=== PATIENT | female | born 1955 | race Caucasian/White ===

== ENCOUNTER 2017-04-25 13:59 | Inpatient (IN) | payer BC ==
[~2017-04-25] VITALS: Ht 172.7 cm; Wt 78.7 kg
[2017-04-25] MEDS ORDERED: fentaNYL INJECTION 100 MCG/2 ML AMP ONE ×3 (15:12→20:31)
[2017-04-25 15:17] LABS: BASOPHILS % (AUTO) 0 % (0-10); EOSINOPHILS % (AUTO) 1 % (0-10); LYMPHOCYTES # (AUTO) 1.4 X 10^3 (1.0-4.0); LYMPHOCYTES % (AUTO) 23 % (12-44); MEAN CORPUSCULAR HEMOGLOBIN 30 PG (25-34); MEAN CORPUSCULAR HGB CONC 34 G/DL (32-36); MEAN CORPUSCULAR VOLUME 88 FL (80-99); MEAN PLATELET VOLUME 10.7 FL (7.4-10.4); MONOCYTES # (AUTO) 0.2 X 10^3 (0.0-1.0); MONOCYTES % (AUTO) 4 % (0-12); NEUTROPHILS # (AUTO) 4.6 X 10^3 (1.8-7.8); NEUTROPHILS % (AUTO) 73 % (42-75); PLATELET COUNT 277 10^3/uL (130-400); RED BLOOD COUNT 6.02 10^6/uL (4.35-5.85); WHITE BLOOD COUNT 6.3 10^3/uL (4.3-11.0)
[2017-04-25 15:34] LABS: KETONES,URINE 1+ (NEGATIVE); LEUKOCYTE ESTERASE ,URINE 1+ (NEGATIVE); NITRITE,URINE NEGATIVE (NEGATIVE); PH,URINE 6 (5-9); PROTEIN,URINE 2+ (NEGATIVE); UROBILINOGEN,URINE 4 MG/DL (NORMAL)
[2017-04-25 15:41] LABS: ALANINE AMINOTRANSFERASE 11 U/L (0-55); ALBUMIN 4.1 G/DL (3.2-4.5); ANION GAP 15 MMOL/L (5-14); ASPARTATE AMINO TRANSFERASE 20 U/L (5-34); BILIRUBIN,TOTAL 0.9 MG/DL (0.1-1.0); BLOOD UREA NITROGEN 16 MG/DL (7-18); BUN/CREATININE RATIO 17; CALCIUM 9.7 MG/DL (8.5-10.1); CARBON DIOXIDE 17 MMOL/L (21-32); CHLORIDE 107 MMOL/L (98-107); CREATININE SERUM 0.93 MG/DL (0.60-1.30); GFR ESTIMATED > 60; GLUCOSE 159 MG/DL (70-105); SODIUM 139 MMOL/L (135-145); TOTAL PROTEIN 7.2 G/DL (6.4-8.2)
[2017-04-25 15:42] LABS: POTASSIUM 4.8 MMOL/L (3.6-5.0)
[2017-04-25 15:43] LABS: BILIRUBIN,URINE 1+ (NEGATIVE)
--- NOTE | 2017-04-25 16:38 | Diagnostic Imaging Report ---
INDICATION: Constipation, abdominal pain. FINDINGS: There is stool in the ascending and transverse colon not grossly pathologic. The left colon and rectosigmoid did not show any substantial stool load. There is leftward convexity rotoscoliotic curvature. No acute bony abnormalities. There are clips in the right upper quadrant. No suspicious calculi. IMPRESSION: Proximal colonic stool not convincingly pathologic. No findings of impaction or bowel obstruction. Dictated by: Dictated on workstation # [id number]
[2017-04-25] MEDS ORDERED: ONDANSETRON 4 MG/2 ML (SDV) Z0FRAN IVP ONE (17:30)
[2017-04-25] MEDS ORDERED: MINERAL OIL CONCENTRATE 99.9% 15 ML UDC PO ONE (17:30)
--- NOTE | 2017-04-25 17:30 | ED Abdominal Pain ---
General Chief Complaint: Abdominal/GI Problems Stated Complaint: ABD PAIN Nursing Triage Note: c/o low abd pain. Onset this morning. Pt has not a had a normal BM the last few days. Sepsis Screen: No Definite Risk Source of Information: Patient Exam Limitations: No Limitations (SAM FULTON MD) History of Present Illness Time Seen By Provider: 17:25 Initial Comments The patient is a 61-year-old white female who was brought by family today as she is becoming very anxious over abdominal pain and the lack of bowel movement. She has taken suppositories to aid in bowel habits for years. She does not use narcotics. She has not had a bowel movement in 2 days or more and reports that that one was small at any rate. Her family states that she struggles and struggles and often has a very small bowel movement which is usually followed by a more satisfactory bowel movement. She takes Rythmol to control episodes of SVT. This seems to work better than anything else. She had attempts at ablation several years ago and more than 10 foci of electrical impulses were identified. Timing/Duration: 2-3 Days Severity/Quality: Moderate, Severe, Cramping, Stabbing Location: Generalized Abdomen (SAM FULTON MD) Allergies and Home Medications Allergies Coded Allergies: ciprofloxacin (Verified Allergy, Mild, 04/25/17) lisinopril (Verified Allergy, Mild, 04/25/17) cefuroxime (Verified Allergy, Unknown, 04/25/17) Home Medications Estradiol 1 Mg Tablet, 1 MG PO DAILY, #45 (Reported) Levothyroxine Sodium 75 Mcg Tablet, 75 MCG PO, #30 (Reported) Olmesartan Medoxomil 40 Mg Tablet, 40 MG PO DAILY, (Reported) Propafenone HCl 225 Mg Tablet, 225 MG PO TID, #270 (Reported) Simvastatin 20 Mg Tablet, 20 MG PO DAILY, #30 (Reported) Terazosin HCl 1 Mg Capsule, 1 MG PO DAILY, #30 (Reported) Review of Systems Constitutional: see HPI EENTM: No Symptoms Reported Respiratory: No Symptoms Reported Cardiovascular: Palpitations Gastrointestinal: Abdominal Pain, Constipated Musculoskeletal: no symptoms reported Skin: no symptoms reported Psychiatric/Neurological: No Symptoms Reported (SAM FULTON MD) Past Egvlnsv-Lvtgqt-Aabxai Hx Patient Social History Alcohol Use: Denies Use Recreational Drug Use: No Smoking Status: Unknown if Ever Smoked Recent Foreign Travel: No Contact w/Someone Who Travel: No Recent Infectious Disease Expo: No (SAM FULTON MD) Surgeries HX Surgeries: Yes Surgeries: Abdominal, Appendectomy, Cardiac (ablation for SVT), Gallbladder, Hysterectomy, Orthopedic (thumb release, carpal tunnel), Renal (renal stent), Thyroidectomy (LOUIS MACKEY MD) Cardiovascular Hx Cardiac Disorders: Yes (SVT status post ablation) Cardiac Disorders: Hypertension (LOUIS MACKEY MD) Endocrine Endocrine Disorders: Hypothyroidsim (LOUIS MACKEY MD) Physical Exam Vital Signs VS - Last 72 Hours, by Label 04/25/17 04/25/17 15:00 15:18 Temp 98.2 96.9 Pulse 70 Resp 16 B/P (MAP) 138/96 O2 Delivery Room Air Capillary Refill : Less Than 3 Seconds General Appearance: moderate distress, severe distress HEENT: normal ENT inspection Neck: full range of motion Respiratory: chest non-tender, lungs clear, normal breath sounds, no respiratory distress, no accessory muscle use Cardiovascular: normal peripheral pulses, regular rate, rhythm, no edema, no gallop, no JVD, no murmur Gastrointestinal: other (the patient would only lie on her left side. 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0 10^3/uL Red Blood Count 6.02 H 4.35-5.85 10^6/uL Hemoglobin 17.8 H 11.5-16.0 G/DL Hematocrit 53 H 35-52 % Mean Corpuscular Volume 88 80-99 FL Mean Corpuscular Hemoglobin 30 25-34 PG Mean Corpuscular Hemoglobin Concent 34 32-36 G/DL Red Cell Distribution Width 13.0 10.0-14.5 % Platelet Count 277 130-400 10^3/uL Mean Platelet Volume 10.7 H 7.4-10.4 FL Neutrophils (%) (Auto) 73 42-75 % Lymphocytes (%) (Auto) 23 12-44 % Monocytes (%) (Auto) 4 0-12 % Eosinophils (%) (Auto) 1 0-10 % Basophils (%) (Auto) 0 0-10 % Neutrophils # (Auto) 4.6 1.8-7.8 X 10^3 Lymphocytes # (Auto) 1.4 1.0-4.0 X 10^3 Monocytes # (Auto) 0.2 0.0-1.0 X 10^3 Eosinophils # (Auto) 0.0 0.0-0.3 10^3/uL Basophils # (Auto) 0.0 0.0-0.1 10^3/uL Sodium Level 139 135-145 MMOL/L Potassium Level 4.8 3.6-5.0 MMOL/L Chloride Level 107 98-107 MMOL/L Carbon Dioxide Level 17 L 21-32 MMOL/L Anion Gap 15 H 5-14 MMOL/L Blood Urea Nitrogen 16 7-18 MG/DL Creatinine 0.93 0.60-1.30 MG/DL Estimat Glomerular Filtration Rate > 60 BUN/Creatinine Ratio 17 Glucose Level 159 H 70-105 MG/DL Calcium Level 9.7 8.5-10.1 MG/DL Total Bilirubin 0.9 0.1-1.0 MG/DL Aspartate Amino Transf (AST/SGOT) 20 5-34 U/L Alanine Aminotransferase (ALT/SGPT) 11 0-55 U/L Alkaline Phosphatase 77 40-136 U/L Total Protein 7.2 6.4-8.2 G/DL Albumin 4.1 3.2-4.5 G/DL Urine Color YELLOW Urine Clarity CLEAR Urine pH 6 5-9 Urine Specific [place] 1.025 H 1.016-1.022 Urine Protein 2+ H NEGATIVE Urine Glucose (UA) NEGATIVE NEGATIVE Urine Ketones 1+ H NEGATIVE Urine Nitrite NEGATIVE NEGATIVE Urine Bilirubin 1+ H NEGATIVE Urine Urobilinogen 4 H NORMAL MG/DL Urine Leukocyte Esterase 1+ H NEGATIVE Urine RBC (Auto) 1+ H NEGATIVE Urine RBC NONE /HPF Urine WBC NONE /HPF Urine Squamous Epithelial Cells 2-5 /HPF Urine Crystals NONE /LPF Urine Bacteria TRACE /HPF Urine Casts NONE /LPF Urine Mucus NEGATIVE /LPF Urine Culture Indicated NO My Orders Orders - SAM FULTON MD Cbc With Automated Diff (04/25/17 14:04) Comprehensive Metabolic Panel (04/25/17 14:04) Ua Culture If Indicated (04/25/17 14:04) Fentanyl Injection (Sublimaze Injection (04/25/17 15:12) Abdomen/Kub 1view (04/25/17 16:06) Normal Saline 1l Iv (04/25/17 17:30) Ondansetron Injection (Zofran Injectio (04/25/17 17:30) Mineral Oil Concentrate 99.9% (Mineral O (04/25/17 17:30) Medications Given in ED Current Medications Medications Dose Ordered Sig/Michelle Route Start Time Stop Time Status Last Admin Dose Admin Fentanyl Citrate 100 mcg STK-MED ONCE .ROUTE 04/25/17 15:12 04/25/17 15:16 DC 04/25/17 15:18 100 MCG Vital Signs/I&O Vital Sign - Last 12Hours 04/25/17 04/25/17 15:00 15:18 Temp 98.2 96.9 Pulse 70 Resp 16 B/P (MAP) 138/96 O2 Delivery Room Air Blood Pressure Mean: 110 (SAM FULTON MD) Lab Results Laboratory Tests Test 04/25/17 15:10 04/25/17 15:25 04/25/17 19:27 Range/Units White Blood Count 6.3 4.3-11.0 10^3/uL Red Blood Count 6.02 H 4.35-5.85 10^6/uL Hemoglobin 17.8 H 11.5-16.0 G/DL Hematocrit 53 H 35-52 % Mean Corpuscular Volume 88 80-99 FL Mean Corpuscular Hemoglobin 30 25-34 PG Mean Corpuscular Hemoglobin Concent 34 32-36 G/DL Red Cell Distribution Width 13.0 10.0-14.5 % Platelet Count 277 130-400 10^3/uL Mean Platelet Volume 10.7 H 7.4-10.4 FL Neutrophils (%) (Auto) 73 42-75 % Lymphocytes (%) (Auto) 23 12-44 % Monocytes (%) (Auto) 4 0-12 % Eosinophils (%) (Auto) 1 0-10 % Basophils (%) (Auto) 0 0-10 % Neutrophils # (Auto) 4.6 1.8-7.8 X 10^3 Lymphocytes # (Auto) 1.4 1.0-4.0 X 10^3 Monocytes # (Auto) 0.2 0.0-1.0 X 10^3 Eosinophils # (Auto) 0.0 0.0-0.3 10^3/uL Basophils # (Auto) 0.0 0.0-0.1 10^3/uL Sodium Level 139 135-145 MMOL/L Potassium Level 4.8 3.6-5.0 MMOL/L Chloride Level 107 98-107 MMOL/L Carbon Dioxide Level 17 L 21-32 MMOL/L Anion Gap 15 H 5-14 MMOL/L Blood Urea Nitrogen 16 7-18 MG/DL Creatinine 0.93 0.60-1.30 MG/DL Estimat Glomerular Filtration Rate > 60 BUN/Creatinine Ratio 17 Glucose Level 159 H 70-105 MG/DL Calcium Level 9.7 8.5-10.1 MG/DL Magnesium Level 2.3 1.8-2.4 MG/DL Total Bilirubin 0.9 0.1-1.0 MG/DL Aspartate Amino Transf (AST/SGOT) 20 5-34 U/L Alanine Aminotransferase (ALT/SGPT) 11 0-55 U/L Alkaline Phosphatase 77 40-136 U/L C-Reactive Protein High Sensitivity 0.31 0.00-0.50 MG/DL Total Protein 7.2 6.4-8.2 G/DL Albumin 4.1 3.2-4.5 G/DL Lipase 8 8-78 U/L Urine Color YELLOW Urine Clarity CLEAR Urine pH 6 5-9 Urine Specific [place] 1.025 H 1.016-1.022 Urine Protein 2+ H NEGATIVE Urine Glucose (UA) NEGATIVE NEGATIVE Urine Ketones 1+ H NEGATIVE Urine Nitrite NEGATIVE NEGATIVE Urine Bilirubin 1+ H NEGATIVE Urine Urobilinogen 4 H NORMAL MG/DL Urine Leukocyte Esterase 1+ H NEGATIVE Urine RBC (Auto) 1+ H NEGATIVE Urine RBC NONE /HPF Urine WBC NONE /HPF Urine Squamous Epithelial Cells 2-5 /HPF Urine Crystals NONE /LPF Urine Bacteria TRACE /HPF Urine Casts NONE /LPF Urine Mucus NEGATIVE /LPF Urine Culture Indicated NO My Orders Orders - LOUIS MACKEY MD Fentanyl Injection (Sublimaze Injection (04/25/17 18:30) Fentanyl Injection (Sublimaze Injection (04/25/17 18:24) Ct Abdomen/Pelvis W (04/25/17 18:28) Iohexol Injection (Omnipaque 350 Mg/Ml 1 (04/25/17 18:30) Ns (Ivpb) (Sodium Chloride 0.9% Ivpb Bag (04/25/17 18:30) Hs C Reactive Protein (04/25/17 18:34) Lipase (04/25/17 18:34) Magnesium (04/25/17 18:34) Fentanyl Injection (Sublimaze Injection (04/25/17 19:00) Blood Culture (04/25/17 19:01) Lactic Acid Analyzer (04/25/17 19:01) Levofloxacin 750 Mg/150 Ml Iv (Levaquin (04/25/17 19:15) Metronidazole 500mg/100ml Ivpb (Flagyl 5 (04/25/17 19:15) Hydromorphone Injection (Dilaudid Inject (04/25/17 19:05) Saline Lock/Iv-Start (04/25/17 19:05) Lactated Ringers (Lr 1000 Ml Iv Solution (04/25/17 19:50) Medications Given in ED Current Medications Medications Dose Ordered Sig/Michelle Route Start Time Stop Time Status Last Admin Dose Admin Fentanyl Citrate 50 mcg ONCE ONCE IVP 04/25/17 18:30 04/25/17 18:31 DC 04/25/17 18:32 50 MCG Fentanyl Citrate 50 mcg ONCE ONCE IVP 04/25/17 19:00 04/25/17 19:01 DC 04/25/17 19:00 50 MCG Fentanyl Citrate 100 mcg STK-MED ONCE .ROUTE 04/25/17 15:12 04/25/17 15:16 DC 04/25/17 15:18 100 MCG Iohexol 100 ml ONCE ONCE IV 04/25/17 18:30 04/25/17 18:31 DC 04/25/17 18:57 100 ML Levofloxacin/ Dextrose 150 ml @ 100 mls/hr ONCE ONCE IV 04/25/17 19:15 04/25/17 19:50 DC 04/25/17 19:28 100 MLS/HR Metronidazole 100 ml @ 100 mls/hr ONCE ONCE IV 04/25/17 19:15 04/25/17 19:50 DC 04/25/17 19:22 100 MLS/HR Mineral Oil 30 ml ONCE ONCE PO 04/25/17 17:30 04/25/17 17:31 DC 04/25/17 17:55 30 ML Ondansetron HCl 8 mg ONCE ONCE IVP 04/25/17 17:30 04/25/17 17:31 DC 04/25/17 17:38 8 MG Sodium Chloride 100 ml ONCE ONCE IV 04/25/17 18:30 04/25/17 18:31 DC 04/25/17 18:57 80 ML Vital Signs/I&O Vital Sign - Last 12Hours 04/25/17 04/25/17 04/25/17 04/25/17 15:00 15:18 18:31 18:32 Temp 98.2 96.9 96.9 96.9 Pulse 70 Resp 16 B/P (MAP) 138/96 O2 Delivery Room Air 04/25/17 19:00 Temp 96.9 (LOUIS MACKEY MD) Progress Note #1: Time: 18:30 Progress Note Case reviewed and care of this patient was assumed from Dr. Fulton at this time. Labs and x-rays reviewed. Patient appears hypovolemic based on lab review. IV fluids are infusing. Initial vital signs were normal. WBC is normal and patient is afebrile. Patient is still in significant pain. Narcotics were previously avoided due to suspicion of constipation but are now deemed necessary to control patients pain to make CT imaging tolerable. Patient was re-examined and found to have significant TTP of the lower abdomen, even with light palpation. BS are decreased. Lungs are clear but patient is splinting. CT pending. Fentanyl 50 mcg was ordered to be given before CT. Progress Note #2: Time: 19:[address] scan revealed bowel perforation, possibly at the splenic flexure. Patient has now been treated with fentanyl 150 g and Dilaudid 1 mg. Levaquin and Flagyl have been ordered. Patient has a cephalosporin allergy. A second line has been placed. Dr. Ng has been notified and will present to the emergency room to evaluate the patient. Blood cultures and lactic acid are being drawn. Progress Note #3: Time: 20:[address] Ng is present in the ER with patient now. Patient has developed sinus tachycardia. Additional IV fluids have been ordered. Dr. Ng's plans to take patient emergently to the operating room. He has discussed case with patient and family. He is assuming care at this time. (LOUIS MACKEY MD) ECG Initial ECG Impression Date: April 25, 2017 Initial ECG Impression Time: 19:42 Initial ECG Rate: 134 Initial ECG Rhythm: S.Tach Comment Sinus tachycardia with subtle ST depression. Left anterior fascicular block by automated read. (LOUIS MACKEY MD) Diagnostic Imaging Diagonstic Imaging: Xray Plain Films/CT/US/NM/MRI: abdomen, pelvis Comments KUB viewed by me and report reviewed. See report below: NAME: NAE IBANEZ [facility] REC#: [id number] PT STATUS: REG ER : 1955 PHYSICIAN: SAM FULTON MD ADMIT DATE: 04/25/17/ER Signed Date of Exam:04/25/17 ABDOMEN/KUB 1VIEW INDICATION: Constipation, abdominal pain. FINDINGS: There is stool in the ascending and transverse colon not grossly pathologic. The left colon and rectosigmoid did not show any substantial stool load. There is leftward convexity rotoscoliotic curvature. No acute bony abnormalities. There are clips in the right upper quadrant. No suspicious calculi. IMPRESSION: Proximal colonic stool not convincingly pathologic. No findings of impaction or bowel obstruction. Dictated by: Dictated on workstation # [id number] Dict: 04/25/17 1633 Trans: 04/25/17 1643 [id number] Interpreted by: JOCELINE MEJIA Electronically signed by: JOCELINE MEJIA 04/25/17 1643 Diagonstic Imaging: CT Plain Films/CT/US/NM/MRI: abdomen, pelvis Comments CT scans viewed by me and discussed with radiologist. Report reviewed. See report below: NAME: NAE IBANEZ [facility] REC#: [id number] PT STATUS: REG [facility] [place] : 1955 PHYSICIAN: LOUIS MACKEY MD ADMIT DATE: 04/25/17/[facility] [place] Signed Date of Exam: 04/25/17 CT ABDOMEN/PELVIS W INDICATION: Constipation with severe abdominal pain since yesterday. COMPARISON STUDY: KUB from earlier today. FINDINGS: The examination demonstrates ascites and free air in the abdomen. This appears to be emanating from the region of the splenic flexure of the colon. Bowel wall thickening is seen within the colon and small bowel. This is fairly high density and could also be hemorrhage within the bowel wall. A hiatal hernia is present. Mild atelectasis is present. Gallbladder is absent. No portal venous gas is present. The spleen, pancreas, adrenal glands and kidneys appear normal. Degenerative changes are present in the spine. Urinary bladder is normal. The uterus is absent. No hernia is present. IMPRESSION: Ruptured bowel possibly in the region of the splenic flexure of the colon. Bowel wall thickening is seen within the small and large bowel with questionable hemorrhage in the bowel wall. This could also be due to infection or ischemia. Findings were called to the emergency room physician by Frank Stokes. Dictated by: Dictated on workstation # [id number] Dict: 04/25/171903 Trans: 04/25/172156 Interpreted by: VIC KIDD MD Electronically signed by: VIC KIDD MD 04/25/172156 (LOUIS MACKEY MD) Departure Communication Progress Notes KUB showed no stool in the rectal vault. There was stool noted to the right colon. Chemistries were negative. (SAM FULTON MD) Impression Impression: Primary Impression: Bowel perforation Additional Impressions: Abdominal pain Qualified Codes: R10.84 - Generalized abdominal pain Acute peritonitis Hypovolemia Disposition: ADMITTED INPATIENT Condition: Improved Decision to Admit Reason: Admit from ER (General) Decision to Admit/Date: April 25, 2017 Time/Decision to Admit Time: 19:00 (LOUIS MACKEY MD) Departure-Patient Inst. Referrals: MT REEDER MD (PCP) Primary Care Physician SAM FULTON MD April 25, 2017 17:30 LOUIS MACKEY MD April 25, 2017 18:33
[2017-04-25] MEDS: NS IV 1000 ML 1,000 ML IV SCH (17:39)
[2017-04-25] MEDS ORDERED: NS 100 ML (IVPB) BAG IV ONE (18:30)
[2017-04-25] MEDS ORDERED: fentaNYL INJECTION 100 MCG/2 ML AMP IVP ONE ×2 (18:30→19:00)
[2017-04-25] MEDS ORDERED: IOHEXOL 350 MG/ML 100 ML (OMNIPAQUE 350) VIAL IV ONE (18:30)
[2017-04-25 18:52] LABS: MAGNESIUM 2.3 MG/DL (1.8-2.4); hs C REACTIVE PROTEIN 0.31 MG/DL (0.00-0.50)
[2017-04-25] MEDS ORDERED: HYDROmorphone (DILAUDID) 2 MG/ML VIAL IVP STA (19:05)
[2017-04-25] MEDS ORDERED: LEVOFLOXACIN 750 MG/150 ML IV 150 ML IV ONE (19:15)
[2017-04-25] MEDS ORDERED: metroNIDAZOLE 500MG/100ML IVPB 100 ML IV ONE ×2 (19:15→22:45)
--- NOTE | 2017-04-25 19:16 | Diagnostic Imaging Report ---
INDICATION: Constipation with severe abdominal pain since yesterday. COMPARISON STUDY: KUB from earlier today. FINDINGS: The examination demonstrates ascites and free air in the abdomen. This appears to be emanating from the region of the splenic flexure of the colon. Bowel wall thickening is seen within the colon and small bowel. This is fairly high density and could also be hemorrhage within the bowel wall. A hiatal hernia is present. Mild atelectasis is present. Gallbladder is absent. No portal venous gas is present. The spleen, pancreas, adrenal glands and kidneys appear normal. Degenerative changes are present in the spine. Urinary bladder is normal. The uterus is absent. No hernia is present. IMPRESSION: Ruptured bowel possibly in the region of the splenic flexure of the colon. Bowel wall thickening is seen within the small and large bowel with questionable hemorrhage in the bowel wall. This could also be due to infection or ischemia. Findings were called to the emergency room physician by Frank Stokes. Dictated by: Dictated on workstation # [id number]
[2017-04-25] MEDS ORDERED: LACTATED RINGERS 1,000 ML IV ONE ×4 (19:50→21:27)
--- NOTE | 2017-04-25 20:05 | History & Physicial ---
History of Present Illness History of Present Illness Reason for visit/HPI L sided abdominal pain for 3 days, more severe today. Exam and CT show diffuse peritonitis, possibly due to colonic perforation Date of Admission I consulted on this patient on 04/25/17 20:00 Attending Physician Admitting Physician Mike Horvath MD Consult Allergies and Home Medications Allergies Coded Allergies: cefuroxime (Verified Allergy, Unknown, 04/25/17) Past Lobscng-Kcquky-Mfpmqu Hx Patient Social History Marrital Status: Employed/Student: retired Alcohol Use: Denies Use Recreational Drug Use: No Smoking Status: Unknown if Ever Smoked Recent Foreign Travel: No Contact w/other who traveled: No Recent Infectious Disease Expo: No Surgeries Surgeries: Cardiac, Gallbladder, Hysterectomy, Thyroidectomy Respiratory Hx Respiratory Disorders: No Cardiovascular Hx Cardiovascular Disorders: Yes Cardiac Disorders: Atrial Fibrillation, High Cholesterol, Hypertension, Irregular Heartbeat, Palpitations Neurological Hx Neurological Disorders: No Reproductive System : No Genitourinary Hx Genitourinary Disorders: No Musculoskeletal Hx Musculoskeletal Disorders: Yes Cancer Hx Cancer: No Psychosocial Hx Psychiatric Problems: No Constitutional: chills, malaise, weakness EENTM: no symptoms reported Respiratory: no symptoms reported Cardiovascular: palpitations Gastrointestinal: LLQ, abdominal pain (LLQ), constipation Genitourinary: no symptoms reported : No Musculoskeletal: no symptoms reported Skin: no symptoms reported Psychiatric/Neurological: No Symptoms Reported Physical Exam Vital Signs Vital Sign - Last 12Hours 04/25/17 15:00 Temp 98.2 Pulse 70 Resp 16 B/P (MAP) 138/96 O2 Delivery Room Air Capillary Refill : Less Than 3 Seconds General Appearance: Severe Distress HEENT: Normal ENT Inspection Neck: Normal Inspection Respiratory: Lungs Clear Cardiovascular: Tachycardia Gastrointestinal: Distended, Rebound, Tenderness Rectal: Deferred Back: Normal Inspection Neurologic/Psychiatric: Disoriented x3 Skin: Cool Lymphatic: No Adenopathy Comments Lower midline scar. Diffuse tenderness due to perforation peritonitis Assessment/Plan Assessment and Plan Perforation peritonitis, possibly colonic. For prompt laparoscopic resection with central line placement. Post-op ventilatory support anticipated. Risk of mortality highlighted as well. Problems: MACY TALAVERA MD April 25, 2017 20:05
--- NOTE | 2017-04-25 20:08 | Progress Note-Pre Operative ---
Pre-Operative Progress Note H&P Reviewed The H&P was reviewed, patient examined and no changes noted. Date H&P Reviewed: April 25, 2017 Time H&P Reviewed: 20:08 Pre-Operative Diagnosis: Peritonitis due to perforated hollow viscus MACY TALAVERA MD April 25, 2017 20:08
[2017-04-25] MEDS ORDERED: SIMV20TA3 PO (20:27)
[2017-04-25] MEDS ORDERED: OLME40TA12 PO (20:27)
[2017-04-25] MEDS ORDERED: ESTR1TAB24 PO (20:27)
[2017-04-25] MEDS ORDERED: PROP225T2 PO (20:27)
[2017-04-25] MEDS ORDERED: TERA1CAP3 PO (20:27)
[2017-04-25] MEDS ORDERED: LEVO75TA6 PO (20:27)
[2017-04-25] MEDS ORDERED: SUCCINYLCHOLINE INJ 100 MG/5 ML SYR ONE (20:31)
[2017-04-25] MEDS ORDERED: ROCURONIUM 50 MG/5 ML (ZEMURON) VIAL IV ONE ×2 (20:31→23:34)
[2017-04-25] MEDS ORDERED: SEVOFLURANE (ULTANE) 15 ML INHAL SOLN ONE ×10 (20:31→23:32)
[2017-04-25] MEDS ORDERED: proPOfol 200 MG/20 ML (DIPRIVAN) VIAL IV ONE (20:31)
[2017-04-25] MEDS ORDERED: MIDAZOLAM 2 MG/2 ML (VERSED) VIAL ONE (20:31)
[2017-04-25] MEDS ORDERED: LIDOCAINE PF 2% 10 ML (XYLOCAINE) AMP ONE (20:31)
[2017-04-25] MEDS ORDERED: HEParin (CENTRAL IV FLUSH) 500 UNIT/5 ML SYR ONE (20:34)
[2017-04-25] MEDS ORDERED: BUP/EPI 0.25% 1:200,000 (MARCAINE) 30 ML VIAL ONE (20:34)
[2017-04-25] MEDS: LACTATED RINGERS 1,000 ML IV PRN ×10 (20:45→23:37)
[2017-04-25] MEDS ORDERED: PHENYLEPHRINE 100 MCG/ML 10 ML (ANESTHESIA) SYR ONE (20:55)
[2017-04-25] MEDS ORDERED: NS IV 500 ML 500 ML ONE ×2 (21:27→23:28)
[2017-04-25] MEDS ORDERED: MEPERIDINE (DEMEROL) INJ 50 MG/ML ONE (21:48)
[2017-04-25] MEDS ORDERED: morphine INJ 10 MG/ML 1ML (SYR OR VIAL) ONE (21:48)
[2017-04-25] MEDS ORDERED: DOPamine DRIP 250 ML IV ONE (22:31)
[2017-04-25] MEDS ORDERED: DOBUTamine DRIP 250 ML IV ONE (22:31)
[2017-04-25] MEDS ORDERED: ALBUMIN 25% 25 GM/100 ML 100 ML IV ONE (22:33)
[2017-04-25] MEDS ORDERED: CLINDAMYCIN 600 MG/4ML (CLEOCIN) VIAL ONE (22:42)
[2017-04-25] MEDS ORDERED: metroNIDAZOLE 500MG/100ML IVPB 100 ML ONE (22:42)
[2017-04-25] MEDS ORDERED: CLINDAMYCIN 600 MG/4ML (CLEOCIN) VIAL IV ONE (22:45)
[2017-04-25] MEDS ORDERED: PHENYLEPHRINE INJ 10 MG/ML (NEO-SYNEPHRINE 1%) ONE (23:28)
--- NOTE | 2017-04-25 23:31 | Progress Note-Post Operative ---
Post-Operative Progess Note Surgeon (s)/Colorer (s) Surgeon MACY TALAVERA MD Colorer: Not applicable Pre-Operative Diagnosis Peritonitis due to perforated hollow viscus Post-Operative Diagnosis 1.Sigmoid colon perforation 2. Fecal peritonitis Procedure & Operative Findings Date of Procedure 04/25/17 Procedure Performed/Findings Central line placement under ultrasound guidance Laparoscopic Sim's procedure lAPAROSCOPIC MOBILIZATION OF splenic flexure Anesthesia Type Gen. Estimated Blood Loss Estimated blood loss (mL): 50 mL Specimens/Packing Specimens Removed perforated sigmoid colon MACY TALAVERA MD April 25, 2017 11:31 pm
[2017-04-25] MEDS ORDERED: ONDANSETRON 4 MG/2 ML (SDV) Z0FRAN IVP PRN (23:45)
[2017-04-25 23:50] VITALS: BP 113/40
[2017-04-26] VITALS (84 sets, daily range): BP systolic 83–173; BP diastolic 38–76
[2017-04-26] MEDS ORDERED: DOPamine DRIP 250 ML IV SCH
[2017-04-26] MEDS ORDERED: NS IV 500 ML 500 ML ONE (00:34)
[2017-04-26] MEDS: NS IV 1000 ML 1,000 ML IV SCH (01:00)
[2017-04-26 01:23] LABS: ABG BASE EXCESS -11.5 MMOL/L (-2.5-2.5); ABG OXYGEN SATURATION 92 % (94-100); ABG PCO2 51 MMHG (35-45); ABG PO2 68 MMHG (79-93); ABG TCO2 18.1 MMOL/L (21.0-31.0)
[2017-04-26 01:25] LABS: ALLENS TEST ART LINE
[2017-04-26 01:27] LABS: ABG PH 7.12 (7.37-7.43)
[2017-04-26 02:22] LABS: BASOPHILS % (AUTO) 0 % (0-10); EOSINOPHILS % (AUTO) 2 % (0-10); LYMPHOCYTES # (AUTO) 0.5 X 10^3 (1.0-4.0); LYMPHOCYTES % (AUTO) 35 % (12-44); MEAN CORPUSCULAR HEMOGLOBIN 29 PG (25-34); MEAN CORPUSCULAR HGB CONC 33 G/DL (32-36); MEAN CORPUSCULAR VOLUME 89 FL (80-99); MEAN PLATELET VOLUME 10.3 FL (7.4-10.4); MONOCYTES # (AUTO) 0.1 X 10^3 (0.0-1.0); MONOCYTES % (AUTO) 8 % (0-12); NEUTROPHILS # (AUTO) 0.8 X 10^3 (1.8-7.8); NEUTROPHILS % (AUTO) 55 % (42-75); PLATELET COUNT 219 10^3/uL (130-400); RED BLOOD COUNT 4.43 10^6/uL (4.35-5.85); RED CELL DISTRIBUTION WIDTH 12.5 % (10.0-14.5); WHITE BLOOD COUNT 1.5 10^3/uL (4.3-11.0)
[2017-04-26 02:49] LABS: ALANINE AMINOTRANSFERASE 15 U/L (0-55); ALBUMIN 2.2 G/DL (3.2-4.5); ANION GAP 10 MMOL/L (5-14); ASPARTATE AMINO TRANSFERASE 18 U/L (5-34); BILIRUBIN,TOTAL 0.7 MG/DL (0.1-1.0); BLOOD UREA NITROGEN 16 MG/DL (7-18); BUN/CREATININE RATIO 21; CALCIUM 7.6 MG/DL (8.5-10.1); CARBON DIOXIDE 14 MMOL/L (21-32); CHLORIDE 112 MMOL/L (98-107); CREATININE SERUM 0.75 MG/DL (0.60-1.30); GFR ESTIMATED > 60; GLUCOSE 149 MG/DL (70-105); PHOSPHORUS 2.1 MG/DL (2.3-4.7); SODIUM 136 MMOL/L (135-145); TOTAL PROTEIN 3.1 G/DL (6.4-8.2)
[2017-04-26 02:51] LABS: MAGNESIUM 0.9 MG/DL (1.8-2.4)
[2017-04-26 03:06] LABS: ABG BASE EXCESS -9.7 MMOL/L (-2.5-2.5); ABG OXYGEN SATURATION 93 % (94-100); ABG PCO2 41 MMHG (35-45); ABG PO2 68 MMHG (79-93); ABG TCO2 17.9 MMOL/L (21.0-31.0)
[2017-04-26 03:07] LABS: ALLENS TEST ART LINE; PATIENT TEMP 97.6
[2017-04-26 03:09] LABS: ABG HCO3 17 MMOL/L (23-27); ABG PH 7.23 (7.37-7.43)
[2017-04-26 03:11] LABS: ABG HCO3 16 MMOL/L (23-27)
[2017-04-26] MEDS ORDERED: POTASSIUM CL 10MEQ/50ML IVPB 250 ML IV ONE (03:18)
[2017-04-26] MEDS ORDERED: MAGNESIUM 1 GM/100 ML IVPB 400 ML IV ONE (03:18)
[2017-04-26] MEDS ORDERED: POTASSIUM CL 10MEQ/50ML IVPB 50 ML IV ONE (03:30)
[2017-04-26] MEDS: fentaNYL INJECTION 100 MCG/2 ML AMP IV PRN ×9 (03:34→21:50)
[2017-04-26] MEDS: POTASSIUM CL 10MEQ/50ML IVPB 50 ML IV SCH ×5 (03:38→06:36)
[2017-04-26] MEDS: MAGNESIUM 1 GM/100 ML IVPB 100 ML IV SCH ×7 (03:38→08:57)
[2017-04-26] MEDS: LACTATED RINGERS 1,000 ML IV PRN ×4 (04:37→16:22)
--- NOTE | 2017-04-26 04:55 | OPERATIVE REPORT ---
DATE OF SERVICE: 04/25/2017 PREOPERATIVE DIAGNOSIS: Pneumoperitoneum due to perforated hollow viscus. POSTOPERATIVE DIAGNOSES: 1. Sigmoid colon perforation. 2. Fecal peritonitis. OPERATION: 1. Ultrasound localization of right internal jugular vein. 2. Central venous catheter placement. 3. Laparoscopic Sim's procedure with end colostomy. 4. Laparoscopic mobilization of splenic flexure. SURGEON: Dr. Cyrus Talavera. ANESTHESIA: General anesthesia. ESTIMATED BLOOD LOSS: 50 mL. FLUIDS: 8 L of crystalloids and 100 mL of albumin. TYPE OF WOUND: Type 4 (dirty wound). INDICATION FOR PROCEDURE: This lady presented with an acute abdomen and was found to have pneumoperitoneum. CT scan was suggestive of perforated sigmoid colon. Following resuscitation, she was offered laparoscopic exploration with a view to addressing the offending segment of perforation. The possibility of creating a colostomy, postoperative ventilatory support, renal failure and a distinct possibility of postoperative mortality were discussed with her and her family members. Informed consent was obtained. DESCRIPTION OF PROCEDURE: The patient was brought to the operating room and general anesthesia induced using an endotracheal tube. She had received Levaquin and Flagyl during the hour preceding surgery, in the emergency room. As the operation got underway, we administered 600 mg of clindamycin and another dose of Flagyl intravenously. Sequential compression device was replaced around her legs, to minimize the risk of venous thrombosis. A Reynolds catheter was placed to monitor urine output during the perioperative period. 1. Central line placement. Right side of the neck was prepared and draped in usual sterile manner. Internal jugular vein was localized using a 10 MHz ultrasound probe and a floppy guidewire introduced into the heart. The subcutaneous tract was gently dilated using a Silastic sheath and a 16 cm long, 7.5 Moldovan, triple-lumen central venous catheter advanced using Seldinger technique. All the channels were aspirated and flushed with heparinized saline. The catheter was then secured using a silk suture and a dressing applied. 2. Laparoscopic Sim's procedure/laparoscopic mobilization of splenic flexure. Abdomen was prepared and draped in the usual sterile manner. A 7 cm incision was made centered on the umbilicus and the fascia incised vertically. Fecal material was encountered. In addition, multiple fecal balls were found along the left paracolic gutter and the pelvis. These were removed manually. Abdominal cavity was irrigated initially with 4 liters of warm saline. Subsequently, a GelPort hand assist device was placed and pneumoperitoneum established using carbon dioxide insufflation to an intraabdominal pressure of 15 mmHg. Two 5 mm trocars were placed over the right side of the abdomen, followed by another 5 mm trocar over the left lower quadrant. Omentum adherent to the undersurface of the previous scar from hysterectomy and the pelvis was taken down using harmonic scalpel, under direct view. Further examination confirmed a large perforation measuring at least 8 cm in diameter involving the distal sigmoid colon. Using a hand assist technique, sigmoid colon was mobilized using harmonic scalpel, continuing along the white line of Toldt along the descending colon, all the way around the splenic flexure. The rectosigmoid junction was then transected using an Endo HEMA, 3.5 mm stapler. Mesocolon was controlled using harmonic scalpel. Once adequate mobilization was achieved, a circular incision was made over the left lower quadrant and the bowel exteriorized. It was gently sutured to the abdominal wall to be fashioned as an end colostomy at the end of the operation. Abdominal cavity was thoroughly irrigated with a total of 10 liters of warm saline. The fascia over the midline incision was closed using #2 Prolene. Subcutaneous tissue and skin were left open in anticipation of wound infection. Two 19-Moldovan Miguel Hernandez drains were left in the pelvis and over the right subdiaphragmatic space respectively. These were secured using 2-0 silk sutures. Sigmoid colon with the perforation was excised and sent for histological examination. The descending colon was then secured to the abdominal wall using 3-0 Vicryl sutures, fashioning an end colostomy. A collection device was then placed. Trocar incisions were closed using jaz. She tolerated the procedure reasonably well, requiring vasopressors. Subsequently, she was taken to the intensive care unit in an intubated, stable condition. [place], sponges and instruments were correct at the end of the operation. Job ID: [id number] DocumentID: [id number] Dictated Date: 04/25/2017 23:39:02 Ship Rigger Apprentice Date: 04/26/2017 02:49:18 Dictated By: CYRUS TALAVERA MD [facility]
[2017-04-26] MEDS: PROPOFOL DRIP (ICU) 100 ML IV SCH ×3 (04:56→21:09)
[2017-04-26] MEDS: KCL 20 MEQ TAB (K-DUR) PO SCH (04:57)
[2017-04-26] MEDS ORDERED: D5W 250 ML (IVPB) 250 ML IV ONE (05:34)
[2017-04-26] MEDS ORDERED: NOREPINEPHRINE 4 MG/4 ML (LEVOPHED) AMP IV ONE (05:34)
[2017-04-26] MEDS: NOREPINEPHRINE 4 MG in D5W 250 ML (IVPB) 250 ML IV SCH ×4 (05:46→14:53)
[2017-04-26] MEDS ORDERED: CLINDAMYCIN INJECTION 600 MG in NS (IVPB) 50 ML IV SCH (06:00)
[2017-04-26] MEDS ORDERED: metroNIDAZOLE 500MG/100ML IVPB 100 ML IV SCH (06:00)
[2017-04-26] MEDS ORDERED: PHENYLEPHRINE INJ 10 MG/ML (NEO-SYNEPHRINE 1%) ONE (07:10)
[2017-04-26] MEDS ORDERED: ONDANSETRON 4 MG/2 ML (SDV) Z0FRAN ONE (07:12)
[2017-04-26] MEDS ORDERED: DEXAMETHASONE PF 10 MG/ML (DECADRON) VIAL ONE (07:12)
[2017-04-26] MEDS ORDERED: CLINDAMYCIN 600 MG/4ML (CLEOCIN) VIAL ONE (07:30)
--- NOTE | 2017-04-26 07:39 | Diagnostic Imaging Report ---
Indication: Intubation. Comparison: None available. Findings: ET tube has tip approximately 2 cm above the guera. Enteric tube has tip terminating in proximal stomach. Proximal sidehole is also within the stomach. Right IJ central venous catheter has tip in the lower SVC. Bilateral perihilar and basilar ill-defined airspace opacities with central vascular indistinctness. Cardiomegaly with probable small bilateral layering pleural effusions. No pneumothorax. Impression: 1. Support devices in satisfactory position. 2. Cardiomegaly with probable pulmonary edema and small bilateral pleural effusions. Dictated by: Dictated on workstation # [id number]
[2017-04-26] MEDS: NS IV SCH ×3 (07:59→12:00)
[2017-04-26] MEDS: PHENYLEPHRINE IV SCH ×3 (07:59→12:00)
[2017-04-26] MEDS: PANTOPRAZOLE 40 MG/10 ML (PROTONIX) VIAL IVP SCH (08:07)
--- NOTE | 2017-04-26 09:21 | Progress Note-Standard ---
Standard Progress Note Progress Notes/Assess & Plan Progress/Assessment & Plan 04/26/17:septic with severe leukopenia. Very poor urine output. On dual vasopressors. Sinus tachycardia. Outcome poor with expected mortality. Central venous pressure around 12. We'll continue to provide fluid resuscitation and maintain vasopressors for now. Final Diagnosis fecal peritonitis due to sigmoid perforation. MACY TALAVERA MD April 26, 2017 09:21
[2017-04-26] MEDS ORDERED: ALBUMIN 25% 25 GM/100 ML 100 ML IV ONE (10:00)
[2017-04-26] MEDS: LACTATED RINGERS 1,000 ML IV SCH ×3 (10:03→20:52)
[2017-04-26] MEDS ORDERED: ALBUMIN 25% 25 GM/100 ML 100 ML IV NR (10:09)
[2017-04-26] MEDS: LEVOTHYROXINE 100 MCG INJ (SYNTHROID) VIAL IV SCH (10:30)
--- NOTE | 2017-04-26 10:39 | Consultation-Cardiology ---
HPI-Cardiology Cardiology Consultation: Date of Consultation 04/26/17 Date of Admission Attending Physician Cyrus Ng MD Admitting Physician Mike Horvath MD Consulting Physician Darshana FOOTE MD HPI: Chief Complaint: History of SVT This is a 61-year-old lady who presented with large bowel perforation, peritonitis and severe septic shock. Emergent surgery was performed yesterday by Dr. Ng. Patient has severe sepsis and is on broad-spectrum antibiotics as well as numerous vasopressors. Blood pressure is still hypotensive. She has sinus tachycardia. She is intubated and ventilated. Patient has history of SVT and was on propafenone as an outpatient. Review of Systems-Cardiology Review of Systems Constitutional: As described under HPI Eyes: As described under HPI Ears/Nose/Throat: As described under HPI Respiratory: As described under HPI Cardiovascular: As described under HPI Gastrointestinal: abdomen distended, abdominal pain Genitourinary: No no symptoms reported, No As described under HPI, No burning, No dysuria, No discharge, No frequency, No flank pain, No hematuria, No incontinence, No pain, No urgency, No other, No urine frequency changes, No urine coloration changes : No Musculoskeletal: No no symptoms reported, No As describe under HPI, No back pain, No gout, No joint pain, No joint swelling, No muscle pain, No muscle stiffness, No neck pain, No other APV-[id number]-Ytxycs Hx Patient Social History Marrital Status: Employed/Student: retired Alcohol Use: Denies Use Recreational Drug Use: No Smoking Status: Unknown if Ever Smoked Recent Foreign Travel: No Recent Infectious Disease Expo: No Physical Abuse Screen: No Sexual Abuse: No Past Medical History PMH As described under Assessment. Allergies and Home Medications Allergies Coded Allergies: ciprofloxacin (Verified Allergy, Mild, 04/25/17) lisinopril (Verified Allergy, Mild, 04/25/17) cefuroxime (Verified Allergy, Unknown, 04/25/17) Home Medications Estradiol 1 Mg Tablet, 1 MG PO DAILY, #45 (Reported) Levothyroxine Sodium 75 Mcg Tablet, 75 MCG PO, #30 (Reported) Olmesartan Medoxomil 40 Mg Tablet, 40 MG PO DAILY, (Reported) Propafenone HCl 225 Mg Tablet, 225 MG PO TID, #270 (Reported) Simvastatin 20 Mg Tablet, 20 MG PO DAILY, #30 (Reported) Terazosin HCl 1 Mg Capsule, 1 MG PO DAILY, #30 (Reported) Physical Exam-Cardiology Physical Exam Vital Signs/I&O Vital Sign - Last 12Hours 04/26/17 04/26/17 04/26/17 04/26/17 01:00 01:00 01:15 01:30 Pulse 132 132 131 137 Resp 14 15 15 B/P (MAP) 106/50 106/52 126/58 117/47 119/50 131/59 Pulse Ox 95 94 94 O2 Flow Rate 75.00 75.00 75.00 04/26/17 04/26/17 04/26/17 04/26/17 01:45 01:53 02:00 02:15 Pulse 125 126 120 108 Resp 14 16 19 19 B/P (MAP) 100/51 109/53 115/59 106/57 105/57 Pulse Ox 93 94 93 95 O2 Flow Rate 75.00 75.00 75.00 FiO2 75 04/26/17 04/26/17 04/26/17 04/26/17 02:30 02:45 03:00 03:15 Pulse 107 110 117 117 Resp 20 22 B/P (MAP) 118/53 141/58 157/61 110/60 117/64 140/67 133/63 Pulse Ox 97 97 99 96 O2 Flow Rate 75.00 75.00 75.00 75.00 04/26/17 04/26/17 04/26/17 04/26/17 03:30 03:45 03:51 04:00 Temp 97.6 Pulse 118 121 120 Resp 24 B/P (MAP) 138/53 122/52 116/47 112/64 95/59 107/54 Pulse Ox 94 94 92 O2 Flow Rate 75.00 75.00 75.00 FiO2 75 04/26/17 04/26/17 04/26/17 04/26/17 04:15 04:19 04:30 04:45 Pulse 122 129 117 116 Resp 25 B/P (MAP) 110/46 91/44 106/47 102/53 100/54 Pulse Ox 92 91 100 100 O2 Flow Rate 75.00 75.00 75.00 FiO2 75 04/26/17 04/26/17 04/26/17 04/26/17 04:56 05:00 05:03 05:07 Pulse 113 111 128 Resp 22 B/P (MAP) 84/44 105/48 84/47 Pulse Ox 100 O2 Flow Rate 75.00 04/26/17 04/26/17 04/26/17 04/26/17 05:15 05:30 05:45 06:00 Pulse 133 120 117 112 Resp B/P (MAP) 105/52 109/52 112/56 118/54 91/45 115/55 107/55 Pulse Ox 100 100 100 100 O2 Flow Rate 75.00 75.00 75.00 75.00 04/26/17 04/26/17 04/26/17 04/26/17 06:15 06:30 06:45 06:52 Pulse 111 108 105 109 Resp B/P (MAP) 95/51 86/46 92/50 94/50 98/52 Pulse Ox 100 100 100 100 O2 Flow Rate 75.00 75.00 75.00 FiO2 75 04/26/17 04/26/17 04/26/17 04/26/17 07:00 07:00 07:15 07:30 Pulse 110 108 111 112 Resp 30 31 B/P (MAP) 109/54 84/49 95/48 Pulse Ox 100 99 100 O2 Flow Rate 75.00 75.00 75.00 04/26/17 04/26/17 04/26/17 04/26/17 07:45 08:00 08:00 08:01 Temp 98.2 Pulse 114 116 115 Resp 31 32 31 B/P (MAP) 83/45 90/51 99/62 Pulse Ox 100 99 99 100 O2 Flow Rate 75.00 60.00 FiO2 60 60 04/26/17 04/26/17 04/26/17 04/26/17 08:15 08:30 08:45 09:00 Pulse 116 118 112 114 Resp 32 31 32 37 B/P (MAP) 102/52 104/53 95/49 108/52 Pulse Ox 100 99 100 98 O2 Flow Rate 60.00 60.00 60.00 60.00 04/26/17 04/26/17 04/26/17 04/26/17 09:15 09:30 10:00 10:15 Pulse 112 112 112 106 Resp 32 31 32 34 B/P (MAP) 94/51 87/49 83/52 Pulse Ox 100 100 96 95 O2 Flow Rate 60.00 60.00 60.00 FiO2 60 04/26/17 04/26/17 04/26/17 04/26/17 10:30 11:00 11:25 11:25 Temp 99.0 Pulse 116 121 Resp 35 33 B/P (MAP) 100/53 102/55 Pulse Ox 94 98 97 O2 Flow Rate 60.00 60.00 FiO2 60 04/26/17 04/26/17 04/26/17 04/26/17 11:30 12:00 12:09 12:30 Pulse 120 121 123 122 Resp 34 41 32 35 B/P (MAP) 111/53 134/59 106/51 Pulse Ox 98 99 100 99 O2 Flow Rate 60.00 60.00 60.00 FiO2 60 Intake and Output 04/25/17 23:59 Intake Total 35045 ml Balance 59290 ml Capillary Refill : Less Than 3 Seconds Constitutional: other (Intubated and ventilated) HEENT: No PERRL, No normal ENT inspection, No TMs normal, No pharynx normal, No scleral icterus (R), No scleral icterus (L), No pale conjunctivae (R), No pale conjunctivae (L), No photophobia, No TM abnormal (R), No TM abnormal (L), No pharyngeal erythema, No tonsillar exudate, No other, No discharge, No EOMI, No hearing is well preserved, No hard of hearing, No oral hygience is good, No ulceration, No xanthelasmas are seen Neck: No non-tender, No full range of motion, No supple, No normal inspection, No carotid bruit, No limited range of motion, No lymphadenopathy (R), No lymphadenopathy (L), No tender lateral, No tender midline, No thyromegaly, No other, No carotid pulses are 2 + bilaterally, No with good upstrokes Respiratory: other (Bilateral air entry) Cardiovascular: tachycardia, S1 and S2, other (No murmur) Gastrointestinal: other (Recent abdominal surgery) Rectal: deferred, other Extremities: no lower extremity edema bilateral Neurologic/Psychiatric: other (Intubated ventilated) Skin: No normal color, No warm/dry, No cyanosis, No cool, No diaphoresis, No damp, No ecchymosis, No jaundice, No mottled, No pallor, No rash, No tattoos/ piercings, No ulcerations, No rash on exposed areas, No ulcerations on exposed areas, No other Lymphatic: no adenopathy Data Review Labs Laboratory Tests 04/25/17 15:10: White Blood Count 6.3, Red Blood Count 6.02H, Hemoglobin 17.8H, Hematocrit 53H, Mean Corpuscular Volume 88, Mean Corpuscular Hemoglobin 30, Mean Corpuscular Hemoglobin Concent 34, Red Cell Distribution Width 13.0, Platelet Count 277, Mean Platelet Volume 10.7H, Neutrophils (%) (Auto) 73, Lymphocytes (%) (Auto) 23 , Monocytes (%) (Auto) 4, Eosinophils (%) (Auto) 1, Basophils (%) (Auto) 0, Neutrophils # (Auto) 4.6, Lymphocytes # (Auto) 1.4, Monocytes # (Auto) 0.2, Eosinophils # (Auto) 0.0, Basophils # (Auto) 0.0, Sodium Level 139, Potassium Level 4.8, Chloride Level 107, Carbon Dioxide Level 17L, Anion Gap 15H, Blood Urea Nitrogen 16, Creatinine 0.93, Estimat Glomerular Filtration Rate > 60, BUN/ Creatinine Ratio 17, Glucose Level 159H, Calcium Level 9.7, Magnesium Level 2.3 , Total Bilirubin 0.9, Aspartate Amino Transf (AST/SGOT) 20, Alanine Aminotransferase (ALT/SGPT) 11, Alkaline Phosphatase 77, C-Reactive Protein High Sensitivity 0.31, Total Protein 7.2, Albumin 4.1, Lipase 8, Free Thyroxine 1.07, TSH Marshall Testing 0.20L 04/25/17 15:25: Urine Color YELLOW, Urine Clarity CLEAR, Urine pH 6, Urine Specific [place] 1.025H, Urine Protein 2+H, Urine Glucose (UA) NEGATIVE, Urine Ketones 1+H, Urine Nitrite NEGATIVE, Urine Bilirubin 1+H, Urine Urobilinogen 4H, Urine Leukocyte Esterase 1+H, Urine RBC (Auto) 1+H, Urine RBC NONE, Urine WBC NONE, Urine Squamous Epithelial Cells 2-5, Urine Crystals NONE, Urine Bacteria TRACE, Urine Casts NONE, Urine Mucus NEGATIVE, Urine Culture Indicated NO 04/26/17 01:10: Blood Gas Puncture Site Liu SANCHEZ, Blood Gas Patient Temperature 96.0, Arterial Blood pH 7.12*L, Arterial Blood Partial Pressure CO2 51H, Arterial Blood Partial Pressure O2 68L, Arterial Blood HCO3 16*L, Arterial Blood Total CO2 18.1L, Arterial Blood Oxygen Saturation 92L, Arterial Blood Base Excess - 11.5L, Brannon Test ART LINE, Blood Gas Ventilator Setting YES, Blood Gas Inspired Oxygen 75%, Lactic Acid Level 7.14*H 04/26/17 02:15: White Blood Count 1.5L, Red Blood Count 4.43, Hemoglobin 13.0#, Hematocrit 40, Mean Corpuscular Volume 89, Mean Corpuscular Hemoglobin 29, Mean Corpuscular Hemoglobin Concent 33, Red Cell Distribution Width 12.5, Platelet Count 219, Mean Platelet Volume 10.3, Neutrophils (%) (Auto) 55, Lymphocytes (%) (Auto) 35 , Monocytes (%) (Auto) 8, Eosinophils (%) (Auto) 2, Basophils (%) (Auto) 0, Neutrophils # (Auto) 0.8L, Lymphocytes # (Auto) 0.5L, Monocytes # (Auto) 0.1, Eosinophils # (Auto) 0.0, Basophils # (Auto) 0.0, Sodium Level 136, Potassium Level 3.0L, Chloride Level 112H, Carbon Dioxide Level 14L, Anion Gap 10, Blood Urea Nitrogen 16, Creatinine 0.75, Estimat Glomerular Filtration Rate > 60, BUN/ Creatinine Ratio 21, Glucose Level 149H, Calcium Level 7.6L, Magnesium Level 0.9 *L, Total Bilirubin 0.7, Aspartate Amino Transf (AST/SGOT) 18, Alanine Aminotransferase (ALT/SGPT) 15, Alkaline Phosphatase 23L, Total Protein 3.1L, Albumin 2.2L, Phosphorus Level 2.1L 04/26/17 03:00: Blood Gas Puncture Site L DANIEL, Blood Gas Patient Temperature 97.6, Arterial Blood pH 7.23*L, Arterial Blood Partial Pressure CO2 41, Arterial Blood Partial Pressure O2 68L, Arterial Blood HCO3 17*L, Arterial Blood Total CO2 17.9L, Arterial Blood Oxygen Saturation 93L, Arterial Blood Base Excess -9.7L, Brannon Test ART LINE, Blood Gas Ventilator Setting YES, Blood Gas Inspired Oxygen 75% 04/26/17 04:15: Lactic Acid Level 4.12*H 04/26/17 06:20: Glucometer 162H 04/26/17 11:52: White Blood Count 2.9L, Red Blood Count 4.33L, Hemoglobin 12.7, Hematocrit 37, Mean Corpuscular Volume 86, Mean Corpuscular Hemoglobin 29, Mean Corpuscular Hemoglobin Concent 34, Red Cell Distribution Width 12.2, Platelet Count 215, Mean Platelet Volume 11.0H, Neutrophils (%) (Auto) 69, Lymphocytes (%) (Auto) 23 , Monocytes (%) (Auto) 4, Eosinophils (%) (Auto) 3, Basophils (%) (Auto) 0, Neutrophils # (Auto) 2.0, Lymphocytes # (Auto) 0.7L, Monocytes # (Auto) 0.1, Eosinophils # (Auto) 0.1, Basophils # (Auto) 0.0, Sodium Level 131L, Potassium Level 3.6, Chloride Level 109H, Carbon Dioxide Level 15L, Anion Gap 7, Blood Urea Nitrogen 20H, Creatinine 1.07, Estimat Glomerular Filtration Rate 52, BUN/ Creatinine Ratio 19, Glucose Level 151H, Calcium Level 7.6L, Magnesium Level 2.4 ECG Impression ECG Initial ECG Rhythm: S.Tach A/P-Cardiology Assessment/Admission Diagnosis Large bowel perforation, fecal peritonitis, severe septic shock. History of SVT and antiarrhythmic therapy Plan Large bowel perforation status post emergent abdominal surgery by Dr. Ng last night. Peritonitis/severe septic shock: On broad-spectrum antibiotics and numerous vasopressors. Patient is still in shock. Prognosis is guarded. Patient in sinus tachycardia which is in response to severe sepsis. History of SVT and was on propafenone. Propafenone is not required at this point in time. No rate controlling agent is recommended. Cardiology will continue to follow. Thank you for your consultation. Please call me if you have any questions. Jung Foote MD, FACP, FACC, FSCAI, FHRS, CCDS Interventional Cardiology Cardiac Electrophysiology Vascular Medicine and Endovascular Interventions Clinical Quality Measures DVT/VTE Risk/Contraindication: Risk Factor Score Per Nursin RFS Level Per Nursing on Admit: 4+=Very High Darshana FOOTE MD April 26, 2017 10:39 am
--- NOTE | 2017-04-26 11:30 | Consultation-Hospitalist ---
HPI History of Present Illness: HPI/Chief Complaint CC: Management of critical illness with acute peritonitis due to bowel perforation with aspiration of bowel contents during intubation HPI: This is a 61-year-old white female clinic patient of Dr. 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 Apparently she was wanting to go to [place] and used to suppository like she usually does because she is struggle with constipation since cardiac meds have been initiated several years ago but at noon time she started having a lot of pain to the extent that required emergency room evaluation. CT scan was obtained found to have bowel perforation with peritonitis and during intubation for surgery she aspirated bowel contents so she now has a diverting colostomy but the pictures during surgery appeared to have a multitude of impacted bowel contents within the abdominal cavity. I did speak with Dr. Horvath her primary care provider and employer and it appears that she is not up-to-date on her colonoscopy and has not had one before and she has had significant constipation issues for the past several years so I hypothesized that impacted stool has been an ongoing problem for her probably stretching the tissue over a long period time and finally rupturing causing this critical illness. She is requiring high doses of Levophed and closely monitoring due to severe sepsis and multisystem organ failure. She has received aggressive IV fluids per protocol and currently monitor closely due to history of arrhythmia maintained on Rythmol as an outpatient. She sees Dr. Ku cardiology at [place] after she failed undergoing ablation up in [place] years ago. I have consulted cardiology and boiler coverer and eICU to facilitate management of this critically ill patient. Source: family, RN/MD Exam Limitations: clinical condition Date Seen 04/26/17 Attending Physician Cyrus Ng MD PCP Mike Horvath MD Referring Physician Date of Admission April 25, 2017 at 23:50 Home Medications & Allergies Home Medications Reviewed patient Home Medication Reconciliation Form Allergies Allergies Coded Allergies ciprofloxacin (Verified Allergy, Mild, 04/25/17) lisinopril (Verified Allergy, Mild, 04/25/17) cefuroxime (Verified Allergy, Unknown, 04/25/17) Past Hnxavhi-Bterty-Dmncyt Hx Patient Social History Marrital Status: Employed/Student: employed ([employer] out [place] [employer] [place] Alcohol Use: Denies Use Recreational Drug Use: No Smoking Status: Unknown if Ever Smoked Physical Abuse Screen: No Sexual Abuse: No Recent Foreign Travel: No Contact w/other who traveled: No Recent Infectious Disease Expo: No Surgeries HX Surgeries: Yes Surgeries: Abdominal, Appendectomy, Cardiac (ablation for SVT), Gallbladder, Hysterectomy, Orthopedic (thumb release, carpal tunnel), Renal (renal stent), Thyroidectomy Respiratory Hx Respiratory Disorders: No Cardiovascular Hx Cardiovascular Disorders: Yes (SVT status post ablation) Cardiac Disorders: Hypertension Neurological Hx Neurological Disorders: No Reproductive System : No Genitourinary Hx Genitourinary Disorders: No Gastrointestinal Hx Gastrointestinal Disorders: Yes Gastrointestinal Disorders: Chronic Constipation Musculoskeletal Hx Musculoskeletal Disorders: Yes Musculoskeletal Disorders: Arthritis Endocrine Hx Endocrine Disorders: Yes Endocrine Disorders: Hypothyroidsim HEENT HX ENT Disorders: No Cancer Hx Cancer: No Psychosocial Hx Psychiatric Problems: No Integumentary HX Skin/Integumentary Disorder: No Review of Systems ROS-Unable to Obtain: pt intubated is source of hx Constitutional: see HPI, weakness Gastrointestinal: abdominal pain (LLQ), loss of appetite, nausea, vomiting Physical Exam Physical Exam Vital Signs Vital Sign - Last 12Hours 04/25/17 04/25/17 15:00 23:50 Temp 98.2 Pulse 70 Resp 16 B/P (MAP) 138/96 O2 Delivery Room Air FiO2 75 Capillary Refill : Less Than 3 Seconds General Appearance: WD/WN, Anxious, Chronically ill, Moderate Distress Eyes: Bilateral Eye Normal Inspection, Bilateral Eye PERRL HEENT: PERRL/EOMI, Normal ENT Inspection, Pharynx Normal, Other (ET tube in place) Neck: Full Range of Motion, Normal Inspection, Non Tender, Supple, Carotid Bruit Respiratory: Chest Non Tender, Normal Breath Sounds, No Accessory Muscle Use, No Respiratory Distress, Decreased Breath Sounds Cardiovascular: Regular Rate, Rhythm, No Edema, No Gallop, No JVD, No Murmur, Normal Peripheral Pulses Gastrointestinal: Abnormal Bowel Sounds, Distended, Guarding, Tenderness (post op), Other (colostomy in place) Back: Normal Inspection, No CVA Tenderness, No Vertebral Tenderness Extremity: Normal Capillary Refill, Normal Inspection, Normal Range of Motion, Non Tender, No Calf Tenderness, No Pedal Edema Neurologic/Psychiatric: Alert, No Motor/Sensory Deficits, Other (able to respond to questions) Skin: Normal Color, Warm/Dry Lymphatic: No Adenopathy Results Results/Procedures Lab Laboratory Tests 04/25/17 15:10 04/26/17 02:15 Assessment/Plan Admission Diagnosis Assessment: Acute peritonitis from colonic perforation with impacted stool with history of severe chronic constipation status post diverting colostomy POD # 1 Aspiration of bowel contents during intubation for surgery with ventilator- dependent respiratory failure currently History of SVT/AF status post attempted ablation an unsuccessful maintained on Rythmol by Dr. Ku cardiology [place] History of hypertension Hypothyroidism Leukopenia due to sepsis Hypokalemia Assessment and Plan Plan: Replace potassium Maintain ventilator Pain control as long as does not worsen hypotension Empiric antibiotics for peritonitis and aspiration of bowel contents Consult cardiology Consult pulmonary boiler coverer Monitor labs Maintain colostomy SCDs Clinical Quality Measures DVT/VTE Risk/Contraindication: Risk Factor Score Per Nursin RFS Level Per Nursing on Admit: 4+=Very High DAVY ROME DO April 26, 2017 11:30
[2017-04-26 11:58] LABS: BASOPHILS % (AUTO) 0 % (0-10); EOSINOPHILS # (AUTO) 0.1 10^3/uL (0.0-0.3); EOSINOPHILS % (AUTO) 3 % (0-10); LYMPHOCYTES # (AUTO) 0.7 X 10^3 (1.0-4.0); LYMPHOCYTES % (AUTO) 23 % (12-44); MEAN CORPUSCULAR HEMOGLOBIN 29 PG (25-34); MEAN CORPUSCULAR HGB CONC 34 G/DL (32-36); MEAN CORPUSCULAR VOLUME 86 FL (80-99); MONOCYTES # (AUTO) 0.1 X 10^3 (0.0-1.0); MONOCYTES % (AUTO) 4 % (0-12); NEUTROPHILS % (AUTO) 69 % (42-75); PLATELET COUNT 215 10^3/uL (130-400); RED BLOOD COUNT 4.33 10^6/uL (4.35-5.85); RED CELL DISTRIBUTION WIDTH 12.2 % (10.0-14.5); WHITE BLOOD COUNT 2.9 10^3/uL (4.3-11.0)
[2017-04-26 12:24] LABS: CALCIUM 7.6 MG/DL (8.5-10.1); CREATININE SERUM 1.07 MG/DL (0.60-1.30); MAGNESIUM 2.4 MG/DL (1.8-2.4); POTASSIUM 3.6 MMOL/L (3.6-5.0)
[2017-04-26 13:49] LABS: ABG OXYGEN SATURATION 99 % (94-100); ABG PCO2 29 MMHG (35-45); ABG PO2 108 MMHG (79-93); ABG TCO2 15.6 MMOL/L (21.0-31.0)
[2017-04-26 13:50] LABS: ABG HCO3 15 MMOL/L (23-27); ABG PH 7.33 (7.37-7.43)
[2017-04-26 13:51] LABS: ALLENS TEST YES-POS; PATIENT TEMP 99.1
[2017-04-26] MEDS ORDERED: VASOPRESSIN INJECTION 20 UNIT in NS (IVPB) 50 ML IM SCH (14:00)
[2017-04-26] MEDS: MEROPENEM 1 GM/NS 100 ML IVPB IV SCH ×4 (14:04→21:49)
[2017-04-26] MEDS: VASOPRESSIN INJECTION 20 UNIT in NS (IVPB) 50 ML IV SCH ×2 (14:07→21:49)
[2017-04-26 14:14] LABS: INR 2.2 (0.8-1.4); PROTHROMBIN TIME PATIENT 23.9 SEC (12.2-14.7)
[2017-04-26 14:23] LABS: ALBUMIN 2.1 G/DL (3.2-4.5); BILIRUBIN,DIRECT 0.3 MG/DL (0.0-0.3); BILIRUBIN,INDIRECT 0.1 MG/DL; BILIRUBIN,TOTAL 0.4 MG/DL (0.1-1.0); PHOSPHORUS 1.2 MG/DL (2.3-4.7)
[2017-04-26] MEDS ORDERED: NS (IVPB) 50 ML ONE (21:37)
[2017-04-26] MEDS ORDERED: VASOPRESSIN INJECTION 20 UNIT/ML VIAL ONE (21:38)
[2017-04-27] VITALS (71 sets, daily range): BP systolic 81–143; BP diastolic 25–98
[2017-04-27] MEDS ORDERED: D5W 250 ML (IVPB) 250 ML IV ONE (02:16)
[2017-04-27] MEDS ORDERED: NOREPINEPHRINE 4 MG/4 ML (LEVOPHED) AMP IV ONE (02:16)
[2017-04-27] MEDS: NOREPINEPHRINE 4 MG in D5W 250 ML (IVPB) 250 ML IV SCH (02:23)
[2017-04-27] MEDS ORDERED: ALBUMIN 25% 25 GM/100 ML 100 ML IV ONE (03:15)
[2017-04-27] MEDS: LACTATED RINGERS 1,000 ML IV SCH ×4 (04:10→23:40)
[2017-04-27 04:57] LABS: BASOPHILS % (AUTO) 0 % (0-10); EOSINOPHILS # (AUTO) 0.1 10^3/uL (0.0-0.3); EOSINOPHILS % (AUTO) 2 % (0-10); LYMPHOCYTES # (AUTO) 0.6 X 10^3 (1.0-4.0); LYMPHOCYTES % (AUTO) 11 % (12-44); MEAN CORPUSCULAR HEMOGLOBIN 29 PG (25-34); MEAN CORPUSCULAR HGB CONC 33 G/DL (32-36); MEAN CORPUSCULAR VOLUME 87 FL (80-99); MEAN PLATELET VOLUME 11.6 FL (7.4-10.4); MONOCYTES # (AUTO) 0.2 X 10^3 (0.0-1.0); MONOCYTES % (AUTO) 4 % (0-12); NEUTROPHILS # (AUTO) 4.4 X 10^3 (1.8-7.8); NEUTROPHILS % (AUTO) 83 % (42-75); PLATELET COUNT 143 10^3/uL (130-400); RED BLOOD COUNT 3.87 10^6/uL (4.35-5.85); RED CELL DISTRIBUTION WIDTH 12.6 % (10.0-14.5); WHITE BLOOD COUNT 5.3 10^3/uL (4.3-11.0)
[2017-04-27 04:59] LABS: INR 2.1 (0.8-1.4); PROTHROMBIN TIME PATIENT 23.5 SEC (12.2-14.7)
[2017-04-27 05:08] LABS: CALCIUM 7.8 MG/DL (8.5-10.1); CREATININE SERUM 1.14 MG/DL (0.60-1.30); MAGNESIUM 2.2 MG/DL (1.8-2.4); PHOSPHORUS 4.4 MG/DL (2.3-4.7); POTASSIUM 4.6 MMOL/L (3.6-5.0)
[2017-04-27] MEDS: KCL 20 MEQ TAB (K-DUR) PO SCH (05:21)
[2017-04-27] MEDS: POTASSIUM CL 10MEQ/50ML IVPB 50 ML IV SCH (05:21)
[2017-04-27] MEDS: MAGNESIUM 1 GM/100 ML IVPB 100 ML IV SCH (05:21)
[2017-04-27] MEDS: NS IV SCH ×2 (05:22→15:18)
[2017-04-27] MEDS: PHENYLEPHRINE IV SCH ×2 (05:22→15:18)
[2017-04-27] MEDS: MEROPENEM 1 GM/NS 100 ML IVPB IV SCH ×6 (05:35→21:29)
[2017-04-27] MEDS: fentaNYL INJECTION 100 MCG/2 ML AMP IV PRN ×4 (05:37→18:15)
--- NOTE | 2017-04-27 06:29 | Pulmonary Consultation ---
History of Present Illness History of Present Illness Date of Consultation 04/27/17 06:24 Date of Admission History of Present Illness 61yo with hx of constipation presented to ED secondary to rapidly progressive abdominal pain. Pt tried using suppository at home prior to arrival secondary to constipation. Pt was in severe pain upon ED admission. Pt was found to have colonic rupture and Dr Ng performed emergency surgery on her. Currently she is requiring levophed and vasopressin for BP support. She has received aggressive IVF and 25gms of albumin last night. She has been on ventilator since surgery. I am consulted for ICU management. Unable to obtain ROS secondary to her being sudated on ventilator. Allergies and Home Medications Allergies Coded Allergies: ciprofloxacin (Verified Allergy, Mild, 04/25/17) lisinopril (Verified Allergy, Mild, 04/25/17) cefuroxime (Verified Allergy, Unknown, 04/25/17) Home Medications Estradiol 1 Mg Tablet, 1 MG PO DAILY, #45 (Reported) Levothyroxine Sodium 75 Mcg Tablet, 75 MCG PO, #30 (Reported) Olmesartan Medoxomil 40 Mg Tablet, 40 MG PO DAILY, (Reported) Propafenone HCl 225 Mg Tablet, 225 MG PO TID, #270 (Reported) Simvastatin 20 Mg Tablet, 20 MG PO DAILY, #30 (Reported) Terazosin HCl 1 Mg Capsule, 1 MG PO DAILY, #30 (Reported) Past Aeslapl-Ypgsgv-Xolbkc Hx Patient Social History Alcohol Use: Denies Use Recreational Drug Use: No Smoking Status: Unknown if Ever Smoked Recent Foreign Travel: No Contact w/Someone Who Travel: No Recent Infectious Disease Expo: No Physical Abuse Screen: No Sexual Abuse: No Surgeries HX Surgeries: Yes Surgeries: Abdominal, Appendectomy, Cardiac (ablation for SVT), Gallbladder, Hysterectomy, Orthopedic (thumb release, carpal tunnel), Renal (renal stent), Thyroidectomy Respiratory Hx Respiratory Disorders: No Cardiovascular Hx Cardiac Disorders: Yes (SVT status post ablation) Cardiac Disorders: Hypertension Neurological Hx Neurological Disorders: No Reproductive System : No Genitourinary Hx Genitourinary Disorders: No Gastrointestinal Hx Gastrointestinal Disorders: Yes Gastrointestinal Disorders: Chronic Constipation Musculoskeletal Hx Musculoskeletal Disorders: Yes Musculoskeletal Disorders: Arthritis Endocrine Hx Endocrine Disorders: Yes Endocrine Disorders: Hypothyroidsim HEENT HX ENT Disorders: No Cancer Hx Cancer: No Psychosocial Hx Psychiatric Problems: No Integumentary HX Skin/Integumentary Disorder: No Exam Exam Vital Signs Date Time Temp Pulse Resp B/P (MAP) Pulse Ox O2 Delivery O2 Flow Rate FiO2 04/27/17 06:12 112 25 100 40 04/27/17 06:00 116 25 124/47 100 40.00 04/27/17 05:45 114 25 118/32 100 40.00 04/27/17 05:30 107 17 120/98 98 40.00 04/27/17 05:15 120 21 138/37 100 40.00 04/27/17 05:00 106 24 143/38 100 40.00 04/27/17 04:30 111 26 142/35 100 40.00 04/27/17 04:20 100 40 04/27/17 04:15 96 26 138/60 100 40.00 04/27/17 04:05 110 28 100 40 04/27/17 04:00 97.2 112 27 100 40.00 128/59 04/27/17 03:45 111 28 100 40.00 129/63 04/27/17 03:30 111 28 121/52 100 40.00 123/47 04/27/17 03:15 110 26 97/50 100 40.00 135/44 04/27/17 03:00 106 30 133/51 100 40.00 121/50 04/27/17 02:45 107 24 124/53 100 40.00 135/53 04/27/17 02:30 108 27 111/52 100 40.00 130/69 04/27/17 02:26 106 28 100 40 04/27/17 02:15 108 20 122/50 100 40.00 113/57 04/27/17 02:00 107 24 97/45 100 40.00 111/59 04/27/17 01:59 105 04/27/17 01:45 109 27 106/49 100 40.00 04/27/17 01:30 113 28 122/52 100 40.00 131/32 04/27/17 01:15 110 27 125/52 100 40.00 04/27/17 01:00 112 28 138/54 100 40.00 138/25 04/27/17 01:00 110 04/27/17 00:45 109 26 131/52 100 40.00 04/27/17 00:30 106 27 130/54 100 40.00 117/79 04/27/17 00:19 107 25 100 40 04/27/17 00:15 105 29 122/50 100 40.00 04/27/17 00:00 100 40 04/27/17 00:00 97.8 111 28 103/50 100 40.00 120/54 04/26/17 23:45 116 26 101/49 100 40.00 04/26/17 23:30 117 28 118/52 100 40.00 112/56 04/26/17 23:15 116 26 112/51 100 40.00 04/26/17 23:00 117 32 121/52 100 40.00 127/49 04/26/17 22:45 115 26 138/55 100 40.00 04/26/17 22:30 114 23 133/55 100 40.00 131/45 04/26/17 22:28 114 27 100 50 04/26/17 22:15 113 25 124/54 100 50.00 04/26/17 22:00 117 28 114/52 100 50.00 93/48 04/26/17 21:45 111 29 142/51 100 50.00 04/26/17 21:30 112 29 140/50 100 50.00 123/49 04/26/17 21:15 111 26 140/50 100 50.00 04/26/17 21:09 141/50 04/26/17 21:07 110 27 143/51 100 Mechanical Ventilator 50.00 04/26/17 21:00 112 26 147/52 100 50.00 126/43 04/26/17 20:45 111 26 145/51 100 50.00 04/26/17 20:44 112 28 100 50 04/26/17 20:30 113 25 143/51 100 50.00 122/40 04/26/17 20:15 113 26 142/50 100 50.00 04/26/17 20:00 112 28 127/50 100 50.00 122/38 04/26/17 19:45 112 27 118/48 100 50.00 04/26/17 19:30 117 27 125/49 100 50.00 111/55 04/26/17 19:30 99 50 04/26/17 19:15 117 30 112/47 100 50.00 04/26/17 19:00 116 04/26/17 19:00 98.2 114 27 136/51 98 50.00 124/57 5/28/17 18:51 118 27 100 60 04/26/17 18:00 113 27 134/55 99 60.00 04/26/17 17:30 113 26 139/58 100 60.00 04/26/17 17:00 114 26 128/56 100 60.00 04/26/17 16:57 114 28 100 60 04/26/17 16:33 97.0 04/26/17 16:30 118 26 132/55 100 60.00 04/26/17 16:00 122 27 106/51 100 60.00 04/26/17 15:30 121 27 173/60 100 60.00 04/26/17 15:23 100 60 04/26/17 15:00 116 28 115/59 100 60.00 04/26/17 14:59 123 04/26/17 14:41 116 27 100 60 04/26/17 14:30 118 25 132/57 100 60.00 04/26/17 14:00 122 20 103/54 100 60.00 04/26/17 13:30 122 31 84/50 100 60.00 04/26/17 13:00 123 04/26/17 13:00 123 33 105/53 99 60.00 04/26/17 12:30 122 35 106/51 99 60.00 04/26/17 12:09 123 32 100 60 04/26/17 12:00 121 41 134/59 99 60.00 04/26/17 11:30 120 34 111/53 98 60.00 04/26/17 11:25 99.0 04/26/17 11:25 97 60 04/26/17 11:00 121 33 102/55 98 60.00 04/26/17 10:30 116 35 100/53 94 60.00 04/26/17 10:15 106 34 95 60 04/26/17 10:00 112 32 83/52 96 60.00 04/26/17 09:30 112 31 87/49 100 60.00 04/26/17 09:15 112 32 94/51 100 60.00 04/26/17 09:00 114 37 108/52 98 60.00 04/26/17 08:45 112 32 95/49 100 60.00 04/26/17 08:30 118 31 104/53 99 60.00 04/26/17 08:15 116 32 102/52 100 60.00 04/26/17 08:01 115 31 100 60 04/26/17 08:00 98.2 116 32 90/51 99 60.00 99/62 04/26/17 08:00 99 60 04/26/17 07:45 114 31 83/45 100 75.00 04/26/17 07:30 112 31 95/48 100 75.00 04/26/17 07:15 111 30 84/49 99 75.00 04/26/17 07:00 108 29 109/54 100 75.00 04/26/17 07:00 110 04/26/17 06:52 109 29 100 75 04/26/17 06:45 105 26 92/50 100 75.00 04/26/17 06:30 108 28 86/46 100 75.00 98/52 I & O 04/27/17 07:00 Intake Total 8085 ml Output Total 2363 ml Balance 5722 ml General Appearance: WD/WN, Chronically ill, Moderate Distress HEENT: PERRL/EOMI, Normal ENT Inspection, Pharynx Normal, Other (ET tube in place) Neck: Full Range of Motion, Normal Inspection, Non Tender, Supple Respiratory: Chest Non Tender, Normal Breath Sounds, No Accessory Muscle Use, No Respiratory Distress, Decreased Breath Sounds Cardiovascular: Regular Rate, Rhythm, No Edema, No Gallop, No JVD, No Murmur, Normal Peripheral Pulses Capillary Refill: Less Than 3 Seconds Gastrointestinal: other Extremity: Normal Capillary Refill, Normal Inspection, Normal Range of Motion, Non Tender, No Calf Tenderness, No Pedal Edema, Pedal Edema, Swelling Neurologic/Psychiatric: Other (sedated on vent) Skin: Normal Color, Warm/Dry Lymphatic: No Adenopathy Results Lab Laboratory Tests 04/25/17 15:10 04/26/17 02:15 04/26/17 11:52 04/27/17 04:00 Assessment/Plan Assessment/Plan Acute respiratory failure since postop secondary to aspiration of bowel contents -continue ventilator support - not ready to wean yet -Diprivan Acute peritonitis with severe sepsis secondary to colonic perforation s/p surgery -Continue Merrem add Diflucan -Aggressive IVF Septic shock -CVP monitoring -Levophed and vasopressin -wean levophed to keep SBP >90 MAP 65 -start solucortef 100mg IV Q8 -Lost art line but will reinsert -Will give another liter of LR over 2hrs after albumin Metabolic acidosis 2 amps [id number] -Continue IVF with LR hypothyroid -Pt is getting IV Synthroid HX of SVT/AF 255 60min was spent with patient care Clinical Quality Measures DVT/VTE Risk/Contraindication: Risk Factor Score Per Nursin RFS Level Per Nursing on Admit: 4+=Very High CHRISS ARTIS DO April 27, 2017 06:29
[2017-04-27] MEDS ORDERED: FLUCONAZOLE 200 MG/100 ML 100 ML IV NR (07:15)
[2017-04-27] MEDS ORDERED: SODIUM BICARB 8.4% 50 MEQ/50 ML (ABBOTT) SYR IV NR (07:30)
[2017-04-27] MEDS ORDERED: ALBUMIN 25% 25 GM/100 ML 100 ML IV NR (07:30)
[2017-04-27] MEDS ORDERED: HYDROCORTISONE 100 MG/2 ML (Solu-CORTEF) VIAL ONE (07:38)
[2017-04-27] MEDS: HYDROCORTISONE 100 MG/2 ML (Solu-CORTEF) VIAL IV SCH ×3 (07:43→21:28)
[2017-04-27] MEDS: VASOPRESSIN INJECTION 20 UNIT in NS (IVPB) 50 ML IV SCH ×3 (07:43→23:41)
[2017-04-27] MEDS: PANTOPRAZOLE 40 MG/10 ML (PROTONIX) VIAL IVP SCH (08:26)
--- NOTE | 2017-04-27 09:06 | Progress Note-Standard ---
Standard Progress Note Progress Notes/Assess & Plan Progress/Assessment & Plan 04/26/17:septic with severe leukopenia. Very poor urine output. On dual vasopressors. Sinus tachycardia. Outcome poor with expected mortality. Central venous pressure around 12. We'll continue to provide fluid resuscitation and maintain vasopressors for now. 04/27/17:continues to require vasopressor support. Urine output reasonable. Creatinine slightly elevated. Ventilation and oxygenation stable. Will place a wound VAC tomorrow. Continue supportive abdomen. Enteral nutrition in 24- 48 hours. DVT prophylaxis with low molecular weight heparin, renally adjusted dose Final Diagnosis sigmoid perforation with fecal peritonitis. Septic shock MACY TALAVERA MD April 27, 2017 9:06 am
--- NOTE | 2017-04-27 09:38 | Progress Note-Hospitalist ---
Progress Note HPI/CC on Admission CC: Management of critical illness with acute peritonitis due to bowel perforation with aspiration of bowel contents during intubation HPI: This is a 61-year-old white female clinic patient of Dr. 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 Apparently she was wanting to go to [place] and used to suppository like she usually does because she is struggle with constipation since cardiac meds have been initiated several years ago but at noon time she started having a lot of pain to the extent that required emergency room evaluation. CT scan was obtained found to have bowel perforation with peritonitis and during intubation for surgery she aspirated bowel contents so she now has a diverting colostomy but the pictures during surgery appeared to have a multitude of impacted bowel contents within the abdominal cavity. I did speak with Dr. Horvath her primary care provider and employer and it appears that she is not up-to-date on her colonoscopy and has not had one before and she has had significant constipation issues for the past several years so I hypothesized that impacted stool has been an ongoing problem for her probably stretching the tissue over a long period time and finally rupturing causing this critical illness. She is requiring high doses of Levophed and closely monitoring due to severe sepsis and multisystem organ failure. She has received aggressive IV fluids per protocol and currently monitor closely due to history of arrhythmia maintained on Rythmol as an outpatient. She sees Dr. Kings benitez at [place] after she failed undergoing ablation up in [place] years ago. I have consulted cardiology and rn cvor and eICU to facilitate management of this critically ill patient. Progress Notes/Assess & Plan Date Seen 04/27/17 Admission Dx/Process Assessment: Acute peritonitis from colonic perforation with impacted stool with history of severe chronic constipation status post diverting colostomy POD # 1 Aspiration of bowel contents during intubation for surgery with ventilator- dependent respiratory failure currently History of SVT/AF status post attempted ablation an unsuccessful maintained on Rythmol by Dr. Ku cardiology [place] History of hypertension Hypothyroidism Leukopenia due to sepsis Hypokalemia Diagonsis/Assessment & Plan Patient becoming more stable and slightly improved Good urinary output due to IV fluid aggressive regimen Maintain on broad-spectrum antibiotics Appreciate pulmonology input Remains on ventilator and will not be weaned today Still critically ill but much improved I reviewed labs and culture results No fever, vital signs stable much improved 130/67 Sedated on ventilator Coarse breath sounds upper lobes from ventilator otherwise diminished in the bases 1+ edema lower extremities Laboratory Tests 04/26/17 11:52 04/27/17 04:00 Assessment: Acute peritonitis from colonic perforation with impacted stool with history of severe chronic constipation status post diverting colostomy POD # 2 with septic shock requiring pressors and aggressive IVF management Aspiration of bowel contents during intubation for surgery with ventilator- dependent respiratory failure currently maintained on Meropenem and Diflucan History of SVT status post attempted ablation and unsuccessful maintained on Rythmol by Dr. Ku cardiology [place] consulted Dr Nettles and his recs are appreciated History of hypertension Hypothyroidism Leukopenia due to sepsis resolved today Hypokalemia replaced Metabolic acidosis due to sepsis Plan: Replace potassium per protocol Maintain ventilator and appreciate Dr Causey's expertise Pain control as long as does not worsen hypotension Empiric antibiotics for peritonitis and aspiration of bowel contents Consult cardiology and recs are appreciated Monitor labs Maintain colostomy DAVY Horan DO April 27, 2017 09:38
[2017-04-27] MEDS: PROPOFOL DRIP (ICU) 100 ML IV SCH (10:22)
--- NOTE | 2017-04-27 10:44 | Diagnostic Imaging Report ---
INDICATION: Respiratory failure COMPARISON: 04/26/2017 FINDINGS: Semiupright portable view of the chest is obtained. Endotracheal tube, orogastric tube and right central line appear stable. Heart size appears prominent but unchanged. There is no central venous congestion. Underlying congestion and edema changes from the prior study have shown significant improvement. There is improved aeration of the lung bases with perhaps some minimal persistent fluid and airspace disease at the left lung base. Upper lungs remain well aerated. IMPRESSION: Overall, there has been moderate improvement since the recent prior study with reduction in the extent of edema and basilar airspace disease. There is some minimal persistent left basilar atelectasis or infiltrate with small effusion. Dictated by: Dictated on workstation # [id number]
--- NOTE | 2017-04-27 10:59 | Progress Note-Standard ---
Standard Progress Note Progress Notes/Assess & Plan Progress/Assessment & Plan [id number] 04/27/17: Called to ICU 7 for arterial line placement. Several attempts made at right radial, right brachial, and left brachial; however, I was unsuccessful. Dr. Carias entered ICU 7 upon me trying and agreed to place femoral line. LUIS A FAROOQ CRNA April 27, 2017 10:59
--- NOTE | 2017-04-27 11:00 | Progress Note-Post Operative ---
Post-Operative Progess Note Surgeon (s)/Director Of Brand Marketing (s) Surgeon AZALEA LUCAS MD Director Of Brand Marketing: Not applicable Pre-Operative Diagnosis Peritonitis due to perforated hollow viscus, sepsis, hypotentsion. Post-Operative Diagnosis same Procedure & Operative Findings Date of Procedure 04/27/17 Procedure Performed/Findings placement left femoral arterial catheter. Anesthesia Type local Estimated Blood Loss Estimated blood loss (mL): minimal Specimens/Packing Specimens Removed none AZALEA LUCAS MD April 27, 2017 11:00 am
[2017-04-27 11:11] LABS: ABG BASE EXCESS -6.3 MMOL/L (-2.5-2.5); ABG HCO3 18 MMOL/L (23-27); ABG OXYGEN SATURATION 97 % (94-100); ABG PCO2 31 MMHG (35-45); ABG PH 7.38 (7.37-7.43); ABG PO2 81 MMHG (79-93); ABG TCO2 18.8 MMOL/L (21.0-31.0)
[2017-04-27 11:15] LABS: ALLENS TEST YES-POS
[2017-04-27 11:16] LABS: PATIENT TEMP 98.1
--- NOTE | 2017-04-27 11:25 | Anesthesia-General Post-Op ---
General Post Op Complications Complications None Follow Up Care/Instructions Patient Instructions None needed. Anesthesia/Patient Condition Patient Condition Patient remains on the ventilator and is on Diprivan drip for sedation. She is on levophed and vasopressin; however, weaning has been possible, and they continue to work on that. An arterial line was recently placed in patient's left femoral artery, after I had unsuccessfully tried several attempts. NIBP was stable at 130/70's. HR 108. LUIS A FAOROQ CRNA April 27, 2017 11:25
--- NOTE | 2017-04-27 11:31 | OPERATIVE REPORT ---
DATE OF SERVICE: 04/26/2017 ATTENDING PRIMARY CARE PHYSICIAN: Dr. Horvath. ADMITTING PHSYICIAN: Dr. Ng. INDICATIONS: The patient is a 61-year-old female who presented with abdominal pain and peritonitis. She underwent an exploration, found to have sigmoid colonic perforation with gross stool within the peritoneal cavity. She then underwent a sigmoid colon resection and colostomy as well as creation of Jose R pouch. She has developed signs and symptoms of sepsis with hypotension requiring continued ventilator support as well as IV vasopressors to maintain her blood pressure. She is also been suffering from anasarca. Multiple attempts were made to place an arterial line in bilateral radial arteries as well as the right femoral artery however were unsuccessful. DESCRIPTION OF PROCEDURE: The left abdomen and groin were prepped and draped in standard surgical fashion. The left femoral artery was then cannulated with a needle with drawing of arterial blood. The guidewire was then inserted without any resistance. The cannulated needle removed and a small skin incision made using an 11 blade. A femoral artery catheter was then threaded over the wire using the Seldinger technique. The guidewire was removed and there was brisk bleeding and a good waveform identified. The catheter was then sutured to the skin using interrupted 3-0 silk sutures. The catheter was then cleaned and covered with sterile gauze followed by Op-Site. The patient tolerated the procedure well. Job ID: [id number] DocumentID: [id number] Dictated Date: 04/27/2017 11:14:08 Pen Tester Date: 04/27/2017 11:30:48 Dictated By: AZALEA LUCAS MD
[2017-04-27] MEDS ORDERED: LACTATED RINGERS 1,000 ML IV ONE (11:45)
[2017-04-27] MEDS: ENOXAPARIN 40 MG/0.4 ML (LOVENOX) SYR SC SCH (11:53)
--- NOTE | 2017-04-27 12:44 | Occ Therapy Progress Note ---
Therapy Progress Note OT orders received, and chart reviewed. Pt. still on ventilator at this time. Weaning has began and OT will follow for complete evaluation when pt. is off vent. Thank you for the referral. JAILYN SHULTZ OT April 27, 2017 12:44
--- NOTE | 2017-04-27 12:59 | Diagnostic Imaging Report ---
Indication: Postop abdominal surgery KUB obtained at 533 hours am. Surgical drain is seen over the right upper quadrant as well as in the midpelvis. Bowel gas pattern is unremarkable. There is an ostomy in the left lower quadrant. There is moderate stool in the colon. There is no overt obstruction. NG tube tip overlies mid stomach. IMPRESSION: Postoperative findings as above. There is moderate stool in the colon with no overt obstruction. Ostomy seen in the left lower quadrant. Dictated by: Dictated on workstation # [id number]
--- NOTE | 2017-04-27 13:08 | Cardiology Progress Note ---
Cardiology SOAP Progress Note Subjective: intubated ventilated. Objective: I&O/Vital Signs Vital Sign - Last 12Hours 04/27/17 04/27/17 04/27/17 04/27/17 01:15 01:30 01:45 01:59 Pulse 110 113 109 105 Resp B/P (MAP) 125/52 122/52 106/49 131/32 Pulse Ox 100 100 100 O2 Flow Rate 40.00 40.00 40.00 04/27/17 04/27/17 04/27/17 04/27/17 02:00 02:15 02:26 02:30 Pulse 107 108 106 108 Resp B/P (MAP) 97/45 122/50 111/52 111/59 113/57 130/69 Pulse Ox 100 100 100 100 O2 Flow Rate 40.00 40.00 40.00 FiO2 40 04/27/17 04/27/17 04/27/17 04/27/17 02:45 03:00 03:15 03:30 Pulse 107 106 110 111 Resp B/P (MAP) 124/53 133/51 97/50 121/52 135/53 121/50 135/44 123/47 Pulse Ox 100 100 100 100 O2 Flow Rate 40.00 40.00 40.00 40.00 04/27/17 04/27/17 04/27/17 04/27/17 03:45 04:00 04:05 04:15 Temp 97.2 Pulse 111 112 110 96 Resp B/P (MAP) 138/60 129/63 128/59 Pulse Ox 100 100 100 100 O2 Flow Rate 40.00 40.00 40.00 FiO2 40 04/27/17 04/27/17 04/27/17 04/27/17 04:20 04:30 05:00 05:15 Pulse 111 106 120 Resp B/P (MAP) 142/35 143/38 138/37 Pulse Ox 100 100 100 100 O2 Flow Rate 40.00 40.00 40.00 FiO2 40 04/27/17 04/27/17 04/27/17 04/27/17 05:30 05:45 06:00 06:12 Pulse 107 114 116 112 Resp B/P (MAP) 120/98 118/32 124/47 Pulse Ox 98 100 100 100 O2 Flow Rate 40.00 40.00 40.00 FiO2 40 04/27/17 04/27/17 04/27/17 04/27/17 06:15 06:30 06:45 07:00 Pulse 118 110 112 110 Resp 25 25 B/P (MAP) 117/46 120/52 113/65 Pulse Ox 100 94 95 O2 Flow Rate 40.00 40.00 40.00 04/27/17 04/27/17 04/27/17 04/27/17 07:00 08:00 08:07 08:30 Temp 98.1 Pulse 110 120 112 110 Resp 24 23 26 B/P (MAP) 110/50 123/42 127/62 Pulse Ox 96 100 100 100 O2 Flow Rate 30.00 30.00 30.00 FiO2 30 04/27/17 04/27/17 04/27/17 04/27/17 08:34 10:00 10:22 11:00 Pulse 105 109 Resp 24 B/P (MAP) 136/77 136/56 136/81 Pulse Ox 100 100 97 O2 Flow Rate 30.00 30.00 FiO2 30 04/27/17 04/27/17 04/27/17 04/27/17 11:28 11:58 11:59 12:29 Temp 99.2 Pulse 115 118 120 Resp 26 B/P (MAP) 134/64 129/56 Pulse Ox 97 100 95 97 O2 Flow Rate 30.00 FiO2 30 30 30 Intake and Output 04/27/17 00:00 Intake Total 2980 ml Output Total 915 ml Balance 2065 ml Weight (Pounds): 174 Weight (Ounces): 0.8 Weight (Calculated Kilograms): [id number] Constitutional: other (Intubated and ventilated) Respiratory: other (Bilateral air entry) Cardiovascular: tachycardia, S1 and S2, other (No murmur) Gastrointestional: other (Recent abdominal surgery) Extremities: no lower extremity edema bilateral Neurologic/Psychiatric: other (Intubated ventilated) Skin: No normal color, No warm/dry, No cyanosis, No cool, No diaphoresis, No damp, No ecchymosis, No jaundice, No mottled, No pallor, No rash, No tattoos/ piercings, No ulcerations, No rash on exposed areas, No ulcerations on exposed areas, No other Results/Procedures: Labs Laboratory Tests 04/26/17 13:41: Blood Gas Puncture Site LT RAD, Blood Gas Patient Temperature 99.1, Arterial Blood pH 7.33*L, Arterial Blood Partial Pressure CO2 29L, Arterial Blood Partial Pressure O2 108H, Arterial Blood HCO3 15*L, Arterial Blood Total CO2 15.6L, Arterial Blood Oxygen Saturation 99, Arterial Blood Base Excess -10.0L, Brannon Test YES-POS, Blood Gas Ventilator Setting YES, Blood Gas Inspired Oxygen 60% 04/26/17 13:53: Prothrombin Time 23.9H, INR Comment 2.2H, Activated Partial Thromboplast Time 50H, Fibrinogen 220L, Lactic Acid Level 4.18*H, Phosphorus Level 1.2L, Total Bilirubin 0.4, Direct Bilirubin 0.3, Indirect Bilirubin 0.1, Aspartate Amino Transf (AST/SGOT) 23, Alanine Aminotransferase (ALT/SGPT) 10, Alkaline Phosphatase 20L, Total Protein 3.0L, Albumin 2.1L 04/26/17 17:53: Lactic Acid Level 3.08*H, Glucometer 113H 04/26/17 21:50: Lactic Acid Level 3.56*H 04/27/17 00:06: Glucometer 68L 04/27/17 02:00: Lactic Acid Level 4.50*H 04/27/17 02:01: Glucometer 78 04/27/17 04:00: White Blood Count 5.3, Red Blood Count 3.87L, Hemoglobin 11.3L, Hematocrit 34L, Mean Corpuscular Volume 87, Mean Corpuscular Hemoglobin 29, Mean Corpuscular Hemoglobin Concent 33, Red Cell Distribution Width 12.6, Platelet Count 143, Mean Platelet Volume 11.6H, Neutrophils (%) (Auto) 83H, Lymphocytes (%) (Auto) 11L, Monocytes (%) (Auto) 4, Eosinophils (%) (Auto) 2, Basophils (%) (Auto) 0, Neutrophils # (Auto) 4.4, Lymphocytes # (Auto) 0.6L, Monocytes # (Auto) 0.2, Eosinophils # (Auto) 0.1, Basophils # (Auto) 0.0, Prothrombin Time 23.5H, INR Comment 2.1H, Activated Partial Thromboplast Time 44H, Fibrinogen 382, Sodium Level 133L, Potassium Level 4.6, Chloride Level 106, Carbon Dioxide Level 15L, Anion Gap 12, Blood Urea Nitrogen 26H, Creatinine 1.14, Estimat Glomerular Filtration Rate 49, BUN/Creatinine Ratio 23, Glucose Level 85, Calcium Level 7.8L, Phosphorus Level 4.4, Magnesium Level 2.2 04/27/17 05:45: Lactic Acid Level 5.17*H 04/27/17 05:46: Glucometer 89 04/27/17 09:43: Lactic Acid Level 4.53*H 04/27/17 11:05: Blood Gas Puncture Site LT FEMORAL, Blood Gas Patient Temperature 98.1, Arterial Blood pH 7.38, Arterial Blood Partial Pressure CO2 31L, Arterial Blood Partial Pressure O2 81, Arterial Blood HCO3 18L, Arterial Blood Total CO2 18.8L , Arterial Blood Oxygen Saturation 97, Arterial Blood Base Excess -6.3L, Brannon Test YES-POS, Blood Gas Ventilator Setting YES, Blood Gas Inspired Oxygen 30% Microbiology 04/26/17 Blood Culture - Preliminary, Resulted No growth A/P: Assessment/Dx: Large bowel perforation, fecal peritonitis, severe septic shock. History of SVT and antiarrhythmic therapy Plan: Large bowel perforation status post emergent abdominal surgery by Dr. Ng. Peritonitis/severe septic shock: On broad-spectrum antibiotics and vasopressors. Patient is still in shock. slight improvement in blood pressure and decreased requirement of vasopressors. check echocardiogram. Patient in sinus tachycardia which is in response to severe sepsis. frequent PVCs. Patient has history of PVCs. PVCs can also be a response to vasopressors. History of SVT and was on propafenone. Propafenone is not required at this point in time. No rate controlling agent is recommended. Cardiology will continue to follow. Thank you for your consultation. Please call me if you have any questions. Jung Foote MD, FACP, FACC, FSCAI, FHRS, CCDS Interventional Cardiology Cardiac Electrophysiology Vascular Medicine and Endovascular Interventions Darshana FOOTE MD April 27, 2017 1:08 pm
[2017-04-27] MEDS ORDERED: meTOprolol 5 MG/5 ML (LOPRESSOR) VIAL IV ONE (23:00)
[2017-04-27] MEDS ORDERED: SODIUM CHLORIDE (ADD-VANTAGE) 100 ML IV ONE (23:26)
[2017-04-27] MEDS ORDERED: DILTIAZEM 100 MG/VIAL (CARDIZEM) ADD-VANTAGE IV ONE (23:26)
[2017-04-27] MEDS: DILTIAZEM DRIP 100 MG in SODIUM CHLORIDE (ADD-VANTAGE) 100 ML IV SCH (23:40)
[2017-04-28] VITALS (55 sets, daily range): BP systolic 85–155; BP diastolic 51–73
[2017-04-28] MEDS: meTOprolol 5 MG/5 ML (LOPRESSOR) VIAL IV PRN (00:57)
[2017-04-28] MEDS: PHENYLEPHRINE IV SCH ×3 (02:14→21:52)
[2017-04-28] MEDS: NS IV SCH ×3 (02:14→21:52)
[2017-04-28] MEDS: PROPOFOL DRIP (ICU) 100 ML IV SCH ×3 (02:20→21:47)
[2017-04-28] MEDS: fentaNYL INJECTION 100 MCG/2 ML AMP IV PRN (04:17)
[2017-04-28 04:43] LABS: BASOPHILS % (AUTO) 0 % (0-10); EOSINOPHILS % (AUTO) 0 % (0-10); LYMPHOCYTES # (AUTO) 0.4 X 10^3 (1.0-4.0); LYMPHOCYTES % (AUTO) 5 % (12-44); MEAN CORPUSCULAR HEMOGLOBIN 29 PG (25-34); MEAN CORPUSCULAR HGB CONC 34 G/DL (32-36); MEAN CORPUSCULAR VOLUME 85 FL (80-99); MONOCYTES # (AUTO) 0.2 X 10^3 (0.0-1.0); MONOCYTES % (AUTO) 3 % (0-12); NEUTROPHILS # (AUTO) 6.7 X 10^3 (1.8-7.8); NEUTROPHILS % (AUTO) 92 % (42-75); PLATELET COUNT 81 10^3/uL (130-400); RED CELL DISTRIBUTION WIDTH 12.5 % (10.0-14.5); WHITE BLOOD COUNT 7.3 10^3/uL (4.3-11.0)
[2017-04-28 04:44] LABS: ABG HCO3 21 MMOL/L (23-27); ABG OXYGEN SATURATION 94 % (94-100); ABG PCO2 31 MMHG (35-45); ABG PH 7.46 (7.37-7.43); ABG PO2 67 MMHG (79-93); ABG TCO2 22.3 MMOL/L (21.0-31.0); ALLENS TEST ART LINE; PATIENT TEMP 98.3
[2017-04-28 05:13] LABS: ANION GAP 10 MMOL/L (5-14); BLOOD UREA NITROGEN 25 MG/DL (7-18); BUN/CREATININE RATIO 29; CARBON DIOXIDE 20 MMOL/L (21-32); CHLORIDE 109 MMOL/L (98-107); CREATININE SERUM 0.86 MG/DL (0.60-1.30); GFR ESTIMATED > 60; GLUCOSE 89 MG/DL (70-105); MAGNESIUM 2.2 MG/DL (1.8-2.4); PHOSPHORUS 3.3 MG/DL (2.3-4.7); POTASSIUM 3.5 MMOL/L (3.6-5.0); SODIUM 139 MMOL/L (135-145)
[2017-04-28] MEDS: NOREPINEPHRINE 4 MG in D5W 250 ML (IVPB) 250 ML IV SCH (05:27)
[2017-04-28] MEDS: KCL 20 MEQ TAB (K-DUR) PO SCH (05:28)
[2017-04-28] MEDS: POTASSIUM CL 10MEQ/50ML IVPB 50 ML IV SCH ×3 (05:28→06:30)
[2017-04-28] MEDS: MAGNESIUM 1 GM/100 ML IVPB 100 ML IV SCH (05:28)
[2017-04-28 05:30] LABS: BAND NEUTROPHILS 27 %; BASOPHILS % (MANUAL) 0 %; EOSINOPHILS % (MANUAL) 0 %; LYMPHOCYTES % (MANUAL) 5 %; NEUTROPHILS % (MANUAL) 60 %
[2017-04-28 05:31] LABS: ROULEAUX SLIGHT
[2017-04-28] MEDS: HYDROCORTISONE 100 MG/2 ML (Solu-CORTEF) VIAL IV SCH ×2 (05:35→18:14)
[2017-04-28] MEDS: MEROPENEM 1 GM/NS 100 ML IVPB IV SCH ×6 (05:36→21:46)
--- NOTE | 2017-04-28 07:01 | Pulmonary Progress Note ---
Subjective Subjective/Events-last exam Pt is doing better today. She is off levophed and vasopressin Exam Exam Vital Signs Date Time Temp Pulse Resp B/P (MAP) Pulse Ox O2 Delivery O2 Flow Rate FiO2 04/28/17 06:45 78 24 125/65 96 21.00 04/28/17 06:30 109 20 109/65 99 21.00 04/28/17 06:23 106 23 99 21 04/28/17 06:15 114 24 96/57 98 21.00 04/28/17 06:00 126 21 107/62 98 21.00 99/59 04/28/17 05:45 121 23 106/64 99 21.00 04/28/17 05:30 118 22 101/58 99 21.00 04/28/17 05:15 113 27 85/55 100 21.00 04/28/17 05:00 111 23 99/57 100 21.00 97/64 04/28/17 04:45 106 20 109/61 99 21.00 04/28/17 04:30 114 18 108/63 100 21.00 04/28/17 04:23 112 26 99 21 04/28/17 04:20 98 21 04/28/17 04:17 101 109/60 04/28/17 04:15 122 23 98/64 100 21.00 04/28/17 04:00 98.3 116 24 100/58 99 21.00 95/61 04/28/17 03:45 106 27 106/62 97 21.00 04/28/17 03:30 111 21 104/65 98 21.00 04/28/17 03:15 131 22 101/63 99 21.00 04/28/17 03:00 101 20 105/62 99 21.00 89/62 04/28/17 02:45 112 22 106/63 99 21.00 04/28/17 02:39 125 21 99 21 04/28/17 02:30 118 26 107/60 98 21.00 04/28/17 02:20 101/58 04/28/17 02:15 125 27 101/62 98 21.00 04/28/17 02:00 125 26 101/61 97 21.00 88/64 04/28/17 01:45 133 26 91/59 96 21.00 04/28/17 01:30 135 25 100/62 97 21.00 04/28/17 01:15 131 25 97/59 97 21.00 04/28/17 01:00 152 20 98/63 97 21.00 100/58 04/28/17 01:00 143 04/28/17 00:45 137 25 104/64 98 21.00 04/28/17 00:30 142 23 106/63 99 21.00 04/28/17 00:15 146 26 108/67 100 21.00 04/28/17 00:15 107 24 98 21 04/28/17 00:00 98.6 158 23 103/67 100 21.00 105/61 04/27/17 23:55 100 21 04/27/17 23:45 160 24 103/66 99 21.00 04/27/17 23:40 156 104/64 04/27/17 23:30 138 24 100/64 100 21.00 04/27/17 23:18 129 20 90/59 97 21.00 96/69 04/27/17 23:15 147 25 91/55 97 21.00 04/27/17 23:00 161 27 102/58 99 21.00 81/44 04/27/17 22:45 107 23 115/52 99 21.00 04/27/17 22:30 117 24 116/54 99 21.00 04/27/17 22:21 114 25 99 21 04/27/17 22:15 114 25 112/53 99 21.00 04/27/17 22:00 118 25 110/49 99 21.00 109/50 04/27/17 21:45 117 26 106/48 97 21.00 04/27/17 21:30 120 21 111/52 98 21.00 04/27/17 21:15 111 21 99/49 98 21.00 04/27/17 21:00 106 23 121/57 98 21.00 123/59 04/27/17 20:58 110 24 98 21 04/27/17 20:45 117 25 121/58 97 21.00 04/27/17 20:30 123 26 121/58 96 21.00 04/27/17 20:15 114 30 119/54 96 21.00 04/27/17 20:00 97 21 04/27/17 20:00 113 25 119/54 97 21.00 122/64 04/27/17 19:45 122 24 117/57 97 21.00 04/27/17 19:30 115 22 119/53 98 21.00 04/27/17 19:15 114 25 125/60 98 21.00 04/27/17 19:00 117 04/27/17 19:00 100.0 114 28 118/56 98 21.00 118/59 04/27/17 18:28 114 28 98 21 04/27/17 18:00 113 24 114/59 98 21.00 107/53 04/27/17 17:00 112 26 119/58 98 21.00 119/55 04/27/17 16:09 117 27 98 21 04/27/17 15:41 99.4 116 24 110/59 99 21.00 111/54 04/27/17 15:41 99 21 04/27/17 15:00 116 14 122/54 99 30.00 123/62 04/27/17 14:32 113 26 99 21 04/27/17 14:00 114 22 119/59 99 30.00 121/62 04/27/17 13:00 117 26 119/52 95 30.00 118/51 04/27/17 13:00 119 04/27/17 12:29 120 26 97 30 04/27/17 11:59 99.2 118 26 134/64 95 30.00 129/56 04/27/17 11:58 100 30 04/27/17 11:28 115 29 97 30 04/27/17 11:00 109 24 136/81 97 30.00 04/27/17 10:22 136/56 04/27/17 10:00 105 26 136/77 100 30.00 04/27/17 08:34 100 30 04/27/17 08:30 98.1 110 26 127/62 100 30.00 04/27/17 08:07 112 23 100 30 04/27/17 08:00 120 24 123/42 100 30.00 04/27/17 07:00 110 25 110/50 96 30.00 04/27/17 07:00 110 I & O 04/28/17 07:00 Intake Total 2710 ml Output Total 4000 ml Balance -1290 ml General Appearance: WD/WN, Chronically ill, Other (sedated) HEENT: PERRL/EOMI, Normal ENT Inspection, Pharynx Normal, Other (ET tube in place) Neck: Full Range of Motion, Normal Inspection, Non Tender, Supple Respiratory: Chest Non Tender, Normal Breath Sounds, No Accessory Muscle Use, No Respiratory Distress, Decreased Breath Sounds Cardiovascular: Regular Rate, Rhythm, No Edema, No Gallop, No JVD, No Murmur, Normal Peripheral Pulses Capillary Refill: Less Than 3 Seconds Gastrointestinal: other Extremity: Normal Capillary Refill, Normal Inspection, Normal Range of Motion, Non Tender, No Calf Tenderness, No Pedal Edema, Pedal Edema, Swelling Neurologic/Psychiatric: Other (sedated on vent) Skin: Normal Color, Warm/Dry Lymphatic: No Adenopathy Results Lab Laboratory Tests 04/26/17 11:52 04/27/17 04:00 04/28/17 04:30 Assessment/Plan Assessment/Plan Acute respiratory failure since postop secondary to aspiration of bowel contents -continue ventilator support - not ready to wean yet -ABG shows respiratory alkalosis -Decrease RR to 14 and then repeat ABG in 1hr -Diprivan Acute peritonitis with severe sepsis secondary to colonic perforation s/p surgery -Continue Merrem Diflucan -Aggressive IVF Septic shock -- much improved -CVP monitoring -OFF Levophed and vasopressin -DECREASE solucortef TO 100mg IV Q12 - agree with no lasix at least until LA is normal Afib RVR- now converted back to sinus -cardizem is now off Hypokalemia -replace Metabolic acidosis -improving hypothyroid -Pt is getting IV Synthroid HX of SVT/AF -LABS AND CXR REVIEWED 233 Clinical Quality Measures DVT/VTE Risk/Contraindication: Risk Factor Score Per Nursin RFS Level Per Nursing on Admit: 4+=Very High CHRISS ARTIS DO April 28, 2017 07:01
[2017-04-28] MEDS: LACTATED RINGERS 1,000 ML IV SCH ×2 (07:40→17:09)
[2017-04-28] MEDS: VASOPRESSIN INJECTION 20 UNIT in NS (IVPB) 50 ML IV SCH ×3 (07:56→23:40)
--- NOTE | 2017-04-28 08:04 | Diagnostic Imaging Report ---
INDICATION: Respiratory failure. Portable chest 5:17 AM FINDINGS: There is an ET tube projecting over the trachea. NG tube projects over the stomach. Right IJ central line tip projects over the SVC. Heart size and pulmonary vascularity are normal. Lungs are clear. IMPRESSION: No acute abnormalities in the chest. Dictated by: Dictated on workstation # [id number]
[2017-04-28 08:18] LABS: ABG BASE EXCESS -1.6 MMOL/L (-2.5-2.5); ABG HCO3 21 MMOL/L (23-27); ABG OXYGEN SATURATION 91 % (94-100); ABG PCO2 30 MMHG (35-45); ABG PH 7.47 (7.37-7.43); ABG PO2 58 MMHG (79-93); ABG TCO2 22.3 MMOL/L (21.0-31.0)
[2017-04-28 08:19] LABS: ALLENS TEST ART LINE
[2017-04-28] MEDS: PANTOPRAZOLE 40 MG/10 ML (PROTONIX) VIAL IVP SCH (09:02)
[2017-04-28] MEDS: FLUCONAZOLE 100 MG/50 ML 50 ML IV SCH (09:02)
--- NOTE | 2017-04-28 09:38 | Progress Note-Standard ---
Standard Progress Note Progress Notes/Assess & Plan Progress/Assessment & Plan 04/26/17:septic with severe leukopenia. Very poor urine output. On dual vasopressors. Sinus tachycardia. Outcome poor with expected mortality. Central venous pressure around 12. We'll continue to provide fluid resuscitation and maintain vasopressors for now. 04/27/17:continues to require vasopressor support. Urine output reasonable. Creatinine slightly elevated. Ventilation and oxygenation stable. Will place a wound VAC tomorrow. Continue supportive abdomen. Enteral nutrition in 24- 48 hours. DVT prophylaxis with low molecular weight heparin, renally adjusted dose 04/28/17:off the vasopressors. Renal function reasonable.NG output more than 1 L and therefore tube feeding will be delayed.electrolytes satisfactory.wwe'll continue current management. Final Diagnosis fecal peritonitis due to sigmoid perforation. Septic shock MACY TALAVERA MD April 28, 2017 09:38
--- NOTE | 2017-04-28 10:04 | Progress Note-Hospitalist ---
Progress Note HPI/CC on Admission CC: Management of critical illness with acute peritonitis due to bowel perforation with aspiration of bowel contents during intubation HPI: This is a 61-year-old white female clinic patient of Dr. 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 Apparently she was wanting to go to [place] and used to suppository like she usually does because she is struggle with constipation since cardiac meds have been initiated several years ago but at noon time she started having a lot of pain to the extent that required emergency room evaluation. CT scan was obtained found to have bowel perforation with peritonitis and during intubation for surgery she aspirated bowel contents so she now has a diverting colostomy but the pictures during surgery appeared to have a multitude of impacted bowel contents within the abdominal cavity. I did speak with Dr. Horvath her primary care provider and employer and it appears that she is not up-to-date on her colonoscopy and has not had one before and she has had significant constipation issues for the past several years so I hypothesized that impacted stool has been an ongoing problem for her probably stretching the tissue over a long period time and finally rupturing causing this critical illness. She is requiring high doses of Levophed and closely monitoring due to severe sepsis and multisystem organ failure. She has received aggressive IV fluids per protocol and currently monitor closely due to history of arrhythmia maintained on Rythmol as an outpatient. She sees Dr. Kings benitez at [place] after she failed undergoing ablation up in [place] years ago. I have consulted cardiology and clinic md associate and eICU to facilitate management of this critically ill patient. Progress Notes/Assess & Plan Date Seen 04/28/17 Admission Dx/Process Assessment: Acute peritonitis from colonic perforation with impacted stool with history of severe chronic constipation status post diverting colostomy POD # 1 Aspiration of bowel contents during intubation for surgery with ventilator- dependent respiratory failure currently History of SVT/AF status post attempted ablation an unsuccessful maintained on Rythmol by Dr. Ku cardiology [place] History of hypertension Hypothyroidism Leukopenia due to sepsis Hypokalemia Diagonsis/Assessment & Plan Patient is now stable and slightly improved Good urinary output due to IV fluid aggressive regimen Maintained on broad-spectrum antibiotics Appreciate pulmonology input Remains on ventilator and will not be weaned today but hopefully tomorrow Still critically ill but much improved I reviewed labs and culture results OGT still with increased output so feedings will be held for now and will start TPN Episode of AF occurred but resolved with suctioning No fever, vital signs stable much improved 120/68 Sedated on ventilator RRR Coarse breath sounds upper lobes from ventilator otherwise diminished in the bases 1+ edema lower extremities Colostomy in place Laboratory Tests 04/28/17 04:30 Assessment: Acute peritonitis from colonic perforation with impacted stool with history of severe chronic constipation status post diverting colostomy POD # 3 with septic shock requiring pressors and aggressive IVF management now improved and more stable Aspiration of bowel contents during intubation for surgery with ventilator- dependent respiratory failure currently maintained on Meropenem and s/p Diflucan History of SVT status post attempted ablation and unsuccessful maintained on Rythmol by Dr. Ku cardiology [place] consulted Dr Nettles and his recs are appreciated and had an episode of AF last night resolved with suctioning History of hypertension Hypothyroidism Leukopenia due to sepsis resolved today Hypokalemia replaced Metabolic acidosis due to sepsis Thrombocytopenia due to sepsis Plan: Replace potassium per protocol Maintain ventilator and appreciate Dr Causey's expertise Empiric antibiotics for peritonitis and aspiration of bowel contents Cardiology recs are appreciated Monitor labs Maintain colostomy SCDs TPN Doing better DAVY ROME DO April 28, 2017 10:04
[2017-04-28] MEDS ORDERED: ESTR1TAB37 PO (10:10)
[2017-04-28 10:13] LABS: ABG BASE EXCESS -1.9 MMOL/L (-2.5-2.5); ABG HCO3 21 MMOL/L (23-27); ABG OXYGEN SATURATION 94 % (94-100); ABG PCO2 30 MMHG (35-45); ABG PH 7.46 (7.37-7.43); ABG PO2 63 MMHG (79-93); ABG TCO2 22.3 MMOL/L (21.0-31.0)
[2017-04-28 10:15] LABS: ALLENS TEST ART LINE; PATIENT TEMP 97.8
[2017-04-28] MEDS: ENOXAPARIN 40 MG/0.4 ML (LOVENOX) SYR SC SCH (11:00)
--- NOTE | 2017-04-28 13:10 | Occ Therapy Progress Note ---
Therapy Progress Note Pt. on ventilator this date. Will continue to monitor pt., and will begin treatment when pt. off ventilator. [id number] JAILYN ASHER OT April 28, 2017 13:10
[2017-04-28] MEDS: AMIODARONE IV SOLUTION 200 ML IV SCH ×2 (16:03→21:46)
--- NOTE | 2017-04-28 16:47 | Cardiology Progress Note ---
Cardiology SOAP Progress Note Subjective: Events of overnight noted. Objective: I&O/Vital Signs Vital Sign - Last 12Hours 04/28/17 04/28/17 04/28/17 04/28/17 04:45 05:00 05:15 05:30 Pulse 106 111 113 118 Resp 20 23 27 22 B/P (MAP) 109/61 99/57 85/55 101/58 97/64 Pulse Ox 99 100 100 99 O2 Flow Rate 21.00 21.00 21.00 21.00 04/28/17 04/28/17 04/28/17 04/28/17 05:45 06:00 06:15 06:23 Pulse 121 126 114 106 Resp 23 21 24 23 B/P (MAP) 106/64 107/62 96/57 99/59 Pulse Ox 99 98 98 99 O2 Flow Rate 21.00 21.00 21.00 FiO2 21 04/28/17 04/28/17 04/28/17 04/28/17 06:30 06:45 07:00 07:00 Pulse 109 78 87 80 Resp 20 24 26 B/P (MAP) 109/65 125/65 Pulse Ox 99 96 96 O2 Flow Rate 21.00 21.00 FiO2 21 04/28/17 04/28/17 04/28/17 04/28/17 08:00 08:10 08:28 11:11 Temp 99.0 Pulse 82 78 Resp 27 22 Pulse Ox 99 97 98 FiO2 21 21 21 04/28/17 04/28/17 04/28/17 04/28/17 12:00 12:55 13:00 13:02 Temp 100.5 98.2 Pulse 76 Pulse Ox 99 FiO2 21 04/28/17 04/28/17 04/28/17 04/28/17 13:47 15:16 15:52 16:00 Temp 100.4 Pulse 66 79 Resp 23 22 Pulse Ox 97 98 99 FiO2 21 21 21 Intake and Output 04/28/17 00:00 Intake Total 2220 ml Output Total 2175 ml Balance 45 ml Weight (Pounds): 175 Weight (Ounces): 0.6 Weight (Calculated Kilograms): [id number] Constitutional: other (Intubated and ventilated) Respiratory: other (Bilateral air entry) Cardiovascular: tachycardia, S1 and S2, other (No murmur) Gastrointestional: other (Recent abdominal surgery) Extremities: no lower extremity edema bilateral Neurologic/Psychiatric: other (Intubated ventilated) Skin: No normal color, No warm/dry, No cyanosis, No cool, No diaphoresis, No damp, No ecchymosis, No jaundice, No mottled, No pallor, No rash, No tattoos/ piercings, No ulcerations, No rash on exposed areas, No ulcerations on exposed areas, No other Results/Procedures: Labs Laboratory Tests 04/27/17 18:13: Glucometer 95 04/27/17 18:14: Lactic Acid Level 3.86*H 04/27/17 22:20: Lactic Acid Level 3.16*H 04/28/17 00:04: Glucometer 81 04/28/17 01:55: Lactic Acid Level 2.70*H 04/28/17 04:30: White Blood Count 7.3, Red Blood Count 3.60L, Hemoglobin 10.5L, Hematocrit 31L, Mean Corpuscular Volume 85, Mean Corpuscular Hemoglobin 29, Mean Corpuscular Hemoglobin Concent 34, Red Cell Distribution Width 12.5, Platelet Count 81L, Mean Platelet Volume 11.0H, Neutrophils (%) (Auto) 92H, Lymphocytes (%) (Auto) 5L, Monocytes (%) (Auto) 3, Eosinophils (%) (Auto) 0, Basophils (%) (Auto) 0, Neutrophils # (Auto) 6.7, Lymphocytes # (Auto) 0.4L, Monocytes # (Auto) 0.2, Eosinophils # (Auto) 0.0, Basophils # (Auto) 0.0, Neutrophils % (Manual) 60, Lymphocytes % (Manual) 5, Monocytes % (Manual) 8, Eosinophils % (Manual) 0, Basophils % (Manual) 0, Band Neutrophils 27, Toxic Granulation 1+, Dohle Bodies SLIGHT, Rouleau SLIGHT, Blood Gas Puncture Site L FEMORAL DANIEL, Blood Gas Patient Temperature 98.3, Arterial Blood pH 7.46H, Arterial Blood Partial Pressure CO2 31L, Arterial Blood Partial Pressure O2 67L, Arterial Blood HCO3 21L, Arterial Blood Total CO2 22.3, Arterial Blood Oxygen Saturation 94, Arterial Blood Base Excess -2.0, Brannon Test ART LINE, Blood Gas Ventilator Setting YES, Blood Gas Inspired Oxygen 21%, Sodium Level 139, Potassium Level 3.5L, Chloride Level 109H, Carbon Dioxide Level 20L, Anion Gap 10, Blood Urea Nitrogen 25H, Creatinine 0.86, Estimat Glomerular Filtration Rate > 60, BUN/ Creatinine Ratio 29, Glucose Level 89, Calcium Level 8.0L, Phosphorus Level 3.3 , Magnesium Level 2.2 04/28/17 05:55: Lactic Acid Level 2.38*H 04/28/17 08:10: Blood Gas Puncture Site L femoral art, Blood Gas Patient Temperature 99.0, Arterial Blood pH 7.47H, Arterial Blood Partial Pressure CO2 30L, Arterial Blood Partial Pressure O2 58L, Arterial Blood HCO3 21L, Arterial Blood Total CO2 22.3, Arterial Blood Oxygen Saturation 91L, Arterial Blood Base Excess -1.6 , Brannon Test ART LINE, Blood Gas Ventilator Setting YES, Blood Gas Inspired Oxygen 21% 04/28/17 10:00: Blood Gas Puncture Site ART LINE, Blood Gas Patient Temperature 97.8, Arterial Blood pH 7.46H, Arterial Blood Partial Pressure CO2 30L, Arterial Blood Partial Pressure O2 63L, Arterial Blood HCO3 21L, Arterial Blood Total CO2 22.3, Arterial Blood Oxygen Saturation 94, Arterial Blood Base Excess -1.9, Brannon Test ART LINE, Blood Gas Ventilator Setting YES, Blood Gas Inspired Oxygen 21% 04/28/17 12:24: Glucometer 71 04/28/17 13:45: Lactic Acid Level 1.98 Microbiology 04/26/17 Blood Culture - Preliminary, Resulted No growth A/P: Assessment/Dx: Large bowel perforation, fecal peritonitis, severe septic shock. Nonsustained VT, Sustained SVT/atrial fibrillation Plan: Large bowel perforation status post emergent abdominal surgery by Dr. Ng. Peritonitis/severe septic shock: On broad-spectrum antibiotics. Significant improvement of shock. Off vasopressors. Nonsustained VT with normal blood pressure; will give amiodarone bolus and start on amiodarone drip. Electrolytes are being repleted. Atrial fibrillation overnight was given Cardizem. Converted back to sinus with deep suctioning. Thank you for your consultation. Please call me if you have any questions. Jung Foote MD, FACP, FACC, FSCAI, FHRS, CCDS Interventional Cardiology Cardiac Electrophysiology Vascular Medicine and Endovascular Interventions Darshana FOOTE MD April 28, 2017 4:47 pm
[2017-04-28] MEDS ORDERED: AMIODARONE FOR BOLUS 150 MG in D5W 100 ML IVPB 100 ML IV NR (17:00)
[2017-04-28] MEDS ORDERED: METOCLOPRAMIDE INJ 10 MG/2 ML (REGLAN) ONE (18:05)
[2017-04-28] MEDS: METOCLOPRAMIDE INJ 10 MG/2 ML (REGLAN) IVP SCH ×2 (18:14→23:40)
[2017-04-28] MEDS: DILTIAZEM DRIP 100 MG in SODIUM CHLORIDE (ADD-VANTAGE) 100 ML IV SCH (18:14)
[2017-04-29] VITALS (33 sets, daily range): BP systolic 116–172; BP diastolic 59–99
[2017-04-29 00:01] LABS: CALCIUM IONIZED 1.1 mmol/L (1.16-1.32); CORRECTED IONIZED CALCIUM 1.04 mmol/L (1.16-1.32)
[2017-04-29 00:17] LABS: CALCIUM IONIZED 1.16 mmol/L (1.16-1.32); CORRECTED IONIZED CALCIUM 1.11 mmol/L (1.16-1.32)
[2017-04-29] MEDS: LACTATED RINGERS 1,000 ML IV SCH (01:12)
[2017-04-29] MEDS: fentaNYL INJECTION 100 MCG/2 ML AMP IV PRN ×4 (01:57→22:30)
[2017-04-29 04:45] LABS: ABG BASE EXCESS -1.1 MMOL/L (-2.5-2.5); ABG HCO3 22 MMOL/L (23-27); ABG OXYGEN SATURATION 93 % (94-100); ABG PCO2 33 MMHG (35-45); ABG PH 7.45 (7.37-7.43); ABG PO2 65 MMHG (79-93); ABG TCO2 23.4 MMOL/L (21.0-31.0)
[2017-04-29 04:46] LABS: ALLENS TEST ART LINE; PATIENT TEMP 98.4
[2017-04-29] MEDS: POTASSIUM CL 10MEQ/50ML IVPB 50 ML IV SCH ×5 (04:50→08:59)
[2017-04-29] MEDS: NOREPINEPHRINE 4 MG in D5W 250 ML (IVPB) 250 ML IV SCH (04:50)
[2017-04-29] MEDS: KCL 20 MEQ TAB (K-DUR) PO SCH (04:51)
[2017-04-29] MEDS: MAGNESIUM 1 GM/100 ML IVPB 100 ML IV SCH (04:51)
[2017-04-29 05:03] LABS: BASOPHILS % (AUTO) 0 % (0-10); EOSINOPHILS % (AUTO) 0 % (0-10); LYMPHOCYTES # (AUTO) 0.6 X 10^3 (1.0-4.0); LYMPHOCYTES % (AUTO) 7 % (12-44); MEAN CORPUSCULAR HEMOGLOBIN 29 PG (25-34); MEAN CORPUSCULAR HGB CONC 35 G/DL (32-36); MEAN CORPUSCULAR VOLUME 84 FL (80-99); MEAN PLATELET VOLUME 11.3 FL (7.4-10.4); MONOCYTES # (AUTO) 0.5 X 10^3 (0.0-1.0); MONOCYTES % (AUTO) 6 % (0-12); NEUTROPHILS # (AUTO) 7.4 X 10^3 (1.8-7.8); NEUTROPHILS % (AUTO) 88 % (42-75); PLATELET COUNT 88 10^3/uL (130-400); RED CELL DISTRIBUTION WIDTH 12.8 % (10.0-14.5); WHITE BLOOD COUNT 8.4 10^3/uL (4.3-11.0)
[2017-04-29] MEDS: HYDROCORTISONE 100 MG/2 ML (Solu-CORTEF) VIAL IV SCH (05:04)
[2017-04-29] MEDS: METOCLOPRAMIDE INJ 10 MG/2 ML (REGLAN) IVP SCH ×3 (05:04→18:42)
[2017-04-29] MEDS: MEROPENEM 1 GM/NS 100 ML IVPB IV SCH ×6 (05:04→21:33)
[2017-04-29 05:20] LABS: ANION GAP 12 MMOL/L (5-14); BLOOD UREA NITROGEN 33 MG/DL (7-18); BUN/CREATININE RATIO 43; CARBON DIOXIDE 20 MMOL/L (21-32); CHLORIDE 109 MMOL/L (98-107); CREATININE SERUM 0.77 MG/DL (0.60-1.30); GFR ESTIMATED > 60; GLUCOSE 93 MG/DL (70-105); MAGNESIUM 2.3 MG/DL (1.8-2.4); PHOSPHORUS 3.1 MG/DL (2.3-4.7); SODIUM 141 MMOL/L (135-145)
--- NOTE | 2017-04-29 06:29 | Pulmonary Progress Note ---
Subjective Subjective/Events-last exam PT is doing much better. She is having a lot of OG output Exam Exam Vital Signs Date Time Temp Pulse Resp B/P (MAP) Pulse Ox O2 Delivery O2 Flow Rate FiO2 04/29/17 06:13 78 29 161/74 97 21.00 125/63 04/29/17 05:22 71 23 152/68 98 21.00 137/68 04/29/17 04:15 98 21.00 04/29/17 04:00 98.4 73 24 156/77 98 21.00 128/67 04/29/17 03:45 69 24 98 21 04/29/17 03:00 72 26 154/76 98 21.00 130/68 04/29/17 02:00 77 26 156/76 100 21.00 129/69 04/29/17 01:06 79 26 100 21 04/29/17 01:00 73 25 140/70 100 21.00 117/64 04/29/17 00:56 75 04/29/17 00:00 73 26 150/73 100 21.00 119/65 04/28/17 23:40 97 21.00 04/28/17 23:40 99.2 04/28/17 23:00 77 24 138/63 97 21.00 117/62 04/28/17 22:58 70 23 97 21 04/28/17 22:00 64 27 152/63 95 21.00 120/58 04/28/17 21:47 80 143/65 04/28/17 21:00 80 29 155/72 96 21.00 130/66 04/28/17 20:36 80 04/28/17 20:32 61 28 96 21 04/28/17 20:00 78 27 128/53 96 21.00 120/65 04/28/17 19:55 96 21.00 04/28/17 19:00 99.6 64 20 133/57 96 21.00 123/57 04/28/17 18:30 69 24 97 21 04/28/17 18:12 99.0 04/28/17 17:10 100.1 04/28/17 17:00 56 33 125/69 96 21.00 04/28/17 16:46 63 32 95 21 04/28/17 16:00 61 30 139/51 94 21.00 04/28/17 16:00 99 21 04/28/17 15:52 100.4 04/28/17 15:16 79 22 98 21 04/28/17 15:00 75 25 107/73 95 21.00 04/28/17 14:00 61 23 115/58 98 21.00 04/28/17 13:47 66 23 97 21 04/28/17 13:02 98.2 04/28/17 13:00 76 04/28/17 13:00 76 25 113/62 97 21.00 04/28/17 12:55 100.5 04/28/17 12:00 77 23 107/56 97 21.00 04/28/17 12:00 99 21 04/28/17 11:11 78 22 98 21 04/28/17 11:00 86 31 112/59 98 21.00 04/28/17 10:00 77 24 108/65 98 21.00 04/28/17 09:00 70 30 112/62 96 21.00 04/28/17 08:28 82 27 97 21 04/28/17 08:10 99.0 04/28/17 08:00 99 21 04/28/17 08:00 77 23 104/57 97 21.00 04/28/17 07:00 80 26 96 21 04/28/17 07:00 79 25 101/61 96 21.00 04/28/17 07:00 87 04/28/17 06:45 78 24 125/65 96 21.00 04/28/17 06:30 109 20 109/65 99 21.00 I & O 04/29/17 07:00 Intake Total 2763 ml Output Total 2618 ml Balance 145 ml General Appearance: WD/WN, Chronically ill, Other (sedated) HEENT: PERRL/EOMI, Normal ENT Inspection, Pharynx Normal, Other (ET tube in place) Neck: Full Range of Motion, Normal Inspection, Non Tender, Supple Respiratory: Chest Non Tender, Normal Breath Sounds, No Accessory Muscle Use, No Respiratory Distress, Decreased Breath Sounds Cardiovascular: Regular Rate, Rhythm, No Edema, No Gallop, No JVD, No Murmur, Normal Peripheral Pulses Capillary Refill: Less Than 3 Seconds Gastrointestinal: other Extremity: Normal Capillary Refill, Normal Inspection, Normal Range of Motion, Non Tender, No Calf Tenderness, No Pedal Edema, Pedal Edema, Swelling Neurologic/Psychiatric: Other (sedated on vent) Skin: Normal Color, Warm/Dry Lymphatic: No Adenopathy Results Lab Laboratory Tests 04/28/17 04:30 04/29/17 04:35 Assessment/Plan Assessment/Plan Acute respiratory failure since postop secondary to aspiration of bowel contents -continue ventilator support -Will start weaning ventilator and probably extubate tomorrow if everything is still improving -Diprivan Acute peritonitis with severe sepsis secondary to colonic perforation s/p surgery -Continue Merrem Diflucan Septic shock -- resolved -CVP monitoring -OFF Levophed and vasopressin D/C Solucortef Afib RVR- now converted back to sinus -Pt is on amio gtt Hypokalemia -replace and add KCL to IVF Metabolic acidosis -improving hypothyroid -Pt is getting IV Synthroid HX of SVT/AF -LABS AND CXR REVIEWED Decrease IVF 75cc/hr and add KCL to IVF . 233 Clinical Quality Measures DVT/VTE Risk/Contraindication: Risk Factor Score Per Nursin RFS Level Per Nursing on Admit: 4+=Very High CHRISS ARTIS DO April 29, 2017 06:29
[2017-04-29] MEDS ORDERED: RT-ALBUTEROL/IPRATROPIUM 3 ML (DUONEB) VIAL ONE (06:31)
[2017-04-29 07:01] LABS: CALCIUM PH 7.32
[2017-04-29 07:01] LABS: CALCIUM PH 7.3
--- NOTE | 2017-04-29 07:37 | ECHOCARDIOGRAPHY REPORT ---
DATE OF SERVICE: 04/27/2017 2D ECHOCARDIOGRAM ATTENDING PHYSICIAN: Dr. Ng PRIMARY PHYSICIAN: Dr. Mike Horvath ORDERING PHYSICIAN: Dr. Jung Foote. DIAGNOSIS: Shock. FINDINGS: 1. Tachycardia with frequent PVCs. 2. Left atrial dimension is normal. 3. Aortic root dimension is normal. 4. Left ventricular systolic function is borderline. EF is 50%. No LVH is present. 5. There are no wall motion abnormalities. 6. Right heart function is normal. 7. There is no evidence of pericardial effusion. 8. Diastolic evaluation was not performed. 9. IVC was not well visualized. VALVULAR STRUCTURE OF THE HEART: There is trace aortic insufficiency with mild tricuspid regurgitation. RVSP is 39 mmHg. There is thickened mitral valve leaflets with trace mitral regurgitation. CONCLUSION: 1. This is a technically difficult study with numerous views, which were restricted due to recent abdominal surgery. The patient is in significant shock. She is also intubated and ventilated. 2. Borderline LV function with an EF of 50%. 3. There are no wall motion abnormalities. 4. No significant valvular heart disease. 5. Mild pulmonary hypertension with RVSP of 39 mmHg. Job ID: [id number] DocumentID: [id number] Dictated Date: 04/27/2017 14:21:16 Scientific Director Date: 04/27/2017 15:02:31 Dictated By: ZARINA FOOTE MD
[2017-04-29] MEDS: POTASSIUM CHLORIDE INJ 20 MEQ in LACTATED RINGERS 1,000 ML IV SCH ×2 (07:44→21:33)
[2017-04-29] MEDS ORDERED: TPN IV SCH (07:45)
--- NOTE | 2017-04-29 08:05 | Progress Note-Hospitalist ---
Progress Note HPI/CC on Admission CC: Management of critical illness with acute peritonitis due to bowel perforation with aspiration of bowel contents during intubation HPI: This is a 61-year-old white female clinic patient of Dr. 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 Apparently she was wanting to go to [place] and used to suppository like she usually does because she is struggle with constipation since cardiac meds have been initiated several years ago but at noon time she started having a lot of pain to the extent that required emergency room evaluation. CT scan was obtained found to have bowel perforation with peritonitis and during intubation for surgery she aspirated bowel contents so she now has a diverting colostomy but the pictures during surgery appeared to have a multitude of impacted bowel contents within the abdominal cavity. I did speak with Dr. Horvath her primary care provider and employer and it appears that she is not up-to-date on her colonoscopy and has not had one before and she has had significant constipation issues for the past several years so I hypothesized that impacted stool has been an ongoing problem for her probably stretching the tissue over a long period time and finally rupturing causing this critical illness. She is requiring high doses of Levophed and closely monitoring due to severe sepsis and multisystem organ failure. She has received aggressive IV fluids per protocol and currently monitor closely due to history of arrhythmia maintained on Rythmol as an outpatient. She sees Dr. Kings benitez at [place] after she failed undergoing ablation up in [place] years ago. I have consulted cardiology and dredging inspector and eICU to facilitate management of this critically ill patient. Progress Notes/Assess & Plan Date Seen 04/29/17 Admission Dx/Process Assessment: Acute peritonitis from colonic perforation with impacted stool with history of severe chronic constipation status post diverting colostomy POD # 1 Aspiration of bowel contents during intubation for surgery with ventilator- dependent respiratory failure currently History of SVT/AF status post attempted ablation an unsuccessful maintained on Rythmol by Dr. Ku cardiology [place] History of hypertension Hypothyroidism Leukopenia due to sepsis Hypokalemia Diagonsis/Assessment & Plan Patient is much improved and able to communicate a bit even with ETT Plan for extubation tomorrow Good urinary output due to IV fluid aggressive regimen now giving one dose of Lasix Ordered TPN but not started yet. Maintained on broad-spectrum antibiotics Appreciate pulmonology input Still critically ill but much improved I reviewed labs and culture results OGT still with increased output so feedings will be held for now and will start TPN Episode of AF occurred but but no further episodes No fever, vital signs stable much improved 120/68, O x 3 RRR, Coarse breath sounds upper lobes from ventilator otherwise diminished in the bases 1+ edema lower extremities Colostomy in place Laboratory Tests 04/29/17 04:35 Assessment: Acute peritonitis from colonic perforation with impacted stool with history of severe chronic constipation status post diverting colostomy POD # 4 with septic shock requiring pressors and aggressive IVF management now improved and more stable likely to extubate tomorrow Aspiration of bowel contents during intubation for surgery with ventilator- dependent respiratory failure currently maintained on Meropenem and s/p Diflucan History of SVT status post attempted ablation and unsuccessful maintained on Rythmol by Dr. Ku cardiology [place] consulted Dr Nettles and his recs are appreciated and had an episode of AF 2 nights ago resolved with suctioning History of hypertension Hypothyroidism Leukopenia due to sepsis resolved today Hypokalemia replacing Metabolic acidosis due to sepsis Thrombocytopenia due to sepsis Plan: Replace potassium per protocol Maintain ventilator and appreciate Dr Causey's expertise Empiric antibiotics for peritonitis and aspiration of bowel contents Cardiology recs are appreciated Monitor labs Maintain colostomy SCDs TPN Doing better DVAY ROME DO April 29, 2017 08:05
[2017-04-29] MEDS: NS IV SCH (08:21)
[2017-04-29] MEDS: PHENYLEPHRINE IV SCH (08:21)
[2017-04-29] MEDS: FLUCONAZOLE 100 MG/50 ML 50 ML IV SCH (09:04)
[2017-04-29] MEDS: PANTOPRAZOLE 40 MG/10 ML (PROTONIX) VIAL IVP SCH (09:04)
[2017-04-29] MEDS: RT-ALBUTEROL/IPRATROPIUM 3 ML (DUONEB) VIAL INH SCH ×3 (09:04→22:07)
--- NOTE | 2017-04-29 09:19 | Diagnostic Imaging Report ---
INDICATION: Respiratory failure. EXAMINATION: Portable chest at 4:48 AM. FINDINGS: An ET tube projects over the trachea. The NG tube projects over the stomach. The right IJ central line tip projects over the SVC. The heart size and pulmonary vascularity are normal. The lungs are clear. There are no effusions or pneumothoraces. IMPRESSION: No acute abnormalities in the chest. Dictated by: Dictated on workstation # [id number]
[2017-04-29] MEDS ORDERED: POTASSIUM CL 10MEQ/50ML IVPB 50 ML IV NR (10:00)
--- NOTE | 2017-04-29 10:04 | Physical Therapy Evaluation ---
PT Evaluation-General Medical Diagnosis Admission Date April 25, 2017 at 23:50 Medical Diagnosis: segmoid perf with fecal peritonitis Onset Date: April 26, 2017 Therapy Diagnosis Therapy Diagnosis: weakness Height/Weight Height (Feet): 5 Height (Inches): 8.00 Weight (Pounds): 171 Weight (Ounces): 0.0 Precautions Precautions/Isolations: Standard Precautions Referral Physician: Rigo Reason for Referral: Evaluation/Treatment Medical History Pertinent Medical History: Arthritis, HTN, Hypothroidism Additional Medical History chronic constipation Current History Recent hx of abdominal pain; presented to ED, found to have above diagnosis and followed with colon resection and diverting colostomy. currently on a Ventilator. Reviewed History: Yes Social History Pt sedated and ventilated, unable to obtain home information. No family present at this time. 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 PT Evaluation-Current Subjective Opens eyes occasionally. Nods to some questions. Shakes her head "no" when asked if she has pain. Objective Attachments: SCD's, Colostomy/Ileostomy, Drains, Ventilator, Reynolds Catheter, IV ROM/Strength ROM Upper Extremities WFL PROM ROM Lower Extremities WFL PROM Integumentary/Posture Integumentary Refer to nursing notes. Bowel Incontinence: Yes Bladder Incontinence: Reynolds Cath Posture NT Neuromuscular (Tone, Coordination, Reflexes) NT Transfers Functional [place] Measure 0=Not Assessed/NA 4=Minimal Assistance 1=Total Assistance 5=Supervision or Setup 2=Maximal Assistance 6=Modified [place] 3=Moderate Assistance 7=Complete [place] NT at this time; ventilated and sedated. Nursing reports total care with bed mobility and rolling. Gait Comments/Gait Description NT Balance Special Test Comments NT Treatment PROM B U/LE's all planes. Assessment/Needs Post bowel perforation with sepsis with severe leukopenia. Pt currently sedated. However, Dr. Ng requests PT to proceed with PROM and progress as she has less sedation. Pt will benefit from PROM with progression to AROM and functional mobility and strength as able. 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 Pt does nod to agree when this therapist initiated treatment. Time/GCodes Time In: 935 Time Out: 1000 Total Billed Treatment Time: 25 Total Billed Treatment 1 EVH 10 EX 15 LILY MATTHEWS PT April 29, 2017 10:04
--- NOTE | 2017-04-29 10:39 | Cardiology Progress Note ---
Cardiology SOAP Progress Note Subjective: No further atrial or ventricular ectopy overnight. Objective: I&O/Vital Signs Vital Sign - Last 12Hours 04/28/17 04/28/17 04/29/17 04/29/17 23:40 23:40 00:00 00:56 Temp 99.2 Pulse 73 75 Resp 26 B/P (MAP) 150/73 119/65 Pulse Ox 97 100 O2 Flow Rate 21.00 21.00 04/29/17 04/29/17 04/29/17 04/29/17 01:00 01:06 02:00 03:00 Pulse 73 79 77 72 Resp 25 26 26 26 B/P (MAP) 140/70 156/76 154/76 117/64 129/69 130/68 Pulse Ox 100 100 100 98 O2 Flow Rate 21.00 21.00 21.00 FiO2 21 04/29/17 04/29/17 04/29/17 04/29/17 03:45 04:00 04:15 05:22 Temp 98.4 Pulse 69 73 71 Resp 24 24 23 B/P (MAP) 156/77 152/68 128/67 137/68 Pulse Ox 98 98 98 98 O2 Flow Rate 21.00 21.00 21.00 FiO2 21 04/29/17 04/29/17 04/29/17 04/29/17 06:13 06:45 07:00 07:51 Temp 97.0 Pulse 78 64 67 Resp 29 20 B/P (MAP) 161/74 125/63 Pulse Ox 97 98 O2 Flow Rate 21.00 FiO2 21 04/29/17 04/29/17 04/29/17 08:00 09:00 11:04 Pulse 66 66 Resp 26 27 Pulse Ox 99 98 97 FiO2 21 21 21 Intake and Output 04/29/17 00:00 Intake Total 1623 ml Output Total 1330 ml Balance 293 ml Weight (Pounds): 171 Weight (Ounces): 0.0 Weight (Calculated Kilograms): [id number] Constitutional: other (Intubated and ventilated) Respiratory: other (Bilateral air entry) Cardiovascular: tachycardia, S1 and S2, other (No murmur) Gastrointestional: other (Recent abdominal surgery) Extremities: no lower extremity edema bilateral Neurologic/Psychiatric: other (Intubated ventilated) Skin: No normal color, No warm/dry, No cyanosis, No cool, No diaphoresis, No damp, No ecchymosis, No jaundice, No mottled, No pallor, No rash, No tattoos/ piercings, No ulcerations, No rash on exposed areas, No ulcerations on exposed areas, No other Results/Procedures: Labs Laboratory Tests 04/28/17 12:24: Glucometer 71 04/28/17 13:45: Lactic Acid Level 1.98 04/28/17 18:23: Glucometer 92 04/28/17 23:52: Glucometer 93 04/29/17 04:35: White Blood Count 8.4, Red Blood Count 3.50L, Hemoglobin 10.2L, Hematocrit 30L, Mean Corpuscular Volume 84, Mean Corpuscular Hemoglobin 29, Mean Corpuscular Hemoglobin Concent 35, Red Cell Distribution Width 12.8, Platelet Count 88L, Mean Platelet Volume 11.3H, Neutrophils (%) (Auto) 88H, Lymphocytes (%) (Auto) 7L, Monocytes (%) (Auto) 6, Eosinophils (%) (Auto) 0, Basophils (%) (Auto) 0, Neutrophils # (Auto) 7.4, Lymphocytes # (Auto) 0.6L, Monocytes # (Auto) 0.5, Eosinophils # (Auto) 0.0, Basophils # (Auto) 0.0, Blood Gas Puncture Site L FEM DANIEL, Blood Gas Patient Temperature 98.4, Arterial Blood pH 7.45H, Arterial Blood Partial Pressure CO2 33L, Arterial Blood Partial Pressure O2 65L, Arterial Blood HCO3 22L, Arterial Blood Total CO2 23.4, Arterial Blood Oxygen Saturation 93L, Arterial Blood Base Excess -1.1, Brannon Test ART LINE, Blood Gas Ventilator Setting YES, Blood Gas Inspired Oxygen 21%, Sodium Level 141, Potassium Level 3.0L, Chloride Level 109H, Carbon Dioxide Level 20L, Anion Gap 12, Blood Urea Nitrogen 33H, Creatinine 0.77, Estimat Glomerular Filtration Rate > 60, BUN/Creatinine Ratio 43, Glucose Level 93, Calcium Level 8.0L, Phosphorus Level 3.1, Magnesium Level 2.3 04/29/17 10:11: Microbiology 04/26/17 Blood Culture - Preliminary, Resulted No growth A/P: Assessment/Dx: Large bowel perforation, fecal peritonitis, severe septic shock. Nonsustained VT, Sustained SVT/atrial fibrillation Plan: Large bowel perforation status post emergent abdominal surgery by Dr. Ng. Peritonitis/severe septic shock: On broad-spectrum antibiotics. Significant improvement of shock. Off vasopressors. Nonsustained VT with normal blood pressure; was given amiodarone bolus and started on amiodarone drip. Significant improvement in atrial and ventricular ectopy. Electrolytes are being repleted. No further atrial fibrillation overnight. Thank you for your consultation. Please call me if you have any questions. Jung Foote MD, FACP, FACC, FSCAI, FHRS, CCDS Interventional Cardiology Cardiac Electrophysiology Vascular Medicine and Endovascular Interventions Darshana FOOTE MD April 29, 2017 10:39 am
--- NOTE | 2017-04-29 10:42 | Occ Therapy Progress Note ---
Therapy Progress Note Pt continues to be on ventilator. PT performed PROM to all extremities this date. Will continue to monitor and initiate evaluation when pt is off vent HUMAIRA MOSER OT April 29, 2017 10:42
[2017-04-29] MEDS: LEVOTHYROXINE 100 MCG INJ (SYNTHROID) VIAL IV SCH (11:09)
[2017-04-29] MEDS: PROPOFOL DRIP (ICU) 100 ML IV SCH ×2 (11:14→15:49)
--- NOTE | 2017-04-29 14:01 | Progress Note-Standard ---
Standard Progress Note Progress Notes/Assess & Plan Progress/Assessment & Plan 04/26/17:septic with severe leukopenia. Very poor urine output. On dual vasopressors. Sinus tachycardia. Outcome poor with expected mortality. Central venous pressure around 12. We'll continue to provide fluid resuscitation and maintain vasopressors for now. 04/27/17:continues to require vasopressor support. Urine output reasonable. Creatinine slightly elevated. Ventilation and oxygenation stable. Will place a wound VAC tomorrow. Continue supportive abdomen. Enteral nutrition in 24- 48 hours. DVT prophylaxis with low molecular weight heparin, renally adjusted dose 04/28/17:off the vasopressors. Renal function reasonable.NG output more than 1 L and therefore tube feeding will be delayed.electrolytes satisfactory.we'll continue current management. 04/29/17:Improving. Would facilitate diuresis before embarking on extubation. Intra-abdominal abscesses to be looked for by next week. L femoral arterial line satisfactory with no distal ischemia. Nutritional support in 24-48 hours. Final Diagnosis Fecal peritonitis MACY TALAVERA MD April 29, 2017 2:01 pm
[2017-04-29] MEDS: meTOprolol 5 MG/5 ML (LOPRESSOR) VIAL IV PRN ×2 (14:21→17:31)
[2017-04-29] MEDS: DILTIAZEM DRIP 100 MG in SODIUM CHLORIDE (ADD-VANTAGE) 100 ML IV SCH (15:47)
[2017-04-29] MEDS: FONDAPARINUX 2.5 MG (ARIXTRA) SYR NON-FORMULARY SQ SCH (16:58)
[2017-04-30] VITALS (29 sets, daily range): BP systolic 124–157; BP diastolic 52–76
[2017-04-30] MEDS: METOCLOPRAMIDE INJ 10 MG/2 ML (REGLAN) IVP SCH ×4 (00:54→18:34)
[2017-04-30] MEDS: RT-ALBUTEROL/IPRATROPIUM 3 ML (DUONEB) VIAL INH SCH ×4 (02:20→20:20)
[2017-04-30 04:56] LABS: ABG BASE EXCESS -0.1 MMOL/L (-2.5-2.5); ABG HCO3 23 MMOL/L (23-27); ABG OXYGEN SATURATION 87 % (94-100); ABG PCO2 32 MMHG (35-45); ABG PH 7.47 (7.37-7.43); ABG PO2 53 MMHG (79-93); ABG TCO2 24.3 MMOL/L (21.0-31.0)
[2017-04-30] MEDS: PROPOFOL DRIP (ICU) 100 ML IV SCH (04:59)
[2017-04-30 05:01] LABS: PATIENT TEMP 97.6
[2017-04-30 05:08] LABS: ANION GAP 12 MMOL/L (5-14); BLOOD UREA NITROGEN 36 MG/DL (7-18); BUN/CREATININE RATIO 55; CALCIUM 7.9 MG/DL (8.5-10.1); CARBON DIOXIDE 22 MMOL/L (21-32); CHLORIDE 111 MMOL/L (98-107); CREATININE SERUM 0.66 MG/DL (0.60-1.30); GFR ESTIMATED > 60; GLUCOSE 88 MG/DL (70-105); MAGNESIUM 2.3 MG/DL (1.8-2.4); PHOSPHORUS 2.3 MG/DL (2.3-4.7); POTASSIUM 3.3 MMOL/L (3.6-5.0); SODIUM 145 MMOL/L (135-145)
[2017-04-30 05:14] LABS: BASOPHILS % (AUTO) 0 % (0-10); EOSINOPHILS % (AUTO) 0 % (0-10); LYMPHOCYTES # (AUTO) 0.7 X 10^3 (1.0-4.0); LYMPHOCYTES % (AUTO) 5 % (12-44); MEAN CORPUSCULAR HEMOGLOBIN 30 PG (25-34); MEAN CORPUSCULAR HGB CONC 35 G/DL (32-36); MEAN CORPUSCULAR VOLUME 85 FL (80-99); MEAN PLATELET VOLUME 11.7 FL (7.4-10.4); MONOCYTES # (AUTO) 0.4 X 10^3 (0.0-1.0); MONOCYTES % (AUTO) 3 % (0-12); NEUTROPHILS # (AUTO) 13.5 X 10^3 (1.8-7.8); NEUTROPHILS % (AUTO) 92 % (42-75); PLATELET COUNT 115 10^3/uL (130-400); RED BLOOD COUNT 3.89 10^6/uL (4.35-5.85); RED CELL DISTRIBUTION WIDTH 13.6 % (10.0-14.5); WHITE BLOOD COUNT 14.8 10^3/uL (4.3-11.0)
[2017-04-30] MEDS: POTASSIUM CL 10MEQ/50ML IVPB 50 ML IV SCH ×5 (05:22→08:06)
[2017-04-30] MEDS: MAGNESIUM 1 GM/100 ML IVPB 100 ML IV SCH (05:23)
[2017-04-30] MEDS: KCL 20 MEQ TAB (K-DUR) PO SCH (05:23)
[2017-04-30] MEDS: MEROPENEM 1 GM/NS 100 ML IVPB IV SCH ×6 (05:39→22:11)
[2017-04-30 06:00] LABS: BAND NEUTROPHILS 18 %; LYMPHOCYTES % (MANUAL) 4 %; NEUTROPHILS % (MANUAL) 72 %; POLYCHROMASIA SLIGHT
[2017-04-30] MEDS ORDERED: D5 1/2 NS W/KCL 20 MEQ/L 1,000 ML IV ONE (06:37)
--- NOTE | 2017-04-30 06:43 | Pulmonary Progress Note ---
Subjective Subjective/Events-last exam Sedated on vent. worsening LA and rising WBC. Exam Exam Vital Signs Date Time Temp Pulse Resp B/P (MAP) Pulse Ox O2 Delivery O2 Flow Rate FiO2 04/30/17 06:00 93 28 125/54 94 21.00 132/68 04/30/17 05:00 80 30 149/62 94 21.00 127/63 04/30/17 04:59 99.2 92 28 135/71 95 Mechanical Ventilator 21.00 04/30/17 04:00 95 21 04/30/17 04:00 100 29 132/52 94 21.00 129/68 04/30/17 03:00 92 28 146/61 95 21.00 135/71 04/30/17 02:20 84 30 95 21 04/30/17 02:00 100 30 145/65 94 21.00 137/67 04/30/17 01:00 97 31 140/61 95 21.00 132/69 04/30/17 01:00 89 04/30/17 00:56 99.2 04/30/17 00:20 92 30 94 21 04/30/17 00:00 95 21 04/30/17 00:00 91 28 139/60 93 21.00 136/61 04/29/17 23:00 86 29 143/60 92 21.00 128/66 04/29/17 22:07 83 24 95 21 04/29/17 22:00 71 24 153/69 95 21.00 127/66 04/29/17 21:00 93 30 154/72 96 21.00 129/63 04/29/17 20:30 79 27 96 21 04/29/17 20:00 98.3 21.00 04/29/17 20:00 75 28 134/66 97 21.00 123/59 04/29/17 20:00 96 21 04/29/17 19:00 79 04/29/17 19:00 83 24 131/65 98 21.00 116/61 04/29/17 18:00 82 27 145/74 98 21.00 123/63 04/29/17 17:54 71 21 97 21 04/29/17 17:00 137 26 123/67 97 21.00 129/73 04/29/17 16:07 125 27 97 21 04/29/17 16:00 97.4 04/29/17 16:00 97 21 04/29/17 16:00 131 22 125/70 96 21.00 117/77 04/29/17 15:49 134/73 04/29/17 15:00 116 29 141/66 96 21.00 136/82 04/29/17 14:26 131 29 96 21 04/29/17 14:00 125 30 141/76 94 21.00 139/97 04/29/17 13:00 116 04/29/17 13:00 106 24 172/85 95 21.00 139/99 04/29/17 12:00 98 21 04/29/17 12:00 97.8 62 21 137/70 97 04/29/17 11:04 66 27 97 21 04/29/17 11:00 68 28 156/62 99 21.00 138/67 04/29/17 10:00 68 27 145/93 98 21.00 128/72 04/29/17 09:00 69 24 157/73 98 21.00 134/70 04/29/17 09:00 66 26 98 21 04/29/17 08:00 65 26 156/70 98 21.00 125/66 04/29/17 08:00 99 21 04/29/17 07:51 97.0 04/29/17 07:00 63 27 131/75 97 21.00 04/29/17 07:00 67 04/29/17 06:45 64 20 98 21 I & O 04/30/17 07:00 Intake Total 1710 ml Output Total 3390 ml Balance -1680 ml General Appearance: WD/WN, Chronically ill, Other (sedated) HEENT: PERRL/EOMI, Normal ENT Inspection, Pharynx Normal, Other (ET tube in place) Neck: Full Range of Motion, Normal Inspection, Non Tender, Supple Respiratory: Chest Non Tender, Normal Breath Sounds, No Accessory Muscle Use, No Respiratory Distress, Decreased Breath Sounds Cardiovascular: Regular Rate, Rhythm, No Edema, No Gallop, No JVD, No Murmur, Normal Peripheral Pulses Capillary Refill: Less Than 3 Seconds Gastrointestinal: other Extremity: Normal Capillary Refill, Normal Inspection, Normal Range of Motion, Non Tender, No Calf Tenderness, No Pedal Edema, Pedal Edema, Swelling Neurologic/Psychiatric: Other (sedated on vent) Skin: Normal Color, Warm/Dry Lymphatic: No Adenopathy Results Lab Laboratory Tests 04/29/17 04:35 04/30/17 04:40 Assessment/Plan Assessment/Plan Acute respiratory failure since postop secondary to aspiration of bowel contents -continue ventilator support -Hold off on weaning secondary rising WBC, lactic acid and need of additional IVF -Bolus 1 liter of LR (pt is still having a lot of OG output) -Diprivan Acute peritonitis with severe sepsis secondary to colonic perforation s/p surgery -Continue Merrem Diflucan add vancomycin - secondary to rising leukocytosis -repeat garcía cultures and repeat CBC to ensure accuracy worsening lactic acidosis -increase ivf to 150 with D51/2 Afib RVR- now converted back to sinus -Pt is on amio gtt Hypoglycemia -Change IVF to 1/2 NS with D5 and 20 of KCL at 150 Hypokalemia -replace and add KCL to IVF hypothyroid -Pt is getting IV Synthroid HX of SVT/AF -LABS AND CXR REVIEWED 233 30min spent with patient Clinical Quality Measures DVT/VTE Risk/Contraindication: Risk Factor Score Per Nursin RFS Level Per Nursing on Admit: 4+=Very High CHRISS ARTIS DO Apr 30, 2017 06:42
[2017-04-30] MEDS: D5 1/2 NS W/KCL 20 MEQ/L 1,000 ML IV SCH ×3 (06:47→21:01)
[2017-04-30] MEDS ORDERED: PHARMACY TO DOSE IV SCH (07:00)
[2017-04-30] MEDS ORDERED: SODIUM PHOSPHATE INJ 15 MM in NS (IVPB) 100 ML IV NR (07:00)
[2017-04-30] MEDS ORDERED: LACTATED RINGERS 1,000 ML IV ONE (07:00)
--- NOTE | 2017-04-30 07:17 | Diagnostic Imaging Report ---
INDICATION: Ventilated patient. Followup. COMPARISON: 04/29/2017 FINDINGS: Single frontal radiographic view of the chest was obtained and demonstrates endotracheal tube just below the clavicular heads. Enteric tube tip terminates likely within the stomach. Right internal jugular central venous catheter tip terminates in the SVC. Lungs show asymmetric diffuse hazy opacification on the right. There is persistent cardiomegaly. Pulmonary vasculature, however, is within normal limits. Left hemidiaphragm is obscured. No pneumothorax is seen on either side. IMPRESSION: 1. Lines and tubes as above. 2. Diffuse hazy opacification of the right hemithorax. Findings could be on the basis of partially layering effusion. Correlation with lateral view may be of benefit. 3. Findings suspicious for left basilar atelectasis and/or infiltrate. Underlying effusion is not excluded. Dictated by: Dictated on workstation # [id number]
[2017-04-30 07:54] LABS: MEAN PLATELET VOLUME 11.9 FL (7.4-10.4); RED BLOOD COUNT 3.71 10^6/uL (4.35-5.85); RED CELL DISTRIBUTION WIDTH 13.7 % (10.0-14.5); WHITE BLOOD COUNT 15.7 10^3/uL (4.3-11.0)
[2017-04-30] MEDS ORDERED: VANCOMYCIN 1,750 MG/NS 500 ML IVPB IV NR ×2 (08:00)
[2017-04-30 08:15] LABS: ALANINE AMINOTRANSFERASE 14 U/L (0-55); ANION GAP 9 MMOL/L (5-14); ASPARTATE AMINO TRANSFERASE 31 U/L (5-34); BILIRUBIN,TOTAL 1.3 MG/DL (0.1-1.0); BLOOD UREA NITROGEN 37 MG/DL (7-18); BUN/CREATININE RATIO 58; CALCIUM 7.7 MG/DL (8.5-10.1); CARBON DIOXIDE 22 MMOL/L (21-32); CHLORIDE 113 MMOL/L (98-107); CREATININE SERUM 0.64 MG/DL (0.60-1.30); GFR ESTIMATED > 60; GLUCOSE 107 MG/DL (70-105); POTASSIUM 3.7 MMOL/L (3.6-5.0); SODIUM 144 MMOL/L (135-145); TOTAL PROTEIN 3.9 G/DL (6.4-8.2)
[2017-04-30] MEDS: PANTOPRAZOLE 40 MG/10 ML (PROTONIX) VIAL IVP SCH (08:22)
[2017-04-30] MEDS: FLUCONAZOLE 100 MG/50 ML 50 ML IV SCH (08:22)
[2017-04-30] MEDS: fentaNYL INJECTION 100 MCG/2 ML AMP IV PRN (08:23)
[2017-04-30] MEDS ORDERED: MIDAZOLAM INJECTION FOR DRIPS 50 MG in NS (IVPB) 90 ML IV SCH (09:45)
[2017-04-30] MEDS ORDERED: FONDAPARINUX 2.5 MG/0.5 ML SQ SCH (10:00)
--- NOTE | 2017-04-30 10:34 | Progress Note-Standard ---
Standard Progress Note Progress Notes/Assess & Plan Progress/Assessment & Plan 04/26/17:septic with severe leukopenia. Very poor urine output. On dual vasopressors. Sinus tachycardia. Outcome poor with expected mortality. Central venous pressure around 12. We'll continue to provide fluid resuscitation and maintain vasopressors for now. 04/27/17:continues to require vasopressor support. Urine output reasonable. Creatinine slightly elevated. Ventilation and oxygenation stable. Will place a wound VAC tomorrow. Continue supportive abdomen. Enteral nutrition in 24- 48 hours. DVT prophylaxis with low molecular weight heparin, renally adjusted dose 04/28/17:off the vasopressors. Renal function reasonable.NG output more than 1 L and therefore tube feeding will be delayed.electrolytes satisfactory.we'll continue current management. 04/29/17:Improving. Would facilitate diuresis before embarking on extubation. Intra-abdominal abscesses to be looked for by next week. L femoral arterial line satisfactory with no distal ischemia. Nutritional support in 24-48 hours. 04/30/17:slight change in her condition with decreased urine output and leukocytosis. Abdominal abscess in evolution very likely the culprit. More opacification of the right lung. We will try enteral feeding. Continue antibiotics Final Diagnosis fecal peritonitis. Sepsis MACY TALAVERA MD Apr 30, 2017 10:34 am
--- NOTE | 2017-04-30 10:45 | Physical Therapy Daily Note ---
PT Daily Note-Current Subjective sedated and on ventilator Mental Status Patient Orientation: Unresponsive Attachments: Drains, Ventilator, Reynolds Catheter, IV Transfers Functional [place] Measure 0=Not Assessed/NA 4=Minimal Assistance 1=Total Assistance 5=Supervision or Setup 2=Maximal Assistance 6=Modified [place] 3=Moderate Assistance 7=Complete IndependenceIRFPAI Quality Coding Scale 6 Independent with activity with or without an assistive device 5 Patient requires set up or clean up by helper. Patient completes activity by themselves 4 Supervision or touching assist (CGA). [place] provide cues , steadying assist 3 The helper provides less than half the effort to complete the activity 2 The helper provides more than half the effort to complete the activity 1 Dependent. The helper does all the effort to complete an activity 7 Patient refused to complete or attempt activity 9 The patient did not perform the activity before the current illness or injury 88 Not attempted due to Medical conditions or safety concerns Exercises Supine Ex: Ankle pumps, Heel Slides, Straight leg raise, Hip abd/add Supine Reps: 15 (PROM bilateral LE) Assessment PROM performed PT Refrigeration Installer Goals Refrigeration Installer Goals PT Care Home Goals Time Frame: May 13, 2017 Transfers (B,C,W/C) (FIM): 4 Gait (FIM): 2 Gait distance (FIM): 1=up to 49 ft Gait Assistive Device: FWW PT Plan Treatment/Plan Treatment Plan: Continue Plan of Care Treatment Plan: Bed Mobility, Education, Functional Activity Carlos A, Functional Strength, Gait, Safety, Therapeutic Exercise, Transfers Treatment Duration: May 13, 2017 Visits Per Week: 5-11 Time/GCodes Time In: 1005 Time Out: 1015 Total Billed Treatment Time: 10 Total Billed Treatment 1 visit EX 10 min JOSE CARUSO PT Apr 30, 2017 10:45
--- NOTE | 2017-04-30 11:07 | Occ Therapy Progress Note ---
Therapy Progress Note 1058 Pt is still sedated and on vent. PT is doing PROM. Will do OT evaluation when pt is more alert and able to participate. WENDY WATKINS OT Apr 30, 2017 11:07
--- NOTE | 2017-04-30 11:11 | Progress Note-Hospitalist ---
Progress Note HPI/CC on Admission CC: Management of critical illness with acute peritonitis due to bowel perforation with aspiration of bowel contents during intubation HPI: This is a 61-year-old white female clinic patient of Dr. 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 Apparently she was wanting to go to [place] and used to suppository like she usually does because she is struggle with constipation since cardiac meds have been initiated several years ago but at noon time she started having a lot of pain to the extent that required emergency room evaluation. CT scan was obtained found to have bowel perforation with peritonitis and during intubation for surgery she aspirated bowel contents so she now has a diverting colostomy but the pictures during surgery appeared to have a multitude of impacted bowel contents within the abdominal cavity. I did speak with Dr. Horvath her primary care provider and employer and it appears that she is not up-to-date on her colonoscopy and has not had one before and she has had significant constipation issues for the past several years so I hypothesized that impacted stool has been an ongoing problem for her probably stretching the tissue over a long period time and finally rupturing causing this critical illness. She is requiring high doses of Levophed and closely monitoring due to severe sepsis and multisystem organ failure. She has received aggressive IV fluids per protocol and currently monitor closely due to history of arrhythmia maintained on Rythmol as an outpatient. She sees Dr. Kings benitez at [facility] after she failed undergoing ablation up in [place] years ago. I have consulted cardiology and pt sitter and eICU to facilitate management of this critically ill patient. Progress Notes/Assess & Plan Date Seen 04/30/17 Admission Dx/Process Assessment: Acute peritonitis from colonic perforation with impacted stool with history of severe chronic constipation status post diverting colostomy POD # 1 Aspiration of bowel contents during intubation for surgery with ventilator- dependent respiratory failure currently History of SVT/AF status post attempted ablation an unsuccessful maintained on Rythmol by Dr. Ku cardiology [facility] History of hypertension Hypothyroidism Leukopenia due to sepsis Hypokalemia Diagonsis/Assessment & Plan Chart Review: Low grade fever 99.6 WBC 15.7 Platelets 103k ABG 7.47/32/53 Lactic acid 2.[address] 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 Pt's labs were discussed with the family Physical exam stable. No fever, vital signs stable much improved 120/68, sedated RRR, Coarse breath sounds now resolved Colostomy in place Laboratory Tests 04/30/17 04:40 04/30/17 07:28 Assessment: Acute peritonitis from colonic perforation with impacted stool with long history of severe chronic constipation status post diverting colostomy POD # 5 with septic shock requiring pressors and aggressive IVF management now improved and more stable but but unable to extubate as tentatively planned Aspiration of bowel contents during intubation for surgery with ventilator- dependent respiratory failure currently maintained on Meropenem and s/p Diflucan History of SVT status post attempted ablation and unsuccessful maintained on Rythmol by Dr. Ku cardiology [facility] consulted Dr Nettles and his recs are appreciated and had an episode of AF 4 nights ago resolved with suctioning History of hypertension Hypothyroidism Leukopenia due to sepsis now leukocytosis Hypokalemia replacing Metabolic acidosis due to sepsis Thrombocytopenia due to sepsis improved Plan: Replace potassium per protocol Maintain ventilator and appreciate Dr Causey's expertise Empiric antibiotics for peritonitis and aspiration of bowel contents Cardiology recs are appreciated Monitor labs Maintain colostomy SCDs TPN Stable but guarded Scribed by Teresita Hathaway under the direct supervision of Dr. Rome. DAVY ROME DO Apr 30, 2017 11:11
[2017-04-30] MEDS: fentaNYL INJECTION 1,250 MCG in NS (IVPB) 225 ML IV SCH (11:19)
[2017-04-30] MEDS ORDERED: NS (IVPB) 250 ML ONE (11:39)
--- NOTE | 2017-04-30 14:17 | Cardiology Progress Note ---
Cardiology SOAP Progress Note Subjective: less ventricular ectopy Objective: I&O/Vital Signs Vital Sign - Last 12Hours 04/30/17 04/30/17 04/30/17 04/30/17 04:59 05:00 06:00 06:39 Temp 99.2 Pulse 92 80 93 93 Resp 28 30 28 25 B/P (MAP) 135/71 149/62 125/54 127/63 132/68 Pulse Ox 95 94 94 94 O2 Delivery Mechanical Ventilator O2 Flow Rate 21.00 21.00 21.00 FiO2 21 04/30/17 04/30/17 04/30/17 04/30/17 07:00 08:00 09:21 10:50 Temp 99.6 Pulse 101 90 91 Resp 26 29 Pulse Ox 96 97 FiO2 21 21 04/30/17 04/30/17 04/30/17 04/30/17 11:14 12:00 13:00 14:24 Temp 99.4 Pulse 86 79 Resp 20 26 B/P (MAP) 149/73 Pulse Ox 96 98 O2 Delivery Mechanical Ventilator FiO2 21 Intake and Output 04/30/17 00:00 Intake Total 1310 ml Output Total 2045 ml Balance -735 ml Weight (Pounds): 174 Weight (Ounces): 0.0 Weight (Calculated Kilograms): 78.609803 Constitutional: other (Intubated and ventilated) Respiratory: other (Bilateral air entry) Cardiovascular: tachycardia, S1 and S2, other (No murmur) Gastrointestional: other (Recent abdominal surgery) Extremities: no lower extremity edema bilateral Neurologic/Psychiatric: other (Intubated ventilated) Skin: No normal color, No warm/dry, No cyanosis, No cool, No diaphoresis, No damp, No ecchymosis, No jaundice, No mottled, No pallor, No rash, No tattoos/ piercings, No ulcerations, No rash on exposed areas, No ulcerations on exposed areas, No other Results/Procedures: Labs Laboratory Tests 04/30/17 02:15: Lactic Acid Level 2.25*H 04/30/17 04:40: Lactic Acid Level 2.31*H, White Blood Count 14.8H, Red Blood Count 3.89L, Hemoglobin 11.5, Hematocrit 33L, Mean Corpuscular Volume 85, Mean Corpuscular Hemoglobin 30, Mean Corpuscular Hemoglobin Concent 35, Red Cell Distribution Width 13.6, Platelet Count 115L, Mean Platelet Volume 11.7H, Neutrophils (%) ( Auto) 92H, Lymphocytes (%) (Auto) 5L, Monocytes (%) (Auto) 3, Eosinophils (%) ( Auto) 0, Basophils (%) (Auto) 0, Neutrophils # (Auto) 13.5H, Lymphocytes # (Auto ) 0.7L, Monocytes # (Auto) 0.4, Eosinophils # (Auto) 0.0, Basophils # (Auto) 0.0 , Neutrophils % (Manual) 72, Lymphocytes % (Manual) 4, Monocytes % (Manual) 6, Band Neutrophils 18, Nucleated Red Blood Cells 1, Polychromasia SLIGHT, Sodium Level 145, Potassium Level 3.3L, Chloride Level 111H, Carbon Dioxide Level 22, Anion Gap 12, Blood Urea Nitrogen 36H, Creatinine 0.66, Estimat Glomerular Filtration Rate > 60, BUN/Creatinine Ratio 55, Glucose Level 88, Calcium Level 7.9L, Phosphorus Level 2.3, Magnesium Level 2.3 04/30/17 04:50: Blood Gas Puncture Site LT FEMORAL, Blood Gas Patient Temperature 97.6, Arterial Blood pH 7.47H, Arterial Blood Partial Pressure CO2 32L, Arterial Blood Partial Pressure O2 53L, Arterial Blood HCO3 23, Arterial Blood Total CO2 24.3, Arterial Blood Oxygen Saturation 87L, Arterial Blood Base Excess -0.1, Brannon Test NA, Blood Gas Ventilator Setting YES, Blood Gas Inspired Oxygen 21% 04/30/17 06:50: Lactic Acid Level 2.32*H 04/30/17 07:28: White Blood Count 15.7H, Red Blood Count 3.71L, Hemoglobin 11.0L, Hematocrit 32L , Mean Corpuscular Volume 85, Mean Corpuscular Hemoglobin 30, Mean Corpuscular Hemoglobin Concent 35, Red Cell Distribution Width 13.7, Platelet Count 103L, Mean Platelet Volume 11.9H, Sodium Level 144, Potassium Level 3.7, Chloride Level 113H, Carbon Dioxide Level 22, Anion Gap 9, Blood Urea Nitrogen 37H, Creatinine 0.64, Estimat Glomerular Filtration Rate > 60, BUN/Creatinine Ratio 58, Glucose Level 107H, Calcium Level 7.7L, Total Bilirubin 1.3H, Aspartate Amino Transf (AST/SGOT) 31, Alanine Aminotransferase (ALT/SGPT) 14, Alkaline Phosphatase 33L, Total Protein 3.9L, Albumin 2.0L 04/30/17 08:45: Lactic Acid Level 2.01*H 04/30/17 12:00: Lactic Acid Level 1.80 Microbiology 04/26/17 Blood Culture - Preliminary, Resulted No growth A/P: Assessment/Dx: Large bowel perforation, fecal peritonitis, severe septic shock. Nonsustained VT, Sustained SVT/atrial fibrillation Plan: Large bowel perforation status post emergent abdominal surgery by Dr. Ng. Peritonitis/severe septic shock: On broad-spectrum antibiotics. Significant improvement of shock. Off vasopressors. Nonsustained VT with normal blood pressure; was given amiodarone bolus and started on amiodarone drip. Significant improvement in atrial and ventricular ectopy. Electrolytes are being repleted. Will start by mouth amiodarone 200 mg daily. No further atrial fibrillation overnight. Thank you for your consultation. Please call me if you have any questions. Jung Foote MD, FACP, FACC, FSCAI, FHRS, CCDS Interventional Cardiology Cardiac Electrophysiology Vascular Medicine and Endovascular Interventions Darshana FOOTE MD Apr 30, 2017 2:17 pm
[2017-04-30] MEDS: FONDAPARINUX 2.5 MG (ARIXTRA) SYR NON-FORMULARY SQ SCH (16:38)
[2017-04-30] MEDS: VANCOMYCIN 1250 MG/NS 250 ML IVPB IV SCH ×2 (20:50)
[2017-04-30] MEDS: DILTIAZEM DRIP 100 MG in SODIUM CHLORIDE (ADD-VANTAGE) 100 ML IV SCH (22:34)
[2017-05-01] VITALS (34 sets, daily range): BP systolic 115–153; BP diastolic 55–94
[2017-05-01] MEDS: METOCLOPRAMIDE INJ 10 MG/2 ML (REGLAN) IVP SCH ×4 (00:29→16:27)
[2017-05-01] MEDS: RT-ALBUTEROL/IPRATROPIUM 3 ML (DUONEB) VIAL INH SCH ×4 (01:57→20:43)
[2017-05-01 04:30] LABS: BASOPHILS # (AUTO) 0.3 10^3/uL (0.0-0.1); BASOPHILS % (AUTO) 2 % (0-10); EOSINOPHILS % (AUTO) 0 % (0-10); LYMPHOCYTES # (AUTO) 1.5 X 10^3 (1.0-4.0); LYMPHOCYTES % (AUTO) 9 % (12-44); MEAN CORPUSCULAR HEMOGLOBIN 29 PG (25-34); MEAN CORPUSCULAR HGB CONC 33 G/DL (32-36); MEAN CORPUSCULAR VOLUME 87 FL (80-99); MEAN PLATELET VOLUME 11.5 FL (7.4-10.4); MONOCYTES # (AUTO) 1.7 X 10^3 (0.0-1.0); MONOCYTES % (AUTO) 11 % (0-12); NEUTROPHILS # (AUTO) 12.4 X 10^3 (1.8-7.8); NEUTROPHILS % (AUTO) 78 % (42-75); PLATELET COUNT 124 10^3/uL (130-400); RED BLOOD COUNT 3.62 10^6/uL (4.35-5.85); WHITE BLOOD COUNT 15.9 10^3/uL (4.3-11.0)
[2017-05-01] MEDS: D5 1/2 NS W/KCL 20 MEQ/L 1,000 ML IV SCH ×3 (04:50→22:13)
[2017-05-01 05:03] LABS: ANION GAP 6 MMOL/L (5-14); BLOOD UREA NITROGEN 32 MG/DL (7-18); BUN/CREATININE RATIO 59; CALCIUM 7.5 MG/DL (8.5-10.1); CARBON DIOXIDE 24 MMOL/L (21-32); CHLORIDE 115 MMOL/L (98-107); CREATININE SERUM 0.54 MG/DL (0.60-1.30); GFR ESTIMATED > 60; GLUCOSE 147 MG/DL (70-105); MAGNESIUM 2.2 MG/DL (1.8-2.4); PHOSPHORUS 2.2 MG/DL (2.3-4.7); POTASSIUM 4.5 MMOL/L (3.6-5.0); SODIUM 145 MMOL/L (135-145)
[2017-05-01 05:26] LABS: ABG BASE EXCESS -0.7 MMOL/L (-2.5-2.5); ABG HCO3 24 MMOL/L (23-27); ABG OXYGEN SATURATION 83 % (94-100); ABG PCO2 42 MMHG (35-45); ABG PH 7.37 (7.37-7.43); ABG PO2 50 MMHG (79-93); ABG TCO2 25.5 MMOL/L (21.0-31.0); ALLENS TEST ART LINE; PATIENT TEMP 96.9
[2017-05-01] MEDS: MEROPENEM 1 GM/NS 100 ML IVPB IV SCH ×6 (05:51→22:12)
[2017-05-01] MEDS: MAGNESIUM 1 GM/100 ML IVPB 100 ML IV SCH (06:33)
[2017-05-01] MEDS: POTASSIUM CL 10MEQ/50ML IVPB 50 ML IV SCH (06:33)
[2017-05-01] MEDS: KCL 20 MEQ TAB (K-DUR) PO SCH (06:33)
--- NOTE | 2017-05-01 07:37 | Pulmonary Progress Note ---
Exam Exam Vital Signs Date Time Temp Pulse Resp B/P (MAP) Pulse Ox O2 Delivery O2 Flow Rate FiO2 05/01/17 06:16 90 19 90 21 05/01/17 06:00 81 22 138/68 94 21.00 05/01/17 05:00 71 24 123/83 93 21.00 05/01/17 04:15 78 22 95 21 05/01/17 04:00 82 22 146/63 95 21.00 05/01/17 04:00 96.9 05/01/17 03:00 89 22 141/67 95 21.00 05/01/17 02:00 99 20 153/65 94 21.00 05/01/17 01:57 88 20 95 21 05/01/17 01:00 86 21 134/63 95 21.00 05/01/17 01:00 93 05/01/17 00:00 97.2 05/01/17 00:00 89 23 95 21 04/30/17 22:12 96 20 97 21 04/30/17 20:20 97 21 96 21 04/30/17 20:00 90 20 127/67 97 21.00 04/30/17 20:00 97.8 04/30/17 19:00 106 22 130/69 100 21.00 04/30/17 19:00 101 04/30/17 18:21 99 20 95 21 04/30/17 18:00 91 22 131/63 100 21.00 04/30/17 17:00 92 19 133/69 100 21.00 04/30/17 16:00 112 23 126/70 96 21.00 04/30/17 16:00 102 23 99 21 04/30/17 16:00 99.4 04/30/17 15:00 104 22 135/66 95 21.00 04/30/17 14:24 79 26 98 21 04/30/17 14:00 80 27 147/65 97 21.00 04/30/17 13:00 86 04/30/17 13:00 89 26 150/74 95 21.00 04/30/17 12:00 99.4 04/30/17 11:14 20 149/73 96 Mechanical Ventilator 04/30/17 11:00 81 27 157/76 96 21.00 133/73 04/30/17 10:50 91 29 97 21 04/30/17 10:00 78 23 140/59 96 21.00 130/60 04/30/17 09:21 90 26 96 21 04/30/17 09:00 97 26 151/65 96 21.00 148/54 04/30/17 08:00 99.6 04/30/17 08:00 97 22 142/60 95 21.00 126/52 I & O 05/01/17 07:00 Intake Total 100 ml Output Total 1895 ml Balance -1795 ml General Appearance: WD/WN, Chronically ill, Other (sedated) HEENT: PERRL/EOMI, Normal ENT Inspection, Pharynx Normal, Other (ET tube in place) Neck: Full Range of Motion, Normal Inspection, Non Tender, Supple Respiratory: Chest Non Tender, Normal Breath Sounds, No Accessory Muscle Use, No Respiratory Distress, Decreased Breath Sounds Cardiovascular: Regular Rate, Rhythm, No Edema, No Gallop, No JVD, No Murmur, Normal Peripheral Pulses Capillary Refill: Less Than 3 Seconds Gastrointestinal: other Extremity: Normal Capillary Refill, Normal Inspection, Normal Range of Motion, Non Tender, No Calf Tenderness, No Pedal Edema, Pedal Edema, Swelling Neurologic/Psychiatric: Other (sedated on vent) Skin: Normal Color, Warm/Dry Lymphatic: No Adenopathy Results Lab Laboratory Tests 04/30/17 04:40 04/30/17 07:28 05/01/17 04:20 Assessment/Plan Assessment/Plan Acute respiratory failure since postop secondary to aspiration of bowel contents -continue ventilator support -will start weaning vent when ok with Dr. Ng -vesed/fentanyl gtt -Continue TF Acute peritonitis with severe sepsis secondary to colonic perforation s/p surgery -Continue Merrem Diflucan vancomycin -repeat garcía cultures -pending lactic acidosis - resolved -decrease IVF to 100cc/hr Vascular congestion -decrease IVF and give lasix 40mg x 1 thrombocytopenia - improving -HIT Abx is negative -Arixtra Atelectasis and pulmonary edema -monitor CXR Afib RVR- now converted back to sinus -Pt is on amio gtt Hypoglycemia - IVF to 1/2 NS with D5 hypothyroid -Pt is getting IV Synthroid HX of SVT/AF -LABS AND CXR REVIEWED 233 30min spent with patient Clinical Quality Measures DVT/VTE Risk/Contraindication: Risk Factor Score Per Nursin RFS Level Per Nursing on Admit: 4+=Very High CHRISS ARTIS DO May 01, 2017 07:37
[2017-05-01] MEDS ORDERED: FUROSEMIDE 40 MG/4 ML INJ (LASIX) IVP NR (07:45)
[2017-05-01] MEDS ORDERED: SODIUM PHOSPHATE INJ 30 MM in NS (IVPB) 250 ML IV NR (07:45)
[2017-05-01] MEDS: VANCOMYCIN 1250 MG/NS 250 ML IVPB IV SCH ×2 (07:56)
[2017-05-01] MEDS: AMIODARONE 200 MG (CORDARONE) TAB PO SCH (08:04)
[2017-05-01] MEDS: FLUCONAZOLE 100 MG/50 ML 50 ML IV SCH (08:04)
[2017-05-01] MEDS: PANTOPRAZOLE 40 MG/10 ML (PROTONIX) VIAL IVP SCH (08:06)
[2017-05-01] MEDS: fentaNYL INJECTION 1,250 MCG in NS (IVPB) 225 ML IV SCH (08:12)
--- NOTE | 2017-05-01 10:00 | Cardiology Progress Note ---
Cardiology SOAP Progress Note Subjective: No significant ectopy overnight Objective: I&O/Vital Signs Vital Sign - Last 12Hours 05/01/17 05/01/17 05/01/17 05/01/17 00:00 00:00 01:00 01:00 Temp 97.2 Pulse 89 93 86 Resp 23 21 B/P (MAP) 134/63 Pulse Ox 95 95 O2 Flow Rate 21.00 FiO2 21 05/01/17 05/01/17 05/01/17 05/01/17 01:57 02:00 03:00 04:00 Temp 96.9 Pulse 88 99 89 Resp 20 20 22 B/P (MAP) 153/65 141/67 Pulse Ox 95 94 95 O2 Flow Rate 21.00 21.00 FiO2 21 05/01/17 05/01/17 05/01/17 05/01/17 04:00 04:15 05:00 06:00 Pulse 82 78 71 81 Resp 22 22 24 22 B/P (MAP) 146/63 123/83 138/68 Pulse Ox 95 95 93 94 O2 Flow Rate 21.00 21.00 21.00 FiO2 21 05/01/17 05/01/17 05/01/17 05/01/17 06:16 07:00 07:00 08:00 Temp 99.5 Pulse 90 89 91 Resp 19 19 B/P (MAP) 140/68 126/70 Pulse Ox 90 89 O2 Flow Rate 21.00 21.00 FiO2 21 05/01/17 05/01/17 05/01/17 05/01/17 09:00 09:17 10:00 11:18 Pulse 110 96 93 90 Resp 20 21 19 22 B/P (MAP) 130/66 135/60 Pulse Ox 99 98 91 93 O2 Flow Rate 21.00 21.00 FiO2 40 21 Intake and Output 05/01/17 00:00 Output Total 1315 ml Balance -1315 ml Weight (Pounds): 180 Weight (Ounces): 0.0 Weight (Calculated Kilograms): [id number] Constitutional: other (Intubated and ventilated) Respiratory: other (Bilateral air entry) Cardiovascular: tachycardia, S1 and S2, other (No murmur) Gastrointestional: other (Recent abdominal surgery) Extremities: no lower extremity edema bilateral Neurologic/Psychiatric: other (Intubated ventilated) Skin: No normal color, No warm/dry, No cyanosis, No cool, No diaphoresis, No damp, No ecchymosis, No jaundice, No mottled, No pallor, No rash, No tattoos/ piercings, No ulcerations, No rash on exposed areas, No ulcerations on exposed areas, No other Results/Procedures: Labs Laboratory Tests 04/30/17 12:00: Lactic Acid Level 1.80 04/30/17 17:20: Lactic Acid Level 1.93 04/30/17 18:52: Glucometer 139H 04/30/17 22:00: Lactic Acid Level 1.97 05/01/17 02:15: Lactic Acid Level 1.93 05/01/17 04:20: White Blood Count 15.9H, Red Blood Count 3.62L, Hemoglobin 10.5L, Hematocrit 32L , Mean Corpuscular Volume 87, Mean Corpuscular Hemoglobin 29, Mean Corpuscular Hemoglobin Concent 33, Red Cell Distribution Width 14.0, Platelet Count 124L, Mean Platelet Volume 11.5H, Neutrophils (%) (Auto) 78H, Lymphocytes (%) (Auto) 9L, Monocytes (%) (Auto) 11, Eosinophils (%) (Auto) 0, Basophils (%) (Auto) 2, Neutrophils # (Auto) 12.4H, Lymphocytes # (Auto) 1.5, Monocytes # (Auto) 1.7H, Eosinophils # (Auto) 0.0, Basophils # (Auto) 0.3H, Blood Gas Puncture Site RIGHT RADIAL, Blood Gas Patient Temperature 96.9, Arterial Blood pH 7.37, Arterial Blood Partial Pressure CO2 42, Arterial Blood Partial Pressure O2 50L, Arterial Blood HCO3 24, Arterial Blood Total CO2 25.5, Arterial Blood Oxygen Saturation 83L, Arterial Blood Base Excess -0.7, Brannon Test ART LINE, Blood Gas Ventilator Setting YES, Blood Gas Inspired Oxygen 21%, Sodium Level 145, Potassium Level 4.5, Chloride Level 115H, Carbon Dioxide Level 24, Anion Gap 6, Blood Urea Nitrogen 32H, Creatinine 0.54L, Estimat Glomerular Filtration Rate > 60, BUN/Creatinine Ratio 59, Glucose Level 147H, Calcium Level 7.5L, Phosphorus Level 2.2L, Magnesium Level 2.2 05/01/17 05:45: Lactic Acid Level 1.82 05/01/17 09:20: Lactic Acid Level 0.73 Microbiology 04/26/17 Blood Culture - Preliminary, Resulted No growth A/P: Assessment/Dx: Large bowel perforation, fecal peritonitis, severe septic shock. Nonsustained VT, Sustained SVT/atrial fibrillation Plan: Large bowel perforation status post emergent abdominal surgery by Dr. Ng. Peritonitis/severe septic shock: On broad-spectrum antibiotics. Significant improvement of shock. Off vasopressors. May get extubated today. Nonsustained VT with normal blood pressure; was given amiodarone bolus and started on amiodarone drip. Significant improvement in atrial and ventricular ectopy. Electrolytes are being repleted. Amiodarone 200 mg daily started yesterday. No further atrial fibrillation in the last [address] Whitney to cover cardiology services over the weekend. Thank you for your consultation. Please call me if you have any questions. Jung Foote MD, FACP, FACC, FSCAI, FHRS, CCDS Interventional Cardiology Cardiac Electrophysiology Vascular Medicine and Endovascular Interventions Darshana FOOTE MD May 01, 2017 10:00
--- NOTE | 2017-05-01 11:37 | Physical Therapy Daily Note ---
PT Daily Note-Current Subjective currently on ventilator and sedated Transfers Functional [place] Measure 0=Not Assessed/NA 4=Minimal Assistance 1=Total Assistance 5=Supervision or Setup 2=Maximal Assistance 6=Modified [place] 3=Moderate Assistance 7=Complete IndependenceIRFPAI Quality Coding Scale 6 Independent with activity with or without an assistive device 5 Patient requires set up or clean up by helper. Patient completes activity by themselves 4 Supervision or touching assist (CGA). [place] provide cues , steadying assist 3 The helper provides less than half the effort to complete the activity 2 The helper provides more than half the effort to complete the activity 1 Dependent. The helper does all the effort to complete an activity 7 Patient refused to complete or attempt activity 9 The patient did not perform the activity before the current illness or injury 88 Not attempted due to Medical conditions or safety concerns Exercises Supine Ex: Ankle pumps, Heel Slides, Straight leg raise, Hip abd/add Supine Reps: 10 Assessment Patient tolerated bilateral UE and LE PROM in supine position x 10 minutes PT Nursing Home Goals Heatset Winder Operator Goals PT Heatset Winder Operator Goals Time Frame: May 13, 2017 Transfers (B,C,W/C) (FIM): 4 Gait (FIM): 2 Gait distance (FIM): 1=up to 49 ft Gait Assistive Device: FWW PT Plan Treatment/Plan Treatment Plan: Continue Plan of Care Treatment Plan: Bed Mobility, Education, Functional Activity Carlos A, Functional Strength, Gait, Safety, Therapeutic Exercise, Transfers Treatment Duration: May 13, 2017 Visits Per Week: 5-11 Time/GCodes Time In: 1051 Time Out: 1101 Total Billed Treatment Time: 10 Total Billed Treatment 1 visit EX 10 min JSOE CARUSO PT May 01, 2017 11:36
--- NOTE | 2017-05-01 11:42 | Progress Note-Hospitalist ---
Progress Note HPI/CC on Admission CC: Management of critical illness with acute peritonitis due to bowel perforation with aspiration of bowel contents during intubation HPI: This is a 61-year-old white female clinic patient of Dr. 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 Apparently she was wanting to go to [place] and used to suppository like she usually does because she is struggle with constipation since cardiac meds have been initiated several years ago but at noon time she started having a lot of pain to the extent that required emergency room evaluation. CT scan was obtained found to have bowel perforation with peritonitis and during intubation for surgery she aspirated bowel contents so she now has a diverting colostomy but the pictures during surgery appeared to have a multitude of impacted bowel contents within the abdominal cavity. I did speak with Dr. Horvath her primary care provider and employer and it appears that she is not up-to-date on her colonoscopy and has not had one before and she has had significant constipation issues for the past several years so I hypothesized that impacted stool has been an ongoing problem for her probably stretching the tissue over a long period time and finally rupturing causing this critical illness. She is requiring high doses of Levophed and closely monitoring due to severe sepsis and multisystem organ failure. She has received aggressive IV fluids per protocol and currently monitor closely due to history of arrhythmia maintained on Rythmol as an outpatient. She sees Dr. Kings benitez at [place] after she failed undergoing ablation up in [place] years ago. I have consulted cardiology and copy preparer and eICU to facilitate management of this critically ill patient. Progress Notes/Assess & Plan Date Seen 05/01/17 Admission Dx/Process Assessment: Acute peritonitis from colonic perforation with impacted stool with history of severe chronic constipation status post diverting colostomy POD # 1 Aspiration of bowel contents during intubation for surgery with ventilator- dependent respiratory failure currently History of SVT/AF status post attempted ablation an unsuccessful maintained on Rythmol by Dr. 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 Causey Her numbers are improved The ABG and platelets are looking better Her saturation is a little lower today around 92 Patient Interview: Pt is showing a little bit of improvement at this time I explained to the family that we will see where we are tomorrow to see about getting the tube out Her BP is looking good at this time Pt's family states that she will be a little upset when she wakes up with the tube in her mouth I educated the family that this is a slow improvement that will take time No fever, vital signs stable much improved 130/82, sedated RRR, Coarse breath sounds now resolved Colostomy in place Laboratory Tests 05/01/17 04:20 Assessment: Acute peritonitis from colonic perforation with impacted stool with long history of severe chronic constipation status post diverting colostomy POD # 6 with septic shock requiring pressors and aggressive IVF management now improved and more stable but but unable to extubate as tentatively planned but will begin the wean process today Aspiration of bowel contents during intubation for surgery with ventilator- dependent respiratory failure currently maintained on Meropenem and s/p Diflucan History of SVT status post attempted ablation and unsuccessful maintained on Rythmol by Dr. Ku cardiology [place] consulted Dr Nettles and his recs are appreciated and had an episode of AF 4 nights ago resolved with suctioning History of hypertension Hypothyroidism Leukopenia due to sepsis now leukocytosis Hypokalemia replacing Metabolic acidosis due to sepsis Thrombocytopenia due to sepsis improved Plan: Replace potassium per protocol Maintain ventilator and appreciate Dr Causey's expertise Empiric antibiotics for peritonitis and aspiration of bowel contents Cardiology recs are appreciated Monitor labs Maintain colostomy SCDs TPN Stable but guarded Possible ET tube removal tomorrow if successful weaning Scribed by Teresita Hathaway under the direct supervision of Dr. Rome. DAVY ROME DO May 01, 2017 11:41
--- NOTE | 2017-05-01 11:57 | Diagnostic Imaging Report ---
EXAM: Postoperative radiograph of the chest. INDICATION: Respiratory failure. COMPARISON: 04/30/2017. FINDINGS: Again seen is ET tube with the tip at the level of the clavicles and right IJ venous line at the level of the SVC. There is cardiomegaly. Bibasilar infiltrates are again noted with no definite change. A small to moderate left pleural effusion is probably present. No pneumothorax. IMPRESSION: Bibasilar infiltrates. Dictated by: Dictated on workstation # [id number]
--- NOTE | 2017-05-01 12:02 | Occ Therapy Progress Note ---
Therapy Progress Note Date Seen by Provider: May 01, 2017 Time Seen by Provider: 11:06 Pt still on vent, sedated and hands in restraints. PT is doing PROM to bilat UEs. Will do OT evaluation when she is more responsive and able to participate. WENDY WATKINS OT May 01, 2017 12:02
--- NOTE | 2017-05-01 13:43 | Progress Note-Standard ---
Standard Progress Note Progress Notes/Assess & Plan Date Seen by Provider: May 01, 2017 Time Seen by Provider: 11:06 Progress/Assessment & Plan 04/26/17:septic with severe leukopenia. Very poor urine output. On dual vasopressors. Sinus tachycardia. Outcome poor with expected mortality. Central venous pressure around 12. We'll continue to provide fluid resuscitation and maintain vasopressors for now. 04/27/17:continues to require vasopressor support. Urine output reasonable. Creatinine slightly elevated. Ventilation and oxygenation stable. Will place a wound VAC tomorrow. Continue supportive abdomen. Enteral nutrition in 24- 48 hours. DVT prophylaxis with low molecular weight heparin, renally adjusted dose 04/28/17:off the vasopressors. Renal function reasonable.NG output more than 1 L and therefore tube feeding will be delayed.electrolytes satisfactory.we'll continue current management. 04/29/17:Improving. Would facilitate diuresis before embarking on extubation. Intra-abdominal abscesses to be looked for by next week. L femoral arterial line satisfactory with no distal ischemia. Nutritional support in 24-48 hours. 04/30/17:slight change in her condition with decreased urine output and leukocytosis. Abdominal abscess in evolution very likely the culprit. More opacification of the right lung. We will try enteral feeding. Continue antibiotics 05/01/17 Diuresis in progress. Pressure mattress appropriate to prevent skin breakdown. Fascia intact. Tolerating tube feeds. Vent weaning over terrie next 24- 48 hours. HIT antibodies negative Final Diagnosis Fecal peritonitis MACY TALAVERA MD May 01, 2017 1:43 pm
[2017-05-01] MEDS ORDERED: MIDAZOLAM INJECTION FOR DRIPS 50 MG in NS (IVPB) 90 ML IV SCH (15:24)
[2017-05-01] MEDS ORDERED: fentaNYL INJECTION 1,250 MCG in NS (IVPB) 225 ML IV SCH (15:24)
[2017-05-01] MEDS: FONDAPARINUX 2.5 MG (ARIXTRA) SYR NON-FORMULARY SQ SCH (16:27)
[2017-05-01] MEDS ORDERED: TROUGH ORDER-PHARMACY XX NR (19:00)
[2017-05-02] VITALS (30 sets, daily range): BP systolic 112–150; BP diastolic 55–73
[2017-05-02] MEDS: METOCLOPRAMIDE INJ 10 MG/2 ML (REGLAN) IVP SCH ×4 (00:06→17:20)
[2017-05-02] MEDS: fentaNYL INJECTION 100 MCG/2 ML AMP IV PRN (02:07)
[2017-05-02] MEDS: RT-ALBUTEROL/IPRATROPIUM 3 ML (DUONEB) VIAL INH SCH ×4 (02:23→20:27)
[2017-05-02 04:31] LABS: MEAN CORPUSCULAR HEMOGLOBIN 29 PG (25-34); MEAN CORPUSCULAR HGB CONC 33 G/DL (32-36); MEAN CORPUSCULAR VOLUME 88 FL (80-99); PLATELET COUNT 155 10^3/uL (130-400); RED BLOOD COUNT 3.58 10^6/uL (4.35-5.85); RED CELL DISTRIBUTION WIDTH 14.5 % (10.0-14.5); WHITE BLOOD COUNT 18.5 10^3/uL (4.3-11.0)
[2017-05-02 04:32] LABS: ABG BASE EXCESS 1.4 MMOL/L (-2.5-2.5); ABG HCO3 26 MMOL/L (23-27); ABG OXYGEN SATURATION 86 % (94-100); ABG PCO2 46 MMHG (35-45); ABG PH 7.37 (7.37-7.43); ABG PO2 50 MMHG (79-93); ABG TCO2 27.7 MMOL/L (21.0-31.0)
[2017-05-02 04:36] LABS: ALLENS TEST YES-POS
[2017-05-02 05:07] LABS: ANION GAP 8 MMOL/L (5-14); BLOOD UREA NITROGEN 34 MG/DL (7-18); BUN/CREATININE RATIO 67; CALCIUM 7.4 MG/DL (8.5-10.1); CARBON DIOXIDE 23 MMOL/L (21-32); CHLORIDE 117 MMOL/L (98-107); CREATININE SERUM 0.51 MG/DL (0.60-1.30); GFR ESTIMATED > 60; GLUCOSE 156 MG/DL (70-105); MAGNESIUM 2.4 MG/DL (1.8-2.4); PHOSPHORUS 2.8 MG/DL (2.3-4.7); POTASSIUM 4.8 MMOL/L (3.6-5.0); SODIUM 148 MMOL/L (135-145)
[2017-05-02] MEDS: MEROPENEM 1 GM/NS 100 ML IVPB IV SCH ×6 (06:07→22:39)
--- NOTE | 2017-05-02 07:14 | Pulmonary Progress Note ---
Subjective Subjective/Events-last exam pt appears improved. still over sedated will give her more time to wake up. Exam Exam Vital Signs Date Time Temp Pulse Resp B/P (MAP) Pulse Ox O2 Delivery O2 Flow Rate FiO2 05/02/17 06:14 87 20 94 21 05/02/17 06:00 81 23 138/72 96 21.00 05/02/17 05:00 104 19 127/72 96 21.00 05/02/17 04:37 87 20 96 21 05/02/17 04:00 105 18 139/72 95 21.00 05/02/17 03:00 90 21 139/67 92 21.00 05/02/17 02:23 96 23 91 21 05/02/17 02:00 93 21 129/65 95 21.00 05/02/17 01:00 87 20 127/65 95 21.00 05/02/17 01:00 102 05/02/17 00:14 85 23 96 21 05/02/17 00:00 97.0 05/02/17 00:00 101 20 128/68 95 21.00 05/01/17 23:00 91 26 137/70 94 21.00 05/01/17 22:03 92 24 96 21 05/01/17 22:00 95 20 126/94 95 21.00 05/01/17 21:00 81 21 137/62 96 21.00 05/01/17 20:43 79 23 95 21 05/01/17 20:00 98.6 05/01/17 20:00 89 24 125/64 96 21.00 05/01/17 19:00 100 21 121/55 97 21.00 05/01/17 19:00 99 05/01/17 18:59 83 22 96 21 05/01/17 18:00 106 21 116/60 96 21.00 05/01/17 17:00 111 22 117/63 96 21.00 05/01/17 16:30 99.2 05/01/17 16:00 102 21 132/62 92 21.00 05/01/17 15:59 106 23 93 21 05/01/17 15:00 98 20 144/71 92 21.00 05/01/17 14:00 108 23 131/66 92 21.00 05/01/17 13:33 98 22 93 21 05/01/17 13:00 102 21 115/69 92 21.00 05/01/17 13:00 115 05/01/17 12:00 107 20 125/64 93 21.00 05/01/17 11:18 90 22 93 21 05/01/17 11:00 96 20 134/70 92 21.00 05/01/17 10:00 93 19 135/60 91 21.00 05/01/17 09:17 96 21 98 40 05/01/17 09:00 110 20 130/66 99 21.00 05/01/17 08:00 99.5 126/70 21.00 I & O 05/02/17 07:00 Output Total 1994 ml Balance -1994 ml General Appearance: WD/WN, Chronically ill, Other (sedated) HEENT: PERRL/EOMI, Normal ENT Inspection, Pharynx Normal, Other (ET tube in place) Neck: Full Range of Motion, Normal Inspection, Non Tender, Supple Respiratory: Chest Non Tender, Normal Breath Sounds, No Accessory Muscle Use, No Respiratory Distress, Decreased Breath Sounds Cardiovascular: Regular Rate, Rhythm, No Edema, No Gallop, No JVD, No Murmur, Normal Peripheral Pulses Capillary Refill: Less Than 3 Seconds Gastrointestinal: other Extremity: Normal Capillary Refill, Normal Inspection, Normal Range of Motion, Non Tender, No Calf Tenderness, No Pedal Edema, Pedal Edema, Swelling Neurologic/Psychiatric: Other (sedated on vent) Skin: Normal Color, Warm/Dry Lymphatic: No Adenopathy Results Lab Laboratory Tests 04/30/17 07:28 05/01/17 04:20 05/02/17 04:20 Assessment/Plan Assessment/Plan Acute respiratory failure since postop secondary to aspiration of bowel contents -continue ventilator support -will start weaning vent when pt is more awake -D/C all sedation secondary to unresponsiveness -Continue TF Acute peritonitis with severe sepsis secondary to colonic perforation s/p surgery -Continue Merrem Diflucan vancomycin -repeat garcía cultures -pending Oversedation -D/C all sedation -check liver enzymes Hypernatremia/hyperchloremia -IVF changed to 1/2 NS with D5 Vascular congestion -decrease IVF to 50cc/hr and give lasix 40mg daily thrombocytopenia - improving -HIT Abx is negative -Arixtra Atelectasis and pulmonary edema -monitor CXR Afib RVR- now converted back to sinus -Pt is on amio gtt Hypoglycemia - IVF to 1/2 NS with D5 hypothyroid -Pt is getting IV Synthroid HX of SVT/AF -LABS AND CXR REVIEWED 233 30min spent with patient Clinical Quality Measures DVT/VTE Risk/Contraindication: Risk Factor Score Per Nursin RFS Level Per Nursing on Admit: 4+=Very High CHRISS ARTIS DO May 02, 2017 07:14
[2017-05-02 07:49] LABS: ALANINE AMINOTRANSFERASE 16 U/L (0-55); ANION GAP 9 MMOL/L (5-14); ASPARTATE AMINO TRANSFERASE 38 U/L (5-34); BILIRUBIN,TOTAL 1.5 MG/DL (0.1-1.0); BLOOD UREA NITROGEN 34 MG/DL (7-18); BUN/CREATININE RATIO 65; CALCIUM 7.3 MG/DL (8.5-10.1); CARBON DIOXIDE 23 MMOL/L (21-32); CHLORIDE 116 MMOL/L (98-107); CREATININE SERUM 0.52 MG/DL (0.60-1.30); GFR ESTIMATED > 60; GLUCOSE 154 MG/DL (70-105); POTASSIUM 4.8 MMOL/L (3.6-5.0); SODIUM 148 MMOL/L (135-145); TOTAL PROTEIN 4.5 G/DL (6.4-8.2)
[2017-05-02] MEDS: MAGNESIUM 1 GM/100 ML IVPB 100 ML IV SCH (08:15)
[2017-05-02] MEDS: KCL 20 MEQ TAB (K-DUR) PO SCH (08:15)
[2017-05-02] MEDS: POTASSIUM CL 10MEQ/50ML IVPB 50 ML IV SCH (08:16)
[2017-05-02] MEDS: D5 1/2 NS W/KCL 20 MEQ/L 1,000 ML IV SCH ×3 (08:16→14:17)
[2017-05-02] MEDS ORDERED: ALBUMIN 25% 25 GM/100 ML 100 ML IV ONE (08:30)
[2017-05-02] MEDS: AMIODARONE 200 MG (CORDARONE) TAB PO SCH (08:34)
[2017-05-02] MEDS: FLUCONAZOLE 100 MG/50 ML 50 ML IV SCH (08:34)
[2017-05-02] MEDS: FUROSEMIDE 40 MG/4 ML INJ (LASIX) IVP SCH (08:34)
[2017-05-02] MEDS: PANTOPRAZOLE 40 MG/10 ML (PROTONIX) VIAL IVP SCH (08:34)
[2017-05-02 08:51] LABS: BILIRUBIN,URINE NEGATIVE (NEGATIVE); KETONES,URINE NEGATIVE (NEGATIVE); LEUKOCYTE ESTERASE ,URINE 1+ (NEGATIVE); NITRITE,URINE NEGATIVE (NEGATIVE); PH,URINE 6 (5-9); PROTEIN,URINE 2+ (NEGATIVE); UROBILINOGEN,URINE NORMAL (NORMAL)
[2017-05-02] MEDS ORDERED: NS 100 ML (IVPB) BAG IV ONE (09:00)
[2017-05-02] MEDS ORDERED: IOHEXOL 350 MG/ML 100 ML (OMNIPAQUE 350) VIAL IV ONE (09:00)
--- NOTE | 2017-05-02 09:00 | Progress Note-Hospitalist ---
Subjective HPI/CC On Admission Time Seen by Provider: 08:30 CC: Management of critical illness with acute peritonitis due to bowel perforation with aspiration of bowel contents during intubation HPI: This is a 61-year-old white female clinic patient of Dr. 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 Apparently she was wanting to go to [place] and used to suppository like she usually does because she is struggle with constipation since cardiac meds have been initiated several years ago but at noon time she started having a lot of pain to the extent that required emergency room evaluation. CT scan was obtained found to have bowel perforation with peritonitis and during intubation for surgery she aspirated bowel contents so she now has a diverting colostomy but the pictures during surgery appeared to have a multitude of impacted bowel contents within the abdominal cavity. I did speak with Dr. Horvath her primary care provider and employer and it appears that she is not up-to-date on her colonoscopy and has not had one before and she has had significant constipation issues for the past several years so I hypothesized that impacted stool has been an ongoing problem for her probably stretching the tissue over a long period time and finally rupturing causing this critical illness. She is requiring high doses of Levophed and closely monitoring due to severe sepsis and multisystem organ failure. She has received aggressive IV fluids per protocol and currently monitor closely due to history of arrhythmia maintained on Rythmol as an outpatient. She sees Dr. Ku cardiology at [place] after she failed undergoing ablation up in [place] years ago. I have consulted cardiology and clinical coder and eICU to facilitate management of this critically ill patient. Date Seen 05/02/17 Subjective/Events-last exam patient is been off sedation for the last 24 hours. She is awake and groggy attempts to follow commands. Her server strength bilaterally is weak but she can move her fingers. She is grossly edematous throughout. She remains afebrile with ventilator settings set at 21 percent. Review of Systems Neurological: Weakness Objective Exam Vital Signs Vital Sign - Last 12Hours 04/26/17 04/26/17 01:53 21:07 O2 Delivery Mechanical Ventilator FiO2 75 Capillary Refill : Less Than 3 Seconds General Appearance: No Apparent Distress Eyes: Right Eye Other (seems to deviate out words a little) HEENT: Other (intubated) Neck: Limited Range of Motion Respiratory: Lungs Clear Cardiovascular: Regular Rate, Rhythm, No Gallop, No Murmur Gastrointestinal: Soft, Abnormal Bowel Sounds (no bowel sounds, but functioning colostomy) Extremity: Pedal Edema Neurologic/Psychiatric: Depressed Affect, Motor Weakness (diffusely) Skin: Cool Lymphatic: No Adenopathy Results/Procedures Lab Laboratory Tests 05/02/17 04:20 Radiology chest x-ray reviewed by me and by Dr. Causey. Shows increased opacification of the right lung throughout with a pleural effusion on the left. Bilateral lower lobe infiltrates remain. Assessment/Plan Assessment and Plan Assess & Plan/Chief Complaint Assessment: Acute peritonitis from colonic perforation with impacted stool with long history of severe chronic constipation status post diverting colostomy POD # 7 with septic shock requiring pressors and aggressive IVF management now improved and more stable but but unable to extubate as tentatively planned, white count has gone up and there is increased opacification of the right lung. Will obtain CT chest abdomen pelvis for further evaluation of elevation of the white count. In addition will add Flagyl for increased anaerobic coverage.she is postop day number 7 so formation of an abscess would be a consideration. Aspiration of bowel contents during intubation for surgery with ventilator- dependent respiratory failure currently maintained on Meropenem and s/p Diflucan History of SVT status post attempted ablation and unsuccessful maintained on Rythmol by Dr. Ku cardiology [place] consulted Dr Nettles and his recs are appreciated and had an episode of AF 4 nights ago resolved with suctioning-she remains in sinus rhythm History of hypertension Hypothyroidism Leukopenia due to sepsis now leukocytosis Hypokalemia -resolved Metabolic acidosis due to sepsis-resolved Thrombocytopenia due to sepsis-resolved fluid overload-currently on daily Lasix and albumin-we'll check UA and urine lites Protein calorie malnutrition- on enteral feedings increasing total bilirubin-we'll monitor Plan: monitor potassium closely as it's beginning to reach the upper limits of normal Maintain ventilator and appreciate Dr Causey's expertise-may require bronchoscopy if CT shows mucous plugging of the right lung Empiric antibiotics for peritonitis and aspiration of bowel contents-adding Flagyl Cardiology recs are appreciated Monitor labs Maintain colostomy-currently functioning SCDs enteral feedings CT chest abdomen pelvis for further evaluation of elevation of WBC SANDNESS,KAREN Gilliland MD May 02, 2017 09:00
[2017-05-02 09:05] LABS: POTASSIUM URINE RANDOM 38 MMOL/L (25-125)
[2017-05-02 09:17] LABS: WBC,URINE RARE /HPF
[2017-05-02] MEDS: metroNIDAZOLE 500MG/100ML IVPB 100 ML IV SCH ×2 (09:20→17:20)
[2017-05-02] MEDS: LEVOTHYROXINE 100 MCG INJ (SYNTHROID) VIAL IV SCH (09:20)
[2017-05-02] MEDS: DILTIAZEM DRIP 100 MG in SODIUM CHLORIDE (ADD-VANTAGE) 100 ML IV SCH (10:22)
[2017-05-02] MEDS: morphine INJ 4 MG/ML 1 ML (VIAL/SYRINGE) IVP PRN ×2 (10:23→19:50)
--- NOTE | 2017-05-02 10:25 | Diagnostic Imaging Report ---
PROCEDURE: CT chest without contrast. TECHNIQUE: Multiple contiguous axial images were obtained through the chest without the use of intravenous contrast. INDICATION: Hypoxia. Question mucus plug. COMPARISON: Chest radiograph 05/02/2017. FINDINGS: There is dense consolidation in the left lower lobe. Although there are several air bronchograms, the left lower lobe main bronchus appears markedly narrowed, suspicious for a mucus plug. There is also consolidation of the right lower lobe with air bronchograms. There is no abrupt cut off of the airway in the right lung. Additional small groundglass opacities throughout the remaining lungs bilaterally. Small left pleural effusion. ETT tip just above the guera. The NG tube tip is below the [id number]. Right IJ CVC tip in the mid SVC. No pneumothorax. No pericardial effusion. Prominent but subcentimeter mediastinal lymph nodes. No definite hilar or axillary lymphadenopathy on this noncontrast exam. Partially visualized drain layering along the liver. Mild scattered arterial calcifications. No acute osseous findings. IMPRESSION: 1. Dense consolidation of the left lower lobe. Although there are several air bronchograms, the left lower lobe main bronchus is markedly narrowed, suspicious for a mucous plug. 2. A smaller area of dense consolidation in the right lower lobe with air bronchograms and no discrete airway. Dictated by: Dictated on workstation # [id number]
--- NOTE | 2017-05-02 10:35 | Diagnostic Imaging Report ---
PROCEDURE: CT abdomen and pelvis with contrast. TECHNIQUE: Multiple contiguous axial images were obtained through the abdomen and pelvis after administration of intravenous contrast. INDICATION: History of bowel perforation with increasing white blood cell count. COMPARISON is made with a prior study from 07/26/2017. FINDINGS: The visualized lung bases demonstrate bilateral pleural effusions and bilateral lower lobe pulmonary consolidations. The liver had previously demonstrated fluid about its margins on the previous examination. There now appears to be a subcapsular collection along of the right hepatic lobe. There is no focal hepatic mass demonstrated. The patient is status post cholecystectomy without biliary dilatation. The spleen demonstrates no focal abnormality but there is a large degree of fluid about the spleen. There is no adrenal mass. The pancreas demonstrates no focal abnormality. The kidneys are nonobstructed and enhance normally. There is no longer evidence of free air present. There appears to have been an interval partial left hemicolectomy. There is residual small and large bowel, both demonstrate significant mucosal hyperenhancement and thickening. There is also diffuse induration demonstrated throughout the mesentery. This is most focal within the low pelvis. This does not have a well-defined anterior margin to suggest a mature abscess. The urinary bladder has gas within its lumen and is decompressed by a Reynolds catheter. There are also surgical drains demonstrated within the right upper quadrant and within the pelvis. An enteric tube extends to the stomach There is diffuse body wall edema. IMPRESSION: 1. There are apparent operative changes of a partial hemicolectomy with resection of a portion of the sigmoid colon. 2. Residual small and large bowel demonstrate significant mucosal hyperenhancement and mucosal thickening. There is no dilation to suggest obstruction. Many of the loops of small bowel are fluid-filled proximally. 3. There is a large degree of free fluid demonstrated about the spleen as well as focal free fluid within the low pelvis. Fluid along the right aspect of the liver now has a morphology that suggests the possibility that some of this fluid could be subcapsular in location. 4. Bibasilar pulmonary consolidation and small effusions. 5. No residual pneumoperitoneum is evident. Dictated by: Dictated on workstation # [id number]
[2017-05-02] MEDS: meTOprolol 5 MG/5 ML (LOPRESSOR) VIAL IV SCH ×5 (10:46→22:38)
--- NOTE | 2017-05-02 11:07 | Progress Note (SOAP) ---
Subjective Date Seen by Provider: May 02, 2017 Time Seen by Provider: 10:50 Subjective/Events-last exam patient stable. went into a-fib however now in sinus after cardizem. recent CT chest, abdomen, and pelvis. Objective Exam Vital Signs Date Time Temp Pulse Resp B/P (MAP) Pulse Ox O2 Delivery O2 Flow Rate FiO2 05/02/17 10:22 172 05/02/17 10:00 85 15 132/65 93 21.00 05/02/17 08:37 96.0 101 24 143/65 96 21.00 05/02/17 08:27 89 21 96 21 05/02/17 08:00 77 21 144/65 97 21.00 05/02/17 07:00 71 05/02/17 07:00 92 22 136/67 96 21.00 05/02/17 06:14 87 20 94 21 05/02/17 06:00 81 23 138/72 96 21.00 05/02/17 05:00 104 19 127/72 96 21.00 05/02/17 04:37 87 20 96 21 05/02/17 04:00 105 18 139/72 95 21.00 05/02/17 03:00 90 21 139/67 92 21.00 05/02/17 02:23 96 23 91 21 05/02/17 02:00 93 21 129/65 95 21.00 05/02/17 01:00 87 20 127/65 95 21.00 05/02/17 01:00 102 05/02/17 00:14 85 23 96 21 05/02/17 00:00 97.0 05/02/17 00:00 101 20 128/68 95 21.00 05/01/17 23:00 91 26 137/70 94 21.00 05/01/17 22:03 92 24 96 21 05/01/17 22:00 95 20 126/94 95 21.00 05/01/17 21:00 81 21 137/62 96 21.00 05/01/17 20:43 79 23 95 21 05/01/17 20:00 98.6 05/01/17 20:00 89 24 125/64 96 21.00 05/01/17 19:00 100 21 121/55 97 21.00 05/01/17 19:00 99 05/01/17 18:59 83 22 96 21 05/01/17 18:00 106 21 116/60 96 21.00 05/01/17 17:00 111 22 117/63 96 21.00 05/01/17 16:30 99.2 05/01/17 16:00 102 21 132/62 92 21.00 05/01/17 15:59 106 23 93 21 05/01/17 15:00 98 20 144/71 92 21.00 05/01/17 14:00 108 23 131/66 92 21.00 05/01/17 13:33 98 22 93 21 05/01/17 13:00 102 21 115/69 92 21.00 05/01/17 13:00 115 05/01/17 12:00 107 20 125/64 93 21.00 05/01/17 11:18 90 22 93 21 05/01/17 11:00 96 20 134/70 92 21.00 I & O 05/02/17 07:00 Output Total 1995 ml Balance -1995 ml Capillary Refill : Less Than 3 Seconds General Appearance: Chronically ill HEENT: Normal ENT Inspection Neck: Full Range of Motion Respiratory: Rales, Rhonci Cardiovascular: Regular Rate, Rhythm Gastrointestinal: normal bowel sounds, distended Extremity: Normal Capillary Refill Neurologic/Psychiatric: Alert, Oriented x3 Skin: Normal Color Lymphatic: No Adenopathy Results Lab Laboratory Tests 05/01/17 18:57: Glucometer 128H 05/02/17 04:08: B-Type Natriuretic Peptide 578.1H 05/02/17 04:20: White Blood Count 18.5H, Red Blood Count 3.58L, Hemoglobin 10.3L, Hematocrit 32L , Mean Corpuscular Volume 88, Mean Corpuscular Hemoglobin 29, Mean Corpuscular Hemoglobin Concent 33, Red Cell Distribution Width 14.5, Platelet Count 155, Mean Platelet Volume 11.0H, Neutrophils (%) (Auto) , Lymphocytes (%) (Auto) , Monocytes (%) (Auto) , Eosinophils (%) (Auto) , Basophils (%) (Auto) , Neutrophils # (Auto) , Lymphocytes # (Auto) , Monocytes # (Auto) , Eosinophils # (Auto) , Basophils # (Auto) , Blood Gas Puncture Site RIGHT RADIAL, Blood Gas Patient Temperature 97.0, Arterial Blood pH 7.37, Arterial Blood Partial Pressure CO2 46H, Arterial Blood Partial Pressure O2 50L, Arterial Blood HCO3 26 , Arterial Blood Total CO2 27.7, Arterial Blood Oxygen Saturation 86L, Arterial Blood Base Excess 1.4, Brannon Test YES-POS, Blood Gas Ventilator Setting YES, Blood Gas Inspired Oxygen 21%, Sodium Level 148H, Potassium Level 4.8, Chloride Level 116H, Carbon Dioxide Level 23, Anion Gap 9, Blood Urea Nitrogen 34H, Creatinine 0.52L, Estimat Glomerular Filtration Rate > 60, BUN/Creatinine Ratio 65, Glucose Level 154H, Calcium Level 7.3L, Phosphorus Level 2.8, Magnesium Level 2.4, Total Bilirubin 1.5H, Aspartate Amino Transf (AST/SGOT) 38H, Alanine Aminotransferase (ALT/SGPT) 16, Alkaline Phosphatase 121, Total Protein 4.5L, Albumin 2.0L 05/02/17 08:45: Urine Color AMBERH, Urine Clarity CLEAR, Urine pH 6, Urine Specific Carver 1.015L, Urine Protein 2+H, Urine Glucose (UA) NEGATIVE, Urine Ketones NEGATIVE, Urine Nitrite NEGATIVE, Urine Bilirubin NEGATIVE, Urine Urobilinogen NORMAL, Urine Leukocyte Esterase 1+H, Urine RBC (Auto) 1+H, Urine RBC RARE, Urine WBC RARE, Urine Squamous Epithelial Cells NONE, Urine Crystals NONE, Urine Bacteria NEGATIVE, Urine Casts NONE, Urine Mucus NEGATIVE, Urine Culture Indicated NO, Urine Random Sodium 29L, Urine Random Potassium 38, Urine Random Chloride 50L Microbiology 04/30/17 Blood Culture - Preliminary, Resulted No growth Assessment/Plan Assessment/Plan Assess & Plan/Chief Complaint s/p sigmoid colon resection and colostomy secondary perforated colon. multiple fluid collections in abdomen which is expected. will eventually produce multiple interloop abscess. possible mucus plug however respiratory status stable. on triple abx therapy. continue TF's for now. Clinical Quality Measures DVT/VTE Risk/Contraindication: Risk Factor Score Per Nursin RFS Level Per Nursing on Admit: 4+=Very High AZALEA LUCAS MD May 02, 2017 11:07
[2017-05-02] MEDS: DEXMEDETOMIDINE INJECTION 400 MCG in NS (IVPB) 100 ML IV SCH (11:32)
--- NOTE | 2017-05-02 12:15 | Diagnostic Imaging Report ---
Portable chest compared to prior study from May 01, 2017. INDICATION: Respiratory failure. FINDINGS: Endotracheal tube positioning appears unchanged and appropriate. There is a right internal jugular central venous line. Enteric tube extends to the stomach. Heart size is enlarged. Prominence of the central pulmonary vascularity remains present. There is a possible left effusion. There is obscuration of left hemidiaphragm and left lower lobe consolidation cannot be excluded. IMPRESSION: 1. Life-support positioning appears stable. 2. Obscured left diaphragm suggests left basilar consolidation and/or effusion. There is also continued prominence of the central pulmonary vascularity. Dictated by: Dictated on workstation # [id number]
--- NOTE | 2017-05-02 13:19 | Progress Note-Cardiology ---
Cardiology SOAP Progress Note Objective: I&O/Vital Signs Vital Sign - Last 12Hours 05/02/17 05/02/17 05/02/17 05/02/17 02:00 02:23 03:00 04:00 Pulse 93 96 90 105 Resp 21 23 21 18 B/P (MAP) 129/65 139/67 139/72 Pulse Ox 95 91 92 95 O2 Flow Rate 21.00 21.00 21.00 FiO2 21 05/02/17 05/02/17 05/02/17 05/02/17 04:37 05:00 06:00 06:14 Pulse 87 104 81 87 Resp 20 19 23 20 B/P (MAP) 127/72 138/72 Pulse Ox 96 96 96 94 O2 Flow Rate 21.00 21.00 FiO2 21 21 05/02/17 05/02/17 05/02/17 05/02/17 07:00 07:00 08:00 08:27 Pulse 92 71 77 89 Resp 22 21 21 B/P (MAP) 136/67 144/65 Pulse Ox 96 97 96 O2 Flow Rate 21.00 21.00 FiO2 21 05/02/17 05/02/17 05/02/17 05/02/17 08:37 10:00 10:22 11:00 Temp 96.0 Pulse 101 85 172 107 Resp 24 15 9 B/P (MAP) 143/65 132/65 112/73 Pulse Ox 96 93 100 O2 Flow Rate 21.00 21.00 21.00 05/02/17 05/02/17 11:10 12:52 Temp 97.3 Pulse 96 86 Resp 25 20 B/P (MAP) 112/58 Pulse Ox 96 100 O2 Flow Rate 21.00 FiO2 21 Intake and Output 05/02/17 00:00 Output Total 705 ml Balance -705 ml Weight (Pounds): 200 Weight (Ounces): 0.0 Weight (Calculated Kilograms): [id number] Constitutional: other (Intubated and ventilated) Respiratory: other (Fair bilateral air entry) Cardiovascular: tachycardia, S1 and S2, other (Faint WILL at card base) Gastrointestional: other (Recent abdominal surgery, colostomy in place) Extremities: No clubbing, No cyanosis, significant edema Neurologic/Psychiatric: other (Intubated and sedated; unable to cooperate with a neuro exam) Skin: No rash on exposed areas, ulcerations on exposed areas Results/Procedures: Labs Laboratory Tests 05/01/17 18:57: Glucometer 128H 05/02/17 04:08: B-Type Natriuretic Peptide 578.1H 05/02/17 04:20: White Blood Count 18.5H, Red Blood Count 3.58L, Hemoglobin 10.3L, Hematocrit 32L , Mean Corpuscular Volume 88, Mean Corpuscular Hemoglobin 29, Mean Corpuscular Hemoglobin Concent 33, Red Cell Distribution Width 14.5, Platelet Count 155, Mean Platelet Volume 11.0H, Neutrophils (%) (Auto) , Lymphocytes (%) (Auto) , Monocytes (%) (Auto) , Eosinophils (%) (Auto) , Basophils (%) (Auto) , Neutrophils # (Auto) , Lymphocytes # (Auto) , Monocytes # (Auto) , Eosinophils # (Auto) , Basophils # (Auto) , Blood Gas Puncture Site RIGHT RADIAL, Blood Gas Patient Temperature 97.0, Arterial Blood pH 7.37, Arterial Blood Partial Pressure CO2 46H, Arterial Blood Partial Pressure O2 50L, Arterial Blood HCO3 26 , Arterial Blood Total CO2 27.7, Arterial Blood Oxygen Saturation 86L, Arterial Blood Base Excess 1.4, Brannon Test YES-POS, Blood Gas Ventilator Setting YES, Blood Gas Inspired Oxygen 21%, Sodium Level 148H, Potassium Level 4.8, Chloride Level 116H, Carbon Dioxide Level 23, Anion Gap 9, Blood Urea Nitrogen 34H, Creatinine 0.52L, Estimat Glomerular Filtration Rate > 60, BUN/Creatinine Ratio 65, Glucose Level 154H, Calcium Level 7.3L, Phosphorus Level 2.8, Magnesium Level 2.4, Total Bilirubin 1.5H, Aspartate Amino Transf (AST/SGOT) 38H, Alanine Aminotransferase (ALT/SGPT) 16, Alkaline Phosphatase 121, Total Protein 4.5L, Albumin 2.0L 05/02/17 08:45: Urine Color AMBERH, Urine Clarity CLEAR, Urine pH 6, Urine Specific Diamond 1.015L, Urine Protein 2+H, Urine Glucose (UA) NEGATIVE, Urine Ketones NEGATIVE, Urine Nitrite NEGATIVE, Urine Bilirubin NEGATIVE, Urine Urobilinogen NORMAL, Urine Leukocyte Esterase 1+H, Urine RBC (Auto) 1+H, Urine RBC RARE, Urine WBC RARE, Urine Squamous Epithelial Cells NONE, Urine Crystals NONE, Urine Bacteria NEGATIVE, Urine Casts NONE, Urine Mucus NEGATIVE, Urine Culture Indicated NO, Urine Random Sodium 29L, Urine Random Potassium 38, Urine Random Chloride 50L Microbiology 04/30/17 Blood Culture - Preliminary, Resulted No growth Laboratory Tests 05/01/17 04:20 05/02/17 04:20 A/P: Assessment: Perforated bowel and fecal peritonitis Septic shock Multiple arrhythmias including NSVT and sustained episodes of PAF, likely related to septicemia and elec abnormalities Prerenal azotemia Generalized soft tissue swelling, likely due to hypoalbuminemia and 3rd spacing of fluid Guarded prognosis Plan: * Beta-leelee [id number], if tolerated * Dilt infusion prn * Monitor labs; correct electrolytes, as needed * Furosemide for gen edema, as needed and as tolerated CHUCK SCHULZ MD FACP FAC CCDS May 02, 2017 13:19
[2017-05-02] MEDS: FONDAPARINUX 2.5 MG (ARIXTRA) SYR NON-FORMULARY SQ SCH (17:21)
[2017-05-03] VITALS (29 sets, daily range): BP systolic 125–163; BP diastolic 39–91
[2017-05-03] MEDS: metroNIDAZOLE 500MG/100ML IVPB 100 ML IV SCH ×3 (00:09→17:09)
[2017-05-03] MEDS: METOCLOPRAMIDE INJ 10 MG/2 ML (REGLAN) IVP SCH ×4 (00:09→17:09)
[2017-05-03] MEDS: morphine INJ 4 MG/ML 1 ML (VIAL/SYRINGE) IVP PRN ×4 (01:14→20:12)
[2017-05-03] MEDS: meTOprolol 5 MG/5 ML (LOPRESSOR) VIAL IV SCH ×8 (01:14→22:24)
[2017-05-03] MEDS: D5 1/2 NS W/KCL 20 MEQ/L 1,000 ML IV SCH (01:24)
[2017-05-03] MEDS: RT-ALBUTEROL/IPRATROPIUM 3 ML (DUONEB) VIAL INH SCH ×6 (02:34→21:47)
[2017-05-03 04:23] LABS: ABG BASE EXCESS 3.2 MMOL/L (-2.5-2.5); ABG HCO3 27 MMOL/L (23-27); ABG OXYGEN SATURATION 93 % (94-100); ABG PCO2 36 MMHG (35-45); ABG PH 7.48 (7.37-7.43); ABG PO2 59 MMHG (79-93); ABG TCO2 27.6 MMOL/L (21.0-31.0)
[2017-05-03 04:26] LABS: ALLENS TEST YES-POS; PATIENT TEMP 98.6
[2017-05-03 04:30] LABS: BASOPHILS # (AUTO) 0.2 10^3/uL (0.0-0.1); BASOPHILS % (AUTO) 1 % (0-10); EOSINOPHILS % (AUTO) 0 % (0-10); LYMPHOCYTES # (AUTO) 1.6 X 10^3 (1.0-4.0); LYMPHOCYTES % (AUTO) 9 % (12-44); MEAN CORPUSCULAR HEMOGLOBIN 29 PG (25-34); MEAN CORPUSCULAR HGB CONC 33 G/DL (32-36); MEAN CORPUSCULAR VOLUME 88 FL (80-99); MEAN PLATELET VOLUME 10.9 FL (7.4-10.4); MONOCYTES # (AUTO) 1.6 X 10^3 (0.0-1.0); MONOCYTES % (AUTO) 9 % (0-12); NEUTROPHILS % (AUTO) 81 % (42-75); PLATELET COUNT 204 10^3/uL (130-400); RED BLOOD COUNT 3.39 10^6/uL (4.35-5.85); RED CELL DISTRIBUTION WIDTH 14.5 % (10.0-14.5); WHITE BLOOD COUNT 17.3 10^3/uL (4.3-11.0)
[2017-05-03 04:50] LABS: ANION GAP 8 MMOL/L (5-14); BLOOD UREA NITROGEN 32 MG/DL (7-18); BUN/CREATININE RATIO 57; CALCIUM 7.7 MG/DL (8.5-10.1); CARBON DIOXIDE 25 MMOL/L (21-32); CHLORIDE 117 MMOL/L (98-107); CREATININE SERUM 0.56 MG/DL (0.60-1.30); GFR ESTIMATED > 60; GLUCOSE 147 MG/DL (70-105); MAGNESIUM 2.6 MG/DL (1.8-2.4); PHOSPHORUS 2.7 MG/DL (2.3-4.7); POTASSIUM 5.4 MMOL/L (3.6-5.0); SODIUM 150 MMOL/L (135-145)
[2017-05-03] MEDS: MAGNESIUM 1 GM/100 ML IVPB 100 ML IV SCH (05:07)
[2017-05-03] MEDS: POTASSIUM CL 10MEQ/50ML IVPB 50 ML IV SCH (05:07)
[2017-05-03] MEDS: KCL 20 MEQ TAB (K-DUR) PO SCH (05:07)
[2017-05-03] MEDS: MEROPENEM 1 GM/NS 100 ML IVPB IV SCH ×6 (05:45→22:22)
--- NOTE | 2017-05-03 06:44 | Pulmonary Progress Note ---
Subjective Subjective/Events-last exam PT now awake/alert and doing well on vent. Exam Exam Vital Signs Date Time Temp Pulse Resp B/P (MAP) Pulse Ox O2 Delivery O2 Flow Rate FiO2 05/03/17 06:00 95 24 152/64 100 21.00 05/03/17 05:00 89 26 144/65 100 21.00 05/03/17 04:18 43 44 100 21 05/03/17 04:00 98.6 96 27 161/74 100 21.00 05/03/17 03:53 86 28 100 21 05/03/17 03:00 89 24 137/79 100 21.00 05/03/17 02:34 79 27 100 21 05/03/17 02:00 91 27 146/78 100 21.00 05/03/17 01:00 82 05/03/17 01:00 96 19 151/78 100 21.00 05/03/17 00:01 79 28 100 21 05/03/17 00:00 97.6 87 27 163/63 100 21.00 05/02/17 23:00 80 27 150/72 100 21.00 05/02/17 22:00 87 27 147/69 100 21.00 05/02/17 21:00 97 26 149/69 100 21.00 05/02/17 20:21 82 27 100 21 05/02/17 20:00 97.9 91 19 138/64 100 21.00 05/02/17 19:00 76 24 142/65 100 21.00 05/02/17 19:00 102 05/02/17 18:24 102 28 100 21 05/02/17 18:00 78 22 125/68 100 21.00 05/02/17 17:00 87 22 144/62 100 21.00 05/02/17 16:00 91 23 138/64 100 21.00 05/02/17 15:46 96 24 100 21 05/02/17 15:23 97.6 05/02/17 15:00 96 20 142/57 100 21.00 05/02/17 14:00 77 21 124/59 100 21.00 05/02/17 13:42 62 19 100 21 05/02/17 13:00 110 05/02/17 12:52 97.3 86 20 112/58 100 21.00 05/02/17 11:10 96 25 96 21 05/02/17 11:00 107 9 112/73 100 21.00 05/02/17 10:22 172 05/02/17 10:00 85 15 132/65 93 21.00 05/02/17 08:37 96.0 101 24 143/65 96 21.00 05/02/17 08:27 89 21 96 21 05/02/17 08:00 77 21 144/65 97 21.00 05/02/17 07:00 71 05/02/17 07:00 92 22 136/67 96 21.00 I & O 05/03/17 07:00 Intake Total 1788 ml Output Total 3320 ml Balance -1532 ml General Appearance: No Apparent Distress, Chronically ill HEENT: Normal ENT Inspection Neck: Full Range of Motion Respiratory: Rales, Rhonci Cardiovascular: Regular Rate, Rhythm Capillary Refill: Less Than 3 Seconds Gastrointestinal: normal bowel sounds, distended Extremity: Normal Capillary Refill Neurologic/Psychiatric: Alert, Oriented x3 Skin: Normal Color Lymphatic: No Adenopathy Results Lab Laboratory Tests 05/02/17 04:20 05/03/17 04:20 Assessment/Plan Assessment/Plan Acute respiratory failure since postop secondary to aspiration of bowel contents -continue ventilator support -will start weaning vent today - vent to CPAP mode with PS 15 (pt has only 7.0 ET tube) and peep of 5 - ABG in 1hr. Pt is only requiring 21% Fi02 -Pt is awake/alert - sedation was d/c'd secondary to over sedation. Will add precedex at small dose. -continue morphine for pain control -PT is now awake and alert -hold TF for possible extubation Acute peritonitis with severe sepsis secondary to colonic perforation s/p surgery -Continue Merrem Diflucan vancomycin. Flagyl added yesterday -repeat garcía cultures -pending Hypernatremia/hyperchloremia - Secondary to saline - doubt volume depletion BNP 578 -IVF changed to D5W at 75 -If pt is not extubated will start 250 cc of free water per OG tube Q 6 Mild Hyperkalemia -take K+ out of IVF -lasix 40mg IV -repeat chem later today thrombocytopenia - improving -HIT Abx is negative -Arixtra Atelectasis, pulmonary edema, and mucous plugging on CT of chest -Can not do bronchoscopy secondary to ET tube of 7.0 -Add SVN Q4 Duoneb with Mucomyst TID -frequent aggressive suctioning while on vent -monitor CXR Afib RVR- now converted back to sinus -Pt is on amio gtt Hypoglycemia - IVF D5W hypothyroid -Pt is getting IV Synthroid HX of SVT/AF -LABS AND CXR REVIEWED 233 30min spent with patient Clinical Quality Measures DVT/VTE Risk/Contraindication: Risk Factor Score Per Nursin RFS Level Per Nursing on Admit: 4+=Very High CHRISS ARTIS DO May 03, 2017 06:44
[2017-05-03] MEDS: FUROSEMIDE 40 MG/4 ML INJ (LASIX) IVP SCH (06:58)
[2017-05-03] MEDS: D5W 1000 ML IV SOLUTION 1,000 ML IV SCH ×2 (07:03→22:22)
[2017-05-03] MEDS ORDERED: DEXMEDETOMIDINE INJECTION 200 MCG in NS (IVPB) 50 ML IV SCH (07:30)
[2017-05-03 08:32] LABS: ABG BASE EXCESS 3.5 MMOL/L (-2.5-2.5); ABG HCO3 28 MMOL/L (23-27); ABG OXYGEN SATURATION 87 % (94-100); ABG PCO2 46 MMHG (35-45); ABG PO2 53 MMHG (79-93); ABG TCO2 29.5 MMOL/L (21.0-31.0)
[2017-05-03 08:33] LABS: ALLENS TEST YES-POS
[2017-05-03] MEDS: PANTOPRAZOLE 40 MG/10 ML (PROTONIX) VIAL IVP SCH (08:51)
[2017-05-03] MEDS: FLUCONAZOLE 100 MG/50 ML 50 ML IV SCH (08:52)
[2017-05-03] MEDS: DEXMEDETOMIDINE INJECTION 400 MCG in NS (IVPB) 100 ML IV SCH (08:52)
[2017-05-03] MEDS: AMIODARONE 200 MG (CORDARONE) TAB PO SCH (08:52)
--- NOTE | 2017-05-03 08:54 | Progress Note-Hospitalist ---
Subjective HPI/CC On Admission Time Seen by Provider: 08:30 CC: Management of critical illness with acute peritonitis due to bowel perforation with aspiration of bowel contents during intubation HPI: This is a 61-year-old white female clinic patient of Dr. Horvath at [facility] in 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 Apparently she was wanting to go to [place] and used to suppository like she usually does because she is struggle with constipation since cardiac meds have been initiated several years ago but at noon time she started having a lot of pain to the extent that required emergency room evaluation. CT scan was obtained found to have bowel perforation with peritonitis and during intubation for surgery she aspirated bowel contents so she now has a diverting colostomy but the pictures during surgery appeared to have a multitude of impacted bowel contents within the abdominal cavity. I did speak with Dr. Horvath her primary care provider and employer and it appears that she is not up-to-date on her colonoscopy and has not had one before and she has had significant constipation issues for the past several years so I hypothesized that impacted stool has been an ongoing problem for her probably stretching the tissue over a long period time and finally rupturing causing this critical illness. She is requiring high doses of Levophed and closely monitoring due to severe sepsis and multisystem organ failure. She has received aggressive IV fluids per protocol and currently monitor closely due to history of arrhythmia maintained on Rythmol as an outpatient. She sees Dr. Ku cardiology at [place] after she failed undergoing ablation up in [place] years ago. I have consulted cardiology and glass edger and eICU to facilitate management of this critically ill patient. 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 Chest x- ray looks improved aeration of the right side. CT chest abdomen pelvis showed some air bronchograms and possible mucus plugging otherwise no loculation of fluids although she had a lot of abdominal fluid. No evidence of any abscess. Her case is discussed with Dr. Causey and feels like she is able to be extubated this morning. Review of Systems Neurological: Weakness Objective Exam Vital Signs Vital Sign - Last 12Hours 04/27/17 04/30/17 00:00 04:59 Temp 97.8 Pulse 111 Resp 28 B/P (MAP) 103/50 120/54 Pulse Ox 100 O2 Delivery Mechanical Ventilator O2 Flow Rate 40.00 FiO2 40 Capillary Refill : Less Than 3 Seconds General Appearance: Anxious HEENT: Normal ENT Inspection Respiratory: Lungs Clear Cardiovascular: No Murmur, Tachycardia Gastrointestinal: Normal Bowel Sounds, Soft Results/Procedures Lab Laboratory Tests 05/03/17 04:20 Assessment/Plan Assessment and Plan Assess & Plan/Chief Complaint Assessment: Acute peritonitis from colonic perforation with impacted stool with long history of severe chronic constipation status post diverting colostomy POD # 8 with septic shock requiring pressors and aggressive IVF management now improved and white count has gone down and there is improved opacification of the right lung. CT chest abdomen pelvis is unremarkable. day number 2 Flagyl for increased anaerobic coverage. Aspiration of bowel contents during intubation for surgery with ventilator- dependent respiratory failure currently maintained on Meropenem and s/p Diflucan History of SVT status post attempted ablation and unsuccessful maintained on Rythmol by Dr. Ku cardiology [place] consulted Dr Nettles and his recs are appreciated and had an episode of AF 4 nights ago resolved with suctioning-she remains in sinus rhythm History of hypertension Hypothyroidism Leukopenia due to sepsis now leukocytosis Hypokalemia -resolved-now hyperkalemic Metabolic acidosis due to sepsis-resolved Thrombocytopenia due to sepsis-resolved fluid overload-currently on daily Lasix and albumin-we'll check UA and urine lites-she has had more out than in for the last 4 days. Protein calorie malnutrition- on enteral feedings increasing total bilirubin-we'll monitor hypernatremia will need to adjust IV fluids diffuse weakness we'll need aggressive physical therapy and possible short-term stay in rehabilitation unit Plan: change IV fluids extubate today Empiric antibiotics for peritonitis and aspiration of bowel contents-adding Flagyl Cardiology recs are appreciated Monitor labs Maintain colostomy-currently functioning SCDs enteral feedings KAREN YANG MD May 03, 2017 8:54 am
--- NOTE | 2017-05-03 09:23 | Progress Note (SOAP) ---
Subjective Date Seen by Provider: May 03, 2017 Time Seen by Provider: 09:00 Subjective/Events-last exam awake and alert. responds to voice and follows commands. good urine output. edema resolving. Fio2 only 21%. tolerating TF's with functional colostomy. Objective Exam Vital Signs Date Time Temp Pulse Resp B/P (MAP) Pulse Ox O2 Delivery O2 Flow Rate FiO2 05/03/17 08:00 106 34 160/72 100 21.00 05/03/17 07:28 89 36 100 21 05/03/17 07:00 99 05/03/17 07:00 91 18 151/71 100 21.00 05/03/17 06:35 80 29 100 21 05/03/17 06:00 95 24 152/64 100 21.00 05/03/17 05:00 89 26 144/65 100 21.00 05/03/17 04:18 43 44 100 21 05/03/17 04:00 98.6 96 27 161/74 100 21.00 05/03/17 03:53 86 28 100 21 05/03/17 03:00 89 24 137/79 100 21.00 05/03/17 02:34 79 27 100 21 05/03/17 02:00 91 27 146/78 100 21.00 05/03/17 01:00 82 05/03/17 01:00 96 19 151/78 100 21.00 05/03/17 00:01 79 28 100 21 05/03/17 00:00 97.6 87 27 163/63 100 21.00 05/02/17 23:00 80 27 150/72 100 21.00 05/02/17 22:00 87 27 147/69 100 21.00 05/02/17 21:00 97 26 149/69 100 21.00 05/02/17 20:21 82 27 100 21 05/02/17 20:00 97.9 91 19 138/64 100 21.00 05/02/17 19:00 76 24 142/65 100 21.00 05/02/17 19:00 102 05/02/17 18:24 102 28 100 21 05/02/17 18:00 78 22 125/68 100 21.00 05/02/17 17:00 87 22 144/62 100 21.00 05/02/17 16:00 91 23 138/64 100 21.00 05/02/17 15:46 96 24 100 21 05/02/17 15:23 97.6 05/02/17 15:00 96 20 142/57 100 21.00 05/02/17 14:00 77 21 124/59 100 21.00 05/02/17 13:42 62 19 100 21 05/02/17 13:00 110 05/02/17 12:52 97.3 86 20 112/58 100 21.00 05/02/17 11:10 96 25 96 21 05/02/17 11:00 107 9 112/73 100 21.00 05/02/17 10:22 172 05/02/17 10:00 85 15 132/65 93 21.00 I & O 05/03/17 07:00 Intake Total 1888 ml Output Total 3320 ml Balance -1432 ml Capillary Refill : Less Than 3 Seconds General Appearance: No Apparent Distress HEENT: PERRL/EOMI Neck: Full Range of Motion Respiratory: Chest Non Tender, Normal Breath Sounds, Rhonci Cardiovascular: Regular Rate, Rhythm Gastrointestinal: soft, tenderness Extremity: Normal Capillary Refill Neurologic/Psychiatric: Alert, Oriented x3 Skin: Normal Color Lymphatic: No Adenopathy Results Lab Laboratory Tests 05/02/17 17:20: Glucometer 133H 05/03/17 04:15: Blood Gas Puncture Site RIGHT RADIAL, Blood Gas Patient Temperature 98.6, Arterial Blood pH 7.48H, Arterial Blood Partial Pressure CO2 36, Arterial Blood Partial Pressure O2 59L, Arterial Blood HCO3 27, Arterial Blood Total CO2 27.6, Arterial Blood Oxygen Saturation 93L, Arterial Blood Base Excess 3.2H, Brannon Test YES-POS, Blood Gas Ventilator Setting YES, Blood Gas Inspired Oxygen 21% 05/03/17 04:20: White Blood Count 17.3H, Red Blood Count 3.39L, Hemoglobin 9.9L, Hematocrit 30L , Mean Corpuscular Volume 88, Mean Corpuscular Hemoglobin 29, Mean Corpuscular Hemoglobin Concent 33, Red Cell Distribution Width 14.5, Platelet Count 204, Mean Platelet Volume 10.9H, Neutrophils (%) (Auto) 81H, Lymphocytes (%) (Auto) 9L, Monocytes (%) (Auto) 9, Eosinophils (%) (Auto) 0, Basophils (%) (Auto) 1, Neutrophils # (Auto) 14.0H, Lymphocytes # (Auto) 1.6, Monocytes # (Auto) 1.6H, Eosinophils # (Auto) 0.0, Basophils # (Auto) 0.2H, Sodium Level 150H, Potassium Level 5.4H, Chloride Level 117H, Carbon Dioxide Level 25, Anion Gap 8, Blood Urea Nitrogen 32H, Creatinine 0.56L, Estimat Glomerular Filtration Rate > 60, BUN/Creatinine Ratio 57, Glucose Level 147H, Calcium Level 7.7L, Phosphorus Level 2.7, Magnesium Level 2.6H 05/03/17 08:26: Blood Gas Puncture Site LR, Blood Gas Patient Temperature 98.0, Arterial Blood pH 7.40, Arterial Blood Partial Pressure CO2 46H, Arterial Blood Partial Pressure O2 53L, Arterial Blood HCO3 28H, Arterial Blood Total CO2 29.5, Arterial Blood Oxygen Saturation 87L, Arterial Blood Base Excess 3.5H, Brannon Test YES-POS, Blood Gas Ventilator Setting YES, Blood Gas Inspired Oxygen 21% Microbiology 04/30/17 Blood Culture - Preliminary, Resulted No growth Assessment/Plan Assessment/Plan Assess & Plan/Chief Complaint s/p sigmoid colon resection and colostomy secondary perforated colon. multiple fluid collections in abdomen which is expected. will eventually produce multiple interloop abscess. minimal drain outputs. respiratory status stable. definitely awake and alert with most minimal vent settings. on triple abx therapy and leukocytosis now starting to resolve. after extubation, will get swallow eval in am before starting PO diet. Clinical Quality Measures DVT/VTE Risk/Contraindication: Risk Factor Score Per Nursin RFS Level Per Nursing on Admit: 4+=Very High AZALEA LUCAS MD May 03, 2017 9:23 am
--- NOTE | 2017-05-03 09:28 | Diagnostic Imaging Report ---
INDICATION: Respiratory failure. Comparison made with prior examination from 05/02/17. FINDINGS: There is cardiomegaly. There is some venous congestion. There are bibasal infiltrates. Left pleural effusion. No pneumothorax. Lines and tubes are in satisfactory position. IMPRESSION: Bibasal infiltrates and left pleural effusion. Cardiomegaly and some central pulmonary venous congestion. Dictated by: Dictated on workstation # [id number]
[2017-05-03] MEDS: aCETylcysteine 20% (MUCOMYST) 30ML SOLN VIAL INH SCH ×3 (09:44→18:42)
[2017-05-03 13:17] LABS: ABG BASE EXCESS 2.6 MMOL/L (-2.5-2.5); ABG HCO3 29 MMOL/L (23-27); ABG OXYGEN SATURATION 89 % (94-100); ABG PCO2 64 MMHG (35-45); ABG PO2 63 MMHG (79-93); ABG TCO2 30.9 MMOL/L (21.0-31.0)
[2017-05-03 13:21] LABS: ABG PH 7.28 (7.37-7.43); ALLENS TEST YES-POS
[2017-05-03] MEDS ORDERED: FUROSEMIDE 40 MG/4 ML INJ (LASIX) IVP ONE (13:30)
[2017-05-03] MEDS ORDERED: methylPREDNISolone 125 MG (Solu-MEDROL) VIAL IVP ONE (13:30)
--- NOTE | 2017-05-03 15:03 | Progress Note-Cardiology ---
Cardiology SOAP Progress Note Subjective: Remain intubated, sedated, and on [facility] vent Not able to provide any history Objective: I&O/Vital Signs Vital Sign - Last 12Hours 05/03/17 05/03/17 05/03/17 05/03/17 03:53 04:00 04:18 05:00 Temp 98.6 Pulse 86 96 43 89 Resp 28 27 44 26 B/P (MAP) 161/74 144/65 Pulse Ox 100 100 100 100 O2 Flow Rate 21.00 21.00 FiO2 21 05/03/17 05/03/17 05/03/17 05/03/17 06:00 06:35 07:00 07:00 Pulse 95 80 91 99 Resp 24 29 18 B/P (MAP) 152/64 151/71 Pulse Ox 100 100 100 O2 Flow Rate 21.00 21.00 FiO2 21 05/03/17 05/03/17 05/03/17 05/03/17 07:28 08:00 08:00 08:00 Temp 97.0 Pulse 89 106 Resp 36 34 B/P (MAP) 160/72 Pulse Ox 100 100 100 O2 Flow Rate 21.00 FiO2 21 05/03/17 05/03/17 05/03/17 05/03/17 09:00 09:46 10:00 11:07 Pulse 125 130 125 Resp 39 39 34 B/P (MAP) 152/79 158/73 Pulse Ox 96 98 98 100 O2 Flow Rate 21.00 21.00 FiO2 21 05/03/17 05/03/17 05/03/17 05/03/17 11:32 12:00 13:00 13:22 Temp 96.1 Pulse 111 116 114 116 Resp 39 37 36 B/P (MAP) 132/64 143/76 Pulse Ox 100 100 99 O2 Flow Rate 21.00 2.00 30.00 05/03/17 14:16 Pulse 101 Resp 22 Pulse Ox 100 O2 Flow Rate 30.00 Intake and Output 05/03/17 00:00 Intake Total 1265 ml Output Total 2285 ml Balance -1020 ml Weight (Pounds): 193 Weight (Ounces): 1.0 Weight (Calculated Kilograms): 87.239207 Constitutional: other (Intubated and ventilated) Respiratory: other (Fair bilateral air entry) Cardiovascular: tachycardia, S1 and S2, other (Faint WILL at card base) Gastrointestional: other (Recent abdominal surgery, colostomy in place) Extremities: No clubbing, No cyanosis, significant edema Neurologic/Psychiatric: other (Intubated and sedated; unable to cooperate with a neuro exam) Skin: No rash on exposed areas, ulcerations on exposed areas Results/Procedures: Labs Laboratory Tests 05/02/17 17:20: Glucometer 133H 05/03/17 04:15: Blood Gas Puncture Site RIGHT RADIAL, Blood Gas Patient Temperature 98.6, Arterial Blood pH 7.48H, Arterial Blood Partial Pressure CO2 36, Arterial Blood Partial Pressure O2 59L, Arterial Blood HCO3 27, Arterial Blood Total CO2 27.6, Arterial Blood Oxygen Saturation 93L, Arterial Blood Base Excess 3.2H, Brannon Test YES-POS, Blood Gas Ventilator Setting YES, Blood Gas Inspired Oxygen 21% 05/03/17 04:20: White Blood Count 17.3H, Red Blood Count 3.39L, Hemoglobin 9.9L, Hematocrit 30L , Mean Corpuscular Volume 88, Mean Corpuscular Hemoglobin 29, Mean Corpuscular Hemoglobin Concent 33, Red Cell Distribution Width 14.5, Platelet Count 204, Mean Platelet Volume 10.9H, Neutrophils (%) (Auto) 81H, Lymphocytes (%) (Auto) 9L, Monocytes (%) (Auto) 9, Eosinophils (%) (Auto) 0, Basophils (%) (Auto) 1, Neutrophils # (Auto) 14.0H, Lymphocytes # (Auto) 1.6, Monocytes # (Auto) 1.6H, Eosinophils # (Auto) 0.0, Basophils # (Auto) 0.2H, Sodium Level 150H, Potassium Level 5.4H, Chloride Level 117H, Carbon Dioxide Level 25, Anion Gap 8, Blood Urea Nitrogen 32H, Creatinine 0.56L, Estimat Glomerular Filtration Rate > 60, BUN/Creatinine Ratio 57, Glucose Level 147H, Calcium Level 7.7L, Phosphorus Level 2.7, Magnesium Level 2.6H 05/03/17 08:26: Blood Gas Puncture Site LR, Blood Gas Patient Temperature 98.0, Arterial Blood pH 7.40, Arterial Blood Partial Pressure CO2 46H, Arterial Blood Partial Pressure O2 53L, Arterial Blood HCO3 28H, Arterial Blood Total CO2 29.5, Arterial Blood Oxygen Saturation 87L, Arterial Blood Base Excess 3.5H, Brannon Test YES-POS, Blood Gas Ventilator Setting YES, Blood Gas Inspired Oxygen 21% 05/03/17 13:10: Blood Gas Puncture Site R RAD, Blood Gas Patient Temperature 98.0, Arterial Blood pH 7.28*L, Arterial Blood Partial Pressure CO2 64H, Arterial Blood Partial Pressure O2 63L, Arterial Blood HCO3 29H, Arterial Blood Total CO2 30.9 , Arterial Blood Oxygen Saturation 89L, Arterial Blood Base Excess 2.6H, Brannon Test YES-POS, Blood Gas Ventilator Setting NO, Blood Gas Inspired Oxygen 2L Microbiology 04/30/17 Blood Culture - Preliminary, Resulted No growth Laboratory Tests 05/02/17 04:20 05/03/17 04:20 A/P: Assessment: Perforated bowel and fecal peritonitis Septic shock Multiple arrhythmias including NSVT and sustained episodes of PAF, likely related to septicemia and elec abnormalities Prerenal azotemia Electrolyte abnormalities that are being managed by the Medical and Pulm/ [employer] [facility]st Services Generalized soft tissue swelling, likely due to hypoalbuminemia and 3rd spacing of fluid Guarded prognosis Plan: * Continue beta-leelee snsmg-ouv-suoet, if tolerated * Dilt infusion prn * Monitor labs; correct electrolytes, as needed * Furosemide for gen edema, as needed and as tolerated CHUCK SCHULZ MD FACP FAC CCDS May 03, 2017 15:03
[2017-05-03 15:34] LABS: ABG BASE EXCESS 3.9 MMOL/L (-2.5-2.5); ABG HCO3 29 MMOL/L (23-27); ABG OXYGEN SATURATION 94 % (94-100); ABG PCO2 49 MMHG (35-45); ABG PH 7.38 (7.37-7.43); ABG PO2 65 MMHG (79-93); ABG TCO2 30.5 MMOL/L (21.0-31.0)
[2017-05-03 15:38] LABS: ALLENS TEST POSITIVE; PATIENT TEMP 96.4
[2017-05-03] MEDS: FONDAPARINUX 2.5 MG (ARIXTRA) SYR NON-FORMULARY SQ SCH (17:09)
[2017-05-03] MEDS: DILTIAZEM DRIP 100 MG in SODIUM CHLORIDE (ADD-VANTAGE) 100 ML IV SCH (20:02)
[2017-05-04] VITALS (36 sets, daily range): BP systolic 82–167; BP diastolic 37–85
[2017-05-04] MEDS: METOCLOPRAMIDE INJ 10 MG/2 ML (REGLAN) IVP SCH ×4 (00:16→17:12)
[2017-05-04] MEDS: metroNIDAZOLE 500MG/100ML IVPB 100 ML IV SCH ×3 (00:16→17:12)
[2017-05-04] MEDS: meTOprolol 5 MG/5 ML (LOPRESSOR) VIAL IV SCH ×8 (01:49→22:45)
[2017-05-04] MEDS: RT-ALBUTEROL/IPRATROPIUM 3 ML (DUONEB) VIAL INH SCH ×6 (02:32→22:51)
[2017-05-04 04:17] LABS: ABG BASE EXCESS 6.4 MMOL/L (-2.5-2.5); ABG HCO3 31 MMOL/L (23-27); ABG OXYGEN SATURATION 94 % (94-100); ABG PCO2 47 MMHG (35-45); ABG PH 7.43 (7.37-7.43); ABG PO2 67 MMHG (79-93)
[2017-05-04 04:19] LABS: ALLENS TEST YES-POS; PATIENT TEMP 99.4
[2017-05-04 04:26] LABS: BASOPHILS # (AUTO) 0.1 10^3/uL (0.0-0.1); BASOPHILS % (AUTO) 0 % (0-10); EOSINOPHILS % (AUTO) 0 % (0-10); LYMPHOCYTES # (AUTO) 0.8 X 10^3 (1.0-4.0); LYMPHOCYTES % (AUTO) 5 % (12-44); MEAN CORPUSCULAR HEMOGLOBIN 29 PG (25-34); MEAN CORPUSCULAR HGB CONC 33 G/DL (32-36); MEAN CORPUSCULAR VOLUME 89 FL (80-99); MEAN PLATELET VOLUME 10.7 FL (7.4-10.4); MONOCYTES # (AUTO) 0.9 X 10^3 (0.0-1.0); MONOCYTES % (AUTO) 6 % (0-12); NEUTROPHILS % (AUTO) 89 % (42-75); PLATELET COUNT 239 10^3/uL (130-400); RED CELL DISTRIBUTION WIDTH 14.3 % (10.0-14.5); WHITE BLOOD COUNT 15.7 10^3/uL (4.3-11.0)
[2017-05-04 04:42] LABS: ANION GAP 8 MMOL/L (5-14); BLOOD UREA NITROGEN 36 MG/DL (7-18); BUN/CREATININE RATIO 61; CALCIUM 7.5 MG/DL (8.5-10.1); CARBON DIOXIDE 26 MMOL/L (21-32); CHLORIDE 115 MMOL/L (98-107); CREATININE SERUM 0.59 MG/DL (0.60-1.30); GFR ESTIMATED > 60; GLUCOSE 165 MG/DL (70-105); MAGNESIUM 2.4 MG/DL (1.8-2.4); POTASSIUM 4.7 MMOL/L (3.6-5.0); SODIUM 149 MMOL/L (135-145)
[2017-05-04] MEDS: KCL 20 MEQ TAB (K-DUR) PO SCH (05:21)
[2017-05-04] MEDS: MAGNESIUM 1 GM/100 ML IVPB 100 ML IV SCH (05:21)
[2017-05-04] MEDS: DEXMEDETOMIDINE INJECTION 400 MCG in NS (IVPB) 100 ML IV SCH (05:21)
[2017-05-04] MEDS: POTASSIUM CL 10MEQ/50ML IVPB 50 ML IV SCH (05:21)
[2017-05-04] MEDS: MEROPENEM 1 GM/NS 100 ML IVPB IV SCH ×6 (05:58→22:12)
[2017-05-04] MEDS: aCETylcysteine 20% (MUCOMYST) 30ML SOLN VIAL INH SCH ×2 (06:43→14:35)
--- NOTE | 2017-05-04 07:19 | Pulmonary Progress Note ---
Subjective Subjective/Events-last exam PT is off ventilator however requiring BiPAP secondary to severe weakness. SHe is only requiring 25% oxygen Exam Exam Vital Signs Date Time Temp Pulse Resp B/P (MAP) Pulse Ox O2 Delivery O2 Flow Rate FiO2 05/04/17 06:43 85 35 100 30.00 05/04/17 06:00 94 36 140/72 100 30.00 05/04/17 05:00 85 35 136/72 100 30.00 05/04/17 04:00 99.4 101 36 141/67 100 30.00 05/04/17 04:00 100 30 05/04/17 03:50 105 41 100 30.00 05/04/17 03:00 91 36 134/70 100 30.00 05/04/17 02:32 80 39 100 30.00 05/04/17 02:00 90 34 129/64 100 30.00 05/04/17 01:00 101 34 141/57 100 30.00 05/04/17 01:00 105 05/04/17 00:40 105 37 100 30.00 05/04/17 00:00 99.3 85 37 150/75 100 30.00 05/04/17 00:00 100 30 05/03/17 23:00 103 33 141/57 100 30.00 05/03/17 22:00 64 42 135/39 100 30.00 05/03/17 21:47 80 40 100 30.00 05/03/17 21:00 93 38 139/71 100 30.00 05/03/17 20:00 100 30 05/03/17 20:00 98.6 100 36 139/82 100 30.00 05/03/17 19:45 101 39 100 30.00 05/03/17 19:00 89 05/03/17 19:00 89 34 160/89 100 30.00 05/03/17 18:42 95 32 100 30.00 05/03/17 18:00 91 30 154/78 100 30.00 05/03/17 17:00 68 35 157/74 100 30.00 05/03/17 16:42 98 31 100 30.00 05/03/17 15:37 96.4 108 26 158/81 100 30.00 05/03/17 15:10 100 30 05/03/17 14:16 101 22 100 30.00 05/03/17 14:00 81 36 150/67 96 30.00 05/03/17 13:22 116 36 99 30.00 05/03/17 13:20 98 30.00 05/03/17 13:00 114 05/03/17 13:00 114 26 148/71 100 2.00 05/03/17 12:00 116 37 143/76 100 2.00 05/03/17 11:32 96.1 111 39 132/64 100 21.00 05/03/17 11:07 100 21 05/03/17 10:00 125 34 158/73 98 21.00 05/03/17 09:46 130 39 98 21 05/03/17 09:00 125 39 152/79 96 21.00 05/03/17 08:00 106 34 160/72 100 21.00 05/03/17 08:00 97.0 05/03/17 08:00 100 21 05/03/17 07:28 89 36 100 21 I & O 05/04/17 07:00 Intake Total 2400 ml Output Total 4200 ml Balance -1800 ml General Appearance: No Apparent Distress HEENT: PERRL/EOMI Neck: Full Range of Motion Respiratory: Chest Non Tender, Normal Breath Sounds, Rhonci Cardiovascular: Regular Rate, Rhythm Capillary Refill: Less Than 3 Seconds Gastrointestinal: soft, tenderness Extremity: Normal Capillary Refill Neurologic/Psychiatric: Alert, Oriented x3 Skin: Normal Color Lymphatic: No Adenopathy Results Lab Laboratory Tests 05/03/17 04:20 05/04/17 04:17 Assessment/Plan Assessment/Plan Acute respiratory failure since postop secondary to aspiration of bowel contents -PT is off ventilator however she is requring BiPAP -Pt is awake/alert - -continue morphine for pain control Acute peritonitis with severe sepsis secondary to colonic perforation s/p surgery -Continue Merrem Diflucan vancomycin. Flagyl added yesterday -repeat garcía cultures -pending Hypernatremia/hyperchloremia - Secondary to saline - doubt volume depletion BNP 578 -IVF changed to D5W thrombocytopenia - improving -HIT Abx is negative -Arixtra Atelectasis, pulmonary edema, and mucous plugging on CT of chest -Add SVN Q4 Duoneb with Mucomyst TID -CPT per RT -monitor CXR Severe Deconditioning - pt is very weak -PT/OT -Up to chair BID if possible -TPN discussed with Dr. Ng -- Once pt is able to tolerate being off BiPAP can restart TF. If pt ends up back on vent will restart TF. -I also discussed with pharmacy -Pt may need PEG tube Afib RVR- now converted back to sinus -Pt is on amio gtt Hypoglycemia - IVF D5W hypothyroid -Pt is getting IV Synthroid -repeat TSH HX of SVT/AF -LABS AND CXR REVIEWED 233 30min spent with patient Clinical Quality Measures DVT/VTE Risk/Contraindication: Risk Factor Score Per Nursin RFS Level Per Nursing on Admit: 4+=Very High CHRISS ARTIS DO May 04, 2017 07:19
[2017-05-04] MEDS ORDERED: TPN IV SCH (07:45)
--- NOTE | 2017-05-04 08:02 | Progress Note-Hospitalist ---
Subjective HPI/CC On Admission Date Seen by Provider: May 04, 2017 Time Seen by Provider: 07:30 CC: Management of critical illness with acute peritonitis due to bowel perforation with aspiration of bowel contents during intubation HPI: This is a 61-year-old white female clinic patient of Dr. 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 Apparently she was wanting to go to [place] and used to suppository like she usually does because she is struggle with constipation since cardiac meds have been initiated several years ago but at noon time she started having a lot of pain to the extent that required emergency room evaluation. CT scan was obtained found to have bowel perforation with peritonitis and during intubation for surgery she aspirated bowel contents so she now has a diverting colostomy but the pictures during surgery appeared to have a multitude of impacted bowel contents within the abdominal cavity. I did speak with Dr. Horvath her primary care provider and employer and it appears that she is not up-to-date on her colonoscopy and has not had one before and she has had significant constipation issues for the past several years so I hypothesized that impacted stool has been an ongoing problem for her probably stretching the tissue over a long period time and finally rupturing causing this critical illness. She is requiring high doses of Levophed and closely monitoring due to severe sepsis and multisystem organ failure. She has received aggressive IV fluids per protocol and currently monitor closely due to history of arrhythmia maintained on Rythmol as an outpatient. She sees Dr. Ku cardiology at [place] after she failed undergoing ablation up in [place] years ago. I have consulted cardiology and vat overhauler and eICU to facilitate management of this critically ill patient. Date Seen 05/04/17 Subjective/Events-last exam patient was successfully extubated yesterday. Post extubation ABG showed no evidence of CO2 retention. She did have adequate oxygenation.'s been maintained on BiPAP overnight with increased respiratory rate. Her condition was discussed with Dr. Causey. Nutrition remains problematic. She'll be maintained on TPN for short term until her respiratory status improves or it's necessary to do a tracheostomy. PEG tube is also being considered. Patient is awake and alert extremely weak but able to interact. Review of Systems Pulmonary: Dyspnea Neurological: Weakness Objective Exam Vital Signs Vital Sign - Last 12Hours 04/28/17 04/30/17 00:00 04:59 Temp 98.6 Pulse 158 Resp 23 B/P (MAP) 103/67 105/61 Pulse Ox 100 O2 Delivery Mechanical Ventilator O2 Flow Rate 21.00 Capillary Refill : Less Than 3 Seconds General Appearance: Mild Distress HEENT: Normal ENT Inspection Neck: Limited Range of Motion Respiratory: Lungs Clear, Accessory Muscle Use, Other (increased respiratory rate) Cardiovascular: Irregularly Irregular Gastrointestinal: Soft Results/Procedures Lab Laboratory Tests 05/04/17 04:17 Assessment/Plan Assessment and Plan Assess & Plan/Chief Complaint Assessment: Acute peritonitis from colonic perforation with impacted stool with long history of severe chronic constipation status post diverting colostomy POD # 9 with septic shock requiring pressors and aggressive IVF management now improved and white count has gone down and there is improved opacification of the right lung. CT chest abdomen pelvis is unremarkable. day number 3 Flagyl for increased anaerobic coverage. Aspiration of bowel contents during intubation for surgery with respiratory failure currently off the ventilator with improved chest x-ray. Extreme weakness and the possibility of fatiguing makes the likelihood of reintubation increased History of SVT status post attempted ablation and unsuccessful maintained on Rythmol by Dr. Ku cardiology [place] consulted Dr Nettles and his recs are appreciated and had an episode of AF 4 nights ago resolved with suctioning-she remains in sinus rhythm History of hypertension Hypothyroidism Leukopenia due to sepsis now leukocytosis Hypokalemia -resolved-now hyperkalemic-slightly improved today Metabolic acidosis due to sepsis-resolved Thrombocytopenia due to sepsis-resolved fluid overload-currently on daily Lasix and albumin-we'll check UA and urine lites-she has had more out than in for the last 4 days. Protein calorie malnutrition- on enteral feedings increasing total bilirubin-we'll monitor hypernatremia will need to adjust IV fluids-slightly improved diffuse weakness we'll need aggressive physical therapy and possible short-term stay in rehabilitation unit-Dr. Causey's checking a TSH Plan: change IV fluids extubate today Empiric antibiotics for peritonitis and aspiration of bowel contents on Flagyl meropenem and Diflucan Cardiology recs are appreciated Monitor labs Maintain colostomy-currently functioning SCDs KAREN HOWARD MD May 04, 2017 8:02 am
[2017-05-04 08:57] LABS: ABG BASE EXCESS 7.3 MMOL/L (-2.5-2.5); ABG HCO3 34 MMOL/L (23-27); ABG OXYGEN SATURATION 75 % (94-100); ABG PO2 53 MMHG (79-93); ABG TCO2 35.9 MMOL/L (21.0-31.0)
--- NOTE | 2017-05-04 08:59 | Diagnostic Imaging Report ---
INDICATION: Respiratory failure. EXAMINATION: Portable chest at 4:40 AM. FINDINGS: A right IJ central line tip projects over the SVC. There is scoliosis of the thoracic spine, convex to the right. The heart size and pulmonary vascularity are normal. The lungs are clear. IMPRESSION: Interval removal of the ET and NG tubes since the previous day. The chest is otherwise unremarkable. Dictated by: Dictated on workstation # [id number]
--- NOTE | 2017-05-04 09:00 | Physical Therapy Daily Note ---
PT Daily Note-Current Subjective Patient is on BiPap and will open her eyes briefly, however, not following direction. Pain Numeric Pain Scale: 0-No Pain Location: No Pain Reported Mental Status Patient Orientation: Listless Attachments: Reynolds Catheter, IV Transfers Functional [place] Measure 0=Not Assessed/NA 4=Minimal Assistance 1=Total Assistance 5=Supervision or Setup 2=Maximal Assistance 6=Modified [place] 3=Moderate Assistance 7=Complete IndependenceIRFPAI Quality Coding Scale 6 Independent with activity with or without an assistive device 5 Patient requires set up or clean up by helper. Patient completes activity by themselves 4 Supervision or touching assist (CGA). [place] provide cues , steadying assist 3 The helper provides less than half the effort to complete the activity 2 The helper provides more than half the effort to complete the activity 1 Dependent. The helper does all the effort to complete an activity 7 Patient refused to complete or attempt activity 9 The patient did not perform the activity before the current illness or injury 88 Not attempted due to Medical conditions or safety concerns Patient is not alert and is unsafe to attempt sitting EOB at this time. RT in with patient due to decreased tidal volume Exercises Supine Ex: Ankle pumps, Heel Slides, Straight leg raise, Hip abd/add Assessment PROM bilateral LE x 10 minutes. Patient is sedated and not safe at this time to perform bed mobility and to sit EOB. RN and RT agree. PT will continue to attempt this task as patient progresses with medical condition. PT [facility] Goals [facility] Goals PT [facility] Goals Time Frame: May 13, 2017 Transfers (B,C,W/C) (FIM): 4 Gait (FIM): 2 Gait distance (FIM): 1=up to 49 ft Gait Assistive Device: FWW PT Plan Treatment/Plan Treatment Plan: Continue Plan of Care Treatment Plan: Bed Mobility, Education, Functional Activity Carlos A, Functional Strength, Gait, Safety, Therapeutic Exercise, Transfers Treatment Duration: May 13, 2017 Visits Per Week: 5-11 Time/GCodes Time In: 836 Time Out: 846 Total Billed Treatment Time: 10 Total Billed Treatment 1 visit EX 10 min JOSE CARUSO PT May 04, 2017 09:00
[2017-05-04 09:01] LABS: ABG PH 7.28 (7.37-7.43)
[2017-05-04] MEDS: PANTOPRAZOLE 40 MG/10 ML (PROTONIX) VIAL IVP SCH (09:01)
[2017-05-04] MEDS: FUROSEMIDE 40 MG/4 ML INJ (LASIX) IVP SCH (09:01)
[2017-05-04] MEDS: LEVOTHYROXINE 100 MCG INJ (SYNTHROID) VIAL IV SCH (09:01)
[2017-05-04 09:02] LABS: ABG PCO2 76 MMHG (35-45); ALLENS TEST YES-POS; PATIENT TEMP 100.1
[2017-05-04] MEDS: FLUCONAZOLE 100 MG/50 ML 50 ML IV SCH (09:02)
[2017-05-04] MEDS: AMIODARONE 200 MG (CORDARONE) TAB PO SCH (09:02)
--- NOTE | 2017-05-04 09:29 | Speech Therapy Progress Note ---
Therapy Progress Note Date Seen by Provider: May 04, 2017 Time Seen by Provider: 09:24 Dysphagia consult received and chart reviewed. At this time, the patient remains on BiPAP and per RN is inappropriate for swallow evaluation. The clinician will continue to follow up on patient for appropriateness. Thank you. DARRIAN BLOCK May 04, 2017 09:29
[2017-05-04 10:23] LABS: ABG BASE EXCESS 4.9 MMOL/L (-2.5-2.5); ABG HCO3 32 MMOL/L (23-27); ABG OXYGEN SATURATION 88 % (94-100); ABG PO2 60 MMHG (79-93)
[2017-05-04 10:25] LABS: ABG PCO2 71 MMHG (35-45); ABG PH 7.27 (7.37-7.43)
[2017-05-04 10:26] LABS: ALLENS TEST YES-POS; PATIENT TEMP 96.5
[2017-05-04] MEDS ORDERED: PROPOFOL DRIP (ICU) 100 ML IV ONE (10:38)
[2017-05-04] MEDS ORDERED: ATROPINE INJECTION 1 MG/10 ML SYR (ABBOTT) ONE (10:57)
[2017-05-04] MEDS ORDERED: NS IV 1000 ML 1,000 ML ONE (11:00)
[2017-05-04] MEDS: PROPOFOL DRIP (ICU) 100 ML IV SCH ×2 (11:05→22:29)
--- NOTE | 2017-05-04 11:10 | Anesthesia-Procedure Note ---
Procedure Start/Stop Time Date of Procedure: May 04, 2017 Start Time: 11:00 Stop Time: 11:08 Procedures/Interventions Reason for Intubation: IMPENDING RESPIRATORY FAILURE RSI: No 100% pre-Ox, [id number]: Yes Intubation Method: orotracheal Videoscope used: Yes Grade View: 1 Medications: Propofol (80 MG), Succinylcholine (100MG) Positive End Tide CO2: Yes Breath Sounds after Intubation: bilateral-equal ETT Securred @ (cm): 23 Intubated with ease: Yes Intubation Complications: no complications Post Intubation Xray-done: Yes Post Procedure INTUBATED WITH EASE. CARE RETURNED TO RN/RT STAFF KRISH COOK CRNA May 04, 2017 11:10
--- NOTE | 2017-05-04 11:31 | Diagnostic Imaging Report ---
INDICATION: Respiratory failure. Portable chest 11:22 AM FINDINGS: There is an ET tube projecting over the trachea. NG tube projects over the stomach. Right IJ central line tip projects over the SVC. Scoliosis of the thoracic spine convex to the right. Lungs are clear. There are no effusions or pneumothoraces. IMPRESSION: No acute abnormalities in the chest. Dictated by: Dictated on workstation # [id number]
[2017-05-04 12:33] LABS: ABG BASE EXCESS 3.8 MMOL/L (-2.5-2.5); ABG HCO3 29 MMOL/L (23-27); ABG OXYGEN SATURATION 88 % (94-100); ABG PCO2 59 MMHG (35-45); ABG PO2 60 MMHG (79-93); ABG TCO2 31.2 MMOL/L (21.0-31.0)
[2017-05-04 12:34] LABS: ABG PH 7.32 (7.37-7.43); ALLENS TEST POSITIVE; PATIENT TEMP 98.5
[2017-05-04] MEDS ORDERED: SUCCINYLCHOLINE INJ 100 MG/5 ML SYR INJ ONE (13:20)
--- NOTE | 2017-05-04 13:50 | Speech Therapy Progress Note ---
Therapy Progress Note Date Seen by Provider: May 04, 2017 Time Seen by Provider: 13:49 Speech pathology reviewed patient's chart for possible re-attempt at swallowing evaluation. Per chart review, the patient was recently reintubated. Due to reintubation, the patient is not appropriate for a swallow evaluation. At this time, speech pathology will sign off. Please reconsult speech pathology once the patient is extubated and appropriate for PO intake. Thank you. DARRIAN BLOKC May 04, 2017 13:50
--- NOTE | 2017-05-04 14:00 | Diagnostic Imaging Report ---
INDICATION: PICC line placement. FINDINGS: There is right EJ and right upper extremity PICC line in place. Tips of each project over the SVC. ET tube projects over the trachea with tip near the guera. It has 8 mm to the guera. NG tube enters stomach. There is some atelectasis at both lung bases greater on left than on the right. IMPRESSION: Bilateral basilar infiltrate or atelectasis left greater than right and similar to earlier in the day. Dictated by: Dictated on workstation # [id number]
--- NOTE | 2017-05-04 14:00 | Occupational Therapy Eval ---
OT Evaluation-General/PLF Medical Diagnosis Admission Date April 25, 2017 at 23:50 Medical Diagnosis: sigmoid perf with fecal peritonitis Onset Date: April 25, 2017 Therapy Diagnosis Therapy Diagnosis: decr self care, edema, decr mobility, decr use of UEs Height/Weight Height (Feet): 5 Height (Inches): 8.00 Weight (Pounds): 190 Weight (Ounces): 5.0 Precautions Precautions/Isolations: Fall Prevention, Standard Precautions Safety Interventions: Reorient-PRN Referral Physician: Hernandez Referral Reason: Evaluation/Treatment Medical History Pertinent Medical History: Arthritis, HTN, Hypothroidism Additional Medical History Cardiac ablation, chronic constipation renal stent, thumb release, carpal tunnel surgeries Current History Abdominal pain and lack of BM. Bowel perforation and acute peritonitis. Now on vent, unresponsive. 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 Appearance Unresponsive to verbal or tactile stimulation ADL-Treatment Functional [place] Measure 0=Not Assessed/NA 4=Minimal Assistance 1=Total Assistance 5=Supervision or Setup 2=Maximal Assistance 6=Modified [place] 3=Moderate Assistance 7=Complete IndependenceIRFPAI Quality Coding Scale 6 Independent with activity with or without an assistive device 5 Patient requires set up or clean up by helper. Patient completes activity by themselves 4 Supervision or touching assist (CGA). [place] provide cues , steadying assist 3 The helper provides less than half the effort to complete the activity 2 The helper provides more than half the effort to complete the activity 1 Dependent. The helper does all the effort to complete an activity 7 Patient refused to complete or attempt activity 9 The patient did not perform the activity before the current illness or injury 88 Not attempted due to Medical conditions or safety concerns Other Treatments Pt did not respond to verbal or tactile stimulation and no active movement observed. PT has been seeing pt for PROM bilat UEs. Pt has significant edema bilat UEs. PROM in finger limited by edema, no active movement observed. Gentle retrograde massage to bilat hands decreased edema and allowed increased PROM. Isotoner gloves applied to bilat hands after massage to help provide gentle compression and maintain dec edema. Wrist restraints applied and arms elevated as much ass possible on pillows to help decrease edema. Nursing notified of gloves. Education OT Patient Education: Instructions to caregiver OT Stem Frazer Goals Skilled Nursing Goals Time Frame: May 18, 2017 - Decrease edema to allow functional use bilat UEs. - Increase functional use UEs - Increase participation in basic self care as pt status changes Additional Goals: 3-ImproveStrength/Carlos A 3=Patient will improve strength/tolerance for activity to enable patient to perform ADL's. OT Education/Plan Problem List/Assessment Assessment: Restricted Funct UE ROM Pt would benefit from skilled OT to help increase functional use of bilat UEs and independence in basic self care to decrease caregiver burden and assist with discharge planning Discharge Recommendations Plan/Recommendations: Continue POC Treatment Plan/Plan of Care Treatment,Training & Education: Yes Patient would benefit from OT for education, treatment and training to promote independence in ADL's, mobility, safety and/or upper extremity function for ADL' s. Plan of Care: ADL Retraining (when appropriate), UE Funct Exercise/Act, UE Neuromus Re-Ed/Coord Treatment Duration: May 18, 2017 # of days/week 5 Visits Per Week: 5 Agreement: No (pt unable to participate in decision making. No family present) Rehab Potential: Guarded Time/GCodes Start Time: 11:42 Stop Time: 11:50 Total Time Billed (hr/min): 8 Billed Treatment Time visit, 8 minutes evaluation low intensity WENDY WATKINS OT May 04, 2017 14:00
--- NOTE | 2017-05-04 14:13 | Occupational Ther Daily Note ---
OT Current Status-Daily Note Subjective Pt seen in room, in bed. Non responsive to OT to verbal or tactile stimulation Mental Status/Objective Patient Orientation: Unresponsive Functional [place] Measure 0=Not Assessed/NA 4=Minimal Assistance 1=Total Assistance 5=Supervision or Setup 2=Maximal Assistance 6=Modified [place] 3=Moderate Assistance 7=Complete [place] Other Treatment This treatment was done after evaluation, not during evaluation as charted. PROM in finger limited by edema, no active movement observed. Gentle retrograde massage to bilat hands decreased edema and allowed increased PROM. Isotoner gloves applied to bilat hands after massage to help provide gentle compression and maintain dec edema. Wrist restraints applied and arms elevated as much as possible on pillows to help decrease edema. Nursing notified of gloves. Education OT Patient Education: Instructions to caregiver Teaching Recipient: Primary Caregiver OT Short Term Goals Short Term Goals 1=Demonstrate adherence to instructed precautions during ADL tasks. 2=Patient will verbalize/demonstrate understanding of assistive devices/ modifications for ADL. 3=Patient will improve strength/tolerance for activity to enable patient to perform ADL's. OT Mcc Goals Mcc Goals Time Frame: May 18, 2017 - Decrease edema to allow functional use bilat UEs. - Increase functional use UEs - Increase participation in basic self care as pt status changes Additional Goals: 3-ImproveStrength/Carlos A 1=Demonstrate adherence to instructed precautions during ADL tasks. 2=Patient will verbalize/demonstrate understanding of assistive devices/ modifications for ADL. 3=Patient will improve strength/tolerance for activity to enable patient to perform ADL's. OT Education/Plan Problem List/Assessment Pt would benefit from skilled OT to help increase functional use of bilat UEs and independence in basic self care to decrease caregiver burden and assist with discharge planning Discharge Recommendations Plan/Recommendations: Continue POC Treatment Plan/Plan of Care Patient would benefit from OT for education, treatment and training to promote independence in ADL's, mobility, safety and/or upper extremity function for ADL' s. Plan of Care: ADL Retraining (when appropriate), UE Funct Exercise/Act, UE Neuromus Re-Ed/Coord Treatment Duration: May 18, 2017 Visits Per Week: 5 Agreement: No (pt unable to participate in decision making. No family present) Rehab Potential: Guarded Time/GCodes Start Time: 12:40 Stop Time: 12:55 Total Time Billed (hr/min): 15 Billed Treatment Time visit, 15 minutes neuromotor WENDY WATKINS OT May 04, 2017 14:13
[2017-05-04] MEDS: DEXMEDETOMIDINE INJECTION 200 MCG in NS (IVPB) 50 ML IV SCH ×2 (14:16→22:11)
[2017-05-04] MEDS: D5W 1000 ML IV SOLUTION 1,000 ML IV SCH ×2 (14:16→22:11)
--- NOTE | 2017-05-04 15:12 | Progress Note-Standard ---
Standard Progress Note Progress Notes/Assess & Plan Date Seen by Provider: May 04, 2017 Time Seen by Provider: 13:49 Progress/Assessment & Plan 04/26/17:septic with severe leukopenia. Very poor urine output. On dual vasopressors. Sinus tachycardia. Outcome poor with expected mortality. Central venous pressure around 12. We'll continue to provide fluid resuscitation and maintain vasopressors for now. 04/27/17:continues to require vasopressor support. Urine output reasonable. Creatinine slightly elevated. Ventilation and oxygenation stable. Will place a wound VAC tomorrow. Continue supportive abdomen. Enteral nutrition in 24- 48 hours. DVT prophylaxis with low molecular weight heparin, renally adjusted dose 04/28/17:off the vasopressors. Renal function reasonable.NG output more than 1 L and therefore tube feeding will be delayed.electrolytes satisfactory.we'll continue current management. 04/29/17:Improving. Would facilitate diuresis before embarking on extubation. Intra-abdominal abscesses to be looked for by next week. L femoral arterial line satisfactory with no distal ischemia. Nutritional support in 24-48 hours. 04/30/17:slight change in her condition with decreased urine output and leukocytosis. Abdominal abscess in evolution very likely the culprit. More opacification of the right lung. We will try enteral feeding. Continue antibiotics 05/01/17 Diuresis in progress. Pressure mattress appropriate to prevent skin breakdown. Fascia intact. Tolerating tube feeds. Vent weaning over terrie next 24- 48 hours. HIT antibodies negative 05/04/17: Reintubated. Anasarca improved. Fascia intact. Intra-abdominal abscesses to be expected. CT scan in 48 hours. Tracheostomy discussed with the family and planned for this week Final Diagnosis Fecal peritonitis due to sigmoid perforation. MACY TALAVERA MD May 04, 2017 3:12 pm
[2017-05-04] MEDS: DILTIAZEM DRIP 100 MG in SODIUM CHLORIDE (ADD-VANTAGE) 100 ML IV SCH (15:22)
--- NOTE | 2017-05-04 16:58 | Cardiology Progress Note ---
Cardiology SOAP Progress Note Subjective: extubated today. Not complaining of any cardiac symptoms but very lethargic. Objective: I&O/Vital Signs Vital Sign - Last 12Hours 05/04/17 05/04/17 05/04/17 05/04/17 05:00 06:00 06:43 07:00 Pulse 85 94 85 110 Resp 35 36 35 B/P (MAP) 136/72 140/72 Pulse Ox 100 100 100 O2 Flow Rate 30.00 30.00 30.00 05/04/17 05/04/17 05/04/17 05/04/17 08:00 08:00 08:35 09:07 Temp 100.1 Pulse 107 109 Resp 36 38 Pulse Ox 100 98 98 O2 Flow Rate 25.00 25.00 FiO2 30 05/04/17 05/04/17 05/04/17 05/04/17 10:21 11:00 11:05 12:00 Pulse 96 105 Resp 39 18 B/P (MAP) 83/41 Pulse Ox 100 100 100 O2 Flow Rate 25.00 FiO2 100 100 05/04/17 05/04/17 05/04/17 05/04/17 12:00 12:29 13:00 14:35 Temp 96.7 Pulse 78 99 94 Resp 18 18 Pulse Ox 100 100 FiO2 100 80 05/04/17 05/04/17 16:12 16:47 Pulse 80 Resp 21 Pulse Ox 100 100 FiO2 60 100 Intake and Output 05/04/17 00:00 Intake Total 1300 ml Output Total 2175 ml Balance -875 ml Weight (Pounds): 190 Weight (Ounces): 5.0 Weight (Calculated Kilograms): 86.746899 Constitutional: other (just extubated today) Respiratory: other (Fair bilateral air entry; coarse airway sounds but no rhonchi) Cardiovascular: regular rate-rhythm, tachycardia, S1 and S2, other (Faint WILL at card base) Gastrointestional: other (Recent abdominal surgery, colostomy in place) Extremities: No clubbing, No cyanosis, significant edema Neurologic/Psychiatric: other (Intubated and sedated; unable to cooperate with a neuro exam) Skin: No rash on exposed areas, ulcerations on exposed areas Results/Procedures: Labs Laboratory Tests 05/03/17 18:03: Glucometer 192H 05/04/17 04:10: Blood Gas Puncture Site LT RADIAL, Blood Gas Patient Temperature 99.4, Arterial Blood pH 7.43, Arterial Blood Partial Pressure CO2 47H, Arterial Blood Partial Pressure O2 67L, Arterial Blood HCO3 31H, Arterial Blood Total CO2 32.0H, Arterial Blood Oxygen Saturation 94, Arterial Blood Base Excess 6.4H, Brannon Test YES-POS, Blood Gas Ventilator Setting NO, Blood Gas Inspired Oxygen 30% BIPAP 05/04/17 04:16: B-Type Natriuretic Peptide 1615.7H 05/04/17 04:17: White Blood Count 15.7H, Red Blood Count 3.20L, Hemoglobin 9.3L, Hematocrit 28L , Mean Corpuscular Volume 89, Mean Corpuscular Hemoglobin 29, Mean Corpuscular Hemoglobin Concent 33, Red Cell Distribution Width 14.3, Platelet Count 239, Mean Platelet Volume 10.7H, Neutrophils (%) (Auto) 89H, Lymphocytes (%) (Auto) 5L, Monocytes (%) (Auto) 6, Eosinophils (%) (Auto) 0, Basophils (%) (Auto) 0, Neutrophils # (Auto) 14.0H, Lymphocytes # (Auto) 0.8L, Monocytes # (Auto) 0.9, Eosinophils # (Auto) 0.0, Basophils # (Auto) 0.1, Sodium Level 149H, Potassium Level 4.7, Chloride Level 115H, Carbon Dioxide Level 26, Anion Gap 8, Blood Urea Nitrogen 36H, Creatinine 0.59L, Estimat Glomerular Filtration Rate > 60, BUN/Creatinine Ratio 61, Glucose Level 165H, Calcium Level 7.5L, Phosphorus Level 3.0, Magnesium Level 2.4, Triglycerides Level 80, Thyroid Stimulating Hormone (TSH) 0.81, Smear Scan YES 05/04/17 08:50: Blood Gas Puncture Site LEFT RADIAL, Blood Gas Patient Temperature 100.1, Arterial Blood pH 7.28*L, Arterial Blood Partial Pressure CO2 76*H, Arterial Blood Partial Pressure O2 53L, Arterial Blood HCO3 34H, Arterial Blood Total CO2 35.9H, Arterial Blood Oxygen Saturation 75L, Arterial Blood Base Excess 7.3H , Brannon Test YES-POS, Blood Gas Ventilator Setting NO, Blood Gas Inspired Oxygen BILEVEL 25% 05/04/17 09:13: Prealbumin 12.4L 05/04/17 10:16: Blood Gas Puncture Site R RADIAL, Blood Gas Patient Temperature 96.5, Arterial Blood pH 7.27*L, Arterial Blood Partial Pressure CO2 71*H, Arterial Blood Partial Pressure O2 60L, Arterial Blood HCO3 32H, Arterial Blood Total CO2 34.0H , Arterial Blood Oxygen Saturation 88L, Arterial Blood Base Excess 4.9H, Brannon Test YES-POS, Blood Gas Ventilator Setting NO, Blood Gas Inspired Oxygen BIPAP 30% 05/04/17 10:22: 05/04/17 12:26: Blood Gas Puncture Site LEFT RADIAL, Blood Gas Patient Temperature 98.5, Arterial Blood pH 7.32*L, Arterial Blood Partial Pressure CO2 59H, Arterial Blood Partial Pressure O2 60L, Arterial Blood HCO3 29H, Arterial Blood Total CO2 31.2H, Arterial Blood Oxygen Saturation 88L, Arterial Blood Base Excess 3.8H , Brannon Test POSITIVE, Blood Gas Ventilator Setting YES, Blood Gas Inspired Oxygen 100% Microbiology 04/30/17 Blood Culture - Preliminary, Resulted No growth A/P: Assessment/Dx: Large bowel perforation, fecal peritonitis, severe septic shock. Nonsustained VT, PAF, Acute diastolic heart failure Plan: Large bowel perforation status post emergent abdominal surgery by Dr. Ng. Peritonitis/severe septic shock: On broad-spectrum antibiotics. Significant improvement of shock. Off vasopressors. extubated today. Nonsustained VT: no ectopy overnight. Continue PO amiodarone 200mg and metoprolol. PAF: currently in sinus rhythm. acute diastolic heart failure: Elevated BNP. Normal EF on Echo. Treatment with IV lasix. Thank you for your consultation. Please call me if you have any questions. Jung Foote MD, FACP, FACC, FSCAI, FHRS, CCDS Interventional Cardiology Cardiac Electrophysiology Vascular Medicine and Endovascular Interventions Darshana FOOTE MD May 04, 2017 4:58 pm
[2017-05-04] MEDS: FONDAPARINUX 2.5 MG (ARIXTRA) SYR NON-FORMULARY SQ SCH (17:12)
[2017-05-04] MEDS ORDERED: aCETylcysteine 20% (MUCOMYST) 30ML SOLN VIAL INH SCH (21:00)
[2017-05-05] VITALS (36 sets, daily range): BP systolic 107–215; BP diastolic 48–97
[2017-05-05] MEDS: METOCLOPRAMIDE INJ 10 MG/2 ML (REGLAN) IVP SCH ×5 (00:42→22:57)
[2017-05-05] MEDS: metroNIDAZOLE 500MG/100ML IVPB 100 ML IV SCH ×3 (00:42→16:55)
[2017-05-05] MEDS: meTOprolol 5 MG/5 ML (LOPRESSOR) VIAL IV SCH ×9 (01:45→22:57)
[2017-05-05] MEDS: RT-ALBUTEROL/IPRATROPIUM 3 ML (DUONEB) VIAL INH SCH ×3 (02:22→10:08)
[2017-05-05 04:40] LABS: ABG BASE EXCESS 4.5 MMOL/L (-2.5-2.5); ABG HCO3 27 MMOL/L (23-27); ABG OXYGEN SATURATION 89 % (94-100); ABG PCO2 32 MMHG (35-45); ABG PH 7.54 (7.37-7.43); ABG PO2 58 MMHG (79-93); ABG TCO2 28.4 MMOL/L (21.0-31.0)
[2017-05-05 04:43] LABS: ALLENS TEST YES-POS; PATIENT TEMP 97.1
[2017-05-05 05:04] LABS: BASOPHILS % (AUTO) 0 % (0-10); EOSINOPHILS % (AUTO) 0 % (0-10); LYMPHOCYTES % (AUTO) 6 % (12-44); MEAN CORPUSCULAR HEMOGLOBIN 29 PG (25-34); MEAN CORPUSCULAR HGB CONC 32 G/DL (32-36); MEAN CORPUSCULAR VOLUME 91 FL (80-99); MEAN PLATELET VOLUME 10.4 FL (7.4-10.4); MONOCYTES # (AUTO) 0.8 X 10^3 (0.0-1.0); MONOCYTES % (AUTO) 5 % (0-12); NEUTROPHILS # (AUTO) 13.2 X 10^3 (1.8-7.8); NEUTROPHILS % (AUTO) 89 % (42-75); PLATELET COUNT 318 10^3/uL (130-400); RED BLOOD COUNT 3.02 10^6/uL (4.35-5.85); RED CELL DISTRIBUTION WIDTH 14.3 % (10.0-14.5); WHITE BLOOD COUNT 14.9 10^3/uL (4.3-11.0)
[2017-05-05 05:36] LABS: ANION GAP 8 MMOL/L (5-14); BLOOD UREA NITROGEN 43 MG/DL (7-18); BUN/CREATININE RATIO 68; CALCIUM 7.3 MG/DL (8.5-10.1); CARBON DIOXIDE 26 MMOL/L (21-32); CHLORIDE 119 MMOL/L (98-107); CREATININE SERUM 0.63 MG/DL (0.60-1.30); GFR ESTIMATED > 60; GLUCOSE 158 MG/DL (70-105); MAGNESIUM 2.8 MG/DL (1.8-2.4); PHOSPHORUS 3.3 MG/DL (2.3-4.7); POTASSIUM 3.9 MMOL/L (3.6-5.0); SODIUM 153 MMOL/L (135-145)
[2017-05-05] MEDS: MEROPENEM 1 GM/NS 100 ML IVPB IV SCH ×6 (06:03→22:09)
[2017-05-05] MEDS ORDERED: RT-ALBUTEROL SULF 2.5 MG/3 ML PRE-MIX VIAL ONE (06:32)
--- NOTE | 2017-05-05 06:33 | Pulmonary Progress Note ---
Exam Exam Vital Signs Date Time Temp Pulse Resp B/P (MAP) Pulse Ox O2 Delivery O2 Flow Rate FiO2 05/05/17 06:00 86 22 134/61 100 60.00 05/05/17 05:00 92 23 129/60 100 60.00 05/05/17 04:23 95 24 100 60 05/05/17 04:00 92 24 135/62 100 60.00 05/05/17 03:00 88 21 127/52 100 60.00 05/05/17 02:24 104 24 100 60 05/05/17 02:00 100 22 122/55 100 60.00 05/05/17 01:00 93 22 136/60 100 60.00 05/05/17 01:00 97 05/05/17 00:00 95 24 129/56 100 60.00 05/04/17 23:05 77 25 100 60 05/04/17 23:00 82 25 127/57 100 60.00 05/04/17 22:00 71 18 114/55 100 60.00 05/04/17 21:00 71 23 116/56 100 60.00 05/04/17 20:27 68 22 100 60 05/04/17 20:00 98.0 60.00 05/04/17 20:00 84 26 115/54 100 60.00 05/04/17 19:02 66 26 100 60 05/04/17 19:00 90 18 125/56 100 60.00 05/04/17 19:00 93 05/04/17 18:00 71 22 108/51 100 60.00 05/04/17 17:00 78 22 110/54 100 60.00 05/04/17 16:47 100 100 05/04/17 16:30 60.00 05/04/17 16:12 80 21 100 60 05/04/17 16:00 80 18 101/52 100 80.00 05/04/17 16:00 97.7 05/04/17 15:00 84 22 110/48 100 80.00 05/04/17 14:35 94 18 100 80 05/04/17 14:00 98 18 113/51 99 80.00 05/04/17 13:00 93 18 103/52 94 80.00 05/04/17 13:00 99 05/04/17 12:29 78 18 100 100 05/04/17 12:00 80.00 05/04/17 12:00 96.7 05/04/17 12:00 100 100 05/04/17 12:00 97 18 108/54 97 80.00 05/04/17 11:05 83/41 05/04/17 11:00 130 39 110/77 100 100.00 05/04/17 11:00 105 18 100 100 05/04/17 11:00 100.00 05/04/17 10:21 96 39 100 25.00 05/04/17 09:07 109 38 98 25.00 05/04/17 09:00 107 37 156/70 97 30.00 05/04/17 08:35 107 36 98 25.00 05/04/17 08:00 98 36 167/79 100 30.00 05/04/17 08:00 100.1 05/04/17 08:00 100 30 05/04/17 07:00 110 05/04/17 07:00 94 34 141/70 100 30.00 05/04/17 06:43 85 35 100 30.00 I & O 05/05/17 07:00 Intake Total 50 ml Output Total 1380 ml Balance -1330 ml General Appearance: No Apparent Distress, WD/WN, Other (pt is comfortable on vent ) HEENT: Normal ENT Inspection Neck: Limited Range of Motion Respiratory: Lungs Clear, Accessory Muscle Use, Other (increased respiratory rate) Cardiovascular: Irregularly Irregular Capillary Refill: Less Than 3 Seconds Gastrointestinal: soft, tenderness Extremity: Normal Capillary Refill Neurologic/Psychiatric: Alert, Oriented x3 Skin: Normal Color Lymphatic: No Adenopathy Results Lab Laboratory Tests 05/04/17 04:17 05/05/17 04:55 Assessment/Plan Assessment/Plan Acute respiratory failure since postop secondary to aspiration of bowel contents -Pt had to be reintubated yesterday -Pt is awake/alert - -continue morphine for pain control Acute peritonitis with severe sepsis secondary to colonic perforation s/p surgery -Continue Merrem Diflucan vancomycin. Flagyl - ASPIRATION PNA with GNR - PROBABLY ECOLI -continue current abx -bronchoscopy today secondary to mucous plugging Hypernatremia/hyperchloremia - Secondary to saline - -Start 250cc of free water per OG Q6 -IVF changed to D5W 75cc/hr Malnutrition -TF with pulmicare -- hold for bronch and connect OG to intermittent suction thrombocytopenia - improving -HIT Abx is negative -Arixtra Atelectasis, pulmonary edema, and mucous plugging on CT of chest -Add SVN Q4 Duoneb with Mucomyst TID -CPT per RT -monitor CXR Severe Deconditioning - pt is very weak -PT/OT Afib RVR- now converted back to sinus -Pt is on amio gtt hypothyroid -Pt is getting IV Synthroid -repeat TSH HX of SVT/AF -LABS AND CXR REVIEWED 233 30min spent with patient Clinical Quality Measures DVT/VTE Risk/Contraindication: Risk Factor Score Per Nursin RFS Level Per Nursing on Admit: 4+=Very High CHRISS ARTIS DO May 05, 2017 06:33
[2017-05-05] MEDS ORDERED: MIDAZOLAM 5 MG/5 ML (VERSED) VIAL ONE (07:19)
[2017-05-05] MEDS ORDERED: PROPOFOL DRIP (ICU) 100 ML IV SCH (07:30)
[2017-05-05] MEDS ORDERED: MIDAZOLAM 5 MG/5 ML (VERSED) VIAL IVP ONE (07:30)
--- NOTE | 2017-05-05 07:45 | Pulmonary Procedures ---
Pulmonary Procedures Date of Procedure Date of Service: May 05, 2017 Bronch Bronchoscopy with bronchoalveolar lavage (BAL), and washings Preop DX mucous plugging Postop DX: same Complications: none After informed consent obtained and formal time out pt was sedated using Versed and Diprivan. Bronchoscope was advanced through ET tube . An anatomical tour was undertaken down to the segmental bronchi bilaterally. No endobronchial lesions noted. Copious amounts of sputum was suctioned from all airways drew LLL using BAL and bronchial washings. Pt tolerated procedure well. No complications noted. Stat CXR is pending. CHRISS ARTIS DO May 05, 2017 07:45
[2017-05-05] MEDS ORDERED: NS IV 500 ML 500 ML ONE (08:23)
--- NOTE | 2017-05-05 08:41 | Diagnostic Imaging Report ---
INDICATION: Respiratory failure Portable chest 4:55 AM There is an ET tube projecting over the trachea. NG tube projects over the stomach. Right upper extremity PICC line tip projects over the SVC. There is some infiltrate present at the left medial lung base. There is minimal residual infiltrate in the right medial lung base. IMPRESSION: Bilateral medial basilar infiltrates greater on left than on the right but with interval improvement compared to previous day. Dictated by: Dictated on workstation # [id number]
[2017-05-05] MEDS: KCL 20 MEQ TAB (K-DUR) PO SCH (08:46)
[2017-05-05] MEDS: MAGNESIUM 1 GM/100 ML IVPB 100 ML IV SCH (08:46)
[2017-05-05] MEDS: POTASSIUM CL 10MEQ/50ML IVPB 50 ML IV SCH (08:46)
[2017-05-05] MEDS: AMIODARONE 200 MG (CORDARONE) TAB PO SCH (08:47)
[2017-05-05] MEDS: PROPOFOL DRIP (ICU) 100 ML IV SCH ×2 (08:47→11:21)
--- NOTE | 2017-05-05 09:01 | Diagnostic Imaging Report ---
INDICATION: Respiratory failure. EXAMINATION: Portable chest at 8 AM. FINDINGS: The ET tube projects over the trachea. The NG tube projects over the stomach. The right upper extremity PICC line tip projects over the SVC. The heart size and pulmonary vascularity are normal. The lungs are clear. There are no appreciable effusions or pneumothoraces. IMPRESSION: No acute abnormalities in the chest. Dictated by: Dictated on workstation # [id number]
--- NOTE | 2017-05-05 09:07 | Physical Therapy Daily Note ---
PT Daily Note-Current Subjective Patient is on vent. Pain Numeric Pain Scale: 0-No Pain Location: No Pain Reported Mental Status Patient Orientation: Unresponsive (sedated) Attachments: Oxygen, Ventilator, Reynolds Catheter, IV Transfers Functional [place] Measure 0=Not Assessed/NA 4=Minimal Assistance 1=Total Assistance 5=Supervision or Setup 2=Maximal Assistance 6=Modified [place] 3=Moderate Assistance 7=Complete IndependenceIRFPAI Quality Coding Scale 6 Independent with activity with or without an assistive device 5 Patient requires set up or clean up by helper. Patient completes activity by themselves 4 Supervision or touching assist (CGA). [place] provide cues , steadying assist 3 The helper provides less than half the effort to complete the activity 2 The helper provides more than half the effort to complete the activity 1 Dependent. The helper does all the effort to complete an activity 7 Patient refused to complete or attempt activity 9 The patient did not perform the activity before the current illness or injury 88 Not attempted due to Medical conditions or safety concerns Exercises Supine Ex: Ankle pumps, Heel Slides, Straight leg raise, Hip abd/add Supine Reps: 10 Assessment Patient reintubated yesterday. PROM bilateral LE performed. PT Detention Goals Machine Molder Squeeze Goals PT Machine Molder Squeeze Goals Time Frame: May 13, 2017 Transfers (B,C,W/C) (FIM): 4 Gait (FIM): 2 Gait distance (FIM): 1=up to 49 ft Gait Assistive Device: FWW PT Plan Treatment/Plan Treatment Plan: Continue Plan of Care Treatment Plan: Bed Mobility, Education, Functional Activity Carlos A, Functional Strength, Gait, Safety, Therapeutic Exercise, Transfers Treatment Duration: May 13, 2017 Visits Per Week: 5-11 Time/GCodes Time In: 755 Time Out: 805 Total Billed Treatment Time: 10 Total Billed Treatment 1 visit EX 10 min JOSE CARUSO PT May 05, 2017 09:07
[2017-05-05] MEDS: DEXMEDETOMIDINE INJECTION 200 MCG in NS (IVPB) 50 ML IV SCH ×2 (09:16→20:40)
--- NOTE | 2017-05-05 09:16 | Progress Note-Standard ---
Standard Progress Note Progress Notes/Assess & Plan Date Seen by Provider: May 04, 2017 Time Seen by Provider: 13:49 Progress/Assessment & Plan 04/26/17:septic with severe leukopenia. Very poor urine output. On dual vasopressors. Sinus tachycardia. Outcome poor with expected mortality. Central venous pressure around 12. We'll continue to provide fluid resuscitation and maintain vasopressors for now. 04/27/17:continues to require vasopressor support. Urine output reasonable. Creatinine slightly elevated. Ventilation and oxygenation stable. Will place a wound VAC tomorrow. Continue supportive abdomen. Enteral nutrition in 24- 48 hours. DVT prophylaxis with low molecular weight heparin, renally adjusted dose 04/28/17:off the vasopressors. Renal function reasonable.NG output more than 1 L and therefore tube feeding will be delayed.electrolytes satisfactory.we'll continue current management. 04/29/17:Improving. Would facilitate diuresis before embarking on extubation. Intra-abdominal abscesses to be looked for by next week. L femoral arterial line satisfactory with no distal ischemia. Nutritional support in 24-48 hours. 04/30/17:slight change in her condition with decreased urine output and leukocytosis. Abdominal abscess in evolution very likely the culprit. More opacification of the right lung. We will try enteral feeding. Continue antibiotics 05/01/17 Diuresis in progress. Pressure mattress appropriate to prevent skin breakdown. Fascia intact. Tolerating tube feeds. Vent weaning over terrie next 24- 48 hours. HIT antibodies negative 05/04/17: Reintubated. Anasarca improved. Fascia intact. Intra-abdominal abscesses to be expected. CT scan in 48 hours. Tracheostomy discussed with the family and planned for this week 05/05/17:CONTINUES TO IMPROVE. pOOR MUSCLE STRENGTH. tRACHEOSTOMY IN [address] SCAN TOMORROW MORNING. Final Diagnosis FECAL PERITONITIS DUE TO SIGMOID PERFORATION. MACY TALAVERA MD May 05, 2017 09:16
--- NOTE | 2017-05-05 09:17 | Anesthesia-Procedure Note ---
Procedure Start/Stop Time Date of Procedure: May 05, 2017 Start Time: 08:43 Referring Physician: Hernandez Stop Time: 08:52 Procedures/Interventions Arterial Line Catheter: 20G Type: Radial Location: Right Procedure: prepped, draped in sterile fashion, 1% lidocaine used to numb region , good wave-form was obtained, patient tolerated procedure well, post procedure area cleaned, post procedure dressing applied RYANNE DOSHI DO May 05, 2017 09:16
[2017-05-05] MEDS: LEVOTHYROXINE 100 MCG INJ (SYNTHROID) VIAL IV SCH (09:24)
[2017-05-05] MEDS: FUROSEMIDE 40 MG/4 ML INJ (LASIX) IVP SCH (09:29)
[2017-05-05] MEDS: PANTOPRAZOLE 40 MG/10 ML (PROTONIX) VIAL IVP SCH (09:32)
[2017-05-05] MEDS: FLUCONAZOLE 100 MG/50 ML 50 ML IV SCH (09:32)
[2017-05-05] MEDS: morphine INJ 4 MG/ML 1 ML (VIAL/SYRINGE) IVP PRN (10:45)
[2017-05-05 10:48] LABS: ABG BASE EXCESS 3.8 MMOL/L (-2.5-2.5); ABG HCO3 27 MMOL/L (23-27); ABG OXYGEN SATURATION 96 % (94-100); ABG PCO2 39 MMHG (35-45); ABG PH 7.46 (7.37-7.43); ABG PO2 77 MMHG (79-93); ABG TCO2 28.6 MMOL/L (21.0-31.0)
[2017-05-05 10:49] LABS: ALLENS TEST YES-POS
[2017-05-05 10:50] LABS: PATIENT TEMP 99.6
[2017-05-05] MEDS: DILTIAZEM DRIP 100 MG in SODIUM CHLORIDE (ADD-VANTAGE) 100 ML IV SCH (10:57)
--- NOTE | 2017-05-05 13:24 | Progress Note-Hospitalist ---
Standard Progress Note Progress Notes/Assess & Plan Date Seen 05/05/17 Time Seen by Provider: 12:55 Diagnosis Assessment: Acute peritonitis from colonic perforation with impacted stool with history of severe chronic constipation status post diverting colostomy POD # 1 Aspiration of bowel contents during intubation for surgery with ventilator- dependent respiratory failure currently History of SVT/AF status post attempted ablation an unsuccessful maintained on Rythmol by Dr. Kings Womack History of hypertension Hypothyroidism Leukopenia due to sepsis Hypokalemia Assess & Plan/Chief Complaint The patient is a 61-year-old white female admitted on 04/26 with severe abdominal pain to the emergency room. She was found to have a colon perforation with a considerable amount of formed feces balls contaminating the peritoneal cavity. In the perioperative time frame. She apparently also aspirated bowel contents. She has been on the ventilator since that time. An attempt was made at weaning yesterday however she began to retain carbon dioxide immediately and required replacement on the ventilator. At the time of reevaluation ablation her PCO2 was 76 and has now returned to 32. Most recent ABG shows a pH of 7.46 PCO2 of 39 PO2 of 77 on 40 percent FiO2. Physical exam: She appeared to be sleeping when I entered the room, but responded to voice and opened her eyes and smiled. Lungs showed clear breath sounds. CV was regular. Abdomen revealed her surgical wounds to be healing nicely. Bowel sounds were not heard. Extremities showed a rather doughy edema of the dorsal hands and feet. Lab: WBCs have decreased from 18,500 to14,900, hemoglobin has fallen from 10.5- 8.7. Sodium was 153 and chloride 119. Impression: Recovering from sepsis as a consequence of bowel perforation and stool soiling. 2.respiratory failure at least abetted by apparent aspiration of bowel contents. 3.generalized edema as a consequence of sepsis and malnutrition with resulting hypoalbuminemia Plan: Adjustment of IV fluids to address the hypernatremia/a chloremia Labs Laboratory Tests 05/04/17 04:17 05/05/17 04:55 SAM FULTON MD May 05, 2017 13:24
[2017-05-05] MEDS: RT-ALBUTEROL SULF 2.5 MG/3 ML PRE-MIX VIAL IH SCH ×2 (14:33→22:02)
[2017-05-05] MEDS: aCETylcysteine 20% (MUCOMYST) 30ML SOLN VIAL INH SCH ×2 (14:33→22:03)
--- NOTE | 2017-05-05 15:03 | Occupational Ther Daily Note ---
OT Current Status-Daily Note Subjective Pt seen in room, awake and able to participate in OT. No pain mentioned. Appearance Eyes open and responding Mental Status/Objective Functional [place] Measure 0=Not Assessed/NA 4=Minimal Assistance 1=Total Assistance 5=Supervision or Setup 2=Maximal Assistance 6=Modified [place] 3=Moderate Assistance 7=Complete [place] Other Treatment Pt's eyes were open on and off during tx and she responded to one step directions for UE ROM, although responses were slightly delayed. She did bilat AAROM to shoulders, elbows, wrists and hands. She was able to "make a fist" x 10 reps each hand. Cont with edema bilat hands but it seems to be decreased. Had glove on L hand but R glove was removed for IV start. encouraged to have her squeeze his hands as she is awake to help continue to mobilize edema. Pt left up in bed, all needs met. Education OT Patient Education: Exercise program, Instructions to caregiver, Progress toward Goal/Update tx plan, Purpose of tx/functional activities Teaching Recipient: Patient, Family Teaching Methods: Demonstration, Discussion Response to Teaching: Verbalize Understanding OT Short Term Goals Short Term Goals 1=Demonstrate adherence to instructed precautions during ADL tasks. 2=Patient will verbalize/demonstrate understanding of assistive devices/ modifications for ADL. 3=Patient will improve strength/tolerance for activity to enable patient to perform ADL's. 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 - Increase functional use UEs - Increase participation in basic self care as pt status changes Additional Goals: 3-ImproveStrength/Carlos A 1=Demonstrate adherence to instructed precautions during ADL tasks. 2=Patient will verbalize/demonstrate understanding of assistive devices/ modifications for ADL. 3=Patient will improve strength/tolerance for activity to enable patient to perform ADL's. OT Education/Plan Problem List/Assessment Pt would benefit from skilled OT to help increase functional use of bilat UEs and independence in basic self care to decrease caregiver burden and assist with discharge planning Discharge Recommendations Plan/Recommendations: Continue POC Treatment Plan/Plan of Care Patient would benefit from OT for education, treatment and training to promote independence in ADL's, mobility, safety and/or upper extremity function for ADL' s. Plan of Care: ADL Retraining (when appropriate), UE Funct Exercise/Act, UE Neuromus Re-Ed/Coord Treatment Duration: May 18, 2017 Visits Per Week: 5 Agreement: No (pt unable to participate in decision making. No family present) Rehab Potential: Guarded Time/GCodes Start Time: 11:00 Stop Time: 11:10 Total Time Billed (hr/min): 10 Billed Treatment Time visit, 10 minutes exercise WENDY WATKINS OT May 05, 2017 15:03
[2017-05-05] MEDS: FONDAPARINUX 2.5 MG (ARIXTRA) SYR NON-FORMULARY SQ SCH (17:03)
[2017-05-05] MEDS: D5W 1000 ML IV SOLUTION 1,000 ML IV SCH (19:33)
[2017-05-06] VITALS (33 sets, daily range): BP systolic 97–169; BP diastolic 33–62
[2017-05-06] MEDS: metroNIDAZOLE 500MG/100ML IVPB 100 ML IV SCH ×3 (01:22→17:20)
[2017-05-06] MEDS: meTOprolol 5 MG/5 ML (LOPRESSOR) VIAL IV SCH ×8 (01:26→23:21)
[2017-05-06] MEDS: morphine INJ 4 MG/ML 1 ML (VIAL/SYRINGE) IVP PRN ×4 (01:26→23:21)
[2017-05-06] MEDS: RT-ALBUTEROL/IPRATROPIUM 3 ML (DUONEB) VIAL INH SCH ×3 (02:07→18:35)
[2017-05-06 04:26] LABS: BASOPHILS % (AUTO) 0 % (0-10); EOSINOPHILS % (AUTO) 0 % (0-10); LYMPHOCYTES # (AUTO) 0.9 X 10^3 (1.0-4.0); LYMPHOCYTES % (AUTO) 6 % (12-44); MEAN CORPUSCULAR HEMOGLOBIN 28 PG (25-34); MEAN CORPUSCULAR HGB CONC 31 G/DL (32-36); MEAN CORPUSCULAR VOLUME 91 FL (80-99); MEAN PLATELET VOLUME 10.1 FL (7.4-10.4); MONOCYTES # (AUTO) 0.6 X 10^3 (0.0-1.0); MONOCYTES % (AUTO) 4 % (0-12); NEUTROPHILS # (AUTO) 13.8 X 10^3 (1.8-7.8); NEUTROPHILS % (AUTO) 90 % (42-75); PLATELET COUNT 378 10^3/uL (130-400); RED BLOOD COUNT 3.06 10^6/uL (4.35-5.85); RED CELL DISTRIBUTION WIDTH 14.3 % (10.0-14.5); WHITE BLOOD COUNT 15.3 10^3/uL (4.3-11.0)
[2017-05-06 04:28] LABS: ABG BASE EXCESS 1.5 MMOL/L (-2.5-2.5); ABG HCO3 25 MMOL/L (23-27); ABG OXYGEN SATURATION 93 % (94-100); ABG PCO2 39 MMHG (35-45); ABG PH 7.43 (7.37-7.43); ABG PO2 64 MMHG (79-93); ABG TCO2 26.6 MMOL/L (21.0-31.0)
[2017-05-06 04:30] LABS: ALLENS TEST YES-POS; PATIENT TEMP 98.4
[2017-05-06 04:52] LABS: ANION GAP 10 MMOL/L (5-14); BLOOD UREA NITROGEN 31 MG/DL (7-18); BUN/CREATININE RATIO 57; CALCIUM 7.4 MG/DL (8.5-10.1); CARBON DIOXIDE 23 MMOL/L (21-32); CHLORIDE 120 MMOL/L (98-107); CREATININE SERUM 0.54 MG/DL (0.60-1.30); GFR ESTIMATED > 60; GLUCOSE 164 MG/DL (70-105); MAGNESIUM 2.4 MG/DL (1.8-2.4); PHOSPHORUS 2.6 MG/DL (2.3-4.7); POTASSIUM 3.3 MMOL/L (3.6-5.0); SODIUM 153 MMOL/L (135-145)
[2017-05-06] MEDS: PROPOFOL DRIP (ICU) 100 ML IV SCH ×3 (05:30→14:25)
[2017-05-06] MEDS: MAGNESIUM 1 GM/100 ML IVPB 100 ML IV SCH (05:31)
[2017-05-06] MEDS: KCL 20 MEQ TAB (K-DUR) PO SCH (05:31)
[2017-05-06] MEDS: POTASSIUM CL 10MEQ/50ML IVPB 50 ML IV SCH ×5 (05:31→14:28)
[2017-05-06] MEDS: MEROPENEM 1 GM/NS 100 ML IVPB IV SCH ×2 (05:44)
[2017-05-06] MEDS: METOCLOPRAMIDE INJ 10 MG/2 ML (REGLAN) IVP SCH ×4 (05:44→23:21)
[2017-05-06] MEDS: aCETylcysteine 20% (MUCOMYST) 30ML SOLN VIAL INH SCH ×3 (06:10→22:36)
[2017-05-06] MEDS: RT-ALBUTEROL SULF 2.5 MG/3 ML PRE-MIX VIAL IH SCH ×3 (06:10→22:36)
--- NOTE | 2017-05-06 06:45 | Pulmonary Progress Note ---
Subjective Subjective/Events-last exam Pt is awake and appears uncomfortable. Exam Exam Vital Signs Date Time Temp Pulse Resp B/P (MAP) Pulse Ox O2 Delivery O2 Flow Rate FiO2 05/06/17 06:10 89 27 100 30 05/06/17 06:00 87 24 135/60 100 30.00 05/06/17 05:46 89 05/06/17 05:00 94 24 139/62 100 30.00 05/06/17 04:00 100 30 05/06/17 04:00 98.1 30.00 05/06/17 04:00 86 23 133/61 100 30.00 05/06/17 03:57 86 24 100 30 05/06/17 03:00 90 23 137/56 100 05/06/17 02:08 73 21 100 30 05/06/17 02:00 75 23 130/56 100 30.00 05/06/17 01:28 99.4 30.00 05/06/17 01:00 95 05/06/17 01:00 93 28 141/59 100 30.00 05/06/17 00:07 100.0 30.00 05/06/17 00:01 93 26 100 30 05/06/17 00:00 100 30 05/06/17 00:00 96 28 121/55 100 30.00 05/05/17 23:00 82 22 107/55 100 30.00 05/05/17 22:03 77 26 100 30 05/05/17 22:00 71 24 128/60 100 30.00 05/05/17 21:00 68 25 126/54 100 30.00 05/05/17 20:00 98.6 05/05/17 20:00 87 26 135/54 100 30.00 05/05/17 20:00 100 30 05/05/17 19:47 80 27 100 30 05/05/17 19:00 80 05/05/17 19:00 69 29 129/62 100 30.00 05/05/17 18:00 79 28 141/55 100 30.00 05/05/17 17:53 88 28 100 30 05/05/17 17:00 92 25 135/82 100 30.00 05/05/17 16:00 100 30 05/05/17 16:00 103 31 142/64 100 30.00 05/05/17 15:58 101 36 100 30 05/05/17 15:00 88 29 149/62 100 30.00 05/05/17 14:33 74 29 100 30 05/05/17 14:00 84 25 131/53 100 30.00 05/05/17 13:00 88 26 146/66 100 30.00 05/05/17 13:00 80 05/05/17 12:09 85 27 100 30 05/05/17 12:05 100 30 05/05/17 12:00 83 25 132/61 100 40.00 05/05/17 11:21 99.6 92 26 216/51 100 Mechanical Ventilator 40.00 05/05/17 11:00 84 27 146/70 100 40.00 05/05/17 10:15 99.6 05/05/17 10:08 74 22 100 40 05/05/17 10:00 76 24 133/61 100 40.00 05/05/17 09:00 94 26 138/65 100 40.00 05/05/17 08:30 99.4 05/05/17 08:15 100 40 05/05/17 08:00 97 24 137/62 100 40.00 05/05/17 07:56 18 05/05/17 07:52 96 22 100 40 05/05/17 07:30 99.2 84 25 122/59 100 05/05/17 07:00 92 05/05/17 07:00 93 26 122/59 100 40.00 05/05/17 06:48 40.00 I & O 05/06/17 07:00 Intake Total 3290 ml Output Total 3820 ml Balance -530 ml General Appearance: WD/WN, Mild Distress, Other (pt is comfortable on vent ) HEENT: Normal ENT Inspection Neck: Limited Range of Motion Respiratory: Lungs Clear, Accessory Muscle Use, Other (increased respiratory rate) Cardiovascular: Irregularly Irregular Capillary Refill: Less Than 3 Seconds Gastrointestinal: soft, tenderness Extremity: Normal Capillary Refill Neurologic/Psychiatric: Alert, Oriented x3 Skin: Normal Color Lymphatic: No Adenopathy Results Lab Laboratory Tests 05/05/17 04:55 05/06/17 04:20 Assessment/Plan Assessment/Plan Acute respiratory failure since postop secondary to aspiration of bowel contents -- sputum is growing MDR Acinetobacter -Isolation -change Abx to zosyn, gent, -Pt is awake/alert - -continue morphine for pain control Acute peritonitis with severe sepsis secondary to colonic perforation s/p surgery -plan is for tracheostomy and PEG tube tomorrow - ASPIRATION PNA with MDR Acinetobacter -S/P bronchoscopy mucous plugging Hypernatremia/hyperchloremia - Secondary to saline - - 250cc of free water per OG Q6 -IVF changed to D5W and 20 KCL 75cc/hr Malnutrition -TF with pulmicare -- thrombocytopenia - improving -HIT Abx is negative -Arixtra Atelectasis, pulmonary edema, and mucous plugging on CT of chest -Add SVN Q4 Duoneb with Mucomyst TID -CPT per RT -monitor CXR Severe Deconditioning - pt is very weak -PT/OT Afib RVR- now converted back to sinus -cardiology following following Runs of vtach -cardiology following and aware hypothyroid -Pt is getting IV Synthroid -repeat TSH HX of SVT/AF -LABS AND CXR REVIEWED 233 30min spent with patient Clinical Quality Measures DVT/VTE Risk/Contraindication: Risk Factor Score Per Nursin RFS Level Per Nursing on Admit: 4+=Very High CHRISS ARTIS DO May 06, 2017 06:45
[2017-05-06] MEDS ORDERED: fentaNYL PCA 300 MCG/30 ML VIAL IV PRN (07:00)
[2017-05-06] MEDS: POTASSIUM CHLORIDE IV SCH ×2 (07:12→19:58)
[2017-05-06] MEDS: D5W IV SCH ×2 (07:12→19:58)
[2017-05-06] MEDS ORDERED: LIDOCAINE 1% INJ 20 ML (XYLOCAINE) VIAL ONE (07:21)
[2017-05-06] MEDS ORDERED: IOHEXOL 350 MG/ML 100 ML (OMNIPAQUE 350) VIAL IV ONE (07:30)
[2017-05-06] MEDS ORDERED: NS 100 ML (IVPB) BAG IV ONE (07:30)
[2017-05-06] MEDS ORDERED: GENTAMICIN INJ (FOR COMPOUND) 0.1 MG in NS (IVPB) 100 ML IV SCH (08:00)
[2017-05-06] MEDS: DILTIAZEM DRIP 100 MG in SODIUM CHLORIDE (ADD-VANTAGE) 100 ML IV SCH (08:00)
[2017-05-06] MEDS ORDERED: PIPERACILLIN SODIUM/TAZOBACTAM 4.5 GM in NS (IVPB) 100 ML IV NR (09:00)
[2017-05-06] MEDS: DEXMEDETOMIDINE INJECTION 200 MCG in NS (IVPB) 50 ML IV SCH ×2 (09:25→17:51)
--- NOTE | 2017-05-06 09:32 | Diagnostic Imaging Report ---
INDICATION: Respiratory failure. TECHNIQUE: Single view chest at 5:20 AM. CORRELATION STUDY: 05/05/2017. FINDINGS: An endotracheal tube, gastric tube, and right-sided central line all remain in place. The heart size remains enlarged with the vasculature slightly increased from the prior study. Scattered areas of infiltrate versus edema are noted in the perihilar region and lung bases, left greater than right. The left diaphragm is obscured with likely a left pleural effusion. S-type thoracolumbar scoliotic curvature is present. IMPRESSION: Overall, there appears to be increasing vascular congestion from the prior study. Scattered areas of edema versus infiltrate are present, particularly in the left lung base. Dictated by: Dictated on workstation # [id number]
--- NOTE | 2017-05-06 09:44 | Pre-Op Note & Conscious Sedat ---
Pre-Operative Progress Note H&P Reviewed The H&P was reviewed, patient examined and no changes noted. Date H&P Reviewed: May 06, 2017 Time H&P Reviewed: 07:30 Pre-Op Diagnosis: sepsis, abdominal abscesses Conscious Sedation Pre-Proced Time Reviewed: 20:08 ASA Class: 3 Airway Mallampati Classification: (kiana appropriate class) I. II. III, IV Lungs Heart ASA score ASA 1: a normal healthy patient ASA 2: a patient with a mild systemic disease (mid diabetes, controlled hypertension, obesity ASA 3: a patient with a severe systemic disease that limits activity (angina , COPD, prior Myocardial infarction) ASA 4: a patient with an incapacitating disease that is a constant threat to life (CHF, renal failure) ASA 5: a moribund patient not expected to survive 24 hrs. (ruptured aneurysm) ASA 6: a declared brain patient whose organs are being harvested. For emergent operations, add the letter E after the classification Grade 4 Sedation Plan: Analgesia Note The patient is an appropriate candidate to undergo the planned procedure, sedation, and anesthesia. The patient immediately re-assessed prior to indication. MACY MOLINA MD May 06, 2017 09:44
[2017-05-06] MEDS: AMIODARONE 200 MG (CORDARONE) TAB PO SCH (10:06)
[2017-05-06] MEDS: PANTOPRAZOLE 40 MG/10 ML (PROTONIX) VIAL IVP SCH (10:06)
[2017-05-06] MEDS: LEVOTHYROXINE 100 MCG INJ (SYNTHROID) VIAL IV SCH (10:08)
--- NOTE | 2017-05-06 10:34 | Diagnostic Imaging Report ---
PROCEDURE: CT chest, abdomen, and pelvis with contrast. TECHNIQUE: Multiple contiguous axial images were obtained through the chest, abdomen, and pelvis after the administration of intravenous contrast. INDICATION: Sepsis, status post colonic perforation with a fluid collection suggestive of abscesses. COMPARISON: 05/02/2017. FINDINGS: CT CHEST: There is an ET tube in good position. The NG tube is in the stomach. There is a subclavian central line on the right side with the tip at the SVC level. There is bilateral lower lobe consolidation, favored to be related to atelectasis. Small pleural effusions are seen bilaterally. Focal consolidation in the dependent area of the right upper lobe is seen. This could also relate to atelectasis. Superimposed infection in the areas of atelectasis cannot be ruled out. The heart size is slightly enlarged. No pericardial effusion. There is no mediastinal mass. No significantly enlarged axillary, hilar, or mediastinal lymph nodes. The osseous structures demonstrate thoracolumbar scoliosis. CT ABDOMEN AND PELVIS: There is a surgical drain in the anterior aspect of the abdomen directed cephalad towards the right upper quadrant anterior to the liver and there is another drain in the anterior aspect of the pelvis. There is a colostomy in the left flank region. There is significant diffuse edema of the fatty planes in the abdomen and bowel wall thickening in a diffuse fashion. This is presumably related to inflammatory or infectious enteritis/colitis or secondary to peritonitis. There are four fluid collections with one demonstrating enhancing gordillo abutting the greater curvature of the stomach in the fundus area and wrapping around the spleen. The maximum axial dimensions are 9.7 x 9.7 x 8.5 cm. A second collection is seen in the right subhepatic region with mild wall enhancement suggested. This collection measures 8 x 4.2 x 7.5 cm. There is a third collection in the pelvis anterior to the rectum measuring 5.1 x 7 x 3.9 cm. In addition, there is a central mesenteric fluid collection measuring 6.2 x 2.6 x 6.1 cm. The liver, spleen, pancreas, adrenals, and kidneys demonstrate no significant abnormalities. There is no hydronephrosis seen. There is generalized subcutaneous edema in the abdomen and pelvis. The osseous structures demonstrate scoliosis and prominent degenerative changes in the lumbar spine. IMPRESSION: CT CHEST: 1. Relatively large predominantly lower lobe areas of consolidation, likely related to atelectasis with or without superimposed pneumonia. 2. Small pleural effusions. CT ABDOMEN AND PELVIS: There are four fluid collections which may relate to abscesses located in the left subphrenic, right subhepatic, small bowel mesentery, and in the pelvis. The findings were discussed with Dr. Ng at the time of dictation. Dictated by: Dictated on workstation # [id number]
--- NOTE | 2017-05-06 11:01 | Diagnostic Imaging Report ---
EXAMINATION: CT-guided drain placement. Abdomen left subphrenic. INDICATION: Left subphrenic fluid collection suggestive of abscess. The patient's vital signs, cardiac rhythm, and pulse oximetry with observed throughout the procedure by qualified nursing personnel. Sedation/medications: Propofol for deep sedation is continued during the procedure. In addition 2 mg of morphine was administered IV. Deep sedation for 45 minutes is utilized during the procedure. The patient is already intubated. CONSENT: Informed consent was obtained from the patient. The risks, benefits, potential complications and alternatives were reviewed and all questions answered to the patient's satisfaction. FINDINGS: Cloudy red tinged fluid obtained PROCEDURE: After maximal sterile barrier preparation and draping, 1% lidocaine was utilized for local anesthesia. With the patient in supine position, anterolateral intercostal approach was selected. A 19-gauge Yueh sheathed needle was introduced utilizing CT guidance into the left subphrenic abscess. CT images confirm appropriate positioning. After standard over a guidewire exchange technique and after serial dilatation, a 12 [place] drain is placed and distal loop formed in the collection. A 20 ml of cloudy red tinged Fluid is aspirated and sent to microbiology. The drainage catheter is connected to suction type draining bag. The patient tolerated the procedure well with no immediate complications. IMPRESSION: Successful CT-guided, 12 [place], drain placement in left subphrenic abscess. Dictated by: Dictated on workstation # [id number]
[2017-05-06] MEDS: FUROSEMIDE 40 MG/4 ML INJ (LASIX) IVP SCH (11:12)
[2017-05-06] MEDS: GENTAMICIN IV SCH (11:13)
[2017-05-06] MEDS: NS IV SCH (11:13)
--- NOTE | 2017-05-06 11:18 | Diagnostic Imaging Report ---
EXAMINATION: Procedure one: CT-guided drain placement. Abdomen-right subphrenic abscess. Procedure 2: CT-guided drain placement. Pelvis abscess. INDICATION: Multiple intra-abdominal and pelvic abscesses. The patient's vital signs, cardiac rhythm, and pulse oximetry with observed throughout the procedure by qualified nursing personnel. Sedation/medications: IV propofol for deep sedation was continued during the procedure for from 45 minutes. This was started in the ICU for intubation. In addition 2 mg of morphine IV was administered. CONSENT: Informed consent was obtained from the patient. The risks, benefits, potential complications and alternatives were reviewed and all questions answered to the patient's satisfaction. FINDINGS: During this procedure , we addressed the right subhepatic and the deep pelvic abscesses. PROCEDURE: After maximal sterile barrier preparation and draping, 1% lidocaine was utilized for local anesthesia. Procedure one: With the patient in left side down position, right lateral intercostal approach was selected. A 19-gauge Yueh sheathed needle was introduced utilizing CT guidance into the right hepatic abscess. CT images confirm appropriate positioning. After standard over a guidewire exchange technique and after serial dilatation, a 12 Greek drain is placed and distal loop formed in the collection. A 20 ml of cloudy yellow relatively thick fluid is aspirated and sent to microbiology. The drainage catheter is connected to suction type draining bag. The patient tolerated the procedure well with no immediate complications. Procedure 2: Then attention was turned into the pelvic abscess. After maximal sterile barrier preparation and draping, 1% lidocaine was utilized for local anesthesia. With the patient in left side down position, right transgluteal approach was selected. A 19-gauge Yueh sheathed needle was introduced utilizing CT guidance into the deep pelvic abscess. CT images confirm appropriate positioning. After standard over a guidewire exchange technique and after serial dilatation, a 12 Greek drain is placed and distal loop formed in the collection. A 20 ml of cloudy yellow fluid is aspirated and sent to microbiology. The drainage catheter is connected to suction type draining bag. The patient tolerated the procedure well with no immediate complications. IMPRESSION: 1. Successful CT-guided, 12 Greek, drain placement in right subhepatic abscess. 2. Successful CT-guided, 12 Greek, right transgluteal drain placement in pelvic abscess. Dictated by: Dictated on workstation # [id number]
--- NOTE | 2017-05-06 11:20 | Occupational Ther Daily Note ---
OT Current Status-Daily Note Subjective RN present in room, states pt had a procedure this morning, but is okay for UE ROM. Pt remains intubated and sedated. Does not open eyes or respond to therapist during session. Mental Status/Objective Functional [place] Measure 0=Not Assessed/NA 4=Minimal Assistance 1=Total Assistance 5=Supervision or Setup 2=Maximal Assistance 6=Modified [place] 3=Moderate Assistance 7=Complete [place] Other Treatment PROM completed bilateral UE x10 reps. Brace in place on right wrist so no ROM at this joint. RN states brace may be to protect art line. Pt does not attempt to assist with exercises. No restrictions noted. No nonverbal indications of pain during exercises. Pt in bed with bilateral soft wrist restraints in place after session. OT Short Term Goals Short Term Goals 1=Demonstrate adherence to instructed precautions during ADL tasks. 2=Patient will verbalize/demonstrate understanding of assistive devices/ modifications for ADL. 3=Patient will improve strength/tolerance for activity to enable patient to perform ADL's. OT Skilled Nursing Goals Skilled Nursing Goals Time Frame: May 18, 2017 - Decrease edema to allow functional use bilat UEs. - Increase functional use UEs - Increase participation in basic self care as pt status changes Additional Goals: 3-ImproveStrength/Carlos A 1=Demonstrate adherence to instructed precautions during ADL tasks. 2=Patient will verbalize/demonstrate understanding of assistive devices/ modifications for ADL. 3=Patient will improve strength/tolerance for activity to enable patient to perform ADL's. OT Education/Plan Problem List/Assessment Pt would benefit from skilled OT to help increase functional use of bilat UEs and independence in basic self care to decrease caregiver burden and assist with discharge planning Discharge Recommendations Plan/Recommendations: Continue POC Treatment Plan/Plan of Care Patient would benefit from OT for education, treatment and training to promote independence in ADL's, mobility, safety and/or upper extremity function for ADL' s. Plan of Care: ADL Retraining (when appropriate), UE Funct Exercise/Act, UE Neuromus Re-Ed/Coord Treatment Duration: May 18, 2017 Visits Per Week: 5 Agreement: No (pt unable to participate in decision making. No family present) Rehab Potential: Guarded Time/GCodes Start Time: 10:20 Stop Time: 10:31 Total Time Billed (hr/min): 11 Billed Treatment Time 1 visit, EX(11minutes) EHSAN,HUMAIRA L OT May 06, 2017 11:20
[2017-05-06] MEDS: FLUCONAZOLE 100 MG/50 ML 50 ML IV SCH (12:35)
--- NOTE | 2017-05-06 13:54 | Progress Note-Hospitalist ---
Standard Progress Note Progress Notes/Assess & Plan Date Seen 05/06/17 Time Seen by Provider: 13:25 Diagnosis Assessment: Acute peritonitis from colonic perforation with impacted stool with history of severe chronic constipation status post diverting colostomy POD # 1 Aspiration of bowel contents during intubation for surgery with ventilator- dependent respiratory failure currently History of SVT/AF status post attempted ablation an unsuccessful maintained on Rythmol by Dr. Ku cardiology [place] History of hypertension Hypothyroidism Leukopenia due to sepsis Hypokalemia Assess & Plan/Chief Complaint The patient remains on the ventilator and is sedated. She had an abdominal- pelvic CT scan this morning. Four areas of the fluid collection were noted 1 left subphrenic 2 right subhepatic, 3 small bowel mesentery and for pelvis these were then drained with percutaneous placement under CT guidance. Bacteriology will be pending. Physical exam: There is some dullness to auscultation in the lung bases. CV is regular. Abdomen reveals multiple drains and was not palpated. Hands and feet remain puffy. Impression: Status post colon perforation and operative intervention. 2.prolonged respiratory insufficiency. 3.multiple abdominal abscesses with percutaneous drainage today. 4.hypoalbuminemia. 5.hyper natremia and chloremia. Plan: Await bacteriology and adjustment antibiotics as appropriate. Continue other present measures Labs Laboratory Tests 05/05/17 04:55 05/06/17 04:20 SAM FULTON MD May 06, 2017 13:54
[2017-05-06] MEDS ORDERED: ENOXAPARIN 30 MG/0.3 ML (LOVENOX) SYR SC SCH (14:00)
--- NOTE | 2017-05-06 14:18 | Diagnostic Imaging Report ---
Portable semi-upright radiograph of the chest. INDICATION: PICC line placement. FINDINGS: The left PICC line now terminates at the SVC level. Right PICC line is again noted without change. ET tube and NG tube are also unchanged. Multiple abdominal drains are also seen. There are bibasilar infiltrates or atelectasis. The heart size is mildly enlarged. There is a small left effusion suggested. No pneumothorax. IMPRESSION: Bibasilar atelectasis or infiltrates. Cardiomegaly. Dictated by: Dictated on workstation # [id number]
--- NOTE | 2017-05-06 14:20 | Diagnostic Imaging Report ---
EXAMINATION: Portable semiupright AP view of the chest. INDICATION: PICC line placement. FINDINGS: There is a left PICC line in place and courses through the left brachiocephalic vein and then is directed cephalad towards the left internal jugular vein. There is a right PICC line in place as well as an ET tube, NG tube, and abdominal drains. Bibasilar atelectasis or infiltrate is noted. There is a small left effusion. No pneumothorax. IMPRESSION: The left PICC line tip is directed towards the left internal jugular vein. Bibasilar infiltrates or atelectasis. The PICC line nurse is aware and will adjust its position. Dictated by: Dictated on workstation # [id number]
[2017-05-06] MEDS: ENOXAPARIN 40 MG/0.4 ML (LOVENOX) SYR SC SCH (14:26)
--- NOTE | 2017-05-06 14:52 | Progress Note-Standard ---
Standard Progress Note Progress Notes/Assess & Plan Time Seen by Provider: 14:52 Progress/Assessment & Plan 04/26/17:septic with severe leukopenia. Very poor urine output. On dual vasopressors. Sinus tachycardia. Outcome poor with expected mortality. Central venous pressure around 12. We'll continue to provide fluid resuscitation and maintain vasopressors for now. 04/27/17:continues to require vasopressor support. Urine output reasonable. Creatinine slightly elevated. Ventilation and oxygenation stable. Will place a wound VAC tomorrow. Continue supportive abdomen. Enteral nutrition in 24- 48 hours. DVT prophylaxis with low molecular weight heparin, renally adjusted dose 04/28/17:off the vasopressors. Renal function reasonable.NG output more than 1 L and therefore tube feeding will be delayed.electrolytes satisfactory.we'll continue current management. 04/29/17:Improving. Would facilitate diuresis before embarking on extubation. Intra-abdominal abscesses to be looked for by next week. L femoral arterial line satisfactory with no distal ischemia. Nutritional support in 24-48 hours. 04/30/17:slight change in her condition with decreased urine output and leukocytosis. Abdominal abscess in evolution very likely the culprit. More opacification of the right lung. We will try enteral feeding. Continue antibiotics 05/01/17 Diuresis in progress. Pressure mattress appropriate to prevent skin breakdown. Fascia intact. Tolerating tube feeds. Vent weaning over terrie next 24- 48 hours. HIT antibodies negative 05/04/17: Reintubated. Anasarca improved. Fascia intact. Intra-abdominal abscesses to be expected. CT scan in 48 hours. Tracheostomy discussed with the family and planned for this week 05/05/17:CONTINUES TO IMPROVE. pOOR MUSCLE STRENGTH. tRACHEOSTOMY IN [address] SCAN TOMORROW MORNING. 05/06/17:Intra-abdominal and pelvic abscesses drained percutaneously. Tracheostomy tomorrow. Final Diagnosis Fecal peritonitis MACY TALAVERA MD May 06, 2017 2:52 pm
[2017-05-06] MEDS: PIPERACILLIN SODIUM/TAZOBACTAM 4.5 GM in NS (IVPB) 100 ML IV SCH ×2 (15:17→23:20)
--- NOTE | 2017-05-06 15:53 | Physical Therapy Progress Note ---
Therapy Progress Note Date Seen by Provider: May 06, 2017 Time Seen by Provider: 15:53 Attempted x 2 to see pt this date, pt not available either attempt for PT visit. Will re check tomorrow. LILY MATTHEWS PT May 06, 2017 15:53
[2017-05-06] MEDS ORDERED: TROUGH ORDER-PHARMACY XX ONE (19:00)
[2017-05-06] MEDS: CATHETER FLUSH 10 ML SYR IV SCH (19:59)
[2017-05-07] VITALS (32 sets, daily range): BP systolic 121–250; BP diastolic 34–76
[2017-05-07] MEDS: metroNIDAZOLE 500MG/100ML IVPB 100 ML IV SCH ×3 (01:06→17:34)
[2017-05-07] MEDS: meTOprolol 5 MG/5 ML (LOPRESSOR) VIAL IV SCH ×7 (02:06→23:18)
[2017-05-07] MEDS: RT-ALBUTEROL/IPRATROPIUM 3 ML (DUONEB) VIAL INH SCH ×3 (02:25→18:40)
[2017-05-07 04:29] LABS: ABG BASE EXCESS 0.5 MMOL/L (-2.5-2.5); ABG HCO3 25 MMOL/L (23-27); ABG OXYGEN SATURATION 96 % (94-100); ABG PCO2 44 MMHG (35-45); ABG PH 7.37 (7.37-7.43); ABG PO2 80 MMHG (79-93); ABG TCO2 26.5 MMOL/L (21.0-31.0)
[2017-05-07 04:29] LABS: BASOPHILS % (AUTO) 0 % (0-10); EOSINOPHILS % (AUTO) 0 % (0-10); LYMPHOCYTES # (AUTO) 0.7 X 10^3 (1.0-4.0); LYMPHOCYTES % (AUTO) 5 % (12-44); MEAN CORPUSCULAR HEMOGLOBIN 28 PG (25-34); MEAN CORPUSCULAR HGB CONC 31 G/DL (32-36); MEAN CORPUSCULAR VOLUME 92 FL (80-99); MEAN PLATELET VOLUME 10.5 FL (7.4-10.4); MONOCYTES # (AUTO) 0.7 X 10^3 (0.0-1.0); MONOCYTES % (AUTO) 5 % (0-12); NEUTROPHILS # (AUTO) 11.6 X 10^3 (1.8-7.8); NEUTROPHILS % (AUTO) 89 % (42-75); PLATELET COUNT 389 10^3/uL (130-400); RED BLOOD COUNT 2.78 10^6/uL (4.35-5.85); RED CELL DISTRIBUTION WIDTH 14.3 % (10.0-14.5)
[2017-05-07 04:30] LABS: ALLENS TEST ART LINE; PATIENT TEMP 98.6
[2017-05-07] MEDS: D5W IV SCH ×3 (04:31→17:03)
[2017-05-07] MEDS: POTASSIUM CHLORIDE IV SCH ×3 (04:31→17:03)
[2017-05-07 05:02] LABS: ANION GAP 6 MMOL/L (5-14); BLOOD UREA NITROGEN 31 MG/DL (7-18); BUN/CREATININE RATIO 55; CALCIUM 7.3 MG/DL (8.5-10.1); CARBON DIOXIDE 26 MMOL/L (21-32); CHLORIDE 119 MMOL/L (98-107); CREATININE SERUM 0.56 MG/DL (0.60-1.30); GFR ESTIMATED > 60; GLUCOSE 129 MG/DL (70-105); MAGNESIUM 2.2 MG/DL (1.8-2.4); PHOSPHORUS 3.4 MG/DL (2.3-4.7); POTASSIUM 3.8 MMOL/L (3.6-5.0); SODIUM 151 MMOL/L (135-145)
[2017-05-07 05:04] LABS: EOSINOPHILS % (MANUAL) 1 %; HYPOCHROMASIA SLIGHT; LYMPHOCYTES % (MANUAL) 4 %; NEUTROPHILS % (MANUAL) 92 %; POIKILOCYTOSIS SLIGHT; POLYCHROMASIA SLIGHT
[2017-05-07] MEDS: POTASSIUM CL 10MEQ/50ML IVPB 50 ML IV SCH (05:12)
[2017-05-07] MEDS: MAGNESIUM 1 GM/100 ML IVPB 100 ML IV SCH (05:12)
[2017-05-07] MEDS: KCL 20 MEQ TAB (K-DUR) PO SCH (05:13)
[2017-05-07] MEDS: morphine INJ 4 MG/ML 1 ML (VIAL/SYRINGE) IVP PRN ×3 (05:23→15:00)
--- NOTE | 2017-05-07 05:40 | Pulmonary Progress Note ---
Subjective Subjective/Events-last exam Pt is more awake today and doing well. Plan if for tracheostomy today. Exam Exam Vital Signs Date Time Temp Pulse Resp B/P (MAP) Pulse Ox O2 Delivery O2 Flow Rate FiO2 05/07/17 04:00 97.1 05/07/17 04:00 100 30 05/07/17 02:25 61 20 100 30 05/07/17 02:00 72 20 125/37 99 30.00 05/07/17 01:00 70 05/07/17 01:00 65 18 157/39 100 30.00 05/07/17 00:05 78 21 100 30 05/07/17 00:00 100 30 05/07/17 00:00 98.4 05/07/17 00:00 61 20 173/44 100 30.00 05/06/17 23:00 77 23 158/42 100 30.00 05/06/17 22:36 68 25 100 30 05/06/17 22:00 64 24 145/38 100 30.00 05/06/17 21:00 70 22 121/33 100 30.00 05/06/17 20:21 66 24 100 30 05/06/17 20:00 97.6 30.00 05/06/17 20:00 74 24 120/37 100 30.00 05/06/17 20:00 98.0 05/06/17 20:00 100 30 05/06/17 19:00 75 26 126/38 99 30.00 05/06/17 19:00 75 05/06/17 18:35 73 24 100 30 05/06/17 18:00 76 22 129/38 100 30.00 05/06/17 17:00 79 26 133/39 99 30.00 05/06/17 16:06 67 25 100 30 05/06/17 16:00 100 30 05/06/17 16:00 73 20 135/33 99 30.00 05/06/17 15:57 98.8 05/06/17 15:00 69 24 148/38 99 30.00 05/06/17 14:29 67 17 99 30 05/06/17 14:25 151/37 05/06/17 14:00 68 21 112/35 97 30.00 05/06/17 13:00 75 05/06/17 13:00 66 20 97/41 97 30.00 05/06/17 12:55 74 22 97 30 05/06/17 12:15 98.5 05/06/17 12:00 100 30 05/06/17 12:00 82 21 101/47 99 30.00 05/06/17 11:00 78 21 116/53 100 30.00 05/06/17 10:00 75 23 124/50 98 30.00 05/06/17 09:40 94 22 100 30 05/06/17 08:15 98.0 05/06/17 08:00 100 30 05/06/17 07:30 97 05/06/17 07:00 95 22 169/62 100 30.00 05/06/17 07:00 87 05/06/17 06:10 89 27 100 30 05/06/17 06:00 87 24 135/60 100 30.00 05/06/17 05:46 89 I & O 05/07/17 07:00 Intake Total 3319 ml Output Total 2175 ml Balance 1144 ml General Appearance: WD/WN, Mild Distress, Other (pt is comfortable on vent ) HEENT: Normal ENT Inspection Neck: Limited Range of Motion Respiratory: Lungs Clear, Accessory Muscle Use, Other (increased respiratory rate) Cardiovascular: Irregularly Irregular Capillary Refill: Less Than 3 Seconds Gastrointestinal: soft, tenderness Extremity: Normal Capillary Refill Neurologic/Psychiatric: Alert, Oriented x3 Skin: Normal Color Lymphatic: No Adenopathy Results Lab Laboratory Tests 05/06/17 04:20 05/07/17 04:15 Assessment/Plan Assessment/Plan Acute respiratory failure since postop secondary to aspiration of bowel contents -- sputum is growing MDR Acinetobacter -Isolation - porsche tolbert, -Pt is awake/alert - -continue morphine for pain control -plan is for tracheostomy Abdominal abscess s/p drain placement x 3 Anemia - monitor - ASPIRATION PNA with MDR Acinetobacter -S/P bronchoscopy mucous plugging Hypernatremia/hyperchloremia - Secondary to saline - - 250cc of free water per OG Q6 -IVF changed to D5W and 20 KCL 75cc/hr Malnutrition -TF with pulmicare -- -? Dobbhoff placement today thrombocytopenia - improving -HIT Abx is negative -Arixtra Atelectasis, pulmonary edema, and mucous plugging on CT of chest -Add SVN Q4 Duoneb with Mucomyst TID -CPT per RT -monitor CXR Severe Deconditioning - pt is very weak -PT/OT Afib RVR- now converted back to sinus -cardiology following following Runs of vtach -cardiology following and aware hypothyroid -Pt is getting IV Synthroid -repeat TSH HX of SVT/AF -LABS AND CXR REVIEWED 233 Clinical Quality Measures DVT/VTE Risk/Contraindication: Risk Factor Score Per Nursin RFS Level Per Nursing on Admit: 4+=Very High CHRISS ARTIS DO May 07, 2017 05:40
[2017-05-07] MEDS ORDERED: LACTATED RINGERS 1,000 ML IV ONE ×2 (05:45→10:19)
[2017-05-07] MEDS: DEXMEDETOMIDINE INJECTION 200 MCG in NS (IVPB) 50 ML IV SCH ×2 (06:00→18:46)
[2017-05-07] MEDS: METOCLOPRAMIDE INJ 10 MG/2 ML (REGLAN) IVP SCH ×3 (06:20→17:34)
[2017-05-07] MEDS: PIPERACILLIN SODIUM/TAZOBACTAM 4.5 GM in NS (IVPB) 100 ML IV SCH ×3 (06:21→23:20)
[2017-05-07] MEDS: RT-ALBUTEROL SULF 2.5 MG/3 ML PRE-MIX VIAL IH SCH ×3 (06:31→22:41)
[2017-05-07] MEDS: aCETylcysteine 20% (MUCOMYST) 30ML SOLN VIAL INH SCH ×3 (06:31→22:41)
--- NOTE | 2017-05-07 07:52 | Diagnostic Imaging Report ---
INDICATION: Respiratory failure. Portable chest at 5:18 AM. There is an ET tube projecting over the trachea. NG tube projects over the stomach. There are bilateral nephrostomy tubes. There is some atelectasis at both lung bases. Right upper extremity PICC line tip projects over the SVC. Left upper extremity PICC line tip projects over the SVC. IMPRESSION: Bibasilar atelectasis similar to the previous day 's comparison exam. Dictated by: Dictated on workstation # [id number]
[2017-05-07] MEDS: PANTOPRAZOLE 40 MG/10 ML (PROTONIX) VIAL IVP SCH (08:06)
[2017-05-07] MEDS: CATHETER FLUSH 10 ML SYR IV SCH ×2 (08:07→21:21)
[2017-05-07] MEDS: LEVOTHYROXINE 100 MCG INJ (SYNTHROID) VIAL IV SCH (08:07)
[2017-05-07] MEDS: FLUCONAZOLE 100 MG/50 ML 50 ML IV SCH (08:07)
[2017-05-07] MEDS: FUROSEMIDE 40 MG/4 ML INJ (LASIX) IVP SCH (08:08)
[2017-05-07] MEDS: AMIODARONE 200 MG (CORDARONE) TAB PO SCH (08:08)
[2017-05-07] MEDS: PROPOFOL DRIP (ICU) 100 ML IV SCH ×2 (08:25→17:03)
--- NOTE | 2017-05-07 08:37 | Progress Note-Hospitalist ---
Progress Note HPI/CC on Admission CC: Management of critical illness with acute peritonitis due to bowel perforation with aspiration of bowel contents during intubation HPI: This is a 61-year-old white female clinic patient of Dr. 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 Apparently she was wanting to go to [place] and used to suppository like she usually does because she is struggle with constipation since cardiac meds have been initiated several years ago but at noon time she started having a lot of pain to the extent that required emergency room evaluation. CT scan was obtained found to have bowel perforation with peritonitis and during intubation for surgery she aspirated bowel contents so she now has a diverting colostomy but the pictures during surgery appeared to have a multitude of impacted bowel contents within the abdominal cavity. I did speak with Dr. Horvath her primary care provider and employer and it appears that she is not up-to-date on her colonoscopy and has not had one before and she has had significant constipation issues for the past several years so I hypothesized that impacted stool has been an ongoing problem for her probably stretching the tissue over a long period time and finally rupturing causing this critical illness. She is requiring high doses of Levophed and closely monitoring due to severe sepsis and multisystem organ failure. She has received aggressive IV fluids per protocol and currently monitor closely due to history of arrhythmia maintained on Rythmol as an outpatient. She sees Dr. Ku cardiology at [facility] after she failed undergoing ablation up in [place] years ago. I have consulted cardiology and vacuum closing machine operator and eICU to facilitate management of this critically ill patient. Progress Notes/Assess & Plan Date Seen 05/07/17 Time Seen by Provider: 08:30 Admission Dx/Process Assessment: Acute peritonitis from colonic perforation with impacted stool with history of severe chronic constipation status post diverting colostomy POD # 1 Aspiration of bowel contents during intubation for surgery with ventilator- dependent respiratory failure currently History of SVT/AF status post attempted ablation an unsuccessful maintained on Rythmol by Dr. Ku cardiology [facility] History of hypertension Hypothyroidism Leukopenia due to sepsis Hypokalemia Diagonsis/Assessment & Plan Chart Review: No fever Vitals stable WBC down to 13 Hgb 7.9 AB.37/44/80 Na+ 151 Creatine 0.56 CXR: atelectasis no change from yesterday Nurse Report: Pt is going to surgery today for her trach resident assistant said that her ABG was perfect and nothing was out of range The nurse will call Dr. Causey and see about an extubation Fluids were raised to 115 Patient Interview: Pt is much more alert today I educated the pt that the ABG looks much better today as well Physical exam stable; lungs were clear to auscultation bilaterally Pt states that she is not having any pain today Pt looks very close to extubation today but due to multiple other factors will need to have trach Plan: Dr. Ng will do the trach today Touch base with Dr. Causey regarding extubation plans Scribed by Kendrick Coronado No fever, vital signs stable much improved 130/82, much improved, O x 3 RRR, Coarse breath sounds now resolved Colostomy in place Laboratory Tests 05/07/17 04:15 Assessment: Acute peritonitis from colonic perforation with impacted stool with long history of severe chronic constipation status post diverting colostomy POD # 7 with septic shock requiring pressors and aggressive IVF management now improved and more stable but but unable to extubate as tentatively planned but will begin the wean process after trach is placed today Aspiration of bowel contents during intubation for surgery with ventilator- dependent respiratory failure currently maintained on Meropenem and s/p Diflucan History of SVT status post attempted ablation and unsuccessful maintained on Rythmol by Dr. Ku cardiology [facility] consulted Dr Nettles and his recs are appreciated and had an episode of AF 4 nights ago resolved with suctioning History of hypertension Hypothyroidism Leukopenia due to sepsis now leukocytosis Hypokalemia replacing Metabolic acidosis due to sepsis Thrombocytopenia due to sepsis improved Anemia likely affiliated due to phlebotomy Plan: Replace potassium per protocol Maintain ventilator and appreciate Dr Causey's expertise Empiric antibiotics for peritonitis and aspiration of bowel contents Cardiology recs are appreciated Monitor labs Maintain colostomy SCDs TPN Stable but guarded Trach placement today DAVY ROME DO May 07, 2017 08:37
[2017-05-07] MEDS: NS IV SCH (08:49)
[2017-05-07] MEDS: GENTAMICIN IV SCH (08:49)
[2017-05-07] MEDS ORDERED: ROCURONIUM 50 MG/5 ML (ZEMURON) VIAL IV ONE (09:12)
[2017-05-07] MEDS ORDERED: fentaNYL INJECTION 100 MCG/2 ML AMP ONE ×2 (09:13→10:58)
[2017-05-07] MEDS ORDERED: MIDAZOLAM 2 MG/2 ML (VERSED) VIAL ONE ×2 (09:13)
--- NOTE | 2017-05-07 09:27 | Progress Note-Pre Operative ---
Pre-Operative Progress Note H&P Reviewed The H&P was reviewed, patient examined and no changes noted. Date Seen by Provider: May 07, 2017 Time Seen by Provider: : Date H&P Reviewed: May 06, 2017 Time H&P Reviewed: 09:27 Pre-Operative Diagnosis: Ventilatory failure MACY TALAVERA MD May 07, 2017 9:27 am
[2017-05-07] MEDS ORDERED: MIDAZOLAM 5 MG/5 ML (VERSED) VIAL ONE (09:29)
--- NOTE | 2017-05-07 09:39 | Physical Therapy Daily Note ---
PT Daily Note-Current Subjective Eyes open. Nods to answer questions. Indicates she prefers to go by Madeline. Attempts to interact with this therapist with nods and blinking of eyes to questions. Mental Status Patient Orientation: Person Transfers Functional [place] Measure 0=Not Assessed/NA 4=Minimal Assistance 1=Total Assistance 5=Supervision or Setup 2=Maximal Assistance 6=Modified [place] 3=Moderate Assistance 7=Complete IndependenceIRFPAI Quality Coding Scale 6 Independent with activity with or without an assistive device 5 Patient requires set up or clean up by helper. Patient completes activity by themselves 4 Supervision or touching assist (CGA). Elysian provide cues , steadying assist 3 The helper provides less than half the effort to complete the activity 2 The helper provides more than half the effort to complete the activity 1 Dependent. The helper does all the effort to complete an activity 7 Patient refused to complete or attempt activity 9 The patient did not perform the activity before the current illness or injury 88 Not attempted due to Medical conditions or safety concerns Treatments PROM B U/LE's performed all planes all ranges. AAROM shoulder flexion and hip/ knee flexion--trace muscle contraction. Pt did actively participate Assessment Current Status: Good Progress More alert, more interactive. Attempted to participate in ROM, very weak. To have trach placed today. PT Multiple Drill Operator Goals Multiple Drill Operator Goals PT Skilled Nursing Goals Time Frame: May 13, 2017 Transfers (B,C,W/C) (FIM): 4 Gait (FIM): 2 Gait distance (FIM): 1=up to 49 ft Gait Assistive Device: FWW PT Plan Problem List Problem List: Activity Tolerance, Functional Strength Treatment/Plan Treatment Plan: Continue Plan of Care Treatment Plan: Bed Mobility, Education, Functional Activity Carlos A, Functional Strength, Gait, Safety, Therapeutic Exercise, Transfers Treatment Duration: May 13, 2017 Visits Per Week: 5-11 Time/GCodes Time In: 835 Time Out: 858 Total Billed Treatment Time: 23 Total Billed Treatment visit EX 23 LILY MATTHEWS PT May 07, 2017 09:39
[2017-05-07] MEDS ORDERED: proPOfol 200 MG/20 ML (DIPRIVAN) VIAL IV ONE (10:17)
[2017-05-07] MEDS ORDERED: NS (IVPB) 250 ML ONE (10:19)
[2017-05-07] MEDS ORDERED: PHENYLEPHRINE 100 MCG/ML 10 ML (ANESTHESIA) SYR ONE (10:19)
[2017-05-07] MEDS ORDERED: PHENYLEPHRINE INJ 10 MG/ML (NEO-SYNEPHRINE 1%) ONE (10:19)
[2017-05-07] MEDS ORDERED: morphine INJ 10 MG/ML 1ML (SYR OR VIAL) ONE (10:58)
--- NOTE | 2017-05-07 11:14 | OPERATIVE REPORT ---
DATE OF SERVICE: 05/07/2017 PREOPERATIVE DIAGNOSES: 1. Fecal peritonitis due to sigmoid colon perforation. 2. Ventilatory failure. POSTOPERATIVE DIAGNOSES: 1. Fecal peritonitis due to sigmoid colon perforation. 2. Ventilatory failure. OPERATION: Percutaneous dilatational tracheostomy. SURGEON: Hernandez ANESTHESIA: General anesthesia. BLOOD LOSS: Minimal. FLUIDS: 300 mL of crystalloid. TYPE OF WOUND: Type 3 (contaminated wound). INDICATION FOR PROCEDURE: This lady suffered sepsis due to fecal peritonitis, resulting from a large perforation of the sigmoid colon. This was managed by Jose R procedure. As anticipated, she developed ventilatory failure requiring prolonged support. To facilitate this, placing a tracheostomy was felt to be reasonable. Informed consent was obtained after reviewing the procedure in detail. DESCRIPTION OF PROCEDURE: She was brought to the operating room, intubated. General anesthesia was induced using the existing endotracheal tube. She had received intravenous antibiotics prior to arrival in the operating room. Her neck was prepared and draped in the usual sterile manner. After adequate antiseptic preparation, the tracheal space between the 2nd and 3rd tracheal rings was entered using an access needle and a guidewire introduced. It was visualized by direct bronchoscopic examination by our MUCKING MACHINE OPERATOR. Care was taken to ensure that the needle had not penetrated the existing endotracheal tube, that had been pulled back to the level of the vocal cords. A pre-dilating sheath was then introduced and the tract gently dilated. This was followed by a smooth dilatation using a preformed dilator. Subsequently, a 7-Yoruba tracheostomy tube was exchanged over the guidewire. The cuff was inflated and the MUCKING MACHINE OPERATOR reported adequate end-tidal carbon dioxide. In addition, flexible bronchoscopy was repeated, ensuring satisfactory position of the tracheostomy tube. The tube itself was secured using Prolene sutures and a dressing applied. She tolerated the procedure reasonably well. Job ID: [id number] DocumentID: [id number] Dictated Date: 05/07/2017 10:27:04 Binder Cutter Date: 05/07/2017 11:14:21 Dictated By: MACY TALAVERA MD [facility]
--- NOTE | 2017-05-07 11:16 | Progress Note-Post Operative ---
Post-Operative Progess Note Surgeon (s)/Philosophy Professor (s) Surgeon MACY TALAVERA MD Philosophy Professor: Not applicable Pre-Operative Diagnosis Ventilatory failure Post-Operative Diagnosis same Procedure & Operative Findings Date of Procedure 05/07/17 Procedure Performed/Findings percutaneous dilatational tracheostomy Anesthesia Type Gen. Estimated Blood Loss Estimated blood loss (mL): minimal Specimens/Packing Specimens Removed none MACY TALAVERA MD May 07, 2017 11:16 am
[2017-05-07] MEDS ORDERED: SEVOFLURANE (ULTANE) 15 ML INHAL SOLN ONE (13:12)
--- NOTE | 2017-05-07 14:00 | Diagnostic Imaging Report ---
EXAMINATION: Fluoroscopic-guided insertion of nasojejunal tube. INDICATION: Patient on ventilation and needs enteric feeding. Current history and physical and other medical records are reviewed prior to the procedure. Fluoroscopic time utilized is 13 minutes. 40 cc of Omnipaque 300. CONSENT: Informed consent was obtained from the patient family. The risks, benefits, potential complications and alternatives were reviewed and all questions answered to the patient's satisfaction. The patient's vital signs, cardiac rhythm, and pulse oximetry with observed throughout the procedure by qualified nursing personnel. The patient is under anesthesia as this procedure was done in the OR. PROCEDURE: After maximal sterile barrier technique preparation and draping, 1% lidocaine was utilized for local anesthesia. Initially an 0.035 soft guidewire was introduced through the nasal cavity into the stomach. This is followed by a 5-Uruguayan multipurpose catheter which was directed afterwards into the duodenum and negotiated with catheter and wire manipulation to advance into the jejunum. The wire was then removed, and an exchange-length stiff Glidewire was introduced. Position of the catheter was further advanced into the jejunum. Then the catheter was removed, and the enteric tube was placed over the wire. The tube was successfully placed, and good position is confirmed with contrast injection opacifying proximal/ mid jejunal loops. Contrast was injected in the gastric port and demonstrates opacification in the stomach. The patient tolerated the procedure well with no immediate complications. FINDINGS: Tip of the inserted tube is confirmed to be in the jejunum. IMPRESSION: Successful placement of a nasojejunal tube for enteric feeding. Dictated by: Dictated on workstation # [id number]
[2017-05-07] MEDS: ENOXAPARIN 40 MG/0.4 ML (LOVENOX) SYR SC SCH (14:17)
--- NOTE | 2017-05-07 14:52 | Occ Therapy Progress Note ---
Therapy Progress Note Pt had procedure completed. Check on pt tomorrow. LILY INMAN May 07, 2017 14:52
[2017-05-07] MEDS ORDERED: morphine INJ 4 MG/ML 1 ML (VIAL/SYRINGE) IVP PRN ×2 (18:00)
[2017-05-08] VITALS (34 sets, daily range): BP systolic 97–204; BP diastolic 32–70
[2017-05-08] MEDS: METOCLOPRAMIDE INJ 10 MG/2 ML (REGLAN) IVP SCH ×4 (00:31→17:24)
[2017-05-08] MEDS: metroNIDAZOLE 500MG/100ML IVPB 100 ML IV SCH ×3 (00:31→18:38)
[2017-05-08] MEDS: PROPOFOL DRIP (ICU) 100 ML IV SCH ×3 (00:36→23:54)
[2017-05-08] MEDS: meTOprolol 5 MG/5 ML (LOPRESSOR) VIAL IV SCH ×3 (01:49→08:45)
[2017-05-08] MEDS: RT-ALBUTEROL/IPRATROPIUM 3 ML (DUONEB) VIAL INH SCH ×3 (01:55→18:29)
[2017-05-08] MEDS: D5W IV SCH (03:35)
[2017-05-08] MEDS: POTASSIUM CHLORIDE IV SCH (03:35)
[2017-05-08 05:00] LABS: ABG BASE EXCESS -1.6 MMOL/L (-2.5-2.5); ABG HCO3 23 MMOL/L (23-27); ABG OXYGEN SATURATION 97 % (94-100); ABG PCO2 42 MMHG (35-45); ABG PH 7.36 (7.37-7.43); ABG PO2 88 MMHG (79-93); ABG TCO2 24.4 MMOL/L (21.0-31.0); ALLENS TEST ART LINE
[2017-05-08 05:01] LABS: PATIENT TEMP 98.8
[2017-05-08 05:06] LABS: BASOPHILS % (AUTO) 0 % (0-10); EOSINOPHILS # (AUTO) 0.1 10^3/uL (0.0-0.3); EOSINOPHILS % (AUTO) 0 % (0-10); LYMPHOCYTES # (AUTO) 0.8 X 10^3 (1.0-4.0); LYMPHOCYTES % (AUTO) 5 % (12-44); MEAN CORPUSCULAR HEMOGLOBIN 29 PG (25-34); MEAN CORPUSCULAR HGB CONC 31 G/DL (32-36); MEAN CORPUSCULAR VOLUME 92 FL (80-99); MEAN PLATELET VOLUME 10.6 FL (7.4-10.4); MONOCYTES # (AUTO) 0.7 X 10^3 (0.0-1.0); MONOCYTES % (AUTO) 4 % (0-12); NEUTROPHILS # (AUTO) 15.3 X 10^3 (1.8-7.8); NEUTROPHILS % (AUTO) 91 % (42-75); PLATELET COUNT 448 10^3/uL (130-400); RED BLOOD COUNT 2.77 10^6/uL (4.35-5.85); RED CELL DISTRIBUTION WIDTH 14.2 % (10.0-14.5); WHITE BLOOD COUNT 16.8 10^3/uL (4.3-11.0)
--- NOTE | 2017-05-08 05:15 | Pulmonary Progress Note ---
Subjective Subjective/Events-last exam post tracheostomy. No complications noted. Exam Exam Vital Signs Date Time Temp Pulse Resp B/P (MAP) Pulse Ox O2 Delivery O2 Flow Rate FiO2 05/08/17 04:17 86 23 100 30 05/08/17 04:00 100 30 05/08/17 03:00 83 24 181/36 100 30.00 140/62 05/08/17 02:00 62 26 193/43 99 30.00 154/60 05/08/17 01:56 80 27 99 30 05/08/17 01:00 87 05/08/17 01:00 82 25 174/32 100 30.00 129/67 05/08/17 00:36 82 05/08/17 00:09 81 26 100 30 05/08/17 00:00 100 30 05/08/17 00:00 98.0 05/08/17 00:00 81 24 181/36 100 30.00 133/59 05/07/17 23:00 74 21 190/34 99 30.00 146/69 05/07/17 22:41 77 25 100 30 05/07/17 22:00 81 24 190/35 100 30.00 147/69 05/07/17 21:45 81 23 193/36 100 30.00 149/68 05/07/17 21:00 87 25 214/76 100 30.00 05/07/17 20:00 82 23 250/69 100 30.00 05/07/17 20:00 100 30 05/07/17 20:00 97.9 05/07/17 19:53 76 26 100 30 05/07/17 19:00 89 05/07/17 19:00 85 24 194/44 100 30.00 05/07/17 18:41 70 25 100 30 05/07/17 18:00 74 21 177/43 100 30.00 05/07/17 17:03 Mechanical Ventilator 30.00 05/07/17 17:00 76 20 147/40 100 30.00 05/07/17 16:50 82 24 100 30 05/07/17 16:00 100 30 05/07/17 16:00 99.0 05/07/17 16:00 83 21 180/45 100 30.00 05/07/17 15:00 66 21 185/49 98 30.00 05/07/17 14:30 68 16 100 30 05/07/17 14:00 67 16 168/48 100 30.00 05/07/17 13:00 67 18 175/57 99 30.00 05/07/17 13:00 78 05/07/17 12:34 100 30 05/07/17 11:58 78 19 100 30 05/07/17 09:00 73 20 163/43 100 30.00 05/07/17 08:38 68 18 100 30 05/07/17 08:25 72 100 05/07/17 08:00 99.0 82 27 163/47 100 30.00 05/07/17 08:00 100 30 05/07/17 07:00 65 19 175/45 99 30.00 05/07/17 07:00 82 05/07/17 06:32 68 18 100 30 05/07/17 06:00 75 18 158/38 100 30.00 I & O 05/08/17 07:00 Intake Total 3013.2 ml Output Total 2175 ml Balance 838.2 ml General Appearance: WD/WN, Mild Distress, Other (pt is comfortable on vent ) HEENT: Normal ENT Inspection Neck: Limited Range of Motion Respiratory: Lungs Clear, Accessory Muscle Use, Other (increased respiratory rate) Cardiovascular: Irregularly Irregular Capillary Refill: Less Than 3 Seconds Gastrointestinal: soft, tenderness Extremity: Normal Capillary Refill Neurologic/Psychiatric: Alert, Oriented x3 Skin: Normal Color Lymphatic: No Adenopathy Results Lab Laboratory Tests 05/07/17 04:15 Assessment/Plan Assessment/Plan Acute respiratory failure since postop secondary to aspiration of bowel contents -- sputum is growing MDR Acinetobacter -Will start doing weaning trials during day as tolerated -Isolation - zosyn, gent, -Pt is awake/alert - -continue morphine for pain control -s/p tracheostomy Abdominal abscess s/p drain placement x 3 Anemia - monitor - ASPIRATION PNA with MDR Acinetobacter -S/P bronchoscopy mucous plugging Hypernatremia/hyperchloremia - Secondary to saline - - 250cc of free water per OG Q6 -IVF changed to D5W and 20 KCL 75cc/hr Malnutrition -TF with pulmicare -- -? Dobbhoff placement today thrombocytopenia - improving -HIT Abx is negative -Arixtra Atelectasis, pulmonary edema, and mucous plugging on CT of chest -Add SVN Q4 Duoneb with Mucomyst TID -CPT per RT -monitor CXR Severe Deconditioning - pt is very weak -PT/OT Afib RVR- now converted back to sinus -cardiology following following Runs of vtach -cardiology following and aware hypothyroid -Pt is getting IV Synthroid -repeat TSH HX of SVT/AF -LABS AND CXR pending 233 Clinical Quality Measures DVT/VTE Risk/Contraindication: Risk Factor Score Per Nursin RFS Level Per Nursing on Admit: 4+=Very High CHRISS ARTIS DO May 08, 2017 05:14
[2017-05-08 05:33] LABS: ANION GAP 9 MMOL/L (5-14); BLOOD UREA NITROGEN 24 MG/DL (7-18); BUN/CREATININE RATIO 44; CALCIUM 7.2 MG/DL (8.5-10.1); CARBON DIOXIDE 21 MMOL/L (21-32); CHLORIDE 115 MMOL/L (98-107); CREATININE SERUM 0.54 MG/DL (0.60-1.30); GFR ESTIMATED > 60; GLUCOSE 168 MG/DL (70-105); MAGNESIUM 1.7 MG/DL (1.8-2.4); PHOSPHORUS 2.9 MG/DL (2.3-4.7); POTASSIUM 4.1 MMOL/L (3.6-5.0); SODIUM 145 MMOL/L (135-145)
[2017-05-08] MEDS: POTASSIUM CL 10MEQ/50ML IVPB 50 ML IV SCH (06:39)
[2017-05-08] MEDS: MAGNESIUM 1 GM/100 ML IVPB 100 ML IV SCH ×3 (06:39→10:37)
[2017-05-08] MEDS: KCL 20 MEQ TAB (K-DUR) PO SCH (06:40)
[2017-05-08] MEDS: aCETylcysteine 20% (MUCOMYST) 30ML SOLN VIAL INH SCH ×3 (07:01→22:20)
[2017-05-08] MEDS: RT-ALBUTEROL SULF 2.5 MG/3 ML PRE-MIX VIAL IH SCH ×3 (07:01→22:20)
[2017-05-08] MEDS: FUROSEMIDE 40 MG/4 ML INJ (LASIX) IVP SCH (08:21)
[2017-05-08] MEDS: AMIODARONE 200 MG (CORDARONE) TAB PO SCH (08:21)
[2017-05-08] MEDS: PANTOPRAZOLE 40 MG/10 ML (PROTONIX) VIAL IVP SCH (08:21)
[2017-05-08] MEDS: PIPERACILLIN SODIUM/TAZOBACTAM 4.5 GM in NS (IVPB) 100 ML IV SCH ×3 (08:22→23:25)
[2017-05-08] MEDS: FLUCONAZOLE 100 MG/50 ML 50 ML IV SCH (08:22)
[2017-05-08] MEDS: DEXMEDETOMIDINE INJECTION 200 MCG in NS (IVPB) 50 ML IV SCH ×3 (08:42→22:53)
[2017-05-08] MEDS: LEVOTHYROXINE 100 MCG INJ (SYNTHROID) VIAL IV SCH (09:05)
[2017-05-08] MEDS: CATHETER FLUSH 10 ML SYR IV SCH ×2 (09:07→21:55)
[2017-05-08] MEDS: NS IV SCH (09:07)
[2017-05-08] MEDS: GENTAMICIN IV SCH (09:07)
--- NOTE | 2017-05-08 09:52 | Diagnostic Imaging Report ---
Portable upright radiograph of the chest. INDICATION: Sepsis. FINDINGS: There is a new tracheostomy tube in place. There is a nasojejunal tube, bilateral PICC lines, and upper abdominal drains are seen. There is persistent bilateral basilar atelectasis or infiltrate and suggestion of a small left pleural effusion. The heart size appears enlarged. No pneumothorax. The mediastinum and kirby appear unremarkable. IMPRESSION: Unchanged bibasilar infiltrates or atelectasis. Dictated by: Dictated on workstation # [id number]
--- NOTE | 2017-05-08 10:24 | Cardiology Progress Note ---
Cardiology SOAP Progress Note Subjective: Patient is status post trach yesterday. Objective: I&O/Vital Signs Vital Sign - Last 12Hours 05/07/17 05/07/17 05/08/17 05/08/17 22:41 23:00 00:00 00:00 Temp 98.0 Pulse 77 74 81 Resp 25 21 24 B/P (MAP) 190/34 181/36 146/69 133/59 Pulse Ox 100 99 100 O2 Flow Rate 30.00 30.00 FiO2 30 05/08/17 05/08/17 05/08/17 05/08/17 00:00 00:09 00:36 01:00 Pulse 81 82 82 Resp 26 25 B/P (MAP) 174/32 129/67 Pulse Ox 100 100 100 O2 Flow Rate 30.00 FiO2 30 30 05/08/17 05/08/17 05/08/17 05/08/17 01:00 01:56 02:00 03:00 Pulse 87 80 62 83 Resp 27 26 24 B/P (MAP) 193/43 181/36 154/60 140/62 Pulse Ox 99 99 100 O2 Flow Rate 30.00 30.00 FiO2 30 05/08/17 05/08/17 05/08/17 05/08/17 04:00 04:00 04:17 05:00 Temp 98.8 Pulse 77 86 82 Resp 27 23 25 B/P (MAP) 141/32 151/46 158/67 140/70 Pulse Ox 99 100 100 100 O2 Flow Rate 30.00 30.00 FiO2 30 30 05/08/17 05/08/17 05/08/17 06:00 07:00 07:01 Pulse 80 88 81 Resp 26 25 B/P (MAP) 150/56 Pulse Ox 99 100 O2 Flow Rate 30.00 FiO2 30 Intake and Output 05/08/17 00:00 Intake Total 1567 ml Output Total 990 ml Balance 577 ml Weight (Pounds): 193 Weight (Ounces): 5.0 Weight (Calculated Kilograms): [id number] Constitutional: other (status post-trach) Respiratory: No accessory muscle use, No respiratory distress, No chest tender , No chest expansion is symmetric, No chest is bilaterally symmetric, No lungs clear to percussion, No lungs clear to auscultation, No crackles, No rhonchi, No rales, No stridor, No wheezing, No pleural rub, other (Fair bilateral air entry; coarse airway sounds but no rhonchi) Cardiovascular: regular rate-rhythm, tachycardia, S1 and S2, other (Faint WILL at card base) Gastrointestional: other (Recent abdominal surgery, colostomy in place) Extremities: pedal edema, No clubbing, No cyanosis Neurologic/Psychiatric: no motor/sensory deficits, alert Skin: No rash on exposed areas, ulcerations on exposed areas Results/Procedures: Labs Laboratory Tests 05/07/17 17:59: Glucometer 113H 05/08/17 04:50: White Blood Count 16.8H, Red Blood Count 2.77L, Hemoglobin 8.0L, Hematocrit 26L , Mean Corpuscular Volume 92, Mean Corpuscular Hemoglobin 29, Mean Corpuscular Hemoglobin Concent 31L, Red Cell Distribution Width 14.2, Platelet Count 448H, Mean Platelet Volume 10.6H, Neutrophils (%) (Auto) 91H, Lymphocytes (%) (Auto) 5L, Monocytes (%) (Auto) 4, Eosinophils (%) (Auto) 0, Basophils (%) (Auto) 0, Neutrophils # (Auto) 15.3H, Lymphocytes # (Auto) 0.8L, Monocytes # (Auto) 0.7, Eosinophils # (Auto) 0.1, Basophils # (Auto) 0.0, Blood Gas Puncture Site [facility]ANI[facility] , Blood Gas Patient Temperature 98.8, Arterial Blood pH 7.36L, Arterial Blood Partial Pressure CO2 42, Arterial Blood Partial Pressure O2 88, Arterial Blood HCO3 23, Arterial Blood Total CO2 24.4, Arterial Blood Oxygen Saturation 97, Arterial Blood Base Excess -1.6, Brannon Test ART LINE, Blood Gas Ventilator Setting YES, Blood Gas Inspired Oxygen 30%, Sodium Level 145, Potassium Level 4.1, Chloride Level 115H, Carbon Dioxide Level 21, Anion Gap 9, Blood Urea Nitrogen 24H, Creatinine 0.54L, Estimat Glomerular Filtration Rate > 60, BUN/ Creatinine Ratio 44, Glucose Level 168H, Calcium Level 7.2L, Phosphorus Level 2.9, Magnesium Level 1.7L Microbiology 04/30/17 Blood Culture - Final, Complete No growth 05/04/17 Gram Stain - Final, Complete 05/04/17 Sputum Culture - Final, Complete Acinetobacter Baumanii See Comments Presumptive Ivy Albicans 05/06/17 Gram Stain - Final, Resulted 05/06/17 Anaerobic Culture, Resulted Pending 05/06/17 Surgical Culture - Preliminary, Resulted No growth A/P: Assessment/Dx: Large bowel perforation, fecal peritonitis, severe septic shock. Nonsustained VT, PAF, Acute diastolic heart failure Plan: Large bowel perforation status post emergent abdominal surgery by Dr. Ng 10 days ago. Peritonitis/severe septic shock: On broad-spectrum antibiotics. Significant improvement of sepsis. Status post trach yesterday. Nonsustained VT: Frequent PVCs. Continue PO amiodarone 200mg and metoprolol. Continue aggressive repletion of electrolytes. PAF: currently in sinus rhythm. acute diastolic heart failure: Elevated BNP. Normal EF on Echo. Treatment with IV lasix. Thank you for your consultation. Please call me if you have any questions. Jung Foote MD, FACP, FACC, FSCAI, FHRS, CCDS Interventional Cardiology Cardiac Electrophysiology Vascular Medicine and Endovascular Interventions Darshana FOOTE MD May 08, 2017 10:24
[2017-05-08] MEDS: morphine INJ 4 MG/ML 1 ML (VIAL/SYRINGE) IVP PRN ×6 (10:33→21:47)
--- NOTE | 2017-05-08 10:33 | Physical Therapy Daily Note ---
PT Daily Note-Current Subjective Pt mouths, "I don't want to." When this therapist initially discussed putting her head up. Pt expresses anxiety over changing position. However, with gentle progression, pt agreeable to therapy. Pain Numeric Pain Scale: 8 Location Body Site: Abdomen Pain Description: Ache (/sore) Comment: general pain Mental Status Patient Orientation: Person Multiple attachments. Transfers Functional [place] Measure 0=Not Assessed/NA 4=Minimal Assistance 1=Total Assistance 5=Supervision or Setup 2=Maximal Assistance 6=Modified [place] 3=Moderate Assistance 7=Complete IndependenceIRFPAI Quality Coding Scale 6 Independent with activity with or without an assistive device 5 Patient requires set up or clean up by helper. Patient completes activity by themselves 4 Supervision or touching assist (CGA). [place] provide cues , steadying assist 3 The helper provides less than half the effort to complete the activity 2 The helper provides more than half the effort to complete the activity 1 Dependent. The helper does all the effort to complete an activity 7 Patient refused to complete or attempt activity 9 The patient did not perform the activity before the current illness or injury 88 Not attempted due to Medical conditions or safety concerns Pt is dependent for rolling and scooting up in bed. At the end of treatment, assisted nursing with rolling patient to her right side and positioning comfortably with heel protectors in place and SCD's activitate. Treatments Treatment consisted of a gentle combination and mix of PROM, AP, QS and hand squeezes. This was mixed with gently and slowly elevating the HOB and also bending the hips and knees to mimic a seated position. Unable to get pt to 90 degrees sitting up but did attain approx 80 degrees and feet down. Maintained this position for approx 30 minutes while performed the leg activity and UE PROM. Nursing present throughout treatment. BP remained WNL and oxygen sats were at 99-100% throughout treatment. Assessment Pt did tolerate the treatment well and managed to remain calm during treatment. Vitals remained stable and WNL throughout. Pt able to stay in position approx 30 minutes and was able to participate in Passive activity as well as light LE activity. Pt is cooperative and pleasant. PT Transcribing Operator Head Goals Transcribing Operator Head Goals PT Snf Goals Time Frame: May 13, 2017 Transfers (B,C,W/C) (FIM): 4 Gait (FIM): 2 Gait distance (FIM): 1=up to 49 ft Gait Assistive Device: FWW PT Plan Problem List Problem List: Activity Tolerance, Functional Strength Treatment/Plan Treatment Plan: Continue Plan of Care Treatment Plan: Bed Mobility, Education, Functional Activity Carlos A, Functional Strength, Gait, Safety, Therapeutic Exercise, Transfers Treatment Duration: May 13, 2017 Visits Per Week: 5-11 Safety Risks/Education Education on importance of progression of therapy and she nods to acknowledge understanding. Time/GCodes Time In: 835 Time Out: 904 Total Billed Treatment Time: 39 Total Billed Treatment visit EX 14 FA 25 LILY MATTHEWS PT May 08, 2017 10:33
--- NOTE | 2017-05-08 11:48 | Progress Note-Hospitalist ---
Progress Note HPI/CC on Admission CC: Management of critical illness with acute peritonitis due to bowel perforation with aspiration of bowel contents during intubation HPI: This is a 61-year-old white female clinic patient of Dr. 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 Apparently she was wanting to go to [place] and used to suppository like she usually does because she is struggle with constipation since cardiac meds have been initiated several years ago but at noon time she started having a lot of pain to the extent that required emergency room evaluation. CT scan was obtained found to have bowel perforation with peritonitis and during intubation for surgery she aspirated bowel contents so she now has a diverting colostomy but the pictures during surgery appeared to have a multitude of impacted bowel contents within the abdominal cavity. I did speak with Dr. Horvath her primary care provider and employer and it appears that she is not up-to-date on her colonoscopy and has not had one before and she has had significant constipation issues for the past several years so I hypothesized that impacted stool has been an ongoing problem for her probably stretching the tissue over a long period time and finally rupturing causing this critical illness. She is requiring high doses of Levophed and closely monitoring due to severe sepsis and multisystem organ failure. She has received aggressive IV fluids per protocol and currently monitor closely due to history of arrhythmia maintained on Rythmol as an outpatient. She sees Dr. Ku cardiology at [place] after she failed undergoing ablation up in [place] years ago. I have consulted cardiology and motor runner and eICU to facilitate management of this critically ill patient. Progress Notes/Assess & Plan Date Seen 05/08/17 Time Seen by Provider: 09:15 Admission Dx/Process Assessment: Acute peritonitis from colonic perforation with impacted stool with history of severe chronic constipation status post diverting colostomy POD # 1 Aspiration of bowel contents during intubation for surgery with ventilator- dependent respiratory failure currently History of SVT/AF status post attempted ablation an unsuccessful maintained on Rythmol by Dr. 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 Pt's states that she requested that he squeeze her hands. He was informed that because of her fluids the massaging can help with the pain. No fever, vital signs stable much improved 130/82, much improved, O x 3, anxious Family at the bedside RRR, Coarse breath sounds now resolved Colostomy in place tracheostomy in place Laboratory Tests 05/08/17 04:50 Assessment: Acute peritonitis from colonic perforation with impacted stool with long history of severe chronic constipation status post diverting colostomy POD # 8 with septic shock requiring pressors and aggressive IVF management now improved and more stable but but unable to extubate as tentatively planned but will begin the wean process after trach placed yesterday POD # 1 Aspiration of bowel contents during intubation for surgery with ventilator- dependent respiratory failure currently maintained on Meropenem and s/p Diflucan History of SVT status post attempted ablation and unsuccessful maintained on Rythmol by Dr. Ku cardiology [place] consulted Dr Nettles and his recs are appreciated and had an episode of AF last week resolved with suctioning History of hypertension Hypothyroidism Leukopenia due to sepsis now leukocytosis Hypokalemia replacing Metabolic acidosis due to sepsis Thrombocytopenia due to sepsis improved Anemia likely affiliated due to phlebotomy Plan: Replace potassium per protocol Maintain ventilator and appreciate Dr Causey's expertise Empiric antibiotics for peritonitis and aspiration of bowel contents Cardiology recs are appreciated Monitor labs Maintain colostomy SCDs TPN Stable but guarded Touch base with Dr. Causey regarding extubation plans Increase Morphine dosage Scribed by Teresita Hathaway under the direct supervision of Dr. Rome. DAVY ROME DO May 08, 2017 11:48
--- NOTE | 2017-05-08 11:52 | Progress Note-Standard ---
Standard Progress Note Progress Notes/Assess & Plan Date Seen by Provider: May 08, 2017 Time Seen by Provider: 11:44 Progress/Assessment & Plan 04/26/17:septic with severe leukopenia. Very poor urine output. On dual vasopressors. Sinus tachycardia. Outcome poor with expected mortality. Central venous pressure around 12. We'll continue to provide fluid resuscitation and maintain vasopressors for now. 04/27/17:continues to require vasopressor support. Urine output reasonable. Creatinine slightly elevated. Ventilation and oxygenation stable. Will place a wound VAC tomorrow. Continue supportive abdomen. Enteral nutrition in 24- 48 hours. DVT prophylaxis with low molecular weight heparin, renally adjusted dose 04/28/17:off the vasopressors. Renal function reasonable.NG output more than 1 L and therefore tube feeding will be delayed.electrolytes satisfactory.we'll continue current management. 04/29/17:Improving. Would facilitate diuresis before embarking on extubation. Intra-abdominal abscesses to be looked for by next week. L femoral arterial line satisfactory with no distal ischemia. Nutritional support in 24-48 hours. 04/30/17:slight change in her condition with decreased urine output and leukocytosis. Abdominal abscess in evolution very likely the culprit. More opacification of the right lung. We will try enteral feeding. Continue antibiotics 05/01/17 Diuresis in progress. Pressure mattress appropriate to prevent skin breakdown. Fascia intact. Tolerating tube feeds. Vent weaning over terrie next 24- 48 hours. HIT antibodies negative 05/04/17: Reintubated. Anasarca improved. Fascia intact. Intra-abdominal abscesses to be expected. CT scan in 48 hours. Tracheostomy discussed with the family and planned for this week 05/05/17:CONTINUES TO IMPROVE. pOOR MUSCLE STRENGTH. tRACHEOSTOMY IN [address] SCAN TOMORROW MORNING. 05/06/17:Intra-abdominal and pelvic abscesses drained percutaneously. Tracheostomy tomorrow. 05/08/17: Anxious and tearful, expected. Jejunal feeding in progress. Possible pseudomonas in cultures. Vent weaning initiated Final Diagnosis Fecal peritonitis MACY TALAVERA MD May 08, 2017 11:52 am
--- NOTE | 2017-05-08 14:17 | Anesthesia-General Post-Op ---
General Patient Condition Mental Status/LOC: Same as Preop Cardiovascular: Satisfactory Nausea/Vomiting: Absent Respiratory: Satisfactory Pain: Controlled Complications: Absent Post Op Complications Complications None Follow Up Care/Instructions Patient Instructions None needed. Anesthesia/Patient Condition Patient Condition Patient is doing reasonably well, no complaints, stable vital signs, no apparent adverse anesthesia problems. Tolerated ventilator assistance currently. RY IBRAHIM DO May 08, 2017 14:17
[2017-05-08] MEDS: ENOXAPARIN 40 MG/0.4 ML (LOVENOX) SYR SC SCH (14:32)
--- NOTE | 2017-05-08 15:20 | Occupational Ther Daily Note ---
OT Current Status-Daily Note Subjective Pt in bed, opens eyes and nods head "yes" when asked to participate in therapy. Pt mouths "no" when asked if she was having any pain. Mental Status/Objective Functional [place] Measure 0=Not Assessed/NA 4=Minimal Assistance 1=Total Assistance 5=Supervision or Setup 2=Maximal Assistance 6=Modified [place] 3=Moderate Assistance 7=Complete [place] Other Treatment Pt participated in UE ROM exercises to promote increased strength and activity tolerance needed for functional task completion. ROM completed x10 reps in all planes. Did not address left wrist secondary to brace in place. Pt does actively participate in ROM minimally as tolerated. Pt resting in bed with needs met and visitors present after session. Continue POC and increase activity as tolerated. OT Short Term Goals Short Term Goals 1=Demonstrate adherence to instructed precautions during ADL tasks. 2=Patient will verbalize/demonstrate understanding of assistive devices/ modifications for ADL. 3=Patient will improve strength/tolerance for activity to enable patient to perform ADL's. OT Medical Sales Representative Goals Medical Sales Representative Goals Time Frame: May 18, 2017 - Decrease edema to allow functional use bilat UEs. - Increase functional use UEs - Increase participation in basic self care as pt status changes Additional Goals: 3-ImproveStrength/Carlos A 1=Demonstrate adherence to instructed precautions during ADL tasks. 2=Patient will verbalize/demonstrate understanding of assistive devices/ modifications for ADL. 3=Patient will improve strength/tolerance for activity to enable patient to perform ADL's. OT Education/Plan Problem List/Assessment Pt would benefit from skilled OT to help increase functional use of bilat UEs and independence in basic self care to decrease caregiver burden and assist with discharge planning Discharge Recommendations Plan/Recommendations: Continue POC Treatment Plan/Plan of Care Patient would benefit from OT for education, treatment and training to promote independence in ADL's, mobility, safety and/or upper extremity function for ADL' s. Plan of Care: ADL Retraining (when appropriate), UE Funct Exercise/Act, UE Neuromus Re-Ed/Coord Treatment Duration: May 18, 2017 Visits Per Week: 5 Agreement: No (pt unable to participate in decision making. No family present) Rehab Potential: Guarded Time/GCodes Start Time: 14:18 Stop Time: 14:28 Total Time Billed (hr/min): 10 Billed Treatment Time 1 visit, EX(10minutes) HUMAIRA MOSER OT May 08, 2017 15:20
[2017-05-08] MEDS: meTOprolol TARTRATE 25 MG (LOPRESSOR) TABLET PO SCH (21:45)
[2017-05-09] VITALS (37 sets, daily range): BP systolic 101–241; BP diastolic 34–82
[2017-05-09] MEDS: metroNIDAZOLE 500MG/100ML IVPB 100 ML IV SCH ×3 (00:21→17:17)
[2017-05-09] MEDS: METOCLOPRAMIDE INJ 10 MG/2 ML (REGLAN) IVP SCH ×5 (00:21→23:40)
[2017-05-09] MEDS: RT-ALBUTEROL/IPRATROPIUM 3 ML (DUONEB) VIAL INH SCH ×3 (02:07→18:19)
[2017-05-09] MEDS: morphine INJ 4 MG/ML 1 ML (VIAL/SYRINGE) IVP PRN ×8 (05:02→23:43)
[2017-05-09] MEDS: POTASSIUM CHLORIDE IV SCH (05:03)
[2017-05-09] MEDS: DEXMEDETOMIDINE INJECTION 200 MCG in NS (IVPB) 50 ML IV SCH ×3 (05:03→20:12)
[2017-05-09] MEDS: D5W IV SCH (05:03)
[2017-05-09 05:14] LABS: ABG BASE EXCESS -0.3 MMOL/L (-2.5-2.5); ABG HCO3 25 MMOL/L (23-27); ABG OXYGEN SATURATION 97 % (94-100); ABG PCO2 50 MMHG (35-45); ABG PO2 92 MMHG (79-93); ABG TCO2 26.3 MMOL/L (21.0-31.0)
[2017-05-09 05:17] LABS: ALLENS TEST ART LINE; PATIENT TEMP 100.2
[2017-05-09 05:18] LABS: ABG PH 7.32 (7.37-7.43)
[2017-05-09 05:30] LABS: BASOPHILS % (AUTO) 0 % (0-10); EOSINOPHILS # (AUTO) 0.1 10^3/uL (0.0-0.3); EOSINOPHILS % (AUTO) 1 % (0-10); LYMPHOCYTES # (AUTO) 0.7 X 10^3 (1.0-4.0); LYMPHOCYTES % (AUTO) 4 % (12-44); MEAN CORPUSCULAR HEMOGLOBIN 29 PG (25-34); MEAN CORPUSCULAR HGB CONC 31 G/DL (32-36); MEAN CORPUSCULAR VOLUME 93 FL (80-99); MEAN PLATELET VOLUME 10.4 FL (7.4-10.4); MONOCYTES # (AUTO) 0.8 X 10^3 (0.0-1.0); MONOCYTES % (AUTO) 5 % (0-12); NEUTROPHILS # (AUTO) 14.2 X 10^3 (1.8-7.8); NEUTROPHILS % (AUTO) 90 % (42-75); PLATELET COUNT 443 10^3/uL (130-400); RED BLOOD COUNT 2.62 10^6/uL (4.35-5.85); RED CELL DISTRIBUTION WIDTH 14.1 % (10.0-14.5); WHITE BLOOD COUNT 15.7 10^3/uL (4.3-11.0)
[2017-05-09 05:37] LABS: ANION GAP 7 MMOL/L (5-14); BLOOD UREA NITROGEN 20 MG/DL (7-18); BUN/CREATININE RATIO 40; CALCIUM 7.3 MG/DL (8.5-10.1); CARBON DIOXIDE 23 MMOL/L (21-32); CHLORIDE 112 MMOL/L (98-107); GFR ESTIMATED > 60; GLUCOSE 133 MG/DL (70-105); MAGNESIUM 1.6 MG/DL (1.8-2.4); POTASSIUM 4.2 MMOL/L (3.6-5.0); SODIUM 142 MMOL/L (135-145)
[2017-05-09] MEDS ORDERED: hydrALAZINE (APESOLINE) 20 MG/ML VIAL ONE (05:42)
[2017-05-09] MEDS ORDERED: meTOprolol 5 MG/5 ML (LOPRESSOR) VIAL ONE (05:42)
[2017-05-09] MEDS: aCETylcysteine 20% (MUCOMYST) 30ML SOLN VIAL INH SCH ×3 (06:03→21:55)
[2017-05-09] MEDS: RT-ALBUTEROL SULF 2.5 MG/3 ML PRE-MIX VIAL IH SCH ×3 (06:03→21:55)
[2017-05-09] MEDS: POTASSIUM CL 10MEQ/50ML IVPB 50 ML IV SCH (06:23)
[2017-05-09] MEDS: KCL 20 MEQ TAB (K-DUR) PO SCH (06:23)
[2017-05-09] MEDS: MAGNESIUM 1 GM/100 ML IVPB 100 ML IV SCH ×3 (06:23→09:18)
[2017-05-09] MEDS: PIPERACILLIN SODIUM/TAZOBACTAM 4.5 GM in NS (IVPB) 100 ML IV SCH ×3 (06:33→22:23)
[2017-05-09] MEDS ORDERED: meTOprolol 5 MG/5 ML (LOPRESSOR) VIAL IV ONE (06:45)
[2017-05-09] MEDS ORDERED: hydrALAZINE (APESOLINE) 20 MG/ML VIAL IV ONE (06:45)
[2017-05-09 08:36] LABS: ABG BASE EXCESS -1.7 MMOL/L (-2.5-2.5); ABG HCO3 25 MMOL/L (23-27); ABG OXYGEN SATURATION 90 % (94-100); ABG PCO2 63 MMHG (35-45); ABG PO2 69 MMHG (79-93)
[2017-05-09 08:37] LABS: ABG PH 7.22 (7.37-7.43); ALLENS TEST ART LINE; PATIENT TEMP 98.2
[2017-05-09] MEDS ORDERED: LORazepam INJ 2 MG/ML (ATIVAN) VIAL ONE (09:11)
[2017-05-09] MEDS: FLUCONAZOLE 100 MG/50 ML 50 ML IV SCH (09:11)
[2017-05-09] MEDS: NS IV SCH (09:11)
[2017-05-09] MEDS: CATHETER FLUSH 10 ML SYR IV SCH ×2 (09:11→20:14)
[2017-05-09] MEDS: GENTAMICIN IV SCH (09:11)
[2017-05-09] MEDS: AMIODARONE 200 MG (CORDARONE) TAB PO SCH (09:12)
[2017-05-09] MEDS: meTOprolol TARTRATE 25 MG (LOPRESSOR) TABLET PO SCH ×2 (09:12→20:43)
[2017-05-09] MEDS: LEVOTHYROXINE 100 MCG INJ (SYNTHROID) VIAL IV SCH (09:12)
[2017-05-09] MEDS: FUROSEMIDE 40 MG/4 ML INJ (LASIX) IVP SCH (09:12)
[2017-05-09] MEDS: PANTOPRAZOLE 40 MG/10 ML (PROTONIX) VIAL IVP SCH (09:17)
[2017-05-09] MEDS: LORazepam INJ 2 MG/ML (ATIVAN) VIAL IVP PRN ×4 (09:21→23:40)
[2017-05-09 10:30] LABS: ABG BASE EXCESS -1.5 MMOL/L (-2.5-2.5); ABG HCO3 24 MMOL/L (23-27); ABG OXYGEN SATURATION 98 % (94-100); ABG PCO2 53 MMHG (35-45); ABG PO2 110 MMHG (79-93); ABG TCO2 25.5 MMOL/L (21.0-31.0)
[2017-05-09 10:31] LABS: ABG PH 7.28 (7.37-7.43); ALLENS TEST ARTLINE; PATIENT TEMP 100.8
--- NOTE | 2017-05-09 10:46 | Progress Note ---
Subjective Time Seen by Provider: 10:32 Subjective/Events-last exam Pt seen and examined, on vent with tube feeds going down NGT. Pt unfortunately failed weaning this am. Appears comfortable. Review of Systems General: Fatigue, Malaise Pulmonary: Other (on vent, failed weaning.....more alert now back on Assist control) Objective Exam Vital Signs Date Time Temp Pulse Resp B/P (MAP) Pulse Ox O2 Delivery O2 Flow Rate FiO2 05/09/17 10:18 97 21 99 30 05/09/17 08:29 117 23 96 30 05/09/17 07:18 102 27 100 30 05/09/17 06:04 100 30.00 05/09/17 06:04 90 23 100 30 05/09/17 06:00 80 22 178/44 100 Mechanical Ventilator 30.00 05/09/17 05:00 105 21 197/47 100 Mechanical Ventilator 30.00 05/09/17 04:07 102 23 100 30 05/09/17 04:00 100 Mechanical Ventilator 30 05/09/17 04:00 100.2 101 22 177/43 100 Mechanical Ventilator 30.00 05/09/17 03:00 101 18 147/39 100 Mechanical Ventilator 30.00 05/09/17 02:08 105 16 100 30 05/09/17 02:00 89 18 134/38 100 Mechanical Ventilator 30.00 05/09/17 01:00 90 05/09/17 01:00 92 17 107/37 100 Mechanical Ventilator 30.00 05/09/17 00:09 91 17 100 30 05/09/17 00:00 92 16 108/37 100 Mechanical Ventilator 30.00 05/09/17 00:00 100 Mechanical Ventilator 30 05/08/17 23:00 98 14 97/36 100 Mechanical Ventilator 30.00 05/08/17 22:20 100 15 100 30 05/08/17 22:00 101 14 178/46 100 Mechanical Ventilator 30.00 05/08/17 21:51 104 05/08/17 21:00 107 17 204/61 100 Mechanical Ventilator 30.00 05/08/17 20:01 104 19 100 30 05/08/17 20:00 100 Mechanical Ventilator 30 05/08/17 20:00 107 18 157/49 100 Mechanical Ventilator 30.00 05/08/17 20:00 100.0 05/08/17 19:00 111 05/08/17 19:00 112 20 190/60 100 Mechanical Ventilator 30.00 05/08/17 18:29 89 21 100 30 05/08/17 18:00 85 17 182/59 100 Mechanical Ventilator 30.00 05/08/17 17:00 94 22 178/62 94 Mechanical Ventilator 30.00 05/08/17 16:09 85 20 100 30 05/08/17 16:00 97 18 171/54 100 Mechanical Ventilator 30.00 05/08/17 16:00 99.0 05/08/17 16:00 100 30 05/08/17 15:00 102 22 173/57 100 Mechanical Ventilator 30.00 05/08/17 14:20 86 23 98 30 05/08/17 14:00 92 19 129/50 100 Mechanical Ventilator 30.00 05/08/17 13:03 78 22 100 30 05/08/17 13:00 80 05/08/17 13:00 82 20 179/53 100 Mechanical Ventilator 30.00 05/08/17 12:00 100 30 05/08/17 11:00 55 129/60 Mechanical Ventilator 30.00 I & O 05/09/17 07:00 Intake Total 1217 ml Output Total 3135 ml Balance -1918 ml Capillary Refill : Less Than 3 Seconds General Appearance: Chronically ill, Mild Distress, Other (pt is comfortable on vent ) Neck: Limited Range of Motion Respiratory: Accessory Muscle Use, Decreased Breath Sounds (at bases), Other ( increased respiratory rate, on vent) Cardiovascular: Irregularly Irregular Gastrointestinal: soft, tenderness Neurologic/Psychiatric: Alert Skin: Pallor Results Lab Laboratory Tests 05/08/17 19:00: Random Gentamicin Level 4.5 05/08/17 19:07: Glucometer 122H 05/09/17 05:05: White Blood Count 15.7H, Red Blood Count 2.62L, Hemoglobin 7.5L, Hematocrit 24L , Mean Corpuscular Volume 93, Mean Corpuscular Hemoglobin 29, Mean Corpuscular Hemoglobin Concent 31L, Red Cell Distribution Width 14.1, Platelet Count 443H, Mean Platelet Volume 10.4, Neutrophils (%) (Auto) 90H, Lymphocytes (%) (Auto) 4L , Monocytes (%) (Auto) 5, Eosinophils (%) (Auto) 1, Basophils (%) (Auto) 0, Neutrophils # (Auto) 14.2H, Lymphocytes # (Auto) 0.7L, Monocytes # (Auto) 0.8, Eosinophils # (Auto) 0.1, Basophils # (Auto) 0.0, Blood Gas Puncture Site [place] , Blood Gas Patient Temperature 100.2, Arterial Blood pH 7.32*L, Arterial Blood Partial Pressure CO2 50H, Arterial Blood Partial Pressure O2 92, Arterial Blood HCO3 25, Arterial Blood Total CO2 26.3, Arterial Blood Oxygen Saturation 97, Arterial Blood Base Excess -0.3, Brannon Test ART LINE, Blood Gas Ventilator Setting YES, Blood Gas Inspired Oxygen 30%, Sodium Level 142, Potassium Level 4.2, Chloride Level 112H, Carbon Dioxide Level 23, Anion Gap 7, Blood Urea Nitrogen 20H, Creatinine 0.50L, Estimat Glomerular Filtration Rate > 60, BUN/ Creatinine Ratio 40, Glucose Level 133H, Calcium Level 7.3L, Phosphorus Level 3.0, Magnesium Level 1.6L 05/09/17 08:20: Blood Gas Puncture Site [facility], Blood Gas Patient Temperature 98.2, Arterial Blood pH 7.22*L, Arterial Blood Partial Pressure CO2 63H, Arterial Blood Partial Pressure O2 69L, Arterial Blood HCO3 25, Arterial Blood Total CO2 27.0, Arterial Blood Oxygen Saturation 90L, Arterial Blood Base Excess -1.7, Brannon Test ART LINE, Blood Gas Ventilator Setting YES, Blood Gas Inspired Oxygen 30% 05/09/17 10:25: [facility], Blood Gas Patient Temperature 100.8, Arterial Blood pH 7.28*L, Arterial Blood Partial Pressure CO2 53H, Arterial Blood Partial Pressure O2 110H, Arterial Blood HCO3 24, Arterial Blood Total CO2 25.5 , Arterial Blood Oxygen Saturation 98, Arterial Blood Base Excess -1.5, Brannon Test ARTLINE, Blood Gas Ventilator Setting YES, Blood Gas Inspired Oxygen 30% Microbiology 04/30/17 Blood Culture - Final, Complete No growth 05/04/17 Gram Stain - Final, Complete 05/04/17 Sputum Culture - Final, Complete Acinetobacter Baumanii See Comments Presumptive Ivy Albicans 05/06/17 Gram Stain - Final, Resulted 05/06/17 Anaerobic Culture - Preliminary, Resulted No growth 05/06/17 Surgical Culture - Preliminary, Resulted No growth Assessment/Plan Assessment/Plan Assessment/Plan s/p sigmoid colon resection and colostomy secondary perforated colon. Respiratory failure on vent, with bacteria confirmed on culture receiving Gentamycin Abscess positive for Pseudomonas (sensitive to Gentamycin) Anemia - may need to transfuse if it continues to drop Max medical management. Clinical Quality Measures DVT/VTE Risk/Contraindication: Risk Factor Score Per Nursin RFS Level Per Nursing on Admit: 4+=Very High TRIP SANTIAGO DO May 09, 2017 10:46
--- NOTE | 2017-05-09 10:58 | Cardiology Progress Note ---
Subjective Date Seen by Provider: May 09, 2017 Time Seen by Provider: 10:51 Subjective/Events-last exam Patient is in bed, vent dependent, trached, failed weaning this morning, she became tachycardic and anxious, blood pressure was elevated, currently better, settling down, heart rate is controlled. Denied any pain. Review of Systems General: No Chills, No Night Sweats, Fatigue, Malaise, No Appetite, No Other HEENT: Other Pulmonary: Other (tracheostomy and ventilatory dependent) Cardiovascular: No: Chest Pain, Edema, Lt Headedness, Orthopnea, Other, Palpitations, Paroxysmal Noc. Dyspnea Objective-Cardiology Exam Last Set of Vital Signs Vital Signs 05/09/17 05/09/17 05/09/17 04:00 06:00 10:18 Temp 100.2 Pulse 97 Resp 21 B/P (MAP) 178/44 Pulse Ox 99 O2 Delivery Mechanical Ventilator FiO2 30 Capillary Refill : Less Than 3 Seconds I&O Intake and Output 05/09/17 00:00 Intake Total 815 ml Output Total 3185 ml Balance -2370 ml IV Total 100 ml Tube Feeding 715 ml Output Urine Total 2855 ml Stool Total 250 ml Drainage Total 80 ml # Urine Diapers 250 General: Alert, Oriented X3, Cooperative, Moderate Distress HEENT: Atraumatic, PERRLA Neck: Supple, No JVD, No Thyromegaly Lungs: Normal Air Movement, Other (bilateral rhonchi) Heart: Regular Rate, Normal S1, Normal S2, No Murmurs Abdomen: Normal Bowel Sounds, Soft, No Tenderness, No Hepatosplenomegaly, No Masses Extremities: No Clubbing, No Cyanosis, Normal Pulses, No Tenderness/Swelling, Other (edema) Skin: No Rashes, No Breakdown, No Significant Lesion Neuro: Normal Tone Psych/Mental Status: Mood NL Results Lab Laboratory Tests 05/09/17 05:05 A/P-Cardiology Admission Diagnosis peritonitis Paroxysmal atrial fibrillation Nonsustained ventricular tachycardia Respiratory failure Assessment/Plan Large bowel perforation status post emergent abdominal surgery by Dr. Ng, recovering slowly. Continue to monitor. Managed by primary care physician magento web developer. Respiratory failure, ventilator dependent, tracheostomy, failed attempt for extubation today. Continue with weaning parameters. Paroxysmal atrial fibrillation, currently in sinus rhythm, continue to monitor on telemetry, no changes are recommended Status post nonsustained ventricular tachycardia, probably due to sepsis, currently on amiodarone and metoprolol through NG tube. Continue to monitor. Transient episode of sinus tachycardia with hypertension during attempt for weaning. Recovered. Continue to monitor. No changes are recommended. Status post septic shock, still having some leukocytosis but overall improving. Continue to monitor Status post acute left ventricular diastolic dysfunction, congestive heart failure, normal ejection fraction on echocardiogram, received Lasix and improved. Continue to monitor. Clinical Quality Measures DVT/VTE Risk/Contraindication: Risk Factor Score Per Nursin RFS Level Per Nursing on Admit: 4+=Very High RUI PATE MD May 09, 2017 10:58
--- NOTE | 2017-05-09 11:06 | Diagnostic Imaging Report ---
INDICATION: Respiratory failure. Comparison made with prior examination 05/08/2017. FINDINGS: There is cardiomegaly. There are bibasilar infiltrates more consolidated in the left. There is a left pleural effusion. No pneumothorax. Lines and tubes are in satisfactory position. Mediastinum is unremarkable. IMPRESSION: Bibasilar infiltrates more consolidated on the left with a left pleural effusion. Cardiomegaly and mild central pulmonary venous congestion. Dictated by: Dictated on workstation # [id number]
--- NOTE | 2017-05-09 11:23 | Progress Note-Hospitalist ---
Subjective HPI/CC On Admission Date Seen by Provider: May 09, 2017 Time Seen by Provider: 08:00 CC: Management of critical illness with acute peritonitis due to bowel perforation with aspiration of bowel contents during intubation HPI: This is a 61-year-old white female clinic patient of Dr. 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 Apparently she was wanting to go to [place] and used to suppository like she usually does because she is struggle with constipation since cardiac meds have been initiated several years ago but at noon time she started having a lot of pain to the extent that required emergency room evaluation. CT scan was obtained found to have bowel perforation with peritonitis and during intubation for surgery she aspirated bowel contents so she now has a diverting colostomy but the pictures during surgery appeared to have a multitude of impacted bowel contents within the abdominal cavity. I did speak with Dr. Horvath her primary care provider and employer and it appears that she is not up-to-date on her colonoscopy and has not had one before and she has had significant constipation issues for the past several years so I hypothesized that impacted stool has been an ongoing problem for her probably stretching the tissue over a long period time and finally rupturing causing this critical illness. She is requiring high doses of Levophed and closely monitoring due to severe sepsis and multisystem organ failure. She has received aggressive IV fluids per protocol and currently monitor closely due to history of arrhythmia maintained on Rythmol as an outpatient. She sees Dr. Ku cardiology at [place] after she failed undergoing ablation up in [place] years ago. I have consulted cardiology and feltmaker and eICU to facilitate management of this critically ill patient. 05/09/17 patient became quite anxious and hypertensive during pressure support trial apparently rather abruptly occurred and nursing staff. O2 saturations dropped to the 70s with altered mental status. There have been no change in medications associated with this. She was taken off of pressure support and placed back on mechanical ventilation. She is ventilating easily time of my arrival eyes were open pupils were 5 mm symmetrical and reactive but the patient was not responsive. She was moving all extremities. Objective Exam Vital Signs Vital Sign - Last 12Hours 05/03/17 05/03/17 05/05/17 00:00 00:01 11:21 Temp 97.6 Pulse 87 Resp 27 B/P (MAP) 163/63 Pulse Ox 100 O2 Delivery Mechanical Ventilator O2 Flow Rate 21.00 FiO2 21 Capillary Refill : Less Than 3 Seconds General Appearance: Chronically ill, Mild Distress Neck: Full Range of Motion, Normal Inspection Respiratory: Other (scattered rhonchi without wheezing. Breath sounds are equal bilaterally) Cardiovascular: Regular Rate, Rhythm, No Edema, No Gallop, No JVD, Normal Peripheral Pulses, Other (1 to 2/6 systolic ejection murmur heard at the left lower sternal border.) Gastrointestinal: Other (no significant abdominal distention is noted. Bowel sounds are not noted. Abdomen diffusely firm. Multiple drains present without any skin changes erythema induration etc. to suggest Skin infection.) Extremity: Other Neurologic/Psychiatric: Disoriented x3 Results/Procedures Lab Laboratory Tests 05/09/17 05:05 Assessment/Plan Assessment and Plan Assess & Plan/Chief Complaint 1. Acute exacerbation of respiratory failure manifesting as increase in CO2 retention acidosis and altered mental status. Likely due to combination of anxiety possible mucous plugging. Chest x-ray is little different and patient' s oxygen saturation is returning to baseline we'll continue to monitor. Will rest for the rest of the day in regards to pressure support and defer to Dr. Causey. 2. Intestinal perforation with peritonitis and intra-abdominal abscess formation with secondary sepsis overall there had been some slow improvement continue broad-spectrum antibiotics and daily lab tests monitoring. SUNDAR BOURNE MD May 09, 2017 11:23
--- NOTE | 2017-05-09 12:21 | Physical Therapy Progress Note ---
Therapy Progress Note Pt on hold per nursing at 0830. MILI ESPARZA PT May 09, 2017 12:21
[2017-05-09] MEDS: ENOXAPARIN 40 MG/0.4 ML (LOVENOX) SYR SC SCH (14:31)
[2017-05-09] MEDS ORDERED: NS IV SCH (18:00)
[2017-05-09] MEDS ORDERED: GENTAMICIN IV SCH (18:00)
[2017-05-10] VITALS (39 sets, daily range): BP systolic 107–213; BP diastolic 34–82
[2017-05-10] MEDS: metroNIDAZOLE 500MG/100ML IVPB 100 ML IV SCH ×3 (00:19→17:23)
[2017-05-10] MEDS: DEXMEDETOMIDINE INJECTION 200 MCG in NS (IVPB) 50 ML IV SCH ×5 (01:27→21:42)
[2017-05-10] MEDS: morphine INJ 4 MG/ML 1 ML (VIAL/SYRINGE) IVP PRN ×6 (01:55→21:49)
[2017-05-10] MEDS: RT-ALBUTEROL/IPRATROPIUM 3 ML (DUONEB) VIAL INH SCH ×3 (02:08→18:14)
[2017-05-10] MEDS: POTASSIUM CHLORIDE IV SCH ×2 (03:08→23:17)
[2017-05-10] MEDS: D5W IV SCH ×2 (03:08→23:17)
[2017-05-10 04:29] LABS: ABG BASE EXCESS -0.4 MMOL/L (-2.5-2.5); ABG HCO3 25 MMOL/L (23-27); ABG OXYGEN SATURATION 97 % (94-100); ABG PCO2 49 MMHG (35-45); ABG PO2 80 MMHG (79-93); ABG TCO2 26.3 MMOL/L (21.0-31.0)
[2017-05-10 04:37] LABS: ALLENS TEST ART LINE; PATIENT TEMP 98.6
[2017-05-10 04:39] LABS: ABG PH 7.32 (7.37-7.43)
[2017-05-10 04:42] LABS: BASOPHILS % (AUTO) 0 % (0-10); EOSINOPHILS # (AUTO) 0.1 10^3/uL (0.0-0.3); EOSINOPHILS % (AUTO) 1 % (0-10); LYMPHOCYTES # (AUTO) 0.9 X 10^3 (1.0-4.0); LYMPHOCYTES % (AUTO) 7 % (12-44); MEAN CORPUSCULAR HEMOGLOBIN 28 PG (25-34); MEAN CORPUSCULAR HGB CONC 31 G/DL (32-36); MEAN CORPUSCULAR VOLUME 93 FL (80-99); MEAN PLATELET VOLUME 10.4 FL (7.4-10.4); MONOCYTES # (AUTO) 0.7 X 10^3 (0.0-1.0); MONOCYTES % (AUTO) 5 % (0-12); NEUTROPHILS # (AUTO) 11.7 X 10^3 (1.8-7.8); NEUTROPHILS % (AUTO) 87 % (42-75); PLATELET COUNT 402 10^3/uL (130-400); RED BLOOD COUNT 2.57 10^6/uL (4.35-5.85); RED CELL DISTRIBUTION WIDTH 13.9 % (10.0-14.5); WHITE BLOOD COUNT 13.5 10^3/uL (4.3-11.0)
[2017-05-10 04:53] LABS: ANION GAP 7 MMOL/L (5-14); BLOOD UREA NITROGEN 23 MG/DL (7-18); BUN/CREATININE RATIO 43; CALCIUM 7.5 MG/DL (8.5-10.1); CARBON DIOXIDE 22 MMOL/L (21-32); CHLORIDE 111 MMOL/L (98-107); CREATININE SERUM 0.53 MG/DL (0.60-1.30); GFR ESTIMATED > 60; GLUCOSE 128 MG/DL (70-105); MAGNESIUM 1.7 MG/DL (1.8-2.4); PHOSPHORUS 3.8 MG/DL (2.3-4.7); POTASSIUM 4.8 MMOL/L (3.6-5.0); SODIUM 140 MMOL/L (135-145)
[2017-05-10] MEDS ORDERED: TROUGH ORDER-PHARMACY XX NR (05:00)
[2017-05-10] MEDS: KCL 20 MEQ TAB (K-DUR) PO SCH (05:13)
[2017-05-10] MEDS: POTASSIUM CL 10MEQ/50ML IVPB 50 ML IV SCH (05:13)
[2017-05-10] MEDS: MAGNESIUM 1 GM/100 ML IVPB 100 ML IV SCH ×3 (05:13→06:27)
[2017-05-10] MEDS: PIPERACILLIN SODIUM/TAZOBACTAM 4.5 GM in NS (IVPB) 100 ML IV SCH ×3 (06:27→23:12)
[2017-05-10] MEDS: METOCLOPRAMIDE INJ 10 MG/2 ML (REGLAN) IVP SCH ×3 (06:30→17:22)
[2017-05-10] MEDS: RT-ALBUTEROL SULF 2.5 MG/3 ML PRE-MIX VIAL IH SCH ×3 (06:33→21:59)
[2017-05-10] MEDS: aCETylcysteine 20% (MUCOMYST) 30ML SOLN VIAL INH SCH ×3 (06:33→22:00)
[2017-05-10] MEDS: LORazepam INJ 2 MG/ML (ATIVAN) VIAL IVP PRN ×3 (09:18→23:08)
[2017-05-10] MEDS: LEVOTHYROXINE 100 MCG INJ (SYNTHROID) VIAL IV SCH (09:18)
[2017-05-10] MEDS: FLUCONAZOLE 100 MG/50 ML 50 ML IV SCH (09:19)
[2017-05-10] MEDS: NS IV SCH (09:19)
[2017-05-10] MEDS: CATHETER FLUSH 10 ML SYR IV SCH ×2 (09:19→21:30)
[2017-05-10] MEDS: PANTOPRAZOLE 40 MG/10 ML (PROTONIX) VIAL IVP SCH (09:19)
[2017-05-10] MEDS: GENTAMICIN IV SCH (09:19)
[2017-05-10] MEDS: AMIODARONE 200 MG (CORDARONE) TAB PO SCH (09:19)
[2017-05-10] MEDS: FUROSEMIDE 40 MG/4 ML INJ (LASIX) IVP SCH (09:20)
[2017-05-10] MEDS: meTOprolol TARTRATE 25 MG (LOPRESSOR) TABLET PO SCH ×2 (09:20→21:30)
--- NOTE | 2017-05-10 09:53 | Progress Note-Hospitalist ---
Progress Note HPI/CC on Admission CC: Management of critical illness with acute peritonitis due to bowel perforation with aspiration of bowel contents during intubation HPI: This is a 61-year-old white female clinic patient of Dr. 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 Apparently she was wanting to go to [place] and used to suppository like she usually does because she is struggle with constipation since cardiac meds have been initiated several years ago but at noon time she started having a lot of pain to the extent that required emergency room evaluation. CT scan was obtained found to have bowel perforation with peritonitis and during intubation for surgery she aspirated bowel contents so she now has a diverting colostomy but the pictures during surgery appeared to have a multitude of impacted bowel contents within the abdominal cavity. I did speak with Dr. Horvath her primary care provider and employer and it appears that she is not up-to-date on her colonoscopy and has not had one before and she has had significant constipation issues for the past several years so I hypothesized that impacted stool has been an ongoing problem for her probably stretching the tissue over a long period time and finally rupturing causing this critical illness. She is requiring high doses of Levophed and closely monitoring due to severe sepsis and multisystem organ failure. She has received aggressive IV fluids per protocol and currently monitor closely due to history of arrhythmia maintained on Rythmol as an outpatient. She sees Dr. Ku cardiology at [place] after she failed undergoing ablation up in [place] years ago. I have consulted cardiology and structurer and eICU to facilitate management of this critically ill patient. 05/09/17 patient became quite anxious and hypertensive during pressure support trial apparently rather abruptly occurred and nursing staff. O2 saturations dropped to the 70s with altered mental status. There have been no change in medications associated with this. She was taken off of pressure support and placed back on mechanical ventilation. She is ventilating easily time of my arrival eyes were open pupils were 5 mm symmetrical and reactive but the patient was not responsive. She was moving all extremities. 05/10/17 patient is back to baseline state of anxiety and back to baseline levels of CO2 retention. She is resting comfortably upon my arrival and appears to be in no distress although when asked she always volunteers that she is having significant pain. Physical exam findings are unchanged from yesterday chest x-ray and labs are stableexcept for improved ABG levels compared to yesterday's distress levels. Progress Notes/Assess & Plan Date Seen 05/10/17 Time Seen by Provider: 08:00 Diagonsis/Assessment & Plan 1. Acute exacerbation of respiratory failure manifesting as increase in CO2 retention acidosis and altered mental status. Likely due to combination of anxiety possible mucous plugging. Chest x-ray is little different and patient' s oxygen saturation is returning to baseline we'll continue to monitor. Will rest for the rest of the day in regards to pressure support and defer to Dr. Causey. 2. Intestinal perforation with peritonitis and intra-abdominal abscess formation with secondary sepsis overall there had been some slow improvement continue broad-spectrum antibiotics and daily lab tests monitoring. 3. Situational anxiety exacerbating breathing trials consider IV Ativan prior to pressure support trial tomorrow. We'll let the patient rest today unless otherwise specified by Dr. Causey. SUNDAR BOURNE MD May 10, 2017 09:53
--- NOTE | 2017-05-10 10:52 | Cardiology Progress Note ---
Subjective Date Seen by Provider: May 10, 2017 Time Seen by Provider: 10:49 Subjective/Events-last exam patient is laying down in bed, ventilatory dependent through tracheostomy tube. Blood pressure is elevated, chest x-ray slightly worse Review of Systems General: No Chills, No Night Sweats, Fatigue, Malaise, No Appetite, No Other Pulmonary: Dyspnea Cardiovascular: Edema, No: Chest Pain, Lt Headedness, Orthopnea, Other, Palpitations, Paroxysmal Noc. Dyspnea Objective-Cardiology Exam Last Set of Vital Signs Vital Signs 05/10/17 05/10/17 08:00 10:34 Temp 100.7 Pulse 86 Resp 19 B/P (MAP) 172/68 144/72 Pulse Ox 100 O2 Delivery Mechanical Ventilator O2 Flow Rate 30.00 FiO2 30 Capillary Refill : Less Than 3 Seconds I&O Intake and Output 05/10/17 00:00 Intake Total 4088 ml Output Total 2375 ml Balance 1713 ml IV Total 532 ml Tube Feeding 3056 ml Other 500 ml Output Urine Total 2075 ml Stool Total 100 ml Urine/Stool Mix 100 ml Drainage Total 100 ml General: Alert, Moderate Distress HEENT: Atraumatic, PERRLA Neck: Supple, No JVD, No Thyromegaly Lungs: Normal Air Movement, Other (bilateral rhonchi) Heart: Regular Rate, Normal S1, Normal S2, No Murmurs Abdomen: Soft, No Masses, Other (diminished bowel sounds) Extremities: No Clubbing, No Cyanosis, Normal Pulses, No Tenderness/Swelling, Other (edema) Skin: No Rashes, No Breakdown, No Significant Lesion Neuro: Normal Tone Psych/Mental Status: Mood NL Results Lab Laboratory Tests 05/10/17 04:25 A/P-Cardiology Admission Diagnosis peritonitis Paroxysmal atrial fibrillation Nonsustained ventricular tachycardia Respiratory failure Assessment/Plan Large bowel perforation status post emergent abdominal surgery by Dr. Ng, recovering slowly, receiving antibiotic, persistent leukocytosis. Respiratory failure, ventilator dependent, tracheostomy, failed attempt for extubation, currently ventilator dependent. Managed by primary care physician and Dr. Causey Paroxysmal atrial fibrillation, currently in sinus rhythm, continue to monitor on telemetry, continue on amiodarone and metoprolol Anemia, slightly worse, receiving 2 units of packed RBCs today, continue to monitor H&H, no signs of active bleeding. Hypertension, persisted, probably due to anxiety, started on Ativan, continue to monitor blood pressure Status post nonsustained ventricular tachycardia, probably due to sepsis, currently on amiodarone and metoprolol through NG tube. Continue to monitor. Transient episode of sinus tachycardia with hypertension during attempt for weaning. Recovered. Continue to monitor. No changes are recommended. Status post septic shock, still having some leukocytosis but overall improving. Continue to monitor Status post acute left ventricular diastolic dysfunction, congestive heart failure, normal ejection fraction on echocardiogram, received Lasix and improved. Continue to monitor. Clinical Quality Measures DVT/VTE Risk/Contraindication: Risk Factor Score Per Nursin RFS Level Per Nursing on Admit: 4+=Very High RUI PATE MD May 10, 2017 10:52
--- NOTE | 2017-05-10 13:24 | Diagnostic Imaging Report ---
INDICATION: Respiratory difficulty. COMPARISON: Comparison made to prior examination 05/09/2017. FINDINGS: Heart size is normal. There is some venous congestion. There are bibasilar infiltrates. There is a left pleural effusion. There is no pneumothorax. Lines and tubes are in satisfactory position. IMPRESSION: 1. Bibasilar infiltrates and a left pleural effusion. 2. Moderate central pulmonary venous congestion. Dictated by: Dictated on workstation # [id number]
[2017-05-10] MEDS ORDERED: NS IV 500 ML 500 ML ONE (14:50)
[2017-05-10] MEDS: ENOXAPARIN 40 MG/0.4 ML (LOVENOX) SYR SC SCH (15:08)
[2017-05-10] MEDS: PROPOFOL DRIP (ICU) 100 ML IV SCH ×2 (20:45→23:25)
[2017-05-10] MEDS: CATHETER FLUSH 10 ML SYR IV PRN ×2 (21:50→23:08)
[2017-05-11] VITALS (35 sets, daily range): BP systolic 128–211; BP diastolic 39–100
[2017-05-11] MEDS: METOCLOPRAMIDE INJ 10 MG/2 ML (REGLAN) IVP SCH ×5 (00:19→23:56)
[2017-05-11] MEDS: metroNIDAZOLE 500MG/100ML IVPB 100 ML IV SCH (01:04)
[2017-05-11] MEDS: CATHETER FLUSH 10 ML SYR IV PRN ×4 (01:04→06:07)
[2017-05-11] MEDS: RT-ALBUTEROL/IPRATROPIUM 3 ML (DUONEB) VIAL INH SCH ×3 (02:05→19:00)
[2017-05-11] MEDS: morphine INJ 4 MG/ML 1 ML (VIAL/SYRINGE) IVP PRN ×7 (03:28→23:57)
[2017-05-11] MEDS: DEXMEDETOMIDINE INJECTION 200 MCG in NS (IVPB) 50 ML IV SCH ×5 (03:49→23:31)
[2017-05-11 04:07] LABS: ABG BASE EXCESS 0.1 MMOL/L (-2.5-2.5); ABG HCO3 25 MMOL/L (23-27); ABG OXYGEN SATURATION 96 % (94-100); ABG PCO2 48 MMHG (35-45); ABG PO2 82 MMHG (79-93); ABG TCO2 26.4 MMOL/L (21.0-31.0)
[2017-05-11 04:10] LABS: ALLENS TEST ART LINE; PATIENT TEMP 100.2
[2017-05-11] MEDS: LORazepam INJ 2 MG/ML (ATIVAN) VIAL IVP PRN ×2 (04:31→22:14)
[2017-05-11 04:38] LABS: BASOPHILS % (AUTO) 0 % (0-10); EOSINOPHILS # (AUTO) 0.1 10^3/uL (0.0-0.3); EOSINOPHILS % (AUTO) 1 % (0-10); LYMPHOCYTES # (AUTO) 0.9 X 10^3 (1.0-4.0); LYMPHOCYTES % (AUTO) 7 % (12-44); MEAN CORPUSCULAR HEMOGLOBIN 29 PG (25-34); MEAN CORPUSCULAR HGB CONC 32 G/DL (32-36); MEAN CORPUSCULAR VOLUME 90 FL (80-99); MEAN PLATELET VOLUME 10.3 FL (7.4-10.4); MONOCYTES % (AUTO) 7 % (0-12); NEUTROPHILS # (AUTO) 11.2 X 10^3 (1.8-7.8); NEUTROPHILS % (AUTO) 85 % (42-75); PLATELET COUNT 397 10^3/uL (130-400); RED BLOOD COUNT 3.15 10^6/uL (4.35-5.85); RED CELL DISTRIBUTION WIDTH 13.8 % (10.0-14.5); WHITE BLOOD COUNT 13.2 10^3/uL (4.3-11.0)
[2017-05-11 05:00] LABS: ANION GAP 9 MMOL/L (5-14); BLOOD UREA NITROGEN 19 MG/DL (7-18); BUN/CREATININE RATIO 37; CALCIUM 7.8 MG/DL (8.5-10.1); CARBON DIOXIDE 22 MMOL/L (21-32); CHLORIDE 111 MMOL/L (98-107); CREATININE SERUM 0.52 MG/DL (0.60-1.30); GFR ESTIMATED > 60; GLUCOSE 122 MG/DL (70-105); MAGNESIUM 1.8 MG/DL (1.8-2.4); PHOSPHORUS 3.3 MG/DL (2.3-4.7); POTASSIUM 4.6 MMOL/L (3.6-5.0); SODIUM 142 MMOL/L (135-145)
[2017-05-11] MEDS ORDERED: NS IV 500 ML 500 ML ONE (05:31)
[2017-05-11] MEDS: KCL 20 MEQ TAB (K-DUR) PO SCH (06:00)
[2017-05-11] MEDS: POTASSIUM CL 10MEQ/50ML IVPB 50 ML IV SCH (06:00)
[2017-05-11] MEDS: MAGNESIUM 1 GM/100 ML IVPB 100 ML IV SCH ×3 (06:00→10:48)
[2017-05-11] MEDS: RT-ALBUTEROL SULF 2.5 MG/3 ML PRE-MIX VIAL IH SCH ×3 (06:53→22:26)
[2017-05-11] MEDS: aCETylcysteine 20% (MUCOMYST) 30ML SOLN VIAL INH SCH ×3 (06:54→22:26)
[2017-05-11] MEDS: PIPERACILLIN SODIUM/TAZOBACTAM 4.5 GM in NS (IVPB) 100 ML IV SCH ×3 (07:03→22:07)
--- NOTE | 2017-05-11 07:45 | Diagnostic Imaging Report ---
INDICATION: Ventilated patient. COMPARISON: 05/10/2017 FINDINGS: Single frontal radiographic view of the chest was obtained and demonstrates indwelling enteric tube extending inferiorly beyond the [id number]. Cardiac silhouette and pulmonary vasculature are mildly prominent. Lungs continue to show consolidative bibasilar airspace disease. Overall, aeration has not significantly changed. There is no pneumothorax. Small left effusion is suspected. Right upper extremity PICC line tip terminates in the low SVC. Bony structures show no new acute abnormalities. IMPRESSION: 1. Stable bilateral infiltrates with probable left basilar effusion. 2. Stable cardiomegaly and mild pulmonary vascular congestion. Dictated by: Dictated on workstation # [id number]
--- NOTE | 2017-05-11 08:03 | Pulmonary Progress Note ---
Subjective Subjective/Events-last exam Pt has not been doing well with weaning trials. Exam Exam Vital Signs Date Time Temp Pulse Resp B/P (MAP) Pulse Ox O2 Delivery O2 Flow Rate FiO2 05/11/17 07:27 126 26 98 30 05/11/17 07:10 82 39 95 30 05/11/17 06:55 106 24 100 30 05/11/17 04:19 96 21 100 30 05/11/17 04:00 100.2 89 20 151/77 100 Mechanical Ventilator 30.00 05/11/17 04:00 100 30 05/11/17 03:00 86 19 159/39 100 Mechanical Ventilator 30.00 05/11/17 02:05 93 24 100 30 05/11/17 02:00 82 17 150/67 100 Mechanical Ventilator 30.00 05/11/17 01:00 95 05/11/17 01:00 93 17 151/75 100 Mechanical Ventilator 30.00 05/11/17 00:17 104 22 100 30 05/11/17 00:00 90 23 148/69 100 Mechanical Ventilator 30.00 05/11/17 00:00 100.1 Mechanical Ventilator 30.00 05/11/17 00:00 100 30 05/10/17 23:00 96 23 147/67 100 Mechanical Ventilator 30.00 05/10/17 22:00 82 20 100 30 05/10/17 22:00 81 23 159/73 100 Mechanical Ventilator 30.00 05/10/17 21:00 86 28 142/68 100 Mechanical Ventilator 30.00 05/10/17 20:01 99 23 100 30 05/10/17 20:00 100.0 Mechanical Ventilator 30.00 05/10/17 20:00 100 30 05/10/17 20:00 106 19 154/70 100 Mechanical Ventilator 30.00 05/10/17 19:43 100.2 102 26 153/51 100 Mechanical Ventilator 30 05/10/17 19:00 103 26 155/78 100 Mechanical Ventilator 30.00 05/10/17 19:00 97 05/10/17 18:15 97 24 100 30 05/10/17 18:00 100 20 153/47 100 Mechanical Ventilator 30.00 05/10/17 17:24 100.9 84 26 168/64 100 Mechanical Ventilator 30 05/10/17 17:19 100.9 96 22 145/62 100 Mechanical Ventilator 30 05/10/17 17:00 92 30 171/44 100 Mechanical Ventilator 30.00 05/10/17 16:00 100 30 05/10/17 16:00 93 15 158/43 100 Mechanical Ventilator 30.00 05/10/17 16:00 100.8 Mechanical Ventilator 30.00 05/10/17 15:14 100.4 70 20 154/59 100 Mechanical Ventilator 30 05/10/17 15:00 94 23 107/38 100 Mechanical Ventilator 30.00 05/10/17 14:59 100.8 91 17 112/56 100 Mechanical Ventilator 30 05/10/17 14:36 94 20 100 30 05/10/17 14:00 97 28 181/50 100 Mechanical Ventilator 30.00 05/10/17 13:13 96 05/10/17 13:00 90 21 186/49 100 Mechanical Ventilator 30.00 05/10/17 12:32 86 19 100 30 05/10/17 12:00 99.5 Mechanical Ventilator 30.00 05/10/17 12:00 100 30 05/10/17 12:00 92 21 190/52 100 Mechanical Ventilator 30.00 05/10/17 11:00 93 18 160/47 100 Mechanical Ventilator 30.00 05/10/17 10:34 86 19 100 30 05/10/17 10:00 85 16 110/39 100 Mechanical Ventilator 30.00 05/10/17 09:00 96 20 183/49 100 Mechanical Ventilator 30.00 05/10/17 08:09 100 25 100 30 05/10/17 08:00 100 30 05/10/17 08:00 100.7 94 26 172/68 100 Mechanical Ventilator 30.00 144/72 I & O 05/11/17 07:00 Intake Total 4536 ml Output Total 4555 ml Balance -19 ml General Appearance: Chronically ill, Mild Distress Neck: Full Range of Motion, Normal Inspection Respiratory: Other (scattered rhonchi without wheezing. Breath sounds are equal bilaterally) Cardiovascular: Regular Rate, Rhythm, No Edema, No Gallop, No JVD, Normal Peripheral Pulses, Other (1 to 2/6 systolic ejection murmur heard at the left lower sternal border.) Capillary Refill: Less Than 3 Seconds Gastrointestinal: soft, tenderness Extremity: Other Neurologic/Psychiatric: Alert Skin: Normal Color, Warm/Dry, Pallor Lymphatic: No Adenopathy Results Lab Laboratory Tests 05/10/17 04:25 6/11/17 22:05 05/11/17 04:00 Assessment/Plan Assessment/Plan Acute respiratory failure since postop secondary to aspiration of bowel contents -- sputum is growing MDR Acinetobacter -Change vent to SIMV/PS with RR 10 and PS 10 PEEP 5 -Will have RT decrease RR by 2 with vent checks as tolerated -D/C Diprivan and continue Precedex - zosyn, gent, Flagyl -Pt is awake/alert - -continue morphine for pain control -s/p tracheostomy Abdominal abscess s/p drain placement x 3 Anemia - monitor - ASPIRATION PNA with MDR Acinetobacter -S/P bronchoscopy mucous plugging Hypernatremia/hyperchloremia - Secondary to saline - -IVF changed to D5W and 20 KCL to KVO -change fee water NG flush to Q8 100cc Malnutrition -TF with pulmicare -- tolerating well - Dobbhoff placement today thrombocytopenia - improving -HIT Abx is negative -Arixtra Atelectasis, pulmonary edema, and mucous plugging on CT of chest - SVN Q4 Duoneb with Mucomyst TID -CPT per RT -monitor CXR Severe Deconditioning - pt is very weak -PT/OT Afib RVR- now converted back to sinus -cardiology following following Runs of vtach -cardiology following and aware hypothyroid -Pt is getting IV Synthroid -repeat TSH HX of SVT/AF -LABS AND CXR revi 233 45min spent with patient and medical team discussing plan of care and tracheostomy education. Clinical Quality Measures DVT/VTE Risk/Contraindication: Risk Factor Score Per Nursin RFS Level Per Nursing on Admit: 4+=Very High CHRISS ARTIS DO May 11, 2017 08:03
[2017-05-11] MEDS ORDERED: FUROSEMIDE 40 MG/4 ML INJ (LASIX) IVP NR (08:45)
[2017-05-11] MEDS: PANTOPRAZOLE 40 MG/10 ML (PROTONIX) VIAL IVP SCH (09:50)
[2017-05-11] MEDS: meTOprolol TARTRATE 25 MG (LOPRESSOR) TABLET PO SCH ×2 (09:50→20:01)
[2017-05-11] MEDS: GENTAMICIN IV SCH (09:50)
[2017-05-11] MEDS: NS IV SCH (09:50)
[2017-05-11] MEDS: AMIODARONE 200 MG (CORDARONE) TAB PO SCH (09:50)
[2017-05-11] MEDS: FLUCONAZOLE 100 MG/50 ML 50 ML IV SCH (09:51)
[2017-05-11] MEDS: LEVOTHYROXINE 100 MCG INJ (SYNTHROID) VIAL IV SCH (09:51)
[2017-05-11] MEDS: FUROSEMIDE 40 MG/4 ML INJ (LASIX) IVP SCH (09:52)
[2017-05-11] MEDS: CATHETER FLUSH 10 ML SYR IV SCH ×2 (09:52→20:02)
--- NOTE | 2017-05-11 09:54 | Physical Therapy Progress Note ---
Therapy Progress Note Patient in bed, nurse in the room. Nurse states that the patient was just repositioned in bed from a sitting position and was pretty fatigued. This therapist asked patient if she would agree to PT doing PROM on her legs and patient refuses. She agrees to having PT try back this afternoon. Patient is also in isolation now. STEPHANE KC PT May 11, 2017 09:54
--- NOTE | 2017-05-11 10:51 | Cardiology Progress Note ---
Cardiology SOAP Progress Note Subjective: s/p trach, on ventilator Objective: I&O/Vital Signs Vital Sign - Last 12Hours 05/11/17 05/11/17 05/11/17 05/11/17 00:00 00:00 00:00 00:17 Temp 100.1 Pulse 90 104 Resp 23 22 B/P (MAP) 148/69 Pulse Ox 100 100 100 O2 Delivery Mechanical Ventilator Mechanical Ventilator O2 Flow Rate 30.00 30.00 FiO2 30 30 05/11/17 05/11/17 05/11/17 05/11/17 01:00 01:00 02:00 02:05 Pulse 93 95 82 93 Resp 17 17 24 B/P (MAP) 151/75 150/67 Pulse Ox 100 100 100 O2 Delivery Mechanical Ventilator Mechanical Ventilator O2 Flow Rate 30.00 30.00 FiO2 30 05/11/17 05/11/17 05/11/17 05/11/17 03:00 04:00 04:00 04:19 Temp 100.2 Pulse 86 89 96 Resp 19 20 21 B/P (MAP) 159/39 151/77 Pulse Ox 100 100 100 100 O2 Delivery Mechanical Ventilator Mechanical Ventilator O2 Flow Rate 30.00 30.00 FiO2 30 30 05/11/17 05/11/17 05/11/17 05/11/17 05:00 06:00 06:55 07:00 Pulse 109 97 106 102 Resp 20 19 24 22 B/P (MAP) 211/78 175/50 153/85 Pulse Ox 100 100 100 100 O2 Delivery Mechanical Ventilator Mechanical Ventilator Mechanical Ventilator O2 Flow Rate 30.00 30.00 30.00 FiO2 30 05/11/17 05/11/17 05/11/17 05/11/17 07:00 07:10 07:27 07:57 Pulse 102 82 126 11 Resp 39 26 36 Pulse Ox 95 98 98 FiO2 30 30 30 05/11/17 05/11/17 05/11/17 08:00 09:00 10:10 Pulse 112 116 112 Resp 29 34 35 B/P (MAP) 150/59 154/59 Pulse Ox 98 100 100 O2 Delivery Mechanical Ventilator Mechanical Ventilator O2 Flow Rate 30.00 30.00 FiO2 30 Intake and Output 05/11/17 00:00 Intake Total 2931 ml Output Total 2705 ml Balance 226 ml Weight (Pounds): 203 Weight (Ounces): 1.6 Weight (Calculated Kilograms): 92.267172 Constitutional: other (status post-trach) Respiratory: No accessory muscle use, No respiratory distress, No chest tender , No chest expansion is symmetric, No chest is bilaterally symmetric, No lungs clear to percussion, No lungs clear to auscultation, No crackles, No rhonchi, No rales, No stridor, No wheezing, No pleural rub, other (Fair bilateral air entry; coarse airway sounds but no rhonchi) Cardiovascular: regular rate-rhythm, tachycardia, S1 and S2, other (Faint WILL at card base) Gastrointestional: other (Recent abdominal surgery, colostomy in place) Extremities: pedal edema, No clubbing, No cyanosis Neurologic/Psychiatric: no motor/sensory deficits, alert Skin: No rash on exposed areas, ulcerations on exposed areas Results/Procedures: Labs Laboratory Tests 05/10/17 18:37: Glucometer 127H 05/10/17 22:05: Hemoglobin 9.5#L, Hematocrit 29L 05/11/17 04:00: Hemoglobin 9.1L, Hematocrit 28L, White Blood Count 13.2H, Red Blood Count 3.15L , Mean Corpuscular Volume 90, Mean Corpuscular Hemoglobin 29, Mean Corpuscular Hemoglobin Concent 32, Red Cell Distribution Width 13.8, Platelet Count 397, Mean Platelet Volume 10.3, Neutrophils (%) (Auto) 85H, Lymphocytes (%) (Auto) 7L , Monocytes (%) (Auto) 7, Eosinophils (%) (Auto) 1, Basophils (%) (Auto) 0, Neutrophils # (Auto) 11.2H, Lymphocytes # (Auto) 0.9L, Monocytes # (Auto) 1.0, Eosinophils # (Auto) 0.1, Basophils # (Auto) 0.0, Blood Gas Puncture Site R [facility], Blood Gas Patient Temperature 100.2, Arterial Blood pH 7.35L, Arterial Blood Partial Pressure CO2 48H, Arterial Blood Partial Pressure O2 82, Arterial Blood HCO3 25, Arterial Blood Total CO2 26.4, Arterial Blood Oxygen Saturation 96, Arterial Blood Base Excess 0.1, Brannon Test ART LINE, Blood Gas Ventilator Setting YES, Blood Gas Inspired Oxygen 30%, Sodium Level 142, Potassium Level 4.6, Chloride Level 111H, Carbon Dioxide Level 22, Anion Gap 9, Blood Urea Nitrogen 19H, Creatinine 0.52L, Estimat Glomerular Filtration Rate > 60, BUN/ Creatinine Ratio 37, Glucose Level 122H, Calcium Level 7.8L, Phosphorus Level 3.3, Magnesium Level 1.8 Microbiology 04/30/17 Blood Culture - Final, Complete No growth 05/04/17 Gram Stain - Final, Complete 05/04/17 Sputum Culture - Final, Complete Acinetobacter Baumanii See Comments Presumptive Ivy Albicans 05/06/17 Gram Stain - Final, Complete 05/06/17 Anaerobic Culture - Final, Complete No growth 05/06/17 Surgical Culture - Final, Complete No growth A/P: Assessment/Dx: Large bowel perforation, fecal peritonitis, severe septic shock. Nonsustained VT, PAF, Acute diastolic heart failure Plan: Large bowel perforation status post emergent abdominal surgery by Dr. Ng two weeks ago. Peritonitis/severe septic shock: On broad-spectrum antibiotics. Significant improvement of sepsis. Status post trach, on SIMV mode on Ventilator. Nonsustained VT: Frequent PVCs. discontinue amio. continue metoprolol. Continue aggressive repletion of electrolytes. PAF: currently in sinus rhythm. acute diastolic heart failure - much better: Elevated BNP. Normal EF on Echo. Treatment with IV lasix. Thank you for your consultation. Please call me if you have any questions. Jung Foote MD, FACP, FACC, FSCAI, FHRS, CCDS Interventional Cardiology Cardiac Electrophysiology Vascular Medicine and Endovascular Interventions Darshana FOOTE MD May 11, 2017 10:51
--- NOTE | 2017-05-11 11:48 | Occupational Ther Daily Note ---
OT Current Status-Daily Note Subjective Pt seen in room, sitting up in bed, agreeable to OT. No pain mentioned except she nodded that it hurt her arms to move Appearance Drowsy, opens eyes during discussion Mental Status/Objective Functional [place] Measure 0=Not Assessed/NA 4=Minimal Assistance 1=Total Assistance 5=Supervision or Setup 2=Maximal Assistance 6=Modified [place] 3=Moderate Assistance 7=Complete [place] Other Treatment Pt cont with edema bilat hands and UEs. Has Isotoner glove on L hand but not R but has wrist splint on R to protect IV in wrist. Splint was twisted so it was reapplied correctly. Pt did 5 reps only AAROM bilat UEs, with post of the joint movement passive. Passive movement at L shoulder limited by trach tubing. Pt demonstrated very little active movement in hands and was unable to lift arms through full range against gravity but could straighten them at elbows. Pt is now in isolation. Pt left up in bed, all needs met. Education OT Patient Education: Exercise program OT Short Term Goals Short Term Goals 1=Demonstrate adherence to instructed precautions during ADL tasks. 2=Patient will verbalize/demonstrate understanding of assistive devices/ modifications for ADL. 3=Patient will improve strength/tolerance for activity to enable patient to perform ADL's. OT Longterm Goals Longterm Goals Time Frame: May 18, 2017 - Decrease edema to allow functional use bilat UEs. - Increase functional use UEs - Increase participation in basic self care as pt status changes Additional Goals: 3-ImproveStrength/Carlos A 1=Demonstrate adherence to instructed precautions during ADL tasks. 2=Patient will verbalize/demonstrate understanding of assistive devices/ modifications for ADL. 3=Patient will improve strength/tolerance for activity to enable patient to perform ADL's. OT Education/Plan Problem List/Assessment Pt would benefit from skilled OT to help increase functional use of bilat UEs and independence in basic self care to decrease caregiver burden and assist with discharge planning Discharge Recommendations Plan/Recommendations: Continue POC Treatment Plan/Plan of Care Patient would benefit from OT for education, treatment and training to promote independence in ADL's, mobility, safety and/or upper extremity function for ADL' s. Plan of Care: ADL Retraining (when appropriate), UE Funct Exercise/Act, UE Neuromus Re-Ed/Coord Treatment Duration: May 18, 2017 Visits Per Week: 5 Agreement: No (pt unable to participate in decision making. No family present) Rehab Potential: Guarded Time/GCodes Start Time: 09:00 Stop Time: 09:12 Total Time Billed (hr/min): 12 Billed Treatment Time visit, 12 minutes exercise WENDY WATKINS OT May 11, 2017 11:48
[2017-05-11] MEDS: ENOXAPARIN 40 MG/0.4 ML (LOVENOX) SYR SC SCH (13:56)
--- NOTE | 2017-05-11 14:04 | Progress Note-Standard ---
Standard Progress Note Progress Notes/Assess & Plan Date Seen by Provider: May 11, 2017 Time Seen by Provider: 13:08 Progress/Assessment & Plan 04/26/17:septic with severe leukopenia. Very poor urine output. On dual vasopressors. Sinus tachycardia. Outcome poor with expected mortality. Central venous pressure around 12. We'll continue to provide fluid resuscitation and maintain vasopressors for now. 04/27/17:continues to require vasopressor support. Urine output reasonable. Creatinine slightly elevated. Ventilation and oxygenation stable. Will place a wound VAC tomorrow. Continue supportive abdomen. Enteral nutrition in 24- 48 hours. DVT prophylaxis with low molecular weight heparin, renally adjusted dose 04/28/17:off the vasopressors. Renal function reasonable.NG output more than 1 L and therefore tube feeding will be delayed.electrolytes satisfactory.we'll continue current management. 04/29/17:Improving. Would facilitate diuresis before embarking on extubation. Intra-abdominal abscesses to be looked for by next week. L femoral arterial line satisfactory with no distal ischemia. Nutritional support in 24-48 hours. 04/30/17:slight change in her condition with decreased urine output and leukocytosis. Abdominal abscess in evolution very likely the culprit. More opacification of the right lung. We will try enteral feeding. Continue antibiotics 05/01/17 Diuresis in progress. Pressure mattress appropriate to prevent skin breakdown. Fascia intact. Tolerating tube feeds. Vent weaning over terrie next 24- 48 hours. HIT antibodies negative 05/04/17: Reintubated. Anasarca improved. Fascia intact. Intra-abdominal abscesses to be expected. CT scan in 48 hours. Tracheostomy discussed with the family and planned for this week 05/05/17:CONTINUES TO IMPROVE. pOOR MUSCLE STRENGTH. tRACHEOSTOMY IN [address] SCAN TOMORROW MORNING. 05/06/17:Intra-abdominal and pelvic abscesses drained percutaneously. Tracheostomy tomorrow. 05/08/17: Anxious and tearful, expected. Jejunal feeding in progress. Possible pseudomonas in cultures. Vent weaning initiated 05/11/17: Fluctuating temperature, possibly due to additional intra-abdominal abscesses. CT/drainage planned for tomorrow. Anasarca. Poor muscle strength Final Diagnosis Fecal peritonitis, sepsis MACY TALAVERA MD May 11, 2017 2:04 pm
--- NOTE | 2017-05-11 15:02 | Progress Note-Hospitalist ---
Standard Progress Note Progress Notes/Assess & Plan Date Seen 05/11/17 Time Seen by Provider: 15:02 Diagnosis Assessment: Acute peritonitis from colonic perforation with impacted stool with history of severe chronic constipation status post diverting colostomy POD # 1 Aspiration of bowel contents during intubation for surgery with ventilator- dependent respiratory failure currently History of SVT/AF status post attempted ablation an unsuccessful maintained on Rythmol by Dr. Ku cardiology [place] History of hypertension Hypothyroidism Leukopenia due to sepsis Hypokalemia Assess & Plan/Chief Complaint The patient is now on day 16. She is easily oxygenated at 30 percent FiO2. She has been unable to tolerate attempts at weaning however. This is likely to be multi factorial with both her weakened sepsis status, related to poor nutritional state, hypoalbuminemia and fluid retention, and the difficulty with inspiration in the face of her, all pain. Her other parameters continue to improve. Her temperature since yesterday has shown multiple readings in the 100 -100.9 range. The white count has fallen from 15,700-13,200. Her sodium has now been normalized although her chloride remains 111. She is participating in physical therapy at the bedside. This appears useful if only for the interaction required. Physical exam: She is alert and responds to commands. Breath sounds are clear to auscultation. CV is regular with a rate consistently at about 100. The abdomen shows multiple drains. The wound healing appears adequate. There remains edema of the dorsal hands and feet. This appears less than on my last visit. Impression: Severe sepsis post laparotomy for perforated colon and considerable solid stool contamination of the perineum. 2.subsequent poor nutritional state. 3.respiratory insufficiency Plan: Continue present measures. Continue physical therapy. Enteral nutrition Labs Laboratory Tests 05/10/17 04:25 05/10/17 22:05 05/11/17 04:00 SAM FULTON MD May 11, 2017 15:02
--- NOTE | 2017-05-11 15:03 | Physical Therapy Daily Note ---
PT Daily Note-Current Subjective Nods to agree. Indicates that she is tired. Transfers Functional [place] Measure 0=Not Assessed/NA 4=Minimal Assistance 1=Total Assistance 5=Supervision or Setup 2=Maximal Assistance 6=Modified [place] 3=Moderate Assistance 7=Complete IndependenceIRFPAI Quality Coding Scale 6 Independent with activity with or without an assistive device 5 Patient requires set up or clean up by helper. Patient completes activity by themselves 4 Supervision or touching assist (CGA). [place] provide cues , steadying assist 3 The helper provides less than half the effort to complete the activity 2 The helper provides more than half the effort to complete the activity 1 Dependent. The helper does all the effort to complete an activity 7 Patient refused to complete or attempt activity 9 The patient did not perform the activity before the current illness or injury 88 Not attempted due to Medical conditions or safety concerns Treatments Gradual progression of elevating HOB while performing PROM and AAROM U/LE's. Pt able to perform AP, QS, hip knee resisted ext, elbow resisted extension and hand squeezes. Assessment Pt is progressing. Tolerated treatment well. She is interactive and following cues. Tolerated HOB elevation well with slow progression. PT Slasher Hand Goals Group Home Goals PT Slasher Hand Goals Time Frame: May 13, 2017 Transfers (B,C,W/C) (FIM): 4 Gait (FIM): 2 Gait distance (FIM): 1=up to 49 ft Gait Assistive Device: FWW PT Plan Problem List Problem List: Activity Tolerance, Functional Strength, Safety Treatment/Plan Treatment Plan: Continue Plan of Care Treatment Plan: Bed Mobility, Education, Functional Activity Carlos A, Functional Strength, Gait, Safety, Therapeutic Exercise, Transfers Treatment Duration: May 13, 2017 Visits Per Week: 5-11 Time/GCodes Time In: 1410 Time Out: 1440 Total Billed Treatment Time: 30 Total Billed Treatment visit FA 15 EX 15 LILY MATTHEWS PT May 11, 2017 15:03
[2017-05-11] MEDS ORDERED: TROUGH ORDER-PHARMACY XX ONE (19:00)
[2017-05-12] VITALS (33 sets, daily range): BP systolic 97–194; BP diastolic 30–89
[2017-05-12] MEDS: D5W IV SCH (00:52)
[2017-05-12] MEDS: POTASSIUM CHLORIDE IV SCH (00:52)
[2017-05-12] MEDS: morphine INJ 4 MG/ML 1 ML (VIAL/SYRINGE) IVP PRN ×10 (02:20→23:32)
[2017-05-12] MEDS: RT-ALBUTEROL/IPRATROPIUM 3 ML (DUONEB) VIAL INH SCH ×3 (02:23→18:39)
[2017-05-12] MEDS: DEXMEDETOMIDINE INJECTION 200 MCG in NS (IVPB) 50 ML IV SCH ×4 (03:34→20:51)
[2017-05-12] MEDS: LORazepam INJ 2 MG/ML (ATIVAN) VIAL IVP PRN (03:40)
[2017-05-12 04:16] LABS: ABG BASE EXCESS 2.5 MMOL/L (-2.5-2.5); ABG HCO3 28 MMOL/L (23-27); ABG OXYGEN SATURATION 90 % (94-100); ABG PCO2 58 MMHG (35-45); ABG PO2 58 MMHG (79-93); ABG TCO2 30.2 MMOL/L (21.0-31.0)
[2017-05-12 04:27] LABS: ALLENS TEST ART LINE
[2017-05-12 04:28] LABS: BASOPHILS % (AUTO) 0 % (0-10); EOSINOPHILS # (AUTO) 0.1 10^3/uL (0.0-0.3); EOSINOPHILS % (AUTO) 1 % (0-10); LYMPHOCYTES # (AUTO) 0.9 X 10^3 (1.0-4.0); LYMPHOCYTES % (AUTO) 7 % (12-44); MEAN CORPUSCULAR HEMOGLOBIN 29 PG (25-34); MEAN CORPUSCULAR HGB CONC 31 G/DL (32-36); MEAN CORPUSCULAR VOLUME 92 FL (80-99); MEAN PLATELET VOLUME 10.1 FL (7.4-10.4); MONOCYTES # (AUTO) 0.8 X 10^3 (0.0-1.0); MONOCYTES % (AUTO) 7 % (0-12); NEUTROPHILS # (AUTO) 10.5 X 10^3 (1.8-7.8); NEUTROPHILS % (AUTO) 85 % (42-75); PLATELET COUNT 403 10^3/uL (130-400); RED CELL DISTRIBUTION WIDTH 14.2 % (10.0-14.5); WHITE BLOOD COUNT 12.4 10^3/uL (4.3-11.0)
[2017-05-12 04:28] LABS: PATIENT TEMP 97.4
[2017-05-12 04:29] LABS: ABG PH 7.31 (7.37-7.43)
[2017-05-12 04:32] LABS: ABG PH 7.35 (7.37-7.43)
[2017-05-12 05:06] LABS: ANISOCYTOSIS SLIGHT; BAND NEUTROPHILS 1 %; BASOPHILS % (MANUAL) 0 %; EOSINOPHILS % (MANUAL) 1 %; HYPOCHROMASIA MODERATE; LYMPHOCYTES % (MANUAL) 6 %; NEUTROPHILS % (MANUAL) 87 %; POLYCHROMASIA SLIGHT; TEAR DROP CELLS SLIGHT
[2017-05-12 05:15] LABS: ANION GAP 8 MMOL/L (5-14); BLOOD UREA NITROGEN 21 MG/DL (7-18); BUN/CREATININE RATIO 40; CARBON DIOXIDE 25 MMOL/L (21-32); CHLORIDE 109 MMOL/L (98-107); CREATININE SERUM 0.52 MG/DL (0.60-1.30); GFR ESTIMATED > 60; GLUCOSE 106 MG/DL (70-105); MAGNESIUM 1.6 MG/DL (1.8-2.4); PHOSPHORUS 3.8 MG/DL (2.3-4.7); POTASSIUM 4.2 MMOL/L (3.6-5.0); SODIUM 142 MMOL/L (135-145)
[2017-05-12] MEDS: MAGNESIUM 1 GM/100 ML IVPB 100 ML IV SCH ×3 (05:25→06:37)
[2017-05-12] MEDS: KCL 20 MEQ TAB (K-DUR) PO SCH (05:25)
[2017-05-12] MEDS: POTASSIUM CL 10MEQ/50ML IVPB 50 ML IV SCH (05:25)
[2017-05-12] MEDS: METOCLOPRAMIDE INJ 10 MG/2 ML (REGLAN) IVP SCH ×4 (05:47→23:31)
[2017-05-12] MEDS: RT-ALBUTEROL SULF 2.5 MG/3 ML PRE-MIX VIAL IH SCH ×3 (06:28→22:49)
[2017-05-12] MEDS: aCETylcysteine 20% (MUCOMYST) 30ML SOLN VIAL INH SCH ×3 (06:29→22:49)
[2017-05-12] MEDS: PIPERACILLIN SODIUM/TAZOBACTAM 4.5 GM in NS (IVPB) 100 ML IV SCH ×3 (06:36→23:32)
--- NOTE | 2017-05-12 07:12 | Pulmonary Progress Note ---
Subjective Subjective/Events-last exam Pt very weak can hardly move. Exam Exam Vital Signs Date Time Temp Pulse Resp B/P (MAP) Pulse Ox O2 Delivery O2 Flow Rate FiO2 05/12/17 06:29 89 22 100 40 05/12/17 06:00 56 21 138/45 100 Mechanical Ventilator 30.00 111/54 05/12/17 05:00 95 22 155/52 98 Mechanical Ventilator 30.00 118/68 05/12/17 04:00 100 30 05/12/17 04:00 97.4 96 27 145/47 96 Mechanical Ventilator 30.00 129/68 05/12/17 04:00 104 28 96 30 05/12/17 03:00 88 19 131/41 98 Mechanical Ventilator 30.00 128/64 05/12/17 02:23 91 30 98 30 05/12/17 02:00 89 23 131/41 99 Mechanical Ventilator 30.00 126/63 05/12/17 01:00 90 05/12/17 01:00 90 24 150/44 98 Mechanical Ventilator 30.00 143/68 05/12/17 00:30 96 30 100 30 05/12/17 00:00 100 30 05/12/17 00:00 61 23 175/54 99 Mechanical Ventilator 30.00 169/83 05/12/17 00:00 99.0 05/11/17 23:00 89 25 128/44 100 Mechanical Ventilator 30.00 133/75 05/11/17 22:26 92 23 100 30 05/11/17 22:00 92 25 150/49 100 Mechanical Ventilator 30.00 140/63 05/11/17 21:00 84 19 137/44 100 Mechanical Ventilator 30.00 138/57 05/11/17 20:00 99.2 94 21 153/47 100 Mechanical Ventilator 30.00 145/63 05/11/17 20:00 100 30 05/11/17 19:00 97 05/11/17 19:00 96 26 161/50 100 Mechanical Ventilator 30.00 141/63 05/11/17 19:00 98 28 100 30 05/11/17 18:00 101 26 143/71 100 Mechanical Ventilator 30.00 05/11/17 17:00 99 23 140/75 100 Mechanical Ventilator 30.00 05/11/17 16:48 99 23 100 30 05/11/17 16:10 100 30 05/11/17 16:00 93 27 131/44 100 Mechanical Ventilator 30.00 05/11/17 15:00 100 25 139/69 100 Mechanical Ventilator 30.00 05/11/17 14:06 105 27 99 30 05/11/17 14:00 105 27 168/74 98 Mechanical Ventilator 30.00 05/11/17 13:00 93 05/11/17 12:32 99.1 92 25 140/73 100 Mechanical Ventilator 30.00 05/11/17 12:10 93 24 100 30 05/11/17 12:00 100 30 05/11/17 12:00 97 27 137/52 100 Mechanical Ventilator 30.00 05/11/17 11:00 102 36 148/61 99 Mechanical Ventilator 30.00 05/11/17 10:10 112 35 100 30 05/11/17 10:00 108 28 137/48 100 Mechanical Ventilator 30.00 05/11/17 09:00 116 34 154/59 100 Mechanical Ventilator 30.00 05/11/17 08:05 99.0 05/11/17 08:05 100 30 05/11/17 08:00 112 29 150/59 98 Mechanical Ventilator 30.00 05/11/17 07:57 11 36 98 30 05/11/17 07:27 126 26 98 30 05/11/17 07:10 82 39 95 30 I & O 05/12/17 07:00 Intake Total 3546.25 ml Output Total 4578 ml Balance -1031.75 ml General Appearance: Chronically ill, Mild Distress Neck: Full Range of Motion, Normal Inspection Respiratory: Other (scattered rhonchi without wheezing. Breath sounds are equal bilaterally) Cardiovascular: Regular Rate, Rhythm, No Edema, No Gallop, No JVD, Normal Peripheral Pulses, Other (1 to 2/6 systolic ejection murmur heard at the left lower sternal border.) Capillary Refill: Less Than 3 Seconds Gastrointestinal: soft, tenderness Extremity: Other Neurologic/Psychiatric: Alert Skin: Normal Color, Warm/Dry, Pallor Lymphatic: No Adenopathy Results Lab Laboratory Tests 05/10/17 22:05 05/11/17 04:00 05/12/17 04:10 Assessment/Plan Assessment/Plan Acute respiratory failure since postop secondary to aspiration of bowel contents -- sputum is growing MDR Acinetobacter -D/C Diprivan and continue Precedex - zosyn, gent, Flagyl -Pt is awake/alert - -continue morphine for pain control at lower dose. D/C ATIVAN -s/p tracheostomy - Abdominal abscess s/p drain placement x 3 Anemia - monitor - ASPIRATION PNA with MDR Acinetobacter -S/P bronchoscopy mucous plugging Hypernatremia/hyperchloremia - Secondary to saline - -IVF D5W and 20 KCL to KVO fee water NG flush to Q8 100cc Malnutrition -TF with pulmicare -- tolerating well - Dobbhoff placement today thrombocytopenia - improving -HIT Abx is negative -Arixtra Atelectasis, pulmonary edema, and mucous plugging on CT of chest - SVN Q4 Duoneb with Mucomyst TID -CPT per RT -monitor CXR Severe Deconditioning - pt is very weak -PT/OT Afib RVR- now converted back to sinus -cardiology following following Runs of vtach -cardiology following and aware hypothyroid -Pt is getting IV Synthroid -repeat TSH HX of SVT/AF -LABS AND CXR reviewed.30 min spent with patient and healt care team discussing pt status and treatment plan. Clinical Quality Measures DVT/VTE Risk/Contraindication: Risk Factor Score Per Nursin RFS Level Per Nursing on Admit: 4+=Very High CHRISS ARTIS DO May 12, 2017 07:12
[2017-05-12] MEDS ORDERED: ALBUMIN 25% 25 GM/100 ML 100 ML IV NR (07:45)
[2017-05-12 07:50] LABS: ABG BASE EXCESS 1.7 MMOL/L (-2.5-2.5); ABG HCO3 28 MMOL/L (23-27); ABG OXYGEN SATURATION 95 % (94-100); ABG PCO2 68 MMHG (35-45); ABG PO2 80 MMHG (79-93); ABG TCO2 30.4 MMOL/L (21.0-31.0)
[2017-05-12] MEDS: meTOprolol TARTRATE 25 MG (LOPRESSOR) TABLET PO SCH ×2 (07:53→23:32)
[2017-05-12] MEDS: FUROSEMIDE 40 MG/4 ML INJ (LASIX) IVP SCH (07:53)
[2017-05-12] MEDS: PANTOPRAZOLE 40 MG/10 ML (PROTONIX) VIAL IVP SCH (07:53)
[2017-05-12] MEDS: LEVOTHYROXINE 100 MCG INJ (SYNTHROID) VIAL IV SCH (07:54)
[2017-05-12] MEDS: CATHETER FLUSH 10 ML SYR IV SCH ×2 (07:54→20:20)
--- NOTE | 2017-05-12 07:54 | Diagnostic Imaging Report ---
INDICATION: Respiratory failure. 0435 hours FINDINGS: Since examination one day earlier, there is continued mild cardiomegaly with basilar pulmonary airspace disease. No pneumothorax is identified. IMPRESSION: Basilar airspace disease which may be due to edema or pneumonitis. Atypical pneumonia is not excluded. Overall, there has been minimal interval change. Dictated by: Dictated on workstation # [id number]
[2017-05-12 07:57] LABS: ABG PH 7.24 (7.37-7.43); PATIENT TEMP 98.9
[2017-05-12] MEDS: NS IV SCH (08:01)
[2017-05-12] MEDS: GENTAMICIN IV SCH (08:01)
[2017-05-12] MEDS: FLUCONAZOLE 100 MG/50 ML 50 ML IV SCH (08:01)
[2017-05-12] MEDS ORDERED: morphine INJ 10 MG/ML 1ML (SYR OR VIAL) IVP ONE (08:30)
[2017-05-12] MEDS ORDERED: LIDOCAINE 1% INJ 20 ML (XYLOCAINE) VIAL ONE (10:25)
--- NOTE | 2017-05-12 10:27 | Physical Therapy Daily Note ---
PT Daily Note-Current Subjective Agrees to sit EOB with assist of therapy staff Pain Comment: grimaces with movement; appears generalized Mental Status Patient Orientation: Person multiple attachments Transfers Functional [place] Measure 0=Not Assessed/NA 4=Minimal Assistance 1=Total Assistance 5=Supervision or Setup 2=Maximal Assistance 6=Modified [place] 3=Moderate Assistance 7=Complete IndependenceIRFPAI Quality Coding Scale 6 Independent with activity with or without an assistive device 5 Patient requires set up or clean up by helper. Patient completes activity by themselves 4 Supervision or touching assist (CGA). [place] provide cues , steadying assist 3 The helper provides less than half the effort to complete the activity 2 The helper provides more than half the effort to complete the activity 1 Dependent. The helper does all the effort to complete an activity 7 Patient refused to complete or attempt activity 9 The patient did not perform the activity before the current illness or injury 88 Not attempted due to Medical conditions or safety concerns Sup to sit EOB dep assist of 2. Requires dep assist to maintain sitting EOB and dep assist to hold head up. Sat EOB approx 20 minutes fully supported by therapy staff. While sitting EOB worked on holding head up and postural control. Also dep for washing her face. Co Treat with OT as it requires 2 skilled clinicians to address postural control , balance, head control and positioning while sitting up; one therapist worked on trunk control whilst the other focused on head control. Pt returned to supine dep assist and dep for rolling and scooting. Assessment Current Status: Good Progress Pt tolerated sitting EOB fairly well. She was fatigued post treatment but was cooperative, fairly alert and agreeable. Dependent for moving and maintaining sitting EOB. PT Nursing Home Goals Nursing Home Goals PT Nursing Home Goals Time Frame: May 13, 2017 Transfers (B,C,W/C) (FIM): 4 Gait (FIM): 2 Gait distance (FIM): 1=up to 49 ft Gait Assistive Device: FWW PT Plan Problem List Problem List: Activity Tolerance, Functional Strength, Safety Treatment/Plan Treatment Plan: Continue Plan of Care Treatment Plan: Bed Mobility, Education, Functional Activity Carlos A, Functional Strength, Gait, Safety, Therapeutic Exercise, Transfers Treatment Duration: May 13, 2017 Visits Per Week: 5-11 Time/GCodes Time In: 825 Time Out: 905 Total Billed Treatment Time: 40 Total Billed Treatment visit FA 20 Other 20 is co treat with OT and will reflect on the OT note. LILY MATTHEWS PT May 12, 2017 10:27
--- NOTE | 2017-05-12 11:15 | Progress Note-Standard ---
Standard Progress Note Progress Notes/Assess & Plan Date Seen by Provider: May 12, 2017 Time Seen by Provider: 07:55 Progress/Assessment & Plan 04/26/17:septic with severe leukopenia. Very poor urine output. On dual vasopressors. Sinus tachycardia. Outcome poor with expected mortality. Central venous pressure around 12. We'll continue to provide fluid resuscitation and maintain vasopressors for now. 04/27/17:continues to require vasopressor support. Urine output reasonable. Creatinine slightly elevated. Ventilation and oxygenation stable. Will place a wound VAC tomorrow. Continue supportive abdomen. Enteral nutrition in 24- 48 hours. DVT prophylaxis with low molecular weight heparin, renally adjusted dose 04/28/17:off the vasopressors. Renal function reasonable.NG output more than 1 L and therefore tube feeding will be delayed.electrolytes satisfactory.we'll continue current management. 04/29/17:Improving. Would facilitate diuresis before embarking on extubation. Intra-abdominal abscesses to be looked for by next week. L femoral arterial line satisfactory with no distal ischemia. Nutritional support in 24-48 hours. 04/30/17:slight change in her condition with decreased urine output and leukocytosis. Abdominal abscess in evolution very likely the culprit. More opacification of the right lung. We will try enteral feeding. Continue antibiotics 05/01/17 Diuresis in progress. Pressure mattress appropriate to prevent skin breakdown. Fascia intact. Tolerating tube feeds. Vent weaning over terrie next 24- 48 hours. HIT antibodies negative 05/04/17: Reintubated. Anasarca improved. Fascia intact. Intra-abdominal abscesses to be expected. CT scan in 48 hours. Tracheostomy discussed with the family and planned for this week 05/05/17:CONTINUES TO IMPROVE. pOOR MUSCLE STRENGTH. tRACHEOSTOMY IN [address] SCAN TOMORROW MORNING. 05/06/17:Intra-abdominal and pelvic abscesses drained percutaneously. Tracheostomy tomorrow. 05/08/17: Anxious and tearful, expected. Jejunal feeding in progress. Possible pseudomonas in cultures. Vent weaning initiated 05/11/17: Fluctuating temperature, possibly due to additional intra-abdominal abscesses. CT/drainage planned for tomorrow. Anasarca. Poor muscle strength 05/12/17: No major changes in her condition. Repeat CT scan ending. Vent weaning attempts in progress. Poor muscle strength. Final Diagnosis Fecal peritonitis. Sepsis. Ventilatory failure. Intra-abdominal abscess. MACY TALAVERA MD May 12, 2017 11:14
[2017-05-12] MEDS ORDERED: fentaNYL INJECTION 100 MCG/2 ML AMP ONE (11:39)
[2017-05-12] MEDS ORDERED: fentaNYL INJECTION 100 MCG/2 ML AMP IVP ONE ×2 (11:40→12:00)
[2017-05-12] MEDS: LIDOCAINE (LIDODERM) 5% PATCH TOP SCH (12:34)
[2017-05-12] MEDS: IBUPROFEN SUSP 100MG/5ML (MOTRIN) UDC PO PRN (12:35)
--- NOTE | 2017-05-12 12:39 | Diagnostic Imaging Report ---
PROCEDURE: CT abdomen and pelvis with contrast. TECHNIQUE: Multiple contiguous axial images were obtained through the abdomen and pelvis after administration of intravenous contrast. INDICATION: Followup peritonitis due to colon perforation with multiple abscesses. CONTRAST: 100 mL of Omnipaque 350 is administered intravenously. COMPARISON: 05/06/2017. FINDINGS: There are bilateral small pleural effusions with bibasilar atelectasis. There is a nasal jejunostomy tube in place with oral contrast injected and opacifying small bowel loops. There are previously placed drains with improvement compared to the previous study and the fluid collections around these drains except for the left subphrenic drain which only shows mild improvement in the fluid collection adjacent to it. There are at least two separate collections adjacent to it, one more anteriorly abutting the undersurface of the left hepatic lobe measuring 5.1 x 3.3 cm. The other one is around the spleen with 2.1 cm thickness lining the spleen and extending craniocaudally 14.2 cm. There is another fluid collection centered in the mesentery measuring 3.3 x 3.7 cm and extending craniocaudally about 5.6 cm. This demonstrates enhancing lining. There are fluid collections also seen around the right colon along the right paracolic gutter. The liver, the pancreas, the adrenals, and the kidneys appear unremarkable. There is no hydronephrosis. Reynolds's catheter is seen in place. There is generalized edema in the peritoneum lining and along the mesentery and omentum. There is a small presacral fluid collection also seen. The osseous structures demonstrate scoliosis and degenerative changes of the lumbar spine. IMPRESSION: 1. Bilateral small pleural effusions with bilateral lower lobe atelectasis. 2. There is generalized edema in the mesenteric and omental fat with multiple fluid collections seen. There is some improvement in the previously drained fluid as described. Dictated by: Dictated on workstation # [id number]
[2017-05-12] MEDS: ENOXAPARIN 40 MG/0.4 ML (LOVENOX) SYR SC SCH (12:49)
--- NOTE | 2017-05-12 13:11 | Diagnostic Imaging Report ---
EXAMINATION: 1. CT-guided drain placement. Left subphrenic. 2. CT-guided drain placement-perisplenic INDICATION: Multiple fluid collections and abscesses in the abdomen and pelvis. The patient's vital signs, cardiac rhythm, and pulse oximetry with observed throughout the procedure by qualified nursing personnel. Sedation/medications: Fentanyl 75 mcg IV. The patient was already given sedatives and continued to be under moderate sedation during the procedure for one hour. CONSENT: Informed consent was obtained from the patient. The risks, benefits, potential complications and alternatives were reviewed and all questions answered to the patient's satisfaction. FINDINGS: 2 fluid collections one anterior left subphrenic and one posterior from perisplenic or abscess at this time. PROCEDURE: After maximal sterile barrier preparation and draping, 1% lidocaine was utilized for local anesthesia. First drain placement: With the patient in supine position, anterior intercostal approach was selected. A 19-gauge Yueh sheathed needle was introduced utilizing CT guidance into the anterior left subphrenic collection. CT images confirm appropriate positioning. After standard over a guidewire exchange technique and after serial dilatation, a 10 Kinyarwanda drain is placed and distal loop formed in the collection. A 5 ml of yellow relatively thin fluid is aspirated and sent to microbiology. The drainage catheter is connected to suction type draining bag. The patient tolerated the procedure well with no immediate complications. Then the second drain is placed as follows: With the patient in supine position, a approach was selected. A 19-gauge Yueh sheathed needle was introduced utilizing CT guidance into the perisplenic collection. CT images confirm appropriate positioning. After standard over a guidewire exchange technique and after serial dilatation, a 10 Kinyarwanda drain is placed and distal loop formed in the collection. A 3 ml of yellow slightly cloudy fluid is aspirated and sent to microbiology. The drainage catheter is connected to suction type draining bag. The patient tolerated the procedure well with no immediate complications. IMPRESSION: Successful CT-guided, 10 Kinyarwanda, drains placed in the anterior left subphrenic collection and similar drain in posterior perisplenic collection. Dictated by: Dictated on workstation # [id number]
--- NOTE | 2017-05-12 13:31 | Diagnostic Imaging Report ---
EXAMINATION: CT-guided drain placement. Abdomen. INDICATION: Mesenteric abscess. The patient has multiple other axes. The patient's vital signs, cardiac rhythm, and pulse oximetry with observed throughout the procedure by qualified nursing personnel. Sedation/medications: Fentanyl 75 mcg IV. The patient was already given sedatives and continued to be under moderate sedation during the procedure for one hour. CONSENT: Informed consent was obtained from the patient. The risks, benefits, potential complications and alternatives were reviewed and all questions answered to the patient's satisfaction. FINDINGS: Mesenteric abscess PROCEDURE: After maximal sterile barrier preparation and draping, 1% lidocaine was utilized for local anesthesia. With the patient in supine position, anterior approach was selected. A 19-gauge Yueh sheathed needle was introduced utilizing CT guidance into the mesenteric fluid collection. CT images confirm appropriate positioning. After standard over a guidewire exchange technique and after serial dilatation, a 10 [place]ruguayan drain is placed and distal loop formed in the collection. A 5 ml of yellow thick fluid is aspirated and sent to microbiology. The drainage catheter is connected to suction type draining bag. The patient tolerated the procedure well with no immediate complications. IMPRESSION: Successful CT-guided, 10 [place]ayan, drain placement in mid abdominal mesenteric abscess. Dictated by: Dictated on workstation # [id number]
--- NOTE | 2017-05-12 13:33 | Cardiology Progress Note ---
Cardiology SOAP Progress Note Subjective: s/p trach, on SIMV setting on vent Objective: I&O/Vital Signs Vital Sign - Last 12Hours 05/12/17 05/12/17 05/12/17 05/12/17 02:00 02:23 03:00 04:00 Pulse 89 91 88 104 Resp 23 30 19 28 B/P (MAP) 131/41 131/41 126/63 128/64 Pulse Ox 99 98 98 96 O2 Delivery Mechanical Ventilator Mechanical Ventilator O2 Flow Rate 30.00 30.00 FiO2 30 30 05/12/17 05/12/17 05/12/17 05/12/17 04:00 04:00 05:00 06:00 Temp 97.4 Pulse 96 95 56 Resp 27 22 21 B/P (MAP) 145/47 155/52 138/45 129/68 118/68 111/54 Pulse Ox 96 100 98 100 O2 Delivery Mechanical Ventilator Mechanical Ventilator Mechanical Ventilator O2 Flow Rate 30.00 30.00 30.00 FiO2 30 05/12/17 05/12/17 05/12/17 05/12/17 06:29 07:00 07:00 07:34 Pulse 89 92 92 105 Resp 22 23 21 B/P (MAP) 124/44 155/63 Pulse Ox 100 100 100 O2 Delivery Mechanical Ventilator O2 Flow Rate 30.00 FiO2 40 05/12/17 05/12/17 05/12/17 05/12/17 08:00 09:00 09:00 09:05 Pulse 92 70 Resp 19 13 B/P (MAP) 164/46 155/42 133/62 Pulse Ox 100 100 97 O2 Delivery Mechanical Ventilator Mechanical Ventilator O2 Flow Rate 30.00 30.00 FiO2 30 100 05/12/17 05/12/17 05/12/17 05/12/17 09:10 10:00 10:03 12:00 Pulse 108 101 Resp 14 22 B/P (MAP) 168/44 163/89 Pulse Ox 100 100 100 O2 Delivery Mechanical Ventilator O2 Flow Rate 30.00 FiO2 60 60 30 05/12/17 05/12/17 12:02 12:25 Pulse 111 105 Resp 20 20 B/P (MAP) 137/59 Pulse Ox 100 100 O2 Delivery Mechanical Ventilator O2 Flow Rate 60.00 FiO2 60 Intake and Output 05/12/17 00:00 Intake Total 1631 ml Output Total 2813 ml Balance -1182 ml Weight (Pounds): 197 Weight (Ounces): 4.0 Weight (Calculated Kilograms): 89.212130 Constitutional: other (status post-trach) Respiratory: No accessory muscle use, No respiratory distress, No chest tender , No chest expansion is symmetric, No chest is bilaterally symmetric, No lungs clear to percussion, No lungs clear to auscultation, No crackles, No rhonchi, No rales, No stridor, No wheezing, No pleural rub, other (Fair bilateral air entry; coarse airway sounds but no rhonchi) Cardiovascular: regular rate-rhythm, tachycardia, S1 and S2, other (Faint WILL at card base) Gastrointestional: other (Recent abdominal surgery, colostomy in place) Extremities: pedal edema, No clubbing, No cyanosis Neurologic/Psychiatric: no motor/sensory deficits, alert Skin: No rash on exposed areas, ulcerations on exposed areas Results/Procedures: Labs Laboratory Tests 05/11/17 19:10: Random Gentamicin Level 5.2 05/11/17 19:30: Glucometer 142H 05/12/17 04:08: Blood Gas Puncture Site R ALMIRA, Blood Gas Patient Temperature 97.4, Arterial Blood pH 7.31*L, Arterial Blood Partial Pressure CO2 58H, Arterial Blood Partial Pressure O2 58L, Arterial Blood HCO3 28H, Arterial Blood Total CO2 30.2 , Arterial Blood Oxygen Saturation 90L, Arterial Blood Base Excess 2.5, Brannon Test ART LINE, Blood Gas Ventilator Setting YES, Blood Gas Inspired Oxygen 30% 05/12/17 04:10: White Blood Count 12.4H, Red Blood Count 3.20L, Hemoglobin 9.2L, Hematocrit 30L , Mean Corpuscular Volume 92, Mean Corpuscular Hemoglobin 29, Mean Corpuscular Hemoglobin Concent 31L, Red Cell Distribution Width 14.2, Platelet Count 403H, Mean Platelet Volume 10.1, Neutrophils (%) (Auto) 85H, Lymphocytes (%) (Auto) 7L , Monocytes (%) (Auto) 7, Eosinophils (%) (Auto) 1, Basophils (%) (Auto) 0, Neutrophils # (Auto) 10.5H, Lymphocytes # (Auto) 0.9L, Monocytes # (Auto) 0.8, Eosinophils # (Auto) 0.1, Basophils # (Auto) 0.0, Neutrophils % (Manual) 87, Lymphocytes % (Manual) 6, Monocytes % (Manual) 5, Eosinophils % (Manual) 1, Basophils % (Manual) 0, Band Neutrophils 1, Polychromasia SLIGHT, Hypochromasia MODERATE, Anisocytosis SLIGHT, Tear Drop Cells SLIGHT, Sodium Level 142, Potassium Level 4.2, Chloride Level 109H, Carbon Dioxide Level 25, Anion Gap 8, Blood Urea Nitrogen 21H, Creatinine 0.52L, Estimat Glomerular Filtration Rate > 60, BUN/Creatinine Ratio 40, Glucose Level 106H, Calcium Level 8.0L, Phosphorus Level 3.8, Magnesium Level 1.6L 05/12/17 07:33: Blood Gas Puncture Site ARTLINE, Blood Gas Patient Temperature 98.9, Arterial Blood pH 7.24*L, Arterial Blood Partial Pressure CO2 68H, Arterial Blood Partial Pressure O2 80, Arterial Blood HCO3 28H, Arterial Blood Total CO2 30.4, Arterial Blood Oxygen Saturation 95, Arterial Blood Base Excess 1.7, Brannon Test N/A, Blood Gas Ventilator Setting YES, Blood Gas Inspired Oxygen 40 Microbiology 04/30/17 Blood Culture - Final, Complete No growth 05/04/17 Gram Stain - Final, Complete 05/04/17 Sputum Culture - Final, Complete Acinetobacter Baumanii See Comments Presumptive Ivy Albicans 05/06/17 Gram Stain - Final, Complete 05/06/17 Anaerobic Culture - Final, Complete No growth 05/06/17 Surgical Culture - Final, Complete No growth A/P: Assessment/Dx: Large bowel perforation, fecal peritonitis, severe septic shock. Nonsustained VT, PAF, Acute diastolic heart failure - resolved Plan: Large bowel perforation status post emergent abdominal surgery by Dr. Ng two weeks ago. Peritonitis/severe septic shock: On broad-spectrum antibiotics. Significant improvement of sepsis. Status post trach, on SIMV mode on Ventilator (Critical Care myopathy). Nonsustained VT: NSVT noted last night for ~ 15 beats. Frequent PVCs. discontinue amio. continue metoprolol. Continue aggressive repletion of electrolytes. We may start her on her home dose of propafenone soon. PAF: currently in sinus rhythm. acute diastolic heart failure - resolved. mild bilateral edema noted. lasix PRN. Thank you for your consultation. Please call me if you have any questions. Jung Foote MD, FACP, FACC, FSCAI, FHRS, CCDS Interventional Cardiology Cardiac Electrophysiology Vascular Medicine and Endovascular Interventions Darshana FOOTE MD May 12, 2017 1:33 pm
[2017-05-12] MEDS ORDERED: LIDOCAINE 1% INJ 20 ML (XYLOCAINE) VIAL INJ ONE (13:45)
[2017-05-12 13:47] LABS: ABG HCO3 29 MMOL/L (23-27); ABG OXYGEN SATURATION 99 % (94-100); ABG PCO2 58 MMHG (35-45); ABG PO2 106 MMHG (79-93); ABG TCO2 30.3 MMOL/L (21.0-31.0)
[2017-05-12 13:50] LABS: ABG PH 7.32 (7.37-7.43); ALLENS TEST ART LINE
--- NOTE | 2017-05-12 16:23 | Occupational Ther Daily Note ---
OT Current Status-Daily Note Subjective Pt. on vent. Does not speak or mouth words. Does open eyes occasionally and is able to nod. Appearance Pt. in ICU bed with vent. Multiple lines and tubing. Dr. Causey indicates that he would like therapy to start getting pt. up. Mental Status/Objective Patient Orientation: Unable to Assess Functional [place] Measure 0=Not Assessed/NA 4=Minimal Assistance 1=Total Assistance 5=Supervision or Setup 2=Maximal Assistance 6=Modified [place] 3=Moderate Assistance 7=Complete [place] ADL-Treatment Transfers (B, C, W/C) (FIM): 1 (See below) Other Treatment OT/PT co-treated due to weakness and need for skilled therapy. Pt. on air bed with multiple tubing and wires/drains. Physician in room during part of assessment. PT requires dependent assist x 2 to transfer side of bed. PT facilitated upper body needs/lines/wires while OT facilitated lower body to roll to side. Pt. gently encouraged throughout treatment, and encouraged to keep eyes open. Pt. begins to wince when being moved. Note that once pt. on the side of the bed, no intentional strength is present, nor head control. Only tone. OT positioned self behind pt. to facilitate posture and balance, as well as neck extension. Pt. in front of pt. to facilitate eye contact, foot placement on floor, and pelvic positioning. Pt. "pushing" hard to left side. Pt. had difficulty tolerating this. PT washed face while OT facilitated neck stretch and upright posture. Pt. was laid back down and gown changed. All needs met in room. Education OT Patient Education: Correct positioning, Transfer techniques Teaching Recipient: Patient Teaching Methods: Demonstration Response to Teaching: Unable to Return Demonstration OT Short Term Goals Short Term Goals 1=Demonstrate adherence to instructed precautions during ADL tasks. 2=Patient will verbalize/demonstrate understanding of assistive devices/ modifications for ADL. 3=Patient will improve strength/tolerance for activity to enable patient to perform ADL's. OT Wildlife Conservation Officer Goals Wildlife Conservation Officer Goals Time Frame: May 18, 2017 - Decrease edema to allow functional use bilat UEs. - Increase functional use UEs - Increase participation in basic self care as pt status changes Additional Goals: 3-ImproveStrength/Carlos A 1=Demonstrate adherence to instructed precautions during ADL tasks. 2=Patient will verbalize/demonstrate understanding of assistive devices/ modifications for ADL. 3=Patient will improve strength/tolerance for activity to enable patient to perform ADL's. OT Education/Plan Problem List/Assessment Assessment: Decreased Activ Tolerance, Decreased Safety Aware, Decreased UE Strength, Dependent Transfers, Impaired Bed Mobility, Impaired Cognition, Impaired Coordination, Impaired Funct Balance, Impaired I ADL's, Impaired Self- Care Skills, Restricted Funct UE ROM, Visual-Perceptual Deficit Pt would benefit from skilled OT to help increase functional use of bilat UEs and independence in basic self care to decrease caregiver burden and assist with discharge planning Discharge Recommendations Plan/Recommendations: Continue POC Therapy D/C Recommendations: 24 hr Supervision Treatment Plan/Plan of Care Treatment,Training & Education: Yes Patient would benefit from OT for education, treatment and training to promote independence in ADL's, mobility, safety and/or upper extremity function for ADL' s. Plan of Care: ADL Retraining (when appropriate), UE Funct Exercise/Act, UE Neuromus Re-Ed/Coord Treatment Duration: May 18, 2017 Visits Per Week: 5 Agreement: No (pt unable to participate in decision making. No family present) Rehab Potential: Guarded Time/GCodes Start Time: 08:25 Stop Time: 09:05 Total Time Billed (hr/min): 40 Billed Treatment Time 1, FA 40(20) co treat Please see above for designated roles. JAILYN ASHER OT May 12, 2017 16:23
[2017-05-12] MEDS: LIDOCAINE PATCH REMOVAL TP SCH (23:32)
[2017-05-13] VITALS (42 sets, daily range): BP systolic 92–237; BP diastolic 36–149
[2017-05-13] MEDS: DEXMEDETOMIDINE INJECTION 200 MCG in NS (IVPB) 50 ML IV SCH ×5 (01:12→23:34)
[2017-05-13] MEDS: morphine INJ 4 MG/ML 1 ML (VIAL/SYRINGE) IVP PRN ×11 (01:48→23:34)
[2017-05-13 04:58] LABS: ABG BASE EXCESS 3.7 MMOL/L (-2.5-2.5); ABG HCO3 29 MMOL/L (23-27); ABG OXYGEN SATURATION 99 % (94-100); ABG PCO2 48 MMHG (35-45); ABG PH 7.39 (7.37-7.43); ABG PO2 106 MMHG (79-93)
[2017-05-13 05:01] LABS: ALLENS TEST ART LINE; PATIENT TEMP 97.9
[2017-05-13 05:05] LABS: BASOPHILS % (AUTO) 0 % (0-10); EOSINOPHILS % (AUTO) 0 % (0-10); LYMPHOCYTES # (AUTO) 0.7 X 10^3 (1.0-4.0); LYMPHOCYTES % (AUTO) 6 % (12-44); MEAN CORPUSCULAR HEMOGLOBIN 30 PG (25-34); MEAN CORPUSCULAR HGB CONC 32 G/DL (32-36); MEAN CORPUSCULAR VOLUME 93 FL (80-99); MEAN PLATELET VOLUME 9.9 FL (7.4-10.4); MONOCYTES # (AUTO) 0.7 X 10^3 (0.0-1.0); MONOCYTES % (AUTO) 6 % (0-12); NEUTROPHILS # (AUTO) 9.9 X 10^3 (1.8-7.8); NEUTROPHILS % (AUTO) 88 % (42-75); PLATELET COUNT 367 10^3/uL (130-400); RED BLOOD COUNT 2.58 10^6/uL (4.35-5.85); RED CELL DISTRIBUTION WIDTH 14.1 % (10.0-14.5); WHITE BLOOD COUNT 11.3 10^3/uL (4.3-11.0)
[2017-05-13 05:26] LABS: ANION GAP 9 MMOL/L (5-14); BLOOD UREA NITROGEN 24 MG/DL (7-18); BUN/CREATININE RATIO 41 (0-20); CALCIUM 8.1 MG/DL (8.5-10.1); CARBON DIOXIDE 25 MMOL/L (21-32); CHLORIDE 107 MMOL/L (98-107); CREATININE SERUM 0.59 MG/DL (0.60-1.30); GFR ESTIMATED > 60; GLUCOSE 160 MG/DL (70-105); MAGNESIUM 1.8 MG/DL (1.8-2.4); PHOSPHORUS 3.4 MG/DL (2.3-4.7); POTASSIUM 4.4 MMOL/L (3.6-5.0); SODIUM 141 MMOL/L (135-145)
[2017-05-13] MEDS: POTASSIUM CL 10MEQ/50ML IVPB 50 ML IV SCH (06:00)
[2017-05-13] MEDS: KCL 20 MEQ TAB (K-DUR) PO SCH (06:00)
[2017-05-13] MEDS: MAGNESIUM 1 GM/100 ML IVPB 100 ML IV SCH (06:00)
[2017-05-13] MEDS: RT-ALBUTEROL SULF 2.5 MG/3 ML PRE-MIX VIAL IH SCH ×3 (06:11→21:55)
[2017-05-13] MEDS: aCETylcysteine 20% (MUCOMYST) 30ML SOLN VIAL INH SCH ×3 (06:11→21:56)
[2017-05-13] MEDS: IBUPROFEN SUSP 100MG/5ML (MOTRIN) UDC PO PRN ×2 (06:46→21:16)
[2017-05-13] MEDS: D5W IV SCH ×2 (06:51→23:13)
[2017-05-13] MEDS: POTASSIUM CHLORIDE IV SCH ×2 (06:51→23:13)
--- NOTE | 2017-05-13 07:07 | Pulmonary Progress Note ---
Subjective Subjective/Events-last exam Pt is stable on vent. very weak. Exam Exam Vital Signs Date Time Temp Pulse Resp B/P (MAP) Pulse Ox O2 Delivery O2 Flow Rate FiO2 05/13/17 06:11 93 22 100 40 05/13/17 06:11 100 40.00 05/13/17 06:00 97 21 152/43 100 Mechanical Ventilator 40.00 132/67 05/13/17 05:17 114 26 100 40 05/13/17 05:00 99 23 126/40 100 Mechanical Ventilator 40.00 127/61 05/13/17 04:00 100 40 05/13/17 04:00 97.9 105 22 113/39 100 Mechanical Ventilator 40.00 126/58 05/13/17 03:46 105 24 100 40 05/13/17 03:00 105 23 121/40 100 Mechanical Ventilator 40.00 124/56 05/13/17 02:36 105 23 100 40 05/13/17 02:00 110 19 109/36 100 Mechanical Ventilator 40.00 122/57 05/13/17 01:00 115 24 133/40 100 Mechanical Ventilator 40.00 137/61 05/13/17 01:00 114 05/13/17 00:00 100.0 118 22 128/40 100 Mechanical Ventilator 40.00 134/59 05/13/17 00:00 100 40 05/12/17 23:00 113 28 194/50 100 Mechanical Ventilator 40.00 153/72 05/12/17 22:50 110 27 100 40 05/12/17 22:00 105 22 188/46 100 Mechanical Ventilator 40.00 140/70 05/12/17 21:08 112 25 100 40 05/12/17 21:00 112 23 133/42 100 Mechanical Ventilator 40.00 138/65 05/12/17 20:00 100 40 05/12/17 20:00 99.0 111 21 120/39 100 Mechanical Ventilator 40.00 139/65 05/12/17 19:00 105 21 133/43 100 Mechanical Ventilator 40.00 128/58 05/12/17 19:00 102 05/12/17 18:43 101 23 100 40 05/12/17 18:00 106 18 118/43 100 Mechanical Ventilator 40.00 127/61 05/12/17 17:00 108 24 123/43 100 Mechanical Ventilator 40.00 138/60 05/12/17 16:00 100 40 05/12/17 16:00 105 22 130/46 100 Mechanical Ventilator 40.00 160/79 05/12/17 15:00 101 23 116/37 100 Mechanical Ventilator 40.00 104/57 05/12/17 14:14 96 15 100 40 05/12/17 14:00 96 23 97/30 100 Mechanical Ventilator 40.00 105/53 05/12/17 13:00 100 05/12/17 13:00 99 18 120/34 100 Mechanical Ventilator 40.00 113/58 05/12/17 12:25 105 20 100 60 05/12/17 12:02 111 20 137/59 100 Mechanical Ventilator 60.00 05/12/17 12:00 99.0 05/12/17 12:00 100 40 05/12/17 10:03 101 22 100 60 05/12/17 10:00 108 14 168/44 100 Mechanical Ventilator 30.00 163/89 05/12/17 09:10 60 05/12/17 09:05 100 05/12/17 09:00 70 13 155/42 97 Mechanical Ventilator 30.00 05/12/17 09:00 100 40 05/12/17 08:00 92 19 164/46 100 Mechanical Ventilator 30.00 133/62 05/12/17 07:34 105 21 100 05/12/17 07:30 98.6 I & O 05/13/17 07:00 Intake Total 1350 ml Output Total 2185 ml Balance -835 ml General Appearance: Chronically ill, Mild Distress Neck: Full Range of Motion, Normal Inspection Respiratory: Other (scattered rhonchi without wheezing. Breath sounds are equal bilaterally) Cardiovascular: Regular Rate, Rhythm, No Edema, No Gallop, No JVD, Normal Peripheral Pulses, Other (1 to 2/6 systolic ejection murmur heard at the left lower sternal border.) Capillary Refill: Less Than 3 Seconds Gastrointestinal: soft, tenderness Extremity: Other Neurologic/Psychiatric: Alert Skin: Normal Color, Warm/Dry, Pallor Lymphatic: No Adenopathy Results Lab Laboratory Tests 05/12/17 04:10 05/13/17 04:45 Assessment/Plan Assessment/Plan Acute respiratory failure since postop secondary to aspiration of bowel contents -- sputum is growing MDR Acinetobacter -Acute respiratory failure is becoming chronic vent dependent respiratory failure -D/C Diprivan and continue Precedex - zosyn, porsche, Flagyl -Pt is awake/alert - -s/p tracheostomy - Abdominal abscess s/p drain placement x 3 -Pain control with morphine 1-2 mg IV Q2 PRN -Add oxycodone (will d/w pharmacy since we will have to put it down OG tube) for better pain management. -D/C ativan and sedation meds to help with ventilator weaning and rehab participation Anemia - monitor - ASPIRATION PNA with MDR Acinetobacter -S/P bronchoscopy mucous plugging Hypernatremia/hyperchloremia - Secondary to saline - -IVF D5W and 20 KCL to KVO fee water NG flush to Q8 100cc Malnutrition -TF with pulmicare -- tolerating well - Dobbhoff placement today Debility/weakness -PT/OT and RN to get pt up to chair daily as tolerated -Pt only tolerated getting to edge of bed yesterday however today staff was able to get her to the bedside chair. -PT is very weak and this is the reason I have not been able to wean ventilator. -Pain meds/sedation are also decreasing respiratory drive thrombocytopenia - improving -HIT Abx is negative -Arixtra Atelectasis, pulmonary edema, and mucous plugging on CT of chest - SVN Q4 Duoneb with Mucomyst TID -CPT per RT -monitor CXR Severe Deconditioning - pt is very weak -PT/OT hypothyroid -Pt is getting IV Synthroid -repeat TSH HX of SVT/AF -LABS AND CXR reviewed 233 Clinical Quality Measures DVT/VTE Risk/Contraindication: Risk Factor Score Per Nursin RFS Level Per Nursing on Admit: 4+=Very High CHRISS ARTIS DO May 13, 2017 07:07
--- NOTE | 2017-05-13 08:03 | Diagnostic Imaging Report ---
INDICATION: Ventilated patient. COMPARISON: 05/12/2017 FINDINGS: Single frontal radiographic view of the chest was obtained and demonstrates interval placement of multiple additional pigtail catheters in the left upper abdominal quadrant. Indwelling enteric tube extends inferiorly beyond the [id number]. Bilateral upper extremity PICC lines are also present with tips in the SVC. Cardiac silhouette remains enlarged. Pulmonary vasculature remains moderately prominent. There are also persistent diffuse interstitial opacities with some alveolar confluence in both lung bases. Bibasilar effusions seen on CT from 05/12/2017 are inconspicuous. There is no pneumothorax. IMPRESSION: 1. Stable exam of the chest showing cardiomegaly with pulmonary vascular congestion 2. Stable bibasilar airspace disease likely on the basis of effusions with associated atelectasis and/or infiltrate. Continued followup is recommended. Dictated by: Dictated on workstation # [id number]
[2017-05-13] MEDS: PIPERACILLIN SODIUM/TAZOBACTAM 4.5 GM in NS (IVPB) 100 ML IV SCH ×3 (08:40→23:06)
[2017-05-13] MEDS: FLUCONAZOLE 100 MG/50 ML 50 ML IV SCH (08:40)
[2017-05-13] MEDS: LEVOTHYROXINE 100 MCG INJ (SYNTHROID) VIAL IV SCH (08:41)
[2017-05-13] MEDS: METOCLOPRAMIDE INJ 10 MG/2 ML (REGLAN) IVP SCH ×4 (08:41→23:34)
[2017-05-13] MEDS: meTOprolol TARTRATE 25 MG (LOPRESSOR) TABLET PO SCH ×2 (08:41→21:17)
[2017-05-13] MEDS: CATHETER FLUSH 10 ML SYR IV SCH ×2 (08:41→21:16)
[2017-05-13] MEDS: FUROSEMIDE 40 MG/4 ML INJ (LASIX) IVP SCH (08:41)
[2017-05-13] MEDS: GENTAMICIN IV SCH (09:38)
[2017-05-13] MEDS: PANTOPRAZOLE 40 MG/10 ML (PROTONIX) VIAL IVP SCH (09:38)
[2017-05-13] MEDS: NS IV SCH (09:38)
[2017-05-13] MEDS: LIDOCAINE (LIDODERM) 5% PATCH TOP SCH (10:07)
[2017-05-13] MEDS: RT-ALBUTEROL/IPRATROPIUM 3 ML (DUONEB) VIAL INH SCH ×2 (10:09→18:24)
--- NOTE | 2017-05-13 11:00 | Progress Note-Hospitalist ---
Progress Note HPI/CC on Admission CC: Management of critical illness with acute peritonitis due to bowel perforation with aspiration of bowel contents during intubation HPI: This is a 61-year-old white female clinic patient of Dr. 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 Apparently she was wanting to go to [place] and used to suppository like she usually does because she is struggle with constipation since cardiac meds have been initiated several years ago but at noon time she started having a lot of pain to the extent that required emergency room evaluation. CT scan was obtained found to have bowel perforation with peritonitis and during intubation for surgery she aspirated bowel contents so she now has a diverting colostomy but the pictures during surgery appeared to have a multitude of impacted bowel contents within the abdominal cavity. I did speak with Dr. Horvath her primary care provider and employer and it appears that she is not up-to-date on her colonoscopy and has not had one before and she has had significant constipation issues for the past several years so I hypothesized that impacted stool has been an ongoing problem for her probably stretching the tissue over a long period time and finally rupturing causing this critical illness. She is requiring high doses of Levophed and closely monitoring due to severe sepsis and multisystem organ failure. She has received aggressive IV fluids per protocol and currently monitor closely due to history of arrhythmia maintained on Rythmol as an outpatient. She sees Dr. Ku cardiology at [facility] after she failed undergoing ablation up in [place] years ago. I have consulted cardiology and helmet hat brim cutter and eICU to facilitate management of this critically ill patient. 05/09/17 patient became quite anxious and hypertensive during pressure support trial apparently rather abruptly occurred and nursing staff. O2 saturations dropped to the 70s with altered mental status. There have been no change in medications associated with this. She was taken off of pressure support and placed back on mechanical ventilation. She is ventilating easily time of my arrival eyes were open pupils were 5 mm symmetrical and reactive but the patient was not responsive. She was moving all extremities. 05/10/17 patient is back to baseline state of anxiety and back to baseline levels of CO2 retention. She is resting comfortably upon my arrival and appears to be in no distress although when asked she always volunteers that she is having significant pain. Physical exam findings are unchanged from yesterday chest x-ray and labs are stableexcept for improved ABG levels compared to yesterday's distress levels. Progress Notes/Assess & Plan Date Seen 05/13/17 Time Seen by Provider: 09:00 Admission Dx/Process Assessment: Acute peritonitis from colonic perforation with impacted stool with history of severe chronic constipation status post diverting colostomy POD # 1 Aspiration of bowel contents during intubation for surgery with ventilator- dependent respiratory failure currently History of SVT/AF status post attempted ablation an unsuccessful maintained on Rythmol by Dr. Ku cardiology [facility] History of hypertension Hypothyroidism Leukopenia due to sepsis Hypokalemia Diagonsis/Assessment & Plan Chart Review: No fever Vitals stable Hgb 7.5 ABG 7.39/48/106 on trach CMP normal CXR stable Currently on Diflucan, Zosyn with gent Dr. Ng Review: Pt has not seen Dr. Ng yet today, he will talk to pt and family to help persuade them to allow her to see Dr. Causey. Pharmacy Review: Pt and her family have been irritated and do not want Dr. 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 Ng has ordered a CT Patient Interview: Pt was moved from the bed to a chair by the window immediately prior to interview. RN confirms that this is the first time she has been in a chair this visit. Pt appeared relieved to be sitting up in a chair. Physical exam stable. Chart Review: WBC 16.8 Hgb 8.0 ABG 7.2/42/88 CMP stable No fever, vital signs stable much improved 130/82, much improved, O x 3 Family at the bedside RRR, Coarse breath sounds now resolved Colostomy in place tracheostomy in place Drains in place Assessment: Acute peritonitis from colonic perforation with impacted stool with long history of severe chronic constipation status post diverting colostomy with septic shock requiring pressors and aggressive IVF management now improved and more stable but but unable to extubate as tentatively planned but will begin the wean process after trach placed likely will need [place] Aspiration of bowel contents during intubation for surgery with ventilator- dependent respiratory failure currently maintained on Zosyn and s/p Diflucan History of SVT status post attempted ablation and unsuccessful maintained on Rythmol by Dr. Ku cardiology [facility] consulted Dr Nettles and his recs are appreciated and had an episode of AF last week resolved with suctioning History of hypertension Hypothyroidism Leukopenia due to sepsis now leukocytosis Hypokalemia replacing Metabolic acidosis due to sepsis Thrombocytopenia due to sepsis improved Anemia likely affiliated due to phlebotomy Plan: Replace potassium per protocol Maintain ventilator and appreciate Dr Causey's expertise Empiric antibiotics for peritonitis and aspiration of bowel contents Cardiology recs are appreciated Monitor labs Maintain colostomy SCDs Stable but guarded Increase Morphine dosage as needed Needs [place] Scribed by Teresita Hathaway under the direct supervision of Dr. Rome. DAVY ROME DO May 13, 2017 11:00
[2017-05-13 11:51] LABS: ABG BASE EXCESS 3.6 MMOL/L (-2.5-2.5); ABG HCO3 29 MMOL/L (23-27); ABG OXYGEN SATURATION 99 % (94-100); ABG PCO2 55 MMHG (35-45); ABG PO2 118 MMHG (79-93); ABG TCO2 30.6 MMOL/L (21.0-31.0)
[2017-05-13 11:52] LABS: ABG PH 7.34 (7.37-7.43); PATIENT TEMP 98.6
[2017-05-13] MEDS: oxyCODONE 5 MG/5 ML ORAL SOLN (roxiCODONE) 5 ML UDC PO PRN ×4 (12:17→23:07)
[2017-05-13] MEDS ORDERED: RELABEL FOR HOME USE MC SCH (13:15)
--- NOTE | 2017-05-13 13:22 | Cardiology Progress Note ---
Cardiology SOAP Progress Note Subjective: out of bed in chair Objective: I&O/Vital Signs Vital Sign - Last 12Hours 05/13/17 05/13/17 05/13/17 05/14/17 22:12 23:00 23:11 00:00 Temp 98.7 97.4 97.4 Pulse 86 83 80 81 Resp 22 16 20 14 B/P (MAP) 114/65 92/52 92/52 91/58 Pulse Ox 100 100 100 100 O2 Delivery Mechanical Ventilator Mechanical Ventilator Mechanical Ventilator Mechanical Ventilator O2 Flow Rate 30.00 30.00 FiO2 30 30 05/14/17 05/14/17 05/14/17 05/14/17 00:00 00:04 01:00 01:00 Pulse 84 75 75 Resp 19 15 B/P (MAP) 95/58 Pulse Ox 100 100 100 O2 Delivery Mechanical Ventilator O2 Flow Rate 30.00 FiO2 30 30 05/14/17 05/14/17 05/14/17 05/14/17 02:00 02:14 03:00 04:00 Pulse 71 69 67 Resp 15 16 12 B/P (MAP) 99/61 102/67 Pulse Ox 100 100 100 100 O2 Delivery Mechanical Ventilator Mechanical Ventilator O2 Flow Rate 30.00 30.00 FiO2 30 30 05/14/17 05/14/17 05/14/17 05/14/17 04:00 04:24 05:00 06:00 Temp 97.5 Pulse 68 67 64 64 Resp 11 12 12 12 B/P (MAP) 108/64 115/64 110/72 Pulse Ox 100 100 100 100 O2 Delivery Mechanical Ventilator Mechanical Ventilator Mechanical Ventilator O2 Flow Rate 30.00 30.00 30.00 FiO2 30 05/14/17 05/14/17 05/14/17 06:34 07:00 09:16 Pulse 66 74 65 Resp 13 13 Pulse Ox 100 100 FiO2 30 30 Intake and Output 05/14/17 00:00 Intake Total 2059 ml Output Total 900 ml Balance 1159 ml Weight (Pounds): 195 Weight (Ounces): 8.0 Weight (Calculated Kilograms): [id number] Constitutional: other (status post-trach) Respiratory: No accessory muscle use, No respiratory distress, No chest tender , No chest expansion is symmetric, No chest is bilaterally symmetric, No lungs clear to percussion, No lungs clear to auscultation, No crackles, No rhonchi, No rales, No stridor, No wheezing, No pleural rub, other (Fair bilateral air entry; coarse airway sounds but no rhonchi) Cardiovascular: regular rate-rhythm, tachycardia, S1 and S2, other (Faint WILL at card base) Gastrointestional: other (Recent abdominal surgery, colostomy in place) Extremities: pedal edema, No clubbing, No cyanosis Neurologic/Psychiatric: no motor/sensory deficits, alert Skin: No rash on exposed areas, ulcerations on exposed areas Results/Procedures: Labs Laboratory Tests 05/13/17 11:30: Blood Gas Puncture Site ARTLINE, Blood Gas Patient Temperature 98.6, Arterial Blood pH 7.34*L, Arterial Blood Partial Pressure CO2 55H, Arterial Blood Partial Pressure O2 118H, Arterial Blood HCO3 29H, Arterial Blood Total CO2 30.6 , Arterial Blood Oxygen Saturation 99, Arterial Blood Base Excess 3.6H, Brannon Test N/A, Blood Gas Ventilator Setting NO, Blood Gas Inspired Oxygen 40% 05/14/17 04:35: Blood Gas Puncture Site R RAD, Blood Gas Patient Temperature 97.5, Arterial Blood pH 7.32*L, Arterial Blood Partial Pressure CO2 53H, Arterial Blood Partial Pressure O2 102H, Arterial Blood HCO3 27, Arterial Blood Total CO2 28.5 , Arterial Blood Oxygen Saturation 98, Arterial Blood Base Excess 1.2, Brannon Test ART LINE, Blood Gas Ventilator Setting YES, Blood Gas Inspired Oxygen 30%, White Blood Count 11.5H, Red Blood Count 3.47L, Hemoglobin 10.0#L, Hematocrit 31L, Mean Corpuscular Volume 91, Mean Corpuscular Hemoglobin 29, Mean Corpuscular Hemoglobin Concent 32, Red Cell Distribution Width 15.4H, Platelet Count 339, Mean Platelet Volume 9.8, Neutrophils (%) (Auto) 89H, Lymphocytes (% ) (Auto) 6L, Monocytes (%) (Auto) 5, Eosinophils (%) (Auto) 0, Basophils (%) ( Auto) 0, Neutrophils # (Auto) 10.3H, Lymphocytes # (Auto) 0.6L, Monocytes # ( Auto) 0.6, Eosinophils # (Auto) 0.0, Basophils # (Auto) 0.0, Sodium Level 141, Potassium Level 4.5, Chloride Level 107, Carbon Dioxide Level 24, Anion Gap 10, Blood Urea Nitrogen 34H, Creatinine 0.73, Estimat Glomerular Filtration Rate > 60, BUN/Creatinine Ratio 47H, Glucose Level 147H, Calcium Level 8.2L, Phosphorus Level 4.7, Magnesium Level 1.9 Microbiology 04/30/17 Blood Culture - Final, Complete No growth 05/04/17 Gram Stain - Final, Complete 05/04/17 Sputum Culture - Final, Complete Acinetobacter Baumanii See Comments Presumptive Ivy Albicans 05/12/17 Gram Stain - Final, Resulted 05/12/17 Anaerobic Culture, Resulted Pending 05/12/17 Wound Culture - Preliminary, Resulted No growth A/P: Assessment/Dx: Large bowel perforation, fecal peritonitis, severe septic shock. Nonsustained VT, PAF, Acute diastolic heart failure - resolved Plan: Large bowel perforation status post emergent abdominal surgery by Dr. Ng earlier in the hospital course. Peritonitis/severe septic shock: On broad-spectrum antibiotics. Significant improvement of sepsis. Status post trach, on SIMV mode on Ventilator (Critical Care myopathy). Nonsustained VT: Frequent PVCs. discontinue amio. continue metoprolol. Continue aggressive repletion of electrolytes. started on outpatient dose of propafenone. PAF: currently in sinus rhythm. acute diastolic heart failure - resolved. mild bilateral edema noted. lasix PRN. Thank you for your consultation. Please call me if you have any questions. Jung Foote MD, FACP, FACC, FSCAI, FHRS, CCDS Interventional Cardiology Cardiac Electrophysiology Vascular Medicine and Endovascular Interventions Darshana FOOTE MD May 13, 2017 1:22 pm
[2017-05-13] MEDS: ENOXAPARIN 40 MG/0.4 ML (LOVENOX) SYR SC SCH (14:09)
--- NOTE | 2017-05-13 14:22 | Physical Therapy Daily Note ---
PT Daily Note-Current Subjective Patient in chair pre tx. Nursing states she needs to get back to bed so will be doing that with their assist. Appearance Patient in bed post tx with nursing taking care of attachments. Mental Status multiple Transfers Functional [place] Measure 0=Not Assessed/NA 4=Minimal Assistance 1=Total Assistance 5=Supervision or Setup 2=Maximal Assistance 6=Modified [place] 3=Moderate Assistance 7=Complete IndependenceIRFPAI Quality Coding Scale 6 Independent with activity with or without an assistive device 5 Patient requires set up or clean up by helper. Patient completes activity by themselves 4 Supervision or touching assist (CGA). [place] provide cues , steadying assist 3 The helper provides less than half the effort to complete the activity 2 The helper provides more than half the effort to complete the activity 1 Dependent. The helper does all the effort to complete an activity 7 Patient refused to complete or attempt activity 9 The patient did not perform the activity before the current illness or injury 88 Not attempted due to Medical conditions or safety concerns Transfers (B, C, W/C) (FIM): 1 Bed to/from Chair: 1 stephanie from chair to bed Treatments stephanie transfer from chair to bed Assessment Current Status: Poor Progress no change in mobility PT Chopping Machine Operator Goals Fpc Goals PT Chopping Machine Operator Goals Time Frame: May 13, 2017 Transfers (B,C,W/C) (FIM): 4 Gait (FIM): 2 Gait distance (FIM): 1=up to 49 ft Gait Assistive Device: FWW PT Plan Problem List Problem List: Activity Tolerance, Functional Strength, Safety, Balance, Gait, Transfer, Bed Mobility Treatment/Plan Treatment Plan: Continue Plan of Care Treatment Plan: Bed Mobility, Education, Functional Activity Carlos A, Functional Strength, Gait, Safety, Therapeutic Exercise, Transfers Treatment Duration: May 13, 2017 Visits Per Week: 5-11 Safety Risks/Education Patient Education: Transfer Techniques, Correct Positioning, Safety Issues Teaching Recipient: Patient Teaching Methods: Demonstration, Discussion Response to Teaching: Reinforcement Needed Time/GCodes Time In: 1330 Time Out: 1345 Total Billed Treatment Time: 15 Total Billed Treatment 1 visit FA STEPHANE FRIAS PT May 13, 2017 14:22
--- NOTE | 2017-05-13 14:54 | Occupational Ther Daily Note ---
OT Current Status-Daily Note Subjective Pt. on vent. Eyes are open. She is able to communicate by nodding/shaking head , and by mouthing words. Appearance Pt. in bed. OT/PT explains to her that she will be getting up into chair. Mental Status/Objective Patient Orientation: Person Functional [place] Measure 0=Not Assessed/NA 4=Minimal Assistance 1=Total Assistance 5=Supervision or Setup 2=Maximal Assistance 6=Modified [place] 3=Moderate Assistance 7=Complete [place] Attachments: Drains, Reynolds Catheter, IV, Ventilator Other Treatment PT/OT co-treated pt. due to level of skilled needs. Note that with encouragement, pt. is able to shrug her shoulders slightly, and is able to slightly wiggle fingers. Left hand is swollen, and OT re-applied edema glove. PT/OT worked together to roll pt. side to side and apply stephanie sling. Pt. always encouraged first to attempt this, but unable to move on her own. Pt. is encouraged throughout treatment to keep her eyes open, and to be aware of surroundings. Pt. is transferred via stephanie. However, OT works with UE to keep on chest during transfer. Pt. facilitates LE placement during transfer to chair. Lines and tubes placed and managed during transfer. Once in chair pt. did smile. Pt. engaged in conversation and was asked if she liked being up in the chair. Pt. smiles and nods. Pt. is educated to try and wiggle fingers on her own, and continue shrugging her shoulders to increase with strengthening. Pt. nods and verbalizes understanding. Education OT Patient Education: Correct positioning, Exercise program, Instructions don/ doff splint/brace, Instructions to caregiver, Modified ADL techniques, Progress toward Goal/Update tx plan, Purpose of tx/functional activities, Reviewed precautions, Rehab process, Transfer techniques Teaching Recipient: Patient, Family Teaching Methods: Demonstration, Discussion Response to Teaching: Verbalize Understanding, Return Demonstration OT Short Term Goals Short Term Goals 1=Demonstrate adherence to instructed precautions during ADL tasks. 2=Patient will verbalize/demonstrate understanding of assistive devices/ modifications for ADL. 3=Patient will improve strength/tolerance for activity to enable patient to perform ADL's. OT Alf Goals Custom Harvester Goals Time Frame: May 18, 2017 - Decrease edema to allow functional use bilat UEs. - Increase functional use UEs - Increase participation in basic self care as pt status changes Additional Goals: 3-ImproveStrength/Carlos A 1=Demonstrate adherence to instructed precautions during ADL tasks. 2=Patient will verbalize/demonstrate understanding of assistive devices/ modifications for ADL. 3=Patient will improve strength/tolerance for activity to enable patient to perform ADL's. OT Education/Plan Problem List/Assessment Assessment: Decreased Activ Tolerance, Decreased Safety Aware, Decreased UE Strength, Dependent Transfers, Edema (Pt. wearing compression glove on left hand. Wearing splint for arterial line placement on right wrist.), Impaired Bed Mobility, Impaired Cognition, Impaired Coordination, Impaired Funct Balance , Impaired I ADL's, Impaired Self-Care Skills, Restricted Funct UE ROM, Visual- Perceptual Deficit Pt would benefit from skilled OT to help increase functional use of bilat UEs and independence in basic self care to decrease caregiver burden and assist with discharge planning Discharge Recommendations Plan/Recommendations: Continue POC Therapy D/C Recommendations: Acute Rehab (when medically ready) Target Placement Target placement and equipment unknown at this time. Treatment Plan/Plan of Care Treatment,Training & Education: Yes Patient would benefit from OT for education, treatment and training to promote independence in ADL's, mobility, safety and/or upper extremity function for ADL' s. Plan of Care: ADL Retraining (when appropriate), Caregiver Training, Functional Mobility, UE Funct Exercise/Act, UE Neuromus Re-Ed/Coord, W/C Management Training Treatment Duration: May 18, 2017 Visits Per Week: 5 Agreement: No (pt unable to participate in decision making. No family present) Rehab Potential: Guarded Time/GCodes Start Time: 09:00 Stop Time: 09:30 Total Time Billed (hr/min): 30 Billed Treatment Time 1, FA x 1 30 (15 minutes) co-treated with PT Please see above explanation for designated roles. JAILYN ASHER OT May 13, 2017 14:54
--- NOTE | 2017-05-13 15:34 | Progress Note-Standard ---
Standard Progress Note Progress Notes/Assess & Plan Date Seen by Provider: May 13, 2017 Time Seen by Provider: 14:25 Progress/Assessment & Plan 04/26/17:septic with severe leukopenia. Very poor urine output. On dual vasopressors. Sinus tachycardia. Outcome poor with expected mortality. Central venous pressure around 12. We'll continue to provide fluid resuscitation and maintain vasopressors for now. 04/27/17:continues to require vasopressor support. Urine output reasonable. Creatinine slightly elevated. Ventilation and oxygenation stable. Will place a wound VAC tomorrow. Continue supportive abdomen. Enteral nutrition in 24- 48 hours. DVT prophylaxis with low molecular weight heparin, renally adjusted dose 04/28/17:off the vasopressors. Renal function reasonable.NG output more than 1 L and therefore tube feeding will be delayed.electrolytes satisfactory.we'll continue current management. 04/29/17:Improving. Would facilitate diuresis before embarking on extubation. Intra-abdominal abscesses to be looked for by next week. L femoral arterial line satisfactory with no distal ischemia. Nutritional support in 24-48 hours. 04/30/17:slight change in her condition with decreased urine output and leukocytosis. Abdominal abscess in evolution very likely the culprit. More opacification of the right lung. We will try enteral feeding. Continue antibiotics 05/01/17 Diuresis in progress. Pressure mattress appropriate to prevent skin breakdown. Fascia intact. Tolerating tube feeds. Vent weaning over terrie next 24- 48 hours. HIT antibodies negative 05/04/17: Reintubated. Anasarca improved. Fascia intact. Intra-abdominal abscesses to be expected. CT scan in 48 hours. Tracheostomy discussed with the family and planned for this week 05/05/17:CONTINUES TO IMPROVE. pOOR MUSCLE STRENGTH. tRACHEOSTOMY IN [address] SCAN TOMORROW MORNING. 05/06/17:Intra-abdominal and pelvic abscesses drained percutaneously. Tracheostomy tomorrow. 05/08/17: Anxious and tearful, expected. Jejunal feeding in progress. Possible pseudomonas in cultures. Vent weaning initiated 05/11/17: Fluctuating temperature, possibly due to additional intra-abdominal abscesses. CT/drainage planned for tomorrow. Anasarca. Poor muscle strength 05/12/17: No major changes in her condition. Repeat CT scan ending. Vent weaning attempts in progress. Poor muscle strength. 05/13/17:improvements with weaning attempts. Patient is very upset about not being able to get the required pain medications due tochanges and orders laced by Dr. Causey. Hemoglobin decreased to 7.5 and transfusion would be in order. Output from the radius drains very minimal and would therefore be removed soon. Final Diagnosis fecal peritonitis MACY TALAVERA MD May 13, 2017 3:34 pm
--- NOTE | 2017-05-13 15:37 | Physical Therapy Daily Note ---
PT Daily Note-Current Subjective Agreeable to PT. Once up in the chair, indicates she wants to look out the window. Mental Status Patient Orientation: Person Transfers Functional [place] Measure 0=Not Assessed/NA 4=Minimal Assistance 1=Total Assistance 5=Supervision or Setup 2=Maximal Assistance 6=Modified [place] 3=Moderate Assistance 7=Complete IndependenceIRFPAI Quality Coding Scale 6 Independent with activity with or without an assistive device 5 Patient requires set up or clean up by helper. Patient completes activity by themselves 4 Supervision or touching assist (CGA). [place] provide cues , steadying assist 3 The helper provides less than half the effort to complete the activity 2 The helper provides more than half the effort to complete the activity 1 Dependent. The helper does all the effort to complete an activity 7 Patient refused to complete or attempt activity 9 The patient did not perform the activity before the current illness or injury 88 Not attempted due to Medical conditions or safety concerns Treatments Treatment co treat with OT as OT addressed positioning and placement and PT addressed gross transfer. Dawna transfer bed to chair. Pt up in chair post treatment looking out the window with daughter and nursing present. Pt is dependent to roll and position lift under her. Dependent for transfer using the dawna. Assessment Current Status: Good Progress Pt tolerated the transfer much better than expected. Vitals remained stable throughout treatment. PT Scientific Informatics Project Leader Goals Nursing Home Goals PT Scientific Informatics Project Leader Goals Time Frame: May 13, 2017 Transfers (B,C,W/C) (FIM): 4 Gait (FIM): 2 Gait distance (FIM): 1=up to 49 ft Gait Assistive Device: FWW PT Plan Problem List Problem List: Activity Tolerance, Functional Strength Treatment/Plan Treatment Plan: Continue Plan of Care Treatment Plan: Bed Mobility, Education, Functional Activity Carlos A, Functional Strength, Gait, Safety, Therapeutic Exercise, Transfers Treatment Duration: May 13, 2017 Visits Per Week: 5-11 Time/GCodes Time In: 900 Time Out: 930 Total Billed Treatment Time: 15 Total Billed Treatment visit FA 15 Co treat with OT--other 15 goes to OT LILY Hernandez PT May 13, 2017 15:37
[2017-05-13] MEDS: PROPAFENONE 225 MG TAB PO SCH ×2 (16:05→21:17)
[2017-05-13] MEDS ORDERED: NS IV 500 ML 500 ML ONE (17:22)
[2017-05-13] MEDS: LIDOCAINE PATCH REMOVAL TP SCH (21:00)
[2017-05-13] MEDS ORDERED: NON-FORMULARY MEDICATION 1 EA EA (Propafenone HCl 225 MG) PO SCH (21:00)
[2017-05-14] VITALS (35 sets, daily range): BP systolic 91–270; BP diastolic 49–94
[2017-05-14] MEDS: morphine INJ 4 MG/ML 1 ML (VIAL/SYRINGE) IVP PRN ×7 (01:36→20:35)
[2017-05-14] MEDS: RT-ALBUTEROL/IPRATROPIUM 3 ML (DUONEB) VIAL INH SCH ×5 (02:00→22:00)
[2017-05-14] MEDS: DEXMEDETOMIDINE INJECTION 200 MCG in NS (IVPB) 50 ML IV SCH ×3 (02:34→22:12)
[2017-05-14] MEDS: IBUPROFEN SUSP 100MG/5ML (MOTRIN) UDC PO PRN ×3 (03:13→18:10)
[2017-05-14] MEDS: oxyCODONE 5 MG/5 ML ORAL SOLN (roxiCODONE) 5 ML UDC PO PRN ×5 (03:13→22:12)
[2017-05-14 04:42] LABS: ABG BASE EXCESS 1.2 MMOL/L (-2.5-2.5); ABG HCO3 27 MMOL/L (23-27); ABG OXYGEN SATURATION 98 % (94-100); ABG PCO2 53 MMHG (35-45); ABG PO2 102 MMHG (79-93); ABG TCO2 28.5 MMOL/L (21.0-31.0)
[2017-05-14 04:44] LABS: BASOPHILS % (AUTO) 0 % (0-10); EOSINOPHILS % (AUTO) 0 % (0-10); LYMPHOCYTES # (AUTO) 0.6 X 10^3 (1.0-4.0); LYMPHOCYTES % (AUTO) 6 % (12-44); MEAN CORPUSCULAR HEMOGLOBIN 29 PG (25-34); MEAN CORPUSCULAR HGB CONC 32 G/DL (32-36); MEAN CORPUSCULAR VOLUME 91 FL (80-99); MEAN PLATELET VOLUME 9.8 FL (7.4-10.4); MONOCYTES # (AUTO) 0.6 X 10^3 (0.0-1.0); MONOCYTES % (AUTO) 5 % (0-12); NEUTROPHILS # (AUTO) 10.3 X 10^3 (1.8-7.8); NEUTROPHILS % (AUTO) 89 % (42-75); PLATELET COUNT 339 10^3/uL (130-400); RED BLOOD COUNT 3.47 10^6/uL (4.35-5.85); RED CELL DISTRIBUTION WIDTH 15.4 % (10.0-14.5); WHITE BLOOD COUNT 11.5 10^3/uL (4.3-11.0)
[2017-05-14 04:47] LABS: ALLENS TEST ART LINE; PATIENT TEMP 97.5
[2017-05-14 04:49] LABS: ABG PH 7.32 (7.37-7.43)
[2017-05-14 05:29] LABS: ANION GAP 10 MMOL/L (5-14); BLOOD UREA NITROGEN 34 MG/DL (7-18); BUN/CREATININE RATIO 47 (0-20); CALCIUM 8.2 MG/DL (8.5-10.1); CARBON DIOXIDE 24 MMOL/L (21-32); CHLORIDE 107 MMOL/L (98-107); CREATININE SERUM 0.73 MG/DL (0.60-1.30); GFR ESTIMATED > 60; GLUCOSE 147 MG/DL (70-105); HEMOLYSIS 6 (0-29); ICTERUS 0.4 (0-1.9); LIPEMIA 1 (0-49); MAGNESIUM 1.9 MG/DL (1.8-2.4); PHOSPHORUS 4.7 MG/DL (2.3-4.7); POTASSIUM 4.5 MMOL/L (3.6-5.0); SODIUM 141 MMOL/L (135-145)
[2017-05-14] MEDS: POTASSIUM CL 10MEQ/50ML IVPB 50 ML IV SCH (05:37)
[2017-05-14] MEDS: MAGNESIUM 1 GM/100 ML IVPB 100 ML IV SCH (05:37)
[2017-05-14] MEDS: KCL 20 MEQ TAB (K-DUR) PO SCH (05:37)
[2017-05-14] MEDS: PIPERACILLIN SODIUM/TAZOBACTAM 4.5 GM in NS (IVPB) 100 ML IV SCH ×3 (06:06→22:12)
[2017-05-14] MEDS: METOCLOPRAMIDE INJ 10 MG/2 ML (REGLAN) IVP SCH ×4 (06:06→23:09)
[2017-05-14] MEDS: RT-ALBUTEROL SULF 2.5 MG/3 ML PRE-MIX VIAL IH SCH (06:34)
[2017-05-14] MEDS: aCETylcysteine 20% (MUCOMYST) 30ML SOLN VIAL INH SCH (06:34)
--- NOTE | 2017-05-14 07:26 | Pulmonary Progress Note ---
Subjective Subjective/Events-last exam PT is doing better today. She did get up to chair yesterday. Exam Exam Vital Signs Date Time Temp Pulse Resp B/P (MAP) Pulse Ox O2 Delivery O2 Flow Rate FiO2 05/14/17 06:34 66 13 100 30 05/14/17 06:00 64 12 110/72 100 Mechanical Ventilator 30.00 05/14/17 05:00 64 12 115/64 100 Mechanical Ventilator 30.00 05/14/17 04:24 67 12 100 30 05/14/17 04:00 97.5 68 11 108/64 100 Mechanical Ventilator 30.00 05/14/17 04:00 100 30 05/14/17 03:00 67 12 102/67 100 Mechanical Ventilator 30.00 05/14/17 02:14 69 16 100 30 05/14/17 02:00 71 15 99/61 100 Mechanical Ventilator 30.00 05/14/17 01:00 75 05/14/17 01:00 75 15 95/58 100 Mechanical Ventilator 30.00 05/14/17 00:04 84 19 100 30 05/14/17 00:00 100 30 05/14/17 00:00 97.4 81 14 91/58 100 Mechanical Ventilator 30.00 05/13/17 23:11 97.4 80 20 92/52 100 Mechanical Ventilator 30 05/13/17 23:00 83 16 92/52 100 Mechanical Ventilator 30.00 05/13/17 22:12 98.7 86 22 114/65 100 Mechanical Ventilator 30 05/13/17 22:00 92 22 114/65 100 Mechanical Ventilator 30.00 05/13/17 21:57 99.4 91 24 160/86 100 Mechanical Ventilator 30 05/13/17 21:56 92 23 100 30 05/13/17 21:30 97.3 84 24 173/85 100 Mechanical Ventilator 30 05/13/17 21:00 120 22 160/86 100 Mechanical Ventilator 30.00 05/13/17 20:00 99.7 118 26 173/85 100 Mechanical Ventilator 30.00 05/13/17 20:00 100 30 05/13/17 19:59 114 25 100 30 05/13/17 19:00 100 05/13/17 19:00 100 28 237/149 89 Mechanical Ventilator 30.00 05/13/17 18:24 88 20 100 30 05/13/17 18:08 97.3 85 147/77 05/13/17 18:06 97.3 85 147/77 05/13/17 17:58 88 25 165/74 100 Mechanical Ventilator 40.00 05/13/17 17:55 97.3 86 165/74 05/13/17 16:23 83 23 100 30 05/13/17 16:00 89 24 188/85 100 Mechanical Ventilator 40.00 05/13/17 15:20 100 40 05/13/17 15:00 98 25 179/89 100 Mechanical Ventilator 40.00 05/13/17 14:26 87 27 100 30 05/13/17 14:00 87 27 190/77 100 Mechanical Ventilator 40.00 05/13/17 13:00 102 05/13/17 13:00 87 22 153/77 100 Mechanical Ventilator 40.00 05/13/17 12:04 94 20 100 40 05/13/17 12:00 93 22 152/78 100 Mechanical Ventilator 40.00 05/13/17 12:00 98.8 05/13/17 12:00 100 40 05/13/17 11:00 94 19 150/71 100 Mechanical Ventilator 40.00 05/13/17 10:10 89 20 100 40 05/13/17 10:00 86 19 154/77 100 Mechanical Ventilator 40.00 05/13/17 08:50 114 26 100 40 05/13/17 08:00 100 40 05/13/17 08:00 98.4 05/13/17 08:00 100 21 130/39 100 Mechanical Ventilator 40.00 148/68 I & O 05/14/17 07:00 Intake Total 4176 ml Output Total 1495 ml Balance 2681 ml General Appearance: No Apparent Distress (pt is awake/alert and comfortable on vent), Chronically ill Neck: Full Range of Motion, Normal Inspection Respiratory: No Accessory Muscle Use, No Respiratory Distress, Decreased Breath Sounds, Other (scattered rhonchi without wheezing. Breath sounds are equal bilaterally) Cardiovascular: Regular Rate, Rhythm, No Edema, No Gallop, No JVD, Normal Peripheral Pulses, Other (1 to 2/6 systolic ejection murmur heard at the left lower sternal border.) Capillary Refill: Less Than 3 Seconds Gastrointestinal: soft, tenderness Extremity: Other Neurologic/Psychiatric: Alert Skin: Normal Color, Warm/Dry, Pallor Lymphatic: No Adenopathy Results Lab Laboratory Tests 05/13/17 04:45 05/13/17 07:26 05/14/17 04:35 Assessment/Plan Assessment/Plan Acute respiratory failure since postop secondary to aspiration of bowel contents -- sputum is growing MDR Acinetobacter - continue Precedex - zosyn, gent, Flagyl -s/p tracheostomy - Acute respiratory failure is now becoming chronic respiratory failure -Pt needs aggressive rehab as tolerated unless pt/family decides on hospice/ comfort care only treatment Abdominal abscess s/p drain placement x 3 -Pain control with morphine 1-2 mg IV Q2 PRN -oxycodone added yesterday for better pain management -I was told family is upset because I have decreased pain meds/sedation. I have decreased sedation meds to get pt more awake/alert and to be able to participate in PT/OT. Pt is very weak and this is the main reason I have not been able to wean ventilator. I have been trying to wean ventilator and she has not been tolerating it. I believe the pain meds/sedation are decreasing her respiratory drive. When I realized pain meds were decreased to much I added Oxycodone for longer acting pain management yesterday. The only way patient is going to improve and get off vent is to get her moving more and participating in PT/OT. I had meeting with patient and family at bedside. Daughter is a RN. After explaining hospital coarse and current condition along with plan of care family and patient is in agreement with everything that we are doing. They also agree their frustration was due to miscommunication. I am always in ICU starting at 6AM until all work is complete. Family has been coming to see patient in the afternoon. Since they know where/when to find me if they have any questions/ concerns they will be here in the morning hours. They appreciated our meeting and they are comfortable with our plan of care. Anemia - monitor - ASPIRATION PNA with MDR Acinetobacter -S/P bronchoscopy mucous plugging -- resolved -D/C Mucomyst Hypernatremia/hyperchloremia - Secondary to saline - -IVF D5W and 20 KCL to KVO fee water NG flush to Q8 100cc Malnutrition/debility/weakness -TF with pulmicare -- tolerating well - Dobbhoff placement today -Pt is getting IV Synthroid -repeat TSH HX of SVT/AF -LABS AND CXR reviewed 233 120 min was spent with patient, family and medical care team discussing plan of care Including RN, RT, ICU directer, and PT /OT. I have also discussed the issues with Dr. Ng and Dr. Santos. Clinical Quality Measures DVT/VTE Risk/Contraindication: Risk Factor Score Per Nursin RFS Level Per Nursing on Admit: 4+=Very High CHRISS ARTIS DO May 14, 2017 07:26
--- NOTE | 2017-05-14 08:54 | Diagnostic Imaging Report ---
Semiupright portable radiograph of the chest. INDICATION: Abdominal abscesses with respiratory failure. COMPARISON: 05/13/2017. FINDINGS: There is mild cardiomegaly. There is opacification of the retrocardiac region probably related to effusion and left lower lobe atelectasis or infiltrate. There is suggestion of a small effusion on the right side with right basilar infiltrate or atelectasis. The findings are slightly increased compared to previous study. There are PICC lines and feeding tube and upper abdominal drains unchanged from the previous study. No pneumothorax. The kirby and mediastinum appear similar to the previous exam. IMPRESSION: Bilateral effusions with bibasilar infiltrate or atelectasis more on the left side. Dictated by: Dictated on workstation # [id number]
[2017-05-14] MEDS: NS IV SCH (09:32)
[2017-05-14] MEDS: GENTAMICIN IV SCH (09:32)
[2017-05-14] MEDS: FLUCONAZOLE 100 MG/50 ML 50 ML IV SCH (09:32)
[2017-05-14] MEDS: FUROSEMIDE 40 MG/4 ML INJ (LASIX) IVP SCH (09:33)
[2017-05-14] MEDS: LIDOCAINE (LIDODERM) 5% PATCH TOP SCH (09:33)
[2017-05-14] MEDS: meTOprolol TARTRATE 25 MG (LOPRESSOR) TABLET PO SCH ×2 (09:33→20:35)
[2017-05-14] MEDS: PROPAFENONE 225 MG TAB PO SCH ×3 (09:33→20:36)
[2017-05-14] MEDS: LEVOTHYROXINE 100 MCG INJ (SYNTHROID) VIAL IV SCH (09:33)
[2017-05-14] MEDS: PANTOPRAZOLE 40 MG/10 ML (PROTONIX) VIAL IVP SCH (09:37)
[2017-05-14] MEDS: CATHETER FLUSH 10 ML SYR IV SCH ×2 (09:38→20:36)
--- NOTE | 2017-05-14 10:31 | Physical Therapy Daily Note ---
PT Daily Note-Current Subjective Agreeable. Post treatment, indicates that she is comfortable up in the chair. Transfers Functional [place] Measure 0=Not Assessed/NA 4=Minimal Assistance 1=Total Assistance 5=Supervision or Setup 2=Maximal Assistance 6=Modified [place] 3=Moderate Assistance 7=Complete IndependenceIRFPAI Quality Coding Scale 6 Independent with activity with or without an assistive device 5 Patient requires set up or clean up by helper. Patient completes activity by themselves 4 Supervision or touching assist (CGA). [place] provide cues , steadying assist 3 The helper provides less than half the effort to complete the activity 2 The helper provides more than half the effort to complete the activity 1 Dependent. The helper does all the effort to complete an activity 7 Patient refused to complete or attempt activity 9 The patient did not perform the activity before the current illness or injury 88 Not attempted due to Medical conditions or safety concerns Treatments Dependent for rolling in bed to place dawna sling. Dawna up to chair after arranging multiple cords and lines to safely transfer her. Pt up in chair post transfer. Worked a bit on AAROM for DF and LAQ; pt able to initiate a mm contraction but needs max assist to move through the full range. Also performed isometric hip abd/add--trace mm movement and GS. Will check on pt at noon and decide if she is ready to return to bed or not. Assessment Pt tolerated very well and is comfortable up in the chair. Trace muscle movement with AP and LAQ. Edema noted B LE's. PT Tip Cementer Goals Tip Cementer Goals PT Senior Living Goals Time Frame: May 13, 2017 Transfers (B,C,W/C) (FIM): 4 Gait (FIM): 2 Gait distance (FIM): 1=up to 49 ft Gait Assistive Device: FWW PT Plan Problem List Problem List: Activity Tolerance, Functional Strength Treatment/Plan Treatment Plan: Continue Plan of Care Treatment Plan: Bed Mobility, Education, Functional Activity Carlos A, Functional Strength, Gait, Safety, Therapeutic Exercise, Transfers Treatment Duration: May 13, 2017 Visits Per Week: 5-11 Time/GCodes Time In: 945 Time Out: 1023 Total Billed Treatment Time: 38 Total Billed Treatment visit FA 28 EX 10 LILY MATTHEWS PT May 14, 2017 10:31
--- NOTE | 2017-05-14 11:01 | Progress Note-Hospitalist ---
Progress Note HPI/CC on Admission CC: Management of critical illness with acute peritonitis due to bowel perforation with aspiration of bowel contents during intubation HPI: This is a 61-year-old white female clinic patient of Dr. 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 Apparently she was wanting to go to [place] and used to suppository like she usually does because she is struggle with constipation since cardiac meds have been initiated several years ago but at noon time she started having a lot of pain to the extent that required emergency room evaluation. CT scan was obtained found to have bowel perforation with peritonitis and during intubation for surgery she aspirated bowel contents so she now has a diverting colostomy but the pictures during surgery appeared to have a multitude of impacted bowel contents within the abdominal cavity. I did speak with Dr. Horvath her primary care provider and employer and it appears that she is not up-to-date on her colonoscopy and has not had one before and she has had significant constipation issues for the past several years so I hypothesized that impacted stool has been an ongoing problem for her probably stretching the tissue over a long period time and finally rupturing causing this critical illness. She is requiring high doses of Levophed and closely monitoring due to severe sepsis and multisystem organ failure. She has received aggressive IV fluids per protocol and currently monitor closely due to history of arrhythmia maintained on Rythmol as an outpatient. She sees Dr. Ku cardiology at [place] after she failed undergoing ablation up in [place] years ago. I have consulted cardiology and jacquard loom card changer and eICU to facilitate management of this critically ill patient. 05/09/17 patient became quite anxious and hypertensive during pressure support trial apparently rather abruptly occurred and nursing staff. O2 saturations dropped to the 70s with altered mental status. There have been no change in medications associated with this. She was taken off of pressure support and placed back on mechanical ventilation. She is ventilating easily time of my arrival eyes were open pupils were 5 mm symmetrical and reactive but the patient was not responsive. She was moving all extremities. 05/10/17 patient is back to baseline state of anxiety and back to baseline levels of CO2 retention. She is resting comfortably upon my arrival and appears to be in no distress although when asked she always volunteers that she is having significant pain. Physical exam findings are unchanged from yesterday chest x-ray and labs are stableexcept for improved ABG levels compared to yesterday's distress levels. Progress Notes/Assess & Plan Date Seen 05/14/17 Time Seen by Provider: 09:00 Admission Dx/Process Assessment: Acute peritonitis from colonic perforation with impacted stool with history of severe chronic constipation status post diverting colostomy POD # 1 Aspiration of bowel contents during intubation for surgery with ventilator- dependent respiratory failure currently History of SVT/AF status post attempted ablation an unsuccessful maintained on Rythmol by Dr. Ku cardiology [place] History of hypertension Hypothyroidism Leukopenia due to sepsis Hypokalemia Diagonsis/Assessment & Plan Chart Review: No fever Vitals stable WBC 11.5 Hgb 10 Status post 2 units of blood yesterday ABG 7.32/53/102 CMP normal SW Review: Jag from [place] will meet with the pt and family today Family said that she will not be going to [place] Patient Interview: Pt verbalized that she is doing okay and nodded that she enjoyed being in her chair yesterday Physical exam stable Pt was informed that her labs look good and she is on track No fever, vital signs stable, much improved, O x 3 Family at the bedside RRR, Coarse breath sounds now resolved Colostomy in place tracheostomy in place Drains in place Assessment: Acute peritonitis from colonic perforation with impacted stool with long history of severe chronic constipation status post diverting colostomy with septic shock requiring pressors and aggressive IVF management now improved and more stable but but unable to extubate as tentatively planned but will begin the wean process after trach placed likely will need [place] or long-term facility Aspiration of bowel contents during intubation for surgery with ventilator- dependent respiratory failure currently maintained on Zosyn and s/p Diflucan History of SVT status post attempted ablation and unsuccessful maintained on Rythmol by Dr. Ku cardiology Shanta consulted Dr Nettles and his recs are appreciated and had an episode of AF last week resolved with suctioning History of hypertension Hypothyroidism Leukopenia due to sepsis now leukocytosis Hypokalemia replacing Metabolic acidosis due to sepsis Thrombocytopenia due to sepsis improved Anemia likely affiliated due to phlebotomy s/p 2 units of blood today Plan: Monitor labs Maintain colostomy SCDs Stable but guarded Morphine dosage as needed Needs [place], but family does not want her there so will need to evaluate alternative placement Scribed by Teresita Hathaway under the direct supervision of Dr. Rome. DAVY ROME DO May 14, 2017 11:01
--- NOTE | 2017-05-14 12:33 | Cardiology Progress Note ---
Cardiology SOAP Progress Note Subjective: Still weak however feeling a little better than yesterday Objective: I&O/Vital Signs Vital Sign - Last 12Hours 05/14/17 05/14/17 05/14/17 05/14/17 01:00 01:00 02:00 02:14 Pulse 75 75 71 69 Resp 15 15 16 B/P (MAP) 95/58 99/61 Pulse Ox 100 100 100 O2 Delivery Mechanical Ventilator Mechanical Ventilator O2 Flow Rate 30.00 30.00 FiO2 30 05/14/17 05/14/17 05/14/17 05/14/17 03:00 04:00 04:00 04:24 Temp 97.5 Pulse 67 68 67 Resp 12 11 12 B/P (MAP) 102/67 108/64 Pulse Ox 100 100 100 100 O2 Delivery Mechanical Ventilator Mechanical Ventilator O2 Flow Rate 30.00 30.00 FiO2 30 30 05/14/17 05/14/17 05/14/17 05/14/17 05:00 06:00 06:34 07:00 Pulse 64 64 66 74 Resp 12 12 13 B/P (MAP) 115/64 110/72 Pulse Ox 100 100 100 O2 Delivery Mechanical Ventilator Mechanical Ventilator O2 Flow Rate 30.00 30.00 FiO2 30 05/14/17 05/14/17 05/14/17 05/14/17 08:00 08:00 09:16 10:12 Temp 97.7 Pulse 65 64 Resp 13 21 Pulse Ox 100 100 100 FiO2 30 30 30 05/14/17 05/14/17 05/14/17 12:17 12:18 12:18 Temp 97.5 Pulse 87 Resp 24 Pulse Ox 100 100 FiO2 30 30 Intake and Output 05/14/17 00:00 Intake Total 2059 ml Output Total 900 ml Balance 1159 ml Weight (Pounds): 206 Weight (Ounces): 9.0 Weight (Calculated Kilograms): [id number] Constitutional: other (status post-trach) Respiratory: No accessory muscle use, No respiratory distress, No chest tender , No chest expansion is symmetric, No chest is bilaterally symmetric, No lungs clear to percussion, No lungs clear to auscultation, No crackles, No rhonchi, No rales, No stridor, No wheezing, No pleural rub, other (Fair bilateral air entry; coarse airway sounds but no rhonchi) Cardiovascular: regular rate-rhythm, tachycardia, S1 and S2, other (Faint WILL at card base) Gastrointestional: other (Recent abdominal surgery, colostomy in place) Extremities: pedal edema, No clubbing, No cyanosis Neurologic/Psychiatric: no motor/sensory deficits, alert Skin: No rash on exposed areas, ulcerations on exposed areas Results/Procedures: Labs Laboratory Tests 05/14/17 04:35: White Blood Count 11.5H, Red Blood Count 3.47L, Hemoglobin 10.0#L, Hematocrit 31L, Mean Corpuscular Volume 91, Mean Corpuscular Hemoglobin 29, Mean Corpuscular Hemoglobin Concent 32, Red Cell Distribution Width 15.4H, Platelet Count 339, Mean Platelet Volume 9.8, Neutrophils (%) (Auto) 89H, Lymphocytes (% ) (Auto) 6L, Monocytes (%) (Auto) 5, Eosinophils (%) (Auto) 0, Basophils (%) ( Auto) 0, Neutrophils # (Auto) 10.3H, Lymphocytes # (Auto) 0.6L, Monocytes # ( Auto) 0.6, Eosinophils # (Auto) 0.0, Basophils # (Auto) 0.0, Blood Gas Puncture Site R RAD, Blood Gas Patient Temperature 97.5, Arterial Blood pH 7.32*L, Arterial Blood Partial Pressure CO2 53H, Arterial Blood Partial Pressure O2 102H , Arterial Blood HCO3 27, Arterial Blood Total CO2 28.5, Arterial Blood Oxygen Saturation 98, Arterial Blood Base Excess 1.2, Brannon Test ART LINE, Blood Gas Ventilator Setting YES, Blood Gas Inspired Oxygen 30%, Sodium Level 141, Potassium Level 4.5, Chloride Level 107, Carbon Dioxide Level 24, Anion Gap 10, Blood Urea Nitrogen 34H, Creatinine 0.73, Estimat Glomerular Filtration Rate > 60, BUN/Creatinine Ratio 47H, Glucose Level 147H, Calcium Level 8.2L, Phosphorus Level 4.7, Magnesium Level 1.9 Microbiology 04/30/17 Blood Culture - Final, Complete No growth 05/04/17 Gram Stain - Final, Complete 05/04/17 Sputum Culture - Final, Complete Acinetobacter Baumanii See Comments Presumptive Ivy Albicans 05/12/17 Gram Stain - Final, Resulted 05/12/17 Anaerobic Culture, Resulted Pending 05/12/17 Wound Culture - Preliminary, Resulted No growth A/P: Assessment/Dx: Large bowel perforation, fecal peritonitis, severe septic shock. Nonsustained VT, PAF, Acute diastolic heart failure - resolved Plan: Large bowel perforation status post emergent abdominal surgery by Dr. Ng earlier in the hospital course. Peritonitis/severe septic shock: On broad-spectrum antibiotics. Significant improvement of sepsis. Status post trach, on SIMV mode on Ventilator (Critical Care myopathy). Nonsustained VT: Frequent PVCs. discontinue amio. continue metoprolol. Continue aggressive repletion of electrolytes. started on outpatient dose of propafenone. PAF: currently in sinus rhythm. acute diastolic heart failure - resolved. mild bilateral edema noted. lasix PRN. Thank you for your consultation. Please call me if you have any questions. Jung Foote MD, FACP, FACC, FSCAI, FHRS, CCDS Interventional Cardiology Cardiac Electrophysiology Vascular Medicine and Endovascular Interventions Darshana FOOTE MD May 14, 2017 12:33
[2017-05-14] MEDS: ENOXAPARIN 40 MG/0.4 ML (LOVENOX) SYR SC SCH (13:31)
--- NOTE | 2017-05-14 14:19 | Progress Note-Standard ---
Standard Progress Note Progress Notes/Assess & Plan Date Seen by Provider: May 14, 2017 Time Seen by Provider: 09:14 Progress/Assessment & Plan 04/26/17:septic with severe leukopenia. Very poor urine output. On dual vasopressors. Sinus tachycardia. Outcome poor with expected mortality. Central venous pressure around 12. We'll continue to provide fluid resuscitation and maintain vasopressors for now. 04/27/17:continues to require vasopressor support. Urine output reasonable. Creatinine slightly elevated. Ventilation and oxygenation stable. Will place a wound VAC tomorrow. Continue supportive abdomen. Enteral nutrition in 24- 48 hours. DVT prophylaxis with low molecular weight heparin, renally adjusted dose 04/28/17:off the vasopressors. Renal function reasonable.NG output more than 1 L and therefore tube feeding will be delayed.electrolytes satisfactory.we'll continue current management. 04/29/17:Improving. Would facilitate diuresis before embarking on extubation. Intra-abdominal abscesses to be looked for by next week. L femoral arterial line satisfactory with no distal ischemia. Nutritional support in 24-48 hours. 04/30/17:slight change in her condition with decreased urine output and leukocytosis. Abdominal abscess in evolution very likely the culprit. More opacification of the right lung. We will try enteral feeding. Continue antibiotics 05/01/17 Diuresis in progress. Pressure mattress appropriate to prevent skin breakdown. Fascia intact. Tolerating tube feeds. Vent weaning over terrie next 24- 48 hours. HIT antibodies negative 05/04/17: Reintubated. Anasarca improved. Fascia intact. Intra-abdominal abscesses to be expected. CT scan in 48 hours. Tracheostomy discussed with the family and planned for this week 05/05/17:CONTINUES TO IMPROVE. pOOR MUSCLE STRENGTH. tRACHEOSTOMY IN [address] SCAN TOMORROW MORNING. 05/06/17:Intra-abdominal and pelvic abscesses drained percutaneously. Tracheostomy tomorrow. 05/08/17: Anxious and tearful, expected. Jejunal feeding in progress. Possible pseudomonas in cultures. Vent weaning initiated 05/11/17: Fluctuating temperature, possibly due to additional intra-abdominal abscesses. CT/drainage planned for tomorrow. Anasarca. Poor muscle strength 05/12/17: No major changes in her condition. Repeat CT scan ending. Vent weaning attempts in progress. Poor muscle strength. 05/13/17:improvements with weaning attempts. Patient is very upset about not being able to get the required pain medications due tochanges and orders laced by Dr. Causey. Hemoglobin decreased to 7.5 and transfusion would be in order. Output from the radius drains very minimal and would therefore be removed soon. 05/14/17:continues to improve. Very minimal output from the initial set of drains placed a week ago. These will be removed soon.more awake. Physical therapy in progress. Weaning attempts to proceed Final Diagnosis fecal peritonitis. ventilatory failure. Weakness. MACY TALAVERA MD May 14, 2017 2:19 pm
--- NOTE | 2017-05-14 15:10 | Occ Therapy Progress Note ---
Therapy Progress Note Attempted treatment this morning. Pt. and family getting ready for family conference with Came back later. Pt. in bed. Family in room. Pt. is alert and declines therapy by shaking head. OT and family are able to decifer what Pt. is mouthing, which is that she "can't breathe well." Sats at 100% per monitor. Nursing in room. Pt. declines again. OT checked left hand. Swelling has went down with neoprene glove that was put back on yesterday. Pt. still has very little active movement in bilateral fingers. When asked if she had actively been trying to move them this date, she shook head no and mouthed the words again, "I can't breathe." [id number] 1, visit Declined treatment no charge JAILYN ASHER OT May 14, 2017 15:10
[2017-05-14] MEDS: LIDOCAINE PATCH REMOVAL TP SCH (20:36)
[2017-05-14] MEDS ORDERED: NS (IVPB) 50 ML ONE (22:02)
[2017-05-14] MEDS ORDERED: hydrALAZINE (APESOLINE) 20 MG/ML VIAL ONE (22:11)
[2017-05-14] MEDS ORDERED: hydrALAZINE (APESOLINE) 20 MG/ML VIAL IV ONE (22:30)
[2017-05-14] MEDS ORDERED: morphine INJ 10 MG/ML 1ML (SYR OR VIAL) IVP ONE (22:45)
[2017-05-14] MEDS ORDERED: meTOprolol 5 MG/5 ML (LOPRESSOR) VIAL IV ONE (23:15)
[2017-05-15] VITALS (30 sets, daily range): BP systolic 124–194; BP diastolic 42–94
[2017-05-15] MEDS: POTASSIUM CHLORIDE IV SCH (00:27)
[2017-05-15] MEDS: D5W IV SCH (00:27)
[2017-05-15] MEDS ORDERED: NS (IVPB) 0 ML ONE (01:17)
[2017-05-15] MEDS: DEXMEDETOMIDINE INJECTION 200 MCG in NS (IVPB) 50 ML IV SCH ×3 (01:25→18:12)
[2017-05-15] MEDS: RT-ALBUTEROL/IPRATROPIUM 3 ML (DUONEB) VIAL INH SCH ×6 (01:48→21:58)
--- NOTE | 2017-05-15 04:15 | Pulmonary Progress Note ---
Subjective Subjective/Events-last exam No complications noted. Pt tolerated chair x 2 hrs yesterday. Exam Exam Vital Signs Date Time Temp Pulse Resp B/P (MAP) Pulse Ox O2 Delivery O2 Flow Rate FiO2 05/15/17 01:48 70 24 100 30 05/15/17 01:00 70 05/15/17 01:00 70 24 143/47 100 Mechanical Ventilator 30.00 05/15/17 00:40 78 19 100 30 05/15/17 00:00 98.9 93 18 168/48 100 Mechanical Ventilator 30.00 05/14/17 23:50 100 Mechanical Ventilator 30 05/14/17 23:00 71 29 188/49 100 Mechanical Ventilator 30.00 05/14/17 22:39 104 30 100 30 05/14/17 22:22 66 24 270/89 100 Mechanical Ventilator 30.00 05/14/17 22:00 68 26 100 30 05/14/17 21:00 86 18 193/61 100 Mechanical Ventilator 30.00 05/14/17 20:18 94 22 100 30 05/14/17 20:00 100 Mechanical Ventilator 30 05/14/17 20:00 88 18 189/61 100 Mechanical Ventilator 30.00 05/14/17 19:07 100 28 100 30 05/14/17 19:00 98.2 97 24 171/54 100 Mechanical Ventilator 30.00 05/14/17 19:00 102 05/14/17 18:00 87 23 175/94 100 Mechanical Ventilator 30.00 05/14/17 17:00 84 19 166/79 100 Mechanical Ventilator 30.00 05/14/17 16:33 86 21 100 30 05/14/17 16:00 87 14 163/77 100 Mechanical Ventilator 30.00 05/14/17 15:52 100 30 05/14/17 15:50 98.8 05/14/17 15:00 91 23 176/84 100 Mechanical Ventilator 30.00 05/14/17 14:35 96 25 100 30 05/14/17 14:00 82 22 181/72 100 Mechanical Ventilator 30.00 05/14/17 13:00 85 05/14/17 12:18 100 30 05/14/17 12:18 97.5 05/14/17 12:17 87 24 100 30 05/14/17 12:00 80 21 148/83 100 Mechanical Ventilator 30.00 05/14/17 11:00 68 20 141/84 100 Mechanical Ventilator 30.00 05/14/17 10:12 64 21 100 30 05/14/17 10:00 136/87 05/14/17 09:16 65 13 100 30 05/14/17 09:00 73 16 138/75 100 Mechanical Ventilator 30.00 05/14/17 08:00 97.7 05/14/17 08:00 100 30 05/14/17 08:00 67 15 124/64 100 Mechanical Ventilator 30.00 05/14/17 07:00 68 13 115/65 100 Mechanical Ventilator 30.00 05/14/17 07:00 74 05/14/17 06:34 66 13 100 30 05/14/17 06:00 64 12 110/72 100 Mechanical Ventilator 30.00 05/14/17 05:00 64 12 115/64 100 Mechanical Ventilator 30.00 05/14/17 04:24 67 12 100 30 I & O 05/15/17 07:00 Intake Total 2376.25 ml Output Total 2065 ml Balance 311.25 ml General Appearance: No Apparent Distress (pt is awake/alert and comfortable on vent), Chronically ill Neck: Full Range of Motion, Normal Inspection Respiratory: No Accessory Muscle Use, No Respiratory Distress, Decreased Breath Sounds, Other (scattered rhonchi without wheezing. Breath sounds are equal bilaterally) Cardiovascular: Regular Rate, Rhythm, No Edema, No Gallop, No JVD, Normal Peripheral Pulses, Other (1 to 2/6 systolic ejection murmur heard at the left lower sternal border.) Capillary Refill: Less Than 3 Seconds Gastrointestinal: soft, tenderness Extremity: Other Neurologic/Psychiatric: Alert Skin: Normal Color, Warm/Dry, Pallor Lymphatic: No Adenopathy Results Lab Laboratory Tests 05/13/17 04:45 05/13/17 07:26 05/14/17 04:35 Assessment/Plan Assessment/Plan Acute respiratory failure since postop secondary to aspiration of bowel contents -- sputum is growing MDR Acinetobacter - Continue weaning trials. During the day will place vent on SIMV/PS 10/500/5 /10 - Titrate RR by 2b/min every 1-2hrs as tolerated. At night back to AC 10/500 /5. titrate Fi02 for Sp02 of 92-95%. - continue Precedex at night. D/C during daytime per family request - porsche tolbert Flagyl -s/p tracheostomy - Acute respiratory failure is now becoming chronic respiratory failure -up to chair daily as tolerated - Pt is now tolerated chair better Pulmonary edema secondary to IVF -Pt is getting Lasix 40mg daily Atelectasis -monitor -increase activity as tolerated Abdominal abscess s/p drain placement x 3 -Pain control with morphine 1-2 mg IV Q2 PRN -oxycodone Anemia - monitor - ASPIRATION PNA with MDR Acinetobacter -S/P bronchoscopy mucous plugging -- resolved -D/C Mucomyst Hypernatremia/hyperchloremia - Secondary to saline - -IVF D5W and 20 KCL to KVO fee water NG flush to Q8 100cc Malnutrition/debility/weakness -TF with pulmicare -- tolerating well - Dobbhoff placement today -Pt is getting IV Synthroid -repeat TSH HX of SVT/AF -LABS AND CXR reviewed 233 Clinical Quality Measures DVT/VTE Risk/Contraindication: Risk Factor Score Per Nursin RFS Level Per Nursing on Admit: 4+=Very High CHRISS ARTIS DO May 15, 2017 04:15
[2017-05-15 04:27] LABS: BASOPHILS % (AUTO) 0 % (0-10); EOSINOPHILS % (AUTO) 0 % (0-10); LYMPHOCYTES # (AUTO) 0.6 X 10^3 (1.0-4.0); LYMPHOCYTES % (AUTO) 5 % (12-44); MEAN CORPUSCULAR HEMOGLOBIN 29 PG (25-34); MEAN CORPUSCULAR HGB CONC 32 G/DL (32-36); MEAN CORPUSCULAR VOLUME 89 FL (80-99); MONOCYTES # (AUTO) 0.7 X 10^3 (0.0-1.0); MONOCYTES % (AUTO) 5 % (0-12); NEUTROPHILS # (AUTO) 10.8 X 10^3 (1.8-7.8); NEUTROPHILS % (AUTO) 89 % (42-75); PLATELET COUNT 364 10^3/uL (130-400); RED BLOOD COUNT 3.69 10^6/uL (4.35-5.85); RED CELL DISTRIBUTION WIDTH 15.2 % (10.0-14.5); WHITE BLOOD COUNT 12.1 10^3/uL (4.3-11.0)
[2017-05-15 04:27] LABS: ABG BASE EXCESS 1.9 MMOL/L (-2.5-2.5); ABG HCO3 26 MMOL/L (23-27); ABG OXYGEN SATURATION 98 % (94-100); ABG PCO2 42 MMHG (35-45); ABG PH 7.41 (7.37-7.43); ABG PO2 87 MMHG (79-93); ABG TCO2 27.4 MMOL/L (21.0-31.0)
[2017-05-15 04:28] LABS: ALLENS TEST YES-POS; PATIENT TEMP 98.5
[2017-05-15] MEDS: oxyCODONE 5 MG/5 ML ORAL SOLN (roxiCODONE) 5 ML UDC PO PRN ×5 (04:32→21:16)
[2017-05-15 04:50] LABS: ANION GAP 10 MMOL/L (5-14); BLOOD UREA NITROGEN 45 MG/DL (7-18); BUN/CREATININE RATIO 57 (0-20); CALCIUM 8.2 MG/DL (8.5-10.1); CARBON DIOXIDE 24 MMOL/L (21-32); CHLORIDE 107 MMOL/L (98-107); CREATININE SERUM 0.79 MG/DL (0.60-1.30); GFR ESTIMATED > 60; GLUCOSE 144 MG/DL (70-105); HEMOLYSIS 8 (0-29); ICTERUS 0.4 (0-1.9); LIPEMIA 1 (0-49); MAGNESIUM 1.9 MG/DL (1.8-2.4); PHOSPHORUS 4.1 MG/DL (2.3-4.7); POTASSIUM 4.5 MMOL/L (3.6-5.0); SODIUM 141 MMOL/L (135-145)
[2017-05-15] MEDS: KCL 20 MEQ TAB (K-DUR) PO SCH (04:53)
[2017-05-15] MEDS: POTASSIUM CL 10MEQ/50ML IVPB 50 ML IV SCH (05:01)
[2017-05-15] MEDS: MAGNESIUM 1 GM/100 ML IVPB 100 ML IV SCH (05:02)
[2017-05-15] MEDS ORDERED: NS (IVPB) 50 ML ONE (05:42)
[2017-05-15] MEDS: METOCLOPRAMIDE INJ 10 MG/2 ML (REGLAN) IVP SCH ×2 (05:53→12:21)
[2017-05-15] MEDS: PIPERACILLIN SODIUM/TAZOBACTAM 4.5 GM in NS (IVPB) 100 ML IV SCH ×3 (06:13→23:25)
[2017-05-15] MEDS: IBUPROFEN SUSP 100MG/5ML (MOTRIN) UDC PO PRN ×2 (07:47→17:05)
[2017-05-15] MEDS: PANTOPRAZOLE 40 MG/10 ML (PROTONIX) VIAL IVP SCH (08:01)
[2017-05-15] MEDS: LEVOTHYROXINE 100 MCG INJ (SYNTHROID) VIAL IV SCH (08:01)
[2017-05-15] MEDS: FLUCONAZOLE 100 MG/50 ML 50 ML IV SCH (08:02)
[2017-05-15] MEDS: LIDOCAINE (LIDODERM) 5% PATCH TOP SCH (08:02)
[2017-05-15] MEDS: meTOprolol TARTRATE 25 MG (LOPRESSOR) TABLET PO SCH ×2 (08:02→21:16)
[2017-05-15] MEDS: FUROSEMIDE 40 MG/4 ML INJ (LASIX) IVP SCH (08:03)
[2017-05-15] MEDS: PROPAFENONE 225 MG TAB PO SCH ×3 (08:03→21:16)
[2017-05-15] MEDS: CATHETER FLUSH 10 ML SYR IV SCH ×2 (08:03→21:17)
[2017-05-15] MEDS: GENTAMICIN IV SCH (08:10)
[2017-05-15] MEDS: NS IV SCH (08:10)
--- NOTE | 2017-05-15 08:12 | Diagnostic Imaging Report ---
INDICATION: Respiratory failure. TECHNIQUE: Single-view chest 4:09 AM. CORRELATION STUDY: 05/14/2017. FINDINGS: Enteral feeding tube passes below the left hemidiaphragm and edge of the film. Two pigtail catheters of the left upper quadrant remain in place with previously noted catheter over the right upper quadrant appearing to have been removed. Left-sided central line tip somewhat obscured but likely over the expected location of the SVC but has been retracted. Right-sided central line also obscured but appears generally stable. Heart size remains enlarged. Vasculature is less congested. Bilateral perihilar and basilar areas of atelectasis or infiltrate persisting right greater than left but overall slightly improved. Likely bilateral pleural effusions. IMPRESSION: 1. Multiple support lines and tubes as above with interval removal of an apparent drainage catheter in the right upper quadrant. 2. Cardiac enlargement and vascular congestion but overall appear improved from prior study. There is also improvement in aeration of the lung pinedo likely owing to decreased edema, infiltrate, and/or atelectasis along with effusions. Dictated by: Dictated on workstation # [id number]
[2017-05-15] MEDS: morphine INJ 4 MG/ML 1 ML (VIAL/SYRINGE) IVP PRN ×2 (08:49→14:50)
--- NOTE | 2017-05-15 11:02 | Progress Note-Hospitalist ---
Progress Note HPI/CC on Admission CC: Management of critical illness with acute peritonitis due to bowel perforation with aspiration of bowel contents during intubation HPI: This is a 61-year-old white female clinic patient of Dr. 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 Apparently she was wanting to go to [place] and used to suppository like she usually does because she is struggle with constipation since cardiac meds have been initiated several years ago but at noon time she started having a lot of pain to the extent that required emergency room evaluation. CT scan was obtained found to have bowel perforation with peritonitis and during intubation for surgery she aspirated bowel contents so she now has a diverting colostomy but the pictures during surgery appeared to have a multitude of impacted bowel contents within the abdominal cavity. I did speak with Dr. Horvath her primary care provider and employer and it appears that she is not up-to-date on her colonoscopy and has not had one before and she has had significant constipation issues for the past several years so I hypothesized that impacted stool has been an ongoing problem for her probably stretching the tissue over a long period time and finally rupturing causing this critical illness. She is requiring high doses of Levophed and closely monitoring due to severe sepsis and multisystem organ failure. She has received aggressive IV fluids per protocol and currently monitor closely due to history of arrhythmia maintained on Rythmol as an outpatient. She sees Dr. Ku cardiology at [place] after she failed undergoing ablation up in [place] years ago. I have consulted cardiology and buffer inflated pad and eICU to facilitate management of this critically ill patient. 05/09/17 patient became quite anxious and hypertensive during pressure support trial apparently rather abruptly occurred and nursing staff. O2 saturations dropped to the 70s with altered mental status. There have been no change in medications associated with this. She was taken off of pressure support and placed back on mechanical ventilation. She is ventilating easily time of my arrival eyes were open pupils were 5 mm symmetrical and reactive but the patient was not responsive. She was moving all extremities. 05/10/17 patient is back to baseline state of anxiety and back to baseline levels of CO2 retention. She is resting comfortably upon my arrival and appears to be in no distress although when asked she always volunteers that she is having significant pain. Physical exam findings are unchanged from yesterday chest x-ray and labs are stableexcept for improved ABG levels compared to yesterday's distress levels. Progress Notes/Assess & Plan Date Seen 05/15/17 Time Seen by Provider: 09:00 Admission Dx/Process Assessment: Acute peritonitis from colonic perforation with impacted stool with history of severe chronic constipation status post diverting colostomy POD # 1 Aspiration of bowel contents during intubation for surgery with ventilator- dependent respiratory failure currently History of SVT/AF status post attempted ablation an unsuccessful maintained on Rythmol by Dr. Ku cardiology Shanta History of hypertension Hypothyroidism Leukopenia due to sepsis Hypokalemia Diagonsis/Assessment & Plan Chart Review: WBC 12 .1 Hgb 10.5 ABG 7.41/42/87 CMP normal On Zosyn and Gent Patient Interview: Pt states that she is cold and would like a blanket. Pt states that she is still experiencing pain Labs were discussed with the pt and everything looks good Physical exam stable. No fever, vital signs stable, much improved, O x 3 Family at the bedside RRR, Coarse breath sounds now resolved Colostomy in place tracheostomy in place Drains in place Assessment: Acute peritonitis from colonic perforation with impacted stool with long history of severe chronic constipation status post diverting colostomy with septic shock requiring pressors and aggressive IVF management now improved and more stable but but unable to extubate as tentatively planned but will begin the wean process after trach placed likely will need [facility] or long-term facility Aspiration of bowel contents during intubation for surgery with ventilator- dependent respiratory failure currently maintained on Zosyn and s/p Diflucan History of SVT status post attempted ablation and unsuccessful maintained on Rythmol by Dr. Ku cardiology Shanta consulted Dr Nettles and his recs are appreciated and had an episode of AF last week resolved with suctioning History of hypertension Hypothyroidism Leukopenia due to sepsis now leukocytosis Hypokalemia replacing Metabolic acidosis due to sepsis Thrombocytopenia due to sepsis improved Anemia likely affiliated due to phlebotomy s/p 2 units of blood today Plan: Monitor labs Maintain colostomy SCDs Stable but guarded Morphine dosage as needed Needs [facility], but family does not want her there so will need to evaluate alternative placement Scribed by Teresita Hathaway under the direct supervision of Dr. Rome. DAVY ROME DO May 15, 2017 11:02
--- NOTE | 2017-05-15 11:07 | Physical Therapy Daily Note ---
PT Daily Note-Current Subjective Patient agrees to PT. Pain Numeric Pain Scale: 5-Moderate Pain Location: Soft Tissue Location Body Site: Generalized Pain Description: Ache Appearance 3+ edema total body Mental Status Patient Orientation: Normal For Age Attachments: Central Line, Colostomy/Ileostomy, Drains, Ventilator, Reynolds Catheter, IV wound vac to abdomen Transfers Functional [place] Measure 0=Not Assessed/NA 4=Minimal Assistance 1=Total Assistance 5=Supervision or Setup 2=Maximal Assistance 6=Modified [place] 3=Moderate Assistance 7=Complete IndependenceIRFPAI Quality Coding Scale 6 Independent with activity with or without an assistive device 5 Patient requires set up or clean up by helper. Patient completes activity by themselves 4 Supervision or touching assist (CGA). [place] provide cues , steadying assist 3 The helper provides less than half the effort to complete the activity 2 The helper provides more than half the effort to complete the activity 1 Dependent. The helper does all the effort to complete an activity 7 Patient refused to complete or attempt activity 9 The patient did not perform the activity before the current illness or injury 88 Not attempted due to Medical conditions or safety concerns Transfers (B, C, W/C) (FIM): 1 Scootin Rollin Supine to/from Sit: 1 Sit to/from Stand: 1 Bed to/from Chair: 1 Dawna lift transfer with assist of 3 with all bed mobility and transfers Exercises Supine Ex: Ankle pumps, Quad Set Supine Reps: 5 (3 sets) Seated Therapy Exercises: Ankle pumps, Long arc quads Seated Reps: 5 (3 sets) Assessment Patient is beginning to initiate bilateral knee extension and ankle dorsiflexion. Continues to require assistance to attain full ROM bilateral LE' s. Patient is up in recliner to increase core musculature and to address cardiopulmonary function. Nursing present and assisted entire treatment. PT Fdc Goals Fdc Goals PT Sales Market Leader Goals Time Frame: May 13, 2017 Transfers (B,C,W/C) (FIM): 4 Gait (FIM): 2 Gait distance (FIM): 1=up to 49 ft Gait Assistive Device: FWW PT Plan Treatment/Plan Treatment Plan: Continue Plan of Care Treatment Plan: Bed Mobility, Education, Functional Activity Carlos A, Functional Strength, Gait, Safety, Therapeutic Exercise, Transfers Treatment Duration: May 13, 2017 Visits Per Week: 5-11 Time/GCodes Time In: 950 Time Out: 1014 Total Billed Treatment Time: 23 Total Billed Treatment 1 visit FA 13 min EX 10 min JOSE CARUSO PT May 15, 2017 11:07
--- NOTE | 2017-05-15 11:18 | Cardiology Progress Note ---
Cardiology SOAP Progress Note Subjective: doing well. took a bath today. Objective: I&O/Vital Signs Vital Sign - Last 12Hours 05/14/17 05/15/17 05/15/17 05/15/17 23:50 00:00 00:40 01:00 Temp 98.9 Pulse 93 78 70 Resp 18 19 24 B/P (MAP) 168/48 143/47 Pulse Ox 100 100 100 100 O2 Delivery Mechanical Ventilator Mechanical Ventilator Mechanical Ventilator O2 Flow Rate 30.00 30.00 FiO2 30 30 05/15/17 05/15/17 05/15/17 05/15/17 01:00 01:48 04:00 04:00 Temp 98.5 Pulse 70 70 86 Resp 24 17 B/P (MAP) 151/55 Pulse Ox 100 100 100 O2 Delivery Mechanical Ventilator Mechanical Ventilator O2 Flow Rate 30.00 FiO2 30 30 05/15/17 05/15/17 05/15/17 05/15/17 04:19 06:05 07:00 07:00 Pulse 75 80 77 83 Resp 20 17 15 B/P (MAP) 174/51 Pulse Ox 100 100 100 O2 Delivery Mechanical Ventilator O2 Flow Rate 30.00 FiO2 30 30 05/15/17 05/15/17 05/15/17 05/15/17 07:56 08:00 08:00 09:00 Temp 97.7 Pulse 83 84 70 Resp 21 21 15 B/P (MAP) 167/53 141/52 Pulse Ox 100 100 100 100 O2 Delivery Mechanical Ventilator Mechanical Ventilator Mechanical Ventilator O2 Flow Rate 30.00 30.00 FiO2 30 30 05/15/17 10:54 Pulse 80 Resp 17 Pulse Ox 100 FiO2 30 Intake and Output 05/15/17 00:00 Intake Total 1331.25 ml Output Total 1665 ml Balance -333.75 ml Weight (Pounds): 201 Weight (Ounces): 0.7 Weight (Calculated Kilograms): [id number] Constitutional: other (status post-trach) Respiratory: No accessory muscle use, No respiratory distress, No chest tender , No chest expansion is symmetric, No chest is bilaterally symmetric, No lungs clear to percussion, No lungs clear to auscultation, No crackles, No rhonchi, No rales, No stridor, No wheezing, No pleural rub, other (Fair bilateral air entry; coarse airway sounds but no rhonchi) Cardiovascular: regular rate-rhythm, tachycardia, S1 and S2, other (Faint WILL at card base) Gastrointestional: other (Recent abdominal surgery, colostomy in place) Extremities: pedal edema, No clubbing, No cyanosis Neurologic/Psychiatric: no motor/sensory deficits, alert Skin: No rash on exposed areas, ulcerations on exposed areas Results/Procedures: Labs Laboratory Tests 05/14/17 18:18: Glucometer 138H 05/15/17 04:10: White Blood Count 12.1H, Red Blood Count 3.69L, Hemoglobin 10.5L, Hematocrit 33L , Mean Corpuscular Volume 89, Mean Corpuscular Hemoglobin 29, Mean Corpuscular Hemoglobin Concent 32, Red Cell Distribution Width 15.2H, Platelet Count 364, Mean Platelet Volume 10.0, Neutrophils (%) (Auto) 89H, Lymphocytes (%) (Auto) 5L , Monocytes (%) (Auto) 5, Eosinophils (%) (Auto) 0, Basophils (%) (Auto) 0, Neutrophils # (Auto) 10.8H, Lymphocytes # (Auto) 0.6L, Monocytes # (Auto) 0.7, Eosinophils # (Auto) 0.0, Basophils # (Auto) 0.0, Sodium Level 141, Potassium Level 4.5, Chloride Level 107, Carbon Dioxide Level 24, Anion Gap 10, Blood Urea Nitrogen 45H, Creatinine 0.79, Estimat Glomerular Filtration Rate > 60, BUN /Creatinine Ratio 57H, Glucose Level 144H, Calcium Level 8.2L, Phosphorus Level 4.1, Magnesium Level 1.9 05/15/17 04:20: Blood Gas Puncture Site RIGHT RADIAL, Blood Gas Patient Temperature 98.5, Arterial Blood pH 7.41, Arterial Blood Partial Pressure CO2 42, Arterial Blood Partial Pressure O2 87, Arterial Blood HCO3 26, Arterial Blood Total CO2 27.4, Arterial Blood Oxygen Saturation 98, Arterial Blood Base Excess 1.9, Brannon Test YES-POS, Blood Gas Ventilator Setting YES, Blood Gas Inspired Oxygen 30% Microbiology 04/30/17 Blood Culture - Final, Complete No growth 05/04/17 Gram Stain - Final, Complete 05/04/17 Sputum Culture - Final, Complete Acinetobacter Baumanii See Comments Presumptive Ivy Albicans 05/12/17 Gram Stain - Final, Resulted 05/12/17 Anaerobic Culture - Preliminary, Resulted No growth 05/12/17 Wound Culture - Preliminary, Resulted No growth A/P: Assessment/Dx: Large bowel perforation, fecal peritonitis, severe septic shock. Nonsustained VT, PAF, Acute diastolic heart failure - resolved Plan: Large bowel perforation status post emergent abdominal surgery by Dr. gN earlier in the hospital course. Peritonitis/severe septic shock: On broad-spectrum antibiotics. Significant improvement of sepsis. Status post trach, on SIMV mode on Ventilator (Critical Care myopathy). Nonsustained VT: infrequent PVCs. continue metoprolol. Continue aggressive repletion of electrolytes. on propafenone. PAF: currently in sinus rhythm. acute diastolic heart failure - resolved. mild bilateral edema noted. lasix PRN. Dr Whitney to follow up over the weekend. Thank you for your consultation. Please call me if you have any questions. Jung Foote MD, FACP, FACC, FSCAI, FHRS, CCDS Interventional Cardiology Cardiac Electrophysiology Vascular Medicine and Endovascular Interventions Darshana FOOTE MD May 15, 2017 11:18 am
--- NOTE | 2017-05-15 12:51 | Progress Note-Standard ---
Standard Progress Note Progress Notes/Assess & Plan Date Seen by Provider: May 15, 2017 Time Seen by Provider: 11:52 Progress/Assessment & Plan 04/26/17:septic with severe leukopenia. Very poor urine output. On dual vasopressors. Sinus tachycardia. Outcome poor with expected mortality. Central venous pressure around 12. We'll continue to provide fluid resuscitation and maintain vasopressors for now. 04/27/17:continues to require vasopressor support. Urine output reasonable. Creatinine slightly elevated. Ventilation and oxygenation stable. Will place a wound VAC tomorrow. Continue supportive abdomen. Enteral nutrition in 24- 48 hours. DVT prophylaxis with low molecular weight heparin, renally adjusted dose 04/28/17:off the vasopressors. Renal function reasonable.NG output more than 1 L and therefore tube feeding will be delayed.electrolytes satisfactory.we'll continue current management. 04/29/17:Improving. Would facilitate diuresis before embarking on extubation. Intra-abdominal abscesses to be looked for by next week. L femoral arterial line satisfactory with no distal ischemia. Nutritional support in 24-48 hours. 04/30/17:slight change in her condition with decreased urine output and leukocytosis. Abdominal abscess in evolution very likely the culprit. More opacification of the right lung. We will try enteral feeding. Continue antibiotics 05/01/17 Diuresis in progress. Pressure mattress appropriate to prevent skin breakdown. Fascia intact. Tolerating tube feeds. Vent weaning over terrie next 24- 48 hours. HIT antibodies negative 05/04/17: Reintubated. Anasarca improved. Fascia intact. Intra-abdominal abscesses to be expected. CT scan in 48 hours. Tracheostomy discussed with the family and planned for this week 05/05/17:CONTINUES TO IMPROVE. pOOR MUSCLE STRENGTH. tRACHEOSTOMY IN [address] SCAN TOMORROW MORNING. 05/06/17:Intra-abdominal and pelvic abscesses drained percutaneously. Tracheostomy tomorrow. 05/08/17: Anxious and tearful, expected. Jejunal feeding in progress. Possible pseudomonas in cultures. Vent weaning initiated 05/11/17: Fluctuating temperature, possibly due to additional intra-abdominal abscesses. CT/drainage planned for tomorrow. Anasarca. Poor muscle strength 05/12/17: No major changes in her condition. Repeat CT scan ending. Vent weaning attempts in progress. Poor muscle strength. 05/13/17:improvements with weaning attempts. Patient is very upset about not being able to get the required pain medications due tochanges and orders laced by Dr. Causey. Hemoglobin decreased to 7.5 and transfusion would be in order. Output from the radius drains very minimal and would therefore be removed soon. 05/14/17:continues to improve. Very minimal output from the initial set of drains placed a week ago. These will be removed soon.more awake. Physical therapy in progress. Weaning attempts to proceed 05/15/17:continues to improve. One more drain will be removed today. Physical and occupational therapy in progress. Abdominal wound granulating. Final Diagnosis fecal peritonitis. Ventilatory failure MACY TALAVERA MD May 15, 2017 12:51 pm
[2017-05-15] MEDS: ENOXAPARIN 40 MG/0.4 ML (LOVENOX) SYR SC SCH (14:00)
--- NOTE | 2017-05-15 16:19 | Occupational Ther Daily Note ---
OT Current Status-Daily Note Subjective Pt seen in room, up in recliner, agreeable to OT. Pt indicated she felt tired but otherwise OK Appearance Alert, cooperative Mental Status/Objective Functional Mower Measure 0=Not Assessed/NA 4=Minimal Assistance 1=Total Assistance 5=Supervision or Setup 2=Maximal Assistance 6=Modified Mower 3=Moderate Assistance 7=Complete Mower Other Treatment Edema in patient's L hand almost gone. Pt has been wearing Isotoner glove on L and wrist brace on R (because IV is in wrist). Active assistive ROM to bilat hands, with skilled facilitation techniques to increase functional use of hands. Pt education on how hand muscles work, on facilitation, on progress in using hands. Daughter education on gentle retrograde massage to decrease edema in R hand. Pt is able to flex fingers to within about an inch of palm, with assistance but uses tenodesis action to substitute for long finger flexors and extensors. Pt pleased with progress. Pt left up in recliner, daughter present, all needs met. Education OT Patient Education: Progress toward Goal/Update tx plan, Purpose of tx/ functional activities Teaching Recipient: Patient Teaching Methods: Discussion Response to Teaching: Verbalize Understanding OT Short Term Goals Short Term Goals 1=Demonstrate adherence to instructed precautions during ADL tasks. 2=Patient will verbalize/demonstrate understanding of assistive devices/ modifications for ADL. 3=Patient will improve strength/tolerance for activity to enable patient to perform ADL's. OT Retirement Goals Custom Shoemaker Goals Time Frame: May 18, 2017 - Decrease edema to allow functional use bilat UEs. - Increase functional use UEs - Increase participation in basic self care as pt status changes Additional Goals: 3-ImproveStrength/Carlos A 1=Demonstrate adherence to instructed precautions during ADL tasks. 2=Patient will verbalize/demonstrate understanding of assistive devices/ modifications for ADL. 3=Patient will improve strength/tolerance for activity to enable patient to perform ADL's. OT Education/Plan Problem List/Assessment Pt would benefit from skilled OT to help increase functional use of bilat UEs and independence in basic self care to decrease caregiver burden and assist with discharge planning Discharge Recommendations Plan/Recommendations: Continue POC Treatment Plan/Plan of Care Patient would benefit from OT for education, treatment and training to promote independence in ADL's, mobility, safety and/or upper extremity function for ADL' s. Plan of Care: ADL Retraining (when appropriate), Caregiver Training, Functional Mobility, UE Funct Exercise/Act, UE Neuromus Re-Ed/Coord, W/C Management Training Treatment Duration: May 18, 2017 Visits Per Week: 5 Agreement: No (pt unable to participate in decision making. No family present) Rehab Potential: Guarded Time/GCodes Start Time: 15:05 Stop Time: 15:25 Total Time Billed (hr/min): 20 Billed Treatment Time visit, 20 minutes neuromotor WENDY WATKINS OT May 15, 2017 16:19
[2017-05-15] MEDS ORDERED: TROUGH ORDER-PHARMACY XX NR (19:00)
[2017-05-15] MEDS: LIDOCAINE PATCH REMOVAL TP SCH (21:16)
[2017-05-16] VITALS (32 sets, daily range): BP systolic 104–174; BP diastolic 52–87
[2017-05-16] MEDS: D5W IV SCH (01:03)
[2017-05-16] MEDS: POTASSIUM CHLORIDE IV SCH (01:03)
[2017-05-16] MEDS: oxyCODONE 5 MG/5 ML ORAL SOLN (roxiCODONE) 5 ML UDC PO PRN ×5 (01:04→20:09)
[2017-05-16] MEDS: IBUPROFEN SUSP 100MG/5ML (MOTRIN) UDC PO PRN ×2 (01:05→20:09)
[2017-05-16] MEDS: RT-ALBUTEROL/IPRATROPIUM 3 ML (DUONEB) VIAL INH SCH ×6 (01:07→22:10)
[2017-05-16] MEDS: morphine INJ 4 MG/ML 1 ML (VIAL/SYRINGE) IVP PRN ×2 (01:11→19:21)
[2017-05-16] MEDS: DEXMEDETOMIDINE INJECTION 200 MCG in NS (IVPB) 50 ML IV SCH ×3 (02:13→22:56)
[2017-05-16] MEDS: PIPERACILLIN SODIUM/TAZOBACTAM 4.5 GM in NS (IVPB) 100 ML IV SCH ×3 (06:44→22:56)
[2017-05-16] MEDS: LEVOTHYROXINE 100 MCG INJ (SYNTHROID) VIAL IV SCH (08:36)
[2017-05-16] MEDS: meTOprolol TARTRATE 25 MG (LOPRESSOR) TABLET PO SCH ×2 (08:36→20:08)
[2017-05-16] MEDS: PANTOPRAZOLE 40 MG/10 ML (PROTONIX) VIAL IVP SCH (08:36)
[2017-05-16] MEDS: FUROSEMIDE 40 MG/4 ML INJ (LASIX) IVP SCH (08:36)
[2017-05-16] MEDS: LIDOCAINE (LIDODERM) 5% PATCH TOP SCH (08:36)
[2017-05-16] MEDS: FLUCONAZOLE 100 MG/50 ML 50 ML IV SCH (08:36)
[2017-05-16] MEDS: PROPAFENONE 225 MG TAB PO SCH ×3 (08:37→20:40)
[2017-05-16] MEDS: CATHETER FLUSH 10 ML SYR IV SCH ×2 (08:37→20:40)
[2017-05-16] MEDS: DAKIN'S 1/4 STRENGTH (0.125%) 473 ML BTL TOP SCH (08:37)
--- NOTE | 2017-05-16 09:53 | Occ Therapy Progress Note ---
Therapy Progress Note 935 Attempted to see pt but family conference with physician and nursing going on. WENDY WATKINS OT May 16, 2017 09:53
--- NOTE | 2017-05-16 10:24 | Progress Note-Standard ---
Standard Progress Note Progress Notes/Assess & Plan Date Seen by Provider: May 16, 2017 Time Seen by Provider: 09:32 Progress/Assessment & Plan 04/26/17:septic with severe leukopenia. Very poor urine output. On dual vasopressors. Sinus tachycardia. Outcome poor with expected mortality. Central venous pressure around 12. We'll continue to provide fluid resuscitation and maintain vasopressors for now. 04/27/17:continues to require vasopressor support. Urine output reasonable. Creatinine slightly elevated. Ventilation and oxygenation stable. Will place a wound VAC tomorrow. Continue supportive abdomen. Enteral nutrition in 24- 48 hours. DVT prophylaxis with low molecular weight heparin, renally adjusted dose 04/28/17:off the vasopressors. Renal function reasonable.NG output more than 1 L and therefore tube feeding will be delayed.electrolytes satisfactory.we'll continue current management. 04/29/17:Improving. Would facilitate diuresis before embarking on extubation. Intra-abdominal abscesses to be looked for by next week. L femoral arterial line satisfactory with no distal ischemia. Nutritional support in 24-48 hours. 04/30/17:slight change in her condition with decreased urine output and leukocytosis. Abdominal abscess in evolution very likely the culprit. More opacification of the right lung. We will try enteral feeding. Continue antibiotics 05/01/17 Diuresis in progress. Pressure mattress appropriate to prevent skin breakdown. Fascia intact. Tolerating tube feeds. Vent weaning over terrie next 24- 48 hours. HIT antibodies negative 05/04/17: Reintubated. Anasarca improved. Fascia intact. Intra-abdominal abscesses to be expected. CT scan in 48 hours. Tracheostomy discussed with the family and planned for this week 05/05/17:CONTINUES TO IMPROVE. pOOR MUSCLE STRENGTH. tRACHEOSTOMY IN [address] SCAN TOMORROW MORNING. 05/06/17:Intra-abdominal and pelvic abscesses drained percutaneously. Tracheostomy tomorrow. 05/08/17: Anxious and tearful, expected. Jejunal feeding in progress. Possible pseudomonas in cultures. Vent weaning initiated 05/11/17: Fluctuating temperature, possibly due to additional intra-abdominal abscesses. CT/drainage planned for tomorrow. Anasarca. Poor muscle strength 05/12/17: No major changes in her condition. Repeat CT scan ending. Vent weaning attempts in progress. Poor muscle strength. 05/13/17:improvements with weaning attempts. Patient is very upset about not being able to get the required pain medications due tochanges and orders laced by Dr. Causey. Hemoglobin decreased to 7.5 and transfusion would be in order. Output from the radius drains very minimal and would therefore be removed soon. 05/14/17:continues to improve. Very minimal output from the initial set of drains placed a week ago. These will be removed soon.more awake. Physical therapy in progress. Weaning attempts to proceed 05/15/17:continues to improve. One more drain will be removed today. Physical and occupational therapy in progress. Abdominal wound granulating. 05/16/17:progressive improvement. Anxious to resume eating. Speech therapist requested to evaluate the risk of aspiration. Very minimal output from the drains, that would be removed in 24 hours. Long-term rehabilitation discussions initiated Final Diagnosis fecal peritonitis. MACY TALAVERA MD May 16, 2017 10:24 am
--- NOTE | 2017-05-16 11:10 | Progress Note-Hospitalist ---
Progress Note HPI/CC on Admission CC: Management of critical illness with acute peritonitis due to bowel perforation with aspiration of bowel contents during intubation HPI: This is a 61-year-old white female clinic patient of Dr. 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 Apparently she was wanting to go to [place] and used to suppository like she usually does because she is struggle with constipation since cardiac meds have been initiated several years ago but at noon time she started having a lot of pain to the extent that required emergency room evaluation. CT scan was obtained found to have bowel perforation with peritonitis and during intubation for surgery she aspirated bowel contents so she now has a diverting colostomy but the pictures during surgery appeared to have a multitude of impacted bowel contents within the abdominal cavity. I did speak with Dr. Horvath her primary care provider and employer and it appears that she is not up-to-date on her colonoscopy and has not had one before and she has had significant constipation issues for the past several years so I hypothesized that impacted stool has been an ongoing problem for her probably stretching the tissue over a long period time and finally rupturing causing this critical illness. She is requiring high doses of Levophed and closely monitoring due to severe sepsis and multisystem organ failure. She has received aggressive IV fluids per protocol and currently monitor closely due to history of arrhythmia maintained on Rythmol as an outpatient. She sees Dr. Ku cardiology at [place] after she failed undergoing ablation up in [place] years ago. I have consulted cardiology and cut and print machine operator and eICU to facilitate management of this critically ill patient. 05/09/17 patient became quite anxious and hypertensive during pressure support trial apparently rather abruptly occurred and nursing staff. O2 saturations dropped to the 70s with altered mental status. There have been no change in medications associated with this. She was taken off of pressure support and placed back on mechanical ventilation. She is ventilating easily time of my arrival eyes were open pupils were 5 mm symmetrical and reactive but the patient was not responsive. She was moving all extremities. 05/10/17 patient is back to baseline state of anxiety and back to baseline levels of CO2 retention. She is resting comfortably upon my arrival and appears to be in no distress although when asked she always volunteers that she is having significant pain. Physical exam findings are unchanged from yesterday chest x-ray and labs are stableexcept for improved ABG levels compared to yesterday's distress levels. Progress Notes/Assess & Plan Date Seen 05/16/17 Time Seen by Provider: 09:15 Admission Dx/Process Assessment: Acute peritonitis from colonic perforation with impacted stool with history of severe chronic constipation status post diverting colostomy POD # 1 Aspiration of bowel contents during intubation for surgery with ventilator- dependent respiratory failure currently History of SVT/AF status post attempted ablation an unsuccessful maintained on Rythmol by Dr. Ku cardiology [place] History of hypertension Hypothyroidism Leukopenia due to sepsis Hypokalemia Diagonsis/Assessment & Plan Patient up in chair and doing remarkably well Still has trach but then later is turned off and breathing on her own Working with her hands and slow progress but motivated Removed a few drains and art line Reports pain continues but improved Family at bedside No fever, vital signs stable, pleasant, much improved, up in chair Regular rate and rhythm, coarse breath sounds all pinedo No edema change from 2+ Assessment: Acute peritonitis from colonic perforation with impacted stool with long history of severe chronic constipation status post diverting colostomy with septic shock requiring pressors and aggressive IVF management now improved and more stable but but unable to extubate as tentatively planned but will begin the wean process after trach placed likely will need [place] or long-term facility Aspiration of bowel contents during intubation for surgery with ventilator- dependent respiratory failure currently maintained on Zosyn and s/p Diflucan History of SVT status post attempted ablation and unsuccessful maintained on Rythmol by Dr. Ku cardiology Shanta consulted Dr Nettles and his recs are appreciated and had an episode of AF last week resolved with suctioning History of hypertension Hypothyroidism Leukopenia due to sepsis now leukocytosis Hypokalemia replacing Metabolic acidosis due to sepsis Thrombocytopenia due to sepsis improved Anemia likely affiliated due to phlebotomy s/p 2 units of blood today Plan: Monitor labs Maintain colostomy SCDs Stable but guarded Morphine dosage as needed doing well DAVY ROME DO May 16, 2017 11:10
--- NOTE | 2017-05-16 12:21 | Physical Therapy Daily Note ---
PT Daily Note-Current Subjective Pt agreeable to up to chair with encouragement. Requested not to use the dawna lift due to "it didn't go well yesterday" per daughter report. Pt requested that son simply lift her to the chair; educated Pt and family that that is ill- advised due to risk of injury to Pt and family as well as complicated by multiple lines. With reassurance, Pt agreeable. Mental Status Patient Orientation: Person Attachments: Drains, PEG Tube, Ventilator, Reynolds Catheter, IV multiple lines Transfers Functional [place] Measure 0=Not Assessed/NA 4=Minimal Assistance 1=Total Assistance 5=Supervision or Setup 2=Maximal Assistance 6=Modified [place] 3=Moderate Assistance 7=Complete IndependenceIRFPAI Quality Coding Scale 6 Independent with activity with or without an assistive device 5 Patient requires set up or clean up by helper. Patient completes activity by themselves 4 Supervision or touching assist (CGA). [place] provide cues , steadying assist 3 The helper provides less than half the effort to complete the activity 2 The helper provides more than half the effort to complete the activity 1 Dependent. The helper does all the effort to complete an activity 7 Patient refused to complete or attempt activity 9 The patient did not perform the activity before the current illness or injury 88 Not attempted due to Medical conditions or safety concerns Transfers (B, C, W/C) (FIM): 1 Scootin Rollin Bed to/from Chair: 1 Dawna with A x 3 to manage lines appropriately. Treatments Pt up to chair via Dawna lift x 3 hours. Upon PT return Pt stated she was tired and ready to return to bed. In bed with all needs met, RN and RT present. Assessment Current Status: Good Progress Pt tolerated up to chair very well. Family in room working with UEs during unattended time up. PT Retirement Goals Application Integrator Goals PT Application Integrator Goals Time Frame: May 13, 2017 Transfers (B,C,W/C) (FIM): 4 Gait (FIM): 2 Gait distance (FIM): 1=up to 49 ft Gait Assistive Device: FWW PT Plan Problem List Problem List: Activity Tolerance, Functional Strength, Safety, Balance, Gait, Transfer, Bed Mobility, ROM Treatment/Plan Treatment Plan: Continue Plan of Care Treatment Plan: Bed Mobility, Education, Functional Activity Carlos A, Functional Strength, Gait, Safety, Therapeutic Exercise, Transfers Treatment Duration: May 13, 2017 Visits Per Week: 5-11 Pt/Family Agrees w/Plan: Yes Safety Risks/Education Patient Education: Transfer Techniques Teaching Recipient: Patient, Family Teaching Methods: Discussion Response to Teaching: Verbalize Understanding Fear of Dawna with this PT eased. Discharge Recommendations Barriers to Progress complex medical management. Time/GCodes Time In: 0902 Time Out: 1213 Total Billed Treatment Time: 41 Total Billed Treatment 1, FA x 3 [id number] (unattended for up in chair) [id number] G Codes Necessary: No JANET SÁNCHEZ DPLibertad May 16, 2017 12:21
--- NOTE | 2017-05-16 13:32 | Progress Note-Cardiology ---
Cardiology SOAP Progress Note Subjective: She is s/p trach and on mech vent, but able to communicate She does not report cp or palp or syncope or shortness of breath Objective: I&O/Vital Signs Vital Sign - Last 12Hours 05/16/17 05/16/17 05/16/17 05/16/17 01:32 02:06 03:06 04:00 Pulse 87 88 82 Resp 14 19 15 B/P (MAP) 133/63 130/64 104/52 Pulse Ox 100 100 100 100 O2 Delivery Mechanical Ventilator Mechanical Ventilator Mechanical Ventilator Mechanical Ventilator O2 Flow Rate 30.00 30.00 30.00 FiO2 30 05/16/17 05/16/17 05/16/17 05/16/17 04:11 04:15 05:08 06:01 Pulse 77 76 80 81 Resp 17 14 18 16 B/P (MAP) 117/56 130/63 137/63 Pulse Ox 100 100 100 100 O2 Delivery Mechanical Ventilator Mechanical Ventilator Mechanical Ventilator O2 Flow Rate 30.00 30.00 30.00 FiO2 30 05/16/17 05/16/17 05/16/17 05/16/17 06:27 07:00 07:01 08:00 Temp 98.0 Pulse 90 80 82 94 Resp 18 18 18 B/P (MAP) 149/69 149/69 Pulse Ox 100 100 100 O2 Delivery Mechanical Ventilator Mechanical Ventilator O2 Flow Rate 30.00 30.00 FiO2 30 05/16/17 05/16/17 05/16/17 05/16/17 09:00 09:20 10:00 10:39 Pulse 95 68 82 80 Resp 24 22 19 22 B/P (MAP) 157/81 159/72 Pulse Ox 100 100 100 100 O2 Delivery Mechanical Ventilator Mechanical Ventilator O2 Flow Rate 30.00 30.00 FiO2 30 30 05/16/17 05/16/17 05/16/17 05/16/17 11:00 12:00 12:12 12:27 Pulse 82 93 103 Resp 21 21 24 B/P (MAP) 160/70 173/84 Pulse Ox 100 100 100 O2 Delivery Mechanical Ventilator Mechanical Ventilator O2 Flow Rate 30.00 30.00 FiO2 30 30 Intake and Output 05/16/17 00:00 Intake Total 365 ml Output Total 1200 ml Balance -835 ml Weight (Pounds): 200 Weight (Ounces): 3.0 Weight (Calculated Kilograms): 90.318913 Constitutional: AAO x 3, well-developed, other (status post-trach; on mech vent ; able to communicate) Respiratory: other (Fair bilateral air entry; coarse airway sounds but no rhonchi) Cardiovascular: regular rate-rhythm, tachycardia, S1 and S2, other (Faint WILL at card base) Gastrointestional: other (Recent abdominal surgery, colostomy in place) Extremities: pedal edema, swelling (generalized), No clubbing, No cyanosis Neurologic/Psychiatric: no motor/sensory deficits, alert, grossly intact Skin: No rash on exposed areas Results/Procedures: Labs Laboratory Tests 05/15/17 18:08: Glucometer 185H 05/15/17 18:27: Random Gentamicin Level 8.6 Microbiology 04/30/17 Blood Culture - Final, Complete No growth 05/04/17 Gram Stain - Final, Complete 05/04/17 Sputum Culture - Final, Complete Acinetobacter Baumanii See Comments Presumptive Ivy Albicans 05/12/17 Gram Stain - Final, Resulted 05/12/17 Anaerobic Culture - Final, Resulted No growth 05/12/17 Wound Culture - Final, Resulted No growth Laboratory Tests 05/15/17 04:10 A/P: Assessment: Acute resp failure, multifactorial (see below); treated with tracheostomy and mech ventilation Perforated bowel and fecal peritonitis, treated with surgery in early April 2017 Septic shock, now resolved Multiple arrhythmias including NSVT and sustained episodes of PAF, stable on current regimen of metoprolol and propafenone Prerenal azotemia Generalized soft tissue swelling, likely due to hypoalbuminemia and 3rd spacing of fluid Plan: * I reviewed her records, communicated with her, examined her, and answered questions * She has had a complex hospital course and multiple medical issues that are summarized above * Monitor labs; correct electrolytes, as needed * Furosemide for gen edema, as needed and as tolerated CHUCK SCHULZ MD FACP FAC CCDS May 16, 2017 13:32
[2017-05-16] MEDS: ENOXAPARIN 40 MG/0.4 ML (LOVENOX) SYR SC SCH (15:40)
[2017-05-16] MEDS: LIDOCAINE PATCH REMOVAL TP SCH (20:40)
[2017-05-17] VITALS (34 sets, daily range): BP systolic 121–185; BP diastolic 55–103
[2017-05-17] MEDS: RT-ALBUTEROL/IPRATROPIUM 3 ML (DUONEB) VIAL INH SCH ×6 (02:12→21:18)
[2017-05-17] MEDS: DEXMEDETOMIDINE INJECTION 200 MCG in NS (IVPB) 50 ML IV SCH ×2 (03:44→22:16)
[2017-05-17] MEDS: oxyCODONE 5 MG/5 ML ORAL SOLN (roxiCODONE) 5 ML UDC PO PRN ×4 (04:57→21:31)
[2017-05-17] MEDS: IBUPROFEN SUSP 100MG/5ML (MOTRIN) UDC PO PRN ×3 (04:58→21:31)
[2017-05-17] MEDS: PIPERACILLIN SODIUM/TAZOBACTAM 4.5 GM in NS (IVPB) 100 ML IV SCH ×3 (06:53→22:32)
[2017-05-17] MEDS ORDERED: GENTAMICIN IV SCH (09:00)
[2017-05-17] MEDS ORDERED: NS IV SCH (09:00)
[2017-05-17] MEDS: LEVOTHYROXINE 100 MCG INJ (SYNTHROID) VIAL IV SCH (09:09)
[2017-05-17] MEDS: FUROSEMIDE 40 MG/4 ML INJ (LASIX) IVP SCH (09:09)
[2017-05-17] MEDS: meTOprolol TARTRATE 25 MG (LOPRESSOR) TABLET PO SCH ×2 (09:10→22:17)
[2017-05-17] MEDS: FLUCONAZOLE 100 MG/50 ML 50 ML IV SCH (09:10)
[2017-05-17] MEDS: CATHETER FLUSH 10 ML SYR IV SCH ×2 (09:10→22:17)
--- NOTE | 2017-05-17 09:10 | Progress Note-Cardiology ---
Cardiology SOAP Progress Note Subjective: S/p trach and on vent, but able to communicate Denies cp or palp or syncope Objective: I&O/Vital Signs Vital Sign - Last 12Hours 05/16/17 05/16/17 05/16/17 05/16/17 22:00 22:10 23:00 23:57 Pulse 95 104 98 90 Resp 19 24 17 16 B/P (MAP) 125/63 119/59 Pulse Ox 100 100 100 100 O2 Delivery Mechanical Ventilator Mechanical Ventilator O2 Flow Rate 30.00 30.00 FiO2 30 30 05/17/17 05/17/17 05/17/17 05/17/17 00:00 00:00 00:00 01:00 Temp 99.0 Pulse 92 90 Resp 17 B/P (MAP) 121/59 Pulse Ox 100 100 O2 Delivery Mechanical Ventilator Mechanical Ventilator O2 Flow Rate 30.00 FiO2 30 05/17/17 05/17/17 05/17/17 05/17/17 01:00 02:00 02:12 03:00 Pulse 90 92 90 94 Resp 20 19 20 19 B/P (MAP) 129/55 133/86 137/61 Pulse Ox 100 100 100 100 O2 Delivery Mechanical Ventilator Mechanical Ventilator Mechanical Ventilator O2 Flow Rate 30.00 30.00 30.00 FiO2 30 05/17/17 05/17/17 05/17/17 05/17/17 04:00 04:00 04:12 05:00 Pulse 96 95 96 Resp 22 18 22 B/P (MAP) 141/62 135/68 Pulse Ox 100 100 100 100 O2 Delivery Mechanical Ventilator Mechanical Ventilator Mechanical Ventilator O2 Flow Rate 30.00 30.00 FiO2 30 30 05/17/17 05/17/17 05/17/17 05/17/17 05:06 06:00 06:34 07:00 Temp 99.0 Pulse 96 94 96 Resp 22 18 19 B/P (MAP) 126/60 129/65 Pulse Ox 100 100 100 O2 Delivery Mechanical Ventilator Mechanical Ventilator O2 Flow Rate 30.00 30.00 FiO2 30 05/17/17 05/17/17 05/17/17 07:00 08:00 08:27 Pulse 91 95 92 Resp 18 20 B/P (MAP) 154/69 Pulse Ox 100 100 O2 Delivery Mechanical Ventilator O2 Flow Rate 30.00 FiO2 30 Intake and Output 05/17/17 00:00 Intake Total 925 ml Output Total 970 ml Balance -45 ml Weight (Pounds): 192 Weight (Ounces): 3.0 Weight (Calculated Kilograms): 87.293601 Constitutional: AAO x 3, well-developed, other (status post-trach; on mech vent ; able to communicate) Respiratory: other (Fair bilateral air entry; coarse airway sounds but no rhonchi) Cardiovascular: regular rate-rhythm, tachycardia, S1 and S2, other (Faint WILL at card base) Gastrointestional: other (Recent abdominal surgery, colostomy in place) Extremities: pedal edema, swelling (generalized), No clubbing, No cyanosis Neurologic/Psychiatric: no motor/sensory deficits, alert, grossly intact Skin: No rash on exposed areas Results/Procedures: Labs Laboratory Tests 05/16/17 18:25: Glucometer 126H 05/17/17 06:47: Glucometer 73 Microbiology 04/30/17 Blood Culture - Final, Complete No growth 05/04/17 Gram Stain - Final, Complete 05/04/17 Sputum Culture - Final, Complete Acinetobacter Baumanii See Comments Presumptive Ivy Albicans 05/12/17 Gram Stain - Final, Resulted 05/12/17 Anaerobic Culture - Final, Resulted No growth 05/12/17 Wound Culture - Final, Resulted No growth A/P: Assessment: Acute resp failure, multifactorial (see below); treated with tracheostomy and mech ventilation Perforated bowel and fecal peritonitis, treated with surgery in early April 2017 Septic shock, now resolved Multiple arrhythmias including NSVT and sustained episodes of PAF, stable on current regimen of metoprolol and propafenone Prerenal azotemia, mild, on blood work of 05/15/17 Generalized soft tissue swelling, likely due to hypoalbuminemia and 3rd spacing of fluid Plan: * I spoke with her and her family and discussed her CV issues * She has had a complex hospital course and multiple medical issues that are summarized above * Continue furosemide for gen edema, as needed and as tolerated * Monitor labs; correct electrolytes, as needed. Repeat lab work in CHUCK Rodrigez MD FACP FAC CCDS May 17, 2017 09:10
[2017-05-17] MEDS: PROPAFENONE 225 MG TAB PO SCH ×3 (09:11→22:18)
[2017-05-17] MEDS: LIDOCAINE (LIDODERM) 5% PATCH TOP SCH (09:11)
[2017-05-17] MEDS: DAKIN'S 1/4 STRENGTH (0.125%) 473 ML BTL TOP SCH (09:12)
[2017-05-17] MEDS: PANTOPRAZOLE 40 MG/10 ML (PROTONIX) VIAL IVP SCH (09:25)
[2017-05-17] MEDS: morphine INJ 4 MG/ML 1 ML (VIAL/SYRINGE) IVP PRN ×3 (10:00→22:24)
--- NOTE | 2017-05-17 10:52 | Diagnostic Imaging Report ---
INDICATION: Respiratory failure. TECHNIQUE: Single-view chest 4:55 AM. CORRELATION STUDY: 05/15/2017. FINDINGS: A left-sided central line, right-sided central line, and enteral feeding tube all remain in place. Two drainage catheters over the left upper abdomen also persisting. Heart size and mediastinum unchanged. Some improvement in overall aeration of the lung pinedo. IMPRESSION: 1. Generally stable appearance about the support lines and tubes. 2. Continued areas of infiltrate but overall some improvement in aeration of the lung pinedo. Dictated by: Dictated on workstation # [id number]
--- NOTE | 2017-05-17 12:02 | Progress Note-Hospitalist ---
Progress Note HPI/CC on Admission CC: Management of critical illness with acute peritonitis due to bowel perforation with aspiration of bowel contents during intubation HPI: This is a 61-year-old white female clinic patient of Dr. 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 Apparently she was wanting to go to [place] and used to suppository like she usually does because she is struggle with constipation since cardiac meds have been initiated several years ago but at noon time she started having a lot of pain to the extent that required emergency room evaluation. CT scan was obtained found to have bowel perforation with peritonitis and during intubation for surgery she aspirated bowel contents so she now has a diverting colostomy but the pictures during surgery appeared to have a multitude of impacted bowel contents within the abdominal cavity. I did speak with Dr. Horvath her primary care provider and employer and it appears that she is not up-to-date on her colonoscopy and has not had one before and she has had significant constipation issues for the past several years so I hypothesized that impacted stool has been an ongoing problem for her probably stretching the tissue over a long period time and finally rupturing causing this critical illness. She is requiring high doses of Levophed and closely monitoring due to severe sepsis and multisystem organ failure. She has received aggressive IV fluids per protocol and currently monitor closely due to history of arrhythmia maintained on Rythmol as an outpatient. She sees Dr. Ku cardiology at [place] after she failed undergoing ablation up in [place] years ago. I have consulted cardiology and full stack developer and eICU to facilitate management of this critically ill patient. 05/09/17 patient became quite anxious and hypertensive during pressure support trial apparently rather abruptly occurred and nursing staff. O2 saturations dropped to the 70s with altered mental status. There have been no change in medications associated with this. She was taken off of pressure support and placed back on mechanical ventilation. She is ventilating easily time of my arrival eyes were open pupils were 5 mm symmetrical and reactive but the patient was not responsive. She was moving all extremities. 05/10/17 patient is back to baseline state of anxiety and back to baseline levels of CO2 retention. She is resting comfortably upon my arrival and appears to be in no distress although when asked she always volunteers that she is having significant pain. Physical exam findings are unchanged from yesterday chest x-ray and labs are stableexcept for improved ABG levels compared to yesterday's distress levels. Progress Notes/Assess & Plan Date Seen 05/17/17 Time Seen by Provider: 10:15 Admission Dx/Process Assessment: Acute peritonitis from colonic perforation with impacted stool with history of severe chronic constipation status post diverting colostomy POD # 1 Aspiration of bowel contents during intubation for surgery with ventilator- dependent respiratory failure currently History of SVT/AF status post attempted ablation an unsuccessful maintained on Rythmol by Dr. Ku cardiology [place] History of hypertension Hypothyroidism Leukopenia due to sepsis Hypokalemia Diagonsis/Assessment & Plan Patient up in chair and doing remarkably well again today Still has trach but then later is turned off and breathing on her own Working with her hands and slow progress but motivated Reports pain continues but improved No fever, vital signs stable, pleasant, much improved, up in chair Regular rate and rhythm, coarse breath sounds all pinedo No edema change from 2+ Assessment: Acute peritonitis from colonic perforation with impacted stool with long history of severe chronic constipation status post diverting colostomy with septic shock requiring pressors and aggressive IVF management now improved and more stable but but unable to extubate as tentatively planned but will begin the wean process after trach placed likely will need [place] or other long- term facility Aspiration of bowel contents during intubation for surgery with ventilator- dependent respiratory failure currently maintained on abx History of SVT status post attempted ablation and unsuccessful maintained on Rythmol by Dr. Ku cardiology Shanta consulted Dr Nettles and his recs are appreciated and had an episode of AF last week resolved with suctioning History of hypertension Hypothyroidism Leukopenia due to sepsis now leukocytosis Hypokalemia replacing Metabolic acidosis due to sepsis Thrombocytopenia due to sepsis improved Anemia likely affiliated due to phlebotomy s/p 2 units of blood last week Plan: Monitor labs Maintain colostomy SCDs Stable but guarded Morphine dosage as needed Doing well DAVY ROME DO May 17, 2017 12:02
--- NOTE | 2017-05-17 12:41 | Progress Note-Standard ---
Standard Progress Note Progress Notes/Assess & Plan Date Seen by Provider: May 17, 2017 Time Seen by Provider: 10:10 Progress/Assessment & Plan 04/26/17:septic with severe leukopenia. Very poor urine output. On dual vasopressors. Sinus tachycardia. Outcome poor with expected mortality. Central venous pressure around 12. We'll continue to provide fluid resuscitation and maintain vasopressors for now. 04/27/17:continues to require vasopressor support. Urine output reasonable. Creatinine slightly elevated. Ventilation and oxygenation stable. Will place a wound VAC tomorrow. Continue supportive abdomen. Enteral nutrition in 24- 48 hours. DVT prophylaxis with low molecular weight heparin, renally adjusted dose 04/28/17:off the vasopressors. Renal function reasonable.NG output more than 1 L and therefore tube feeding will be delayed.electrolytes satisfactory.we'll continue current management. 04/29/17:Improving. Would facilitate diuresis before embarking on extubation. Intra-abdominal abscesses to be looked for by next week. L femoral arterial line satisfactory with no distal ischemia. Nutritional support in 24-48 hours. 04/30/17:slight change in her condition with decreased urine output and leukocytosis. Abdominal abscess in evolution very likely the culprit. More opacification of the right lung. We will try enteral feeding. Continue antibiotics 05/01/17 Diuresis in progress. Pressure mattress appropriate to prevent skin breakdown. Fascia intact. Tolerating tube feeds. Vent weaning over terrie next 24- 48 hours. HIT antibodies negative 05/04/17: Reintubated. Anasarca improved. Fascia intact. Intra-abdominal abscesses to be expected. CT scan in 48 hours. Tracheostomy discussed with the family and planned for this week 05/05/17:CONTINUES TO IMPROVE. pOOR MUSCLE STRENGTH. tRACHEOSTOMY IN [address] SCAN TOMORROW MORNING. 05/06/17:Intra-abdominal and pelvic abscesses drained percutaneously. Tracheostomy tomorrow. 05/08/17: Anxious and tearful, expected. Jejunal feeding in progress. Possible pseudomonas in cultures. Vent weaning initiated 05/11/17: Fluctuating temperature, possibly due to additional intra-abdominal abscesses. CT/drainage planned for tomorrow. Anasarca. Poor muscle strength 05/12/17: No major changes in her condition. Repeat CT scan ending. Vent weaning attempts in progress. Poor muscle strength. 05/13/17:improvements with weaning attempts. Patient is very upset about not being able to get the required pain medications due to changes and orders laced by Dr. Causey. Hemoglobin decreased to 7.5 and transfusion would be in order. Output from the radius drains very minimal and would therefore be removed soon. 05/14/17:continues to improve. Very minimal output from the initial set of drains placed a week ago. These will be removed soon.more awake. Physical therapy in progress. Weaning attempts to proceed 05/15/17:continues to improve. One more drain will be removed today. Physical and occupational therapy in progress. Abdominal wound granulating. 05/16/17:progressive improvement. Anxious to resume eating. Speech therapist requested to evaluate the risk of aspiration. Very minimal output from the drains, that would be removed in 24 hours. Long-term rehabilitation discussions initiated 05/17/17:continues to improve. Chest x-ray much clear.swallow evaluation in a.m. Final Diagnosis fecal peritonitis. MACY TALAVERA MD May 17, 2017 12:41 pm
[2017-05-17] MEDS: ENOXAPARIN 40 MG/0.4 ML (LOVENOX) SYR SC SCH (16:09)
[2017-05-17] MEDS: LIDOCAINE PATCH REMOVAL TP SCH (22:02)
[2017-05-18] VITALS (29 sets, daily range): BP systolic 119–200; BP diastolic 61–99
[2017-05-18] MEDS: DEXMEDETOMIDINE INJECTION 200 MCG in NS (IVPB) 50 ML IV SCH ×2 (01:03→03:47)
[2017-05-18] MEDS: RT-ALBUTEROL/IPRATROPIUM 3 ML (DUONEB) VIAL INH SCH ×6 (01:42→22:33)
[2017-05-18] MEDS: morphine INJ 4 MG/ML 1 ML (VIAL/SYRINGE) IVP PRN ×4 (02:29→22:06)
[2017-05-18] MEDS: RT-ALBUTEROL/IPRATROPIUM 3 ML (DUONEB) VIAL INH PRN ×2 (04:11→15:53)
[2017-05-18] MEDS: oxyCODONE 5 MG/5 ML ORAL SOLN (roxiCODONE) 5 ML UDC PO PRN ×3 (04:43→20:53)
[2017-05-18 05:00] LABS: BASOPHILS # (AUTO) 0.1 10^3/uL (0.0-0.1); BASOPHILS % (AUTO) 0 % (0-10); EOSINOPHILS # (AUTO) 0.1 10^3/uL (0.0-0.3); EOSINOPHILS % (AUTO) 1 % (0-10); LYMPHOCYTES # (AUTO) 0.9 X 10^3 (1.0-4.0); LYMPHOCYTES % (AUTO) 6 % (12-44); MEAN CORPUSCULAR HEMOGLOBIN 29 PG (25-34); MEAN CORPUSCULAR HGB CONC 32 G/DL (32-36); MEAN CORPUSCULAR VOLUME 89 FL (80-99); MEAN PLATELET VOLUME 9.8 FL (7.4-10.4); MONOCYTES % (AUTO) 7 % (0-12); NEUTROPHILS # (AUTO) 11.7 X 10^3 (1.8-7.8); NEUTROPHILS % (AUTO) 85 % (42-75); PLATELET COUNT 459 10^3/uL (130-400); RED BLOOD COUNT 3.52 10^6/uL (4.35-5.85); RED CELL DISTRIBUTION WIDTH 14.6 % (10.0-14.5); WHITE BLOOD COUNT 13.7 10^3/uL (4.3-11.0)
[2017-05-18] MEDS: KCL 20 MEQ TAB (K-DUR) PO SCH (05:23)
[2017-05-18 05:25] LABS: ANION GAP 12 MMOL/L (5-14); BLOOD UREA NITROGEN 45 MG/DL (7-18); BUN/CREATININE RATIO 55 (0-20); CALCIUM 8.3 MG/DL (8.5-10.1); CARBON DIOXIDE 26 MMOL/L (21-32); CHLORIDE 105 MMOL/L (98-107); CREATININE SERUM 0.82 MG/DL (0.60-1.30); GFR ESTIMATED > 60; GLUCOSE 128 MG/DL (70-105); HEMOLYSIS 5 (-100-29); ICTERUS 0.6 (-100-1.9); LIPEMIA 1 (-100-49); MAGNESIUM 1.9 MG/DL (1.8-2.4); PHOSPHORUS 4.3 MG/DL (2.3-4.7); POTASSIUM 3.8 MMOL/L (3.6-5.0); SODIUM 143 MMOL/L (135-145)
[2017-05-18] MEDS: MAGNESIUM 1 GM/100 ML IVPB 100 ML IV SCH (05:44)
[2017-05-18] MEDS: POTASSIUM CL 10MEQ/50ML IVPB 50 ML IV SCH (05:45)
[2017-05-18] MEDS: PIPERACILLIN SODIUM/TAZOBACTAM 4.5 GM in NS (IVPB) 100 ML IV SCH ×2 (06:18→15:38)
--- NOTE | 2017-05-18 07:04 | Pulmonary Progress Note ---
Subjective Subjective/Events-last exam Pt did well over weekend with weaning. SHe has been complaining of more SOB. Exam Exam Vital Signs Date Time Temp Pulse Resp B/P (MAP) Pulse Ox O2 Delivery O2 Flow Rate FiO2 05/18/17 06:00 98 21 171/75 100 Mechanical Ventilator 30.00 05/18/17 05:13 98.0 05/18/17 05:00 95 19 166/77 100 Mechanical Ventilator 30.00 05/18/17 04:43 98.0 05/18/17 04:11 93 23 100 30 05/18/17 04:00 92 19 177/82 100 Mechanical Ventilator 30.00 05/18/17 04:00 100 Mechanical Ventilator 30 05/18/17 03:00 86 21 157/76 100 Mechanical Ventilator 30.00 05/18/17 03:00 98.0 05/18/17 02:29 98.0 05/18/17 02:00 86 19 161/78 100 Mechanical Ventilator 30.00 05/18/17 01:42 88 19 100 30 05/18/17 01:00 81 05/18/17 01:00 81 20 143/70 100 Mechanical Ventilator 30.00 05/18/17 00:00 100 Mechanical Ventilator 30 05/18/17 00:00 79 17 119/61 100 Mechanical Ventilator 30.00 05/17/17 23:23 85 27 100 30 05/17/17 23:00 87 15 148/73 100 Mechanical Ventilator 30.00 05/17/17 22:00 87 19 152/70 100 Mechanical Ventilator 30.00 05/17/17 21:18 96 23 100 30 05/17/17 21:00 93 19 160/75 100 Mechanical Ventilator 30.00 05/17/17 20:00 100 Mechanical Ventilator 30 05/17/17 20:00 98.0 90 20 172/80 100 Mechanical Ventilator 30.00 05/17/17 19:00 90 22 169/80 100 Mechanical Ventilator 30.00 05/17/17 19:00 93 05/17/17 18:29 82 18 100 30 05/17/17 18:00 85 20 177/77 100 Mechanical Ventilator 30.00 05/17/17 17:00 82 16 158/73 100 Mechanical Ventilator 30.00 05/17/17 16:12 99.0 83 21 152/73 100 Mechanical Ventilator 30.00 05/17/17 16:00 100 Mechanical Ventilator 30 6/18/17 15:50 85 22 100 30 05/17/17 15:00 86 22 166/81 100 Mechanical Ventilator 30.00 05/17/17 14:27 82 24 100 30 05/17/17 14:00 85 22 166/87 100 Mechanical Ventilator 30.00 05/17/17 13:00 86 05/17/17 13:00 87 28 185/103 100 Mechanical Ventilator 30.00 05/17/17 12:30 98.3 05/17/17 12:00 84 26 163/79 100 Mechanical Ventilator 30.00 05/17/17 12:00 100 Mechanical Ventilator 30 05/17/17 11:00 79 18 164/85 100 Mechanical Ventilator 30.00 05/17/17 10:33 94 23 100 30 05/17/17 10:00 75 15 152/88 100 Mechanical Ventilator 30.00 05/17/17 09:00 93 17 149/69 100 Mechanical Ventilator 30.00 05/17/17 08:27 92 20 100 30 05/17/17 08:00 95 18 154/69 100 Mechanical Ventilator 30.00 05/17/17 08:00 100 Mechanical Ventilator 30 05/17/17 08:00 99.1 92 14 154/69 100 Mechanical Ventilator 30.00 05/17/17 07:00 91 05/17/17 07:00 96 19 129/65 100 Mechanical Ventilator 30.00 I & O 05/18/17 07:00 Intake Total 2141.25 ml Output Total 2550 ml Balance -408.75 ml General Appearance: No Apparent Distress (pt is awake/alert and comfortable on vent), Chronically ill Neck: Full Range of Motion, Normal Inspection Respiratory: No Accessory Muscle Use, No Respiratory Distress, Decreased Breath Sounds, Other (scattered rhonchi without wheezing. Breath sounds are equal bilaterally) Cardiovascular: Regular Rate, Rhythm, No Edema, No Gallop, No JVD, Normal Peripheral Pulses, Other (1 to 2/6 systolic ejection murmur heard at the left lower sternal border.) Capillary Refill: Less Than 3 Seconds Gastrointestinal: soft, tenderness Extremity: Other Neurologic/Psychiatric: Alert Skin: Normal Color, Warm/Dry, Pallor Lymphatic: No Adenopathy Results Lab Laboratory Tests 05/18/17 04:50 Assessment/Plan Assessment/Plan Acute respiratory failure since postop secondary to aspiration of bowel contents -- sputum is growing MDR Acinetobacter - Continue weaning trials. pt has been tolerating well - continue Precedex at night. D/C during daytime per family request - porsche tolbert Flagyl -s/p tracheostomy - Acute respiratory failure is now becoming chronic respiratory failure -up to chair daily as tolerated - Pt is tolerating up to chair well Pulmonary edema secondary to IVF -Pt is getting Lasix 40mg daily - change lasix to 6am daily - give 80mg today . -recheck BNP, CXR, and ABG Atelectasis -monitor -increase activity as tolerated Abdominal abscess s/p drain placement x 3 -Pain control with morphine 1-2 mg IV Q2 PRN -oxycodone Anemia - monitor - ASPIRATION PNA with MDR Acinetobacter -S/P bronchoscopy mucous plugging -- resolved Hypernatremia/hyperchloremia - Secondary to saline - -IVF are hep locked fee water NG flush to Q8 100cc Malnutrition/debility/weakness -TF with pulmicare -- tolerating well - Dobbhoff placement today -Pt is getting IV Synthroid -repeat TSH HX of SVT/AF -LABS AND CXR reviewed 233 45 min spent with patient RN, Rt explaining pt care plan. Clinical Quality Measures DVT/VTE Risk/Contraindication: Risk Factor Score Per Nursin RFS Level Per Nursing on Admit: 4+=Very High CHRISS ARTIS DO May 18, 2017 07:04
[2017-05-18] MEDS: FUROSEMIDE 40 MG/4 ML INJ (LASIX) IVP SCH (07:14)
[2017-05-18] MEDS ORDERED: FUROSEMIDE 40 MG/4 ML INJ (LASIX) IVP ONE (07:15)
[2017-05-18 08:09] LABS: ABG BASE EXCESS 4.4 MMOL/L (-2.5-2.5); ABG HCO3 28 MMOL/L (23-27); ABG OXYGEN SATURATION 91 % (94-100); ABG PCO2 42 MMHG (35-45); ABG PH 7.45 (7.37-7.43); ABG PO2 63 MMHG (79-93); ABG TCO2 29.5 MMOL/L (21.0-31.0); ALLENS TEST YES-POS; PATIENT TEMP 99.3
--- NOTE | 2017-05-18 08:14 | Diagnostic Imaging Report ---
INDICATION: Respiratory distress EXAMINATION: Portable chest at 7:26 AM. The patient has a tracheostomy tube. There is a feeding tube in place. Right upper extremity PICC line tip projects over the SVC. There are a few visible air bronchograms in the retrocardiac region of the left lower lung suggesting some residual consolidation in left lower lobe. IMPRESSION: Residual infiltrate and atelectasis in the left lower lung. Overall appearance is not significantly changed from previous day. Dictated by: Dictated on workstation # [id number]
[2017-05-18] MEDS: LEVOTHYROXINE 100 MCG INJ (SYNTHROID) VIAL IV SCH (08:22)
[2017-05-18] MEDS: LIDOCAINE (LIDODERM) 5% PATCH TOP SCH (08:23)
[2017-05-18] MEDS: CATHETER FLUSH 10 ML SYR IV SCH ×2 (08:23→21:13)
[2017-05-18] MEDS: FLUCONAZOLE 100 MG/50 ML 50 ML IV SCH (08:23)
[2017-05-18] MEDS: PROPAFENONE 225 MG TAB PO SCH ×3 (08:23→20:54)
[2017-05-18] MEDS: meTOprolol TARTRATE 25 MG (LOPRESSOR) TABLET PO SCH (08:23)
[2017-05-18] MEDS: PANTOPRAZOLE 40 MG/10 ML (PROTONIX) VIAL IVP SCH (08:23)
--- NOTE | 2017-05-18 09:20 | Physical Therapy Daily Note ---
PT Daily Note-Current Subjective Patient in bed pre tx, agrees to PT, has pain of 8/10 but I am unable to understand patient's description of where that pain is. Patient will be getting in the recliner via stephanie lift with assist of PT, PT tech, resp therapist, and an RN. Appearance Patient in recliner post tx with both RN and RT attending to patient. Mental Status Patient Orientation: Unable to Assess many attachments Transfers Functional [place] Measure 0=Not Assessed/NA 4=Minimal Assistance 1=Total Assistance 5=Supervision or Setup 2=Maximal Assistance 6=Modified [place] 3=Moderate Assistance 7=Complete IndependenceIRFPAI Quality Coding Scale 6 Independent with activity with or without an assistive device 5 Patient requires set up or clean up by helper. Patient completes activity by themselves 4 Supervision or touching assist (CGA). [place] provide cues , steadying assist 3 The helper provides less than half the effort to complete the activity 2 The helper provides more than half the effort to complete the activity 1 Dependent. The helper does all the effort to complete an activity 7 Patient refused to complete or attempt activity 9 The patient did not perform the activity before the current illness or injury 88 Not attempted due to Medical conditions or safety concerns Transfers (B, C, W/C) (FIM): 1 Scootin Rollin Bed to/from Chair: 1 Patient had to roll x2 to get sling underneath her, transferred to recliner via stephanie lift. Exercises Seated Therapy Exercises: Ankle pumps, Long arc quads Seated Reps: 15 Patient instructed to perform a set of AP and LAQ every 30 min until she went to bed. Treatments bed mobility, transfers, functional strengthening Assessment Current Status: Poor Progress no change in mobility, patient has some active dorsiflexion and knee extension but it is not even 3/5 with a manual muscle test, she fatigues quickly and can barely even perform just a few minutes of exercises PT Skilled Nursing Goals Bead Wrapper Goals PT Bead Wrapper Goals Time Frame: May 13, 2017 Transfers (B,C,W/C) (FIM): 4 Gait (FIM): 2 Gait distance (FIM): 1=up to 49 ft Gait Assistive Device: FWW PT Plan Problem List Problem List: Activity Tolerance, Functional Strength, Safety, Balance, Gait, Transfer, Bed Mobility, ROM Treatment/Plan Treatment Plan: Continue Plan of Care Treatment Plan: Bed Mobility, Education, Functional Activity Carlos A, Functional Strength, Gait, Safety, Therapeutic Exercise, Transfers Treatment Duration: May 13, 2017 Visits Per Week: 5-11 Safety Risks/Education Patient Education: Transfer Techniques, Correct Positioning, Safety Issues Teaching Recipient: Patient Teaching Methods: Demonstration, Discussion Response to Teaching: Reinforcement Needed Time/GCodes Time In: 850 Time Out: 910 Total Billed Treatment Time: 20 Total Billed Treatment 1 visit FA STEPHANE OLIVAS PT May 18, 2017 09:20
--- NOTE | 2017-05-18 10:25 | Cardiology Progress Note ---
Cardiology SOAP Progress Note Subjective: Stable Objective: I&O/Vital Signs Vital Sign - Last 12Hours 05/18/17 05/18/17 05/18/17 05/18/17 00:00 00:00 01:00 01:00 Pulse 79 81 81 Resp 17 20 B/P (MAP) 119/61 143/70 Pulse Ox 100 100 100 O2 Delivery Mechanical Ventilator Mechanical Ventilator Mechanical Ventilator O2 Flow Rate 30.00 30.00 FiO2 30 05/18/17 05/18/17 05/18/17 05/18/17 01:42 02:00 02:29 03:00 Temp 98.0 98.0 Pulse 88 86 Resp 19 B/P (MAP) 161/78 Pulse Ox 100 100 O2 Delivery Mechanical Ventilator O2 Flow Rate 30.00 FiO2 30 05/18/17 05/18/17 05/18/17 05/18/17 03:00 04:00 04:00 04:11 Pulse 86 92 93 Resp 23 B/P (MAP) 157/76 177/82 Pulse Ox 100 100 100 100 O2 Delivery Mechanical Ventilator Mechanical Ventilator Mechanical Ventilator O2 Flow Rate 30.00 30.00 FiO2 30 30 05/18/17 05/18/17 05/18/17 05/18/17 04:43 05:00 05:13 06:00 Temp 98.0 98.0 Pulse 95 98 Resp 21 B/P (MAP) 166/77 171/75 Pulse Ox 100 100 O2 Delivery Mechanical Ventilator Mechanical Ventilator O2 Flow Rate 30.00 30.00 05/18/17 05/18/17 05/18/17 05/18/17 06:38 07:00 08:00 08:00 Temp 98.2 Pulse 106 116 117 Resp 22 24 B/P (MAP) 159/69 Pulse Ox 100 100 100 O2 Delivery Mechanical Ventilator Mechanical Ventilator O2 Flow Rate 30.00 FiO2 30 30 05/18/17 05/18/17 05/18/17 08:01 09:53 11:03 Pulse 120 98 113 Resp 25 24 29 Pulse Ox 100 100 100 FiO2 30 30 30 Intake and Output 05/18/17 00:00 Intake Total 720 ml Output Total 1075 ml Balance -355 ml Weight (Pounds): 194 Weight (Ounces): 0.0 Weight (Calculated Kilograms): 87.301377 Constitutional: AAO x 3, well-developed, other (status post-trach; on mech vent ; able to communicate) Respiratory: other (Fair bilateral air entry; coarse airway sounds but no rhonchi) Cardiovascular: regular rate-rhythm, tachycardia, S1 and S2, other (Faint WILL at card base) Gastrointestional: other (Recent abdominal surgery, colostomy in place) Extremities: pedal edema, swelling (generalized), No clubbing, No cyanosis Neurologic/Psychiatric: no motor/sensory deficits, alert, grossly intact Skin: No rash on exposed areas Results/Procedures: Labs Laboratory Tests 05/17/17 18:52: Glucometer 107 05/18/17 04:50: White Blood Count 13.7H, Red Blood Count 3.52L, Hemoglobin 10.1L, Hematocrit 31L , Mean Corpuscular Volume 89, Mean Corpuscular Hemoglobin 29, Mean Corpuscular Hemoglobin Concent 32, Red Cell Distribution Width 14.6H, Platelet Count 459H, Mean Platelet Volume 9.8, Neutrophils (%) (Auto) 85H, Lymphocytes (%) (Auto) 6L , Monocytes (%) (Auto) 7, Eosinophils (%) (Auto) 1, Basophils (%) (Auto) 0, Neutrophils # (Auto) 11.7H, Lymphocytes # (Auto) 0.9L, Monocytes # (Auto) 1.0, Eosinophils # (Auto) 0.1, Basophils # (Auto) 0.1, Sodium Level 143, Potassium Level 3.8, Chloride Level 105, Carbon Dioxide Level 26, Anion Gap 12, Blood Urea Nitrogen 45H, Creatinine 0.82, Estimat Glomerular Filtration Rate > 60, BUN /Creatinine Ratio 55H, Glucose Level 128H, Calcium Level 8.3L, Phosphorus Level 4.3, Magnesium Level 1.9, B-Type Natriuretic Peptide 314.0H 05/18/17 08:00: Blood Gas Puncture Site RRAD, Blood Gas Patient Temperature 99.3, Arterial Blood pH 7.45H, Arterial Blood Partial Pressure CO2 42, Arterial Blood Partial Pressure O2 63L, Arterial Blood HCO3 28H, Arterial Blood Total CO2 29.5, Arterial Blood Oxygen Saturation 91L, Arterial Blood Base Excess 4.4H, Brannon Test YES-POS, Blood Gas Ventilator Setting YES, Blood Gas Inspired Oxygen 30% Microbiology 04/30/17 Blood Culture - Final, Complete No growth 05/04/17 Gram Stain - Final, Complete 05/04/17 Sputum Culture - Final, Complete Acinetobacter Baumanii See Comments Presumptive Ivy Albicans 05/12/17 Gram Stain - Final, Resulted 05/12/17 Anaerobic Culture - Final, Resulted No growth 05/12/17 Wound Culture - Preliminary, Resulted Staph, Coag Neg ([employer]) A/P: Assessment/Dx: Large bowel perforation, fecal peritonitis, severe septic shock. Nonsustained VT, PAF, Acute diastolic heart failure - resolved Plan: Large bowel perforation status post emergent abdominal surgery by Dr. Ng earlier in the hospital course. Peritonitis/severe septic shock: On broad-spectrum antibiotics. Significant improvement of sepsis. Status post trach, on SIMV mode on Ventilator (Critical Care myopathy). Nonsustained VT: infrequent PVCs. continue metoprolol. Continue aggressive repletion of electrolytes. on propafenone. PAF: currently in sinus rhythm. acute diastolic heart failure - resolved. mild bilateral edema noted. lasix PRN. Thank you for your consultation. Please call me if you have any questions. Jung Foote MD, FACP, FACC, FSCAI, FHRS, CCDS Interventional Cardiology Cardiac Electrophysiology Vascular Medicine and Endovascular Interventions Darshana FOOTE MD May 18, 2017 10:25
--- NOTE | 2017-05-18 11:28 | ST Dysphagia Evaluation ---
Speech Evaluation-General Medical Diagnosis Sigmoid Perf with Fecal Peritonitis Onset Date: April 25, 2017 Therapy Diagnosis Therapy Diagnosis: Suspected Severe Oropharyngeal Dysphagia Precautions Precautions: Aspiration Precautions/Isolations: Contact Isolation, Standard Precautions Referral Referring Physician: Dr. Cyrus Ng Reason for Referral: Evaluation/Treatment Clinical Bedside Swallowing Evaluation Medical History Pertinent Medical History: Arthritis, HTN, Hypothroidism Reviewed History: Yes Social History Current Living Status: Spouse Speech PLF/Current-Dysphagia Prior Level of Function The patient was unable to provide prior level of function to the clinician. Per chart review, it appears the patient consumed a regular diet with thin liquids prior to the perforation which resulted in hospitalization. Subjective The patient was recently admitted to [facility] following a sigmoid perforation with fecal peritonitis on April 25, 2017. The patient was initially intubated from April 25 to May 01, however, required reintubation on May 04. On May 07, 2017 the patient underwent tracheostomy tube placement. The patient remains on the ventilator, however, is participating in weaning trials at this time. The patient is receiving total nutrition, hydration, and medication via nasogastric tube. Upon entrance to room, the patient appears significantly anxious. The patient reports shortness of breath, however, limited discomfort. The patient's tracheostomy tube is currently in the cuffed position and connected the ventilation. Prior to the swallow evaluation, the patient's saturations appear stable. The process of the evaluation was discussed with the patient, who was agreeable to participation in the evaluation. CXR: 05/18/2017: Residual infiltrate and atelectasis in the left lower lung. Cognitive Status The patient is currently aphonic due to the cuffed tracheostomy in place. Oral Motor Skills Dentition: Natural Ability to Follow Directions: Good The patient is NPO pending results of swallowing evaluation. Oral Expression Ability: Unable (Due to the presence of a cuffed tracheostomy tube.) Tracheostomy Type: Cuffed (Patient remains on ventilator support.) Voice Voice Phonatory-Based Quality: [place] Face Facial Symmetry: Symmetrical Oral-Facial Assessment Oral-Facial Dentition: Normal Labial Seal Description: Weak (Bilaterally.) Smile: Reduced ROM (Reduced, bilateral retraction; overall weakness and decreased strength.) Puff Cheeks: Reduced Strength Lingual Protrusion: Abnormal (Decreased, however, midline protrusion.) Lingual ROM: Abnormal (Reduced bilateral, lateral range of motion.) Lingual Strength: Abnormal (Decreased strength, bilaterally.) Pharynx Velopharyngeal Move.: Normal Volitional Dry Swallow: Yes (Delayed, effortful.) Voluntary Cough: No Dysphagia Evaluation Consistencies Presented: Thin Liquid (Via Teaspoon) Oral Phase: Reduced Oral Transit - The patient demonstrated a tongue pumping motion (repetitive) to initiate a single swallow and move bolus material posterior in the oral cavity. Pharyngeal Phase: Multiple Swallow Attempts, Reduced Laryngeal Elevation, Delayed Swallow - The patient demonstrated facial grimacing upon swallowing, as well as, great effort. Vocal quality was unable to be assessed secondary to the presence of the ventilator and tracheostomy. Reduced laryngeal elevation was noted. - The patient demonstrated increased respiration and overall increased distress throughout limited bolus trials (two teaspoons of water, only). The bolus material was dyed blue to aid in visualization of possible aspiration through the tracheostomy site and subsequent tracheal suctioning. Bolus trials were deferred following the two teaspoons due to visual anxiety of patient, as well as, increased respirations and reports of shortness of breath. Dietary Recommendations: NPO Liquid Recommendations: NPO Due to the patient's current critical state, presence of ventilation, poor respiratory status, and continued anxiety/shortness of breath upon exertion, the speech pathologist does not deem the patient appropriate for further bolus trials or advancement of diet at the bedside, only. As the patient currently has a cuffed tracheostomy tube in place, the cuff would "catch" any material which attempted to enter the airway. Upon deflation of the cuff, the material resting on the inflated cuff would be subsequently aspirated. Pending deflation of cuffed tracheostomy (or adaption to cuffless tracheostomy) , PO bolus trials at bedside will be terminated due to the increased possibility and likelihood of aspiration. Prior to the advancement of the patient's diet, a video swallow is recommended for direct visualization of the patient's airway throughout the swallow due to her compromised state. This information was shared with the patient's RN, who verbalized comprehension. At this time, the patient should continue to receive total nutrition, hydration, and medication via NG tube. The speech pathologist will continue to provide oral care and dysphagia strengthening exercises to the patient. Once the patient is stable for transportation to radiology, a video swallow will be completed. Dysphagia Evaluation Summary At this time, the patient is suspected to have severe oropharyngeal dysphagia. Complete swallow evaluation is deterred secondary to the presence of a cuffed tracheostomy tube, increased shortness of breath, and increased anxiety surrounding bolus trials. Speech pathology is recommending a video swallow evaluation to directly visualize the airway in the presence of swallowing. Barriers to Learning Anxiety Speech Short Term Goals Short Term Goals Short Term Goals 1. The patient will demonstrate pharyngeal, base of tongue, laryngeal elevation , and labial strengthening exercises with 80% accuracy and mild clinician verbal cueing. 2. The patient will complete adequate oral care with 90% accuracy, independently. Time Frame-STG: Two Weeks Speech Retirement Goals Track Laying Equipment Operator Goals 1. The patient will tolerate bolus trials of the least restrictive consistency without signs/symptoms of aspiration. Time Frame: Four Weeks Speech-Plan Treatment Plan Speech Therapy Treatment Plan: Continue Plan of Care Continue skilled speech pathology to target improved strengthening of swallowing musculature. Treatment Duration: Jun 15, 2017 # of days/week Three Visits Per Week: Three Rehab Potential: Poor Safety Risks/Education Teaching Recipient: Patient Teaching Methods: Discussion Response to Teaching: Verbalize Understanding Education Topics Provided: Results, Recommendations, Plan of Care Time Speech Therapy Time In: 10:30 Speech Therapy Time Out: 10:50 Total Billed Time: 20 Billed Treatment Time 1, DARRIAN DICKERSON May 18, 2017 11:28
[2017-05-18] MEDS: DAKIN'S 1/4 STRENGTH (0.125%) 473 ML BTL TOP SCH (11:44)
[2017-05-18] MEDS: IBUPROFEN SUSP 100MG/5ML (MOTRIN) UDC PO PRN ×2 (13:17→20:53)
[2017-05-18] MEDS: ENOXAPARIN 40 MG/0.4 ML (LOVENOX) SYR SC SCH (13:25)
[2017-05-18 13:29] LABS: BASOPHILS # (AUTO) 0.1 10^3/uL (0.0-0.1); BASOPHILS % (AUTO) 0 % (0-10); EOSINOPHILS % (AUTO) 0 % (0-10); LYMPHOCYTES # (AUTO) 0.7 X 10^3 (1.0-4.0); LYMPHOCYTES % (AUTO) 4 % (12-44); MEAN CORPUSCULAR HEMOGLOBIN 28 PG (25-34); MEAN CORPUSCULAR HGB CONC 32 G/DL (32-36); MEAN CORPUSCULAR VOLUME 90 FL (80-99); MONOCYTES % (AUTO) 6 % (0-12); NEUTROPHILS # (AUTO) 15.6 X 10^3 (1.8-7.8); NEUTROPHILS % (AUTO) 90 % (42-75); PLATELET COUNT 526 10^3/uL (130-400); RED CELL DISTRIBUTION WIDTH 14.8 % (10.0-14.5); WHITE BLOOD COUNT 17.3 10^3/uL (4.3-11.0)
[2017-05-18 13:48] LABS: ANION GAP 10 MMOL/L (5-14); BLOOD UREA NITROGEN 43 MG/DL (7-18); BUN/CREATININE RATIO 51 (0-20); CALCIUM 8.5 MG/DL (8.5-10.1); CARBON DIOXIDE 30 MMOL/L (21-32); CHLORIDE 103 MMOL/L (98-107); CREATININE SERUM 0.84 MG/DL (0.60-1.30); GFR ESTIMATED > 60; GLUCOSE 178 MG/DL (70-105); HEMOLYSIS 9 (-100-29); ICTERUS 0.6 (-100-1.9); LIPEMIA 1 (-100-49); MAGNESIUM 1.8 MG/DL (1.8-2.4); PHOSPHORUS 4.6 MG/DL (2.3-4.7); POTASSIUM 3.6 MMOL/L (3.6-5.0); SODIUM 143 MMOL/L (135-145)
[2017-05-18 14:03] LABS: NEUTROPHILS % (MANUAL) 89 %
[2017-05-18 14:04] LABS: ANISOCYTOSIS SLIGHT; HYPOCHROMASIA MODERATE; LYMPHOCYTES % (MANUAL) 4 %; POIKILOCYTOSIS SLIGHT; REACTIVE LYMPHOCYTES 2 %
--- NOTE | 2017-05-18 14:37 | Occupational Ther Daily Note ---
OT Current Status-Daily Note Subjective Pt. is able to mouth the words indicating that she was having no pain at this time. Appearance Pt. is in bed. Awake and alert. Mental Status/Objective Patient Orientation: Person Functional [place] Measure 0=Not Assessed/NA 4=Minimal Assistance 1=Total Assistance 5=Supervision or Setup 2=Maximal Assistance 6=Modified [place] 3=Moderate Assistance 7=Complete [place] Attachments: Reynolds Catheter, IV, NG Tube, Oxygen, Telemetry Other Treatment Pt. is supine with bilateral UE laid out in front of her. Note neoprene gloves on bilateral hands to reduce swelling. Bilateral UE demonstrate swelling in hands, and up through upper arm. OT provides gentle retrograde massage to decrease swelling. Pt. is able to indicate that her skin does not feel too sensitive, and that she has all feeling by nodding when these questions are asked. OT applied gentle PROM to bilateral shoulders, elbows, wrists, and fingers. Note that pt. does have trace finger flexors, as well as tricep extension on right UE. Pt. is also able to slightly shrug shoulders, and is able to turn her head from looking to left, to about neutral. Family in room and educated about providing massage to decrease sensitivity and reduce swelling. Family verbalizes understanding. Pt. awake and alert throughout treatment. Family and pt. are asked if they have any concerns or questions. Pt. is able to indicate that she would like the fan to face her. All needs met in room. Education OT Patient Education: Correct positioning, Exercise program, Instructions to caregiver, Progress toward Goal/Update tx plan, Purpose of tx/functional activities, Reviewed precautions, Rehab process, Transfer techniques Teaching Recipient: Patient, Family Teaching Methods: Demonstration, Discussion Response to Teaching: Verbalize Understanding, Return Demonstration OT Short Term Goals Short Term Goals 1=Demonstrate adherence to instructed precautions during ADL tasks. 2=Patient will verbalize/demonstrate understanding of assistive devices/ modifications for ADL. 3=Patient will improve strength/tolerance for activity to enable patient to perform ADL's. OT Shingle Cutter Goals Shingle Cutter Goals Time Frame: May 18, 2017 - Decrease edema to allow functional use bilat UEs. - Increase functional use UEs - Increase participation in basic self care as pt status changes Additional Goals: 3-ImproveStrength/Carlos A 1=Demonstrate adherence to instructed precautions during ADL tasks. 2=Patient will verbalize/demonstrate understanding of assistive devices/ modifications for ADL. 3=Patient will improve strength/tolerance for activity to enable patient to perform ADL's. OT Education/Plan Problem List/Assessment Assessment: Decreased Activ Tolerance, Decreased Safety Aware, Decreased UE Strength, Dependent Transfers, Impaired Bed Mobility, Impaired Cognition, Impaired Coordination, Impaired Funct Balance, Impaired I ADL's, Impaired Self- Care Skills, Restricted Funct UE ROM Pt would benefit from skilled OT to help increase functional use of bilat UEs and independence in basic self care to decrease caregiver burden and assist with discharge planning Discharge Recommendations Plan/Recommendations: Continue POC Therapy D/C Recommendations: Acute Rehab Treatment Plan/Plan of Care Treatment,Training & Education: Yes Patient would benefit from OT for education, treatment and training to promote independence in ADL's, mobility, safety and/or upper extremity function for ADL' s. Plan of Care: ADL Retraining (when appropriate), Caregiver Training, Functional Mobility, UE Funct Exercise/Act, UE Neuromus Re-Ed/Coord, W/C Management Training Treatment Duration: May 18, 2017 Visits Per Week: 5 Agreement: No (pt unable to participate in decision making. No family present) Rehab Potential: Fair Time/GCodes Start Time: 13:50 Stop Time: 14:15 Total Time Billed (hr/min): 25 Billed Treatment Time 1, EX x 2 JAILYN ASHER OT May 18, 2017 14:37
--- NOTE | 2017-05-18 16:26 | Progress Note-Hospitalist ---
Standard Progress Note Progress Notes/Assess & Plan Date Seen 05/18/17 Time Seen by Provider: 16:21 Diagnosis Assessment: Acute peritonitis from colonic perforation with impacted stool with history of severe chronic constipation status post diverting colostomy POD # 1 Aspiration of bowel contents during intubation for surgery with ventilator- dependent respiratory failure currently History of SVT/AF status post attempted ablation an unsuccessful maintained on Rythmol by Dr. Ku cardiology [place] History of hypertension Hypothyroidism Leukopenia due to sepsis Hypokalemia Assess & Plan/Chief Complaint The patient looks greatly improved and is more interactive than I last saw her a week ago. She is afebrile. White count continues to run high at 17,300. Hemoglobin stable at 10.5. Several of her percutaneously placed drains have been removed from the abdomen. She sat up for 4 hours in the chair at bedside today. Physical exam: She smiles and mouths words when spoken to. She remains on the ventilator. Lungs are clear to auscultation. CV is regular with a rate in the low 100s. SaO2 is 95 and greater. Extremities show much less edema than last week. Impression: Status post-large bowel Perforation with multiple postoperative abscesses. Respiratory failure. History of previous multiple foci supraventricular tachycardia Labs Laboratory Tests 05/18/17 04:50 05/18/17 13:20 SAM FULTON MD May 18, 2017 16:26
[2017-05-18] MEDS ORDERED: LABETALOL HCL 20 MG/4 ML VIAL IV NR (17:15)
--- NOTE | 2017-05-18 17:25 | Progress Note-Standard ---
Standard Progress Note Progress Notes/Assess & Plan Date Seen by Provider: May 18, 2017 Time Seen by Provider: 15:10 Progress/Assessment & Plan 04/26/17:septic with severe leukopenia. Very poor urine output. On dual vasopressors. Sinus tachycardia. Outcome poor with expected mortality. Central venous pressure around 12. We'll continue to provide fluid resuscitation and maintain vasopressors for now. 04/27/17:continues to require vasopressor support. Urine output reasonable. Creatinine slightly elevated. Ventilation and oxygenation stable. Will place a wound VAC tomorrow. Continue supportive abdomen. Enteral nutrition in 24- 48 hours. DVT prophylaxis with low molecular weight heparin, renally adjusted dose 04/28/17:off the vasopressors. Renal function reasonable.NG output more than 1 L and therefore tube feeding will be delayed.electrolytes satisfactory.we'll continue current management. 04/29/17:Improving. Would facilitate diuresis before embarking on extubation. Intra-abdominal abscesses to be looked for by next week. L femoral arterial line satisfactory with no distal ischemia. Nutritional support in 24-48 hours. 04/30/17:slight change in her condition with decreased urine output and leukocytosis. Abdominal abscess in evolution very likely the culprit. More opacification of the right lung. We will try enteral feeding. Continue antibiotics 05/01/17 Diuresis in progress. Pressure mattress appropriate to prevent skin breakdown. Fascia intact. Tolerating tube feeds. Vent weaning over terrie next 24- 48 hours. HIT antibodies negative 05/04/17: Reintubated. Anasarca improved. Fascia intact. Intra-abdominal abscesses to be expected. CT scan in 48 hours. Tracheostomy discussed with the family and planned for this week 05/05/17:CONTINUES TO IMPROVE. pOOR MUSCLE STRENGTH. tRACHEOSTOMY IN [address] SCAN TOMORROW MORNING. 05/06/17:Intra-abdominal and pelvic abscesses drained percutaneously. Tracheostomy tomorrow. 05/08/17: Anxious and tearful, expected. Jejunal feeding in progress. Possible pseudomonas in cultures. Vent weaning initiated 05/11/17: Fluctuating temperature, possibly due to additional intra-abdominal abscesses. CT/drainage planned for tomorrow. Anasarca. Poor muscle strength 05/12/17: No major changes in her condition. Repeat CT scan ending. Vent weaning attempts in progress. Poor muscle strength. 05/13/17:improvements with weaning attempts. Patient is very upset about not being able to get the required pain medications due to changes and orders laced by Dr. Causey. Hemoglobin decreased to 7.5 and transfusion would be in order. Output from the radius drains very minimal and would therefore be removed soon. 05/14/17:continues to improve. Very minimal output from the initial set of drains placed a week ago. These will be removed soon.more awake. Physical therapy in progress. Weaning attempts to proceed 05/15/17:continues to improve. One more drain will be removed today. Physical and occupational therapy in progress. Abdominal wound granulating. 05/16/17:progressive improvement. Anxious to resume eating. Speech therapist requested to evaluate the risk of aspiration. Very minimal output from the drains, that would be removed in 24 hours. Long-term rehabilitation discussions initiated 05/17/17:continues to improve. Chest x-ray much clear.swallow evaluation in a.m. 05/18/17: Patient reports being fatigued but the respiratory parameters appear to be satisfactory. The last abdominal drain will be removed today. Continue vent weaning measures Final Diagnosis Fecal peritonitis MACY TALAVERA MD May 18, 2017 17:25
[2017-05-18] MEDS: DOCUSATE SODIUM 100 MG (COLACE) CAP PO SCH (20:53)
[2017-05-18] MEDS: CARVEDILOL 6.25 MG (COREG) TAB PO SCH (20:53)
[2017-05-18] MEDS: LIDOCAINE PATCH REMOVAL TP SCH (22:24)
[2017-05-19] VITALS (35 sets, daily range): BP systolic 122–175; BP diastolic 54–74
[2017-05-19] MEDS ORDERED: NS (IVPB) 50 ML ONE (00:11)
[2017-05-19] MEDS: DEXMEDETOMIDINE INJECTION 200 MCG in NS (IVPB) 50 ML IV SCH ×3 (00:19→23:49)
[2017-05-19] MEDS: PIPERACILLIN SODIUM/TAZOBACTAM 4.5 GM in NS (IVPB) 100 ML IV SCH ×3 (00:59→13:48)
[2017-05-19] MEDS: RT-ALBUTEROL/IPRATROPIUM 3 ML (DUONEB) VIAL INH SCH ×6 (02:24→22:01)
[2017-05-19] MEDS: morphine INJ 4 MG/ML 1 ML (VIAL/SYRINGE) IVP PRN ×4 (02:56→20:42)
[2017-05-19] MEDS: oxyCODONE 5 MG/5 ML ORAL SOLN (roxiCODONE) 5 ML UDC PO PRN ×3 (06:00→20:42)
[2017-05-19] MEDS: IBUPROFEN SUSP 100MG/5ML (MOTRIN) UDC PO PRN ×3 (06:01→20:43)
[2017-05-19] MEDS: FUROSEMIDE 40 MG/4 ML INJ (LASIX) IVP SCH (06:01)
[2017-05-19 06:28] LABS: BASOPHILS # (AUTO) 0.1 10^3/uL (0.0-0.1); BASOPHILS % (AUTO) 1 % (0-10); EOSINOPHILS # (AUTO) 0.2 10^3/uL (0.0-0.3); EOSINOPHILS % (AUTO) 2 % (0-10); LYMPHOCYTES # (AUTO) 0.9 X 10^3 (1.0-4.0); LYMPHOCYTES % (AUTO) 8 % (12-44); MEAN CORPUSCULAR HEMOGLOBIN 28 PG (25-34); MEAN CORPUSCULAR HGB CONC 31 G/DL (32-36); MEAN CORPUSCULAR VOLUME 92 FL (80-99); MEAN PLATELET VOLUME 10.2 FL (7.4-10.4); MONOCYTES # (AUTO) 0.8 X 10^3 (0.0-1.0); MONOCYTES % (AUTO) 7 % (0-12); NEUTROPHILS # (AUTO) 9.5 X 10^3 (1.8-7.8); NEUTROPHILS % (AUTO) 83 % (42-75); PLATELET COUNT 483 10^3/uL (130-400); RED BLOOD COUNT 3.23 10^6/uL (4.35-5.85); RED CELL DISTRIBUTION WIDTH 14.8 % (10.0-14.5); WHITE BLOOD COUNT 11.4 10^3/uL (4.3-11.0)
[2017-05-19 06:44] LABS: PHOSPHORUS 4.4 MG/DL (2.3-4.7)
--- NOTE | 2017-05-19 06:46 | Pulmonary Progress Note ---
Subjective Subjective/Events-last exam Pt did well with weaning yesterday. RT was able to leave her on spontaneous mode for about 4hrs yesterday Exam Exam Vital Signs Date Time Temp Pulse Resp B/P (MAP) Pulse Ox O2 Delivery O2 Flow Rate FiO2 05/19/17 06:00 76 17 146/62 100 Mechanical Ventilator 30.00 05/19/17 05:00 75 16 143/60 100 Mechanical Ventilator 30.00 05/19/17 04:00 75 16 144/60 100 Mechanical Ventilator 30.00 05/19/17 04:00 100 Mechanical Ventilator 30 05/19/17 03:00 78 19 150/63 100 Mechanical Ventilator 30.00 05/19/17 02:28 83 16 100 30 05/19/17 02:00 79 18 140/62 100 Mechanical Ventilator 30.00 05/19/17 01:00 81 19 145/62 100 Mechanical Ventilator 30.00 05/19/17 01:00 81 05/19/17 00:28 76 19 100 30 05/19/17 00:00 100 Mechanical Ventilator 30 05/19/17 00:00 76 19 122/54 100 Mechanical Ventilator 30.00 05/18/17 23:00 80 17 136/63 100 Mechanical Ventilator 30.00 05/18/17 22:34 82 21 100 30 05/18/17 22:00 82 23 153/77 100 Mechanical Ventilator 30.00 05/18/17 21:00 86 23 170/73 100 Mechanical Ventilator 30.00 05/18/17 20:48 87 24 100 30 05/18/17 20:00 100 Mechanical Ventilator 30 05/18/17 20:00 92 24 154/77 100 Mechanical Ventilator 30.00 05/18/17 19:54 97.4 91 26 152/82 100 Mechanical Ventilator 30.00 05/18/17 19:00 93 05/18/17 19:00 93 24 152/82 100 Mechanical Ventilator 30.00 05/18/17 18:44 96 27 100 30 05/18/17 18:00 92 32 168/82 100 Mechanical Ventilator 30.00 05/18/17 17:00 109 24 179/90 100 Mechanical Ventilator 30.00 05/18/17 16:22 109 25 100 30 05/18/17 16:00 100 Mechanical Ventilator 30 05/18/17 16:00 98.9 05/18/17 16:00 109 30 183/94 100 Mechanical Ventilator 30.00 05/18/17 15:53 107 24 100 30 05/18/17 15:00 105 22 172/86 100 Mechanical Ventilator 30.00 05/18/17 14:01 97 23 100 30 05/18/17 14:00 98 26 173/79 100 Mechanical Ventilator 30.00 05/18/17 13:00 97.8 98 27 170/77 100 Mechanical Ventilator 30.00 05/18/17 13:00 99 05/18/17 12:21 114 27 100 30 05/18/17 12:00 100 Mechanical Ventilator 30 05/18/17 12:00 113 28 188/89 100 Mechanical Ventilator 30.00 05/18/17 11:03 113 29 100 30 05/18/17 11:00 112 30 199/99 100 Mechanical Ventilator 30.00 05/18/17 10:00 104 26 155/83 100 Mechanical Ventilator 30.00 05/18/17 09:53 98 24 100 30 05/18/17 09:00 102 28 161/75 100 Mechanical Ventilator 30.00 05/18/17 08:01 120 25 100 30 05/18/17 08:00 100 Mechanical Ventilator 30 05/18/17 08:00 98.2 117 24 159/69 100 Mechanical Ventilator 30.00 05/18/17 07:00 116 05/18/17 07:00 112 25 171/77 100 Mechanical Ventilator 30.00 I & O 05/19/17 07:00 Intake Total 1525 ml Output Total 3775 ml Balance -2250 ml General Appearance: No Apparent Distress (pt is awake/alert and comfortable on vent), Chronically ill Neck: Full Range of Motion, Normal Inspection Respiratory: No Accessory Muscle Use, No Respiratory Distress, Decreased Breath Sounds, Other (scattered rhonchi without wheezing. Breath sounds are equal bilaterally) Cardiovascular: Regular Rate, Rhythm, No Edema, No Gallop, No JVD, Normal Peripheral Pulses, Other (1 to 2/6 systolic ejection murmur heard at the left lower sternal border.) Capillary Refill: Less Than 3 Seconds Gastrointestinal: soft, tenderness Extremity: Other Neurologic/Psychiatric: Alert Skin: Normal Color, Warm/Dry, Pallor Lymphatic: No Adenopathy Results Lab Laboratory Tests 05/18/17 04:50 05/18/17 13:20 05/19/17 05:50 Assessment/Plan Assessment/Plan Acute respiratory failure since postop secondary to aspiration of bowel contents -- sputum is growing MDR Acinetobacter - Continue weaning trials. pt has been tolerating well -- will go to spontaneous mode today with PS 10 and PEEP of 5 - continue Precedex at night. D/C during daytime per family request - porsche tolbert Flagyl -s/p tracheostomy - Acute respiratory failure is now becoming chronic respiratory failure -up to chair daily as tolerated - Pt is tolerating up to chair well Pulmonary edema secondary to IVF -Pt is getting Lasix 40mg daily - change lasix to 6am daily - give 80mg today . -recheck BNP, CXR, and ABG Atelectasis -monitor -increase activity as tolerated Abdominal abscess s/p drain placement x 3 -Pain control with morphine 1-2 mg IV Q2 PRN -oxycodone Anemia - monitor Hypernatremia/hyperchloremia - Secondary to saline - -IVF are hep locked fee water NG flush to Q8 100cc Malnutrition/debility/weakness -Pt is tolerating TF well -check with dietary about increasing protein. repeat prealbumin -Will give albumin 25gms IV Q8 at least times 3 -Pt is getting IV Synthroid -repeat TSH HX of SVT/AF -LABS AND CXR reviewed 233 45 min spent with patient RN, Rt explaining pt care plan. Clinical Quality Measures DVT/VTE Risk/Contraindication: Risk Factor Score Per Nursin RFS Level Per Nursing on Admit: 4+=Very High CHRISS ARTIS DO May 19, 2017 06:46
[2017-05-19] MEDS: KCL 20 MEQ TAB (K-DUR) PO SCH (06:56)
[2017-05-19] MEDS: MAGNESIUM 1 GM/100 ML IVPB 100 ML IV SCH (06:58)
[2017-05-19 07:11] LABS: ALBUMIN 1.9 GM/DL (3.2-4.5); ANION GAP 10 MMOL/L (5-14); BLOOD UREA NITROGEN 45 MG/DL (7-18); BUN/CREATININE RATIO 58 (0-20); CALCIUM 8.5 MG/DL (8.5-10.1); CARBON DIOXIDE 29 MMOL/L (21-32); CHLORIDE 103 MMOL/L (98-107); CREATININE SERUM 0.78 MG/DL (0.60-1.30); GFR ESTIMATED > 60; GLUCOSE 131 MG/DL (70-105); HEMOLYSIS 6 (-100-29); ICTERUS 0.4 (-100-1.9); LIPEMIA 7 (-100-49); POTASSIUM 3.2 MMOL/L (3.6-5.0); SODIUM 142 MMOL/L (135-145)
[2017-05-19] MEDS: POTASSIUM CL 10MEQ/50ML IVPB 50 ML IV SCH ×4 (07:35→10:51)
[2017-05-19] MEDS: PANTOPRAZOLE 40 MG/10 ML (PROTONIX) VIAL IVP SCH (08:53)
[2017-05-19] MEDS: LEVOTHYROXINE 100 MCG INJ (SYNTHROID) VIAL IV SCH (08:53)
[2017-05-19] MEDS: CATHETER FLUSH 10 ML SYR IV SCH ×2 (08:54→20:44)
[2017-05-19] MEDS: FLUCONAZOLE 100 MG/50 ML 50 ML IV SCH (08:54)
[2017-05-19] MEDS: DOCUSATE SODIUM 100 MG (COLACE) CAP PO SCH ×3 (08:54→20:42)
[2017-05-19] MEDS: CARVEDILOL 6.25 MG (COREG) TAB PO SCH ×2 (08:54→20:42)
[2017-05-19] MEDS: LIDOCAINE (LIDODERM) 5% PATCH TOP SCH (09:14)
[2017-05-19] MEDS: DAKIN'S 1/4 STRENGTH (0.125%) 473 ML BTL TOP SCH (09:22)
[2017-05-19] MEDS: PROPAFENONE 225 MG TAB PO SCH ×3 (09:24→20:44)
--- NOTE | 2017-05-19 09:49 | Physical Therapy Daily Note ---
PT Daily Note-Current Subjective Patient agrees to PT. Pain Numeric Pain Scale: 5-Moderate Pain Location: Soft Tissue Location Body Site: Generalized Pain Description: Ache Mental Status Patient Orientation: Normal For Age Attachments: Colostomy/Ileostomy, Ventilator, Reynolds Catheter, IV Transfers Functional [place] Measure 0=Not Assessed/NA 4=Minimal Assistance 1=Total Assistance 5=Supervision or Setup 2=Maximal Assistance 6=Modified [place] 3=Moderate Assistance 7=Complete IndependenceIRFPAI Quality Coding Scale 6 Independent with activity with or without an assistive device 5 Patient requires set up or clean up by helper. Patient completes activity by themselves 4 Supervision or touching assist (CGA). Phelps provide cues , steadying assist 3 The helper provides less than half the effort to complete the activity 2 The helper provides more than half the effort to complete the activity 1 Dependent. The helper does all the effort to complete an activity 7 Patient refused to complete or attempt activity 9 The patient did not perform the activity before the current illness or injury 88 Not attempted due to Medical conditions or safety concerns Transfers (B, C, W/C) (FIM): 1 Scootin Rollin Supine to/from Sit: 1 Sit to/from Stand: 1 Bed to/from Chair: 1 Dawna transfer with family, nursing, and staff Exercises Supine Ex: Ankle pumps, Heel Slides, Hip abd/add Supine Reps: 10 (PROM) Seated Therapy Exercises: Ankle pumps, Long arc quads Seated Reps: 10 (AAROM) Assessment Patient continues to make very slow process with treatment due to extensive medical issues. PT utilizes exercises to facilitate muscle contractions to improve functional strength. PT Detention Goals Machine Stripper Goals PT Machine Stripper Goals Time Frame: May 13, 2017 Transfers (B,C,W/C) (FIM): 4 Gait (FIM): 2 Gait distance (FIM): 1=up to 49 ft Gait Assistive Device: FWW PT Plan Treatment/Plan Treatment Plan: Continue Plan of Care Treatment Plan: Bed Mobility, Education, Functional Activity Carlos A, Functional Strength, Gait, Safety, Therapeutic Exercise, Transfers Treatment Duration: May 13, 2017 Visits Per Week: 5-11 Time/GCodes Time In: 900 Time Out: 925 Total Billed Treatment Time: 25 Total Billed Treatment 1 visit FA 10 min EX 15 min JOSE CARUSO PT May 19, 2017 09:49
--- NOTE | 2017-05-19 10:56 | Occupational Ther Daily Note ---
OT Current Status-Daily Note Subjective Pt alert, sitting up in recliner. Family present in room. Nodded to questions appropriately. Mental Status/Objective Patient Orientation: Person, Place, Non-Verbal/Aphasic, Time, Situation Functional [place] Measure 0=Not Assessed/NA 4=Minimal Assistance 1=Total Assistance 5=Supervision or Setup 2=Maximal Assistance 6=Modified [place] 3=Moderate Assistance 7=Complete [place] Other Treatment Bilateral UE demonstrate swelling in hands, and up through upper arm, has decreased per family. OT provides gentle retrograde massage to decrease swelling. Pt. is able to indicate that her skin does not feel too sensitive, and that she has all feeling by nodding when these questions are asked. OT applied gentle PROM to bilateral shoulders, elbows, wrists, and fingers. Note that pt. does have trace finger flexors, tricep extension, pronation/supination and shldr adduction. Muscle tapping for muscle active movement. Family in room and educated about providing massage to decrease sensitivity and reduce swelling. Family verbalizes understanding. Pt. awake and alert throughout treatment. Respiratory in room. All needs met in room. Education OT Patient Education: Instructions to caregiver Teaching Recipient: Family Teaching Methods: Demonstration Response to Teaching: Verbalize Understanding OT Short Term Goals Short Term Goals 1=Demonstrate adherence to instructed precautions during ADL tasks. 2=Patient will verbalize/demonstrate understanding of assistive devices/ modifications for ADL. 3=Patient will improve strength/tolerance for activity to enable patient to perform ADL's. OT Long-Term Goals Fuse Assembler Goals Time Frame: May 18, 2017 - Decrease edema to allow functional use bilat UEs. - Increase functional use UEs - Increase participation in basic self care as pt status changes Additional Goals: 3-ImproveStrength/Carlos A 1=Demonstrate adherence to instructed precautions during ADL tasks. 2=Patient will verbalize/demonstrate understanding of assistive devices/ modifications for ADL. 3=Patient will improve strength/tolerance for activity to enable patient to perform ADL's. OT Education/Plan Problem List/Assessment Pt would benefit from skilled OT to help increase functional use of bilat UEs and independence in basic self care to decrease caregiver burden and assist with discharge planning Discharge Recommendations Plan/Recommendations: Continue POC Treatment Plan/Plan of Care Patient would benefit from OT for education, treatment and training to promote independence in ADL's, mobility, safety and/or upper extremity function for ADL' s. Plan of Care: ADL Retraining (when appropriate), Caregiver Training, Functional Mobility, UE Funct Exercise/Act, UE Neuromus Re-Ed/Coord, W/C Management Training Treatment Duration: May 18, 2017 Visits Per Week: 5 Agreement: No (pt unable to participate in decision making. No family present) Rehab Potential: Fair Time/GCodes Start Time: 10:20 Stop Time: 10:45 Total Time Billed (hr/min): 25 Billed Treatment Time 1 visit-NM 2 (25 min) LILY INMAN May 19, 2017 10:56
--- NOTE | 2017-05-19 12:54 | Cardiology Progress Note ---
Cardiology SOAP Progress Note Subjective: stable Objective: I&O/Vital Signs Vital Sign - Last 12Hours 05/19/17 05/19/17 05/19/17 05/19/17 01:00 01:00 02:00 02:28 Pulse 81 81 79 83 Resp 19 18 16 B/P (MAP) 145/62 140/62 Pulse Ox 100 100 100 O2 Delivery Mechanical Ventilator Mechanical Ventilator O2 Flow Rate 30.00 30.00 FiO2 30 05/19/17 05/19/17 05/19/17 05/19/17 03:00 04:00 04:00 05:00 Pulse 78 75 75 Resp 19 16 16 B/P (MAP) 150/63 144/60 143/60 Pulse Ox 100 100 100 100 O2 Delivery Mechanical Ventilator Mechanical Ventilator Mechanical Ventilator Mechanical Ventilator O2 Flow Rate 30.00 30.00 30.00 FiO2 30 05/19/17 05/19/17 05/19/17 05/19/17 06:00 07:00 07:00 07:12 Pulse 76 84 81 79 Resp 17 23 20 B/P (MAP) 146/62 150/62 Pulse Ox 100 100 100 O2 Delivery Mechanical Ventilator Mechanical Ventilator O2 Flow Rate 30.00 30.00 FiO2 30 05/19/17 05/19/17 05/19/17 05/19/17 08:00 08:00 09:00 09:00 Temp 97.6 Pulse 79 80 Resp 18 18 B/P (MAP) 154/63 161/68 Pulse Ox 100 100 100 O2 Delivery Mechanical Ventilator Mechanical Ventilator Mechanical Ventilator O2 Flow Rate 30.00 30.00 FiO2 30 05/19/17 05/19/17 05/19/17 10:00 10:34 11:51 Pulse 80 69 82 Resp 19 20 22 B/P (MAP) 146/70 Pulse Ox 100 100 100 O2 Delivery Mechanical Ventilator O2 Flow Rate 30.00 FiO2 30 30 Intake and Output 05/19/17 00:00 Intake Total 840 ml Output Total 1350 ml Balance -510 ml Weight (Pounds): 196 Weight (Ounces): 0.0 Weight (Calculated Kilograms): 88.091987 Constitutional: AAO x 3, well-developed, other (status post-trach; on mech vent ; able to communicate) Respiratory: other (Fair bilateral air entry; coarse airway sounds but no rhonchi) Cardiovascular: regular rate-rhythm, tachycardia, S1 and S2, other Gastrointestional: other (Recent abdominal surgery, colostomy in place) Extremities: pedal edema, swelling (generalized), No clubbing, No cyanosis Neurologic/Psychiatric: no motor/sensory deficits, alert, grossly intact Skin: No rash on exposed areas Results/Procedures: Labs Laboratory Tests 05/18/17 13:20: White Blood Count 17.3H, Red Blood Count 3.70L, Hemoglobin 10.5L, Hematocrit 33L , Mean Corpuscular Volume 90, Mean Corpuscular Hemoglobin 28, Mean Corpuscular Hemoglobin Concent 32, Red Cell Distribution Width 14.8H, Platelet Count 526H, Mean Platelet Volume 10.0, Neutrophils (%) (Auto) 90H, Lymphocytes (%) (Auto) 4L , Monocytes (%) (Auto) 6, Eosinophils (%) (Auto) 0, Basophils (%) (Auto) 0, Neutrophils # (Auto) 15.6H, Lymphocytes # (Auto) 0.7L, Monocytes # (Auto) 1.0, Eosinophils # (Auto) 0.0, Basophils # (Auto) 0.1, Neutrophils % (Manual) 89, Lymphocytes % (Manual) 4, Monocytes % (Manual) 5, Reactive Lymphocytes 2, Toxic Granulation 3+, Hypochromasia MODERATE, Poikilocytosis SLIGHT, Anisocytosis SLIGHT, Sodium Level 143, Potassium Level 3.6, Chloride Level 103, Carbon Dioxide Level 30, Anion Gap 10, Blood Urea Nitrogen 43H, Creatinine 0.84, Estimat Glomerular Filtration Rate > 60, BUN/Creatinine Ratio 51H, Glucose Level 178H, Calcium Level 8.5, Phosphorus Level 4.6, Magnesium Level 1.8 05/18/17 18:22: Glucometer 128H 05/19/17 05:50: White Blood Count 11.4H, Red Blood Count 3.23L, Hemoglobin 9.1L, Hematocrit 30L , Mean Corpuscular Volume 92, Mean Corpuscular Hemoglobin 28, Mean Corpuscular Hemoglobin Concent 31L, Red Cell Distribution Width 14.8H, Platelet Count 483H, Mean Platelet Volume 10.2, Neutrophils (%) (Auto) 83H, Lymphocytes (%) (Auto) 8L , Monocytes (%) (Auto) 7, Eosinophils (%) (Auto) 2, Basophils (%) (Auto) 1, Neutrophils # (Auto) 9.5H, Lymphocytes # (Auto) 0.9L, Monocytes # (Auto) 0.8, Eosinophils # (Auto) 0.2, Basophils # (Auto) 0.1, Sodium Level 142, Potassium Level 3.2L, Chloride Level 103, Carbon Dioxide Level 29, Anion Gap 10, Blood Urea Nitrogen 45H, Creatinine 0.78, Estimat Glomerular Filtration Rate > 60, BUN /Creatinine Ratio 58H, Glucose Level 131H, Calcium Level 8.5, Phosphorus Level 4.4, Magnesium Level 2.0, Albumin 1.9L 05/19/17 07:45: Prealbumin 14.2L Microbiology 04/30/17 Blood Culture - Final, Complete No growth 05/04/17 Gram Stain - Final, Complete 05/04/17 Sputum Culture - Final, Complete Acinetobacter Baumanii See Comments Presumptive Ivy Albicans 05/12/17 Gram Stain - Final, Complete 05/12/17 Anaerobic Culture - Final, Complete No growth 05/12/17 Wound Culture - Final, Complete Staph, Coag Neg (Long Term Care Social Worker) See Comments A/P: Assessment/Dx: Large bowel perforation, fecal peritonitis, severe septic shock. Nonsustained VT, PAF, Acute diastolic heart failure - resolved Plan: Large bowel perforation status post emergent abdominal surgery by Dr. Ng earlier in the hospital course. Peritonitis/severe septic shock: On broad-spectrum antibiotics. Significant improvement of sepsis. Status post trach, on SIMV mode on Ventilator (Critical Care myopathy). Nonsustained VT: infrequent PVCs. continue metoprolol. Continue aggressive repletion of electrolytes. on propafenone. PAF: currently in sinus rhythm. acute diastolic heart failure - resolved. mild bilateral edema noted. lasix PRN. Thank you for your consultation. Please call me if you have any questions. Jung Foote MD, FACP, FACC, FSCAI, FHRS, CCDS Interventional Cardiology Cardiac Electrophysiology Vascular Medicine and Endovascular Interventions Darshana FOOTE MD May 19, 2017 12:54 pm
--- NOTE | 2017-05-19 13:42 | Progress Note-Hospitalist ---
Standard Progress Note Progress Notes/Assess & Plan Date Seen 05/19/17 Time Seen by Provider: 13:42 Diagnosis Assessment: Acute peritonitis from colonic perforation with impacted stool with history of severe chronic constipation status post diverting colostomy POD # 1 Aspiration of bowel contents during intubation for surgery with ventilator- dependent respiratory failure currently History of SVT/AF status post attempted ablation an unsuccessful maintained on Rythmol by Dr. Ku cardiology [place] History of hypertension Hypothyroidism Leukopenia due to sepsis Hypokalemia Assess & Plan/Chief Complaint The patient's seems to be accelerating her improvement. She is afebrile. She has been sitting in the chair for about 4-1/2 hours at the time of my visit. Vital signs are stable. Physical exam: She is interactive and smiles. Lungs are clear to auscultation. CV is regular without murmur. Abdomen shows stool in the colostomy bag. Extremities show 1+ edema of the dorsal hands and feet which is an improvement. Impression: Continuing improvement from acute peritonitis and septic shock. Plan: Continue present measures. Increase expectations for physical therapy and nutrition Labs Laboratory Tests 05/18/17 04:50 05/18/17 13:20 05/19/17 05:50 SAM FULTON MD May 19, 2017 13:42
[2017-05-19] MEDS: ENOXAPARIN 40 MG/0.4 ML (LOVENOX) SYR SC SCH (13:48)
[2017-05-19] MEDS: ALBUMIN 25% 25 GM/100 ML 50 ML IV SCH ×2 (13:48→22:09)
[2017-05-19] MEDS: LIDOCAINE PATCH REMOVAL TP SCH (20:44)
[2017-05-20] VITALS (33 sets, daily range): BP systolic 123–209; BP diastolic 53–87
[2017-05-20] MEDS: RT-ALBUTEROL/IPRATROPIUM 3 ML (DUONEB) VIAL INH SCH ×6 (02:47→21:22)
[2017-05-20 04:08] LABS: BASOPHILS # (AUTO) 0.1 10^3/uL (0.0-0.1); BASOPHILS % (AUTO) 1 % (0-10); EOSINOPHILS # (AUTO) 0.2 10^3/uL (0.0-0.3); EOSINOPHILS % (AUTO) 2 % (0-10); LYMPHOCYTES # (AUTO) 0.9 X 10^3 (1.0-4.0); LYMPHOCYTES % (AUTO) 9 % (12-44); MEAN CORPUSCULAR HEMOGLOBIN 28 PG (25-34); MEAN CORPUSCULAR HGB CONC 31 G/DL (32-36); MEAN CORPUSCULAR VOLUME 92 FL (80-99); MEAN PLATELET VOLUME 9.9 FL (7.4-10.4); MONOCYTES # (AUTO) 0.7 X 10^3 (0.0-1.0); MONOCYTES % (AUTO) 7 % (0-12); NEUTROPHILS # (AUTO) 8.4 X 10^3 (1.8-7.8); NEUTROPHILS % (AUTO) 83 % (42-75); PLATELET COUNT 469 10^3/uL (130-400); RED CELL DISTRIBUTION WIDTH 14.7 % (10.0-14.5); WHITE BLOOD COUNT 10.2 10^3/uL (4.3-11.0)
[2017-05-20 04:15] LABS: ABG BASE EXCESS 6.5 MMOL/L (-2.5-2.5); ABG HCO3 31 MMOL/L (23-27); ABG OXYGEN SATURATION 98 % (94-100); ABG PCO2 44 MMHG (35-45); ABG PH 7.45 (7.37-7.43); ABG PO2 95 MMHG (79-93); ABG TCO2 32.1 MMOL/L (21.0-31.0); ALLENS TEST POSITIVE; PATIENT TEMP 97.4
[2017-05-20 04:26] LABS: ANION GAP 13 MMOL/L (5-14); BLOOD UREA NITROGEN 47 MG/DL (7-18); BUN/CREATININE RATIO 59 (0-20); CALCIUM 8.6 MG/DL (8.5-10.1); CARBON DIOXIDE 27 MMOL/L (21-32); CHLORIDE 104 MMOL/L (98-107); GFR ESTIMATED > 60; GLUCOSE 120 MG/DL (70-105); HEMOLYSIS 5 (-100-29); ICTERUS 0.5 (-100-1.9); LIPEMIA 1 (-100-49); MAGNESIUM 1.9 MG/DL (1.8-2.4); POTASSIUM 3.3 MMOL/L (3.6-5.0); SODIUM 144 MMOL/L (135-145)
[2017-05-20] MEDS: POTASSIUM CL 10MEQ/50ML IVPB 50 ML IV SCH ×5 (05:05→08:51)
[2017-05-20] MEDS: MAGNESIUM 1 GM/100 ML IVPB 100 ML IV SCH (05:05)
[2017-05-20] MEDS: KCL 20 MEQ TAB (K-DUR) PO SCH (05:06)
[2017-05-20] MEDS: ALBUMIN 25% 25 GM/100 ML 50 ML IV SCH (05:35)
[2017-05-20] MEDS: FUROSEMIDE 40 MG/4 ML INJ (LASIX) IVP SCH (05:36)
--- NOTE | 2017-05-20 06:51 | Pulmonary Progress Note ---
Subjective Subjective/Events-last exam No complications noted. Exam Exam Vital Signs Date Time Temp Pulse Resp B/P (MAP) Pulse Ox O2 Delivery O2 Flow Rate FiO2 05/20/17 06:00 81 19 156/62 100 Mechanical Ventilator 30.00 05/20/17 05:00 73 14 165/60 100 Mechanical Ventilator 30.00 05/20/17 04:28 97.4 05/20/17 04:10 67 17 100 30 05/20/17 04:00 69 14 137/65 100 Mechanical Ventilator 30.00 05/20/17 04:00 100 Mechanical Ventilator 30 05/20/17 03:00 71 18 131/58 100 Mechanical Ventilator 30.00 05/20/17 02:47 70 17 100 30 05/20/17 02:00 76 15 152/63 100 Mechanical Ventilator 30.00 05/20/17 01:00 69 18 123/55 100 Mechanical Ventilator 30.00 05/20/17 01:00 69 05/20/17 00:30 72 20 100 30 05/20/17 00:00 100 Mechanical Ventilator 30 05/20/17 00:00 74 18 129/55 100 Mechanical Ventilator 30.00 05/19/17 23:00 73 17 123/54 100 Mechanical Ventilator 30.00 05/19/17 22:01 76 16 100 30 05/19/17 22:00 79 18 141/60 100 Mechanical Ventilator 30.00 05/19/17 21:00 92 21 160/67 100 Mechanical Ventilator 30.00 05/19/17 20:10 92 23 100 30 05/19/17 20:00 84 11 162/70 100 Mechanical Ventilator 30.00 05/19/17 20:00 100 Mechanical Ventilator 30 05/19/17 19:25 97.3 Mechanical Ventilator 30.00 05/19/17 19:00 86 20 162/67 100 Mechanical Ventilator 30.00 05/19/17 19:00 86 05/19/17 18:53 91 20 100 30 05/19/17 18:00 90 18 154/68 100 Mechanical Ventilator 30.00 05/19/17 17:00 89 18 154/64 100 Mechanical Ventilator 30.00 05/19/17 16:10 87 18 100 30 05/19/17 16:00 100 Mechanical Ventilator 30 05/19/17 16:00 79 17 155/67 100 Mechanical Ventilator 30.00 05/19/17 15:00 82 18 164/72 100 Mechanical Ventilator 30.00 05/19/17 14:28 85 22 100 30 05/19/17 14:12 84 24 100 30 05/19/17 14:00 84 30 175/73 100 Mechanical Ventilator 30.00 05/19/17 13:00 83 05/19/17 13:00 82 24 171/74 100 Mechanical Ventilator 30.00 05/19/17 12:00 80 22 166/70 100 Mechanical Ventilator 30.00 05/19/17 12:00 100 Mechanical Ventilator 30 05/19/17 12:00 96.2 05/19/17 11:51 82 22 100 30 05/19/17 11:00 77 21 152/69 100 Mechanical Ventilator 30.00 05/19/17 10:34 69 20 100 30 05/19/17 10:00 80 19 146/70 100 Mechanical Ventilator 30.00 05/19/17 09:00 80 18 161/68 100 Mechanical Ventilator 30.00 05/19/17 09:00 97.6 05/19/17 08:00 100 Mechanical Ventilator 30 05/19/17 08:00 79 18 154/63 100 Mechanical Ventilator 30.00 05/19/17 07:12 79 20 100 30 05/19/17 07:00 81 05/19/17 07:00 84 23 150/62 100 Mechanical Ventilator 30.00 I & O 05/20/17 07:00 Intake Total 3164 ml Output Total 2500 ml Balance 664 ml General Appearance: No Apparent Distress (pt is awake/alert and comfortable on vent), Chronically ill Neck: Full Range of Motion, Normal Inspection Respiratory: No Accessory Muscle Use, No Respiratory Distress, Decreased Breath Sounds, Other (scattered rhonchi without wheezing. Breath sounds are equal bilaterally) Cardiovascular: Regular Rate, Rhythm, No Edema, No Gallop, No JVD, Normal Peripheral Pulses, Other (1 to 2/6 systolic ejection murmur heard at the left lower sternal border.) Capillary Refill: Less Than 3 Seconds Gastrointestinal: soft, tenderness Extremity: Other Neurologic/Psychiatric: Alert Skin: Normal Color, Warm/Dry, Pallor Lymphatic: No Adenopathy Results Lab Laboratory Tests 05/18/17 13:20 05/19/17 05:50 05/20/17 04:00 Assessment/Plan Assessment/Plan Acute respiratory failure since postop secondary to aspiration of bowel contents -- sputum is growing MDR Acinetobacter - Continue weaning trials. Will trial patient on T- Tube daily as tolerated then back to SIMV - continue Precedex at night. D/C during daytime per family request -s/p tracheostomy - -Copious amounts of sputum with mucous plugging -Will plan for bronchoscopy tomorrow morning -Abx are being d/c'd pt still has copious sputum - will d/w pharmacy and repeat sputum cultures. Anxiety -Start Risperdal 0.25mg BID -please no Ativan or Xanax Acute respiratory failure is now becoming chronic respiratory failure -up to chair daily as tolerated - Pt is tolerating up to chair well Pulmonary edema secondary to IVF -Pt is getting Lasix 40mg daily - 6am daily Atelectasis -monitor -increase activity as tolerated Abdominal abscess -Pain control Anemia - monitor Hypernatremia/hyperchloremia - Secondary to saline - -IVF are hep locked fee water NG flush to Q8 100cc Malnutrition/debility/weakness -Pt is tolerating TF well -Pt is getting IV Synthroid -repeat TSH HX of SVT/AF -LABS AND CXR reviewed 233 30 min spent with patient RN, Rt explaining pt care plan. Clinical Quality Measures DVT/VTE Risk/Contraindication: Risk Factor Score Per Nursin RFS Level Per Nursing on Admit: 4+=Very High CHRISS ARTIS DO May 20, 2017 06:51
--- NOTE | 2017-05-20 07:30 | Diagnostic Imaging Report ---
INDICATION: Respiratory distress. Comparison with 05/18/2017. FINDINGS: The Dobbhoff tube remains present unchanged. Right PICC line unchanged. There continues to be obscuration of the left hemidiaphragm with left basilar atelectasis and effusion. The right lung is well-aerated with minimal density noted along the right lateral lung base probably representing small amount of effusion. There continues to be prominence of pulmonary vasculature. IMPRESSION: Little overall change since previous exam. Continued atelectasis with basilar effusions and interstitial infiltrates. Dictated by: Dictated on workstation # [id number]
[2017-05-20] MEDS: LEVOTHYROXINE 100 MCG INJ (SYNTHROID) VIAL IV SCH (08:16)
[2017-05-20] MEDS: PANTOPRAZOLE 40 MG/10 ML (PROTONIX) VIAL IVP SCH (08:16)
[2017-05-20] MEDS: FLUCONAZOLE 100 MG/50 ML 50 ML IV SCH (08:16)
[2017-05-20] MEDS: CARVEDILOL 6.25 MG (COREG) TAB PO SCH ×2 (08:16→20:08)
[2017-05-20] MEDS: DOCUSATE SODIUM 100 MG (COLACE) CAP PO SCH ×3 (08:16→20:08)
[2017-05-20] MEDS: LIDOCAINE (LIDODERM) 5% PATCH TOP SCH (08:17)
[2017-05-20] MEDS: risperiDONE 0.25 MG (RisperDAL) TAB PO SCH ×2 (08:17→20:09)
[2017-05-20] MEDS: PROPAFENONE 225 MG TAB PO SCH ×3 (08:17→20:09)
[2017-05-20] MEDS: DAKIN'S 1/4 STRENGTH (0.125%) 473 ML BTL TOP SCH (08:17)
--- NOTE | 2017-05-20 09:46 | Physical Therapy Daily Note ---
PT Daily Note-Current Subjective Patient in bed pre tx, agrees to PT, no complaints of pain. Patient is very anxious about getting up but agrees. Appearance Patient in recliner post tx with nursing and respiratory therapy attending to her. Mental Status Patient Orientation: Unable to Assess Attachments: Reynolds Catheter, IV many attachments Transfers Functional [place] Measure 0=Not Assessed/NA 4=Minimal Assistance 1=Total Assistance 5=Supervision or Setup 2=Maximal Assistance 6=Modified [place] 3=Moderate Assistance 7=Complete IndependenceIRFPAI Quality Coding Scale 6 Independent with activity with or without an assistive device 5 Patient requires set up or clean up by helper. Patient completes activity by themselves 4 Supervision or touching assist (CGA). Saxon provide cues , steadying assist 3 The helper provides less than half the effort to complete the activity 2 The helper provides more than half the effort to complete the activity 1 Dependent. The helper does all the effort to complete an activity 7 Patient refused to complete or attempt activity 9 The patient did not perform the activity before the current illness or injury 88 Not attempted due to Medical conditions or safety concerns Transfers (B, C, W/C) (FIM): 1 Scootin Rollin Bed to/from Chair: 1 stephanie lift transfer from bed to chair Exercises Seated Therapy Exercises: Ankle pumps, Long arc quads, Hip abd/add Seated Reps: 15 Treatments transfers, bed mobility, functional strengthening Assessment Current Status: Poor Progress no change in mobility, patient has a lot of edema in bilateral lower extremities , very weak legs 2/5 gross bilaterally PT Care Home Goals Lead Slot Technician Goals PT Care Home Goals Time Frame: May 13, 2017 Transfers (B,C,W/C) (FIM): 4 Gait (FIM): 2 Gait distance (FIM): 1=up to 49 ft Gait Assistive Device: FWW PT Plan Problem List Problem List: Activity Tolerance, Functional Strength, Safety, Balance, Gait, Transfer, Bed Mobility, ROM Treatment/Plan Treatment Plan: Continue Plan of Care Treatment Plan: Bed Mobility, Education, Functional Activity Carlos A, Functional Strength, Gait, Safety, Therapeutic Exercise, Transfers Treatment Duration: May 13, 2017 Visits Per Week: 5-11 Safety Risks/Education Patient Education: Transfer Techniques, Correct Positioning, Safety Issues Teaching Recipient: Patient Teaching Methods: Demonstration, Discussion Response to Teaching: Reinforcement Needed Time/GCodes Time In: 910 Time Out: 945 Total Billed Treatment Time: 35 Total Billed Treatment 1 visit EX 15' FA 20' STEPHANE KC PT May 20, 2017 09:46
--- NOTE | 2017-05-20 10:42 | Progress Note-Hospitalist ---
Progress Note HPI/CC on Admission CC: Management of critical illness with acute peritonitis due to bowel perforation with aspiration of bowel contents during intubation HPI: This is a 61-year-old white female clinic patient of Dr. 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 Apparently she was wanting to go to [place] and used to suppository like she usually does because she is struggle with constipation since cardiac meds have been initiated several years ago but at noon time she started having a lot of pain to the extent that required emergency room evaluation. CT scan was obtained found to have bowel perforation with peritonitis and during intubation for surgery she aspirated bowel contents so she now has a diverting colostomy but the pictures during surgery appeared to have a multitude of impacted bowel contents within the abdominal cavity. I did speak with Dr. Horvath her primary care provider and employer and it appears that she is not up-to-date on her colonoscopy and has not had one before and she has had significant constipation issues for the past several years so I hypothesized that impacted stool has been an ongoing problem for her probably stretching the tissue over a long period time and finally rupturing causing this critical illness. She is requiring high doses of Levophed and closely monitoring due to severe sepsis and multisystem organ failure. She has received aggressive IV fluids per protocol and currently monitor closely due to history of arrhythmia maintained on Rythmol as an outpatient. She sees Dr. Ku cardiology at [place] after she failed undergoing ablation up in [place] years ago. I have consulted cardiology and director of rehabilitation and wellness and eICU to facilitate management of this critically ill patient. 05/09/17 patient became quite anxious and hypertensive during pressure support trial apparently rather abruptly occurred and nursing staff. O2 saturations dropped to the 70s with altered mental status. There have been no change in medications associated with this. She was taken off of pressure support and placed back on mechanical ventilation. She is ventilating easily time of my arrival eyes were open pupils were 5 mm symmetrical and reactive but the patient was not responsive. She was moving all extremities. 05/10/17 patient is back to baseline state of anxiety and back to baseline levels of CO2 retention. She is resting comfortably upon my arrival and appears to be in no distress although when asked she always volunteers that she is having significant pain. Physical exam findings are unchanged from yesterday chest x-ray and labs are stableexcept for improved ABG levels compared to yesterday's distress levels. Progress Notes/Assess & Plan Date Seen 05/20/17 Time Seen by Provider: 09:30 Admission Dx/Process Assessment: Acute peritonitis from colonic perforation with impacted stool with history of severe chronic constipation status post diverting colostomy POD # 1 Aspiration of bowel contents during intubation for surgery with ventilator- dependent respiratory failure currently History of SVT/AF status post attempted ablation an unsuccessful maintained on Rythmol by Dr. Ku cardiology [place] History of hypertension Hypothyroidism Leukopenia due to sepsis Hypokalemia Diagonsis/Assessment & Plan Patient Interview: Pt was sitting up in a chair upon interview Labs were discussed with the pt and they look good today. Pt states that things have been rough. Pt states that her ear hurts Physical exam stable Patient up in chair and doing remarkably well again today Still has trach but then later is turned off and breathing on her own Working with her hands and slow progress but motivated Reports pain continues but improved No fever, vital signs stable, pleasant, much improved, up in chair Regular rate and rhythm, coarse breath sounds all pinedo No edema change from 2+ Laboratory Tests 05/20/17 04:00 Assessment: Acute peritonitis from colonic perforation with impacted stool with long history of severe chronic constipation status post diverting colostomy with septic shock requiring pressors and aggressive IVF management now improved and more stable but but unable to extubate as tentatively planned but will begin the wean process after trach placed likely will need [facility] or other long- term facility Aspiration of bowel contents during intubation for surgery with ventilator- dependent respiratory failure currently maintained on abx History of SVT status post attempted ablation and unsuccessful maintained on Rythmol by Dr. Ku cardiology [place] consulted Dr Nettles and his recs are appreciated and had an episode of AF last week resolved with suctioning History of hypertension Hypothyroidism Leukopenia due to sepsis now leukocytosis Hypokalemia replacing Metabolic acidosis due to sepsis Thrombocytopenia due to sepsis improved Anemia likely affiliated due to phlebotomy s/p 2 units of blood last week Plan: Monitor labs Maintain colostomy SCDs Stable but guarded Morphine dosage as needed Monitor closely Long recovery expected Scribed by Teresita Hathaway under the direct supervision of Dr. Rome. DAVY ROME DO May 20, 2017 10:42
--- NOTE | 2017-05-20 11:09 | Speech Therapy Daily Note ---
Speech Daily Progress Note Subjective Date Seen by Provider: May 20, 2017 Time Seen by Provider: 10:00 The patient was seated upright in recliner, feet elevated upon entrance. The patient's was present at bedside for the treatment session. The patient denied pain and was agreeable to therapy on this date. Objective - Prior to the initiation of dysphagia strengthening exercises, extensive oral care with oral suctioning was provided by the clinician. The importance of oral care was discussed for a second time on this date to reduce the transfer of oral bacteria to the lungs should aspiration of secretions occur. - Dysphagia Strengthening Exercises: Base of tongue retraction and pharyngeal contractions exercises were introduced, demonstrated, and discussed on this date. Lingual protrusion and effortful swallow were recommended at this time by the clinician. The patient was able to demonstrate the exercises with high accuracy with moderate clinician cueing (direct modeling). The patient completed five repetitions of each exercise. The clinician continues to recommend a video swallow prior to initiation of an oral diet or continued oral bolus trials. This information was shared again on this date with the patient's RN. Assessment Assessment Current Status: Fair Progress Treatment Plan Continue Plan of Care Speech Short Term Goals Short Term Goals Short Term Goals 1. The patient will demonstrate pharyngeal, base of tongue, laryngeal elevation , and labial strengthening exercises with 80% accuracy and mild clinician verbal cueing. 2. The patient will complete adequate oral care with 90% accuracy, independently. Time Frame-STG: Two Weeks Speech Care Home Goals Manager Psychology Goals 1. The patient will tolerate bolus trials of the least restrictive consistency without signs/symptoms of aspiration. Time Frame: Four Weeks Speech-Plan Treatment Plan Speech Therapy Treatment Plan: Continue Plan of Care Continue skilled speech pathology to target dysphagia exercises. Treatment Duration: Jun 15, 2017 # of days/week Three Visits Per Week: Three Minutes/Day (M-F): 15 Rehab Potential: Fair Safety Risks/Education Teaching Recipient: Patient Teaching Methods: Demonstration, Discussion Response to Teaching: Return Demonstration, Reinforcement Needed Education Topics Provided: Dysphagia Exercises Time Speech Therapy Time In: 10:00 Speech Therapy Time Out: 10:20 Total Billed Time: 20 Billed Treatment Time GLORIA Magallon ELIZABELENARD LOPEZ May 20, 2017 11:09
--- NOTE | 2017-05-20 11:10 | Occ Therapy Progress Note ---
Therapy Progress Note Pt continues to make slow progress toward goals and is not yet off the ventilator and out of ICU. Will continue with same treatment plan and goals, extending plan for another two weeks to June 01, 2017. WENDY WATKINS OT May 20, 2017 11:10
--- NOTE | 2017-05-20 11:51 | Occupational Ther Daily Note ---
OT Current Status-Daily Note Mental Status/Objective Functional [place] Measure 0=Not Assessed/NA 4=Minimal Assistance 1=Total Assistance 5=Supervision or Setup 2=Maximal Assistance 6=Modified [place] 3=Moderate Assistance 7=Complete [place] Other Treatment Bilateral UE demonstrate swelling in hands, and up through upper arm. OT provides gentle retrograde massage to decrease swelling. Pt able to answer questions with nod of head or mouthing words. OT applied gentle PROM to bilateral shoulders, elbows, wrists, and fingers. Pt is demonstrating active movement finger flexors/extension, tricep extension, pronation/supination and shldr adduction. Muscle tapping for muscle active movement in L/R bicep. Pt demonstrates slight subluxation in L shldr. Pt is able to shrug shldrs, OT recommends to complete 5 reps multiple times throughout the day. Family in room and educated about UE exercises. Family verbalizes understanding. Pt. awake and alert throughout treatment. Small skin tear on R upper back of arm, reported to nrsg. All needs met in room. Education OT Patient Education: Instructions to caregiver Teaching Recipient: Family Teaching Methods: Demonstration Response to Teaching: Verbalize Understanding OT Short Term Goals Short Term Goals 1=Demonstrate adherence to instructed precautions during ADL tasks. 2=Patient will verbalize/demonstrate understanding of assistive devices/ modifications for ADL. 3=Patient will improve strength/tolerance for activity to enable patient to perform ADL's. OT Longterm Goals Security Support Analyst Goals Time Frame: May 18, 2017 - Decrease edema to allow functional use bilat UEs. - Increase functional use UEs - Increase participation in basic self care as pt status changes Additional Goals: 3-ImproveStrength/Carlos A 1=Demonstrate adherence to instructed precautions during ADL tasks. 2=Patient will verbalize/demonstrate understanding of assistive devices/ modifications for ADL. 3=Patient will improve strength/tolerance for activity to enable patient to perform ADL's. OT Education/Plan Problem List/Assessment Pt would benefit from skilled OT to help increase functional use of bilat UEs and independence in basic self care to decrease caregiver burden and assist with discharge planning Discharge Recommendations Plan/Recommendations: Continue POC Treatment Plan/Plan of Care Patient would benefit from OT for education, treatment and training to promote independence in ADL's, mobility, safety and/or upper extremity function for ADL' s. Plan of Care: ADL Retraining (when appropriate), Caregiver Training, Functional Mobility, UE Funct Exercise/Act, UE Neuromus Re-Ed/Coord, W/C Management Training Treatment Duration: May 18, 2017 Visits Per Week: 5 Agreement: No (pt unable to participate in decision making. No family present) Rehab Potential: Fair Time/GCodes Start Time: 11:00 Stop Time: 11:40 Total Time Billed (hr/min): 40 Billed Treatment Time 1 visit-EX 2 (38 min) FA 1 (22 min) LILY INMAN May 20, 2017 11:51
[2017-05-20] MEDS: morphine INJ 4 MG/ML 1 ML (VIAL/SYRINGE) IVP PRN ×2 (13:28→15:32)
--- NOTE | 2017-05-20 13:33 | Cardiology Progress Note ---
Cardiology SOAP Progress Note Subjective: Stable cardiac-richards Objective: I&O/Vital Signs Vital Sign - Last 12Hours 05/20/17 05/20/17 05/20/17 05/20/17 06:00 06:54 07:00 08:00 Pulse 81 84 90 Resp 19 20 B/P (MAP) 156/62 Pulse Ox 100 100 100 O2 Delivery Mechanical Ventilator Mechanical Ventilator O2 Flow Rate 30.00 FiO2 30 30 05/20/17 05/20/17 05/20/17 05/20/17 08:00 09:15 10:28 11:05 Temp 99.1 Pulse 89 98 Resp 26 27 B/P (MAP) Pulse Ox 100 100 100 O2 Delivery Mechanical Ventilator Vapotherm O2 Flow Rate 30.00 30.00 FiO2 30 40 30 05/20/17 05/20/17 05/20/17 05/20/17 12:00 12:00 13:00 13:53 Temp 98.9 Pulse 87 82 B/P (MAP) Pulse Ox 100 100 O2 Delivery Mechanical Ventilator Mechanical Ventilator O2 Flow Rate 30.00 FiO2 30 30 05/20/17 05/20/17 05/20/17 05/20/17 14:07 15:25 16:00 16:00 Temp 97.4 Pulse 87 122 Resp 20 30 B/P (MAP) Pulse Ox 100 100 100 O2 Delivery Mechanical Ventilator Mechanical Ventilator O2 Flow Rate 30.00 FiO2 30 30 30 Intake and Output 05/20/17 00:00 Intake Total 2300 ml Output Total 1450 ml Balance 850 ml Weight (Pounds): 192 Weight (Ounces): 5.6 Weight (Calculated Kilograms): 87.016147 Constitutional: AAO x 3, well-developed, other (status post-trach; on mech vent ; able to communicate) Respiratory: other (Fair bilateral air entry; coarse airway sounds but no rhonchi) Cardiovascular: regular rate-rhythm, tachycardia, S1 and S2, other Gastrointestional: other (Recent abdominal surgery, colostomy in place) Extremities: pedal edema, swelling (generalized), No clubbing, No cyanosis Neurologic/Psychiatric: no motor/sensory deficits, alert, grossly intact Skin: No rash on exposed areas Results/Procedures: Labs Laboratory Tests 05/19/17 17:55: Glucometer 133H 05/20/17 04:00: White Blood Count 10.2, Red Blood Count 3.10L, Hemoglobin 8.8L, Hematocrit 29L, Mean Corpuscular Volume 92, Mean Corpuscular Hemoglobin 28, Mean Corpuscular Hemoglobin Concent 31L, Red Cell Distribution Width 14.7H, Platelet Count 469H, Mean Platelet Volume 9.9, Neutrophils (%) (Auto) 83H, Lymphocytes (%) (Auto) 9L , Monocytes (%) (Auto) 7, Eosinophils (%) (Auto) 2, Basophils (%) (Auto) 1, Neutrophils # (Auto) 8.4H, Lymphocytes # (Auto) 0.9L, Monocytes # (Auto) 0.7, Eosinophils # (Auto) 0.2, Basophils # (Auto) 0.1, Sodium Level 144, Potassium Level 3.3L, Chloride Level 104, Carbon Dioxide Level 27, Anion Gap 13, Blood Urea Nitrogen 47H, Creatinine 0.80, Estimat Glomerular Filtration Rate > 60, BUN /Creatinine Ratio 59H, Glucose Level 120H, Calcium Level 8.6, Phosphorus Level 4.0, Magnesium Level 1.9 05/20/17 04:07: Blood Gas Puncture Site RIGHT RADIAL, Blood Gas Patient Temperature 97.4, Arterial Blood pH 7.45H, Arterial Blood Partial Pressure CO2 44, Arterial Blood Partial Pressure O2 95H, Arterial Blood HCO3 31H, Arterial Blood Total CO2 32.1H , Arterial Blood Oxygen Saturation 98, Arterial Blood Base Excess 6.5H, Brannon Test POSITIVE, Blood Gas Ventilator Setting YES, Blood Gas Inspired Oxygen 30% Microbiology 04/30/17 Blood Culture - Final, Complete No growth 05/04/17 Gram Stain - Final, Complete 05/04/17 Sputum Culture - Final, Complete Acinetobacter Baumanii See Comments Presumptive Ivy Albicans 05/12/17 Gram Stain - Final, Complete 05/12/17 Anaerobic Culture - Final, Complete No growth 05/12/17 Wound Culture - Final, Complete Staph, Coag Neg (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 Nonsustained VT, PAF, Acute diastolic heart failure - resolved Plan: Large bowel perforation status post emergent abdominal surgery by Dr. Ng earlier in the hospital course. Peritonitis/severe septic shock: On broad-spectrum antibiotics. Significant improvement of sepsis. Status post trach, on SIMV mode on Ventilator (Critical Care myopathy). Nonsustained VT: infrequent PVCs. On propafenone and metoprolol. PAF: currently in sinus rhythm. Thank you for your consultation. Please call me if you have any questions. Jung Foote MD, FACP, FACC, FSCAI, FHRS, CCDS Interventional Cardiology Cardiac Electrophysiology Vascular Medicine and Endovascular Interventions Darshana FOOTE MD May 20, 2017 13:33
--- NOTE | 2017-05-20 13:56 | Physical Therapy Daily Note ---
PT Daily Note-Current Subjective Patient in recliner pre tx, agrees to PT, would like to get back to bed, has pain of 9/10 "all over" Appearance Patient in bed post tx with nurse and respiratory therapy attending to her. Mental Status Patient Orientation: Unable to Assess many attachments Transfers Functional [place] Measure 0=Not Assessed/NA 4=Minimal Assistance 1=Total Assistance 5=Supervision or Setup 2=Maximal Assistance 6=Modified [place] 3=Moderate Assistance 7=Complete IndependenceIRFPAI Quality Coding Scale 6 Independent with activity with or without an assistive device 5 Patient requires set up or clean up by helper. Patient completes activity by themselves 4 Supervision or touching assist (CGA). [place] provide cues , steadying assist 3 The helper provides less than half the effort to complete the activity 2 The helper provides more than half the effort to complete the activity 1 Dependent. The helper does all the effort to complete an activity 7 Patient refused to complete or attempt activity 9 The patient did not perform the activity before the current illness or injury 88 Not attempted due to Medical conditions or safety concerns Transfers (B, C, W/C) (FIM): 1 Scootin Rollin Bed to/from Chair: 1 stephanie lift to the bed from the chair Treatments transfer from the chair to bed via stephanie lift Assessment Current Status: Poor Progress no change in mobility PT Cable Engineer Outside Plant Goals Cable Engineer Outside Plant Goals PT Cable Engineer Outside Plant Goals Time Frame: May 13, 2017 Transfers (B,C,W/C) (FIM): 4 Gait (FIM): 2 Gait distance (FIM): 1=up to 49 ft Gait Assistive Device: FWW PT Plan Problem List Problem List: Activity Tolerance, Functional Strength, Safety, Balance, Gait, Transfer, Bed Mobility Treatment/Plan Treatment Plan: Continue Plan of Care Treatment Plan: Bed Mobility, Education, Functional Activity Carlos A, Functional Strength, Gait, Safety, Therapeutic Exercise, Transfers Treatment Duration: May 13, 2017 Visits Per Week: 5-11 Safety Risks/Education Patient Education: Transfer Techniques, Correct Positioning, Safety Issues Teaching Recipient: Patient Teaching Methods: Demonstration, Discussion Response to Teaching: Reinforcement Needed Time/GCodes Time In: 1335 Time Out: 1350 Total Billed Treatment Time: 15 Total Billed Treatment 1 visit FA STEPHANE FRIAS PT May 20, 2017 13:56
[2017-05-20] MEDS: hydrALAZINE (APRESOLINE) 25 MG TAB PO SCH ×2 (14:06→21:27)
[2017-05-20] MEDS: ENOXAPARIN 40 MG/0.4 ML (LOVENOX) SYR SC SCH (14:06)
--- NOTE | 2017-05-20 15:42 | Progress Note-Standard ---
Standard Progress Note Progress Notes/Assess & Plan Date Seen by Provider: May 20, 2017 Time Seen by Provider: 15:42 Progress/Assessment & Plan 04/26/17:septic with severe leukopenia. Very poor urine output. On dual vasopressors. Sinus tachycardia. Outcome poor with expected mortality. Central venous pressure around 12. We'll continue to provide fluid resuscitation and maintain vasopressors for now. 04/27/17:continues to require vasopressor support. Urine output reasonable. Creatinine slightly elevated. Ventilation and oxygenation stable. Will place a wound VAC tomorrow. Continue supportive abdomen. Enteral nutrition in 24- 48 hours. DVT prophylaxis with low molecular weight heparin, renally adjusted dose 04/28/17:off the vasopressors. Renal function reasonable.NG output more than 1 L and therefore tube feeding will be delayed.electrolytes satisfactory.we'll continue current management. 04/29/17:Improving. Would facilitate diuresis before embarking on extubation. Intra-abdominal abscesses to be looked for by next week. L femoral arterial line satisfactory with no distal ischemia. Nutritional support in 24-48 hours. 04/30/17:slight change in her condition with decreased urine output and leukocytosis. Abdominal abscess in evolution very likely the culprit. More opacification of the right lung. We will try enteral feeding. Continue antibiotics 05/01/17 Diuresis in progress. Pressure mattress appropriate to prevent skin breakdown. Fascia intact. Tolerating tube feeds. Vent weaning over terrie next 24- 48 hours. HIT antibodies negative 05/04/17: Reintubated. Anasarca improved. Fascia intact. Intra-abdominal abscesses to be expected. CT scan in 48 hours. Tracheostomy discussed with the family and planned for this week 05/05/17:CONTINUES TO IMPROVE. pOOR MUSCLE STRENGTH. tRACHEOSTOMY IN [address] SCAN TOMORROW MORNING. 05/06/17:Intra-abdominal and pelvic abscesses drained percutaneously. Tracheostomy tomorrow. 05/08/17: Anxious and tearful, expected. Jejunal feeding in progress. Possible pseudomonas in cultures. Vent weaning initiated 05/11/17: Fluctuating temperature, possibly due to additional intra-abdominal abscesses. CT/drainage planned for tomorrow. Anasarca. Poor muscle strength 05/12/17: No major changes in her condition. Repeat CT scan ending. Vent weaning attempts in progress. Poor muscle strength. 05/13/17:improvements with weaning attempts. Patient is very upset about not being able to get the required pain medications due to changes and orders laced by Dr. Causey. Hemoglobin decreased to 7.5 and transfusion would be in order. Output from the radius drains very minimal and would therefore be removed soon. 05/14/17:continues to improve. Very minimal output from the initial set of drains placed a week ago. These will be removed soon.more awake. Physical therapy in progress. Weaning attempts to proceed 05/15/17:continues to improve. One more drain will be removed today. Physical and occupational therapy in progress. Abdominal wound granulating. 05/16/17:progressive improvement. Anxious to resume eating. Speech therapist requested to evaluate the risk of aspiration. Very minimal output from the drains, that would be removed in 24 hours. Long-term rehabilitation discussions initiated 05/17/17:continues to improve. Chest x-ray much clear.swallow evaluation in a.m. 05/18/17: Patient reports being fatigued but the respiratory parameters appear to be satisfactory. The last abdominal drain will be removed today. Continue vent weaning measures 05/20/17:profuse tracheal secretions requiring suctioning. Hygiene bronchoscopy planned for tomorrow. Hypokalemia, being addressed. Final Diagnosis fecal peritonitis. Ventilatory failure MACY TALAVERA MD May 20, 2017 3:42 pm
[2017-05-20] MEDS ORDERED: hydrALAZINE (APRESOLINE) 25 MG TAB PO NR (17:30)
[2017-05-20] MEDS: IBUPROFEN SUSP 100MG/5ML (MOTRIN) UDC PO PRN (19:45)
[2017-05-20] MEDS: oxyCODONE 5 MG/5 ML ORAL SOLN (roxiCODONE) 5 ML UDC PO PRN (19:45)
[2017-05-20] MEDS: DEXMEDETOMIDINE INJECTION 200 MCG in NS (IVPB) 50 ML IV SCH ×2 (20:09→23:29)
[2017-05-20] MEDS: LIDOCAINE PATCH REMOVAL TP SCH (21:14)
[2017-05-21] VITALS (34 sets, daily range): BP systolic 142–188; BP diastolic 56–86
[2017-05-21] MEDS: RT-ALBUTEROL/IPRATROPIUM 3 ML (DUONEB) VIAL INH SCH ×6 (01:54→21:21)
[2017-05-21 05:00] LABS: BASOPHILS % (AUTO) 0 % (0-10); EOSINOPHILS # (AUTO) 0.1 10^3/uL (0.0-0.3); EOSINOPHILS % (AUTO) 1 % (0-10); LYMPHOCYTES # (AUTO) 1.2 X 10^3 (1.0-4.0); LYMPHOCYTES % (AUTO) 12 % (12-44); MEAN CORPUSCULAR HEMOGLOBIN 28 PG (25-34); MEAN CORPUSCULAR HGB CONC 30 G/DL (32-36); MEAN CORPUSCULAR VOLUME 93 FL (80-99); MEAN PLATELET VOLUME 10.3 FL (7.4-10.4); MONOCYTES # (AUTO) 0.7 X 10^3 (0.0-1.0); MONOCYTES % (AUTO) 7 % (0-12); NEUTROPHILS # (AUTO) 7.7 X 10^3 (1.8-7.8); NEUTROPHILS % (AUTO) 80 % (42-75); PLATELET COUNT 503 10^3/uL (130-400); RED BLOOD COUNT 2.97 10^6/uL (4.35-5.85); RED CELL DISTRIBUTION WIDTH 14.9 % (10.0-14.5); WHITE BLOOD COUNT 9.7 10^3/uL (4.3-11.0)
[2017-05-21 05:14] LABS: ANION GAP 10 MMOL/L (5-14); BLOOD UREA NITROGEN 46 MG/DL (7-18); BUN/CREATININE RATIO 62 (0-20); CALCIUM 8.6 MG/DL (8.5-10.1); CARBON DIOXIDE 31 MMOL/L (21-32); CHLORIDE 104 MMOL/L (98-107); CREATININE SERUM 0.74 MG/DL (0.60-1.30); GFR ESTIMATED > 60; GLUCOSE 117 MG/DL (70-105); HEMOLYSIS 5 (-100-29); ICTERUS 0.4 (-100-1.9); LIPEMIA 12 (-100-49); MAGNESIUM 1.9 MG/DL (1.8-2.4); PHOSPHORUS 3.2 MG/DL (2.3-4.7); POTASSIUM 3.2 MMOL/L (3.6-5.0); SODIUM 145 MMOL/L (135-145)
[2017-05-21] MEDS: POTASSIUM CL 10MEQ/50ML IVPB 50 ML IV SCH ×6 (05:46→13:46)
[2017-05-21] MEDS: MAGNESIUM 1 GM/100 ML IVPB 100 ML IV SCH (05:46)
[2017-05-21] MEDS: KCL 20 MEQ TAB (K-DUR) PO SCH (05:48)
[2017-05-21] MEDS: FUROSEMIDE 40 MG/4 ML INJ (LASIX) IVP SCH (05:57)
[2017-05-21] MEDS ORDERED: POTASSIUM CL 10MEQ/50ML IVPB 50 ML IV SCH (06:00)
[2017-05-21] MEDS ORDERED: fentaNYL INJECTION 100 MCG/2 ML AMP ONE (06:28)
[2017-05-21] MEDS ORDERED: NALOXONE 2 MG/2 ML (NARCAN) SYR ONE (06:29)
[2017-05-21] MEDS ORDERED: MIDAZOLAM 5 MG/5 ML (VERSED) VIAL ONE ×2 (06:29→06:39)
[2017-05-21] MEDS ORDERED: proPOfol 200 MG/20 ML (DIPRIVAN) VIAL IV ONE (06:29)
[2017-05-21] MEDS ORDERED: MIDAZOLAM 2 MG/2 ML (VERSED) VIAL ONE (06:38)
[2017-05-21] MEDS: hydrALAZINE (APRESOLINE) 25 MG TAB PO SCH ×3 (07:08→21:46)
--- NOTE | 2017-05-21 07:13 | Pulmonary Progress Note ---
Subjective Time Seen by Provider: 06:00 Subjective/Events-last exam Pt did not tolerate being off vent yesterday. Then vent was not working right so RT had to change ventilator out. Exam Exam Vital Signs Date Time Temp Pulse Resp B/P (MAP) Pulse Ox O2 Delivery O2 Flow Rate FiO2 05/21/17 06:00 80 21 156/69 100 Mechanical Ventilator 30.00 05/21/17 05:20 79 23 100 30 05/21/17 05:00 79 23 150/59 100 Mechanical Ventilator 30.00 05/21/17 04:00 81 19 166/71 100 Mechanical Ventilator 30.00 05/21/17 03:59 100 Mechanical Ventilator 30 05/21/17 03:45 85 22 100 30 05/21/17 03:00 78 21 156/66 100 Mechanical Ventilator 30.00 05/21/17 02:00 73 19 161/72 100 Mechanical Ventilator 30.00 05/21/17 01:54 71 20 100 30 05/21/17 01:00 75 22 153/66 100 Mechanical Ventilator 30.00 05/21/17 01:00 76 05/21/17 00:06 97.7 Mechanical Ventilator 30.00 05/21/17 00:05 77 22 100 30 05/21/17 00:00 100 Mechanical Ventilator 30 05/21/17 00:00 77 21 164/74 100 Mechanical Ventilator 30.00 05/20/17 23:00 80 21 163/69 100 Mechanical Ventilator 30.00 05/20/17 22:00 81 20 167/71 100 Mechanical Ventilator 30.00 05/20/17 21:22 83 21 100 30 05/20/17 21:00 81 23 164/77 100 Mechanical Ventilator 30.00 05/20/17 20:10 98.2 Mechanical Ventilator 30.00 05/20/17 20:00 100 Mechanical Ventilator 30 05/20/17 20:00 93 23 195/87 100 Mechanical Ventilator 30.00 05/20/17 19:00 105 24 194/76 100 Mechanical Ventilator 30.00 05/20/17 19:00 106 05/20/17 18:48 98 26 100 30 05/20/17 18:00 93 191/80 100 Mechanical Ventilator 30.00 05/20/17 17:00 102 194/86 100 Mechanical Ventilator 30.00 05/20/17 16:00 97.4 Mechanical Ventilator 30.00 05/20/17 16:00 101 22 188/85 100 Mechanical Ventilator 30.00 05/20/17 16:00 100 Mechanical Ventilator 30 05/20/17 15:25 122 30 100 30 05/20/17 15:00 96 22 209/84 100 Mechanical Ventilator 30.00 05/20/17 14:07 87 20 100 30 05/20/17 14:00 85 175/75 100 Mechanical Ventilator 30.00 05/20/17 13:53 82 100 30 05/20/17 13:00 95 22 176/75 100 Mechanical Ventilator 30.00 05/20/17 13:00 87 05/20/17 12:00 98.9 Mechanical Ventilator 30.00 05/20/17 12:00 100 Mechanical Ventilator 30 05/20/17 11:05 98 27 100 30 05/20/17 11:00 103 9 185/77 100 Mechanical Ventilator 30.00 05/20/17 10:28 100 Vapotherm 30.00 40 05/20/17 10:00 90 22 174/78 100 Mechanical Ventilator 30.00 05/20/17 09:15 89 26 100 30 05/20/17 09:00 82 21 158/68 100 Mechanical Ventilator 30.00 05/20/17 08:00 99.1 Mechanical Ventilator 30.00 05/20/17 08:00 86 21 165/66 100 Mechanical Ventilator 30.00 05/20/17 08:00 100 Mechanical Ventilator 30 I & O 05/21/17 07:00 Intake Total 1912 ml Output Total 3550 ml Balance -1638 ml General Appearance: No Apparent Distress (pt is awake/alert and comfortable on vent), Chronically ill Neck: Full Range of Motion, Normal Inspection Respiratory: No Accessory Muscle Use, No Respiratory Distress, Decreased Breath Sounds, Other (scattered rhonchi without wheezing. Breath sounds are equal bilaterally) Cardiovascular: Regular Rate, Rhythm, No Edema, No Gallop, No JVD, Normal Peripheral Pulses, Other (1 to 2/6 systolic ejection murmur heard at the left lower sternal border.) Capillary Refill: Less Than 3 Seconds Gastrointestinal: soft, tenderness Extremity: Other Neurologic/Psychiatric: Alert Skin: Normal Color, Warm/Dry, Pallor Lymphatic: No Adenopathy Results Lab Laboratory Tests 05/20/17 04:00 05/21/17 03:40 Assessment/Plan Assessment/Plan Acute respiratory failure -- s/p PNA treatment - Continue weaning trials. Will trial patient on T- Tube daily as tolerated then back to SIMV - continue Precedex at night. D/C during daytime per family request -s/p tracheostomy - -Copious amounts of sputum with mucous plugging - no leukocytosis or fever -will do bronchoscopy today - repeat sputum cultures. Anxiety -Risperdal 0.25mg BID -please no Ativan or Xanax Acute respiratory failure is now becoming chronic respiratory failure -up to chair daily as tolerated - Pt is tolerating up to chair well Pulmonary edema secondary to IVF -Pt is getting Lasix 40mg daily - 6am daily Persistent hypokalemia -will give 80meq of KCL today -add spironolactone. Atelectasis -monitor -increase activity as tolerated Anemia - monitor Malnutrition/debility/weakness -Pt is tolerating TF well -Pt is getting IV Synthroid -repeat TSH HX of SVT/AF -LABS AND CXR reviewed 233 60 min spent with patient RN, Rt explaining pt care plan. Pt is ok from my stand point to transfer to LTAC Clinical Quality Measures DVT/VTE Risk/Contraindication: Risk Factor Score Per Nursin RFS Level Per Nursing on Admit: 4+=Very High CHRISS ARTIS DO May 21, 2017 07:13
--- NOTE | 2017-05-21 07:21 | Pulmonary Procedures ---
Pulmonary Procedures Date of Procedure Date of Service: May 21, 2017 Bronch Bronchoscopy with bronchoalveolar lavage (BAL), transbronchial washes . Preop DX mucous plugging Postop DX: same Complications: none After informed consent obtained and formal time out pt was sedated using Fentanyl and Versed. Bronchoscope was advanced through tracheostomy tube. 1% lidocaine was used to anesthetize guera, and left/right main stem bronchus. An anatomical tour was undertaken down to the segmental bronchi bilaterally. No endobronchial lesions noted. From the RML a bronchoalveolar lavage (BAL), transbronchial washes and, brushes were obtained. mucous plugging was noted bilaterally L>R. Pt tolerated procedure well. No complications noted. Stat CXR is pending. CHRISS ARTIS DO May 21, 2017 07:21
--- NOTE | 2017-05-21 07:34 | Diagnostic Imaging Report ---
INDICATION: Post bronchoscopy 0718 hours Since the study of one day earlier, there is persistent cardiomegaly. There is right parahilar and bilateral basilar airspace disease. No pneumothorax is seen. Overall, no change is identified. IMPRESSION: Stable bilateral airspace disease without evidence of acute abnormality or complication. Dictated by: Dictated on workstation # [id number]
[2017-05-21] MEDS ORDERED: PIPERACILLIN SODIUM/TAZOBACTAM 4.5 GM in NS (IVPB) 100 ML IV SCH (08:30)
[2017-05-21] MEDS ORDERED: GENTAMICIN INJ (FOR COMPOUND) 0.1 MG in NS (IVPB) 100 ML IV SCH (08:30)
[2017-05-21] MEDS ORDERED: NS IV SCH (08:45)
[2017-05-21] MEDS ORDERED: GENTAMICIN IV SCH (08:45)
[2017-05-21] MEDS: risperiDONE 0.25 MG (RisperDAL) TAB PO SCH ×2 (09:00→21:46)
--- NOTE | 2017-05-21 09:46 | Physical Therapy Daily Note ---
PT Daily Note-Current Subjective Patient agrees to PT. Patient had a bronch this a.m. and is still sedated from the procedure. Difficulty staying awake during treatment. Pain Numeric Pain Scale: 5-Moderate Pain Location: Soft Tissue Location Body Site: Generalized Pain Description: Ache Mental Status Patient Orientation: Normal For Age Attachments: Colostomy/Ileostomy, Ventilator, Reynolds Catheter, IV Transfers Functional [place] Measure 0=Not Assessed/NA 4=Minimal Assistance 1=Total Assistance 5=Supervision or Setup 2=Maximal Assistance 6=Modified [place] 3=Moderate Assistance 7=Complete IndependenceIRFPAI Quality Coding Scale 6 Independent with activity with or without an assistive device 5 Patient requires set up or clean up by helper. Patient completes activity by themselves 4 Supervision or touching assist (CGA). [place] provide cues , steadying assist 3 The helper provides less than half the effort to complete the activity 2 The helper provides more than half the effort to complete the activity 1 Dependent. The helper does all the effort to complete an activity 7 Patient refused to complete or attempt activity 9 The patient did not perform the activity before the current illness or injury 88 Not attempted due to Medical conditions or safety concerns Transfers (B, C, W/C) (FIM): 1 Scootin Rollin Supine to/from Sit: 1 Sit to/from Stand: 1 Bed to/from Chair: 1 Dawna lift transfer bed to recliner Attempted to sit in recliner unsupported by pulling patient forward with dawna sling to facilitate patient activation of core musculature. Patient is unable to perform this task due to severe weakness. Attempted this task x 3 sets with same result. Exercises Seated Therapy Exercises: Ankle pumps, Long arc quads, Hip flexion Seated Reps: 10 (2 sets) Assessment Patient continues to display extreme weakness total body with minimal progress. PT has instructed family to perform ROM bilateral LE's PRN during day to help facilitate muscle activation. Patient has 0/5 knee flexion and hip flexion bilaterally. Patient also has 0/5 core musculature with inability to activate these muscles in attempt to sit unsupported in recliner. PT Shelter Goals Shelter Goals PT Production Team Advisor Goals Time Frame: May 13, 2017 Transfers (B,C,W/C) (FIM): 4 Gait (FIM): 2 Gait distance (FIM): 1=up to 49 ft Gait Assistive Device: FWW PT Plan Treatment/Plan Treatment Plan: Continue Plan of Care Treatment Plan: Bed Mobility, Education, Functional Activity Carlos A, Functional Strength, Gait, Safety, Therapeutic Exercise, Transfers Treatment Duration: May 13, 2017 Visits Per Week: 5-11 Time/GCodes Time In: 855 Time Out: 920 Total Billed Treatment Time: 25 Total Billed Treatment 1 visit FA 10 min EX 15 min JOSE CARUSO PT May 21, 2017 09:46
[2017-05-21] MEDS: LIDOCAINE (LIDODERM) 5% PATCH TOP SCH (10:19)
[2017-05-21] MEDS: PROPAFENONE 225 MG TAB PO SCH ×3 (10:19→21:45)
[2017-05-21] MEDS: PANTOPRAZOLE 40 MG/10 ML (PROTONIX) VIAL IVP SCH (10:20)
[2017-05-21] MEDS: LEVOTHYROXINE 100 MCG INJ (SYNTHROID) VIAL IV SCH (10:20)
[2017-05-21] MEDS: SPIRONOLACTONE 25 MG (ALDACTONE) TAB PO SCH ×2 (10:22→21:45)
[2017-05-21] MEDS: CARVEDILOL 6.25 MG (COREG) TAB PO SCH ×2 (10:22→21:46)
[2017-05-21] MEDS: DAKIN'S 1/4 STRENGTH (0.125%) 473 ML BTL TOP SCH (10:23)
[2017-05-21] MEDS: DOCUSATE SODIUM 100 MG (COLACE) CAP PO SCH ×3 (10:23→21:46)
--- NOTE | 2017-05-21 10:38 | Progress Note-Hospitalist ---
Progress Note HPI/CC on Admission CC: Management of critical illness with acute peritonitis due to bowel perforation with aspiration of bowel contents during intubation HPI: This is a 61-year-old white female clinic patient of Dr. 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 Apparently she was wanting to go to [place] and used to suppository like she usually does because she is struggle with constipation since cardiac meds have been initiated several years ago but at noon time she started having a lot of pain to the extent that required emergency room evaluation. CT scan was obtained found to have bowel perforation with peritonitis and during intubation for surgery she aspirated bowel contents so she now has a diverting colostomy but the pictures during surgery appeared to have a multitude of impacted bowel contents within the abdominal cavity. I did speak with Dr. Horvath her primary care provider and employer and it appears that she is not up-to-date on her colonoscopy and has not had one before and she has had significant constipation issues for the past several years so I hypothesized that impacted stool has been an ongoing problem for her probably stretching the tissue over a long period time and finally rupturing causing this critical illness. She is requiring high doses of Levophed and closely monitoring due to severe sepsis and multisystem organ failure. She has received aggressive IV fluids per protocol and currently monitor closely due to history of arrhythmia maintained on Rythmol as an outpatient. She sees Dr. Ku cardiology at [place] after she failed undergoing ablation up in [place] years ago. I have consulted cardiology and information technology audit manager and eICU to facilitate management of this critically ill patient. 05/09/17 patient became quite anxious and hypertensive during pressure support trial apparently rather abruptly occurred and nursing staff. O2 saturations dropped to the 70s with altered mental status. There have been no change in medications associated with this. She was taken off of pressure support and placed back on mechanical ventilation. She is ventilating easily time of my arrival eyes were open pupils were 5 mm symmetrical and reactive but the patient was not responsive. She was moving all extremities. 05/10/17 patient is back to baseline state of anxiety and back to baseline levels of CO2 retention. She is resting comfortably upon my arrival and appears to be in no distress although when asked she always volunteers that she is having significant pain. Physical exam findings are unchanged from yesterday chest x-ray and labs are stableexcept for improved ABG levels compared to yesterday's distress levels. Progress Notes/Assess & Plan Date Seen 05/21/17 Time Seen by Provider: 10:45 Admission Dx/Process Assessment: Acute peritonitis from colonic perforation with impacted stool with history of severe chronic constipation status post diverting colostomy POD # 1 Aspiration of bowel contents during intubation for surgery with ventilator- dependent respiratory failure currently History of SVT/AF status post attempted ablation an unsuccessful maintained on Rythmol by Dr. 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: Pt is currently breathing on her own through trach and on T piece Bronch was performed this morning Patient Interview: Pt was sitting in a chair upon interview Pt was informed that her labs look great Physical exam stable No fever, vital signs stable, pleasant, much improved, up in chair Regular rate and rhythm, coarse breath sounds all pinedo improved No edema change from 2+ Assessment: Acute peritonitis from colonic perforation with impacted stool with long history of severe chronic constipation status post diverting colostomy with septic shock requiring pressors and aggressive IVF management now improved and more stable but but unable to extubate as tentatively planned but will begin the wean process after trach placed likely will need [place] or other long- term facility Aspiration of bowel contents during intubation for surgery with ventilator- dependent respiratory failure currently maintained on abx History of SVT status post attempted ablation and unsuccessful maintained on Rythmol by Dr. Ku cardiology Shanta consulted Dr Nettles and his recs are appreciated and had an episode of AF last week resolved with suctioning History of hypertension Hypothyroidism Leukopenia due to sepsis now leukocytosis Hypokalemia replacing Metabolic acidosis due to sepsis Thrombocytopenia due to sepsis improved Anemia likely affiliated due to phlebotomy s/p 2 units of blood last week Plan: Monitor labs Maintain colostomy SCDs Stable but guarded Morphine dosage as needed Monitor closely Long recovery expected follow up on bronch results Scribed by Teresita Hathaway under the direct supervision of Dr. Rome. DAVY ROME DO May 21, 2017 10:38
--- NOTE | 2017-05-21 12:13 | Progress Note-Standard ---
Standard Progress Note Progress Notes/Assess & Plan Date Seen by Provider: May 21, 2017 Time Seen by Provider: 09:48 Progress/Assessment & Plan 04/26/17:septic with severe leukopenia. Very poor urine output. On dual vasopressors. Sinus tachycardia. Outcome poor with expected mortality. Central venous pressure around 12. We'll continue to provide fluid resuscitation and maintain vasopressors for now. 04/27/17:continues to require vasopressor support. Urine output reasonable. Creatinine slightly elevated. Ventilation and oxygenation stable. Will place a wound VAC tomorrow. Continue supportive abdomen. Enteral nutrition in 24- 48 hours. DVT prophylaxis with low molecular weight heparin, renally adjusted dose 04/28/17:off the vasopressors. Renal function reasonable.NG output more than 1 L and therefore tube feeding will be delayed.electrolytes satisfactory.we'll continue current management. 04/29/17:Improving. Would facilitate diuresis before embarking on extubation. Intra-abdominal abscesses to be looked for by next week. L femoral arterial line satisfactory with no distal ischemia. Nutritional support in 24-48 hours. 04/30/17:slight change in her condition with decreased urine output and leukocytosis. Abdominal abscess in evolution very likely the culprit. More opacification of the right lung. We will try enteral feeding. Continue antibiotics 05/01/17 Diuresis in progress. Pressure mattress appropriate to prevent skin breakdown. Fascia intact. Tolerating tube feeds. Vent weaning over terrie next 24- 48 hours. HIT antibodies negative 05/04/17: Reintubated. Anasarca improved. Fascia intact. Intra-abdominal abscesses to be expected. CT scan in 48 hours. Tracheostomy discussed with the family and planned for this week 05/05/17:CONTINUES TO IMPROVE. pOOR MUSCLE STRENGTH. tRACHEOSTOMY IN [address] SCAN TOMORROW MORNING. 05/06/17:Intra-abdominal and pelvic abscesses drained percutaneously. Tracheostomy tomorrow. 05/08/17: Anxious and tearful, expected. Jejunal feeding in progress. Possible pseudomonas in cultures. Vent weaning initiated 05/11/17: Fluctuating temperature, possibly due to additional intra-abdominal abscesses. CT/drainage planned for tomorrow. Anasarca. Poor muscle strength 05/12/17: No major changes in her condition. Repeat CT scan ending. Vent weaning attempts in progress. Poor muscle strength. 05/13/17:improvements with weaning attempts. Patient is very upset about not being able to get the required pain medications due to changes and orders laced by Dr. Causey. Hemoglobin decreased to 7.5 and transfusion would be in order. Output from the radius drains very minimal and would therefore be removed soon. 05/14/17:continues to improve. Very minimal output from the initial set of drains placed a week ago. These will be removed soon.more awake. Physical therapy in progress. Weaning attempts to proceed 05/15/17:continues to improve. One more drain will be removed today. Physical and occupational therapy in progress. Abdominal wound granulating. 05/16/17:progressive improvement. Anxious to resume eating. Speech therapist requested to evaluate the risk of aspiration. Very minimal output from the drains, that would be removed in 24 hours. Long-term rehabilitation discussions initiated 05/17/17:continues to improve. Chest x-ray much clear.swallow evaluation in a.m. 05/18/17: Patient reports being fatigued but the respiratory parameters appear to be satisfactory. The last abdominal drain will be removed today. Continue vent weaning measures 05/20/17:profuse tracheal secretions requiring suctioning. Hygiene bronchoscopy planned for tomorrow. Hypokalemia, being addressed. 05/20/17: Less anxious. Bronchoscopy completed this morning. Dr. Causey has placed her back on IV antibiotics. No active abdominal concerns at this point Final Diagnosis Fecal peritonitis. Postoperative ventilatory failure MACY TALAVERA MD May 21, 2017 12:13
[2017-05-21] MEDS: ENOXAPARIN 40 MG/0.4 ML (LOVENOX) SYR SC SCH (13:46)
[2017-05-21] MEDS: PIPERACILLIN SODIUM/TAZOBACTAM 4.5 GM in NS (IVPB) 100 ML IV SCH ×2 (13:46→22:50)
--- NOTE | 2017-05-21 13:50 | Physical Therapy Daily Note ---
PT Daily Note-Current Subjective Patient agrees to PT. Pain Numeric Pain Scale: 5-Moderate Pain Location: Soft Tissue Location Body Site: Generalized Pain Description: Ache Mental Status Patient Orientation: Normal For Age Attachments: Central Line, Colostomy/Ileostomy, Ventilator, Reynolds Catheter Transfers Functional [place] Measure 0=Not Assessed/NA 4=Minimal Assistance 1=Total Assistance 5=Supervision or Setup 2=Maximal Assistance 6=Modified [place] 3=Moderate Assistance 7=Complete IndependenceIRFPAI Quality Coding Scale 6 Independent with activity with or without an assistive device 5 Patient requires set up or clean up by helper. Patient completes activity by themselves 4 Supervision or touching assist (CGA). [place] provide cues , steadying assist 3 The helper provides less than half the effort to complete the activity 2 The helper provides more than half the effort to complete the activity 1 Dependent. The helper does all the effort to complete an activity 7 Patient refused to complete or attempt activity 9 The patient did not perform the activity before the current illness or injury 88 Not attempted due to Medical conditions or safety concerns Transfers (B, C, W/C) (FIM): 1 Scootin Rollin Supine to/from Sit: 1 dependent assist x 2 supines<>sit with co-treat with OT PT assisted patient in sitting EOB with weight shifting exercises to facilitating core strengthening to improve sitting ability. While OT address bilateral UE exercises in sit to facilitate upper body strengthening. Assessment Patient fatigues with activity. PT address cervical ROM and strengthening in seated position with patient performing cervical extension, to neutral, by initiating movement and PT completing movement. Patient continues to present with extreme weakness. PT Residential Treatment Staff Goals Residential Treatment Staff Goals PT Residential Treatment Staff Goals Time Frame: May 13, 2017 Transfers (B,C,W/C) (FIM): 4 Gait (FIM): 2 Gait distance (FIM): 1=up to 49 ft Gait Assistive Device: FWW PT Plan Treatment/Plan Treatment Plan: Continue Plan of Care Treatment Plan: Bed Mobility, Education, Functional Activity Carlos A, Functional Strength, Gait, Safety, Therapeutic Exercise, Transfers Treatment Duration: May 13, 2017 Visits Per Week: 5-11 Time/GCodes Time In: 1310 Time Out: 1340 Total Billed Treatment Time: 30 Total Billed Treatment 1 visit FA 15 min (co-treat with OT 15 min) JOSE CARUSO PT May 21, 2017 13:50
--- NOTE | 2017-05-21 14:11 | Occupational Ther Daily Note ---
OT Current Status-Daily Note Subjective Pt. does not report pain, but does mouth the words, "I don't feel good today." Appearance Pt. in bed. OT/PT co-treat due to amount of skilled intervention needed. This is explained to pt. She agrees. Mental Status/Objective Patient Orientation: Person, Place Functional [place] Measure 0=Not Assessed/NA 4=Minimal Assistance 1=Total Assistance 5=Supervision or Setup 2=Maximal Assistance 6=Modified [place] 3=Moderate Assistance 7=Complete [place] Attachments: Reynolds Catheter, IV, NG Tube, Oxygen, Telemetry, Ventilator Other Treatment OT/PT co-treat due to pt's weakness level. Pt. has multiple tubes and cords. Requires careful positioning on all parts before transfer to side of bed. Transfer pt. to side of bed, supine-sit, with dependent assist x 2. Pt. is positioned on side of bed for upright posture. Note that pt. has almost no strength and is unable to initiate postural control or muscle stimulation without cues to do so. OT sits in front of pt. and initiates UE movement, feet position, and erect posture with cues. Pt. does have emerging bicep flexion/ tricep extension with cues and encouragement. OT sits behind pt. on bed and has to facilitate upright head posture, (pt. unable to hold her own head up), as well as pectoral stretch and positioning of trunk, as pt. is unable to sit upright on her own. Pt. is encouraged throughout treatment to hold her head up , move her arms, and engage core muscles. Pt. is able to keep eyes open and attempts to participate. Is able to slightly shrug shoulders. Pt. is able to mouth that she would like to lay back down. Requires dependent assistance x 2 for sit-supine, and then bed mobility. All needs met in bed. Nursing came into room to check lines and tracheostomy. Education OT Patient Education: Modified ADL techniques, Progress toward Goal/Update tx plan, Purpose of tx/functional activities, Reviewed precautions, Rehab process, Transfer techniques Teaching Recipient: Patient Teaching Methods: Demonstration, Discussion Response to Teaching: Verbalize Understanding, Return Demonstration OT Short Term Goals Short Term Goals 1=Demonstrate adherence to instructed precautions during ADL tasks. 2=Patient will verbalize/demonstrate understanding of assistive devices/ modifications for ADL. 3=Patient will improve strength/tolerance for activity to enable patient to perform ADL's. OT Shrimp Peeling Machine Operator Goals Halfway Goals Time Frame: May 18, 2017 - Decrease edema to allow functional use bilat UEs. - Increase functional use UEs - Increase participation in basic self care as pt status changes Additional Goals: 3-ImproveStrength/Carlos A 1=Demonstrate adherence to instructed precautions during ADL tasks. 2=Patient will verbalize/demonstrate understanding of assistive devices/ modifications for ADL. 3=Patient will improve strength/tolerance for activity to enable patient to perform ADL's. OT Education/Plan Problem List/Assessment Assessment: Decreased Activ Tolerance, Decreased UE Strength, Dependent Transfers, Impaired Bed Mobility, Impaired Coordination, Impaired Funct Balance , Impaired I ADL's, Impaired Self-Care Skills, Restricted Funct UE ROM Pt would benefit from skilled OT to help increase functional use of bilat UEs and independence in basic self care to decrease caregiver burden and assist with discharge planning Discharge Recommendations Plan/Recommendations: Continue POC Therapy D/C Recommendations: Acute Rehab Target Placement Pt. will need significant rehab when pt. has medically cleared and is off ventilator. Will continue to work on increasing strength and endurance to get pt. to a point that she can tolerate 3 hours of therapy. Treatment Plan/Plan of Care Treatment,Training & Education: Yes Patient would benefit from OT for education, treatment and training to promote independence in ADL's, mobility, safety and/or upper extremity function for ADL' s. Plan of Care: ADL Retraining (when appropriate), Caregiver Training, Functional Mobility, UE Funct Exercise/Act, UE Neuromus Re-Ed/Coord, W/C Management Training Treatment Duration: May 18, 2017 Visits Per Week: 5 Agreement: Yes Rehab Potential: Fair Time/GCodes Start Time: 13:10 Stop Time: 13:40 Total Time Billed (hr/min): 30 Billed Treatment Time 1, FA x 15minutes(30minute co-treat) Please see above note for designated OT\\PT roles. JAILYN ASHER OT May 21, 2017 14:11
[2017-05-21] MEDS: IBUPROFEN SUSP 100MG/5ML (MOTRIN) UDC PO PRN ×2 (15:15→21:46)
[2017-05-21 20:28] LABS: BASOPHILS # (AUTO) 0.1 10^3/uL (0.0-0.1); BASOPHILS % (AUTO) 1 % (0-10); EOSINOPHILS # (AUTO) 0.1 10^3/uL (0.0-0.3); EOSINOPHILS % (AUTO) 1 % (0-10); LYMPHOCYTES # (AUTO) 1.1 X 10^3 (1.0-4.0); LYMPHOCYTES % (AUTO) 9 % (12-44); MEAN CORPUSCULAR HEMOGLOBIN 29 PG (25-34); MEAN CORPUSCULAR HGB CONC 31 G/DL (32-36); MEAN CORPUSCULAR VOLUME 92 FL (80-99); MEAN PLATELET VOLUME 9.7 FL (7.4-10.4); MONOCYTES # (AUTO) 0.9 X 10^3 (0.0-1.0); MONOCYTES % (AUTO) 7 % (0-12); NEUTROPHILS # (AUTO) 10.9 X 10^3 (1.8-7.8); NEUTROPHILS % (AUTO) 84 % (42-75); PLATELET COUNT 525 10^3/uL (130-400); RED BLOOD COUNT 3.11 10^6/uL (4.35-5.85); RED CELL DISTRIBUTION WIDTH 14.7 % (10.0-14.5)
[2017-05-21 20:48] LABS: ALANINE AMINOTRANSFERASE 66 U/L (0-55); ALBUMIN 2.3 GM/DL (3.2-4.5); ANION GAP 8 MMOL/L (5-14); ASPARTATE AMINO TRANSFERASE 44 U/L (5-34); BILIRUBIN,TOTAL 0.5 MG/DL (0.1-1.0); BLOOD UREA NITROGEN 46 MG/DL (7-18); BUN/CREATININE RATIO 61 (0-20); CALCIUM 8.6 MG/DL (8.5-10.1); CARBON DIOXIDE 33 MMOL/L (21-32); CHLORIDE 103 MMOL/L (98-107); CREATININE SERUM 0.76 MG/DL (0.60-1.30); GFR ESTIMATED > 60; GLUCOSE 125 MG/DL (70-105); HEMOLYSIS 3 (-100-29); ICTERUS 0.5 (-100-1.9); LIPEMIA 0 (-100-49); POTASSIUM 3.9 MMOL/L (3.6-5.0); SODIUM 144 MMOL/L (135-145)
[2017-05-21] MEDS: oxyCODONE 5 MG/5 ML ORAL SOLN (roxiCODONE) 5 ML UDC PO PRN (21:46)
[2017-05-21] MEDS: DEXMEDETOMIDINE INJECTION 200 MCG in NS (IVPB) 50 ML IV SCH (21:47)
[2017-05-21] MEDS: LIDOCAINE PATCH REMOVAL TP SCH (21:47)
[2017-05-22] VITALS (16 sets, daily range): BP systolic 132–183; BP diastolic 57–111
[2017-05-22] MEDS: RT-ALBUTEROL/IPRATROPIUM 3 ML (DUONEB) VIAL INH SCH ×4 (01:26→14:40)
[2017-05-22] MEDS: DEXMEDETOMIDINE INJECTION 200 MCG in NS (IVPB) 50 ML IV SCH (01:36)
[2017-05-22 04:08] LABS: ABG BASE EXCESS 8.4 MMOL/L (-2.5-2.5); ABG HCO3 33 MMOL/L (23-27); ABG OXYGEN SATURATION 97 % (94-100); ABG PCO2 48 MMHG (35-45); ABG PH 7.45 (7.37-7.43); ABG PO2 84 MMHG (79-93); ABG TCO2 34.2 MMOL/L (21.0-31.0)
[2017-05-22 04:12] LABS: ALLENS TEST YES-POS; PATIENT TEMP 98.1
[2017-05-22 04:12] LABS: BASOPHILS # (AUTO) 0.1 10^3/uL (0.0-0.1); BASOPHILS % (AUTO) 1 % (0-10); EOSINOPHILS # (AUTO) 0.2 10^3/uL (0.0-0.3); EOSINOPHILS % (AUTO) 2 % (0-10); LYMPHOCYTES % (AUTO) 9 % (12-44); MEAN CORPUSCULAR HEMOGLOBIN 29 PG (25-34); MEAN CORPUSCULAR HGB CONC 31 G/DL (32-36); MEAN CORPUSCULAR VOLUME 92 FL (80-99); MEAN PLATELET VOLUME 10.1 FL (7.4-10.4); MONOCYTES # (AUTO) 0.7 X 10^3 (0.0-1.0); MONOCYTES % (AUTO) 6 % (0-12); NEUTROPHILS # (AUTO) 9.2 X 10^3 (1.8-7.8); NEUTROPHILS % (AUTO) 82 % (42-75); PLATELET COUNT 470 10^3/uL (130-400); RED BLOOD COUNT 2.88 10^6/uL (4.35-5.85); RED CELL DISTRIBUTION WIDTH 14.7 % (10.0-14.5); WHITE BLOOD COUNT 11.2 10^3/uL (4.3-11.0)
[2017-05-22 04:39] LABS: ANION GAP 11 MMOL/L (5-14); BLOOD UREA NITROGEN 46 MG/DL (7-18); BUN/CREATININE RATIO 62 (0-20); CARBON DIOXIDE 28 MMOL/L (21-32); CHLORIDE 106 MMOL/L (98-107); CREATININE SERUM 0.74 MG/DL (0.60-1.30); GFR ESTIMATED > 60; GLUCOSE 128 MG/DL (70-105); HEMOLYSIS 5 (-100-29); ICTERUS 0.4 (-100-1.9); LIPEMIA 7 (-100-49); MAGNESIUM 1.7 MG/DL (1.8-2.4); PHOSPHORUS 3.1 MG/DL (2.3-4.7); POTASSIUM 3.8 MMOL/L (3.6-5.0); SODIUM 145 MMOL/L (135-145)
[2017-05-22] MEDS: POTASSIUM CL 10MEQ/50ML IVPB 50 ML IV SCH (05:18)
[2017-05-22] MEDS: KCL 20 MEQ TAB (K-DUR) PO SCH (05:18)
[2017-05-22] MEDS: MAGNESIUM 1 GM/100 ML IVPB 100 ML IV SCH ×3 (05:18→09:02)
[2017-05-22] MEDS: FUROSEMIDE 40 MG/4 ML INJ (LASIX) IVP SCH (06:45)
[2017-05-22] MEDS: PIPERACILLIN SODIUM/TAZOBACTAM 4.5 GM in NS (IVPB) 100 ML IV SCH ×2 (06:45→14:28)
[2017-05-22] MEDS: hydrALAZINE (APRESOLINE) 25 MG TAB PO SCH ×2 (06:45→14:28)
--- NOTE | 2017-05-22 08:44 | Diagnostic Imaging Report ---
INDICATION: Respiratory failure, ventilator support. COMPARISON STUDY: Chest from yesterday. FINDINGS: A portable upright view of the chest demonstrates the infiltrates in the right upper lobe to have increased. Infiltrates in the lung bases have improved. The heart size appears a little smaller. A small left effusion is present. The vascularity is normal. A tracheostomy tube, enteric tube, and right arm PICC line remain in place. IMPRESSION: Increasing infiltrates in the right upper lobe with improved infiltrates in the right perihilar region, right base, and left lung base. The heart size appears a little smaller. Dictated by: Dictated on workstation # [id number]
--- NOTE | 2017-05-22 08:52 | Pulmonary Progress Note ---
Exam Exam Vital Signs Date Time Temp Pulse Resp B/P (MAP) Pulse Ox O2 Delivery O2 Flow Rate FiO2 05/22/17 07:00 85 05/22/17 06:59 81 23 100 30 05/22/17 06:00 84 24 162/67 100 Mechanical Ventilator 30.00 05/22/17 05:00 77 17 153/68 100 Mechanical Ventilator 30.00 05/22/17 04:23 75 21 100 30 05/22/17 04:00 100 Mechanical Ventilator 30 05/22/17 04:00 97.9 Mechanical Ventilator 30.00 05/22/17 03:00 80 26 150/67 100 Mechanical Ventilator 30.00 05/22/17 02:00 84 19 157/72 100 Mechanical Ventilator 30.00 05/22/17 01:26 82 23 100 30 05/22/17 01:00 80 05/22/17 01:00 75 23 155/63 100 Mechanical Ventilator 30.00 05/22/17 00:00 98.4 Mechanical Ventilator 30.00 05/22/17 00:00 100 Mechanical Ventilator 30 05/22/17 00:00 69 17 132/57 100 Mechanical Ventilator 30.00 05/21/17 23:33 75 21 100 30 05/21/17 23:00 77 20 142/64 100 Mechanical Ventilator 30.00 05/21/17 22:00 94 23 188/86 100 Mechanical Ventilator 30.00 05/21/17 21:22 93 21 100 30 05/21/17 21:00 92 15 177/77 100 Mechanical Ventilator 30.00 05/21/17 20:00 98.4 Mechanical Ventilator 30.00 05/21/17 20:00 98 24 170/85 100 Mechanical Ventilator 30.00 05/21/17 20:00 100 Mechanical Ventilator 30 05/21/17 19:00 96 05/21/17 19:00 96 22 164/74 100 Mechanical Ventilator 30.00 05/21/17 18:31 96 20 100 30 05/21/17 18:00 96 21 167/77 100 Mechanical Ventilator 30.00 05/21/17 17:00 96 22 165/69 100 Mechanical Ventilator 30.00 05/21/17 16:32 100 24 100 30 05/21/17 16:00 97.3 Mechanical Ventilator 30.00 05/21/17 16:00 100 Mechanical Ventilator 30 05/21/17 16:00 96 24 175/73 100 Mechanical Ventilator 30.00 05/21/17 15:00 93 20 168/75 100 Mechanical Ventilator 30.00 05/21/17 14:04 89 19 100 30 05/21/17 14:00 93 20 163/74 100 Mechanical Ventilator 30.00 05/21/17 13:00 89 12 163/81 100 Mechanical Ventilator 30.00 05/21/17 13:00 93 05/21/17 12:00 98.7 Mechanical Ventilator 30.00 05/21/17 12:00 83 20 160/86 100 Mechanical Ventilator 30.00 05/21/17 12:00 100 Mechanical Ventilator 30 05/21/17 11:00 86 20 156/80 100 Mechanical Ventilator 30.00 05/21/17 10:57 94 32 100 30 05/21/17 10:00 96 174/79 100 Mechanical Ventilator 30.00 05/21/17 09:55 92 24 100 40 05/21/17 08:42 91 18 100 30 I & O 05/22/17 07:00 Intake Total 1550 ml Output Total 3575 ml Balance -2025 ml General Appearance: No Apparent Distress (pt is awake/alert and comfortable on vent), Chronically ill Neck: Full Range of Motion, Normal Inspection Respiratory: No Accessory Muscle Use, No Respiratory Distress, Decreased Breath Sounds, Other (scattered rhonchi without wheezing. Breath sounds are equal bilaterally) Cardiovascular: Regular Rate, Rhythm, No Edema, No Gallop, No JVD, Normal Peripheral Pulses, Other (1 to 2/6 systolic ejection murmur heard at the left lower sternal border.) Capillary Refill: Less Than 3 Seconds Gastrointestinal: soft, tenderness Extremity: Other Neurologic/Psychiatric: Alert Skin: Normal Color, Warm/Dry, Pallor Lymphatic: No Adenopathy Results Lab Laboratory Tests 05/21/17 03:40 05/21/17 20:20 05/22/17 03:50 Assessment/Plan Assessment/Plan Acute respiratory failure -- s/p PNA treatment - Continue weaning trials. Will trial patient on T- Tube daily as tolerated then back to SIMV - continue Precedex at night. D/C during daytime per family request -s/p tracheostomy - -Copious amounts of sputum with mucous plugging - s/p bronchoscopy - repeat sputum cultures. Anxiety -Risperdal 0.25mg BID -please no Ativan or Xanax Acute respiratory failure is now becoming chronic respiratory failure -up to chair daily as tolerated - Pt is tolerating up to chair well Pulmonary edema secondary to IVF -Pt is getting Lasix 40mg daily - 6am daily Persistent hypokalemia -will give 80meq of KCL today -add spironolactone. Atelectasis -monitor -increase activity as tolerated Anemia - monitor Malnutrition/debility/weakness -Pt is tolerating TF well -Pt is getting IV Synthroid -repeat TSH HX of SVT/AF -LABS AND CXR reviewed 233 60 min spent with patient RN, Rt explaining pt care plan. Pt is ok from my stand point to transfer to LTAC Clinical Quality Measures DVT/VTE Risk/Contraindication: Risk Factor Score Per Nursin RFS Level Per Nursing on Admit: 4+=Very High CHRISS ARTIS DO May 22, 2017 08:51
[2017-05-22] MEDS: PROPAFENONE 225 MG TAB PO SCH ×2 (09:02→13:04)
[2017-05-22] MEDS: DAKIN'S 1/4 STRENGTH (0.125%) 473 ML BTL TOP SCH (09:02)
[2017-05-22] MEDS: LEVOTHYROXINE 100 MCG INJ (SYNTHROID) VIAL IV SCH (09:03)
[2017-05-22] MEDS: CARVEDILOL 6.25 MG (COREG) TAB PO SCH (09:03)
[2017-05-22] MEDS: risperiDONE 0.25 MG (RisperDAL) TAB PO SCH (09:03)
[2017-05-22] MEDS: PANTOPRAZOLE 40 MG/10 ML (PROTONIX) VIAL IVP SCH (09:03)
[2017-05-22] MEDS: LIDOCAINE (LIDODERM) 5% PATCH TOP SCH (09:03)
[2017-05-22] MEDS: DOCUSATE SODIUM 100 MG (COLACE) CAP PO SCH ×2 (09:03→13:05)
[2017-05-22] MEDS: SPIRONOLACTONE 25 MG (ALDACTONE) TAB PO SCH (09:03)
--- NOTE | 2017-05-22 09:41 | Physical Therapy Daily Note ---
PT Daily Note-Current Subjective Pt mouthed over and over, "I do not want to get up." "I will not get up." "I' m going to [facility] today." Pt did agree to allow bed to be put in semi chair position. Transfers Functional [place] Measure 0=Not Assessed/NA 4=Minimal Assistance 1=Total Assistance 5=Supervision or Setup 2=Maximal Assistance 6=Modified [place] 3=Moderate Assistance 7=Complete IndependenceIRFPAI Quality Coding Scale 6 Independent with activity with or without an assistive device 5 Patient requires set up or clean up by helper. Patient completes activity by themselves 4 Supervision or touching assist (CGA). Lawrence provide cues , steadying assist 3 The helper provides less than half the effort to complete the activity 2 The helper provides more than half the effort to complete the activity 1 Dependent. The helper does all the effort to complete an activity 7 Patient refused to complete or attempt activity 9 The patient did not perform the activity before the current illness or injury 88 Not attempted due to Medical conditions or safety concerns Treatments Spend much time encouraging and trying to convince pt to try to sit EOB; pt declined. Nursing present, as was RT. Pt very adament about not sitting EOB due to her bottom hurting. Explained to patient how we can move her in bed using the bed pad without causing sheering on her buttock, but continued to decline. Placed bed in semi chair position. Worked on AAROM of ankles and knees, pt reluctant to actively attempt movement, before trying, pt was mouth " I cant". Pt in semi chair position with call light under her hand and needs met. Family currently not available. Assessment Resistant to therapy this date, which I understand is not normal for her. Perhaps she is anxious about transfer to [facility] that is pending today. PT Inter Fold Roll Cutter Goals Long-Term Goals PT Long-Term Goals Time Frame: May 13, 2017 Transfers (B,C,W/C) (FIM): 4 Gait (FIM): 2 Gait distance (FIM): 1=up to 49 ft Gait Assistive Device: FWW PT Plan Treatment/Plan Treatment Plan: Continue Plan of Care (vs DC if she does transfer out. ) Treatment Plan: Bed Mobility, Education, Functional Activity Carlos A, Functional Strength, Gait, Safety, Therapeutic Exercise, Transfers Treatment Duration: May 13, 2017 Visits Per Week: 5-11 Safety Risks/Education Patient Education: Reviewed Precautions, Safety Issues Teaching Recipient: Patient Teaching Methods: Discussion Response to Teaching: Reinforcement Needed Time/GCodes Time In: 905 Time Out: 935 Total Billed Treatment Time: 30 Total Billed Treatment visit FA 30 LILY MATTHEWS PT May 22, 2017 09:41
--- NOTE | 2017-05-22 09:49 | Cardiology Progress Note ---
Cardiology SOAP Progress Note Subjective: no cardiac symptoms Objective: I&O/Vital Signs Vital Sign - Last 12Hours 05/21/17 05/21/17 05/21/17 05/22/17 22:00 23:00 23:33 00:00 Pulse 94 77 75 69 Resp 17 B/P (MAP) 188/86 142/64 132/57 Pulse Ox 100 100 100 100 O2 Delivery Mechanical Ventilator Mechanical Ventilator Mechanical Ventilator O2 Flow Rate 30.00 30.00 30.00 FiO2 30 05/22/17 05/22/17 05/22/17 05/22/17 00:00 00:00 01:00 01:00 Temp 98.4 Pulse 75 80 Resp 23 B/P (MAP) 155/63 Pulse Ox 100 100 O2 Delivery Mechanical Ventilator Mechanical Ventilator Mechanical Ventilator O2 Flow Rate 30.00 30.00 FiO2 30 05/22/17 05/22/17 05/22/17 05/22/17 01:26 02:00 03:00 04:00 Temp 97.9 Pulse 82 84 80 Resp B/P (MAP) 157/72 150/67 Pulse Ox 100 100 100 O2 Delivery Mechanical Ventilator Mechanical Ventilator Mechanical Ventilator O2 Flow Rate 30.00 30.00 30.00 FiO2 30 05/22/17 05/22/17 05/22/17 05/22/17 04:00 04:23 05:00 06:00 Pulse 75 77 84 Resp 17 24 B/P (MAP) 153/68 162/67 Pulse Ox 100 100 100 100 O2 Delivery Mechanical Ventilator Mechanical Ventilator Mechanical Ventilator O2 Flow Rate 30.00 30.00 FiO2 30 30 05/22/17 05/22/17 05/22/17 06:59 07:00 08:00 Temp 98.0 Pulse 81 85 Resp 23 Pulse Ox 100 O2 Delivery Mechanical Ventilator O2 Flow Rate 30.00 FiO2 30 Intake and Output 05/22/17 00:00 Intake Total 850 ml Output Total 1150 ml Balance -300 ml Weight (Pounds): 173 Weight (Ounces): 9.6 Weight (Calculated Kilograms): 78.283332 Constitutional: AAO x 3, well-developed, other (status post-trach; on mech vent ; able to communicate) Respiratory: other (Fair bilateral air entry; coarse airway sounds but no rhonchi) Cardiovascular: regular rate-rhythm, S1 and S2, other Gastrointestional: other (Recent abdominal surgery, colostomy in place) Extremities: pedal edema, swelling (generalized), No clubbing, No cyanosis Neurologic/Psychiatric: no motor/sensory deficits, alert, grossly intact Skin: No rash on exposed areas Results/Procedures: Labs Laboratory Tests 05/21/17 18:41: Glucometer 133H 05/21/17 20:20: White Blood Count 13.0H, Red Blood Count 3.11L, Hemoglobin 8.9L, Hematocrit 29L , Mean Corpuscular Volume 92, Mean Corpuscular Hemoglobin 29, Mean Corpuscular Hemoglobin Concent 31L, Red Cell Distribution Width 14.7H, Platelet Count 525H, Mean Platelet Volume 9.7, Neutrophils (%) (Auto) 84H, Lymphocytes (%) (Auto) 9L , Monocytes (%) (Auto) 7, Eosinophils (%) (Auto) 1, Basophils (%) (Auto) 1, Neutrophils # (Auto) 10.9H, Lymphocytes # (Auto) 1.1, Monocytes # (Auto) 0.9, Eosinophils # (Auto) 0.1, Basophils # (Auto) 0.1, Sodium Level 144, Potassium Level 3.9, Chloride Level 103, Carbon Dioxide Level 33H, Anion Gap 8, Blood Urea Nitrogen 46H, Creatinine 0.76, Estimat Glomerular Filtration Rate > 60, BUN /Creatinine Ratio 61H, Glucose Level 125H, Calcium Level 8.6, Total Bilirubin 0.5, Aspartate Amino Transf (AST/SGOT) 44H, Alanine Aminotransferase (ALT/SGPT) 66H, Alkaline Phosphatase 538H, Total Protein 5.0L, Albumin 2.3L 05/22/17 03:50: White Blood Count 11.2H, Red Blood Count 2.88L, Hemoglobin 8.2L, Hematocrit 27L , Mean Corpuscular Volume 92, Mean Corpuscular Hemoglobin 29, Mean Corpuscular Hemoglobin Concent 31L, Red Cell Distribution Width 14.7H, Platelet Count 470H, Mean Platelet Volume 10.1, Neutrophils (%) (Auto) 82H, Lymphocytes (%) (Auto) 9L , Monocytes (%) (Auto) 6, Eosinophils (%) (Auto) 2, Basophils (%) (Auto) 1, Neutrophils # (Auto) 9.2H, Lymphocytes # (Auto) 1.0, Monocytes # (Auto) 0.7, Eosinophils # (Auto) 0.2, Basophils # (Auto) 0.1, Sodium Level 145, Potassium Level 3.8, Chloride Level 106, Carbon Dioxide Level 28, Anion Gap 11, Blood Urea Nitrogen 46H, Creatinine 0.74, Estimat Glomerular Filtration Rate > 60, BUN /Creatinine Ratio 62H, Glucose Level 128H, Calcium Level 8.0L, Phosphorus Level 3.1, Magnesium Level 1.7L 05/22/17 03:55: Blood Gas Puncture Site R RAD, Blood Gas Patient Temperature 98.1, Arterial Blood pH 7.45H, Arterial Blood Partial Pressure CO2 48H, Arterial Blood Partial Pressure O2 84, Arterial Blood HCO3 33H, Arterial Blood Total CO2 34.2H, Arterial Blood Oxygen Saturation 97, Arterial Blood Base Excess 8.4H, Brannon Test YES-POS, Blood Gas Ventilator Setting YES, Blood Gas Inspired Oxygen 30% Microbiology 04/30/17 Blood Culture - Final, Complete No growth 05/21/17 Gram Stain - Final, Resulted 05/21/17 Bronchial Culture - Preliminary, Resulted Gram Negative Portillo See Comments 05/21/17 Fungal Culture, Resulted Pending 05/12/17 Gram Stain - Final, Complete 05/12/17 Anaerobic Culture - Final, Complete No growth 05/12/17 Wound Culture - Final, Complete Staph, Coag Neg (Glazier Artist) See Comments A/P: Assessment/Dx: Large bowel perforation, fecal peritonitis, severe septic shock - resolved. Nonsustained VT, PVCs PAF, Acute diastolic heart failure - resolved Plan: Large bowel perforation status post emergent abdominal surgery by Dr. Ng earlier in the hospital course. Peritonitis/severe septic shock: resolved. Status post trach, on SIMV mode on Ventilator (Critical Care myopathy). Nonsustained VT: occasional PVCs. On propafenone and metoprolol. PAF: currently in sinus rhythm. She is being transferred to [facility] in [place]. I have given her my office information, if she would like to follow us an outpatient after discharge from [facility]. Thank you for allowing us to participate in the care of your patient. Thank you for your consultation. Please call me if you have any questions. Jung Foote MD, FACP, FACC, FSCAI, FHRS, CCDS Interventional Cardiology Cardiac Electrophysiology Vascular Medicine and Endovascular Interventions Darshana FOOTE MD May 22, 2017 9:49 am
--- NOTE | 2017-05-22 11:14 | Occupational Ther Daily Note ---
OT Current Status-Daily Note Subjective Pt in bed with family member present. Pt mouths "yes" when asked to participate in therapy. Pt denies pain. Mental Status/Objective Functional [place] Measure 0=Not Assessed/NA 4=Minimal Assistance 1=Total Assistance 5=Supervision or Setup 2=Maximal Assistance 6=Modified [place] 3=Moderate Assistance 7=Complete [place] Attachments: Reynolds Catheter, IV, Oxygen, Telemetry, Ventilator Other Treatment Pt awake and agrees to treatment. Pt follows commands and answers questions during session. Bilateral UE ROM exercises completed to promote increased active movement and ROM. PROM completed bilateral shoulders. Pt able to participate minimally in elbow, forearm, wrist, and finger ROM. Fatigues quickly with active movements. Pt resting in bed with needs met and family member present after session. OT Short Term Goals Short Term Goals 1=Demonstrate adherence to instructed precautions during ADL tasks. 2=Patient will verbalize/demonstrate understanding of assistive devices/ modifications for ADL. 3=Patient will improve strength/tolerance for activity to enable patient to perform ADL's. OT Hris Manager Goals Residential Goals Time Frame: May 18, 2017 - Decrease edema to allow functional use bilat UEs. - Increase functional use UEs - Increase participation in basic self care as pt status changes Additional Goals: 3-ImproveStrength/Carlos A 1=Demonstrate adherence to instructed precautions during ADL tasks. 2=Patient will verbalize/demonstrate understanding of assistive devices/ modifications for ADL. 3=Patient will improve strength/tolerance for activity to enable patient to perform ADL's. OT Education/Plan Problem List/Assessment Pt would benefit from skilled OT to help increase functional use of bilat UEs and independence in basic self care to decrease caregiver burden and assist with discharge planning Discharge Recommendations Plan/Recommendations: Continue POC Treatment Plan/Plan of Care Patient would benefit from OT for education, treatment and training to promote independence in ADL's, mobility, safety and/or upper extremity function for ADL' s. Plan of Care: ADL Retraining (when appropriate), Caregiver Training, Functional Mobility, UE Funct Exercise/Act, UE Neuromus Re-Ed/Coord, W/C Management Training Treatment Duration: May 18, 2017 Visits Per Week: 5 Agreement: Yes Rehab Potential: Fair Time/GCodes Start Time: 10:24 Stop Time: 10:39 Total Time Billed (hr/min): 15 Billed Treatment Time 1 visit, EX(15minutes) EHSAN,HUMAIRA L OT May 22, 2017 11:14
[2017-05-22] MEDS: morphine INJ 4 MG/ML 1 ML (VIAL/SYRINGE) IVP PRN ×2 (13:02→15:38)
[2017-05-22] MEDS: IBUPROFEN SUSP 100MG/5ML (MOTRIN) UDC PO PRN (13:02)
--- NOTE | 2017-05-22 14:00 | Speech Therapy Progress Note ---
Therapy Progress Note Speech pathology attempted follow up with patient to continue dysphagia exercises on this date. The patient politely declined therapy at this time secondary to significant fatigue. Speech pathology will reattempt treatment as able and appropriate. Thank you. DARRIAN BLOCK May 22, 2017 14:00
[2017-05-22] MEDS: ENOXAPARIN 40 MG/0.4 ML (LOVENOX) SYR SC SCH (14:28)
== END 2017-05-22 15:50 | DRG 3 ==
LOC: EDUNIT# 13:59 → ER 14:01 → SDC 20:25 → ICU 23:50
PROVIDERS: ADMIT Surgery; ATTEND Surgery
PROC: 0D1 Gastrointestinal System, Bypass (ICD-10-PCS; 2017-04-25)
PROC: 5A1955Z Respiratory Ventilation, Greater than 96 Consecutive Hours (ICD-10-PCS; 2017-04-25)
PROC: 0DTN4ZZ Resection of Sigmoid Colon, Percutaneous Endoscopic Approach (ICD-10-PCS; principal; 2017-04-25 20:46)
PROC: 0B9J8ZZ Drainage of Left Lower Lung Lobe, Via Natural or Artificial Opening Endoscopic (ICD-10-PCS; 2017-05-05)
PROC: 0W9G30Z Drainage of Peritoneal Cavity with Drainage Device, Percutaneous Approach (ICD-10-PCS; 2017-05-06)
PROC: 0W9J30Z Drainage of Pelvic Cavity with Drainage Device, Percutaneous Approach (ICD-10-PCS; 2017-05-06)
PROC: 0B113F4 Bypass Trachea to Cutaneous with Tracheostomy Device, Percutaneous Approach (ICD-10-PCS; 2017-05-07 09:43)
PROC: 0B9D8ZZ Drainage of Right Middle Lung Lobe, Via Natural or Artificial Opening Endoscopic (ICD-10-PCS; 2017-05-21)
PROC: 0BBD8ZZ Excision of Right Middle Lung Lobe, Via Natural or Artificial Opening Endoscopic (ICD-10-PCS; 2017-05-21)
DX: A41.9 Sepsis, unspecified organism (principal); R65.21 Severe sepsis with septic shock; K63.1 Perforation of intestine (nontraumatic); K65.0 Generalized (acute) peritonitis; J96.00 Acute respiratory failure, unspecified whether with hypoxia or hypercapnia; I11.0 Hypertensive heart disease with heart failure; I50.31 Acute diastolic (congestive) heart failure; K65.1 Peritoneal abscess; I47.1 Supraventricular tachycardia; J98.11 Atelectasis; E87.0 Hyperosmolality and hypernatremia; E46 Unspecified protein-calorie malnutrition; E87.2 Acidosis; T17.918A Gastric contents in respiratory tract, part unspecified causing other injury, initial encounter; I48.0 Paroxysmal atrial fibrillation; E87.6 Hypokalemia; E03.9 Hypothyroidism, unspecified; E78.00 Pure hypercholesterolemia, unspecified; K59.09 Other constipation; D69.59 Other secondary thrombocytopenia; E16.2 Hypoglycemia, unspecified; E87.8 Other disorders of electrolyte and fluid balance, not elsewhere classified; E87.5 Hyperkalemia; E88.09 Other disorders of plasma-protein metabolism, not elsewhere classified; R60.1 Generalized edema; T17.900A Unspecified foreign body in respiratory tract, part unspecified causing asphyxiation, initial encounter; B96.5 Pseudomonas (aeruginosa) (mallei) (pseudomallei) as the cause of diseases classified elsewhere; F41.8 Other specified anxiety disorders; D63.8 Anemia in other chronic diseases classified elsewhere; R53.81 Other malaise
CPT/HCPCS: 36415; 36569; 51701; 71010; 71250; 71260; 74000; 74177; 76937; 77012; 80048; 80051; 80053; 80076; 80170; 81000; 82040; 82330; 82805; 82962; 83605; 83690; 83735; 83880; 84100; 84134; 84436; 84439; 84443; 84478; 84480; 85007; 85014; 85018; 85025; 85027; 85384; 85610; 85730; 86022; 86141; 86850; 86900; 86901; 86920; 87040; 87070; 87075; 87077; 87101; 87106; 87116; 87186; 87205; 88307; 93005; 93306; 94002; 94003; 94640; 94660; 94799; 96361; 96365; 96367; 96368; 96375; 96376

== ENCOUNTER 2017-07-16 10:08 | Inpatient (IN) | payer BC ==
[~2017-07-16] VITALS: Ht 170.2 cm; Wt 55.9 kg
[~2017-07-16 10:08] MED LIST: ESTR1TAB24 PO; ESTR1TAB37 PO; LEVO75TA6 PO; OLME40TA12 PO; PROP225T2 PO; SIMV20TA3 PO; TERA1CAP3 PO
[2017-07-16 13:40] VITALS: BP 110/67
--- NOTE | 2017-07-16 15:24 | ST Cognitive Linguistic Eval ---
Speech Evaluation-General Medical Diagnosis s/p Bowel Perforation, Tracheostomy (capped) Therapy Diagnosis Therapy Diagnosis: Cognitive Linguistic Skills WNL Precautions Precautions/Isolations: Fall Prevention, Standard Precautions, Pressure Ulcer Referral Referring Physician: Dr. Shoaib Henriquez Reason for Referral: Evaluation/Treatment Cognitive Evaluation Medical History Pertinent Medical History: Arthritis, HTN, Hypothroidism Social History Home: Single Level Current Living Status: Significant Other Speech PLF-Current Status Prior Level of Function The patient denied challenges with speech, language, or cognition prior to or following her most recent hospitalization. Subjective The patient was recently admitted to [facility] following a bowel perforation resulting in sepsis, intubation, PEG tube placement, and tracheostomy placement. At this time, the patient's #6 tracheostomy is capped and the PEG tube was recently removed (07/11/17). The patient greeted the clinician appropriately and was agreeable to participation in the cognition evaluation. Language Eval: Auditory Comprehends Simple Yes/No Ques: Functional Indent/Objects Multiple [place]: Functional Ident/Pics in Multiple [place]: Functional Follows 1-Step Commands: Functional Follows Complex Directions: Functional Follows General Conversations: Functional Language Eval: Verbal Language Completes Spontaneous Greeting: Functional Produces Auto, Serial Info: Functional Imitates Simple Words/Phrases: Functional Word Finding: Functional Requests Basic Needs: Functional States Basic Personal Info: Functional Expresses Complex Ideas: Functional Cognitive Patient Orientation The patient is independently oriented to month, day of week, date, year, location, and rationale for hospitalization. Objective Cognitive Domain Attention: WNL Memory: WNL Problem Solving: Functional Objective Impression The patient demonstrated cognitive linguistic skills within normal limits and adequate for completion of ADL's. Communication/Social Cognition Comprehension: 6 Expression: 6 Social Interaction: 5 Problem Solvin Memory: 5 Speech Patient Assess Expression of Ideas/Wants: Expression (4) Understanding [place] Content: Understands (4) Brief Interview-Mental Status: Yes Repetition of Three Words: Three (3) Temporal Orientation: Year: Correct (3) Temporal Orientation: Month: Accurate within 5 days(2) Temporal Orientation: Day: Correct (1) Recall : Wear to say "Sock": No, could not recall (0) Recall : Color: Yes, no cue required (2) Recall : Bed: Yes, no cue required (2) Speech-Plan Treatment Plan Speech Therapy Treatment Plan: Discontinue ST Discontinue speech pathology services for cognition. A formal swallow evaluation will occur on the subsequent date (07/17/17). Frequency: Modified Program (IRF) Estimated Hrs Per Day: .5 hour per day Rehab Potential: Fair Safety Risks/Education Teaching Recipient: Patient Teaching Methods: Discussion Response to Teaching: Verbalize Understanding Education Topics Provided: Results, Recommendations, Plan of Care Time Speech Therapy Time In: 14:55 Speech Therapy Time Out: 15:15 Total Billed Time: 20 Billed Treatment Time 1, DARRIAN CABRERA Jul 16, 2017 15:24
[2017-07-16] MEDS ORDERED: BISACODYL 5 MG (DULCOLAX) TABLET PO PRN (15:30)
[2017-07-16] MEDS ORDERED: CHLORASEPTIC SPRAY 177 ML LIQUID MC PRN (15:30)
[2017-07-16] MEDS ORDERED: ACETAMINOPHEN 500 MG TAB (TYLENOL) PO PRN (15:30)
[2017-07-16] MEDS ORDERED: RT-IPRATROPIUM (ATROVENT) 0.5MG/2.5ML AMP IH PRN (15:30)
--- NOTE | 2017-07-16 15:51 | Occupational Therapy Eval ---
OT Evaluation-General/PLF Medical Diagnosis Admission Date 07-16-17 Medical Diagnosis: s/p Bowel Perforation, Tracheostomy (capped) Onset Date: April 25, 2017 Therapy Diagnosis Therapy Diagnosis: Weakness Height/Weight Height (Feet): 5 Height (Inches): 8.00 Weight (Pounds): 173 Weight (Ounces): 9.6 Precautions Precautions/Isolations: Fall Prevention, Standard Precautions, Pressure Ulcer Weight Bear Status Weight Bearing Restriction: Weight Bearing/Tolerated Referral Physician: Dr. jim Referral Reason: Activity Tolerance, Self Care, Evaluation/Treatment, Strengthening/ROM Medical History Pertinent Medical History: Arthritis, HTN, Hypothroidism Additional Medical History vent dependent, pneumonia, bilateral pleural effusions Current History Pt. had fecal peritonitis s/p Harmann procedure with diverting colostomy. Pt. came here April 20. Went to [place] the 22 of May. Spent 10 days in [facility]. Went back to [place]. Came off vent July 06. Reviewed History: Yes Social History Current Living Status: Significant Other Entry Into Home: Level Entry ADL-Prior Level of Function ADL PLOF Comments Pt. was independent with basic self care. DME/Equipment: Bath Chair, Shower, Tub/Shower DME/Equipment Comments Pt. has a wheelchair, walker, and can get a BSC. 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 However, pt. is quite emotional. Cries throughout treatment. States, "I don't know why I am crying." Appearance Pt. is in bed. Agrees to work with therapy. Mental Status/Objective Patient Orientation: Person, Place, Time, Situation Attachments: Colostomy/Ileostomy Current Hand Dominance: Right Upper Extremity ROM Pt. has limited ROM in shoulders. Demonstrates approximately 45 degrees bilaterally, actively. Is able to flex elbows, but this is weak. Able to bring right hand to mouth, but requires the use of left hand to assist it at times. Upper Extremity Coordination impaired-weak. Upper Extremity Strength impaired. Pt. demonstrates 2/5 bilateral hand squeeze. 2+/5 bilateral elbow flexion. ADL-Treatment Functional [place] Measure 0=Not Assessed/NA 4=Minimal Assistance 1=Total Assistance 5=Supervision or Setup 2=Maximal Assistance 6=Modified [place] 3=Moderate Assistance 7=Complete IndependenceIRFPAI Quality Coding Scale 6 Independent with activity with or without an assistive device 5 Patient requires set up or clean up by helper. Patient completes activity by themselves 4 Supervision or touching assist (CGA). [place] provide cues , steadying assist 3 The helper provides less than half the effort to complete the activity 2 The helper provides more than half the effort to complete the activity 1 Dependent. The helper does all the effort to complete an activity 7 Patient refused to complete or attempt activity 9 The patient did not perform the activity before the current illness or injury 88 Not attempted due to Medical conditions or safety concerns Bathing (FIM): 2 (Pt. is able to somewhat wash face and up to elbows with washcloth. Unable to wash any other parts. OT washes all other parts at bed level.) Shower/Bathe Self (QC): 2 Upper Body Dressing (FIM): 1 (Dependent to doff shirt and bra in bed.) Upper Body Dressing (QC): 1 Lower Body Dressing (FIM): 1 (Dependent to doff underwear, pants, and socks.) Lower Body Dressing (QC): 1 On/Off Footwear (QC): 1 Toileting (FIM): 1 (Pt. has colostomy and catheter.) Toileting Hygiene (QC): 1 Transfers (B, C, W/C) (FIM): 2 (Max assist to roll in bed. Max assist for supine-sit. Max assist for sit-stand. Pt. has difficulty bearing weight in bilateral LE. Dependent for bed mobility.) Other Treatments Pt. agreed to treatment. Completed bath in bed. Pt. very weak. Able to roll with assist. Max assist to stand but has difficulty bearing weight. States that they were only using stephanie lift at [place]. Able to sit on side of bed with mod assist at times, and cues to attempt to sit upright. Weakness noted in core. Pt. motivated to go home. Pt. very emotional throughout treatment. Education OT Patient Education: Correct positioning, Modified ADL techniques, Progress toward Goal/Update tx plan, Purpose of tx/functional activities, Reviewed precautions, Rehab process, Transfer techniques Teaching Recipient: Patient Teaching Methods: Demonstration, Discussion Response to Teaching: Verbalize Understanding, Return Demonstration OT Short Term Goals Short Term Goals Time Frame: Jul 30, 2017 Eating(FIM): 4 Grooming(FIM): 4 Bathing(FIM): 3 Upper Body Dressing(FIM): 3 Lower Body Dressing(FIM): 3 Toileting(FIM): 3 Transfers (B,C,W/C) (FIM): 3 Toilet/Commode Transfer(FIM): 3 Shower Transfer(FIM): 3 Additional Short Term Goals: 1-Demonstrate ADL Tasks, 2-Verbalize Understanding , 3-ImproveStrength/Carlos A 1=Demonstrate adherence to instructed precautions during ADL tasks. 2=Patient will verbalize/demonstrate understanding of assistive devices/ modifications for ADL. 3=Patient will improve strength/tolerance for activity to enable patient to perform ADL's. OT Long-Term Goals Long-Term Goals Time Frame: Aug 13, 2017 Eating (FIM): 5 Eating (QC): 5 Groomin Oral Hygiene (QC): 5 Bathing(FIM): 5 Shower/Bathe Self (QC): 4 Upper Body Dressing(FIM): 5 Upper Body Dressing (QC): 4 Lower Body Dressing(FIM): 5 Lower Body Dressing (QC): 4 On/Off Footwear (QC): 4 Toileting(FIM): 5 Toileting Hygiene (QC): 4 Transfers (B,C,W/C) (FIM): 5 Toilet/Commode Transfer(FIM): 5 Toilet/Commode Transfer (QC): 4 Tub Transfer(FIM): 5 Shower Transfer(FIM): 4 Additional Goals: 1-Demonstrate ADL Tasks, 2-Verbalize Understanding, 3- ImproveStrength/Carlos A 1=Demonstrate adherence to instructed precautions during ADL tasks. 2=Patient will verbalize/demonstrate understanding of assistive devices/ modifications for ADL. 3=Patient will improve strength/tolerance for activity to enable patient to perform ADL's. OT Education/Plan Problem List/Assessment Assessment: Decreased Activ Tolerance, Decreased UE Strength, Dependent Transfers, Impaired Bed Mobility, Impaired Funct Balance, Impaired I ADL's, Impaired Self-Care Skills, Restricted Funct UE ROM Discharge Recommendations Plan/Recommendations: Continue POC Therapy D/C Recommendations: Home w/ Family Support, Occupational Therapy Home Care, Scheduled Assistance Equpiment Recommendations-D/C: Hip Kit Comment OT and PT co-treated at various times throughout treatment. PT focused on mobility, LE strength and movement, endurance, while OT focused on UE strength, ADL ability, and overall education for safety. Both disciplines worked together to ensure safety and to facilitate education for rehab stay, as pt. fatigued, and had transferred here via private vehicle from [place], [place]. Pt. fatigued and tired, and unable to tolerate multiple disciplines on their own. Barriers to Progress Pt. demonstrates significant weakness Target Placement Home with spouse and daughter Patient/Family Goals To return home as soon as possible. Treatment Plan/Plan of Care Treatment,Training & Education: Yes Patient would benefit from OT for education, treatment and training to promote independence in ADL's, mobility, safety and/or upper extremity function for ADL' s. Plan of Care: ADL Retraining, Caregiver Training, Functional Mobility, Group Exercise/Act as Ind, UE Funct Exercise/Act Treatment Duration: Aug 13, 2017 Frequency: At least 5-7 days/Wk (IRF) Estimated Hrs Per Day: 1.5 hours per day Agreement: Yes Rehab Potential: Fair Time/GCodes Start Time: 13:30 Stop Time: 15:40 Total Time Billed (hr/min): 95 Billed Treatment Time [id number] OT eval [id number] FA x 30minutes [id number] PT eval no charge [id number] co-treat with PT (please see above for designated roles) [id number] Speech therapy evaluation no charge [id number] co-treat with PT (please see above for designated roles) 1, EVH x 15minutes, FA x 30minutes, ADL x 50minutes JAILYN ASHER OT Jul 16, 2017 15:51
--- NOTE | 2017-07-16 16:01 | Physical Therapy Evaluation ---
PT Evaluation-General Medical Diagnosis Admission Date 07/16/17 Medical Diagnosis: s/p Bowel Perforation with peritonitis Onset Date: April 25, 2017 Therapy Diagnosis Therapy Diagnosis: weakness; abn gait Height/Weight Height (Feet): 5 Height (Inches): 8.00 Weight (Pounds): 173 Weight (Ounces): 9.6 Precautions Precautions/Isolations: Fall Prevention, Standard Precautions, Pressure Ulcer Referral Physician: Martinez Reason for Referral: Evaluation/Treatment Medical History Pertinent Medical History: Arthritis, HTN, Hypothroidism Current History Pt has a lengthy medical stay that began in late March 2017. It began with bowel perforation that resulted in fecal peritonitis. She has endured multiple surgical procedures in the abdomen and currently has a diverting colostomy. She was vent dependent for a lengthy time. She was in ICU at [facility] for several days, she was transferred to [facility] due to the Ventilator support. While at [facility], she was transferred at least once to [facility] in [place] for acute care. She presented to our unit this date from [facility] in [place]. Over the course of this hospital stay that began in late March, she has lost a significant amount of weight and strength. 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 Her spouse is disabled. PT Evaluation-Current Subjective Pt expresses she is very happy to be here. She feels she is 1 step closer to getting home. She is tearful often, noting, "I cry alot." She also notes she has had some depression since this has began. She reports she is eager to start therapy and get stronger so she can discharge home. Pain Numeric Pain Scale: 0-No Pain Location: No Pain Reported Pt/Family Goals Her goal is to get stronger so she can return home as before. Objective Patient Orientation: Person, Place, Time, Situation Attachments: Colostomy/Ileostomy ROM/Strength ROM Lower Extremities PROM B LE's WNL all planes Strenght Lower Extremities B LE strength: grossly 2/5 throughout. She is able to actively contract all major muscle groups of the LE but unable to move through a full range of motion. She also demonstrates rapid fatigue when moving through more than 1-2 reps of each motion. Integumentary/Posture Integumentary Refer to nursing notes; however, note she is at risk of skin breakdown due to intensity of medical issues and decreased soft tissue covering bony prominences. Bowel Incontinence: No (colostomy) Bladder Incontinence: Reynolds Cath Posture Unable to assess as she is unable to sit or stand unsupported. Neuromuscular (Tone, Coordination, Reflexes) All appears intact and functional at this time. We may find slightly decreased coordination but will likely be due to muscular weakness. Sensory Vision: Functional Hearing: Functional Hand Dominance: Right Sensation Right Lower Extremit: Intact Sensation Left Lower Extremity: Intact Transfers Functional [place] Measure 0=Not Assessed/NA 4=Minimal Assistance 1=Total Assistance 5=Supervision or Setup 2=Maximal Assistance 6=Modified [place] 3=Moderate Assistance 7=Complete IndependenceIRFPAI Quality Coding Scale 6 Independent with activity with or without an assistive device 5 Patient requires set up or clean up by helper. Patient completes activity by themselves 4 Supervision or touching assist (CGA). [place] provide cues , steadying assist 3 The helper provides less than half the effort to complete the activity 2 The helper provides more than half the effort to complete the activity 1 Dependent. The helper does all the effort to complete an activity 7 Patient refused to complete or attempt activity 9 The patient did not perform the activity before the current illness or injury 88 Not attempted due to Medical conditions or safety concerns Transfers (B, C, W/C) (FIM): 1 Scootin Rollin (however, pt able to reach with UE's and attempts to push with legs with positioning and cuing. ) Roll Left to Right (QC): 1 Supine to/from Sit: 1 Sit to/from Stand: 1 bed t/f WC(FIM only if WC use): 1 Sit to Lying (QC): 1 Lying to Sitting/Side of Bed(Q: 1 Sit to Stand (QC): 1 Chair/Wzv-ir-Pemop Xfer(QC): 1 Car Transfer (QC): 1 (Dependent to transfer out of car. ) Pt is able to follow cues to attempt to participate but is dependent for all transfers and bed mobility. Gross U/LE weakness make her efforts insufficient to actively move for position or position change. However, note, pt actively follows cues and attempts to participate as much as she can. Gait Does the Patient Walk?: No and Walking Goal IS indicated Anticipated Mode of Locomotion: Walk Gait (FIM): 0 (unable) Walk 10 feet (QC): 88 Walk 50 ft with 2 Turns(QC): 88 Walk 150 ft (QC): 88 Walking 10ft/uneven surface-QC: 88 Comments/Gait Description Unable at this time. Wheelchair Training Does the Pt Use a Wheelchair?: Yes Wheelchair (FIM): 1 (dependent) Wheel 50 ft with 2 turns (QC): 1 Wheel 150 ft (QC): 1 Type of Wheelchair: Manual Stairs Stairs (FIM): 0 1 Step (curb) (QC): 88 4 Steps (QC): 88 12 Steps (QC): 88 If not tested on admit;explain Unable to stand to attempt stairs. Balance Sitting Static: Poor Sitting Dynamic: Poor Picking up an Object (QC): 88 Special Test Comments Dependent for sitting EOB with poor trunk control and balance ability. Treatment Co Treat with OT. Co treated due to the extent of her functional weakness and requires skilled intervention of both an OT and PT. OT addressed self care and ADL"s whilst PT addressed rolling scooting and positioning in bed to participate in ADL care. Pt addressed core strength musculature to promote moving in bed and trunk control for participation in self care. Assessment/Needs Pt presents post lengthy acute hospital stay with complicated medical issues. She is extremely weak and deconditioned due to this and is currently dependent for all mobility and self care. Strength and balance as well as functional activity tolerance are significantly limited. She is an excellent candidate for skilled PT intervention to address her deficits to ultimately allow her to return home and mobilize with little to no assist from others. Expect a lengthy stay due to her recent medical issues but feel she has excellent potential to make functional gains. EVMod intensity due to the abdominal peritonitis, lengthy ventilator dependence. Systems affected: strength all extremities, activity tolerance, dependent for transfers, unable to ambulate. Her status is evolving as she still has medical issues that need to be managed. Rehab Potential: Good PT Short Term Goals Short Term Goals Time Frame: Jul 30, 2017 Transfers (B,C,W/C) (FIM): 3 Gait (FIM): 2 Distance (FIM): 1=906-36 ft Gait Assistive Device: FWW PT Manager Scheduling Goals Alf Goals PT Manager Scheduling Goals Time Frame: Aug 13, 2017 Transfers (B,C,W/C) (FIM): 6 Sit to Lying (QC): 6 Lying-Sitting on Side/Bed(QC): 6 Sit to Stand (QC): 6 Roll Left to Right (QC): 6 Chair/Gkp-ya-Tmdzp Xfer(QC): 6 Car Transfer (QC): 5 Does the Patient Walk: No and Walking Goal IS indicated Gait (FIM): 6 Gait distance (FIM): 3=150 ft Walk 10 feet (QC): 6 Walk 10ft-Uneven Surface(QC): 6 Walk 50ft with 2 Turns (QC): 6 Walk 150 ft (QC): 6 Gait Level of Assist: 6 Gait Assistive Device: FWW Stairs (FIM): 5 # of Steps: 8 1 Step (curb) (QC): 6 4 Steps (QC): 6 12 Steps (QC): 5 Stairs Level Of Assist: 6 Picking up an Object (QC): 5 All goals set with plan for patient to return home and care for herself at a mod indep level. PT Plan Problem List Problem List: Activity Tolerance, Functional Strength, Safety, Balance, Gait, Transfer, Bed Mobility Treatment/Plan Treatment Plan: Continue Plan of Care Treatment Plan: Bed Mobility, Education, Functional Activity Carlos A, Functional Strength, Group Therapy, Gait, Safety, Therapeutic Exercise, Transfers Treatment Duration: Aug 13, 2017 Frequency: At least 5-7 days/Wk (IRF) Estimated Hrs Per Day: 1.5 hours per day Patient and/or Family Agrees t: Yes Safety Risks/Education Patient Education: Transfer Techniques, Reviewed Precautions, Safety Issues Teaching Recipient: Patient Teaching Methods: Discussion Response to Teaching: Reinforcement Needed Discharge Recommendations Therapy D/C Recommendations: Physical Therapy Home Care Time/GCodes Time In: 1415 Time Out: 1430 (PT [id number] co treat OT FA [id number] co treat OT FA 25) Total Billed Treatment Time: 50 Total Billed Treatment visit x 3 FA 25 FA 25 LILY MATTHEWS PT Jul 16, 2017 16:01
[2017-07-16 17:03] VITALS: BP 128/74
[2017-07-16 17:57] VITALS: BP 121/76
--- NOTE | 2017-07-16 19:47 | PM&R Post Admission Assessment ---
Post Admission Physician Asses The preadmission screen agrees with the post admission assessment that the patient is a good candidate for inpatient rehabilitation. The patient will have a comprehensive program of inpatient rehabilitation with a goal of maximizing level of functional independence prior to discharge home with spouse. The patient will have PT/OT ninety minutes per day, each discipline, five days a week for gait, strengthening, conditioning, balance, ADLs, any patient/family/caregiver training as necessary. Speech therapy to do cognitive and swallow assessment and treat as indicated. Rehabilitation nursing to assist with bowel,colostomy, bladder,Reynolds catheter care, skin, wound care, medication administration, pain management. Planning Advisor to assist with discharge planning, community reentry. Heparin SubQ and SCD's for DVT prophylaxis.Resp Therapy to assist with resp treatments and Trach care. She appears to be well motivated to participate in three hours of therapy a day. She should be able to tolerate three hours of therapy a day from a medical and surgical standpoint. She should benefit from the three hours of therapy a day. She has a reasonable discharge plan, reasonable discharge rehabilitation goals and a supportive family. She has various comorbidities that need to be closely monitored with medications and treatments adjusted on a daily basis as needed. 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 Risks for this patient include: 1. Fall 2. Fracture 3. DVT 4. Pulmonary embolism 5. Wound infection 6. Skin breakdown 7. Contractures 8. Poorly controlled pain 9. Urinary retention 10. UTI 11. Respiratory infection 12. Aspiration 13. Poorly controlled HTN 14 Recurrent resp failure Estimated Length of Stay: 21days Prognosis: Rehab prognosis appears good for goal of discharge home with spouse modified independent to supervision for ADLs and mobility skills. TRIP SIERRA MD Jul 16, 2017 19:47
[2017-07-16] MEDS: LACTOBACILLUS Acidoph/Bulgar (LACTINEX/FLORANEX) TAB PO SCH (19:48)
--- NOTE | 2017-07-16 20:19 | HISTORY AND PHYSICAL ---
DATE OF SERVICE: 07/16/2017 CHIEF COMPLAINT: Difficulty with walking. HISTORY OF PRESENT ILLNESS: The patient is a 61-year-old female who was originally admitted to [facility] on 04/25/2017 due to sigmoid perforation with fecal peritonitis. The patient had laparoscopic Jose R's procedure or sigmoid resection with end colostomy, developed ventilator failure postoperatively. She required prolonged ventilatory support including tracheostomy to facilitate her weaning from the mechanical ventilation. She developed multiple intraabdominal abscesses as well. These were drained percutaneously. She still needed to be weaned off mechanical ventilation and she was referred to [facility] in [place] for weaning and ongoing care, plus her nutrition was managed at that time by nasal jejunal feeding and she was discharged on 05/22/2017. She went on to be weaned from ventilator. Her trach is plugged. Bladder is still managed with indwelling Reynolds catheter. She is tolerating room air. She is tolerating mechanical soft diet with thin liquids; however, she developed profound weakness, particularly in her lower legs, which is felt to be due to critical illness myopathy. 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 Currently she requires assistance for ADLs and mobility skills. Bowel managed with colostomy. Bladder managed with indwelling Reynolds catheter. Dr. Santos and hospitalist service cared for her during her prior stay at [facility]. Hospitalist from [place] discussed case with Dr. Henriquez today on day of transfer. Her commercial insurance has approved her stay here.She is max assist for transfers and nonambulatory. PAST MEDICAL HISTORY: She has had cardiac ablation for supraventricular tachycardia and currently on antiarrhythmic drug. Hypertension, chronic constipation, arthritis, hypothyroidism, surgical hypothyroidism replacement. PAST SURGICAL HISTORY: As per above as well as appendectomy, cholecystectomy, hysterectomy, carpal tunnel release, renal stent, thyroidectomy. ALLERGIES: CIPRO, LISINOPRIL. FAMILY HISTORY: Noncontributory. SOCIAL HISTORY: She is and lives with her in a 1-story home in [place]. 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 Her employer is [employer] and she has [employer] insurance. Her family physician is Dr. Horvath. She had been active and employed prior to this, did not use a gait aid. REVIEW OF SYSTEMS: A 10-point review of systems is significant for profound weakness in her legs. Denies any sensory loss. History of irregular heartbeat controlled with medication and ablation. Depression, on Celexa. She is on heparin subcutaneous for DVT prophylaxis. MEDICATIONS: ASA 81 mg p.o. daily, Wellbutrin 300 mg p.o. daily, Celexa 20 mg p.o. daily, furosemide 60 mg p.o. daily, Losartan 100 mg p.o. daily, Risperdal 0.25 mg p.o. daily, Protonix 20 mg p.o. daily, K-Dur 40 mEq p.o. daily, prednisone 10 mg p.o. daily for 3 days and 7.5 mg p.o. daily for 3 days, then 5 mg p.o. daily. Levothyroxine 100 mcg p.o. daily, Rythmol 225 mg p.o. q.8 hours, Xanax 0.5 mg p.o. t.i.d., MiraLax 17 grams p.o. each day at bedtime, Lactinex 1 tablet chewable p.o. before meal, heparin subcutaneous 5000 units q.8 hours, Tylenol 500 mg p.o. q.4 hours for mild pain, Atrovent treatments q.4 hours p.r.n. dyspnea, Dulcolax tablets 5-10 mg p.o. daily p.r.n. constipation, OxyIR 10 mg p.o. q.4 hours p.r.n. severe pain, Chloraseptic spray q.2 hours p.r.n. sore throat. PHYSICAL EXAMINATION: GENERAL: Significant for a pleasant female appearing her stated age, alert and oriented, in no acute distress, lying in bed. BMI is 18. VITAL SIGNS: Pulse is 98. She is afebrile. Respirations 18, blood pressure 121/76, O2 sat 99% on room air. HEENT: Vision, speech, hearing grossly intact. No oral lesion is noted. NECK: Supple without mass. Tracheostomy site is capped. HEART: Regular rhythm. LUNGS: Clear. ABDOMEN: Soft, nontender. Bowel sounds present. Her PEG tube has just been removed, dressing in place. GENITOURINARY: Indwelling Reynolds catheter to dependent drainage. MUSCULOSKELETAL: She has functional passive range of motion to all 4 extremities. NEUROLOGIC: She has profound weakness in her legs. She is unable to straight leg raise bilaterally.Strength Lower limbs generally 2/5. She is able to plantar and dorsiflex at the ankles. Sensation is grossly intact to touch. She has functional passive range of motion in both upper limbs. Coordination impaired in Upper limbs.Strength upper limbs 2+/5 elbow flexion She is able to bring her rt hand to mouth and she is rt handed but fatiques easily Cognition is grossly intact. IMPRESSION: 1. 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 Ng. 2. Status post PEG tube removal, status post weaning from vent, now with trach capped. 3. Indwelling Reynolds catheter. 4. Surgical hypothyroidism, on replacement. 5. History of supraventricular tachycardia, status post ablation and on Rythmol. 6. Hypertension, controlled with medication. 7. Chronic constipation, on medications. 8. Status post colostomy as per above. PLAN: The patient will have a comprehensive program of inpatient rehabilitation with goal of maximizing level of functional independence prior to discharge home with spouse. The patient will have PT, OT 90 minutes per day each discipline when not being seen by speech therapy for gait strengthening, conditioning, balance, ADLs, any patient, family caregiver training necessary, any adaptive equipment and training necessary. Speech therapy to do cognitive and swallow assessment and treat as indicated 3-5 times a week for 30-45 minutes per day for 2 weeks. Respiratory therapy to assist with respiratory treatment administration, trach care. Consult Dr. Santos and Hernandez who have followed the patient in the past. Therapy with cardiac and fall precautions. Monitor O2 sats. Social work to assist with discharge planning, community reentry. Rehabilitation nursing to assist with colostomy care, Reynolds catheter care, skin and wound care, pain management, medication administration. ESTIMATED LENGTH OF STAY: Two weeks. PROGNOSIS: Rehab prognosis appears good with a goal of discharging home with spouse, modified independent to supervision for ADLs and mobility skills. DIET: Mechanical soft with thin liquids. CODE STATUS: Full code. Job ID: [id number] DocumentID: [id number] Dictated Date: 07/16/2017 19:30:03 Plastic Mixer Date: 07/16/2017 20:18:36 Dictated By: TRIP HENRIQUEZ MD [facility]
[2017-07-16] MEDS: ALPRAZolam 0.5 MG (XANAX) TAB PO SCH (21:01)
[2017-07-16] MEDS: POLYETHYLENE GLYCOL 17 GM (MIRALAX) PACK PO SCH (21:02)
[2017-07-16] MEDS: PROPAFENONE 150 MG (RYTHMOL) TABLET PO SCH (21:03)
[2017-07-17 05:31] VITALS: BP 148/73
[2017-07-17] MEDS: predniSONE 10 MG TAB PO SCH (06:27)
[2017-07-17] MEDS: LACTOBACILLUS Acidoph/Bulgar (LACTINEX/FLORANEX) TAB PO SCH ×3 (06:27→18:30)
[2017-07-17] MEDS: LEVOTHYROXINE 100 MCG (LEVOTHROID) TAB PO SCH (06:27)
[2017-07-17] MEDS: PANTOPRAZOLE 20 MG TABLET (PROTONIX) PO SCH (06:27)
[2017-07-17] MEDS: KCL 20 MEQ TAB (K-DUR) PO SCH (06:27)
[2017-07-17] MEDS: PROPAFENONE 150 MG (RYTHMOL) TABLET PO SCH ×3 (06:39→21:02)
[2017-07-17] MEDS: LOSARTAN 50 MG (COZAAR) TAB PO SCH (09:04)
[2017-07-17] MEDS: buPROPion SR 150 MG (WELLBUTRIN SR) TAB PO SCH (09:04)
[2017-07-17] MEDS: risperiDONE 0.25 MG (RisperDAL) TAB PO SCH (09:04)
[2017-07-17] MEDS: ALPRAZolam 0.5 MG (XANAX) TAB PO SCH ×3 (09:05→21:01)
[2017-07-17] MEDS: FUROSEMIDE 20 MG (LASIX) TAB PO SCH (09:05)
[2017-07-17] MEDS: ASPIRIN E.C. 81 MG (ECOTRIN) TAB PO SCH (09:05)
--- NOTE | 2017-07-17 09:13 | Physical Therapy Daily Note ---
PT Daily Note-Current Subjective Patient in bed pre tx, agrees to PT, OT is already working with her. PT will be co-treating with OT this morning. Appearance Patient in wheelchair post tx, OT still working with her, sitting on stephanie lift sling and donut. Mental Status Patient Orientation: Normal For Age Attachments: Colostomy/Ileostomy Transfers Functional [place] Measure 0=Not Assessed/NA 4=Minimal Assistance 1=Total Assistance 5=Supervision or Setup 2=Maximal Assistance 6=Modified [place] 3=Moderate Assistance 7=Complete IndependenceIRFPAI Quality Coding Scale 6 Independent with activity with or without an assistive device 5 Patient requires set up or clean up by helper. Patient completes activity by themselves 4 Supervision or touching assist (CGA). [place] provide cues , steadying assist 3 The helper provides less than half the effort to complete the activity 2 The helper provides more than half the effort to complete the activity 1 Dependent. The helper does all the effort to complete an activity 7 Patient refused to complete or attempt activity 9 The patient did not perform the activity before the current illness or injury 88 Not attempted due to Medical conditions or safety concerns Transfers (B, C, W/C) (FIM): 1 Scootin Rollin Supine to/from Sit: 1 Sit to/from Stand: 1 Bed to/from Chair: 1 Patient had to perform 2 stand pivot transfers and sit to stand several times for dressing. Treatments Co-treated with OT for showering. PT performed bed mobility, transfers, and assisted patient with trunk balance and weight shifting during her bath/shower. Assessment Current Status: Poor Progress no change in mobility PT Short Term Goals Short Term Goals Time Frame: Jul 30, 2017 Transfers (B,C,W/C) (FIM): 3 Gait (FIM): 2 Distance (FIM): 3=509-34 ft Gait Assistive Device: FWW PT Saw Cleaner Goals Prison Goals PT Prison Goals Time Frame: Aug 13, 2017 Transfers (B,C,W/C) (FIM): 6 Sit to Lying (QC): 6 Lying-Sitting on Side/Bed(QC): 6 Sit to Stand (QC): 6 Rollin (however, pt able to reach with UE's and attempts to push with legs with positioning and cuing. ) Roll Left to Right (QC): 6 Chair/Aps-eb-[id number] Xfer(QC): 6 Car Transfer (QC): 5 Does the Patient Walk: No and Walking Goal IS indicated Gait (FIM): 6 Gait distance (FIM): 3=150 ft Walk 10 feet (QC): 6 Walk 10ft-Uneven Surface(QC): 6 Walk 50ft with 2 Turns (QC): 6 Walk 150 ft (QC): 6 Gait Level of Assist: 6 Gait Assistive Device: FWW Stairs (FIM): 5 # of Steps: 8 1 Step (curb) (QC): 6 4 Steps (QC): 6 12 Steps (QC): 5 Stairs Level Of Assist: 6 Picking up an Object (QC): 5 PT Plan Problem List Problem List: Activity Tolerance, Functional Strength, Safety, Balance, Gait, Transfer, Bed Mobility, ROM Treatment/Plan Treatment Plan: Continue Plan of Care Treatment Plan: Bed Mobility, Education, Functional Activity Carlos A, Functional Strength, Group Therapy, Gait, Safety, Therapeutic Exercise, Transfers Treatment Duration: Aug 13, 2017 Frequency: At least 5-7 days/Wk (IRF) Estimated Hrs Per Day: 1.5 hours per day Patient and/or Family Agrees t: Yes Safety Risks/Education Patient Education: Transfer Techniques, Correct Positioning, Safety Issues Teaching Recipient: Patient Teaching Methods: Demonstration, Discussion Response to Teaching: Reinforcement Needed Time/GCodes Time In: 800 Time Out: 900 Total Billed Treatment Time: 60 Total Billed Treatment 1 visit FA 60' Co-treated with OT for the whole 60 minutes STEPHANE KC PT Jul 17, 2017 09:13
--- NOTE | 2017-07-17 09:25 | PM & R (SOAP) Progress Note ---
Subjective Time Seen by Provider: 08:10 Subjective/Events-last exam Patient was seen in her room this AM Appreciate Therapy notes.Patient max assist to dependent for transfers Review of Systems Neurological: Weakness Objective Exam Last Set of Vital Signs Vital Signs Date Time Temp Pulse Resp B/P (MAP) Pulse Ox O2 Delivery O2 Flow Rate FiO2 07/17/17 05:31 98.6 82 20 148/73 99 Room Air Capillary Refill : I&O Intake and Output 07/18/17 00:00 Intake Total 250 ml Output Total 325 ml Balance -75 ml Intake Oral 250 ml Output Urine Total 300 ml Stool Total 25 ml General: Alert, Oriented X3, Cooperative, No Acute Distress HEENT: Atraumatic, PERRLA, EOMI, Mucous Memb Moist/Staples Neck: Supple, No JVD, Other (trach plugged) Lungs: Clear to Auscultation Heart: Regular Rate Abdomen: Normal Bowel Sounds, Soft, No Tenderness, Other (colostomy functioning ) Neuro: Other (2/5/strength both lower extremities Sensation intact Cognition intact ST assessing swallow) Other physical findings Bladder green to dependent drainage Assessment/Plan Assessment Crtical illness myopathy S/P trach now plugged S/P Peg tube removal/ S/P colostomy for perf orated bowel DR Ng HTN Chronic constipation Plan Continue PT/OT/ST F/U with hospitalist in lieu of pcp and DR Ng Team Conference next week TRIP SIERRA MD Jul 17, 2017 09:25
--- NOTE | 2017-07-17 09:28 | Occupational Ther Daily Note ---
OT Current Status-Daily Note Subjective Pt alert, sitting in bed. Pt agreed to therapy. No c/o pain, c/o fatiguing quickly. Pt c/o dizziness when initially sitting up in bed. Cleared in 3 minutes. Pt is very anxious with stand pivot transfers. Mental Status/Objective Patient Orientation: Person, Place, Time, Situation Functional [place] Measure 0=Not Assessed/NA 4=Minimal Assistance 1=Total Assistance 5=Supervision or Setup 2=Maximal Assistance 6=Modified [facility] 3=Moderate Assistance 7=Complete [place] Attachments: Colostomy/Ileostomy, Other-See Comments Trach ADL-Treatment Co treatment with OT and PT. Co treated due to pt's weakness and low fatigue level and requires skilled treatment of both OT and PT. OT addressed ADL's such as washing, rinsing, drying body, oral care, grooming, and dressing. PT addressed transfers, posture, and body mechanics while pt performed these activities. Pt requires assist x1 to sit EOB. Pt is able to grasp side of bed when sitting on EOB. Pt was able to hold onto tissue and reach to wipe nose. Functional [place] Measure 0=Not Assessed/NA 4=Minimal Assistance 1=Total Assistance 5=Supervision or Setup 2=Maximal Assistance 6=Modified [facility] 3=Moderate Assistance 7=Complete IndependenceIRFPAI Quality Coding Scale 6 Independent with activity with or without an assistive device 5 Patient requires set up or clean up by helper. Patient completes activity by themselves 4 Supervision or touching assist (CGA). [place] provide cues , steadying assist 3 The helper provides less than half the effort to complete the activity 2 The helper provides more than half the effort to complete the activity 1 Dependent. The helper does all the effort to complete an activity 7 Patient refused to complete or attempt activity 9 The patient did not perform the activity before the current illness or injury 88 Not attempted due to Medical conditions or safety concerns Grooming (FIM): 2 (Pt able to brush teeth with stabilize UE at elbow to reach mouth. Pt turns head back and forth in attempt to reach whole mouth. [place] required to rinse mouth, assist to lean forward and sustain position to spit into sink. Pt is dependent with combing hair and washing face. ) Oral Hygiene (QC): 2 (Pt able to brush teeth with stabilize UE at elbow to reach mouth. Pt turns head back and forth in attempt to reach whole mouth. [place] required to rinse mouth, assist to lean forward and sustain position to spit into sink.) Bathing (FIM): 2 (Pt completed bathing in transport shower chair. Pt use loose grasp to hold onto wash clothe. Pt was able to wash lower arms and hands but needed assistance with rest of body. Pt required helper to steady and position in shower chair while other helper washed body. ) Bathing Location: L Arm (lower arm and hand), R Arm (lower arm and hand) Shower/Bathe Self (QC): 2 (Pt completed bathing in transport shower chair. Pt use loose grasp to hold onto wash clothe. Pt was able to wash lower arms and hands but needed assistance with rest of body. Pt required helper to steady and position in shower chair while other helper washed body.) Upper Body (FIM): 1 (Pt dependent on helper to don and doff bra and shirt. Pt was able to lift each arm as sleeves were threaded.) Upper Body Dressing (QC): 1 (Pt dependent on helper to don and doff bra and shirt. Pt was able to lift each arm as sleeves were threaded.) Lower Body Dressing (FIM): 1 (Pt requires helper to don and doff all lower body clothing. Pt is able to lift each LE up to thread clothing onto feet. Pt requires max A x2 to stand up and hike clothing over hips. ) Lower Body Dressing (QC): 1 (Pt requires helper to don and doff all lower body clothing. Pt is able to lift each LE up to thread clothing onto feet. Pt requires max A x2 to stand up and hike clothing over hips. ) On/Off Footwear (QC): 1 (Pt dependent on helper to don and doff socks and shoes. Pt able to lift LE's up to initiate threading over foot.) Shower Transfer(FIM): 1 (Using rolling shower chair to transport pt to shower.) Other Treatment Oriented pt to ARU. Pt c/o vision while moving in w/c. Pt stated that couldn' t focus on objects and it felt weird. Completed massage and sensory to B hands to increase sensation and AROM for daily functional tasks. After therapy, pt in w/c as speech took over care of pt in room. All needs met. OT Short Term Goals Short Term Goals Time Frame: Jul 30, 2017 Eating(FIM): 4 Grooming(FIM): 4 Bathing(FIM): 3 Upper Body Dressing(FIM): 3 Lower Body Dressing(FIM): 3 Toileting(FIM): 3 Transfers (B,C,W/C) (FIM): 3 Toilet/Commode Transfer(FIM): 3 Shower Transfer(FIM): 3 Additional Short Term Goals: 1-Demonstrate ADL Tasks, 2-Verbalize Understanding , 3-ImproveStrength/Carlos A 1=Demonstrate adherence to instructed precautions during ADL tasks. 2=Patient will verbalize/demonstrate understanding of assistive devices/ modifications for ADL. 3=Patient will improve strength/tolerance for activity to enable patient to perform ADL's. OT Personal Care Home Administrator Goals Shelter Goals Time Frame: Aug 13, 2017 Eating (FIM): 5 Eating (QC): 5 Groomin Oral Hygiene (QC): 5 Bathing(FIM): 5 Shower/Bathe Self (QC): 4 Upper Body Dressing(FIM): 5 Upper Body Dressing (QC): 4 Lower Body Dressing(FIM): 5 Lower Body Dressing (QC): 4 On/Off Footwear (QC): 4 Toileting(FIM): 5 Toileting Hygiene (QC): 4 Transfers (B,C,W/C) (FIM): 5 Toilet/Commode Transfer(FIM): 5 Toilet/Commode Transfer (QC): 4 Tub Transfer(FIM): 5 Shower Transfer(FIM): 4 Additional Goals: 1-Demonstrate ADL Tasks, 2-Verbalize Understanding, 3- ImproveStrength/Carlos A 1=Demonstrate adherence to instructed precautions during ADL tasks. 2=Patient will verbalize/demonstrate understanding of assistive devices/ modifications for ADL. 3=Patient will improve strength/tolerance for activity to enable patient to perform ADL's. OT Education/Plan Discharge Recommendations Plan/Recommendations: Continue POC Treatment Plan/Plan of Care Patient would benefit from OT for education, treatment and training to promote independence in ADL's, mobility, safety and/or upper extremity function for ADL' s. Plan of Care: ADL Retraining, Caregiver Training, Functional Mobility, Group Exercise/Act as Ind, UE Funct Exercise/Act Treatment Duration: Aug 13, 2017 Frequency: At least 5-7 days/Wk (IRF) Estimated Hrs Per Day: 1.5 hours per day Agreement: Yes Rehab Potential: Good Time/GCodes Start Time: 08:00 Stop Time: 09:15 Total Time Billed (hr/min): 75 Billed Treatment Time 1 visit, ADL 5 (75 minutes) Co treatment time [id number]. Individual time [id number]. LILY INMAN Jul 17, 2017 09:28
--- NOTE | 2017-07-17 09:32 | Individualized Plan of Care ---
Individualized Plan of Care Rehab Nursing IPOC Order Admission Date Jul 16, 2017 at 16:30 Current Orders Orders Request Ot Evaluate & Treat (07/16/17 14:04) Admission-Acute Rehab Unit (07/16/17 15:11) Vital Signs: Routine 08,16,00 (07/16/17 15:11) Sequential Compression Device 08,20 (07/16/17 15:11) Social Service (07/16/17 15:11) Rehab Nursing Orders-Ipoc (07/16/17 15:11) Physical Therapy Rehab Orders (07/16/17 15:11) Occupational Therapy Rehab Ord (07/16/17 15:11) Speech Therapy Rehab Orders (07/16/17 15:11) General/Regular (07/16/17 Dinner) Rt Request For Service (07/16/17 15:11) Intake & Output Shift Assessme 06,14,22 (07/16/17 15:11) Precautions (Aru) (07/16/17 15:11) Weekly Weight (Lbs) WEEK (07/16/17 15:11) Consult Physician (07/16/17 15:16) Nursing Communication (Patient (07/16/17 15:18) Consult Physician (07/16/17 15:18) Patient Visit (07/16/17 ) Speech Sound Lang Comp (07/16/17 ) Alprazolam Tablet (Xanax Tablet) (07/16/17 21:00) Aspirin Enteric Coated Tablet (Ecotrin T (07/17/17 09:00) Bupropion Sr 12 Hr Tablet (Wellbutrin Sr (07/17/17 09:00) Citalopram Tablet (Celexa Tablet) (07/17/17 09:00) Heparin Injection (Heparin Injection) (07/16/17 15:30) Furosemide Tablet (Lasix Tablet) (07/17/17 09:00) Lactobacillus/Bulgaricus Tab (Lactinex (07/16/17 16:00) Pantoprazole Tablet (Protonix Tablet) (07/17/17 07:00) Levothyroxine Tablet (Synthroid Tablet) (07/17/17 06:30) Losartan Tablet (Cozaar Tablet) (07/17/17 09:00) Polyethylene Glycol Powder Pkt (Miralax (07/16/17 21:00) Potassium Chloride (Tablet) (K Dur Table (07/17/17 07:00) Prednisone Tablet (Deltasone Tablet) (07/17/17 07:00) Risperidone Tablet (Risperdal Tablet) (07/17/17 09:00) Acetaminophen Tablet (Tylenol Tablet) (07/16/17 15:30) Ipratropium 0.02% Neb Solution (Atrovent (07/16/17 15:30) Bisacodyl Tablet (Dulcolax Tablet) (07/16/17 15:30) Oxycodone Immediate Rel Tablet (Oxyir Ta (07/16/17 15:30) Phenol Throat Mentone (Chloraseptic [place]one) (07/16/17 15:30) Propafenone (Non-Formulary) (Rythmol (No (07/16/17 22:00) Pharmacy Communication (Pharmacy Communi (07/16/17 15:30) Nursing Communication (Patient (07/16/17 15:41) Patient Visit (07/16/17 ) Pt Eval Moderate Complexity (07/16/17 ) Functional Activities, Ea 15 (07/16/17 ) Ambulate TID (07/16/17 18:48) Sequential Compression Device 08,20 (07/16/17 18:48) Dvt/Vte Risk - Notifiy Physici (07/16/17 18:48) Patient Visit (07/17/17 ) Dysphagia Evaluation Std (07/17/17 ) Rehab Nursing Orders: Diseage Management, Edu in Press Rel Techn, Hydration Management, Nutrition Management, Pain Management Other Nursing Orders: Reynolds catheter care and colostomy care PT IPOC Problem List: Activity Tolerance, Functional Strength, Safety, Balance, Gait, Transfer, Bed Mobility, ROM Treatment Plan: Continue Plan of Care Bed Mobility, Education, Functional Activity Carlos A, Functional Strength, Group Therapy, Gait, Safety, Therapeutic Exercise, Transfers Treatment Duration: Aug 13, 2017 Frequency: At least 5-7 days/Wk (IRF) Estimated Hrs Per Day: 1.5 hours per day OT IPOC Problems: Decreased Activ Tolerance, Decreased UE Strength, Dependent Transfers , Impaired Bed Mobility, Impaired Funct Balance, Impaired I ADL's, Impaired Self -Care Skills, Restricted Funct UE ROM Plan of Care: ADL Retraining, Caregiver Training, Functional Mobility, Group Exercise/Act as Ind, UE Funct Exercise/Act Treatment Duration: Aug 13, 2017 Frequency: At least 5-7 days/Wk (IRF) Estimated Hrs Per Day: 1.[address] IPOC Speech Therapy Treatment Plan: Discontinue ST Frequency: Modified Program (IRF) Estimated Hrs Per Day: .5 hour per day Physician IPOC Medical Issues being managed closely and that require the 24 hour availability of a physician:HTN Wound care Trach care Reynolds catheter care profound weakness Chronic constipation SVT currently on Rythmol s/p ablation procedure Medical Issues: Bowel/Bladder Function, DVT Prophylaxis, Falls Precautions, Fluid/Electrolyte/Nutrition Balance, Infection Protection, Pain Management, Swallowing Precautions, Wound Care, Other (List) (as per above) Brief Synthesis of Preadmission Screen, Post-Admission Evaluation, and Therapy Evaluations: 61 yo female who had been Independent and 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 Hospitalist service Russ Ng following patient. Medical Prognosis: good Anticipated Length of Stay: 917 Rehab Goals Modified Independent for adls and mobility skills as well as colostomy care. Anticipated discharge destinat: Home with SO and [facility] TRIP SIERRA MD Jul 17, 2017 09:32
--- NOTE | 2017-07-17 10:11 | ST Dysphagia Evaluation ---
Speech Evaluation-General Medical Diagnosis s/p Bowel Perforation with Peritonitis Onset Date: April 25, 2017 Therapy Diagnosis Therapy Diagnosis: Oropharyngeal Swallow WFL Precautions Precautions/Isolations: Aspiration, Fall Prevention, Standard Precautions, Pressure Ulcer Referral Referring Physician: Dr. Shoaib Henriquez Reason for Referral: Evaluation/Treatment Clinical Bedside Swallowing Evaluation Medical History Pertinent Medical History: Arthritis, HTN, Hypothroidism Reviewed History: Yes Social History Home: Single Level Current Living Status: Significant Other Speech PLF/Current-Dysphagia Prior Level of Function The patient denied challenges with swallowing prior to hospitalization. Per patient, she consumed a regular diet with thin liquids at home. Subjective The patient was recently admitted to [facility] following a bowel perforation. The patient had a PEG tube placed initially, however, it was removed on 07/11/17. The patient was admitted to our facility with a mechanical soft and thin liquid diet. The patient denied signs/symptoms of aspiration with the diet consistency she is currently consuming. The patient greeted the clinician appropriately and was agreeable to participation in the dysphagia evaluation. Cognitive Status Patient Orientation: Person, Place, Time, Situation Oral Motor Skills Dentition: Natural Current Food Consistancy: Mechanical Soft, Thin Liquids Ability to Follow Directions: Excellent Oral Expression Ability: No Impairment Tracheostomy Type: Cuffed (Deflated.), Portex (Size #6, The tracheostomy is currently capped.) Voice Voice Phonatory-Based Quality: Weak Voice Pitch: Normal Voice Loudness: Mildly Soft/Quiet Face Facial Symmetry: Symmetrical Oral-Facial Assessment Oral-Facial Dentition: Normal Labial Seal Description: Normal Smile: Normal Puff Cheeks: Normal Lingual Protrusion: Normal Lingual ROM: Normal Lingual Strength: Normal Pharynx Velopharyngeal Move.: Normal Volitional Dry Swallow: Yes Dysphagia Evaluation Consistencies Presented: Regular, Thin Liquid, Pureed - No oral impairments were noted upon swallowing. - No pharyngeal impairments were noted throughout the evaluation. - No signs/symptoms of aspiration were demonstrated with multiple boluses of thin liquid via straw, puree, or solid consistencies tested. The patient's vocal quality remained clear throughout the session. Dietary Recommendations: Regular Liquid Recommendations: Thin Swallowing Precautions: Alternate Liquids/Solids, Small Bites and Sips, Sitting Upright 90 Degrees - Consume more frequent, small meals (as tolerated). - Crush large pills and place in puree for administration. Dysphagia Evaluation Summary The patient displays an oropharyngeal swallow function grossly WNL. Speech Short Term Goals Short Term Goals Short Term Goals 1. The patient will demonstrate dysphagia strengthening exercises with 90% accuracy, independently. Time Frame-STG: Five Days Speech Dietary Aide Goals [facility] Goals 1. The patient will tolerate the least restrictive diet without signs/symptoms of aspiration or laryngeal penetration. Time Frame: One Week Speech-Plan Treatment Plan Speech Therapy Treatment Plan: Continue Plan of Care Continue skilled speech pathology to target swallowing safety and strengthening. Frequency: Modified Program (IRF) Estimated Hrs Per Day: .5 hour per day Rehab Potential: Good Safety Risks/Education Teaching Recipient: Patient Teaching Methods: Demonstration, Discussion Response to Teaching: Verbalize Understanding Education Topics Provided: Results, Recommendations, Plan of Care Time Speech Therapy Time In: 09:15 Speech Therapy Time Out: 09:45 Total Billed Time: 30 Billed Treatment Time 1, DARRIAN DICKERSON Jul 17, 2017 10:11
--- NOTE | 2017-07-17 13:32 | Physical Therapy Daily Note ---
PT Daily Note-Current Subjective Pt was lying in bed prior to tx and agreeable to therapy. Pt was lying in bed with nurse call, tray, all needs in reach. Pain Numeric Pain Scale: 6 Location Body Site: Pelvic (sore "tailbone") Pain Description: Ache Mental Status Patient Orientation: Normal For Age Attachments: Colostomy/Ileostomy, Reynolds Catheter, IV Transfers Functional [place] Measure 0=Not Assessed/NA 4=Minimal Assistance 1=Total Assistance 5=Supervision or Setup 2=Maximal Assistance 6=Modified [place] 3=Moderate Assistance 7=Complete IndependenceIRFPAI Quality Coding Scale 6 Independent with activity with or without an assistive device 5 Patient requires set up or clean up by helper. Patient completes activity by themselves 4 Supervision or touching assist (CGA). [place] provide cues , steadying assist 3 The helper provides less than half the effort to complete the activity 2 The helper provides more than half the effort to complete the activity 1 Dependent. The helper does all the effort to complete an activity 7 Patient refused to complete or attempt activity 9 The patient did not perform the activity before the current illness or injury 88 Not attempted due to Medical conditions or safety concerns Exercises Supine Ex: Ankle pumps, Quad Set, Glut sets, Heel Slides, Short Arc Quads, Straight leg raise Supine Reps: 20 Treatments Pt completed supine exercises with support and cues to increase LE functional strength. Assessment Current Status: Good Progress Pt completed all supine exercises with support and cues. Pt became tearful at seeing her legs move and using muscles. PT Short Term Goals Short Term Goals Time Frame: Jul 30, 2017 Transfers (B,C,W/C) (FIM): 3 Gait (FIM): 2 Distance (FIM): 0=274-19 ft Gait Assistive Device: FWW PT Esthetician Makeup Artist Goals Chcf Goals PT Esthetician Makeup Artist Goals Time Frame: Aug 13, 2017 Transfers (B,C,W/C) (FIM): 6 Sit to Lying (QC): 6 Lying-Sitting on Side/Bed(QC): 6 Sit to Stand (QC): 6 Rollin Roll Left to Right (QC): 6 Chair/Nuw-cu-Ufyqe Xfer(QC): 6 Car Transfer (QC): 5 Does the Patient Walk: No and Walking Goal IS indicated Gait (FIM): 6 Gait distance (FIM): 3=150 ft Walk 10 feet (QC): 6 Walk 10ft-Uneven Surface(QC): 6 Walk 50ft with 2 Turns (QC): 6 Walk 150 ft (QC): 6 Gait Level of Assist: 6 Gait Assistive Device: FWW Stairs (FIM): 5 # of Steps: 8 1 Step (curb) (QC): 6 4 Steps (QC): 6 12 Steps (QC): 5 Stairs Level Of Assist: 6 Picking up an Object (QC): 5 PT Plan Problem List Problem List: Activity Tolerance, Functional Strength, Safety, Balance, Gait, Transfer, Bed Mobility, ROM Treatment/Plan Treatment Plan: Continue Plan of Care Treatment Plan: Bed Mobility, Education, Functional Activity Carlos A, Functional Strength, Group Therapy, Gait, Safety, Therapeutic Exercise, Transfers Treatment Duration: Aug 13, 2017 Frequency: At least 5-7 days/Wk (IRF) Estimated Hrs Per Day: 1.5 hours per day Patient and/or Family Agrees t: Yes Safety Risks/Education Patient Education: Correct Positioning, Safety Issues Teaching Recipient: Patient Teaching Methods: Demonstration, Discussion Response to Teaching: Verbalize Understanding, Reinforcement Needed Time/GCodes Time In: 1300 Time Out: 1330 Total Billed Treatment Time: 30 Total Billed Treatment 1 visit EX 30 min STEPHANE KC PT Jul 17, 2017 13:32
[2017-07-17 19:00] VITALS: BP 125/74
[2017-07-17] MEDS: POLYETHYLENE GLYCOL 17 GM (MIRALAX) PACK PO SCH (21:02)
[2017-07-18 05:56] VITALS: BP 135/66
[2017-07-18] MEDS: KCL 20 MEQ TAB (K-DUR) PO SCH (06:31)
[2017-07-18] MEDS: PANTOPRAZOLE 20 MG TABLET (PROTONIX) PO SCH (06:31)
[2017-07-18] MEDS: LACTOBACILLUS Acidoph/Bulgar (LACTINEX/FLORANEX) TAB PO SCH ×3 (06:31→15:44)
[2017-07-18] MEDS: PROPAFENONE 150 MG (RYTHMOL) TABLET PO SCH ×3 (06:31→21:04)
[2017-07-18] MEDS: LEVOTHYROXINE 100 MCG (LEVOTHROID) TAB PO SCH (06:31)
[2017-07-18] MEDS: predniSONE 10 MG TAB PO SCH (06:31)
[2017-07-18] MEDS: ASPIRIN E.C. 81 MG (ECOTRIN) TAB PO SCH (08:54)
[2017-07-18] MEDS: risperiDONE 0.25 MG (RisperDAL) TAB PO SCH (08:55)
[2017-07-18] MEDS: ALPRAZolam 0.5 MG (XANAX) TAB PO SCH ×3 (08:55→21:00)
[2017-07-18] MEDS: FUROSEMIDE 20 MG (LASIX) TAB PO SCH (08:55)
[2017-07-18] MEDS: buPROPion SR 150 MG (WELLBUTRIN SR) TAB PO SCH (08:55)
[2017-07-18] MEDS: LOSARTAN 50 MG (COZAAR) TAB PO SCH (10:12)
--- NOTE | 2017-07-18 12:21 | Physical Therapy Daily Note ---
PT Daily Note-Current Subjective Pt in bed, agreeable to get up to chair. Mental Status Patient Orientation: Person, Place, Time, Situation Attachments: Colostomy/Ileostomy Transfers Functional [place] Measure 0=Not Assessed/NA 4=Minimal Assistance 1=Total Assistance 5=Supervision or Setup 2=Maximal Assistance 6=Modified [place] 3=Moderate Assistance 7=Complete IndependenceIRFPAI Quality Coding Scale 6 Independent with activity with or without an assistive device 5 Patient requires set up or clean up by helper. Patient completes activity by themselves 4 Supervision or touching assist (CGA). [place] provide cues , steadying assist 3 The helper provides less than half the effort to complete the activity 2 The helper provides more than half the effort to complete the activity 1 Dependent. The helper does all the effort to complete an activity 7 Patient refused to complete or attempt activity 9 The patient did not perform the activity before the current illness or injury 88 Not attempted due to Medical conditions or safety concerns Transfers (B, C, W/C) (FIM): 1 Scootin Rollin Supine to/from Sit: 1 Sit to/from Stand: 1 Chair/Czc-tv-Nlidr Xfer(QC): 1 Weight Bearing Weight Bearing Restriction: Full Weight Bearing Location Restriction: LE Bilateral Gait Training Does the Patient Walk?: No and Walking Goal IS indicated Treatments Bed mobility and TFR training. Max-Dependent assist x 1-2 for squat pivot TFR from bed->chair. Up in recliner with Dawna sling and donut in place for transfer back to bed with nursing when ready. Assessment Current Status: Fair Progress Pt tolerated well. Once established at EOB, Pt able to maintain sitting balance with close SBA. PT Short Term Goals Short Term Goals Time Frame: Jul 30, 2017 Transfers (B,C,W/C) (FIM): 3 Gait (FIM): 2 Distance (FIM): 9=668-26 ft Gait Assistive Device: FWW PT Alf Goals Motor Vehicle Parts Interpreter Goals PT Motor Vehicle Parts Interpreter Goals Time Frame: Aug 13, 2017 Transfers (B,C,W/C) (FIM): 6 Sit to Lying (QC): 6 Lying-Sitting on Side/Bed(QC): 6 Sit to Stand (QC): 6 Rollin Roll Left to Right (QC): 6 Chair/Din-ww-[place] Xfer(QC): 6 Car Transfer (QC): 5 Does the Patient Walk: No and Walking Goal IS indicated Gait (FIM): 6 Gait distance (FIM): 3=150 ft Walk 10 feet (QC): 6 Walk 10ft-Uneven Surface(QC): 6 Walk 50ft with 2 Turns (QC): 6 Walk 150 ft (QC): 6 Gait Level of Assist: 6 Gait Assistive Device: FWW Stairs (FIM): 5 # of Steps: 8 1 Step (curb) (QC): 6 4 Steps (QC): 6 12 Steps (QC): 5 Stairs Level Of Assist: 6 Picking up an Object (QC): 5 PT Plan Problem List Problem List: Activity Tolerance, Functional Strength, Safety, Balance, Gait, Transfer, Bed Mobility Treatment/Plan Treatment Plan: Continue Plan of Care Treatment Plan: Bed Mobility, Education, Functional Activity Carlos A, Functional Strength, Group Therapy, Gait, Safety, Therapeutic Exercise, Transfers Treatment Duration: Aug 13, 2017 Frequency: At least 5-7 days/Wk (IRF) Estimated Hrs Per Day: 1.5 hours per day Patient and/or Family Agrees t: Yes Time/GCodes Time In: 1008 Time Out: 1032 Total Billed Treatment Time: 24 Total Billed Treatment 1, FA x 24' G Codes Necessary: No JANET SÁNCHEZ DPLibertad Jul 18, 2017 12:21
--- NOTE | 2017-07-18 12:51 | Consultation-Hospitalist ---
HPI History of Present Illness: HPI/Chief Complaint here for physical therapy to get better and stronger enough to go home. Complains primarily of her buttocks hurting from the pressure. 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) Alcohol Use: Denies Use Recreational Drug Use: No Smoking Status: Former Smoker Physical Abuse Screen: No Sexual Abuse: No Recent Foreign Travel: No Contact w/other who traveled: No Recent Hopitalizations: Yes ([place]) Recent Infectious Disease Expo: No Seasonal Allergies Seasonal Allergies: Yes Surgeries HX Surgeries: Yes Surgeries: Abdominal, Appendectomy, Cardiac, Gallbladder, Hysterectomy, Orthopedic, Renal, Thyroidectomy Respiratory Hx Respiratory Disorders: No Cardiovascular Hx Cardiovascular Disorders: Yes (SVT status post ablation) Cardiac Disorders: Hypertension, Irregular Heartbeat (V. tach) Neurological Hx Neurological Disorders: No Reproductive System : No Genitourinary Hx Genitourinary Disorders: No Gastrointestinal Hx Gastrointestinal Disorders: Yes Gastrointestinal Disorders: Chronic Constipation Musculoskeletal Hx Musculoskeletal Disorders: Yes Musculoskeletal Disorders: Arthritis Endocrine Hx Endocrine Disorders: Yes Endocrine Disorders: Hypothyroidsim HEENT HX ENT Disorders: No Loss of Vision: Denies Hearing Impairment: Denies Cancer Hx Cancer: No Psychosocial Hx Psychiatric Problems: No Behavioral Health Disorders: Anxiety, Depression Integumentary HX Skin/Integumentary Disorder: No Blood Transfusions Adverse Reaction to a Blood Tr: No Review of Systems Constitutional: weakness, weight loss EENTM: dental problems Respiratory: dyspnea on exertion Cardiovascular: palpitations Gastrointestinal: constipation Genitourinary: incontinence, other (indwelling Reynolds) Musculoskeletal: muscle weakness Psychiatric/Neurological: Depressed, Emotional Problems (tearful) Physical Exam Physical Exam Vital Signs Vital Sign - Last 12Hours 07/16/17 13:40 Temp 98.2 Pulse 103 Resp 20 B/P (MAP) 110/67 Pulse Ox 100 O2 Delivery Room Air Capillary Refill : General Appearance: Cachetic Eyes: Bilateral Eye Normal Inspection HEENT: Normal ENT Inspection Neck: Supple Respiratory: Lungs Clear, Normal Breath Sounds, No Accessory Muscle Use, No Respiratory Distress Cardiovascular: Regular Rate, Rhythm, No Gallop, No Murmur Gastrointestinal: Soft, Other (ostomy left lower quadrant) Extremity: Other (muscle wasting) Neurologic/Psychiatric: Alert, Motor Weakness (lower extremity dorsal flexion and plantar finger flexion about 4+ quads 0) Skin: Pallor Lymphatic: No Adenopathy Assessment/Plan Admission Diagnosis 1. 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 Ng. 2. Status post PEG tube removal, status post weaning from vent, now with trach capped. Dr. Causey to see to investigate discontinuing the tracheostomy 3. Indwelling Reynolds catheter. 4. Surgical hypothyroidism, on replacement. 5. History of supraventricular tachycardia and V. tach, status post ablation and on Rythmol. 6. Hypertension, controlled with medication. 7. Chronic constipation, on medications. 8. Status post colostomy as per above. Clinical Quality Measures DVT/VTE Risk/Contraindication: Risk Factor Score Per Nursin RFS Level Per Nursing on Admit: 3=High KAREN YANG MD Jul 18, 2017 12:51
[2017-07-18 13:26] LABS: BASOPHILS % (AUTO) 0 % (0-10); EOSINOPHILS # (AUTO) 0.1 10^3/uL (0.0-0.3); EOSINOPHILS % (AUTO) 1 % (0-10); LYMPHOCYTES # (AUTO) 1.9 X 10^3 (1.0-4.0); LYMPHOCYTES % (AUTO) 15 % (12-44); MEAN CORPUSCULAR HEMOGLOBIN 29 PG (25-34); MEAN CORPUSCULAR HGB CONC 32 G/DL (32-36); MEAN CORPUSCULAR VOLUME 91 FL (80-99); MEAN PLATELET VOLUME 9.5 FL (7.4-10.4); MONOCYTES # (AUTO) 0.5 X 10^3 (0.0-1.0); MONOCYTES % (AUTO) 4 % (0-12); NEUTROPHILS # (AUTO) 10.7 X 10^3 (1.8-7.8); NEUTROPHILS % (AUTO) 81 % (42-75); PLATELET COUNT 366 10^3/uL (130-400); RED CELL DISTRIBUTION WIDTH 14.7 % (10.0-14.5); WHITE BLOOD COUNT 13.2 10^3/uL (4.3-11.0)
[2017-07-18 13:43] LABS: ALANINE AMINOTRANSFERASE 146 U/L (0-55); ANION GAP 13 MMOL/L (5-14); ASPARTATE AMINO TRANSFERASE 53 U/L (5-34); BILIRUBIN,TOTAL 0.8 MG/DL (0.1-1.0); BLOOD UREA NITROGEN 17 MG/DL (7-18); BUN/CREATININE RATIO 22; CALCIUM 11.4 MG/DL (8.5-10.1); CARBON DIOXIDE 27 MMOL/L (21-32); CHLORIDE 94 MMOL/L (98-107); CREATINE KINASE 9 U/L (29-168); CREATININE SERUM 0.77 MG/DL (0.60-1.30); GFR ESTIMATED > 60; GLUCOSE 116 MG/DL (70-105); MAGNESIUM 1.6 MG/DL (1.8-2.4); POTASSIUM 4.6 MMOL/L (3.6-5.0); SODIUM 134 MMOL/L (135-145); TOTAL PROTEIN 7.9 GM/DL (6.4-8.2)
[2017-07-18 13:57] LABS: LYMPHOCYTES % (MANUAL) 18 %; NEUTROPHILS % (MANUAL) 80 %; STOMATOCYTES SLIGHT
[2017-07-18 14:03] LABS: THYROID STIMULATING HORMONE 0.32 UIU/ML (0.35-4.94)
--- NOTE | 2017-07-18 14:08 | Diagnostic Imaging Report ---
INDICATION: Respiratory failure. COMPARISON: 05/22. FINDINGS: Previous infiltrates and vascular congestion have resolved. There is air trapping and COPD chronic. There is trach tube above the guera. There has been no adverse development. IMPRESSION: Clear chest on followup. Dictated by: Dictated on workstation # [id number]
[2017-07-18 18:08] VITALS: BP 114/71
[2017-07-18] MEDS: POLYETHYLENE GLYCOL 17 GM (MIRALAX) PACK PO SCH (21:00)
[2017-07-19 05:45] VITALS: BP 118/76
[2017-07-19] MEDS: LEVOTHYROXINE 100 MCG (LEVOTHROID) TAB PO SCH (05:59)
[2017-07-19] MEDS: LACTOBACILLUS Acidoph/Bulgar (LACTINEX/FLORANEX) TAB PO SCH ×3 (05:59→15:54)
[2017-07-19] MEDS: PANTOPRAZOLE 20 MG TABLET (PROTONIX) PO SCH (05:59)
[2017-07-19] MEDS: predniSONE 10 MG TAB PO SCH (05:59)
[2017-07-19] MEDS: PROPAFENONE 150 MG (RYTHMOL) TABLET PO SCH ×4 (06:00→23:14)
[2017-07-19] MEDS: LOSARTAN 50 MG (COZAAR) TAB PO SCH (07:58)
[2017-07-19] MEDS: risperiDONE 0.25 MG (RisperDAL) TAB PO SCH (07:58)
[2017-07-19] MEDS: buPROPion SR 150 MG (WELLBUTRIN SR) TAB PO SCH (07:58)
[2017-07-19] MEDS: ASPIRIN E.C. 81 MG (ECOTRIN) TAB PO SCH (07:59)
[2017-07-19] MEDS: ALPRAZolam 0.5 MG (XANAX) TAB PO SCH ×4 (07:59→23:14)
--- NOTE | 2017-07-19 12:04 | Progress Note-Hospitalist ---
Subjective HPI/CC On Admission Date Seen by Provider: Jul 19, 2017 Time Seen by Provider: 12:00 here for physical therapy to get better and stronger enough to go home. Complains primarily of her buttocks hurting from the pressure. Subjective/Events-last exam no complaints Objective Exam Vital Signs Vital Sign - Last 12Hours 07/26/17 05:01 Temp 97.3 Pulse 90 Resp 18 B/P (MAP) 155/67 Pulse Ox 98 O2 Delivery Room Air Capillary Refill : General Appearance: Chronically ill Results/Procedures Lab Assessment/Plan Assessment and Plan Assess & Plan/Chief Complaint hypercalcemia Elevated liver function tests History of SVT and V. tach rhythm in all Profound muscle weakness of uncertain etiology other than long-standing critical illness Respiratory failure resolved Plan to check a.m. cortisol ionized calcium further evaluation is needed for the hypercalcemia KAREN YANG MD Jul 19, 2017 12:04
[2017-07-19 18:06] VITALS: BP 136/83
[2017-07-19] MEDS: POLYETHYLENE GLYCOL 17 GM (MIRALAX) PACK PO SCH (20:12)
[2017-07-20 05:11] VITALS: BP 126/72
[2017-07-20] MEDS: predniSONE 10 MG TAB PO SCH (06:15)
[2017-07-20] MEDS: PANTOPRAZOLE 20 MG TABLET (PROTONIX) PO SCH (06:15)
[2017-07-20] MEDS: LEVOTHYROXINE 100 MCG (LEVOTHROID) TAB PO SCH (06:15)
[2017-07-20] MEDS: PROPAFENONE 150 MG (RYTHMOL) TABLET PO SCH ×3 (06:16→22:34)
[2017-07-20] MEDS: LACTOBACILLUS Acidoph/Bulgar (LACTINEX/FLORANEX) TAB PO SCH ×3 (06:16→15:42)
[2017-07-20 08:22] LABS: PTH INTACT IRMA 13.7 pg/mL (10.0-65.0)
--- NOTE | 2017-07-20 09:09 | Occupational Ther Daily Note ---
OT Current Status-Daily Note Subjective Pt alert, sitting in bed. Agreed to therapy. No c/o pain. C/o dizziness when initially sitting up. Cleared in 1 minute. C/o low fatigue level and shortness of breath after standing. Mental Status/Objective Patient Orientation: Person, Place, Time, Situation Functional [place] Measure 0=Not Assessed/NA 4=Minimal Assistance 1=Total Assistance 5=Supervision or Setup 2=Maximal Assistance 6=Modified [place] 3=Moderate Assistance 7=Complete [place] Attachments: Colostomy/Ileostomy, Other-See Comments Trach ADL-Treatment Co treatment with PT due to weakness and low fatigue levels, requiring skilled care. PT worked on standing, transfers, and body mechanics while standing and sitting up. OT worked on ADL's including bathing, grooming, and dressing. Functional [place] Measure 0=Not Assessed/NA 4=Minimal Assistance 1=Total Assistance 5=Supervision or Setup 2=Maximal Assistance 6=Modified [place] 3=Moderate Assistance 7=Complete IndependenceIRFPAI Quality Coding Scale 6 Independent with activity with or without an assistive device 5 Patient requires set up or clean up by helper. Patient completes activity by themselves 4 Supervision or touching assist (CGA). [place] provide cues , steadying assist 3 The helper provides less than half the effort to complete the activity 2 The helper provides more than half the effort to complete the activity 1 Dependent. The helper does all the effort to complete an activity 7 Patient refused to complete or attempt activity 9 The patient did not perform the activity before the current illness or injury 88 Not attempted due to Medical conditions or safety concerns Grooming (FIM): 2 (Pt is able to brush teeth with stabilization of UE at elbow. Moves head back and forth to reach whole mouth. Assistance with leaning forward to spit in sink. Pt able to reach water to rinse toothbrush and mouth. Pt dependent with combing hair and washing face. ) Oral Hygiene (QC): 2 (Pt is able to brush teeth with stabilization of UE at elbow. Moves head back and forth to reach whole mouth. Assistance with leaning forward to spit in sink. Pt able to reach water to rinse toothbrush and mouth. ) Bathing (FIM): 2 (Pt completes bathing in rolling shower chair. Pt able to wash arms up to an inch below shoulders and thighs and mamta area. Assistance for washing all other body parts. Assistance when leaning forward to clean back. ) Bathing Location: L Arm, R Arm, L Upper Leg, R Upper Leg Shower/Bathe Self (QC): 2 (Pt completes bathing in rolling shower chair. Pt able to wash arms up to an inch below shoulders, and thighs and mamta area. Assistance for washing all other body parts. Assistance leaning forward to clean back. ) Upper Body (FIM): 2 (Pt able to lift arms to put through holes when donning bra and shirt. Assistance for pulling shirt up on arms, over head, and down on body. ) Upper Body Dressing (QC): 2 (Pt able to lift arms to put through holes when donning bra and shirt. Assistance for pulling shirt up on arms, over head, and down on body. ) Lower Body Dressing (FIM): 1 (Pt dependent for donning and doffing underwear and pants. Pt requires max A to stand while another person hikes pants over hips. ) Lower Body Dressing (QC): 1 (Pt dependent for donning and doffing underwear and pants. Pt requires max A to stand while another person hikes pants over hips. ) On/Off Footwear (QC): 1 (Pt dependent when putting on shoes and socks. Pt able to lift foot up while donning shoes and socks. ) Shower Transfer(FIM): 1 (Used mobile shower chair to transport pt to shower. ) OT Short Term Goals Short Term Goals Time Frame: Jul 30, 2017 Eating(FIM): 4 Grooming(FIM): 4 Bathing(FIM): 3 Upper Body Dressing(FIM): 3 Lower Body Dressing(FIM): 3 Toileting(FIM): 3 Transfers (B,C,W/C) (FIM): 3 Toilet/Commode Transfer(FIM): 3 Shower Transfer(FIM): 3 Additional Short Term Goals: 1-Demonstrate ADL Tasks, 2-Verbalize Understanding , 3-ImproveStrength/Carlos A 1=Demonstrate adherence to instructed precautions during ADL tasks. 2=Patient will verbalize/demonstrate understanding of assistive devices/ modifications for ADL. 3=Patient will improve strength/tolerance for activity to enable patient to perform ADL's. OT Vp Director Of Creative Strategy Goals Vp Director Of Creative Strategy Goals Time Frame: Aug 13, 2017 Eating (FIM): 5 Eating (QC): 5 Groomin Oral Hygiene (QC): 5 Bathing(FIM): 5 Shower/Bathe Self (QC): 4 Upper Body Dressing(FIM): 5 Upper Body Dressing (QC): 4 Lower Body Dressing(FIM): 5 Lower Body Dressing (QC): 4 On/Off Footwear (QC): 4 Toileting(FIM): 5 Toileting Hygiene (QC): 4 Transfers (B,C,W/C) (FIM): 5 Toilet/Commode Transfer(FIM): 5 Toilet/Commode Transfer (QC): 4 Tub Transfer(FIM): 5 Shower Transfer(FIM): 4 Additional Goals: 1-Demonstrate ADL Tasks, 2-Verbalize Understanding, 3- ImproveStrength/Carlos A 1=Demonstrate adherence to instructed precautions during ADL tasks. 2=Patient will verbalize/demonstrate understanding of assistive devices/ modifications for ADL. 3=Patient will improve strength/tolerance for activity to enable patient to perform ADL's. OT Education/Plan Discharge Recommendations Plan/Recommendations: Continue POC Treatment Plan/Plan of Care Patient would benefit from OT for education, treatment and training to promote independence in ADL's, mobility, safety and/or upper extremity function for ADL' s. Plan of Care: ADL Retraining, Caregiver Training, Functional Mobility, Group Exercise/Act as Ind, UE Funct Exercise/Act Treatment Duration: Aug 13, 2017 Frequency: At least 5-7 days/Wk (IRF) Estimated Hrs Per Day: 1.5 hours per day Agreement: Yes Rehab Potential: Good Time/GCodes Start Time: 08:00 Stop Time: 09:00 Total Time Billed (hr/min): 60 Billed Treatment Time 1 visit, ADL 4 (60 minutes) Co treatment time: [id number]. LILY INMAN Jul 20, 2017 09:09
[2017-07-20] MEDS: ALPRAZolam 0.5 MG (XANAX) TAB PO SCH ×3 (09:19→20:25)
[2017-07-20] MEDS: LOSARTAN 50 MG (COZAAR) TAB PO SCH (09:19)
[2017-07-20] MEDS: risperiDONE 0.25 MG (RisperDAL) TAB PO SCH (09:19)
[2017-07-20] MEDS: ASPIRIN E.C. 81 MG (ECOTRIN) TAB PO SCH (09:19)
[2017-07-20] MEDS: buPROPion SR 150 MG (WELLBUTRIN SR) TAB PO SCH (09:19)
--- NOTE | 2017-07-20 09:59 | Physical Therapy Daily Note ---
PT Daily Note-Current Subjective Pt was lying in bed upon arrival to room and agreeable to therapy. Pt was seated in wheelchair left with nurse call, tray, all needs in reach after treatment. Mental Status Patient Orientation: Normal For Age Attachments: Colostomy/Ileostomy, Reynolds Catheter Transfers Functional [place] Measure 0=Not Assessed/NA 4=Minimal Assistance 1=Total Assistance 5=Supervision or Setup 2=Maximal Assistance 6=Modified [place] 3=Moderate Assistance 7=Complete IndependenceIRFPAI Quality Coding Scale 6 Independent with activity with or without an assistive device 5 Patient requires set up or clean up by helper. Patient completes activity by themselves 4 Supervision or touching assist (CGA). [place] provide cues , steadying assist 3 The helper provides less than half the effort to complete the activity 2 The helper provides more than half the effort to complete the activity 1 Dependent. The helper does all the effort to complete an activity 7 Patient refused to complete or attempt activity 9 The patient did not perform the activity before the current illness or injury 88 Not attempted due to Medical conditions or safety concerns Transfers (B, C, W/C) (FIM): 1 Scootin Rollin Supine to/from Sit: 1 Sit to/from Stand: 1 Pt requires total assistance with all transfers. Pt can reach arm across bed to reach bed rail, but is unable to support any weight. Treatments Pt is transferred to chair with stand pivot transfer and maximum assist. Pt has shower by OT and is supported while working on weight shifting and sitting posture by PT throughout tx to facilitate sitting balance. Pt requires maximum assistance for safety. PT also performed transfers and standing for patient dressing. Assessment Current Status: Good Progress Patient total assist for bed mobility and transfers. PT Short Term Goals Short Term Goals Time Frame: Jul 30, 2017 Transfers (B,C,W/C) (FIM): 3 Gait (FIM): 2 Distance (FIM): 1=158-34 ft Gait Assistive Device: FWW PT Oil Tanker Captain Goals Oil Tanker Captain Goals PT Oil Tanker Captain Goals Time Frame: Aug 13, 2017 Transfers (B,C,W/C) (FIM): 6 Sit to Lying (QC): 6 Lying-Sitting on Side/Bed(QC): 6 Sit to Stand (QC): 6 Rollin Roll Left to Right (QC): 6 Chair/Nhv-oz-Aqibv Xfer(QC): 6 Car Transfer (QC): 5 Does the Patient Walk: No and Walking Goal IS indicated Gait (FIM): 6 Gait distance (FIM): 3=150 ft Walk 10 feet (QC): 6 Walk 10ft-Uneven Surface(QC): 6 Walk 50ft with 2 Turns (QC): 6 Walk 150 ft (QC): 6 Gait Level of Assist: 6 Gait Assistive Device: FWW Stairs (FIM): 5 # of Steps: 8 1 Step (curb) (QC): 6 4 Steps (QC): 6 12 Steps (QC): 5 Stairs Level Of Assist: 6 Picking up an Object (QC): 5 PT Plan Problem List Problem List: Activity Tolerance, Functional Strength, Safety, Balance, Gait, Transfer, Bed Mobility, ROM Treatment/Plan Treatment Plan: Continue Plan of Care Treatment Plan: Bed Mobility, Education, Functional Activity Carlos A, Functional Strength, Group Therapy, Gait, Safety, Therapeutic Exercise, Transfers Treatment Duration: Aug 13, 2017 Frequency: At least 5-7 days/Wk (IRF) Estimated Hrs Per Day: 1.5 hours per day Patient and/or Family Agrees t: Yes Safety Risks/Education Patient Education: Transfer Techniques, Reviewed Precautions, Correct Positioning, Safety Issues Teaching Recipient: Patient Teaching Methods: Demonstration, Discussion Response to Teaching: Verbalize Understanding, Reinforcement Needed Time/GCodes Time In: 800 Time Out: 900 Total Billed Treatment Time: 60 Total Billed Treatment 1 visit 20 TT 40 STEPHANE WREN PT Jul 20, 2017 09:59
--- NOTE | 2017-07-20 10:40 | Speech Therapy Daily Note ---
Speech Daily Progress Note Subjective Date Seen by Provider: Jul 20, 2017 Time Seen by Provider: 09:15 The patient was seated upright in her wheelchair upon entrance. The patient greeted the clinician upon entrance and was agreeable to participation in the dysphagia treatment session on this date. Objective Dysphagia Exercises: Base of tongue retraction, pharyngeal contraction, and laryngeal elevation exercises were initiated on this date. The patient displayed high accuracy with the exercises with mild clinician verbal prompting and direct modeling provided. Five repetitions of each exercise were performed. The patient read through the handout of the exercises and denied questions or concerns regarding the treatment plan at this time. - The patient was observed consuming pills with water throughout the session. No signs/symptoms of aspiration were demonstrated with any consistency provided. Assessment Assessment Current Status: Excellent Progress Communication Comprehension: 6 Expression: 6 Social Cognition Social Interaction: 5 Problem Solvin Memory: 6 Speech Short Term Goals Short Term Goals Short Term Goals 1. The patient will demonstrate dysphagia strengthening exercises with 90% accuracy, independently. Time Frame-STG: Five Days Speech Cs Associate Goals Cs Associate Goals 1. The patient will tolerate the least restrictive diet without signs/symptoms of aspiration or laryngeal penetration. Time Frame: One Week Speech-Plan Treatment Plan Speech Therapy Treatment Plan: Continue Plan of Care Continue skilled speech pathology to target dysphagia exercises, swallowing safety, and swallowing strategies. Frequency: Modified Program (IRF) Estimated Hrs Per Day: .5 hour per day Rehab Potential: Good Safety Risks/Education Teaching Recipient: Patient Teaching Methods: Demonstration, Handout, Discussion Response to Teaching: Verbalize Understanding, Return Demonstration Education Topics Provided: Dysphagia Exercises Time Speech Therapy Time In: 09:15 Speech Therapy Time Out: 09:45 Total Billed Time: 30 Billed Treatment Time 1, DYST (09:15 to 09:25/09:40 to 10:00) DARRIAN BLOCK Jul 20, 2017 10:40
--- NOTE | 2017-07-20 13:32 | Physical Therapy Daily Note ---
PT Daily Note-Current Subjective Pt was lying in bed prior to tx and agreeable to PT. Pt was left lying in bed with nurse call, phone, tray, all needs in reach. Pain Numeric Pain Scale: 0-No Pain Location: No Pain Reported Mental Status Patient Orientation: Normal For Age Attachments: Colostomy/Ileostomy, Reynolds Catheter Transfers Functional [place] Measure 0=Not Assessed/NA 4=Minimal Assistance 1=Total Assistance 5=Supervision or Setup 2=Maximal Assistance 6=Modified [place] 3=Moderate Assistance 7=Complete IndependenceIRFPAI Quality Coding Scale 6 Independent with activity with or without an assistive device 5 Patient requires set up or clean up by helper. Patient completes activity by themselves 4 Supervision or touching assist (CGA). [place] provide cues , steadying assist 3 The helper provides less than half the effort to complete the activity 2 The helper provides more than half the effort to complete the activity 1 Dependent. The helper does all the effort to complete an activity 7 Patient refused to complete or attempt activity 9 The patient did not perform the activity before the current illness or injury 88 Not attempted due to Medical conditions or safety concerns Transfers (B, C, W/C) (FIM): 1 Scootin Rollin Supine to/from Sit: 1 Sit to/from Stand: 1 Bed to/from Chair: 1 Pt requires total assist for all transfers for safety. Gait Training Does the Patient Walk?: No and Walking Goal IS indicated Wheelchair Training Does the Pt Use a Wheelchair?: Yes Wheelchair (FIM): 1 Wheelchair Distance: 1=up to 49 ft Distance: 15x2 Wheelchair Level of Assist: 4 Type of Wheelchair: Manual Pt requires min assist for steering and corners. Pt is easily fatigued and requires frequent breaks. Exercises Seated Therapy Exercises: Ankle pumps, Long arc quads, Hip flexion, Glut set Seated Reps: 20 Treatments Pt completes wheelchair training for functional mobility and seated exercises for functional strengthening. Assessment Current Status: Poor Progress Pt requires total assist for all transfers for safety. PT Short Term Goals Short Term Goals Time Frame: Jul 30, 2017 Transfers (B,C,W/C) (FIM): 3 Gait (FIM): 2 Distance (FIM): 7=350-48 ft Gait Assistive Device: FWW PT Half-Way Goals Soldering Machine Feeder Goals PT Soldering Machine Feeder Goals Time Frame: Aug 13, 2017 Transfers (B,C,W/C) (FIM): 6 Sit to Lying (QC): 6 Lying-Sitting on Side/Bed(QC): 6 Sit to Stand (QC): 6 Rollin Roll Left to Right (QC): 6 Chair/Prf-uk-Oqkbd Xfer(QC): 6 Car Transfer (QC): 5 Does the Patient Walk: No and Walking Goal IS indicated Gait (FIM): 6 Gait distance (FIM): 3=150 ft Walk 10 feet (QC): 6 Walk 10ft-Uneven Surface(QC): 6 Walk 50ft with 2 Turns (QC): 6 Walk 150 ft (QC): 6 Gait Level of Assist: 6 Gait Assistive Device: FWW Stairs (FIM): 5 # of Steps: 8 1 Step (curb) (QC): 6 4 Steps (QC): 6 12 Steps (QC): 5 Stairs Level Of Assist: 6 Picking up an Object (QC): 5 PT Plan Problem List Problem List: Activity Tolerance, Functional Strength, Safety, Balance, Gait, Transfer, Bed Mobility, ROM Treatment/Plan Treatment Plan: Continue Plan of Care Treatment Plan: Bed Mobility, Education, Functional Activity Carlos A, Functional Strength, Group Therapy, Gait, Safety, Therapeutic Exercise, Transfers Treatment Duration: Aug 13, 2017 Frequency: At least 5-7 days/Wk (IRF) Estimated Hrs Per Day: 1.5 hours per day Patient and/or Family Agrees t: Yes Safety Risks/Education Patient Education: Transfer Techniques, Reviewed Precautions, Correct Positioning, W/C Management, Safety Issues Teaching Recipient: Patient Teaching Methods: Demonstration, Discussion Response to Teaching: Verbalize Understanding, Reinforcement Needed Time/GCodes Time In: 1300 Time Out: 1330 Total Billed Treatment Time: 30 Total Billed Treatment 1 visit EX 10min WH 20min STEPHANE KC PT Jul 20, 2017 13:32
--- NOTE | 2017-07-20 14:01 | Occupational Ther Daily Note ---
OT Current Status-Daily Note Subjective Pt alert, sitting in bed. Agrees to therapy. No c/o pain. Mental Status/Objective Patient Orientation: Person, Place, Time, Situation Functional [place] Measure 0=Not Assessed/NA 4=Minimal Assistance 1=Total Assistance 5=Supervision or Setup 2=Maximal Assistance 6=Modified [place] 3=Moderate Assistance 7=Complete [place] Attachments: Colostomy/Ileostomy, Other-See Comments Trach ADL-Treatment Functional [place] Measure 0=Not Assessed/NA 4=Minimal Assistance 1=Total Assistance 5=Supervision or Setup 2=Maximal Assistance 6=Modified [place] 3=Moderate Assistance 7=Complete IndependenceIRFPAI Quality Coding Scale 6 Independent with activity with or without an assistive device 5 Patient requires set up or clean up by helper. Patient completes activity by themselves 4 Supervision or touching assist (CGA). [place] provide cues , steadying assist 3 The helper provides less than half the effort to complete the activity 2 The helper provides more than half the effort to complete the activity 1 Dependent. The helper does all the effort to complete an activity 7 Patient refused to complete or attempt activity 9 The patient did not perform the activity before the current illness or injury 88 Not attempted due to Medical conditions or safety concerns Eating (FIM): 5 (After set up, with modifications, pt able to feed self. ) Other Treatment Pt completed operator receptionist strength and pinch strength tests. Average R operator receptionist = 8.6 lbs. Average L operator receptionist = 2 lbs. Average R tip pinch = 4.3 lbs. Average L tip pinch = 2 lbs. Average R lateral pinch = 4 lbs. Average L lateral pinch = 2 lbs. Average R 3-jaw jose antonio = 4.6 lbs. Average L 3-jaw jose antonio = 1 lb. Pt completed nine hole peg test with dominant hand (R) test in 1 min 30 sec. Pt tried, but was unable to complete test with non-dominant hand (L) due to lack of strength and incoordination of FM skills. Pt attempted to eat pudding with regular utensils resulting in loose operator receptionist, shakiness when reaching mouth, and lowering head to reach spoon. Spoon was manipulated to angle toward mouth and given built up handle. With modifications, pt more efficient in feeding self. After therapy, pt sitting in bed with call button and phone within reach. All needs met in room. OT Short Term Goals Short Term Goals Time Frame: Jul 30, 2017 Eating(FIM): 4 Grooming(FIM): 4 Bathing(FIM): 3 Upper Body Dressing(FIM): 3 Lower Body Dressing(FIM): 3 Toileting(FIM): 3 Transfers (B,C,W/C) (FIM): 3 Toilet/Commode Transfer(FIM): 3 Shower Transfer(FIM): 3 Additional Short Term Goals: 1-Demonstrate ADL Tasks, 2-Verbalize Understanding , 3-ImproveStrength/Carlos A 1=Demonstrate adherence to instructed precautions during ADL tasks. 2=Patient will verbalize/demonstrate understanding of assistive devices/ modifications for ADL. 3=Patient will improve strength/tolerance for activity to enable patient to perform ADL's. OT Penitentiary Goals Gas Burner Operator Goals Time Frame: Aug 13, 2017 Eating (FIM): 5 Eating (QC): 5 Groomin Oral Hygiene (QC): 5 Bathing(FIM): 5 Shower/Bathe Self (QC): 4 Upper Body Dressing(FIM): 5 Upper Body Dressing (QC): 4 Lower Body Dressing(FIM): 5 Lower Body Dressing (QC): 4 On/Off Footwear (QC): 4 Toileting(FIM): 5 Toileting Hygiene (QC): 4 Transfers (B,C,W/C) (FIM): 5 Toilet/Commode Transfer(FIM): 5 Toilet/Commode Transfer (QC): 4 Tub Transfer(FIM): 5 Shower Transfer(FIM): 4 Additional Goals: 1-Demonstrate ADL Tasks, 2-Verbalize Understanding, 3- ImproveStrength/Carlos A 1=Demonstrate adherence to instructed precautions during ADL tasks. 2=Patient will verbalize/demonstrate understanding of assistive devices/ modifications for ADL. 3=Patient will improve strength/tolerance for activity to enable patient to perform ADL's. OT Education/Plan Discharge Recommendations Plan/Recommendations: Continue POC Treatment Plan/Plan of Care Patient would benefit from OT for education, treatment and training to promote independence in ADL's, mobility, safety and/or upper extremity function for ADL' s. Plan of Care: ADL Retraining, Caregiver Training, Functional Mobility, Group Exercise/Act as Ind, UE Funct Exercise/Act Treatment Duration: Aug 13, 2017 Frequency: At least 5-7 days/Wk (IRF) Estimated Hrs Per Day: 1.5 hours per day Agreement: Yes Rehab Potential: Good Time/GCodes Start Time: 11:00 Stop Time: 11:30 Total Time Billed (hr/min): 30 Billed Treatment Time 1 visit, FA 2 (30 minutes) LILY INMAN Jul 20, 2017 14:00
[2017-07-20 17:21] VITALS: BP 90/42
[2017-07-20] MEDS: POLYETHYLENE GLYCOL 17 GM (MIRALAX) PACK PO SCH (20:25)
--- NOTE | 2017-07-20 21:36 | PM & R (SOAP) Progress Note ---
Subjective Time Seen by Provider: 21:25 Subjective/Events-last exam Patient was seen in her room this eveing Had day pass with family over weekend Patient dependent for transfers Patients son did total transfer to their [facility] SUV Appreciate DR Hernandez note and orders Labs noted Patient with Elevated LFTS and Serum calcium and hypomagnesemia noted. Review of Systems Neurological: Weakness Objective Exam Last Set of Vital Signs Vital Signs Date Time Temp Pulse Resp B/P (MAP) Pulse Ox O2 Delivery O2 Flow Rate FiO2 07/20/17 19:45 95 Room Air 07/20/17 17:21 98.0 99 18 90/42 Capillary Refill : I&O Intake and Output 07/21/17 00:00 Intake Total 1330 ml Output Total 900 ml Balance 430 ml Intake Oral 1330 ml Output Urine Total 750 ml Stool Total 150 ml General: Alert, Oriented X3, Cooperative, No Acute Distress HEENT: Atraumatic, PERRLA, EOMI, Mucous Memb Moist/[place] Neck: Supple, No JVD, Other (trach plugged) Lungs: Clear to Auscultation Heart: Regular Rate Abdomen: Normal Bowel Sounds, Soft, No Tenderness, Other (colostomy functioning ) Neuro: Other (2/5/strength both lower extremities Sensation intact Cognition intact ST assessing swallow) Results Lab Laboratory Tests 07/18/17 13:20: White Blood Count 13.2H, Red Blood Count 4.30L, Hemoglobin 12.6, Hematocrit 39, Mean Corpuscular Volume 91, Mean Corpuscular Hemoglobin 29, Mean Corpuscular Hemoglobin Concent 32, Red Cell Distribution Width 14.7H, Platelet Count 366, Mean Platelet Volume 9.5, Neutrophils (%) (Auto) 81H, Lymphocytes (%) (Auto) 15 , Monocytes (%) (Auto) 4, Eosinophils (%) (Auto) 1, Basophils (%) (Auto) 0, Neutrophils # (Auto) 10.7H, Lymphocytes # (Auto) 1.9, Monocytes # (Auto) 0.5, Eosinophils # (Auto) 0.1, Basophils # (Auto) 0.0, Neutrophils % (Manual) 80, Lymphocytes % (Manual) 18, Monocytes % (Manual) 2, Clumped Platelets OCCASIONAL , Stomatocytes SLIGHT, Sodium Level 134L, Potassium Level 4.6, Chloride Level 94L, Carbon Dioxide Level 27, Anion Gap 13, Blood Urea Nitrogen 17, Creatinine 0.77, Estimat Glomerular Filtration Rate > 60, BUN/Creatinine Ratio 22, Glucose Level 116H, Calcium Level 11.4H, Magnesium Level 1.6L, Total Bilirubin 0.8, Aspartate Amino Transf (AST/SGOT) 53H, Alanine Aminotransferase (ALT/SGPT) 146H , Alkaline Phosphatase 403H, Total Creatine Kinase 9L, B-Type Natriuretic Peptide 30.1, Total Protein 7.9, Albumin 4.0, Thyroid Stimulating Hormone (TSH) 0.32L 07/19/17 09:40: Phosphorus Level 4.5, Parathyroid Hormone (Intact) 13.7, Calcium (PTH Intact) 11.0H, Cortisol AM Sample 33.0H Assessment/Plan Assessment Crtical illness myopathy S/P trach now plugged S/P Peg tube removal/ S/P colostomy for perf orated bowel DR Ng HTN Chronic constipation Elevated LFTS Hypercalcemia Hypomagnesemia Plan Continue PT/OT/ST F/U with hospitalist in lieu of pcp and DR Ng re abnormal labs Team Conference 07/22/[address] Marium CRESPO re possible decannulation See orders. TRIP SIERRA MD Jul 20, 2017 21:36
[2017-07-21] MEDS: predniSONE 10 MG TAB PO SCH (05:41)
[2017-07-21] MEDS: LEVOTHYROXINE 100 MCG (LEVOTHROID) TAB PO SCH (05:41)
[2017-07-21] MEDS: PANTOPRAZOLE 20 MG TABLET (PROTONIX) PO SCH (05:41)
[2017-07-21] MEDS: PROPAFENONE 150 MG (RYTHMOL) TABLET PO SCH ×3 (05:42→22:49)
[2017-07-21] MEDS: LACTOBACILLUS Acidoph/Bulgar (LACTINEX/FLORANEX) TAB PO SCH ×4 (05:47→15:17)
[2017-07-21 06:00] VITALS: BP 102/57
--- NOTE | 2017-07-21 08:53 | Occupational Ther Daily Note ---
OT Current Status-Daily Note Subjective Pt alert, sitting in bed. Agreed to therapy. C/o tailbone hurting, situated on hip in bed to relieve pressure. C/o dizziness when sitting up, cleared in 1 min. C/o quick fatigue and shortness of breath when standing/transferring. Mental Status/Objective Functional [place] Measure 0=Not Assessed/NA 4=Minimal Assistance 1=Total Assistance 5=Supervision or Setup 2=Maximal Assistance 6=Modified [place] 3=Moderate Assistance 7=Complete [place] Attachments: Colostomy/Ileostomy, Other-See Comments Trach ADL-Treatment Co treatment with PT. Due to pt weakness and low fatigue levels, requires skilled treatment. PT worked on transfers, standing, and body mechanics. OT worked on bed bath, dressing, and fine motor activities. Pt able to wash arms up to shoulders, stomach, and mamta area. Assistance needed washing rest of body. Pt dressed needing assistance donning upper and lower body clothing. Functional [place] Measure 0=Not Assessed/NA 4=Minimal Assistance 1=Total Assistance 5=Supervision or Setup 2=Maximal Assistance 6=Modified [place] 3=Moderate Assistance 7=Complete IndependenceIRFPAI Quality Coding Scale 6 Independent with activity with or without an assistive device 5 Patient requires set up or clean up by helper. Patient completes activity by themselves 4 Supervision or touching assist (CGA). [place] provide cues , steadying assist 3 The helper provides less than half the effort to complete the activity 2 The helper provides more than half the effort to complete the activity 1 Dependent. The helper does all the effort to complete an activity 7 Patient refused to complete or attempt activity 9 The patient did not perform the activity before the current illness or injury 88 Not attempted due to Medical conditions or safety concerns Upper Body (FIM): 2 (Pt able to lift arms to put through holes when donning shirt and bra. Assistance with pulling up shoulders, over head, and down body. ) Lower Body Dressing (FIM): 1 (Dependent for donning and doffing pants and underwear. With knees bended, pt able to bridge in order to get pants over hips. ) Transfers (B, C, W/C) (FIM): 2 (Pt requires max A when transferring. ) Other Treatment Pt pushed in w/c to therapy gym. Pt stood in parallel bars with PT while OT blocked wrist and elbow joints for more support and weightbearing in arms. Pt then stood in stander to complete FM activity. Pt worked with soft theraputty, squeezing in each hand working on gross grasp skills. Pt then rolled the putty out using B UE and pinched putty with thumb and each finger, working on thumb opposition. R hand tolerated well, feeling fatigued after. L hand required MANZANITA in order to pinch putty due to low strength. Pt stood for 20 minutes while completing activity, having shortness of breath. Pt pushed in w/c back to room. After therapy, pt sitting in bed with call light and phone within reach. All needs met in room. OT Short Term Goals Short Term Goals Time Frame: Jul 30, 2017 Eating(FIM): 4 Grooming(FIM): 4 Bathing(FIM): 3 Upper Body Dressing(FIM): 3 Lower Body Dressing(FIM): 3 Toileting(FIM): 3 Transfers (B,C,W/C) (FIM): 3 Toilet/Commode Transfer(FIM): 3 Shower Transfer(FIM): 3 Additional Short Term Goals: 1-Demonstrate ADL Tasks, 2-Verbalize Understanding , 3-ImproveStrength/Carlos A 1=Demonstrate adherence to instructed precautions during ADL tasks. 2=Patient will verbalize/demonstrate understanding of assistive devices/ modifications for ADL. 3=Patient will improve strength/tolerance for activity to enable patient to perform ADL's. OT Senior Care Goals Radio Operator Goals Time Frame: Aug 13, 2017 Eating (FIM): 5 Eating (QC): 5 Groomin Oral Hygiene (QC): 5 Bathing(FIM): 5 Shower/Bathe Self (QC): 4 Upper Body Dressing(FIM): 5 Upper Body Dressing (QC): 4 Lower Body Dressing(FIM): 5 Lower Body Dressing (QC): 4 On/Off Footwear (QC): 4 Toileting(FIM): 5 Toileting Hygiene (QC): 4 Transfers (B,C,W/C) (FIM): 5 Toilet/Commode Transfer(FIM): 5 Toilet/Commode Transfer (QC): 4 Tub Transfer(FIM): 5 Shower Transfer(FIM): 4 Additional Goals: 1-Demonstrate ADL Tasks, 2-Verbalize Understanding, 3- ImproveStrength/Carlos A 1=Demonstrate adherence to instructed precautions during ADL tasks. 2=Patient will verbalize/demonstrate understanding of assistive devices/ modifications for ADL. 3=Patient will improve strength/tolerance for activity to enable patient to perform ADL's. OT Education/Plan Discharge Recommendations Plan/Recommendations: Continue POC Treatment Plan/Plan of Care Patient would benefit from OT for education, treatment and training to promote independence in ADL's, mobility, safety and/or upper extremity function for ADL' s. Plan of Care: ADL Retraining, Caregiver Training, Functional Mobility, Group Exercise/Act as Ind, UE Funct Exercise/Act Treatment Duration: Aug 13, 2017 Frequency: At least 5-7 days/Wk (IRF) Estimated Hrs Per Day: 1.5 hours per day Agreement: Yes Rehab Potential: Good Time/GCodes Start Time: 07:30 Stop Time: 08:45 Total Time Billed (hr/min): 75 Billed Treatment Time 1 visit, ADL 2 (30 minutes) EX 3 (45 minutes) Individual Treatment time: 6735-3105 Co treatment time: 9301-5070 LILY INMAN Jul 21, 2017 08:53
--- NOTE | 2017-07-21 08:57 | Physical Therapy Daily Note ---
PT Daily Note-Current Subjective Pt was seated in wheelchair prior to treatment. Pt was left lying in bed with nurse call, tray, all needs within reach post tx. Pain Numeric Pain Scale: 0-No Pain Location: No Pain Reported Mental Status Patient Orientation: Normal For Age Attachments: Colostomy/Ileostomy, Reynolds Catheter Transfers Functional [place] Measure 0=Not Assessed/NA 4=Minimal Assistance 1=Total Assistance 5=Supervision or Setup 2=Maximal Assistance 6=Modified [place] 3=Moderate Assistance 7=Complete IndependenceIRFPAI Quality Coding Scale 6 Independent with activity with or without an assistive device 5 Patient requires set up or clean up by helper. Patient completes activity by themselves 4 Supervision or touching assist (CGA). [place] provide cues , steadying assist 3 The helper provides less than half the effort to complete the activity 2 The helper provides more than half the effort to complete the activity 1 Dependent. The helper does all the effort to complete an activity 7 Patient refused to complete or attempt activity 9 The patient did not perform the activity before the current illness or injury 88 Not attempted due to Medical conditions or safety concerns Transfers (B, C, W/C) (FIM): 1 Scootin Rollin Supine to/from Sit: 1 Sit to/from Stand: 1 Bed to/from Chair: 1 Pt requires total assist with all bed mobility and transfers. Pt instructed to use arms and legs to help support body weight. Gait Training Does the Patient Walk?: No and Walking Goal IS indicated Wheelchair Training Does the Pt Use a Wheelchair?: Yes Wheelchair (FIM): 1 Wheelchair Distance: 1=up to 49 ft Distance: 45 Wheelchair Level of Assist: 4 Wheel 50 ft with 2 turns (QC): 4 Type of Wheelchair: Manual Pt requires min assist when navigating turns and steering chair. Treatments Pt stands with sit to stand lift for 20 minutes and verbal cues to correct trunk extension. Pt requires frequent encouragement to correct posture in sit to stand lift. Assessment Current Status: Poor Progress, Fair Progress Pt requires total assist with all transfers and bed mobility. Pt requires encouragement to make an effort with transfers. PT Short Term Goals Short Term Goals Time Frame: Jul 30, 2017 Transfers (B,C,W/C) (FIM): 3 Gait (FIM): 2 Distance (FIM): 3=600-51 ft Gait Assistive Device: FWW Wheelchair Distance: 15x2 PT Group Home Goals Group Home Goals PT Group Home Goals Time Frame: Aug 13, 2017 Transfers (B,C,W/C) (FIM): 6 Sit to Lying (QC): 6 Lying-Sitting on Side/Bed(QC): 6 Sit to Stand (QC): 6 Rollin Roll Left to Right (QC): 6 Chair/Tje-sk-Xbpmw Xfer(QC): 6 Car Transfer (QC): 5 Does the Patient Walk: No and Walking Goal IS indicated Gait (FIM): 6 Gait distance (FIM): 3=150 ft Walk 10 feet (QC): 6 Walk 10ft-Uneven Surface(QC): 6 Walk 50ft with 2 Turns (QC): 6 Walk 150 ft (QC): 6 Gait Level of Assist: 6 Gait Assistive Device: FWW Stairs (FIM): 5 # of Steps: 8 1 Step (curb) (QC): 6 4 Steps (QC): 6 12 Steps (QC): 5 Stairs Level Of Assist: 6 Picking up an Object (QC): 5 PT Plan Problem List Problem List: Activity Tolerance, Functional Strength, Safety, Balance, Gait, Transfer, Bed Mobility, ROM Treatment/Plan Treatment Plan: Continue Plan of Care Treatment Plan: Bed Mobility, Education, Functional Activity Carlos A, Functional Strength, Group Therapy, Gait, Safety, Therapeutic Exercise, Transfers Treatment Duration: Aug 13, 2017 Frequency: At least 5-7 days/Wk (IRF) Estimated Hrs Per Day: 1.5 hours per day Patient and/or Family Agrees t: Yes Safety Risks/Education Patient Education: Transfer Techniques, Reviewed Precautions, Correct Positioning, W/C Management, Safety Issues Teaching Recipient: Patient Teaching Methods: Demonstration, Discussion Response to Teaching: Verbalize Understanding, Reinforcement Needed Time/GCodes Time In: 800 Time Out: 900 Total Billed Treatment Time: 60 Total Billed Treatment 1 visit 60 FA 45 min co-treat with OT, OT worked on UE strengthening and ROM during standing in standing frame, PT worked on trunk balance and positioning during co- treatment STEPHANE KC PT Jul 21, 2017 08:57
[2017-07-21] MEDS: ASPIRIN E.C. 81 MG (ECOTRIN) TAB PO SCH (09:30)
[2017-07-21] MEDS: buPROPion SR 150 MG (WELLBUTRIN SR) TAB PO SCH (09:30)
[2017-07-21] MEDS: risperiDONE 0.25 MG (RisperDAL) TAB PO SCH (09:31)
[2017-07-21] MEDS: ALPRAZolam 0.5 MG (XANAX) TAB PO SCH ×3 (09:31→20:32)
[2017-07-21] MEDS: LOSARTAN 50 MG (COZAAR) TAB PO SCH (09:31)
--- NOTE | 2017-07-21 09:44 | PM & R (SOAP) Progress Note ---
Subjective Time Seen by Provider: 08:10 Subjective/Events-last exam Patient was seen inn her room this AM Patient still fairly dependent for transfers. Objective Exam Last Set of Vital Signs Vital Signs Date Time Temp Pulse Resp B/P (MAP) Pulse Ox O2 Delivery O2 Flow Rate FiO2 07/21/17 07:50 Room Air 07/21/17 06:00 99.0 91 18 102/57 99 Capillary Refill : I&O Intake and Output 07/22/17 00:00 Intake Total 900 ml Output Total 150 ml Balance 750 ml Intake Oral 900 ml Output Urine Total 150 ml General: Alert, Oriented X3, Cooperative, No Acute Distress HEENT: Atraumatic, PERRLA, EOMI, Mucous Memb Moist/[place] Neck: Supple, No JVD, Other (trach plugged) Lungs: Clear to Auscultation Heart: Regular Rate Abdomen: Normal Bowel Sounds, Soft, No Tenderness, Other (colostomy functioning ) Neuro: Other (2/5/strength both lower extremities Sensation intact Cognition intact ST assessing swallow) Results Lab Laboratory Tests 07/18/17 13:20: White Blood Count 13.2H, Red Blood Count 4.30L, Hemoglobin 12.6, Hematocrit 39, Mean Corpuscular Volume 91, Mean Corpuscular Hemoglobin 29, Mean Corpuscular Hemoglobin Concent 32, Red Cell Distribution Width 14.7H, Platelet Count 366, Mean Platelet Volume 9.5, Neutrophils (%) (Auto) 81H, Lymphocytes (%) (Auto) 15 , Monocytes (%) (Auto) 4, Eosinophils (%) (Auto) 1, Basophils (%) (Auto) 0, Neutrophils # (Auto) 10.7H, Lymphocytes # (Auto) 1.9, Monocytes # (Auto) 0.5, Eosinophils # (Auto) 0.1, Basophils # (Auto) 0.0, Neutrophils % (Manual) 80, Lymphocytes % (Manual) 18, Monocytes % (Manual) 2, Clumped Platelets OCCASIONAL , Stomatocytes SLIGHT, Sodium Level 134L, Potassium Level 4.6, Chloride Level 94L, Carbon Dioxide Level 27, Anion Gap 13, Blood Urea Nitrogen 17, Creatinine 0.77, Estimat Glomerular Filtration Rate > 60, BUN/Creatinine Ratio 22, Glucose Level 116H, Calcium Level 11.4H, Magnesium Level 1.6L, Total Bilirubin 0.8, Aspartate Amino Transf (AST/SGOT) 53H, Alanine Aminotransferase (ALT/SGPT) 146H , Alkaline Phosphatase 403H, Total Creatine Kinase 9L, B-Type Natriuretic Peptide 30.1, Total Protein 7.9, Albumin 4.0, Thyroid Stimulating Hormone (TSH) 0.32L 07/19/17 09:40: Phosphorus Level 4.5, Parathyroid Hormone (Intact) 13.7, Calcium (PTH Intact) 11.0H, Cortisol AM Sample 33.0H Assessment/Plan Assessment Crtical illness myopathy S/P trach now plugged S/P Peg tube removal/ S/P colostomy for perf orated bowel DR Ng HTN Chronic constipation Elevated LFTS Hypercalcemia Hypomagnesemia Plan Continue PT/OT/ST F/U with hospitalist in lieu of pcp and DR Ng re abnormal labs Team Conference tomorrow 07/22/[address] Marium CRESPO re possible decannulation-Awating his consult See orders. TRIP SIERRA MD Jul 21, 2017 09:44
--- NOTE | 2017-07-21 10:43 | Progress Note-Hospitalist ---
Progress Note HPI/CC on Admission here for physical therapy to get better and stronger enough to go home. Complains primarily of her buttocks hurting from the pressure. Progress Notes/Assess & Plan Date Seen 07/21/17 Time Seen by Provider: 10:00 Diagonsis/Assessment & Plan Pt doing much better but just can't walk 25# weight loss since illness Colostomy working ok but a bit of constipated so given Miralax Hypercalcemia w/u in process Pain controlled Trach still in place AFVSS, Pleasant, improved RRR, CTAB No edema Muscle wasting lower legs Assessment: Hypercalcemia Elevated liver function tests mild History of SVT and V. tach rhythm Profound muscle weakness of uncertain etiology other than long-standing critical illness Respiratory failure resolved Plan: Miralax f/u on lab w/u DAVY ROME DO Jul 21, 2017 10:43
--- NOTE | 2017-07-21 13:33 | Physical Therapy Daily Note ---
PT Daily Note-Current Subjective Patient was lying in bed prior to tx and agreeable to therapy. Pt was lying in bed with nurse call, phone, tray, all needs within reach post tx. Pain Numeric Pain Scale: 0-No Pain Location: No Pain Reported Mental Status Patient Orientation: Normal For Age Attachments: Colostomy/Ileostomy, Reynolds Catheter Transfers Functional [place] Measure 0=Not Assessed/NA 4=Minimal Assistance 1=Total Assistance 5=Supervision or Setup 2=Maximal Assistance 6=Modified [place] 3=Moderate Assistance 7=Complete IndependenceIRFPAI Quality Coding Scale 6 Independent with activity with or without an assistive device 5 Patient requires set up or clean up by helper. Patient completes activity by themselves 4 Supervision or touching assist (CGA). [place] provide cues , steadying assist 3 The helper provides less than half the effort to complete the activity 2 The helper provides more than half the effort to complete the activity 1 Dependent. The helper does all the effort to complete an activity 7 Patient refused to complete or attempt activity 9 The patient did not perform the activity before the current illness or injury 88 Not attempted due to Medical conditions or safety concerns Transfers (B, C, W/C) (FIM): 1 Scootin Pt is total assist with all bed mobility. Gait Training Does the Patient Walk?: No and Walking Goal IS indicated Gait (FIM): 0 Exercises Supine Ex: Ankle pumps, Quad Set, Glut sets, Heel Slides, Short Arc Quads, Hip abd/add Supine Reps: 24 Treatments Pt completes supine exercises for LE functional strengthening. Assessment Current Status: Fair Progress Pt completes supine exercises with support under leg for functional strengthening to improve bed mobility. Pt fatigues quickly and cannot support full weight of legs. PT Short Term Goals Short Term Goals Time Frame: Jul 30, 2017 Transfers (B,C,W/C) (FIM): 3 Gait (FIM): 2 Distance (FIM): 5=053-53 ft Gait Assistive Device: FWW Wheelchair Distance: 45 PT Delivery Room Supervisor Goals Group Home Goals PT Delivery Room Supervisor Goals Time Frame: Aug 13, 2017 Transfers (B,C,W/C) (FIM): 6 Sit to Lying (QC): 6 Lying-Sitting on Side/Bed(QC): 6 Sit to Stand (QC): 6 Rollin Roll Left to Right (QC): 6 Chair/Scn-xw-Lnhto Xfer(QC): 6 Car Transfer (QC): 5 Does the Patient Walk: No and Walking Goal IS indicated Gait (FIM): 6 Gait distance (FIM): 3=150 ft Walk 10 feet (QC): 6 Walk 10ft-Uneven Surface(QC): 6 Walk 50ft with 2 Turns (QC): 6 Walk 150 ft (QC): 6 Gait Level of Assist: 6 Gait Assistive Device: FWW Stairs (FIM): 5 # of Steps: 8 1 Step (curb) (QC): 6 4 Steps (QC): 6 12 Steps (QC): 5 Stairs Level Of Assist: 6 Picking up an Object (QC): 5 PT Plan Problem List Problem List: Activity Tolerance, Functional Strength, Safety, Balance, Gait, Transfer, Bed Mobility, ROM Treatment/Plan Treatment Plan: Continue Plan of Care Treatment Plan: Bed Mobility, Education, Functional Activity Carlos A, Functional Strength, Group Therapy, Gait, Safety, Therapeutic Exercise, Transfers Treatment Duration: Aug 13, 2017 Frequency: At least 5-7 days/Wk (IRF) Estimated Hrs Per Day: 1.5 hours per day Patient and/or Family Agrees t: Yes Safety Risks/Education Patient Education: Transfer Techniques, Correct Positioning, Safety Issues Teaching Recipient: Patient Teaching Methods: Demonstration, Discussion Response to Teaching: Verbalize Understanding, Reinforcement Needed Time/GCodes Time In: 1300 Time Out: 1330 Total Billed Treatment Time: 30 Total Billed Treatment 1 visit 30 EX STEPHANE KC PT Jul 21, 2017 13:33
--- NOTE | 2017-07-21 14:48 | Speech Therapy Daily Note ---
Speech Daily Progress Note Subjective Date Seen by Provider: Jul 21, 2017 Time Seen by Provider: 09:00 The patient was seated upright in her bed upon entrance. The patient greeted the clinician upon entrance and was agreeable to participation in the dysphagia treatment session on this date. Objective Dysphagia Exercises: Base of tongue retraction, pharyngeal contraction, and laryngeal elevation exercises were continued on this date. The patient displayed high accuracy with the exercises with minimal clinician verbal prompting and direct modeling provided (for the initial set). Ten repetitions of each exercise were performed. The patient read through the handout of the exercises and denied questions or concerns regarding the treatment plan at this time. - The patient was observed sipping water throughout the session. No signs/ symptoms of aspiration were demonstrated with any consistency provided. The patient reported high comfort with exercises and demonstrates high accuracy. Due to the patient's high accuracy, speech pathology will sign off at this time. Assessment Assessment Current Status: Excellent Progress Treatment Plan Discontinue ST Communication Comprehension: 5 Expression: 5 Social Cognition Social Interaction: 5 Problem Solvin Memory: 5 Speech Short Term Goals Short Term Goals Short Term Goals 1. The patient will demonstrate dysphagia strengthening exercises with 90% accuracy, independently. Time Frame-STG: Five Days Speech Prison Goals Prison Goals 1. The patient will tolerate the least restrictive diet without signs/symptoms of aspiration or laryngeal penetration. Time Frame: One Week Speech-Plan Treatment Plan Speech Therapy Treatment Plan: Discontinue ST Goals Met Frequency: Modified Program (IRF) Estimated Hrs Per Day: .5 hour per day Rehab Potential: Good Safety Risks/Education Teaching Recipient: Patient Teaching Methods: Demonstration, Handout, Discussion Response to Teaching: Verbalize Understanding, Return Demonstration Education Topics Provided: Dysphagia Exercises Time Speech Therapy Time In: 09:00 Speech Therapy Time Out: 09:30 Total Billed Time: 30 Billed Treatment Time 1, DARRIAN MIRELES Jul 21, 2017 14:48
--- NOTE | 2017-07-21 15:13 | Therapy Team Discharge Summary ---
Therapy Discharge Summary Discharge Recommendations Date of Discharge Therapy D/C Recommendations: Physical Therapy Home Care Speech-Language Pathology The patient was recently admitted to [facility] following a bowel perforation which resulted in a sepsis diagnosis. Upon admission, the patient was consuming a mechanical soft diet with thin liquids. The patient displayed cognition, linguistic, and speech skills within functional limits. A swallow evaluation demonstrated the patient's ability to be upgraded to a regular diet with thin liquids. Skilled speech pathology focused on dysphagia exercises, including base of tongue, pharyngeal wall, and laryngeal elevation exercises. The patient is able to complete all exercises with high accuracy and continues to not demonstrate signs/symptoms of aspiration with the recommended diet consistency. At this time, the patient will be discharged from skilled speech pathology services. If additional services are warranted throughout her hospitalization, please reconsult speech pathology. PT Long-Term Goals Long-Term Goals PT Long-Term Goals Time Frame: Aug 13, 2017 Transfers (B,C,W/C) (FIM): 6 Roll Left to Right (QC): 6 Sit to Lying (QC): 6 Lying-Sitting on Side/Bed(QC): 6 Sit to Stand (QC): 6 Chair/Hms-sb-Mavzj Xfer(QC): 6 Car Transfer (QC): 5 Does the Patient Walk: No and Walking Goal IS indicated Gait (FIM): 6 Gait distance (FIM): 3=150 ft Walk 10 feet (QC): 6 Walk 10ft-Uneven Surface(QC): 6 Walk 50ft with 2 Turns (QC): 6 Walk 150 ft (QC): 6 Gait Level of Assist: 6 Gait Assistive Device: FWW Stairs (FIM): 5 # of Steps: 8 1 Step (curb) (QC): 6 4 Steps (QC): 6 12 Steps (QC): 5 Stairs Level Of Assist: 6 Picking up an Object (QC): 5 OT Launch Operator Goals Launch Operator Goals Time Frame: Aug 13, 2017 Eating (FIM): 5 Eating (QC): 5 Oral Hygiene (QC): 5 Grooming(FIM): 5 Bathing(FIM): 5 Shower/Bathe Self (QC): 4 Upper Body Dressing(FIM): 5 Upper Body Dressing (QC): 4 Lower Body Dressing(FIM): 5 Lower Body Dressing (QC): 4 On/Off Footwear (QC): 4 Toileting(FIM): 5 Toileting Hygiene (QC): 4 Transfers (B,C,W/C) (FIM): 5 Toilet/Commode Transfer(FIM): 5 Toilet/Commode Transfer (QC): 4 Tub Transfer(FIM): 5 Shower Transfer(FIM): 4 Additional Goals: 1-Demonstrate ADL Tasks, 2-Verbalize Understanding, 3- ImproveStrength/Carlos A 1=Demonstrate adherence to instructed precautions during ADL tasks. 2=Patient will verbalize/demonstrate understanding of assistive devices/ modifications for ADL. 3=Patient will improve strength/tolerance for activity to enable patient to perform ADL's. Speech Long-Term Goals Launch Operator Goals 1. The patient will tolerate the least restrictive diet without signs/symptoms of aspiration or laryngeal penetration. MET Time Frame: One Week DARRIAN BLOCK Jul 21, 2017 15:13
[2017-07-21 18:12] VITALS: BP 97/60
[2017-07-21] MEDS: POLYETHYLENE GLYCOL 17 GM (MIRALAX) PACK PO SCH (20:35)
[2017-07-21 23:49] LABS: CALCIUM IONIZED 1.45 mmol/L (1.16-1.32); CORRECTED IONIZED CALCIUM 1.39 mmol/L (1.16-1.32)
[2017-07-22 05:04] VITALS: BP 121/62
[2017-07-22] MEDS: LEVOTHYROXINE 100 MCG (LEVOTHROID) TAB PO SCH (06:08)
[2017-07-22] MEDS: PROPAFENONE 150 MG (RYTHMOL) TABLET PO SCH ×3 (06:08→21:47)
[2017-07-22] MEDS: predniSONE 5 MG TAB PO SCH (06:08)
[2017-07-22] MEDS: LACTOBACILLUS Acidoph/Bulgar (LACTINEX/FLORANEX) TAB PO SCH ×3 (06:12→16:55)
[2017-07-22] MEDS: PANTOPRAZOLE 20 MG TABLET (PROTONIX) PO SCH (06:12)
[2017-07-22 07:42] LABS: CALCIUM PH 7.32
--- NOTE | 2017-07-22 08:39 | Occupational Ther Daily Note ---
OT Current Status-Daily Note Subjective P alert, sitting in bed. Agreed to therapy. No c/o pain. C/o dizziness and SOB when sitting up/transferring. Cleared in 1-2 minutes. Mental Status/Objective Patient Orientation: Person, Place, Time, Situation Functional [place] Measure 0=Not Assessed/NA 4=Minimal Assistance 1=Total Assistance 5=Supervision or Setup 2=Maximal Assistance 6=Modified [place] 3=Moderate Assistance 7=Complete [place] Attachments: Colostomy/Ileostomy, Other-See Comments Trach ADL-Treatment Co treatment with PT. Due to pt's weakness and low fatigue levels, skill treatment needed. PT worked on transfers, body mechanics and sitting balance, while OT worked on ADL's such as bathing, grooming, and dressing. Functional [place] Measure 0=Not Assessed/NA 4=Minimal Assistance 1=Total Assistance 5=Supervision or Setup 2=Maximal Assistance 6=Modified [place] 3=Moderate Assistance 7=Complete IndependenceIRFPAI Quality Coding Scale 6 Independent with activity with or without an assistive device 5 Patient requires set up or clean up by helper. Patient completes activity by themselves 4 Supervision or touching assist (CGA). [place] provide cues , steadying assist 3 The helper provides less than half the effort to complete the activity 2 The helper provides more than half the effort to complete the activity 1 Dependent. The helper does all the effort to complete an activity 7 Patient refused to complete or attempt activity 9 The patient did not perform the activity before the current illness or injury 88 Not attempted due to Medical conditions or safety concerns Grooming (FIM): 3 (While seated, pt able to wash face after set up. Completed brushing teeth after set up, hanging head forward to reach whole mouth. Required min A to hold forward leaning position to spit. Dependent for combing hair. ) Bathing (FIM): 3 (After set up, pt able to wash arms to below armpit, upper legs, abdomen, and perineal area. Assistance needed to bathe all other areas. ) Bathing Location: L Arm, R Arm, L Upper Leg, R Upper Leg, Abdomen, Perineal Area Upper Body (FIM): 2 (Pt able to manipulate clothing to put arms in holes of bra and shirt. Assistance to pull up shoulders, over head, and down body. ) Lower Body Dressing (FIM): 1 (Pt dependent for donning and doffing lower body clothing. ) Transfers (B, C, W/C) (FIM): 2 (Pt requires max A for stand pivot transfers. ) Shower Transfer(FIM): 2 (Pt requires max A to transfer to rolling shower chair then transported to shower in chair.) Other Treatment Pt pushed in w/c to therapy gym. Sat on edge of mat working on core skills to increase balance. Took 2 minutes to catch breath after transferring to sit up. Pt leaned side to side with wrist and elbow joints blocked in order to perform weightbearing through wrist, elbows, and shoulders to increase strength in UE and core muscles, needing mod A to block joints and keep balance. Pt took time in between to catch breath. After therapy, pt left in care of PT. All needs met. OT Short Term Goals Short Term Goals Time Frame: Jul 30, 2017 Eating(FIM): 4 Grooming(FIM): 4 Bathing(FIM): 3 Upper Body Dressing(FIM): 3 Lower Body Dressing(FIM): 3 Toileting(FIM): 3 Transfers (B,C,W/C) (FIM): 3 Toilet/Commode Transfer(FIM): 3 Shower Transfer(FIM): 3 Additional Short Term Goals: 1-Demonstrate ADL Tasks, 2-Verbalize Understanding , 3-ImproveStrength/Carlos A 1=Demonstrate adherence to instructed precautions during ADL tasks. 2=Patient will verbalize/demonstrate understanding of assistive devices/ modifications for ADL. 3=Patient will improve strength/tolerance for activity to enable patient to perform ADL's. OT Custodial Goals Custodial Goals Time Frame: Aug 13, 2017 Eating (FIM): 5 Eating (QC): 5 Groomin Oral Hygiene (QC): 5 Bathing(FIM): 5 Shower/Bathe Self (QC): 4 Upper Body Dressing(FIM): 5 Upper Body Dressing (QC): 4 Lower Body Dressing(FIM): 5 Lower Body Dressing (QC): 4 On/Off Footwear (QC): 4 Toileting(FIM): 5 Toileting Hygiene (QC): 4 Transfers (B,C,W/C) (FIM): 5 Toilet/Commode Transfer(FIM): 5 Toilet/Commode Transfer (QC): 4 Tub Transfer(FIM): 5 Shower Transfer(FIM): 4 Additional Goals: 1-Demonstrate ADL Tasks, 2-Verbalize Understanding, 3- ImproveStrength/Carlos A 1=Demonstrate adherence to instructed precautions during ADL tasks. 2=Patient will verbalize/demonstrate understanding of assistive devices/ modifications for ADL. 3=Patient will improve strength/tolerance for activity to enable patient to perform ADL's. OT Education/Plan Discharge Recommendations Plan/Recommendations: Continue POC Treatment Plan/Plan of Care Patient would benefit from OT for education, treatment and training to promote independence in ADL's, mobility, safety and/or upper extremity function for ADL' s. Plan of Care: ADL Retraining, Caregiver Training, Functional Mobility, Group Exercise/Act as Ind, UE Funct Exercise/Act Treatment Duration: Aug 13, 2017 Frequency: At least 5-7 days/Wk (IRF) Estimated Hrs Per Day: 1.5 hours per day Agreement: Yes Rehab Potential: Good Time/GCodes Start Time: 07:30 Stop Time: 08:30 Total Time Billed (hr/min): 60 Billed Treatment Time 1 visit, ADL 3 (45 minutes) FA 1 (15 minutes) Individual Treatment Time: 3890-4288 Co Treatment Time: 9058-3457 LILY INMAN Jul 22, 2017 08:39
[2017-07-22] MEDS: LOSARTAN 50 MG (COZAAR) TAB PO SCH (08:51)
[2017-07-22] MEDS: ASPIRIN E.C. 81 MG (ECOTRIN) TAB PO SCH (08:51)
[2017-07-22] MEDS: ALPRAZolam 0.5 MG (XANAX) TAB PO SCH ×3 (08:51→20:34)
[2017-07-22] MEDS: buPROPion SR 150 MG (WELLBUTRIN SR) TAB PO SCH (08:51)
[2017-07-22] MEDS: risperiDONE 0.25 MG (RisperDAL) TAB PO SCH (08:51)
--- NOTE | 2017-07-22 09:04 | Physical Therapy Daily Note ---
PT Daily Note-Current Subjective Pt was seated in wheelchair finishing shower with OT proir to tx. Pt was lying in bed with nurse call, radha, all needs within reach post tx. Pain Numeric Pain Scale: 8 Location Body Site: Back Pain Description: Ache Mental Status Patient Orientation: Normal For Age Attachments: Colostomy/Ileostomy, Reynolds Catheter Transfers Functional [place] Measure 0=Not Assessed/NA 4=Minimal Assistance 1=Total Assistance 5=Supervision or Setup 2=Maximal Assistance 6=Modified [place] 3=Moderate Assistance 7=Complete IndependenceIRFPAI Quality Coding Scale 6 Independent with activity with or without an assistive device 5 Patient requires set up or clean up by helper. Patient completes activity by themselves 4 Supervision or touching assist (CGA). [place] provide cues , steadying assist 3 The helper provides less than half the effort to complete the activity 2 The helper provides more than half the effort to complete the activity 1 Dependent. The helper does all the effort to complete an activity 7 Patient refused to complete or attempt activity 9 The patient did not perform the activity before the current illness or injury 88 Not attempted due to Medical conditions or safety concerns Transfers (B, C, W/C) (FIM): 1 Scootin Rollin Supine to/from Sit: 1 Sit to/from Stand: 1 Pt requires total assistance with all transfers and bed mobility. Pt is frequently cued to assist with movement. Gait Training Does the Patient Walk?: No and Walking Goal IS indicated Exercises Seated Therapy Exercises: Ankle pumps, Long arc quads, Hip flexion, Glut set Seated Reps: 20 Treatments Pt sits at the edge of mat and requires min assist for safety. Pt completes weight shifts in all directions and is cued for looking up while seated, has tendency to let head and neck fall forward. Pt completes seated exercises to help increase functional strengthening and weight shifts to facilitate trunk strengthening. Assessment Current Status: Fair Progress Pt requires frequent cueing to assist with transfers and bed mobility. OT completes showering and dressing while PT completes all transfers and assists with posture and weight shifting. PT Short Term Goals Short Term Goals Time Frame: Jul 30, 2017 Transfers (B,C,W/C) (FIM): 3 Gait (FIM): 2 Distance (FIM): 2=325-12 ft Gait Assistive Device: FWW Wheelchair Distance: 45 PT Half-Way Goals Veterinary Anatomist Goals PT Half-Way Goals Time Frame: Aug 13, 2017 Transfers (B,C,W/C) (FIM): 6 Sit to Lying (QC): 6 Lying-Sitting on Side/Bed(QC): 6 Sit to Stand (QC): 6 Rollin Roll Left to Right (QC): 6 Chair/Bia-xg-Vxdaw Xfer(QC): 6 Car Transfer (QC): 5 Does the Patient Walk: No and Walking Goal IS indicated Gait (FIM): 6 Gait distance (FIM): 3=150 ft Walk 10 feet (QC): 6 Walk 10ft-Uneven Surface(QC): 6 Walk 50ft with 2 Turns (QC): 6 Walk 150 ft (QC): 6 Gait Level of Assist: 6 Gait Assistive Device: FWW Stairs (FIM): 5 # of Steps: 8 1 Step (curb) (QC): 6 4 Steps (QC): 6 12 Steps (QC): 5 Stairs Level Of Assist: 6 Picking up an Object (QC): 5 PT Plan Problem List Problem List: Activity Tolerance, Functional Strength, Safety, Balance, Gait, Transfer, Bed Mobility, ROM Treatment/Plan Treatment Plan: Continue Plan of Care Treatment Plan: Bed Mobility, Education, Functional Activity Carlos A, Functional Strength, Group Therapy, Gait, Safety, Therapeutic Exercise, Transfers Treatment Duration: Aug 13, 2017 Frequency: At least 5-7 days/Wk (IRF) Estimated Hrs Per Day: 1.5 hours per day Patient and/or Family Agrees t: Yes Safety Risks/Education Patient Education: Transfer Techniques, Reviewed Precautions, Correct Positioning, W/C Management, Safety Issues Teaching Recipient: Patient Teaching Methods: Demonstration, Discussion Response to Teaching: Verbalize Understanding, Reinforcement Needed Time/GCodes Time In: 800 Time Out: 900 Total Billed Treatment Time: 60 Total Billed Treatment 1 visit 40 FA 20 EX 30 min were co-treated with OT, OT worked on shower, dressing, and grooming while PT worked on balance, trunk balance during these activities, and transfers STEPHANE KC PT Jul 22, 2017 09:04
--- NOTE | 2017-07-22 10:24 | PM & R (SOAP) Progress Note ---
Subjective Time Seen by Provider: 09:00 Subjective/Events-last exam Patient was seen in her room this AM Therapy notes reviewed Patient dependent for transfers.Appreciate DR Noe notes and orders..Cuurent labs noted .Colostomy functioning Bladder Reynolds catheter Objective Exam Last Set of Vital Signs Vital Signs Date Time Temp Pulse Resp B/P (MAP) Pulse Ox O2 Delivery O2 Flow Rate FiO2 07/22/17 08:45 Room Air 07/22/17 05:04 97.2 84 18 121/62 98 Capillary Refill : I&O Intake and Output 07/23/17 00:00 Intake Total 200 ml Output Total 650 ml Balance -450 ml Intake Oral 200 ml Output Urine Total 650 ml General: Alert, Oriented X3, Cooperative, No Acute Distress HEENT: Atraumatic, PERRLA, EOMI, Mucous Memb Moist/[place] Neck: Supple, No JVD, Other (trach plugged) Lungs: Clear to Auscultation Heart: Regular Rate Abdomen: Normal Bowel Sounds, Soft, No Tenderness, Other (colostomy functioning ) Neuro: Other (2/5/strength both lower extremities Sensation intact Cognition intact ST assessing swallow) Results Lab Laboratory Tests 07/21/17 10:45: Glucometer 184H 07/21/17 13:19: Ionized Calcium (Measured) 1.45H, Ionized Calcium pH 7.32, Ionized Calcium ( Corrected) 1.39H Assessment/Plan Assessment Crtical illness myopathy S/P trach now plugged S/P Peg tube removal/ S/P colostomy for perf orated bowel DR Ng HTN Chronic constipation Elevated LFTS Hypercalcemia Hypomagnesemia Plan Continue PT/OT/ST F/U with hospitalist in lieu of pcp and DR Ng re abnormal labs Team Conference later today-See report for full functional update and POC Consult DR Marium do possible decannulation-Awating his consult-he returns later this week See orders. TRIP SIERRA MD Jul 22, 2017 10:24
--- NOTE | 2017-07-22 12:55 | Occupational Ther Daily Note ---
OT Current Status-Daily Note Subjective Pt alert, sitting in chair feeling fatigued from earlier therapy. Agreed to therapy. Frustrated because can't see own improvements being made. Mental Status/Objective Patient Orientation: Person, Place, Time, Situation Functional [place] Measure 0=Not Assessed/NA 4=Minimal Assistance 1=Total Assistance 5=Supervision or Setup 2=Maximal Assistance 6=Modified [place] 3=Moderate Assistance 7=Complete [place] ADL-Treatment Functional [place] Measure 0=Not Assessed/NA 4=Minimal Assistance 1=Total Assistance 5=Supervision or Setup 2=Maximal Assistance 6=Modified [place] 3=Moderate Assistance 7=Complete IndependenceIRFPAI Quality Coding Scale 6 Independent with activity with or without an assistive device 5 Patient requires set up or clean up by helper. Patient completes activity by themselves 4 Supervision or touching assist (CGA). [place] provide cues , steadying assist 3 The helper provides less than half the effort to complete the activity 2 The helper provides more than half the effort to complete the activity 1 Dependent. The helper does all the effort to complete an activity 7 Patient refused to complete or attempt activity 9 The patient did not perform the activity before the current illness or injury 88 Not attempted due to Medical conditions or safety concerns Other Treatment Pt participated in therapy while sitting up in bed. Pt performed elbow flexion and extension using dowel laura 2 sets 10x. Tolerated well. Pt performed chest press with dowel laura 2 sets 10x, needing assistance to extend elbows and laura to shoulder level. With dowel bar exercises pt has loose rotary surface grinder with L hand, needing to re-situate often. R rotary surface grinder is loose but able to hold on. Pt completed exercises to increase strength, ROM, and activity tolerance for daily living tasks. Pt then squeezed balloon using B UE, working on strength of UE and core, and gross grasp manipulation skills. OTAS and pt tossed balloon back and forth working on hand-eye coordination, activity tolerance, and AROM in UE. Pt tolerated session well. After therapy pt sitting in bed with call light and phone within reach. All needs met in room. OT Short Term Goals Short Term Goals Time Frame: Jul 30, 2017 Eating(FIM): 4 Grooming(FIM): 4 Bathing(FIM): 3 Upper Body Dressing(FIM): 3 Lower Body Dressing(FIM): 3 Toileting(FIM): 3 Transfers (B,C,W/C) (FIM): 3 Toilet/Commode Transfer(FIM): 3 Shower Transfer(FIM): 3 Additional Short Term Goals: 1-Demonstrate ADL Tasks, 2-Verbalize Understanding , 3-ImproveStrength/Carlos A 1=Demonstrate adherence to instructed precautions during ADL tasks. 2=Patient will verbalize/demonstrate understanding of assistive devices/ modifications for ADL. 3=Patient will improve strength/tolerance for activity to enable patient to perform ADL's. OT Product Management Consultant Goals Product Management Consultant Goals Time Frame: Aug 13, 2017 Eating (FIM): 5 Eating (QC): 5 Groomin Oral Hygiene (QC): 5 Bathing(FIM): 5 Shower/Bathe Self (QC): 4 Upper Body Dressing(FIM): 5 Upper Body Dressing (QC): 4 Lower Body Dressing(FIM): 5 Lower Body Dressing (QC): 4 On/Off Footwear (QC): 4 Toileting(FIM): 5 Toileting Hygiene (QC): 4 Transfers (B,C,W/C) (FIM): 5 Toilet/Commode Transfer(FIM): 5 Toilet/Commode Transfer (QC): 4 Tub Transfer(FIM): 5 Shower Transfer(FIM): 4 Additional Goals: 1-Demonstrate ADL Tasks, 2-Verbalize Understanding, 3- ImproveStrength/Carlos A 1=Demonstrate adherence to instructed precautions during ADL tasks. 2=Patient will verbalize/demonstrate understanding of assistive devices/ modifications for ADL. 3=Patient will improve strength/tolerance for activity to enable patient to perform ADL's. OT Education/Plan Discharge Recommendations Plan/Recommendations: Continue POC Treatment Plan/Plan of Care Patient would benefit from OT for education, treatment and training to promote independence in ADL's, mobility, safety and/or upper extremity function for ADL' s. Plan of Care: ADL Retraining, Caregiver Training, Functional Mobility, Group Exercise/Act as Ind, UE Funct Exercise/Act Treatment Duration: Aug 13, 2017 Frequency: At least 5-7 days/Wk (IRF) Estimated Hrs Per Day: 1.5 hours per day Agreement: Yes Rehab Potential: Good Time/GCodes Start Time: 11:30 Stop Time: 12:00 Total Time Billed (hr/min): 30 Billed Treatment Time 1 visit, EX 2 (30 minutes) LILY INMAN Jul 22, 2017 12:55
--- NOTE | 2017-07-22 14:52 | Physical Therapy Daily Note ---
PT Daily Note-Current Subjective Pt. agrees to Rx and states she has been hospitalized for 3 mo. States that the cardiac meds she has had to be on most of her life had a side affect of constipation which brought this whole" nightmare" on Pain Numeric Pain Scale: 0-No Pain Mental Status Patient Orientation: Normal For Age Attachments: Colostomy/Ileostomy, Reynolds Catheter Transfers Functional [place] Measure 0=Not Assessed/NA 4=Minimal Assistance 1=Total Assistance 5=Supervision or Setup 2=Maximal Assistance 6=Modified [place] 3=Moderate Assistance 7=Complete IndependenceIRFPAI Quality Coding Scale 6 Independent with activity with or without an assistive device 5 Patient requires set up or clean up by helper. Patient completes activity by themselves 4 Supervision or touching assist (CGA). [place] provide cues , steadying assist 3 The helper provides less than half the effort to complete the activity 2 The helper provides more than half the effort to complete the activity 1 Dependent. The helper does all the effort to complete an activity 7 Patient refused to complete or attempt activity 9 The patient did not perform the activity before the current illness or injury 88 Not attempted due to Medical conditions or safety concerns rolling left and right x 3 each with mod assist as this FAN BLADE TRUER initiated the roll with bed pad. Pt. reaching with each hand assisting with opposite hand . 75% of rolling done by this therapist per bed pad Exercises Supine Ex: Bridging, Ankle pumps, Quad Set, Rolling (assisted), Glut sets, Heel Slides (assisted, mass extension with guidance and min resistance), Short Arc Quads, Scooting (assisted), Straight leg raise (assisted), Hip abd/add ( assisted) educated pt. in 3 isometric exercises she can accomplish to work on strength while she is alone: Qsets, ankle pumps and glut sets Treatments pt. on right side positioned with support via pillows behind back, and between LEs, pt. states she has always slept on her side historically and finds it comfortable, pressure call carreon at hand Assessment Current Status: Good Progress debilitated, dependent for all mobility PT Short Term Goals Short Term Goals Time Frame: Jul 30, 2017 Transfers (B,C,W/C) (FIM): 3 Gait (FIM): 2 Distance (FIM): 8=499-08 ft Gait Assistive Device: FWW Wheelchair Distance: 45 PT Rn Medical Surgical Goals Rn Medical Surgical Goals PT Rn Medical Surgical Goals Time Frame: Aug 13, 2017 Transfers (B,C,W/C) (FIM): 6 Sit to Lying (QC): 6 Lying-Sitting on Side/Bed(QC): 6 Sit to Stand (QC): 6 Rollin Roll Left to Right (QC): 6 Chair/Fjz-io-Zszuw Xfer(QC): 6 Car Transfer (QC): 5 Does the Patient Walk: No and Walking Goal IS indicated Gait (FIM): 6 Gait distance (FIM): 3=150 ft Walk 10 feet (QC): 6 Walk 10ft-Uneven Surface(QC): 6 Walk 50ft with 2 Turns (QC): 6 Walk 150 ft (QC): 6 Gait Level of Assist: 6 Gait Assistive Device: FWW Stairs (FIM): 5 # of Steps: 8 1 Step (curb) (QC): 6 4 Steps (QC): 6 12 Steps (QC): 5 Stairs Level Of Assist: 6 Picking up an Object (QC): 5 PT Plan Treatment/Plan Treatment Plan: Continue Plan of Care Treatment Plan: Bed Mobility, Education, Functional Activity Carlos A, Functional Strength, Group Therapy, Gait, Safety, Therapeutic Exercise, Transfers Treatment Duration: Aug 13, 2017 Frequency: At least 5-7 days/Wk (IRF) Estimated Hrs Per Day: 1.5 hours per day Patient and/or Family Agrees t: Yes Safety Risks/Education Patient Education: Issued Written HEP, Correct Positioning, Disease Process ( discussed the process of critical care myopathy and the slow rehab process), Safety Issues Time/GCodes Time In: 1410 Time Out: 1440 Total Billed Treatment Time: 30 Total Billed Treatment 1,EX20m,FA10m G Codes Necessary: No HARMAN XIONG FAN BLADE TRUER Jul 22, 2017 14:51
[2017-07-22 18:00] VITALS: BP 98/60
[2017-07-22] MEDS: POLYETHYLENE GLYCOL 17 GM (MIRALAX) PACK PO SCH (20:34)
[2017-07-23 05:10] VITALS: BP 116/68
[2017-07-23] MEDS: LEVOTHYROXINE 100 MCG (LEVOTHROID) TAB PO SCH (06:04)
[2017-07-23] MEDS: PROPAFENONE 150 MG (RYTHMOL) TABLET PO SCH ×3 (06:04→21:25)
[2017-07-23] MEDS: PANTOPRAZOLE 20 MG TABLET (PROTONIX) PO SCH (06:04)
[2017-07-23] MEDS: predniSONE 5 MG TAB PO SCH (06:04)
[2017-07-23] MEDS: LACTOBACILLUS Acidoph/Bulgar (LACTINEX/FLORANEX) TAB PO SCH ×3 (06:04→16:22)
--- NOTE | 2017-07-23 07:57 | Occupational Ther Daily Note ---
OT Current Status-Daily Note Subjective Pt alert, sitting in bed. States that catheter was removed but put back in, unable to urinate. Tired didn't sleep well. Agrees to therapy. Dizziness/SOB when sits up/transfers, cleared in 1 minute. Mental Status/Objective Patient Orientation: Person, Place, Time, Situation Functional [place] Measure 0=Not Assessed/NA 4=Minimal Assistance 1=Total Assistance 5=Supervision or Setup 2=Maximal Assistance 6=Modified [place] 3=Moderate Assistance 7=Complete [place] Attachments: Colostomy/Ileostomy, Other-See Comments Trach ADL-Treatment Functional [place] Measure 0=Not Assessed/NA 4=Minimal Assistance 1=Total Assistance 5=Supervision or Setup 2=Maximal Assistance 6=Modified [place] 3=Moderate Assistance 7=Complete IndependenceIRFPAI Quality Coding Scale 6 Independent with activity with or without an assistive device 5 Patient requires set up or clean up by helper. Patient completes activity by themselves 4 Supervision or touching assist (CGA). [place] provide cues , steadying assist 3 The helper provides less than half the effort to complete the activity 2 The helper provides more than half the effort to complete the activity 1 Dependent. The helper does all the effort to complete an activity 7 Patient refused to complete or attempt activity 9 The patient did not perform the activity before the current illness or injury 88 Not attempted due to Medical conditions or safety concerns Grooming (FIM): 3 (Pt able to brush teeth while seated at sink. Assistance needed to sustain leaning forward position while spitting. Pt able to wash face , requiring assistance to get fully clean due to low ROM and strength. Dependent for combing hair. ) Upper Body (FIM): 3 (Pt able to manipulate shirt to find holes, put arms through, and pull up to below shoulders. Assistance needed to pan puller head and down body. ) Lower Body Dressing (FIM): 1 (Needs assistance putting feet through holes in pants and pulling up legs. Max A to stand while DODD/L pulls pants over hips. ) On/Off Footwear (QC): 1 (Dependent donning and doffing footwear. ) Transfers (B, C, W/C) (FIM): 2 (Pt requires max A for stand pivot transfer. ) Pt declined shower or sponge bath at this time. After therapy, sitting in w/c with call light and phone in reach. All needs met in room. Other Treatment OT Short Term Goals Short Term Goals Time Frame: Jul 30, 2017 Eating(FIM): 4 Grooming(FIM): 4 Bathing(FIM): 3 Upper Body Dressing(FIM): 3 Lower Body Dressing(FIM): 3 Toileting(FIM): 3 Transfers (B,C,W/C) (FIM): 3 Toilet/Commode Transfer(FIM): 3 Shower Transfer(FIM): 3 Additional Short Term Goals: 1-Demonstrate ADL Tasks, 2-Verbalize Understanding , 3-ImproveStrength/Carlos A 1=Demonstrate adherence to instructed precautions during ADL tasks. 2=Patient will verbalize/demonstrate understanding of assistive devices/ modifications for ADL. 3=Patient will improve strength/tolerance for activity to enable patient to perform ADL's. OT Station Repairer Goals Station Repairer Goals Time Frame: Aug 13, 2017 Eating (FIM): 5 Eating (QC): 5 Groomin Oral Hygiene (QC): 5 Bathing(FIM): 5 Shower/Bathe Self (QC): 4 Upper Body Dressing(FIM): 5 Upper Body Dressing (QC): 4 Lower Body Dressing(FIM): 5 Lower Body Dressing (QC): 4 On/Off Footwear (QC): 4 Toileting(FIM): 5 Toileting Hygiene (QC): 4 Transfers (B,C,W/C) (FIM): 5 Toilet/Commode Transfer(FIM): 5 Toilet/Commode Transfer (QC): 4 Tub Transfer(FIM): 5 Shower Transfer(FIM): 4 Additional Goals: 1-Demonstrate ADL Tasks, 2-Verbalize Understanding, 3- ImproveStrength/Carlos A 1=Demonstrate adherence to instructed precautions during ADL tasks. 2=Patient will verbalize/demonstrate understanding of assistive devices/ modifications for ADL. 3=Patient will improve strength/tolerance for activity to enable patient to perform ADL's. OT Education/Plan Discharge Recommendations Plan/Recommendations: Continue POC Treatment Plan/Plan of Care Patient would benefit from OT for education, treatment and training to promote independence in ADL's, mobility, safety and/or upper extremity function for ADL' s. Plan of Care: ADL Retraining, Caregiver Training, Functional Mobility, Group Exercise/Act as Ind, UE Funct Exercise/Act Treatment Duration: Aug 13, 2017 Frequency: At least 5-7 days/Wk (IRF) Estimated Hrs Per Day: 1.5 hours per day Agreement: Yes Rehab Potential: Good Time/GCodes Start Time: 07:30 Stop Time: 08:00 Total Time Billed (hr/min): 30 Billed Treatment Time 1 visit, ADL 2 (30 minutes) LILY INMAN Jul 23, 2017 07:57
--- NOTE | 2017-07-23 08:02 | Pulmonary Consultation ---
History of Present Illness History of Present Illness Date of Consultation 07/23/17 07:57 Time Seen by Provider: 07:57 Date of Admission History of Present Illness 61yo transferred to in rehab from [facility]. PT was admitted to our ICU 04/25/17 post sigmoid perforation and fecal peritonitis. Pt required ventilator post op and was transferred to [facility] for weaning. She had also developed multiple abdominal abscesses that required intervention. She currently still has a tracheostomy tube in place which is currently capped. She is tolerating mechanical soft diet. I am consulted for pulmonary management and evaluation for tracheostomy tube removal. Allergies and Home Medications Allergies Coded Allergies: ciprofloxacin (Verified Allergy, Mild, 04/25/17) lisinopril (Verified Allergy, Mild, 04/25/17) cefuroxime (Verified Allergy, Unknown, 04/25/17) Home Medications Estrogen,Lilia/Me-Testosterone 1 Each Tablet, 1 TAB PO DAILY, (Reported) Levothyroxine Sodium 75 Mcg Tablet, 75 MCG PO [id number], (Reported) Olmesartan Medoxomil 40 Mg Tablet, 40 MG PO DAILY, (Reported) Propafenone HCl 225 Mg Tablet, 225 MG PO TID, (Reported) Simvastatin 20 Mg Tablet, 20 MG PO DAILY, (Reported) Terazosin HCl 1 Mg Capsule, 1 MG PO DAILY, (Reported) Past Hxiqcmz-Lnqxnx-Ygvzse Hx Patient Social History Alcohol Use: Denies Use Recreational Drug Use: No Smoking Status: Former Smoker Former Smoker, Quit: Jul 16, 2015 Recent Foreign Travel: No Contact w/Someone Who Travel: No Recent Infectious Disease Expo: No Recent Hopitalizations: Yes ([facility]) Seasonal Allergies Seasonal Allergies: Yes Surgeries History of Surgeries: Yes Surgeries: Abdominal, Appendectomy, Cardiac, Gallbladder, Hysterectomy, Orthopedic, Renal, Thyroidectomy Respiratory History of Respiratory Disorde: Yes (Resp failure, on ventilator at [facility]) Currently Using CPAP: No Currently Using BIPAP: No Cardiovascular History of Cardiac Disorders: Yes (SVT status post ablation, mitral valve prolapse) Cardiac Disorders: Hypertension, Irregular Heartbeat (V. tach) Neurological History of Neurological Disord: No Reproductive System : No Genitourinary History of Genitourinary Disor: Yes (green catheter in, has Rt kidney stent for B/P) Gastrointestinal History of Gastrointestinal Di: Yes (perforated bowel) Gastrointestinal Disorders: Chronic Constipation Musculoskeletal History of Musculoskeletal Dis: Yes Musculoskeletal Disorders: Arthritis Endocrine History of Endocrine Disorders: Yes (thyroidectomy) Endocrine Disorders: Hypothyroidsim HEENT History of HEENT Disorders: No (wears reading glasses) Loss of Vision: Denies Hearing Impairment: Denies Cancer History of Cancer: No Psychosocial History of Psychiatric Problem: Yes Behavioral Health Disorders: Anxiety, Depression Integumentary History of Skin or Integumenta: Yes (thin, bruising) Blood Transfusions History of Blood Disorders: No Adverse Reaction to a Blood Tr: No Review of Systems Time Seen by Provider: 14:22 Exam Exam Vital Signs Date Time Temp Pulse Resp B/P (MAP) Pulse Ox O2 Delivery O2 Flow Rate FiO2 07/23/17 07:15 93 Room Air 07/23/17 05:10 97.9 86 18 116/68 99 Room Air 07/22/17 21:00 Room Air 07/22/17 18:00 97.1 97 20 98/60 98 Room Air 07/22/17 14:56 95 Room Air 07/22/17 08:45 Room Air General Appearance: Cachetic HEENT: Normal ENT Inspection Neck: Supple Respiratory: Lungs Clear, Normal Breath Sounds, No Accessory Muscle Use, No Respiratory Distress Cardiovascular: Regular Rate, Rhythm, No Gallop, No Murmur Extremity: Other (muscle wasting) Neurologic/Psychiatric: Alert, Motor Weakness (lower extremity dorsal flexion and plantar finger flexion about 4+ quads 0) Skin: Pallor Lymphatic: No Adenopathy Assessment/Plan Assessment/Plan s/p Resp Failure requiring Vent Support - resolved -tracheostomy - will remove -stoma- dressing dry/intact -tolerating RA and not requiring oxygen Clinical Quality Measures DVT/VTE Risk/Contraindication: Risk Factor Score Per Nursin RFS Level Per Nursing on Admit: 3=High CHRISS ARTIS DO Jul 23, 2017 08:02
--- NOTE | 2017-07-23 08:50 | PM & R (SOAP) Progress Note ---
Subjective Time Seen by Provider: 08:10 Subjective/Events-last exam Patient was seen in her roomthis AM Failed TOV last evening Discussed with RN last evening Reynolds catheter reinserted DR Pickett consulted Discussed POC with patient DR Marium doran soon to see patient re decannulation-Explained to patient that DR Causey has been away but returning soon.Patient fairly dependent for transfers Objective Exam Last Set of Vital Signs Vital Signs Date Time Temp Pulse Resp B/P (MAP) Pulse Ox O2 Delivery O2 Flow Rate FiO2 07/23/17 07:15 93 Room Air 07/23/17 05:10 97.9 86 18 116/68 Capillary Refill : I&O Intake and Output 07/24/17 00:00 Intake Total 250 ml Output Total 825 ml Balance -575 ml Intake Oral 250 ml Output Urine Total 325 ml Stool Total 500 ml General: Alert, Oriented X3, Cooperative, No Acute Distress HEENT: Atraumatic, PERRLA, EOMI, Mucous Memb Moist/[place] Neck: Supple, No JVD, Other (trach plugged) Lungs: Clear to Auscultation Heart: Regular Rate Abdomen: Normal Bowel Sounds, Soft, No Tenderness, Other (colostomy functioning ) Neuro: Other (2/5/strength both lower extremities Sensation intact Cognition intact ST assessing swallow) Results Lab Laboratory Tests 07/21/17 10:45: Glucometer 184H 07/21/17 13:19: Ionized Calcium (Measured) 1.45H, Ionized Calcium pH 7.32, Ionized Calcium ( Corrected) 1.39H Assessment/Plan Assessment Crtical illness myopathy S/P trach now plugged S/P Peg tube removal/ S/P colostomy for perforated bowel DR Ng HTN Chronic constipation Elevated LFTS Hypercalcemia Hypomagnesemia Urinary retention -Reynolds reinserted Plan Continue PT/OT/ST F/U with hospitalist in lieu of pcp and DR Ng re abnormal labs Team Conference held yesterday-See report for full functional update and POC Consult DR Marium CRESPO re possible decannulation-Awating his consult-he returns later this week Dr Pickett consulted re urinary retention [place] [facility] consulted re reactive anxiety TRIP SIERRA MD Jul 23, 2017 08:50
[2017-07-23] MEDS: buPROPion SR 150 MG (WELLBUTRIN SR) TAB PO SCH (08:57)
[2017-07-23] MEDS: ALPRAZolam 0.5 MG (XANAX) TAB PO SCH ×3 (08:57→21:25)
[2017-07-23] MEDS: risperiDONE 0.25 MG (RisperDAL) TAB PO SCH (08:57)
--- NOTE | 2017-07-23 08:57 | Physical Therapy Daily Note ---
PT Daily Note-Current Subjective Pt was seated in wheelchair in room prior to tx and agreeable to PT. Pt reports she did not sleep well last night. Pt was lying in bed with nurse call, jeriy, all needs in reach post tx. Pain Numeric Pain Scale: 0-No Pain Location: No Pain Reported Mental Status Patient Orientation: Normal For Age Attachments: Colostomy/Ileostomy, Reynolds Catheter Transfers Functional [place] Measure 0=Not Assessed/NA 4=Minimal Assistance 1=Total Assistance 5=Supervision or Setup 2=Maximal Assistance 6=Modified [place] 3=Moderate Assistance 7=Complete IndependenceIRFPAI Quality Coding Scale 6 Independent with activity with or without an assistive device 5 Patient requires set up or clean up by helper. Patient completes activity by themselves 4 Supervision or touching assist (CGA). [place] provide cues , steadying assist 3 The helper provides less than half the effort to complete the activity 2 The helper provides more than half the effort to complete the activity 1 Dependent. The helper does all the effort to complete an activity 7 Patient refused to complete or attempt activity 9 The patient did not perform the activity before the current illness or injury 88 Not attempted due to Medical conditions or safety concerns Transfers (B, C, W/C) (FIM): 1 Scootin Supine to/from Sit: 1 Sit to/from Stand: 1 Pt is dependent in all bed mobility and transfer. Pt is cued to support self with arms and legs with movement. Gait Training Does the Patient Walk?: No and Walking Goal IS indicated Wheelchair Training Does the Pt Use a Wheelchair?: Yes Wheelchair (FIM): 1 Wheelchair Distance: 1=up to 49 ft Distance: 40' Wheelchair Level of Assist: 4 Type of Wheelchair: Manual Pt requires min assist with wheelchair mobility with corners and requires frequent breaks due to fatigue. Exercises Standing: Weight shifts Standing Reps: 15 Treatments Pt completes weight shifts and mini squats in stand assist lift for balance and functional strengthening. Pt stands for 25 minutes in standing lift to increase upright tolerance and trunk strengthening. Assessment Current Status: Good Progress Pt continues to be dependent with all transfers and bed mobility. Pt requires frequent encouragement. Pt fatigues quickly and is verbally cued for upright posture. PT Short Term Goals Short Term Goals Time Frame: Jul 30, 2017 Transfers (B,C,W/C) (FIM): 3 Gait (FIM): 2 Distance (FIM): 4=664-74 ft Gait Assistive Device: FWW Wheelchair Distance: 45 PT Assisted Goals Assisted Goals PT Assisted Goals Time Frame: Aug 13, 2017 Transfers (B,C,W/C) (FIM): 6 Sit to Lying (QC): 6 Lying-Sitting on Side/Bed(QC): 6 Sit to Stand (QC): 6 Rollin Roll Left to Right (QC): 6 Chair/Pww-si-Efsrp Xfer(QC): 6 Car Transfer (QC): 5 Does the Patient Walk: No and Walking Goal IS indicated Gait (FIM): 6 Gait distance (FIM): 3=150 ft Walk 10 feet (QC): 6 Walk 10ft-Uneven Surface(QC): 6 Walk 50ft with 2 Turns (QC): 6 Walk 150 ft (QC): 6 Gait Level of Assist: 6 Gait Assistive Device: FWW Stairs (FIM): 5 # of Steps: 8 1 Step (curb) (QC): 6 4 Steps (QC): 6 12 Steps (QC): 5 Stairs Level Of Assist: 6 Picking up an Object (QC): 5 PT Plan Problem List Problem List: Activity Tolerance, Functional Strength, Safety, Balance, Gait, Transfer, Bed Mobility, ROM Treatment/Plan Treatment Plan: Continue Plan of Care Treatment Plan: Bed Mobility, Education, Functional Activity Carlos A, Functional Strength, Group Therapy, Gait, Safety, Therapeutic Exercise, Transfers Treatment Duration: Aug 13, 2017 Frequency: At least 5-7 days/Wk (IRF) Estimated Hrs Per Day: 1.5 hours per day Patient and/or Family Agrees t: Yes Safety Risks/Education Patient Education: Transfer Techniques, Reviewed Precautions, Correct Positioning, W/C Management, Safety Issues Teaching Recipient: Patient Teaching Methods: Demonstration, Discussion Response to Teaching: Verbalize Understanding, Reinforcement Needed Time/GCodes Time In: 800 Time Out: 900 Total Billed Treatment Time: 60 Total Billed Treatment 1 visit 30 FA 15 EX 15 STEPHANE GUZMAN PT Jul 23, 2017 08:57
[2017-07-23] MEDS: LOSARTAN 50 MG (COZAAR) TAB PO SCH (08:58)
[2017-07-23] MEDS: ASPIRIN E.C. 81 MG (ECOTRIN) TAB PO SCH (08:58)
[2017-07-23] MEDS: ENOXAPARIN 40 MG/0.4 ML (LOVENOX) SYR SC SCH (10:22)
--- NOTE | 2017-07-23 11:20 | Progress Note-Hospitalist ---
Progress Note HPI/CC on Admission here for physical therapy to get better and stronger enough to go home. Complains primarily of her buttocks hurting from the pressure. 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 Switch to Lovenox discussed Pt is doing well, no complaints Patient Interview: Pt is appreciative of switch to Lovenox, once daily Colostomy discussed Pt states that she feels weak and fatigued Physical exam stable. Lungs sound perfect. Pt states she has not seen Dr. Horvath for a while and was curious if I kept him updated on her status AFVSS, Pleasant, improved RRR, CTAB No edema Muscle wasting lower legs Assessment: Hypercalcemia Elevated liver function tests mild History of SVT and V. tach rhythm Profound muscle weakness of uncertain etiology other than long-standing critical illness Respiratory failure resolved constipation resolved colostomy operating normally Plan: Miralax Stop Heparin Lovenox 40 once daily Scribed by Teresita Hathaway under the direct supervision of Dr. Santos. DAVY SANTOS DO Jul 23, 2017 11:20
--- NOTE | 2017-07-23 14:39 | Occupational Ther Daily Note ---
OT Current Status-Daily Note Subjective Pt alert, sitting in bed. Feeling fatigued from prior therapy sessions wanting to stay in room. Agreed to therapy. During treatment, pt expressed frustration stating its hard to do things and feeling un-accomplished. After encouragement, pt felt better and continued therapy. Trach has been removed. Family present in room. Mental Status/Objective Patient Orientation: Person, Place, Time, Situation Functional [place] Measure 0=Not Assessed/NA 4=Minimal Assistance 1=Total Assistance 5=Supervision or Setup 2=Maximal Assistance 6=Modified [place] 3=Moderate Assistance 7=Complete [place] Attachments: Reynolds Catheter Other Treatment Pt participated in therapy session in room while sitting up in bed. Pt performed AAROM shoulder flex/abd requiring assist past 90 degrees 10x. AROM wrist flex/ext, supination/pronation 10x. Tolerated well. With dowel bar, pt performed elbow flex/ext and scapular protraction/retraction 2 sets 10x, R loss control manager loose, L loss control manager loose/regrip needed often. Pt stacked cones from one side of table to other using R UE, slid cones across table using L UE. Placed rings on and off of cone, R hand tolerated well requiring many rest breaks, L hand fatiguing requiring assist to sisal picker rings. Pt then lied down to work on breathing techniques to increase relaxation and reduce SOB for functional daily living tasks. After therapy, pt sitting in bed with phone and call light in reach. Family present. All needs met in room. Education OT Patient Education: Other (breathing techniques) Teaching Recipient: Patient, Family Teaching Methods: Demonstration, Discussion Response to Teaching: Verbalize Understanding, Return Demonstration OT Short Term Goals Short Term Goals Time Frame: Jul 30, 2017 Eating(FIM): 4 Grooming(FIM): 4 Bathing(FIM): 3 Upper Body Dressing(FIM): 3 Lower Body Dressing(FIM): 3 Toileting(FIM): 3 Transfers (B,C,W/C) (FIM): 3 Toilet/Commode Transfer(FIM): 3 Shower Transfer(FIM): 3 Additional Short Term Goals: 1-Demonstrate ADL Tasks, 2-Verbalize Understanding , 3-ImproveStrength/Carlos A 1=Demonstrate adherence to instructed precautions during ADL tasks. 2=Patient will verbalize/demonstrate understanding of assistive devices/ modifications for ADL. 3=Patient will improve strength/tolerance for activity to enable patient to perform ADL's. OT Group Home Goals Electrical Lineworker Goals Time Frame: Aug 13, 2017 Eating (FIM): 5 Grooming(FIM): 5 Bathing(FIM): 5 Upper Body Dressing(FIM): 5 Lower Body Dressing(FIM): 5 Toileting(FIM): 5 Transfers (B,C,W/C) (FIM): 5 Toilet/Commode Transfer(FIM): 5 Tub Transfer(FIM): 5 Shower Transfer(FIM): 4 Additional Goals: 1-Demonstrate ADL Tasks, 2-Verbalize Understanding, 3- ImproveStrength/Carlos A 1=Demonstrate adherence to instructed precautions during ADL tasks. 2=Patient will verbalize/demonstrate understanding of assistive devices/ modifications for ADL. 3=Patient will improve strength/tolerance for activity to enable patient to perform ADL's. OT Education/Plan Discharge Recommendations Plan/Recommendations: Continue POC Treatment Plan/Plan of Care Patient would benefit from OT for education, treatment and training to promote independence in ADL's, mobility, safety and/or upper extremity function for ADL' s. Plan of Care: ADL Retraining, Caregiver Training, Functional Mobility, Group Exercise/Act as Ind, UE Funct Exercise/Act Treatment Duration: Aug 13, 2017 Frequency: At least 5-7 days/Wk (IRF) Estimated Hrs Per Day: 1.5 hours per day Agreement: Yes Rehab Potential: Good Time/GCodes Start Time: 12:30 Stop Time: 11:30 Total Time Billed (hr/min): 60 Billed Treatment Time 1 visit, EX 2 (30 minutes) FA 2 (30 minutes) LILY INMAN Jul 23, 2017 14:39
--- NOTE | 2017-07-23 15:03 | Physical Therapy Daily Note ---
PT Daily Note-Current Subjective Pt is lying in bed prior to tx and agreeable to PT. Pt is lying in bed with nurse call, tray, all needs in reach, daughter in room post-tx. Pain Numeric Pain Scale: 0-No Pain Location: No Pain Reported Mental Status Patient Orientation: Normal For Age Attachments: Colostomy/Ileostomy, Reynolds Catheter Transfers Functional [place] Measure 0=Not Assessed/NA 4=Minimal Assistance 1=Total Assistance 5=Supervision or Setup 2=Maximal Assistance 6=Modified [place] 3=Moderate Assistance 7=Complete IndependenceIRFPAI Quality Coding Scale 6 Independent with activity with or without an assistive device 5 Patient requires set up or clean up by helper. Patient completes activity by themselves 4 Supervision or touching assist (CGA). [place] provide cues , steadying assist 3 The helper provides less than half the effort to complete the activity 2 The helper provides more than half the effort to complete the activity 1 Dependent. The helper does all the effort to complete an activity 7 Patient refused to complete or attempt activity 9 The patient did not perform the activity before the current illness or injury 88 Not attempted due to Medical conditions or safety concerns Transfers (B, C, W/C) (FIM): 1 Scootin Exercises Supine Ex: Bridging, Ankle pumps, Quad Set, Glut sets, Heel Slides, Short Arc Quads, Straight leg raise, Hip abd/add Supine Reps: 16 Treatments Pt completes supine exercises for functional strengthening. Pt requires support under legs with exercises to support weight. Assessment Current Status: Good Progress Pt AROM is increased with SAQ and hip abduction. PT Short Term Goals Short Term Goals Time Frame: Jul 30, 2017 Transfers (B,C,W/C) (FIM): 3 Gait (FIM): 2 Distance (FIM): 6=846-45 ft Gait Assistive Device: FWW Wheelchair Distance: 40' PT Snf Goals Snf Goals PT Snf Goals Time Frame: Aug 13, 2017 Transfers (B,C,W/C) (FIM): 6 Sit to Lying (QC): 6 Lying-Sitting on Side/Bed(QC): 6 Sit to Stand (QC): 6 Rollin Roll Left to Right (QC): 6 Chair/Vrc-ev-Rlleg Xfer(QC): 6 Car Transfer (QC): 5 Does the Patient Walk: No and Walking Goal IS indicated Gait (FIM): 6 Gait distance (FIM): 3=150 ft Walk 10 feet (QC): 6 Walk 10ft-Uneven Surface(QC): 6 Walk 50ft with 2 Turns (QC): 6 Walk 150 ft (QC): 6 Gait Level of Assist: 6 Gait Assistive Device: FWW Stairs (FIM): 5 # of Steps: 8 1 Step (curb) (QC): 6 4 Steps (QC): 6 12 Steps (QC): 5 Stairs Level Of Assist: 6 Picking up an Object (QC): 5 PT Plan Problem List Problem List: Activity Tolerance, Functional Strength, Safety, Balance, Gait, Transfer, Bed Mobility, ROM Treatment/Plan Treatment Plan: Continue Plan of Care Treatment Plan: Bed Mobility, Education, Functional Activity Carlos A, Functional Strength, Group Therapy, Gait, Safety, Therapeutic Exercise, Transfers Treatment Duration: Aug 13, 2017 Frequency: At least 5-7 days/Wk (IRF) Estimated Hrs Per Day: 1.5 hours per day Patient and/or Family Agrees t: Yes Safety Risks/Education Patient Education: Reviewed Precautions, Correct Positioning, Safety Issues Teaching Recipient: Patient Teaching Methods: Demonstration, Discussion Response to Teaching: Verbalize Understanding, Reinforcement Needed Time/GCodes Time In: 1330 Time Out: 1400 Total Billed Treatment Time: 30 Total Billed Treatment 1 visit EX 30 LILY MATTHEWS PT Jul 23, 2017 15:03
[2017-07-23 18:37] VITALS: BP 110/64
[2017-07-23] MEDS: POLYETHYLENE GLYCOL 17 GM (MIRALAX) PACK PO SCH (21:47)
[2017-07-24 05:30] VITALS: BP 144/76
[2017-07-24] MEDS: PANTOPRAZOLE 20 MG TABLET (PROTONIX) PO SCH (06:11)
[2017-07-24] MEDS: LEVOTHYROXINE 100 MCG (LEVOTHROID) TAB PO SCH (06:11)
[2017-07-24] MEDS: predniSONE 5 MG TAB PO SCH (06:11)
[2017-07-24] MEDS: PROPAFENONE 150 MG (RYTHMOL) TABLET PO SCH ×3 (06:11→21:04)
[2017-07-24] MEDS: LACTOBACILLUS Acidoph/Bulgar (LACTINEX/FLORANEX) TAB PO SCH ×3 (06:12→15:54)
[2017-07-24] MEDS: ALPRAZolam 0.5 MG (XANAX) TAB PO SCH ×3 (09:13→21:04)
[2017-07-24] MEDS: risperiDONE 0.25 MG (RisperDAL) TAB PO SCH (09:13)
[2017-07-24] MEDS: buPROPion SR 150 MG (WELLBUTRIN SR) TAB PO SCH (09:13)
[2017-07-24] MEDS: ASPIRIN E.C. 81 MG (ECOTRIN) TAB PO SCH (09:13)
[2017-07-24] MEDS: LOSARTAN 50 MG (COZAAR) TAB PO SCH (09:14)
[2017-07-24] MEDS: ENOXAPARIN 40 MG/0.4 ML (LOVENOX) SYR SC SCH (09:16)
--- NOTE | 2017-07-24 10:26 | PM & R (SOAP) Progress Note ---
Subjective Time Seen by Provider: 08:15 Subjective/Events-last exam Patient was seen in her room this AM Discussed case with DR Nieves Reynolds to remain in for now until patient more mobile Patient dependent for transfers Appreciate DR Clay and Jorge Luis note and orders Patient decannulated and tolerated well.Lovenox sub cut ordered for dvt prophylaxis Review of Systems Neurological: Weakness Objective Exam Last Set of Vital Signs Vital Signs Date Time Temp Pulse Resp B/P (MAP) Pulse Ox O2 Delivery O2 Flow Rate FiO2 07/24/17 09:59 Room Air 07/24/17 05:30 97.7 84 16 144/76 99 Capillary Refill : I&O Intake and Output 07/25/17 00:00 Intake Total 200 ml Output Total 500 ml Balance -300 ml Intake Oral 200 ml Output Urine Total 500 ml General: Alert, Oriented X3, Cooperative, No Acute Distress HEENT: Atraumatic, PERRLA, EOMI, Mucous Memb Moist/[place] Neck: Supple, No JVD, Other (trach plugged) Lungs: Clear to Auscultation Heart: Regular Rate Abdomen: Normal Bowel Sounds, Soft, No Tenderness, Other (colostomy functioning ) Neuro: Other (2/5/strength both lower extremities Sensation intact Cognition intact ST assessing swallow) Results Lab Laboratory Tests 07/21/17 10:45: Glucometer 184H 07/21/17 13:19: Ionized Calcium (Measured) 1.45H, Ionized Calcium pH 7.32, Ionized Calcium ( Corrected) 1.39H Assessment/Plan Assessment Crtical illness myopathy S/P trach now decannulkated DR Causey S/P Peg tube removal/ S/P colostomy for perforated bowel DR Ng HTN Chronic constipation Elevated LFTS Hypercalcemia Hypomagnesemia Urinary retention -Reynolds reinserted and to remain in for now DVT prophylaxis Heparin switched to Lovenox SUBCUT Plan Continue PT/OT/ST F/U with hospitalist in lieu of pcp and DR Ng re abnormal labs Team Conference held 06-21-17-See report for full functional update and POC [place] consulted re reactive anxiety F/U with DR Causey and TRIP Mcclure MD Jul 24, 2017 10:26
--- NOTE | 2017-07-24 11:13 | Pulmonary Progress Note ---
Subjective Date Seen by Provider: Jul 24, 2017 Time Seen by Provider: 09:10 Subjective/Events-last exam Pt states she is doing well. She denies any cough and denies any sputum production. She denies any f/ns/c. She denies any shortness of breath except when she is getting up and contributes that to holding her breath d/t discomfort. She reports dressing to trach has been changed and no drainage was noted. Review of Systems General: No Chills, No Night Sweats, No Fatigue, No Malaise, No Appetite, No Other HEENT: No Head Aches, No Visual Changes, No Eye Pain, No Ear Pain, No Dysphasia , No Sinus Congestion, No Post Nasal Drip, No Sore Throat, No Other Pulmonary: No Dyspnea, No Cough, No Pleuritic Chest Pain, No Other Cardiovascular: No: Chest Pain, Palpitations, Orthopnea, Paroxysmal Noc. Dyspnea, Edema, Lt Headedness, Other Neurological: Weakness Exam Exam Vital Signs Date Time Temp Pulse Resp B/P (MAP) Pulse Ox O2 Delivery O2 Flow Rate FiO2 07/24/17 09:59 Room Air 07/24/17 05:30 97.7 84 16 144/76 99 Room Air 07/23/17 22:05 92 Room Air 07/23/17 19:50 Room Air 07/23/17 18:37 98.0 88 14 110/64 100 Room Air General Appearance: No Apparent Distress, WD/WN, Cachetic HEENT: PERRL/EOMI Neck: Full Range of Motion, Normal Inspection, Non Tender, Supple, Other ( stoma is dry and intact; midline) Respiratory: Lungs Clear, Normal Breath Sounds, No Accessory Muscle Use, No Respiratory Distress Cardiovascular: Regular Rate, Rhythm, No Edema, No Gallop, No Murmur Peripheral Pulses: 1+ Dorsalis Pedis (R), 1+ Left Dors-Pedis (L) Extremity: No Pedal Edema, Other Neurologic/Psychiatric: Alert, Oriented x3, Normal Mood/Affect, Motor Weakness (lower extremity dorsal flexion and plantar finger flexion about 4+ quads 0) Skin: Normal Color, Warm/Dry Assessment/Plan Assessment/Plan s/p Resp Failure requiring Vent Support - resolved -tracheostomy - removed 07/23/17 -stoma- dressing dry/intact -tolerating RA and not requiring oxygen Clinical Quality Measures DVT/VTE Risk/Contraindication: Risk Factor Score Per Nursin RFS Level Per Nursing on Admit: 3=High RYLIE VARGAS APRN Jul 24, 2017 11:13
--- NOTE | 2017-07-24 11:16 | Physical Therapy Daily Note ---
PT Daily Note-Current Subjective Pt was lying in bed prior to tx and agreeable to PT. Pt was lying in bed with nurse call, phone, tray, all needs in reach after treatment. Will be co- treating with OT for shower, dressing, and grooming. Pain Numeric Pain Scale: 0-No Pain Location: No Pain Reported Mental Status Patient Orientation: Normal For Age Attachments: Colostomy/Ileostomy, Reynolds Catheter Transfers Functional [place] Measure 0=Not Assessed/NA 4=Minimal Assistance 1=Total Assistance 5=Supervision or Setup 2=Maximal Assistance 6=Modified [place] 3=Moderate Assistance 7=Complete IndependenceIRFPAI Quality Coding Scale 6 Independent with activity with or without an assistive device 5 Patient requires set up or clean up by helper. Patient completes activity by themselves 4 Supervision or touching assist (CGA). [place] provide cues , steadying assist 3 The helper provides less than half the effort to complete the activity 2 The helper provides more than half the effort to complete the activity 1 Dependent. The helper does all the effort to complete an activity 7 Patient refused to complete or attempt activity 9 The patient did not perform the activity before the current illness or injury 88 Not attempted due to Medical conditions or safety concerns Transfers (B, C, W/C) (FIM): 1 Scootin Rollin Supine to/from Sit: 2 Sit to/from Stand: 1 Pt requires total assist with sit to stand transfers for safety. Pt requires max assist with bed mobility, pt is verbally cued to use bed rails to assist with rolling. Treatments Pt is instructed in weight shifting and posture for balance and trunk strengthening. Co-treated with OT for shower, dressing, and grooming. OT worked on her ADL's while PT worked on bed mobility, transfers, and trunk strengthening and balance during her ADL's. Assessment Current Status: Good Progress Pt is co-treated with OT. OT completes showering and dressing, PT completes all transfers and helps with shifting weight and posture throughout shower/ dressing. Pt also completes weight shifting seated EOB with min assist and is verbally cued for correct sitting posture. PT Short Term Goals Short Term Goals Time Frame: Jul 30, 2017 Transfers (B,C,W/C) (FIM): 3 Gait (FIM): 2 Distance (FIM): 7=920-63 ft Gait Assistive Device: FWW Wheelchair Distance: 40' PT Jail Goals Jail Goals PT Sales Agent Protective Service Goals Time Frame: Aug 13, 2017 Transfers (B,C,W/C) (FIM): 6 Sit to Lying (QC): 6 Lying-Sitting on Side/Bed(QC): 6 Sit to Stand (QC): 6 Rollin Roll Left to Right (QC): 6 Chair/Cgh-bh-Whznj Xfer(QC): 6 Car Transfer (QC): 5 Does the Patient Walk: No and Walking Goal IS indicated Gait (FIM): 6 Gait distance (FIM): 3=150 ft Walk 10 feet (QC): 6 Walk 10ft-Uneven Surface(QC): 6 Walk 50ft with 2 Turns (QC): 6 Walk 150 ft (QC): 6 Gait Level of Assist: 6 Gait Assistive Device: FWW Stairs (FIM): 5 # of Steps: 8 1 Step (curb) (QC): 6 4 Steps (QC): 6 12 Steps (QC): 5 Stairs Level Of Assist: 6 Picking up an Object (QC): 5 PT Plan Problem List Problem List: Activity Tolerance, Functional Strength, Safety, Balance, Gait, Transfer, Bed Mobility, ROM Treatment/Plan Treatment Plan: Continue Plan of Care Treatment Plan: Bed Mobility, Education, Functional Activity Carlos A, Functional Strength, Group Therapy, Gait, Safety, Therapeutic Exercise, Transfers Treatment Duration: Aug 13, 2017 Frequency: At least 5 to 7 days/Wk (IRF) Estimated Hrs Per Day: 1.5 hours per day Patient and/or Family Agrees t: Yes Safety Risks/Education Patient Education: Transfer Techniques, Reviewed Precautions, Correct Positioning, W/C Management, Safety Issues Teaching Recipient: Patient Teaching Methods: Demonstration, Discussion Response to Teaching: Verbalize Understanding, Return Demonstration Time/GCodes Time In: 800 Time Out: 900 Total Billed Treatment Time: 60 Total Billed Treatment 1 visit 60 FA Co-treat with OT, OT completes showering and dressing, PT completes all transfers and helps with shifting weight and posture throughout. Co-treated with OT for the whole 60 min. STEPHANE KC PT Jul 24, 2017 11:16
--- NOTE | 2017-07-24 12:03 | Occupational Ther Daily Note ---
OT Current Status-Daily Note Subjective Pt alert, sitting in bed. Agrees to therapy, wants to shower. Just received pain pill for hip, feeling good. Mental Status/Objective Patient Orientation: Person, Place, Time, Situation Functional [place] Measure 0=Not Assessed/NA 4=Minimal Assistance 1=Total Assistance 5=Supervision or Setup 2=Maximal Assistance 6=Modified [place] 3=Moderate Assistance 7=Complete [place] Attachments: Colostomy/Ileostomy, Reynolds Catheter ADL-Treatment Co treatment with PT due to pt's low fatigue level and weakness requiring skill treatment. PT worked on transfers, body mechanics, and core strength. OT worked on ADL's including bathing, dressing, and grooming, and arm strength. Functional [place] Measure 0=Not Assessed/NA 4=Minimal Assistance 1=Total Assistance 5=Supervision or Setup 2=Maximal Assistance 6=Modified [place] 3=Moderate Assistance 7=Complete IndependenceIRFPAI Quality Coding Scale 6 Independent with activity with or without an assistive device 5 Patient requires set up or clean up by helper. Patient completes activity by themselves 4 Supervision or touching assist (CGA). [place] provide cues , steadying assist 3 The helper provides less than half the effort to complete the activity 2 The helper provides more than half the effort to complete the activity 1 Dependent. The helper does all the effort to complete an activity 7 Patient refused to complete or attempt activity 9 The patient did not perform the activity before the current illness or injury 88 Not attempted due to Medical conditions or safety concerns Grooming (FIM): 3 (Pt able to apply paste to toothbrush and brush teeth slightly leaning head forward. Reqires min A to sustain forward leaning position to spit. Dependent on hair combing due to low ROM and strength. Pt washed face by self in shower. ) Bathing (FIM): 3 (Pt completes shower in rolling shower chair using handheld shower. After set up, able to wash arms up to shoulders, upper legs, chest, abdomen, and perineal area. Assistance needed with all other areas. ) Bathing Location: L Arm, R Arm, L Upper Leg, R Upper Leg, Chest, Abdomen, Perineal Area Upper Body (FIM): 3 (Pt able to manipulate shirt to find arm holes and pull up to below shoulders. 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 ) Lower Body Dressing (FIM): 1 (Pt dependent for lower body dressing. ) Transfers (B, C, W/C) (FIM): 2 (Pt requires max A for stand pivot transfer. ) Shower Transfer(FIM): 2 (Requires max A for stand pivot transfer into rolling shower chair, rolled into shower where bathing was completed. ) Other Treatment Pt sat on EOB with hands to side. Leaned side to side to increase core strength while wrist and elbow joints blocked to allow weight bearing. Pt leaned forward and backward to increase balance and core strength. After therapy, pt sitting up in bed with call light and phone in reach. All needs met in room. OT Short Term Goals Short Term Goals Time Frame: Jul 30, 2017 Eating(FIM): 4 Grooming(FIM): 4 Bathing(FIM): 3 Upper Body Dressing(FIM): 3 Lower Body Dressing(FIM): 3 Toileting(FIM): 3 Transfers (B,C,W/C) (FIM): 3 Toilet/Commode Transfer(FIM): 3 Shower Transfer(FIM): 3 Additional Short Term Goals: 1-Demonstrate ADL Tasks, 2-Verbalize Understanding , 3-ImproveStrength/Carlos A 1=Demonstrate adherence to instructed precautions during ADL tasks. 2=Patient will verbalize/demonstrate understanding of assistive devices/ modifications for ADL. 3=Patient will improve strength/tolerance for activity to enable patient to perform ADL's. OT Weapons Mechanic Goals Weapons Mechanic Goals Time Frame: Aug 13, 2017 Eating (FIM): 5 Eating (QC): 5 Groomin Oral Hygiene (QC): 5 Bathing(FIM): 5 Shower/Bathe Self (QC): 4 Upper Body Dressing(FIM): 5 Upper Body Dressing (QC): 4 Lower Body Dressing(FIM): 5 Lower Body Dressing (QC): 4 On/Off Footwear (QC): 4 Toileting(FIM): 5 Toileting Hygiene (QC): 4 Transfers (B,C,W/C) (FIM): 5 Toilet/Commode Transfer(FIM): 5 Toilet/Commode Transfer (QC): 4 Tub Transfer(FIM): 5 Shower Transfer(FIM): 4 Additional Goals: 1-Demonstrate ADL Tasks, 2-Verbalize Understanding, 3- ImproveStrength/Carlos A 1=Demonstrate adherence to instructed precautions during ADL tasks. 2=Patient will verbalize/demonstrate understanding of assistive devices/ modifications for ADL. 3=Patient will improve strength/tolerance for activity to enable patient to perform ADL's. OT Education/Plan Discharge Recommendations Plan/Recommendations: Continue POC Treatment Plan/Plan of Care Patient would benefit from OT for education, treatment and training to promote independence in ADL's, mobility, safety and/or upper extremity function for ADL' s. Plan of Care: ADL Retraining, Caregiver Training, Functional Mobility, Group Exercise/Act as Ind, UE Funct Exercise/Act Treatment Duration: Aug 13, 2017 Frequency: At least 5 to 7 days/Wk (IRF) Estimated Hrs Per Day: 1.5 hours per day Agreement: Yes Rehab Potential: Good Time/GCodes Start Time: 08:00 Stop Time: 09:00 Total Time Billed (hr/min): 60 Billed Treatment Time 1 visit, ADL 3 (45 minutes) FA 1 (15 minutes) Co treatment time: 60 minutes LILY INMAN Jul 24, 2017 12:03
--- NOTE | 2017-07-24 12:53 | CONSULTATION REPORT ---
DATE OF SERVICE: 07/24/2017 ATTENDING PHYSICIAN: Dr. Henriquez SUMMARY: A 61-year-old white lady recovering from an extensive abdominal surgery who was postoperative course, recovering slowly and still not very well ambulating. She has been having a catheter since the surgery and attempts to try to void were unsuccessful. The patient is still very weak and does not ambulate well. She has to be carried to the bathroom and wishes to keep the catheter until she feels stronger, which is very well acceptable. IMPRESSION: Urinary retention. RECOMMENDATIONS: Once the patient is ambulating well and strong enough to stand on her own and go to the bathroom, we will start trial voidings at that time. I checked with Dr. Henriquez any contraindication for possible use of urecholine in the future, and he said no. Job ID: [id number] DocumentID: [id number] Dictated Date: 07/24/2017 11:56:18 Outpatient Physical Therapist Assistant Date: 07/24/2017 12:52:25 Dictated By: JOSE WALTON MD
--- NOTE | 2017-07-24 14:23 | Occupational Ther Daily Note ---
OT Current Status-Daily Note Subjective Pt alert, sitting in bed. Agrees to therapy. No c/o pain. Mental Status/Objective Patient Orientation: Person, Place, Time, Situation Functional [place] Measure 0=Not Assessed/NA 4=Minimal Assistance 1=Total Assistance 5=Supervision or Setup 2=Maximal Assistance 6=Modified [place] 3=Moderate Assistance 7=Complete [place] Attachments: Colostomy/Ileostomy, Reynolds Catheter ADL-Treatment Functional [place] Measure 0=Not Assessed/NA 4=Minimal Assistance 1=Total Assistance 5=Supervision or Setup 2=Maximal Assistance 6=Modified [place] 3=Moderate Assistance 7=Complete IndependenceIRFPAI Quality Coding Scale 6 Independent with activity with or without an assistive device 5 Patient requires set up or clean up by helper. Patient completes activity by themselves 4 Supervision or touching assist (CGA). [place] provide cues , steadying assist 3 The helper provides less than half the effort to complete the activity 2 The helper provides more than half the effort to complete the activity 1 Dependent. The helper does all the effort to complete an activity 7 Patient refused to complete or attempt activity 9 The patient did not perform the activity before the current illness or injury 88 Not attempted due to Medical conditions or safety concerns Other Treatment Pt transferred from EOB to w/c with max A. Wheeled pt to [facility] area where functional activity was completed. Pt worked on B gross grasp skills by grasping large end of cones, 6x 5 seconds. Pt moved cones from one side of table to other, working on grasp skills, AROM, strength, and coordination in UE. Pt completed activity once with each arm, stabilization of L UE during task. Pt felt fatigued after. Pt was wheeled back inside to therapy gym, completed stretches to increase wrist ext ROM and scapular elevation/ depression. Tolerated well. Pt left in care of PT. All needs met. OT Short Term Goals Short Term Goals Time Frame: Jul 30, 2017 Eating(FIM): 4 Grooming(FIM): 4 Bathing(FIM): 3 Upper Body Dressing(FIM): 3 Lower Body Dressing(FIM): 3 Toileting(FIM): 3 Transfers (B,C,W/C) (FIM): 3 Toilet/Commode Transfer(FIM): 3 Shower Transfer(FIM): 3 Additional Short Term Goals: 1-Demonstrate ADL Tasks, 2-Verbalize Understanding , 3-ImproveStrength/Carlos A 1=Demonstrate adherence to instructed precautions during ADL tasks. 2=Patient will verbalize/demonstrate understanding of assistive devices/ modifications for ADL. 3=Patient will improve strength/tolerance for activity to enable patient to perform ADL's. OT Mcfp Goals Mcfp Goals Time Frame: Aug 13, 2017 Eating (FIM): 5 Eating (QC): 5 Groomin Oral Hygiene (QC): 5 Bathing(FIM): 5 Shower/Bathe Self (QC): 4 Upper Body Dressing(FIM): 5 Upper Body Dressing (QC): 4 Lower Body Dressing(FIM): 5 Lower Body Dressing (QC): 4 On/Off Footwear (QC): 4 Toileting(FIM): 5 Toileting Hygiene (QC): 4 Transfers (B,C,W/C) (FIM): 5 Toilet/Commode Transfer(FIM): 5 Toilet/Commode Transfer (QC): 4 Tub Transfer(FIM): 5 Shower Transfer(FIM): 4 Additional Goals: 1-Demonstrate ADL Tasks, 2-Verbalize Understanding, 3- ImproveStrength/Carlos A 1=Demonstrate adherence to instructed precautions during ADL tasks. 2=Patient will verbalize/demonstrate understanding of assistive devices/ modifications for ADL. 3=Patient will improve strength/tolerance for activity to enable patient to perform ADL's. OT Education/Plan Discharge Recommendations Plan/Recommendations: Continue POC Treatment Plan/Plan of Care Patient would benefit from OT for education, treatment and training to promote independence in ADL's, mobility, safety and/or upper extremity function for ADL' s. Plan of Care: ADL Retraining, Caregiver Training, Functional Mobility, Group Exercise/Act as Ind, UE Funct Exercise/Act Treatment Duration: Aug 13, 2017 Frequency: At least 5 to 7 days/Wk (IRF) Estimated Hrs Per Day: 1.5 hours per day Agreement: Yes Rehab Potential: Good Time/GCodes Start Time: 13:00 Stop Time: 13:30 Total Time Billed (hr/min): 30 Billed Treatment Time 1 visit, EX 2 (30 minutes) LILY INMAN Jul 24, 2017 14:22
--- NOTE | 2017-07-24 15:09 | Physical Therapy Daily Note ---
PT Daily Note-Current Subjective Pt is sitting in [facility] in gym prior to PT and agreeable to tx. Pt is lying in bed with nurse call, phone, tray, all needs in reach post tx. Pain Numeric Pain Scale: 0-No Pain Location: No Pain Reported Mental Status Patient Orientation: Normal For Age Attachments: Colostomy/Ileostomy, Reynolds Catheter Transfers Functional [place] Measure 0=Not Assessed/NA 4=Minimal Assistance 1=Total Assistance 5=Supervision or Setup 2=Maximal Assistance 6=Modified [place] 3=Moderate Assistance 7=Complete IndependenceIRFPAI Quality Coding Scale 6 Independent with activity with or without an assistive device 5 Patient requires set up or clean up by helper. Patient completes activity by themselves 4 Supervision or touching assist (CGA). [place] provide cues , steadying assist 3 The helper provides less than half the effort to complete the activity 2 The helper provides more than half the effort to complete the activity 1 Dependent. The helper does all the effort to complete an activity 7 Patient refused to complete or attempt activity 9 The patient did not perform the activity before the current illness or injury 88 Not attempted due to Medical conditions or safety concerns Transfers (B, C, W/C) (FIM): 1 Scootin Supine to/from Sit: 1 Sit to/from Stand: 1 Pt is total assist with all bed mobility and sit to stand transfer, requires verbal cues for safety. Gait Training Does the Patient Walk?: No and Walking Goal IS indicated Exercises Seated Therapy Exercises: Long arc quads, Glut set Seated Reps: 20 Standing: Sit to Stand Standing Reps: 4 Treatments Pt completes sit to internal auditor parallel bars with max assist. Pt stands for a few seconds before she fatigues and needs to sit. Pt is verbally cued to help support self with arms and legs and with posture. Pt completes seated exercises for functional LE strengthening. Assessment Current Status: Fair Progress Pt requires a lot of encouragement to help with standing from the wheelchair and is verbally cued to help support self with arms and legs and with standing posture. Pt became tearful throughout tx, was unable to verbalize reasoning. PT Short Term Goals Short Term Goals Time Frame: Jul 30, 2017 Transfers (B,C,W/C) (FIM): 3 Gait (FIM): 2 Distance (FIM): 5=501-65 ft Gait Assistive Device: FWW Wheelchair Distance: 40' PT Epic Director Goals Epic Director Goals PT Epic Director Goals Time Frame: Aug 13, 2017 Transfers (B,C,W/C) (FIM): 6 Sit to Lying (QC): 6 Lying-Sitting on Side/Bed(QC): 6 Sit to Stand (QC): 6 Rollin Roll Left to Right (QC): 6 Chair/Ouk-xb-Pjxgr Xfer(QC): 6 Car Transfer (QC): 5 Does the Patient Walk: No and Walking Goal IS indicated Gait (FIM): 6 Gait distance (FIM): 3=150 ft Walk 10 feet (QC): 6 Walk 10ft-Uneven Surface(QC): 6 Walk 50ft with 2 Turns (QC): 6 Walk 150 ft (QC): 6 Gait Level of Assist: 6 Gait Assistive Device: FWW Stairs (FIM): 5 # of Steps: 8 1 Step (curb) (QC): 6 4 Steps (QC): 6 12 Steps (QC): 5 Stairs Level Of Assist: 6 Picking up an Object (QC): 5 PT Plan Problem List Problem List: Activity Tolerance, Functional Strength, Safety, Balance, Gait, Transfer, Bed Mobility, ROM Treatment/Plan Treatment Plan: Continue Plan of Care Treatment Plan: Bed Mobility, Education, Functional Activity Carlos A, Functional Strength, Group Therapy, Gait, Safety, Therapeutic Exercise, Transfers Treatment Duration: Aug 13, 2017 Frequency: At least 5 to 7 days/Wk (IRF) Estimated Hrs Per Day: 1.5 hours per day Patient and/or Family Agrees t: Yes Safety Risks/Education Patient Education: Transfer Techniques, Reviewed Precautions, Correct Positioning, W/C Management, Safety Issues Teaching Recipient: Patient Teaching Methods: Demonstration, Discussion Response to Teaching: Verbalize Understanding, Reinforcement Needed Time/GCodes Time In: 1340 Time Out: 1410 Total Billed Treatment Time: 30 Total Billed Treatment 1 visit FA 20 EX 10 STEPHANE KC PT Jul 24, 2017 15:09
--- NOTE | 2017-07-24 15:12 | Behavioral Health Consult ---
[facility] Time Seen by Provider: 14:00 Patient: Madeline Hay : 1955 Date: 07/24/2017 Referral: Dr. Henriquez CPT Code: 02961 Psychodiagnostic Examination, 1 unit(s) Start Time: 1400 Stop Time: 1440 Chief Complaint: Depression Referral: Madeline Hay is a 61 year old female referred by Dr. Henriquez for a clinical diagnostic assessment. Information sources for this evaluation include self-report/observation and medical records. Presenting Problem: The presenting clinical problem is Depression. Duration of the current problem was reported as since her medical issues three months ago. The primary clinical theme and problem discussed during the appointment was that Madeline has had a medical trauma that has completely changed her daily life functioning. She was able to share that her bowel perforated on April 25 and she has been hospitalized since that time. She is recovering and can identify the improvements and progress she has made. Madeline states that she has always taken care of things and not being able to do this has really gone against her personality. Madeline shared that her is on disability for diabetes and has lost all his toes. She worries about him being alright since she has been gone. Vinod family has been very supportive and will continue to help her get back to her previous level of functioning. She has been informed that her employer has someone filling her position temporarily and has every intention for her to return to her job when she is ready. While talking about these positive things, Madeline was able to recognize that she is getting better and regaining hope in her condition. She states that she gets down and tearful when she is having a bad day and her progress is not as quick as she would like. She was given reassurance that her emotional state would expect to be affected by such a traumatic medical situation. She has been started on Celexa and was given some feedback that it will take a few weeks to be at a therapeutic level. Madeline does not have any prior history of depression or other mental health disorder. Her current state of depression appears to be a situational reaction to her circumstances. If she continues to struggle while regaining her previous lifestyle upon returning home she will seek out outpatient counseling services. Symptoms observed or reported requiring current level of care include anxiety, depressed mood, frequent tearfulness, hopelessness, medical problems, and worry. Observations/Mental Status: Madeline was evaluated in her room on the rehabilitation unit at [facility]. The patient was a good historian. Vinod general approach to the evaluation indicated interest. Orientation was intact for person, place, time, and situation. Madeline evidenced good understanding of the reason for the appointment. Vinod approach to the session was depressed and tearful. The predominant mood was that of depressed with affect appropriate to expressed concerns and presenting problem. Immediate attention and concentration was unremarkable clinically during the interview. Level of intellectual functioning compared to same age peers was average range. Thought processes were found to be generally logical, coherent and goal directed. Thought content appeared normal. Psychomotor functioning was within normal limits. Tone of voice was soft and manner of speech was normal. Expressive speech was marked by fluent speech and language. Current destructive behavior patterns: none reported or indicated. Disturbance in sleep patterns: not assessed. Eye contact was good. Insight was average. Madeline s style of interacting during the appointment was appropriate and motivated. Current/Previous Mental Health Treatment: Past psychiatric history: None. History of self or other harm: denied. History of abuse: denied. Current psychotropic medications include Celexa 20mg, Wellbutrin SR 300mg, Risperdal 0.25mg and Xanax 0.5mg TID. Family and Social Histories: Madeline currently lives with her . Madeline has been to her for 42 years. They have two children and 5 grandchildren. Vinod daughter is a nurse and lives near them. Her oldest granddaughter is starting nursing school. Madeline states that she has always been very active. Prior to her husbands disability he was a beckman and she maintained all the household duties and care of the family. She has always taken care of everyone and is not used to having others care for her. Summary of Assessment Information/Prognosis: Vinod presenting problem and symptoms appear consistent with a preliminary diagnosis of F43.21 Adjustment Disorder with Depressed Mood at this point. Current emotional symptoms are of moderate intensity. Prognosis is good. Diagnostic Impressions: ICD-10: F43.21 Adjustment Disorder with Depressed Mood Initial Treatment Plan/Recommendations: The recommendations at this time include the following: Continue with medication management with Celexa, individual outpatient psychotherapy as needed to continue to adjust to medical issues and regaining of previous functioning. Madeline verbalized understanding of these recommendations and an intention to comply. OLINDA LARA Jul 24, 2017 15:12
[2017-07-24 17:45] VITALS: BP 100/62
[2017-07-24] MEDS: POLYETHYLENE GLYCOL 17 GM (MIRALAX) PACK PO SCH (21:04)
[2017-07-25 05:00] VITALS: BP 113/63
[2017-07-25] MEDS: PANTOPRAZOLE 20 MG TABLET (PROTONIX) PO SCH (06:03)
[2017-07-25] MEDS: LEVOTHYROXINE 100 MCG (LEVOTHROID) TAB PO SCH (06:03)
[2017-07-25] MEDS: predniSONE 5 MG TAB PO SCH (06:03)
[2017-07-25] MEDS: LACTOBACILLUS Acidoph/Bulgar (LACTINEX/FLORANEX) TAB PO SCH ×4 (06:03→22:15)
[2017-07-25] MEDS: PROPAFENONE 150 MG (RYTHMOL) TABLET PO SCH ×3 (06:03→21:04)
[2017-07-25] MEDS: buPROPion SR 150 MG (WELLBUTRIN SR) TAB PO SCH (09:25)
[2017-07-25] MEDS: ALPRAZolam 0.5 MG (XANAX) TAB PO SCH ×3 (09:25→21:04)
[2017-07-25] MEDS: ENOXAPARIN 40 MG/0.4 ML (LOVENOX) SYR SC SCH (09:25)
[2017-07-25] MEDS: LOSARTAN 50 MG (COZAAR) TAB PO SCH (09:26)
[2017-07-25] MEDS: ASPIRIN E.C. 81 MG (ECOTRIN) TAB PO SCH (09:26)
[2017-07-25] MEDS: risperiDONE 0.25 MG (RisperDAL) TAB PO SCH (09:26)
--- NOTE | 2017-07-25 14:49 | Physical Therapy Daily Note ---
PT Daily Note-Current Subjective Pt requests to get dressed prior to treatment. Transfers Functional [place] Measure 0=Not Assessed/NA 4=Minimal Assistance 1=Total Assistance 5=Supervision or Setup 2=Maximal Assistance 6=Modified [place] 3=Moderate Assistance 7=Complete IndependenceIRFPAI Quality Coding Scale 6 Independent with activity with or without an assistive device 5 Patient requires set up or clean up by helper. Patient completes activity by themselves 4 Supervision or touching assist (CGA). [place] provide cues , steadying assist 3 The helper provides less than half the effort to complete the activity 2 The helper provides more than half the effort to complete the activity 1 Dependent. The helper does all the effort to complete an activity 7 Patient refused to complete or attempt activity 9 The patient did not perform the activity before the current illness or injury 88 Not attempted due to Medical conditions or safety concerns Transfers (B, C, W/C) (FIM): 2 all transfers were stand pivot with maximal assist. Pt was able to provide some assist through the LEs Exercises Supine Ex: Ankle pumps, Quad Set, Lower trunk rotation, Heel Slides, Knee to chest, Short Arc Quads, Straight leg raise, Hip abd/add Supine Reps: 10 Seated Therapy Exercises: Reaching activity Standing: Sit to Stand supine exercises for PROM then followed with manual resistance for hip extension , abduction, hooklying abduction. From a seated position on solid surface worked on core strength through alternate isometrics, lateral trunk leans, partial sit ups, reaching, and rotations. Worked on active and passive cervical ROM. Worked on sit to stand x 4 trials with 30 second hold each trial focusing on hip and knee extension. PT Short Term Goals Short Term Goals Time Frame: Jul 30, 2017 Transfers (B,C,W/C) (FIM): 3 Gait (FIM): 2 Distance (FIM): 1=212-44 ft Gait Assistive Device: FWW Wheelchair Distance: 40' PT Snf Goals Snf Goals PT Snf Goals Time Frame: Aug 13, 2017 Transfers (B,C,W/C) (FIM): 6 Sit to Lying (QC): 6 Lying-Sitting on Side/Bed(QC): 6 Sit to Stand (QC): 6 Rollin Roll Left to Right (QC): 6 Chair/Zgb-hd-Igaex Xfer(QC): 6 Car Transfer (QC): 5 Does the Patient Walk: No and Walking Goal IS indicated Gait (FIM): 6 Gait distance (FIM): 3=150 ft Walk 10 feet (QC): 6 Walk 10ft-Uneven Surface(QC): 6 Walk 50ft with 2 Turns (QC): 6 Walk 150 ft (QC): 6 Gait Level of Assist: 6 Gait Assistive Device: FWW Stairs (FIM): 5 # of Steps: 8 1 Step (curb) (QC): 6 4 Steps (QC): 6 12 Steps (QC): 5 Stairs Level Of Assist: 6 Picking up an Object (QC): 5 PT Plan Treatment/Plan Treatment Plan: Continue Plan of Care Treatment Plan: Bed Mobility, Education, Functional Activity Carlos A, Functional Strength, Group Therapy, Gait, Safety, Therapeutic Exercise, Transfers Treatment Duration: Aug 13, 2017 Frequency: At least 5 to 7 days/Wk (IRF) Estimated Hrs Per Day: 1.5 hours per day Patient and/or Family Agrees t: Yes Time/GCodes Time In: 0930 Time Out: 1030 Total Billed Treatment Time: 60 Total Billed Treatment visit, exercise 35min, FA 25 min ALBA BELTRAN PT Jul 25, 2017 14:49
[2017-07-25 18:00] VITALS: BP 125/71
[2017-07-25] MEDS: POLYETHYLENE GLYCOL 17 GM (MIRALAX) PACK PO SCH (19:23)
[2017-07-26 05:01] VITALS: BP 155/67
[2017-07-26] MEDS: PROPAFENONE 150 MG (RYTHMOL) TABLET PO SCH ×3 (06:33→21:05)
[2017-07-26] MEDS: predniSONE 5 MG TAB PO SCH (06:33)
[2017-07-26] MEDS: LEVOTHYROXINE 100 MCG (LEVOTHROID) TAB PO SCH (06:33)
[2017-07-26] MEDS: PANTOPRAZOLE 20 MG TABLET (PROTONIX) PO SCH (06:33)
[2017-07-26] MEDS: buPROPion SR 150 MG (WELLBUTRIN SR) TAB PO SCH (09:39)
[2017-07-26] MEDS: ASPIRIN E.C. 81 MG (ECOTRIN) TAB PO SCH (09:39)
[2017-07-26] MEDS: ALPRAZolam 0.5 MG (XANAX) TAB PO SCH ×3 (09:39→21:04)
[2017-07-26] MEDS: LOSARTAN 50 MG (COZAAR) TAB PO SCH (09:39)
[2017-07-26] MEDS: ENOXAPARIN 40 MG/0.4 ML (LOVENOX) SYR SC SCH (09:39)
[2017-07-26] MEDS: risperiDONE 0.25 MG (RisperDAL) TAB PO SCH (09:39)
[2017-07-26] MEDS: LACTOBACILLUS Acidoph/Bulgar (LACTINEX/FLORANEX) TAB PO SCH ×3 (11:34→19:39)
[2017-07-26 18:14] VITALS: BP 110/63
[2017-07-26] MEDS: POLYETHYLENE GLYCOL 17 GM (MIRALAX) PACK PO SCH (18:22)
[2017-07-27 05:02] VITALS: BP 127/65
[2017-07-27] MEDS: PROPAFENONE 150 MG (RYTHMOL) TABLET PO SCH ×3 (06:27→21:31)
[2017-07-27] MEDS: LEVOTHYROXINE 100 MCG (LEVOTHROID) TAB PO SCH (06:27)
[2017-07-27] MEDS: predniSONE 5 MG TAB PO SCH (06:27)
[2017-07-27] MEDS: PANTOPRAZOLE 20 MG TABLET (PROTONIX) PO SCH (06:27)
[2017-07-27] MEDS: LACTULOSE SYRUP 10GM/15ML (ENULOSE) 30ML UDC PO SCH ×2 (07:25→21:30)
[2017-07-27] MEDS: SENNA W/DOCUSATE (SENOKOT S) TABLET PO SCH ×2 (07:25→21:31)
[2017-07-27] MEDS: risperiDONE 0.25 MG (RisperDAL) TAB PO SCH (07:26)
[2017-07-27] MEDS: ASPIRIN E.C. 81 MG (ECOTRIN) TAB PO SCH (07:26)
[2017-07-27] MEDS: LOSARTAN 50 MG (COZAAR) TAB PO SCH (07:26)
[2017-07-27] MEDS: buPROPion SR 150 MG (WELLBUTRIN SR) TAB PO SCH (07:26)
[2017-07-27] MEDS: ALPRAZolam 0.5 MG (XANAX) TAB PO SCH ×3 (07:27→21:31)
[2017-07-27] MEDS: LACTOBACILLUS Acidoph/Bulgar (LACTINEX/FLORANEX) TAB PO SCH ×2 (07:27→13:54)
--- NOTE | 2017-07-27 08:59 | Occupational Ther Daily Note ---
OT Current Status-Daily Note Subjective Pt alert, sitting in bed. No c/o pain. Agrees to therapy, wants to take shower. Mental Status/Objective Patient Orientation: Person, Place, Time, Situation Functional [place] Measure 0=Not Assessed/NA 4=Minimal Assistance 1=Total Assistance 5=Supervision or Setup 2=Maximal Assistance 6=Modified [place] 3=Moderate Assistance 7=Complete [place] Attachments: Colostomy/Ileostomy, Reynolds Catheter ADL-Treatment Co treatment with PT. Due to pt's weakness and low fatigue level, skilled treatment needed. PT worked on transfers and body mechanics. OT worked on ADL's such as bathing, grooming, and dressing. After therapy, pt sitting in bed with call light and phone within reach. All needs met in room. Functional [place] Measure 0=Not Assessed/NA 4=Minimal Assistance 1=Total Assistance 5=Supervision or Setup 2=Maximal Assistance 6=Modified [place] 3=Moderate Assistance 7=Complete IndependenceIRFPAI Quality Coding Scale 6 Independent with activity with or without an assistive device 5 Patient requires set up or clean up by helper. Patient completes activity by themselves 4 Supervision or touching assist (CGA). [place] provide cues , steadying assist 3 The helper provides less than half the effort to complete the activity 2 The helper provides more than half the effort to complete the activity 1 Dependent. The helper does all the effort to complete an activity 7 Patient refused to complete or attempt activity 9 The patient did not perform the activity before the current illness or injury 88 Not attempted due to Medical conditions or safety concerns Grooming (FIM): 4 (After set up, pt able to complete grooming while seated. Able to wash face by self. Can comb front of hair, needing assistance with back. Pt able to put paste on toothbrush, control water, and brush teeth with CGA to sustain forward leaning position. Pt progressed to leaning forward to sink by self. ) Bathing (FIM): 3 (Pt requires assistance washing/drying B lower legs, feet, back, and buttocks. Using rolling shower chair and handheld shower. ) Bathing Location: L Arm, R Arm, L Upper Leg, R Upper Leg, Chest, Abdomen, Perineal Area Upper Body (FIM): 3 (Pt able to manipulate clothing to put arms in sleeves and pull up to below shoulders needing assistance to warehouse order puller shoulders and head and down body. ) Lower Body Dressing (FIM): 2 (Assistance needed to thread feet through pant hole. Max A to stand while other pull pants over hips. Dependent to don and doff socks and shoes. ) Transfers (B, C, W/C) (FIM): 2 (Pt requires max A for stand pivot transfer. ) Shower Transfer(FIM): 2 (Max A for stand pivot transfer into rolling shower chair, rolled into shower where bathing completed. ) OT Short Term Goals Short Term Goals Time Frame: Jul 30, 2017 Eating(FIM): 4 Grooming(FIM): 4 Bathing(FIM): 3 Upper Body Dressing(FIM): 3 Lower Body Dressing(FIM): 3 Toileting(FIM): 3 Transfers (B,C,W/C) (FIM): 3 Toilet/Commode Transfer(FIM): 3 Shower Transfer(FIM): 3 Additional Short Term Goals: 1-Demonstrate ADL Tasks, 2-Verbalize Understanding , 3-ImproveStrength/Carlos A 1=Demonstrate adherence to instructed precautions during ADL tasks. 2=Patient will verbalize/demonstrate understanding of assistive devices/ modifications for ADL. 3=Patient will improve strength/tolerance for activity to enable patient to perform ADL's. OT Group Home Goals Wholesale Manager Goals Time Frame: Aug 13, 2017 Eating (FIM): 5 Eating (QC): 5 Groomin Oral Hygiene (QC): 5 Bathing(FIM): 5 Shower/Bathe Self (QC): 4 Upper Body Dressing(FIM): 5 Upper Body Dressing (QC): 4 Lower Body Dressing(FIM): 5 Lower Body Dressing (QC): 4 On/Off Footwear (QC): 4 Toileting(FIM): 5 Toileting Hygiene (QC): 4 Transfers (B,C,W/C) (FIM): 5 Toilet/Commode Transfer(FIM): 5 Toilet/Commode Transfer (QC): 4 Tub Transfer(FIM): 5 Shower Transfer(FIM): 4 Additional Goals: 1-Demonstrate ADL Tasks, 2-Verbalize Understanding, 3- ImproveStrength/Carlos A 1=Demonstrate adherence to instructed precautions during ADL tasks. 2=Patient will verbalize/demonstrate understanding of assistive devices/ modifications for ADL. 3=Patient will improve strength/tolerance for activity to enable patient to perform ADL's. OT Education/Plan Discharge Recommendations Plan/Recommendations: Continue POC Treatment Plan/Plan of Care Patient would benefit from OT for education, treatment and training to promote independence in ADL's, mobility, safety and/or upper extremity function for ADL' s. Plan of Care: ADL Retraining, Caregiver Training, Functional Mobility, Group Exercise/Act as Ind, UE Funct Exercise/Act Treatment Duration: Aug 13, 2017 Frequency: At least 5 to 7 days/Wk (IRF) Estimated Hrs Per Day: 1.5 hours per day Agreement: Yes Rehab Potential: Good Time/GCodes Start Time: 08:00 Stop Time: 09:00 Total Time Billed (hr/min): 60 Billed Treatment Time 1 visit, ADL 4 (60 minutes) Co Treatment time: 60 minutes LILY INMAN Jul 27, 2017 08:59
--- NOTE | 2017-07-27 09:00 | Physical Therapy Daily Note ---
PT Daily Note-Current Subjective Pt was lying in bed prior to tx and agreeable to PT. Pt is to be co-treated with OT. Pt was lying in bed with nurse call, phone, tray, all needs in reach after treatment. Pain Numeric Pain Scale: 0-No Pain Location: No Pain Reported Mental Status Patient Orientation: Normal For Age Attachments: Colostomy/Ileostomy, Reynolds Catheter Transfers Functional [place] Measure 0=Not Assessed/NA 4=Minimal Assistance 1=Total Assistance 5=Supervision or Setup 2=Maximal Assistance 6=Modified [place] 3=Moderate Assistance 7=Complete IndependenceIRFPAI Quality Coding Scale 6 Independent with activity with or without an assistive device 5 Patient requires set up or clean up by helper. Patient completes activity by themselves 4 Supervision or touching assist (CGA). [place] provide cues , steadying assist 3 The helper provides less than half the effort to complete the activity 2 The helper provides more than half the effort to complete the activity 1 Dependent. The helper does all the effort to complete an activity 7 Patient refused to complete or attempt activity 9 The patient did not perform the activity before the current illness or injury 88 Not attempted due to Medical conditions or safety concerns Transfers (B, C, W/C) (FIM): 1 Scootin Supine to/from Sit: 1 Sit to/from Stand: 1 Pt requires total assist for all transfers and bed mobility. Pt is verbally cued for safety. Gait Training Does the Patient Walk?: No and Walking Goal IS indicated Treatments Pt is co-treated with OT. OT completes showering, dressing and grooming and PT completes all transfers. PT also completes weight shifts, trunk balance and control, and posturing throughout tx. Assessment Current Status: Poor Progress Pt has no change in mobility. Pt is cued to assist with mobility, and does not make an effort to help with transfers and mobility. PT Short Term Goals Short Term Goals Time Frame: Jul 30, 2017 Transfers (B,C,W/C) (FIM): 3 Gait (FIM): 2 Distance (FIM): 9=477-79 ft Gait Assistive Device: FWW Wheelchair Distance: 40' PT Penitentiary Goals Penitentiary Goals PT Penitentiary Goals Time Frame: Aug 13, 2017 Transfers (B,C,W/C) (FIM): 6 Sit to Lying (QC): 6 Lying-Sitting on Side/Bed(QC): 6 Sit to Stand (QC): 6 Rollin Roll Left to Right (QC): 6 Chair/Nix-qk-Vidwj Xfer(QC): 6 Car Transfer (QC): 5 Does the Patient Walk: No and Walking Goal IS indicated Gait (FIM): 6 Gait distance (FIM): 3=150 ft Walk 10 feet (QC): 6 Walk 10ft-Uneven Surface(QC): 6 Walk 50ft with 2 Turns (QC): 6 Walk 150 ft (QC): 6 Gait Level of Assist: 6 Gait Assistive Device: FWW Stairs (FIM): 5 # of Steps: 8 1 Step (curb) (QC): 6 4 Steps (QC): 6 12 Steps (QC): 5 Stairs Level Of Assist: 6 Picking up an Object (QC): 5 PT Plan Problem List Problem List: Activity Tolerance, Functional Strength, Safety, Balance, Gait, Transfer, Bed Mobility, ROM Treatment/Plan Treatment Plan: Continue Plan of Care Treatment Plan: Bed Mobility, Education, Functional Activity Carlos A, Functional Strength, Group Therapy, Gait, Safety, Therapeutic Exercise, Transfers Treatment Duration: Aug 13, 2017 Frequency: At least 5 to 7 days/Wk (IRF) Estimated Hrs Per Day: 1.5 hours per day Patient and/or Family Agrees t: Yes Safety Risks/Education Patient Education: Transfer Techniques, Reviewed Precautions, Correct Positioning, W/C Management, Safety Issues Teaching Recipient: Patient Teaching Methods: Demonstration, Discussion Response to Teaching: Verbalize Understanding, Return Demonstration, Reinforcement Needed Time/GCodes Time In: 800 Time Out: 900 Total Billed Treatment Time: 60 Total Billed Treatment 1 visit 60 FA 60 min co-treat with OT. OT completes showering, dressing and grooming and PT completes all transfers. PT also completes weight shifts and posturing throughout tx. STEPHANE KC PT Jul 27, 2017 09:00
[2017-07-27] MEDS: ENOXAPARIN 40 MG/0.4 ML (LOVENOX) SYR SC SCH (10:00)
--- NOTE | 2017-07-27 14:12 | Physical Therapy Daily Note ---
PT Daily Note-Current Subjective Pt was sitting in rehab gym prior to PT, just finished with OT and agreeable to tx. Pt was lying in bed with nurse call, phone, tray, all needs in reach post tx. Pain Numeric Pain Scale: 0-No Pain Location: No Pain Reported Mental Status Patient Orientation: Normal For Age Attachments: Colostomy/Ileostomy, Reynolds Catheter Transfers Functional [place] Measure 0=Not Assessed/NA 4=Minimal Assistance 1=Total Assistance 5=Supervision or Setup 2=Maximal Assistance 6=Modified [place] 3=Moderate Assistance 7=Complete IndependenceIRFPAI Quality Coding Scale 6 Independent with activity with or without an assistive device 5 Patient requires set up or clean up by helper. Patient completes activity by themselves 4 Supervision or touching assist (CGA). [place] provide cues , steadying assist 3 The helper provides less than half the effort to complete the activity 2 The helper provides more than half the effort to complete the activity 1 Dependent. The helper does all the effort to complete an activity 7 Patient refused to complete or attempt activity 9 The patient did not perform the activity before the current illness or injury 88 Not attempted due to Medical conditions or safety concerns Transfers (B, C, W/C) (FIM): 1 Scootin Supine to/from Sit: 1 Sit to/from Stand: 1 Pt is total assist with all bed mobility and transfers; however follows cues to participate with the transfer. Pt is given verbal cues for hand and leg placement and for safety. Gait Training Does the Patient Walk?: No and Walking Goal IS indicated Wheelchair Training Does the Pt Use a Wheelchair?: Yes Wheelchair (FIM): 2 Wheelchair Distance: 2=096-19 ft Distance: 100' Wheelchair Level of Assist: 4 Type of Wheelchair: Manual Pt is min assist with wheelchair mobility with turning and steering. Pt propels using her arms and requires footrests on the wheelchair due to being unable to lift and use feet to help move wheelchair forward. Pt fatigues quickly, requires frequent breaks. Exercises NuStep Minutes: 8 NuStep Workload: 1 Treatments Pt completes 8 minutes on Nustep for cardiovascular training and functional strengthening. Pt completes wheelchair training to help increase activity tolerance and functional mobility. Assessment Current Status: Good Progress Pt requires verbal cues with all transfers and bed mobility for safety, still requires encouragement to assist with movement. NuStep had a positive effect on patient, helped improve confidence in her ability to move. PT Short Term Goals Short Term Goals Time Frame: Jul 30, 2017 Transfers (B,C,W/C) (FIM): 3 Gait (FIM): 2 Distance (FIM): 4=844-87 ft Gait Assistive Device: FWW Wheelchair Distance: 40' PT Retirement Goals Retirement Goals PT Ship Laborer Goals Time Frame: Aug 13, 2017 Transfers (B,C,W/C) (FIM): 6 Sit to Lying (QC): 6 Lying-Sitting on Side/Bed(QC): 6 Sit to Stand (QC): 6 Rollin Roll Left to Right (QC): 6 Chair/Otp-dj-Fyuca Xfer(QC): 6 Car Transfer (QC): 5 Does the Patient Walk: No and Walking Goal IS indicated Gait (FIM): 6 Gait distance (FIM): 3=150 ft Walk 10 feet (QC): 6 Walk 10ft-Uneven Surface(QC): 6 Walk 50ft with 2 Turns (QC): 6 Walk 150 ft (QC): 6 Gait Level of Assist: 6 Gait Assistive Device: FWW Stairs (FIM): 5 # of Steps: 8 1 Step (curb) (QC): 6 4 Steps (QC): 6 12 Steps (QC): 5 Stairs Level Of Assist: 6 Picking up an Object (QC): 5 PT Plan Problem List Problem List: Activity Tolerance, Functional Strength, Safety, Balance, Gait, Transfer, Bed Mobility, ROM Treatment/Plan Treatment Plan: Continue Plan of Care Treatment Plan: Bed Mobility, Education, Functional Activity Carlos A, Functional Strength, Group Therapy, Gait, Safety, Therapeutic Exercise, Transfers Treatment Duration: Aug 13, 2017 Frequency: At least 5 to 7 days/Wk (IRF) Estimated Hrs Per Day: 1.5 hours per day Patient and/or Family Agrees t: Yes Safety Risks/Education Patient Education: Transfer Techniques, Reviewed Precautions, Correct Positioning, W/C Management, Safety Issues Teaching Recipient: Patient Teaching Methods: Demonstration, Discussion Response to Teaching: Verbalize Understanding, Reinforcement Needed Time/GCodes Time In: 1330 Time Out: 1400 Total Billed Treatment Time: 30 Total Billed Treatment [address] [facility] LILY MATTHEWS PT Jul 27, 2017 14:12
--- NOTE | 2017-07-27 14:32 | Occupational Ther Daily Note ---
OT Current Status-Daily Note Subjective Pt alert, sitting in bed. No c/o pain. Agrees to therapy. Mental Status/Objective Patient Orientation: Person, Place, Time, Situation Functional [place] Measure 0=Not Assessed/NA 4=Minimal Assistance 1=Total Assistance 5=Supervision or Setup 2=Maximal Assistance 6=Modified [place] 3=Moderate Assistance 7=Complete [place] Attachments: Colostomy/Ileostomy, Reynolds Catheter ADL-Treatment Functional [place] Measure 0=Not Assessed/NA 4=Minimal Assistance 1=Total Assistance 5=Supervision or Setup 2=Maximal Assistance 6=Modified [place] 3=Moderate Assistance 7=Complete IndependenceIRFPAI Quality Coding Scale 6 Independent with activity with or without an assistive device 5 Patient requires set up or clean up by helper. Patient completes activity by themselves 4 Supervision or touching assist (CGA). [place] provide cues , steadying assist 3 The helper provides less than half the effort to complete the activity 2 The helper provides more than half the effort to complete the activity 1 Dependent. The helper does all the effort to complete an activity 7 Patient refused to complete or attempt activity 9 The patient did not perform the activity before the current illness or injury 88 Not attempted due to Medical conditions or safety concerns Other Treatment Pt sits EOB for education on weightbearing in arms during transfer. Transfers into w/c, attempted to push with UE's for sit to stand, stabilizing knees during stand pivot transfer. Transported pt to gym via w/c. Completes AROM activity to increase strength in hands, works on finger flex/ext, thumb flex/ext , thumb abd/add, and curling hand into fist. Tolerated well. After therapy, pt in therapy gym in care of PT. All needs met. OT Short Term Goals Short Term Goals Time Frame: Jul 30, 2017 Eating(FIM): 4 Grooming(FIM): 4 Bathing(FIM): 3 Upper Body Dressing(FIM): 3 Lower Body Dressing(FIM): 3 Toileting(FIM): 3 Transfers (B,C,W/C) (FIM): 3 Toilet/Commode Transfer(FIM): 3 Shower Transfer(FIM): 3 Additional Short Term Goals: 1-Demonstrate ADL Tasks, 2-Verbalize Understanding , 3-ImproveStrength/Carlos A 1=Demonstrate adherence to instructed precautions during ADL tasks. 2=Patient will verbalize/demonstrate understanding of assistive devices/ modifications for ADL. 3=Patient will improve strength/tolerance for activity to enable patient to perform ADL's. OT Mcc Goals Circular Ripsaw Operator Goals Time Frame: Aug 13, 2017 Eating (FIM): 5 Eating (QC): 5 Groomin Oral Hygiene (QC): 5 Bathing(FIM): 5 Shower/Bathe Self (QC): 4 Upper Body Dressing(FIM): 5 Upper Body Dressing (QC): 4 Lower Body Dressing(FIM): 5 Lower Body Dressing (QC): 4 On/Off Footwear (QC): 4 Toileting(FIM): 5 Toileting Hygiene (QC): 4 Transfers (B,C,W/C) (FIM): 5 Toilet/Commode Transfer(FIM): 5 Toilet/Commode Transfer (QC): 4 Tub Transfer(FIM): 5 Shower Transfer(FIM): 4 Additional Goals: 1-Demonstrate ADL Tasks, 2-Verbalize Understanding, 3- ImproveStrength/Carlos A 1=Demonstrate adherence to instructed precautions during ADL tasks. 2=Patient will verbalize/demonstrate understanding of assistive devices/ modifications for ADL. 3=Patient will improve strength/tolerance for activity to enable patient to perform ADL's. OT Education/Plan Discharge Recommendations Plan/Recommendations: Continue POC Treatment Plan/Plan of Care Patient would benefit from OT for education, treatment and training to promote independence in ADL's, mobility, safety and/or upper extremity function for ADL' s. Plan of Care: ADL Retraining, Caregiver Training, Functional Mobility, Group Exercise/Act as Ind, UE Funct Exercise/Act Treatment Duration: Aug 13, 2017 Frequency: At least 5 to 7 days/Wk (IRF) Estimated Hrs Per Day: 1.5 hours per day Agreement: Yes Rehab Potential: Good Time/GCodes Start Time: 13:00 Stop Time: 13:30 Total Time Billed (hr/min): 30 Billed Treatment Time 1 visit, EX 2 (30 minutes) LILY INMAN Jul 27, 2017 14:32
[2017-07-27 18:20] VITALS: BP 100/61
--- NOTE | 2017-07-27 20:28 | PM & R (SOAP) Progress Note ---
Subjective Time Seen by Provider: 20:20 Subjective/Events-last exam Patient was seen in her room this evening Discussed case with DR Pickett last Thursday the Patient prfers to keep green catheter for now until stronger.Patient remains dependent for transfers Trach site covered with dressing Review of Systems Neurological: Weakness Objective Exam Last Set of Vital Signs Vital Signs Date Time Temp Pulse Resp B/P (MAP) Pulse Ox O2 Delivery O2 Flow Rate FiO2 07/27/17 18:20 97.5 92 14 100/61 98 07/27/17 09:00 Room Air Capillary Refill : I&O Intake and Output 07/28/17 00:00 Intake Total 1120 ml Output Total 875 ml Balance 245 ml Intake Oral 1120 ml Output Urine Total 825 ml Stool Total 50 ml General: Alert, Oriented X3, Cooperative, No Acute Distress HEENT: Atraumatic, PERRLA, EOMI, Mucous Memb Moist/[place] Neck: Supple, No JVD, Other (trach plugged) Lungs: Clear to Auscultation Heart: Regular Rate Abdomen: Normal Bowel Sounds, Soft, No Tenderness, Other (colostomy functioning ) Neuro: Other (2/5/strength both lower extremities Sensation intact Cognition intact ST assessing swallow) Assessment/Plan Assessment Crtical illness myopathy S/P trach now decannulkated DR Causey S/P Peg tube removal/ S/P colostomy for perforated bowel DR Ng HTN Chronic constipation Elevated LFTS Hypercalcemia Hypomagnesemia Urinary retention -Green reinserted and to remain in for now DVT prophylaxis Heparin switched to Lovenox SUBCUT Plan Continue PT/OT/ST F/U with hospitalist in lieu of pcp and DR Ng re abnormal la [place] [facility] consulted re reactive anxiety F/U with DR Causey and Nieves prn Family conference scheduled for tomorrow. RTIP SIERRA MD Jul 27, 2017 20:28
[2017-07-27] MEDS: POLYETHYLENE GLYCOL 17 GM (MIRALAX) PACK PO SCH (21:30)
[2017-07-28 05:42] VITALS: BP 142/72
[2017-07-28] MEDS: PANTOPRAZOLE 20 MG TABLET (PROTONIX) PO SCH (06:32)
[2017-07-28] MEDS: LEVOTHYROXINE 100 MCG (LEVOTHROID) TAB PO SCH (06:32)
[2017-07-28] MEDS: predniSONE 5 MG TAB PO SCH (06:32)
[2017-07-28] MEDS: PROPAFENONE 150 MG (RYTHMOL) TABLET PO SCH ×3 (06:33→21:59)
[2017-07-28] MEDS: LACTOBACILLUS Acidoph/Bulgar (LACTINEX/FLORANEX) TAB PO SCH ×3 (06:34→13:54)
[2017-07-28] MEDS: ASPIRIN E.C. 81 MG (ECOTRIN) TAB PO SCH (08:09)
[2017-07-28] MEDS: ALPRAZolam 0.5 MG (XANAX) TAB PO SCH ×3 (08:09→21:11)
[2017-07-28] MEDS: LOSARTAN 50 MG (COZAAR) TAB PO SCH (08:10)
[2017-07-28] MEDS: risperiDONE 0.25 MG (RisperDAL) TAB PO SCH (08:10)
[2017-07-28] MEDS: buPROPion SR 150 MG (WELLBUTRIN SR) TAB PO SCH (08:10)
[2017-07-28] MEDS: LACTULOSE SYRUP 10GM/15ML (ENULOSE) 30ML UDC PO SCH ×2 (08:28→21:11)
[2017-07-28] MEDS: SENNA W/DOCUSATE (SENOKOT S) TABLET PO SCH ×2 (08:29→21:11)
--- NOTE | 2017-07-28 09:36 | Physical Therapy Daily Note ---
PT Daily Note-Current Subjective Pt was lying in bed prior to tx and agreeable to PT. Pt colostomy has leaked and to be co-treated with OT. Pt was lying in bed with nurse call, phone, tray, all needs in reach post tx. Pain Numeric Pain Scale: 0-No Pain Location: No Pain Reported Mental Status Patient Orientation: Normal For Age Attachments: Colostomy/Ileostomy, Reynolds Catheter Transfers Functional [place] Measure 0=Not Assessed/NA 4=Minimal Assistance 1=Total Assistance 5=Supervision or Setup 2=Maximal Assistance 6=Modified [place] 3=Moderate Assistance 7=Complete IndependenceIRFPAI Quality Coding Scale 6 Independent with activity with or without an assistive device 5 Patient requires set up or clean up by helper. Patient completes activity by themselves 4 Supervision or touching assist (CGA). [place] provide cues , steadying assist 3 The helper provides less than half the effort to complete the activity 2 The helper provides more than half the effort to complete the activity 1 Dependent. The helper does all the effort to complete an activity 7 Patient refused to complete or attempt activity 9 The patient did not perform the activity before the current illness or injury 88 Not attempted due to Medical conditions or safety concerns Transfers (B, C, W/C) (FIM): 1 Scootin Rollin Supine to/from Sit: 3 Sit to/from Stand: 2 Bed to/from Chair: 2 Pt is max assist with sit to stand, and mod assist with rolling. Pt requires careful, specific verbal cues for hand placement and positioning during transfers. Gait Training Does the Patient Walk?: No and Walking Goal IS indicated Exercises Supine Ex: Bridging, Ankle pumps, Quad Set, Glut sets, Heel Slides, Short Arc Quads, Straight leg raise, Hip abd/add Supine Reps: 16 Treatments Pt is co-treated with OT. OT completes showering, dressing, and grooming. PT completes all transfers, works with pt on weight shifting and posturing throughout tx. Pt requires verbal cues for safety. Assessment Current Status: Fair Progress Pt is improving with bed mobility and stand pivot transfers, makes an increased effort with verbal cues. Pt uses handrails with rolling, and is improved in scooting feet to edge of bed with supine to sit transfer. PT Short Term Goals Short Term Goals Time Frame: Jul 30, 2017 Transfers (B,C,W/C) (FIM): 3 Gait (FIM): 2 Distance (FIM): 4=027-62 ft Gait Assistive Device: FWW Wheelchair Distance: 100' PT Pharmacy Graduate Intern Goals Pharmacy Graduate Intern Goals PT Fpc Goals Time Frame: Aug 13, 2017 Transfers (B,C,W/C) (FIM): 6 Sit to Lying (QC): 6 Lying-Sitting on Side/Bed(QC): 6 Sit to Stand (QC): 6 Rollin Roll Left to Right (QC): 6 Chair/Rrd-kd-Lpaoa Xfer(QC): 6 Car Transfer (QC): 5 Does the Patient Walk: No and Walking Goal IS indicated Gait (FIM): 6 Gait distance (FIM): 3=150 ft Walk 10 feet (QC): 6 Walk 10ft-Uneven Surface(QC): 6 Walk 50ft with 2 Turns (QC): 6 Walk 150 ft (QC): 6 Gait Level of Assist: 6 Gait Assistive Device: FWW Stairs (FIM): 5 # of Steps: 8 1 Step (curb) (QC): 6 4 Steps (QC): 6 12 Steps (QC): 5 Stairs Level Of Assist: 6 Picking up an Object (QC): 5 PT Plan Problem List Problem List: Activity Tolerance, Functional Strength, Safety, Balance, Gait, Transfer, Bed Mobility, ROM Treatment/Plan Treatment Plan: Continue Plan of Care Treatment Plan: Bed Mobility, Education, Functional Activity Carlos A, Functional Strength, Group Therapy, Gait, Safety, Therapeutic Exercise, Transfers Treatment Duration: Aug 13, 2017 Frequency: At least 5 to 7 days/Wk (IRF) Estimated Hrs Per Day: 1.5 hours per day Patient and/or Family Agrees t: Yes Safety Risks/Education Patient Education: Transfer Techniques, Reviewed Precautions, Correct Positioning, W/C Management, Safety Issues Teaching Recipient: Patient Teaching Methods: Demonstration, Discussion Response to Teaching: Verbalize Understanding, Reinforcement Needed Time/GCodes Time In: 800 Time Out: 930 Total Billed Treatment Time: 90 Total Billed Treatment 1 visit 75 FA 15 EX 60 minutes were co-treated with occupational therapy. OT completes showering, dressing, and grooming. PT completes all transfers, works with pt on weight shifting and posturing throughout tx STEPHANE KC PT Jul 28, 2017 09:36
--- NOTE | 2017-07-28 09:51 | Progress Note-Hospitalist ---
Progress Note HPI/CC on Admission here for physical therapy to get better and stronger enough to go home. Complains primarily of her buttocks hurting from the pressure. Progress Notes/Assess & Plan Date Seen 07/28/17 Time Seen by Provider: 09:30 Diagonsis/Assessment & Plan Pt feels ok except lightheaded when she changes positions Lactulose resulted in large evacuation today Family meeting today to see if they can care for her at home ultimately AFVSS, Pleasant, improved RRR, CTAB No edema Muscle wasting lower legs Assessment: Hypercalcemia Elevated liver function tests mild History of SVT and V. tach rhythm Profound muscle weakness of uncertain etiology other than long-standing critical illness Respiratory failure resolved Constipation resolved colostomy operating normally Plan: Miralax and Lactulose Lovenox 40 once daily No meds are causing lightheaded feeling DAVY ROME DO Jul 28, 2017 09:51
[2017-07-28] MEDS: ENOXAPARIN 40 MG/0.4 ML (LOVENOX) SYR SC SCH (10:04)
--- NOTE | 2017-07-28 10:56 | Occupational Ther Daily Note ---
OT Current Status-Daily Note Subjective Pt sitting in bed. Colostomy bag broke, in need of clean up and bath. No c/o pain. Mental Status/Objective Patient Orientation: Person, Place, Time, Situation Functional [place] Measure 0=Not Assessed/NA 4=Minimal Assistance 1=Total Assistance 5=Supervision or Setup 2=Maximal Assistance 6=Modified [place] 3=Moderate Assistance 7=Complete [place] Attachments: Colostomy/Ileostomy, Reynolds Catheter ADL-Treatment Co treatment with PT. Co treat due to pt's weakness and low fatigue levels, requires skilled treatment. PT worked on transfers, body mechanics, and bed mobility. OT worked on ADL's such as bathing, dressing, and grooming. Functional [place] Measure 0=Not Assessed/NA 4=Minimal Assistance 1=Total Assistance 5=Supervision or Setup 2=Maximal Assistance 6=Modified [place] 3=Moderate Assistance 7=Complete IndependenceIRFPAI Quality Coding Scale 6 Independent with activity with or without an assistive device 5 Patient requires set up or clean up by helper. Patient completes activity by themselves 4 Supervision or touching assist (CGA). [place] provide cues , steadying assist 3 The helper provides less than half the effort to complete the activity 2 The helper provides more than half the effort to complete the activity 1 Dependent. The helper does all the effort to complete an activity 7 Patient refused to complete or attempt activity 9 The patient did not perform the activity before the current illness or injury 88 Not attempted due to Medical conditions or safety concerns Grooming (FIM): 4 (Pt able to complete teeth brushing, face washing, and applying deodorant while seated after set up. Pt progressed to leaning to sink and sustaining position by self. Able to comb hair, requiring min assistance with back of head. ) Bathing (FIM): 3 (Pt requires assistance washing/drying lower legs, feet, buttocks, armpits, and back. Pt able to lean forward by self when washing back. Using rolling shower chair and handheld shower. ) Bathing Location: L Arm, R Arm, L Upper Leg, R Upper Leg, Chest, Abdomen, Perineal Area Upper Body (FIM): 3 (After set up, pt able to manipulate shirt to get arm in sleeve while seated. Assistance needed to pull shirt over shoulders, over head, and down body. ) Lower Body Dressing (FIM): 2 (Requires assitance to thread feet through pant leg. Pt able to lift feet slightly off ground to help. Max A required to stand while other pulls pants over hips. Assistance for donning and doffing shoes and socks. ) Transfers (B, C, W/C) (FIM): 2 (Pt requires max A for sit to stand and stand pivot transfer. ) Shower Transfer(FIM): 2 (Max A to transfer into shower chair, transported into shower where bathing was completed. ) OT Short Term Goals Short Term Goals Time Frame: Jul 30, 2017 Eating(FIM): 4 Grooming(FIM): 4 Bathing(FIM): 3 Upper Body Dressing(FIM): 3 Lower Body Dressing(FIM): 3 Toileting(FIM): 3 Transfers (B,C,W/C) (FIM): 3 Toilet/Commode Transfer(FIM): 3 Shower Transfer(FIM): 3 Additional Short Term Goals: 1-Demonstrate ADL Tasks, 2-Verbalize Understanding , 3-ImproveStrength/Carlos A 1=Demonstrate adherence to instructed precautions during ADL tasks. 2=Patient will verbalize/demonstrate understanding of assistive devices/ modifications for ADL. 3=Patient will improve strength/tolerance for activity to enable patient to perform ADL's. OT Lieutenant Ballistics Goals Usp Goals Time Frame: Aug 13, 2017 Eating (FIM): 5 Eating (QC): 5 Groomin Oral Hygiene (QC): 5 Bathing(FIM): 5 Shower/Bathe Self (QC): 4 Upper Body Dressing(FIM): 5 Upper Body Dressing (QC): 4 Lower Body Dressing(FIM): 5 Lower Body Dressing (QC): 4 On/Off Footwear (QC): 4 Toileting(FIM): 5 Toileting Hygiene (QC): 4 Transfers (B,C,W/C) (FIM): 5 Toilet/Commode Transfer(FIM): 5 Toilet/Commode Transfer (QC): 4 Tub Transfer(FIM): 5 Shower Transfer(FIM): 4 Additional Goals: 1-Demonstrate ADL Tasks, 2-Verbalize Understanding, 3- ImproveStrength/Carlos A 1=Demonstrate adherence to instructed precautions during ADL tasks. 2=Patient will verbalize/demonstrate understanding of assistive devices/ modifications for ADL. 3=Patient will improve strength/tolerance for activity to enable patient to perform ADL's. OT Education/Plan Discharge Recommendations Plan/Recommendations: Continue POC Treatment Plan/Plan of Care Patient would benefit from OT for education, treatment and training to promote independence in ADL's, mobility, safety and/or upper extremity function for ADL' s. Plan of Care: ADL Retraining, Caregiver Training, Functional Mobility, Group Exercise/Act as Ind, UE Funct Exercise/Act Treatment Duration: Aug 13, 2017 Frequency: At least 5 to 7 days/Wk (IRF) Estimated Hrs Per Day: 1.5 hours per day Agreement: Yes Rehab Potential: Good Time/GCodes Start Time: 08:15 Stop Time: 09:15 Total Time Billed (hr/min): 60 Billed Treatment Time 1 visit, ADL 4 (60 minutes) Co Treatment Time: 60 minutes ([id number]) LILY INMAN Jul 28, 2017 10:56
--- NOTE | 2017-07-28 13:40 | Occupational Ther Daily Note ---
OT Current Status-Daily Note Subjective Pt sleeping in bed. Woken up and agrees to therapy. No c/o pain. Mental Status/Objective Patient Orientation: Person, Place, Time, Situation Functional [place] Measure 0=Not Assessed/NA 4=Minimal Assistance 1=Total Assistance 5=Supervision or Setup 2=Maximal Assistance 6=Modified [place] 3=Moderate Assistance 7=Complete [place] ADL-Treatment Functional [place] Measure 0=Not Assessed/NA 4=Minimal Assistance 1=Total Assistance 5=Supervision or Setup 2=Maximal Assistance 6=Modified [place] 3=Moderate Assistance 7=Complete IndependenceIRFPAI Quality Coding Scale 6 Independent with activity with or without an assistive device 5 Patient requires set up or clean up by helper. Patient completes activity by themselves 4 Supervision or touching assist (CGA). [place] provide cues , steadying assist 3 The helper provides less than half the effort to complete the activity 2 The helper provides more than half the effort to complete the activity 1 Dependent. The helper does all the effort to complete an activity 7 Patient refused to complete or attempt activity 9 The patient did not perform the activity before the current illness or injury 88 Not attempted due to Medical conditions or safety concerns Other Treatment Pt transfers from EOB to w/c with max A. Transported into therapy gym. Pt participates in gopal exercises to work on shoulder flexion, shoulder abduction and adduction, and crossing midline. With pulleys pt uses B UE to pull down one at a time 30x. Pt then crosses gopal across body 30x. Pt pulls gopal up and down with arm to side 30x. Activity used to increase strength, AROM, and activity tolerance for functional daily activities. Pt then uses theraputty to squeeze in hands to increase gross grasp strength. Pt rolls theraputty out with each hand and pinches it to increase pinch strength. After therapy, pt sitting in w/c in therapy gym left in care of PT. All needs met. OT Short Term Goals Short Term Goals Time Frame: Jul 30, 2017 Eating(FIM): 4 Grooming(FIM): 4 Bathing(FIM): 3 Upper Body Dressing(FIM): 3 Lower Body Dressing(FIM): 3 Toileting(FIM): 3 Transfers (B,C,W/C) (FIM): 3 Toilet/Commode Transfer(FIM): 3 Shower Transfer(FIM): 3 Additional Short Term Goals: 1-Demonstrate ADL Tasks, 2-Verbalize Understanding , 3-ImproveStrength/Carlos A 1=Demonstrate adherence to instructed precautions during ADL tasks. 2=Patient will verbalize/demonstrate understanding of assistive devices/ modifications for ADL. 3=Patient will improve strength/tolerance for activity to enable patient to perform ADL's. OT Senior Care Goals Sales Review Clerk Goals Time Frame: Aug 13, 2017 Eating (FIM): 5 Eating (QC): 5 Groomin Oral Hygiene (QC): 5 Bathing(FIM): 5 Shower/Bathe Self (QC): 4 Upper Body Dressing(FIM): 5 Upper Body Dressing (QC): 4 Lower Body Dressing(FIM): 5 Lower Body Dressing (QC): 4 On/Off Footwear (QC): 4 Toileting(FIM): 5 Toileting Hygiene (QC): 4 Transfers (B,C,W/C) (FIM): 5 Toilet/Commode Transfer(FIM): 5 Toilet/Commode Transfer (QC): 4 Tub Transfer(FIM): 5 Shower Transfer(FIM): 4 Additional Goals: 1-Demonstrate ADL Tasks, 2-Verbalize Understanding, 3- ImproveStrength/Carlos A 1=Demonstrate adherence to instructed precautions during ADL tasks. 2=Patient will verbalize/demonstrate understanding of assistive devices/ modifications for ADL. 3=Patient will improve strength/tolerance for activity to enable patient to perform ADL's. OT Education/Plan Discharge Recommendations Plan/Recommendations: Continue POC Treatment Plan/Plan of Care Patient would benefit from OT for education, treatment and training to promote independence in ADL's, mobility, safety and/or upper extremity function for ADL' s. Plan of Care: ADL Retraining, Caregiver Training, Functional Mobility, Group Exercise/Act as Ind, UE Funct Exercise/Act Treatment Duration: Aug 13, 2017 Frequency: At least 5 to 7 days/Wk (IRF) Estimated Hrs Per Day: 1.5 hours per day Agreement: Yes Rehab Potential: Good Time/GCodes Start Time: 12:55 Stop Time: 13:25 Total Time Billed (hr/min): 30 Billed Treatment Time 1 visit, EX 2 (30 minutes) LILY INMAN Jul 28, 2017 13:40
--- NOTE | 2017-07-28 14:00 | Physical Therapy Daily Note ---
PT Daily Note-Current Subjective Pt was sitting in rehab gym, just finished with OT, prior to tx and agreeable to PT. Pt was lying in bed with nurse call, radha, all needs in reach post tx. Pain Numeric Pain Scale: 0-No Pain Location: No Pain Reported Mental Status Patient Orientation: Normal For Age Attachments: Colostomy/Ileostomy, Reynolds Catheter Transfers Functional [place] Measure 0=Not Assessed/NA 4=Minimal Assistance 1=Total Assistance 5=Supervision or Setup 2=Maximal Assistance 6=Modified [place] 3=Moderate Assistance 7=Complete IndependenceIRFPAI Quality Coding Scale 6 Independent with activity with or without an assistive device 5 Patient requires set up or clean up by helper. Patient completes activity by themselves 4 Supervision or touching assist (CGA). [place] provide cues , steadying assist 3 The helper provides less than half the effort to complete the activity 2 The helper provides more than half the effort to complete the activity 1 Dependent. The helper does all the effort to complete an activity 7 Patient refused to complete or attempt activity 9 The patient did not perform the activity before the current illness or injury 88 Not attempted due to Medical conditions or safety concerns Transfers (B, C, W/C) (FIM): 1 Scootin Rollin Supine to/from Sit: 2 Sit to/from Stand: 2 Bed to/from Chair: 2 Pt is max assist with sit to stand transfers and requires verbal cues for hand placement. Pt is mod assist with sit to supine and requires support lifting legs onto bed and verbal cues for safety. Gait Training Does the Patient Walk?: No and Walking Goal IS indicated Wheelchair Training Does the Pt Use a Wheelchair?: Yes Wheelchair (FIM): 2 Wheelchair Distance: 6=040-82 ft Distance: 50' Wheelchair Level of Assist: 4 Type of Wheelchair: Manual Pt is min assist with wheelchair mobility and requires help with turning. Exercises NuStep Minutes: 10 NuStep Workload: 4 Treatments Pt completes tx on NuStep to increase functional strengthening. Pt completes wheelchair mobility to increase activity tolerance and functional mobility. Assessment Current Status: Fair Progress Improving endurance and bed mobility and transfers. PT Short Term Goals Short Term Goals Time Frame: Jul 30, 2017 Transfers (B,C,W/C) (FIM): 3 Gait (FIM): 2 Distance (FIM): 9=804-02 ft Gait Assistive Device: FWW Wheelchair Distance: 100' PT Slab Worker Goals Slab Worker Goals PT Slab Worker Goals Time Frame: Aug 13, 2017 Transfers (B,C,W/C) (FIM): 6 Sit to Lying (QC): 6 Lying-Sitting on Side/Bed(QC): 6 Sit to Stand (QC): 6 Rollin Roll Left to Right (QC): 6 Chair/Zea-eh-Yikmt Xfer(QC): 6 Car Transfer (QC): 5 Does the Patient Walk: No and Walking Goal IS indicated Gait (FIM): 6 Gait distance (FIM): 3=150 ft Walk 10 feet (QC): 6 Walk 10ft-Uneven Surface(QC): 6 Walk 50ft with 2 Turns (QC): 6 Walk 150 ft (QC): 6 Gait Level of Assist: 6 Gait Assistive Device: FWW Stairs (FIM): 5 # of Steps: 8 1 Step (curb) (QC): 6 4 Steps (QC): 6 12 Steps (QC): 5 Stairs Level Of Assist: 6 Picking up an Object (QC): 5 PT Plan Problem List Problem List: Activity Tolerance, Functional Strength, Safety, Balance, Gait, Transfer, Bed Mobility, ROM Treatment/Plan Treatment Plan: Continue Plan of Care Treatment Plan: Bed Mobility, Education, Functional Activity Carlos A, Functional Strength, Group Therapy, Gait, Safety, Therapeutic Exercise, Transfers Treatment Duration: Aug 13, 2017 Frequency: At least 5 to 7 days/Wk (IRF) Estimated Hrs Per Day: 1.5 hours per day Patient and/or Family Agrees t: Yes Safety Risks/Education Patient Education: Gait Training, Transfer Techniques, Reviewed Precautions, Correct Positioning, W/C Management, Safety Issues Teaching Recipient: Patient Teaching Methods: Demonstration, Discussion Response to Teaching: Verbalize Understanding, Reinforcement Needed Time/GCodes Time In: 1330 Time Out: 1400 Total Billed Treatment Time: 30 Total Billed Treatment 1 visit 10 EX 20 STEPHANE WREN PT Jul 28, 2017 14:00
[2017-07-28 18:07] VITALS: BP 119/66
--- NOTE | 2017-07-28 19:33 | PM & R (SOAP) Progress Note ---
Subjective Time Seen by Provider: 07:45 Subjective/Events-last exam Patient was seen in her room this AM Patient max assist for transfers Discussed case with RN Peg Tube site appears inflamed may have had fecla contamination from Colostomy site Will consult DR García fruit buyer has ordered some interem care, See orders. Dry dressing in place at this time. Patient denies pain in that area. Family Conference hed this AM See note. Objective Exam Last Set of Vital Signs Vital Signs Date Time Temp Pulse Resp B/P (MAP) Pulse Ox O2 Delivery O2 Flow Rate FiO2 07/28/17 19:05 95 Room Air 07/28/17 18:07 97.4 89 16 119/66 Capillary Refill : I&O Intake and Output 07/29/17 00:00 Intake Total 700 ml Output Total 1175 ml Balance -475 ml Intake Oral 700 ml Output Urine Total 1100 ml Stool Total 75 ml General: Alert, Oriented X3, Cooperative, No Acute Distress HEENT: Atraumatic, PERRLA, EOMI, Mucous Memb Moist/[place] Neck: Supple, No JVD, Other (trach plugged) Lungs: Clear to Auscultation Heart: Regular Rate Abdomen: Normal Bowel Sounds, Soft, No Tenderness, Other ( Peg tube site as per above Colostomy functioning) Neuro: Other (2/5/strength both lower extremities Sensation intact Cognition intact ST assessing swallow) Assessment/Plan Assessment 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 consulted re reactive anxiety-Appreciate their note F/U with DR Causey and Nieves kenney Family conference held today-See SW note Consult DR García re wound care-See orders. Team Conference tomorrow 07/29/17. TRIP SIERRA MD Jul 28, 2017 19:33
[2017-07-28] MEDS: POLYETHYLENE GLYCOL 17 GM (MIRALAX) PACK PO SCH (21:11)
[2017-07-29 04:00] VITALS: BP 147/66
[2017-07-29] MEDS: PANTOPRAZOLE 20 MG TABLET (PROTONIX) PO SCH (06:21)
[2017-07-29] MEDS: PROPAFENONE 150 MG (RYTHMOL) TABLET PO SCH ×3 (06:21→21:08)
[2017-07-29] MEDS: predniSONE 5 MG TAB PO SCH (06:21)
[2017-07-29] MEDS: LEVOTHYROXINE 100 MCG (LEVOTHROID) TAB PO SCH (06:21)
[2017-07-29] MEDS: LACTOBACILLUS Acidoph/Bulgar (LACTINEX/FLORANEX) TAB PO SCH ×3 (06:21→17:33)
[2017-07-29 08:18] VITALS: BP 130/68
[2017-07-29] MEDS: SENNA W/DOCUSATE (SENOKOT S) TABLET PO SCH ×2 (08:20→21:09)
[2017-07-29] MEDS: buPROPion SR 150 MG (WELLBUTRIN SR) TAB PO SCH (08:20)
[2017-07-29] MEDS: LOSARTAN 50 MG (COZAAR) TAB PO SCH (08:20)
[2017-07-29] MEDS: ALPRAZolam 0.5 MG (XANAX) TAB PO SCH ×3 (08:20→21:09)
[2017-07-29] MEDS: ASPIRIN E.C. 81 MG (ECOTRIN) TAB PO SCH (08:20)
[2017-07-29] MEDS: risperiDONE 0.25 MG (RisperDAL) TAB PO SCH (08:20)
[2017-07-29] MEDS: LACTULOSE SYRUP 10GM/15ML (ENULOSE) 30ML UDC PO SCH ×2 (08:21→21:09)
--- NOTE | 2017-07-29 10:00 | Physical Therapy Daily Note ---
PT Daily Note-Current Subjective Pt was lying in bed prior to tx and agreeable to PT. Pt reports legs are sore. Pt was sitting in wheelchair (has OT next) with nurse call, radha, all needs in reach post tx. Pain Numeric Pain Scale: 0-No Pain Location: No Pain Reported Mental Status Patient Orientation: Normal For Age Attachments: Colostomy/Ileostomy, Reynolds Catheter Transfers Functional [place] Measure 0=Not Assessed/NA 4=Minimal Assistance 1=Total Assistance 5=Supervision or Setup 2=Maximal Assistance 6=Modified [place] 3=Moderate Assistance 7=Complete IndependenceIRFPAI Quality Coding Scale 6 Independent with activity with or without an assistive device 5 Patient requires set up or clean up by helper. Patient completes activity by themselves 4 Supervision or touching assist (CGA). [place] provide cues , steadying assist 3 The helper provides less than half the effort to complete the activity 2 The helper provides more than half the effort to complete the activity 1 Dependent. The helper does all the effort to complete an activity 7 Patient refused to complete or attempt activity 9 The patient did not perform the activity before the current illness or injury 88 Not attempted due to Medical conditions or safety concerns Transfers (B, C, W/C) (FIM): 1 Scootin Rollin Supine to/from Sit: 2 Sit to/from Stand: 2 Bed to/from Chair: 2 Pt is max assist with supine to sit and sit to stand transfers. Pt needs verbally cued for hand placement and safety. Exercises Seated Therapy Exercises: Ankle pumps, Long arc quads, Hip flexion, Reaching activity Seated Reps: 16 Standing: Sit to Stand Standing Reps: 5 Treatments Pt completes sit to stand exercises to increase functional mobility 30 sec each time, completes reaching and weight shifting/leaning on edge of mat to increase balance and trunk control. Assessment Current Status: Fair Progress Pt is improving with standing and activity tolerance. Pt requires verbal cues for posture and hand placement. Pt requires frequent breaks due to shortness of breath. PT Short Term Goals Short Term Goals Time Frame: Jul 30, 2017 Transfers (B,C,W/C) (FIM): 3 Gait (FIM): 2 Distance (FIM): 4=668-99 ft Gait Assistive Device: FWW Wheelchair Distance: 50' PT Skilled Nursing Goals Mixing Machine Tender Cork Rod Goals PT Skilled Nursing Goals Time Frame: Aug 13, 2017 Transfers (B,C,W/C) (FIM): 6 Sit to Lying (QC): 6 Lying-Sitting on Side/Bed(QC): 6 Sit to Stand (QC): 6 Rollin Roll Left to Right (QC): 6 Chair/Jou-mo-Zrfmr Xfer(QC): 6 Car Transfer (QC): 5 Does the Patient Walk: No and Walking Goal IS indicated Gait (FIM): 6 Gait distance (FIM): 3=150 ft Walk 10 feet (QC): 6 Walk 10ft-Uneven Surface(QC): 6 Walk 50ft with 2 Turns (QC): 6 Walk 150 ft (QC): 6 Gait Level of Assist: 6 Gait Assistive Device: FWW Stairs (FIM): 5 # of Steps: 8 1 Step (curb) (QC): 6 4 Steps (QC): 6 12 Steps (QC): 5 Stairs Level Of Assist: 6 Picking up an Object (QC): 5 PT Plan Problem List Problem List: Activity Tolerance, Functional Strength, Safety, Balance, Gait, Transfer, Bed Mobility, ROM Treatment/Plan Treatment Plan: Continue Plan of Care Treatment Plan: Bed Mobility, Education, Functional Activity Carlos A, Functional Strength, Group Therapy, Gait, Safety, Therapeutic Exercise, Transfers Treatment Duration: Aug 13, 2017 Frequency: At least 5 to 7 days/Wk (IRF) Estimated Hrs Per Day: 1.5 hours per day Patient and/or Family Agrees t: Yes Safety Risks/Education Patient Education: Transfer Techniques, Reviewed Precautions, Correct Positioning, W/C Management, Safety Issues Teaching Recipient: Patient Teaching Methods: Demonstration, Discussion Response to Teaching: Verbalize Understanding, Reinforcement Needed Time/GCodes Time In: 900 Time Out: 1000 Total Billed Treatment Time: 60 Total Billed Treatment 1 visit 30 FA 15 EX 15NM STEPHANE KC PT Jul 29, 2017 10:00
--- NOTE | 2017-07-29 11:01 | Occupational Ther Daily Note ---
OT Current Status-Daily Note Subjective Pt alert, sitting in w/c in room. No c/o pain. Agrees to therapy. Mental Status/Objective Patient Orientation: Person, Place, Time, Situation Functional [place] Measure 0=Not Assessed/NA 4=Minimal Assistance 1=Total Assistance 5=Supervision or Setup 2=Maximal Assistance 6=Modified [place] 3=Moderate Assistance 7=Complete [place] Attachments: Colostomy/Ileostomy, Reynolds Catheter ADL-Treatment Functional [place] Measure 0=Not Assessed/NA 4=Minimal Assistance 1=Total Assistance 5=Supervision or Setup 2=Maximal Assistance 6=Modified [place] 3=Moderate Assistance 7=Complete IndependenceIRFPAI Quality Coding Scale 6 Independent with activity with or without an assistive device 5 Patient requires set up or clean up by helper. Patient completes activity by themselves 4 Supervision or touching assist (CGA). [place] provide cues , steadying assist 3 The helper provides less than half the effort to complete the activity 2 The helper provides more than half the effort to complete the activity 1 Dependent. The helper does all the effort to complete an activity 7 Patient refused to complete or attempt activity 9 The patient did not perform the activity before the current illness or injury 88 Not attempted due to Medical conditions or safety concerns Other Treatment Pt transported outside in /. Pt participated in cone activity to increase B UE AROM, crossing midline, activity tolerance, and dynamic sitting balance for daily functional tasks. While seated, pt picked up cones from one side and placed on table. Pt then picked up cones crossing midline and set on opposite side. Pt completed task to increase FM skills, precision motor control to place in designated area, and AROM. Transported back to room in / and transferred into bed with [place] Mal[place]. Pt tolerated session well. After therapy, pt sitting in bed with call light and phone within reach. All needs met. OT Short Term Goals Short Term Goals Time Frame: Jul 30, 2017 Eating(FIM): 4 Grooming(FIM): 4 Bathing(FIM): 3 Upper Body Dressing(FIM): 3 Lower Body Dressing(FIM): 3 Toileting(FIM): 3 Transfers (B,C,W/C) (FIM): 3 Toilet/Commode Transfer(FIM): 3 Shower Transfer(FIM): 3 Additional Short Term Goals: 1-Demonstrate ADL Tasks, 2-Verbalize Understanding , 3-ImproveStrength/Carlos A 1=Demonstrate adherence to instructed precautions during ADL tasks. 2=Patient will verbalize/demonstrate understanding of assistive devices/ modifications for ADL. 3=Patient will improve strength/tolerance for activity to enable patient to perform ADL's. OT Beer Merchant Goals Beer Merchant Goals Time Frame: Aug 13, 2017 Eating (FIM): 5 Eating (QC): 5 Groomin Oral Hygiene (QC): 5 Bathing(FIM): 5 Shower/Bathe Self (QC): 4 Upper Body Dressing(FIM): 5 Upper Body Dressing (QC): 4 Lower Body Dressing(FIM): 5 Lower Body Dressing (QC): 4 On/Off Footwear (QC): 4 Toileting(FIM): 5 Toileting Hygiene (QC): 4 Transfers (B,C,W/C) (FIM): 5 Toilet/Commode Transfer(FIM): 5 Toilet/Commode Transfer (QC): 4 Tub Transfer(FIM): 5 Shower Transfer(FIM): 4 Additional Goals: 1-Demonstrate ADL Tasks, 2-Verbalize Understanding, 3- ImproveStrength/Carlos A 1=Demonstrate adherence to instructed precautions during ADL tasks. 2=Patient will verbalize/demonstrate understanding of assistive devices/ modifications for ADL. 3=Patient will improve strength/tolerance for activity to enable patient to perform ADL's. OT Education/Plan Discharge Recommendations Plan/Recommendations: Continue POC Treatment Plan/Plan of Care Patient would benefit from OT for education, treatment and training to promote independence in ADL's, mobility, safety and/or upper extremity function for ADL' s. Plan of Care: ADL Retraining, Caregiver Training, Functional Mobility, Group Exercise/Act as Ind, UE Funct Exercise/Act Treatment Duration: Aug 13, 2017 Frequency: At least 5 to 7 days/Wk (IRF) Estimated Hrs Per Day: 1.5 hours per day Agreement: Yes Rehab Potential: Good Time/GCodes Start Time: 10:00 Stop Time: 11:00 Total Time Billed (hr/min): 60 Billed Treatment Time 1 visit, FA 4 (60 minutes) LILY INMAN Jul 29, 2017 11:01
[2017-07-29] MEDS: ENOXAPARIN 40 MG/0.4 ML (LOVENOX) SYR SC SCH (11:21)
--- NOTE | 2017-07-29 11:38 | PM & R (SOAP) Progress Note ---
Subjective Time Seen by Provider: 08:10 Subjective/Events-last exam Patient was seen in her room this AM Patient Max assist for transfers. Objective Exam Last Set of Vital Signs Vital Signs Date Time Temp Pulse Resp B/P (MAP) Pulse Ox O2 Delivery O2 Flow Rate FiO2 07/29/17 08:18 83 18 130/68 100 Room Air 07/29/17 04:00 96.2 Capillary Refill : I&O Intake and Output 07/30/17 00:00 Intake Total 440 ml Output Total 450 ml Balance -10 ml Intake Oral 440 ml Output Urine Total 450 ml General: Alert, Oriented X3, Cooperative, No Acute Distress HEENT: Atraumatic, PERRLA, EOMI, Mucous Memb Moist/[place] Neck: Supple, No JVD, Other (trach plugged) Lungs: Clear to Auscultation Heart: Regular Rate Abdomen: Normal Bowel Sounds, Soft, No Tenderness, Other ( Peg tube site as per above Colostomy functioning) Neuro: Other (2/5/strength both lower extremities Sensation intact Cognition intact ST assessing swallow) Assessment/Plan Assessment 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 consulted re reactive anxiety-Appreciate their note F/U with DR Causey and Nieves prrosangela Family conference held yesterday-See SW note Consult DR García re wound care-See orders. Team Conference latert today-See report for full functional update and POC and ELOS Possible discharge by end of week. TRIP SIERRA MD Jul 29, 2017 11:38
--- NOTE | 2017-07-29 13:42 | Occupational Ther Daily Note ---
OT Current Status-Daily Note Subjective Pt alert, sitting in bed. present. No c/o pain. Agrees to therapy. Mental Status/Objective Patient Orientation: Person, Place, Time, Situation Functional [place] Measure 0=Not Assessed/NA 4=Minimal Assistance 1=Total Assistance 5=Supervision or Setup 2=Maximal Assistance 6=Modified [place] 3=Moderate Assistance 7=Complete [place] Attachments: Colostomy/Ileostomy, Reynolds Catheter ADL-Treatment Functional [place] Measure 0=Not Assessed/NA 4=Minimal Assistance 1=Total Assistance 5=Supervision or Setup 2=Maximal Assistance 6=Modified [place] 3=Moderate Assistance 7=Complete IndependenceIRFPAI Quality Coding Scale 6 Independent with activity with or without an assistive device 5 Patient requires set up or clean up by helper. Patient completes activity by themselves 4 Supervision or touching assist (CGA). [place] provide cues , steadying assist 3 The helper provides less than half the effort to complete the activity 2 The helper provides more than half the effort to complete the activity 1 Dependent. The helper does all the effort to complete an activity 7 Patient refused to complete or attempt activity 9 The patient did not perform the activity before the current illness or injury 88 Not attempted due to Medical conditions or safety concerns Other Treatment Pt initiated leg movement towards EOB, feet lifted up to decrease resistance for pt. Supine to sitting EOB with mod A. Sitting EOB by self with supervision. Transferred from EOB to w/c with max A. Transported to therapy gym in w/c. Pt completed arm bike duration set 5 mins at 5 tan resistance to increase strength, AROM, and activity tolerance requiring 3 rest breaks, B direct marketing analyst good able to hold on. Pt completed activity to work on FM skills by placing pegs in designated area while also crossing midline. Picking up pegs with L hand required trial and error to get good direct marketing analyst, R hand tolerated well. After therapy, pt sitting in w/c in therapy gym, left in care of PT with present. All needs met. OT Short Term Goals Short Term Goals Time Frame: Jul 30, 2017 Eating(FIM): 4 Grooming(FIM): 4 Bathing(FIM): 3 Upper Body Dressing(FIM): 3 Lower Body Dressing(FIM): 3 Toileting(FIM): 3 Transfers (B,C,W/C) (FIM): 3 Toilet/Commode Transfer(FIM): 3 Shower Transfer(FIM): 3 Additional Short Term Goals: 1-Demonstrate ADL Tasks, 2-Verbalize Understanding , 3-ImproveStrength/Carlos A 1=Demonstrate adherence to instructed precautions during ADL tasks. 2=Patient will verbalize/demonstrate understanding of assistive devices/ modifications for ADL. 3=Patient will improve strength/tolerance for activity to enable patient to perform ADL's. OT Transfer Table Operator Helper Goals Skilled Nursing Goals Time Frame: Aug 13, 2017 Eating (FIM): 5 Eating (QC): 5 Groomin Oral Hygiene (QC): 5 Bathing(FIM): 5 Shower/Bathe Self (QC): 4 Upper Body Dressing(FIM): 5 Upper Body Dressing (QC): 4 Lower Body Dressing(FIM): 5 Lower Body Dressing (QC): 4 On/Off Footwear (QC): 4 Toileting(FIM): 5 Toileting Hygiene (QC): 4 Transfers (B,C,W/C) (FIM): 5 Toilet/Commode Transfer(FIM): 5 Toilet/Commode Transfer (QC): 4 Tub Transfer(FIM): 5 Shower Transfer(FIM): 4 Additional Goals: 1-Demonstrate ADL Tasks, 2-Verbalize Understanding, 3- ImproveStrength/Carlos A 1=Demonstrate adherence to instructed precautions during ADL tasks. 2=Patient will verbalize/demonstrate understanding of assistive devices/ modifications for ADL. 3=Patient will improve strength/tolerance for activity to enable patient to perform ADL's. OT Education/Plan Discharge Recommendations Plan/Recommendations: Continue POC Treatment Plan/Plan of Care Patient would benefit from OT for education, treatment and training to promote independence in ADL's, mobility, safety and/or upper extremity function for ADL' s. Plan of Care: ADL Retraining, Caregiver Training, Functional Mobility, Group Exercise/Act as Ind, UE Funct Exercise/Act Treatment Duration: Aug 13, 2017 Frequency: At least 5 to 7 days/Wk (IRF) Estimated Hrs Per Day: 1.5 hours per day Agreement: Yes Rehab Potential: Good Time/GCodes Start Time: 13:00 Stop Time: 13:30 Total Time Billed (hr/min): 30 Billed Treatment Time 1 visit, EX 1 (15 minutes) FA 1 (15 minutes) LILY INMAN Jul 29, 2017 13:42
--- NOTE | 2017-07-29 13:59 | Physical Therapy Daily Note ---
PT Daily Note-Current Subjective Pt was sitting in rehab gym (just finished with OT) prior to tx and agreeable to PT. Pt was sitting up in wheelchair, nurse call, tray, all needs in reach post tx, in room post tx, ready to eat lunch. Pain Numeric Pain Scale: 0-No Pain Location: No Pain Reported Mental Status Patient Orientation: Normal For Age Attachments: Colostomy/Ileostomy, Reynolds Catheter Transfers Functional [place] Measure 0=Not Assessed/NA 4=Minimal Assistance 1=Total Assistance 5=Supervision or Setup 2=Maximal Assistance 6=Modified [place] 3=Moderate Assistance 7=Complete IndependenceIRFPAI Quality Coding Scale 6 Independent with activity with or without an assistive device 5 Patient requires set up or clean up by helper. Patient completes activity by themselves 4 Supervision or touching assist (CGA). [place] provide cues , steadying assist 3 The helper provides less than half the effort to complete the activity 2 The helper provides more than half the effort to complete the activity 1 Dependent. The helper does all the effort to complete an activity 7 Patient refused to complete or attempt activity 9 The patient did not perform the activity before the current illness or injury 88 Not attempted due to Medical conditions or safety concerns Transfers (B, C, W/C) (FIM): 2 Scootin Sit to/from Stand: 2 Pt is able to scoot to edge of chair with CGA with verbal cues for safety. Pt requires max assist with sit to stand and requires verbal cues for hand placement. Gait Training Does the Patient Walk?: No and Walking Goal IS indicated Exercises NuStep Minutes: 10 NuStep Workload: 4 Treatments Pt completes tx on NuStep for functional strengthening and to increase endurance. Assessment Current Status: Fair Progress Improving with stand pivot transfers, requires verbal cueing for hand placement and safety. Requires frequent breaks with shortness of breath. PT Short Term Goals Short Term Goals Time Frame: Jul 30, 2017 Transfers (B,C,W/C) (FIM): 3 Gait (FIM): 2 Distance (FIM): 1=214-92 ft Gait Assistive Device: FWW Wheelchair Distance: 50' PT Group Home Goals Autocad Designer Goals PT Autocad Designer Goals Time Frame: Aug 13, 2017 Transfers (B,C,W/C) (FIM): 6 Sit to Lying (QC): 6 Lying-Sitting on Side/Bed(QC): 6 Sit to Stand (QC): 6 Rollin Roll Left to Right (QC): 6 Chair/Uxr-tk-Ljhmi Xfer(QC): 6 Car Transfer (QC): 5 Does the Patient Walk: No and Walking Goal IS indicated Gait (FIM): 6 Gait distance (FIM): 3=150 ft Walk 10 feet (QC): 6 Walk 10ft-Uneven Surface(QC): 6 Walk 50ft with 2 Turns (QC): 6 Walk 150 ft (QC): 6 Gait Level of Assist: 6 Gait Assistive Device: FWW Stairs (FIM): 5 # of Steps: 8 1 Step (curb) (QC): 6 4 Steps (QC): 6 12 Steps (QC): 5 Stairs Level Of Assist: 6 Picking up an Object (QC): 5 PT Plan Problem List Problem List: Activity Tolerance, Functional Strength, Safety, Balance, Gait, Transfer, Bed Mobility, ROM Treatment/Plan Treatment Plan: Continue Plan of Care Treatment Plan: Bed Mobility, Education, Functional Activity Carlos A, Functional Strength, Group Therapy, Gait, Safety, Therapeutic Exercise, Transfers Treatment Duration: Aug 13, 2017 Frequency: At least 5 to 7 days/Wk (IRF) Estimated Hrs Per Day: 1.5 hours per day Patient and/or Family Agrees t: Yes Safety Risks/Education Patient Education: Transfer Techniques, Reviewed Precautions, Correct Positioning, W/C Management, Safety Issues Teaching Recipient: Patient Teaching Methods: Demonstration, Discussion Response to Teaching: Verbalize Understanding, Reinforcement Needed Time/GCodes Time In: 1330 Time Out: 1400 Total Billed Treatment Time: 30 Total Billed Treatment 1 visit EX 10 FA 20 STEPHANE KC PT Jul 29, 2017 13:59
[2017-07-29 17:12] VITALS: BP 132/73
--- NOTE | 2017-07-29 20:15 | Wound Care Progress Note ---
Subjective Subjective Subjective/Events-last exam 61 year old female with non-healing LUQ abdominal wound at site of recently removed PEG tube. Currently treated with silver alginate. No sign of cellulitis. PMH: Hypertension, arthritis, previous ablation for arrhythmia, sigmoid resection for perforation with sepsis and prolonged ventilation. FH: non-contributory. Review of Systems Date Seen by Provider: Jul 28, 2017 Time Seen by Provider: 19:15 General: No Chills Pulmonary: No Dyspnea Cardiovascular: No: Chest Pain Objective Exam Last Set of Vital Signs Vital Signs Date Time Temp Pulse Resp B/P (MAP) Pulse Ox O2 Delivery O2 Flow Rate FiO2 07/29/17 17:12 98.0 88 20 132/73 100 Room Air Capillary Refill : I&O Intake and Output 07/30/17 00:00 Intake Total 1415 ml Output Total 2000 ml Balance -585 ml Intake Oral 1415 ml Output Urine Total 1300 ml Stool Total 700 ml General: Alert, No Acute Distress Lungs: Normal Air Movement Skin: Other (LUQ abdomen -- 1.0 x 0.9 x 1.7 cm; 100% slough, mod. s.s. drainage.) Assessment/Plan Assessment/Plan Assessment/Plan 1. LUQ abdominal wound. 2. Open surgical site. 3. Debility. Plan: We will try Santyl for debridement. PEGGY JIMENEZ MD Jul 29, 2017 20:15
[2017-07-29] MEDS: POLYETHYLENE GLYCOL 17 GM (MIRALAX) PACK PO SCH (21:08)
[2017-07-29] MEDS: COLLAGENASE 30 GM (SANTYL) TUBE TP SCH (21:08)
[2017-07-30 05:29] VITALS: BP 143/66
[2017-07-30] MEDS: LACTOBACILLUS Acidoph/Bulgar (LACTINEX/FLORANEX) TAB PO SCH ×4 (05:29→20:35)
[2017-07-30] MEDS: predniSONE 5 MG TAB PO SCH (06:13)
[2017-07-30] MEDS: LEVOTHYROXINE 100 MCG (LEVOTHROID) TAB PO SCH (06:13)
[2017-07-30] MEDS: PANTOPRAZOLE 20 MG TABLET (PROTONIX) PO SCH (06:13)
[2017-07-30] MEDS: PROPAFENONE 150 MG (RYTHMOL) TABLET PO SCH ×3 (06:13→20:34)
[2017-07-30] MEDS: ASPIRIN E.C. 81 MG (ECOTRIN) TAB PO SCH (08:05)
[2017-07-30] MEDS: SENNA W/DOCUSATE (SENOKOT S) TABLET PO SCH ×2 (08:05→20:33)
[2017-07-30] MEDS: buPROPion SR 150 MG (WELLBUTRIN SR) TAB PO SCH (08:05)
[2017-07-30] MEDS: ALPRAZolam 0.5 MG (XANAX) TAB PO SCH ×3 (08:05→20:33)
[2017-07-30] MEDS: risperiDONE 0.25 MG (RisperDAL) TAB PO SCH (08:05)
[2017-07-30] MEDS: LOSARTAN 50 MG (COZAAR) TAB PO SCH (08:06)
[2017-07-30] MEDS: LACTULOSE SYRUP 10GM/15ML (ENULOSE) 30ML UDC PO SCH ×2 (08:06→20:32)
--- NOTE | 2017-07-30 10:02 | Physical Therapy Daily Note ---
PT Daily Note-Current Subjective Pt was lying in bed prior to tx and agreeable to PT. Pt was sitting in wheelchair (has OT next) with nurse call, radha, all needs in reach post tx. Pain Numeric Pain Scale: 0-No Pain Location: No Pain Reported Mental Status Patient Orientation: Normal For Age Attachments: Colostomy/Ileostomy, Reynolds Catheter Transfers Functional [place] Measure 0=Not Assessed/NA 4=Minimal Assistance 1=Total Assistance 5=Supervision or Setup 2=Maximal Assistance 6=Modified [place] 3=Moderate Assistance 7=Complete IndependenceIRFPAI Quality Coding Scale 6 Independent with activity with or without an assistive device 5 Patient requires set up or clean up by helper. Patient completes activity by themselves 4 Supervision or touching assist (CGA). [place] provide cues , steadying assist 3 The helper provides less than half the effort to complete the activity 2 The helper provides more than half the effort to complete the activity 1 Dependent. The helper does all the effort to complete an activity 7 Patient refused to complete or attempt activity 9 The patient did not perform the activity before the current illness or injury 88 Not attempted due to Medical conditions or safety concerns Transfers (B, C, W/C) (FIM): 2 Scootin Supine to/from Sit: 2 Sit to/from Stand: 2 Worked on sup to sit EOB with patient moving her legs to the edge of bed with min asssit and then with skilled cues 75% of the time and mod assist, she was able to push and pull with her UE to sit up. Unsteady with initial sitting Eob and reports of dizziness which passed in about 30 seconds. Pt is able to scoot in chair with SBA for safety. Pt requires max assist sit to stand. Pt requires verbal cues for hand placement. Gait Training Does the Patient Walk?: No and Walking Goal IS indicated Wheelchair Training Does the Pt Use a Wheelchair?: Yes Wheelchair (FIM): 2 Wheelchair Distance: 1=up to 49 ft Distance: 30' Wheelchair Level of Assist: 4 Type of Wheelchair: Manual Pt propels wheelchair 30' with min assist, requires help with turning. Exercises Seated Therapy Exercises: Ankle pumps, Long arc quads, Hip flexion, Hip abd/add , Glut set Seated Reps: 20 (to increase strength for functional standing ad transfers.) Standing: Sit to Stand Standing Reps: 5 Treatments Pt completes 30 seconds of standing with max support in parallel bars before she fatigues and legs "give out". Pt also completes seated exercises to increase functional LE strength. sit to palliative care coordinator // bars with max asssist and skilled cues for hand placement; once standing, requires assist to maintain standing and skilled cues for hip extension and upright posture. Assessment Current Status: Good Progress Pt is becoming more independent with bed mobility. Pt is also improving with transfers, requires verbal cues for hand placement. Pt improving with standing, has more trunk control. Pt requires verbal cues to avoid leaning hunched over and to bring bottom forward with standing. PT Short Term Goals Short Term Goals Time Frame: Jul 30, 2017 Transfers (B,C,W/C) (FIM): 3 Gait (FIM): 2 Distance (FIM): 2=200-47 ft Gait Assistive Device: FWW Wheelchair Distance: 50' PT [facility] Goals Assistant Professor Of Biology Goals PT Assistant Professor Of Biology Goals Time Frame: Aug 13, 2017 Transfers (B,C,W/C) (FIM): 6 Sit to Lying (QC): 6 Lying-Sitting on Side/Bed(QC): 6 Sit to Stand (QC): 6 Rollin Roll Left to Right (QC): 6 Chair/Dnt-uv-Pdyum Xfer(QC): 6 Car Transfer (QC): 5 Does the Patient Walk: No and Walking Goal IS indicated Gait (FIM): 6 Gait distance (FIM): 3=150 ft Walk 10 feet (QC): 6 Walk 10ft-Uneven Surface(QC): 6 Walk 50ft with 2 Turns (QC): 6 Walk 150 ft (QC): 6 Gait Level of Assist: 6 Gait Assistive Device: FWW Stairs (FIM): 5 # of Steps: 8 1 Step (curb) (QC): 6 4 Steps (QC): 6 12 Steps (QC): 5 Stairs Level Of Assist: 6 Picking up an Object (QC): 5 PT Plan Problem List Problem List: Activity Tolerance, Functional Strength, Safety, Balance, Gait, Transfer, Bed Mobility, ROM Treatment/Plan Treatment Plan: Continue Plan of Care Treatment Plan: Bed Mobility, Education, Functional Activity Carlos A, Functional Strength, Group Therapy, Gait, Safety, Therapeutic Exercise, Transfers Treatment Duration: Aug 13, 2017 Frequency: At least 5 to 7 days/Wk (IRF) Estimated Hrs Per Day: 1.5 hours per day Patient and/or Family Agrees t: Yes Safety Risks/Education Patient Education: Transfer Techniques, Reviewed Precautions, Correct Positioning, W/C Management, Safety Issues Teaching Recipient: Patient Teaching Methods: Demonstration, Discussion Response to Teaching: Verbalize Understanding, Reinforcement Needed Time/GCodes Time In: 900 Time Out: 1000 Total Billed Treatment Time: 60 Total Billed Treatment 1 visit EX 30 FA 15 [facility] 15 LILY MATTHEWS PT Jul 30, 2017 10:02
[2017-07-30] MEDS: COLLAGENASE 30 GM (SANTYL) TUBE TP SCH ×2 (10:43→20:34)
[2017-07-30] MEDS: ENOXAPARIN 40 MG/0.4 ML (LOVENOX) SYR SC SCH (10:43)
--- NOTE | 2017-07-30 11:05 | Occupational Ther Daily Note ---
OT Current Status-Daily Note Subjective Pt alert, sitting in w/c. Agrees to therapy, would like a shower. Mental Status/Objective Patient Orientation: Person, Place, Time, Situation Functional [place] Measure 0=Not Assessed/NA 4=Minimal Assistance 1=Total Assistance 5=Supervision or Setup 2=Maximal Assistance 6=Modified [place] 3=Moderate Assistance 7=Complete [place] Attachments: Colostomy/Ileostomy, Reynolds Catheter ADL-Treatment After shower, dressing, and grooming, pt transferred from w/c to recliner with max A. After therapy, pt sitting in recliner with phone and call light within reach. All needs met in room. Functional [place] Measure 0=Not Assessed/NA 4=Minimal Assistance 1=Total Assistance 5=Supervision or Setup 2=Maximal Assistance 6=Modified [place] 3=Moderate Assistance 7=Complete IndependenceIRFPAI Quality Coding Scale 6 Independent with activity with or without an assistive device 5 Patient requires set up or clean up by helper. Patient completes activity by themselves 4 Supervision or touching assist (CGA). [place] provide cues , steadying assist 3 The helper provides less than half the effort to complete the activity 2 The helper provides more than half the effort to complete the activity 1 Dependent. The helper does all the effort to complete an activity 7 Patient refused to complete or attempt activity 9 The patient did not perform the activity before the current illness or injury 88 Not attempted due to Medical conditions or safety concerns Grooming (FIM): 4 (Pt able to wash face by self in shower. While seated, pt able to complete brushing teeth by self. Able to comb hair with min A for back of head due to decreased ROM. ) Oral Hygiene (QC): 5 (While seated, pt able to complete brushing teeth by self. ) Bathing (FIM): 3 (Pt requires assistance washing/drying lower legs, feet, back , and buttocks. Able to wash all other areas by self. Using grab bars, handheld shower, and shower bench. ) Bathing Location: L Arm, R Arm, L Upper Leg, R Upper Leg, Chest, Abdomen, Perineal Area Upper Body (FIM): 3 (Pt able to thread arms through sleeves and pull up arms. Requires assitance to pull socket assembler shoulders and head and down body. ) Lower Body Dressing (FIM): 2 (Requires max A to dress lower body and don/doff socks and shoes. Max A required to stand while other pulls up pants. Able to slightly lift feet off ground when threading feet through pant legs. ) Transfers (B, C, W/C) (FIM): 2 (Pt requires max A for stand pivot transfer. ) Shower Transfer(FIM): 2 (Pt transferred from w/c to shower bench with max A.) Pt progressed from sitting supported in shower chair to sitting unsupported with SBA on shower bench to bathe. OT Short Term Goals Short Term Goals Time Frame: Jul 30, 2017 Eating(FIM): 4 Grooming(FIM): 4 Bathing(FIM): 3 Upper Body Dressing(FIM): 3 Lower Body Dressing(FIM): 3 Toileting(FIM): 3 Transfers (B,C,W/C) (FIM): 3 Toilet/Commode Transfer(FIM): 3 Shower Transfer(FIM): 3 Additional Short Term Goals: 1-Demonstrate ADL Tasks, 2-Verbalize Understanding , 3-ImproveStrength/Carlos A 1=Demonstrate adherence to instructed precautions during ADL tasks. 2=Patient will verbalize/demonstrate understanding of assistive devices/ modifications for ADL. 3=Patient will improve strength/tolerance for activity to enable patient to perform ADL's. OT Penitentiary Goals Penitentiary Goals Time Frame: Aug 13, 2017 Eating (FIM): 5 Eating (QC): 5 Groomin Oral Hygiene (QC): 5 Bathing(FIM): 5 Shower/Bathe Self (QC): 4 Upper Body Dressing(FIM): 5 Upper Body Dressing (QC): 4 Lower Body Dressing(FIM): 5 Lower Body Dressing (QC): 4 On/Off Footwear (QC): 4 Toileting(FIM): 5 Toileting Hygiene (QC): 4 Transfers (B,C,W/C) (FIM): 5 Toilet/Commode Transfer(FIM): 5 Toilet/Commode Transfer (QC): 4 Tub Transfer(FIM): 5 Shower Transfer(FIM): 4 Additional Goals: 1-Demonstrate ADL Tasks, 2-Verbalize Understanding, 3- ImproveStrength/Carlos A 1=Demonstrate adherence to instructed precautions during ADL tasks. 2=Patient will verbalize/demonstrate understanding of assistive devices/ modifications for ADL. 3=Patient will improve strength/tolerance for activity to enable patient to perform ADL's. OT Education/Plan Discharge Recommendations Plan/Recommendations: Continue POC Treatment Plan/Plan of Care Patient would benefit from OT for education, treatment and training to promote independence in ADL's, mobility, safety and/or upper extremity function for ADL' s. Plan of Care: ADL Retraining, Caregiver Training, Functional Mobility, Group Exercise/Act as Ind, UE Funct Exercise/Act Treatment Duration: Aug 13, 2017 Frequency: At least 5 to 7 days/Wk (IRF) Estimated Hrs Per Day: 1.5 hours per day Agreement: Yes Rehab Potential: Good Time/GCodes Start Time: 10:00 Stop Time: 11:00 Total Time Billed (hr/min): 60 Billed Treatment Time 1 visit, ADL 4 (60 minutes) LILY INMAN Jul 30, 2017 11:05
--- NOTE | 2017-07-30 13:30 | PM & R (SOAP) Progress Note ---
Subjective Time Seen by Provider: 08:00 Subjective/Events-last exam Patient was seen in her room this AM Patient max assist for transfers Discussed case with DR García last evening Appreciate his note and order Discussed case with RN this AM Eating and sleeping better Objective Exam Last Set of Vital Signs Vital Signs Date Time Temp Pulse Resp B/P (MAP) Pulse Ox O2 Delivery O2 Flow Rate FiO2 07/30/17 08:01 Room Air 07/30/17 05:29 98.4 88 18 143/66 99 Capillary Refill : I&O Intake and Output 07/31/17 00:00 Intake Total 600 ml Output Total 750 ml Balance -150 ml Intake Oral 600 ml Output Urine Total 600 ml Stool Total 150 ml General: Alert, Oriented X3, Cooperative, No Acute Distress HEENT: Atraumatic, PERRLA, EOMI, Mucous Memb Moist/[place] Neck: Supple, No JVD, Other (trach plugged) Lungs: Clear to Auscultation Heart: Regular Rate Abdomen: Normal Bowel Sounds, Soft, No Tenderness, Other ( Peg tube site as per above Colostomy functioning) Skin: Other (LUQ abdomen -- 1.0 x 0.9 x 1.7 cm; 100% slough, mod. s.s. drainage.) Neuro: Other (2/5/strength both lower extremities Sensation intact Cognition intact ST assessing swallow) Assessment/Plan Assessment Crtical illness myopathy S/P trach now decannulkated DR Causey S/P Peg tube removal with area of breakdown-DR García has addressed S/P colostomy for perforated bowel DR Ng HTN Chronic constipation Elevated LFTS Hypercalcemia Hypomagnesemia Urinary retention -Reynolds reinserted and to remain in for now DVT prophylaxis Heparin switched to Lovenox SUBCUT Plan Continue PT/OT/ST/Wound care/Reynolds catheter care F/U with hospitalist in lieu of pcp and DR Ng re abnormal labs [place] [facility] consulted re reactive anxiety-Appreciate their note F/U with DR Causey and Nieves prrosangela Family conference held 07-28-17-See SW note Consult DR García re wound care-See orders.-done appreciate his assistance Team Conference held yesterday-See report for full functional update and POC and ELOS . TRIP SIERRA MD Jul 30, 2017 13:30
--- NOTE | 2017-07-30 13:41 | Occupational Ther Daily Note ---
OT Current Status-Daily Note Subjective Pt sleeping in bed. Woken up, agrees to therapy. No c/o pain. Mental Status/Objective Functional [place] Measure 0=Not Assessed/NA 4=Minimal Assistance 1=Total Assistance 5=Supervision or Setup 2=Maximal Assistance 6=Modified [place] 3=Moderate Assistance 7=Complete [place] ADL-Treatment Functional [place] Measure 0=Not Assessed/NA 4=Minimal Assistance 1=Total Assistance 5=Supervision or Setup 2=Maximal Assistance 6=Modified [place] 3=Moderate Assistance 7=Complete IndependenceIRFPAI Quality Coding Scale 6 Independent with activity with or without an assistive device 5 Patient requires set up or clean up by helper. Patient completes activity by themselves 4 Supervision or touching assist (CGA). [place] provide cues , steadying assist 3 The helper provides less than half the effort to complete the activity 2 The helper provides more than half the effort to complete the activity 1 Dependent. The helper does all the effort to complete an activity 7 Patient refused to complete or attempt activity 9 The patient did not perform the activity before the current illness or injury 88 Not attempted due to Medical conditions or safety concerns Other Treatment Pt scooted feet to edge of bed with feet lifted to reduce resistance. Supine to sit EOB with mod A. Pt transferred from EOB to w/c with max A. Transported to therapy gym in w/c. Pt completed 3 activities to increase dynamic sitting balance, crossing midline, and B shoulder AROM. Pt leaned forward to pick up operator cones from stool handed up with shoulder flexion approximately 130 degrees to OTAS. Pt repeated activity while leaning to side and grabbing with same hand and also leaning to side and grabbing with opposite hand. Pt tolerated session well, taking rest breaks in between. After therapy pt sitting in w/c in therapy gym, left in care of PT. All needs met. OT Short Term Goals Short Term Goals Time Frame: Jul 30, 2017 Eating(FIM): 4 Grooming(FIM): 4 Bathing(FIM): 3 Upper Body Dressing(FIM): 3 Lower Body Dressing(FIM): 3 Toileting(FIM): 3 Transfers (B,C,W/C) (FIM): 3 Toilet/Commode Transfer(FIM): 3 Shower Transfer(FIM): 3 Additional Short Term Goals: 1-Demonstrate ADL Tasks, 2-Verbalize Understanding , 3-ImproveStrength/Carlos A 1=Demonstrate adherence to instructed precautions during ADL tasks. 2=Patient will verbalize/demonstrate understanding of assistive devices/ modifications for ADL. 3=Patient will improve strength/tolerance for activity to enable patient to perform ADL's. OT Shelter Goals Shelter Goals Time Frame: Aug 13, 2017 Eating (FIM): 5 Eating (QC): 5 Groomin Oral Hygiene (QC): 5 Bathing(FIM): 5 Shower/Bathe Self (QC): 4 Upper Body Dressing(FIM): 5 Upper Body Dressing (QC): 4 Lower Body Dressing(FIM): 5 Lower Body Dressing (QC): 4 On/Off Footwear (QC): 4 Toileting(FIM): 5 Toileting Hygiene (QC): 4 Transfers (B,C,W/C) (FIM): 5 Toilet/Commode Transfer(FIM): 5 Toilet/Commode Transfer (QC): 4 Tub Transfer(FIM): 5 Shower Transfer(FIM): 4 Additional Goals: 1-Demonstrate ADL Tasks, 2-Verbalize Understanding, 3- ImproveStrength/Carlos A 1=Demonstrate adherence to instructed precautions during ADL tasks. 2=Patient will verbalize/demonstrate understanding of assistive devices/ modifications for ADL. 3=Patient will improve strength/tolerance for activity to enable patient to perform ADL's. OT Education/Plan Discharge Recommendations Plan/Recommendations: Continue POC Treatment Plan/Plan of Care Patient would benefit from OT for education, treatment and training to promote independence in ADL's, mobility, safety and/or upper extremity function for ADL' s. Plan of Care: ADL Retraining, Caregiver Training, Functional Mobility, Group Exercise/Act as Ind, UE Funct Exercise/Act Treatment Duration: Aug 13, 2017 Frequency: At least 5 to 7 days/Wk (IRF) Estimated Hrs Per Day: 1.5 hours per day Agreement: Yes Rehab Potential: Good Time/GCodes Start Time: 13:00 Stop Time: 13:30 Total Time Billed (hr/min): 30 Billed Treatment Time 1 visit, FA 2 (30 minutes) LILY INMAN Jul 30, 2017 13:41
--- NOTE | 2017-07-30 14:07 | Physical Therapy Daily Note ---
PT Daily Note-Current Subjective Pt was sitting in rehab gym (just finished with OT) prior to tx and agreeable to PT. Pt was lying in bed with nurse call, phone, tray, all needs in reach, family in room. Pain Numeric Pain Scale: 0-No Pain Location: No Pain Reported Mental Status Patient Orientation: Normal For Age Attachments: Colostomy/Ileostomy, Reynolds Catheter Transfers Functional [place] Measure 0=Not Assessed/NA 4=Minimal Assistance 1=Total Assistance 5=Supervision or Setup 2=Maximal Assistance 6=Modified [place] 3=Moderate Assistance 7=Complete IndependenceIRFPAI Quality Coding Scale 6 Independent with activity with or without an assistive device 5 Patient requires set up or clean up by helper. Patient completes activity by themselves 4 Supervision or touching assist (CGA). [place] provide cues , steadying assist 3 The helper provides less than half the effort to complete the activity 2 The helper provides more than half the effort to complete the activity 1 Dependent. The helper does all the effort to complete an activity 7 Patient refused to complete or attempt activity 9 The patient did not perform the activity before the current illness or injury 88 Not attempted due to Medical conditions or safety concerns Transfers (B, C, W/C) (FIM): 1 Scootin Rollin Sit to/from Stand: 2 Bed to/from Chair: 2 Pt is total assist in scooting to HOB, max assist with rolling, max assist with sit to stand, requires verbal cues for hand placement with all bed mobility and transfers. Gait Training Does the Patient Walk?: No and Walking Goal IS indicated Exercises NuStep Minutes: 10 NuStep Workload: 5 Treatments Pt completes tx on NuStep to increase functional LE strengthening and endurance training. Assessment Current Status: Good Progress Pt is improving with bed mobility and transfers. Pt requires verbal cues for hand placement and safety with all mobility. PT Short Term Goals Short Term Goals Time Frame: Jul 30, 2017 Transfers (B,C,W/C) (FIM): 3 Gait (FIM): 2 Distance (FIM): 6=686-40 ft Gait Assistive Device: FWW Wheelchair Distance: 30' PT [employer] Supervisor Goals Snf Goals PT Snf Goals Time Frame: Aug 13, 2017 Transfers (B,C,W/C) (FIM): 6 Sit to Lying (QC): 6 Lying-Sitting on Side/Bed(QC): 6 Sit to Stand (QC): 6 Rollin Roll Left to Right (QC): 6 Chair/Mmy-hn-Kaymh Xfer(QC): 6 Car Transfer (QC): 5 Does the Patient Walk: No and Walking Goal IS indicated Gait (FIM): 6 Gait distance (FIM): 3=150 ft Walk 10 feet (QC): 6 Walk 10ft-Uneven Surface(QC): 6 Walk 50ft with 2 Turns (QC): 6 Walk 150 ft (QC): 6 Gait Level of Assist: 6 Gait Assistive Device: FWW Stairs (FIM): 5 # of Steps: 8 1 Step (curb) (QC): 6 4 Steps (QC): 6 12 Steps (QC): 5 Stairs Level Of Assist: 6 Picking up an Object (QC): 5 PT Plan Problem List Problem List: Activity Tolerance, Functional Strength, Safety, Balance, Gait, Transfer, Bed Mobility, ROM Treatment/Plan Treatment Plan: Continue Plan of Care Treatment Plan: Bed Mobility, Education, Functional Activity Carlos A, Functional Strength, Group Therapy, Gait, Safety, Therapeutic Exercise, Transfers Treatment Duration: Aug 13, 2017 Frequency: At least 5 to 7 days/Wk (IRF) Estimated Hrs Per Day: 1.5 hours per day Patient and/or Family Agrees t: Yes Safety Risks/Education Patient Education: Transfer Techniques, Reviewed Precautions, Correct Positioning, W/C Management, Safety Issues Teaching Recipient: Patient Teaching Methods: Demonstration, Discussion Response to Teaching: Verbalize Understanding, Reinforcement Needed Time/GCodes Time In: 1330 Time Out: 1400 Total Billed Treatment Time: 30 Total Billed Treatment 1 visit FA 20 EX 10 LILY MATTHEWS PT Jul 30, 2017 14:07
[2017-07-30 17:15] VITALS: BP 135/70
[2017-07-30] MEDS: POLYETHYLENE GLYCOL 17 GM (MIRALAX) PACK PO SCH (20:34)
[2017-07-31 05:00] VITALS: BP 146/67
[2017-07-31] MEDS: PANTOPRAZOLE 20 MG TABLET (PROTONIX) PO SCH (06:12)
[2017-07-31] MEDS: predniSONE 5 MG TAB PO SCH (06:12)
[2017-07-31] MEDS: PROPAFENONE 150 MG (RYTHMOL) TABLET PO SCH ×3 (06:12→21:15)
[2017-07-31] MEDS: LEVOTHYROXINE 100 MCG (LEVOTHROID) TAB PO SCH (06:12)
[2017-07-31] MEDS: buPROPion SR 150 MG (WELLBUTRIN SR) TAB PO SCH (07:33)
[2017-07-31] MEDS: ALPRAZolam 0.5 MG (XANAX) TAB PO SCH ×3 (07:40→21:13)
[2017-07-31] MEDS: SENNA W/DOCUSATE (SENOKOT S) TABLET PO SCH ×2 (07:40→21:13)
[2017-07-31] MEDS: LOSARTAN 50 MG (COZAAR) TAB PO SCH (07:40)
[2017-07-31] MEDS: ASPIRIN E.C. 81 MG (ECOTRIN) TAB PO SCH (07:40)
[2017-07-31] MEDS: risperiDONE 0.25 MG (RisperDAL) TAB PO SCH (07:40)
[2017-07-31] MEDS: COLLAGENASE 30 GM (SANTYL) TUBE TP SCH ×2 (07:41→21:14)
--- NOTE | 2017-07-31 08:25 | PM & R (SOAP) Progress Note ---
Subjective Time Seen by Provider: 07:55 Subjective/Events-last exam Patient was seen in her room this AM Patient Max assist for transfers Eating better sleeping OKPatient request pass for this weekend with family Objective Exam Last Set of Vital Signs Vital Signs Date Time Temp Pulse Resp B/P (MAP) Pulse Ox O2 Delivery O2 Flow Rate FiO2 07/31/17 05:00 97.9 77 20 146/67 99 Room Air Capillary Refill : I&O Intake and Output 07/31/17 23:59 Intake Total 250 ml Output Total 425 ml Balance -175 ml Intake Oral 250 ml Output Urine Total 400 ml Stool Total 25 ml General: Alert, No Acute Distress HEENT: Atraumatic, PERRLA, EOMI, Mucous Memb Moist/[place] Neck: Supple, No JVD, Other (trach plugged) Lungs: Normal Air Movement Heart: Regular Rate Abdomen: Normal Bowel Sounds, Soft, No Tenderness, Other ( Peg tube site as per above Colostomy functioning) Skin: Other (LUQ abdomen -- 1.0 x 0.9 x 1.7 cm; 100% slough, mod. s.s. drainage.) Neuro: Other (2/5/strength both lower extremities Sensation intact Cognition intact ST assessing swallow) Assessment/Plan Assessment Crtical illness myopathy S/P trach now decannulkated DR Causey S/P Peg tube removal with area of breakdown-DR García has addressed S/P colostomy for perforated bowel DR Ng HTN Chronic constipation Elevated LFTS Hypercalcemia Hypomagnesemia Urinary retention -Reynolds reinserted and to remain in for now DVT prophylaxis Heparin switched to Lovenox SUBCUT Plan Continue PT/OT/ST/Wound care/Reynolds catheter care F/U with hospitalist in lieu of pcp and DR Ng re abnormal labs [place] [facility] consulted re reactive anxiety-Appreciate their note F/U with DR Causey and Nieves kenney Family conference held 07-28-17-See SW note Consult DR García re wound care-See orders.-done appreciate his assistance Team Conference held 07-29-17-See report for full functional update and POC and ELOS Day Pass for this weekend -see orders. . TRIP SIERRA MD Jul 31, 2017 08:25
[2017-07-31] MEDS: LACTULOSE SYRUP 10GM/15ML (ENULOSE) 30ML UDC PO SCH ×2 (09:00→21:13)
--- NOTE | 2017-07-31 10:00 | Occupational Ther Daily Note ---
OT Current Status-Daily Note Subjective Pt alert, sitting in bed. No c/o pain. Agrees to therapy. Mental Status/Objective Patient Orientation: Person, Place, Time, Situation Functional [place] Measure 0=Not Assessed/NA 4=Minimal Assistance 1=Total Assistance 5=Supervision or Setup 2=Maximal Assistance 6=Modified [place] 3=Moderate Assistance 7=Complete [place] Attachments: Colostomy/Ileostomy, Reynolds Catheter ADL-Treatment Pt completed dressing in bed. Functional [place] Measure 0=Not Assessed/NA 4=Minimal Assistance 1=Total Assistance 5=Supervision or Setup 2=Maximal Assistance 6=Modified [place] 3=Moderate Assistance 7=Complete IndependenceIRFPAI Quality Coding Scale 6 Independent with activity with or without an assistive device 5 Patient requires set up or clean up by helper. Patient completes activity by themselves 4 Supervision or touching assist (CGA). [place] provide cues , steadying assist 3 The helper provides less than half the effort to complete the activity 2 The helper provides more than half the effort to complete the activity 1 Dependent. The helper does all the effort to complete an activity 7 Patient refused to complete or attempt activity 9 The patient did not perform the activity before the current illness or injury 88 Not attempted due to Medical conditions or safety concerns Grooming (FIM): 6 (Pt able to sit in w/c at sink and brush teeth. Pt progressed to combing hair on whole head by self. ) Oral Hygiene (QC): 6 (Pt able to sit in w/c at sink and brush teeth. Pt progressed to combing hair on whole head by self. ) Upper Body (FIM): 3 (Pt was able to unbutton 3 buttons on pajama top. Pt able to thread arms into sleeves and progressed to pulling up to head, needing help to bone char puller back of head. Pt pulls shirt down body in front, needing assitance for back of shirt. ) Lower Body Dressing (FIM): 2 (Pt requires max A to thread feet in pantholes. Pt able to reach across body to grasp bedrail, assist to bend knees and roll to each side in order for therapist to pull pants over hips. ) Transfers (B, C, W/C) (FIM): 2 (Pt requires max A for stand pivot transfer. ) Other Treatment Pt transported to therapy gym in w/c. Completes arm bike duration set 10 minutes on 10 tan resistance, requiring several rest breaks. Pt then completed activity to work on FM skills by picking up small pieces and placing into designated area. R hand tolerated well, L requiring trial and error to picker and packer/place pieces. After therapy, pt sitting in w/c in gym left in care of PT. All needs met. OT Short Term Goals Short Term Goals Time Frame: Jul 30, 2017 Eating(FIM): 4 Grooming(FIM): 4 Bathing(FIM): 3 Upper Body Dressing(FIM): 3 Lower Body Dressing(FIM): 3 Toileting(FIM): 3 Transfers (B,C,W/C) (FIM): 3 Toilet/Commode Transfer(FIM): 3 Shower Transfer(FIM): 3 Additional Short Term Goals: 1-Demonstrate ADL Tasks, 2-Verbalize Understanding , 3-ImproveStrength/Carlos A 1=Demonstrate adherence to instructed precautions during ADL tasks. 2=Patient will verbalize/demonstrate understanding of assistive devices/ modifications for ADL. 3=Patient will improve strength/tolerance for activity to enable patient to perform ADL's. OT Underwater Welder Goals Underwater Welder Goals Time Frame: Aug 13, 2017 Eating (FIM): 5 Eating (QC): 5 Groomin Oral Hygiene (QC): 5 Bathing(FIM): 5 Shower/Bathe Self (QC): 4 Upper Body Dressing(FIM): 5 Upper Body Dressing (QC): 4 Lower Body Dressing(FIM): 5 Lower Body Dressing (QC): 4 On/Off Footwear (QC): 4 Toileting(FIM): 5 Toileting Hygiene (QC): 4 Transfers (B,C,W/C) (FIM): 5 Toilet/Commode Transfer(FIM): 5 Toilet/Commode Transfer (QC): 4 Tub Transfer(FIM): 5 Shower Transfer(FIM): 4 Additional Goals: 1-Demonstrate ADL Tasks, 2-Verbalize Understanding, 3- ImproveStrength/Carlos A 1=Demonstrate adherence to instructed precautions during ADL tasks. 2=Patient will verbalize/demonstrate understanding of assistive devices/ modifications for ADL. 3=Patient will improve strength/tolerance for activity to enable patient to perform ADL's. OT Education/Plan Discharge Recommendations Plan/Recommendations: Continue POC Treatment Plan/Plan of Care Patient would benefit from OT for education, treatment and training to promote independence in ADL's, mobility, safety and/or upper extremity function for ADL' s. Plan of Care: ADL Retraining, Caregiver Training, Functional Mobility, Group Exercise/Act as Ind, UE Funct Exercise/Act Treatment Duration: Aug 13, 2017 Frequency: At least 5 to 7 days/Wk (IRF) Estimated Hrs Per Day: 1.5 hours per day Agreement: Yes Rehab Potential: Good Time/GCodes Start Time: 09:00 Stop Time: 10:00 Total Time Billed (hr/min): 60 Billed Treatment Time 1 visit, ADL 2 (30 minutes) EX 1 (15 minutes) FA 1 (15 minutes) LILY INMAN Jul 31, 2017 10:00
[2017-07-31] MEDS: ENOXAPARIN 40 MG/0.4 ML (LOVENOX) SYR SC SCH (10:23)
--- NOTE | 2017-07-31 10:59 | Physical Therapy Daily Note ---
PT Daily Note-Current Subjective Pt was sitting in wheelchair in rehab gym (just finished with OT) and agreeable to PT. Pt reports no pain. Pt is sitting in recliner with nurse call, tray, phone, all needs in reach post tx. Pain Numeric Pain Scale: 0-No Pain Location: No Pain Reported Mental Status Patient Orientation: Normal For Age Attachments: Colostomy/Ileostomy, Reynolds Catheter Transfers Functional [place] Measure 0=Not Assessed/NA 4=Minimal Assistance 1=Total Assistance 5=Supervision or Setup 2=Maximal Assistance 6=Modified [place] 3=Moderate Assistance 7=Complete IndependenceIRFPAI Quality Coding Scale 6 Independent with activity with or without an assistive device 5 Patient requires set up or clean up by helper. Patient completes activity by themselves 4 Supervision or touching assist (CGA). [place] provide cues , steadying assist 3 The helper provides less than half the effort to complete the activity 2 The helper provides more than half the effort to complete the activity 1 Dependent. The helper does all the effort to complete an activity 7 Patient refused to complete or attempt activity 9 The patient did not perform the activity before the current illness or injury 88 Not attempted due to Medical conditions or safety concerns Transfers (B, C, W/C) (FIM): 2 Scootin Sit to/from Stand: 2 Pt scoots in chair with CGA and verbal cues for safety. Pt completes sit to stand with max assist and requires verbal cues for hand placement. Gait Training Does the Patient Walk?: No and Walking Goal IS indicated Wheelchair Training Does the Pt Use a Wheelchair?: Yes Wheelchair (FIM): 2 Wheelchair Distance: 8=050-41 ft Distance: 100' Wheelchair Level of Assist: 4 Type of Wheelchair: Manual Pt is CGA with wheelchair safety, requires verbal cues with turns and safety. Fatigues quickly, needs rest breaks. Exercises Seated Therapy Exercises: Ankle pumps, Long arc quads, Glut set Seated Reps: 20 Standing: Sit to Stand Standing Reps: 5 Treatments Pt completes seated exercises for functional LE strengthening, leaning and weight shift at edge of mat to increase trunk strength and control. Pt completes sit to stand with elevated mat and walker and max assist x5, tolerates 15 seconds of standing before having to sit due to fatigue. Pt requires verbal cues for posturing, has tendency to let trunk lean forward and is unable to bring pelvis forward off of mat. Assessment Current Status: Poor Progress Pt has no changes in mobility and endurance, requires frequent breaks for fatigue with all exercises. Pt is easily discouraged with standing and gives up quickly, is verbally cued for safety. PT Short Term Goals Short Term Goals Time Frame: Jul 30, 2017 Transfers (B,C,W/C) (FIM): 3 Gait (FIM): 2 Distance (FIM): 2=472-31 ft Gait Assistive Device: FWW Wheelchair Distance: 30' PT Half-Way Goals Half-Way Goals PT Half-Way Goals Time Frame: Aug 13, 2017 Transfers (B,C,W/C) (FIM): 6 Sit to Lying (QC): 6 Lying-Sitting on Side/Bed(QC): 6 Sit to Stand (QC): 6 Rollin Roll Left to Right (QC): 6 Chair/Njx-es-Kfzgg Xfer(QC): 6 Car Transfer (QC): 5 Does the Patient Walk: No and Walking Goal IS indicated Gait (FIM): 6 Gait distance (FIM): 3=150 ft Walk 10 feet (QC): 6 Walk 10ft-Uneven Surface(QC): 6 Walk 50ft with 2 Turns (QC): 6 Walk 150 ft (QC): 6 Gait Level of Assist: 6 Gait Assistive Device: FWW Stairs (FIM): 5 # of Steps: 8 1 Step (curb) (QC): 6 4 Steps (QC): 6 12 Steps (QC): 5 Stairs Level Of Assist: 6 Picking up an Object (QC): 5 PT Plan Problem List Problem List: Activity Tolerance, Functional Strength, Safety, Balance, Gait, Transfer, Bed Mobility, ROM Treatment/Plan Treatment Plan: Continue Plan of Care Treatment Plan: Bed Mobility, Education, Functional Activity Carlos A, Functional Strength, Group Therapy, Gait, Safety, Therapeutic Exercise, Transfers Treatment Duration: Aug 13, 2017 Frequency: At least 5 to 7 days/Wk (IRF) Estimated Hrs Per Day: 1.5 hours per day Patient and/or Family Agrees t: Yes Safety Risks/Education Patient Education: Transfer Techniques, Reviewed Precautions, Correct Positioning, W/C Management, Safety Issues Teaching Recipient: Patient Teaching Methods: Demonstration, Discussion Response to Teaching: Verbalize Understanding, Reinforcement Needed Time/GCodes Time In: 1000 Time Out: 1100 Total Billed Treatment Time: 60 Total Billed Treatment 1 visit 30 FA 15 EX 15 [facility] STEPHANE [facility] PT Jul 31, 2017 10:59
--- NOTE | 2017-07-31 11:17 | Progress Note-Hospitalist ---
Progress Note HPI/CC on Admission here for physical therapy to get better and stronger enough to go home. Complains primarily of her buttocks hurting from the pressure. Progress Notes/Assess & Plan Date Seen 07/31/17 Time Seen by Provider: 10:30 Diagonsis/Assessment & Plan Pt doing well Colostomy working well Day pass Thursday planned AFVSS, Pleasant, improved RRR, CTAB No edema Muscle wasting lower legs Assessment: Hypercalcemia Elevated liver function tests mild History of SVT and V. tach rhythm Profound muscle weakness of uncertain etiology other than long-standing critical illness Respiratory failure resolved Constipation resolved colostomy operating normally Plan: Miralax and Lactulose Lovenox 40 once daily Day pass Thursday DAVY ROME DO Jul 31, 2017 11:17
[2017-07-31] MEDS: LACTOBACILLUS Acidoph/Bulgar (LACTINEX/FLORANEX) TAB PO SCH ×2 (11:29→16:02)
--- NOTE | 2017-07-31 14:54 | Therapy Group Daily Note ---
Therapy Daily Group Note Patient Education Topic Other List Below Exercises LE Seated Exercise, UE Exercise Other/Notes Pt transported to OT/PT group via w/c. OT/PT group consisted of introductions ( name, place, first dollar made), socialization, education on ARU description/ expectations, stair safety/demon, walker safety, pt led seated UE/LE exercises and pt led conversations about medicare. Pt was able to introduce self appropriately. Pt contributed to conversations throughout group. Pt verbalized understanding of ARU description/expectations. Pt attentive to safety demonstrations and education. Pt was able to lead exercise and describe how to complete. After therapy, pt transported back to room via w/c then transferred into bed, max A. Call light/phone in reach. All needs met in room. Start Time: 13:00 Stop Time: 14:10 Total Billed Treatment Time: 70 Total Billed Treatment 1-GRP LILY INMAN Jul 31, 2017 14:54
[2017-07-31 17:52] VITALS: BP 127/67
[2017-07-31] MEDS: POLYETHYLENE GLYCOL 17 GM (MIRALAX) PACK PO SCH (21:13)
[2017-08-01 06:00] VITALS: BP 152/69
[2017-08-01] MEDS: PROPAFENONE 150 MG (RYTHMOL) TABLET PO SCH ×3 (06:53→21:08)
[2017-08-01] MEDS: PANTOPRAZOLE 20 MG TABLET (PROTONIX) PO SCH (06:53)
[2017-08-01] MEDS: LACTOBACILLUS Acidoph/Bulgar (LACTINEX/FLORANEX) TAB PO SCH ×3 (06:53→11:21)
[2017-08-01] MEDS: LEVOTHYROXINE 100 MCG (LEVOTHROID) TAB PO SCH (06:53)
[2017-08-01] MEDS: predniSONE 5 MG TAB PO SCH (06:53)
[2017-08-01] MEDS: SENNA W/DOCUSATE (SENOKOT S) TABLET PO SCH ×2 (08:07→21:08)
[2017-08-01] MEDS: LOSARTAN 50 MG (COZAAR) TAB PO SCH (08:07)
[2017-08-01] MEDS: ASPIRIN E.C. 81 MG (ECOTRIN) TAB PO SCH (08:07)
[2017-08-01] MEDS: ALPRAZolam 0.5 MG (XANAX) TAB PO SCH ×3 (08:07→21:08)
[2017-08-01] MEDS: buPROPion SR 150 MG (WELLBUTRIN SR) TAB PO SCH (08:08)
[2017-08-01] MEDS: ENOXAPARIN 40 MG/0.4 ML (LOVENOX) SYR SC SCH (08:08)
[2017-08-01] MEDS: risperiDONE 0.25 MG (RisperDAL) TAB PO SCH (08:08)
[2017-08-01] MEDS: LACTULOSE SYRUP 10GM/15ML (ENULOSE) 30ML UDC PO SCH ×2 (09:08→21:08)
[2017-08-01] MEDS: COLLAGENASE 30 GM (SANTYL) TUBE TP SCH ×2 (09:28→21:09)
--- NOTE | 2017-08-01 11:35 | Physical Therapy Daily Note ---
PT Daily Note-Current Subjective Pt in bed, agreeable to bed ex. Reports she is "very tired" from the week. Mental Status Patient Orientation: Person, Place, Time, Situation Transfers Functional [place] Measure 0=Not Assessed/NA 4=Minimal Assistance 1=Total Assistance 5=Supervision or Setup 2=Maximal Assistance 6=Modified [place] 3=Moderate Assistance 7=Complete IndependenceIRFPAI Quality Coding Scale 6 Independent with activity with or without an assistive device 5 Patient requires set up or clean up by helper. Patient completes activity by themselves 4 Supervision or touching assist (CGA). [place] provide cues , steadying assist 3 The helper provides less than half the effort to complete the activity 2 The helper provides more than half the effort to complete the activity 1 Dependent. The helper does all the effort to complete an activity 7 Patient refused to complete or attempt activity 9 The patient did not perform the activity before the current illness or injury 88 Not attempted due to Medical conditions or safety concerns Exercises Supine Ex: Bridging, Ankle pumps, Quad Set, Glut sets, Short Arc Quads, Resisted flex/ext (resisted hip extensions), Straight leg raise, Hip abd/add Supine Reps: 20 Treatments Bed ex for LE strengthening. Pt in bed after treatment with needs met. Assessment Current Status: Fair Progress Pt tolerated well. Able to complete partial raise with bridge. PT Short Term Goals Short Term Goals Time Frame: Jul 30, 2017 Transfers (B,C,W/C) (FIM): 3 Gait (FIM): 2 Distance (FIM): 7=036-42 ft Gait Assistive Device: FWW Wheelchair Distance: 100' PT Retirement Goals Warp Dresser Goals PT Retirement Goals Time Frame: Aug 13, 2017 Transfers (B,C,W/C) (FIM): 6 Sit to Lying (QC): 6 Lying-Sitting on Side/Bed(QC): 6 Sit to Stand (QC): 6 Rollin Roll Left to Right (QC): 6 Chair/Qxt-xh-Ckctw Xfer(QC): 6 Car Transfer (QC): 5 Does the Patient Walk: No and Walking Goal IS indicated Gait (FIM): 6 Gait distance (FIM): 3=150 ft Walk 10 feet (QC): 6 Walk 10ft-Uneven Surface(QC): 6 Walk 50ft with 2 Turns (QC): 6 Walk 150 ft (QC): 6 Gait Level of Assist: 6 Gait Assistive Device: FWW Stairs (FIM): 5 # of Steps: 8 1 Step (curb) (QC): 6 4 Steps (QC): 6 12 Steps (QC): 5 Stairs Level Of Assist: 6 Picking up an Object (QC): 5 PT Plan Problem List Problem List: Activity Tolerance, Functional Strength, Safety, Balance, Gait, Transfer, Bed Mobility Treatment/Plan Treatment Plan: Continue Plan of Care Treatment Plan: Bed Mobility, Education, Functional Activity Carlos A, Functional Strength, Group Therapy, Gait, Safety, Therapeutic Exercise, Transfers Treatment Duration: Aug 13, 2017 Frequency: At least 5 to 7 days/Wk (IRF) Estimated Hrs Per Day: 1.5 hours per day Patient and/or Family Agrees t: Yes Time/GCodes Time In: 1110 Time Out: 1135 Total Billed Treatment Time: 25 Total Billed Treatment 1, Ex x 25 G Codes Necessary: JANET Hauser DPLibertad Aug 01, 2017 11:35
[2017-08-01 18:01] VITALS: BP 154/69
[2017-08-01] MEDS: POLYETHYLENE GLYCOL 17 GM (MIRALAX) PACK PO SCH (21:08)
[2017-08-02 05:09] VITALS: BP 159/58
[2017-08-02] MEDS: PANTOPRAZOLE 20 MG TABLET (PROTONIX) PO SCH (06:46)
[2017-08-02] MEDS: PROPAFENONE 150 MG (RYTHMOL) TABLET PO SCH ×3 (06:46→20:37)
[2017-08-02] MEDS: LEVOTHYROXINE 100 MCG (LEVOTHROID) TAB PO SCH (06:46)
[2017-08-02] MEDS: predniSONE 5 MG TAB PO SCH (06:46)
[2017-08-02] MEDS: ALPRAZolam 0.5 MG (XANAX) TAB PO SCH ×3 (08:30→20:37)
[2017-08-02] MEDS: risperiDONE 0.25 MG (RisperDAL) TAB PO SCH (08:30)
[2017-08-02] MEDS: ASPIRIN E.C. 81 MG (ECOTRIN) TAB PO SCH (08:30)
[2017-08-02] MEDS: buPROPion SR 150 MG (WELLBUTRIN SR) TAB PO SCH (08:30)
[2017-08-02] MEDS: SENNA W/DOCUSATE (SENOKOT S) TABLET PO SCH ×2 (08:31→20:37)
[2017-08-02] MEDS: LACTULOSE SYRUP 10GM/15ML (ENULOSE) 30ML UDC PO SCH ×2 (08:31→20:39)
[2017-08-02] MEDS: LOSARTAN 50 MG (COZAAR) TAB PO SCH (08:34)
[2017-08-02] MEDS: ENOXAPARIN 40 MG/0.4 ML (LOVENOX) SYR SC SCH (08:36)
[2017-08-02] MEDS: COLLAGENASE 30 GM (SANTYL) TUBE TP SCH ×2 (08:37→20:38)
[2017-08-02 19:47] VITALS: BP 156/79
[2017-08-02] MEDS: POLYETHYLENE GLYCOL 17 GM (MIRALAX) PACK PO SCH (20:40)
[2017-08-03 05:18] VITALS: BP 151/72
[2017-08-03] MEDS: PROPAFENONE 150 MG (RYTHMOL) TABLET PO SCH ×3 (06:15→21:27)
[2017-08-03] MEDS: LEVOTHYROXINE 100 MCG (LEVOTHROID) TAB PO SCH (06:15)
[2017-08-03] MEDS: PANTOPRAZOLE 20 MG TABLET (PROTONIX) PO SCH (06:15)
[2017-08-03] MEDS: predniSONE 5 MG TAB PO SCH (06:15)
[2017-08-03] MEDS: ALPRAZolam 0.5 MG (XANAX) TAB PO SCH ×3 (08:27→21:25)
[2017-08-03] MEDS: SENNA W/DOCUSATE (SENOKOT S) TABLET PO SCH ×2 (08:27→21:25)
[2017-08-03] MEDS: buPROPion SR 150 MG (WELLBUTRIN SR) TAB PO SCH (08:27)
[2017-08-03] MEDS: risperiDONE 0.25 MG (RisperDAL) TAB PO SCH (08:27)
[2017-08-03] MEDS: LOSARTAN 50 MG (COZAAR) TAB PO SCH (08:27)
[2017-08-03] MEDS: ASPIRIN E.C. 81 MG (ECOTRIN) TAB PO SCH (08:27)
[2017-08-03] MEDS: COLLAGENASE 30 GM (SANTYL) TUBE TP SCH ×2 (08:29→21:27)
[2017-08-03] MEDS: LACTULOSE SYRUP 10GM/15ML (ENULOSE) 30ML UDC PO SCH ×2 (08:30→21:26)
[2017-08-03] MEDS: ENOXAPARIN 40 MG/0.4 ML (LOVENOX) SYR SC SCH (10:26)
--- NOTE | 2017-08-03 12:09 | Occupational Ther Daily Note ---
OT Current Status-Daily Note Subjective No pain reported. However, pt. becomes tearful and asks about going home soon. States that she has everything set up with family, and family is on board. Will speak with social insurance administrator tomorrow. Appearance Pt. in bed. Agrees to shower. Mental Status/Objective Patient Orientation: Person, Place, Time, Situation Functional [place] Measure 0=Not Assessed/NA 4=Minimal Assistance 1=Total Assistance 5=Supervision or Setup 2=Maximal Assistance 6=Modified [place] 3=Moderate Assistance 7=Complete [place] Attachments: Colostomy/Ileostomy ADL-Treatment Functional [place] Measure 0=Not Assessed/NA 4=Minimal Assistance 1=Total Assistance 5=Supervision or Setup 2=Maximal Assistance 6=Modified [place] 3=Moderate Assistance 7=Complete IndependenceIRFPAI Quality Coding Scale 6 Independent with activity with or without an assistive device 5 Patient requires set up or clean up by helper. Patient completes activity by themselves 4 Supervision or touching assist (CGA). [place] provide cues , steadying assist 3 The helper provides less than half the effort to complete the activity 2 The helper provides more than half the effort to complete the activity 1 Dependent. The helper does all the effort to complete an activity 7 Patient refused to complete or attempt activity 9 The patient did not perform the activity before the current illness or injury 88 Not attempted due to Medical conditions or safety concerns Bathing (FIM): 3 (OT washes pt's hair, rear mamta area, and bilateral LE. Pt. is able to get all other parts while seated on shower chair.) Shower/Bathe Self (QC): 2 Upper Body (FIM): 3 (Pt. requires mod assistance to don shirt over arms and head.) Upper Body Dressing (QC): 3 Lower Body Dressing (FIM): 2 (Pt. requires max assistance to don underwear, pants, and shoes.) Lower Body Dressing (QC): 2 On/Off Footwear (QC): 2 Transfers (B, C, W/C) (FIM): 3 (Mod assistance for supine-sit. Mod assistance to stand and then to transfer to shower chair.) Shower Transfer(FIM): 1 (OT rolled pt. into shower while on shower chair.) Other Treatment Pt. is very tearful about going home. States that she went home this weekend on pass. Was able to get into and out of car with family assist. States that she has a power chair at home, and once she was in it, she was able to get around and "do stuff." Pt. states that she wants to go home and continue with home health therapy, and then progress to outpt. Pt. very emotional as she is talking about this, and states, "you guys can't hold me here right?" Explained to pt. that it will need to be discussed with social insurance administrator, physician, and family as to her needs and further care. Education OT Patient Education: Correct positioning, Modified ADL techniques, Progress toward Goal/Update tx plan, Purpose of tx/functional activities, Reviewed precautions, Rehab process, Transfer techniques, Use of adapted equipment Teaching Recipient: Patient Teaching Methods: Demonstration, Discussion Response to Teaching: Verbalize Understanding, Return Demonstration OT Short Term Goals Short Term Goals Time Frame: Jul 30, 2017 Eating(FIM): 4 Grooming(FIM): 4 Bathing(FIM): 3 Upper Body Dressing(FIM): 3 Lower Body Dressing(FIM): 3 Toileting(FIM): 3 Transfers (B,C,W/C) (FIM): 3 Toilet/Commode Transfer(FIM): 3 Shower Transfer(FIM): 3 Additional Short Term Goals: 1-Demonstrate ADL Tasks, 2-Verbalize Understanding , 3-ImproveStrength/Carlos A 1=Demonstrate adherence to instructed precautions during ADL tasks. 2=Patient will verbalize/demonstrate understanding of assistive devices/ modifications for ADL. 3=Patient will improve strength/tolerance for activity to enable patient to perform ADL's. OT Pick Out Hand Goals Pick Out Hand Goals Time Frame: Aug 13, 2017 Eating (FIM): 5 Eating (QC): 5 Groomin Oral Hygiene (QC): 5 Bathing(FIM): 5 Shower/Bathe Self (QC): 4 Upper Body Dressing(FIM): 5 Upper Body Dressing (QC): 4 Lower Body Dressing(FIM): 5 Lower Body Dressing (QC): 4 On/Off Footwear (QC): 4 Toileting(FIM): 5 Toileting Hygiene (QC): 4 Transfers (B,C,W/C) (FIM): 5 Toilet/Commode Transfer(FIM): 5 Toilet/Commode Transfer (QC): 4 Tub Transfer(FIM): 5 Shower Transfer(FIM): 4 Additional Goals: 1-Demonstrate ADL Tasks, 2-Verbalize Understanding, 3- ImproveStrength/Carlos A 1=Demonstrate adherence to instructed precautions during ADL tasks. 2=Patient will verbalize/demonstrate understanding of assistive devices/ modifications for ADL. 3=Patient will improve strength/tolerance for activity to enable patient to perform ADL's. OT Education/Plan Problem List/Assessment Assessment: Decreased Activ Tolerance, Decreased UE Strength, Dependent Transfers, Impaired Bed Mobility, Impaired Coordination, Impaired Funct Balance , Impaired I ADL's, Impaired Self-Care Skills, Restricted Funct UE ROM Discharge Recommendations Plan/Recommendations: Continue POC Therapy D/C Recommendations: 24 hr Supervision, Home w/ Family Support, Occupational Therapy Home Care Target Placement Pt. would like to return home with family as soon as she can. Will get list of equipment needs from family, as pt. states that they have been getting "stuff." Treatment Plan/Plan of Care Treatment,Training & Education: Yes Patient would benefit from OT for education, treatment and training to promote independence in ADL's, mobility, safety and/or upper extremity function for ADL' s. Plan of Care: ADL Retraining, Caregiver Training, Functional Mobility, Group Exercise/Act as Ind, UE Funct Exercise/Act Treatment Duration: Aug 13, 2017 Frequency: At least 5 to 7 days/Wk (IRF) Estimated Hrs Per Day: 1.5 hours per day Agreement: Yes Rehab Potential: Good Time/GCodes Start Time: 09:00 Stop Time: 10:00 Total Time Billed (hr/min): 60 Billed Treatment Time 1, ADL x 4 JAILYN ASHER OT Aug 03, 2017 12:09
--- NOTE | 2017-08-03 14:34 | Physical Therapy Daily Note ---
PT Daily Note-Current Subjective "My bottom is sore but thats all." Pt denies pain. Pt reports she went home yesterday on a day pass. Pt reports she did very well functionally. Pt reports she used her husbands motorized scooter and did dishes, laundry and went all over. "It felt great. I just have to get home. I will do better at home." Pt states "I want to go home at the end of the week. My , son and daughter all said they would help me." Biggest complaint "I am so weak in the middle." Appearance Pt emotional at times. Pt says her condition has got her depressed. Pt very appreciative and again emotional after she took steps in //bars today. Mental Status Patient Orientation: Person, Place, Situation Attachments: Colostomy/Ileostomy, Reynolds Catheter Transfers Functional [place] Measure 0=Not Assessed/NA 4=Minimal Assistance 1=Total Assistance 5=Supervision or Setup 2=Maximal Assistance 6=Modified [place] 3=Moderate Assistance 7=Complete IndependenceIRFPAI Quality Coding Scale 6 Independent with activity with or without an assistive device 5 Patient requires set up or clean up by helper. Patient completes activity by themselves 4 Supervision or touching assist (CGA). [place] provide cues , steadying assist 3 The helper provides less than half the effort to complete the activity 2 The helper provides more than half the effort to complete the activity 1 Dependent. The helper does all the effort to complete an activity 7 Patient refused to complete or attempt activity 9 The patient did not perform the activity before the current illness or injury 88 Not attempted due to Medical conditions or safety concerns Bed mobility max A to move B LE to EOB and min A for upper body. SPT bed-w/c required modA. Gait Training Gait Assistive Device: Parallel Bars Pt performs sit-stand with mod A of 2. Pt stood in //bars 1x 1min, 2 x 1:30 with manual assist at L glute and blocking L knee. Pt took 2 steps forward with each foot 1x. Pt took 4-5 steps forward with each foot amb approximately 4ft with max vc's, manual support at L glute and blocking of weightbearing limb during each step required. Min A for balance and safety of 2 people, close f/u of w/c required. Pt fatigued with each standing episode and gait training episode requiring 2 -3min rest between Wheelchair Training Type of Wheelchair: Manual W/c mobility training x 60ft total Exercises Seated Therapy Exercises: Ankle pumps, Long arc quads, Hip abd/add, Glut set Seated Reps: 20 Treatments PT seen for w/c mobility training, gait training, and ther ex. Pt able to take steps today with Mod A of 2 to stand and Min A of 2 for balance: max vc's for sequence and manual support for L glute and knee blocking required due to weakness. Assessment Current Status: Good Progress Pt very weak and fatigues easily. Pt showing overall improvement by tolerating more activity in //bars. Pt back to room seated in w/c with call light and all needs met. PT Short Term Goals Short Term Goals Time Frame: Jul 30, 2017 Transfers (B,C,W/C) (FIM): 3 Gait (FIM): 2 Distance (FIM): 2=782-49 ft Gait Assistive Device: FWW Wheelchair Distance: 100' PT Mcfp Goals Household Appliance Installer Goals PT Household Appliance Installer Goals Time Frame: Aug 13, 2017 Transfers (B,C,W/C) (FIM): 6 Sit to Lying (QC): 6 Lying-Sitting on Side/Bed(QC): 6 Sit to Stand (QC): 6 Rollin Roll Left to Right (QC): 6 Chair/Bub-mi-Drzow Xfer(QC): 6 Car Transfer (QC): 5 Does the Patient Walk: No and Walking Goal IS indicated Gait (FIM): 6 Gait distance (FIM): 3=150 ft Walk 10 feet (QC): 6 Walk 10ft-Uneven Surface(QC): 6 Walk 50ft with 2 Turns (QC): 6 Walk 150 ft (QC): 6 Gait Level of Assist: 6 Gait Assistive Device: FWW Stairs (FIM): 5 # of Steps: 8 1 Step (curb) (QC): 6 4 Steps (QC): 6 12 Steps (QC): 5 Stairs Level Of Assist: 6 Picking up an Object (QC): 5 PT Plan Treatment/Plan Treatment Plan: Continue Plan of Care Treatment Plan: Bed Mobility, Education, Functional Activity Carlos A, Functional Strength, Group Therapy, Gait, Safety, Therapeutic Exercise, Transfers Treatment Duration: Aug 13, 2017 Frequency: At least 5 to 7 days/Wk (IRF) Estimated Hrs Per Day: 1.5 hours per day Patient and/or Family Agrees t: Yes Time/GCodes Time In: 1100 Time Out: 1200 Total Billed Treatment Time: 60 Total Billed Treatment 1, gait 45min, ther ex 15 min MARTINEZ ARELLANO CPTA Aug 03, 2017 14:34
--- NOTE | 2017-08-03 14:35 | Therapy Group Daily Note ---
Therapy Daily Group Note Patient Education Topic Other List Below Exercises LE Seated Exercise, UE Exercise Other/Notes Pt was an active participant in OT/PT group. She contributed to education/ discussion on memory and memory strategies and was able to identify different strategies that work for her to help remembering things. She also was successful in a memory activity, matching different images. She did seated UE and LE exercises, modifying them to her limitations. She was returned to her room per w/c, all needs met. Start Time: 13:00 Stop Time: 14:15 Total Billed Treatment Time: 75 Total Billed Treatment visit, 75 minutes group WENDY WATKINS OT Aug 03, 2017 14:35
[2017-08-03 17:58] VITALS: BP 147/69
[2017-08-03] MEDS: POLYETHYLENE GLYCOL 17 GM (MIRALAX) PACK PO SCH (21:27)
[2017-08-04 05:09] VITALS: BP 159/61
[2017-08-04] MEDS: PROPAFENONE 150 MG (RYTHMOL) TABLET PO SCH ×3 (05:50→21:14)
[2017-08-04] MEDS: PANTOPRAZOLE 20 MG TABLET (PROTONIX) PO SCH (05:51)
[2017-08-04] MEDS: predniSONE 5 MG TAB PO SCH (05:51)
[2017-08-04] MEDS: LEVOTHYROXINE 100 MCG (LEVOTHROID) TAB PO SCH (05:51)
[2017-08-04 08:21] VITALS: BP 158/68
[2017-08-04] MEDS: ALPRAZolam 0.5 MG (XANAX) TAB PO SCH ×3 (08:26→21:15)
[2017-08-04] MEDS: buPROPion SR 150 MG (WELLBUTRIN SR) TAB PO SCH (08:26)
[2017-08-04] MEDS: risperiDONE 0.25 MG (RisperDAL) TAB PO SCH (08:26)
[2017-08-04] MEDS: SENNA W/DOCUSATE (SENOKOT S) TABLET PO SCH ×2 (08:26→21:15)
[2017-08-04] MEDS: LACTULOSE SYRUP 10GM/15ML (ENULOSE) 30ML UDC PO SCH ×2 (08:26→21:13)
[2017-08-04] MEDS: ASPIRIN E.C. 81 MG (ECOTRIN) TAB PO SCH (08:26)
[2017-08-04] MEDS: LOSARTAN 50 MG (COZAAR) TAB PO SCH (08:26)
[2017-08-04] MEDS: COLLAGENASE 30 GM (SANTYL) TUBE TP SCH ×2 (08:27→21:16)
[2017-08-04] MEDS: ENOXAPARIN 40 MG/0.4 ML (LOVENOX) SYR SC SCH (09:24)
--- NOTE | 2017-08-04 10:01 | Occupational Ther Daily Note ---
OT Current Status-Daily Note Subjective Pt alert, sitting in bed. Agrees to therapy. Pt emotional about going home soon. Mental Status/Objective Patient Orientation: Person, Place, Time, Situation Functional [place] Measure 0=Not Assessed/NA 4=Minimal Assistance 1=Total Assistance 5=Supervision or Setup 2=Maximal Assistance 6=Modified [place] 3=Moderate Assistance 7=Complete [place] Attachments: Colostomy/Ileostomy, Reynolds Catheter ADL-Treatment Functional [place] Measure 0=Not Assessed/NA 4=Minimal Assistance 1=Total Assistance 5=Supervision or Setup 2=Maximal Assistance 6=Modified [place] 3=Moderate Assistance 7=Complete IndependenceIRFPAI Quality Coding Scale 6 Independent with activity with or without an assistive device 5 Patient requires set up or clean up by helper. Patient completes activity by themselves 4 Supervision or touching assist (CGA). [place] provide cues , steadying assist 3 The helper provides less than half the effort to complete the activity 2 The helper provides more than half the effort to complete the activity 1 Dependent. The helper does all the effort to complete an activity 7 Patient refused to complete or attempt activity 9 The patient did not perform the activity before the current illness or injury 88 Not attempted due to Medical conditions or safety concerns Grooming (FIM): 6 (Pt able to brush teeth, wash face, comb hair, and apply deodorant by self while seated at sink. ) Oral Hygiene (QC): 6 (Pt able to complete oral hygiene while seated at sink.) Upper Body (FIM): 4 (Pt able to unbutton 2 buttons and doff pajama shirt with min A to get over head. Able to don loose t shirt with min A to pull down in back. ) Lower Body Dressing (FIM): 2 (Max A to stand while pt pulls pants down. Assistance needed to get clothing on and off feet. Max A to stand while other therapist pulls pants up. ) On/Off Footwear (QC): 2 (Requires assistance to don and doff shoes and socks. Pt able to lift feet off ground to help. ) Transfers (B, C, W/C) (FIM): 2 (Pt requires max A for stand pivot transfer. ) Other Treatment Pt transported in w/c to [facility] shower room in w/c for education about DME. Pt identifies what she owns at home and therapist suggests equipment needed and demonstrates how it is used. Pt transported back to room. After therapy, pt sitting in w/c with phone and call light in reach. All needs met. Education OT Patient Education: Use of adapted equipment Teaching Recipient: Patient Teaching Methods: Demonstration, Discussion Response to Teaching: Verbalize Understanding OT Short Term Goals Short Term Goals Time Frame: Jul 30, 2017 Eating(FIM): 4 Grooming(FIM): 4 Bathing(FIM): 3 Upper Body Dressing(FIM): 3 Lower Body Dressing(FIM): 3 Toileting(FIM): 3 Transfers (B,C,W/C) (FIM): 3 Toilet/Commode Transfer(FIM): 3 Shower Transfer(FIM): 3 Additional Short Term Goals: 1-Demonstrate ADL Tasks, 2-Verbalize Understanding , 3-ImproveStrength/Carlos A 1=Demonstrate adherence to instructed precautions during ADL tasks. 2=Patient will verbalize/demonstrate understanding of assistive devices/ modifications for ADL. 3=Patient will improve strength/tolerance for activity to enable patient to perform ADL's. OT Parking Meter Installer Goals Parking Meter Installer Goals Time Frame: Aug 13, 2017 Eating (FIM): 5 Eating (QC): 5 Groomin Oral Hygiene (QC): 5 Bathing(FIM): 5 Shower/Bathe Self (QC): 4 Upper Body Dressing(FIM): 5 Upper Body Dressing (QC): 4 Lower Body Dressing(FIM): 5 Lower Body Dressing (QC): 4 On/Off Footwear (QC): 4 Toileting(FIM): 5 Toileting Hygiene (QC): 4 Transfers (B,C,W/C) (FIM): 5 Toilet/Commode Transfer(FIM): 5 Toilet/Commode Transfer (QC): 4 Tub Transfer(FIM): 5 Shower Transfer(FIM): 4 Additional Goals: 1-Demonstrate ADL Tasks, 2-Verbalize Understanding, 3- ImproveStrength/Carlos A 1=Demonstrate adherence to instructed precautions during ADL tasks. 2=Patient will verbalize/demonstrate understanding of assistive devices/ modifications for ADL. 3=Patient will improve strength/tolerance for activity to enable patient to perform ADL's. OT Education/Plan Discharge Recommendations Plan/Recommendations: Continue POC Treatment Plan/Plan of Care Patient would benefit from OT for education, treatment and training to promote independence in ADL's, mobility, safety and/or upper extremity function for ADL' s. Plan of Care: ADL Retraining, Caregiver Training, Functional Mobility, Group Exercise/Act as Ind, UE Funct Exercise/Act Treatment Duration: Aug 13, 2017 Frequency: At least 5 to 7 days/Wk (IRF) Estimated Hrs Per Day: 1.5 hours per day Agreement: Yes Rehab Potential: Good Time/GCodes Start Time: 09:00 Stop Time: 10:00 Total Time Billed (hr/min): 60 Billed Treatment Time 1 visit, ADL 3 (45 minutes) FA 1 (15 minutes) LILY INMAN Aug 04, 2017 10:01
--- NOTE | 2017-08-04 10:58 | Progress Note-Hospitalist ---
Subjective HPI/CC On Admission Date Seen by Provider: Aug 04, 2017 Time Seen by Provider: 10:25 here for physical therapy to get better and stronger enough to go home. Complains primarily of her buttocks hurting from the pressure. Subjective/Events-last exam Mrs. Hay reports feeling better after a good home visit this weekend. She's been hospitalized since and with a forward to going home tentatively next week. She reports gaining 10 pounds since her low with improvement in strength and stamina. She is, long way but still has significant deconditioning. She denies chest pain or palpitations with past history of mitral valve prolapse with tachyarrhythmia for which ablation was not successful in the distant past. Objective Exam Vital Signs Vital Sign - Last 12Hours 07/29/17 04:00 Temp 96.2 Pulse 82 Resp 20 B/P (MAP) 147/66 Pulse Ox 100 O2 Delivery Room Air Capillary Refill : General Appearance: Anxious, Chronically ill, Thin Respiratory: Chest Non Tender, Lungs Clear, Normal Breath Sounds, No Accessory Muscle Use, No Respiratory Distress Cardiovascular: Regular Rate, Rhythm, No Edema, No Gallop, No JVD, No Murmur, Normal Peripheral Pulses, Other (early systolic click is noted without evidence for murmur of mitral insufficiency.) Gastrointestinal: Normal Bowel Sounds, No Organomegaly, No Pulsatile Mass, Non Tender, Soft Extremity: Other (severe Sarcopenia without evidence for edema. Senile- appearing small purpura are present on all extremities.) Skin: Pallor, Other (small purpuric areas on all extremities without evidence for hematoma.) Assessment/Plan Assessment and Plan Assess & Plan/Chief Complaint 1. Severe deconditioning multifactorial initial diverticular disease perforation and multiple abdominal abscesses sustaining and colostomy slowly improving. 2. Low-dose prednisone considering hypertension and earlier high random cortisol will continue slow taper milligram per week until off. 3. Bladder dysfunction will discuss the prospects of catheter removal for voiding trial prior to discharge with Dr. Pickett. 4. Hypercalcemia mild with normal corrected ionized calcium and low PTH we'll repeat a CMP and a CBC considering this and rather diffuse purpura. SUNDAR BOURNE MD Aug 04, 2017 10:57
--- NOTE | 2017-08-04 11:18 | Physical Therapy Daily Note ---
PT Daily Note-Current Subjective Pt is sitting in wheelchair prior to tx and agreeable to PT. Pt has no reports of pain. Pt is lying in bed with nurse call, phone, tray, all needs in reach post tx. Pain Numeric Pain Scale: 0-No Pain Location: No Pain Reported Mental Status Patient Orientation: Normal For Age Attachments: Colostomy/Ileostomy, Reynolds Catheter Transfers Functional [place] Measure 0=Not Assessed/NA 4=Minimal Assistance 1=Total Assistance 5=Supervision or Setup 2=Maximal Assistance 6=Modified [place] 3=Moderate Assistance 7=Complete IndependenceIRFPAI Quality Coding Scale 6 Independent with activity with or without an assistive device 5 Patient requires set up or clean up by helper. Patient completes activity by themselves 4 Supervision or touching assist (CGA). [place] provide cues , steadying assist 3 The helper provides less than half the effort to complete the activity 2 The helper provides more than half the effort to complete the activity 1 Dependent. The helper does all the effort to complete an activity 7 Patient refused to complete or attempt activity 9 The patient did not perform the activity before the current illness or injury 88 Not attempted due to Medical conditions or safety concerns Transfers (B, C, W/C) (FIM): 2 Scootin Supine to/from Sit: 3 Sit to/from Stand: 2 Bed to/from Chair: 2 Pt is mod assist with bed mobility for safety. Pt is max assist with sit to stand. Pt requires verbal cues for hand placement and scooting to edge of chair. Wheelchair Training Does the Pt Use a Wheelchair?: Yes Wheelchair (FIM): 2 Wheelchair Distance: 0=882-18 ft Distance: 50'x2 Wheelchair Level of Assist: 5 Type of Wheelchair: Manual Pt propels wheelchair 50'x2 with supervision for safety. Exercises Seated Therapy Exercises: Ankle pumps, Long arc quads, Hip flexion, Hip abd/add , Glut set Seated Reps: 20 Standing: Sit to Stand Standing Reps: 5 Pt completes 5 sit to stands and tolerates 75 seconds of standing before having to sit due to fatigue. Pt requires mod assist standing and verbal cues with posture and bringing hips forward. Treatments Pt completes seated exercises for functional LE strengthening and standing to increase ability with transfers and functional mobility. Pt completes wheelchair training to increase mobility and endurance. Assessment Current Status: Good Progress Pt is improving with bed mobility, transfers, and standing. Pt endurance is increasing, and is able to tolerate longer bouts of standing. PT Short Term Goals Short Term Goals Time Frame: Jul 30, 2017 Transfers (B,C,W/C) (FIM): 3 Gait (FIM): 2 Distance (FIM): 9=557-85 ft Gait Assistive Device: FWW Wheelchair Distance: 100' PT Residential Goals Residential Goals PT Public Speaking Professor Goals Time Frame: Aug 13, 2017 Transfers (B,C,W/C) (FIM): 6 Sit to Lying (QC): 6 Lying-Sitting on Side/Bed(QC): 6 Sit to Stand (QC): 6 Rollin Roll Left to Right (QC): 6 Chair/Ajj-xg-Ejbrv Xfer(QC): 6 Car Transfer (QC): 5 Does the Patient Walk: No and Walking Goal IS indicated Gait (FIM): 6 Gait distance (FIM): 3=150 ft Walk 10 feet (QC): 6 Walk 10ft-Uneven Surface(QC): 6 Walk 50ft with 2 Turns (QC): 6 Walk 150 ft (QC): 6 Gait Level of Assist: 6 Gait Assistive Device: FWW Stairs (FIM): 5 # of Steps: 8 1 Step (curb) (QC): 6 4 Steps (QC): 6 12 Steps (QC): 5 Stairs Level Of Assist: 6 Picking up an Object (QC): 5 PT Plan Problem List Problem List: Activity Tolerance, Functional Strength, Safety, Balance, Gait, Transfer, Bed Mobility, ROM Treatment/Plan Treatment Plan: Continue Plan of Care Treatment Plan: Bed Mobility, Education, Functional Activity Carlos A, Functional Strength, Group Therapy, Gait, Safety, Therapeutic Exercise, Transfers Treatment Duration: Aug 13, 2017 Frequency: At least 5 to 7 days/Wk (IRF) Estimated Hrs Per Day: 1.5 hours per day Patient and/or Family Agrees t: Yes Safety Risks/Education Patient Education: Transfer Techniques, Reviewed Precautions, Correct Positioning, W/C Management Teaching Recipient: Patient Teaching Methods: Demonstration, Discussion Response to Teaching: Verbalize Understanding, Reinforcement Needed Time/GCodes Time In: 1010 Time Out: 1110 Total Billed Treatment Time: 60 Total Billed Treatment 1 visit 15 [facility] 15 EX 30 FA LILY MATTHEWS PT Aug 04, 2017 11:17
[2017-08-04 11:33] LABS: BASOPHILS % (AUTO) 0 % (0-10); EOSINOPHILS % (AUTO) 0 % (0-10); LYMPHOCYTES # (AUTO) 1.6 X 10^3 (1.0-4.0); LYMPHOCYTES % (AUTO) 24 % (12-44); MEAN CORPUSCULAR HEMOGLOBIN 29 PG (25-34); MEAN CORPUSCULAR HGB CONC 32 G/DL (32-36); MEAN CORPUSCULAR VOLUME 91 FL (80-99); MEAN PLATELET VOLUME 8.7 FL (7.4-10.4); MONOCYTES # (AUTO) 0.5 X 10^3 (0.0-1.0); MONOCYTES % (AUTO) 8 % (0-12); NEUTROPHILS # (AUTO) 4.6 X 10^3 (1.8-7.8); NEUTROPHILS % (AUTO) 67 % (42-75); PLATELET COUNT 384 10^3/uL (130-400); RED CELL DISTRIBUTION WIDTH 13.1 % (10.0-14.5); WHITE BLOOD COUNT 6.8 10^3/uL (4.3-11.0)
[2017-08-04 11:50] LABS: ALANINE AMINOTRANSFERASE 36 U/L (0-55); ALBUMIN 2.9 GM/DL (3.2-4.5); ANION GAP 13 MMOL/L (5-14); ASPARTATE AMINO TRANSFERASE 22 U/L (5-34); BILIRUBIN,TOTAL 0.3 MG/DL (0.1-1.0); BLOOD UREA NITROGEN 7 MG/DL (7-18); BUN/CREATININE RATIO 11; CALCIUM 9.7 MG/DL (8.5-10.1); CARBON DIOXIDE 20 MMOL/L (21-32); CHLORIDE 109 MMOL/L (98-107); CREATININE SERUM 0.62 MG/DL (0.60-1.30); GFR ESTIMATED > 60; GLUCOSE 99 MG/DL (70-105); POTASSIUM 2.8 MMOL/L (3.6-5.0); SODIUM 142 MMOL/L (135-145)
[2017-08-04] MEDS ORDERED: KCL 8 MEQ (MICRO K) TABLET PO NR (12:45)
[2017-08-04] MEDS ORDERED: MAGNESIUM OXIDE (MAG-OX)400 MG TAB PO ONE (14:00)
[2017-08-04 14:40] VITALS: BP 155/64
--- NOTE | 2017-08-04 14:46 | Therapy Group Daily Note ---
Therapy Daily Group Note Patient Education Topic Exercises, Other List Below (memory strategies, body systems) Exercises LE Seated Exercise, UE Exercise Other/Notes Pt propelled w/c to OT group in therapy gym. Participated in introductions (name , hospital born in, artem), pt was social and contributed to conversations. Educated about different systems of body and how they affect balance. Pt reviewed memory strategies. Pt used strategies to recall and lead group in UE/ LE seated exercises. Pt reviewed board with different items on it, then used memory strategies to recall what was on it. Pt completed multisensory exercises. Pt completed stereognosis activity. Pt participated in group conversation about what pt does to relax. Pt propelled w/c back to room. Transferred into bed with max A. After therapy, pt sitting in bed with phone and call light in reach. All needs met. Start Time: 13:00 Stop Time: 14:10 Total Billed Treatment Time: 70 Total Billed Treatment 1-GRP LILY INMAN Aug 04, 2017 14:46
--- NOTE | 2017-08-04 17:26 | PM & R (SOAP) Progress Note ---
Subjective Time Seen by Provider: 16:45 Subjective/Events-last exam Patient was seen in HER ROOM THIS am hAS FAIRLY DIFFUSE BRUISING OVER ARMS aPPRECIATE dr Rodrigues NOTE AND OREDRS lOW k AND mAGNESIUM AND ELEVATED cALCIUM BEING ADDRESSED.pATIIENT MOD TO MA X ASSIST FOR TRANSFERS.pATIENT HOPING TO GO HOME NEXT WEK WITH THE ASSISTANCE OF HER FAMILY. Review of Systems Neurological: Weakness Objective Exam Last Set of Vital Signs Vital Signs Date Time Temp Pulse Resp B/P (MAP) Pulse Ox O2 Delivery O2 Flow Rate FiO2 08/04/17 14:40 97.2 84 20 155/64 100 Room Air Capillary Refill : I&O Intake and Output 08/05/17 00:00 Intake Total 350 ml Output Total 300 ml Balance 50 ml Intake Oral 350 ml Output Urine Total 300 ml Stool Total 0 ml General: Alert, No Acute Distress HEENT: Atraumatic, PERRLA, EOMI, Mucous Memb Moist/[place] Neck: Supple, No JVD, Other (trach plugged) Lungs: Normal Air Movement Heart: Regular Rate Abdomen: Normal Bowel Sounds, Soft, No Tenderness, Other ( Peg tube site as per above Colostomy functioning) Skin: Other (LUQ abdomen -- 1.0 x 0.9 x 1.7 cm; 100% slough, mod. s.s. drainage.) Neuro: Other (2/5/strength both lower extremities Sensation intact Cognition intact ST assessing swallow) Other physical findings PURPERA OVER BOTH ARMS Results Lab Laboratory Tests 08/04/17 11:22: White Blood Count 6.8, Red Blood Count 3.70L, Hemoglobin 10.7L, Hematocrit 34L, Mean Corpuscular Volume 91, Mean Corpuscular Hemoglobin 29, Mean Corpuscular Hemoglobin Concent 32, Red Cell Distribution Width 13.1, Platelet Count 384, Mean Platelet Volume 8.7, Neutrophils (%) (Auto) 67, Lymphocytes (%) (Auto) 24, Monocytes (%) (Auto) 8, Eosinophils (%) (Auto) 0, Basophils (%) (Auto) 0, Neutrophils # (Auto) 4.6, Lymphocytes # (Auto) 1.6, Monocytes # (Auto) 0.5, Eosinophils # (Auto) 0.0, Basophils # (Auto) 0.0, Sodium Level 142, Potassium Level 2.8L, Chloride Level 109H, Carbon Dioxide Level 20L, Anion Gap 13, Blood Urea Nitrogen 7, Creatinine 0.62, Estimat Glomerular Filtration Rate > 60, BUN/ Creatinine Ratio 11, Glucose Level 99, Calcium Level 9.7, Magnesium Level 1.3L, Total Bilirubin 0.3, Aspartate Amino Transf (AST/SGOT) 22, Alanine Aminotransferase (ALT/SGPT) 36, Alkaline Phosphatase 166H, Total Protein 6.0L, Albumin 2.9L Assessment/Plan Assessment Crtical illness myopathy S/P trach now decannulkated DR Causey S/P Peg tube removal with area of breakdown-DR García has addressed S/P colostomy for perforated bowel DR Ng HTN Chronic constipation Elevated LFTS Hypercalcemia-IMPROVED Hypomagnesemia-RECEIVING REPLACEMENT hYPOKALEMIA ON REPLACEMENT Urinary retention -Reynolds reinserted and to remain in for now DVT prophylaxis Heparin switched to Lovenox SUBCUT Plan Continue PT/OT/ST/Wound care/Reynolds catheter care F/U with hospitalist in lieu of pcp and DR Ng re abnormal labs [place] [facility] consulted re reactive anxiety-Appreciate their note F/U with DR Causey and Nieves prn Family conference held 07-28-17-See SW note Consult DR García re wound care-See orders.-done appreciate his assistance nEXT tEAM cONFERENCE TOMORROW 08-05-17. f/u ABNORMAL LABS . TRIP SIERRA MD Aug 04, 2017 17:26
[2017-08-04] MEDS: MAGNESIUM OXIDE (MAG-OX)400 MG TAB PO SCH (17:52)
[2017-08-04 18:06] VITALS: BP 158/73
[2017-08-04] MEDS: POLYETHYLENE GLYCOL 17 GM (MIRALAX) PACK PO SCH (21:13)
[2017-08-05 05:34] VITALS: BP 156/68
[2017-08-05] MEDS: KCL 8 MEQ (MICRO K) TABLET PO SCH (06:40)
[2017-08-05] MEDS: PANTOPRAZOLE 20 MG TABLET (PROTONIX) PO SCH (06:40)
[2017-08-05] MEDS: PROPAFENONE 150 MG (RYTHMOL) TABLET PO SCH ×3 (06:40→21:22)
[2017-08-05] MEDS: LEVOTHYROXINE 100 MCG (LEVOTHROID) TAB PO SCH (06:40)
[2017-08-05] MEDS: predniSONE 1 MG TAB PO SCH (06:42)
[2017-08-05 08:00] VITALS: BP 154/58
[2017-08-05] MEDS: ASPIRIN E.C. 81 MG (ECOTRIN) TAB PO SCH (08:03)
[2017-08-05] MEDS: SENNA W/DOCUSATE (SENOKOT S) TABLET PO SCH ×2 (08:03→21:22)
[2017-08-05] MEDS: buPROPion SR 150 MG (WELLBUTRIN SR) TAB PO SCH (08:03)
[2017-08-05] MEDS: MAGNESIUM OXIDE (MAG-OX)400 MG TAB PO SCH ×2 (08:04→16:53)
[2017-08-05] MEDS: ALPRAZolam 0.5 MG (XANAX) TAB PO SCH ×3 (08:04→21:22)
[2017-08-05] MEDS: LOSARTAN 50 MG (COZAAR) TAB PO SCH (08:04)
[2017-08-05] MEDS: risperiDONE 0.25 MG (RisperDAL) TAB PO SCH (08:05)
[2017-08-05] MEDS: LACTULOSE SYRUP 10GM/15ML (ENULOSE) 30ML UDC PO SCH ×2 (08:05→21:21)
--- NOTE | 2017-08-05 09:03 | Physical Therapy Daily Note ---
PT Daily Note-Current Subjective Pt was lying in bed prior to tx and agreeable to PT. Pt has no reports of pain. She needs to get dressed, bra and lower extremities. Pt was sitting in wheelchair (has OT next) with tray, nurse call, phone, all needs in reach post tx. Pain Numeric Pain Scale: 0-No Pain Location: No Pain Reported Mental Status Patient Orientation: Normal For Age Attachments: Colostomy/Ileostomy, Reynolds Catheter Transfers Functional [place] Measure 0=Not Assessed/NA 4=Minimal Assistance 1=Total Assistance 5=Supervision or Setup 2=Maximal Assistance 6=Modified [place] 3=Moderate Assistance 7=Complete IndependenceIRFPAI Quality Coding Scale 6 Independent with activity with or without an assistive device 5 Patient requires set up or clean up by helper. Patient completes activity by themselves 4 Supervision or touching assist (CGA). [place] provide cues , steadying assist 3 The helper provides less than half the effort to complete the activity 2 The helper provides more than half the effort to complete the activity 1 Dependent. The helper does all the effort to complete an activity 7 Patient refused to complete or attempt activity 9 The patient did not perform the activity before the current illness or injury 88 Not attempted due to Medical conditions or safety concerns Transfers (B, C, W/C) (FIM): 2 Scootin Supine to/from Sit: 3 Sit to/from Stand: 2 Pt is CGA with scooting for safety, mod assist with supine to/from sit, and max assist with sit to stand. Pt requires verbal cues for hand placement and safety. Gait Training Does the Patient Walk?: No and Walking Goal IS indicated Wheelchair Training Does the Pt Use a Wheelchair?: Yes Wheelchair (FIM): 2 Wheelchair Distance: 5=074-88 ft Distance: 50'x2 Wheelchair Level of Assist: 5 Type of Wheelchair: Manual Pt is SBA with wheelchair mobility. Pt uses hands and feet to propel wheelchair. Pt has difficulty picking up feet and has to scoot left leg with wheelchair propulsion. Exercises Seated Therapy Exercises: Long arc quads Seated Reps: 5 (5 min) Standing: Sit to Stand Standing Reps: 15 (3 sets of 5 with rest breaks between) Treatments Pt completes 5 minutes of LAQ for functional LE strengthening, wheelchair training to increase functional mobility and endurance, and 15 sit to stand to increase strength and transfers. Pt requires min assist with sit to stand when using FWW and standing from a mat that is raised high to help assist pt. Pt requires verbal cues with standing for hand placement and safety. Assessment Current Status: Fair Progress Pt is improving with wheelchair mobility and standing. Pts stand pivot transfers have not improved, and remain a max assist, requires verbal cueing to help assist with transfer. PT Short Term Goals Short Term Goals Time Frame: Jul 30, 2017 Transfers (B,C,W/C) (FIM): 3 Gait (FIM): 2 Distance (FIM): 5=831-68 ft Gait Assistive Device: FWW Wheelchair Distance: 50'x2 PT Sheet Metal Worker Maintenance Goals Custodial Goals PT Custodial Goals Time Frame: Aug 13, 2017 Transfers (B,C,W/C) (FIM): 6 Sit to Lying (QC): 6 Lying-Sitting on Side/Bed(QC): 6 Sit to Stand (QC): 6 Rollin Roll Left to Right (QC): 6 Chair/Aub-zu-Nqohy Xfer(QC): 6 Car Transfer (QC): 5 Does the Patient Walk: No and Walking Goal IS indicated Gait (FIM): 6 Gait distance (FIM): 3=150 ft Walk 10 feet (QC): 6 Walk 10ft-Uneven Surface(QC): 6 Walk 50ft with 2 Turns (QC): 6 Walk 150 ft (QC): 6 Gait Level of Assist: 6 Gait Assistive Device: FWW Stairs (FIM): 5 # of Steps: 8 1 Step (curb) (QC): 6 4 Steps (QC): 6 12 Steps (QC): 5 Stairs Level Of Assist: 6 Picking up an Object (QC): 5 PT Plan Problem List Problem List: Activity Tolerance, Functional Strength, Safety, Balance, Gait, Transfer, Bed Mobility, ROM Treatment/Plan Treatment Plan: Continue Plan of Care Treatment Plan: Bed Mobility, Education, Functional Activity Carlos A, Functional Strength, Group Therapy, Gait, Safety, Therapeutic Exercise, Transfers Treatment Duration: Aug 13, 2017 Frequency: At least 5 to 7 days/Wk (IRF) Estimated Hrs Per Day: 1.5 hours per day Patient and/or Family Agrees t: Yes Safety Risks/Education Patient Education: Transfer Techniques, Reviewed Precautions, Correct Positioning, W/C Management, Safety Issues Teaching Recipient: Patient Teaching Methods: Demonstration, Discussion Response to Teaching: Verbalize Understanding, Reinforcement Needed Time/GCodes Time In: 800 Time Out: 900 Total Billed Treatment Time: 60 Total Billed Treatment 1 visit 30 FA 15 EX 15 STEPHANE GUZMAN PT Aug 05, 2017 09:03
--- NOTE | 2017-08-05 09:04 | PM & R (SOAP) Progress Note ---
Subjective Time Seen by Provider: 08:05 Subjective/Events-last exam Patient was seen in her room this AM Appetite improving and eating better WT increasing Patient Mod to max assist for transfers.Current labs and DR Durbin notes and orders appreciated Review of Systems Neurological: Weakness Objective Exam Last Set of Vital Signs Vital Signs Date Time Temp Pulse Resp B/P (MAP) Pulse Ox O2 Delivery O2 Flow Rate FiO2 08/05/17 08:00 98.5 78 18 154/58 98 Room Air Capillary Refill : I&O Intake and Output 08/06/17 00:00 Intake Total 240 ml Output Total 500 ml Balance -260 ml Intake Oral 240 ml Output Urine Total 500 ml General: Alert, No Acute Distress HEENT: Atraumatic, PERRLA, EOMI, Mucous Memb Moist/[place] Neck: Supple, No JVD, Other (trach plugged) Lungs: Normal Air Movement Heart: Regular Rate Abdomen: Normal Bowel Sounds, Soft, No Tenderness, Other ( Peg tube site as per above Colostomy functioning) Skin: Other (LUQ abdomen -- 1.0 x 0.9 x 1.7 cm; 100% slough, mod. s.s. drainage.) Neuro: Other (2/5/strength both lower extremities Sensation intact Cognition intact ST assessing swallow) Other physical findings Reynolds catheter to DD Results Lab Laboratory Tests 08/04/17 11:22: White Blood Count 6.8, Red Blood Count 3.70L, Hemoglobin 10.7L, Hematocrit 34L, Mean Corpuscular Volume 91, Mean Corpuscular Hemoglobin 29, Mean Corpuscular Hemoglobin Concent 32, Red Cell Distribution Width 13.1, Platelet Count 384, Mean Platelet Volume 8.7, Neutrophils (%) (Auto) 67, Lymphocytes (%) (Auto) 24, Monocytes (%) (Auto) 8, Eosinophils (%) (Auto) 0, Basophils (%) (Auto) 0, Neutrophils # (Auto) 4.6, Lymphocytes # (Auto) 1.6, Monocytes # (Auto) 0.5, Eosinophils # (Auto) 0.0, Basophils # (Auto) 0.0, Sodium Level 142, Potassium Level 2.8L, Chloride Level 109H, Carbon Dioxide Level 20L, Anion Gap 13, Blood Urea Nitrogen 7, Creatinine 0.62, Estimat Glomerular Filtration Rate > 60, BUN/ Creatinine Ratio 11, Glucose Level 99, Calcium Level 9.7, Magnesium Level 1.3L, Total Bilirubin 0.3, Aspartate Amino Transf (AST/SGOT) 22, Alanine Aminotransferase (ALT/SGPT) 36, Alkaline Phosphatase 166H, Total Protein 6.0L, Albumin 2.9L Assessment/Plan Assessment 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 consulted re reactive anxiety-Appreciate their note F/U with DR Causey and Nieves kenney Family conference held 07-28-17-See SW note Consult DR García re wound care-See orders.-done appreciate his assistance NEXT tEAM cONFERENCE later today-See report for full functional update and POC and ELOS Patient hopes to go home with family next week. F/U re ABNORMAL LABS as per Hospitalist service . TRIP SIERRA MD Aug 05, 2017 09:04
--- NOTE | 2017-08-05 10:40 | Occupational Ther Daily Note ---
OT Current Status-Daily Note Subjective Pt alert, sitting in w/c in room. Tired from PT, agrees to therapy. Would like to shower, no c/o pain. Mental Status/Objective Patient Orientation: Person, Place, Time, Situation Functional [place] Measure 0=Not Assessed/NA 4=Minimal Assistance 1=Total Assistance 5=Supervision or Setup 2=Maximal Assistance 6=Modified [place] 3=Moderate Assistance 7=Complete [place] Attachments: Colostomy/Ileostomy, Reynolds Catheter ADL-Treatment Functional [place] Measure 0=Not Assessed/NA 4=Minimal Assistance 1=Total Assistance 5=Supervision or Setup 2=Maximal Assistance 6=Modified [place] 3=Moderate Assistance 7=Complete IndependenceIRFPAI Quality Coding Scale 6 Independent with activity with or without an assistive device 5 Patient requires set up or clean up by helper. Patient completes activity by themselves 4 Supervision or touching assist (CGA). [place] provide cues , steadying assist 3 The helper provides less than half the effort to complete the activity 2 The helper provides more than half the effort to complete the activity 1 Dependent. The helper does all the effort to complete an activity 7 Patient refused to complete or attempt activity 9 The patient did not perform the activity before the current illness or injury 88 Not attempted due to Medical conditions or safety concerns Grooming (FIM): 6 (Pt able to sit at sink in w/c and comb hair, brush teeth, and apply deodorant. Pt washes face by self while seated in shower. ) Bathing (FIM): 4 (Pt progressed to washing lower legs while holding grab bar, requiring assistance to get feet dried and leaning side to side to wash buttocks , with close SBA. Able to wash all other areas with supervision. Uses tub bench , grab bars, and handheld shower. ) Bathing Location: L Arm, R Arm, L Upper Leg, R Upper Leg, Chest, Abdomen, Buttocks, Perineal Area Upper Body (FIM): 4 (Pt able to doff shirt after back lifted up. Pt progressed to donning shirt by self and snapping bra in front and donning, with min A to get straps over shoulders. ) Lower Body Dressing (FIM): 2 (Requires assistance to place foot on knee for pt to put underwear over feet. Pt progressed to leaning forward to put pants on with CGA, requiring assistance to get toes into L pantleg. Max A to stand while other therapist pulls pants up. Assitance for donning shoes and socks. ) Transfers (B, C, W/C) (FIM): 2 (Pt requires max A for stand pivot transfer. ) Tub Transfer(FIM): 2 (Pt requires max A to transfer from w/c to tub transfer bench. ) Pt completed shower in ARU shower room with tub transfer bench. Other Treatment After shower, dressing, and grooming pt transferred from w/c to bed with max A. Mod A to scoot and lay down in bed. While sitting up in bed, pt completed peg and pegboard activity by reaching for pegs, placing into designated area, and removing pegs to work on B FM skills and AROM for daily functional tasks. R UE tolerated activity well, L UE required extended time. After therapy, pt sitting in bed with call light and phone in reach. All needs met in room. OT Short Term Goals Short Term Goals Time Frame: Jul 30, 2017 Eating(FIM): 4 Grooming(FIM): 4 Bathing(FIM): 3 Upper Body Dressing(FIM): 3 Lower Body Dressing(FIM): 3 Toileting(FIM): 3 Transfers (B,C,W/C) (FIM): 3 Toilet/Commode Transfer(FIM): 3 Shower Transfer(FIM): 3 Additional Short Term Goals: 1-Demonstrate ADL Tasks, 2-Verbalize Understanding , 3-ImproveStrength/Carlos A 1=Demonstrate adherence to instructed precautions during ADL tasks. 2=Patient will verbalize/demonstrate understanding of assistive devices/ modifications for ADL. 3=Patient will improve strength/tolerance for activity to enable patient to perform ADL's. OT Usp Goals Usp Goals Time Frame: Aug 13, 2017 Eating (FIM): 5 Eating (QC): 5 Groomin Oral Hygiene (QC): 5 Bathing(FIM): 5 Shower/Bathe Self (QC): 4 Upper Body Dressing(FIM): 5 Upper Body Dressing (QC): 4 Lower Body Dressing(FIM): 5 Lower Body Dressing (QC): 4 On/Off Footwear (QC): 4 Toileting(FIM): 5 Toileting Hygiene (QC): 4 Transfers (B,C,W/C) (FIM): 5 Toilet/Commode Transfer(FIM): 5 Toilet/Commode Transfer (QC): 4 Tub Transfer(FIM): 5 Shower Transfer(FIM): 4 Additional Goals: 1-Demonstrate ADL Tasks, 2-Verbalize Understanding, 3- ImproveStrength/Carlos A 1=Demonstrate adherence to instructed precautions during ADL tasks. 2=Patient will verbalize/demonstrate understanding of assistive devices/ modifications for ADL. 3=Patient will improve strength/tolerance for activity to enable patient to perform ADL's. OT Education/Plan Discharge Recommendations Plan/Recommendations: Continue POC Treatment Plan/Plan of Care Patient would benefit from OT for education, treatment and training to promote independence in ADL's, mobility, safety and/or upper extremity function for ADL' s. Plan of Care: ADL Retraining, Caregiver Training, Functional Mobility, Group Exercise/Act as Ind, UE Funct Exercise/Act Treatment Duration: Aug 13, 2017 Frequency: At least 5 to 7 days/Wk (IRF) Estimated Hrs Per Day: 1.5 hours per day Agreement: Yes Rehab Potential: Good Time/GCodes Start Time: 09:00 Stop Time: 10:30 Total Time Billed (hr/min): 90 Billed Treatment Time 1 visit, ADL 5 (70 minutes) FA 1 (20 minutes) LILY INMAN Aug 05, 2017 10:40
[2017-08-05] MEDS: COLLAGENASE 30 GM (SANTYL) TUBE TP SCH ×2 (10:53→21:22)
[2017-08-05] MEDS: ENOXAPARIN 40 MG/0.4 ML (LOVENOX) SYR SC SCH (10:54)
--- NOTE | 2017-08-05 13:37 | Physical Therapy Daily Note ---
PT Daily Note-Current Subjective Pt was laying in bed prior to tx and agreeable to PT. Pt had no reports of pain. Pt was sitting up in bed with nurse call, radha, all needs in reach post tx. Pain Numeric Pain Scale: 0-No Pain Location: No Pain Reported Mental Status Patient Orientation: Normal For Age Attachments: Colostomy/Ileostomy, Reynolds Catheter Transfers Functional [place] Measure 0=Not Assessed/NA 4=Minimal Assistance 1=Total Assistance 5=Supervision or Setup 2=Maximal Assistance 6=Modified [place] 3=Moderate Assistance 7=Complete IndependenceIRFPAI Quality Coding Scale 6 Independent with activity with or without an assistive device 5 Patient requires set up or clean up by helper. Patient completes activity by themselves 4 Supervision or touching assist (CGA). [place] provide cues , steadying assist 3 The helper provides less than half the effort to complete the activity 2 The helper provides more than half the effort to complete the activity 1 Dependent. The helper does all the effort to complete an activity 7 Patient refused to complete or attempt activity 9 The patient did not perform the activity before the current illness or injury 88 Not attempted due to Medical conditions or safety concerns Transfers (B, C, W/C) (FIM): 2 Scootin Supine to/from Sit: 3 Sit to/from Stand: 2 Pt scoots to edge of chair with supervision. Pt requires max assist for sit to stand transfers, requires verbal cues for safety. Gait Training Does the Patient Walk?: No and Walking Goal IS indicated Wheelchair Training Does the Pt Use a Wheelchair?: Yes Wheelchair (FIM): 2 Wheelchair Distance: 3=981-43 ft Distance: 50'x2 Wheelchair Level of Assist: 5 Type of Wheelchair: Manual Pt propels wheelchair using hands and scooting feet. Pt requires supervision for safety and frequent breaks for fatigue. Exercises Seated Therapy Exercises: Long arc quads Seated Reps: 30 Treatments Pt completes LAQ for functional LE strengthening. PT helps pt with stretching hamstrings and heel cords on mat 4 reps x 20 sec hold due to lack of full knee extension with LAQ and ROM was improved after stretching. Pt also completes wheelchair training to increase functional mobility and endurance. Assessment Current Status: Good Progress Pt is improving with bed mobility and wheelchair propulsion. Pt endurance is still weak, and pt requires frequent breaks for fatigue. PT Short Term Goals Short Term Goals Time Frame: Jul 30, 2017 Transfers (B,C,W/C) (FIM): 3 Gait (FIM): 2 Distance (FIM): 3=057-65 ft Gait Assistive Device: FWW Wheelchair Distance: 50'x2 PT Battalion Fire Chief Goals Battalion Fire Chief Goals PT Nursing Home Goals Time Frame: Aug 13, 2017 Transfers (B,C,W/C) (FIM): 6 Sit to Lying (QC): 6 Lying-Sitting on Side/Bed(QC): 6 Sit to Stand (QC): 6 Rollin Roll Left to Right (QC): 6 Chair/Sud-wy-Mwjdh Xfer(QC): 6 Car Transfer (QC): 5 Does the Patient Walk: No and Walking Goal IS indicated Gait (FIM): 6 Gait distance (FIM): 3=150 ft Walk 10 feet (QC): 6 Walk 10ft-Uneven Surface(QC): 6 Walk 50ft with 2 Turns (QC): 6 Walk 150 ft (QC): 6 Gait Level of Assist: 6 Gait Assistive Device: FWW Stairs (FIM): 5 # of Steps: 8 1 Step (curb) (QC): 6 4 Steps (QC): 6 12 Steps (QC): 5 Stairs Level Of Assist: 6 Picking up an Object (QC): 5 PT Plan Problem List Problem List: Activity Tolerance, Functional Strength, Safety, Balance, Gait, Transfer, Bed Mobility, ROM Treatment/Plan Treatment Plan: Continue Plan of Care Treatment Plan: Bed Mobility, Education, Functional Activity Carlos A, Functional Strength, Group Therapy, Gait, Safety, Therapeutic Exercise, Transfers Treatment Duration: Aug 13, 2017 Frequency: At least 5 to 7 days/Wk (IRF) Estimated Hrs Per Day: 1.5 hours per day Patient and/or Family Agrees t: Yes Safety Risks/Education Patient Education: Transfer Techniques, Reviewed Precautions, Correct Positioning, W/C Management, Safety Issues Teaching Recipient: Patient Teaching Methods: Demonstration Response to Teaching: Verbalize Understanding, Reinforcement Needed Time/GCodes Time In: 1300 Time Out: 1330 Total Billed Treatment Time: 30 Total Billed Treatment 1 visit 15 EX 15 [facility] G Codes Necessary: HARMAN Jackson PLUGGER Aug 05, 2017 13:37
[2017-08-05 18:00] VITALS: BP 170/73
[2017-08-05] MEDS: POLYETHYLENE GLYCOL 17 GM (MIRALAX) PACK PO SCH (19:51)
[2017-08-06 05:11] VITALS: BP 156/72
[2017-08-06] MEDS: LEVOTHYROXINE 100 MCG (LEVOTHROID) TAB PO SCH (06:12)
[2017-08-06] MEDS: PANTOPRAZOLE 20 MG TABLET (PROTONIX) PO SCH (06:12)
[2017-08-06] MEDS: KCL 8 MEQ (MICRO K) TABLET PO SCH (06:12)
[2017-08-06] MEDS: predniSONE 1 MG TAB PO SCH (06:12)
[2017-08-06] MEDS: PROPAFENONE 150 MG (RYTHMOL) TABLET PO SCH ×3 (06:12→21:17)
[2017-08-06] MEDS: ASPIRIN E.C. 81 MG (ECOTRIN) TAB PO SCH (07:59)
[2017-08-06] MEDS: MAGNESIUM OXIDE (MAG-OX)400 MG TAB PO SCH ×2 (07:59→17:37)
[2017-08-06] MEDS: buPROPion SR 150 MG (WELLBUTRIN SR) TAB PO SCH (08:00)
[2017-08-06] MEDS: risperiDONE 0.25 MG (RisperDAL) TAB PO SCH (08:00)
[2017-08-06] MEDS: LOSARTAN 50 MG (COZAAR) TAB PO SCH (08:00)
[2017-08-06] MEDS: SENNA W/DOCUSATE (SENOKOT S) TABLET PO SCH ×2 (08:00→21:16)
[2017-08-06] MEDS: LACTULOSE SYRUP 10GM/15ML (ENULOSE) 30ML UDC PO SCH ×2 (08:00→21:16)
[2017-08-06] MEDS: ALPRAZolam 0.5 MG (XANAX) TAB PO SCH ×3 (08:00→21:16)
[2017-08-06] MEDS: COLLAGENASE 30 GM (SANTYL) TUBE TP SCH ×2 (08:02→21:16)
--- NOTE | 2017-08-06 08:42 | PM & R (SOAP) Progress Note ---
Subjective Time Seen by Provider: 08:00 Subjective/Events-last exam Patient was seen in her room this AM Patient Mod to max assist for transfers Discussed case with RN Patient awaiting F/U with DR Nieves HDZ re Reynolds catheter removal. Objective Exam Last Set of Vital Signs Vital Signs Date Time Temp Pulse Resp B/P (MAP) Pulse Ox O2 Delivery O2 Flow Rate FiO2 08/06/17 05:11 97.8 73 16 156/72 98 Room Air Capillary Refill : I&O Intake and Output 08/07/17 00:00 Intake Total 240 ml Output Total 700 ml Balance -460 ml Intake Oral 240 ml Output Urine Total 700 ml General: Alert, No Acute Distress HEENT: Atraumatic, PERRLA, EOMI, Mucous Memb Moist/[place] Neck: Supple, No JVD, Other (trach plugged) Lungs: Normal Air Movement Heart: Regular Rate Abdomen: Normal Bowel Sounds, Soft, No Tenderness, Other ( Peg tube site as per above Colostomy functioning) Skin: Other (LUQ abdomen -- 1.0 x 0.9 x 1.7 cm; 100% slough, mod. s.s. drainage.) Neuro: Other (2/5/strength both lower extremities Sensation intact Cognition intact ST assessing swallow) Results Lab Laboratory Tests 08/04/17 11:22: White Blood Count 6.8, Red Blood Count 3.70L, Hemoglobin 10.7L, Hematocrit 34L, Mean Corpuscular Volume 91, Mean Corpuscular Hemoglobin 29, Mean Corpuscular Hemoglobin Concent 32, Red Cell Distribution Width 13.1, Platelet Count 384, Mean Platelet Volume 8.7, Neutrophils (%) (Auto) 67, Lymphocytes (%) (Auto) 24, Monocytes (%) (Auto) 8, Eosinophils (%) (Auto) 0, Basophils (%) (Auto) 0, Neutrophils # (Auto) 4.6, Lymphocytes # (Auto) 1.6, Monocytes # (Auto) 0.5, Eosinophils # (Auto) 0.0, Basophils # (Auto) 0.0, Sodium Level 142, Potassium Level 2.8L, Chloride Level 109H, Carbon Dioxide Level 20L, Anion Gap 13, Blood Urea Nitrogen 7, Creatinine 0.62, Estimat Glomerular Filtration Rate > 60, BUN/ Creatinine Ratio 11, Glucose Level 99, Calcium Level 9.7, Magnesium Level 1.3L, Total Bilirubin 0.3, Aspartate Amino Transf (AST/SGOT) 22, Alanine Aminotransferase (ALT/SGPT) 36, Alkaline Phosphatase 166H, Total Protein 6.0L, Albumin 2.9L Assessment/Plan Assessment Crtical illness myopathy S/P trach now decannulkated DR Causey S/P Peg tube removal with area of breakdown-DR García has addressed S/P colostomy for perforated bowel DR Ng HTN Chronic constipation Elevated LFTS Hypercalcemia-IMPROVED Hypomagnesemia-RECEIVING REPLACEMENT hYPOKALEMIA ON REPLACEMENT Urinary retention -Reynolds reinserted and to remain in for now DVT prophylaxis Heparin switched to Lovenox SUBCUT [place] both arms DR Cosby following Plan Continue PT/OT/ST/Wound care/Reynolds catheter care F/U with DR Pickett re Reynolds catheter removal [place] [facility] consulted re reactive anxiety-Appreciate their note F/U with DR Whitney prrosangela Family conference held 07-28-17-See SW note Consult DR García re wound care-See orders.-done appreciate his assistance TEAM cONFERENCE held yesterday-See report for full functional update and POC and ELOS Patient hopes to go home with family next week. Discharge set tentatively for next Thursday07-12-17 F/U re ABNORMAL LABS as per Hospitalist service . TRIP SIERRA MD Aug 06, 2017 08:42
--- NOTE | 2017-08-06 09:07 | Physical Therapy Daily Note ---
PT Daily Note-Current Subjective Pt laying Supine in bed upon arrival. Pt agrees to PT despite fatigue from not sleeping well last night. Pain Location: No Pain Reported Mental Status Patient Orientation: Person, Place, Situation Attachments: Colostomy/Ileostomy, Reynolds Catheter Pt reports feeling very tired today due to not sleeping well last night. Transfers Functional [place] Measure 0=Not Assessed/NA 4=Minimal Assistance 1=Total Assistance 5=Supervision or Setup 2=Maximal Assistance 6=Modified [place] 3=Moderate Assistance 7=Complete IndependenceIRFPAI Quality Coding Scale 6 Independent with activity with or without an assistive device 5 Patient requires set up or clean up by helper. Patient completes activity by themselves 4 Supervision or touching assist (CGA). [place] provide cues , steadying assist 3 The helper provides less than half the effort to complete the activity 2 The helper provides more than half the effort to complete the activity 1 Dependent. The helper does all the effort to complete an activity 7 Patient refused to complete or attempt activity 9 The patient did not perform the activity before the current illness or injury 88 Not attempted due to Medical conditions or safety concerns Scootin Rollin Roll Left to Right (QC): 3 Supine to/from Sit: 3 Sit to/from Stand: 2 Sit to Lying (QC): 3 Sit to Stand (QC): 2 Weight Bearing Weight Bearing Restriction: Full Weight Bearing Location Restriction: LE Bilateral Wheelchair Training Does the Pt Use a Wheelchair?: Yes Exercises Supine Ex: Ankle pumps, Quad Set, Heel Slides, Scooting, Straight leg raise, Hip abd/add Supine Reps: 20 Treatments Pt completes Supine Ex in bed due to fatigue. Pt then asked to have Colon. bag changed due to filling up. Pt also requested to change into clothes since seeing OT next and trying to get to [facility] if any time left for tx. Pt transfers Supine to EOB at Mod A then EOB to standing at Max A. Pt needs to rest after doffing clothes before standing again to don them. Pt rests at EOB after dressing when OT arrives. Pt has all needs met at end of tx. Assessment Current Status: Fair Progress Pt didn't sleep well so fatigued during tx, even hard to hold head up. PT Short Term Goals Short Term Goals Time Frame: Jul 30, 2017 Transfers (B,C,W/C) (FIM): 3 Gait (FIM): 2 Distance (FIM): 7=876-55 ft Gait Assistive Device: FWW Wheelchair Distance: 50'x2 PT Cargo Broker Goals Long-Term Goals PT Long-Term Goals Time Frame: Aug 13, 2017 Transfers (B,C,W/C) (FIM): 6 Sit to Lying (QC): 6 Lying-Sitting on Side/Bed(QC): 6 Sit to Stand (QC): 6 Rollin Roll Left to Right (QC): 6 Chair/Rze-ey-Lrjlw Xfer(QC): 6 Car Transfer (QC): 5 Does the Patient Walk: No and Walking Goal IS indicated Gait (FIM): 6 Gait distance (FIM): 3=150 ft Walk 10 feet (QC): 6 Walk 10ft-Uneven Surface(QC): 6 Walk 50ft with 2 Turns (QC): 6 Walk 150 ft (QC): 6 Gait Level of Assist: 6 Gait Assistive Device: FWW Stairs (FIM): 5 # of Steps: 8 1 Step (curb) (QC): 6 4 Steps (QC): 6 12 Steps (QC): 5 Stairs Level Of Assist: 6 Picking up an Object (QC): 5 PT Plan Problem List Problem List: Activity Tolerance, Functional Strength, Safety, Balance, Gait, Transfer, Bed Mobility Treatment/Plan Treatment Plan: Continue Plan of Care Treatment Plan: Bed Mobility, Education, Functional Activity Carlos A, Functional Strength, Group Therapy, Gait, Safety, Therapeutic Exercise, Transfers Treatment Duration: Aug 13, 2017 Frequency: At least 5 to 7 days/Wk (IRF) Estimated Hrs Per Day: 1.5 hours per day Patient and/or Family Agrees t: Yes Safety Risks/Education Patient Education: Transfer Techniques, Correct Positioning, Disease Process, Safety Issues Teaching Recipient: Patient Teaching Methods: Discussion Response to Teaching: Verbalize Understanding Time/GCodes Time In: 800 Time Out: 900 Total Billed Treatment Time: 60 Total Billed Treatment visit, EX X2 (30m) & FA x2 (30m) RAMANDEEP CARR PTA Aug 06, 2017 09:07
[2017-08-06 09:51] VITALS: BP 166/69
[2017-08-06] MEDS: ENOXAPARIN 40 MG/0.4 ML (LOVENOX) SYR SC SCH (10:51)
--- NOTE | 2017-08-06 10:51 | Occupational Ther Daily Note ---
OT Current Status-Daily Note Subjective Pt alert, sitting in bed. Reports she is upset and had a bad night. Agrees to therapy. No c/o pain. Mental Status/Objective Patient Orientation: Person, Place, Time, Situation Functional [place] Measure 0=Not Assessed/NA 4=Minimal Assistance 1=Total Assistance 5=Supervision or Setup 2=Maximal Assistance 6=Modified [place] 3=Moderate Assistance 7=Complete [place] Attachments: Colostomy/Ileostomy, Reynolds Catheter ADL-Treatment Functional [place] Measure 0=Not Assessed/NA 4=Minimal Assistance 1=Total Assistance 5=Supervision or Setup 2=Maximal Assistance 6=Modified [place] 3=Moderate Assistance 7=Complete IndependenceIRFPAI Quality Coding Scale 6 Independent with activity with or without an assistive device 5 Patient requires set up or clean up by helper. Patient completes activity by themselves 4 Supervision or touching assist (CGA). [place] provide cues , steadying assist 3 The helper provides less than half the effort to complete the activity 2 The helper provides more than half the effort to complete the activity 1 Dependent. The helper does all the effort to complete an activity 7 Patient refused to complete or attempt activity 9 The patient did not perform the activity before the current illness or injury 88 Not attempted due to Medical conditions or safety concerns Eating (FIM): 5 (Pt attempts on own but requires assistance opening small packet and sprite can. Pt has built up spoon but is able to use regular fork and knife to spread, cut, and feed self. ) Grooming (FIM): 6 (Pt is able to comb hair while seated. ) Other Treatment Pt is transported outside in w/. Completes activities with cones and maier bags to increase dynamic sitting balance, core strength, and B UE AROM. Pt leans to side to pick cones off ground to place on other side. Pt tosses maier bags with R UE into basket then tosses them to knock over cones. Pt then completes peg and pegboard activity to increase FM strength and coordination and UE AROM. Pt reaches for pegs and places into designated area and then takes out with each hand. Pt transported back to room in w/c. Pt transfers from w/c to EOB with max A, and EOB to supine with mod A. After therapy, pt sitting up in bed with phone and call light in reach. All needs met. OT Short Term Goals Short Term Goals Time Frame: Jul 30, 2017 Eating(FIM): 4 Grooming(FIM): 4 Bathing(FIM): 3 Upper Body Dressing(FIM): 3 Lower Body Dressing(FIM): 3 Toileting(FIM): 3 Transfers (B,C,W/C) (FIM): 3 Toilet/Commode Transfer(FIM): 3 Shower Transfer(FIM): 3 Additional Short Term Goals: 1-Demonstrate ADL Tasks, 2-Verbalize Understanding , 3-ImproveStrength/Carlos A 1=Demonstrate adherence to instructed precautions during ADL tasks. 2=Patient will verbalize/demonstrate understanding of assistive devices/ modifications for ADL. 3=Patient will improve strength/tolerance for activity to enable patient to perform ADL's. OT Long-Term Goals Ladies Suit Operator Goals Time Frame: Aug 13, 2017 Eating (FIM): 5 Eating (QC): 5 Groomin Oral Hygiene (QC): 5 Bathing(FIM): 5 Shower/Bathe Self (QC): 4 Upper Body Dressing(FIM): 5 Upper Body Dressing (QC): 4 Lower Body Dressing(FIM): 5 Lower Body Dressing (QC): 4 On/Off Footwear (QC): 4 Toileting(FIM): 5 Toileting Hygiene (QC): 4 Transfers (B,C,W/C) (FIM): 5 Toilet/Commode Transfer(FIM): 5 Toilet/Commode Transfer (QC): 4 Tub Transfer(FIM): 5 Shower Transfer(FIM): 4 Additional Goals: 1-Demonstrate ADL Tasks, 2-Verbalize Understanding, 3- ImproveStrength/Carlos A 1=Demonstrate adherence to instructed precautions during ADL tasks. 2=Patient will verbalize/demonstrate understanding of assistive devices/ modifications for ADL. 3=Patient will improve strength/tolerance for activity to enable patient to perform ADL's. OT Education/Plan Discharge Recommendations Plan/Recommendations: Continue POC Treatment Plan/Plan of Care Patient would benefit from OT for education, treatment and training to promote independence in ADL's, mobility, safety and/or upper extremity function for ADL' s. Plan of Care: ADL Retraining, Caregiver Training, Functional Mobility, Group Exercise/Act as Ind, UE Funct Exercise/Act Treatment Duration: Aug 13, 2017 Frequency: At least 5 of 7 days/Wk (IRF) Estimated Hrs Per Day: 1.5 hours per day Agreement: Yes Rehab Potential: Good Time/GCodes Start Time: 09:00 Stop Time: 10:30 Total Time Billed (hr/min): 90 Billed Treatment Time 1 visit, ADL 2 (30 minutes) FA 4 (60 minutes) LILY INMAN Aug 06, 2017 10:51
[2017-08-06 13:47] VITALS: BP 148/68
--- NOTE | 2017-08-06 14:49 | Progress Note-Hospitalist ---
Subjective HPI/CC On Admission Time Seen by Provider: 13:45 Subjective/Events-last exam Reports feeling well today. No complaints. Discussed with RN. Green removed today and per nurse patient quite anxious about voiding. Objective Exam Vital Signs Vital Sign - Last 12Hours 07/31/17 05:00 Temp 97.9 Pulse 77 Resp 20 B/P (MAP) 146/67 Pulse Ox 99 O2 Delivery Room Air Capillary Refill : General Appearance: No Apparent Distress, WD/WN Respiratory: Chest Non Tender, Lungs Clear Cardiovascular: Regular Rate, Rhythm, No Edema Gastrointestinal: Normal Bowel Sounds, Non Tender, Soft, Other (colostomy in place) Neurologic/Psychiatric: Alert, Oriented x3 Assessment/Plan Assessment and Plan Assess & Plan/Chief Complaint 1. Severe deconditioning following severe illness (diverticular disease perforation and multiple abdominal abscesses sustaining and colostomy slowly improving) Therapy per Rehab team 2. Low-dose prednisone considering hypertension and earlier high random cortisol will continue slow taper milligram per week until off - Continue on current dose 3. Urinary retention - green removed today per Dr. Pickett, will monitor UOP 4. Hypercalcemia - Repeat CMP in AM 5. Hypokalemia Repeat CMP in AM after starting potassium supplement DEON RM MD Aug 06, 2017 14:49
--- NOTE | 2017-08-06 14:59 | Physical Therapy Daily Note ---
PT Daily Note-Current Subjective Pt laying upright in bed upon arrival. Pt agrees to PT. 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 Pt is a little anxious now that Reynolds is removed. Transfers Functional [place] Measure 0=Not Assessed/NA 4=Minimal Assistance 1=Total Assistance 5=Supervision or Setup 2=Maximal Assistance 6=Modified [place] 3=Moderate Assistance 7=Complete IndependenceIRFPAI Quality Coding Scale 6 Independent with activity with or without an assistive device 5 Patient requires set up or clean up by helper. Patient completes activity by themselves 4 Supervision or touching assist (CGA). [place] provide cues , steadying assist 3 The helper provides less than half the effort to complete the activity 2 The helper provides more than half the effort to complete the activity 1 Dependent. The helper does all the effort to complete an activity 7 Patient refused to complete or attempt activity 9 The patient did not perform the activity before the current illness or injury 88 Not attempted due to Medical conditions or safety concerns Scootin Rollin Roll Left to Right (QC): 3 Supine to/from Sit: 3 Sit to/from Stand: 2 Sit to Stand (QC): 2 Chair/Ylb-la-Sqcnt Xfer(QC): 2 Bed to/from Chair: 2 Weight Bearing Weight Bearing Restriction: Full Weight Bearing Location Restriction: LE Bilateral Wheelchair Training Does the Pt Use a Wheelchair?: Yes Exercises Seated Therapy Exercises: Sit to stand Treatments Pt practiced transfer training from Supine to EOB to standing then SPT to recliner. Pt rested in recliner at end of tx with all needs met. Assessment Current Status: Fair Progress Pt tries and is motivated to get better although still struggles with overall weakness. PT Short Term Goals Short Term Goals Time Frame: Jul 30, 2017 Transfers (B,C,W/C) (FIM): 3 Gait (FIM): 2 Distance (FIM): 3=167-51 ft Gait Assistive Device: FWW Wheelchair Distance: 50'x2 PT Snf Goals Snf Goals PT Linux Admin Engineer Goals Time Frame: Aug 13, 2017 Transfers (B,C,W/C) (FIM): 6 Sit to Lying (QC): 6 Lying-Sitting on Side/Bed(QC): 6 Sit to Stand (QC): 6 Rollin Roll Left to Right (QC): 6 Chair/Lzh-nj-Tvnrq Xfer(QC): 6 Car Transfer (QC): 5 Does the Patient Walk: No and Walking Goal IS indicated Gait (FIM): 6 Gait distance (FIM): 3=150 ft Walk 10 feet (QC): 6 Walk 10ft-Uneven Surface(QC): 6 Walk 50ft with 2 Turns (QC): 6 Walk 150 ft (QC): 6 Gait Level of Assist: 6 Gait Assistive Device: FWW Stairs (FIM): 5 # of Steps: 8 1 Step (curb) (QC): 6 4 Steps (QC): 6 12 Steps (QC): 5 Stairs Level Of Assist: 6 Picking up an Object (QC): 5 PT Plan Problem List Problem List: Activity Tolerance, Functional Strength, Safety, Balance, Gait, Transfer, Bed Mobility Treatment/Plan Treatment Plan: Continue Plan of Care Treatment Plan: Bed Mobility, Education, Functional Activity Carlos A, Functional Strength, Group Therapy, Gait, Safety, Therapeutic Exercise, Transfers Treatment Duration: Aug 13, 2017 Frequency: At least 5 of 7 days/Wk (IRF) Estimated Hrs Per Day: 1.5 hours per day Patient and/or Family Agrees t: Yes Safety Risks/Education Patient Education: Transfer Techniques, Correct Positioning, Safety Issues Teaching Recipient: Patient Teaching Methods: Discussion Response to Teaching: Verbalize Understanding Time/GCodes Time In: 1300 Time Out: 1330 Total Billed Treatment Time: 30 Total Billed Treatment visit, FA x2 (30m) RAMANDEEP CARR PTA Aug 06, 2017 14:59
[2017-08-06 18:04] VITALS: BP 155/66
[2017-08-06] MEDS: POLYETHYLENE GLYCOL 17 GM (MIRALAX) PACK PO SCH (21:16)
[2017-08-07 05:00] VITALS: BP 169/78
[2017-08-07 05:29] LABS: BASOPHILS % (AUTO) 1 % (0-10); EOSINOPHILS # (AUTO) 0.1 10^3/uL (0.0-0.3); EOSINOPHILS % (AUTO) 1 % (0-10); LYMPHOCYTES # (AUTO) 1.7 X 10^3 (1.0-4.0); LYMPHOCYTES % (AUTO) 27 % (12-44); MEAN CORPUSCULAR HEMOGLOBIN 30 PG (25-34); MEAN CORPUSCULAR HGB CONC 32 G/DL (32-36); MEAN CORPUSCULAR VOLUME 91 FL (80-99); MONOCYTES # (AUTO) 0.5 X 10^3 (0.0-1.0); MONOCYTES % (AUTO) 8 % (0-12); NEUTROPHILS # (AUTO) 3.9 X 10^3 (1.8-7.8); NEUTROPHILS % (AUTO) 63 % (42-75); PLATELET COUNT 371 10^3/uL (130-400); RED BLOOD COUNT 3.42 10^6/uL (4.35-5.85); RED CELL DISTRIBUTION WIDTH 13.1 % (10.0-14.5); WHITE BLOOD COUNT 6.2 10^3/uL (4.3-11.0)
[2017-08-07 05:47] LABS: ALANINE AMINOTRANSFERASE 30 U/L (0-55); ALBUMIN 2.7 GM/DL (3.2-4.5); ANION GAP 13 MMOL/L (5-14); ASPARTATE AMINO TRANSFERASE 21 U/L (5-34); BILIRUBIN,TOTAL 0.2 MG/DL (0.1-1.0); BLOOD UREA NITROGEN 6 MG/DL (7-18); BUN/CREATININE RATIO 10; CALCIUM 9.4 MG/DL (8.5-10.1); CARBON DIOXIDE 23 MMOL/L (21-32); CHLORIDE 108 MMOL/L (98-107); CREATININE SERUM 0.62 MG/DL (0.60-1.30); GFR ESTIMATED > 60; GLUCOSE 83 MG/DL (70-105); POTASSIUM 2.7 MMOL/L (3.6-5.0); SODIUM 144 MMOL/L (135-145); TOTAL PROTEIN 5.4 GM/DL (6.4-8.2)
[2017-08-07] MEDS: PROPAFENONE 150 MG (RYTHMOL) TABLET PO SCH ×3 (06:30→20:18)
[2017-08-07] MEDS: LEVOTHYROXINE 100 MCG (LEVOTHROID) TAB PO SCH (06:31)
[2017-08-07] MEDS: KCL 8 MEQ (MICRO K) TABLET PO SCH (06:31)
[2017-08-07] MEDS: predniSONE 1 MG TAB PO SCH (06:31)
[2017-08-07] MEDS: PANTOPRAZOLE 20 MG TABLET (PROTONIX) PO SCH (06:31)
[2017-08-07 08:23] VITALS: BP 152/80
[2017-08-07] MEDS: MAGNESIUM OXIDE (MAG-OX)400 MG TAB PO SCH ×2 (08:25→17:08)
[2017-08-07] MEDS: LOSARTAN 50 MG (COZAAR) TAB PO SCH (08:25)
[2017-08-07] MEDS: buPROPion SR 150 MG (WELLBUTRIN SR) TAB PO SCH (08:25)
[2017-08-07] MEDS: ALPRAZolam 0.5 MG (XANAX) TAB PO SCH ×3 (08:25→20:18)
[2017-08-07] MEDS: SENNA W/DOCUSATE (SENOKOT S) TABLET PO SCH ×2 (08:25→20:18)
[2017-08-07] MEDS: LACTULOSE SYRUP 10GM/15ML (ENULOSE) 30ML UDC PO SCH ×2 (08:26→20:00)
[2017-08-07] MEDS: ASPIRIN E.C. 81 MG (ECOTRIN) TAB PO SCH (08:26)
[2017-08-07] MEDS: risperiDONE 0.25 MG (RisperDAL) TAB PO SCH (08:26)
--- NOTE | 2017-08-07 08:52 | Progress Note-Urology ---
Progress Note-Urology Progress Notes/Assess & Plan Progress/Assessment & Plan VOIDING ON HER OWN. NO PVR. CONTINUE SAME. SEE HER PRN Final Diagnosis URINE RETENTION JOSE WALTON MD Aug 07, 2017 8:52 am
[2017-08-07 09:10] VITALS: BP 156/77
[2017-08-07] MEDS: COLLAGENASE 30 GM (SANTYL) TUBE TP SCH ×2 (10:13→20:19)
[2017-08-07] MEDS: ENOXAPARIN 40 MG/0.4 ML (LOVENOX) SYR SC SCH (10:14)
--- NOTE | 2017-08-07 10:31 | Physical Therapy Daily Note ---
PT Daily Note-Current Subjective Pt. states she feels she has made significant progress but is so very tired today. Pt. emotional and states she really needs to have time at home and would like to have a pass for Thursday to be at home for a short period of time Pain Numeric Pain Scale: 0-No Pain Mental Status Patient Orientation: Normal For Age Attachments: Colostomy/Ileostomy Transfers Functional [place] Measure 0=Not Assessed/NA 4=Minimal Assistance 1=Total Assistance 5=Supervision or Setup 2=Maximal Assistance 6=Modified [place] 3=Moderate Assistance 7=Complete IndependenceIRFPAI Quality Coding Scale 6 Independent with activity with or without an assistive device 5 Patient requires set up or clean up by helper. Patient completes activity by themselves 4 Supervision or touching assist (CGA). [place] provide cues , steadying assist 3 The helper provides less than half the effort to complete the activity 2 The helper provides more than half the effort to complete the activity 1 Dependent. The helper does all the effort to complete an activity 7 Patient refused to complete or attempt activity 9 The patient did not perform the activity before the current illness or injury 88 Not attempted due to Medical conditions or safety concerns Transfers (B, C, W/C) (FIM): 2 Scootin Rollin Supine to/from Sit: 3 Sit to/from Stand: 2 Bed to/from Chair: 2 introduced and practiced slide board this date as pt may encounter an incident at home when she may need to TRF on her own or with someone not as strong as her daughter. Pt. demonstrated ability with min assist and liked and understood the concept etc. Gait Training Distance (FIM): 0=does not occure Wheelchair Training Does the Pt Use a Wheelchair?: Yes Wheelchair (FIM): 3 Wheelchair Distance: 4=229-68 ft Wheelchair Level of Assist: 3 (needs ASSIST FOR BRAKING on at least one side) Type of Wheelchair: Manual Exercises Supine Ex: Bridging, Ankle pumps, Quad Set, Rolling, Glut sets, Heel Slides, Short Arc Quads, Scooting, Straight leg raise (assist), Hip abd/add (assist) Seated Therapy Exercises: Ankle pumps, Sit to stand, Long arc quads, Hip flexion Seated Reps: 10 Treatments perching at edge of high low table, wt shift bottom to feet etc Assessment Current Status: Good Progress pt. states she feels better emotionally after a visit home and feels it is a shot in the arm for her over all PT Short Term Goals Short Term Goals Time Frame: Jul 30, 2017 Transfers (B,C,W/C) (FIM): 3 Gait (FIM): 2 Distance (FIM): 3=055-02 ft Gait Assistive Device: FWW Wheelchair Distance: 50'x2 PT [facility] Goals [facility] Goals PT Sound Effects Technician Goals Time Frame: Aug 13, 2017 Transfers (B,C,W/C) (FIM): 6 Sit to Lying (QC): 6 Lying-Sitting on Side/Bed(QC): 6 Sit to Stand (QC): 6 Rollin Roll Left to Right (QC): 6 Chair/Qsm-le-Teivm Xfer(QC): 6 Car Transfer (QC): 5 Does the Patient Walk: No and Walking Goal IS indicated Gait (FIM): 6 Gait distance (FIM): 3=150 ft Walk 10 feet (QC): 6 Walk 10ft-Uneven Surface(QC): 6 Walk 50ft with 2 Turns (QC): 6 Walk 150 ft (QC): 6 Gait Level of Assist: 6 Gait Assistive Device: FWW Stairs (FIM): 5 # of Steps: 8 1 Step (curb) (QC): 6 4 Steps (QC): 6 12 Steps (QC): 5 Stairs Level Of Assist: 6 Picking up an Object (QC): 5 PT Plan Treatment/Plan Treatment Plan: Continue Plan of Care Treatment Plan: Bed Mobility, Education, Functional Activity Carlos A, Functional Strength, Group Therapy, Gait, Safety, Therapeutic Exercise, Transfers Treatment Duration: Aug 13, 2017 Frequency: At least 5 of 7 days/Wk (IRF) Estimated Hrs Per Day: 1.5 hours per day Patient and/or Family Agrees t: Yes Safety Risks/Education Patient Education: Transfer Techniques, Correct Positioning, W/C Management, Safety Issues Teaching Recipient: Patient Teaching Methods: Demonstration, Discussion Response to Teaching: Verbalize Understanding, Return Demonstration, Reinforcement Needed Time/GCodes Time In: 930 Time Out: 1030 Total Billed Treatment Time: 60 Total Billed Treatment 1,EX25m,wc 15m,FA20m G Codes Necessary: No HARMAN XIONG TURKEY FARMER Aug 07, 2017 10:31
--- NOTE | 2017-08-07 11:03 | Occupational Ther Daily Note ---
OT Current Status-Daily Note Subjective Pt alert, sitting in bed. Agrees to therapy. Pt felt dizzy throughout therapy, checked BP after shower: 156/77 reported to nrs. Mental Status/Objective Patient Orientation: Person, Place, Time, Situation Functional [place] Measure 0=Not Assessed/NA 4=Minimal Assistance 1=Total Assistance 5=Supervision or Setup 2=Maximal Assistance 6=Modified [place] 3=Moderate Assistance 7=Complete [place] Attachments: Colostomy/Ileostomy ADL-Treatment Functional [place] Measure 0=Not Assessed/NA 4=Minimal Assistance 1=Total Assistance 5=Supervision or Setup 2=Maximal Assistance 6=Modified [place] 3=Moderate Assistance 7=Complete IndependenceIRFPAI Quality Coding Scale 6 Independent with activity with or without an assistive device 5 Patient requires set up or clean up by helper. Patient completes activity by themselves 4 Supervision or touching assist (CGA). [place] provide cues , steadying assist 3 The helper provides less than half the effort to complete the activity 2 The helper provides more than half the effort to complete the activity 1 Dependent. The helper does all the effort to complete an activity 7 Patient refused to complete or attempt activity 9 The patient did not perform the activity before the current illness or injury 88 Not attempted due to Medical conditions or safety concerns Grooming (FIM): 6 (Pt able to brush teeth and comb hair while seated at sink. Pt washes faced while seated in shower. ) Bathing (FIM): 4 (Pt able to wash all areas of body while seated on tub bench using grab bars. Requires min A to dry bottom of feet. ) Bathing Location: L Arm, R Arm, L Upper Leg, R Upper Leg, Chest, Abdomen, Buttocks, Perineal Area Upper Body (FIM): 4 (Pt requires assistance to manipulate bra around body and straps over shoulders. Pt don & doffs shirt by self. ) Lower Body Dressing (FIM): 2 (While standing with assistance, pt is able to pull down pants. While seated, pt able to doff underwear and pants by self. Requires assistance doffing socks. Requires max A to stand while other therapist pulls up pants. Assistance to don socks and shoes. ) Transfers (B, C, W/C) (FIM): 2 (Max A for stand pivot transfer. ) Shower Transfer(FIM): 2 (Max A for transferring onto tub bench. ) Pt had catheter removed, up several times in night to use restroom. Pt feels tired and weak and c/o dizziness throughout therapy, resulting in an increase in help needed with some ADLs. Other Treatment Pt transported to therapy gym in w/c. Completes arm bike duration 10 minutes at minimal resistance requiring several rest breaks to increase strength, AROM, and activity tolerance. Pt then completed theraputty activity by removing beads from putty, then rolling out putty to replace beads and rolling back up to increase FM skills and strength for daily functional tasks. After therapy, pt in therapy gym in care of PT. All needs met. OT Short Term Goals Short Term Goals Time Frame: Jul 30, 2017 Eating(FIM): 4 Grooming(FIM): 4 Bathing(FIM): 3 Upper Body Dressing(FIM): 3 Lower Body Dressing(FIM): 3 Toileting(FIM): 3 Transfers (B,C,W/C) (FIM): 3 Toilet/Commode Transfer(FIM): 3 Shower Transfer(FIM): 3 Additional Short Term Goals: 1-Demonstrate ADL Tasks, 2-Verbalize Understanding , 3-ImproveStrength/Carlos A 1=Demonstrate adherence to instructed precautions during ADL tasks. 2=Patient will verbalize/demonstrate understanding of assistive devices/ modifications for ADL. 3=Patient will improve strength/tolerance for activity to enable patient to perform ADL's. OT Nursing Home Goals Smelter Liner Goals Time Frame: Aug 13, 2017 Eating (FIM): 5 Eating (QC): 5 Groomin Oral Hygiene (QC): 5 Bathing(FIM): 5 Shower/Bathe Self (QC): 4 Upper Body Dressing(FIM): 5 Upper Body Dressing (QC): 4 Lower Body Dressing(FIM): 5 Lower Body Dressing (QC): 4 On/Off Footwear (QC): 4 Toileting(FIM): 5 Toileting Hygiene (QC): 4 Transfers (B,C,W/C) (FIM): 5 Toilet/Commode Transfer(FIM): 5 Toilet/Commode Transfer (QC): 4 Tub Transfer(FIM): 5 Shower Transfer(FIM): 4 Additional Goals: 1-Demonstrate ADL Tasks, 2-Verbalize Understanding, 3- ImproveStrength/Carlos A 1=Demonstrate adherence to instructed precautions during ADL tasks. 2=Patient will verbalize/demonstrate understanding of assistive devices/ modifications for ADL. 3=Patient will improve strength/tolerance for activity to enable patient to perform ADL's. OT Education/Plan Discharge Recommendations Plan/Recommendations: Continue POC Treatment Plan/Plan of Care Patient would benefit from OT for education, treatment and training to promote independence in ADL's, mobility, safety and/or upper extremity function for ADL' s. Plan of Care: ADL Retraining, Caregiver Training, Functional Mobility, Group Exercise/Act as Ind, UE Funct Exercise/Act Treatment Duration: Aug 13, 2017 Frequency: At least 5 of 7 days/Wk (IRF) Estimated Hrs Per Day: 1.5 hours per day Agreement: Yes Rehab Potential: Good Time/GCodes Start Time: 08:00 Stop Time: 09:30 Total Time Billed (hr/min): 90 Billed Treatment Time 1 visit, ADL 4 (60 minutes) EX 1 (15 minutes) FA 1 (15 minutes) LILY INMAN Aug 07, 2017 11:03
--- NOTE | 2017-08-07 13:35 | Physical Therapy Daily Note ---
PT Daily Note-Current Subjective c/o fatigue, ready for bed Pain Numeric Pain Scale: 0-No Pain Mental Status Patient Orientation: Normal For Age Transfers Functional [place] Measure 0=Not Assessed/NA 4=Minimal Assistance 1=Total Assistance 5=Supervision or Setup 2=Maximal Assistance 6=Modified [place] 3=Moderate Assistance 7=Complete IndependenceIRFPAI Quality Coding Scale 6 Independent with activity with or without an assistive device 5 Patient requires set up or clean up by helper. Patient completes activity by themselves 4 Supervision or touching assist (CGA). [place] provide cues , steadying assist 3 The helper provides less than half the effort to complete the activity 2 The helper provides more than half the effort to complete the activity 1 Dependent. The helper does all the effort to complete an activity 7 Patient refused to complete or attempt activity 9 The patient did not perform the activity before the current illness or injury 88 Not attempted due to Medical conditions or safety concerns max assist sit to stand and SPT w/c to bed and for sit to stands Wheelchair Training w/c mobility 100ft x 3 indep with cues. Exercises Supine Ex: Bridging, Ankle pumps, Quad Set, Rolling, Heel Slides, Hip abd/add Supine Reps: 15 Assessment Current Status: Good Progress PT Short Term Goals Short Term Goals Time Frame: Jul 30, 2017 Transfers (B,C,W/C) (FIM): 3 Gait (FIM): 2 Distance (FIM): 4=048-62 ft Gait Assistive Device: FWW Wheelchair Distance: 50'x2 PT Half-Way Goals Scientific Director Goals PT Half-Way Goals Time Frame: Aug 13, 2017 Transfers (B,C,W/C) (FIM): 6 Sit to Lying (QC): 6 Lying-Sitting on Side/Bed(QC): 6 Sit to Stand (QC): 6 Rollin Roll Left to Right (QC): 6 Chair/Ygq-ej-Vcvvj Xfer(QC): 6 Car Transfer (QC): 5 Does the Patient Walk: No and Walking Goal IS indicated Gait (FIM): 6 Gait distance (FIM): 3=150 ft Walk 10 feet (QC): 6 Walk 10ft-Uneven Surface(QC): 6 Walk 50ft with 2 Turns (QC): 6 Walk 150 ft (QC): 6 Gait Level of Assist: 6 Gait Assistive Device: FWW Stairs (FIM): 5 # of Steps: 8 1 Step (curb) (QC): 6 4 Steps (QC): 6 12 Steps (QC): 5 Stairs Level Of Assist: 6 Picking up an Object (QC): 5 PT Plan Treatment/Plan Treatment Plan: Continue Plan of Care Treatment Plan: Bed Mobility, Education, Functional Activity Carlos A, Functional Strength, Group Therapy, Gait, Safety, Therapeutic Exercise, Transfers Treatment Duration: Aug 13, 2017 Frequency: At least 5 of 7 days/Wk (IRF) Estimated Hrs Per Day: 1.5 hours per day Patient and/or Family Agrees t: Yes Safety Risks/Education Patient Education: Transfer Techniques, Correct Positioning, W/C Management, Disease Process, Safety Issues Teaching Recipient: Patient Teaching Methods: Demonstration, Discussion Response to Teaching: Verbalize Understanding, Return Demonstration, Reinforcement Needed Time/GCodes Time In: 1300 Time Out: 1330 Total Billed Treatment Time: 30 Total Billed Treatment 1,FA15,EX15 G Codes Necessary: HARMAN Jackson PTA Aug 07, 2017 13:35
[2017-08-07] MEDS ORDERED: KCL 20 MEQ TAB (K-DUR) PO NR (17:15)
[2017-08-07 19:33] VITALS: BP 169/72
[2017-08-07] MEDS: POLYETHYLENE GLYCOL 17 GM (MIRALAX) PACK PO SCH (20:00)
[2017-08-08 05:00] VITALS: BP 167/76
[2017-08-08] MEDS: KCL 8 MEQ (MICRO K) TABLET PO SCH (06:15)
[2017-08-08] MEDS: PANTOPRAZOLE 20 MG TABLET (PROTONIX) PO SCH (06:15)
[2017-08-08] MEDS: PROPAFENONE 150 MG (RYTHMOL) TABLET PO SCH ×3 (06:15→21:14)
[2017-08-08] MEDS: predniSONE 1 MG TAB PO SCH (06:15)
[2017-08-08] MEDS: LEVOTHYROXINE 100 MCG (LEVOTHROID) TAB PO SCH (06:15)
[2017-08-08] MEDS: LOSARTAN 50 MG (COZAAR) TAB PO SCH (08:04)
[2017-08-08] MEDS: SENNA W/DOCUSATE (SENOKOT S) TABLET PO SCH ×2 (08:04→21:14)
[2017-08-08] MEDS: risperiDONE 0.25 MG (RisperDAL) TAB PO SCH (08:04)
[2017-08-08] MEDS: ASPIRIN E.C. 81 MG (ECOTRIN) TAB PO SCH (08:04)
[2017-08-08] MEDS: MAGNESIUM OXIDE (MAG-OX)400 MG TAB PO SCH ×2 (08:04→17:11)
[2017-08-08] MEDS: buPROPion SR 150 MG (WELLBUTRIN SR) TAB PO SCH (08:04)
[2017-08-08] MEDS: ALPRAZolam 0.5 MG (XANAX) TAB PO SCH ×3 (08:04→21:14)
[2017-08-08] MEDS: COLLAGENASE 30 GM (SANTYL) TUBE TP SCH ×2 (08:05→21:14)
[2017-08-08] MEDS: LACTULOSE SYRUP 10GM/15ML (ENULOSE) 30ML UDC PO SCH ×2 (08:08→20:42)
[2017-08-08] MEDS: ENOXAPARIN 40 MG/0.4 ML (LOVENOX) SYR SC SCH (09:13)
--- NOTE | 2017-08-08 10:32 | Physical Therapy Daily Note ---
PT Daily Note-Current Subjective Pt. agrees to Rx. Looking forward to her home pass for Thursday. Pain Numeric Pain Scale: 0-No Pain Mental Status Patient Orientation: Normal For Age Attachments: Colostomy/Ileostomy Transfers Functional [place] Measure 0=Not Assessed/NA 4=Minimal Assistance 1=Total Assistance 5=Supervision or Setup 2=Maximal Assistance 6=Modified [place] 3=Moderate Assistance 7=Complete IndependenceIRFPAI Quality Coding Scale 6 Independent with activity with or without an assistive device 5 Patient requires set up or clean up by helper. Patient completes activity by themselves 4 Supervision or touching assist (CGA). [place] provide cues , steadying assist 3 The helper provides less than half the effort to complete the activity 2 The helper provides more than half the effort to complete the activity 1 Dependent. The helper does all the effort to complete an activity 7 Patient refused to complete or attempt activity 9 The patient did not perform the activity before the current illness or injury 88 Not attempted due to Medical conditions or safety concerns Transfers (B, C, W/C) (FIM): 2 Scootin Rollin Supine to/from Sit: 3 Sit to/from Stand: 2 Wheelchair Training Does the Pt Use a Wheelchair?: Yes Wheelchair (FIM): 2 Wheelchair Distance: 8=480-01 ft (100x2) Wheelchair Level of Assist: 4 Type of Wheelchair: Manual slow as LEs are weak with poor control Exercises Supine Ex: Bridging, Ankle pumps, Quad Set, Rolling, Glut sets, Heel Slides, Short Arc Quads, Straight leg raise (w assist), Hip abd/add (w assist) Supine Reps: 12 Seated Therapy Exercises: Ankle pumps, Long arc quads Seated Reps: 12 Treatments emphasis on sit to stand , short stance period as pt is weak and fatigues and on TRFs and w/c mobility Assessment Current Status: Good Progress PT Short Term Goals Short Term Goals Time Frame: Jul 30, 2017 Transfers (B,C,W/C) (FIM): 3 Gait (FIM): 2 Distance (FIM): 4=810-93 ft Gait Assistive Device: FWW Wheelchair Distance: 50'x2 PT Fast Food Supervisor Goals Intermediate Goals PT Intermediate Goals Time Frame: Aug 13, 2017 Transfers (B,C,W/C) (FIM): 6 Sit to Lying (QC): 6 Lying-Sitting on Side/Bed(QC): 6 Sit to Stand (QC): 6 Rollin Roll Left to Right (QC): 6 Chair/Wpu-xn-Pjgdx Xfer(QC): 6 Car Transfer (QC): 5 Does the Patient Walk: No and Walking Goal IS indicated Gait (FIM): 6 Gait distance (FIM): 3=150 ft Walk 10 feet (QC): 6 Walk 10ft-Uneven Surface(QC): 6 Walk 50ft with 2 Turns (QC): 6 Walk 150 ft (QC): 6 Gait Level of Assist: 6 Gait Assistive Device: FWW Stairs (FIM): 5 # of Steps: 8 1 Step (curb) (QC): 6 4 Steps (QC): 6 12 Steps (QC): 5 Stairs Level Of Assist: 6 Picking up an Object (QC): 5 PT Plan Treatment/Plan Treatment Plan: Continue Plan of Care Treatment Plan: Bed Mobility, Education, Functional Activity Carlos A, Functional Strength, Group Therapy, Gait, Safety, Therapeutic Exercise, Transfers Treatment Duration: Aug 13, 2017 Frequency: At least 5 of 7 days/Wk (IRF) Estimated Hrs Per Day: 1.5 hours per day Patient and/or Family Agrees t: Yes Safety Risks/Education Patient Education: Transfer Techniques, Correct Positioning, Safety Issues Teaching Recipient: Patient Teaching Methods: Demonstration, Discussion Response to Teaching: Verbalize Understanding, Return Demonstration, Reinforcement Needed Time/GCodes Time In: 915 Time Out: 940 Total Billed Treatment Time: 25 Total Billed Treatment 1,EX10,FA15m G Codes Necessary: No HARMAN XIONG HUMAN RESOURCES LEADER Aug 08, 2017 10:32
[2017-08-08 17:12] VITALS: BP 169/79
[2017-08-08] MEDS: POLYETHYLENE GLYCOL 17 GM (MIRALAX) PACK PO SCH (20:42)
[2017-08-09 06:00] VITALS: BP 179/96
[2017-08-09] MEDS: KCL 8 MEQ (MICRO K) TABLET PO SCH (06:04)
[2017-08-09] MEDS: LEVOTHYROXINE 100 MCG (LEVOTHROID) TAB PO SCH (06:04)
[2017-08-09] MEDS: predniSONE 1 MG TAB PO SCH (06:04)
[2017-08-09] MEDS: PANTOPRAZOLE 20 MG TABLET (PROTONIX) PO SCH (06:04)
[2017-08-09] MEDS: PROPAFENONE 150 MG (RYTHMOL) TABLET PO SCH ×3 (06:05→21:23)
[2017-08-09] MEDS: LOSARTAN 50 MG (COZAAR) TAB PO SCH (08:25)
[2017-08-09] MEDS: SENNA W/DOCUSATE (SENOKOT S) TABLET PO SCH ×2 (08:26→20:34)
[2017-08-09] MEDS: MAGNESIUM OXIDE (MAG-OX)400 MG TAB PO SCH ×2 (08:26→17:52)
[2017-08-09] MEDS: buPROPion SR 150 MG (WELLBUTRIN SR) TAB PO SCH (08:26)
[2017-08-09] MEDS: COLLAGENASE 30 GM (SANTYL) TUBE TP SCH ×2 (08:26→20:43)
[2017-08-09] MEDS: ALPRAZolam 0.5 MG (XANAX) TAB PO SCH ×3 (08:26→20:34)
[2017-08-09] MEDS: risperiDONE 0.25 MG (RisperDAL) TAB PO SCH (08:26)
[2017-08-09] MEDS: LACTULOSE SYRUP 10GM/15ML (ENULOSE) 30ML UDC PO SCH ×2 (08:27→20:33)
[2017-08-09] MEDS: ASPIRIN E.C. 81 MG (ECOTRIN) TAB PO SCH (08:29)
[2017-08-09] MEDS: ENOXAPARIN 40 MG/0.4 ML (LOVENOX) SYR SC SCH (08:31)
[2017-08-09 09:15] VITALS: BP 166/78
[2017-08-09 20:31] VITALS: BP 150/71
[2017-08-09] MEDS: POLYETHYLENE GLYCOL 17 GM (MIRALAX) PACK PO SCH (20:33)
[2017-08-10 05:41] VITALS: BP 168/76
[2017-08-10] MEDS: KCL 8 MEQ (MICRO K) TABLET PO SCH (06:29)
[2017-08-10] MEDS: LEVOTHYROXINE 100 MCG (LEVOTHROID) TAB PO SCH (06:29)
[2017-08-10] MEDS: PANTOPRAZOLE 20 MG TABLET (PROTONIX) PO SCH (06:29)
[2017-08-10] MEDS: predniSONE 1 MG TAB PO SCH (06:29)
[2017-08-10] MEDS: PROPAFENONE 150 MG (RYTHMOL) TABLET PO SCH ×3 (06:33→21:13)
[2017-08-10] MEDS: risperiDONE 0.25 MG (RisperDAL) TAB PO SCH (08:06)
[2017-08-10] MEDS: buPROPion SR 150 MG (WELLBUTRIN SR) TAB PO SCH (08:06)
[2017-08-10] MEDS: ASPIRIN E.C. 81 MG (ECOTRIN) TAB PO SCH (08:06)
[2017-08-10] MEDS: ALPRAZolam 0.5 MG (XANAX) TAB PO SCH ×3 (08:06→21:13)
[2017-08-10] MEDS: MAGNESIUM OXIDE (MAG-OX)400 MG TAB PO SCH ×2 (08:06→17:11)
[2017-08-10] MEDS: LOSARTAN 50 MG (COZAAR) TAB PO SCH (08:06)
[2017-08-10] MEDS: SENNA W/DOCUSATE (SENOKOT S) TABLET PO SCH ×2 (08:07→21:13)
[2017-08-10] MEDS: LACTULOSE SYRUP 10GM/15ML (ENULOSE) 30ML UDC PO SCH ×2 (08:07→21:13)
[2017-08-10] MEDS: COLLAGENASE 30 GM (SANTYL) TUBE TP SCH ×2 (08:11→21:13)
--- NOTE | 2017-08-10 08:59 | Occupational Ther Daily Note ---
OT Current Status-Daily Note Subjective Pt alert, sitting in bed. Agrees to therapy, wants to take shower. No c/o pain. Mental Status/Objective Patient Orientation: Person, Place, Time, Situation Functional [place] Measure 0=Not Assessed/NA 4=Minimal Assistance 1=Total Assistance 5=Supervision or Setup 2=Maximal Assistance 6=Modified [place] 3=Moderate Assistance 7=Complete [place] Attachments: Colostomy/Ileostomy ADL-Treatment After therapy, pt sitting in w/c with call light in reach. All needs met. Functional [place] Measure 0=Not Assessed/NA 4=Minimal Assistance 1=Total Assistance 5=Supervision or Setup 2=Maximal Assistance 6=Modified [place] 3=Moderate Assistance 7=Complete IndependenceIRFPAI Quality Coding Scale 6 Independent with activity with or without an assistive device 5 Patient requires set up or clean up by helper. Patient completes activity by themselves 4 Supervision or touching assist (CGA). [place] provide cues , steadying assist 3 The helper provides less than half the effort to complete the activity 2 The helper provides more than half the effort to complete the activity 1 Dependent. The helper does all the effort to complete an activity 7 Patient refused to complete or attempt activity 9 The patient did not perform the activity before the current illness or injury 88 Not attempted due to Medical conditions or safety concerns Grooming (FIM): 6 (Pt able to brush teeth and comb hair while seated at sink. Washes face in shower while seated. ) Bathing (FIM): 4 (Pt able to wash and dry body by self with assitance needed to dry bottom of feet. Using tub bench, grab bars, and handheld shower. ) Bathing Location: L Arm, R Arm, L Upper Leg, R Upper Leg, Chest, Abdomen, Buttocks, Perineal Area Upper Body (FIM): 4 (Pt able to doff shirt and bra by self. Requires min A to manipulate bra around body and straps over shoulders. Dons shirt by self. ) Lower Body Dressing (FIM): 2 (Max A to stand while other therapist pulls down pants. While seated, pt able to doff underwear and pants by self. Requires assistance doffing socks. Max A to stand while pt attempts to pull pants up, requiring assistance from other therapist. Assistance to don socks and shoes. ) Toileting (FIM): 3 (Max A to stand while other therapist pulls pants up/down. Able to complete hygiene by self. ) Transfers (B, C, W/C) (FIM): 2 (Max A for stand pivot transfer. ) Toilet/Commode Transfer (FIM): 2 (Max A for stand pivot transfer from EOB to BSC.) Shower Transfer(FIM): 2 (Max A for stand pivot transfer from w/c to tub transfer bench. Then assist to lift legs into/out of tub.) OT Short Term Goals Short Term Goals Time Frame: Jul 30, 2017 Eating(FIM): 4 Grooming(FIM): 4 Bathing(FIM): 3 Upper Body Dressing(FIM): 3 Lower Body Dressing(FIM): 3 Toileting(FIM): 3 Transfers (B,C,W/C) (FIM): 3 Toilet/Commode Transfer(FIM): 3 Shower Transfer(FIM): 3 Additional Short Term Goals: 1-Demonstrate ADL Tasks, 2-Verbalize Understanding , 3-ImproveStrength/Carlos A 1=Demonstrate adherence to instructed precautions during ADL tasks. 2=Patient will verbalize/demonstrate understanding of assistive devices/ modifications for ADL. 3=Patient will improve strength/tolerance for activity to enable patient to perform ADL's. OT Inside Sales Account Executive Goals Prison Goals Time Frame: Aug 13, 2017 Eating (FIM): 5 Eating (QC): 5 Groomin Oral Hygiene (QC): 5 Bathing(FIM): 5 Shower/Bathe Self (QC): 4 Upper Body Dressing(FIM): 5 Upper Body Dressing (QC): 4 Lower Body Dressing(FIM): 5 Lower Body Dressing (QC): 4 On/Off Footwear (QC): 4 Toileting(FIM): 5 Toileting Hygiene (QC): 4 Transfers (B,C,W/C) (FIM): 5 Toilet/Commode Transfer(FIM): 5 Toilet/Commode Transfer (QC): 4 Tub Transfer(FIM): 5 Shower Transfer(FIM): 4 Additional Goals: 1-Demonstrate ADL Tasks, 2-Verbalize Understanding, 3- ImproveStrength/Carlos A 1=Demonstrate adherence to instructed precautions during ADL tasks. 2=Patient will verbalize/demonstrate understanding of assistive devices/ modifications for ADL. 3=Patient will improve strength/tolerance for activity to enable patient to perform ADL's. OT Education/Plan Discharge Recommendations Plan/Recommendations: Continue POC Treatment Plan/Plan of Care Patient would benefit from OT for education, treatment and training to promote independence in ADL's, mobility, safety and/or upper extremity function for ADL' s. Plan of Care: ADL Retraining, Caregiver Training, Functional Mobility, Group Exercise/Act as Ind, UE Funct Exercise/Act Treatment Duration: Aug 13, 2017 Frequency: At least 5 of 7 days/Wk (IRF) Estimated Hrs Per Day: 1.5 hours per day Agreement: Yes Rehab Potential: Good Time/GCodes Start Time: 08:00 Stop Time: 09:00 Total Time Billed (hr/min): 60 Billed Treatment Time 1 visit, ADL 4 (60 minutes) LILY INMAN Aug 10, 2017 08:59
[2017-08-10] MEDS: ENOXAPARIN 40 MG/0.4 ML (LOVENOX) SYR SC SCH (09:56)
--- NOTE | 2017-08-10 10:01 | Physical Therapy Daily Note ---
PT Daily Note-Current Subjective Pt. states she was home for a few hours on the weekend. States her was attempting a toilet TRF and pts knees melted and she needed MAX assist and had to totally lift her. Pt. states she feels much safer using a slide board for TRFs when she isnt moving well and knows this offers her more indep and would make TRFs much safer with her family in home environment Pain Numeric Pain Scale: 0-No Pain Mental Status Patient Orientation: Normal For Age Attachments: Colostomy/Ileostomy Transfers Functional [place] Measure 0=Not Assessed/NA 4=Minimal Assistance 1=Total Assistance 5=Supervision or Setup 2=Maximal Assistance 6=Modified [place] 3=Moderate Assistance 7=Complete IndependenceIRFPAI Quality Coding Scale 6 Independent with activity with or without an assistive device 5 Patient requires set up or clean up by helper. Patient completes activity by themselves 4 Supervision or touching assist (CGA). [place] provide cues , steadying assist 3 The helper provides less than half the effort to complete the activity 2 The helper provides more than half the effort to complete the activity 1 Dependent. The helper does all the effort to complete an activity 7 Patient refused to complete or attempt activity 9 The patient did not perform the activity before the current illness or injury 88 Not attempted due to Medical conditions or safety concerns Transfers (B, C, W/C) (FIM): 2 Scootin Rollin Supine to/from Sit: 4 Sit to/from Stand: 2 slide board TRFs x3 trials with min assist to place board as well as min assist at gait belt. This is a safe TRF with pt. using LEs and UEs and requires much less assist of caregiver, until pt. gains strength and control in LEs Gait Training Does the Patient Walk?: No and Walking Goal NOT indicated Wheelchair Training Does the Pt Use a Wheelchair?: Yes Wheelchair (FIM): 3 Wheelchair Distance: 3=150 ft (125,150) Wheelchair Level of Assist: 3 Type of Wheelchair: Manual needs assist to lock brakes, tried extended brakes this AM with min success Stair Training pt. has ramp at home and will require max assist up and down this in w/c Exercises Supine Ex: Bridging, Ankle pumps, Quad Set, Rolling, Glut sets, Heel Slides, Short Arc Quads, Scooting, Straight leg raise (assist), Hip abd/add (CGA) Treatments sit to stand x4 in parallel bars with max assist, once on feet requires mod assist and can stand 30 s x3, very fatiguing and needs cues for breathing and to utilize gluts and quads and triceps Assessment Current Status: Good Progress has visited home several times with family having good success managing her care there. Pt. is non ambulatory and will require a w/c with drop back arm rest , swing away leg rests and a slide board. HC PT is recommended likely 5x/week PT Short Term Goals Short Term Goals Time Frame: Jul 30, 2017 Transfers (B,C,W/C) (FIM): 3 Gait (FIM): 2 Distance (FIM): 4=867-94 ft Gait Assistive Device: FWW Wheelchair Distance: 50'x2 PT Long-Term Goals Long-Term Goals PT Product Safety Officer Goals Time Frame: Aug 13, 2017 Transfers (B,C,W/C) (FIM): 6 Sit to Lying (QC): 6 Lying-Sitting on Side/Bed(QC): 6 Sit to Stand (QC): 6 Rollin Roll Left to Right (QC): 6 Chair/Paz-ar-Ujpjr Xfer(QC): 6 Car Transfer (QC): 5 Does the Patient Walk: No and Walking Goal IS indicated Gait (FIM): 6 Gait distance (FIM): 3=150 ft Walk 10 feet (QC): 6 Walk 10ft-Uneven Surface(QC): 6 Walk 50ft with 2 Turns (QC): 6 Walk 150 ft (QC): 6 Gait Level of Assist: 6 Gait Assistive Device: FWW Stairs (FIM): 5 # of Steps: 8 1 Step (curb) (QC): 6 4 Steps (QC): 6 12 Steps (QC): 5 Stairs Level Of Assist: 6 Picking up an Object (QC): 5 PT Plan Treatment/Plan Treatment Plan: Continue Plan of Care Treatment Plan: Bed Mobility, Education, Functional Activity Carlos A, Functional Strength, Group Therapy, Gait, Safety, Therapeutic Exercise, Transfers Treatment Duration: Aug 13, 2017 Frequency: At least 5 of 7 days/Wk (IRF) Estimated Hrs Per Day: 1.5 hours per day Patient and/or Family Agrees t: Yes Safety Risks/Education Patient Education: Transfer Techniques, Correct Positioning, W/C Management, Disease Process, Safety Issues Teaching Recipient: Patient Teaching Methods: Demonstration, Discussion Response to Teaching: Verbalize Understanding, Return Demonstration, Reinforcement Needed Time/GCodes Time In: 900 Time Out: 1000 Total Billed Treatment Time: 60 Total Billed Treatment 1,FA25m,WC15,EX20m G Codes Necessary: HARMAN Jackson OSCILLOGRAPH TECHNICIAN Aug 10, 2017 10:01
--- NOTE | 2017-08-10 11:34 | Physical Therapy Daily Note ---
PT Daily Note-Current Subjective Pt. comments that she has come a very long way but has so far to go still. Pain Numeric Pain Scale: 0-No Pain Mental Status Patient Orientation: Normal For Age Transfers Functional [place] Measure 0=Not Assessed/NA 4=Minimal Assistance 1=Total Assistance 5=Supervision or Setup 2=Maximal Assistance 6=Modified [place] 3=Moderate Assistance 7=Complete IndependenceIRFPAI Quality Coding Scale 6 Independent with activity with or without an assistive device 5 Patient requires set up or clean up by helper. Patient completes activity by themselves 4 Supervision or touching assist (CGA). [place] provide cues , steadying assist 3 The helper provides less than half the effort to complete the activity 2 The helper provides more than half the effort to complete the activity 1 Dependent. The helper does all the effort to complete an activity 7 Patient refused to complete or attempt activity 9 The patient did not perform the activity before the current illness or injury 88 Not attempted due to Medical conditions or safety concerns practiced sup to sit and sit to sup with newly learned technique of using UEs to bring knee to chest and pt. is then indep with sit to sup. with sup to sit pt. still needed min assist and utilizes the bed rail as well. Does this TRF in stages with rest periods that are short Exercises Supine Ex: Bridging, Ankle pumps, Quad Set, Rolling, Glut sets, Heel Slides, Short Arc Quads, Scooting, Straight leg raise (assist), Hip abd/add Supine Reps: 15 Assessment Current Status: Good Progress PT Short Term Goals Short Term Goals Time Frame: Jul 30, 2017 Transfers (B,C,W/C) (FIM): 3 Gait (FIM): 2 Distance (FIM): 1=438-77 ft Gait Assistive Device: FWW Wheelchair Distance: 50'x2 PT Senior Living Goals Senior Living Goals PT Dietary Aide Teacher Goals Time Frame: Aug 13, 2017 Transfers (B,C,W/C) (FIM): 6 Sit to Lying (QC): 6 Lying-Sitting on Side/Bed(QC): 6 Sit to Stand (QC): 6 Rollin Roll Left to Right (QC): 6 Chair/Cbf-uv-Vbndz Xfer(QC): 6 Car Transfer (QC): 5 Does the Patient Walk: No and Walking Goal IS indicated Gait (FIM): 6 Gait distance (FIM): 3=150 ft Walk 10 feet (QC): 6 Walk 10ft-Uneven Surface(QC): 6 Walk 50ft with 2 Turns (QC): 6 Walk 150 ft (QC): 6 Gait Level of Assist: 6 Gait Assistive Device: FWW Stairs (FIM): 5 # of Steps: 8 1 Step (curb) (QC): 6 4 Steps (QC): 6 12 Steps (QC): 5 Stairs Level Of Assist: 6 Picking up an Object (QC): 5 PT Plan Treatment/Plan Treatment Plan: Continue Plan of Care Treatment Plan: Bed Mobility, Education, Functional Activity Carlos A, Functional Strength, Group Therapy, Gait, Safety, Therapeutic Exercise, Transfers Treatment Duration: Aug 13, 2017 Frequency: At least 5 of 7 days/Wk (IRF) Estimated Hrs Per Day: 1.5 hours per day Patient and/or Family Agrees t: Yes Safety Risks/Education Patient Education: Transfer Techniques Teaching Recipient: Patient Teaching Methods: Demonstration, Discussion Response to Teaching: Verbalize Understanding, Return Demonstration, Reinforcement Needed practiced knee to chest sit to sup technique Time/GCodes Time In: 1100 Time Out: 1130 Total Billed Treatment Time: 30 Total Billed Treatment 1,FA10m,EX20m G Codes Necessary: HARMAN Jackson ENROLLMENT ELIGIBILITY REPRESENTATIVE Aug 10, 2017 11:34
--- NOTE | 2017-08-10 13:11 | Occupational Ther Daily Note ---
OT Current Status-Daily Note Subjective Pt alert, lying in bed. Agrees to therapy, no c/o pain. Mental Status/Objective Patient Orientation: Person, Place, Time, Situation Functional [place] Measure 0=Not Assessed/NA 4=Minimal Assistance 1=Total Assistance 5=Supervision or Setup 2=Maximal Assistance 6=Modified [place] 3=Moderate Assistance 7=Complete [place] Attachments: Colostomy/Ileostomy ADL-Treatment Functional [place] Measure 0=Not Assessed/NA 4=Minimal Assistance 1=Total Assistance 5=Supervision or Setup 2=Maximal Assistance 6=Modified [place] 3=Moderate Assistance 7=Complete IndependenceIRFPAI Quality Coding Scale 6 Independent with activity with or without an assistive device 5 Patient requires set up or clean up by helper. Patient completes activity by themselves 4 Supervision or touching assist (CGA). [place] provide cues , steadying assist 3 The helper provides less than half the effort to complete the activity 2 The helper provides more than half the effort to complete the activity 1 Dependent. The helper does all the effort to complete an activity 7 Patient refused to complete or attempt activity 9 The patient did not perform the activity before the current illness or injury 88 Not attempted due to Medical conditions or safety concerns Toileting (FIM): 3 (With assistance standing, pt is able to pull pants down. Completes hygiene by self. Assistance to stand while pt attempts to pull pants up, requiring help. Sitting on regular toilet using grab bars. ) Toilet/Commode Transfer (FIM): 2 (Pt requires max A for stand pivot transfer from w/c to regular toilet seat. ) Other Treatment Pt transferred supine to sit EOB with mod A. Pt transferred to w/c using sliding board with SBA after set up of w/c and reminders for board positioning and locking brakes. Pt transported in w/c to ARU shower room where educated on tub transfers using sliding board. Pt completed transfer from w/c to tub transfer bench and back using sliding board with SBA and set up. Dycem used to keep board from slipping on bench. Pt was transported back to room in w/c. After therapy, pt sitting in recliner with phone and call light in reach. All needs met. Education OT Patient Education: Transfer techniques Teaching Recipient: Patient Teaching Methods: Demonstration, Discussion Response to Teaching: Verbalize Understanding, Return Demonstration OT Short Term Goals Short Term Goals Time Frame: Jul 30, 2017 Eating(FIM): 4 Grooming(FIM): 4 Bathing(FIM): 3 Upper Body Dressing(FIM): 3 Lower Body Dressing(FIM): 3 Toileting(FIM): 3 Transfers (B,C,W/C) (FIM): 3 Toilet/Commode Transfer(FIM): 3 Shower Transfer(FIM): 3 Additional Short Term Goals: 1-Demonstrate ADL Tasks, 2-Verbalize Understanding , 3-ImproveStrength/Carlos A 1=Demonstrate adherence to instructed precautions during ADL tasks. 2=Patient will verbalize/demonstrate understanding of assistive devices/ modifications for ADL. 3=Patient will improve strength/tolerance for activity to enable patient to perform ADL's. OT Usp Goals Usp Goals Time Frame: Aug 13, 2017 Eating (FIM): 5 Eating (QC): 5 Groomin Oral Hygiene (QC): 5 Bathing(FIM): 5 Shower/Bathe Self (QC): 4 Upper Body Dressing(FIM): 5 Upper Body Dressing (QC): 4 Lower Body Dressing(FIM): 5 Lower Body Dressing (QC): 4 On/Off Footwear (QC): 4 Toileting(FIM): 5 Toileting Hygiene (QC): 4 Transfers (B,C,W/C) (FIM): 5 Toilet/Commode Transfer(FIM): 5 Toilet/Commode Transfer (QC): 4 Tub Transfer(FIM): 5 Shower Transfer(FIM): 4 Additional Goals: 1-Demonstrate ADL Tasks, 2-Verbalize Understanding, 3- ImproveStrength/Carlos A 1=Demonstrate adherence to instructed precautions during ADL tasks. 2=Patient will verbalize/demonstrate understanding of assistive devices/ modifications for ADL. 3=Patient will improve strength/tolerance for activity to enable patient to perform ADL's. OT Education/Plan Discharge Recommendations Plan/Recommendations: Continue POC Treatment Plan/Plan of Care Patient would benefit from OT for education, treatment and training to promote independence in ADL's, mobility, safety and/or upper extremity function for ADL' s. Plan of Care: ADL Retraining, Caregiver Training, Functional Mobility, Group Exercise/Act as Ind, UE Funct Exercise/Act Treatment Duration: Aug 13, 2017 Frequency: At least 5 of 7 days/Wk (IRF) Estimated Hrs Per Day: 1.5 hours per day Agreement: Yes Rehab Potential: Good Time/GCodes Start Time: 11:30 Stop Time: 12:00 Total Time Billed (hr/min): 30 Billed Treatment Time 1 visit, FA 2 (30 minutes) LILY INMAN Aug 10, 2017 13:11
[2017-08-10 17:32] VITALS: BP 168/63
[2017-08-10] MEDS: POLYETHYLENE GLYCOL 17 GM (MIRALAX) PACK PO SCH (21:13)
--- NOTE | 2017-08-10 21:20 | PM & R (SOAP) Progress Note ---
Subjective Time Seen by Provider: 20:05 Subjective/Events-last exam Patient was seen in her room this evening Patients transfers gradually improving Patient has very supportive family Trach site well healed Appreciate DR Clay Note Reynolds catheter out and patient voiding Patient can Ankle dorsiflex and plantarflex .Systolic BP elevated Defer to Hospitalist re RX { atient without CP,BRIGGS or dizziness. Objective Exam Last Set of Vital Signs Vital Signs Date Time Temp Pulse Resp B/P (MAP) Pulse Ox O2 Delivery O2 Flow Rate FiO2 08/10/17 19:36 Room Air 08/10/17 17:32 97.2 76 18 168/63 99 Capillary Refill : I&O Intake and Output 08/11/17 00:00 Intake Total 1292 ml Balance 1292 ml Intake Oral 1292 ml # Voids 5 # Bowel Movements 1 General: Alert, No Acute Distress HEENT: Atraumatic, PERRLA, EOMI, Mucous Memb Moist/[place] Neck: Supple, No JVD, Other (trach plugged) Lungs: Normal Air Movement Heart: Regular Rate Abdomen: Normal Bowel Sounds, Soft, No Tenderness, Other ( Peg tube site as per above Colostomy functioning) Skin: Other (LUQ abdomen -- 1.0 x 0.9 x 1.7 cm; 100% slough, mod. s.s. drainage.) Neuro: Other (2/5/strength both lower extremities Sensation intact Cognition intact ST assessing swallow) Assessment/Plan Assessment Crtical illness myopathy S/P trach now decannulkated DR Causey S/P Peg tube removal with area of breakdown-DR García has addressed S/P colostomy for perforated bowel DR Ng HTN Chronic constipation Elevated LFTS Hypercalcemia-IMPROVED Hypomagnesemia-RECEIVING REPLACEMENT hYPOKALEMIA ON REPLACEMENT Urinary retention -Reynolds now out and patient voiding voluntarily DVT prophylaxis Heparin switched to Lovenox SUBCUT [place] both arms DR Cosby following Plan Continue PT/OT/ST/Wound care Monitor for any urinary retention [place] [facility] consulted re reactive anxiety-Appreciate their note F/U with DR Whitney prn Family conference held 07-28-17-See SW note Consult DR García re wound care-See orders.-done appreciate his assistanc Patient hopes to go home with family next week. Discharge set tentatively for this 8-13-17 F/U re ABNORMAL LABS as per Hospitalist service F/U with Hospitalist re elevated Syslolic BP . TRIP SIERRA MD Aug 10, 2017 21:20
[2017-08-11 06:00] VITALS: BP 174/83
[2017-08-11] MEDS: PANTOPRAZOLE 20 MG TABLET (PROTONIX) PO SCH (06:28)
[2017-08-11] MEDS: KCL 8 MEQ (MICRO K) TABLET PO SCH (06:28)
[2017-08-11] MEDS: LEVOTHYROXINE 100 MCG (LEVOTHROID) TAB PO SCH (06:28)
[2017-08-11] MEDS: predniSONE 1 MG TAB PO SCH (06:28)
[2017-08-11] MEDS: PROPAFENONE 150 MG (RYTHMOL) TABLET PO SCH ×3 (06:28→20:37)
[2017-08-11] MEDS: ALPRAZolam 0.5 MG (XANAX) TAB PO SCH ×3 (08:47→20:37)
[2017-08-11] MEDS: buPROPion SR 150 MG (WELLBUTRIN SR) TAB PO SCH (08:47)
[2017-08-11] MEDS: risperiDONE 0.25 MG (RisperDAL) TAB PO SCH (08:47)
[2017-08-11] MEDS: ASPIRIN E.C. 81 MG (ECOTRIN) TAB PO SCH (08:47)
[2017-08-11] MEDS: MAGNESIUM OXIDE (MAG-OX)400 MG TAB PO SCH ×2 (08:47→17:47)
[2017-08-11] MEDS: LOSARTAN 50 MG (COZAAR) TAB PO SCH (08:47)
[2017-08-11] MEDS: LACTULOSE SYRUP 10GM/15ML (ENULOSE) 30ML UDC PO SCH ×2 (08:47→20:35)
[2017-08-11] MEDS: SENNA W/DOCUSATE (SENOKOT S) TABLET PO SCH ×2 (08:47→20:37)
[2017-08-11] MEDS: COLLAGENASE 30 GM (SANTYL) TUBE TP SCH ×2 (08:48→20:37)
--- NOTE | 2017-08-11 09:05 | Occupational Ther Daily Note ---
OT Current Status-Daily Note Subjective Pt alert, sitting in bed. Agrees to therapy. No c/o pain. Mental Status/Objective Patient Orientation: Person, Place, Time, Situation Functional [place] Measure 0=Not Assessed/NA 4=Minimal Assistance 1=Total Assistance 5=Supervision or Setup 2=Maximal Assistance 6=Modified [place] 3=Moderate Assistance 7=Complete [place] Attachments: Colostomy/Ileostomy ADL-Treatment Functional [place] Measure 0=Not Assessed/NA 4=Minimal Assistance 1=Total Assistance 5=Supervision or Setup 2=Maximal Assistance 6=Modified [place] 3=Moderate Assistance 7=Complete IndependenceIRFPAI Quality Coding Scale 6 Independent with activity with or without an assistive device 5 Patient requires set up or clean up by helper. Patient completes activity by themselves 4 Supervision or touching assist (CGA). [place] provide cues , steadying assist 3 The helper provides less than half the effort to complete the activity 2 The helper provides more than half the effort to complete the activity 1 Dependent. The helper does all the effort to complete an activity 7 Patient refused to complete or attempt activity 9 The patient did not perform the activity before the current illness or injury 88 Not attempted due to Medical conditions or safety concerns Eating (FIM): 5 (After set up, pt is able to use regular utensils for cutting food and feeding self.) Eating (QC): 5 (After set up, pt is able to use regular utensils for cutting food and feeding self.) Grooming (FIM): 6 (Pt able to brush teeth and comb hair while seated in w/c at sink. Pt washes face while seated in shower. ) Oral Hygiene (QC): 6 (Pt able to brush teeth and comb hair while seated in w/c at sink. Pt washes face while seated in shower. ) Bathing (FIM): 4 (Pt able to wash body in shower requiring min A to dry bottom of feet. Using handheld shower, grab bars, and tub transfer bench. ) Bathing Location: L Arm, R Arm, L Upper Leg, R Upper Leg, Chest, Abdomen, Buttocks, Perineal Area Shower/Bathe Self (QC): 3 (Pt able to wash body in shower requiring min A to dry bottom of feet. Using handheld shower, grab bars, and tub transfer bench. ) Upper Body (FIM): 5 (Pt able to doff shirt by self. After set up, pt able to don bra and shirt by self while seated. ) Upper Body Dressing (QC): 5 (Pt able to doff shirt by self. After set up, pt able to don bra and shirt by self while seated. ) Lower Body Dressing (FIM): 3 (Pt able to bend over and put clothing over feet. Requires assistance to stand, while pt pulls pants up. Pt able to don socks and shoes by crossing leg over other, using dycem to stablilize. Requires assistance to cross R leg. Assistance to situate back of shoes. Able to doff socks by self. ) Lower Body Dressing (QC): 3 (Pt able to bend over and put clothing over feet. Requires assistance to stand, while pt pulls pants up. Pt able to don socks and shoes by crossing leg over other, using dycem to stablilize. Requires assistance to cross R leg. Assistance to situate back of shoes. Able to doff socks by self. ) On/Off Footwear (QC): 3 (Pt able to don socks and shoes by crossing leg over other, using dycem to stablilize. Requires assistance to cross R leg. Assistance to situate back of shoes. ) Toileting (FIM): 3 (Assistance to stand while pt pulls pants up/down. Able to complete hygiene by self.) Toileting Hygiene (QC): 3 (Assistance to stand while pt pulls pants up/down. Able to complete hygiene by self.) Transfers (B, C, W/C) (FIM): 2 (Max A for stand pivot transfer. ) Toilet/Commode Transfer (FIM): 2 (Max A for stand pivot transfer from EOB to BSC.) Toilet Transfer (QC): 2 (Max A for stand pivot transfer from EOB to BSC. ) Tub Transfer(FIM): 4 (Pt transfers from w/c to tub transfer bench using sliding transfer board. Min A to get pt started on board. Verbal cues for position of w/c and board and reminder to lock breaks. ) Shower Transfer(FIM): 4 (Pt transfers from w/c to tub transfer bench using sliding transfer board. Min A to get pt started on board. Verbal cues for position of w/c and board and reminder to lock breaks. ) Education OT Patient Education: Transfer techniques, W/C management Teaching Recipient: Patient Teaching Methods: Demonstration, Discussion Response to Teaching: Verbalize Understanding, Return Demonstration OT Short Term Goals Short Term Goals Time Frame: Jul 30, 2017 Eating(FIM): 4 Grooming(FIM): 4 Bathing(FIM): 3 Upper Body Dressing(FIM): 3 Lower Body Dressing(FIM): 3 Toileting(FIM): 3 Transfers (B,C,W/C) (FIM): 3 Toilet/Commode Transfer(FIM): 3 Shower Transfer(FIM): 3 Additional Short Term Goals: 1-Demonstrate ADL Tasks, 2-Verbalize Understanding , 3-ImproveStrength/Carlos A 1=Demonstrate adherence to instructed precautions during ADL tasks. 2=Patient will verbalize/demonstrate understanding of assistive devices/ modifications for ADL. 3=Patient will improve strength/tolerance for activity to enable patient to perform ADL's. OT Senior Care Goals Urology Physician Assistant Goals Time Frame: Aug 13, 2017 Eating (FIM): 5 (met 08/11/17) Eating (QC): 5 (met 08/11/17) Groomin (met 08/11/17) Oral Hygiene (QC): 5 (met 08/11/17) Bathing(FIM): 5 (not met) Shower/Bathe Self (QC): 4 (not met) Upper Body Dressing(FIM): 5 (met 08/11/17) Upper Body Dressing (QC): 4 (met 08/11/17) Lower Body Dressing(FIM): 5 (not met) Lower Body Dressing (QC): 4 (not met) On/Off Footwear (QC): 4 (not met ) Toileting(FIM): 5 (not met) Toileting Hygiene (QC): 4 (not met) Transfers (B,C,W/C) (FIM): 5 (not met) Toilet/Commode Transfer(FIM): 5 (not met) Toilet/Commode Transfer (QC): 4 (not met) Tub Transfer(FIM): 5 (not met) Shower Transfer(FIM): 4 (met) Additional Goals: 1-Demonstrate ADL Tasks, 2-Verbalize Understanding, 3- ImproveStrength/Carlos A 1=Demonstrate adherence to instructed precautions during ADL tasks. 2=Patient will verbalize/demonstrate understanding of assistive devices/ modifications for ADL. 3=Patient will improve strength/tolerance for activity to enable patient to perform ADL's. OT Education/Plan Discharge Recommendations Plan/Recommendations: Continue POC Therapy D/C Recommendations: Occupational Therapy Home Care Equpiment Recommendations-D/C: Extended Bath Bench, Rails on Tub/Shower, Extended Shower Sprayer, Bedside Commode, Rails on Toilet Treatment Plan/Plan of Care Patient would benefit from OT for education, treatment and training to promote independence in ADL's, mobility, safety and/or upper extremity function for ADL' s. Plan of Care: ADL Retraining, Caregiver Training, Functional Mobility, Group Exercise/Act as Ind, UE Funct Exercise/Act Treatment Duration: Aug 13, 2017 Frequency: At least 5 of 7 days/Wk (IRF) Estimated Hrs Per Day: 1.5 hours per day Agreement: Yes Rehab Potential: Good Time/GCodes Start Time: 08:00 Stop Time: 09:00 Total Time Billed (hr/min): 60 Billed Treatment Time 1 visit, ADL 4 (60 minutes) LILY INMAN Aug 11, 2017 09:05
[2017-08-11] MEDS: ENOXAPARIN 40 MG/0.4 ML (LOVENOX) SYR SC SCH (09:53)
--- NOTE | 2017-08-11 11:07 | Physical Therapy Daily Note ---
PT Daily Note-Current Subjective Pt sitting up in WC upon arrival. Pt agrees to PT. Pt is excited to discharge tomorrow. Mental Status Patient Orientation: Person, Place, Situation Transfers Functional [place] Measure 0=Not Assessed/NA 4=Minimal Assistance 1=Total Assistance 5=Supervision or Setup 2=Maximal Assistance 6=Modified [place] 3=Moderate Assistance 7=Complete IndependenceIRFPAI Quality Coding Scale 6 Independent with activity with or without an assistive device 5 Patient requires set up or clean up by helper. Patient completes activity by themselves 4 Supervision or touching assist (CGA). [place] provide cues , steadying assist 3 The helper provides less than half the effort to complete the activity 2 The helper provides more than half the effort to complete the activity 1 Dependent. The helper does all the effort to complete an activity 7 Patient refused to complete or attempt activity 9 The patient did not perform the activity before the current illness or injury 88 Not attempted due to Medical conditions or safety concerns Transfers (B, C, W/C) (FIM): 2 Scootin Rollin Roll Left to Right (QC): 4 Supine to/from Sit: 3 Sit to/from Stand: 2 Sit to Lying (QC): 2 Sit to Stand (QC): 2 Chair/Zqt-zr-Havzh Xfer(QC): 2 Bed to/from Chair: 2 Car Transfer (QC): 88 Pt didn't have car present to test transfer. PT will score upon discharge tomorrow. Weight Bearing Weight Bearing Restriction: Full Weight Bearing Location Restriction: LE Bilateral Gait Training Does the Patient Walk?: No and Walking Goal IS indicated Gait (FIM): 88 Pt isn't strong enough to safely ambulate at this time. Wheelchair Training Does the Pt Use a Wheelchair?: Yes Wheelchair (FIM): 5 Wheelchair Distance: 3=150 ft Distance: 200' Wheelchair Level of Assist: 5 Wheel 50 ft with 2 turns (QC): 5 Wheel 150 ft (QC): 5 Type of Wheelchair: Manual Pt is able to maneuver WCH but needs assistance setting the brakes/locking WCH to prevent roll away. Stair Training Stairs (FIM): 88 Pt isn't strong enough to ambulate stairs at this time. Balance Picking up an Object (QC): 88 Special Test Comments Due to pt's weakness, unsafe to perform at this time. Exercises Supine Ex: Rolling Seated Therapy Exercises: Sit to stand Seated Reps: 3 Treatments Pt propelled WCH in hallway and to Therapy Gym. Pt completed Sit to stands at / /bars with rest in between each. Pt also discussed what discharge would be like and what equipment pt would need at home. Talked to SW to make sure shower bench and WCH with removable arm was being obtained. Pt propelled WCH again before heading back to room at end of tx to rest sitting in WCH with all needs met. Assessment Current Status: Good Progress Pt has improved with strength and mobility although still struggles with weakness preventing safe ambulation. Pt is excited to discharge tomorrow and feels confident that she and family can manage at home with Home Therapy coming intermittent. PT Short Term Goals Short Term Goals Time Frame: Jul 30, 2017 Transfers (B,C,W/C) (FIM): 3 Gait (FIM): 2 Distance (FIM): 2=894-86 ft Gait Assistive Device: FWW Wheelchair Distance: 50'x2 PT Halfway Goals Halfway Goals PT Halfway Goals Time Frame: Aug 13, 2017 Transfers (B,C,W/C) (FIM): 6 Sit to Lying (QC): 6 Lying-Sitting on Side/Bed(QC): 6 Sit to Stand (QC): 6 Rollin Roll Left to Right (QC): 6 Chair/Rcb-hu-Pifpb Xfer(QC): 6 Car Transfer (QC): 5 Does the Patient Walk: No and Walking Goal IS indicated Gait (FIM): 6 Gait distance (FIM): 3=150 ft Walk 10 feet (QC): 6 Walk 10ft-Uneven Surface(QC): 6 Walk 50ft with 2 Turns (QC): 6 Walk 150 ft (QC): 6 Gait Level of Assist: 6 Gait Assistive Device: FWW Stairs (FIM): 5 # of Steps: 8 1 Step (curb) (QC): 6 4 Steps (QC): 6 12 Steps (QC): 5 Stairs Level Of Assist: 6 Picking up an Object (QC): 5 PT Plan Problem List Problem List: Activity Tolerance, Functional Strength, Safety, Balance, Gait, Transfer, Bed Mobility Treatment/Plan Treatment Plan: Continue Plan of Care Treatment Plan: Bed Mobility, Education, Functional Activity Carlos A, Functional Strength, Group Therapy, Gait, Safety, Therapeutic Exercise, Transfers Treatment Duration: Aug 13, 2017 Frequency: At least 5 of 7 days/Wk (IRF) Estimated Hrs Per Day: 1.5 hours per day Patient and/or Family Agrees t: Yes Safety Risks/Education Patient Education: Gait Training, Transfer Techniques, Correct Positioning, W/ C Management, Safety Issues Teaching Recipient: Patient Teaching Methods: Discussion Response to Teaching: Verbalize Understanding Time/GCodes Time In: 900 Time Out: 1000 Total Billed Treatment Time: 60 Total Billed Treatment visit, [facility] x2 (30m) & FA x2 (30m) RAMANDEEP CARR PTA Aug 11, 2017 11:07
--- NOTE | 2017-08-11 11:34 | Occupational Ther Daily Note ---
OT Current Status-Daily Note Subjective Pt alert, sitting in w/c. Agrees to therapy, no c/o pain. Mental Status/Objective Patient Orientation: Person, Place, Time, Situation Functional [place] Measure 0=Not Assessed/NA 4=Minimal Assistance 1=Total Assistance 5=Supervision or Setup 2=Maximal Assistance 6=Modified [place] 3=Moderate Assistance 7=Complete [place] ADL-Treatment Functional [place] Measure 0=Not Assessed/NA 4=Minimal Assistance 1=Total Assistance 5=Supervision or Setup 2=Maximal Assistance 6=Modified [place] 3=Moderate Assistance 7=Complete IndependenceIRFPAI Quality Coding Scale 6 Independent with activity with or without an assistive device 5 Patient requires set up or clean up by helper. Patient completes activity by themselves 4 Supervision or touching assist (CGA). [place] provide cues , steadying assist 3 The helper provides less than half the effort to complete the activity 2 The helper provides more than half the effort to complete the activity 1 Dependent. The helper does all the effort to complete an activity 7 Patient refused to complete or attempt activity 9 The patient did not perform the activity before the current illness or injury 88 Not attempted due to Medical conditions or safety concerns Other Treatment Pt participated in FM strength and coordination tests and compared to initial assessment scores. R digital media [address] ave: 20.6 lbs, increased 12 lbs[address]: 14.6 lbs , increased 12.6 [address]: 8.6 lbs, increased 4.3 lbs. L [address] [place] [address]: 3.3 lbs, increase 1.3 lbs[address]: 9 lbs, increased 5 lbs. L [address]: 5 lbs, increased 3 lbs. R 3-jaw [address]: 9.3 lbs, increased 4.7 lbs. L 3-jaw [address]: 4.3 lbs, increased 3.3 lbs. 9-hole peg test R: 29 seconds, increased 1 min 1 sec. 9-hole peg test L: 51 seconds, unable to perform at initial assessment. Pt transferred from w/c to EOB with max A, EOB to supine with mod A. Pt pulled knees up and performed bridges to increase bed mobility for modified technique for donning/doffing pants. After therapy, pt lying in bed with phone and call light in reach. All needs met in room. OT Short Term Goals Short Term Goals Time Frame: Jul 30, 2017 Eating(FIM): 4 Grooming(FIM): 4 Bathing(FIM): 3 Upper Body Dressing(FIM): 3 Lower Body Dressing(FIM): 3 Toileting(FIM): 3 Transfers (B,C,W/C) (FIM): 3 Toilet/Commode Transfer(FIM): 3 Shower Transfer(FIM): 3 Additional Short Term Goals: 1-Demonstrate ADL Tasks, 2-Verbalize Understanding , 3-ImproveStrength/Carlos A 1=Demonstrate adherence to instructed precautions during ADL tasks. 2=Patient will verbalize/demonstrate understanding of assistive devices/ modifications for ADL. 3=Patient will improve strength/tolerance for activity to enable patient to perform ADL's. OT Retirement Goals Journeyman Molder Goals Time Frame: Aug 13, 2017 Eating (FIM): 5 (met 08/11/17) Eating (QC): 5 (met 08/11/17) Groomin (met 08/11/17) Oral Hygiene (QC): 5 (met 08/11/17) Bathing(FIM): 5 (not met) Shower/Bathe Self (QC): 4 (not met) Upper Body Dressing(FIM): 5 (met 08/11/17) Upper Body Dressing (QC): 4 (met 08/11/17) Lower Body Dressing(FIM): 5 (not met) Lower Body Dressing (QC): 4 (not met) On/Off Footwear (QC): 4 (not met ) Toileting(FIM): 5 (not met) Toileting Hygiene (QC): 4 (not met) Transfers (B,C,W/C) (FIM): 5 (not met) Toilet/Commode Transfer(FIM): 5 (not met) Toilet/Commode Transfer (QC): 4 (not met) Tub Transfer(FIM): 5 (not met) Shower Transfer(FIM): 4 (met) Additional Goals: 1-Demonstrate ADL Tasks, 2-Verbalize Understanding, 3- ImproveStrength/Carlos A 1=Demonstrate adherence to instructed precautions during ADL tasks. 2=Patient will verbalize/demonstrate understanding of assistive devices/ modifications for ADL. 3=Patient will improve strength/tolerance for activity to enable patient to perform ADL's. OT Education/Plan Discharge Recommendations Plan/Recommendations: Continue POC Treatment Plan/Plan of Care Patient would benefit from OT for education, treatment and training to promote independence in ADL's, mobility, safety and/or upper extremity function for ADL' s. Plan of Care: ADL Retraining, Caregiver Training, Functional Mobility, Group Exercise/Act as Ind, UE Funct Exercise/Act Treatment Duration: Aug 13, 2017 Frequency: At least 5 of 7 days/Wk (IRF) Estimated Hrs Per Day: 1.5 hours per day Agreement: Yes Rehab Potential: Good Time/GCodes Start Time: 10:40 Stop Time: 11:10 Total Time Billed (hr/min): 30 Billed Treatment Time 1 visit, FA 2 (30 minutes) LILY INMAN Aug 11, 2017 11:33
--- NOTE | 2017-08-11 12:07 | PM & R (SOAP) Progress Note ---
Subjective Time Seen by Provider: 08:00 Subjective/Events-last exam Patient was seen in her room this AM Patient Max assist for transfers Patient looking forward to discharge tomorrow to home with family in [place] with F/U with PCP DR Horvath.Systolic BP still elevated Hospitalist to review current meds prior to discharge Objective Exam Last Set of Vital Signs Vital Signs Date Time Temp Pulse Resp B/P (MAP) Pulse Ox O2 Delivery O2 Flow Rate FiO2 08/11/17 09:28 Room Air 08/11/17 06:26 95 08/11/17 06:00 98.8 89 18 174/83 Capillary Refill : I&O Intake and Output 08/12/17 00:00 Intake Total 400 ml Output Total 400 ml Balance 0 ml Intake Oral 400 ml Stool Total 400 ml # Voids 4 General: Alert, No Acute Distress HEENT: Atraumatic, PERRLA, EOMI, Mucous Memb Moist/[place] Neck: Supple, No JVD, Other (trach plugged) Lungs: Normal Air Movement Heart: Regular Rate Abdomen: Normal Bowel Sounds, Soft, No Tenderness, Other ( Peg tube site as per above Colostomy functioning) Skin: Other (LUQ abdomen -- 1.0 x 0.9 x 1.7 cm; 100% slough, mod. s.s. drainage.) Neuro: Other (2/5/strength both lower extremities Sensation intact Cognition intact ST assessing swallow) Assessment/Plan Assessment Crtical illness myopathy S/P trach now decannulkated DR Causey S/P Peg tube removal with area of breakdown-DR García has addressed S/P colostomy for perforated bowel DR Ng HTN Chronic constipation Elevated LFTS Hypercalcemia-IMPROVED Hypomagnesemia-RECEIVING REPLACEMENT hYPOKALEMIA ON REPLACEMENT Urinary retention -Reynolds now out and patient voiding voluntarily DVT prophylaxis Heparin switched to Lovenox SUBCUT [place] both arms DR Cosby following Plan Continue PT/OT/ST/Wound care Monitor for any urinary retention [place] [facility] consulted re reactive anxiety-Appreciate their note F/U with DR Causey and Nieves prn Family conference held 07-28-17-See SW note Consult DR García re wound care-See orders.-done appreciate his assistanc Patient hopes to go home with family next week. Discharge remains set for tomorrow Thursday07-12-17 F/U re ABNORMAL LABS as per Hospitalist service F/U with Hospitalist re elevated Syslolic BP . TRIP SIERRA MD Aug 11, 2017 12:07
--- NOTE | 2017-08-11 15:33 | Physical Therapy Daily Note ---
PT Daily Note-Current Subjective Pt sitting in [facility] upon arrival. Pt agrees to PT. Pt asks a few question about discharge although feels ready and excited to go tomorrow. Pain Numeric Pain Scale: 0-No Pain Mental Status Patient Orientation: Person, Place, Time, Situation Transfers Functional [place] Measure 0=Not Assessed/NA 4=Minimal Assistance 1=Total Assistance 5=Supervision or Setup 2=Maximal Assistance 6=Modified [place] 3=Moderate Assistance 7=Complete IndependenceIRFPAI Quality Coding Scale 6 Independent with activity with or without an assistive device 5 Patient requires set up or clean up by helper. Patient completes activity by themselves 4 Supervision or touching assist (CGA). [place] provide cues , steadying assist 3 The helper provides less than half the effort to complete the activity 2 The helper provides more than half the effort to complete the activity 1 Dependent. The helper does all the effort to complete an activity 7 Patient refused to complete or attempt activity 9 The patient did not perform the activity before the current illness or injury 88 Not attempted due to Medical conditions or safety concerns Scootin Supine to/from Sit: 3 Sit to/from Stand: 2 Sit to Lying (QC): 4 Sit to Stand (QC): 2 Chair/Tat-ko-Qvtid Xfer(QC): 2 Bed to/from Chair: 2 Weight Bearing Weight Bearing Restriction: Full Weight Bearing Location Restriction: LE Bilateral Gait Training Does the Patient Walk?: No and Walking Goal IS indicated Wheelchair Training Does the Pt Use a Wheelchair?: Yes Wheelchair Distance: 3=150 ft Distance: 150' Wheelchair Level of Assist: 5 Wheel 50 ft with 2 turns (QC): 5 Wheel 150 ft (QC): 5 Type of Wheelchair: Manual Exercises Seated Therapy Exercises: Ankle pumps, Long arc quads, Hip flexion, Kicking activity Seated Reps: 15 Treatments Pt propels [facility] in Therapy Commons at SBA. Pt completed Seated after short rest. Pt returns to room to rest in bed at end of tx. Pt transfers from [facility] to EOB at [facility] at Mod A. Pt is resting at end of tx with all needs met Assessment Current Status: Good Progress Pt continues to work hard and is motived to get better at home as well. PT Short Term Goals Short Term Goals Time Frame: Jul 30, 2017 Transfers (B,C,W/C) (FIM): 3 Gait (FIM): 2 Distance (FIM): 4=034-50 ft Gait Assistive Device: FWW Wheelchair Distance: 200' PT Turnaround Engineer Goals Turnaround Engineer Goals PT [facility]sp Goals Time Frame: Aug 13, 2017 Transfers (B,C,W/C) (FIM): 6 Sit to Lying (QC): 6 Lying-Sitting on Side/Bed(QC): 6 Sit to Stand (QC): 6 Rollin Roll Left to Right (QC): 6 Chair/Tkb-ra-Wrltp Xfer(QC): 6 Car Transfer (QC): 5 Does the Patient Walk: No and Walking Goal IS indicated Gait (FIM): 6 Gait distance (FIM): 3=150 ft Walk 10 feet (QC): 6 Walk 10ft-Uneven Surface(QC): 6 Walk 50ft with 2 Turns (QC): 6 Walk 150 ft (QC): 6 Gait Level of Assist: 6 Gait Assistive Device: FWW Stairs (FIM): 5 # of Steps: 8 1 Step (curb) (QC): 6 4 Steps (QC): 6 12 Steps (QC): 5 Stairs Level Of Assist: 6 Picking up an Object (QC): 5 PT Plan Problem List Problem List: Activity Tolerance, Functional Strength, Balance, Gait, Transfer Treatment/Plan Treatment Plan: Continue Plan of Care Treatment Plan: Bed Mobility, Education, Functional Activity Carlos A, Functional Strength, Group Therapy, Gait, Safety, Therapeutic Exercise, Transfers Treatment Duration: Aug 13, 2017 Frequency: At least 5 of 7 days/Wk (IRF) Estimated Hrs Per Day: 1.5 hours per day Patient and/or Family Agrees t: Yes Safety Risks/Education Patient Education: Transfer Techniques, Correct Positioning, W/C Management, Safety Issues Teaching Recipient: Patient Teaching Methods: Discussion Response to Teaching: Verbalize Understanding Time/GCodes Time In: 1300 Time Out: 1330 Total Billed Treatment Time: 30 Total Billed Treatment visit, [facility] (15m) & EX (15m) RAMANDEEP CARR PTA Aug 11, 2017 15:33
[2017-08-11 17:48] VITALS: BP 174/75
[2017-08-11] MEDS ORDERED: TERA1CAP3 PO ×2 (19:57)
[2017-08-11] MEDS ORDERED: POTA8CAP9 PO ×2 (19:57)
[2017-08-11] MEDS ORDERED: LEVO100T PO ×2 (19:57)
[2017-08-11] MEDS ORDERED: PROP225T2 PO ×2 (19:57)
[2017-08-11] MEDS ORDERED: Oxycodone Hcl PO ×2 (19:57)
[2017-08-11] MEDS ORDERED: COLL30OI TP ×2 (19:57)
[2017-08-11] MEDS ORDERED: ALPR0.5T7 PO ×2 (19:57)
[2017-08-11] MEDS ORDERED: LOSA50TA36 PO ×2 (19:57)
[2017-08-11] MEDS ORDERED: SIMV20TA3 PO ×2 (19:57)
[2017-08-11] MEDS ORDERED: CITA20TA7 PO ×2 (19:57)
[2017-08-11] MEDS ORDERED: MAGN400T6 PO ×2 (19:57)
[2017-08-11] MEDS ORDERED: PANT20TA3 PO ×2 (19:57)
[2017-08-11] MEDS ORDERED: ASPI-983 PO ×2 (19:57)
[2017-08-11] MEDS ORDERED: BUPR150T14 PO ×2 (19:57)
[2017-08-11] MEDS ORDERED: PRD1T PO ×2 (19:57)
[2017-08-11] MEDS ORDERED: SENN-20 PO ×2 (19:57)
[2017-08-11] MEDS ORDERED: RISP0.253 PO ×2 (19:57)
[2017-08-11] MEDS: POLYETHYLENE GLYCOL 17 GM (MIRALAX) PACK PO SCH (20:35)
--- NOTE | 2017-08-11 22:11 | Wound Care Progress Note ---
Subjective Subjective Subjective/Events-last exam 61 year old female with persistent abdominal wound, improved on Santyl dressings. The patient is to go home and will be followed up in the [facility]. PMH: Recent episode of perforated bowel, peritonitis, sepsis, respiratory failue, prolonged mechanical ventilation, and PEG which has been removed, leaving non-healing abdominal wound. Previous history of SVT, s/p cardiac ablation. Review of Systems Date Seen by Provider: Aug 11, 2017 Time Seen by Provider: 17:00 General: No Chills Pulmonary: No Dyspnea Cardiovascular: No: Chest Pain Objective Exam Last Set of Vital Signs Vital Signs Date Time Temp Pulse Resp B/P (MAP) Pulse Ox O2 Delivery O2 Flow Rate FiO2 08/11/17 17:48 97.4 84 18 174/75 98 Room Air Capillary Refill : I&O Intake and Output 08/12/17 00:00 Intake Total 1200 ml Output Total 900 ml Balance 300 ml Intake Oral 1200 ml Stool Total 900 ml # Voids 7 General: Alert, No Acute Distress Lungs: Normal Air Movement Skin: Other (LUQ deep wound --- 0.3 x 0.4 x 0.5 cm, base 100% regenerating tissue.) Assessment/Plan Assessment/Plan Assessment/Plan !. Persistent LUQ surgical wound, almost healed. 2. S/P removal of PEG for prolonged feeding while on ventilator. Plan: Continue Santyl dressings BID as out-patient. Will follow-up in [facility]ound [facility]. PEGGY JIMENEZ MD Aug 11, 2017 22:11
[2017-08-12 05:29] VITALS: BP 174/74
[2017-08-12] MEDS: PROPAFENONE 150 MG (RYTHMOL) TABLET PO SCH (06:16)
[2017-08-12] MEDS: predniSONE 1 MG TAB PO SCH (06:16)
[2017-08-12] MEDS: KCL 8 MEQ (MICRO K) TABLET PO SCH (06:17)
[2017-08-12] MEDS: LEVOTHYROXINE 100 MCG (LEVOTHROID) TAB PO SCH (06:17)
[2017-08-12] MEDS: PANTOPRAZOLE 20 MG TABLET (PROTONIX) PO SCH (06:17)
[2017-08-12 08:00] VITALS: BP 182/82
[2017-08-12] MEDS: LOSARTAN 50 MG (COZAAR) TAB PO SCH (08:07)
[2017-08-12] MEDS: buPROPion SR 150 MG (WELLBUTRIN SR) TAB PO SCH (08:07)
[2017-08-12] MEDS: SENNA W/DOCUSATE (SENOKOT S) TABLET PO SCH (08:08)
[2017-08-12] MEDS: MAGNESIUM OXIDE (MAG-OX)400 MG TAB PO SCH (08:09)
[2017-08-12] MEDS: ALPRAZolam 0.5 MG (XANAX) TAB PO SCH (08:09)
[2017-08-12] MEDS: risperiDONE 0.25 MG (RisperDAL) TAB PO SCH (08:09)
[2017-08-12] MEDS: ASPIRIN E.C. 81 MG (ECOTRIN) TAB PO SCH (08:09)
[2017-08-12] MEDS: LACTULOSE SYRUP 10GM/15ML (ENULOSE) 30ML UDC PO SCH (08:10)
[2017-08-12] MEDS: COLLAGENASE 30 GM (SANTYL) TUBE TP SCH (08:14)
[2017-08-12] MEDS: ENOXAPARIN 40 MG/0.4 ML (LOVENOX) SYR SC SCH (08:16)
[2017-08-12 08:20] VITALS: BP 171/72
--- NOTE | 2017-08-12 09:51 | PM & R (SOAP) Progress Note ---
Subjective Time Seen by Provider: 08:15 Subjective/Events-last exam Patient was seen in her room this AM Discussed case with RN RN asks about rechack lab on Serum K for patient Deferred to Hospitalist who prefers to manage these issues. Objective Exam Last Set of Vital Signs Vital Signs Date Time Temp Pulse Resp B/P (MAP) Pulse Ox O2 Delivery O2 Flow Rate FiO2 08/12/17 08:00 72 20 182/82 08/12/17 07:41 96 Room Air 08/12/17 05:29 97.0 Capillary Refill : I&O Intake and Output 08/13/17 00:00 Intake Total 500 ml Balance 500 ml Intake Oral 500 ml # Voids 4 General: Alert, No Acute Distress HEENT: Atraumatic, PERRLA, EOMI, Mucous Memb Moist/[place] Neck: Supple, No JVD, Other (trach plugged) Lungs: Normal Air Movement Heart: Regular Rate Abdomen: Normal Bowel Sounds, Soft, No Tenderness, Other ( Peg tube site as per above Colostomy functioning) Skin: Other (LUQ deep wound --- 0.3 x 0.4 x 0.5 cm, base 100% regenerating tissue.) Neuro: Other (2/5/strength both lower extremities Sensation intact Cognition intact ST assessing swallow) Assessment/Plan Assessment Crtical illness myopathy S/P trach now decannulkated DR Causey S/P Peg tube removal with area of breakdown-DR García has addressed S/P colostomy for perforated bowel DR Ng HTN Chronic constipation Elevated LFTS Hypercalcemia-IMPROVED Hypomagnesemia-RECEIVING REPLACEMENT hYPOKALEMIA ON REPLACEMENT Urinary retention -Reynolds now out and patient voiding voluntarily DVT prophylaxis Heparin switched to Lovenox SUBCUT Purpera both arms DR Cosby following Plan Discharge today to home with family and C in [place] F/U with PCP DR Horvath re repeat labs and any further management of Elevated Systolic Blood pressure F/U with DR García photographic specialist. Current labs reviewed See orders. . TRIP SIERRA MD Aug 12, 2017 09:51
[2017-08-12 11:20] VITALS: BP 171/72
[2017-08-12] MEDS ORDERED: AMLO5TAB4 PO ×2 (11:29)
[2017-08-12] MEDS ORDERED: amLODIPine 5 MG (NORVASC) TAB PO SCH (11:30)
--- NOTE | 2017-08-12 12:02 | Therapy Team Discharge Summary ---
Therapy Discharge Summary Discharge Recommendations Date of Discharge Therapy D/C Recommendations: Occupational Therapy Home Care Physical Therapy This pt was seen for skilled PT on ARU post a lengthy hospital stay for a complicated bowel perforation with subsequent peritonitis. Pt was transferred to our hospital ARU from [facility]. Her original course of hospitalization began in March of 2017; therefore she was very debilitated upon admit. She was dep for tranfers, unable to walk, dep for wheelchair mobilty and needed assist with maintaining seated EOB balance. Treatment focused on muscle strengthening to progress mobility as well as functional bed mobility, transfers, and wheelchair mobility. We worked on prolonged standing in the // bars and functional SPT's. Family has taken the patient home multiple times during the course of her stay, therefore they report feeling confident in transfers and patient care at home. At dischrge, she still requires max assist with transfers, unable to ambulated, SBA with wheelchair mobility. She has made functional gains in terms of strength and functional activity tolerance, however, much progress is yet to come. Pt did not meet goals set at evaluation , but she felt she wanted to discharge home, family was in agreeance. Recommend [facility] PT to follow and pt agees. [facility] PT from ARU level at this time. PT Residential Goals Residential Goals PT Residential Goals Time Frame: Aug 13, 2017 Transfers (B,C,W/C) (FIM): 6 Roll Left to Right (QC): 6 Sit to Lying (QC): 6 Lying-Sitting on Side/Bed(QC): 6 Sit to Stand (QC): 6 Chair/Nff-th-Ptdhq Xfer(QC): 6 Car Transfer (QC): 5 Does the Patient Walk: No and Walking Goal IS indicated Gait (FIM): 6 Gait distance (FIM): 3=150 ft Walk 10 feet (QC): 6 Walk 10ft-Uneven Surface(QC): 6 Walk 50ft with 2 Turns (QC): 6 Walk 150 ft (QC): 6 Gait Level of Assist: 6 Gait Assistive Device: FWW Stairs (FIM): 5 # of Steps: 8 1 Step (curb) (QC): 6 4 Steps (QC): 6 12 Steps (QC): 5 Stairs Level Of Assist: 6 Picking up an Object (QC): 5 No LTG's met; however pt able to manage her at a wheelchair level at home. [facility] PT recommended to work on continued progression of strength and mobility. OT Java Front End Web Developer Goals Residential Goals Time Frame: Aug 13, 2017 Eating (FIM): 5 (met 08/11/17) Eating (QC): 5 (met 08/11/17) Oral Hygiene (QC): 5 (met 08/11/17) Grooming(FIM): 5 (met 08/11/17) Bathing(FIM): 5 (not met) Shower/Bathe Self (QC): 4 (not met) Upper Body Dressing(FIM): 5 (met 08/11/17) Upper Body Dressing (QC): 4 (met 08/11/17) Lower Body Dressing(FIM): 5 (not met) Lower Body Dressing (QC): 4 (not met) On/Off Footwear (QC): 4 (not met ) Toileting(FIM): 5 (not met) Toileting Hygiene (QC): 4 (not met) Transfers (B,C,W/C) (FIM): 5 (not met) Toilet/Commode Transfer(FIM): 5 (not met) Toilet/Commode Transfer (QC): 4 (not met) Tub Transfer(FIM): 5 (not met) Shower Transfer(FIM): 4 (met) Additional Goals: 1-Demonstrate ADL Tasks, 2-Verbalize Understanding, 3- ImproveStrength/Carlos A 1=Demonstrate adherence to instructed precautions during ADL tasks. 2=Patient will verbalize/demonstrate understanding of assistive devices/ modifications for ADL. 3=Patient will improve strength/tolerance for activity to enable patient to perform ADL's. Speech Java Front End Web Developer Goals Residential Goals 1. The patient will tolerate the least restrictive diet without signs/symptoms of aspiration or laryngeal penetration. MET Time Frame: One Week LILY MATTHEWS PT Aug 12, 2017 12:02
--- NOTE | 2017-08-13 08:21 | Therapy Team Discharge Summary ---
Therapy Discharge Summary Discharge Recommendations Date of Discharge Aug 12, 2017 at 11:20 Therapy D/C Recommendations: Home w/ Family Support, Occupational Therapy Home Care Occupational Therapy Pt. has been seen by occupational therapy to increase overall strength and endurance with daily tasks and skills. Pt. has made significant progress in all areas. Is able to complete most ADL skills such as bathing/dressing/ grooming with Min assist/SBA. Pt. is discharging home with spouse and daughter support. Has not met goals, as most goals are to be Mod I. However, due to substantial progress on rehab unit, pt. able to be successful in the home with family. Pt. has already trialed this, and has went home with family support while on unit. Pt.'s family has all needed equipment, and occupational therapy is recommended in the home or outpt. PT Fci Goals Yarn Carrier Goals PT Fci Goals Time Frame: Aug 13, 2017 Transfers (B,C,W/C) (FIM): 6 Roll Left to Right (QC): 6 Sit to Lying (QC): 6 Lying-Sitting on Side/Bed(QC): 6 Sit to Stand (QC): 6 Chair/Xbt-oj-Nlqwn Xfer(QC): 6 Car Transfer (QC): 5 Does the Patient Walk: No and Walking Goal IS indicated Gait (FIM): 6 Gait distance (FIM): 3=150 ft Walk 10 feet (QC): 6 Walk 10ft-Uneven Surface(QC): 6 Walk 50ft with 2 Turns (QC): 6 Walk 150 ft (QC): 6 Gait Level of Assist: 6 Gait Assistive Device: FWW Stairs (FIM): 5 # of Steps: 8 1 Step (curb) (QC): 6 4 Steps (QC): 6 12 Steps (QC): 5 Stairs Level Of Assist: 6 Picking up an Object (QC): 5 OT Yarn Carrier Goals Yarn Carrier Goals Time Frame: Aug 13, 2017 Eating (FIM): 5 (met 08/11/17) Eating (QC): 5 (met 08/11/17) Oral Hygiene (QC): 5 (met 08/11/17) Grooming(FIM): 5 (met 08/11/17) Bathing(FIM): 5 (not met) Shower/Bathe Self (QC): 4 (not met) Upper Body Dressing(FIM): 5 (met 08/11/17) Upper Body Dressing (QC): 4 (met 08/11/17) Lower Body Dressing(FIM): 5 (not met) Lower Body Dressing (QC): 4 (not met) On/Off Footwear (QC): 4 (not met ) Toileting(FIM): 5 (not met) Toileting Hygiene (QC): 4 (not met) Transfers (B,C,W/C) (FIM): 5 (not met) Toilet/Commode Transfer(FIM): 5 (not met) Toilet/Commode Transfer (QC): 4 (not met) Tub Transfer(FIM): 5 (not met) Shower Transfer(FIM): 4 (met) Additional Goals: 1-Demonstrate ADL Tasks, 2-Verbalize Understanding, 3- ImproveStrength/Carlos A 1=Demonstrate adherence to instructed precautions during ADL tasks. 2=Patient will verbalize/demonstrate understanding of assistive devices/ modifications for ADL. 3=Patient will improve strength/tolerance for activity to enable patient to perform ADL's. Speech [facility]ci Goals Yarn Carrier Goals 1. The patient will tolerate the least restrictive diet without signs/symptoms of aspiration or laryngeal penetration. MET Time Frame: One Week JAILYN ASHER OT Aug 13, 2017 08:21
--- NOTE | 2017-08-26 14:13 | DISCHARGE SUMMARY ---
DATE OF SERVICE: HISTORY OF PRESENT ILLNESS: The patient is a 61-year-old female who was originally admitted to [facility] on 04/25/2017 due to sigmoid perforation with fecal peritonitis. The patient had laparoscopic Jose R's procedure for sigmoid resection with end colostomy. She developed ventilator failure postoperatively. She required prolonged ventilatory support including tracheostomy to facilitate her weaning from the mechanical ventilation. She developed multiple intraabdominal abscesses as well. These were drained percutaneously. She still needed to be weaned off mechanical ventilation and she was referred to [facility] for weaning and ongoing care plus her nutrition was managed at that time by nasal jejunal feeding and she was discharged on 05/22. She went on to be weaned from ventilator. Her trach is plugged. Bladder was managed with indwelling Reynolds catheter. At this time she is tolerating room air. She is tolerating mechanical soft diet with thin liquids. She developed profound weakness, particularly in her lower legs which was felt to be due to critical illness myopathy. 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 Horvath in his clinic in [facility] prior to this. Dr. Munoz is also her PCP. She requires assistance for ADLs and mobility skills, balance, management colostomy, bladder management including Reynolds catheter. She was referred to inpatient rehabilitation unit at [facility] for ongoing therapies and care. PAST MEDICAL HISTORY: She has had cardiac ablation for supraventricular tachycardia and is on antiarrhythmic drug, hypertension, chronic constipation, arthritis, surgical hypothyroidism on replacement. PAST SURGICAL HISTORY: She also has had appendectomy, cholecystectomy, hysterectomy, carpal tunnel release, renal stent and thyroidectomy in the past. SOCIAL HISTORY: She is and lives with her in a one-story home in [place], [place]. MEDICAL COURSE: The patient was followed by Dr. Henriquez and hospitalist service while on rehab unit. The patient was seen by Dr. Causey and the patient had decannulation and tolerated this well. Her ostomy site was healing well prior to discharge. She was seen by Dr. García regarding slowly healing abdominal surgical wound on the abdomen. Topical care was provided. This was improving. She was seen by Dr. Pickett, urology, regarding urinary retention. She did agree to have a trial of voiding prior to discharge home and she did well with this and was continent of bladder. Colostomy education was provided to patient and spouse. She continued on prednisone taper. She was found hypercalcemia. Follow up study showed normal corrected and Ionized calcium and low PTH. She developed some purpura all over her arms. This was slowly improving prior to discharge. She had a chest x-ray on 07/17/2017 which showed clear chest. CBC on 07/18/2017 showed WBC 13.2, but normalized to 6.2 on 08/07/2017. H and H on 08/07 was 10.1/31, platelet count 371k. Chemistry on 08/07/2017 showed serum potassium of 2.7 and replacement provided. Serum sodium 144, chloride 108, BUN and creatinine 6/0.62. Blood glucose 83, calcium normalized to 9.4. Serum albumin 2.7 and total protein 5.4. On 08/07/2017, alkaline phosphatase 158. Serum calcium level was 11.4 on 07/18/2017. Magnesium was 1.6 on 07/18/2017, replacement provided. Liver function tests elevated on 07/18, alk phos 403, ALT 146, AST 53, TSH 0.32. Cortisol was 33, elevated. AST and ALT and total bilirubin had normalized on 08/07/2017. Alkaline phosphatase was trending down at 158 on 08/07/2017. She was afebrile during her stay. Her pulse was 72 on 08/12, respirations 20, blood pressure 171/72, O2 sat 96% on room air. She was voiding and was continent of bowel and bladder. REHABILITATION COURSE: The patient progressed well with the therapy. She had increased strength and endurance. Speech therapy noted that upon admission, the patient was tolerating a mechanical soft diet with thin liquids. The patient displayed cognition and linguistic and speech skills within functional limits. Swallow evaluation demonstrated the patient's ability to be upgraded to a regular diet with thin liquids and the patient was thus discharged from speech therapy. The patient tolerated upgraded diet well. PT notes upon admission she was dependent for transfers, unable to walk, dependent for wheelchair mobility and needed assistance with maintaining seated balance. The patient progressed well. The family has taken patient home multiple times and at discharge, even though she made some progress, she still required max assist with transfers. She was unable to ambulate and she was standby assist for wheelchair mobility. She has made functional gains in terms of strength and functional activity, tolerance and improved sitting balance. She will have home health care PT. OT notes upon admission she was dependent for dressing, toileting, toileting hygiene, max assist for transfers and bathing. She is discharging home with her spouse and supportive support. She has not met all her goals as most goals are to be modified independence; however, due to substantial progress in rehab unit, the patient able to be successful at home with family assisting. Patient's family has all needed equipment and upon discharge she is set up for upper body dressing, min assist for lower body dressing, min assist for toileting, mod assist for toileting hygiene, min assist for transfers, min assist for bathing, set up for grooming at the wheelchair level, modified independent for eating. She was doing better with p.o. intake. The patient was assessed and counseled by behavioral health services. They felt the Celexa was appropriate for adjustment disorder and it was recommended that she continue with that. DISCHARGE INSTRUCTIONS: She will follow up with Dr. Horvath and home health care. Continue current diet. Follow up with Dr. García wound care clinic. Follow up with Dr. Ng, surgeon. DISCHARGE MEDICATIONS: Xanax 0.5 mg p.o. t.i.d., amlodipine 5 mg p.o. daily, ASA 81 mg p.o. daily, Bupropion 200 mg p.o. daily, Celexa 20 mg p.o. daily, Santyl topically b.i.d. to affected wound, Synthroid 100 mcg p.o. daily, losartan 100 mg p.o. daily, mag ox 400 mg p.o. b.i.d., Protonix 20 mg p.o. daily. KCl 8 mEq p.o. daily, prednisone 4 mg p.o. q.6h. Risperidone 0.25 mg p.o. daily, Senokot-S 2 tablets p.o. b.i.d. Oxycodone immediate release 10 mg p.o. 4 hours p.r.n. severe pain. Propafenone 25 mg p.o. t.i.d., simvastatin 20 mg p.o. daily, Terazosin 1 mg p.o. daily. DISCHARGE DIAGNOSES: 1. Rehabilitation ambulatory dysfunction secondary to critical illness myopathy, slowly improving. 2. Respiratory failure, treated. 3. Status post decannulation. 4. Sigmoid perforation with peritonitis, treated. 5. Sigmoid perforation with peritonitis. 6. Surgical hypothyroidism on replacement. 7. Hypertension, controlled on medication. 8. Chronic constipation, on medications. 9. Colostomy status. 10. Hypercalcemia, improved. 11. Hypomagnesemia, improved with replacement. 12. Urinary retention, improved. 13. Situational depression on antidepressant improved. 14. Nonhealing wound peg site, improving with topical care. 15. Hypokalemia, treated. 16. Purpura, improving. CONDITION AT DISCHARGE: Improved and stable. PROGNOSIS: Rehab prognosis appears good for some continued improvement with ongoing therapies. She is making gradual progress and hopefully she will eventually return to a more independent level of function, but in the meanwhile, she has home health care and a supportive family to assist her. Job ID: [id number] DocumentID: [id number] Dictated Date: 08/25/2017 21:12:04 Oil Burner Date: 08/26/2017 14:12:18 Dictated By: TRIP HENRIQUEZ MD MTDD
== END 2017-08-12 11:20 | disposition home health service (06) | DRG 93 ==
PROVIDERS: ADMIT Physical Medicine & Rehabilitation; ATTEND Physical Medicine & Rehabilitation
DX: G72.81 Critical illness myopathy (principal); E89.0 Postprocedural hypothyroidism; I10 Essential (primary) hypertension; K59.09 Other constipation; Z93.3 Colostomy status; E83.52 Hypercalcemia; E83.42 Hypomagnesemia; R33.9 Retention of urine, unspecified; F43.21 Adjustment disorder with depressed mood; T81.9XXA Unspecified complication of procedure, initial encounter; E87.6 Hypokalemia; D69.2 Other nonthrombocytopenic purpura
CPT/HCPCS: 36415; 71010; 80053; 82330; 82533; 82550; 82962; 83735; 83880; 83970; 84100; 84443; 85007; 85025; 85027; 94760

== ENCOUNTER → 2017-08-13 | Outpatient (CLI) | payer BC ==
[~2017-08-13] MED LIST changes: +ALPR0.5T7 PO; +AMLO5TAB4 PO; +ASPI-983 PO; +BUPR150T14 PO; +CITA20TA7 PO; +COLL30OI TP; +LEVO100T PO; +LOSA50TA36 PO; +MAGN400T6 PO; +Oxycodone Hcl PO; +PANT20TA3 PO; +POTA8CAP9 PO; +PRD1T PO; +RISP0.253 PO; +SENN-20 PO
[2017-08-13 15:59] LABS: BASOPHILS % (AUTO) 0 % (0-10); EOSINOPHILS # (AUTO) 0.1 10^3/uL (0.0-0.3); EOSINOPHILS % (AUTO) 1 % (0-10); LYMPHOCYTES # (AUTO) 1.9 X 10^3 (1.0-4.0); LYMPHOCYTES % (AUTO) 24 % (12-44); MEAN CORPUSCULAR HEMOGLOBIN 29 PG (25-34); MEAN CORPUSCULAR HGB CONC 31 G/DL (32-36); MEAN CORPUSCULAR VOLUME 93 FL (80-99); MEAN PLATELET VOLUME 9.9 FL (7.4-10.4); MONOCYTES # (AUTO) 0.5 X 10^3 (0.0-1.0); MONOCYTES % (AUTO) 6 % (0-12); NEUTROPHILS # (AUTO) 5.6 X 10^3 (1.8-7.8); NEUTROPHILS % (AUTO) 69 % (42-75); PLATELET COUNT 377 10^3/uL (130-400); RED BLOOD COUNT 3.75 10^6/uL (4.35-5.85); RED CELL DISTRIBUTION WIDTH 13.4 % (10.0-14.5); WHITE BLOOD COUNT 8.1 10^3/uL (4.3-11.0)
[2017-08-13 16:20] LABS: ALANINE AMINOTRANSFERASE 21 U/L (0-55); ALBUMIN 2.8 GM/DL (3.2-4.5); ANION GAP 11 MMOL/L (5-14); ASPARTATE AMINO TRANSFERASE 18 U/L (5-34); BILIRUBIN,TOTAL 0.3 MG/DL (0.1-1.0); BLOOD UREA NITROGEN 8 MG/DL (7-18); BUN/CREATININE RATIO 11; CALCIUM 9.2 MG/DL (8.5-10.1); CARBON DIOXIDE 28 MMOL/L (21-32); CHLORIDE 104 MMOL/L (98-107); CREATININE SERUM 0.71 MG/DL (0.60-1.30); GFR ESTIMATED > 60; GLUCOSE 169 MG/DL (70-105); POTASSIUM 2.9 MMOL/L (3.6-5.0); SODIUM 143 MMOL/L (135-145); TOTAL PROTEIN 5.6 GM/DL (6.4-8.2)
== END ==
LOC: HH 15:51
PROVIDERS: ATTEND Family Medicine
DX: G72.81 Critical illness myopathy (principal); K65.9 Peritonitis, unspecified
CPT/HCPCS: 80053; 85025

== ENCOUNTER → 2017-08-17 | Outpatient (CLI) | payer BC | LOC: WOUNDCARE 13:22 | PROVIDERS: ATTEND Surgery | DX: L98.492 Non-pressure chronic ulcer of skin of other sites with fat layer exposed (principal); T81.31XA Disruption of external operation (surgical) wound, not elsewhere classified, initial encounter; E43 Unspecified severe protein-calorie malnutrition | CPT/HCPCS: 11042; 87070; 87075; 87205 ==

== ENCOUNTER → 2017-08-24 | Outpatient (CLI) | payer BC | LOC: WOUNDCARE 14:24 | PROVIDERS: ATTEND Surgery | DX: L98.492 Non-pressure chronic ulcer of skin of other sites with fat layer exposed (principal); T81.31XA Disruption of external operation (surgical) wound, not elsewhere classified, initial encounter; B96.5 Pseudomonas (aeruginosa) (mallei) (pseudomallei) as the cause of diseases classified elsewhere | CPT/HCPCS: 11042 ==

== ENCOUNTER → 2017-08-31 | Outpatient (CLI) | payer BC | LOC: WOUNDCARE 14:21 | PROVIDERS: ATTEND Surgery | DX: L98.492 Non-pressure chronic ulcer of skin of other sites with fat layer exposed (principal); B96.5 Pseudomonas (aeruginosa) (mallei) (pseudomallei) as the cause of diseases classified elsewhere; T81.31XA Disruption of external operation (surgical) wound, not elsewhere classified, initial encounter | CPT/HCPCS: 11042 ==

== ENCOUNTER → 2017-09-07 | Outpatient (CLI) | payer BC | LOC: WOUNDCARE 14:21 | PROVIDERS: ATTEND Surgery | DX: L98.492 Non-pressure chronic ulcer of skin of other sites with fat layer exposed (principal); B96.5 Pseudomonas (aeruginosa) (mallei) (pseudomallei) as the cause of diseases classified elsewhere; T81.31XA Disruption of external operation (surgical) wound, not elsewhere classified, initial encounter | CPT/HCPCS: 11042 ==

== ENCOUNTER → 2017-09-14 | Outpatient (CLI) | payer BC | LOC: WOUNDCARE 14:08 | PROVIDERS: ATTEND Surgery | DX: L98.492 Non-pressure chronic ulcer of skin of other sites with fat layer exposed (principal); T81.31XA Disruption of external operation (surgical) wound, not elsewhere classified, initial encounter; E46 Unspecified protein-calorie malnutrition; B96.5 Pseudomonas (aeruginosa) (mallei) (pseudomallei) as the cause of diseases classified elsewhere | CPT/HCPCS: 11042 ==

== ENCOUNTER → 2017-09-14 | Outpatient (CLI) | payer BC | LOC: LAB 15:05 | PROVIDERS: ATTEND Surgery | DX: L98.492 Non-pressure chronic ulcer of skin of other sites with fat layer exposed (principal); B96.5 Pseudomonas (aeruginosa) (mallei) (pseudomallei) as the cause of diseases classified elsewhere; E46 Unspecified protein-calorie malnutrition; T81.31XA Disruption of external operation (surgical) wound, not elsewhere classified, initial encounter | CPT/HCPCS: 36415; 84134; 84590 ==

== ENCOUNTER → 2017-09-23 | Outpatient (CLI) | payer BC | LOC: WOUNDCARE 14:01 | PROVIDERS: ATTEND Surgery | DX: L98.492 Non-pressure chronic ulcer of skin of other sites with fat layer exposed (principal); T81.31XA Disruption of external operation (surgical) wound, not elsewhere classified, initial encounter; B96.5 Pseudomonas (aeruginosa) (mallei) (pseudomallei) as the cause of diseases classified elsewhere; E46 Unspecified protein-calorie malnutrition | CPT/HCPCS: 11042 ==

== ENCOUNTER → 2017-09-30 | Outpatient (CLI) | payer BC | LOC: WOUNDCARE 13:11 | PROVIDERS: ATTEND Surgery | DX: L98.492 Non-pressure chronic ulcer of skin of other sites with fat layer exposed (principal); T81.31XA Disruption of external operation (surgical) wound, not elsewhere classified, initial encounter; B96.5 Pseudomonas (aeruginosa) (mallei) (pseudomallei) as the cause of diseases classified elsewhere; E46 Unspecified protein-calorie malnutrition | CPT/HCPCS: 11043 ==

== ENCOUNTER → 2017-10-12 | Outpatient (CLI) | payer BC | LOC: WOUNDCARE 13:56 | PROVIDERS: ATTEND Surgery | DX: L98.492 Non-pressure chronic ulcer of skin of other sites with fat layer exposed (principal); T81.31XA Disruption of external operation (surgical) wound, not elsewhere classified, initial encounter | CPT/HCPCS: 11042; 87070; 87075; 87077; 87205 ==

== ENCOUNTER → 2017-10-19 | Outpatient (CLI) | payer BC | LOC: WOUNDCARE 14:34 | PROVIDERS: ATTEND Surgery | DX: T81.31XA Disruption of external operation (surgical) wound, not elsewhere classified, initial encounter (principal); L98.492 Non-pressure chronic ulcer of skin of other sites with fat layer exposed; B96.5 Pseudomonas (aeruginosa) (mallei) (pseudomallei) as the cause of diseases classified elsewhere | CPT/HCPCS: 11042 ==

== ENCOUNTER → 2017-10-26 | Outpatient (CLI) | payer BC | LOC: WOUNDCARE 13:53 | PROVIDERS: ATTEND Surgery | DX: T81.31XA Disruption of external operation (surgical) wound, not elsewhere classified, initial encounter (principal); L98.492 Non-pressure chronic ulcer of skin of other sites with fat layer exposed; B96.5 Pseudomonas (aeruginosa) (mallei) (pseudomallei) as the cause of diseases classified elsewhere | CPT/HCPCS: 11042 ==

== ENCOUNTER → 2017-11-09 | Outpatient (CLI) | payer BC | LOC: WOUNDCARE 13:33 | PROVIDERS: ATTEND Surgery | DX: L98.492 Non-pressure chronic ulcer of skin of other sites with fat layer exposed (principal); T81.31XA Disruption of external operation (surgical) wound, not elsewhere classified, initial encounter; B96.5 Pseudomonas (aeruginosa) (mallei) (pseudomallei) as the cause of diseases classified elsewhere | CPT/HCPCS: 11042 ==

== ENCOUNTER → 2017-11-16 | Outpatient (CLI) | payer BC | LOC: WOUNDCARE 14:00 | PROVIDERS: ATTEND Surgery | DX: T81.31XA Disruption of external operation (surgical) wound, not elsewhere classified, initial encounter (principal); L98.492 Non-pressure chronic ulcer of skin of other sites with fat layer exposed; B96.5 Pseudomonas (aeruginosa) (mallei) (pseudomallei) as the cause of diseases classified elsewhere | CPT/HCPCS: 11042 ==

== ENCOUNTER → 2017-11-24 | Outpatient (CLI) | payer BC | LOC: WOUNDCARE 13:44 | PROVIDERS: ATTEND Surgery | DX: T81.31XA Disruption of external operation (surgical) wound, not elsewhere classified, initial encounter (principal); L98.492 Non-pressure chronic ulcer of skin of other sites with fat layer exposed; B96.5 Pseudomonas (aeruginosa) (mallei) (pseudomallei) as the cause of diseases classified elsewhere | CPT/HCPCS: 11042 ==

== ENCOUNTER 2017-11-25 12:58 | Outpatient (RCR) | payer BC | END 2018-01-03 | disposition home or self-care (01) | PROVIDERS: ATTEND Family Medicine | DX: R53.81 Other malaise (principal) ==

== ENCOUNTER → 2017-12-01 | Outpatient (CLI) | payer SELFPAY | LOC: WOUNDCARE 13:56 | PROVIDERS: ATTEND Surgery | DX: L98.492 Non-pressure chronic ulcer of skin of other sites with fat layer exposed (principal); T81.31XA Disruption of external operation (surgical) wound, not elsewhere classified, initial encounter | CPT/HCPCS: 11042 ==

== ENCOUNTER → 2017-12-07 | Outpatient (CLI) | payer SELFPAY | LOC: WOUNDCARE 13:59 | PROVIDERS: ATTEND Surgery | DX: L98.492 Non-pressure chronic ulcer of skin of other sites with fat layer exposed (principal); T81.31XA Disruption of external operation (surgical) wound, not elsewhere classified, initial encounter ==

== ENCOUNTER → 2017-12-16 | Outpatient (CLI) | payer SELFPAY | LOC: WOUNDCARE 14:18 | PROVIDERS: ATTEND Surgery | DX: L98.492 Non-pressure chronic ulcer of skin of other sites with fat layer exposed (principal); T81.31XA Disruption of external operation (surgical) wound, not elsewhere classified, initial encounter; L92.8 Other granulomatous disorders of the skin and subcutaneous tissue | CPT/HCPCS: 17250 ==

== ENCOUNTER → 2017-12-25 | Outpatient (CLI) | payer SELFPAY | LOC: WOUNDCARE 11:27 | PROVIDERS: ATTEND Surgery | DX: L98.492 Non-pressure chronic ulcer of skin of other sites with fat layer exposed (principal); T81.31XA Disruption of external operation (surgical) wound, not elsewhere classified, initial encounter | CPT/HCPCS: 99212 ==

== ENCOUNTER 2018-05-21 10:00 | Outpatient (CLI) | payer OTHER ==
[~2018-05-21] VITALS: Ht 170.2 cm; Wt 60.5 kg
[~2018-05-21 10:00] MED LIST changes: -CITA20TA7 PO; +CITA20TA9 PO
[2018-05-21] MEDS ORDERED: OLME40TA12 PO (10:05)
[2018-05-21] MEDS ORDERED: MAGN400C PO (10:05)
== END 2018-05-21 10:12 | disposition home or self-care (01) ==
LOC: PREOP 10:00
PROVIDERS: ATTEND Surgery
DX: Z29.8 Encounter for other specified prophylactic measures (principal)

== ENCOUNTER 2018-06-09 08:00 | Inpatient (IN) | payer MEDICAID, OTHER ==
[~2018-06-09] VITALS: Ht 170.2 cm; Wt 61.2 kg
[~2018-06-09 08:00] MED LIST changes: -LOSA50TA36 PO; +LOSA50TA7 PO; +MAGN400C PO
[2018-07-15] MEDS ORDERED: ESTR-85 PO (11:42)
[2018-07-15] MEDS ORDERED: AMLO5TAB7 PO (11:42)
[2018-07-15] MEDS ORDERED: SIMV20TA3 PO (14:24)
[2018-07-15] MEDS ORDERED: TERA1CAP3 PO (14:24)
[2018-07-15] MEDS ORDERED: ESTR1TAB37 PO (14:24)
[2018-07-15] MEDS ORDERED: LEVO100T7 PO (14:24)
[2018-07-15] MEDS ORDERED: SENN-36 PO (15:48)
[2018-07-15] MEDS ORDERED: DOCU-143 PO (15:48)
[2018-07-15] MEDS ORDERED: PROP225T2 PO (15:52)
[2018-07-21] VITALS (17 sets, daily range): BP systolic 77–148; BP diastolic 38–74
[2018-07-21] MEDS ORDERED: FLEET ENEMA ADULT 1 EA BTL ONE (06:04)
[2018-07-21] MEDS ORDERED: CLINDAMYCIN 900 MG/50 ML IVPB 50 ML IV ONE ×3 (06:29→11:43)
[2018-07-21] MEDS ORDERED: metroNIDAZOLE 500MG/100ML IVPB 100 ML ONE ×2 (06:29→11:40)
[2018-07-21] MEDS ORDERED: ROCURONIUM 10 MG/ML 5 ML SYRINGE IV ONE ×2 (06:38→09:24)
[2018-07-21] MEDS ORDERED: SEVOFLURANE (ULTANE) 15 ML INHAL SOLN ONE ×16 (06:38→12:47)
[2018-07-21] MEDS ORDERED: LIDOCAINE PF 2% 5 ML (XYLOCAINE) VIAL ONE (06:38)
[2018-07-21] MEDS ORDERED: DEXAMETHASONE 10 MG/ML (DECADRON) 1 ML VIAL ONE (06:38)
[2018-07-21] MEDS ORDERED: ONDANSETRON 4 MG/2 ML (SDV) Z0FRAN ONE ×2 (06:38→12:48)
[2018-07-21] MEDS ORDERED: proPOfol 200 MG/20 ML (DIPRIVAN) VIAL IV ONE (06:38)
[2018-07-21] MEDS ORDERED: fentaNYL INJECTION 100 MCG/2 ML AMP ONE ×3 (06:39→11:18)
[2018-07-21] MEDS ORDERED: MIDAZOLAM 2 MG/2 ML (VERSED) VIAL ONE (06:39)
[2018-07-21] MEDS: LACTATED RINGERS 1,000 ML IV PRN ×5 (06:53→13:20)
[2018-07-21] MEDS ORDERED: metroNIDAZOLE 500MG/100ML IVPB 100 ML IV ONE (07:00)
[2018-07-21] MEDS ORDERED: FLEET ENEMA ADULT 1 EA BTL PR ONE (07:00)
[2018-07-21] MEDS ORDERED: BUP/EPI 0.5% 1:200,000 (SENSORCAINE) 30 ML VIAL ONE (07:17)
[2018-07-21] MEDS ORDERED: HEParin (CENTRAL IV FLUSH) 500 UNIT/5 ML SYR ONE (07:17)
--- NOTE | 2018-07-21 07:58 | Progress Note-Pre Operative ---
Pre-Operative Progress Note H&P Reviewed The H&P was reviewed, patient examined and no changes noted. Date Seen by Provider: Jun 08, 2018 Time Seen by Provider: 11:00 Date H&P Reviewed: Jul 21, 2018 Time H&P Reviewed: 07:58 Pre-Operative Diagnosis: Resolved sigmoid perforation MACY TALAVERA MD Jul 21, 2018 7:58 am
[2018-07-21] MEDS ORDERED: GLYCOPYRROLATE 0.2 MG/ML (ROBINUL) 2 ML VIAL ONE ×2 (08:56→12:36)
[2018-07-21] MEDS ORDERED: PHENYLEPHRINE 100 MCG/ML 10 ML (ANESTHESIA) SYR ONE ×3 (10:24→13:58)
[2018-07-21] MEDS ORDERED: NEOSTIGMINE 1 MG/ML 5 ML SYRINGE ONE (12:36)
[2018-07-21] MEDS ORDERED: LACTATED RINGERS 1,000 ML IV PRN (13:30)
[2018-07-21] MEDS ORDERED: SUGAMMADEX 500 MG/5 ML VIAL (BRIDION) IV ONE (13:45)
--- NOTE | 2018-07-21 14:06 | Operative Report ---
Operative Report Date of Procedure/Surgery Jul 21, 2018 Surgeon (s) MACY TALAVERA MD Video Rental Clerk (s): N/A Post-Operative Diagnosis Multiple walled off mamta-colic abscesses along the left colon and the pericecal region Procedure Performed Central line placement Diagnostic laparoscopy converted to open total colectomy with ileorectal anastomosis Description of Procedure Anesthesia Type: General Estimated blood loss (mL): 500 mL Specimen(s) collected/removed Colon and terminal ileum Description of the Procedure Indication for the procedure: About 18 months ago, this lady presented with fecal peritonitis due to stercoral perforation of the sigmoid colon. This was managed with Sim's procedure, involving an end sigmoid colostomy. She developed multisystem organ dysfunction requiring prolonged ventilatory support and tracheostomy. Once she achieved a reasonable recovery, she requested reversal of the colostomy. Preoperative colonoscopy was negative for any polyps. Informed consent was obtained after reviewing the details of the operation and highlighting increased complications, namely intra-abdominal abscess, further organ dysfunction, anastomotic leak requiring fecal diversion using loop ileostomy and cardiorespiratory dysfunction. Description of the procedure: She was placed supine on the operating table and general anesthesia induced using an endotracheal tube. Clindamycin and Flagyl were administered intravenously as prophylaxis against wound infection. Sequential compression devices were placed around her legs, to minimize the risk of venous thrombosis. A Reynolds catheter was placed to monitor urine output during the perioperative period. 1. Central line placement: Her neck was prepared and draped in the usual sterile manner. Right internal jugular vein was localized using a 12 MHz ultrasound probe and a floppy guidewire introduced and the heart. Subcutaneous tract was gently dilated using a silastic sheath and a triple-lumen, central venous catheter advanced using Seldinger technique. All the channels were aspirated and flushed with heparinized saline. The catheter was secured using a silk suture and a dressing applied. 2. Diagnostic laparoscopy/converted to open total colectomy with ileorectal anastomosis: She was placed in combined lithotomy position, her legs being supported on stirrups to achieve access to the rectum for creating anastomosis. Abdomen and perineum were prepared and draped in the usual sterile manner. Initially, pneumoperitoneum was established using a Veress needle introduced over the right subcostal margin. A 5 mm trocar was placed and anatomy visualized using the conventional laparoscope. Multiple adhesions involving the whole abdomen were encountered precluding further progress. Therefore, it is felt reasonable to proceed with an open operation. Abdomen was opened by a midline incision. Small bowel adhesions were taken down , revealing a long rectal stump. The proximal end was rather friable due to involvement in previous abscess formation. Therefore, the redundant sigmoid colon was transected and the rectum stapled using an Endo HEMA, 2.5 mm stapler. The integrity of the staple line was checked by air insufflation the other rectum, using a rigid proctoscope. Subsequent, we proceeded to isolate the colostomy. At this point, it became clear that there were multiple, sealed off pericolic abscesses involving the descending colon, splenic flexure and the ascending colon. It was felt appropriate to perform total colectomy and fashion an ileorectal anastomosis to avoid further complications. End-to-end colon was mobilized using a combination of Harmonic scalpel and scissors. Left colic vessels were controlled using Harmonic scalpel. Middle colic, right colic and the ileocolic vascular pedicles were controlled using 0 silk sutures. Ileocecal junction was mobilized and the terminal ileum transected using an Endo HEMA stapler. Pericolic abscess around the hepatic flexure involve the third part of the duodenum. While this was , a 3 mm tear of the duodenum was noticed. This was repaired using a first layer of 3-0 Vicryl and a second layer of 3-0 silk as a Lamberts suture. 25 mm EEA stapler was chosen for the anastomosis. The anvil was secured into the terminal ileum 2-0 Prolene sutures as a pursestring. The shaft of the anastomosis was introduced in the rectum and the spike brought up against the abdominal wall. The anvil was then docked to the stapler, which was then closed and activated. We obtained 2 intact donuts. Integrity of the ileorectal anastomosis was confirmed further by air insufflation using a rigid proctoscope and filling up the pelvis with sterile saline. It was intact with no leak. Abdominal cavity was thoroughly irrigated with copious amounts of warm saline and a 15 [place] Miguel-Hernandez drain left over the duodenum. It was secured using 2-0 silk sutures. Fascia along the midline wound was closed using #2 Prolene. Skin was left open to facilitate healing by secondary intention, in anticipation of wound infection. The fascia over the colostomy site along the left lower quadrant was approximated using 2 layers of #1 Prolene. Subcutaneous tissue was approximated using 3-0 PDS and skin left open to allow healing by secondary intention. She tolerated the procedure reasonably well. Findings of the Procedure See op report Allergies and Home Medications Allergies Coded Allergies: ciprofloxacin (Verified Allergy, Mild, 05/21/18) lisinopril (Verified Allergy, Mild, 05/21/18) cefuroxime (Verified Allergy, Unknown, 05/21/18) Home Medications Amlodipine Besylate 5 Mg Tablet, 10 MG PO DAILY, (Reported) TAKES 2 (5MG) TABLETS Estrogen,Lilia/Me-Testosterone 1 Each Tablet, 1 TAB PO HS, (Reported) Levothyroxine Sodium 100 Mcg Tablet, 100 MCG PO DAILY, (Reported) Magnesium Oxide 400 Mg Capsule, 400 MG PO HS, (Reported) Olmesartan Medoxomil 40 Mg Tablet, 20 MG PO DAILY, (Reported) TAKES 1/2 (40MG) TABLET Propafenone HCl 225 Mg Tablet, 225 MG PO TID, (Reported) Sennosides 8.6 Mg Tablet, 2 TAB PO BID, (Reported) Simvastatin 20 Mg Tablet, 20 MG PO HS, (Reported) Terazosin HCl 1 Mg Capsule, 1 MG PO BID, (Reported) Patient Home Medication List Home Medication List Reviewed: Yes MACY TALAVERA MD Jul 21, 2018 2:06 pm
[2018-07-21] MEDS ORDERED: NS IV 1000 ML 1,000 ML ONE ×2 (14:19→14:35)
[2018-07-21] MEDS ORDERED: LACTATED RINGERS 1,000 ML IV SCH (14:45)
[2018-07-21] MEDS: LACTATED RINGERS 1,000 ML IV SCH ×2 (14:46→15:30)
[2018-07-21 14:49] LABS: HEMOGLOBIN 11.6 G/DL (11.5-16.0); RED BLOOD COUNT 3.93 10^6/uL (4.35-5.85); RED CELL DISTRIBUTION WIDTH 13.2 % (10.0-14.5); WHITE BLOOD COUNT 8.8 10^3/uL (4.3-11.0)
[2018-07-21 15:06] LABS: CALCIUM 8.2 MG/DL (8.5-10.1); POTASSIUM 3.9 MMOL/L (3.6-5.0)
[2018-07-21] MEDS: DOPamine DRIP 250 ML IV SCH (15:27)
[2018-07-21] MEDS ORDERED: ROPIVACAINE 5MG/ML 30ML VIAL ONE (15:43)
[2018-07-21] MEDS ORDERED: ALBUMIN 25% 25 GM/100 ML 100 ML IV ONE (15:48)
[2018-07-21] MEDS ORDERED: NOREPINEPHRINE 4 MG/4 ML (LEVOPHED) AMP IV ONE (15:51)
[2018-07-21] MEDS ORDERED: NS (IVPB) 250 ML ONE (15:51)
[2018-07-21] MEDS ORDERED: ALBUMIN 25% 25 GM/100 ML 50 ML IV ONE (16:00)
[2018-07-21] MEDS ORDERED: NOREPINEPHRINE 4 MG in NS (IVPB) 250 ML IV SCH (16:00)
--- NOTE | 2018-07-21 16:01 | Progress Note-Standard ---
Standard Progress Note Progress Notes/Assess & Plan Date Seen by Provider: Jul 21, 2018 Time Seen by Provider: 14:45 Progress/Assessment & Plan Asked to do A-line. Left wrist prepped with ChloraPrep multiple A-line attempts with palpation and US guidance. Unable to access artery. BRIJESH STOVALL CRNA Jul 21, 2018 16:01
[2018-07-21] MEDS: ONDANSETRON 4 MG/2 ML (SDV) Z0FRAN IVP PRN (17:25)
[2018-07-21] MEDS: fentaNYL INJECTION 100 MCG/2 ML AMP IV PRN ×6 (17:26→23:38)
[2018-07-21] MEDS: metroNIDAZOLE 500MG/100ML IVPB 100 ML IV SCH (20:26)
[2018-07-21] MEDS: CLINDAMYCIN 600 MG/50 ML IVPB 50 ML IV SCH ×2 (20:26→22:00)
[2018-07-21] MEDS: SIMvastatin 20 MG (ZOCOR) TAB PO SCH (20:26)
[2018-07-22] VITALS (24 sets, daily range): BP systolic 106–151; BP diastolic 50–94
[2018-07-22] MEDS: fentaNYL INJECTION 100 MCG/2 ML AMP IV PRN ×9 (00:15→10:20)
[2018-07-22] MEDS: LACTATED RINGERS 1,000 ML IV SCH ×3 (01:22→18:51)
[2018-07-22 03:50] LABS: BASOPHILS % (AUTO) 0 % (0-10); EOSINOPHILS % (AUTO) 0 % (0-10); HEMATOCRIT 32 % (35-52); HEMOGLOBIN 10.5 G/DL (11.5-16.0); LYMPHOCYTES # (AUTO) 0.4 X 10^3 (1.0-4.0); LYMPHOCYTES % (AUTO) 5 % (12-44); MEAN CORPUSCULAR HEMOGLOBIN 29 PG (25-34); MEAN CORPUSCULAR HGB CONC 33 G/DL (32-36); MEAN CORPUSCULAR VOLUME 88 FL (80-99); MEAN PLATELET VOLUME 9.8 FL (7.4-10.4); MONOCYTES # (AUTO) 0.5 X 10^3 (0.0-1.0); MONOCYTES % (AUTO) 6 % (0-12); NEUTROPHILS # (AUTO) 7.5 X 10^3 (1.8-7.8); NEUTROPHILS % (AUTO) 89 % (42-75); PLATELET COUNT 198 10^3/uL (130-400); RED BLOOD COUNT 3.59 10^6/uL (4.35-5.85); RED CELL DISTRIBUTION WIDTH 13.2 % (10.0-14.5); WHITE BLOOD COUNT 8.4 10^3/uL (4.3-11.0)
[2018-07-22 04:06] LABS: BILIRUBIN,TOTAL 0.5 MG/DL (0.1-1.0); CALCIUM 7.8 MG/DL (8.5-10.1); CREATININE SERUM 1.01 MG/DL (0.60-1.30); MAGNESIUM 1.8 MG/DL (1.8-2.4); POTASSIUM 4.4 MMOL/L (3.6-5.0); TOTAL PROTEIN 4.5 GM/DL (6.4-8.2)
[2018-07-22] MEDS: metroNIDAZOLE 500MG/100ML IVPB 100 ML IV SCH ×2 (04:44→12:26)
[2018-07-22] MEDS: POTASSIUM CL 10MEQ/50ML IVPB 50 ML IV SCH (05:43)
[2018-07-22] MEDS: MAGNESIUM 1 GM/100 ML IVPB 100 ML IV SCH (05:44)
[2018-07-22] MEDS: KCL 20 MEQ TAB (K-DUR) PO SCH (05:44)
[2018-07-22] MEDS: CLINDAMYCIN 600 MG/50 ML IVPB 50 ML IV SCH ×2 (06:19→14:04)
[2018-07-22] MEDS: LEVOTHYROXINE 100 MCG (LEVOTHROID) TAB PO SCH (06:20)
--- NOTE | 2018-07-22 06:39 | Diagnostic Imaging Report ---
INDICATION: Shortness of breath Portable chest 3:15 AM There is an NG tube that enters the stomach. Right IJ central line tip projects over the SVC. Heart size and pulmonary vascularity are normal. Lungs are clear. There are no effusions or pneumothoraces. IMPRESSION: No acute abnormalities in the chest Dictated by: Dictated on workstation # [id number]
--- NOTE | 2018-07-22 06:42 | Anesthesia-General Post-Op ---
General Patient Condition Mental Status/LOC: Same as Preop Cardiovascular: Satisfactory Nausea/Vomiting: Absent Respiratory: Satisfactory Pain: Controlled Complications: Absent Post Op Complications Complications None Follow Up Care/Instructions Patient Instructions None needed. Anesthesia/Patient Condition Patient Condition Patient is doing well, no complaints, stable vital signs, no apparent adverse anesthesia problems. No complications reported per nursing. DIANE DEY CRNA Jul 22, 2018 06:42
[2018-07-22] MEDS: amLODIPine 10 MG (NORVASC) TAB PO SCH (07:59)
--- NOTE | 2018-07-22 08:54 | Consultation ---
History of Present Illness History of Present Illness Patient Consulted On(morgan/time) 07/22/18 08:44 Date Seen by Provider: Jul 22, 2018 Time Seen by Provider: 08:44 Reason for Visit: PCP consult, medical management History of Present Illness 62 yo F admitted for colostomy take down that resulted from a bowel perforation March 2017- The surgery started robotic but was converted to open due to adhesions. Abscesses were noted as well. A complete colectomy was performed with a resulting ileorectal anastamosis. Pt was extubated successfully yesterday and now she is on room air. She reports abdominal pain of course. She expects her mood and life to improve after this surgery. Her mood is decent. No issues with current medication regimen. Pt also has hypothyroidism. Will follow along during her hospitalization Allergies and Home Medications Allergies Coded Allergies: ciprofloxacin (Verified Allergy, Mild, 05/21/18) lisinopril (Verified Allergy, Mild, 05/21/18) cefuroxime (Verified Allergy, Unknown, 05/21/18) Home Medications Amlodipine Besylate 5 Mg Tablet, 10 MG PO DAILY, (Reported) TAKES 2 (5MG) TABLETS Estrogen,Lilia/Me-Testosterone 1 Each Tablet, 1 TAB PO HS, (Reported) Levothyroxine Sodium 100 Mcg Tablet, 100 MCG PO DAILY, (Reported) Magnesium Oxide 400 Mg Capsule, 400 MG PO HS, (Reported) Olmesartan Medoxomil 40 Mg Tablet, 20 MG PO DAILY, (Reported) TAKES 1/2 (40MG) TABLET Propafenone HCl 225 Mg Tablet, 225 MG PO TID, (Reported) Sennosides 8.6 Mg Tablet, 2 TAB PO BID, (Reported) Simvastatin 20 Mg Tablet, 20 MG PO HS, (Reported) Terazosin HCl 1 Mg Capsule, 1 MG PO BID, (Reported) Patient Home Medication List Home Medication List Reviewed: Yes Past Rlggkjl-Bbqekb-Qmjucw Hx Patient Social History Alcohol Use: Denies Use Recreational Drug Use: No Smoking Status: Former Smoker Former Smoker, Quit: April 15, 2017 Recent Foreign Travel: No Contact w/Someone Who Travel: No Recent Infectious Disease Expo: No Recent Hopitalizations: No Seasonal Allergies Seasonal Allergies: Yes Past Medical History Surgeries: Yes (STENT RIGHT KIDNEY, CARPAL TUNNEL, BOWEL RECTION/COLOSTOMY) Abdominal, Appendectomy, Bowel Surgery, Cardiac, Gallbladder, Hysterectomy, Orthopedic, Renal, Thyroidectomy Respiratory: Yes (Resp failure, on ventilator at [place] 2017) Currently Using CPAP: No Currently Using BIPAP: No Cardiac: Yes (SVT status post ablation, mitral valve prolapse) Hypertension, Irregular Heartbeat Neurological: No Reproductive Disorders: No HEALTHCARE LIAISON History: Hysterectomy Sexually Transmitted Disease: No HIV/AIDS: No Genitourinary: Yes (has Rt kidney stent for B/P) Gastrointestinal: Yes (perforated bowel, COLOSTOMY) Chronic Constipation Musculoskeletal: Yes Arthritis Endocrine: Yes (thyroidectomy) Hypothyroidsim HEENT: Yes (wears reading glasses) Loss of Vision: Bilateral Hearing Impairment: Denies Cancer: No Psychosocial: No Anxiety, Depression Integumentary: No (thin, bruising) Blood Disorders: No Adverse Reaction/Blood Tranf: No Review of Systems Review of Systems General: No Chills, No Night Sweats HEENT: No Head Aches Pulmonary: No Dyspnea, No Cough Cardiovascular: No: Chest Pain Gastrointestinal: Abdominal Pain; No: Nausea Genitourinary: No Dysuria, No Frequency Musculoskeletal: No: neck pain, shoulder pain Neurological: Weakness; No: Confusion Physical Exam Vital Signs Vital Signs - First Documented 07/21/18 07/21/18 07/21/18 07:05 14:14 15:10 Temp 95.2 Pulse 92 Resp 14 B/P (MAP) 99/43 (61) Pulse Ox 100 O2 Delivery Nasal Cannula O2 Flow Rate 2.00 FiO2 50 Capillary Refill : Height, Weight, BMI Height: 5'7.00" Weight: 131lbs. 6.0oz. [id number]; 20.6 BMI Method:Stated General Appearance: No Apparent Distress, WD/WN HEENT: PERRL/EOMI Neck: Non Tender, Supple Respiratory: Chest Non Tender, Lungs Clear Cardiovascular: Regular Rate, Rhythm, No Edema, No Gallop Gastrointestinal: Non Tender, Soft (bandaged) Rectal: Deferred Back: No CVA Tenderness Extremity: Non Tender, No Calf Tenderness Neurologic/Psychiatric: Alert, Oriented x3, No Motor/Sensory Deficits, Normal Mood/Affect Skin: Normal Color, Warm/Dry Assessment/Plan Assessment/Plan Admission Dx ostomy reversal Admission Status: Inpatient Order (span 2 midnights) Reason for Inpatient Admission: patient underwent open surgery to reverse her ostomy- Dr. Ng completed a iliorectal anastomosis she will will require close inpatient monitoring over the next week. Assessment and Plan 62 yo F s/p iliorectal anastomosis- Dr. Ng, Surgery. doing well (F43.21) Adjustment disorder with depressed mood- stable- contine home medications. (I10) Essential (primary) hypertension- monitor blood pressure- continue home medications. (E03.9) Hypothyroidism- continue levothyroxine- will check tsh as an outpatient in months. Dispo: doing well s/p surgery- will follow along. off pressors. BATOOL MEJÍA MD Jul 22, 2018 08:54
[2018-07-22] MEDS ORDERED: fentaNYL INJECTION 5,000 MCG in EMPTY IV BAG (PVC) 1 EA IV SCH (10:15)
--- NOTE | 2018-07-22 13:56 | Progress Note-Standard ---
Standard Progress Note Progress Notes/Assess & Plan Date Seen by Provider: Jul 22, 2018 Time Seen by Provider: 13:54 Progress/Assessment & Plan Urine output improved with fluid bolus administration. Normotensive. Off vasopressors. Awake and comfortable. Encouraged using incentive spirometry. Electrolytes within normal limits. Due to the requirement to coninue monitoring urine output, Reynolds catheter will be retained till tomorrow Final Diagnosis Resolved sigmoid perforation MACY TALAVERA MD Jul 22, 2018 1:56 pm
[2018-07-22] MEDS: ENOXAPARIN 40 MG/0.4 ML (LOVENOX) SYR SC SCH (14:00)
[2018-07-22] MEDS: DOPamine DRIP 250 ML IV SCH (15:05)
[2018-07-22] MEDS: PANTOPRAZOLE 40 MG (PROTONIX) VIAL IV SCH ×2 (15:10→22:04)
[2018-07-22] MEDS: ONDANSETRON 4 MG/2 ML (SDV) Z0FRAN IVP PRN (17:25)
--- NOTE | 2018-07-22 20:11 | Diagnostic Imaging Report ---
INDICATION: Evaluate tube placement. FINDINGS: Nasogastric tube in the body of the stomach. There is some left basilar atelectasis and/or pneumonitis and small left pleural effusion. Right lung is clear. There is no pneumothorax. Mediastinum is unremarkable. IMPRESSION: Nasogastric tube in satisfactory position. Left basilar atelectasis and/or pneumonitis and small left pleural effusion Dictated by: Dictated on workstation # [id number]
[2018-07-22] MEDS: SIMvastatin 20 MG (ZOCOR) TAB PO SCH (22:04)
[2018-07-23] VITALS (18 sets, daily range): BP systolic 121–145; BP diastolic 52–72
[2018-07-23] MEDS: LACTATED RINGERS 1,000 ML IV SCH ×3 (02:47→18:42)
[2018-07-23 04:00] LABS: BASOPHILS % (AUTO) 0 % (0-10); EOSINOPHILS % (AUTO) 0 % (0-10); HEMATOCRIT 29 % (35-52); HEMOGLOBIN 9.8 G/DL (11.5-16.0); LYMPHOCYTES # (AUTO) 0.6 X 10^3 (1.0-4.0); LYMPHOCYTES % (AUTO) 8 % (12-44); MEAN CORPUSCULAR HEMOGLOBIN 30 PG (25-34); MEAN CORPUSCULAR HGB CONC 34 G/DL (32-36); MEAN CORPUSCULAR VOLUME 88 FL (80-99); MEAN PLATELET VOLUME 10.4 FL (7.4-10.4); MONOCYTES # (AUTO) 0.3 X 10^3 (0.0-1.0); MONOCYTES % (AUTO) 4 % (0-12); NEUTROPHILS # (AUTO) 7.3 X 10^3 (1.8-7.8); NEUTROPHILS % (AUTO) 89 % (42-75); PLATELET COUNT 168 10^3/uL (130-400); RED BLOOD COUNT 3.27 10^6/uL (4.35-5.85); RED CELL DISTRIBUTION WIDTH 13.6 % (10.0-14.5); WHITE BLOOD COUNT 8.2 10^3/uL (4.3-11.0)
[2018-07-23 04:19] LABS: BUN/CREATININE RATIO 23; CALCIUM 8.6 MG/DL (8.5-10.1); CARBON DIOXIDE 25 MMOL/L (21-32); CHLORIDE 107 MMOL/L (98-107); CREATININE SERUM 0.83 MG/DL (0.60-1.30); GFR ESTIMATED > 60; GLUCOSE 91 MG/DL (70-105); MAGNESIUM 1.6 MG/DL (1.8-2.4); PHOSPHORUS 2.7 MG/DL (2.3-4.7); POTASSIUM 4.3 MMOL/L (3.6-5.0); SODIUM 137 MMOL/L (135-145)
[2018-07-23] MEDS: MAGNESIUM 1 GM/100 ML IVPB 100 ML IV SCH ×3 (06:01→07:48)
[2018-07-23] MEDS: POTASSIUM CL 10MEQ/50ML IVPB 50 ML IV SCH (06:01)
[2018-07-23] MEDS: KCL 20 MEQ TAB (K-DUR) PO SCH (06:01)
[2018-07-23] MEDS: LEVOTHYROXINE 100 MCG (LEVOTHROID) TAB PO SCH (06:37)
--- NOTE | 2018-07-23 08:52 | Diagnostic Imaging Report ---
INDICATION: Dyspnea. TECHNIQUE: A single view chest was performed at 3:04 AM. CORRELATION STUDY: 07/22/2018. FINDINGS: The heart size is enlarged. The vasculature is overall within normal limits. A gastric tube and right-sided central line remain in place. The tip of the central line is in the right atrium. The lung pinedo are improved. Some residual infiltrate or atelectasis at the left lung base does remain. Rightward curvature of the thoracic spine results in distortion of the chest anatomy. IMPRESSION: No radiographic findings to suggest an acute abnormality of the chest. Dictated by: Dictated on workstation # [id number]
[2018-07-23] MEDS: amLODIPine 10 MG (NORVASC) TAB PO SCH (09:49)
[2018-07-23] MEDS: PANTOPRAZOLE 40 MG (PROTONIX) VIAL IV SCH ×2 (09:49→21:07)
[2018-07-23] MEDS: ENOXAPARIN 40 MG/0.4 ML (LOVENOX) SYR SC SCH (12:27)
--- NOTE | 2018-07-23 15:35 | Progress Note-Standard ---
Standard Progress Note Progress Notes/Assess & Plan Date Seen by Provider: Jul 23, 2018 Time Seen by Provider: 15:33 Progress/Assessment & Plan Urine output improved with fluid bolus administration. Normotensive. Off vasopressors. Awake and comfortable. Encouraged using incentive spirometry. Electrolytes within normal limits. Due to the requirement to continue monitoring urine output, Reynolds catheter will be retained till tomorrow. Pain control better. Wound dry.Minimal NG output. Vitals stable.Could be transferred to the floor Final Diagnosis Resolved sigmoid perforation MACY TALAVERA MD Jul 23, 2018 15:35
--- NOTE | 2018-07-23 15:43 | Physical Therapy Evaluation ---
PT Evaluation-General Medical Diagnosis Admission Date Jul 21, 2018 at 05:54 Medical Diagnosis: Reverse colostomy Onset Date: Jul 21, 2018 Therapy Diagnosis Therapy Diagnosis: weakness; abn gait Height/Weight Height (Feet): 5 Height (Inches): 7.00 Weight (Pounds): 131 Weight (Ounces): 6.0 Precautions Precautions/Isolations: Fall Prevention, Standard Precautions Weight Bear Status Right Lower Extremity: Right Weight Bearing/Tolerated Left Lower Extremity: Left Weight Bearing/Tolerated Referral Physician: Hernandez Reason for Referral: Evaluation/Treatment Medical History Pertinent Medical History: Arthritis, HTN, Hypothroidism Current History Admitted to hospital for a colostomy reversal Reviewed History: Yes Social History Home: Single Level Current Living Status: Spouse Entry Into Home: Stairs With Railing Prior/Core FIM Prior Level of Function Functional M[place]racken Measure 0=Not Assessed/NA 4=Minimal Assistance 1=Total Assistance 5=Supervision or Setup 2=Maximal Assistance 6=Modified Mccracken 3=Moderate Assistance 7=Complete Mccracken Pt was indep to mod indep at [facility] PT Evaluation-Current Subjective Agrees to PT and wants to get out of bed to the chair. Reports she does feel weak. Objective Patient Orientation: Person, Place, Time, Situation Problem Solving: Good Attachments: NG Tube, Oxygen, Reynolds Catheter, IV ROM/Strength ROM Lower Extremities wFL Strength Lower Extremities grossly 4-/5 Integumentary/Posture Integumentary refer to nursing notes. Bowel Incontinence: No Bladder Incontinence: Reynolds Cath Posture symmetrical Neuromuscular (Tone, Coordination, Reflexes) intact and functional Sensory Vision: Functional Hearing: Functional Sensation Right Lower Extremit: Intact Sensation Left Lower Extremity: Intact Transfers Functional Mccracken Measure 0=Not Assessed/NA 4=Minimal Assistance 1=Total Assistance 5=Supervision or Setup 2=Maximal Assistance 6=Modified Mccracken 3=Moderate Assistance 7=Complete Mccracken Transfers (B, C, W/C) (FIM): 4 Supine to/from Sit: 4 Sit to/from Stand: 4 bed t/f WC(FIM only if WC use): 4 (fWW; CG to min assist for safety; took steps only) up in chair post treatment; nursing present; abdominal binder used when up Gait Comments/Gait Description Pt took 4-5 steps to transfer to the chair. Up in chair post treatment with needs met and nurse present. Assessment/Needs Presents with gross functional weakness post surgical procedure. Will benefit from short term PT to address functional strength and mobiltity to allow her to return home. Rehab Potential: Good PT Freelance Translator Goals Freelance Translator Goals PT Snf Goals Time Frame: Jul 30, 2018 Transfers (B,C,W/C) (FIM): 6 Gait (FIM): 6 PT Plan Problem List Problem List: Activity Tolerance, Functional Strength, Safety, Balance, Gait, Transfer, Bed Mobility Treatment/Plan Treatment Plan: Continue Plan of Care Treatment Plan: Bed Mobility, Education, Functional Activity Carlos A, Functional Strength, Gait, Safety, Therapeutic Exercise, Transfers Treatment Duration: Jul 30, 2018 Frequency: 6 times per week Estimated Hrs Per Day: .5 hour per day Patient and/or Family Agrees t: Yes Safety Risks/Education Patient Education: Transfer Techniques, Safety Issues Teaching Recipient: Patient Teaching Methods: Discussion Response to Teaching: Reinforcement Needed Time/GCodes Time In: 1520 Time Out: 1540 Total Billed Treatment Time: 20 Total Billed Treatment visit EVM 20 LILY MATTHEWS PT Jul 23, 2018 15:43
[2018-07-23] MEDS: KETOROLAC 15 MG/ML VIAL IVP PRN (15:46)
[2018-07-23] MEDS: DOPamine DRIP 250 ML IV SCH (15:56)
--- NOTE | 2018-07-23 17:00 | Progress Note (SOAP) ---
Subjective Subjective Date Seen by Provider: Jul 23, 2018 Time Seen by Provider: 07:00 No overnight events- doing well reports a dry mouth tolerating sips of water. Review of Systems General: No Chills, No Night Sweats HEENT: No Head Aches Pulmonary: No Dyspnea, No Cough Cardiovascular: No: Chest Pain Gastrointestinal: Abdominal Pain; No: Nausea Genitourinary: No Dysuria, No Frequency Musculoskeletal: No: neck pain, shoulder pain Neurological: Weakness; No: Confusion Objective Exam Vital Signs Vital Signs Date Time Temp Pulse Resp B/P (MAP) Pulse Ox O2 Delivery O2 Flow Rate FiO2 07/23/18 15:00 111 14 128/52 (77) 96 Room Air 07/23/18 14:00 112 13 144/69 (94) 96 Room Air 07/23/18 13:00 86 12 124/72 (89) 95 Room Air 07/23/18 13:00 90 07/23/18 12:00 86 12 129/55 (79) 95 Room Air 07/23/18 11:54 Room Air 07/23/18 11:53 99.4 Room Air 07/23/18 11:00 106 16 145/65 (91) 97 Room Air 07/23/18 10:00 112 20 139/61 (87) 97 Room Air 07/23/18 09:00 86 13 126/65 (85) 96 Room Air 07/23/18 08:30 11 07/23/18 08:25 Room Air 07/23/18 08:19 99.2 Room Air 07/23/18 08:00 81 9 121/56 (77) 94 Room Air 07/23/18 07:00 88 07/23/18 07:00 108 15 137/64 (88) 94 Room Air 07/23/18 06:00 83 11 124/60 (81) 96 Room Air 07/23/18 05:00 93 12 125/64 (84) 95 Room Air 07/23/18 04:00 97 Room Air 07/23/18 04:00 95 12 139/58 (85) 95 Room Air 07/23/18 03:00 86 10 132/67 (88) 95 Room Air 07/23/18 02:00 84 10 128/56 (80) 96 Room Air 07/23/18 01:00 104 13 142/59 (86) 94 Room Air 07/23/18 01:00 97 8/24/18 00:00 97 Room Air 07/23/18 00:00 98 10 136/59 (84) 95 Room Air 07/22/18 23:00 86 11 136/64 (88) 96 Room Air 07/22/18 22:00 111 15 139/69 (92) 97 Room Air 07/22/18 21:00 92 9 127/57 (80) 95 Room Air 07/22/18 21:00 97 Room Air 07/22/18 20:00 96 12 147/75 (99) 96 Room Air 07/22/18 19:00 88 10 132/58 (82) 96 Room Air 07/22/18 19:00 88 07/22/18 18:00 105 18 151/68 (95) 97 Room Air 07/22/18 17:00 97 15 138/61 (86) 97 Room Air I & O 07/23/18 07:00 Intake Total 3375 ml Output Total 1510 ml Balance 1865 ml General Appearance: No Apparent Distress, WD/WN HEENT: PERRL/EOMI Neck: Non Tender, Supple Respiratory: Chest Non Tender, Lungs Clear Cardiovascular: Regular Rate, Rhythm, No Edema, No Gallop Gastrointestinal: Non Tender, Soft (bandaged) Rectal: Deferred Back: No CVA Tenderness Extremity: Non Tender, No Calf Tenderness Neurologic/Psychiatric: Alert, Oriented x3, No Motor/Sensory Deficits, Normal Mood/Affect Skin: Normal Color, Warm/Dry Results Lab Laboratory Tests 07/23/18 03:47: White Blood Count 8.2, Red Blood Count 3.27L, Hemoglobin 9.8L, Hematocrit 29L, Mean Corpuscular Volume 88, Mean Corpuscular Hemoglobin 30, Mean Corpuscular Hemoglobin Concent 34, Red Cell Distribution Width 13.6, Platelet Count 168, Mean Platelet Volume 10.4, Neutrophils (%) (Auto) 89H, Lymphocytes (%) (Auto) 8L , Monocytes (%) (Auto) 4, Eosinophils (%) (Auto) 0, Basophils (%) (Auto) 0, Neutrophils # (Auto) 7.3, Lymphocytes # (Auto) 0.6L, Monocytes # (Auto) 0.3, Eosinophils # (Auto) 0.0, Basophils # (Auto) 0.0, Sodium Level 137, Potassium Level 4.3, Chloride Level 107, Carbon Dioxide Level 25, Anion Gap 5, Blood Urea Nitrogen 19H, Creatinine 0.83, Estimat Glomerular Filtration Rate > 60, BUN/ Creatinine Ratio 23, Glucose Level 91, Calcium Level 8.6, Phosphorus Level 2.7, Magnesium Level 1.6L Assessment/Plan Assessment/Plan Admission Dx ostomy reversal Assessment and Plan 62 yo F s/p iliorectal anastomosis- Dr. Ng, Surgery. doing well (F43.21) Adjustment disorder with depressed mood- stable- mood seems to be more hopeful. (I10) Essential (primary) hypertension- monitor blood pressure- continue home medications. (E03.9) Hypothyroidism- continue levothyroxine- will check tsh as an outpatient in months. Dispo: doing well s/p surgery- will follow along. may transfer to floor today. Admission Dx ostomy reversal Clinical Quality Measures Admission Status Admission Dx ostomy reversal BATOOL MEJÍA MD Jul 23, 2018 17:00
[2018-07-23] MEDS: METOCLOPRAMIDE INJ 10 MG/2 ML (REGLAN) IVP SCH (17:48)
[2018-07-23] MEDS: SIMvastatin 20 MG (ZOCOR) TAB PO SCH (21:07)
[2018-07-24] VITALS: BP 131/60
[2018-07-24] MEDS: METOCLOPRAMIDE INJ 10 MG/2 ML (REGLAN) IVP SCH ×4 (00:24→17:10)
[2018-07-24] MEDS: LACTATED RINGERS 1,000 ML IV SCH (03:00)
[2018-07-24 04:00] VITALS: BP 137/63
[2018-07-24] MEDS: LEVOTHYROXINE 100 MCG (LEVOTHROID) TAB PO SCH (06:43)
[2018-07-24 07:02] LABS: BASOPHILS % (AUTO) 0 % (0-10); EOSINOPHILS % (AUTO) 0 % (0-10); HEMATOCRIT 27 % (35-52); LYMPHOCYTES # (AUTO) 0.8 X 10^3 (1.0-4.0); LYMPHOCYTES % (AUTO) 10 % (12-44); MEAN CORPUSCULAR HEMOGLOBIN 30 PG (25-34); MEAN CORPUSCULAR HGB CONC 34 G/DL (32-36); MEAN CORPUSCULAR VOLUME 88 FL (80-99); MEAN PLATELET VOLUME 10.5 FL (7.4-10.4); MONOCYTES # (AUTO) 0.4 X 10^3 (0.0-1.0); MONOCYTES % (AUTO) 5 % (0-12); NEUTROPHILS # (AUTO) 7.1 X 10^3 (1.8-7.8); NEUTROPHILS % (AUTO) 86 % (42-75); PLATELET COUNT 173 10^3/uL (130-400); RED BLOOD COUNT 3.03 10^6/uL (4.35-5.85); RED CELL DISTRIBUTION WIDTH 14.2 % (10.0-14.5); WHITE BLOOD COUNT 8.3 10^3/uL (4.3-11.0)
[2018-07-24 07:41] LABS: BUN/CREATININE RATIO 27; CALCIUM 8.1 MG/DL (8.5-10.1); CARBON DIOXIDE 22 MMOL/L (21-32); CHLORIDE 106 MMOL/L (98-107); CREATININE SERUM 0.71 MG/DL (0.60-1.30); GFR ESTIMATED > 60; MAGNESIUM 2.2 MG/DL (1.8-2.4); POTASSIUM 3.8 MMOL/L (3.6-5.0); SODIUM 136 MMOL/L (135-145)
[2018-07-24 07:44] LABS: GLUCOSE 48 MG/DL (70-105)
[2018-07-24] MEDS ORDERED: DEXTROSE 50% 50 ML (IMS) SYR ONE (07:45)
[2018-07-24 08:00] VITALS: BP 142/68
[2018-07-24] MEDS ORDERED: D5 NS 1000 ML IV SOLUTION 1,000 ML IV ONE (08:29)
[2018-07-24] MEDS: D5 NS 1000 ML IV SOLUTION 1,000 ML IV SCH ×2 (08:39→17:11)
[2018-07-24] MEDS: amLODIPine 10 MG (NORVASC) TAB PO SCH (09:15)
[2018-07-24] MEDS: PANTOPRAZOLE 40 MG (PROTONIX) VIAL IV SCH ×2 (09:15→20:31)
[2018-07-24] MEDS: KETOROLAC 15 MG/ML VIAL IVP PRN (11:12)
--- NOTE | 2018-07-24 11:16 | Physical Therapy Daily Note ---
PT Daily Note-Current Subjective Pt in bed, agreeable. States she is "sore" but does not provide pain rating. Mental Status Patient Orientation: Person, Place, Time, Situation Attachments: NG Tube, Drains, Reynolds Catheter, IV Transfers Functional Price Measure 0=Not Assessed/NA 4=Minimal Assistance 1=Total Assistance 5=Supervision or Setup 2=Maximal Assistance 6=Modified Price 3=Moderate Assistance 7=Complete IndependenceIRFPAI Quality Coding Scale 6 Independent with activity with or without an assistive device 5 Patient requires set up or clean up by helper. Patient completes activity by themselves 4 Supervision or touching assist (CGA). Perkins provide cues , steadying assist 3 The helper provides less than half the effort to complete the activity 2 The helper provides more than half the effort to complete the activity 1 Dependent. The helper does all the effort to complete an activity 7 Patient refused to complete or attempt activity 9 The patient did not perform the activity before the current illness or injury 88 Not attempted due to Medical conditions or safety concerns Transfers (B, C, W/C) (FIM): 3 Supine to/from Sit: 3 Sit to/from Stand: 4 Bed to/from Chair: 4 Weight Bearing Right Lower Extremity: Right Full Weight Bearing Left Lower Extremity: Left Full Weight Bearing Treatments Bed->chair transfer with FWW with CGA x 1. Up in chair with all needs met, nurse present and addressing request for pain meds. Assessment Current Status: Good Progress Pt tolerated well. PT Retirement Goals Credit Risk Associate Goals PT Credit Risk Associate Goals Time Frame: Jul 30, 2018 Transfers (B,C,W/C) (FIM): 6 Gait (FIM): 6 PT Plan Problem List Problem List: Activity Tolerance, Functional Strength, Safety, Balance, Gait, Transfer, Bed Mobility Treatment/Plan Treatment Plan: Continue Plan of Care Treatment Plan: Bed Mobility, Education, Functional Activity Carlos A, Functional Strength, Gait, Safety, Therapeutic Exercise, Transfers Treatment Duration: Jul 31, 2018 Frequency: 6 times per week Estimated Hrs Per Day: .5 hour per day Patient and/or Family Agrees t: Yes Time/GCodes Time In: 1055 Time Out: 1110 Total Billed Treatment Time: 15 Total Billed Treatment 1, FA x 15' G Codes Necessary: No JANET SÁNCHEZ DPLibertad Jul 24, 2018 11:16
[2018-07-24 12:00] VITALS: BP 132/64
--- NOTE | 2018-07-24 12:42 | Progress Note ---
Subjective Time Seen by Provider: 11:43 Subjective/Events-last exam Pt seen and examined; states minimal abdominal pain, denies flatus or BM. NGT in place, pt does not have any nausea or vomiting. Pt states she is not really walking very much because of "all the tubes". Review of Systems General: No Chills, No Night Sweats Pulmonary: No Dyspnea, No Cough Cardiovascular: No: Chest Pain Gastrointestinal: Abdominal Pain Objective Exam Vital Signs Date Time Temp Pulse Resp B/P (MAP) Pulse Ox O2 Delivery O2 Flow Rate FiO2 07/24/18 09:00 Room Air 07/24/18 08:00 99.7 113 16 142/68 (92) 94 Room Air 07/24/18 06:00 20 07/24/18 04:00 100.0 97 20 137/63 (87) 94 07/24/18 00:00 99.0 97 16 131/60 (83) 92 Room Air 07/23/18 21:00 Room Air 07/23/18 20:19 99.6 104 16 138/63 (88) 96 Room Air 07/23/18 18:34 16 07/23/18 16:40 99.9 108 20 142/63 (89) 94 Room Air 07/23/18 16:35 Room Air 07/23/18 15:00 111 14 128/52 (77) 96 Room Air 07/23/18 14:00 112 13 144/69 (94) 96 Room Air 07/23/18 13:00 86 12 124/72 (89) 95 Room Air 07/23/18 13:00 90 I & O 07/24/18 07:00 Intake Total 2350 ml Output Total 1923 ml Balance 427 ml Capillary Refill : General Appearance: No Apparent Distress, WD/WN HEENT: PERRL/EOMI, Other (NGT in place, with bilious drainage) Neck: Non Tender, Supple Respiratory: Chest Non Tender, Lungs Clear Cardiovascular: Regular Rate, Rhythm, No Edema, No Gallop Gastrointestinal: soft, abnormal bowel sounds (decreased), tenderness (minimal diffusely), other (incision is c/d/i) Extremity: Non Tender, No Calf Tenderness Neurologic/Psychiatric: Alert, Oriented x3 Skin: Normal Color, Warm/Dry Results Lab Laboratory Tests 07/24/18 06:40: White Blood Count 8.3, Red Blood Count 3.03L, Hemoglobin 9.0L, Hematocrit 27L, Mean Corpuscular Volume 88, Mean Corpuscular Hemoglobin 30, Mean Corpuscular Hemoglobin Concent 34, Red Cell Distribution Width 14.2, Platelet Count 173, Mean Platelet Volume 10.5H, Neutrophils (%) (Auto) 86H, Lymphocytes (%) (Auto) 10L, Monocytes (%) (Auto) 5, Eosinophils (%) (Auto) 0, Basophils (%) (Auto) 0, Neutrophils # (Auto) 7.1, Lymphocytes # (Auto) 0.8L, Monocytes # (Auto) 0.4, Eosinophils # (Auto) 0.0, Basophils # (Auto) 0.0, Sodium Level 136, Potassium Level 3.8, Chloride Level 106, Carbon Dioxide Level 22, Anion Gap 8, Blood Urea Nitrogen 19H, Creatinine 0.71, Estimat Glomerular Filtration Rate > 60, BUN/ Creatinine Ratio 27, Glucose Level 48*L, Calcium Level 8.1L, Magnesium Level 2.2 07/24/18 08:22: Glucometer 104 07/24/18 11:04: Glucometer 82 Assessment/Plan Assessment/Plan Assessment/Plan S/P Subtotal Colectomy with ileo-rectal anastomosis. Plan to D/C green, clamp NGT and then hook back up in 4 hours to see if GI is starting to work. Pt encouraged to increase ambulation and use IS. Clear liquids as tolerated, will advance slowly. (F43.21) Adjustment disorder with depressed mood- stable- contine home medications. (I10) Essential (primary) hypertension- monitor blood pressure- continue home medications. (E03.9) Hypothyroidism- continue levothyroxine- will check tsh as an outpatient in months. TRIP SANTIAGO DO Jul 24, 2018 12:42
[2018-07-24] MEDS: ENOXAPARIN 40 MG/0.4 ML (LOVENOX) SYR SC SCH (12:43)
--- NOTE | 2018-07-24 12:55 | Progress Note-Hospitalist ---
Subjective HPI/CC On Admission Date Seen by Provider: Jul 24, 2018 Time Seen by Provider: 11:00 Subjective/Events-last exam Patient doing very well Patient is known to me from prior critical illness with bowel perforation Pain is improved Pt left IRF and returned home and was walking well and recovered well Colostomy takedown was uncomplicated Sugar was actually low today so changed IVF to D5NS at 125cc/hr Pt reports feeling ok otherwise + flatus x 1 episode Review of Systems General: Fatigue Gastrointestinal: Abdominal Pain Objective Exam Vital Signs Vital Signs Date Time Temp Pulse Resp B/P (MAP) Pulse Ox O2 Delivery O2 Flow Rate FiO2 07/24/18 09:00 Room Air 07/24/18 08:00 99.7 113 16 142/68 (92) 94 07/21/18 21:00 07/21/18 16:00 50 Capillary Refill : General Appearance: No Apparent Distress, WD/WN, Chronically ill Respiratory: Lungs Clear, Normal Breath Sounds Cardiovascular: Regular Rate, Rhythm, No Edema Neurologic/Psychiatric: Alert, Oriented x3, No Motor/Sensory Deficits, Normal Mood/Affect Results/Procedures Lab Laboratory Tests 07/24/18 06:40 Patient resulted labs reviewed. Assessment/Plan Assessment and Plan Assess & Plan/Chief Complaint s/p colostomy takedown uncomplicated Post op ileus Previous bowel perforation requiring critical care management then extensive IRF which resulted in phenomenal recovery Hypoglycemia due to NPO status Plan: Changed IVF Monitor pain Ambulate NGT Monitor liver and sugar Diagnosis/Problems Diagnosis/Problems (1) Hypoglycemia Status: Acute (2) REVERSAL OF COLOSTOMY Status: Acute (3) Anemia Status: Chronic Qualifiers: Anemia type: unspecified type Qualified Codes: D64.9 - Anemia, unspecified (4) Protein malnutrition Status: Chronic (5) Elevated liver enzymes Status: Acute DAVY ROME DO Jul 24, 2018 12:55
[2018-07-24 16:25] VITALS: BP 136/61
[2018-07-24] MEDS: ACETAMINOPHEN 325 MG TABLET PO PRN (18:54)
[2018-07-24 20:00] VITALS: BP 152/66
[2018-07-24] MEDS: SIMvastatin 20 MG (ZOCOR) TAB PO SCH (20:30)
[2018-07-25] VITALS (7 sets, daily range): BP systolic 125–150; BP diastolic 60–75
[2018-07-25] MEDS: ONDANSETRON 4 MG/2 ML (SDV) Z0FRAN IVP PRN (00:01)
[2018-07-25] MEDS: METOCLOPRAMIDE INJ 10 MG/2 ML (REGLAN) IVP SCH ×5 (00:32→23:46)
[2018-07-25] MEDS: D5 NS 1000 ML IV SOLUTION 1,000 ML IV SCH ×2 (04:51→14:27)
[2018-07-25] MEDS: LEVOTHYROXINE 100 MCG (LEVOTHROID) TAB PO SCH (06:48)
[2018-07-25] MEDS: ACETAMINOPHEN 325 MG TABLET PO PRN ×2 (06:48→16:08)
[2018-07-25] MEDS: PANTOPRAZOLE 40 MG (PROTONIX) VIAL IV SCH ×2 (08:01→21:33)
[2018-07-25] MEDS: amLODIPine 10 MG (NORVASC) TAB PO SCH (08:02)
[2018-07-25] MEDS: ENOXAPARIN 40 MG/0.4 ML (LOVENOX) SYR SC SCH (11:16)
--- NOTE | 2018-07-25 12:51 | Progress Note-Hospitalist ---
Subjective HPI/CC On Admission Date Seen by Provider: Jul 25, 2018 Time Seen by Provider: 11:45 Subjective/Events-last exam Patient had a lot of pain last night but now resolved Passing gas and loose stools NG tube is still in place Wants to restart hormones Using IS Review of Systems General: Fatigue Gastrointestinal: Abdominal Pain Objective Exam Vital Signs Vital Signs Date Time Temp Pulse Resp B/P (MAP) Pulse Ox O2 Delivery O2 Flow Rate FiO2 07/25/18 08:30 Room Air 07/25/18 08:00 100.6 98 16 131/63 (85) 90 07/21/18 21:00 07/21/18 16:00 50 Capillary Refill : General Appearance: No Apparent Distress, WD/WN Respiratory: Lungs Clear, Normal Breath Sounds Cardiovascular: Regular Rate, Rhythm, No Edema Gastrointestinal: Distended Neurologic/Psychiatric: Alert, Oriented x3, No Motor/Sensory Deficits, Normal Mood/Affect Results/Procedures Lab Patient resulted labs reviewed. Assessment/Plan Assessment and Plan Assess & Plan/Chief Complaint s/p colostomy takedown uncomplicated Post op ileus Previous bowel perforation requiring critical care management then extensive IRF which resulted in phenomenal recovery Hypoglycemia due to NPO status Plan: Changed IVF Monitor pain Ambulate NGT Monitor liver and sugar Diagnosis/Problems Diagnosis/Problems (1) Hypoglycemia Status: Resolved (2) REVERSAL OF COLOSTOMY Status: Acute (3) Anemia Status: Chronic Qualifiers: Anemia type: unspecified type Qualified Codes: D64.9 - Anemia, unspecified (4) Protein malnutrition Status: Chronic (5) Elevated liver enzymes Status: Acute DAVY ROME DO Jul 25, 2018 12:51
--- NOTE | 2018-07-25 13:42 | Progress Note ---
Subjective Time Seen by Provider: 12:02 Subjective/Events-last exam Pt seen and examined, looks better than yesterday. Nurse states they had to hook NGT up to suction last night secondary to nausea and got out 200ml. It is clamped again and pt denies N/V. Her main complaint is concern for starting her "hormone meds"; states she is getting emotional with hot flashes and needs to start them back up. Pt states pain is controlled and would like to try some food. Review of Systems General: No Chills, No Night Sweats Pulmonary: No Dyspnea, No Cough Gastrointestinal: Nausea Objective Exam Vital Signs Date Time Temp Pulse Resp B/P (MAP) Pulse Ox O2 Delivery O2 Flow Rate FiO2 07/25/18 08:30 Room Air 07/25/18 08:00 100.6 98 16 131/63 (85) 90 Room Air 07/25/18 06:48 100.8 07/25/18 06:00 20 07/25/18 05:02 100.8 74 20 150/68 (95) 94 Room Air 07/25/18 02:00 100.0 07/25/18 00:00 100.4 105 20 140/67 (91) 94 07/24/18 21:00 Room Air 07/24/18 20:00 100.5 98 20 152/66 (94) 95 Room Air 07/24/18 19:30 101.4 07/24/18 18:54 101.8 07/24/18 17:50 20 07/24/18 16:25 100.4 100 20 136/61 (86) 94 Room Air I & O 07/25/18 07:00 Intake Total 2750 ml Output Total 1372 ml Balance 1378 ml Capillary Refill : General Appearance: No Apparent Distress, WD/WN HEENT: PERRL/EOMI, Other (NGT in place, with bilious drainage) Neck: Non Tender, Supple Respiratory: Lungs Clear, Normal Breath Sounds Cardiovascular: Regular Rate, Rhythm, No Edema Gastrointestinal: soft, abnormal bowel sounds (decreased), tenderness (minimal diffusely), other (Incision is open, with murky liquid, fascia appears intact. No foul smell) Extremity: Non Tender, No Calf Tenderness Neurologic/Psychiatric: Alert, Oriented x3, No Motor/Sensory Deficits, Normal Mood/Affect Skin: Normal Color, Warm/Dry Assessment/Plan Assessment/Plan Assessment/Plan S/P Subtotal Colectomy with ileo-rectal anastomosis. Hormone imbalance - wrote to restart her Home Estra-test Plan to D/C green NGT if less than 200ml after being hooked back up to suction. Pt encouraged to increase ambulation and use IS. Clear liquids as tolerated (pt was only on sips) will advance slowly. Dressing changes BID, wet to dry. (F43.21) Adjustment disorder with depressed mood- stable- contine home medications. (I10) Essential (primary) hypertension- monitor blood pressure- continue home medications. (E03.9) Hypothyroidism- continue levothyroxine- will check tsh as an outpatient in months. TRIP SANTIAGO DO Jul 25, 2018 13:42
[2018-07-25] MEDS: SIMvastatin 20 MG (ZOCOR) TAB PO SCH (21:33)
[2018-07-26] VITALS (7 sets, daily range): BP systolic 136–164; BP diastolic 63–70
[2018-07-26] MEDS: D5 NS 1000 ML IV SOLUTION 1,000 ML IV SCH ×3 (00:37→22:45)
[2018-07-26] MEDS: METOCLOPRAMIDE INJ 10 MG/2 ML (REGLAN) IVP SCH ×3 (05:47→18:41)
[2018-07-26] MEDS: LEVOTHYROXINE 100 MCG (LEVOTHROID) TAB PO SCH (05:47)
[2018-07-26] MEDS: amLODIPine 10 MG (NORVASC) TAB PO SCH (08:26)
[2018-07-26] MEDS: PANTOPRAZOLE 40 MG (PROTONIX) VIAL IV SCH (08:26)
[2018-07-26] MEDS: ESTROGEN ESTER PO SCH ×2 (11:39→20:14)
[2018-07-26] MEDS: TESTOSTERONE PO SCH ×2 (11:39→20:14)
[2018-07-26] MEDS ORDERED: PATIENT MAY USE OWN MED,SINGLE MED PO SCH (11:45)
[2018-07-26 11:58] LABS: BASOPHILS % (AUTO) 0 % (0-10); EOSINOPHILS % (AUTO) 0 % (0-10); HEMATOCRIT 24 % (35-52); HEMOGLOBIN 8.2 G/DL (11.5-16.0); LYMPHOCYTES # (AUTO) 0.8 X 10^3 (1.0-4.0); LYMPHOCYTES % (AUTO) 9 % (12-44); MEAN CORPUSCULAR HEMOGLOBIN 29 PG (25-34); MEAN CORPUSCULAR HGB CONC 34 G/DL (32-36); MEAN CORPUSCULAR VOLUME 87 FL (80-99); MEAN PLATELET VOLUME 10.4 FL (7.4-10.4); MONOCYTES # (AUTO) 0.9 X 10^3 (0.0-1.0); MONOCYTES % (AUTO) 11 % (0-12); NEUTROPHILS # (AUTO) 6.9 X 10^3 (1.8-7.8); NEUTROPHILS % (AUTO) 80 % (42-75); PLATELET COUNT 157 10^3/uL (130-400); RED BLOOD COUNT 2.78 10^6/uL (4.35-5.85); RED CELL DISTRIBUTION WIDTH 14.3 % (10.0-14.5); WHITE BLOOD COUNT 8.5 10^3/uL (4.3-11.0)
[2018-07-26 12:14] LABS: BUN/CREATININE RATIO 11; CALCIUM 7.9 MG/DL (8.5-10.1); CARBON DIOXIDE 23 MMOL/L (21-32); CHLORIDE 114 MMOL/L (98-107); CREATININE SERUM 0.64 MG/DL (0.60-1.30); GFR ESTIMATED > 60; GLUCOSE 130 MG/DL (70-105); POTASSIUM 2.8 MMOL/L (3.6-5.0); SODIUM 142 MMOL/L (135-145)
--- NOTE | 2018-07-26 13:05 | Progress Note-Standard ---
Standard Progress Note Progress Notes/Assess & Plan Date Seen by Provider: Jul 26, 2018 Time Seen by Provider: 11:50 Progress/Assessment & Plan Urine output improved with fluid bolus administration. Normotensive. Off vasopressors. Awake and comfortable. Encouraged using incentive spirometry. Electrolytes within normal limits. Due to the requirement to continue monitoring urine output, Reynolds catheter will be retained till tomorrow. Pain control better. Wound dry.Minimal NG output. Vitals stable.Could be transferred to the floor Passing flatus and has had bowel movements. Turbid exudate from the midline wound. Fascia intact. Would benefit from wound VAC placement. Left advance diet and use oral pain medications. Final Diagnosis Resolved sigmoid perforation. MACY TALAVERA MD Jul 26, 2018 1:05 pm
[2018-07-26] MEDS: ENOXAPARIN 40 MG/0.4 ML (LOVENOX) SYR SC SCH (13:09)
[2018-07-26] MEDS ORDERED: HYDROcodone/APAP 7.5MG-325 MG/15 ML (LORTAB) UDC PO PRN (13:15)
[2018-07-26] MEDS: POTASSIUM CL 10MEQ/50ML IVPB 50 ML IV SCH ×6 (13:19→18:41)
--- NOTE | 2018-07-26 14:08 | Physical Therapy Progress Note ---
Therapy Progress Note No treatment on this date due to wound care to place wound vac on patient's abdomen this p.m. PT to resume in a.m. 1 visit JOSE CARUSO PT Jul 26, 2018 14:08
[2018-07-26] MEDS: fentaNYL INJECTION 100 MCG/2 ML AMP IV PRN (14:46)
[2018-07-26] MEDS ORDERED: KCL 20 MEQ TAB (K-DUR) PO SCH (16:00)
[2018-07-26] MEDS: HYDROcodone/APAP 7.5 MG/325 MG (LORTAB, LORCET PLUS) TABLET PO PRN ×2 (16:24→21:35)
[2018-07-26] MEDS: KCL 20 MEQ TAB (K-DUR) PO SCH (16:24)
[2018-07-26] MEDS: SIMvastatin 20 MG (ZOCOR) TAB PO SCH (20:13)
[2018-07-27] MEDS: METOCLOPRAMIDE INJ 10 MG/2 ML (REGLAN) IVP SCH ×4 (00:17→18:22)
[2018-07-27] MEDS: D5 NS 1000 ML IV SOLUTION 1,000 ML IV SCH (00:18)
[2018-07-27] MEDS: ACETAMINOPHEN 325 MG TABLET PO PRN ×2 (00:24→22:11)
[2018-07-27] MEDS: HYDROcodone/APAP 7.5 MG/325 MG (LORTAB, LORCET PLUS) TABLET PO PRN ×4 (02:48→21:21)
[2018-07-27 04:00] VITALS: BP 140/65
[2018-07-27] MEDS: LEVOTHYROXINE 100 MCG (LEVOTHROID) TAB PO SCH (05:48)
[2018-07-27] MEDS: KCL 20 MEQ TAB (K-DUR) PO SCH ×2 (05:48→16:19)
[2018-07-27 06:15] LABS: BUN/CREATININE RATIO 9; CALCIUM 7.8 MG/DL (8.5-10.1); CARBON DIOXIDE 21 MMOL/L (21-32); CHLORIDE 115 MMOL/L (98-107); CREATININE SERUM 0.65 MG/DL (0.60-1.30); GFR ESTIMATED > 60; GLUCOSE 116 MG/DL (70-105); POTASSIUM 3.2 MMOL/L (3.6-5.0); SODIUM 144 MMOL/L (135-145)
[2018-07-27 08:00] VITALS: BP 140/67
[2018-07-27] MEDS ORDERED: OLMESARTAN MEDOXOMIL 20 MG PO SCH (09:00)
[2018-07-27] MEDS: amLODIPine 10 MG (NORVASC) TAB PO SCH (09:25)
[2018-07-27] MEDS: OLMESARTAN 20 MG (BENICAR) TABLET PO SCH (09:25)
[2018-07-27] MEDS ORDERED: KCL 20 MEQ TAB (K-DUR) PO NR (10:30)
[2018-07-27] MEDS ORDERED: KCL 10 MEQ TAB (MICRO K) PO NR (10:30)
--- NOTE | 2018-07-27 10:32 | Progress Note-Standard ---
Standard Progress Note Progress Notes/Assess & Plan Date Seen by Provider: Jul 27, 2018 Time Seen by Provider: 10:30 Progress/Assessment & Plan Urine output improved with fluid bolus administration. Normotensive. Off vasopressors. Awake and comfortable. Encouraged using incentive spirometry. Electrolytes within normal limits. Due to the requirement to continue monitoring urine output, Reynolds catheter will be retained till tomorrow. Pain control better. Wound dry.Minimal NG output. Vitals stable.Could be transferred to the floor Passing flatus and has had bowel movements. Turbid exudate from the midline wound. Fascia intact. Would benefit from wound VAC placement. Left advance diet and use oral pain medications. Hypokalemia, being replaced. Wound VAC in satisfactory position, minimal output. Low grade fever, but, patient feels to be improving. Will continue to monitor Final Diagnosis Resolved sigmoid perforation. Colonic inertia MACY TALAVERA MD Jul 27, 2018 10:32 am
--- NOTE | 2018-07-27 10:44 | Physical Therapy Daily Note ---
PT Daily Note-Current Subjective Patient is very motivated to participate with PT. Pain Numeric Pain Scale: 8 Location: Lower Location Body Site: Abdomen Pain Description: Acute Mental Status Patient Orientation: Normal For Age Attachments: IV wound vac Transfers Functional [place] Measure 0=Not Assessed/NA 4=Minimal Assistance 1=Total Assistance 5=Supervision or Setup 2=Maximal Assistance 6=Modified [place] 3=Moderate Assistance 7=Complete IndependenceIRFPAI Quality Coding Scale 6 Independent with activity with or without an assistive device 5 Patient requires set up or clean up by helper. Patient completes activity by themselves 4 Supervision or touching assist (CGA). [place] provide cues , steadying assist 3 The helper provides less than half the effort to complete the activity 2 The helper provides more than half the effort to complete the activity 1 Dependent. The helper does all the effort to complete an activity 7 Patient refused to complete or attempt activity 9 The patient did not perform the activity before the current illness or injury 88 Not attempted due to Medical conditions or safety concerns Transfers (B, C, W/C) (FIM): 4 Scootin Rollin Supine to/from Sit: 4 Sit to/from Stand: 5 Weight Bearing Right Lower Extremity: Right Weight Bearing/Tolerated Left Lower Extremity: Left Weight Bearing/Tolerated Gait Training Gait (FIM): 5 Distance (FIM): 3=150 ft Distance: 200' Gait Level of Assist: 5 Gait Assistive Device: FWW safe and functional with FWW use Assessment Patient tolerated treatment well and returned to bed with needs met. Patient c/ o abdominal pain with nursing aware to issue meds. PT Fpc Goals Manager Pricing Goals PT Fpc Goals Time Frame: Jul 30, 2018 Transfers (B,C,W/C) (FIM): 6 Gait (FIM): 6 PT Plan Treatment/Plan Treatment Plan: Continue Plan of Care Treatment Plan: Bed Mobility, Education, Functional Activity Carlos A, Functional Strength, Gait, Safety, Therapeutic Exercise, Transfers Treatment Duration: Jul 30, 2018 Frequency: 6 times per week Estimated Hrs Per Day: .5 hour per day Patient and/or Family Agrees t: Yes Time/GCodes Time In: 902 Time Out: 920 Total Billed Treatment Time: 18 Total Billed Treatment 1 visit FA 18 min JOSE CARUSO PT Jul 27, 2018 10:44
[2018-07-27 12:00] VITALS: BP 150/78
[2018-07-27] MEDS: ENOXAPARIN 40 MG/0.4 ML (LOVENOX) SYR SC SCH (12:44)
[2018-07-27 15:21] VITALS: BP 142/66
[2018-07-27] MEDS: fentaNYL INJECTION 100 MCG/2 ML AMP IV PRN ×2 (16:19→23:05)
[2018-07-27] MEDS: SIMvastatin 20 MG (ZOCOR) TAB PO SCH (20:08)
[2018-07-27] MEDS: ESTROGEN ESTER PO SCH (20:09)
[2018-07-27] MEDS: TESTOSTERONE PO SCH (20:09)
[2018-07-27 20:37] VITALS: BP 152/71
[2018-07-28 00:28] VITALS: BP 137/64
[2018-07-28] MEDS: METOCLOPRAMIDE INJ 10 MG/2 ML (REGLAN) IVP SCH ×5 (00:33→23:18)
[2018-07-28] MEDS: HYDROcodone/APAP 7.5 MG/325 MG (LORTAB, LORCET PLUS) TABLET PO PRN (02:00)
[2018-07-28 04:00] VITALS: BP 130/63
[2018-07-28] MEDS: LEVOTHYROXINE 100 MCG (LEVOTHROID) TAB PO SCH (06:06)
[2018-07-28 06:38] LABS: BUN/CREATININE RATIO 16; CALCIUM 8.4 MG/DL (8.5-10.1); CARBON DIOXIDE 20 MMOL/L (21-32); CHLORIDE 115 MMOL/L (98-107); CREATININE SERUM 0.64 MG/DL (0.60-1.30); GFR ESTIMATED > 60; GLUCOSE 93 MG/DL (70-105); POTASSIUM 3.8 MMOL/L (3.6-5.0); SODIUM 143 MMOL/L (135-145)
[2018-07-28] MEDS ORDERED: oxyCODONE/APAP 5/325MG (PERCOCET 5) TABLET PO PRN (07:45)
[2018-07-28 08:00] VITALS: BP 132/61
--- NOTE | 2018-07-28 09:13 | Progress Note (SOAP) ---
Subjective Subjective Date Seen by Provider: Jul 28, 2018 Time Seen by Provider: 08:30 No overnight events- doing well- no fevers overnight- did have a couple yesterday. Wound vac on. Pt reports she walked down the [place] a couple times yesterday. Looking forward to going home as the hospital bed is not very comfortable. Review of Systems General: No Chills, No Night Sweats HEENT: No Head Aches Pulmonary: No Dyspnea, No Cough Cardiovascular: No: Chest Pain Gastrointestinal: Abdominal Pain; No: Nausea Genitourinary: No Dysuria, No Frequency Musculoskeletal: No: neck pain, shoulder pain Neurological: Weakness; No: Confusion Objective Exam Vital Signs Vital Signs Date Time Temp Pulse Resp B/P (MAP) Pulse Ox O2 Delivery O2 Flow Rate FiO2 07/28/18 08:00 98.7 95 16 132/61 (84) 97 Room Air 07/28/18 04:00 99.5 94 20 130/63 (85) 95 Room Air 07/28/18 00:28 99.9 96 18 137/64 (88) 94 Room Air 07/27/18 23:06 101.2 07/27/18 22:11 101.0 07/27/18 20:37 100.8 107 16 152/71 (98) 98 Room Air 07/27/18 15:21 100.3 80 16 142/66 (91) 96 Room Air 07/27/18 14:47 99.7 07/27/18 13:08 100.3 07/27/18 12:00 100.6 104 16 150/78 (102) 95 Room Air I & O 07/28/18 07:00 Intake Total 2900 ml Output Total 2900 ml Balance 0 ml General Appearance: No Apparent Distress, WD/WN HEENT: PERRL/EOMI Neck: Non Tender, Supple Respiratory: Chest Non Tender, Lungs Clear Cardiovascular: Regular Rate, Rhythm, No Edema, No Gallop Gastrointestinal: Non Tender, Soft (bandaged) Rectal: Deferred Back: No CVA Tenderness Extremity: Non Tender, No Calf Tenderness Neurologic/Psychiatric: Alert, Oriented x3, No Motor/Sensory Deficits, Normal Mood/Affect Skin: Normal Color, Warm/Dry Results Lab Laboratory Tests 07/28/18 06:00: Sodium Level 143, Potassium Level 3.8, Chloride Level 115H, Carbon Dioxide Level 20L, Anion Gap 8, Blood Urea Nitrogen 10, Creatinine 0.64, Estimat Glomerular Filtration Rate > 60, BUN/Creatinine Ratio 16, Glucose Level 93, Calcium Level 8.4L Assessment/Plan Assessment/Plan Admission Dx ostomy reversal Assessment and Plan 62 yo F s/p iliorectal anastomosis- Dr. Ng, Surgery. doing well (F43.21) Adjustment disorder with depressed mood- stable- mood seems to be more hopeful. (I10) Essential (primary) hypertension- monitor blood pressure- continue home medications. (E03.9) Hypothyroidism- continue levothyroxine- will check tsh as an outpatient in months. hypokalemia- replacing Dispo: doing well s/p surgery- will follow along. may transfer to floor today. Problems: (1) REVERSAL OF COLOSTOMY (2) Anemia Qualifiers: Qualified Codes: D64.9 - Anemia, unspecified (3) Protein malnutrition Admission Dx ostomy reversal Clinical Quality Measures Admission Status Admission Dx ostomy reversal BATOOL MEJÍA MD Jul 28, 2018 09:13
[2018-07-28] MEDS: OLMESARTAN 20 MG (BENICAR) TABLET PO SCH (09:27)
[2018-07-28] MEDS: KCL 20 MEQ TAB (K-DUR) PO SCH ×2 (09:28→17:58)
[2018-07-28] MEDS: amLODIPine 10 MG (NORVASC) TAB PO SCH (09:28)
[2018-07-28] MEDS: oxyCODONE/APAP 5/325MG (PERCOCET 5) TABLET PO PRN (09:28)
[2018-07-28] MEDS: fentaNYL INJECTION 100 MCG/2 ML AMP IV PRN ×7 (11:06→23:18)
[2018-07-28 12:00] VITALS: BP 128/60
--- NOTE | 2018-07-28 12:18 | Progress Note-Standard ---
Standard Progress Note Progress Notes/Assess & Plan Date Seen by Provider: Jul 28, 2018 Time Seen by Provider: 11:00 Progress/Assessment & Plan Urine output improved with fluid bolus administration. Normotensive. Off vasopressors. Awake and comfortable. Encouraged using incentive spirometry. Electrolytes within normal limits. Due to the requirement to continue monitoring urine output, Reynolds catheter will be retained till tomorrow. Pain control better. Wound dry.Minimal NG output. Vitals stable.Could be transferred to the floor Passing flatus and has had bowel movements. Turbid exudate from the midline wound. Fascia intact. Would benefit from wound VAC placement. Left advance diet and use oral pain medications. Hypokalemia, being replaced. Wound VAC in satisfactory position, minimal output. Low grade fever, but, patient feels to be improving. Will continue to monitor Tearful due to abdominal pain. Wound VAC would be replaced and fascia reexamined. Low-grade fever last night. Developing intra-abdominal abscesses need to be considered and CT scan would be obtained, if fever continues beyond today. Final Diagnosis Resolved sigmoid perforation. MACY TALAVERA MD Jul 28, 2018 12:18 pm
[2018-07-28] MEDS: ENOXAPARIN 40 MG/0.4 ML (LOVENOX) SYR SC SCH (13:10)
[2018-07-28 15:20] VITALS: BP 135/62
--- NOTE | 2018-07-28 15:57 | Physical Therapy Progress Note ---
Therapy Progress Note Pt declined PT tx due citing fatigue and pain from Wound Vac. placement and other procedures. Pt is advised PT benefits but still declines. PT will see pt again tomorrow. 1 visit, no tx RAMANDEEP CARR PTA Jul 28, 2018 15:57
[2018-07-28] MEDS: ACETAMINOPHEN 325 MG TABLET PO PRN (19:18)
[2018-07-28 19:20] VITALS: BP 136/64
[2018-07-28] MEDS: ESTROGEN ESTER PO SCH (20:11)
[2018-07-28] MEDS: TESTOSTERONE PO SCH (20:11)
[2018-07-28] MEDS: SIMvastatin 20 MG (ZOCOR) TAB PO SCH (20:11)
[2018-07-29 00:20] VITALS: BP 130/61
[2018-07-29] MEDS: ONDANSETRON 4 MG/2 ML (SDV) Z0FRAN IVP PRN ×3 (02:08→09:17)
[2018-07-29] MEDS: fentaNYL INJECTION 100 MCG/2 ML AMP IV PRN ×6 (02:58→14:40)
[2018-07-29] MEDS: ACETAMINOPHEN 325 MG TABLET PO PRN (04:27)
[2018-07-29 04:30] VITALS: BP 132/61
[2018-07-29] MEDS: LEVOTHYROXINE 100 MCG (LEVOTHROID) TAB PO SCH (06:30)
[2018-07-29] MEDS: METOCLOPRAMIDE INJ 10 MG/2 ML (REGLAN) IVP SCH ×3 (06:30→18:22)
[2018-07-29] MEDS: D5 LR IV SOLUTION 1,000 ML IV SCH ×3 (06:31→22:13)
[2018-07-29] MEDS: KCL 20 MEQ TAB (K-DUR) PO SCH ×2 (06:31→17:56)
[2018-07-29] MEDS ORDERED: NS 250 ML (IVPB) BAG IV ONE (08:30)
[2018-07-29] MEDS ORDERED: RECEIVED CONTRAST (Hold Metformin) IV SCH (08:30)
[2018-07-29] MEDS ORDERED: IOHEXOL 350 MG/ML 100 ML (OMNIPAQUE 350) VIAL IV ONE (08:30)
[2018-07-29] MEDS ORDERED: DIATRIZOATE MEGLUM/SODIUM 37% 120 ML (GASTROGRAFIN) PO ONE (08:30)
[2018-07-29 08:42] VITALS: BP 127/60
[2018-07-29] MEDS: amLODIPine 10 MG (NORVASC) TAB PO SCH (09:17)
[2018-07-29] MEDS: OLMESARTAN 20 MG (BENICAR) TABLET PO SCH (09:17)
--- NOTE | 2018-07-29 11:38 | Diagnostic Imaging Report ---
PROCEDURE: CT abdomen and pelvis with contrast. TECHNIQUE: Multiple contiguous axial images were obtained through the abdomen and pelvis after administration of intravenous contrast. INDICATION: Postop fever with possible infection. Comparison made with prior examination of 05/12/2017. FINDINGS: The heart size is normal. There is some bibasilar subsegmental atelectasis and/or pneumonitis. There are small bilateral pleural effusions. The liver is normal in size without focal lesions. Gallbladder surgically absent. Spleen is normal. The pancreas and adrenal glands are unremarkable. Kidneys are normal in appearance. There are multiple fluid-filled dilated loops of small bowel. There is an abnormal collection of air and fluid in the pelvis with questionable communication of bowel in the right hemipelvis. There appears to be postsurgical changes of an ileorectal anastomosis. There is a fluid collection within the subcutaneous tissues of the left anterior abdominal wall measuring 6.1 x 2 cm. This is likely seroma following colostomy reversal. Bladder is grossly normal in appearance. There are marked degenerative changes in the spine. IMPRESSION: Bibasilar subsegmental atelectasis and/or pneumonitis and bilateral pleural effusions. Abnormal collection of air and fluid in the pelvis suspect for abscess with questionable communication to bowel in the right hemipelvis. Multiple dilated loops of small bowel either ileus or bowel obstruction. A small amount of abdominal ascites. Fluid collection within the subcutaneous tissues of the left anterior abdominal wall likely postop seroma. Marked degenerative changes in the spine. Dictated by: Dictated on workstation # [id number]
--- NOTE | 2018-07-29 11:52 | Physical Therapy Progress Note ---
Therapy Progress Note Patient declined PT due to nausea and vomiting with any movement. Patient educated on importance of OOB activity to improve strength and mobility and to help with healing and bowel activity. Patient continued to decline. PT will attempt later today. 1 ref JOSE CARUSO PT Jul 29, 2018 11:52
[2018-07-29 12:00] VITALS: BP 144/64
[2018-07-29] MEDS ORDERED: PIPERACILLIN/TAZO 4.5 GM/NS 100 ML IV NR ×2 (12:45)
[2018-07-29] MEDS: ENOXAPARIN 40 MG/0.4 ML (LOVENOX) SYR SC SCH (13:47)
--- NOTE | 2018-07-29 13:51 | Progress Note-Standard ---
Standard Progress Note Progress Notes/Assess & Plan Date Seen by Provider: Jul 29, 2018 Time Seen by Provider: 13:00 Progress/Assessment & Plan Urine output improved with fluid bolus administration. Normotensive. Off vasopressors. Awake and comfortable. Encouraged using incentive spirometry. Electrolytes within normal limits. Due to the requirement to continue monitoring urine output, Reynolds catheter will be retained till tomorrow. Pain control better. Wound dry.Minimal NG output. Vitals stable.Could be transferred to the floor Passing flatus and has had bowel movements. Turbid exudate from the midline wound. Fascia intact. Would benefit from wound VAC placement. Left advance diet and use oral pain medications. Hypokalemia, being replaced. Wound VAC in satisfactory position, minimal output. Low grade fever, but, patient feels to be improving. Will continue to monitor Tearful due to abdominal pain. Wound VAC would be replaced and fascia reexamined. Low-grade fever last night. Developing intra-abdominal abscesses need to be considered and CT scan would be obtained, if fever continues beyond today. CT scan shows fluid collections in the pelvis and the left paracolic gutter, not mature enough to be considered abscesses. Dilated small bowel loops possibly an ileus and therefore nasogastric tube was placed. We will use TPN and administration antibiotics. Follow-up CT scan in 4-5 days and if the fluid collections measured to be abscesses, CT-guided drainage would be performed. Patient and the family updated. Ileorectal anastomosis intact. Final Diagnosis Resolved sigmoid perforation. Postoperative ileus. MACY TALAVERA MD Jul 29, 2018 1:51 pm
--- NOTE | 2018-07-29 14:02 | Physical Therapy Progress Note ---
Therapy Progress Note Patient continues to decline PT due to nausea. Will continue to attempt in a.m. ref JOSE CARUSO PT Jul 29, 2018 14:02
[2018-07-29 14:41] LABS: HEMOGLOBIN 7.5 G/DL (11.5-16.0); MEAN PLATELET VOLUME 10.1 FL (7.4-10.4); RED BLOOD COUNT 2.52 10^6/uL (4.35-5.85); RED CELL DISTRIBUTION WIDTH 14.3 % (10.0-14.5); WHITE BLOOD COUNT 18.4 10^3/uL (4.3-11.0)
[2018-07-29 15:01] LABS: ALANINE AMINOTRANSFERASE 6 U/L (0-55); ALBUMIN 2.3 GM/DL (3.2-4.5); ALKALINE PHOSPHATASE 129 U/L (40-136); BILIRUBIN,TOTAL 0.7 MG/DL (0.1-1.0); BUN/CREATININE RATIO 17; CALCIUM 8.2 MG/DL (8.5-10.1); CARBON DIOXIDE 22 MMOL/L (21-32); CHLORIDE 112 MMOL/L (98-107); CREATININE SERUM 0.64 MG/DL (0.60-1.30); GFR ESTIMATED > 60; GLUCOSE 152 MG/DL (70-105); MAGNESIUM 1.6 MG/DL (1.8-2.4); PHOSPHORUS 2.3 MG/DL (2.3-4.7); POTASSIUM 3.4 MMOL/L (3.6-5.0); SODIUM 142 MMOL/L (135-145); TOTAL PROTEIN 4.7 GM/DL (6.4-8.2); TRIGLYCERIDES 88 MG/DL (<150)
[2018-07-29 16:10] VITALS: BP 140/62
--- NOTE | 2018-07-29 16:54 | Diagnostic Imaging Report ---
INDICATION: PICC placement. COMPARISON: 07/23/2018. FINDINGS: Left PICC has tip terminating in the [id number] SVC. Stable right IJ central venous catheter. Stable enteric tube. Stable small left pleural effusion. Left basilar pulmonary opacities are present. No pneumothorax. Stable cardiomegaly. IMPRESSION: 1. Left PICC has tip in good position in the [id number] SVC. 2. Stable small left pleural effusion and left basilar pulmonary opacities. Dictated by: Dictated on workstation # [id number]
[2018-07-29] MEDS: PIPERACILLIN SODIUM/TAZOBACTAM 4.5 GM in NS (IVPB) 100 ML IV SCH (18:22)
[2018-07-29] MEDS ORDERED: LORazepam INJ 2 MG/ML (ATIVAN) VIAL IVP PRN (18:30)
[2018-07-29] MEDS ORDERED: TPN IV SCH (18:45)
[2018-07-29 19:04] LABS: ABG BASE EXCESS -0.9 MMOL/L (-2.5-2.5); ABG OXYGEN SATURATION 99 % (94-100); ABG PCO2 37 MMHG (35-45); ABG PH 7.41 (7.37-7.43); ABG PO2 114 MMHG (79-93); ABG TCO2 24.1 MMOL/L (21.0-31.0); ALLENS TEST POSITIVE; PATIENT TEMP 99.1; VENTILATOR NO
[2018-07-29 19:05] LABS: INSPIRED O2 70%
[2018-07-29 19:14] LABS: BASOPHILS % (AUTO) 0 % (0-10); EOSINOPHILS % (AUTO) 0 % (0-10); HEMATOCRIT 23 % (35-52); LYMPHOCYTES # (AUTO) 1.4 X 10^3 (1.0-4.0); LYMPHOCYTES % (AUTO) 7 % (12-44); MEAN CORPUSCULAR HEMOGLOBIN 29 PG (25-34); MEAN CORPUSCULAR HGB CONC 35 G/DL (32-36); MEAN CORPUSCULAR VOLUME 85 FL (80-99); MEAN PLATELET VOLUME 10.3 FL (7.4-10.4); MONOCYTES # (AUTO) 1.1 X 10^3 (0.0-1.0); MONOCYTES % (AUTO) 6 % (0-12); NEUTROPHILS # (AUTO) 17.5 X 10^3 (1.8-7.8); NEUTROPHILS % (AUTO) 87 % (42-75); PLATELET COUNT 299 10^3/uL (130-400); RED BLOOD COUNT 2.72 10^6/uL (4.35-5.85); RED CELL DISTRIBUTION WIDTH 14.4 % (10.0-14.5); WHITE BLOOD COUNT 20.1 10^3/uL (4.3-11.0)
--- NOTE | 2018-07-29 19:19 | Diagnostic Imaging Report ---
INDICATION: Shortness of breath. EXAMINATION: Portable chest at 7:08 p.m. FINDINGS: Left upper extremity PICC line tip projects over the SVC. NG tube enters the stomach. Heart size and pulmonary vascularity are normal. Lungs are clear. There are no effusions or pneumothoraces. IMPRESSION: No acute abnormalities in the chest. Dictated by: Dictated on workstation # [id number]
[2018-07-29 19:37] LABS: BUN/CREATININE RATIO 15; CALCIUM 7.8 MG/DL (8.5-10.1); CARBON DIOXIDE 20 MMOL/L (21-32); CHLORIDE 113 MMOL/L (98-107); CREATININE SERUM 0.67 MG/DL (0.60-1.30); GFR ESTIMATED > 60; GLUCOSE 154 MG/DL (70-105); POTASSIUM 3.1 MMOL/L (3.6-5.0); SODIUM 147 MMOL/L (135-145)
[2018-07-29 19:43] LABS: BAND NEUTROPHILS 3 %; BASOPHILS % (MANUAL) 0 %; EOSINOPHILS % (MANUAL) 0 %; HYPOCHROMASIA MODERATE; LYMPHOCYTES % (MANUAL) 14 %; MONOCYTES % (MANUAL) 3 %; NEUTROPHILS % (MANUAL) 80 %; TARGET CELLS SLIGHT
[2018-07-29] MEDS: SIMvastatin 20 MG (ZOCOR) TAB PO SCH (19:47)
[2018-07-29] MEDS: TESTOSTERONE PO SCH (19:47)
[2018-07-29] MEDS: ESTROGEN ESTER PO SCH (19:47)
[2018-07-29 20:15] VITALS: BP 141/65
[2018-07-29] MEDS ORDERED: RT-ALBUTEROL/IPRATROPIUM 3 ML (DUONEB) VIAL INH PRN (20:45)
--- NOTE | 2018-07-29 21:20 | Progress Note (SOAP) ---
Subjective Subjective Date Seen by Provider: Jul 29, 2018 Time Seen by Provider: 20:30 Still running a temperature on zosyn- has a picc line in Around 6pm patient's right IJ line was pulled and staff reported she had a panic attack - she was given ativan- Oxygen saturation dropped to low 80s and pt became confused. RT got her oxygen sats up to high 90s with vapotherm. art blood gas was decent. Labs WBC 20K, hgb 8, K low. I came in to see pt and she was on 23LPM 21% oxygen vapotherm- she seemed to be doing well- so we titrated her off the vapotherm- oxygen sats on room air stayed around 92%. Pt reports she feels about the same- work of breathing the same. Review of Systems General: No Chills, No Night Sweats HEENT: No Head Aches Pulmonary: No Dyspnea, No Cough Cardiovascular: No: Chest Pain Gastrointestinal: Abdominal Pain; No: Nausea Genitourinary: No Dysuria, No Frequency Musculoskeletal: No: neck pain, shoulder pain Neurological: Weakness, Confusion Objective Exam Vital Signs Vital Signs - First Documented 07/23/18 07/29/18 07/29/18 08:19 19:31 19:57 Temp 99.2 O2 Flow Rate 40.00 FiO2 60 Capillary Refill : General Appearance: No Apparent Distress, WD/WN HEENT: PERRL/EOMI Neck: Non Tender, Supple Respiratory: Chest Non Tender, Lungs Clear Cardiovascular: Regular Rate, Rhythm, No Edema, No Gallop Gastrointestinal: Non Tender, Soft (bandaged) Rectal: Deferred Back: No CVA Tenderness Extremity: Non Tender, No Calf Tenderness Neurologic/Psychiatric: Alert, No Motor/Sensory Deficits, Other (confusion) Skin: Normal Color, Warm/Dry Results Lab Laboratory Tests 07/29/18 14:30: White Blood Count 18.4H, Red Blood Count 2.52L, Hemoglobin 7.5L, Hematocrit 21L , Mean Corpuscular Volume 85, Mean Corpuscular Hemoglobin 30, Mean Corpuscular Hemoglobin Concent 35, Red Cell Distribution Width 14.3, Platelet Count 274, Mean Platelet Volume 10.1, Sodium Level 142, Potassium Level 3.4L, Chloride Level 112H, Carbon Dioxide Level 22, Anion Gap 8, Blood Urea Nitrogen 11, Creatinine 0.64, Estimat Glomerular Filtration Rate > 60, BUN/Creatinine Ratio 17, Glucose Level 152H, Calcium Level 8.2L, Corrected Calcium 9.6, Phosphorus Level 2.3, Magnesium Level 1.6L, Total Bilirubin 0.7, Aspartate Amino Transf ( AST/SGOT) 8, Alanine Aminotransferase (ALT/SGPT) 6, Alkaline Phosphatase 129, Total Protein 4.7L, Albumin 2.3L, Triglycerides Level 88 07/29/18 17:58: Glucometer 141H 07/29/18 18:56: Blood Gas Puncture Site LEFT RADIAL, Blood Gas Patient Temperature 99.1, Arterial Blood pH 7.41, Arterial Blood Partial Pressure CO2 37, Arterial Blood Partial Pressure O2 114H, Arterial Blood HCO3 23, Arterial Blood Total CO2 24.1 , Arterial Blood Oxygen Saturation 99, Arterial Blood Base Excess -0.9, Brannon Test POSITIVE, Blood Gas Ventilator Setting NO, Blood Gas Inspired Oxygen 70% 07/29/18 19:00: White Blood Count 20.1H, Red Blood Count 2.72L, Hemoglobin 8.0L, Hematocrit 23L , Mean Corpuscular Volume 85, Mean Corpuscular Hemoglobin 29, Mean Corpuscular Hemoglobin Concent 35, Red Cell Distribution Width 14.4, Platelet Count 299, Mean Platelet Volume 10.3, Sodium Level 147H, Potassium Level 3.1L, Chloride Level 113H, Carbon Dioxide Level 20L, Anion Gap 14, Blood Urea Nitrogen 10, Creatinine 0.67, Estimat Glomerular Filtration Rate > 60, BUN/Creatinine Ratio 15, Glucose Level 154H, Calcium Level 7.8L, Neutrophils (%) (Auto) 87H, Lymphocytes (%) (Auto) 7L, Monocytes (%) (Auto) 6, Eosinophils (%) (Auto) 0, Basophils (%) (Auto) 0, Neutrophils # (Auto) 17.5H, Lymphocytes # (Auto) 1.4, Monocytes # (Auto) 1.1H, Eosinophils # (Auto) 0.0, Basophils # (Auto) 0.0, Neutrophils % (Manual) 80, Lymphocytes % (Manual) 14, Monocytes % (Manual) 3, Eosinophils % (Manual) 0, Basophils % (Manual) 0, Band Neutrophils 3, Hypochromasia MODERATE, Target Cells SLIGHT Assessment/Plan Assessment/Plan Admission Dx ostomy reversal Assessment and Plan 62 yo F s/p iliorectal anastomosis- Dr. Ng, Surgery. wound vac on. on zosyn for abdominal coverage. (F43.21) Adjustment disorder with depressed mood- stable- (I10) Essential (primary) hypertension- monitor blood pressure- continue home medications. (E03.9) Hypothyroidism- continue levothyroxine- will check tsh as an outpatient in months. hypokalemia- replacing acute hypoxic respiratory distress- on room air currently. Dispo: Pt respiratory status improved once her panic attack abated- she is still confused since getting the ativan. will hold off on obtaining a CT chest since she is back on room air. monitor closely. Problems: (1) REVERSAL OF COLOSTOMY (2) Anemia Qualifiers: Qualified Codes: D64.9 - Anemia, unspecified (3) Protein malnutrition Admission Dx ostomy reversal Clinical Quality Measures Admission Status Admission Dx ostomy reversal BATOOL MEJÍA MD Jul 29, 2018 21:20
[2018-07-29] MEDS ORDERED: RT-ALBUTEROL/IPRATROPIUM 3 ML (DUONEB) VIAL INH SCH (22:00)
[2018-07-30] VITALS: BP 133/58
[2018-07-30] MEDS: fentaNYL INJECTION 100 MCG/2 ML AMP IV PRN ×5 (00:13→12:50)
[2018-07-30] MEDS: METOCLOPRAMIDE INJ 10 MG/2 ML (REGLAN) IVP SCH ×4 (00:13→17:31)
[2018-07-30] MEDS: KCL 20 MEQ TAB (K-DUR) PO SCH ×2 (02:01→17:30)
[2018-07-30] MEDS: LEVOTHYROXINE 100 MCG (LEVOTHROID) TAB PO SCH (02:01)
[2018-07-30] MEDS: PIPERACILLIN SODIUM/TAZOBACTAM 4.5 GM in NS (IVPB) 100 ML IV SCH ×3 (02:53→19:44)
[2018-07-30 04:23] VITALS: BP 141/65
[2018-07-30 06:03] LABS: ALANINE AMINOTRANSFERASE 6 U/L (0-55); ALBUMIN 2.2 GM/DL (3.2-4.5); ALKALINE PHOSPHATASE 126 U/L (40-136); BILIRUBIN,TOTAL 0.6 MG/DL (0.1-1.0); BUN/CREATININE RATIO 15; CALCIUM 8.1 MG/DL (8.5-10.1); CARBON DIOXIDE 26 MMOL/L (21-32); CHLORIDE 112 MMOL/L (98-107); CREATININE SERUM 0.71 MG/DL (0.60-1.30); GFR ESTIMATED > 60; GLUCOSE 176 MG/DL (70-105); MAGNESIUM 1.8 MG/DL (1.8-2.4); PHOSPHORUS 2.2 MG/DL (2.3-4.7); POTASSIUM 3.1 MMOL/L (3.6-5.0); SODIUM 145 MMOL/L (135-145); TOTAL PROTEIN 4.5 GM/DL (6.4-8.2)
[2018-07-30] MEDS: D5 LR IV SOLUTION 1,000 ML IV SCH ×2 (06:12→14:36)
[2018-07-30] MEDS ORDERED: NS IV NR ×2 (06:25)
[2018-07-30] MEDS ORDERED: POTASSIUM PHOSPHATE MM IV NR ×2 (06:25)
[2018-07-30] MEDS: MAGNESIUM 1 GM/D5W 100 ML IVPB IV SCH ×3 (07:01→09:30)
[2018-07-30 07:53] VITALS: BP 149/66
[2018-07-30] MEDS: amLODIPine 10 MG (NORVASC) TAB PO SCH (09:37)
[2018-07-30] MEDS: OLMESARTAN 20 MG (BENICAR) TABLET PO SCH (09:37)
[2018-07-30] MEDS ORDERED: NS IV 1000 ML 1,000 ML ONE (09:39)
--- NOTE | 2018-07-30 09:46 | Physical Therapy Progress Note ---
Therapy Progress Note Patient declined due to having bedside procedure, fatigue and anxiety. PT encouraged patient to ambulate PRN with family and/or nursing staff. JOSE CARUSO PT Jul 30, 2018 09:46
--- NOTE | 2018-07-30 09:47 | Progress Note-Standard ---
Standard Progress Note Progress Notes/Assess & Plan Date Seen by Provider: Jul 30, 2018 Time Seen by Provider: 08:45 Progress/Assessment & Plan Urine output improved with fluid bolus administration. Normotensive. Off vasopressors. Awake and comfortable. Encouraged using incentive spirometry. Electrolytes within normal limits. Due to the requirement to continue monitoring urine output, Reynolds catheter will be retained till tomorrow. Pain control better. Wound dry.Minimal NG output. Vitals stable.Could be transferred to the floor Passing flatus and has had bowel movements. Turbid exudate from the midline wound. Fascia intact. Would benefit from wound VAC placement. Left advance diet and use oral pain medications. Hypokalemia, being replaced. Wound VAC in satisfactory position, minimal output. Low grade fever, but, patient feels to be improving. Will continue to monitor Tearful due to abdominal pain. Wound VAC would be replaced and fascia reexamined. Low-grade fever last night. Developing intra-abdominal abscesses need to be considered and CT scan would be obtained, if fever continues beyond today. CT scan shows fluid collections in the pelvis and the left paracolic gutter, not mature enough to be considered abscesses. Dilated small bowel loops possibly an ileus and therefore nasogastric tube was placed. We will use TPN and administration antibiotics. Follow-up CT scan in 4-5 days and if the fluid collections measured to be abscesses, CT-guided drainage would be performed. Patient and the family updated. Ileorectal anastomosis intact. Purulent drainage from the colostomy site, opened up at the bedside. Wet-to- dry dressing at this point. With regard to the midline wound, the fascia is intact and there is some slough along the superior aspect. Wound care would be replaced. An antibiotics will be continued. CT scan would be repeated on Thursday: 03 August and at that is a likelihood of percutaneous drainage. Final Diagnosis Resolved sigmoid perforation. Postoperative wound infection. Postoperative ileus. MACY TALAVERA MD Jul 30, 2018 9:47 am
[2018-07-30] MEDS: POTASSIUM CL 10MEQ/50ML IVPB 50 ML IV SCH ×5 (10:24→14:36)
[2018-07-30 12:38] VITALS: BP 147/65
[2018-07-30] MEDS: ENOXAPARIN 40 MG/0.4 ML (LOVENOX) SYR SC SCH (12:50)
[2018-07-30 15:40] VITALS: BP 138/58
[2018-07-30] MEDS: 3-IN-1 TPN IV SCH ×11 (17:30)
[2018-07-30] MEDS: 1/2 NS IV SOLUTION 1,000 ML IV SCH (17:31)
[2018-07-30] MEDS: ESTROGEN ESTER PO SCH (19:47)
[2018-07-30] MEDS: TESTOSTERONE PO SCH (19:47)
[2018-07-30] MEDS: SIMvastatin 20 MG (ZOCOR) TAB PO SCH (19:47)
[2018-07-30] MEDS ORDERED: DIAZEPAM 5 MG (VALIUM) TABLET PO PRN (20:15)
[2018-07-30 20:20] VITALS: BP 159/70
[2018-07-31] VITALS (7 sets, daily range): BP systolic 134–169; BP diastolic 62–75
[2018-07-31] MEDS: METOCLOPRAMIDE INJ 10 MG/2 ML (REGLAN) IVP SCH ×4 (00:37→16:50)
[2018-07-31] MEDS: fentaNYL INJECTION 100 MCG/2 ML AMP IV PRN ×5 (01:56→12:32)
[2018-07-31] MEDS: PIPERACILLIN SODIUM/TAZOBACTAM 4.5 GM in NS (IVPB) 100 ML IV SCH ×3 (03:02→18:18)
[2018-07-31] MEDS: LEVOTHYROXINE 100 MCG (LEVOTHROID) TAB PO SCH (05:36)
[2018-07-31] MEDS: KCL 20 MEQ TAB (K-DUR) PO SCH ×2 (05:37→16:49)
[2018-07-31 06:57] LABS: BASOPHILS % (AUTO) 0 % (0-10); EOSINOPHILS # (AUTO) 0.1 10^3/uL (0.0-0.3); EOSINOPHILS % (AUTO) 1 % (0-10); LYMPHOCYTES % (AUTO) 10 % (12-44); MEAN CORPUSCULAR HEMOGLOBIN 30 PG (25-34); MEAN CORPUSCULAR HGB CONC 35 G/DL (32-36); MEAN CORPUSCULAR VOLUME 85 FL (80-99); MEAN PLATELET VOLUME 10.5 FL (7.4-10.4); MONOCYTES # (AUTO) 0.9 X 10^3 (0.0-1.0); MONOCYTES % (AUTO) 9 % (0-12); NEUTROPHILS # (AUTO) 7.8 X 10^3 (1.8-7.8); NEUTROPHILS % (AUTO) 80 % (42-75); PLATELET COUNT 352 10^3/uL (130-400); RED BLOOD COUNT 2.27 10^6/uL (4.35-5.85); RED CELL DISTRIBUTION WIDTH 14.4 % (10.0-14.5); WHITE BLOOD COUNT 9.7 10^3/uL (4.3-11.0)
[2018-07-31 07:22] LABS: ALANINE AMINOTRANSFERASE 7 U/L (0-55); ALBUMIN 2.4 GM/DL (3.2-4.5); ALKALINE PHOSPHATASE 148 U/L (40-136); BILIRUBIN,TOTAL 0.7 MG/DL (0.1-1.0); BUN/CREATININE RATIO 22; CARBON DIOXIDE 25 MMOL/L (21-32); CHLORIDE 112 MMOL/L (98-107); CREATININE SERUM 0.68 MG/DL (0.60-1.30); GFR ESTIMATED > 60; GLUCOSE 171 MG/DL (70-105); MAGNESIUM 2.4 MG/DL (1.8-2.4); PHOSPHORUS 2.7 MG/DL (2.3-4.7); POTASSIUM 2.9 MMOL/L (3.6-5.0); SODIUM 148 MMOL/L (135-145); TOTAL PROTEIN 4.8 GM/DL (6.4-8.2)
[2018-07-31 07:37] LABS: HEMOGLOBIN 6.7 G/DL (11.5-16.0)
[2018-07-31 07:39] LABS: HEMATOCRIT 19 % (35-52)
[2018-07-31] MEDS: amLODIPine 10 MG (NORVASC) TAB PO SCH (07:57)
[2018-07-31] MEDS: oxyCODONE/APAP 5/325MG (PERCOCET 5) TABLET PO PRN ×3 (07:57→20:57)
[2018-07-31] MEDS: OLMESARTAN 20 MG (BENICAR) TABLET PO SCH (07:57)
[2018-07-31 07:58] LABS: HEMOGLOBIN 7.1 G/DL (11.5-16.0)
--- NOTE | 2018-07-31 10:50 | Progress Note-Hospitalist ---
Subjective HPI/CC On Admission Date Seen by Provider: Jul 31, 2018 Time Seen by Provider: 10:30 Subjective/Events-last exam Patient has had more complications since last week when I saw her. No pain is reported NGT is still in place No nausea Wants ice water. Hemoglobin is low today and may require transfusions Review of Systems General: Fatigue, Malaise Objective Exam Vital Signs Vital Signs Date Time Temp Pulse Resp B/P (MAP) Pulse Ox O2 Delivery O2 Flow Rate FiO2 07/31/18 10:36 97 Room Air 07/31/18 08:00 99.5 84 18 169/74 (105) 07/30/18 04:23 5.00 07/29/18 19:57 60 Capillary Refill : General Appearance: No Apparent Distress, WD/WN, Chronically ill, Thin Respiratory: Lungs Clear, Normal Breath Sounds Cardiovascular: Regular Rate, Rhythm, No Edema Neurologic/Psychiatric: Alert, Oriented x3, No Motor/Sensory Deficits, Normal Mood/Affect Results/Procedures Lab Laboratory Tests 07/31/18 06:35 07/31/18 07:50 Patient resulted labs reviewed. Assessment/Plan Assessment and Plan Assess & Plan/Chief Complaint s/p colostomy takedown uncomplicated but now with additional complications Post op ileus Previous bowel perforation requiring critical care management then extensive IRF which resulted in phenomenal recovery Severe anemia Fever Plan: Changed IVF Monitor pain Ambulate NGT Monitor liver and sugar Transfusion prn Diagnosis/Problems Diagnosis/Problems (1) REVERSAL OF COLOSTOMY Status: Acute (2) Anemia Status: Chronic Qualifiers: Anemia type: unspecified type Qualified Codes: D64.9 - Anemia, unspecified (3) Protein malnutrition Status: Chronic (4) Elevated liver enzymes Status: Acute DAVY ROME DO Jul 31, 2018 10:50
--- NOTE | 2018-07-31 10:55 | Physical Therapy Daily Note ---
PT Daily Note-Current Subjective Attempted to see pt x 2 this am. Pt says "I feel like crap. I am weak and dizzy." Pt nurse present and advised to not push it today as her hemoglobin has been low but is improving. No treatment rendered at this time. Transfers Functional [place] Measure 0=Not Assessed/NA 4=Minimal Assistance 1=Total Assistance 5=Supervision or Setup 2=Maximal Assistance 6=Modified [place] 3=Moderate Assistance 7=Complete IndependenceIRFPAI Quality Coding Scale 6 Independent with activity with or without an assistive device 5 Patient requires set up or clean up by helper. Patient completes activity by themselves 4 Supervision or touching assist (CGA). [place] provide cues , steadying assist 3 The helper provides less than half the effort to complete the activity 2 The helper provides more than half the effort to complete the activity 1 Dependent. The helper does all the effort to complete an activity 7 Patient refused to complete or attempt activity 9 The patient did not perform the activity before the current illness or injury 88 Not attempted due to Medical conditions or safety concerns Weight Bearing Right Lower Extremity: Right Weight Bearing/Tolerated Left Lower Extremity: Left Weight Bearing/Tolerated PT Custodian Athletic Equipment Goals Assisted Goals PT Custodian Athletic Equipment Goals Time Frame: Jul 30, 2018 Transfers (B,C,W/C) (FIM): 6 Gait (FIM): 6 PT Plan Treatment/Plan Treatment Plan: Continue Plan of Care Treatment Plan: Bed Mobility, Education, Functional Activity Carlos A, Functional Strength, Gait, Safety, Therapeutic Exercise, Transfers Treatment Duration: Jul 30, 2018 Frequency: 6 times per week Estimated Hrs Per Day: .5 hour per day Patient and/or Family Agrees t: Yes Time/GCodes Time In: 900 Time Out: 905 Total Billed Treatment Time: 0 Total Billed Treatment 1, no treatment MARTINEZ ARELLANO CPTA Jul 31, 2018 10:55
--- NOTE | 2018-07-31 11:39 | Progress Note (SOAP) ---
Subjective Date Seen by Provider: Jul 31, 2018 Time Seen by Provider: 11:30 Subjective/Events-last exam Patient seen with Dr. Carias. Patient reports doing well but does have fatigue. Having BMs which patient states are more formed. No nausea/vomiting. No fever/ chills. Does still reports abdominal pain. Also reports that she feels hungry. Patient reports that she did get up to go to the bathroom and the wound vac site started draining lots of brown liquid drainage. Objective Exam Vital Signs Date Time Temp Pulse Resp B/P (MAP) Pulse Ox O2 Delivery O2 Flow Rate FiO2 07/31/18 10:36 97 Room Air 07/31/18 08:00 99.5 84 18 169/74 (105) 94 Room Air 07/31/18 07:56 81 165/72 (103) 98 Room Air 07/31/18 07:55 97 Room Air 07/31/18 04:00 99.3 82 24 159/68 (98) 97 Room Air 07/31/18 02:24 97 Room Air 07/31/18 00:00 98.9 86 20 134/62 (86) 96 Room Air 07/30/18 22:09 97 Room Air 07/30/18 20:20 98.9 79 16 159/70 (99) 97 Room Air 07/30/18 19:25 97 Room Air 07/30/18 15:40 99.1 89 16 138/58 (84) 96 Room Air 07/30/18 14:26 96 Room Air 07/30/18 12:38 98.7 80 18 147/65 (92) 97 Room Air I & O 07/31/18 07:00 Intake Total 1600 ml Output Total 3550 ml Balance -1950 ml Capillary Refill : General Appearance: No Apparent Distress, WD/WN Neck: Full Range of Motion, Normal Inspection, Non Tender, Supple Respiratory: Chest Non Tender, No Accessory Muscle Use, No Respiratory Distress Cardiovascular: Regular Rate, Rhythm, No Murmur Gastrointestinal: normal bowel sounds, soft, tenderness, other (Midline incision with wound vac in place. left previous colostomy site with purulent drainage noted.) Extremity: Normal Capillary Refill, Normal Range of Motion, Swelling (approx 1+ ) Neurologic/Psychiatric: Alert, Oriented x3 Results Lab Laboratory Tests 07/30/18 23:36: Glucometer 174H 07/31/18 05:24: Glucometer 180H 9/1/18 06:35: White Blood Count 9.7, Red Blood Count 2.27L, Hemoglobin 6.7*L, Hematocrit 19*L , Mean Corpuscular Volume 85, Mean Corpuscular Hemoglobin 30, Mean Corpuscular Hemoglobin Concent 35, Red Cell Distribution Width 14.4, Platelet Count 352, Mean Platelet Volume 10.5H, Neutrophils (%) (Auto) 80H, Lymphocytes (%) (Auto) 10L, Monocytes (%) (Auto) 9, Eosinophils (%) (Auto) 1, Basophils (%) (Auto) 0, Neutrophils # (Auto) 7.8, Lymphocytes # (Auto) 1.0, Monocytes # (Auto) 0.9, Eosinophils # (Auto) 0.1, Basophils # (Auto) 0.0, Sodium Level 148H, Potassium Level 2.9L, Chloride Level 112H, Carbon Dioxide Level 25, Anion Gap 11, Blood Urea Nitrogen 15, Creatinine 0.68, Estimat Glomerular Filtration Rate > 60, BUN/ Creatinine Ratio 22, Glucose Level 171H, Calcium Level 8.0L, Corrected Calcium 9.3, Phosphorus Level 2.7, Magnesium Level 2.4, Total Bilirubin 0.7, Aspartate Amino Transf (AST/SGOT) 13, Alanine Aminotransferase (ALT/SGPT) 7, Alkaline Phosphatase 148H, Total Protein 4.8L, Albumin 2.4L 07/31/18 07:50: Hemoglobin 7.1L, Hematocrit 21L 07/31/18 11:12: Glucometer 204H Microbiology 07/30/18 Gram Stain - Final, Resulted 07/30/18 Wound Culture - Preliminary, Resulted Pseudomonas aeruginosa Gram Negative Bacillus 2 Assessment/Plan Assessment/Plan Assess & Plan/Chief Complaint A 62 year old female who is S/P reversal of colostomy with total colectomy with ileorectal anastomosis There does appear to be a fistula formation at the midline incision and having copious amounts of brown liquid from the wound vac dressing. VSS Will continue to monitor labs and recheck H&H this evening. Continue with NG and will need to proceed with changing wound vac vs dressing for midline incision for drainage. DAVIAN JUNIOR APRN Jul 31, 2018 11:39
[2018-07-31] MEDS: ENOXAPARIN 40 MG/0.4 ML (LOVENOX) SYR SC SCH (13:56)
[2018-07-31] MEDS: POTASSIUM CL 10MEQ/50ML IVPB 50 ML IV SCH ×4 (14:19→17:47)
[2018-07-31 16:38] LABS: HEMOGLOBIN 7.2 G/DL (11.5-16.0)
[2018-07-31] MEDS: 1/2 NS IV SOLUTION 1,000 ML IV SCH (16:46)
[2018-07-31] MEDS: 3-IN-1 TPN IV SCH ×11 (16:49)
[2018-07-31] MEDS: SIMvastatin 20 MG (ZOCOR) TAB PO SCH (20:09)
[2018-07-31] MEDS: ESTROGEN ESTER PO SCH (20:09)
[2018-07-31] MEDS: TESTOSTERONE PO SCH (20:09)
[2018-08-01] VITALS (11 sets, daily range): BP systolic 128–183; BP diastolic 60–77
[2018-08-01] MEDS: METOCLOPRAMIDE INJ 10 MG/2 ML (REGLAN) IVP SCH ×5 (00:39→23:57)
[2018-08-01] MEDS: hydrALAZINE (APESOLINE) 20 MG/ML VIAL IV PRN ×4 (00:40→20:22)
[2018-08-01] MEDS: oxyCODONE/APAP 5/325MG (PERCOCET 5) TABLET PO PRN ×6 (02:02→23:57)
[2018-08-01] MEDS: PIPERACILLIN SODIUM/TAZOBACTAM 4.5 GM in NS (IVPB) 100 ML IV SCH ×3 (02:03→18:00)
[2018-08-01] MEDS: KCL 20 MEQ TAB (K-DUR) PO SCH ×2 (06:26→16:01)
[2018-08-01] MEDS: LEVOTHYROXINE 100 MCG (LEVOTHROID) TAB PO SCH (06:26)
[2018-08-01] MEDS: OLMESARTAN 20 MG (BENICAR) TABLET PO SCH (08:38)
[2018-08-01] MEDS: amLODIPine 10 MG (NORVASC) TAB PO SCH (08:39)
[2018-08-01] MEDS: fentaNYL INJECTION 100 MCG/2 ML AMP IV PRN ×7 (09:08→22:04)
--- NOTE | 2018-08-01 10:20 | Progress Note (SOAP) ---
Subjective Date Seen by Provider: Aug 01, 2018 Time Seen by Provider: 09:50 Subjective/Events-last exam Patient seen with Dr. Carias. Patient reports doing ok, about the same as yesterday. Tolerating liquids but has NG. No N/V. No fever/chills. Passing gas and having BMs. Does reports some abdominal pain. Objective Exam Vital Signs Date Time Temp Pulse Resp B/P (MAP) Pulse Ox O2 Delivery O2 Flow Rate FiO2 08/01/18 08:26 99.1 89 16 168/74 (105) 100 Room Air 08/01/18 06:41 98 Room Air 08/01/18 04:30 98.6 83 20 148/70 (96) 97 Room Air 08/01/18 02:42 98 Room Air 08/01/18 01:30 78 140/68 (92) 08/01/18 00:00 98.3 88 20 168/72 (104) 95 Room Air 07/31/18 22:38 98 Room Air 07/31/18 19:50 99.7 90 18 160/75 (103) 95 Room Air 07/31/18 18:53 96 Room Air 07/31/18 15:46 99.8 79 20 161/70 (100) 96 Room Air 07/31/18 14:20 97 Room Air 07/31/18 12:00 99.8 99 22 169/72 (104) 98 Room Air 07/31/18 10:36 97 Room Air I & O 08/01/18 07:00 Intake Total 3240 ml Output Total 3160 ml Balance 80 ml Capillary Refill : General Appearance: No Apparent Distress, WD/WN Neck: Full Range of Motion, Normal Inspection, Non Tender, Supple Respiratory: Chest Non Tender, No Accessory Muscle Use, No Respiratory Distress Cardiovascular: Regular Rate, Rhythm, No Murmur Gastrointestinal: normal bowel sounds, soft, tenderness Extremity: Normal Capillary Refill, Normal Inspection, Normal Range of Motion Neurologic/Psychiatric: Alert, Oriented x3 Skin: Other (Midline abdominal incision with large drainage appliance in place with liquid yellowish-brown drainage. Previous colostomy site with purulent drainage.) Results Lab Laboratory Tests 07/31/18 11:12: Glucometer 204H 07/31/18 16:15: Hemoglobin 7.2L, Hematocrit 21L 07/31/18 18:21: Glucometer 178H 07/31/18 23:58: Glucometer 175H 08/01/18 06:16: Glucometer 160H 08/01/18 10:05: Microbiology 07/30/18 Gram Stain - Final, Resulted 07/30/18 Wound Culture - Preliminary, Resulted Pseudomonas aeruginosa Gram Negative Bacillus 2 Assessment/Plan Assessment/Plan Assess & Plan/Chief Complaint A 62 year old female who is S/P reversal of colostomy with total colectomy with ileorectal anastomosis There does appear to be a fistula formation at the midline incision and having copious amounts of yellowish-brown liquid from incision. VSS Will continue to monitor labs. Continue with NG and dressing changes. TPN, pain, nausea, and antibiotic meds. Continue DVT prophylaxis. DAVIAN JUNIOR MANUFACTURING ENGINEER PAINT Aug 01, 2018 10:20
[2018-08-01 10:27] LABS: BASOPHILS # (AUTO) 0.1 10^3/uL (0.0-0.1); BASOPHILS % (AUTO) 0 % (0-10); EOSINOPHILS # (AUTO) 0.2 10^3/uL (0.0-0.3); EOSINOPHILS % (AUTO) 2 % (0-10); HEMATOCRIT 23 % (35-52); HEMOGLOBIN 7.7 G/DL (11.5-16.0); LYMPHOCYTES # (AUTO) 1.3 X 10^3 (1.0-4.0); LYMPHOCYTES % (AUTO) 11 % (12-44); MEAN CORPUSCULAR HEMOGLOBIN 28 PG (25-34); MEAN CORPUSCULAR HGB CONC 33 G/DL (32-36); MEAN CORPUSCULAR VOLUME 86 FL (80-99); MEAN PLATELET VOLUME 10.2 FL (7.4-10.4); MONOCYTES # (AUTO) 0.9 X 10^3 (0.0-1.0); MONOCYTES % (AUTO) 7 % (0-12); NEUTROPHILS # (AUTO) 9.8 X 10^3 (1.8-7.8); NEUTROPHILS % (AUTO) 80 % (42-75); PLATELET COUNT 468 10^3/uL (130-400); RED BLOOD COUNT 2.72 10^6/uL (4.35-5.85); RED CELL DISTRIBUTION WIDTH 14.6 % (10.0-14.5); WHITE BLOOD COUNT 12.3 10^3/uL (4.3-11.0)
[2018-08-01 10:41] LABS: ALANINE AMINOTRANSFERASE 14 U/L (0-55); ALBUMIN 2.6 GM/DL (3.2-4.5); ALKALINE PHOSPHATASE 206 U/L (40-136); BILIRUBIN,TOTAL 0.8 MG/DL (0.1-1.0); BUN/CREATININE RATIO 24; CALCIUM 8.3 MG/DL (8.5-10.1); CARBON DIOXIDE 25 MMOL/L (21-32); CHLORIDE 109 MMOL/L (98-107); CREATININE SERUM 0.72 MG/DL (0.60-1.30); GFR ESTIMATED > 60; GLUCOSE 191 MG/DL (70-105); POTASSIUM 3.2 MMOL/L (3.6-5.0); SODIUM 144 MMOL/L (135-145); TOTAL PROTEIN 5.5 GM/DL (6.4-8.2)
[2018-08-01] MEDS: ENOXAPARIN 40 MG/0.4 ML (LOVENOX) SYR SC SCH (12:17)
--- NOTE | 2018-08-01 12:43 | Progress Note-Hospitalist ---
Subjective HPI/CC On Admission Date Seen by Provider: Aug 01, 2018 Time Seen by Provider: 10:30 Subjective/Events-last exam Patient continues to maintain medically complex issues Hemoglobin did rise without transfusions Edema due to poor albumin status with third spacing Vitals remained stable Antibiotics reviewed Pain is controlled White count is 12,000 Review of Systems General: Fatigue Objective Exam Vital Signs Vital Signs Date Time Temp Pulse Resp B/P (MAP) Pulse Ox O2 Delivery O2 Flow Rate FiO2 08/01/18 10:26 99 Room Air 08/01/18 10:19 164/77 (106) 08/01/18 08:26 99.1 89 16 07/30/18 04:23 5.00 07/29/18 19:57 60 Capillary Refill : General Appearance: No Apparent Distress, WD/WN, Chronically ill, Thin Respiratory: Lungs Clear, Normal Breath Sounds Cardiovascular: Regular Rate, Rhythm, No Edema Neurologic/Psychiatric: Alert, Oriented x3, No Motor/Sensory Deficits, Depressed Affect Results/Procedures Lab Laboratory Tests 07/31/18 16:15 08/01/18 10:05 Patient resulted labs reviewed. Assessment/Plan Assessment and Plan Assess & Plan/Chief Complaint s/p colostomy takedown uncomplicated but now with additional complications Post op ileus Previous bowel perforation requiring critical care management then extensive IRF which resulted in phenomenal recovery Severe anemia Fever Plan: Monitor pain Ambulate NGT Monitor liver and sugar Transfusion prn Diagnosis/Problems Diagnosis/Problems (1) REVERSAL OF COLOSTOMY Status: Acute (2) Anemia Status: Chronic Qualifiers: Anemia type: unspecified type Qualified Codes: D64.9 - Anemia, unspecified (3) Protein malnutrition Status: Chronic (4) Elevated liver enzymes Status: Acute DAVY ROME DO Aug 01, 2018 12:42
[2018-08-01] MEDS: 3-IN-1 TPN IV SCH ×11 (16:01)
[2018-08-01] MEDS: 1/2 NS IV SOLUTION 1,000 ML IV SCH (16:02)
[2018-08-01] MEDS: SIMvastatin 20 MG (ZOCOR) TAB PO SCH (20:01)
[2018-08-01] MEDS: TESTOSTERONE PO SCH (20:02)
[2018-08-01] MEDS: ESTROGEN ESTER PO SCH (20:02)
[2018-08-02] VITALS (7 sets, daily range): BP systolic 138–168; BP diastolic 62–77
[2018-08-02] MEDS: fentaNYL INJECTION 100 MCG/2 ML AMP IV PRN ×7 (01:47→20:59)
[2018-08-02] MEDS: PIPERACILLIN SODIUM/TAZOBACTAM 4.5 GM in NS (IVPB) 100 ML IV SCH ×3 (02:26→18:01)
[2018-08-02] MEDS: METOCLOPRAMIDE INJ 10 MG/2 ML (REGLAN) IVP SCH ×4 (05:45→23:00)
[2018-08-02] MEDS: LEVOTHYROXINE 100 MCG (LEVOTHROID) TAB PO SCH (05:45)
[2018-08-02] MEDS: oxyCODONE/APAP 5/325MG (PERCOCET 5) TABLET PO PRN ×3 (05:46→14:03)
[2018-08-02] MEDS: KCL 20 MEQ TAB (K-DUR) PO SCH (05:46)
[2018-08-02 05:48] LABS: BASOPHILS % (AUTO) 0 % (0-10); EOSINOPHILS # (AUTO) 0.2 10^3/uL (0.0-0.3); EOSINOPHILS % (AUTO) 2 % (0-10); HEMATOCRIT 22 % (35-52); HEMOGLOBIN 7.5 G/DL (11.5-16.0); LYMPHOCYTES # (AUTO) 1.7 X 10^3 (1.0-4.0); LYMPHOCYTES % (AUTO) 13 % (12-44); MEAN CORPUSCULAR HEMOGLOBIN 29 PG (25-34); MEAN CORPUSCULAR HGB CONC 34 G/DL (32-36); MEAN CORPUSCULAR VOLUME 85 FL (80-99); MEAN PLATELET VOLUME 10.6 FL (7.4-10.4); MONOCYTES # (AUTO) 1.1 X 10^3 (0.0-1.0); MONOCYTES % (AUTO) 8 % (0-12); NEUTROPHILS # (AUTO) 10.4 X 10^3 (1.8-7.8); NEUTROPHILS % (AUTO) 77 % (42-75); PLATELET COUNT 487 10^3/uL (130-400); RED CELL DISTRIBUTION WIDTH 14.6 % (10.0-14.5); WHITE BLOOD COUNT 13.5 10^3/uL (4.3-11.0)
[2018-08-02 06:19] LABS: ALANINE AMINOTRANSFERASE 26 U/L (0-55); ALBUMIN 2.6 GM/DL (3.2-4.5); ALKALINE PHOSPHATASE 211 U/L (40-136); BUN/CREATININE RATIO 25; CALCIUM 8.4 MG/DL (8.5-10.1); CARBON DIOXIDE 24 MMOL/L (21-32); CHLORIDE 109 MMOL/L (98-107); CREATININE SERUM 0.73 MG/DL (0.60-1.30); GFR ESTIMATED > 60; GLUCOSE 156 MG/DL (70-105); POTASSIUM 3.1 MMOL/L (3.6-5.0); SODIUM 144 MMOL/L (135-145); TOTAL PROTEIN 5.5 GM/DL (6.4-8.2)
[2018-08-02] MEDS: OLMESARTAN 20 MG (BENICAR) TABLET PO SCH (08:46)
[2018-08-02] MEDS: amLODIPine 10 MG (NORVASC) TAB PO SCH ×2 (08:46→08:52)
[2018-08-02] MEDS: hydrALAZINE (APESOLINE) 20 MG/ML VIAL IV PRN (08:49)
[2018-08-02] MEDS ORDERED: DIAZEPAM INJ 10 MG/2 ML (VALIUM) SYR IV PRN (09:45)
[2018-08-02] MEDS ORDERED: DIAZEPAM INJ 10 MG/2 ML (VALIUM) SYR IV NR (10:06)
--- NOTE | 2018-08-02 10:16 | Progress Note (SOAP) ---
Subjective Date Seen by Provider: Aug 02, 2018 Time Seen by Provider: 09:20 Subjective/Events-last exam Patient seen with Dr. Carias. Patient reports that she is doing about the same. She reports that she feels tense like she might be anxious. Tolerating liquids but has NG in place. Having BMs. Does report some abdominal discomfort. No fever/chills. Objective Exam Vital Signs Date Time Temp Pulse Resp B/P (MAP) Pulse Ox O2 Delivery O2 Flow Rate FiO2 08/02/18 08:48 163/73 (103) 08/02/18 08:00 98.7 85 20 168/77 (107) 100 08/02/18 07:11 98 Room Air 08/02/18 04:55 99.0 86 21 145/70 (95) 97 08/02/18 03:11 98 Room Air 08/02/18 00:35 138/62 (87) 08/01/18 23:49 98.7 85 16 167/71 (103) 98 Room Air 08/01/18 22:50 97 Room Air 08/01/18 20:08 98.7 92 20 167/72 (103) 99 Room Air 08/01/18 18:46 98 Room Air 08/01/18 18:25 92 128/60 (82) 08/01/18 15:28 152/64 (93) 08/01/18 15:22 99.3 76 20 183/75 (111) 98 Room Air 08/01/18 13:58 100 Room Air 08/01/18 12:00 99.0 84 20 164/72 (102) 98 Room Air 08/01/18 10:26 99 Room Air 08/01/18 10:19 164/77 (106) I & O 08/02/18 07:00 Intake Total 2100 ml Output Total 4910 ml Balance -2810 ml Capillary Refill : General Appearance: No Apparent Distress, WD/WN Neck: Full Range of Motion, Normal Inspection, Non Tender, Supple Respiratory: Chest Non Tender, No Accessory Muscle Use, No Respiratory Distress Cardiovascular: Regular Rate, Rhythm, No Murmur Gastrointestinal: normal bowel sounds, soft, tenderness Extremity: Normal Capillary Refill, Normal Range of Motion, Swelling (approx 1+ ) Neurologic/Psychiatric: Alert, Oriented x3 Skin: Other (Midline incision with large drainage appliance in place with liquid yellow-brown drainage. Left side previous colostomy site with continued purulent drainage. Tender to palpation.) Results Lab Laboratory Tests 08/01/18 12:37: Glucometer 187H 08/01/18 18:16: Glucometer 194H 08/01/18 23:25: Glucometer 174H 08/02/18 05:11: White Blood Count 13.5H, Red Blood Count 2.60L, Hemoglobin 7.5L, Hematocrit 22L , Mean Corpuscular Volume 85, Mean Corpuscular Hemoglobin 29, Mean Corpuscular Hemoglobin Concent 34, Red Cell Distribution Width 14.6H, Platelet Count 487H, Mean Platelet Volume 10.6H, Neutrophils (%) (Auto) 77H, Lymphocytes (%) (Auto) 13, Monocytes (%) (Auto) 8, Eosinophils (%) (Auto) 2, Basophils (%) (Auto) 0, Neutrophils # (Auto) 10.4H, Lymphocytes # (Auto) 1.7, Monocytes # (Auto) 1.1H, Eosinophils # (Auto) 0.2, Basophils # (Auto) 0.0, Sodium Level 144, Potassium Level 3.1L, Chloride Level 109H, Carbon Dioxide Level 24, Anion Gap 11, Blood Urea Nitrogen 18, Creatinine 0.73, Estimat Glomerular Filtration Rate > 60, BUN/ Creatinine Ratio 25, Glucose Level 156H, Calcium Level 8.4L, Corrected Calcium 9.5, Total Bilirubin 1.0, Aspartate Amino Transf (AST/SGOT) 36H, Alanine Aminotransferase (ALT/SGPT) 26, Alkaline Phosphatase 211H, Total Protein 5.5L, Albumin 2.6L 08/02/18 05:27: Glucometer 170H Microbiology 07/30/18 Gram Stain - Final, Resulted 07/30/18 Wound Culture - Preliminary, Resulted Pseudomonas aeruginosa Escherichia coli Assessment/Plan Assessment/Plan Assess & Plan/Chief Complaint A 62 year old female who is S/P reversal of colostomy with total colectomy with ileorectal anastomosis There does appear to be a fistula formation at the midline incision and having copious amounts of yellowish-brown liquid from incision. VSS WBC increased slightly. Continue with NG and dressing changes. TPN, pain, nausea, and antibiotic meds. Continue DVT prophylaxis. DAVIAN JUNIOR TURBINE TECHNICIAN Aug 02, 2018 10:16
[2018-08-02] MEDS ORDERED: FLUCONAZOLE 200 MG/100 ML 100 ML IV NR (10:42)
[2018-08-02] MEDS ORDERED: D5W IV SCH ×2 (11:00→15:00)
[2018-08-02] MEDS ORDERED: GENTAMICIN IV SCH ×2 (11:00→15:00)
--- NOTE | 2018-08-02 11:35 | Progress Note-Hospitalist ---
Progress Note Progress Notes/Assess & Plan Date Seen 08/02/18 Time Seen by Provider: 11:28 Assessment & Plan The patient is a 62-year-old female known to me from a prolonged hospitalization last March and April (2016). During that hospitalization she had a bowel perforation as an apparent function of multiple petrified fecal balls. She then had a prolonged course of antibiotics and drains. She had a right hemicolectomy and a diverting colostomy placed at that time. She was scheduled for takedown of the colostomy on this admission. After laparoscopic evaluation she was found to have multiple microabscesses and it was felt best to open and perform the remainder of a total colectomy. She had an ileorectal anastomosis. She is struggling along in the postoperative period. She is currently receiving Zosyn, gentamicin, Diflucan as antimicrobials. Her temperature is 99.3 max white count is 13,500. Hemoglobin is covering in the 7.5 range. She is receiving potassium supplements and today's potassium is 3.1. She reports the oral potassium is very difficult to swallow. Her albumin is 2.6. She still has an NG tube in place she states that there is a tentative plan to remove that tomorrow. Physical exam: She is obviously lost weight since my last contact with her in April 2017. Lungs are clear to auscultation. CV is regular. The abdomen is soft. Impression: Status post colectomy with ileorectal anastomosis. 2.peritonitis/ multiple microabscesses. 3.hypertension. 4.stable anemia. 5.hypokalemia. Plan: Continue present antibiotics. Await surgeries decision on removing NG tube. Continue potassium supplementation. SAM FULTON MD Aug 02, 2018 11:35
[2018-08-02] MEDS ORDERED: HALOPERIDOL 5 MG/ML (HALDOL) AMP IV PRN (12:45)
[2018-08-02] MEDS: ENOXAPARIN 40 MG/0.4 ML (LOVENOX) SYR SC SCH (12:59)
[2018-08-02] MEDS ORDERED: ALPRAZolam 1 MG (XANAX) TAB PO PRN (13:15)
[2018-08-02] MEDS: cloNIDine 0.2 MG PATCH (CATAPRES TTS) TDSY TD SCH (14:03)
--- NOTE | 2018-08-02 14:33 | Physical Therapy Daily Note ---
PT Daily Note-Current Subjective Pt laying Supine in bed upon arrival. Pt agrees to PT but reports needing to use BSC before tx. Pain Numeric Pain Scale: 5-Moderate Pain Location: Left Location Body Site: Hip Pain Description: Ache Mental Status Patient Orientation: Person, Place, Time, Situation Attachments: NG Tube, IV Transfers Functional [place] Measure 0=Not Assessed/NA 4=Minimal Assistance 1=Total Assistance 5=Supervision or Setup 2=Maximal Assistance 6=Modified [place] 3=Moderate Assistance 7=Complete IndependenceIRFPAI Quality Coding Scale 6 Independent with activity with or without an assistive device 5 Patient requires set up or clean up by helper. Patient completes activity by themselves 4 Supervision or touching assist (CGA). [place] provide cues , steadying assist 3 The helper provides less than half the effort to complete the activity 2 The helper provides more than half the effort to complete the activity 1 Dependent. The helper does all the effort to complete an activity 7 Patient refused to complete or attempt activity 9 The patient did not perform the activity before the current illness or injury 88 Not attempted due to Medical conditions or safety concerns Scootin Supine to/from Sit: 5 Sit to/from Stand: 4 Weight Bearing Right Lower Extremity: Right Weight Bearing/Tolerated Left Lower Extremity: Left Weight Bearing/Tolerated Treatments POULTRY HATCHERY LABORER arrives and pt reports needing assistance to transfer to BS. POULTRY HATCHERY LABORER assists with SPT from EOB to BSC then back after finishing. Pt is able to stand at BSC to don/doff brief as needed. PT assists pt with managing lines during transfer. Pt rests back in bed at end of tx with all needs met. Assessment Current Status: Good Progress Pt fatigues easily although can complete transfers better than previous. PT Audiologist Goals Usp Goals PT Usp Goals Time Frame: Jul 30, 2018 Transfers (B,C,W/C) (FIM): 6 Gait (FIM): 6 PT Plan Problem List Problem List: Activity Tolerance, Functional Strength, Gait, Transfer Treatment/Plan Treatment Plan: Continue Plan of Care Treatment Plan: Bed Mobility, Education, Functional Activity Carlos A, Functional Strength, Gait, Safety, Therapeutic Exercise, Transfers Treatment Duration: Jul 30, 2018 Frequency: 6 times per week Estimated Hrs Per Day: .5 hour per day Patient and/or Family Agrees t: Yes Safety Risks/Education Patient Education: Transfer Techniques, Correct Positioning, Safety Issues Teaching Recipient: Patient Teaching Methods: Discussion Response to Teaching: Verbalize Understanding Time/GCodes Time In: 1137 Time Out: 1155 Total Billed Treatment Time: 18 Total Billed Treatment 1, DEVIN (18m) G Codes Necessary: RAMANDEEP Callejas PTA Aug 02, 2018 14:33
[2018-08-02] MEDS: KCL 10 MEQ TAB (MICRO K) PO SCH (16:09)
[2018-08-02] MEDS: 1/2 NS IV SOLUTION 1,000 ML IV SCH (16:09)
[2018-08-02] MEDS: 3-IN-1 TPN IV SCH ×11 (16:09)
[2018-08-02] MEDS: ONDANSETRON 4 MG/2 ML (SDV) Z0FRAN IVP PRN (18:25)
[2018-08-02] MEDS: TESTOSTERONE PO SCH (20:32)
[2018-08-02] MEDS: ESTROGEN ESTER PO SCH (20:32)
[2018-08-02] MEDS: SIMvastatin 20 MG (ZOCOR) TAB PO SCH (20:32)
[2018-08-02] MEDS ORDERED: TROUGH ORDER-PHARMACY XX NR (23:00)
[2018-08-03] VITALS: BP 146/65
[2018-08-03] MEDS: fentaNYL INJECTION 100 MCG/2 ML AMP IV PRN ×10 (02:19→22:48)
[2018-08-03] MEDS: PIPERACILLIN SODIUM/TAZOBACTAM 4.5 GM in NS (IVPB) 100 ML IV SCH (03:29)
[2018-08-03 04:00] VITALS: BP 147/66
[2018-08-03 06:05] LABS: BASOPHILS % (AUTO) 0 % (0-10); EOSINOPHILS # (AUTO) 0.3 10^3/uL (0.0-0.3); EOSINOPHILS % (AUTO) 2 % (0-10); HEMATOCRIT 23 % (35-52); HEMOGLOBIN 7.2 G/DL (11.5-16.0); LYMPHOCYTES # (AUTO) 1.4 X 10^3 (1.0-4.0); LYMPHOCYTES % (AUTO) 13 % (12-44); MEAN CORPUSCULAR HEMOGLOBIN 28 PG (25-34); MEAN CORPUSCULAR HGB CONC 32 G/DL (32-36); MEAN CORPUSCULAR VOLUME 88 FL (80-99); MEAN PLATELET VOLUME 10.6 FL (7.4-10.4); MONOCYTES # (AUTO) 0.9 X 10^3 (0.0-1.0); MONOCYTES % (AUTO) 8 % (0-12); NEUTROPHILS # (AUTO) 8.3 X 10^3 (1.8-7.8); NEUTROPHILS % (AUTO) 76 % (42-75); PLATELET COUNT 531 10^3/uL (130-400); RED BLOOD COUNT 2.55 10^6/uL (4.35-5.85); RED CELL DISTRIBUTION WIDTH 15.3 % (10.0-14.5); WHITE BLOOD COUNT 10.9 10^3/uL (4.3-11.0)
[2018-08-03] MEDS: KCL 10 MEQ TAB (MICRO K) PO SCH ×2 (06:16→17:25)
[2018-08-03] MEDS: LEVOTHYROXINE 100 MCG (LEVOTHROID) TAB PO SCH (06:16)
[2018-08-03] MEDS: METOCLOPRAMIDE INJ 10 MG/2 ML (REGLAN) IVP SCH ×4 (06:16→23:26)
[2018-08-03 06:28] LABS: ALANINE AMINOTRANSFERASE 31 U/L (0-55); ALBUMIN 2.7 GM/DL (3.2-4.5); ALKALINE PHOSPHATASE 205 U/L (40-136); BILIRUBIN,TOTAL 0.7 MG/DL (0.1-1.0); BUN/CREATININE RATIO 25; CALCIUM 8.6 MG/DL (8.5-10.1); CARBON DIOXIDE 25 MMOL/L (21-32); CHLORIDE 107 MMOL/L (98-107); CREATININE SERUM 0.77 MG/DL (0.60-1.30); GFR ESTIMATED > 60; GLUCOSE 137 MG/DL (70-105); POTASSIUM 3.6 MMOL/L (3.6-5.0); SODIUM 142 MMOL/L (135-145); TOTAL PROTEIN 5.8 GM/DL (6.4-8.2)
[2018-08-03 08:00] VITALS: BP 140/68
[2018-08-03] MEDS: amLODIPine 10 MG (NORVASC) TAB PO SCH (08:13)
[2018-08-03] MEDS: FLUCONAZOLE 200 MG/100 ML 50 ML, EMPTY IV BAG (PVC) 1 EA IV SCH ×2 (08:13)
[2018-08-03] MEDS: OLMESARTAN 20 MG (BENICAR) TABLET PO SCH (08:13)
--- NOTE | 2018-08-03 09:25 | Progress Note-Standard ---
Standard Progress Note Progress Notes/Assess & Plan Date Seen by Provider: Aug 03, 2018 Time Seen by Provider: 09:22 Progress/Assessment & Plan Urine output improved with fluid bolus administration. Normotensive. Off vasopressors. Awake and comfortable. Encouraged using incentive spirometry. Electrolytes within normal limits. Due to the requirement to continue monitoring urine output, Reynolds catheter will be retained till tomorrow. Pain control better. Wound dry.Minimal NG output. Vitals stable.Could be transferred to the floor Passing flatus and has had bowel movements. Turbid exudate from the midline wound. Fascia intact. Would benefit from wound VAC placement. Left advance diet and use oral pain medications. Hypokalemia, being replaced. Wound VAC in satisfactory position, minimal output. Low grade fever, but, patient feels to be improving. Will continue to monitor Tearful due to abdominal pain. Wound VAC would be replaced and fascia reexamined. Low-grade fever last night. Developing intra-abdominal abscesses need to be considered and CT scan would be obtained, if fever continues beyond today. CT scan shows fluid collections in the pelvis and the left paracolic gutter, not mature enough to be considered abscesses. Dilated small bowel loops possibly an ileus and therefore nasogastric tube was placed. We will use TPN and administration antibiotics. Follow-up CT scan in 4-5 days and if the fluid collections measured to be abscesses, CT-guided drainage would be performed. Patient and the family updated. Ileorectal anastomosis intact. Purulent drainage from the colostomy site, opened up at the bedside. Wet-to- dry dressing at this point. With regard to the midline wound, the fascia is intact and there is some slough along the superior aspect. Wound care would be replaced. An antibiotics will be continued. CT scan would be repeated on Thursday: 03 August and at that is a likelihood of percutaneous drainage. 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 Anemia of chronic disease, would benefit from transfusion. Pseudomonas and E.coli on cultures from the colostomy site abscess. Would switch to merepenem and stop zozyn. Final Diagnosis Resolved sigmoid perforation. Enterocutaneous fistula. Anemia of chronic disease MACY TALAVERA MD Aug 03, 2018 09:25
[2018-08-03] MEDS: MEROPENEM 500 MG in NS (IVPB) 100 ML IV SCH ×3 (11:56→23:26)
[2018-08-03 12:00] VITALS: BP 149/67
--- NOTE | 2018-08-03 12:03 | Physical Therapy Daily Note ---
PT Daily Note-Current Subjective Patient agrees to PT. Family present. Pain Numeric Pain Scale: 10-Worst Possible Pain Location: Lower Location Body Site: Abdomen Pain Description: Pressure, Chronic Mental Status Patient Orientation: Normal For Age Attachments: NG Tube, IV (5) Transfers Functional [place] Measure 0=Not Assessed/NA 4=Minimal Assistance 1=Total Assistance 5=Supervision or Setup 2=Maximal Assistance 6=Modified [place] 3=Moderate Assistance 7=Complete IndependenceIRFPAI Quality Coding Scale 6 Independent with activity with or without an assistive device 5 Patient requires set up or clean up by helper. Patient completes activity by themselves 4 Supervision or touching assist (CGA). [place] provide cues , steadying assist 3 The helper provides less than half the effort to complete the activity 2 The helper provides more than half the effort to complete the activity 1 Dependent. The helper does all the effort to complete an activity 7 Patient refused to complete or attempt activity 9 The patient did not perform the activity before the current illness or injury 88 Not attempted due to Medical conditions or safety concerns Transfers (B, C, W/C) (FIM): 5 Scootin Rollin Supine to/from Sit: 5 Sit to/from Stand: 5 Weight Bearing Right Lower Extremity: Right Weight Bearing/Tolerated Left Lower Extremity: Left Weight Bearing/Tolerated Gait Training Gait (FIM): 5 Distance (FIM): 3=150 ft Distance: 225' Gait Level of Assist: 5 Gait Assistive Device: FWW slow, functional Assessment Patient is up in recliner with needs met. PT to increase activity as patient tolerates. PT [facility] Goals Commercial Green Building Architect Goals PT [facility] Goals Time Frame: Jul 30, 2018 Transfers (B,C,W/C) (FIM): 6 Gait (FIM): 6 PT Plan Treatment/Plan Treatment Plan: Continue Plan of Care Treatment Plan: Bed Mobility, Education, Functional Activity Carlos A, Functional Strength, Gait, Safety, Therapeutic Exercise, Transfers Treatment Duration: Jul 30, 2018 Frequency: 6 times per week Estimated Hrs Per Day: .5 hour per day Patient and/or Family Agrees t: Yes Time/GCodes Time In: 1137 Time Out: 1150 Total Billed Treatment Time: 13 Total Billed Treatment 1 visit GT 13 min JOSE CARUSO PT Aug 03, 2018 12:03
[2018-08-03] MEDS: ENOXAPARIN 40 MG/0.4 ML (LOVENOX) SYR SC SCH (14:02)
[2018-08-03 16:37] VITALS: BP 152/67
[2018-08-03] MEDS: POTASSIUM CHLORIDE IV SCH ×10 (17:22)
[2018-08-03] MEDS: [UNRECOGNIZED DRUG - OTHER] IV SCH ×10 (17:22)
[2018-08-03] MEDS: SODIUM ACETATE IV SCH ×10 (17:22)
[2018-08-03] MEDS: 1/2 NS IV SOLUTION 1,000 ML IV SCH (20:07)
[2018-08-03 20:11] VITALS: BP 115/69
[2018-08-03] MEDS: SIMvastatin 20 MG (ZOCOR) TAB PO SCH (20:19)
[2018-08-03] MEDS: TESTOSTERONE PO SCH (20:20)
[2018-08-03] MEDS: ESTROGEN ESTER PO SCH (20:20)
--- NOTE | 2018-08-03 23:21 | Progress Note (SOAP) ---
Subjective Subjective Date Seen by Provider: Aug 03, 2018 Time Seen by Provider: 15:10 Pt reports she feels a little better- a little improved- feels like if she could do her hurrying up and waiting at home; she would be even better but understands that she needs the closer monitoring. No issues breathing- oxygen saturation 100% (of note though hgb is a little above 7) -Awaiting a new abdomen seal-bag to cover her opening- Enterofistula developed over the weekend. -Zosyn changed to meropenem with culture growing e.coli, pseudomonas. -Abdominal pain still is an issue. No fevers >24hours. Review of Systems General: Fatigue HEENT: No Head Aches Pulmonary: No Dyspnea, No Cough Cardiovascular: No: Chest Pain Gastrointestinal: Abdominal Pain; No: Nausea Genitourinary: No Dysuria, No Frequency Musculoskeletal: No: neck pain, shoulder pain Neurological: Weakness Objective Exam Vital Signs Vital Signs Date Time Temp Pulse Resp B/P (MAP) Pulse Ox O2 Delivery O2 Flow Rate FiO2 08/03/18 21:29 98 Room Air 08/03/18 21:00 Room Air 08/03/18 20:11 99.3 84 16 115/69 (84) 96 Room Air 08/03/18 18:46 99 Room Air 08/03/18 16:37 99.4 83 18 152/67 (95) 100 Room Air 08/03/18 14:23 99 Room Air 08/03/18 12:00 99.1 94 18 149/67 (94) 99 Room Air 08/03/18 10:35 99 Room Air 08/03/18 08:00 99.2 78 18 140/68 (92) 94 Room Air 08/03/18 06:32 95 08/03/18 04:00 99.6 80 20 147/66 (93) 100 08/03/18 02:28 95 Room Air 08/03/18 00:00 99.2 88 16 146/65 (92) 99 Room Air I & O 08/03/18 07:00 Intake Total 3080.75 ml Output Total 4100 ml Balance -1019.25 ml General Appearance: No Apparent Distress, WD/WN HEENT: PERRL/EOMI Neck: Full Range of Motion, Normal Inspection, Non Tender, Supple Respiratory: Chest Non Tender, No Accessory Muscle Use, No Respiratory Distress Cardiovascular: Regular Rate, Rhythm, No Murmur Gastrointestinal: Non Tender, Soft (bandaged) Rectal: Deferred Back: No CVA Tenderness Extremity: Normal Capillary Refill, Normal Range of Motion, Swelling (approx 1+ ) Neurologic/Psychiatric: Alert, Oriented x3 Skin: Other (Midline incision with large drainage appliance in place with liquid yellow-brown drainage. Left side previous colostomy site with continued purulent drainage. Tender to palpation.) Results Lab Laboratory Tests 08/02/18 23:27: Glucometer 124H 08/03/18 05:26: White Blood Count 10.9, Red Blood Count 2.55L, Hemoglobin 7.2L, Hematocrit 23L, Mean Corpuscular Volume 88, Mean Corpuscular Hemoglobin 28, Mean Corpuscular Hemoglobin Concent 32, Red Cell Distribution Width 15.3H, Platelet Count 531H, Mean Platelet Volume 10.6H, Neutrophils (%) (Auto) 76H, Lymphocytes (%) (Auto) 13, Monocytes (%) (Auto) 8, Eosinophils (%) (Auto) 2, Basophils (%) (Auto) 0, Neutrophils # (Auto) 8.3H, Lymphocytes # (Auto) 1.4, Monocytes # (Auto) 0.9, Eosinophils # (Auto) 0.3, Basophils # (Auto) 0.0, Sodium Level 142, Potassium Level 3.6, Chloride Level 107, Carbon Dioxide Level 25, Anion Gap 10, Blood Urea Nitrogen 19H, Creatinine 0.77, Estimat Glomerular Filtration Rate > 60, BUN /Creatinine Ratio 25, Glucose Level 137H, Calcium Level 8.6, Corrected Calcium 9.6, Total Bilirubin 0.7, Aspartate Amino Transf (AST/SGOT) 31, Alanine Aminotransferase (ALT/SGPT) 31, Alkaline Phosphatase 205H, Total Protein 5.8L, Albumin 2.7L, Triglycerides Level 169H 08/03/18 17:49: Glucometer 135H Microbiology 07/30/18 Gram Stain - Final, Complete 07/30/18 Wound Culture - Final, Complete Pseudomonas aeruginosa Escherichia coli Assessment/Plan Assessment/Plan Admission Dx ostomy reversal Assessment and Plan 62 yo F s/p iliorectal anastomosis- Dr. Ng, Surgery. wound vac on. on zosyn for abdominal coverage. (F43.21) Adjustment disorder with depressed mood- stable- (I10) Essential (primary) hypertension- monitor blood pressure- continue home medications. (E03.9) Hypothyroidism- continue levothyroxine- will check tsh as an outpatient in 1-2 month. hypokalemia- replacing prn acute hypoxic respiratory distress- recovered- monitoring oxygen -Intra-abdominal infection- on meropenem- for ecoli, pseudomonas. enterocutaneous fistula- monitoring Dispo: monitoring closely. On TPN for nutrition. Problems: (1) REVERSAL OF COLOSTOMY (2) Anemia Qualifiers: (3) Protein malnutrition Admission Dx ostomy reversal Clinical Quality Measures Admission Status Admission Dx ostomy reversal BATOOL MEJÍA MD Aug 03, 2018 23:21
[2018-08-04] VITALS (12 sets, daily range): BP systolic 133–164; BP diastolic 56–72
[2018-08-04] MEDS: fentaNYL INJECTION 100 MCG/2 ML AMP IV PRN ×7 (02:21→22:52)
[2018-08-04] MEDS: KCL 10 MEQ TAB (MICRO K) PO SCH ×2 (06:01→16:36)
[2018-08-04] MEDS: METOCLOPRAMIDE INJ 10 MG/2 ML (REGLAN) IVP SCH ×4 (06:01→23:36)
[2018-08-04] MEDS: LEVOTHYROXINE 100 MCG (LEVOTHROID) TAB PO SCH (06:01)
[2018-08-04] MEDS: MEROPENEM 500 MG in NS (IVPB) 100 ML IV SCH ×4 (06:02→23:36)
[2018-08-04] MEDS: amLODIPine 10 MG (NORVASC) TAB PO SCH (09:06)
[2018-08-04] MEDS: oxyCODONE/APAP 5/325MG (PERCOCET 5) TABLET PO PRN ×4 (09:06→20:20)
[2018-08-04] MEDS: OLMESARTAN 20 MG (BENICAR) TABLET PO SCH (09:11)
[2018-08-04] MEDS: FLUCONAZOLE 200 MG/100 ML 50 ML, EMPTY IV BAG (PVC) 1 EA IV SCH ×2 (09:11)
--- NOTE | 2018-08-04 09:53 | Progress Note (SOAP) ---
Subjective Subjective Date Seen by Provider: Aug 04, 2018 Time Seen by Provider: 09:05 Pt reports she feels a little better- a little improved- Aware that 2 units of blood have been ordered. She would like to get some energy back. She is still hopeful to go home in near future. Still gets temps of 99F Review of Systems General: Fatigue HEENT: No Head Aches Pulmonary: No Dyspnea, No Cough Cardiovascular: No: Chest Pain Gastrointestinal: Abdominal Pain; No: Nausea Genitourinary: No Dysuria, No Frequency Musculoskeletal: No: neck pain, shoulder pain Neurological: Weakness Objective Exam Vital Signs Vital Signs Date Time Temp Pulse Resp B/P (MAP) Pulse Ox O2 Delivery O2 Flow Rate FiO2 08/04/18 08:00 99.1 90 16 145/60 (88) 100 Room Air 08/04/18 07:12 99 Room Air 08/04/18 04:00 98.3 84 20 149/68 (95) 99 Room Air 08/04/18 01:32 99 Room Air 08/04/18 00:00 98.4 79 20 140/65 (90) 98 Room Air 08/03/18 21:29 98 Room Air 08/03/18 21:00 Room Air 08/03/18 20:11 99.3 84 16 115/69 (84) 96 Room Air 08/03/18 18:46 99 Room Air 08/03/18 16:37 99.4 83 18 152/67 (95) 100 Room Air 08/03/18 14:23 99 Room Air 08/03/18 12:00 99.1 94 18 149/67 (94) 99 Room Air 08/03/18 10:35 99 Room Air I & O 08/04/18 07:00 Intake Total 810 ml Output Total 4285 ml Balance -3475 ml General Appearance: WD/WN, Mild Distress HEENT: PERRL/EOMI Neck: Full Range of Motion, Normal Inspection, Non Tender, Supple Respiratory: Chest Non Tender, No Accessory Muscle Use, No Respiratory Distress Cardiovascular: Regular Rate, Rhythm, No Murmur Gastrointestinal: Soft, Tenderness, Other (bag over abdominal opening) Rectal: Deferred Back: No CVA Tenderness Extremity: Normal Capillary Refill, Normal Range of Motion, Swelling (approx 1+ ) Neurologic/Psychiatric: Alert, Oriented x3 Skin: Other (Midline incision with large drainage appliance in place with liquid yellow-brown drainage. Left side previous colostomy site with continued purulent drainage. Tender to palpation.) Results Lab Laboratory Tests 08/03/18 17:49: Glucometer 135H 08/04/18 00:27: Glucometer 138H 08/04/18 06:12: Glucometer 159H Microbiology 07/30/18 Gram Stain - Final, Complete 07/30/18 Wound Culture - Final, Complete Pseudomonas aeruginosa Escherichia coli Assessment/Plan Assessment/Plan Admission Dx ostomy reversal Assessment and Plan 62 yo F s/p iliorectal anastomosis-07/21/18 Dr. Ng, Surgery. zosyn switched to meropenem 08/03/18 (F43.21) Adjustment disorder with depressed mood- stable- (I10) Essential (primary) hypertension- monitor blood pressure- stopped amlodipine as pt reports it makes her short of breath. (E03.9) Hypothyroidism- continue levothyroxine- will check tsh as an outpatient in 1-2 month. E87.6 hypokalemia- replacing prn -Intra-abdominal infection- on meropenem- for ecoli, pseudomonas. -enterocutaneous fistula- monitoring -anemia of chronic disease- transfusing 2 units pRBC 08/04/18 -protein calorie malnutrition - on TPN Dispo: monitoring closely. On TPN for nutrition. Problems: (1) Anemia Qualifiers: (2) Protein malnutrition Admission Dx ostomy reversal Clinical Quality Measures Admission Status Admission Dx ostomy reversal BATOOL MEJÍA MD Aug 04, 2018 09:53
--- NOTE | 2018-08-04 09:54 | Physical Therapy Progress Note ---
Therapy Progress Note Pt reports feeling weak and nauseated. Pt to receive blood per Nurse. PT will try pt back later today. 1 visit, no tx render Time: 940 RAMANDEEP CARR PTA Aug 04, 2018 09:54
[2018-08-04] MEDS ORDERED: NS IV 500 ML 500 ML IV ONE (10:00)
--- NOTE | 2018-08-04 12:42 | Progress Note-Standard ---
Standard Progress Note Progress Notes/Assess & Plan Date Seen by Provider: Aug 04, 2018 Time Seen by Provider: 12:37 Progress/Assessment & Plan Urine output improved with fluid bolus administration. Normotensive. Off vasopressors. Awake and comfortable. Encouraged using incentive spirometry. Electrolytes within normal limits. Due to the requirement to continue monitoring urine output, Reynolds catheter will be retained till tomorrow. Pain control better. Wound dry.Minimal NG output. Vitals stable.Could be transferred to the floor Passing flatus and has had bowel movements. Turbid exudate from the midline wound. Fascia intact. Would benefit from wound VAC placement. Left advance diet and use oral pain medications. Hypokalemia, being replaced. Wound VAC in satisfactory position, minimal output. Low grade fever, but, patient feels to be improving. Will continue to monitor Tearful due to abdominal pain. Wound VAC would be replaced and fascia reexamined. Low-grade fever last night. Developing intra-abdominal abscesses need to be considered and CT scan would be obtained, if fever continues beyond today. CT scan shows fluid collections in the pelvis and the left paracolic gutter, not mature enough to be considered abscesses. Dilated small bowel loops possibly an ileus and therefore nasogastric tube was placed. We will use TPN and administration antibiotics. Follow-up CT scan in 4-5 days and if the fluid collections measured to be abscesses, CT-guided drainage would be performed. Patient and the family updated. Ileorectal anastomosis intact. Purulent drainage from the colostomy site, opened up at the bedside. Wet-to- dry dressing at this point. With regard to the midline wound, the fascia is intact and there is some slough along the superior aspect. Wound care would be replaced. An antibiotics will be continued. CT scan would be repeated on Thursday: 03 August and at that is a likelihood of percutaneous drainage. 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 Anemia of chronic disease, would benefit from transfusion. Pseudomonas and E.coli on cultures from the colostomy site abscess. Would switch to merepenem and stop zosyn. Low output entero-cutaneous fistula. In good spirits. LLQ abscess appears to be subcutaneous. Will repeat CT to rule our undrained abscesses/fluid collections. Final Diagnosis Entero-cutaneous fistula MACY TALAVERA MD Aug 04, 2018 12:42
[2018-08-04] MEDS: ENOXAPARIN 40 MG/0.4 ML (LOVENOX) SYR SC SCH (13:02)
--- NOTE | 2018-08-04 16:03 | Physical Therapy Daily Note ---
PT Daily Note-Current Subjective Pt laying Supine in bed upon arrival. Pt appears to be feeling better since receiving blood. Pt agrees to Supine Ex for PT. Pain Numeric Pain Scale: 3 Location Body Site: Abdomen Pain Description: Ache Mental Status Patient Orientation: Person, Place, Time, Situation Attachments: IV Transfers Functional [place] Measure 0=Not Assessed/NA 4=Minimal Assistance 1=Total Assistance 5=Supervision or Setup 2=Maximal Assistance 6=Modified [place] 3=Moderate Assistance 7=Complete IndependenceIRFPAI Quality Coding Scale 6 Independent with activity with or without an assistive device 5 Patient requires set up or clean up by helper. Patient completes activity by themselves 4 Supervision or touching assist (CGA). [place] provide cues , steadying assist 3 The helper provides less than half the effort to complete the activity 2 The helper provides more than half the effort to complete the activity 1 Dependent. The helper does all the effort to complete an activity 7 Patient refused to complete or attempt activity 9 The patient did not perform the activity before the current illness or injury 88 Not attempted due to Medical conditions or safety concerns Weight Bearing Right Lower Extremity: Right Weight Bearing/Tolerated Left Lower Extremity: Left Weight Bearing/Tolerated Exercises Supine Ex: Ankle pumps, Quad Set, Heel Slides, Hip abd/add Supine Reps: 15 Treatments Pt completes Supine Ex in bed with several short rest breaks between Ex. Pt rests at end of tx with all needs met. Assessment Current Status: Fair Progress Pt tolerates tx but needs several rest breaks. PT Graduate Assistant Athletic Trainer Goals Retirement Goals PT Retirement Goals Time Frame: Jul 30, 2018 Transfers (B,C,W/C) (FIM): 6 Gait (FIM): 6 PT Plan Problem List Problem List: Activity Tolerance, Functional Strength, Safety, Balance, Gait, Transfer Treatment/Plan Treatment Plan: Continue Plan of Care Treatment Plan: Bed Mobility, Education, Functional Activity Carlos A, Functional Strength, Gait, Safety, Therapeutic Exercise, Transfers Treatment Duration: Jul 30, 2018 Frequency: 6 times per week Estimated Hrs Per Day: .5 hour per day Patient and/or Family Agrees t: Yes Safety Risks/Education Patient Education: Correct Positioning, Disease Process, Safety Issues Teaching Recipient: Patient Teaching Methods: Discussion Response to Teaching: Verbalize Understanding Time/GCodes Time In: 1500 Time Out: 1520 Total Billed Treatment Time: 20 Total Billed Treatment 1, EX (20m) G Codes Necessary: RAMANDEEP Callejas FINE ARTS PACKER Aug 04, 2018 16:03
[2018-08-04] MEDS: [UNRECOGNIZED DRUG - OTHER] IV SCH ×10 (16:32)
[2018-08-04] MEDS: SODIUM ACETATE IV SCH ×10 (16:32)
[2018-08-04] MEDS: POTASSIUM CHLORIDE IV SCH ×10 (16:32)
[2018-08-04] MEDS: 1/2 NS IV SOLUTION 1,000 ML IV SCH (17:16)
[2018-08-04] MEDS: SIMvastatin 20 MG (ZOCOR) TAB PO SCH (20:18)
[2018-08-04] MEDS: ESTROGEN ESTER PO SCH (20:21)
[2018-08-04] MEDS: TESTOSTERONE PO SCH (20:21)
[2018-08-05] VITALS (7 sets, daily range): BP systolic 127–158; BP diastolic 60–72
[2018-08-05] MEDS: oxyCODONE/APAP 5/325MG (PERCOCET 5) TABLET PO PRN ×4 (04:01→23:31)
[2018-08-05 04:51] LABS: HEMOGLOBIN 10.7 G/DL (11.5-16.0); MEAN PLATELET VOLUME 10.4 FL (7.4-10.4); RED BLOOD COUNT 3.81 10^6/uL (4.35-5.85); RED CELL DISTRIBUTION WIDTH 16.4 % (10.0-14.5); WHITE BLOOD COUNT 10.7 10^3/uL (4.3-11.0)
[2018-08-05 05:07] LABS: ALANINE AMINOTRANSFERASE 71 U/L (0-55); ALBUMIN 2.6 GM/DL (3.2-4.5); ALKALINE PHOSPHATASE 263 U/L (40-136); BILIRUBIN,TOTAL 1.8 MG/DL (0.1-1.0); BUN/CREATININE RATIO 23; CALCIUM 8.9 MG/DL (8.5-10.1); CARBON DIOXIDE 21 MMOL/L (21-32); CHLORIDE 110 MMOL/L (98-107); CREATININE SERUM 0.78 MG/DL (0.60-1.30); GFR ESTIMATED > 60; GLUCOSE 110 MG/DL (70-105); MAGNESIUM 2.2 MG/DL (1.8-2.4); SODIUM 136 MMOL/L (135-145); TRIGLYCERIDES 119 MG/DL (<150)
[2018-08-05] MEDS: MEROPENEM 500 MG in NS (IVPB) 100 ML IV SCH ×4 (05:12→23:32)
[2018-08-05] MEDS: METOCLOPRAMIDE INJ 10 MG/2 ML (REGLAN) IVP SCH ×4 (05:13→23:31)
[2018-08-05] MEDS: fentaNYL INJECTION 100 MCG/2 ML AMP IV PRN ×5 (05:48→23:31)
--- NOTE | 2018-08-05 09:09 | Diagnostic Imaging Report ---
PROCEDURE: CT abdomen and pelvis with contrast. TECHNIQUE: Multiple contiguous axial images were obtained through the abdomen and pelvis after administration of intravenous contrast. INDICATION: Intracutaneous fistula, possible abdominal abscess. Study is performed for followup. Correlation is made with recent CT from 07/29/2018. FINDINGS: Small bilateral pleural effusions with subjacent atelectasis is again noted. The liver is unremarkable. Gallbladder is surgically absent. Pancreas and spleen appear stable. No adrenal mass is seen. Kidneys are unremarkable. Aorta is non-aneurysmal. The overall bowel gas pattern has significantly improved since prior exam. There is significant reduction in the degree of distention of small bowel loops throughout the abdomen. Oral contrast does appear to pass through all small bowel loops to the ileorectal anastomosis with opacification of the rectum. No definite extravasated oral contrast is seen. There is an abdominal wound in the left lower quadrant at the site of previously noted left abdominal wall fluid collection. Fluid collection is no longer present. Midline abdominal wound remains. There is a small amount of residual fluid in the anterior abdomen just deep to the abdominal incision with portion of the fluid extending to the right just inferior to the right lobe of the liver. This, however, has significantly improved and decreased in size. Tiny amount of subcapsular fluid is noted along the posterior right liver edge, similar to perhaps decreased when compared with prior. The fluid adjacent to the spleen in the left upper quadrant and lateral to the greater curvature of the stomach has significantly decreased in size with small amount of fluid remaining. A large gas and fluid collection noted in the midline deep pelvis is no longer present. No new fluid collection is identified. The bladder is unremarkable. IMPRESSION: 1. Stable bilateral pleural effusions and bibasilar atelectasis. 2. Significant improved appearance to the abdomen and pelvis when compared with recent CT one week earlier. Large gas and air collection in the deep midline of the lower abdomen and pelvis has resolved. Additional fluid collections in the upper abdomen previously seen have significantly decreased in size. There has been improved appearance to the bowel gas pattern with no evidence of obstruction on today's study. No extravasation of ingested oral contrast from ileorectal anastomosis is seen. Dictated by: Dictated on workstation # [id number]
[2018-08-05] MEDS: LEVOTHYROXINE 100 MCG (LEVOTHROID) TAB PO SCH (09:27)
[2018-08-05] MEDS: KCL 10 MEQ TAB (MICRO K) PO SCH (09:27)
[2018-08-05] MEDS: OLMESARTAN 20 MG (BENICAR) TABLET PO SCH (09:27)
[2018-08-05] MEDS: FLUCONAZOLE 200 MG/100 ML 50 ML, EMPTY IV BAG (PVC) 1 EA IV SCH ×2 (09:28)
--- NOTE | 2018-08-05 11:52 | Physical Therapy Daily Note ---
PT Daily Note-Current Subjective Patient agrees to PT. Pain Numeric Pain Scale: 5-Moderate Pain Location: Lower Location Body Site: Abdomen Pain Description: Pressure Comment: nursing has issued pain medicaion Mental Status Patient Orientation: Normal For Age Attachments: IV Transfers Functional [place] Measure 0=Not Assessed/NA 4=Minimal Assistance 1=Total Assistance 5=Supervision or Setup 2=Maximal Assistance 6=Modified [place] 3=Moderate Assistance 7=Complete IndependenceIRFPAI Quality Coding Scale 6 Independent with activity with or without an assistive device 5 Patient requires set up or clean up by helper. Patient completes activity by themselves 4 Supervision or touching assist (CGA). [place] provide cues , steadying assist 3 The helper provides less than half the effort to complete the activity 2 The helper provides more than half the effort to complete the activity 1 Dependent. The helper does all the effort to complete an activity 7 Patient refused to complete or attempt activity 9 The patient did not perform the activity before the current illness or injury 88 Not attempted due to Medical conditions or safety concerns Transfers (B, C, W/C) (FIM): 6 Scootin Rollin Supine to/from Sit: 6 Sit to/from Stand: 6 Bed to/from Chair: 6 Weight Bearing Right Lower Extremity: Right Weight Bearing/Tolerated Left Lower Extremity: Left Weight Bearing/Tolerated Gait Training Gait (FIM): 6 Distance (FIM): 3=150 ft Distance: 300' Gait Level of Assist: 6 Gait Assistive Device: FWW slow, safe and functional Assessment Patient is up in recliner with needs met. Patient progressing with distance with ambulation. Continue to increase activity as tolerated by patient. PT Detention Goals Box Blank Machine Operator Helper Goals PT Box Blank Machine Operator Helper Goals Time Frame: Aug 14, 2018 Transfers (B,C,W/C) (FIM): 6 Gait (FIM): 6 PT Plan Treatment/Plan Treatment Plan: Continue Plan of Care Treatment Plan: Bed Mobility, Education, Functional Activity Carlos A, Functional Strength, Gait, Safety, Therapeutic Exercise, Transfers Treatment Duration: Aug 14, 2018 Frequency: 6 times per week Estimated Hrs Per Day: .5 hour per day Patient and/or Family Agrees t: Yes Time/GCodes Time In: 1130 Time Out: 1140 Total Billed Treatment Time: 10 Total Billed Treatment 1 visit FA 10 min JOSE CARUSO PT Aug 05, 2018 11:52
[2018-08-05] MEDS: ENOXAPARIN 40 MG/0.4 ML (LOVENOX) SYR SC SCH (14:33)
--- NOTE | 2018-08-05 14:33 | Progress Note-Standard ---
Standard Progress Note Progress Notes/Assess & Plan Date Seen by Provider: Aug 05, 2018 Time Seen by Provider: 12:40 Progress/Assessment & Plan Urine output improved with fluid bolus administration. Normotensive. Off vasopressors. Awake and comfortable. Encouraged using incentive spirometry. Electrolytes within normal limits. Due to the requirement to continue monitoring urine output, Reynolds catheter will be retained till tomorrow. Pain control better. Wound dry.Minimal NG output. Vitals stable.Could be transferred to the floor Passing flatus and has had bowel movements. Turbid exudate from the midline wound. Fascia intact. Would benefit from wound VAC placement. Left advance diet and use oral pain medications. Hypokalemia, being replaced. Wound VAC in satisfactory position, minimal output. Low grade fever, but, patient feels to be improving. Will continue to monitor Tearful due to abdominal pain. Wound VAC would be replaced and fascia reexamined. Low-grade fever last night. Developing intra-abdominal abscesses need to be considered and CT scan would be obtained, if fever continues beyond today. CT scan shows fluid collections in the pelvis and the left paracolic gutter, not mature enough to be considered abscesses. Dilated small bowel loops possibly an ileus and therefore nasogastric tube was placed. We will use TPN and administration antibiotics. Follow-up CT scan in 4-5 days and if the fluid collections measured to be abscesses, CT-guided drainage would be performed. Patient and the family updated. Ileorectal anastomosis intact. Purulent drainage from the colostomy site, opened up at the bedside. Wet-to- dry dressing at this point. With regard to the midline wound, the fascia is intact and there is some slough along the superior aspect. Wound care would be replaced. An antibiotics will be continued. CT scan would be repeated on Thursday: 03 August and at that is a likelihood of percutaneous drainage. CT scan confirms resolution of fluid collections with no extravasation of oral contrast. Dilated small bowel loops have resolved. Contrast is actually seen within the rectum, past the anastomosis. There does not appear to be any communication from the superficial abscess cavity over the left lower quadrant, to the peritoneal cavity. Clinically, she appears to be improving and the output from the fistula is very minimal. Therefore, IV antibiotics will be continued along with TPN. Her liver function is slightly deranged, possibly due to a combination of TPN- induced cholestasis and Diflucan. The latter would therefore be stopped. 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 Anemia of chronic disease, would benefit from transfusion. Pseudomonas and E.coli on cultures from the colostomy site abscess. Would switch to merepenem and stop zosyn. Low output entero-cutaneous fistula. In good spirits. LLQ abscess appears to be subcutaneous. Will repeat CT to rule our undrained abscesses/fluid collections. Final Diagnosis resolve sigmoid perforation. Enterocutaneous fistula. MACY TALAVERA MD Aug 05, 2018 14:33
[2018-08-05] MEDS ORDERED: [UNRECOGNIZED DRUG - OTHER] IV SCH ×10 (17:00)
[2018-08-05] MEDS ORDERED: SODIUM ACETATE IV SCH ×10 (17:00)
[2018-08-05] MEDS ORDERED: POTASSIUM CHLORIDE IV SCH ×10 (17:00)
[2018-08-05] MEDS: ESTROGEN ESTER PO SCH (20:13)
[2018-08-05] MEDS: TESTOSTERONE PO SCH (20:13)
[2018-08-05] MEDS: SIMvastatin 20 MG (ZOCOR) TAB PO SCH (20:13)
[2018-08-05] MEDS: 1/2 NS IV SOLUTION 1,000 ML IV SCH (23:35)
--- NOTE | 2018-08-05 23:43 | Progress Note (SOAP) ---
Subjective Subjective Date Seen by Provider: Aug 05, 2018 Time Seen by Provider: 06:45 Pt reports she feels a little better- a little improved- Her color is better- hgb 10 after 2 units. Pt is drinking her po contrast for her CT abdomen today. Review of Systems General: Fatigue HEENT: No Head Aches Pulmonary: No Dyspnea, No Cough Cardiovascular: No: Chest Pain Gastrointestinal: Abdominal Pain; No: Nausea Genitourinary: No Dysuria, No Frequency Musculoskeletal: No: neck pain, shoulder pain Neurological: Weakness Objective Exam Vital Signs Vital Signs Date Time Temp Pulse Resp B/P (MAP) Pulse Ox O2 Delivery O2 Flow Rate FiO2 08/05/18 22:23 98 Room Air 08/05/18 19:30 98 Room Air 08/05/18 19:05 98.3 76 16 139/66 (90) 98 Room Air 08/05/18 16:00 98.6 71 16 137/67 (90) 100 Room Air 08/05/18 11:36 99.6 79 20 148/69 (95) 98 Room Air 08/05/18 10:32 99 Room Air 08/05/18 07:53 99.2 73 18 137/72 (93) 99 Room Air 08/05/18 06:20 98 Room Air 08/05/18 04:28 99.4 73 16 148/65 (92) 100 Room Air 08/05/18 02:37 98 Room Air 08/05/18 00:04 98.8 78 16 127/60 (82) 99 Room Air I & O 08/05/18 07:00 Intake Total 3290 ml Output Total 3275 ml Balance 15 ml General Appearance: WD/WN, Mild Distress HEENT: PERRL/EOMI Neck: Full Range of Motion, Normal Inspection, Non Tender, Supple Respiratory: Chest Non Tender, No Accessory Muscle Use, No Respiratory Distress Cardiovascular: Regular Rate, Rhythm, No Murmur Gastrointestinal: Soft, Tenderness, Other (bag over abdominal opening) Rectal: Deferred Back: No CVA Tenderness Extremity: Normal Capillary Refill, Normal Range of Motion, Swelling (approx 1+ ) Neurologic/Psychiatric: Alert, Oriented x3 Skin: Other (Midline incision with large drainage appliance in place with liquid yellow-brown drainage. Left side previous colostomy site with continued purulent drainage. Tender to palpation.) Results Lab Laboratory Tests 08/05/18 04:22: White Blood Count 10.7, Red Blood Count 3.81L, Hemoglobin 10.7#L, Hematocrit 33L , Mean Corpuscular Volume 85, Mean Corpuscular Hemoglobin 28, Mean Corpuscular Hemoglobin Concent 33, Red Cell Distribution Width 16.4H, Platelet Count 464H, Mean Platelet Volume 10.4, Sodium Level 136, Potassium Level 5.0, Chloride Level 110H, Carbon Dioxide Level 21, Anion Gap 5, Blood Urea Nitrogen 18, Creatinine 0.78, Estimat Glomerular Filtration Rate > 60, BUN/Creatinine Ratio 23, Glucose Level 110H, Calcium Level 8.9, Corrected Calcium 10.0, Phosphorus Level 3.0, Magnesium Level 2.2, Total Bilirubin 1.8H, Aspartate Amino Transf ( AST/SGOT) 59H, Alanine Aminotransferase (ALT/SGPT) 71H, Alkaline Phosphatase 263H, Total Protein 6.0L, Albumin 2.6L, Triglycerides Level 119 08/05/18 17:15: Glucometer 114H Microbiology 07/30/18 Gram Stain - Final, Complete 07/30/18 Wound Culture - Final, Complete Pseudomonas aeruginosa Escherichia coli Assessment/Plan Assessment/Plan Admission Dx ostomy reversal Assessment and Plan 62 yo F s/p iliorectal anastomosis-07/21/18 Dr. Ng, Surgery. zosyn switched to meropenem 08/03/18 (F43.21) Adjustment disorder with depressed mood- stable- (I10) Essential (primary) hypertension- monitor blood pressure- on clonidine patch; stopped amlodipine as pt reports it makes her short of breath. (E03.9) Hypothyroidism- continue levothyroxine- will check tsh as an outpatient in 1-2 month. E87.6 hypokalemia- replacing prn -Intra-abdominal infection- on meropenem- for ecoli, pseudomonas. -enterocutaneous fistula- monitoring -anemia of chronic disease- transfusing 2 units pRBC 08/04/18 -protein calorie malnutrition - on TPN Dispo: monitoring closely. On TPN for nutrition. Doing better after the 2 units of pRBC- Awaiting CT abdomen results. She is slowly moving in the right direction. Problems: (1) Anemia Qualifiers: (2) Protein malnutrition Admission Dx ostomy reversal Clinical Quality Measures Admission Status Admission Dx ostomy reversal BATOOL MEJÍA MD Aug 05, 2018 23:43
[2018-08-06 04:00] VITALS: BP 137/73
[2018-08-06] MEDS: oxyCODONE/APAP 5/325MG (PERCOCET 5) TABLET PO PRN ×3 (05:27→20:01)
[2018-08-06] MEDS: LEVOTHYROXINE 100 MCG (LEVOTHROID) TAB PO SCH (05:27)
[2018-08-06] MEDS: METOCLOPRAMIDE INJ 10 MG/2 ML (REGLAN) IVP SCH ×4 (05:27→23:46)
[2018-08-06] MEDS: MEROPENEM 500 MG in NS (IVPB) 100 ML IV SCH ×4 (05:27→23:46)
[2018-08-06 08:00] VITALS: BP 147/65
--- NOTE | 2018-08-06 09:05 | Progress Note (SOAP) ---
Subjective Subjective Date Seen by Provider: Aug 06, 2018 Time Seen by Provider: 08:30 Pt reports she feels a little better- a little improved- No overnight events. Desires to go home. Understandably a little down in mood. CT of abdomen improved. Temp still in high 98, 99sF Review of Systems General: Fatigue HEENT: No Head Aches Pulmonary: No Dyspnea, No Cough Cardiovascular: No: Chest Pain Gastrointestinal: Abdominal Pain; No: Nausea Genitourinary: No Dysuria, No Frequency Musculoskeletal: No: neck pain, shoulder pain Neurological: Weakness Objective Exam Vital Signs Vital Signs Date Time Temp Pulse Resp B/P (MAP) Pulse Ox O2 Delivery O2 Flow Rate FiO2 08/06/18 04:00 99.7 75 18 137/73 (94) 98 Room Air 08/06/18 02:52 97 Room Air 08/05/18 23:46 99.6 79 18 158/68 (98) 98 Room Air 08/05/18 22:23 98 Room Air 08/05/18 19:30 98 Room Air 08/05/18 19:05 98.3 76 16 139/66 (90) 98 Room Air 08/05/18 16:00 98.6 71 16 137/67 (90) 100 Room Air 08/05/18 11:36 99.6 79 20 148/69 (95) 98 Room Air 08/05/18 10:32 99 Room Air I & O 08/06/18 07:00 Intake Total 990 ml Output Total 2515 ml Balance -1525 ml General Appearance: WD/WN, Mild Distress HEENT: PERRL/EOMI Neck: Full Range of Motion, Normal Inspection, Non Tender, Supple Respiratory: Chest Non Tender, No Accessory Muscle Use, No Respiratory Distress Cardiovascular: Regular Rate, Rhythm, No Murmur Gastrointestinal: Soft, Tenderness, Other (bag over abdominal opening) Rectal: Deferred Back: No CVA Tenderness Extremity: Normal Capillary Refill, Normal Range of Motion, Swelling (approx 1+ ) Neurologic/Psychiatric: Alert, Oriented x3 Skin: Other (Midline incision with large drainage appliance in place with liquid yellow-brown drainage. Left side previous colostomy site with continued purulent drainage. Tender to palpation.) Results Lab Laboratory Tests 08/05/18 17:15: Glucometer 114H 08/06/18 05:17: Glucometer 123H Microbiology 07/30/18 Gram Stain - Final, Complete 07/30/18 Wound Culture - Final, Complete Pseudomonas aeruginosa Escherichia coli Assessment/Plan Assessment/Plan Admission Dx ostomy reversal Assessment and Plan 62 yo F s/p iliorectal anastomosis-07/21/18 Dr. Ng, Surgery. zosyn switched to meropenem on 08/03/18 (F43.21) Adjustment disorder with depressed mood- doing alright (I10) Essential (primary) hypertension- monitor blood pressure- on clonidine patch; stopped amlodipine as pt reports it makes her short of breath. (E03.9) Hypothyroidism- continue levothyroxine- will check tsh as an outpatient in 1-2 month. E87.6 hypokalemia- replacing prn -Intra-abdominal infection- on meropenem- for ecoli, pseudomonas. -enterocutaneous fistula- monitoring -anemia of chronic disease- transfused 2 units pRBC 08/04/18 -protein calorie malnutrition - on TPN Dispo: monitoring closely. On TPN for nutrition. Doing better after the 2 units of pRBC- She is slowly moving in the right direction. CT abdomen improved. AM labs pending- po potassium held. Problems: (1) Anemia Qualifiers: (2) Protein malnutrition Admission Dx ostomy reversal Clinical Quality Measures Admission Status Admission Dx ostomy reversal BATOOL MEJÍA MD Aug 06, 2018 09:05
[2018-08-06] MEDS: OLMESARTAN 20 MG (BENICAR) TABLET PO SCH (09:15)
[2018-08-06 09:18] LABS: BASOPHILS # (AUTO) 0.1 10^3/uL (0.0-0.1); BASOPHILS % (AUTO) 1 % (0-10); EOSINOPHILS # (AUTO) 0.3 10^3/uL (0.0-0.3); EOSINOPHILS % (AUTO) 2 % (0-10); HEMATOCRIT 27 % (35-52); HEMOGLOBIN 9.1 G/DL (11.5-16.0); LYMPHOCYTES # (AUTO) 1.6 X 10^3 (1.0-4.0); LYMPHOCYTES % (AUTO) 16 % (12-44); MEAN CORPUSCULAR HEMOGLOBIN 29 PG (25-34); MEAN CORPUSCULAR HGB CONC 33 G/DL (32-36); MEAN CORPUSCULAR VOLUME 86 FL (80-99); MONOCYTES % (AUTO) 9 % (0-12); NEUTROPHILS # (AUTO) 7.4 X 10^3 (1.8-7.8); NEUTROPHILS % (AUTO) 72 % (42-75); PLATELET COUNT 431 10^3/uL (130-400); RED BLOOD COUNT 3.17 10^6/uL (4.35-5.85); WHITE BLOOD COUNT 10.3 10^3/uL (4.3-11.0)
[2018-08-06 09:35] LABS: ALANINE AMINOTRANSFERASE 61 U/L (0-55); ALBUMIN 2.4 GM/DL (3.2-4.5); ALKALINE PHOSPHATASE 235 U/L (40-136); BILIRUBIN,TOTAL 0.7 MG/DL (0.1-1.0); BUN/CREATININE RATIO 27; CALCIUM 8.8 MG/DL (8.5-10.1); CARBON DIOXIDE 19 MMOL/L (21-32); CHLORIDE 109 MMOL/L (98-107); GFR ESTIMATED > 60; GLUCOSE 124 MG/DL (70-105); POTASSIUM 4.7 MMOL/L (3.6-5.0); SODIUM 133 MMOL/L (135-145); TOTAL PROTEIN 5.3 GM/DL (6.4-8.2)
[2018-08-06 09:39] VITALS: BP 147/65
[2018-08-06] MEDS: fentaNYL INJECTION 100 MCG/2 ML AMP IV PRN ×2 (12:51→21:54)
[2018-08-06] MEDS: ENOXAPARIN 40 MG/0.4 ML (LOVENOX) SYR SC SCH (13:32)
--- NOTE | 2018-08-06 14:06 | Physical Therapy Daily Note ---
PT Daily Note-Current Subjective Patient requests commode use. Agrees to PT. Pain Numeric Pain Scale: 5-Moderate Pain Location: Lower Location Body Site: Abdomen Pain Description: Pressure, Chronic Mental Status Patient Orientation: Normal For Age Attachments: IV Transfers Functional [place]man Measure 0=Not Assessed/NA 4=Minimal Assistance 1=Total Assistance 5=Supervision or Setup 2=Maximal Assistance 6=Modified [place] 3=Moderate Assistance 7=Complete IndependenceIRFPAI Quality Coding Scale 6 Independent with activity with or without an assistive device 5 Patient requires set up or clean up by helper. Patient completes activity by themselves 4 Supervision or touching assist (CGA). Bristow provide cues , steadying assist 3 The helper provides less than half the effort to complete the activity 2 The helper provides more than half the effort to complete the activity 1 Dependent. The helper does all the effort to complete an activity 7 Patient refused to complete or attempt activity 9 The patient did not perform the activity before the current illness or injury 88 Not attempted due to Medical conditions or safety concerns Transfers (B, C, W/C) (FIM): 5 Scootin Rollin Supine to/from Sit: 5 Sit to/from Stand: 5 transfer SBA with assist to lower depends. Weight Bearing Right Lower Extremity: Right Weight Bearing/Tolerated Left Lower Extremity: Left Weight Bearing/Tolerated Assessment Patient returned to bed due to leakage of abdominal wound. PT to increase activity as tolerated by patient. PT Longterm Goals Turret Punch Press Operator Goals PT Turret Punch Press Operator Goals Time Frame: Aug 14, 2018 Transfers (B,C,W/C) (FIM): 6 Gait (FIM): 6 PT Plan Treatment/Plan Treatment Plan: Continue Plan of Care Treatment Plan: Bed Mobility, Education, Functional Activity Carlos A, Functional Strength, Gait, Safety, Therapeutic Exercise, Transfers Treatment Duration: Aug 14, 2018 Frequency: 6 times per week Estimated Hrs Per Day: .5 hour per day Patient and/or Family Agrees t: Yes Time/GCodes Time In: 1140 Time Out: 1150 Total Billed Treatment Time: 10 Total Billed Treatment 1 visit FA 10 min JOSE CARUSO PT Aug 06, 2018 14:06
--- NOTE | 2018-08-06 16:18 | Progress Note-Standard ---
Standard Progress Note Progress Notes/Assess & Plan Date Seen by Provider: Aug 06, 2018 Time Seen by Provider: 16:17 Progress/Assessment & Plan Urine output improved with fluid bolus administration. Normotensive. Off vasopressors. Awake and comfortable. Encouraged using incentive spirometry. Electrolytes within normal limits. Due to the requirement to continue monitoring urine output, Reynolds catheter will be retained till tomorrow. Pain control better. Wound dry.Minimal NG output. Vitals stable.Could be transferred to the floor Passing flatus and has had bowel movements. Turbid exudate from the midline wound. Fascia intact. Would benefit from wound VAC placement. Left advance diet and use oral pain medications. Hypokalemia, being replaced. Wound VAC in satisfactory position, minimal output. Low grade fever, but, patient feels to be improving. Will continue to monitor Tearful due to abdominal pain. Wound VAC would be replaced and fascia reexamined. Low-grade fever last night. Developing intra-abdominal abscesses need to be considered and CT scan would be obtained, if fever continues beyond today. CT scan shows fluid collections in the pelvis and the left paracolic gutter, not mature enough to be considered abscesses. Dilated small bowel loops possibly an ileus and therefore nasogastric tube was placed. We will use TPN and administration antibiotics. Follow-up CT scan in 4-5 days and if the fluid collections measured to be abscesses, CT-guided drainage would be performed. Patient and the family updated. Ileorectal anastomosis intact. Purulent drainage from the colostomy site, opened up at the bedside. Wet-to- dry dressing at this point. With regard to the midline wound, the fascia is intact and there is some slough along the superior aspect. Wound care would be replaced. An antibiotics will be continued. CT scan would be repeated on Thursday: 03 August and at that is a likelihood of percutaneous drainage. CT scan confirms resolution of fluid collections with no extravasation of oral contrast. Dilated small bowel loops have resolved. Contrast is actually seen within the rectum, past the anastomosis. There does not appear to be any communication from the superficial abscess cavity over the left lower quadrant, to the peritoneal cavity. Clinically, she appears to be improving and the output from the fistula is very minimal. Therefore, IV antibiotics will be continued along with TPN. Her liver function is slightly deranged, possibly due to a combination of TPN- induced cholestasis and Diflucan. The latter would therefore be stopped. 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 Anemia of chronic disease, would benefit from transfusion. Pseudomonas and E.coli on cultures from the colostomy site abscess. Would switch to merepenem and stop zosyn. Low output entero-cutaneous fistula. In good spirits. LLQ abscess appears to be subcutaneous. Will repeat CT to rule our undrained abscesses/fluid collections. Improving. LFTs declining. Continue TPN and IV antibiotics Final Diagnosis Enterocutaneous fistula MACY TALAVERA MD Aug 06, 2018 16:18
[2018-08-06 16:45] VITALS: BP 153/66
[2018-08-06] MEDS: POTASSIUM ACETATE IV SCH ×10 (17:38)
[2018-08-06] MEDS: [UNRECOGNIZED DRUG - OTHER] IV SCH ×10 (17:38)
[2018-08-06] MEDS: SODIUM PHOSPHATE IV SCH ×10 (17:38)
[2018-08-06] MEDS: SODIUM ACETATE IV SCH ×10 (17:38)
[2018-08-06 19:44] VITALS: BP 139/63
[2018-08-06] MEDS: TESTOSTERONE PO SCH (20:00)
[2018-08-06] MEDS: ESTROGEN ESTER PO SCH (20:00)
[2018-08-06] MEDS: SIMvastatin 20 MG (ZOCOR) TAB PO SCH (20:01)
[2018-08-07] VITALS: BP 153/68
[2018-08-07] MEDS: oxyCODONE/APAP 5/325MG (PERCOCET 5) TABLET PO PRN ×4 (03:45→20:39)
[2018-08-07] MEDS: fentaNYL INJECTION 100 MCG/2 ML AMP IV PRN ×2 (03:46→11:11)
[2018-08-07 04:00] VITALS: BP 142/65
[2018-08-07] MEDS: 1/2 NS IV SOLUTION 1,000 ML IV SCH ×2 (04:39→17:23)
[2018-08-07] MEDS: LEVOTHYROXINE 100 MCG (LEVOTHROID) TAB PO SCH (05:18)
[2018-08-07] MEDS: MEROPENEM 500 MG in NS (IVPB) 100 ML IV SCH ×3 (05:18→18:33)
[2018-08-07] MEDS: METOCLOPRAMIDE INJ 10 MG/2 ML (REGLAN) IVP SCH ×3 (05:18→18:33)
[2018-08-07 08:00] VITALS: BP 148/66
--- NOTE | 2018-08-07 09:28 | Physical Therapy Progress Note ---
Therapy Progress Note Patient declined secondary to pain and fatigue. Patient reports she will be up with family later today. 1 ref JOSE CARUSO PT Aug 07, 2018 09:28
--- NOTE | 2018-08-07 09:47 | Progress Note-Hospitalist ---
ТАТЬЯНА MONTES DE OCA MEDICAL STUDENT 08/07/18 0947: Subjective HPI/CC On Admission Date Seen by Provider: Aug 07, 2018 Time Seen by Provider: 08:15 Subjective/Events-last exam Pt had no acute events overnight. Enterocutaneous fistula output declining, per patient. Pain is under control with PO pain medications. Having BMs. Patient aware of plan to get CT next week and discharge pending findings. Pt has no concerns at this time. Focused Exam Respiratory: Chest Non Tender, Lungs Clear Cardiovascular: Regular Rate, Rhythm Objective Exam Vital Signs Vital Signs Date Time Temp Pulse Resp B/P (MAP) Pulse Ox O2 Delivery O2 Flow Rate FiO2 08/07/18 08:00 98.4 73 18 148/66 (93) 98 Room Air Capillary Refill : Gastrointestinal: Abnormal Bowel Sounds (Hypoactive) Extremity: Pedal Edema (3+ peripheral edema) Results/Procedures Lab Patient resulted labs reviewed. Assessment/Plan Assessment and Plan Assess & Plan/Chief Complaint 62 yo F admitted for colostomy reversal complicated by post-op ileus, wound infection, enterocutaneous fistula, anemia of chronic disease, and protein calorie malnutrition on TPN now clinically improving. Wound Infection -On Meropenem -CT to be repeated this week to evaluate for abscess Protein calorie malnutrition -Continue TPN Anemia -Will continue to monitor H&H, and transfuse as needed. DAVY ROME DO 08/07/18 1431: Subjective HPI/CC On Admission Time Seen by Provider: 11:00 Subjective/Events-last exam Labs from yesterday were stable so will check tomorrow considering blood transfusions recently Crackles in lungs noted so will initiate Nebs and IS Pt denies cough Does not use IS as instructed she admits Review of Systems General: Fatigue Gastrointestinal: Abdominal Pain Objective Exam General Appearance: No Apparent Distress, WD/WN, Chronically ill Respiratory: Crackles (bases subtle), Decreased Breath Sounds Cardiovascular: Regular Rate, Rhythm, No Edema, No Gallop, No JVD, No Murmur, Normal Peripheral Pulses Neurologic/Psychiatric: Alert, Oriented x3, No Motor/Sensory Deficits, Normal Mood/Affect Assessment/Plan Assessment and Plan Assess & Plan/Chief Complaint Crackles on exam so will order Nebs and increase IS use Check labs in am Monitor closely Diagnosis/Problems Diagnosis/Problems (1) Bibasilar crackles Status: Acute (2) Weakness Status: Acute (3) REVERSAL OF COLOSTOMY Status: Acute (4) Protein malnutrition Status: Acute (5) Anemia Status: Chronic Qualifiers: Other causes of anemia: chronic disease, other ТАТЬЯНА MONTES DE [employer] MEDICAL STUDENT Aug 07, 2018 09:47 DAVY ROME DO Aug 07, 2018 14:31
[2018-08-07] MEDS: OLMESARTAN 20 MG (BENICAR) TABLET PO SCH (10:10)
--- NOTE | 2018-08-07 11:35 | Progress Note-Standard ---
Standard Progress Note Progress Notes/Assess & Plan Date Seen by Provider: Aug 07, 2018 Time Seen by Provider: 10:05 Progress/Assessment & Plan Urine output improved with fluid bolus administration. Normotensive. Off vasopressors. Awake and comfortable. Encouraged using incentive spirometry. Electrolytes within normal limits. Due to the requirement to continue monitoring urine output, Reynolds catheter will be retained till tomorrow. Pain control better. Wound dry.Minimal NG output. Vitals stable.Could be transferred to the floor Passing flatus and has had bowel movements. Turbid exudate from the midline wound. Fascia intact. Would benefit from wound VAC placement. Left advance diet and use oral pain medications. Hypokalemia, being replaced. Wound VAC in satisfactory position, minimal output. Low grade fever, but, patient feels to be improving. Will continue to monitor Tearful due to abdominal pain. Wound VAC would be replaced and fascia reexamined. Low-grade fever last night. Developing intra-abdominal abscesses need to be considered and CT scan would be obtained, if fever continues beyond today. CT scan shows fluid collections in the pelvis and the left paracolic gutter, not mature enough to be considered abscesses. Dilated small bowel loops possibly an ileus and therefore nasogastric tube was placed. We will use TPN and administration antibiotics. Follow-up CT scan in 4-5 days and if the fluid collections measured to be abscesses, CT-guided drainage would be performed. Patient and the family updated. Ileorectal anastomosis intact. Purulent drainage from the colostomy site, opened up at the bedside. Wet-to- dry dressing at this point. With regard to the midline wound, the fascia is intact and there is some slough along the superior aspect. Wound care would be replaced. An antibiotics will be continued. CT scan would be repeated on Thursday: 03 August and at that is a likelihood of percutaneous drainage. CT scan confirms resolution of fluid collections with no extravasation of oral contrast. Dilated small bowel loops have resolved. Contrast is actually seen within the rectum, past the anastomosis. There does not appear to be any communication from the superficial abscess cavity over the left lower quadrant, to the peritoneal cavity. Clinically, she appears to be improving and the output from the fistula is very minimal. Therefore, IV antibiotics will be continued along with TPN. Her liver function is slightly deranged, possibly due to a combination of TPN- induced cholestasis and Diflucan. The latter would therefore be stopped. 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 Anemia of chronic disease, would benefit from transfusion. Pseudomonas and E.coli on cultures from the colostomy site abscess. Would switch to merepenem and stop zosyn. Low output entero-cutaneous fistula. In good spirits. LLQ abscess appears to be subcutaneous. Will repeat CT to rule our undrained abscesses/fluid collections. Improving. LFTs declining. Continue TPN and IV antibiotics continues to improve. Minimal output from the fistula. Final Diagnosis enterocutaneous fistula. Abscess at the colostomy site MACY TALAVERA MD Aug 07, 2018 11:35
[2018-08-07 12:00] VITALS: BP 164/72
[2018-08-07] MEDS: ENOXAPARIN 40 MG/0.4 ML (LOVENOX) SYR SC SCH (14:44)
[2018-08-07] MEDS: RT-ALBUTEROL SULF 2.5 MG/3 ML PRE-MIX VIAL INH SCH ×2 (15:01→20:36)
[2018-08-07 16:37] VITALS: BP 138/65
[2018-08-07] MEDS: SODIUM PHOSPHATE IV SCH ×10 (17:28)
[2018-08-07] MEDS: [UNRECOGNIZED DRUG - OTHER] IV SCH ×10 (17:28)
[2018-08-07] MEDS: SODIUM ACETATE IV SCH ×10 (17:28)
[2018-08-07] MEDS: POTASSIUM ACETATE IV SCH ×10 (17:28)
[2018-08-07 20:19] VITALS: BP 155/70
[2018-08-07] MEDS: TESTOSTERONE PO SCH (20:38)
[2018-08-07] MEDS: SIMvastatin 20 MG (ZOCOR) TAB PO SCH (20:38)
[2018-08-07] MEDS: ESTROGEN ESTER PO SCH (20:38)
[2018-08-08] VITALS: BP 154/70
[2018-08-08] MEDS: METOCLOPRAMIDE INJ 10 MG/2 ML (REGLAN) IVP SCH ×4 (00:01→18:12)
[2018-08-08] MEDS: MEROPENEM 500 MG in NS (IVPB) 100 ML IV SCH ×4 (00:01→18:12)
[2018-08-08] MEDS: fentaNYL INJECTION 100 MCG/2 ML AMP IV PRN ×4 (03:15→19:00)
[2018-08-08] MEDS: oxyCODONE/APAP 5/325MG (PERCOCET 5) TABLET PO PRN ×3 (03:16→21:25)
[2018-08-08 04:00] VITALS: BP 138/63
[2018-08-08] MEDS: LEVOTHYROXINE 100 MCG (LEVOTHROID) TAB PO SCH (05:11)
[2018-08-08 06:28] LABS: BASOPHILS % (AUTO) 0 % (0-10); EOSINOPHILS # (AUTO) 0.2 10^3/uL (0.0-0.3); EOSINOPHILS % (AUTO) 2 % (0-10); HEMATOCRIT 26 % (35-52); HEMOGLOBIN 8.5 G/DL (11.5-16.0); LYMPHOCYTES # (AUTO) 1.4 X 10^3 (1.0-4.0); LYMPHOCYTES % (AUTO) 13 % (12-44); MEAN CORPUSCULAR HEMOGLOBIN 28 PG (25-34); MEAN CORPUSCULAR HGB CONC 32 G/DL (32-36); MEAN CORPUSCULAR VOLUME 88 FL (80-99); MEAN PLATELET VOLUME 10.3 FL (7.4-10.4); MONOCYTES # (AUTO) 0.8 X 10^3 (0.0-1.0); MONOCYTES % (AUTO) 7 % (0-12); NEUTROPHILS # (AUTO) 8.5 X 10^3 (1.8-7.8); NEUTROPHILS % (AUTO) 78 % (42-75); PLATELET COUNT 432 10^3/uL (130-400); RED BLOOD COUNT 2.99 10^6/uL (4.35-5.85); RED CELL DISTRIBUTION WIDTH 15.1 % (10.0-14.5); WHITE BLOOD COUNT 10.9 10^3/uL (4.3-11.0)
[2018-08-08 06:47] LABS: ALANINE AMINOTRANSFERASE 53 U/L (0-55); ALBUMIN 2.3 GM/DL (3.2-4.5); ALKALINE PHOSPHATASE 259 U/L (40-136); BILIRUBIN,TOTAL 0.5 MG/DL (0.1-1.0); BUN/CREATININE RATIO 29; CALCIUM 8.5 MG/DL (8.5-10.1); CARBON DIOXIDE 22 MMOL/L (21-32); CHLORIDE 108 MMOL/L (98-107); CREATININE SERUM 0.68 MG/DL (0.60-1.30); GFR ESTIMATED > 60; GLUCOSE 125 MG/DL (70-105); POTASSIUM 3.7 MMOL/L (3.6-5.0); SODIUM 138 MMOL/L (135-145); TOTAL PROTEIN 5.5 GM/DL (6.4-8.2)
[2018-08-08] MEDS: RT-ALBUTEROL SULF 2.5 MG/3 ML PRE-MIX VIAL INH SCH ×2 (07:02→14:20)
[2018-08-08 08:00] VITALS: BP 142/58
[2018-08-08] MEDS: OLMESARTAN 20 MG (BENICAR) TABLET PO SCH (08:19)
[2018-08-08] MEDS: 1/2 NS IV SOLUTION 1,000 ML IV SCH (08:45)
--- NOTE | 2018-08-08 09:18 | Progress Note-Hospitalist ---
ТАТЬЯНА MONTES DE OCA MEDICAL STUDENT 08/08/18 0918: Subjective HPI/CC On Admission Date Seen by Provider: Aug 08, 2018 Time Seen by Provider: 08:10 Subjective/Events-last exam Pt had no acute events overnight. Reports 6/10 abdominal pain today, left side > right side. This is not new. She is having regular BMs, last one being yesterday. Still having some output through colostomy site. Urinating without difficulty. Ambulating regularly. She is using her incentive spirometer and receiving breathing treatments. Focused Exam Respiratory: Chest Non Tender, No Accessory Muscle Use, Crackles Cardiovascular: Regular Rate, Rhythm Skin: normal color, warm/dry Objective Exam Vital Signs Vital Signs Date Time Temp Pulse Resp B/P (MAP) Pulse Ox O2 Delivery O2 Flow Rate FiO2 08/08/18 07:41 Room Air 08/08/18 07:01 97 08/08/18 04:00 99.1 70 18 138/63 (88) Capillary Refill : Results/Procedures Lab Laboratory Tests 08/08/18 06:10 Patient resulted labs reviewed. Assessment/Plan Assessment and Plan Assess & Plan/Chief Complaint 62 yo F admitted for colostomy reversal complicated by post-op ileus, wound infection, enterocutaneous fistula, anemia of chronic disease, and protein calorie malnutrition on TPN now clinically improving. Wound Infection -On Meropenem -CT to be repeated this week to evaluate for abscess Protein calorie malnutrition -Continue TPN Anemia -Hgb trending down. Will continue to monitor H&H, and transfuse as needed. Atelectasis/Crackles on Exam -Monitoring for fever -Encouraging IS use and receiving breathing treatments DAVY ROME DO 08/08/18 1206: Subjective HPI/CC On Admission Time Seen by Provider: 11:00 Subjective/Events-last exam Patient doing well overall Hgb decreased a bit from acute illness on chronic illness Pain is controlled Could not tolerated Nebs due to side effects in the past Lungs are improved with IS use Review of Systems General: Fatigue Gastrointestinal: Abdominal Pain Objective Exam General Appearance: No Apparent Distress, WD/WN, Chronically ill, Thin Respiratory: Chest Non Tender, Lungs Clear, Normal Breath Sounds, No Accessory Muscle Use, No Respiratory Distress, Decreased Breath Sounds Cardiovascular: Regular Rate, Rhythm, No Edema, No Gallop, No JVD, No Murmur, Normal Peripheral Pulses Neurologic/Psychiatric: Alert, Oriented x3, No Motor/Sensory Deficits, Normal Mood/Affect Skin: Normal Color, Warm/Dry Assessment/Plan Assessment and Plan Assess & Plan/Chief Complaint Continue IS Abx as ordered OOB as tolerated Diagnosis/Problems Diagnosis/Problems (1) Bibasilar crackles Status: Resolved (2) Weakness Status: Acute (3) Protein malnutrition Status: Acute (4) Anemia Status: Chronic Qualifiers: Other causes of anemia: chronic disease, other (5) REVERSAL OF COLOSTOMY Status: Acute ТАТЬЯНА MONTES DE O[facility] MEDICAL STUDENT Aug 08, 2018 09:18 DAVY ROME DO Aug 08, 2018 12:06
--- NOTE | 2018-08-08 11:12 | Progress Note-Standard ---
Standard Progress Note Progress Notes/Assess & Plan Date Seen by Provider: Aug 08, 2018 Time Seen by Provider: 11:12 Progress/Assessment & Plan Urine output improved with fluid bolus administration. Normotensive. Off vasopressors. Awake and comfortable. Encouraged using incentive spirometry. Electrolytes within normal limits. Due to the requirement to continue monitoring urine output, Reynolds catheter will be retained till tomorrow. Pain control better. Wound dry.Minimal NG output. Vitals stable.Could be transferred to the floor Passing flatus and has had bowel movements. Turbid exudate from the midline wound. Fascia intact. Would benefit from wound VAC placement. Left advance diet and use oral pain medications. Hypokalemia, being replaced. Wound VAC in satisfactory position, minimal output. Low grade fever, but, patient feels to be improving. Will continue to monitor Tearful due to abdominal pain. Wound VAC would be replaced and fascia reexamined. Low-grade fever last night. Developing intra-abdominal abscesses need to be considered and CT scan would be obtained, if fever continues beyond today. CT scan shows fluid collections in the pelvis and the left paracolic gutter, not mature enough to be considered abscesses. Dilated small bowel loops possibly an ileus and therefore nasogastric tube was placed. We will use TPN and administration antibiotics. Follow-up CT scan in 4-5 days and if the fluid collections measured to be abscesses, CT-guided drainage would be performed. Patient and the family updated. Ileorectal anastomosis intact. Purulent drainage from the colostomy site, opened up at the bedside. Wet-to- dry dressing at this point. With regard to the midline wound, the fascia is intact and there is some slough along the superior aspect. Wound care would be replaced. An antibiotics will be continued. CT scan would be repeated on Thursday: 03 August and at that is a likelihood of percutaneous drainage. CT scan confirms resolution of fluid collections with no extravasation of oral contrast. Dilated small bowel loops have resolved. Contrast is actually seen within the rectum, past the anastomosis. There does not appear to be any communication from the superficial abscess cavity over the left lower quadrant, to the peritoneal cavity. Clinically, she appears to be improving and the output from the fistula is very minimal. Therefore, IV antibiotics will be continued along with TPN. Her liver function is slightly deranged, possibly due to a combination of TPN- induced cholestasis and Diflucan. The latter would therefore be stopped. 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 Anemia of chronic disease, would benefit from transfusion. Pseudomonas and E.coli on cultures from the colostomy site abscess. Would switch to merepenem and stop zosyn. Low output entero-cutaneous fistula. In good spirits. LLQ abscess appears to be subcutaneous. Will repeat CT to rule our undrained abscesses/fluid collections. Improving. LFTs declining. Continue TPN and IV antibiotics continues to improve. Minimal output from the fistula. output from the fistula appears to be purulent rather than enteric in nature. Vital signs stable hemoglobin 8.5. In good spirits. Plan on home TPN during the week. Final Diagnosis enterocutaneous fistula. MACY TALAVERA MD Aug 08, 2018 11:12
[2018-08-08 12:00] VITALS: BP 139/61
[2018-08-08] MEDS: ENOXAPARIN 40 MG/0.4 ML (LOVENOX) SYR SC SCH (14:52)
[2018-08-08 16:52] VITALS: BP 146/67
[2018-08-08] MEDS: POTASSIUM ACETATE IV SCH ×10 (17:07)
[2018-08-08] MEDS: [UNRECOGNIZED DRUG - OTHER] IV SCH ×10 (17:07)
[2018-08-08] MEDS: SODIUM PHOSPHATE IV SCH ×10 (17:07)
[2018-08-08] MEDS: SODIUM ACETATE IV SCH ×10 (17:07)
[2018-08-08] MEDS: ACETAMINOPHEN 325 MG TABLET PO PRN (19:08)
[2018-08-08 20:00] VITALS: BP 163/69
[2018-08-08] MEDS: SIMvastatin 20 MG (ZOCOR) TAB PO SCH (21:16)
[2018-08-08] MEDS: TESTOSTERONE PO SCH (21:16)
[2018-08-08] MEDS: ESTROGEN ESTER PO SCH (21:16)
[2018-08-09] VITALS: BP 156/70
[2018-08-09] MEDS: METOCLOPRAMIDE INJ 10 MG/2 ML (REGLAN) IVP SCH ×4 (00:50→18:50)
[2018-08-09] MEDS: MEROPENEM 500 MG in NS (IVPB) 100 ML IV SCH ×4 (00:51→18:50)
[2018-08-09 04:00] VITALS: BP 158/70
[2018-08-09] MEDS: oxyCODONE/APAP 5/325MG (PERCOCET 5) TABLET PO PRN ×3 (05:28→18:50)
[2018-08-09] MEDS: LEVOTHYROXINE 100 MCG (LEVOTHROID) TAB PO SCH (05:57)
[2018-08-09] MEDS: RT-ALBUTEROL SULF 2.5 MG/3 ML PRE-MIX VIAL INH SCH ×3 (07:29→21:04)
[2018-08-09 08:00] VITALS: BP 136/63
[2018-08-09] MEDS: OLMESARTAN 20 MG (BENICAR) TABLET PO SCH (09:16)
[2018-08-09] MEDS: cloNIDine 0.2 MG PATCH (CATAPRES TTS) TDSY TD SCH (09:16)
--- NOTE | 2018-08-09 11:03 | Physical Therapy Daily Note ---
PT Daily Note-Current Subjective Patient agrees to PT. Pain Numeric Pain Scale: 5-Moderate Pain Location: Lower Location Body Site: Abdomen Pain Description: Pressure, Chronic Mental Status Patient Orientation: Normal For Age Attachments: IV Transfers Functional [place] Measure 0=Not Assessed/NA 4=Minimal Assistance 1=Total Assistance 5=Supervision or Setup 2=Maximal Assistance 6=Modified [place] 3=Moderate Assistance 7=Complete IndependenceIRFPAI Quality Coding Scale 6 Independent with activity with or without an assistive device 5 Patient requires set up or clean up by helper. Patient completes activity by themselves 4 Supervision or touching assist (CGA). [place] provide cues , steadying assist 3 The helper provides less than half the effort to complete the activity 2 The helper provides more than half the effort to complete the activity 1 Dependent. The helper does all the effort to complete an activity 7 Patient refused to complete or attempt activity 9 The patient did not perform the activity before the current illness or injury 88 Not attempted due to Medical conditions or safety concerns Transfers (B, C, W/C) (FIM): 6 Scootin Rollin Supine to/from Sit: 6 Sit to/from Stand: 6 Weight Bearing Right Lower Extremity: Right Weight Bearing/Tolerated Left Lower Extremity: Left Weight Bearing/Tolerated Gait Training Gait (FIM): 6 Distance (FIM): 3=150 ft Distance: 400' Gait Level of Assist: 6 Gait Assistive Device: FWW safe and steady Assessment Patient is much improved with distance and is motived to return to home this week. PT Halfway Goals Halfway Goals PT Halfway Goals Time Frame: Aug 14, 2018 Transfers (B,C,W/C) (FIM): 6 Gait (FIM): 6 PT Plan Treatment/Plan Treatment Plan: Continue Plan of Care Treatment Plan: Bed Mobility, Education, Functional Activity Carlos A, Functional Strength, Gait, Safety, Therapeutic Exercise, Transfers Treatment Duration: Aug 14, 2018 Frequency: 6 times per week Estimated Hrs Per Day: .5 hour per day Patient and/or Family Agrees t: Yes Time/GCodes Time In: 1003 Time Out: 1015 Total Billed Treatment Time: 12 Total Billed Treatment 1 visit FA 12 min JOSE CARUSO PT Aug 09, 2018 11:02
[2018-08-09] MEDS: fentaNYL INJECTION 100 MCG/2 ML AMP IV PRN ×2 (12:23→15:19)
[2018-08-09] MEDS: ENOXAPARIN 40 MG/0.4 ML (LOVENOX) SYR SC SCH (14:45)
[2018-08-09 16:45] VITALS: BP 145/65
--- NOTE | 2018-08-09 16:59 | Progress Note-Standard ---
Standard Progress Note Progress Notes/Assess & Plan Date Seen by Provider: Aug 09, 2018 Time Seen by Provider: 15:00 Progress/Assessment & Plan Urine output improved with fluid bolus administration. Normotensive. Off vasopressors. Awake and comfortable. Encouraged using incentive spirometry. Electrolytes within normal limits. Due to the requirement to continue monitoring urine output, Reynolds catheter will be retained till tomorrow. Pain control better. Wound dry.Minimal NG output. Vitals stable.Could be transferred to the floor Passing flatus and has had bowel movements. Turbid exudate from the midline wound. Fascia intact. Would benefit from wound VAC placement. Left advance diet and use oral pain medications. Hypokalemia, being replaced. Wound VAC in satisfactory position, minimal output. Low grade fever, but, patient feels to be improving. Will continue to monitor Tearful due to abdominal pain. Wound VAC would be replaced and fascia reexamined. Low-grade fever last night. Developing intra-abdominal abscesses need to be considered and CT scan would be obtained, if fever continues beyond today. CT scan shows fluid collections in the pelvis and the left paracolic gutter, not mature enough to be considered abscesses. Dilated small bowel loops possibly an ileus and therefore nasogastric tube was placed. We will use TPN and administration antibiotics. Follow-up CT scan in 4-5 days and if the fluid collections measured to be abscesses, CT-guided drainage would be performed. Patient and the family updated. Ileorectal anastomosis intact. Purulent drainage from the colostomy site, opened up at the bedside. Wet-to- dry dressing at this point. With regard to the midline wound, the fascia is intact and there is some slough along the superior aspect. Wound care would be replaced. An antibiotics will be continued. CT scan would be repeated on Thursday: 03 August and at that is a likelihood of percutaneous drainage. CT scan confirms resolution of fluid collections with no extravasation of oral contrast. Dilated small bowel loops have resolved. Contrast is actually seen within the rectum, past the anastomosis. There does not appear to be any communication from the superficial abscess cavity over the left lower quadrant, to the peritoneal cavity. Clinically, she appears to be improving and the output from the fistula is very minimal. Therefore, IV antibiotics will be continued along with TPN. Her liver function is slightly deranged, possibly due to a combination of TPN- induced cholestasis and Diflucan. The latter would therefore be stopped. 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 Anemia of chronic disease, would benefit from transfusion. Pseudomonas and E.coli on cultures from the colostomy site abscess. Would switch to merepenem and stop zosyn. Low output entero-cutaneous fistula. In good spirits. LLQ abscess appears to be subcutaneous. Will repeat CT to rule our undrained abscesses/fluid collections. Improving. LFTs declining. Continue TPN and IV antibiotics continues to improve. Minimal output from the fistula. output from the fistula appears to be purulent rather than enteric in nature. Vital signs stable hemoglobin 8.5. In good spirits. Plan on home TPN during the week. reports increased pain over the colostomy site. The abscess cavity has closed over and I have open ended up at the bedside. There appears to be adequate granulation with progression of the abscess cavity. With regard to the enterocutaneous fistula, the output was purulent with no evidence of enteric contents. Plan on discharging home on home TPN toward the end of this week with outpatient follow-up on a weekly basis. Final Diagnosis resolved sigmoid perforation. Enterocutaneous fistula. MACY TALAVERA MD Aug 09, 2018 16:59
[2018-08-09] MEDS: 1/2 NS IV SOLUTION 1,000 ML IV SCH (17:19)
[2018-08-09] MEDS: SODIUM ACETATE IV SCH ×10 (17:20)
[2018-08-09] MEDS: SODIUM PHOSPHATE IV SCH ×10 (17:20)
[2018-08-09] MEDS: [UNRECOGNIZED DRUG - OTHER] IV SCH ×10 (17:20)
[2018-08-09] MEDS: POTASSIUM ACETATE IV SCH ×10 (17:20)
[2018-08-09] MEDS: TESTOSTERONE PO SCH (21:12)
[2018-08-09] MEDS: SIMvastatin 20 MG (ZOCOR) TAB PO SCH (21:12)
[2018-08-09] MEDS: ESTROGEN ESTER PO SCH (21:12)
--- NOTE | 2018-08-09 23:37 | Progress Note (SOAP) ---
Subjective Subjective Date Seen by Provider: Aug 09, 2018 Time Seen by Provider: 07:25 Pt reports she continues to feel better- walked over the weekend to the bathroom - family would not allow her to walk in the [place]. She is hopeful. Pain is controlled. Review of Systems General: Fatigue HEENT: No Head Aches Pulmonary: No Dyspnea, No Cough Cardiovascular: No: Chest Pain Gastrointestinal: Abdominal Pain Genitourinary: No Dysuria, No Frequency Musculoskeletal: No: neck pain, shoulder pain Neurological: Weakness Objective Exam Vital Signs Vital Signs Date Time Temp Pulse Resp B/P (MAP) Pulse Ox O2 Delivery O2 Flow Rate FiO2 08/09/18 21:06 97 Room Air 08/09/18 21:00 Room Air 08/09/18 16:45 97.9 54 16 145/65 (91) 96 Room Air 08/09/18 08:05 Room Air 08/09/18 08:00 98.6 63 18 136/63 (87) 96 Room Air 08/09/18 04:00 99.3 69 18 158/70 (99) 97 Room Air 08/09/18 00:00 98.5 58 18 156/70 (98) 95 Room Air I & O 08/09/18 07:00 Intake Total 1200 ml Output Total 3575 ml Balance -2375 ml General Appearance: No Apparent Distress, WD/WN, Chronically ill, Thin HEENT: PERRL/EOMI Neck: Full Range of Motion, Normal Inspection, Non Tender, Supple Respiratory: Chest Non Tender, Lungs Clear, Normal Breath Sounds, No Accessory Muscle Use, No Respiratory Distress Cardiovascular: Regular Rate, Rhythm, No Gallop, No Murmur, Normal Peripheral Pulses Gastrointestinal: Normal Bowel Sounds, Non Tender, Soft, Other (abdominal cavity improving) Rectal: Deferred Back: No CVA Tenderness Extremity: Pedal Edema (1+ peripheral edema) Neurologic/Psychiatric: Alert, Oriented x3, No Motor/Sensory Deficits, Normal Mood/Affect Skin: Normal Color, Warm/Dry Results Lab Laboratory Tests 08/09/18 05:34: Glucometer 119H 08/09/18 11:59: Lab Scanned Report Transfusion Reaction Form Microbiology 07/30/18 Gram Stain - Final, Complete 07/30/18 Wound Culture - Final, Complete Pseudomonas aeruginosa Escherichia coli Assessment/Plan Assessment/Plan Admission Dx ostomy reversal Assessment and Plan 62 yo F s/p iliorectal anastomosis-07/21/18 Dr. Ng, Surgery. zosyn switched to meropenem on 08/03/18 (F43.21) Adjustment disorder with depressed mood- doing alright (I10) Essential (primary) hypertension- monitor blood pressure- on clonidine patch; stopped amlodipine as pt reports it makes her short of breath. (E03.9) Hypothyroidism- continue levothyroxine- will check tsh as an outpatient in 1-2 month. E87.6 hypokalemia- replacing prn -Intra-abdominal infection- on meropenem- for ecoli, pseudomonas. -enterocutaneous fistula- monitoring -anemia of chronic disease- transfused 2 units pRBC 08/04/18 -protein calorie malnutrition - on TPN Dispo: monitoring closely. On TPN for nutrition. Dr. Ng plans on d/c to home on TPN- later this week- and follow up weekly. Problems: (1) Bibasilar crackles (2) Weakness (3) Protein malnutrition (4) Anemia Qualifiers: (5) REVERSAL OF COLOSTOMY Admission Dx ostomy reversal Clinical Quality Measures Admission Status Admission Dx ostomy reversal BATOOL MEJÍA MD Aug 09, 2018 23:37
[2018-08-10] VITALS: BP 158/70
[2018-08-10] MEDS: METOCLOPRAMIDE INJ 10 MG/2 ML (REGLAN) IVP SCH ×5 (00:08→23:54)
[2018-08-10] MEDS: MEROPENEM 500 MG in NS (IVPB) 100 ML IV SCH ×5 (00:08→23:54)
[2018-08-10] MEDS: oxyCODONE/APAP 5/325MG (PERCOCET 5) TABLET PO PRN ×4 (00:18→18:39)
[2018-08-10] MEDS: LEVOTHYROXINE 100 MCG (LEVOTHROID) TAB PO SCH (06:16)
[2018-08-10] MEDS: RT-ALBUTEROL SULF 2.5 MG/3 ML PRE-MIX VIAL INH SCH ×3 (07:32→19:35)
[2018-08-10 08:00] VITALS: BP 154/60
[2018-08-10] MEDS: OLMESARTAN 20 MG (BENICAR) TABLET PO SCH (09:39)
--- NOTE | 2018-08-10 10:20 | Progress Note-Standard ---
Standard Progress Note Progress Notes/Assess & Plan Date Seen by Provider: Aug 10, 2018 Time Seen by Provider: 08:05 Progress/Assessment & Plan Urine output improved with fluid bolus administration. Normotensive. Off vasopressors. Awake and comfortable. Encouraged using incentive spirometry. Electrolytes within normal limits. Due to the requirement to continue monitoring urine output, Reynolds catheter will be retained till tomorrow. Pain control better. Wound dry.Minimal NG output. Vitals stable.Could be transferred to the floor Passing flatus and has had bowel movements. Turbid exudate from the midline wound. Fascia intact. Would benefit from wound VAC placement. Left advance diet and use oral pain medications. Hypokalemia, being replaced. Wound VAC in satisfactory position, minimal output. Low grade fever, but, patient feels to be improving. Will continue to monitor Tearful due to abdominal pain. Wound VAC would be replaced and fascia reexamined. Low-grade fever last night. Developing intra-abdominal abscesses need to be considered and CT scan would be obtained, if fever continues beyond today. CT scan shows fluid collections in the pelvis and the left paracolic gutter, not mature enough to be considered abscesses. Dilated small bowel loops possibly an ileus and therefore nasogastric tube was placed. We will use TPN and administration antibiotics. Follow-up CT scan in 4-5 days and if the fluid collections measured to be abscesses, CT-guided drainage would be performed. Patient and the family updated. Ileorectal anastomosis intact. Purulent drainage from the colostomy site, opened up at the bedside. Wet-to- dry dressing at this point. With regard to the midline wound, the fascia is intact and there is some slough along the superior aspect. Wound care would be replaced. An antibiotics will be continued. CT scan would be repeated on Thursday: 03 August and at that is a likelihood of percutaneous drainage. CT scan confirms resolution of fluid collections with no extravasation of oral contrast. Dilated small bowel loops have resolved. Contrast is actually seen within the rectum, past the anastomosis. There does not appear to be any communication from the superficial abscess cavity over the left lower quadrant, to the peritoneal cavity. Clinically, she appears to be improving and the output from the fistula is very minimal. Therefore, IV antibiotics will be continued along with TPN. Her liver function is slightly deranged, possibly due to a combination of TPN- induced cholestasis and Diflucan. The latter would therefore be stopped. 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 Anemia of chronic disease, would benefit from transfusion. Pseudomonas and E.coli on cultures from the colostomy site abscess. Would switch to merepenem and stop zosyn. Low output entero-cutaneous fistula. In good spirits. LLQ abscess appears to be subcutaneous. Will repeat CT to rule our undrained abscesses/fluid collections. Improving. LFTs declining. Continue TPN and IV antibiotics discomfort over the colostomy site much improved. No major changes. plan for home TPN toward the end of this week. continues to improve. Minimal output from the fistula. output from the fistula appears to be purulent rather than enteric in nature. Vital signs stable hemoglobin 8.5. In good spirits. Plan on home TPN during the week. reports increased pain over the colostomy site. The abscess cavity has closed over and I have open ended up at the bedside. There appears to be adequate granulation with progression of the abscess cavity. With regard to the enterocutaneous fistula, the output was purulent with no evidence of enteric contents. Plan on discharging home on home TPN toward the end of this week with outpatient follow-up on a weekly basis. Final Diagnosis resolved sigmoid perforation. Enterocutaneous fistula. MACY TALAVERA MD Aug 10, 2018 10:20
--- NOTE | 2018-08-10 10:22 | Physical Therapy Daily Note ---
PT Daily Note-Current Subjective Patient agrees to PT. Pain Numeric Pain Scale: 6 Location: Lower Location Body Site: Abdomen Pain Description: Pressure Mental Status Patient Orientation: Normal For Age Attachments: IV Transfers Functional [place] Measure 0=Not Assessed/NA 4=Minimal Assistance 1=Total Assistance 5=Supervision or Setup 2=Maximal Assistance 6=Modified [place] 3=Moderate Assistance 7=Complete IndependenceIRFPAI Quality Coding Scale 6 Independent with activity with or without an assistive device 5 Patient requires set up or clean up by helper. Patient completes activity by themselves 4 Supervision or touching assist (CGA). [place] provide cues , steadying assist 3 The helper provides less than half the effort to complete the activity 2 The helper provides more than half the effort to complete the activity 1 Dependent. The helper does all the effort to complete an activity 7 Patient refused to complete or attempt activity 9 The patient did not perform the activity before the current illness or injury 88 Not attempted due to Medical conditions or safety concerns Transfers (B, C, W/C) (FIM): 6 Scootin Rollin Supine to/from Sit: 6 Sit to/from Stand: 6 Bed to/from Chair: 6 Weight Bearing Right Lower Extremity: Right Weight Bearing/Tolerated Left Lower Extremity: Left Weight Bearing/Tolerated Gait Training Gait (FIM): 6 Distance (FIM): 3=150 ft Distance: 300' x 2 Gait Level of Assist: 6 Gait Assistive Device: FWW slow, steady, 3 standing recovery periods due to fatigue Assessment Patient returned to bed with needs met. PT to increase activity as patient tolerates. PT Lending Consultant Goals Skilled Nursing Goals PT Skilled Nursing Goals Time Frame: Aug 14, 2018 Transfers (B,C,W/C) (FIM): 6 Gait (FIM): 6 PT Plan Treatment/Plan Treatment Plan: Continue Plan of Care Treatment Plan: Bed Mobility, Education, Functional Activity Carlos A, Functional Strength, Gait, Safety, Therapeutic Exercise, Transfers Treatment Duration: Aug 14, 2018 Frequency: 6 times per week Estimated Hrs Per Day: .5 hour per day Patient and/or Family Agrees t: Yes Time/GCodes Time In: 945 Time Out: 957 Total Billed Treatment Time: 12 Total Billed Treatment 1 visit FA 12 min JOSE CARUSO PT Aug 10, 2018 10:21
[2018-08-10] MEDS: ENOXAPARIN 40 MG/0.4 ML (LOVENOX) SYR SC SCH (13:28)
[2018-08-10] MEDS: POTASSIUM ACETATE IV SCH ×10 (15:31)
[2018-08-10] MEDS: [UNRECOGNIZED DRUG - OTHER] IV SCH ×10 (15:31)
[2018-08-10] MEDS: SODIUM ACETATE IV SCH ×10 (15:31)
[2018-08-10] MEDS: SODIUM PHOSPHATE IV SCH ×10 (15:31)
[2018-08-10 16:00] VITALS: BP 146/65
[2018-08-10] MEDS: 1/2 NS IV SOLUTION 1,000 ML IV SCH (16:35)
[2018-08-10] MEDS: SIMvastatin 20 MG (ZOCOR) TAB PO SCH (20:02)
[2018-08-10] MEDS: TESTOSTERONE PO SCH (20:03)
[2018-08-10] MEDS: ESTROGEN ESTER PO SCH (20:03)
[2018-08-11] VITALS: BP 157/68
[2018-08-11] MEDS: oxyCODONE/APAP 5/325MG (PERCOCET 5) TABLET PO PRN ×4 (00:08→20:15)
[2018-08-11] MEDS: MEROPENEM 500 MG in NS (IVPB) 100 ML IV SCH ×3 (05:18→18:38)
[2018-08-11] MEDS: METOCLOPRAMIDE INJ 10 MG/2 ML (REGLAN) IVP SCH ×3 (05:18→18:38)
[2018-08-11] MEDS: LEVOTHYROXINE 100 MCG (LEVOTHROID) TAB PO SCH (05:35)
[2018-08-11 08:52] VITALS: BP 158/72
[2018-08-11] MEDS: OLMESARTAN 20 MG (BENICAR) TABLET PO SCH (08:55)
--- NOTE | 2018-08-11 09:46 | Physical Therapy Daily Note ---
PT Daily Note-Current Subjective Agrees to PT. Hopes to go home . Reports she feels she can manage at home. Transfers Functional [place] Measure 0=Not Assessed/NA 4=Minimal Assistance 1=Total Assistance 5=Supervision or Setup 2=Maximal Assistance 6=Modified [place] 3=Moderate Assistance 7=Complete IndependenceIRFPAI Quality Coding Scale 6 Independent with activity with or without an assistive device 5 Patient requires set up or clean up by helper. Patient completes activity by themselves 4 Supervision or touching assist (CGA). [place] provide cues , steadying assist 3 The helper provides less than half the effort to complete the activity 2 The helper provides more than half the effort to complete the activity 1 Dependent. The helper does all the effort to complete an activity 7 Patient refused to complete or attempt activity 9 The patient did not perform the activity before the current illness or injury 88 Not attempted due to Medical conditions or safety concerns Transfers (B, C, W/C) (FIM): 4 Supine to/from Sit: 4 (SBA to sit up and min assist to lift her legs into bed. ) Sit to/from Stand: 5 Weight Bearing Right Lower Extremity: Right Weight Bearing/Tolerated Left Lower Extremity: Left Weight Bearing/Tolerated Gait Training Gait (FIM): 5 Distance (FIM): 3=150 ft Distance: 250 ft Gait Level of Assist: 5 Gait Assistive Device: FWW safe and steady gait with use of FWW Assessment Current Status: Good Progress In general, she is SBA with functional mobility. PT Salon Designer Goals Salon Designer Goals PT Salon Designer Goals Time Frame: Aug 14, 2018 Transfers (B,C,W/C) (FIM): 6 Gait (FIM): 6 PT Plan Problem List Problem List: Activity Tolerance, Functional Strength, Safety Treatment/Plan Treatment Plan: Continue Plan of Care Treatment Plan: Bed Mobility, Education, Functional Activity Carlos A, Functional Strength, Gait, Safety, Therapeutic Exercise, Transfers Treatment Duration: Aug 14, 2018 Frequency: 6 times per week Estimated Hrs Per Day: .5 hour per day Patient and/or Family Agrees t: Yes Safety Risks/Education Patient Education: Transfer Techniques, Safety Issues Teaching Recipient: Patient Teaching Methods: Discussion Response to Teaching: Return Demonstration Time/GCodes Time In: 925 Time Out: 941 Total Billed Treatment Time: 16 Total Billed Treatment visit GT 16 LILY MATTHEWS PT Aug 11, 2018 09:46
--- NOTE | 2018-08-11 11:09 | Progress Note-Standard ---
Standard Progress Note Progress Notes/Assess & Plan Date Seen by Provider: Aug 11, 2018 Time Seen by Provider: 11:08 Progress/Assessment & Plan Urine output improved with fluid bolus administration. Normotensive. Off vasopressors. Awake and comfortable. Encouraged using incentive spirometry. Electrolytes within normal limits. Due to the requirement to continue monitoring urine output, Reynolds catheter will be retained till tomorrow. Pain control better. Wound dry.Minimal NG output. Vitals stable.Could be transferred to the floor Passing flatus and has had bowel movements. Turbid exudate from the midline wound. Fascia intact. Would benefit from wound VAC placement. Left advance diet and use oral pain medications. Hypokalemia, being replaced. Wound VAC in satisfactory position, minimal output. Low grade fever, but, patient feels to be improving. Will continue to monitor Tearful due to abdominal pain. Wound VAC would be replaced and fascia reexamined. Low-grade fever last night. Developing intra-abdominal abscesses need to be considered and CT scan would be obtained, if fever continues beyond today. CT scan shows fluid collections in the pelvis and the left paracolic gutter, not mature enough to be considered abscesses. Dilated small bowel loops possibly an ileus and therefore nasogastric tube was placed. We will use TPN and administration antibiotics. Follow-up CT scan in 4-5 days and if the fluid collections measured to be abscesses, CT-guided drainage would be performed. Patient and the family updated. Ileorectal anastomosis intact. Purulent drainage from the colostomy site, opened up at the bedside. Wet-to- dry dressing at this point. With regard to the midline wound, the fascia is intact and there is some slough along the superior aspect. Wound care would be replaced. An antibiotics will be continued. CT scan would be repeated on Thursday: 03 August and at that is a likelihood of percutaneous drainage. CT scan confirms resolution of fluid collections with no extravasation of oral contrast. Dilated small bowel loops have resolved. Contrast is actually seen within the rectum, past the anastomosis. There does not appear to be any communication from the superficial abscess cavity over the left lower quadrant, to the peritoneal cavity. Clinically, she appears to be improving and the output from the fistula is very minimal. Therefore, IV antibiotics will be continued along with TPN. Her liver function is slightly deranged, possibly due to a combination of TPN- induced cholestasis and Diflucan. The latter would therefore be stopped. 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 Anemia of chronic disease, would benefit from transfusion. Pseudomonas and E.coli on cultures from the colostomy site abscess. Would switch to merepenem and stop zosyn. Low output entero-cutaneous fistula. In good spirits. LLQ abscess appears to be subcutaneous. Will repeat CT to rule our undrained abscesses/fluid collections. Improving. LFTs declining. Continue TPN and IV antibiotics discomfort over the colostomy site much improved. No major changes. plan for home TPN toward the end of this week. continues to improve. Minimal output from the fistula. output from the fistula appears to be purulent rather than enteric in nature. Vital signs stable hemoglobin 8.5. In good spirits. Plan on home TPN during the week. reports increased pain over the colostomy site. The abscess cavity has closed over and I have open ended up at the bedside. There appears to be adequate granulation with progression of the abscess cavity. With regard to the enterocutaneous fistula, the output was purulent with no evidence of enteric contents. Plan on discharging home on home TPN toward the end of this week with outpatient follow-up on a weekly basis. discharge planning in progress. No new concerns. Minimal output from the wound. Final Diagnosis resolved sigmoid perforation. Enterocutaneous fistula. MACY TALAVERA MD Aug 11, 2018 11:09
[2018-08-11] MEDS: ENOXAPARIN 40 MG/0.4 ML (LOVENOX) SYR SC SCH (13:30)
[2018-08-11] MEDS: RT-ALBUTEROL SULF 2.5 MG/3 ML PRE-MIX VIAL INH SCH ×3 (15:32→19:29)
[2018-08-11] MEDS: [UNRECOGNIZED DRUG - OTHER] IV SCH ×10 (16:37)
[2018-08-11] MEDS: POTASSIUM ACETATE IV SCH ×10 (16:37)
[2018-08-11] MEDS: SODIUM PHOSPHATE IV SCH ×10 (16:37)
[2018-08-11] MEDS: SODIUM ACETATE IV SCH ×10 (16:37)
[2018-08-11 16:48] VITALS: BP 162/70
[2018-08-11] MEDS: ESTROGEN ESTER PO SCH (20:15)
[2018-08-11] MEDS: SIMvastatin 20 MG (ZOCOR) TAB PO SCH (20:15)
[2018-08-11] MEDS: TESTOSTERONE PO SCH (20:15)
[2018-08-11] MEDS: 1/2 NS IV SOLUTION 1,000 ML IV SCH (20:15)
[2018-08-12] MEDS: METOCLOPRAMIDE INJ 10 MG/2 ML (REGLAN) IVP SCH ×5 (00:07→23:03)
[2018-08-12] MEDS: MEROPENEM 500 MG in NS (IVPB) 100 ML IV SCH ×5 (00:08→23:03)
[2018-08-12] MEDS: oxyCODONE/APAP 5/325MG (PERCOCET 5) TABLET PO PRN ×4 (02:26→20:20)
[2018-08-12] MEDS: LEVOTHYROXINE 100 MCG (LEVOTHROID) TAB PO SCH (05:05)
[2018-08-12] MEDS: RT-ALBUTEROL SULF 2.5 MG/3 ML PRE-MIX VIAL INH SCH ×4 (07:57→19:24)
[2018-08-12 08:00] VITALS: BP 166/71
[2018-08-12] MEDS: OLMESARTAN 20 MG (BENICAR) TABLET PO SCH (08:38)
[2018-08-12] MEDS: fentaNYL INJECTION 100 MCG/2 ML AMP IV PRN (08:52)
[2018-08-12 09:12] LABS: BASOPHILS % (AUTO) 0 % (0-10); EOSINOPHILS # (AUTO) 0.2 10^3/uL (0.0-0.3); EOSINOPHILS % (AUTO) 2 % (0-10); HEMATOCRIT 27 % (35-52); HEMOGLOBIN 8.8 G/DL (11.5-16.0); LYMPHOCYTES # (AUTO) 1.6 X 10^3 (1.0-4.0); LYMPHOCYTES % (AUTO) 16 % (12-44); MEAN CORPUSCULAR HEMOGLOBIN 28 PG (25-34); MEAN CORPUSCULAR HGB CONC 32 G/DL (32-36); MEAN CORPUSCULAR VOLUME 88 FL (80-99); MEAN PLATELET VOLUME 10.2 FL (7.4-10.4); MONOCYTES # (AUTO) 0.6 X 10^3 (0.0-1.0); MONOCYTES % (AUTO) 6 % (0-12); NEUTROPHILS # (AUTO) 7.8 X 10^3 (1.8-7.8); NEUTROPHILS % (AUTO) 76 % (42-75); PLATELET COUNT 381 10^3/uL (130-400); RED CELL DISTRIBUTION WIDTH 14.9 % (10.0-14.5); WHITE BLOOD COUNT 10.2 10^3/uL (4.3-11.0)
--- NOTE | 2018-08-12 09:27 | Progress Note-Standard ---
Standard Progress Note Progress Notes/Assess & Plan Date Seen by Provider: Aug 12, 2018 Time Seen by Provider: 08:41 Progress/Assessment & Plan Urine output improved with fluid bolus administration. Normotensive. Off vasopressors. Awake and comfortable. Encouraged using incentive spirometry. Electrolytes within normal limits. Due to the requirement to continue monitoring urine output, Reynolds catheter will be retained till tomorrow. Pain control better. Wound dry.Minimal NG output. Vitals stable.Could be transferred to the floor Passing flatus and has had bowel movements. Turbid exudate from the midline wound. Fascia intact. Would benefit from wound VAC placement. Left advance diet and use oral pain medications. Hypokalemia, being replaced. Wound VAC in satisfactory position, minimal output. Low grade fever, but, patient feels to be improving. Will continue to monitor Tearful due to abdominal pain. Wound VAC would be replaced and fascia reexamined. Low-grade fever last night. Developing intra-abdominal abscesses need to be considered and CT scan would be obtained, if fever continues beyond today. CT scan shows fluid collections in the pelvis and the left paracolic gutter, not mature enough to be considered abscesses. Dilated small bowel loops possibly an ileus and therefore nasogastric tube was placed. We will use TPN and administration antibiotics. Follow-up CT scan in 4-5 days and if the fluid collections measured to be abscesses, CT-guided drainage would be performed. Patient and the family updated. Ileorectal anastomosis intact. Purulent drainage from the colostomy site, opened up at the bedside. Wet-to- dry dressing at this point. With regard to the midline wound, the fascia is intact and there is some slough along the superior aspect. Wound care would be replaced. An antibiotics will be continued. CT scan would be repeated on Thursday: 03 August and at that is a likelihood of percutaneous drainage. CT scan confirms resolution of fluid collections with no extravasation of oral contrast. Dilated small bowel loops have resolved. Contrast is actually seen within the rectum, past the anastomosis. There does not appear to be any communication from the superficial abscess cavity over the left lower quadrant, to the peritoneal cavity. Clinically, she appears to be improving and the output from the fistula is very minimal. Therefore, IV antibiotics will be continued along with TPN. Her liver function is slightly deranged, possibly due to a combination of TPN- induced cholestasis and Diflucan. The latter would therefore be stopped. 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 Anemia of chronic disease, would benefit from transfusion. Pseudomonas and E.coli on cultures from the colostomy site abscess. Would switch to merepenem and stop zosyn. Low output entero-cutaneous fistula. In good spirits. LLQ abscess appears to be subcutaneous. Will repeat CT to rule our undrained abscesses/fluid collections. Improving. LFTs declining. Continue TPN and IV antibiotics midline wound granulating. Very minimal slough. No enteric contents noticed. Colostomy wound over the left lower quadrant granulating as well. Will have completed 14 days of antibiotic by tomorrow and therefore could be discharged without additional antibiotics. discomfort over the colostomy site much improved. No major changes. plan for home TPN toward the end of this week. continues to improve. Minimal output from the fistula. output from the fistula appears to be purulent rather than enteric in nature. Vital signs stable hemoglobin 8.5. In good spirits. Plan on home TPN during the week. reports increased pain over the colostomy site. The abscess cavity has closed over and I have open ended up at the bedside. There appears to be adequate granulation with progression of the abscess cavity. With regard to the enterocutaneous fistula, the output was purulent with no evidence of enteric contents. Plan on discharging home on home TPN toward the end of this week with outpatient follow-up on a weekly basis. discharge planning in progress. No new concerns. Minimal output from the wound. Final Diagnosis resolved sigmoid perforation. Enterocutaneous fistula. MACY TALAVERA MD Aug 12, 2018 09:27
[2018-08-12 09:30] LABS: ALANINE AMINOTRANSFERASE 34 U/L (0-55); ALBUMIN 2.4 GM/DL (3.2-4.5); ALKALINE PHOSPHATASE 166 U/L (40-136); BILIRUBIN,TOTAL 0.4 MG/DL (0.1-1.0); BUN/CREATININE RATIO 29; CALCIUM 8.6 MG/DL (8.5-10.1); CARBON DIOXIDE 26 MMOL/L (21-32); CHLORIDE 103 MMOL/L (98-107); CREATININE SERUM 0.62 MG/DL (0.60-1.30); GFR ESTIMATED > 60; GLUCOSE 113 MG/DL (70-105); POTASSIUM 3.7 MMOL/L (3.6-5.0); SODIUM 137 MMOL/L (135-145); TOTAL PROTEIN 5.7 GM/DL (6.4-8.2)
--- NOTE | 2018-08-12 10:23 | Physical Therapy Daily Note ---
PT Daily Note-Current Subjective Patient agrees to PT. And report she is going home tomorrow. Pain Numeric Pain Scale: 5-Moderate Pain Location: Lower Location Body Site: Abdomen Pain Description: Pressure Mental Status Patient Orientation: Normal For Age Attachments: IV Transfers Functional [place] Measure 0=Not Assessed/NA 4=Minimal Assistance 1=Total Assistance 5=Supervision or Setup 2=Maximal Assistance 6=Modified [place] 3=Moderate Assistance 7=Complete IndependenceIRFPAI Quality Coding Scale 6 Independent with activity with or without an assistive device 5 Patient requires set up or clean up by helper. Patient completes activity by themselves 4 Supervision or touching assist (CGA). [place] provide cues , steadying assist 3 The helper provides less than half the effort to complete the activity 2 The helper provides more than half the effort to complete the activity 1 Dependent. The helper does all the effort to complete an activity 7 Patient refused to complete or attempt activity 9 The patient did not perform the activity before the current illness or injury 88 Not attempted due to Medical conditions or safety concerns Transfers (B, C, W/C) (FIM): 6 Scootin Rollin Supine to/from Sit: 6 Sit to/from Stand: 6 Weight Bearing Right Lower Extremity: Right Weight Bearing/Tolerated Left Lower Extremity: Left Weight Bearing/Tolerated Gait Training Gait (FIM): 6 Distance (FIM): 3=150 ft Distance: 300' x 2 Gait Level of Assist: 6 Gait Assistive Device: FWW slow, safe and functional Assessment Patient returned to bed with need met. Patient is currently at modified [facility] with all gross motor skills. Plan dismissal tomorrow. PT Salvationist Goals Assisted Goals PT Assisted Goals Time Frame: Aug 14, 2018 Transfers (B,C,W/C) (FIM): 6 Gait (FIM): 6 PT Plan Treatment/Plan Treatment Plan: Continue Plan of Care Treatment Plan: Bed Mobility, Education, Functional Activity Carlos A, Functional Strength, Gait, Safety, Therapeutic Exercise, Transfers Treatment Duration: Aug 14, 2018 Frequency: 6 times per week Estimated Hrs Per Day: .5 hour per day Patient and/or Family Agrees t: Yes Time/GCodes Time In: 1000 Time Out: 1015 Total Billed Treatment Time: 15 Total Billed Treatment 1 visit FA 15 min JOSE CARUSO PT Aug 12, 2018 10:23
[2018-08-12 10:49] LABS: MAGNESIUM 1.9 MG/DL (1.8-2.4); PHOSPHORUS 3.4 MG/DL (2.3-4.7)
[2018-08-12] MEDS: ENOXAPARIN 40 MG/0.4 ML (LOVENOX) SYR SC SCH (13:04)
[2018-08-12 16:00] VITALS: BP 146/67
[2018-08-12] MEDS: [UNRECOGNIZED DRUG - OTHER] IV SCH ×10 (17:11)
[2018-08-12] MEDS: 1/2 NS IV SOLUTION 1,000 ML IV SCH ×2 (17:11→23:03)
[2018-08-12] MEDS: SODIUM ACETATE IV SCH ×10 (17:11)
[2018-08-12] MEDS: SODIUM PHOSPHATE IV SCH ×10 (17:11)
[2018-08-12] MEDS: POTASSIUM ACETATE IV SCH ×10 (17:11)
[2018-08-12 19:37] VITALS: BP 158/78
[2018-08-12] MEDS: SIMvastatin 20 MG (ZOCOR) TAB PO SCH (20:19)
[2018-08-12] MEDS: ESTROGEN ESTER PO SCH (20:20)
[2018-08-12] MEDS: TESTOSTERONE PO SCH (20:20)
[2018-08-13] MEDS: oxyCODONE/APAP 5/325MG (PERCOCET 5) TABLET PO PRN ×3 (00:22→10:41)
[2018-08-13 00:24] VITALS: BP 163/70
[2018-08-13] MEDS: METOCLOPRAMIDE INJ 10 MG/2 ML (REGLAN) IVP SCH ×2 (05:35→11:08)
[2018-08-13] MEDS: LEVOTHYROXINE 100 MCG (LEVOTHROID) TAB PO SCH (05:35)
[2018-08-13] MEDS: MEROPENEM 500 MG in NS (IVPB) 100 ML IV SCH ×2 (05:35→11:08)
[2018-08-13] MEDS: RT-ALBUTEROL SULF 2.5 MG/3 ML PRE-MIX VIAL INH SCH (06:05)
[2018-08-13 07:49] VITALS: BP 151/68
--- NOTE | 2018-08-13 08:30 | Progress Note (SOAP) ---
Subjective Subjective Date Seen by Provider: Aug 13, 2018 Time Seen by Provider: 08:27 Pt reports she has improved more this week. She is looking forward to going home today as it is also her birthday. Denies nausea/vomiting. Tolerating liquids still. Abdominal pain still present. Mood is improving. Temperature staying in the 99sF. Review of Systems General: Fatigue HEENT: No Head Aches Pulmonary: No Dyspnea, No Cough Cardiovascular: No: Chest Pain Gastrointestinal: Abdominal Pain Genitourinary: No Dysuria, No Frequency Musculoskeletal: No: neck pain, shoulder pain Neurological: Weakness Objective Exam Vital Signs Vital Signs Date Time Temp Pulse Resp B/P (MAP) Pulse Ox O2 Delivery O2 Flow Rate FiO2 08/13/18 07:49 99.2 58 18 151/68 (95) 98 Room Air 08/13/18 00:24 99.4 64 16 163/70 (101) 97 Room Air 08/12/18 19:37 99.5 62 18 158/78 (104) 97 Room Air 08/12/18 19:24 Room Air 08/12/18 16:00 99.7 61 16 146/67 (93) 96 Room Air I & O 08/13/18 07:00 Intake Total 1850 ml Output Total 1433 ml Balance 417 ml General Appearance: No Apparent Distress, WD/WN, Chronically ill (improved though), Thin HEENT: PERRL/EOMI Neck: Full Range of Motion, Normal Inspection, Non Tender, Supple Respiratory: Chest Non Tender, Lungs Clear, Normal Breath Sounds, No Accessory Muscle Use, No Respiratory Distress Cardiovascular: Regular Rate, Rhythm, No Gallop, No Murmur, Normal Peripheral Pulses Gastrointestinal: Normal Bowel Sounds, Non Tender, Soft, Other (abdominal cavity improving) Rectal: Deferred Back: No CVA Tenderness Extremity: Pedal Edema (1+ peripheral edema) Neurologic/Psychiatric: Alert, Oriented x3, No Motor/Sensory Deficits, Normal Mood/Affect Skin: Normal Color, Warm/Dry Results Lab Laboratory Tests 08/12/18 09:05: White Blood Count 10.2, Red Blood Count 3.10L, Hemoglobin 8.8L, Hematocrit 27L, Mean Corpuscular Volume 88, Mean Corpuscular Hemoglobin 28, Mean Corpuscular Hemoglobin Concent 32, Red Cell Distribution Width 14.9H, Platelet Count 381, Mean Platelet Volume 10.2, Neutrophils (%) (Auto) 76H, Lymphocytes (%) (Auto) 16 , Monocytes (%) (Auto) 6, Eosinophils (%) (Auto) 2, Basophils (%) (Auto) 0, Neutrophils # (Auto) 7.8, Lymphocytes # (Auto) 1.6, Monocytes # (Auto) 0.6, Eosinophils # (Auto) 0.2, Basophils # (Auto) 0.0, Sodium Level 137, Potassium Level 3.7, Chloride Level 103, Carbon Dioxide Level 26, Anion Gap 8, Blood Urea Nitrogen 18, Creatinine 0.62, Estimat Glomerular Filtration Rate > 60, BUN/ Creatinine Ratio 29, Glucose Level 113H, Calcium Level 8.6, Corrected Calcium 9.9, Phosphorus Level 3.4, Magnesium Level 1.9, Total Bilirubin 0.4, Aspartate Amino Transf (AST/SGOT) 20, Alanine Aminotransferase (ALT/SGPT) 34, Alkaline Phosphatase 166H, Total Protein 5.7L, Albumin 2.4L, Triglycerides Level 67 08/13/18 05:34: Glucometer 118H Microbiology 07/30/18 Gram Stain - Final, Complete 07/30/18 Wound Culture - Final, Complete Pseudomonas aeruginosa Escherichia coli Assessment/Plan Assessment/Plan Admission Dx ostomy reversal Assessment and Plan 62 yo F s/p iliorectal anastomosis-07/21/18 Dr. Ng, Surgery. zosyn switched to meropenem on 08/03/18 (F43.21) Adjustment disorder with depressed mood- doing alright (I10) Essential (primary) hypertension- monitor blood pressure- on clonidine patch; stopped amlodipine as pt reports it makes her short of breath. (E03.9) Hypothyroidism- continue levothyroxine- will check tsh as an outpatient in 1-2 month. E87.6 hypokalemia- replacing prn -Intra-abdominal infection- on meropenem- for ecoli, pseudomonas. -enterocutaneous fistula- monitoring -anemia of chronic disease- transfused 2 units pRBC 08/04/18 -protein calorie malnutrition - on TPN Dispo: monitoring closely. On TPN for nutrition. Dr. Ng plans to d/c to home on TPN- Stay off amlodipine for now. Continue clonidine patch. Problems: (1) Weakness (2) Protein malnutrition (3) Anemia Qualifiers: (4) REVERSAL OF COLOSTOMY Admission Dx ostomy reversal Clinical Quality Measures Admission Status Admission Dx ostomy reversal BATOOL MEJÍA MD Aug 13, 2018 08:30
[2018-08-13] MEDS: OLMESARTAN 20 MG (BENICAR) TABLET PO SCH (08:35)
--- NOTE | 2018-08-13 10:32 | Physical Therapy Progress Note ---
Therapy Progress Note Patient visit. Pt reports she plans to discharge today, declined therapy at this time. Reports she feels ready for dc and has no therapy questions at this time. Reports she feels she is moving well and does not need [facility] PT at this time. DC PT. Visit only LILY MATTHEWS PT Aug 13, 2018 10:32
[2018-08-13] MEDS ORDERED: ACHD5005 PO (11:20)
--- NOTE | 2018-08-13 11:22 | Discharge Inst-Simple/Standard ---
Discharge Inst-Standard Discharge Medications New, Converted or Re-Newed RX: RX on Chart Patient Instructions/Follow Up Plan of Care/Instructions/FU: PICC line to stay. TPN to be continued at home, pharmacy to make recommendations. Please arrange follow-ups at outpatient surgery on Mondays and . Abdominal binder to be placed whenever she is out of bed Activity as Tolerated: No Goal: No lifting or pushing. Discharge Diet: Liquid Diet MACY TALAVERA MD Aug 13, 2018 11:21
--- NOTE | 2018-08-13 11:26 | Discharge Summary ---
Diagnosis/Chief Complaint Date of Admission Jul 21, 2018 at 05:54 Date of Discharge 08/13/18 Discharge Date: Aug 13, 2018 Discharge Time: 11:22 Admission Diagnosis Admission Diagnosis Resolved sigmoid perforation Discharge Diagnosis Resolved sigmoid perforation Enterocutaneous fistula, improving. Left lower quadrant subcutaneous abscess Reason Hospital Visit She was admitted electively, in preparation for reversal of a left lower quadrant sigmoid colostomy, that was performed, about 18 months ago, when she suffered fecal peritonitis. Intraoperatively, multiple, sealed off pericolic abscesses were encountered and therefore total colectomy with ileorectal anastomosis was performed. Her recovery was slow, mainly being hampered by a subcutaneous abscess over the colostomy site and an intra-abdominal abscess leading to an enterocutaneous fistula. Further imaging has confirmed absence of any intra-abdominal abscess with an intact ileorectal anastomosis. There was no extravasation of oral contrast either. For the last several days, he output from the fistula has mainly been purulent with absence of any enteric contents. It is therefore anticipated that the fistula will heal spontaneously; in preparation for this, TPN will be continued for a few more days and she will be reevaluated twice a week.. Oral intake would be resumed very slowly over the next several days as she is being followed up. PICC line would be preserved facilitate continuation of TPN was she is at home, under the direction of home health services. She has completed 14 days of intravenous antibiotics and in the absence of any unresolved abscesses, it is reasonable to discontinue. Discharge Summary Procedures Total colectomy with ileorectal anastomosis Consultations Physical therapy Discharge Physical Examination Allergies: Coded Allergies: ciprofloxacin (Verified Allergy, Mild, 05/21/18) lisinopril (Verified Allergy, Mild, 05/21/18) cefuroxime (Verified Allergy, Unknown, 05/21/18) Vitals & I&Os Vital Signs Date Time Temp Pulse Resp B/P (MAP) Pulse Ox O2 Delivery O2 Flow Rate FiO2 08/13/18 09:00 Room Air 08/13/18 07:49 99.2 58 18 151/68 (95) 98 Hospital Course Labs (last 24 hrs) Laboratory Tests 07/21/18 05:54: Lab Scanned Report Referred Lab Report 07/21/18 14:43: White Blood Count 8.8, Red Blood Count 3.93L, Hemoglobin 11.6, Hematocrit 35, Mean Corpuscular Volume 89, Mean Corpuscular Hemoglobin 30, Mean Corpuscular Hemoglobin Concent 33, Red Cell Distribution Width 13.2, Platelet Count 232, Mean Platelet Volume 10.0, Sodium Level 137, Potassium Level 3.9, Chloride Level 107, Carbon Dioxide Level 24, Anion Gap 6, Blood Urea Nitrogen 15, Creatinine 1.00, Estimat Glomerular Filtration Rate 57, BUN/Creatinine Ratio 15 , Glucose Level 229H, Calcium Level 8.2L 07/22/18 03:43: White Blood Count 8.4, Red Blood Count 3.59L, Hemoglobin 10.5L, Hematocrit 32L, Mean Corpuscular Volume 88, Mean Corpuscular Hemoglobin 29, Mean Corpuscular Hemoglobin Concent 33, Red Cell Distribution Width 13.2, Platelet Count 198, Mean Platelet Volume 9.8, Sodium Level 135, Potassium Level 4.4, Chloride Level 106, Carbon Dioxide Level 22, Anion Gap 7, Blood Urea Nitrogen 18, Creatinine 1.01, Estimat Glomerular Filtration Rate 56, BUN/Creatinine Ratio 18, Glucose Level 214H, Calcium Level 7.8L, Neutrophils (%) (Auto) 89H, Lymphocytes (%) ( Auto) 5L, Monocytes (%) (Auto) 6, Eosinophils (%) (Auto) 0, Basophils (%) (Auto ) 0, Neutrophils # (Auto) 7.5, Lymphocytes # (Auto) 0.4L, Monocytes # (Auto) 0.5 , Eosinophils # (Auto) 0.0, Basophils # (Auto) 0.0, Corrected Calcium 8.6, Phosphorus Level 4.0, Magnesium Level 1.8, Total Bilirubin 0.5, Aspartate Amino Transf (AST/SGOT) 55H, Alanine Aminotransferase (ALT/SGPT) 63H, Alkaline Phosphatase 85, Total Protein 4.5L, Albumin 3.0L 07/23/18 03:47: White Blood Count 8.2, Red Blood Count 3.27L, Hemoglobin 9.8L, Hematocrit 29L, Mean Corpuscular Volume 88, Mean Corpuscular Hemoglobin 30, Mean Corpuscular Hemoglobin Concent 34, Red Cell Distribution Width 13.6, Platelet Count 168, Mean Platelet Volume 10.4, Sodium Level 137, Potassium Level 4.3, Chloride Level 107, Carbon Dioxide Level 25, Anion Gap 5, Blood Urea Nitrogen 19H, Creatinine 0.83, Estimat Glomerular Filtration Rate > 60, BUN/Creatinine Ratio 23, Glucose Level 91, Calcium Level 8.6, Neutrophils (%) (Auto) 89H, Lymphocytes (%) (Auto) 8L, Monocytes (%) (Auto) 4, Eosinophils (%) (Auto) 0, Basophils (%) (Auto) 0, Neutrophils # (Auto) 7.3, Lymphocytes # (Auto) 0.6L, Monocytes # (Auto) 0.3, Eosinophils # (Auto) 0.0, Basophils # (Auto) 0.0, Phosphorus Level 2.7, Magnesium Level 1.6L 07/24/18 06:40: White Blood Count 8.3, Red Blood Count 3.03L, Hemoglobin 9.0L, Hematocrit 27L, Mean Corpuscular Volume 88, Mean Corpuscular Hemoglobin 30, Mean Corpuscular Hemoglobin Concent 34, Red Cell Distribution Width 14.2, Platelet Count 173, Mean Platelet Volume 10.5H, Neutrophils (%) (Auto) 86H, Lymphocytes (%) (Auto) 10L, Monocytes (%) (Auto) 5, Eosinophils (%) (Auto) 0, Basophils (%) (Auto) 0, Neutrophils # (Auto) 7.1, Lymphocytes # (Auto) 0.8L, Monocytes # (Auto) 0.4, Eosinophils # (Auto) 0.0, Basophils # (Auto) 0.0, Sodium Level 136, Potassium Level 3.8, Chloride Level 106, Carbon Dioxide Level 22, Anion Gap 8, Blood Urea Nitrogen 19H, Creatinine 0.71, Estimat Glomerular Filtration Rate > 60, BUN/ Creatinine Ratio 27, Glucose Level 48*L, Calcium Level 8.1L, Magnesium Level 2.2 07/24/18 08:22: Glucometer 104 07/24/18 11:04: Glucometer 82 07/26/18 11:50: White Blood Count 8.5, Red Blood Count 2.78L, Hemoglobin 8.2L, Hematocrit 24L, Mean Corpuscular Volume 87, Mean Corpuscular Hemoglobin 29, Mean Corpuscular Hemoglobin Concent 34, Red Cell Distribution Width 14.3, Platelet Count 157, Mean Platelet Volume 10.4, Neutrophils (%) (Auto) 80H, Lymphocytes (%) (Auto) 9L , Monocytes (%) (Auto) 11, Eosinophils (%) (Auto) 0, Basophils (%) (Auto) 0, Neutrophils # (Auto) 6.9, Lymphocytes # (Auto) 0.8L, Monocytes # (Auto) 0.9, Eosinophils # (Auto) 0.0, Basophils # (Auto) 0.0, Sodium Level 142, Potassium Level 2.8L, Chloride Level 114H, Carbon Dioxide Level 23, Anion Gap 5, Blood Urea Nitrogen 7, Creatinine 0.64, Estimat Glomerular Filtration Rate > 60, BUN/ Creatinine Ratio 11, Glucose Level 130H, Calcium Level 7.9L 07/27/18 05:53: Sodium Level 144, Potassium Level 3.2L, Chloride Level 115H, Carbon Dioxide Level 21, Anion Gap 8, Blood Urea Nitrogen 6L, Creatinine 0.65, Estimat Glomerular Filtration Rate > 60, BUN/Creatinine Ratio 9, Glucose Level 116H, Calcium Level 7.8L 07/28/18 06:00: Sodium Level 143, Potassium Level 3.8, Chloride Level 115H, Carbon Dioxide Level 20L, Anion Gap 8, Blood Urea Nitrogen 10, Creatinine 0.64, Estimat Glomerular Filtration Rate > 60, BUN/Creatinine Ratio 16, Glucose Level 93, Calcium Level 8.4L 07/29/18 14:30: Sodium Level 142, Potassium Level 3.4L, Chloride Level 112H, Carbon Dioxide Level 22, Anion Gap 8, Blood Urea Nitrogen 11, Creatinine 0.64, Estimat Glomerular Filtration Rate > 60, BUN/Creatinine Ratio 17, Glucose Level 152H, Calcium Level 8.2L, White Blood Count 18.4H, Red Blood Count 2.52L, Hemoglobin 7.5L, Hematocrit 21L, Mean Corpuscular Volume 85, Mean Corpuscular Hemoglobin 30 , Mean Corpuscular Hemoglobin Concent 35, Red Cell Distribution Width 14.3, Platelet Count 274, Mean Platelet Volume 10.1, Corrected Calcium 9.6, Phosphorus Level 2.3, Magnesium Level 1.6L, Total Bilirubin 0.7, Aspartate Amino Transf (AST/SGOT) 8, Alanine Aminotransferase (ALT/SGPT) 6, Alkaline Phosphatase 129, Total Protein 4.7L, Albumin 2.3L, Prealbumin 4.8L, Triglycerides Level 88 07/29/18 17:58: Glucometer 141H 07/29/18 18:56: Blood Gas Puncture Site LEFT RADIAL, Blood Gas Patient Temperature 99.1, Arterial Blood pH 7.41, Arterial Blood Partial Pressure CO2 37, Arterial Blood Partial Pressure O2 114H, Arterial Blood HCO3 23, Arterial Blood Total CO2 24.1 , Arterial Blood Oxygen Saturation 99, Arterial Blood Base Excess -0.9, Brannon Test POSITIVE, Blood Gas Ventilator Setting NO, Blood Gas Inspired Oxygen 70% 07/29/18 19:00: White Blood Count 20.1H, Red Blood Count 2.72L, Hemoglobin 8.0L, Hematocrit 23L , Mean Corpuscular Volume 85, Mean Corpuscular Hemoglobin 29, Mean Corpuscular Hemoglobin Concent 35, Red Cell Distribution Width 14.4, Platelet Count 299, Mean Platelet Volume 10.3, Neutrophils (%) (Auto) 87H, Lymphocytes (%) (Auto) 7L , Monocytes (%) (Auto) 6, Eosinophils (%) (Auto) 0, Basophils (%) (Auto) 0, Neutrophils # (Auto) 17.5H, Lymphocytes # (Auto) 1.4, Monocytes # (Auto) 1.1H, Eosinophils # (Auto) 0.0, Basophils # (Auto) 0.0, Neutrophils % (Manual) 80, Lymphocytes % (Manual) 14, Monocytes % (Manual) 3, Eosinophils % (Manual) 0, Basophils % (Manual) 0, Band Neutrophils 3, Hypochromasia MODERATE, Target Cells SLIGHT, Sodium Level 147H, Potassium Level 3.1L, Chloride Level 113H, Carbon Dioxide Level 20L, Anion Gap 14, Blood Urea Nitrogen 10, Creatinine 0.67 , Estimat Glomerular Filtration Rate > 60, BUN/Creatinine Ratio 15, Glucose Level 154H, Calcium Level 7.8L 07/30/18 05:15: Sodium Level 145, Potassium Level 3.1L, Chloride Level 112H, Carbon Dioxide Level 26, Anion Gap 7, Blood Urea Nitrogen 11, Creatinine 0.71, Estimat Glomerular Filtration Rate > 60, BUN/Creatinine Ratio 15, Glucose Level 176H, Calcium Level 8.1L, Corrected Calcium 9.5, Phosphorus Level 2.2L, Magnesium Level 1.8, Total Bilirubin 0.6, Aspartate Amino Transf (AST/SGOT) 13, Alanine Aminotransferase (ALT/SGPT) 6, Alkaline Phosphatase 126, Total Protein 4.5L, Albumin 2.2L 07/30/18 23:36: Glucometer 174H 07/31/18 05:24: Glucometer 180H 07/31/18 06:35: White Blood Count 9.7, Red Blood Count 2.27L, Hemoglobin 6.7*L, Hematocrit 19*L , Mean Corpuscular Volume 85, Mean Corpuscular Hemoglobin 30, Mean Corpuscular Hemoglobin Concent 35, Red Cell Distribution Width 14.4, Platelet Count 352, Mean Platelet Volume 10.5H, Neutrophils (%) (Auto) 80H, Lymphocytes (%) (Auto) 10L, Monocytes (%) (Auto) 9, Eosinophils (%) (Auto) 1, Basophils (%) (Auto) 0, Neutrophils # (Auto) 7.8, Lymphocytes # (Auto) 1.0, Monocytes # (Auto) 0.9, Eosinophils # (Auto) 0.1, Basophils # (Auto) 0.0, Sodium Level 148H, Potassium Level 2.9L, Chloride Level 112H, Carbon Dioxide Level 25, Anion Gap 11, Blood Urea Nitrogen 15, Creatinine 0.68, Estimat Glomerular Filtration Rate > 60, BUN/ Creatinine Ratio 22, Glucose Level 171H, Calcium Level 8.0L, Corrected Calcium 9.3, Phosphorus Level 2.7, Magnesium Level 2.4, Total Bilirubin 0.7, Aspartate Amino Transf (AST/SGOT) 13, Alanine Aminotransferase (ALT/SGPT) 7, Alkaline Phosphatase 148H, Total Protein 4.8L, Albumin 2.4L 07/31/18 07:50: Hemoglobin 7.1L, Hematocrit 21L 07/31/18 11:12: Glucometer 204H 07/31/18 16:15: Hemoglobin 7.2L, Hematocrit 21L 07/31/18 18:21: Glucometer 178H 07/31/18 23:58: Glucometer 175H 08/01/18 06:16: Glucometer 160H 08/01/18 10:05: White Blood Count 12.3H, Red Blood Count 2.72L, Hemoglobin 7.7L, Hematocrit 23L , Mean Corpuscular Volume 86, Mean Corpuscular Hemoglobin 28, Mean Corpuscular Hemoglobin Concent 33, Red Cell Distribution Width 14.6H, Platelet Count 468H, Mean Platelet Volume 10.2, Neutrophils (%) (Auto) 80H, Lymphocytes (%) (Auto) 11L, Monocytes (%) (Auto) 7, Eosinophils (%) (Auto) 2, Basophils (%) (Auto) 0, Neutrophils # (Auto) 9.8H, Lymphocytes # (Auto) 1.3, Monocytes # (Auto) 0.9, Eosinophils # (Auto) 0.2, Basophils # (Auto) 0.1, Sodium Level 144, Potassium Level 3.2L, Chloride Level 109H, Carbon Dioxide Level 25, Anion Gap 10, Blood Urea Nitrogen 17, Creatinine 0.72, Estimat Glomerular Filtration Rate > 60, BUN/ Creatinine Ratio 24, Glucose Level 191H, Calcium Level 8.3L, Corrected Calcium 9.4, Total Bilirubin 0.8, Aspartate Amino Transf (AST/SGOT) 22, Alanine Aminotransferase (ALT/SGPT) 14, Alkaline Phosphatase 206H, Total Protein 5.5L, Albumin 2.6L 08/01/18 12:37: Glucometer 187H 08/01/18 18:16: Glucometer 194H 08/01/18 23:25: Glucometer 174H 08/02/18 05:11: White Blood Count 13.5H, Red Blood Count 2.60L, Hemoglobin 7.5L, Hematocrit 22L , Mean Corpuscular Volume 85, Mean Corpuscular Hemoglobin 29, Mean Corpuscular Hemoglobin Concent 34, Red Cell Distribution Width 14.6H, Platelet Count 487H, Mean Platelet Volume 10.6H, Neutrophils (%) (Auto) 77H, Lymphocytes (%) (Auto) 13, Monocytes (%) (Auto) 8, Eosinophils (%) (Auto) 2, Basophils (%) (Auto) 0, Neutrophils # (Auto) 10.4H, Lymphocytes # (Auto) 1.7, Monocytes # (Auto) 1.1H, Eosinophils # (Auto) 0.2, Basophils # (Auto) 0.0, Sodium Level 144, Potassium Level 3.1L, Chloride Level 109H, Carbon Dioxide Level 24, Anion Gap 11, Blood Urea Nitrogen 18, Creatinine 0.73, Estimat Glomerular Filtration Rate > 60, BUN/ Creatinine Ratio 25, Glucose Level 156H, Calcium Level 8.4L, Corrected Calcium 9.5, Total Bilirubin 1.0, Aspartate Amino Transf (AST/SGOT) 36H, Alanine Aminotransferase (ALT/SGPT) 26, Alkaline Phosphatase 211H, Total Protein 5.5L, Albumin 2.6L 08/02/18 05:27: Glucometer 170H 08/02/18 11:58: Glucometer 185H 08/02/18 18:26: Glucometer 149H 08/02/18 23:00: Random Gentamicin Level 5.2 08/02/18 23:27: Glucometer 124H 08/03/18 05:26: White Blood Count 10.9, Red Blood Count 2.55L, Hemoglobin 7.2L, Hematocrit 23L, Mean Corpuscular Volume 88, Mean Corpuscular Hemoglobin 28, Mean Corpuscular Hemoglobin Concent 32, Red Cell Distribution Width 15.3H, Platelet Count 531H, Mean Platelet Volume 10.6H, Neutrophils (%) (Auto) 76H, Lymphocytes (%) (Auto) 13, Monocytes (%) (Auto) 8, Eosinophils (%) (Auto) 2, Basophils (%) (Auto) 0, Neutrophils # (Auto) 8.3H, Lymphocytes # (Auto) 1.4, Monocytes # (Auto) 0.9, Eosinophils # (Auto) 0.3, Basophils # (Auto) 0.0, Sodium Level 142, Potassium Level 3.6, Chloride Level 107, Carbon Dioxide Level 25, Anion Gap 10, Blood Urea Nitrogen 19H, Creatinine 0.77, Estimat Glomerular Filtration Rate > 60, BUN /Creatinine Ratio 25, Glucose Level 137H, Calcium Level 8.6, Corrected Calcium 9.6, Total Bilirubin 0.7, Aspartate Amino Transf (AST/SGOT) 31, Alanine Aminotransferase (ALT/SGPT) 31, Alkaline Phosphatase 205H, Total Protein 5.8L, Albumin 2.7L, Prealbumin 14.3L, Triglycerides Level 169H 08/03/18 17:49: Glucometer 135H 08/04/18 00:27: Glucometer 138H 08/04/18 06:12: Glucometer 159H 08/05/18 04:22: White Blood Count 10.7, Red Blood Count 3.81L, Hemoglobin 10.7#L, Hematocrit 33L , Mean Corpuscular Volume 85, Mean Corpuscular Hemoglobin 28, Mean Corpuscular Hemoglobin Concent 33, Red Cell Distribution Width 16.4H, Platelet Count 464H, Mean Platelet Volume 10.4, Sodium Level 136, Potassium Level 5.0, Chloride Level 110H, Carbon Dioxide Level 21, Anion Gap 5, Blood Urea Nitrogen 18, Creatinine 0.78, Estimat Glomerular Filtration Rate > 60, BUN/Creatinine Ratio 23, Glucose Level 110H, Calcium Level 8.9, Corrected Calcium 10.0, Phosphorus Level 3.0, Magnesium Level 2.2, Total Bilirubin 1.8H, Aspartate Amino Transf ( AST/SGOT) 59H, Alanine Aminotransferase (ALT/SGPT) 71H, Alkaline Phosphatase 263H, Total Protein 6.0L, Albumin 2.6L, Prealbumin 16.8L, Triglycerides Level 119 08/05/18 17:15: Glucometer 114H 08/06/18 05:17: Glucometer 123H 08/06/18 09:10: White Blood Count 10.3, Red Blood Count 3.17L, Hemoglobin 9.1L, Hematocrit 27L, Mean Corpuscular Volume 86, Mean Corpuscular Hemoglobin 29, Mean Corpuscular Hemoglobin Concent 33, Red Cell Distribution Width 16.0H, Platelet Count 431H, Mean Platelet Volume 10.0, Neutrophils (%) (Auto) 72, Lymphocytes (%) (Auto) 16 , Monocytes (%) (Auto) 9, Eosinophils (%) (Auto) 2, Basophils (%) (Auto) 1, Neutrophils # (Auto) 7.4, Lymphocytes # (Auto) 1.6, Monocytes # (Auto) 1.0, Eosinophils # (Auto) 0.3, Basophils # (Auto) 0.1, Sodium Level 133L, Potassium Level 4.7, Chloride Level 109H, Carbon Dioxide Level 19L, Anion Gap 5, Blood Urea Nitrogen 19H, Creatinine 0.70, Estimat Glomerular Filtration Rate > 60, BUN /Creatinine Ratio 27, Glucose Level 124H, Calcium Level 8.8, Corrected Calcium 10.1, Total Bilirubin 0.7, Aspartate Amino Transf (AST/SGOT) 35H, Alanine Aminotransferase (ALT/SGPT) 61H, Alkaline Phosphatase 235H, Total Protein 5.3L, Albumin 2.4L 08/07/18 05:23: Glucometer 134H 08/08/18 05:53: Glucometer 124H 08/08/18 06:10: White Blood Count 10.9, Red Blood Count 2.99L, Hemoglobin 8.5L, Hematocrit 26L, Mean Corpuscular Volume 88, Mean Corpuscular Hemoglobin 28, Mean Corpuscular Hemoglobin Concent 32, Red Cell Distribution Width 15.1H, Platelet Count 432H, Mean Platelet Volume 10.3, Neutrophils (%) (Auto) 78H, Lymphocytes (%) (Auto) 13 , Monocytes (%) (Auto) 7, Eosinophils (%) (Auto) 2, Basophils (%) (Auto) 0, Neutrophils # (Auto) 8.5H, Lymphocytes # (Auto) 1.4, Monocytes # (Auto) 0.8, Eosinophils # (Auto) 0.2, Basophils # (Auto) 0.0, Sodium Level 138, Potassium Level 3.7, Chloride Level 108H, Carbon Dioxide Level 22, Anion Gap 8, Blood Urea Nitrogen 20H, Creatinine 0.68, Estimat Glomerular Filtration Rate > 60, BUN /Creatinine Ratio 29, Glucose Level 125H, Calcium Level 8.5, Corrected Calcium 9.9, Total Bilirubin 0.5, Aspartate Amino Transf (AST/SGOT) 32, Alanine Aminotransferase (ALT/SGPT) 53, Alkaline Phosphatase 259H, Total Protein 5.5L, Albumin 2.3L 08/09/18 05:34: Glucometer 119H 08/09/18 11:59: Lab Scanned Report Transfusion Reaction Form 08/10/18 05:46: Glucometer 127H 08/11/18 06:15: Glucometer 135H 08/12/18 05:04: Glucometer 127H 08/12/18 09:05: White Blood Count 10.2, Red Blood Count 3.10L, Hemoglobin 8.8L, Hematocrit 27L, Mean Corpuscular Volume 88, Mean Corpuscular Hemoglobin 28, Mean Corpuscular Hemoglobin Concent 32, Red Cell Distribution Width 14.9H, Platelet Count 381, Mean Platelet Volume 10.2, Neutrophils (%) (Auto) 76H, Lymphocytes (%) (Auto) 16 , Monocytes (%) (Auto) 6, Eosinophils (%) (Auto) 2, Basophils (%) (Auto) 0, Neutrophils # (Auto) 7.8, Lymphocytes # (Auto) 1.6, Monocytes # (Auto) 0.6, Eosinophils # (Auto) 0.2, Basophils # (Auto) 0.0, Sodium Level 137, Potassium Level 3.7, Chloride Level 103, Carbon Dioxide Level 26, Anion Gap 8, Blood Urea Nitrogen 18, Creatinine 0.62, Estimat Glomerular Filtration Rate > 60, BUN/ Creatinine Ratio 29, Glucose Level 113H, Calcium Level 8.6, Corrected Calcium 9.9, Phosphorus Level 3.4, Magnesium Level 1.9, Total Bilirubin 0.4, Aspartate Amino Transf (AST/SGOT) 20, Alanine Aminotransferase (ALT/SGPT) 34, Alkaline Phosphatase 166H, Total Protein 5.7L, Albumin 2.4L, Triglycerides Level 67 08/13/18 05:34: Glucometer 118H Microbiology 07/30/18 Gram Stain - Final, Complete 07/30/18 Wound Culture - Final, Complete Pseudomonas aeruginosa Escherichia coli Pending Labs Microbiology Date/Time Source Procedure Growth Status 07/30/18 05:18 Incision Abdomen Gram Stain - Final Complete 07/30/18 05:18 Wound Culture - Final Pseudomonas aeruginosa Escherichia coli Complete Laboratory Tests 07/21/18 05:54: Lab Scanned Report Referred Lab Report 07/21/18 14:43: White Blood Count 8.8, Red Blood Count 3.93, Hemoglobin 11.6, Hematocrit 35, Mean Corpuscular Volume 89, Mean Corpuscular Hemoglobin 30, Mean Corpuscular Hemoglobin Concent 33, Red Cell Distribution Width 13.2, Platelet Count 232, Mean Platelet Volume 10.0, Sodium Level 137, Potassium Level 3.9, Chloride Level 107, Carbon Dioxide Level 24, Anion Gap 6, Blood Urea Nitrogen 15, Creatinine 1.00, Estimat Glomerular Filtration Rate 57, BUN/Creatinine Ratio 15 , Glucose Level 229, Calcium Level 8.2 07/22/18 03:43: White Blood Count 8.4, Red Blood Count 3.59, Hemoglobin 10.5, Hematocrit 32, Mean Corpuscular Volume 88, Mean Corpuscular Hemoglobin 29, Mean Corpuscular Hemoglobin Concent 33, Red Cell Distribution Width 13.2, Platelet Count 198, Mean Platelet Volume 9.8, Sodium Level 135, Potassium Level 4.4, Chloride Level 106, Carbon Dioxide Level 22, Anion Gap 7, Blood Urea Nitrogen 18, Creatinine 1.01, Estimat Glomerular Filtration Rate 56, BUN/Creatinine Ratio 18, Glucose Level 214, Calcium Level 7.8, Neutrophils (%) (Auto) 89, Lymphocytes (%) (Auto) 5, Monocytes (%) (Auto) 6, Eosinophils (%) (Auto) 0, Basophils (%) (Auto) 0, Neutrophils # (Auto) 7.5, Lymphocytes # (Auto) 0.4, Monocytes # (Auto) 0.5, Eosinophils # (Auto) 0.0, Basophils # (Auto) 0.0, Corrected Calcium 8.6, Phosphorus Level 4.0, Magnesium Level 1.8, Total Bilirubin 0.5, Aspartate Amino Transf (AST/SGOT) 55, Alanine Aminotransferase (ALT/SGPT) 63, Alkaline Phosphatase 85, Total Protein 4.5, Albumin 3.0 07/23/18 03:47: White Blood Count 8.2, Red Blood Count 3.27, Hemoglobin 9.8, Hematocrit 29, Mean Corpuscular Volume 88, Mean Corpuscular Hemoglobin 30, Mean Corpuscular Hemoglobin Concent 34, Red Cell Distribution Width 13.6, Platelet Count 168, Mean Platelet Volume 10.4, Sodium Level 137, Potassium Level 4.3, Chloride Level 107, Carbon Dioxide Level 25, Anion Gap 5, Blood Urea Nitrogen 19, Creatinine 0.83, Estimat Glomerular Filtration Rate > 60, BUN/Creatinine Ratio 23, Glucose Level 91, Calcium Level 8.6, Neutrophils (%) (Auto) 89, Lymphocytes (%) (Auto) 8, Monocytes (%) (Auto) 4, Eosinophils (%) (Auto) 0, Basophils (%) ( Auto) 0, Neutrophils # (Auto) 7.3, Lymphocytes # (Auto) 0.6, Monocytes # (Auto) 0.3, Eosinophils # (Auto) 0.0, Basophils # (Auto) 0.0, Phosphorus Level 2.7, Magnesium Level 1.6 07/24/18 06:40: White Blood Count 8.3, Red Blood Count 3.03, Hemoglobin 9.0, Hematocrit 27, Mean Corpuscular Volume 88, Mean Corpuscular Hemoglobin 30, Mean Corpuscular Hemoglobin Concent 34, Red Cell Distribution Width 14.2, Platelet Count 173, Mean Platelet Volume 10.5, Neutrophils (%) (Auto) 86, Lymphocytes (%) (Auto) 10 , Monocytes (%) (Auto) 5, Eosinophils (%) (Auto) 0, Basophils (%) (Auto) 0, Neutrophils # (Auto) 7.1, Lymphocytes # (Auto) 0.8, Monocytes # (Auto) 0.4, Eosinophils # (Auto) 0.0, Basophils # (Auto) 0.0, Sodium Level 136, Potassium Level 3.8, Chloride Level 106, Carbon Dioxide Level 22, Anion Gap 8, Blood Urea Nitrogen 19, Creatinine 0.71, Estimat Glomerular Filtration Rate > 60, BUN/ Creatinine Ratio 27, Glucose Level 48, Calcium Level 8.1, Magnesium Level 2.2 07/24/18 08:22: Glucometer 104 07/24/18 11:04: Glucometer 82 07/26/18 11:50: White Blood Count 8.5, Red Blood Count 2.78, Hemoglobin 8.2, Hematocrit 24, Mean Corpuscular Volume 87, Mean Corpuscular Hemoglobin 29, Mean Corpuscular Hemoglobin Concent 34, Red Cell Distribution Width 14.3, Platelet Count 157, Mean Platelet Volume 10.4, Neutrophils (%) (Auto) 80, Lymphocytes (%) (Auto) 9, Monocytes (%) (Auto) 11, Eosinophils (%) (Auto) 0, Basophils (%) (Auto) 0, Neutrophils # (Auto) 6.9, Lymphocytes # (Auto) 0.8, Monocytes # (Auto) 0.9, Eosinophils # (Auto) 0.0, Basophils # (Auto) 0.0, Sodium Level 142, Potassium Level 2.8, Chloride Level 114, Carbon Dioxide Level 23, Anion Gap 5, Blood Urea Nitrogen 7, Creatinine 0.64, Estimat Glomerular Filtration Rate > 60, BUN/ Creatinine Ratio 11, Glucose Level 130, Calcium Level 7.9 07/27/18 05:53: Sodium Level 144, Potassium Level 3.2, Chloride Level 115, Carbon Dioxide Level 21, Anion Gap 8, Blood Urea Nitrogen 6, Creatinine 0.65, Estimat Glomerular Filtration Rate > 60, BUN/Creatinine Ratio 9, Glucose Level 116, Calcium Level 7.8 07/28/18 06:00: Sodium Level 143, Potassium Level 3.8, Chloride Level 115, Carbon Dioxide Level 20, Anion Gap 8, Blood Urea Nitrogen 10, Creatinine 0.64, Estimat Glomerular Filtration Rate > 60, BUN/Creatinine Ratio 16, Glucose Level 93, Calcium Level 8.4 07/29/18 14:30: Sodium Level 142, Potassium Level 3.4, Chloride Level 112, Carbon Dioxide Level 22, Anion Gap 8, Blood Urea Nitrogen 11, Creatinine 0.64, Estimat Glomerular Filtration Rate > 60, BUN/Creatinine Ratio 17, Glucose Level 152, Calcium Level 8.2, White Blood Count 18.4, Red Blood Count 2.52, Hemoglobin 7.5, Hematocrit 21 , Mean Corpuscular Volume 85, Mean Corpuscular Hemoglobin 30, Mean Corpuscular Hemoglobin Concent 35, Red Cell Distribution Width 14.3, Platelet Count 274, Mean Platelet Volume 10.1, Corrected Calcium 9.6, Phosphorus Level 2.3, Magnesium Level 1.6, Total Bilirubin 0.7, Aspartate Amino Transf (AST/SGOT) 8, Alanine Aminotransferase (ALT/SGPT) 6, Alkaline Phosphatase 129, Total Protein 4.7, Albumin 2.3, Prealbumin 4.8, Triglycerides Level 88 07/29/18 17:58: Glucometer 141 07/29/18 18:56: Blood Gas Puncture Site LEFT RADIAL, Blood Gas Patient Temperature 99.1, Arterial Blood pH 7.41, Arterial Blood Partial Pressure CO2 37, Arterial Blood Partial Pressure O2 114, Arterial Blood HCO3 23, Arterial Blood Total CO2 24.1, Arterial Blood Oxygen Saturation 99, Arterial Blood Base Excess -0.9, Brannon Test POSITIVE, Blood Gas Ventilator Setting NO, Blood Gas Inspired Oxygen 70% 07/29/18 19:00: White Blood Count 20.1, Red Blood Count 2.72, Hemoglobin 8.0, Hematocrit 23, Mean Corpuscular Volume 85, Mean Corpuscular Hemoglobin 29, Mean Corpuscular Hemoglobin Concent 35, Red Cell Distribution Width 14.4, Platelet Count 299, Mean Platelet Volume 10.3, Neutrophils (%) (Auto) 87, Lymphocytes (%) (Auto) 7, Monocytes (%) (Auto) 6, Eosinophils (%) (Auto) 0, Basophils (%) (Auto) 0, Neutrophils # (Auto) 17.5, Lymphocytes # (Auto) 1.4, Monocytes # (Auto) 1.1, Eosinophils # (Auto) 0.0, Basophils # (Auto) 0.0, Neutrophils % (Manual) 80, Lymphocytes % (Manual) 14, Monocytes % (Manual) 3, Eosinophils % (Manual) 0, Basophils % (Manual) 0, Band Neutrophils 3, Hypochromasia MODERATE, Target Cells SLIGHT, Sodium Level 147, Potassium Level 3.1, Chloride Level 113, Carbon Dioxide Level 20, Anion Gap 14, Blood Urea Nitrogen 10, Creatinine 0.67, Estimat Glomerular Filtration Rate > 60, BUN/Creatinine Ratio 15, Glucose Level 154, Calcium Level 7.8 07/30/18 05:15: Sodium Level 145, Potassium Level 3.1, Chloride Level 112, Carbon Dioxide Level 26, Anion Gap 7, Blood Urea Nitrogen 11, Creatinine 0.71, Estimat Glomerular Filtration Rate > 60, BUN/Creatinine Ratio 15, Glucose Level 176, Calcium Level 8.1, Corrected Calcium 9.5, Phosphorus Level 2.2, Magnesium Level 1.8, Total Bilirubin 0.6, Aspartate Amino Transf (AST/SGOT) 13, Alanine Aminotransferase ( ALT/SGPT) 6, Alkaline Phosphatase 126, Total Protein 4.5, Albumin 2.2 07/30/18 23:36: Glucometer 174 07/31/18 05:24: Glucometer 180 07/31/18 06:35: White Blood Count 9.7, Red Blood Count 2.27, Hemoglobin 6.7, Hematocrit 19, Mean Corpuscular Volume 85, Mean Corpuscular Hemoglobin 30, Mean Corpuscular Hemoglobin Concent 35, Red Cell Distribution Width 14.4, Platelet Count 352, Mean Platelet Volume 10.5, Neutrophils (%) (Auto) 80, Lymphocytes (%) (Auto) 10 , Monocytes (%) (Auto) 9, Eosinophils (%) (Auto) 1, Basophils (%) (Auto) 0, Neutrophils # (Auto) 7.8, Lymphocytes # (Auto) 1.0, Monocytes # (Auto) 0.9, Eosinophils # (Auto) 0.1, Basophils # (Auto) 0.0, Sodium Level 148, Potassium Level 2.9, Chloride Level 112, Carbon Dioxide Level 25, Anion Gap 11, Blood Urea Nitrogen 15, Creatinine 0.68, Estimat Glomerular Filtration Rate > 60, BUN/ Creatinine Ratio 22, Glucose Level 171, Calcium Level 8.0, Corrected Calcium 9.3 , Phosphorus Level 2.7, Magnesium Level 2.4, Total Bilirubin 0.7, Aspartate Amino Transf (AST/SGOT) 13, Alanine Aminotransferase (ALT/SGPT) 7, Alkaline Phosphatase 148, Total Protein 4.8, Albumin 2.4 07/31/18 07:50: Hemoglobin 7.1, Hematocrit 21 07/31/18 11:12: Glucometer 204 07/31/18 16:15: Hemoglobin 7.2, Hematocrit 21 07/31/18 18:21: Glucometer 178 07/31/18 23:58: Glucometer 175 08/01/18 06:16: Glucometer 160 08/01/18 10:05: White Blood Count 12.3, Red Blood Count 2.72, Hemoglobin 7.7, Hematocrit 23, Mean Corpuscular Volume 86, Mean Corpuscular Hemoglobin 28, Mean Corpuscular Hemoglobin Concent 33, Red Cell Distribution Width 14.6, Platelet Count 468, Mean Platelet Volume 10.2, Neutrophils (%) (Auto) 80, Lymphocytes (%) (Auto) 11 , Monocytes (%) (Auto) 7, Eosinophils (%) (Auto) 2, Basophils (%) (Auto) 0, Neutrophils # (Auto) 9.8, Lymphocytes # (Auto) 1.3, Monocytes # (Auto) 0.9, Eosinophils # (Auto) 0.2, Basophils # (Auto) 0.1, Sodium Level 144, Potassium Level 3.2, Chloride Level 109, Carbon Dioxide Level 25, Anion Gap 10, Blood Urea Nitrogen 17, Creatinine 0.72, Estimat Glomerular Filtration Rate > 60, BUN/ Creatinine Ratio 24, Glucose Level 191, Calcium Level 8.3, Corrected Calcium 9.4 , Total Bilirubin 0.8, Aspartate Amino Transf (AST/SGOT) 22, Alanine Aminotransferase (ALT/SGPT) 14, Alkaline Phosphatase 206, Total Protein 5.5, Albumin 2.6 08/01/18 12:37: Glucometer 187 08/01/18 18:16: Glucometer 194 08/01/18 23:25: Glucometer 174 08/02/18 05:11: White Blood Count 13.5, Red Blood Count 2.60, Hemoglobin 7.5, Hematocrit 22, Mean Corpuscular Volume 85, Mean Corpuscular Hemoglobin 29, Mean Corpuscular Hemoglobin Concent 34, Red Cell Distribution Width 14.6, Platelet Count 487, Mean Platelet Volume 10.6, Neutrophils (%) (Auto) 77, Lymphocytes (%) (Auto) 13 , Monocytes (%) (Auto) 8, Eosinophils (%) (Auto) 2, Basophils (%) (Auto) 0, Neutrophils # (Auto) 10.4, Lymphocytes # (Auto) 1.7, Monocytes # (Auto) 1.1, Eosinophils # (Auto) 0.2, Basophils # (Auto) 0.0, Sodium Level 144, Potassium Level 3.1, Chloride Level 109, Carbon Dioxide Level 24, Anion Gap 11, Blood Urea Nitrogen 18, Creatinine 0.73, Estimat Glomerular Filtration Rate > 60, BUN/ Creatinine Ratio 25, Glucose Level 156, Calcium Level 8.4, Corrected Calcium 9.5 , Total Bilirubin 1.0, Aspartate Amino Transf (AST/SGOT) 36, Alanine Aminotransferase (ALT/SGPT) 26, Alkaline Phosphatase 211, Total Protein 5.5, Albumin 2.6 08/02/18 05:27: Glucometer 170 08/02/18 11:58: Glucometer 185 08/02/18 18:26: Glucometer 149 08/02/18 23:00: Random Gentamicin Level 5.2 08/02/18 23:27: Glucometer 124 08/03/18 05:26: White Blood Count 10.9, Red Blood Count 2.55, Hemoglobin 7.2, Hematocrit 23, Mean Corpuscular Volume 88, Mean Corpuscular Hemoglobin 28, Mean Corpuscular Hemoglobin Concent 32, Red Cell Distribution Width 15.3, Platelet Count 531, Mean Platelet Volume 10.6, Neutrophils (%) (Auto) 76, Lymphocytes (%) (Auto) 13 , Monocytes (%) (Auto) 8, Eosinophils (%) (Auto) 2, Basophils (%) (Auto) 0, Neutrophils # (Auto) 8.3, Lymphocytes # (Auto) 1.4, Monocytes # (Auto) 0.9, Eosinophils # (Auto) 0.3, Basophils # (Auto) 0.0, Sodium Level 142, Potassium Level 3.6, Chloride Level 107, Carbon Dioxide Level 25, Anion Gap 10, Blood Urea Nitrogen 19, Creatinine 0.77, Estimat Glomerular Filtration Rate > 60, BUN/ Creatinine Ratio 25, Glucose Level 137, Calcium Level 8.6, Corrected Calcium 9.6 , Total Bilirubin 0.7, Aspartate Amino Transf (AST/SGOT) 31, Alanine Aminotransferase (ALT/SGPT) 31, Alkaline Phosphatase 205, Total Protein 5.8, Albumin 2.7, Prealbumin 14.3, Triglycerides Level 169 08/03/18 17:49: Glucometer 135 08/04/18 00:27: Glucometer 138 08/04/18 06:12: Glucometer 159 08/05/18 04:22: White Blood Count 10.7, Red Blood Count 3.81, Hemoglobin 10.7, Hematocrit 33, Mean Corpuscular Volume 85, Mean Corpuscular Hemoglobin 28, Mean Corpuscular Hemoglobin Concent 33, Red Cell Distribution Width 16.4, Platelet Count 464, Mean Platelet Volume 10.4, Sodium Level 136, Potassium Level 5.0, Chloride Level 110, Carbon Dioxide Level 21, Anion Gap 5, Blood Urea Nitrogen 18, Creatinine 0.78, Estimat Glomerular Filtration Rate > 60, BUN/Creatinine Ratio 23, Glucose Level 110, Calcium Level 8.9, Corrected Calcium 10.0, Phosphorus Level 3.0, Magnesium Level 2.2, Total Bilirubin 1.8, Aspartate Amino Transf (AST /SGOT) 59, Alanine Aminotransferase (ALT/SGPT) 71, Alkaline Phosphatase 263, Total Protein 6.0, Albumin 2.6, Prealbumin 16.8, Triglycerides Level 119 08/05/18 17:15: Glucometer 114 08/06/18 05:17: Glucometer 123 08/06/18 09:10: White Blood Count 10.3, Red Blood Count 3.17, Hemoglobin 9.1, Hematocrit 27, Mean Corpuscular Volume 86, Mean Corpuscular Hemoglobin 29, Mean Corpuscular Hemoglobin Concent 33, Red Cell Distribution Width 16.0, Platelet Count 431, Mean Platelet Volume 10.0, Neutrophils (%) (Auto) 72, Lymphocytes (%) (Auto) 16 , Monocytes (%) (Auto) 9, Eosinophils (%) (Auto) 2, Basophils (%) (Auto) 1, Neutrophils # (Auto) 7.4, Lymphocytes # (Auto) 1.6, Monocytes # (Auto) 1.0, Eosinophils # (Auto) 0.3, Basophils # (Auto) 0.1, Sodium Level 133, Potassium Level 4.7, Chloride Level 109, Carbon Dioxide Level 19, Anion Gap 5, Blood Urea Nitrogen 19, Creatinine 0.70, Estimat Glomerular Filtration Rate > 60, BUN/ Creatinine Ratio 27, Glucose Level 124, Calcium Level 8.8, Corrected Calcium 10.1, Total Bilirubin 0.7, Aspartate Amino Transf (AST/SGOT) 35, Alanine Aminotransferase (ALT/SGPT) 61, Alkaline Phosphatase 235, Total Protein 5.3, Albumin 2.4 08/07/18 05:23: Glucometer 134 08/08/18 05:53: Glucometer 124 08/08/18 06:10: White Blood Count 10.9, Red Blood Count 2.99, Hemoglobin 8.5, Hematocrit 26, Mean Corpuscular Volume 88, Mean Corpuscular Hemoglobin 28, Mean Corpuscular Hemoglobin Concent 32, Red Cell Distribution Width 15.1, Platelet Count 432, Mean Platelet Volume 10.3, Neutrophils (%) (Auto) 78, Lymphocytes (%) (Auto) 13 , Monocytes (%) (Auto) 7, Eosinophils (%) (Auto) 2, Basophils (%) (Auto) 0, Neutrophils # (Auto) 8.5, Lymphocytes # (Auto) 1.4, Monocytes # (Auto) 0.8, Eosinophils # (Auto) 0.2, Basophils # (Auto) 0.0, Sodium Level 138, Potassium Level 3.7, Chloride Level 108, Carbon Dioxide Level 22, Anion Gap 8, Blood Urea Nitrogen 20, Creatinine 0.68, Estimat Glomerular Filtration Rate > 60, BUN/ Creatinine Ratio 29, Glucose Level 125, Calcium Level 8.5, Corrected Calcium 9.9 , Total Bilirubin 0.5, Aspartate Amino Transf (AST/SGOT) 32, Alanine Aminotransferase (ALT/SGPT) 53, Alkaline Phosphatase 259, Total Protein 5.5, Albumin 2.3 08/09/18 05:34: Glucometer 119 08/09/18 11:59: Lab Scanned Report Transfusion Reaction Form 08/10/18 05:46: Glucometer 127 08/11/18 06:15: Glucometer 135 08/12/18 05:04: Glucometer 127 08/12/18 09:05: White Blood Count 10.2, Red Blood Count 3.10, Hemoglobin 8.8, Hematocrit 27, Mean Corpuscular Volume 88, Mean Corpuscular Hemoglobin 28, Mean Corpuscular Hemoglobin Concent 32, Red Cell Distribution Width 14.9, Platelet Count 381, Mean Platelet Volume 10.2, Neutrophils (%) (Auto) 76, Lymphocytes (%) (Auto) 16 , Monocytes (%) (Auto) 6, Eosinophils (%) (Auto) 2, Basophils (%) (Auto) 0, Neutrophils # (Auto) 7.8, Lymphocytes # (Auto) 1.6, Monocytes # (Auto) 0.6, Eosinophils # (Auto) 0.2, Basophils # (Auto) 0.0, Sodium Level 137, Potassium Level 3.7, Chloride Level 103, Carbon Dioxide Level 26, Anion Gap 8, Blood Urea Nitrogen 18, Creatinine 0.62, Estimat Glomerular Filtration Rate > 60, BUN/ Creatinine Ratio 29, Glucose Level 113, Calcium Level 8.6, Corrected Calcium 9.9 , Phosphorus Level 3.4, Magnesium Level 1.9, Total Bilirubin 0.4, Aspartate Amino Transf (AST/SGOT) 20, Alanine Aminotransferase (ALT/SGPT) 34, Alkaline Phosphatase 166, Total Protein 5.7, Albumin 2.4, Triglycerides Level 67 08/13/18 05:34: Glucometer 118 Discharge Home Medications: Active Scripts Active Hydrocodone/Acetaminophen 5/325mg Tablet (Acetaminophen/Hydrocodone Bitart) 1 Tab Tab 1 Tab PO Q6H PRN MDD 10 Reported Propafenone HCl 225 Mg Tablet 225 Mg PO TID Senokot (Sennosides) 8.6 Mg Tablet 2 Tab PO BID Terazosin HCl 1 Mg Capsule 1 Mg PO BID Levothyroxine Sodium 100 Mcg Tablet 100 Mcg PO DAILY Simvastatin 20 Mg Tablet 20 Mg PO HS Eemt Ds 1.25-2.5 mg Tablet (Estrogen,Lilia/Me-Testosterone) 1 Each Tablet 1 Tab PO HS Amlodipine Besylate 5 Mg Tablet 10 Mg PO DAILY TAKES 2 (5MG) TABLETS Benicar (Olmesartan Medoxomil) 40 Mg Tablet 20 Mg PO DAILY TAKES 1/2 (40MG) TABLET Magnesium (Magnesium Oxide) 400 Mg Capsule 400 Mg PO HS Instructions to patient/family Please see electronic discharge instructions given to patient. MACY TALAVERA MD Aug 13, 2018 11:26
[2018-08-13] MEDS ORDERED: OXYC1TAB87 PO (11:51)
[2018-08-13] MEDS ORDERED: tpn (12:08)
--- NOTE | 2018-08-16 14:25 | Physician Query Clarification ---
PQ-Debridement Admission/Discharge Admission Date: Jul 21, 2018 at 05:54 Discharge Date: Aug 13, 2018 at 14:25 PHYSICIAN RESPONSE QUESTION: Please clarify the depth of the debridement. Please clarify if the debridement was excisional or non-excisional. PQ Debridement : Date of debridement: Aug 09, 2018 Level: Subcutaneous Tissue Type: Non-excisional In responding to this query, please exercise your independent professional judgment. The purpose of this communication is to more accurately reflect the complexity of your patients condition. The fact that a question is asked does not imply that any particular answer is desired or expected. Thank you for your timely response to this clarification. Requestors name: Cherry Pabon THIS PHYSICIAN QUERY FORM IS A PERMANENT PART OF THE MEDICAL RECORD ELVA PABON Aug 16, 2018 14:25 MACY TALAVERA MD Aug 17, 2018 08:36
== END 2018-08-13 14:25 | disposition home health service (06) | DRG 857 ==
LOC: 4TH 07-21 05:54 → SURG 07-21 05:55 → ICU 07-21 15:10 → 4TH 07-23 16:40
PROVIDERS: ADMIT Surgery; ATTEND Surgery
PROC: 0DTE0ZZ Resection of Large Intestine, Open Approach (ICD-10-PCS; principal; 2018-07-21 08:05)
PROC: 0DQ80ZZ Repair Small Intestine, Open Approach (ICD-10-PCS; 2018-07-21 08:05)
PROC: 0J983ZZ Drainage of Abdomen Subcutaneous Tissue and Fascia, Percutaneous Approach (ICD-10-PCS; 2018-08-09)
DX: T81.4XXA Infection following a procedure, initial encounter (principal); E46 Unspecified protein-calorie malnutrition; K91.89 Other postprocedural complications and disorders of digestive system; K56.7 Ileus, unspecified; K94.02 Colostomy infection; K63.2 Fistula of intestine; J98.11 Atelectasis; Z53.31 Laparoscopic surgical procedure converted to open procedure; R06.03 Acute respiratory distress; E16.2 Hypoglycemia, unspecified; E87.6 Hypokalemia; D63.8 Anemia in other chronic diseases classified elsewhere; F41.0 Panic disorder [episodic paroxysmal anxiety]; I34.1 Nonrheumatic mitral (valve) prolapse; I10 Essential (primary) hypertension; F43.21 Adjustment disorder with depressed mood; M19.91 Primary osteoarthritis, unspecified site; E89.0 Postprocedural hypothyroidism; R74.8 Abnormal levels of other serum enzymes; E34.9 Endocrine disorder, unspecified; B96.5 Pseudomonas (aeruginosa) (mallei) (pseudomallei) as the cause of diseases classified elsewhere; B96.20 Unspecified Escherichia coli [E. coli] as the cause of diseases classified elsewhere; Z87.891 Personal history of nicotine dependence; Z96.0 Presence of urogenital implants
CPT/HCPCS: 36415; 36569; 36600; 71045; 74177; 76937; 80048; 80053; 80170; 82805; 82962; 83735; 84100; 84134; 84478; 85007; 85014; 85018; 85025; 85027; 86850; 86900; 86901; 86920; 87070; 87077; 87186; 87205; 88307; 88312; 94002; 94664; 94760; 94799

== ENCOUNTER → 2018-07-08 | Outpatient (CLI) | payer MEDICAID, OTHER ==
[~2018-07-08] MED LIST changes: +AMLO5TAB2 PO; +DOCU-143 PO; +ESTR-85 PO; +LEVO100T7 PO; +LOSA50TA36 PO; -LOSA50TA7 PO; +SENN-36 PO
== END ==
LOC: CARD 13:37
PROVIDERS: ATTEND Internal Medicine Interventional Cardiology
DX: I47.2 Ventricular tachycardia (principal); I10 Essential (primary) hypertension; I48.0 Paroxysmal atrial fibrillation; I34.0 Nonrheumatic mitral (valve) insufficiency
CPT/HCPCS: 93306

== ENCOUNTER 2018-07-15 11:28 | Outpatient (CLI) | payer MEDICAID ==
[~2018-07-15] VITALS: Ht 170.2 cm; Wt 59.6 kg
[~2018-07-15 11:28] MED LIST changes: -AMLO5TAB2 PO; -DOCU-143 PO; -ESTR-85 PO; -LEVO100T7 PO; -SENN-36 PO
[2018-07-15] MEDS ORDERED: ESTR-85 PO (11:42)
[2018-07-15] MEDS ORDERED: AMLO5TAB2 PO (11:42)
[2018-07-15 11:45] VITALS: BP 125/61
[2018-07-15 12:33] LABS: BASOPHILS % (AUTO) 1 % (0-10); EOSINOPHILS # (AUTO) 0.3 10^3/uL (0.0-0.3); EOSINOPHILS % (AUTO) 3 % (0-10); HEMATOCRIT 41 % (35-52); HEMOGLOBIN 13.5 G/DL (11.5-16.0); LYMPHOCYTES # (AUTO) 2.1 X 10^3 (1.0-4.0); LYMPHOCYTES % (AUTO) 27 % (12-44); MEAN CORPUSCULAR HEMOGLOBIN 29 PG (25-34); MEAN CORPUSCULAR HGB CONC 33 G/DL (32-36); MEAN CORPUSCULAR VOLUME 88 FL (80-99); MEAN PLATELET VOLUME 10.4 FL (7.4-10.4); MONOCYTES # (AUTO) 0.5 X 10^3 (0.0-1.0); MONOCYTES % (AUTO) 6 % (0-12); NEUTROPHILS # (AUTO) 5.1 X 10^3 (1.8-7.8); NEUTROPHILS % (AUTO) 64 % (42-75); PLATELET COUNT 278 10^3/uL (130-400); RED BLOOD COUNT 4.66 10^6/uL (4.35-5.85); RED CELL DISTRIBUTION WIDTH 13.7 % (10.0-14.5)
[2018-07-15 12:54] LABS: ALBUMIN 3.9 GM/DL (3.2-4.5); BILIRUBIN,TOTAL 0.4 MG/DL (0.1-1.0); CALCIUM 9.9 MG/DL (8.5-10.1); CREATININE SERUM 0.99 MG/DL (0.60-1.30); POTASSIUM 3.6 MMOL/L (3.6-5.0); TOTAL PROTEIN 6.9 GM/DL (6.4-8.2)
[2018-07-15] MEDS ORDERED: LEVO100T7 PO (14:24)
[2018-07-15] MEDS ORDERED: ESTR1TAB37 PO (14:24)
[2018-07-15] MEDS ORDERED: TERA1CAP3 PO (14:24)
[2018-07-15] MEDS ORDERED: SIMV20TA3 PO (14:24)
[2018-07-15] MEDS ORDERED: SENN-36 PO (15:48)
[2018-07-15] MEDS ORDERED: DOCU-143 PO (15:48)
[2018-07-15] MEDS ORDERED: PROP225T2 PO (15:52)
== END 2018-07-15 15:34 | disposition home or self-care (01) ==
LOC: PREOP 11:28
PROVIDERS: ATTEND Surgery
DX: Z01.812 Encounter for preprocedural laboratory examination (principal); Z11.2 Encounter for screening for other bacterial diseases; K63.1 Perforation of intestine (nontraumatic)
CPT/HCPCS: 36415; 80053; 85025; 86850; 86900; 86901; 87081

== ENCOUNTER 2018-08-26 12:52 | Outpatient (RCR) | payer MEDICAID ==
[2018-08-16 10:50] VITALS: BP 134/68
[2018-08-19 10:20] VITALS: BP 153/70
--- NOTE | 2018-08-23 14:37 | Progress Note-Standard ---
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 Following a brief course of total parenteral nutrition , the fistula is healed with intra-abdominal abscess on the last CT scan. There was no extravasation of the contrast either. Over the last week, her diet has been advanced and TPN discontinued. On examination, there is very minimal slough along the cephalad aspect of the wound which is granulating satisfactorily. The abscess over the colostomy site along the left lower quadrant is also healing satisfactorily. She requested a prescription for Celebrex which I have addressed. In addition, a prescription for 20 tablets of Percocet has also been given. She'll be followed up twice a week until the wound is healed completely. Final Diagnosis enterocutaneous fistula. Resolved sigmoid perforation MACY TALAVERA MD Aug 23, 2018 14:37
[~2018-08-26] VITALS: Ht 170.2 cm; Wt 61.6 kg
[~2018-08-26 12:52] MED LIST changes: +ACHD5005 PO; +AMLO5TAB7 PO; +DOCU-143 PO; +ESTR-85 PO; +LEVO100T7 PO; -LOSA50TA36 PO; +LOSA50TA7 PO; +OXYC1TAB87 PO; +SENN-36 PO; +tpn
== END 2018-08-29 | disposition home or self-care (01) ==
LOC: SDC 12:52
PROVIDERS: ATTEND Surgery
DX: Z48.01 Encounter for change or removal of surgical wound dressing (principal)
CPT/HCPCS: 99211; 99212

== ENCOUNTER 2018-09-20 10:44 | Outpatient (RCR) | payer MEDICAID ==
[2018-08-30 12:00] VITALS: BP 0/0
[2018-09-06 12:30] VITALS: BP 0/0
[2018-09-06 13:06] LABS: ALANINE AMINOTRANSFERASE 30 U/L (0-55); ALBUMIN 3.2 GM/DL (3.2-4.5); ALKALINE PHOSPHATASE 155 U/L (40-136); BILIRUBIN,TOTAL 0.4 MG/DL (0.1-1.0); BUN/CREATININE RATIO 12; CALCIUM 9.4 MG/DL (8.5-10.1); CARBON DIOXIDE 22 MMOL/L (21-32); CHLORIDE 110 MMOL/L (98-107); CREATININE SERUM 0.81 MG/DL (0.60-1.30); GFR ESTIMATED > 60; GLUCOSE 90 MG/DL (70-105); POTASSIUM 2.9 MMOL/L (3.6-5.0); SODIUM 141 MMOL/L (135-145); TOTAL PROTEIN 6.3 GM/DL (6.4-8.2)
[~2018-09-20] VITALS: Ht 170.2 cm; Wt 61.6 kg
[~2018-09-20 10:44] MED LIST changes: +POTASSIUM CHLORIDE INJ 30 MEQ in D5 1/2 NS 1000 ML IV SOLUTION 1,000 ML IV SCH
== END 2018-11-28 | disposition home or self-care (01) ==
LOC: SDC 10:44
PROVIDERS: ATTEND Surgery
DX: Z48.01 Encounter for change or removal of surgical wound dressing (principal)
CPT/HCPCS: 36415; 80053; 84132; 99211; 99212

== ENCOUNTER → 2018-09-23 | Outpatient (CLI) | payer MEDICAID ==
[~2018-09-23] MED LIST changes: -POTASSIUM CHLORIDE INJ 30 MEQ in D5 1/2 NS 1000 ML IV SOLUTION 1,000 ML IV SCH
== END ==
LOC: LAB 11:38
PROVIDERS: ATTEND Surgery
DX: E87.6 Hypokalemia (principal)
CPT/HCPCS: 36415; 84132

== ENCOUNTER → 2019-05-11 | Outpatient (CLI) | payer MEDICAID ==
[~2019-05-11] MED LIST changes: -AMLO5TAB7 PO; +AMLO5TAB9 PO; +LOSA50TA63 PO; -LOSA50TA7 PO
--- NOTE | 2019-05-12 19:25 | Diagnostic Imaging Report ---
INDICATION: Screening. At this time there are no current complaints. EXAMINATION: Bilateral digital screening mammogram with CAD. 3D tomographic images were obtained and reviewed. The current study was also evaluated with a Computer Aided Detection (CAD) system. COMPARISON: This study was compared to the prior exam of 02/29/2016. The current study was also evaluated with a Computer Aided Detection (CAD) system. FINDINGS: The fibroglandular tissue in both breasts is heterogeneously dense. This does limit the sensitivity of this exam. Overall, there does not appear to have been any significant change when compared to the prior study. No primary or secondary sign of malignancy is noted. IMPRESSION: 1. There is no evidence for malignancy. 2. The patient should have her annual screening mammogram on schedule in April of 2020. ACR BI-RADS Category 1: Negative. Result letter will be mailed to the patient. Note: At least 10% of breast cancer is not imaged by mammography. Dictated by: Dictated on workstation # [id number]
== END ==
LOC: RAD 15:18
PROVIDERS: ATTEND Pediatrics
DX: Z12.31 Encounter for screening mammogram for malignant neoplasm of breast (principal)
CPT/HCPCS: 77067

== ENCOUNTER → 2019-05-27 | Outpatient (CLI) | payer MEDICAID ==
[~2019-05-27] MED LIST changes: +HOLD METFORMIN - RECEIVED CONTRAST 20 ML VIAL IV SCH
[2019-05-27 12:09] LABS: CREATININE SERUM 1.01 MG/DL (0.60-1.30)
[2019-05-27] MEDS: IOHEXOL 350 MG/ML 100 ML (OMNIPAQUE 350) VIAL IV ONE (12:44)
[2019-05-27] MEDS: BARIUM SUSPENSION 2.1% (VANILLA SILQ) 450 ML PO ONE (12:44)
[2019-05-27] MEDS: NS 100 ML (IVPB) BAG IV ONE (12:44)
[2019-05-27] MEDS: CATHETER FLUSH 10 ML SYR IV PRN (12:44)
--- NOTE | 2019-05-27 13:10 | Diagnostic Imaging Report ---
PROCEDURE: CT abdomen and pelvis with and without contrast. TECHNIQUE: Precontrast acquisitions were acquired through the abdomen and pelvis. Multiple contiguous axial images were obtained through the abdomen and pelvis after the administration of intravenous contrast. Auto Exposure Controls were utilized during the CT exam to meet ALARA standards for radiation dose reduction. INDICATION: Draining incision, low-grade fever. FINDINGS: There is apparent previous subtotal colectomy. There are inflammatory changes in the right lower quadrant without regional drainable fluid collection. There is left upper quadrant perisplenic and subdiaphragmatic fluid measuring 1.8 cm in maximal thickness. These findings have all improved from the previous study. The subdiaphragmatic perisplenic collection likely tracks medial to the spleen at the upper hilus where that locule measures 4.2 x 3.0 cm. That portion of the fluid is likely slightly larger than on previous. The pancreas appears nonacute and nonfocal. There are no opaque kidney stones. There is no hydronephrosis. There is no bile duct dilatation. There is no extravasation of the enteric contrast media which has reached the distal anastomosis at the rectosigmoid level. No free air. Urinary tracts are unobstructed. There is no bile duct dilatation. IMPRESSION: Right lower quadrant inflammatory changes without drainable fluid collection. Left upper quadrant subdiaphragmatic and perisplenic fluid may be slightly greater at the level of the upper splenic hilus but otherwise unchanged. No free air, bowel obstruction, or contrast extravasation. No urinary or biliary tract obstruction. No convincing adverse development from prior with marked generalized improvements in mesenteric and retroperitoneal inflammatory changes noted on multiple prior studies. Dictated by: Dictated on workstation # [id number]
== END ==
LOC: RAD 11:28
PROVIDERS: ATTEND Surgery
DX: L98.8 Other specified disorders of the skin and subcutaneous tissue (principal); R50.9 Fever, unspecified; Z90.49 Acquired absence of other specified parts of digestive tract
CPT/HCPCS: 36415; 74178; 82565; 84520

== ENCOUNTER → 2022-07-03 | Outpatient (CLI) | payer MEDICAID, MEDICARE ==
[~2022-07-03] MED LIST changes: +AMLO-250 PO; -AMLO5TAB9 PO; +ASPI-1238 PO; -ASPI-983 PO; +BUPR-105 PO; -BUPR150T14 PO; -ESTR-85 PO; -HOLD METFORMIN - RECEIVED CONTRAST 20 ML VIAL IV SCH; -MAGN400T6 PO; +MGX400T PO; +PANT20TA18 PO; -PANT20TA3 PO; +POTA8CAP20 PO; -POTA8CAP9 PO; +SIMV20TA26 PO; -SIMV20TA3 PO; +SYNTEST.HS PO
--- NOTE | 2022-07-03 14:13 | Diagnostic Imaging Report ---
PROCEDURE: US venous upper extremity left. TECHNIQUE: Multiple realtime grayscale images were obtained of left upper extremity in various projections. Additional spectral analysis and color Doppler duplex images were also obtained. INDICATION: Left arm pain and swelling. COMPARISON: None. FINDINGS: Distal left subclavian and axillary veins show incomplete compression and only partial color fill. Additionally, there is suboptimal augmentation. Findings are consistent with partially occlusive thrombus. The left internal jugular, brachial, cephalic, basilic, radial, and ulnar veins have a normal sonographic appearance. These vessels show normal compressibility, augmentation, and color flow. IMPRESSION: 1. Partially occlusive DVT of the left subclavian and axillary vein. Preliminary report was given to urgent care by the performing welder setter electron beam machine at the completion of the exam. Dictated by: Dictated on workstation # [id number]
== END ==
LOC: RAD 12:38
PROVIDERS: ATTEND Family Medicine
DX: I82.622 Acute embolism and thrombosis of deep veins of left upper extremity (principal); I80.8 Phlebitis and thrombophlebitis of other sites; U07.1 COVID-19; I49.9 Cardiac arrhythmia, unspecified; I10 Essential (primary) hypertension; E78.2 Mixed hyperlipidemia; M62.830 Muscle spasm of back; E03.8 Other specified hypothyroidism; M54.59 Other low back pain